=== PATIENT | male | born 1950 | race Caucasian/White ===

== ENCOUNTER 2017-05-01 06:27 | Inpatient (IN) | payer OTHER ==
[~2017-05-01] VITALS: Ht 180.3 cm; Wt 87.5 kg
[~2017-05-01 06:27] MED LIST: ACETAZOLAMIDE250 M1 PO; ALBUTEROL2.5 MG/3 M INH/SOL; ASPIRIN81 M4 PO; AZITHROMYCIN250 MG PO; CARDIZEM CD240 M1 PO; CARDIZEM CD360 MG PO; DELTASONE20 MG PO; DIAMOX SEQUELS500 MG PO; DIGITEK250 MCG PO; DIGOXIN0.25 MG PO; DOK100 MG PO; FERROUS SULFAT325 M1 PO; FERROUS SULFAT325 M2 PO; FLUTICASONE PRO16 GM NAS; FUROSEMIDE20 MG PO; FUROSEMIDE40 M1 PO; GLIMEPIRIDE2 MG PO; GLUCOPHAGE1000 M1 PO; LANOXIN-DIGO0.125 MG PO; LASIX20 M1 PO; LASIX40 M1 PO; LEVEMIR100 U/ML SC; LIPITOR10 M1 PO; LISINOPRIL10 MG PO; METFORMIN HCL1000 M1 PO; METFORMIN HCL500 MG PO; MOXIFLOXACIN H400 M2 PO; NOVOLOG FL100 UNIT/1 SC; NOVOLOG100 U/ML SC; NOVOLOG100 UNIT/2 SC; POTASSIUM CHLO20 ME2 PO; PREDNISONE1 MG; PREDNISONE1 MG PO; PREDNISONE10 M2 PO; PREDNISONE10 MG PO; PREDNISONE20 M1 PO; PREDNISONE5 M1 PO; PROAIR HFA8.5 GM INH; PROTONIX40 M3 PO; SENNA PLUS 50 M1 TAB PO; SPIRIVA18 MCG INH; SYMBICORT 16010.2 GM INH; XARELTO20 M2 PO; ZITHROMAX250 M2 PO
--- NOTE | 2017-05-01 06:32 | NUR ---
PT'S SP02 AT [facility] WAS 82%
--- NOTE | 2017-05-01 06:52 | NUR ---
EKG DONE IN [place] AND SHOWN TO DR. JOSHI, PT TO ERm#11 VIA STRETCHER.
--- NOTE | 2017-05-01 06:55 | NUR ---
SOB SINCE MONDAY WORSE OVER WEEKEND WITH LETHARGY OVER PAST 24 TO 36 HOURS CHEST PAIN WITH NON PRODUCTIVE COUGH, NON RADIATIONAL
--- NOTE | 2017-05-01 07:01 | ED DYSPNEA/ASTHMA COMPLAINT ---
History of Present Illness General Chief Complaint: Dyspnea (COPD, CHF, Other) Stated Complaint: "PER PT SOB, CP" Source: patient, family Exam Limitations: no limitations Vital Signs & Intake/Output Vital Signs & Intake/Output Vital Signs Date Time Temp Pulse Resp B/P B/P Pulse O2 O2 Flow FiO2 Mean Ox Delivery Rate 05/01 1930 80 92 05/01 1830 BIPAP 35% 05/01 1830 86 92/58 05/01 1715 Nasal 3.5L Cannula 05/01 1604 94 BIPAP 35% 05/01 1600 92 BIPAP 35% 05/01 1600 92 BIPAP 35% 05/01 1600 67 92 05/01 1440 99 96 05/01 1430 BIPAP 40% 05/01 1254 112 92 05/01 1252 97.9 107 23 126/75 90 BIPAP 40% 05/01 1233 96.7 104 18 136/84 93 Nasal 5.0L Cannula 05/01 1126 104 18 129/73 92 Nasal 5.0L Cannula 05/01 0930 123 24 155/71 91 Nasal 5.0L Cannula 05/01 0927 90 Nasal 4.0L Cannula 05/01 0731 97.8 123 20 134/75 97 Room Air 05/01 0653 98.7 123 26 139/84 82 Nasal 4.0L Cannula Allergies Coded Allergies: NO KNOWN ALLERGIES (02/05/16) Triage Note: SOB SINCE MONDAY WORSE OVER WEEKEND WITH LETHARGY OVER PAST 24 TO 36 HOURS CHEST PAIN WITH NON PRODUCTIVE COUGH, NON RADIATIONAL Triage Nurses Notes Reviewed? yes Onset: Gradual Duration: day(s):, getting worse, waxing and waning Timing: recent history Severity: moderate Activities at Onset: none Prior Episodes/Possible Cause: occasional episodes Modifying Factors: Improves With: rest. Associated Symptoms: cough HPI: 66 yo gentleman h/o afib, presents with cough, shortness of breath x 4 days, getting worse this morning. He notes chest pain with coughing. He has no syncopal symptoms. His chest pain does not radiate. He is otherwise well. (ADI CR,JOHNNY Lunsford) Reconcile Medications Albuterol Sulfate (Proair Hfa) 90 MCG HFA.AER.AD 2 PUF INH Q4-6 PRN PRN SHORTNESS OF BREATH (Reported) Albuterol Sulfate 2.5 MG/3 ML (0.083 %) VIAL.NEB 1 Vial INH/ABILIO Q4P PRN SHORTNESS OF BREATH (Reported) Aspirin (Aspirin*) 81 MG TAB.CHEW 1 TAB PO DAILY HEART HEALTH (Reported) Atorvastatin Calcium (Lipitor) 10 MG TABLET 1 TAB PO DAILY CHOLESTEROL ( Reported) Budesonide/Formoterol Fumarate (Symbicort 160-4.5 Mcg Inhaler) 160 MCG-4.5 MCG/ ACTUATION HFA.AER.AD 2 PUF INH BID SHORTNESS OF BREATH (Reported) Diltiazem HCl (Cardizem Cd) 240 MG CAP.ER.24H 480 MG PO DAILY Atrial fibrillation Ferrous Sulfate 325 MG TABLET.DR 325 MG PO BID Iron supplement Furosemide (Lasix) 40 MG TABLET 1 TAB PO BID Water pill Insulin Aspart (Novolog) 100 UNIT/1 ML VIAL 0 UNITS SC TIDAC blood sugars <200mg/dl - no insulin 201-250mg/dl - 2units 251-300mg/dl - 4units 301-350mg/dl- 6units 351-400mg/dl - 8units >400mg/dl - 10units Mealtime scale Metformin HCl (Glucophage) 1,000 MG TABLET 1 TAB PO BID DIABETES (Reported) Pantoprazole Sodium (Protonix) 40 MG TABLET.DR 1 TAB PO DAILY ACID REFLUX ( Reported) Rivaroxaban (Xarelto) 20 MG TABLET 1 TAB PO DAILY BLOOD THINNER (Reported) with food Tiotropium [place] (Spiriva) 18 MCG CAP.W.DEV 1 CAP INH DAILY SHORTNESS OF BREATH (Reported) (MICHELLE CR,HUMBERTO) Past History Travel History Traveled to [place] past 21 day No Medical History Any Pertinent Medical History? 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 FATHER, ; Cause: Myocardial infarct. SISTER, ; Cause: Myocardial infarct. Hx Contributory? No (ADI CR,JOHNNY Lunsford) Review of Systems Review of Systems Constitutional: Reports: no symptoms. EENTM: Reports: no symptoms. Respiratory: Reports: no symptoms. Cardiovascular: Reports: no symptoms. GI: Reports: no symptoms. Genitourinary: Reports: no symptoms. Musculoskeletal: Reports: no symptoms. Skin: Reports: no symptoms. Neurological/Psychological: Reports: no symptoms. Hematologic/Endocrine: Reports: no symptoms. Immunologic/Allergic: Reports: no symptoms. All Other Systems: Reviewed and Negative (JOHNNY JOSHI MD) Physical Exam Physical Exam General Appearance: well developed/nourished, mild distress Head: atraumatic, normal appearance Eyes: Bilateral: normal appearance. Ears, Nose, Throat: normal pharynx, normal ENT inspection Neck: normal inspection, supple, full range of motion Respiratory: normal breath sounds, rhonchi Cardiovascular: irregularly irregular, tachycardic Gastrointestinal: normal bowel sounds, soft, non-tender, no organomegaly Extremities: normal inspection Neurologic/Psych: no motor/sensory deficits, awake, alert, oriented x 3 Skin: intact, normal color, warm/dry Core Measures ACS in differential dx? No Severe Sepsis Present: No Septic Shock Present: No (ADI CR,JOHNNY Lunsford) Progress Differential Diagnosis: asthma, AMI, costochondritis, CHF, COPD, pulmonary embolism Plan of Care: Orders Procedure Date/time Status CBC WITHOUT DIFFERENTIAL 05/02 0600 Active BASIC ELECTROLYTES PLUS BUN&CR 05/02 0600 Active Heart Healthy Diet 05/01 L Complete Consistent Carbohydrate 3 05/01 D Active TROPONIN LEVEL 05/01 1800 Active EKG 05/01 1800 Active BIPAP 05/01 1600 Complete Teach/Educate 05/01 1559 Active Pain Treatment and Response 05/01 1559 Active Nutritional Intake, Monitor 05/01 1559 Active Isolation 05/01 1559 Active Patient Care Conference 05/01 1559 Active Activity/Ambulation 05/01 1559 Active CULTURE,URINE 05/01 1503 Active TROPONIN LEVEL 05/01 1300 Complete EKG 05/01 1300 Active RT: Reevaluation 05/01 1254 Active RT: Evaluation 05/01 1254 Active CULTURE,URINE 05/01 1236 Active Add-on Test (ER Only) 05/01 1153 Active Weight 05/01 1110 Active Intake & Output 05/01 1110 Complete FingerStick- Glucose 05/01 1107 Active ECHOCARDIOGRAM 05/01 1107 Active TRC EVALUATION (GEN) 05/01 1104 Complete LEGIONELLA URINARY ANTIGEN 05/01 1104 Complete LOWER RESPIRATORY CULTURE 05/01 1104 Active BLOOD CULTURE 05/01 1104 Active Add-on Test (ER Only) 05/01 1054 Active Pathway - chart 05/01 0952 Active House Staff 05/01 0952 Active Patient Data 05/01 0952 Active Code Status 05/01 0952 Active Patient Data 05/01 0944 Active ED Holding Orders 05/01 0942 Active Admit to inpatient 05/01 0942 Active Vital Signs 05/01 0942 Active Code Status 05/01 0942 Complete Intake & Output 05/01 0930 Active LEGIONELLA URINARY ANTIGEN 05/01 0930 Complete RT ED ORDERS 05/01 0926 Active URINALYSIS 05/01 0838 Complete BLOOD CULTURE 05/01 0703 Active B-TYPE NATRIURETIC PEP (BNP) 05/01 0700 Complete TROPONIN LEVEL 05/01 0648 Complete PARTIAL THROMBOPLASTIN TIME 05/01 0648 Complete PROTHROMBIN TIME 05/01 0648 Complete LIPASE 05/01 0648 Complete HEPATIC FUNCTION PANEL 05/01 0648 Complete CBC WITHOUT DIFFERENTIAL 05/01 0648 Complete BASIC METABOLIC PANEL 05/01 0648 Complete AMYLASE 05/01 0648 Complete EKG 05/01 0631 Active THERAPIST ORDERS 05/01 UNK Complete OXYGEN SETUP (GEN) 05/01 UNK Complete BIPAP 05/01 UNK Complete ARTERIAL BLOOD GAS (GEN) 05/01 UNK Complete ARTERIAL BLOOD GAS (GEN) 05/01 UNK Active VTE Mechanical Prophylaxis 05/01 UNK Active Telemetry/Dispensary Clerk 05/01 UNK Active Nursing Misc 05/01 UNK Active Streeter, Insertion/Removal/Asses 05/01 UNK Active Current Medications Sig/Eve Start time Last Medication Dose Stop Time Status Admin Atorvastatin Calcium 10 MG 1700 05/02 1700 AC (Lipitor) Aspirin 81 MG DAILY 05/02 1000 AC (Aspirin) Diltiazem HCl 480 MG DAILY 05/02 1000 AC (Cardizem CD) Rivaroxaban 20 MG DAILY 05/02 1000 AC (Xarelto) Tiotropium [place] 1 PUF DAILY 05/02 1000 AC (Spiriva) Furosemide 40 MG 7:30 AM, & 4:30 PM 05/02 0730 AC (Lasix) Omeprazole 40 MG DAILY AC 05/02 0700 AC (Prilosec) Budesonide/ 2 PUF BID 05/01 2200 AC Formoterol Fumarate (Symbicort) Ferrous Sulfate 325 MG BID 05/01 2200 AC (Feosol) Furosemide 40 MG BID 05/01 2200 CAN (Lasix) Furosemide 40 MG 7:30 AM, & 4:30 PM 05/01 1630 AC 05/01 (Lasix) 05/01 2300 1740 Albuterol Sulfate 3 ML EVERY 4 HRS/AWAKE 05/01 1600 AC 05/01 (Proventil) 2010 Methylprednisolone 40 MG Q8 05/01 1400 AC 05/01 (Solumedrol) 1433 Insulin Aspart 0 TIDAC 05/01 1200 AC 05/01 (NovoLOG) 1739 Diltiazem HCl 125 MG Q24H 05/01 1145 AC 05/01 (Cardizem DRIP) 1150 Sodium Chloride 100 ML (Normal Saline 0.9%) Albuterol Sulfate 2 PUF Q4-6 PRN PRN 05/01 1115 AC (Ventolin) Albuterol Sulfate 3 ML Q4P PRN 05/01 1115 AC (Proventil) Azithromycin 500 MG DAILY 05/01 1105 AC 05/01 (Zithromax) 1216 Sodium Chloride 250 ML (Normal Saline 0.9%) Ceftriaxone Sodium 1,000 MG DAILY 05/01 1105 AC 05/01 (Rocephin) 1149 Acetaminophen 325 MG Q6 PRN 05/01 1000 AC (Tylenol) Morphine Sulfate 1 MG Q4 PRN 05/01 1000 AC (Morphine) Oxycodone HCl 5 MG Q6 PRN 05/01 1000 AC (Roxicodone) Laboratory Tests 05/01/177: Troponin I Pending 05/01/17 1710: pH 7.34 L, pCO2 54 H, pO2 70 L, HCO3 28, ABG O2 Sat (Measured) 93.0 L, P-50 (Temp Corrected) N, Carboxyhemoglobin 0.3 L, O2 Concentration % 35%, Temperature 97.9, Respiration Rate 22, O2 Delivery Method BIPAP, Vent Mode ST, Expiratory Pressure 6, Inspiratory Pressure 18, Phlebotomy Draw Site LEFT BRACHIAL 05/01/17 1435: Troponin I 0.03 05/01/17 1200: pH 7.28 *L, pCO2 65 *H, pO2 78 L, HCO3 30 H, ABG O2 Sat (Measured) 95.0 L, Carboxyhemoglobin 1.4 L, O2 Concentration % 5L, O2 Delivery Method NC, Phlebotomy Draw Site LEFT RADIAL 05/01/17 1046: Non-O-Fuxynimulvj Pept Cancelled 05/01/17 0930: Urine Color YEL, Urine Clarity CLEAR, Urine pH 6.0, Ur Specific [place] 1.015, Urine Protein NEG, Urine Ketones NEG, Urine Nitrite NEG, Urine Bilirubin NEG, Urine Urobilinogen 0.2, Ur Leukocyte Esterase NEG, Ur Microscopic EXAM NOT REQUIRED, Urine Hemoglobin NEG, Urine Glucose NEG 05/01/17 0700: Anion Gap 11, Estimated GFR 55 L, BUN/Creatinine Ratio 17.7, Glucose 131 H, Calcium 9.0, Total Bilirubin 0.5, Direct Bilirubin 0.3, AST 12 L, ALT 38, Alkaline Phosphatase 89, Troponin I 0.03, Bwk-O-Tcmooyfzthr Pept 90398 H, Total Protein 6.0 L, Albumin 3.5, Amylase < 30 L, Lipase 12 L, PT 24.1 H, INR 2.31 H, APTT 39 H, CBC w Diff MAN DIFF ORDERED, RBC 3.38 L, MCV 84.4, MCH 27.0, RDW 16.2 H, MPV 8.5, Gran % 85.7 H, Lymphocytes % 6.2 L, Monocytes % 7.8, Eosinophils % 0.1, Basophils % 0.2, Absolute Granulocytes 12.1 H, Absolute Lymphocytes 0.9 L, Absolute Monocytes 1.1 H, Absolute Eosinophils 0, Absolute Basophils 0, Platelet Estimate ADEQUATE, Hypochromic-Microcytic 1+, Poikilocytosis 1+, Anisocytosis 1+, PUBS MCHC 32.0 L Microbiology 05/01 1503 URINE ROUT: Urine Culture - COLB 05/01 1500 URINE ROUT: Urine Culture - RECD 05/01 1500 URINE ROUT: Legionella Antigen - COMP 05/01 1125 BLOOD: Blood Culture - RECD 05/01 1118 BLOOD: Blood Culture - RECD 05/01 1104 LOWER RESP: Respiratory Culture - COLB 05/01 1104 LOWER RESP: Gram Stain - COLB 06/12 0930 URINE ROUT: Legionella Antigen - COMP 05/01 703 BLOOD: Blood Culture - ORD 05/01 700 BLOOD: Blood Culture - CAN Cancelled: Quantity not sufficient for both blood culture bottles. 8:[address] ZUNIGA PAGEStevie FOR ADMISSION. 9:30 AM D/W DR NEWBERRY. HOSPITALIST PAGED. (MICHELLE CR,HUMBERTO) Diagnostic Imaging: Viewed by Me: Radiology Read. Discussed w/RAD: Radiology Read. Initial ED EKG: afib, rapid ventricular response Hand-Off Endorsed To: HUMBERTO MARTINEZ MD Endorsed Time: 07 Pending: labs, Xray (ADI CR,JOHNNY Lunsford) Diagnostic Imaging: Viewed by Me: CT Scan. Discussed w/RAD: CT Scan. Radiology Impression: CT CHEST - LEFT SIDED PNEUMONIA, INCREASED LEFT PLEURAL EFFUSION, STABLE LYMPHADENOPATHY CXR Impression: PATIENT: COURTNEY MURCIA PRESENT AGE: 66 PATIENT ACCOUNT NO: [id number] : 49 LOCATION: [facility] ORDERING PHYSICIAN: JOHNNY JOSHI MD SERVICE DATE: 05/01/17 EXAM TYPE: RAD - XRY- PORTABLE CHEST XRAY EXAMINATION: XR PORTABLE CHEST CLINICAL INFORMATION: Dyspnea COMPARISON: Chest radiograph 08/09/[address] thorax 2015. TECHNIQUE: Portable AP upright view of the chest was obtained. FINDINGS: The cardiac silhouette is enlarged without change from prior. Dense retrocardiac opacification is unchanged in comparison to prior as are the chronic interstitial markings bilaterally and emphysematous change in the right lung. Chronic blunting of the costophrenic angles is more notable on the right side. No obvious superimposed process. IMPRESSION: Extensive underlying chronic changes limits evaluation. There remains dense retrocardiac opacification and extensive interstitial changes throughout the bilateral lungs. If there is a high index of clinical concern, follow-up CT of the thorax could be obtained. DICTATED BY: KAYLA CABRERA MD DATE/TIME DICTATED:05/01/17739 NETWORK PROJECT MANAGER:LINDY DATE/TIME TRANSCRIBED:05/01/17739 CONFIDENTIAL, DO NOT COPY WITHOUT APPROPRIATE AUTHORIZATION. <Electronically signed in Other Vendor System> SIGNED BY: KAYLA CABRERA MD 05/01/1747 (HUMBERTO MARTINEZ MD) Departure Departure Disposition: STILL A PATIENT Condition: Stable Referrals: IRMA LANZA (PCP/Family) Departure Forms: Customer Survey General Discharge Information (ADI CR,JOHNNY Lunsford) Departure Time of Disposition: 939 Clinical Impression Primary Impression: Atrial fibrillation with rapid ventricular response Secondary Impressions: COPD exacerbation, Pneumonia Admission Note Spoke With: DEEPIKA CR,HOMERO Schuster Documentation of Exam: Documentation of any treatments & extenuating circumstances including Concerns Regarding Discharge (functional status, medication knowledge or non-compliance, living conditions, etc.) that warrant an admission rather than observation: [ TELE MONITOR, SERIAL EKG/TROPONIN, F/U CT CHEST RESULTS, CARDIOLOGY CONSULTATION , PULMONARY CONSULTATION, CONSIDER ECHOCARDIOGRAM] (HUMBERTO MARTINEZ MD) Critical Care Note Critical Care Note Critical Care Time: non-applicable (ADI CR,JOHNNY Lunsford) Critical Care Note Critical Care Time: 30-74 min (HUMBERTO MARTINEZ MD)
--- NOTE | 2017-05-01 07:05 | NUR ---
SOB AT REST, PLACED ON 5 LITERS NC ON WALL PT TANK IS LOW. GIVEN BACK HER TUBING
[2017-05-01 07:22] LABS: ABSOLUTE BASOPHIL COUNT 0 /CUMM (0.0-0.2); ABSOLUTE EOSINOPHIL COUNT 0 /CUMM (0.0-0.7); ABSOLUTE GRANULOCYTE CT 12.1 /CUMM (1.4-6.5); ABSOLUTE LYMPH COUNT 0.9 /CUMM (1.2-3.4); ABSOLUTE MONOCYTE COUNT 1.1 /CUMM (0.10-0.60); BASOPHIL % 0.2 % (0.0-2.0); EOSINOPHIL % 0.1 % (0-5); GRANULOCYTE % 85.7 % (42.2-75.2); HEMATOCRIT 28.5 % (42-52); MEAN CORPUSCULAR VOLUME 84.4 FL (80.0-94.0); MEAN PLATELET VOLUME 8.5 FL (7.4-10.4); PLATELET COUNT 242 /CUMM (130-400); RBC DISTRIBUTION WIDTH 16.2 % (11.5-14.5); RED BLOOD CELL CT 3.38 /CUMM (4.70-6.10); WHITE BLOOD CELL COUNT 14.1 /CUMM (4.8-10.8)
--- NOTE | 2017-05-01 07:24 | NUR ---
PER LAB POOR FILL ON 1ST SET BLOOD CULTURES. GOLDEN HUDSON RN AWARE.
--- NOTE | 2017-05-01 07:47 | RADIOLOGY REPORT ---
EXAMINATION: XR PORTABLE CHEST CLINICAL INFORMATION: Dyspnea COMPARISON: Chest radiograph 08/09/[address] thorax 08/09/2016. TECHNIQUE: Portable AP upright view of the chest was obtained. FINDINGS: The cardiac silhouette is enlarged without change from prior. Dense retrocardiac opacification is unchanged in comparison to prior as are the chronic interstitial markings bilaterally and emphysematous change in the right lung. Chronic blunting of the costophrenic angles is more notable on the right side. No obvious superimposed process. IMPRESSION: Extensive underlying chronic changes limits evaluation. There remains dense retrocardiac opacification and extensive interstitial changes throughout the bilateral lungs. If there is a high index of clinical concern, follow-up CT of the thorax could be obtained.
--- NOTE | 2017-05-01 07:52 | NUR ---
ASSUMED CARE OF PT WHO IS SLEEPING AT THIS TIME WITH REGULAR RESPIRATIONS AND EQUAL CHEST RISE AND FALL NOTED. SAT 94-96% ON 5L. DENIES PAIN. REMAINS AFIB ON MONITOR, RATE 120'S PER MD MICHELLE, NO NEED TO DRAW BC AT THIS TIME AWAITING RAIN ORTIZ FROM PHARMACY AT THIS TIME.
--- NOTE | 2017-05-01 08:08 | NUR ---
MED WITH ASA, LASIX AND SOLU MEDROL PER JAN. PT STATES "I FEEL GOOD, BETTER". SAT 95% ON 5L (BASELINE 4L AT HOME PER PT) URINAL AT BEDSIDE AWARE AWAITING CT SCAN THIS MORNING
--- NOTE | 2017-05-01 08:30 | NUR ---
CONTINUE TO AWAIT CARDIRUDDYM DRIP PER PHARMACY, ELECTRONICS SPECIALIST PICKING UP AT THIS TIME
[2017-05-01 08:38] LABS: PT 24.1 SEC (9.4-12.5); PTT 39 SEC (25-37)
--- NOTE | 2017-05-01 08:41 | NUR ---
CARDIZEM DRIP INITIATED AT THIS TIME, 10MG/HR - 10 ML/HR PER MD MARTINEZ. MED AND DOSE VERIFIED WITH RN DEA Jain/Freddie PRIOR 138/73. HR 108-122 PT REQUESTING AND GIVEN CUP OF WATER - OK WITH . AWAITING CT SCAN.
--- NOTE | 2017-05-01 09:29 | NUR ---
TAKEN TO CT SCAN. HR PRIOR LOW 100'S. DURING CT SCAN, WITH PT LAYING FLAT, PT BECAME VERY SOB WITH INCREASED WORK OF BREATHING AND ABDOMINAL RETRACTIONS NOTED. REQUESTING MORE 02. BROUGHT BACK TO ROOM 11 AND MET IN ROOM BY RT Alfa ARAGON IN PROGRESS PER MD MICHELLE. HR UP TO 120'S-130'S CARDIZEM DRIP CONTINUES AT 10MG/HR AT THIS TIME PER MD.
--- NOTE | 2017-05-01 09:48 | NUR ---
PT REPORTS IMPROVEMENT IN BREATHING S/P [place] MED WITH PO CARDIZEM AND PO XARELTO PER JAN. PT AND BOTH CONFIRM DOSES OF MEDICATIONS AND STATE PT HAS NOT TAKEN TODAY. SOUP ORDERED PER REQUEST, OK WITH HR NOW 100-120.
--- NOTE | 2017-05-01 10:55 | NUR ---
HR NOW LOW 100'S. DRIP MAINTAINED AT 10 MG/HR.
--- NOTE | 2017-05-01 10:59 | History & Physical ---
MCKAYLAYADIRANICOLE 05/01/17 1035: General Information and HPI MD Statement: I have seen and personally examined COURTNEY VIEIRA and documented this H&P. The patient is a 66 year old M who presented with a patient stated chief complaint of [shortness of breath]. Source of Information: patient, family, old records Exam Limitations: no limitations History of Present Illness: Mr. 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 Patient reports that he had a blood draw on (04/27/17) and since that day started having dry cough and shortness of breath. His dyspnea worsened over the day and called his reading efficiency course director Dr. Banks's office regarding the same. He took prednisone as per his reading efficiency course director recommendation for 3 days, 40mg(Mon), 40mg (Mon)and 30mg(Mon) with no improvement in his respiratory status. He denied any fever, chills, productive cough, nausea, vomiting, headache, urinary or bowel symptoms. He does endorse atypical chest discomfort, which started yesterday in the center of this chest, and lasted for about 1 hour. There was no radiation, and no associated diaphoresis. He feels it's more likely secondary to intense coughing which has been going on. Denies any recent sick contacts, recent travel, and noncompliance to medications. In the ED vitals at presentation showed a temperature of 98.7, pulse 123, respiration 26, blood pressure 139/84, saturating 82% on 4 L nasal cannula. Labs showed a white count of 14.4 with no bands, H&H 9.1/28.5(chronic), sodium 143, potassium 3.7, BUN 23, creatinine 1.3 (baseline 0.7), troponin 0.03, proBNP pending, INR 2.31, UA benign. EKG showed: A. fib with a rate of 148, nonsignificant ST changes, QTC 515 Chest x-ray showed dense retrocardiac opacification and extensive interstitial changes throughout bilateral lungs which are all chronic. Patient received 40 IV Lasix, 125 Solu-Medrol, aspirin, nebulizer treatment in the ED and was started on a Cardizem drip. Allergies/Medications Allergies: Coded Allergies: NO KNOWN ALLERGIES (02/05/16) Home Med list Albuterol Sulfate (Proair Hfa) 90 MCG HFA.AER.AD 2 PUF INH Q4-6 PRN PRN SHORTNESS OF BREATH (Reported) Albuterol Sulfate 2.5 MG/3 ML (0.083 %) VIAL.NEB 1 Vial INH/ABILIO Q4P PRN SHORTNESS OF BREATH (Reported) Aspirin (Aspirin*) 81 MG TAB.CHEW 1 TAB PO DAILY HEART HEALTH (Reported) Atorvastatin Calcium (Lipitor) 10 MG TABLET 1 TAB PO DAILY CHOLESTEROL ( Reported) Budesonide/Formoterol Fumarate (Symbicort 160-4.5 Mcg Inhaler) 160 MCG-4.5 MCG/ ACTUATION HFA.AER.AD 2 PUF INH BID SHORTNESS OF BREATH (Reported) Diltiazem HCl (Cardizem Cd) 240 MG CAP.ER.24H 480 MG PO DAILY Atrial fibrillation Ferrous Sulfate 325 MG TABLET.DR 325 MG PO BID Iron supplement Furosemide (Lasix) 40 MG TABLET 1 TAB PO BID Water pill Insulin Aspart (Novolog) 100 UNIT/1 ML VIAL 0 UNITS SC TIDAC blood sugars <200mg/dl - no insulin 201-250mg/dl - 2units 251-300mg/dl - 4units 301-350mg/dl- 6units 351-400mg/dl - 8units >400mg/dl - 10units Mealtime scale Metformin HCl (Glucophage) 1,000 MG TABLET 1 TAB PO BID DIABETES (Reported) Pantoprazole Sodium (Protonix) 40 MG TABLET.DR 1 TAB PO DAILY ACID REFLUX ( Reported) Rivaroxaban (Xarelto) 20 MG TABLET 1 TAB PO DAILY BLOOD THINNER (Reported) with food Tiotropium [place] (Spiriva) 18 MCG CAP.W.DEV 1 CAP INH DAILY SHORTNESS OF BREATH (Reported) Past History Travel History Traveled to [place] past 21 day No Medical History Neurological: NONE EENT: NONE Cardiovascular: AFIB, CHF, hypertension, hyperlipidemia Respiratory: COPD, 3-3.5L O2 DEPENDENT BIPAP AT NIGHT Gastrointestinal: GERD, ABD ANEURYSM Hepatic: NONE Renal: NONE Musculoskeletal: NONE Psychiatric: NONE Endocrine: diabetes Blood Disorders: NONE Cancer(s): NONE SUPERVISOR FILM PROCESSING/Reproductive: NONE History of MRSA: No History of VRE: No History of CDIFF: No Pneumonia Vaccine: 04/22/16 Surgical History Surgical History: cataract removal, PROSTATE SURGERY AAA TONSILLECTOMY Past Family/Social History Family History Relations & Conditions if any MOTHER, ; Cause: COPD (chronic obstructive pulmonary disease). FATHER, ; Cause: Myocardial infarct. SISTER, ; Cause: Myocardial infarct. Psychosocial History Who Do You Live With? self Services at Home: None Primary Language: Chinese Functional Ability ADLs Independent: dressing, eating, toileting, bathing. Ambulation: independent IADLs Independent: shopping, housework, finances, food prep, telephone, transportation , medication admin. Review of Systems Review of Systems Constitutional: Reports: malaise, weakness. EENTM: Reports: no symptoms. Cardiovascular: Reports: no symptoms. Respiratory: Reports: short of breath, wheezing. GI: Reports: no symptoms. Genitourinary: Reports: no symptoms. Musculoskeletal: Reports: no symptoms. Skin: Reports: no symptoms. Neurological/Psychological: Reports: no symptoms. Exam & Diagnostic Data Last 24 Hrs of Vital Signs/I&O Vital Signs Date Time Temp Pulse Resp B/P B/P Pulse O2 O2 Flow FiO2 Mean Ox Delivery Rate 05/01 0930 123 24 155/71 91 Nasal 5.0L Cannula 05/01 0927 90 Nasal 4.0L Cannula 05/01 0731 97.8 123 20 134/75 97 Room Air 05/01 0653 98.7 123 26 139/84 82 Nasal 4.0L Cannula Intake & Output 05/01 1600 05/01 0800 05/01 0000 Intake Total Output Total 200 Balance -200 Output, Urine 200 Patient 83.915 kg Weight Weight Reported by Patient Measurement Method Physical Exam General Appearance Alert, Oriented X3, Cooperative, Moderate Distress Skin No Rashes, No Breakdown, No Significant Lesion Skin Temp/Moisture Exam: Warm/Dry Sepsis Skin Exam (color): Normal for Ethnicity HEENT Atraumatic, PERRLA, nasal cannula Neck Supple, No JVD Lymphatic Cervical nl Cardiovascular Normal S1, Normal S2, irregularly irregular HR Lungs DECREASED AIR ENTRY BILATERALLY, OCCASIONAL WHEEZING Abdomen Normal Bowel Sounds, Soft Neurological Strength at 5/5 X4 Ext, Normal Tone Extremities No Clubbing, No Cyanosis, No Edema Last 24 Hrs of Labs/Sridhar: Laboratory Tests 05/01/17 0930: Urine Color YEL, Urine Clarity CLEAR, Urine pH 6.0, Ur Specific Axis 1.015, Urine Protein NEG, Urine Ketones NEG, Urine Nitrite NEG, Urine Bilirubin NEG, Urine Urobilinogen 0.2, Ur Leukocyte Esterase NEG, Ur Microscopic EXAM NOT REQUIRED, Urine Hemoglobin NEG, Urine Glucose NEG 05/01/17 0700: Anion Gap 11, Estimated GFR 55 L, BUN/Creatinine Ratio 17.7, Glucose 131 H, Calcium 9.0, Total Bilirubin 0.5, Direct Bilirubin 0.3, AST 12 L, ALT 38, Alkaline Phosphatase 89, Troponin I 0.03, Total Protein 6.0 L, Albumin 3.5, Amylase < 30 L, Lipase 12 L, PT 24.1 H, INR 2.31 H, APTT 39 H, CBC w Diff MAN DIFF ORDERED, RBC 3.38 L, MCV 84.4, MCH 27.0, RDW 16.2 H, MPV 8.5, Gran % 85.7 H, Lymphocytes % 6.2 L, Monocytes % 7.8, Eosinophils % 0.1, Basophils % 0.2, Absolute Granulocytes 12.1 H, Absolute Lymphocytes 0.9 L, Absolute Monocytes 1.1 H, Absolute Eosinophils 0, Absolute Basophils 0, Platelet Estimate ADEQUATE, Hypochromic-Microcytic 1+, Poikilocytosis 1+, Anisocytosis 1+ , PUBS MCHC 32.0 L Microbiology 05/01 703 BLOOD: Blood Culture - ORD 05/01 07 BLOOD: Blood Culture - CAN Cancelled: Quantity not sufficient for both blood culture bottles. Assessment/Plan Assessment: Mr. 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 In the ED vitals at presentation showed a temperature of 98.7, pulse 123, respiration 26, blood pressure 139/84, saturating 82% on 4 L nasal cannula. Labs showed a white count of 14.4 with no bands, H&H 9.1/28.5(chronic), sodium 143, potassium 3.7, BUN 23, creatinine 1.3 (baseline 0.7), troponin 0.03, ProBNP level 38760, INR 2.31, UA benign. AB. EKG showed: A. fib with a rate of 148, nonsignificant ST changes, QTC 515 Chest x-ray showed dense retrocardiac opacification and extensive interstitial changes throughout bilateral lungs which are all chronic. Patient received 40 IV Lasix, 125 Solu-Medrol, aspirin, nebulizer treatment in the ED and was started on a Cardizem drip. Plan #1 Acute hypoxic hypercarbic respiratory failure likely secondary to COPD exacerbation vs PNA Vs CHF -Admit patient to telemetry for close monitoring -Vitals per protocol -AB start BIPAP( patient uses nocturnal bipap) -Maintain saturations above 92% -Received 125 SoluMedrol in the ED. Continue 40 every 8 hours for now. -Continue nocturnal BiPAP -TRC nebs [id number] -Continue home medications Symbicort and Spiriva -At this time there appears to be no infectious process, however will give patient 1 dose of ceftriaxone and azithromycin given questionable retrocardiac opacity on chest x-ray -Obtain blood cultures, sputum cultures -Urine for strep and legionella -Pulmonology consult with Dr. Banks #2 Atrial fibrillation with rapid RVR: Likely secondary to worsening dyspnea. Patient does not appear to be in florid heart failure at this point given euvolemic exam. -Patient started on a Cardizem drip in the ED. Continue to home medication Cardizem 480 daily along with the drip so that it can be titrated off. Pt got 480 mg in ED. -Continue Xarelto for anticoagulation.Got today's dose. -3 sets of troponin and EKG to rule out ACS -Cardiology consult with Dr. Walton has been placed #3 History of heart failure with reduced ejection fraction patient appears euvolemic and exam at this point.No pulmonary edema on chest x-ray -Last echo 2015 showed EF 45%, decreased global function, RV pressure 45 mm -ProBNP level 17160 -Pt got IV 40 mg in the ED, continue 40 MG iv today and PO from tomorrow. Closely monitor renal function. -Strict I's and O's , weight checks -3 sets of troponin and EKG to rule out ACS -Repeat echocardiogram -Cardiology is consult with Dr. Walton #4 Diabetes mellitus -3 times a day Accu-Cheks -Hold metformin -NovoLog sliding scale #5 Acute kidney injury: Creatinine 1.3 at presentation. Baseline 0.7 -Closely monitor the BeP. We'll hold off on any fluids at this time. -Avoid nephrotoxins #6 Microcytic anemia -Chronic -Continue iron tablets #7 Hyperlipidemia -Continue home medications DVT prophylaxis Xarelto Full code Diabetic diet As Ranked By This Provider Problem List: 1. COPD exacerbation 2. Atrial fibrillation with rapid ventricular response 3. CHF (congestive heart failure) 4. HTN (hypertension) 5. Hyperlipidemia Core Measures/Miscellaneous Acute Coronary Syndrome ACS Diagnosis: No Cerebrovascular Accident CVA/TIA Diagnosis: No Congestive Heart Failure CHF Diagnosis: No VTE (View Protocol) VTE Risk Factors: Age > 40 No [facility] VTE prophylaxis d/t: No contraindications No VTE Pharm Prophylaxis d/t: VTE low risk (on xarelto), No contraindications VTE Diagnosis: No VTE Type: NONE VTE Confirmed by (Test): NONE Sepsis (View Protocol) Severe Sepsis Present: No Septic Shock Septic Shock Present: No Miscellaneous Documentation Attending Case Discussed With: AMALIA KRAMER M.D Primary Care Physician: IRMA LANZA Patient sees these Specialists dr banks Level of Patient Care: Telemetry AMALIA KRAMER MD 05/01/17 1704: Attending Review Statement Attending Statement Attending MD Statement: examined this patient, discuss w/resident/PA/INFANT NANNY, agreed w/resident/PA/INFANT NANNY, reviewed EMR data (avail), discussed with nursing, discussed with case mgmt, amended to note Attending Assessment/Plan: 66-year-old male with history of oxygen dependent advanced COPD on BiPAP therapy at bedtime only, atrial fibrillation on anticoagulation. according to the patient's he has been having progressive lethargy for the past 3-4 days. He has also been getting progressively more short of breath. Over the weekend his reading efficiency course director called in a prescription of prednisone however he did not get better His condition worsened and was brought to the emergency room for evaluation. In the emergency room was found to be in acute hypoxic respiratory failure and atrial fibrillation with rapid ventricular rate. He was started on BiPAP therapy and referred to the inpatient medical service for further management. On examination patient is lethargic but oriented 3. He did not appear to be in respiratory distress. BiPAP therapy was in place. Lungs were clear to auscultation. Heart sounds were irregular. Abdomen soft and nontender. He has trace pedal edema. He had mild ecchymotic areas on his upper extremities. Problems: 1. Acute hypercapnic respiratory failure 2. COPD exacerbation 3. Atrophic relation rapid ventricular rate 4. Diabetes mellitus 5. Hypertension 6. Acute kidney injury 7. Chronic systolic dysfunction. Plan: -Admit to the inpatient general medical service. -Continue telemetry monitoring. -Continue BiPAP therapy as directed by the pulmonology service. Bronchodilator therapy every 4 hours and as needed. IV steroids with Solu-Medrol 40 mg every 8 hours. -Chest CT shows worsening left-sided pneumonia, small left pleural effusion and stable diffuse mediastinal lymphadenopathy. Fortunately patient is afebrile. He does have leukocytosis as well. Continue antibiotic therapy with ceftriaxone /azithromycin. -Rate has improved with IV Cardizem. Continue infusion. Continue anticoagulation with Xarelto. Follow-up recommendations of the cardiology service. - admits that oral intake has been poor. This is likely the cause of his acute kidney injury. We'll avoid IV hydration in view of his chronic systolic dysfunction. Monitor renal function closely.
--- NOTE | 2017-05-01 11:23 | NUR ---
BOTH SETS OF BC DRAWN AND SENT
--- NOTE | 2017-05-01 11:27 | NUR ---
FINGERSTICK 277 - PT STATES HIS SUGARS ALWAYS GO UP WITH STEROIDS. STATES HE TAKES METFORMIN AT HOME. OFFERS NO COMPLAINTS AND STATES HIS BREATHING IS BETTER SAT 92% ON 5L. HR MAINTAINS AT LOW 100'S (100-120). PER MD MARTINEZ, LEAVE DRIP AT 10MG/HR AT THIS TIME
--- NOTE | 2017-05-01 11:47 | CT SCAN REPORT ---
EXAMINATION: CT CHEST WITHOUT CONTRAST CLINICAL INFORMATION: Dyspnea and hypoxia. Evaluate for pneumonia. COMPARISON: Previous chest CT scans, most recent 08/09/2016 and chest CTA January 2016. TECHNIQUE: Multidetector volumetric CT imaging of the chest was done. Axial MIP volume rendering provided. Sagittal and coronal reformatted images were obtained. DLP: 308 mGy-cm FINDINGS: MITIGATION SUPERVISOR: Worsening left-sided airspace disease, greatest in the left lower lobe. Emphysema with a large bulla at the right lung base. LUNGS: There are numerous new patchy round areas of airspace disease seen in the left upper lobe compared to the most recent exam of July 2016. Largest areas measure approximately 1.5 x 2 cm. There are increasing coalescent parenchymal opacities, some peribronchial in distribution, and bronchial wall thickening in the left lower lobe, probably representing bronchopneumonia. There are new patchy ground-glass opacities seen in the right upper lobe. There is increasing atelectasis/consolidation and cystic change, possibly representing cicatrization bronchiectasis, in the lateral segment of the right middle lobe (axial image 46, series 3). There is a stable peripheral parenchymal opacity in the lateral right lower lobe (axial image 47 and 48, series 3). Previously identified patchy areas of airspace disease in the posterior basal segment of the right lower lobe appear improved compared to the July 2016 exam. There is emphysematous change with a large cyst or a bulla at the right lung base measuring 6.6 x 10.8 cm. MEDIASTINUM: The thyroid gland is enlarged and extends substernally into the chest. There is diffuse mediastinal lymphadenopathy. This does not appear appreciably changed from previous exams. Largest lymph node is an AP window lymph node measuring 9 x 22 mm (axial image 22, series 2). The pulmonary derek appear prominent, however, on review of the CTA of January 2016 this probably represents enlarged pulmonary arteries. The heart is enlarged. There is no pericardial effusion. There is coronary artery calcification. PLEURA: There is a small left pleural effusion. This has slightly increased in size compared to previous exams. AXILLAE: There are shotty bilateral axillary lymph nodes. No enlarged axillary lymph nodes are seen. There is bilateral gynecomastia. UPPER ABDOMEN: An aortic stent graft is partially visualized. Images through the upper abdomen are otherwise unremarkable. OSSEOUS STRUCTURES: There are degenerative changes of the spine. IMPRESSION: Worsening left-sided pneumonia. Small left pleural effusion slightly increased in size from previous exam. Stable diffuse mediastinal lymphadenopathy. Enlarged heart and coronary artery calcification.
--- NOTE | 2017-05-01 11:48 | NUR ---
HR HAS REMAINED 90'S TO LOW 100'S PER MD MARTINEZ, CARDIZEM DRIP LOWERED TO 5 MG/HR. MED/DOSE/PUMP VERIFIED WITH CARLY MALIN. SECONDARY IV ESTABLISHED. MED WITH [facility] PER JAN.
--- NOTE | 2017-05-01 11:55 | NUR ---
RT PAGED FOR ORDERED ABG
--- NOTE | 2017-05-01 12:06 | NUR ---
REPORT GIVEN TO TELE NURSE AWAITING RT FOR ABG AND THEN TRANSPORT TO FLOOR.
--- NOTE | 2017-05-01 12:16 | NUR ---
ABG COMPLETED. ZITHROMAX INFUSING PER MAR. HR REMAINS 90'S TO LOW 100'S - CARDIZIEM KEPT AT 5MG/HR. AWAITING TRANSPORT.
--- NOTE | 2017-05-01 12:34 | NUR ---
PT TRANSPORTED TO [facility] WITH CARLY LOVE, ON MONITOR RATE 90'S-100'S (108 AT TIME OF DEPARTURE). ZITHROMAX INFUSING IN LW IV @ 250ML/HR CARDIZIEM INFUSING IN RW IV @ 5ML/HR. PT ALERT, CONVERSANT AND WITHOUT COMPLAINTS. SAT 93% ON 5L.
[2017-05-01 12:52] VITALS: BP 126/75
--- NOTE | 2017-05-01 15:37 | Cons- Cardiology ---
General Information and HPI Consulting Request Date of Consult: 05/01/17 Requested By: AMALIA KRAMER M.D Reason for Consult: Rapid atrial fibrillation in the setting of pneumonia on top of severe end-stage COPD. Source of Information: patient, old records Exam Limitations: no limitations History of Present Illness: Courtney Vieira is a 66-year-old male with severe end stage COPD and chronic atrial fibrillation for several ears. I have seen him a couple of times in the hospital, most recently 08/09/2016. I also saw him about 6 months prior when he presented with atrial fibrillation with bradycardia and elevated digoxin level, and we eventually just took him off digoxin. He has mostly been hospitalized for exacerbation of COPD. In July 2016 he presented with exacerbation of COPD, hypercapnic respiratory failure, and anasarca. He was diuresed with Lasix intravenously twice a day and sent home on 40 mg b.i.d. orally. He has been on Xarelto for some time for atrial fibrillation. He is also on chronic oxygen at 4 liters, aspirin, Lipitor, and diltiazem now 480 mg daily for rate control. He has been following up in the COPD/CHF clinic but no longer needs IV lasix there. He is pretty limited in terms of his activity because of the COPD. His last echocardiogram in the hospital showed mild left ventricular dilatation with LVH and an ejection fraction of 45%. He also had right ventricle and right atrial dilatation, and left atrial dilatation. He had mild to moderate mitral regurgitation and a pulmonary artery pressure of about 45 mmHg. I last saw him in the office in February 2017 at which time he was doing pretty well. He had no cardiac complaints and his heart rate was acceptable. He was doing well until a few days ago when he began getting more short of breath which became worse today and he came to the emergency room. Evaluation showed him to be in rapid atrial fibrillation although he states he has been taking his medications regularly. He was also in moderate hypercapneic respiratory failure. Subsequently his heart rate has come down with treatment and also IV Cardizem drip. His x-ray and CT scan of the chest are difficult to read in terms of congestive heart failure but his BNP was significantly elevated at 12,800. He was given some Lasix in the emergency department. He is not describing any chest pain, palpitations, dizziness, edema. Allergies/Medications Allergies: Coded Allergies: NO KNOWN ALLERGIES (02/05/16) Home Med List: Albuterol Sulfate (Proair Hfa) 90 MCG HFA.AER.AD 2 PUF INH Q4-6 PRN PRN SHORTNESS OF BREATH (Reported) Albuterol Sulfate 2.5 MG/3 ML (0.083 %) VIAL.NEB 1 Vial INH/ABILIO Q4P PRN SHORTNESS OF BREATH (Reported) Aspirin (Aspirin*) 81 MG TAB.CHEW 1 TAB PO DAILY HEART HEALTH (Reported) Atorvastatin Calcium (Lipitor) 10 MG TABLET 1 TAB PO DAILY CHOLESTEROL ( Reported) Budesonide/Formoterol Fumarate (Symbicort 160-4.5 Mcg Inhaler) 160 MCG-4.5 MCG/ ACTUATION HFA.AER.AD 2 PUF INH BID SHORTNESS OF BREATH (Reported) Diltiazem HCl (Cardizem Cd) 240 MG CAP.ER.24H 480 MG PO DAILY Atrial fibrillation Ferrous Sulfate 325 MG TABLET. 325 MG PO BID Iron supplement Furosemide (Lasix) 40 MG TABLET 1 TAB PO BID Water pill Insulin Aspart (Novolog) 100 UNIT/1 ML VIAL 0 UNITS SC TIDAC blood sugars <200mg/dl - no insulin 201-250mg/dl - 2units 251-300mg/dl - 4units 301-350mg/dl- 6units 351-400mg/dl - 8units >400mg/dl - 10units Mealtime scale Metformin HCl (Glucophage) 1,000 MG TABLET 1 TAB PO BID DIABETES (Reported) Pantoprazole Sodium (Protonix) 40 MG TABLET. 1 TAB PO DAILY ACID REFLUX ( Reported) Rivaroxaban (Xarelto) 20 MG TABLET 1 TAB PO DAILY BLOOD THINNER (Reported) with food Tiotropium [place] (Spiriva) 18 MCG CAP.W.DEV 1 CAP INH DAILY SHORTNESS OF BREATH (Reported) Current Medications: Current Medications Sig/Eve Start time Last Medication Dose Route Stop Time Status Admin Acetaminophen 325 MG Q6 PRN 05/01 1000 AC PO Albuterol Sulfate 3 ML EVERY 4 HRS/AWAKE 05/01 1600 AC INH Albuterol Sulfate 2 PUF Q4-6 PRN PRN 05/01 1115 AC INH Albuterol Sulfate 3 ML Q4P PRN 05/01 1115 AC INH Aspirin 81 MG DAILY 05/02 1000 AC PO Aspirin 0 .STK-MED ONE 05/01 0804 DC PO Aspirin 325 MG ONCE ONE 05/01 0800 DC 05/01 PO 05/01 0801 0807 Atorvastatin Calcium 10 MG 1700 05/02 1700 AC PO Azithromycin 500 MG DAILY 05/01 1105 AC 05/01 Sodium Chloride 250 ML IV 1216 Budesonide/ 2 PUF BID 05/01 2200 AC Formoterol Fumarate INH Ceftriaxone Sodium 0 .STK-MED ONE 05/01 1137 DC .ROUTE Ceftriaxone Sodium 1,000 MG DAILY 05/01 1105 AC 05/01 IV 1149 Diltiazem HCl 480 MG DAILY 05/02 1000 AC PO Diltiazem HCl 125 MG Q24H 05/01 1145 AC 05/01 Sodium Chloride 100 ML IV 1150 Diltiazem HCl 480 MG DAILY 05/01 1000 DC 05/01 PO 0948 Diltiazem HCl 125 MG Q12H 05/01 0715 DC 05/01 Sodium Chloride 100 ML IV 05/02 0714 0844 Ferrous Sulfate 325 MG BID 05/01 2200 AC PO Furosemide 40 MG 7:30 AM, & 4:30 PM 05/02 0730 AC PO Furosemide 40 MG BID 05/01 2200 CAN PO Furosemide 40 MG 7:30 AM, & 4:30 PM 05/01 1630 AC IV PUSH 05/01 2300 Furosemide 0 .STK-MED ONE 05/01 0804 DC IV Furosemide 40 MG ONCE ONE 05/01 0800 DC 05/01 IV 05/01 0801 0807 Insulin Aspart 0 TIDAC 05/01 1200 AC 05/01 SC 1139 Ipratropium [place] 2.5 ML ONCE ONE 05/01 0930 DC 05/01 INH 05/01 0931 0929 Methylprednisolone 40 MG Q8 05/01 1400 AC 05/01 IV 1433 Methylprednisolone 0 .STK-MED ONE 05/01 0804 DC .ROUTE Methylprednisolone 125 MG ONCE ONE 05/01 0800 DC 05/01 IV 05/01 0801 0807 Morphine Sulfate 1 MG Q4 PRN 05/01 1000 AC IV Omeprazole 40 MG DAILY AC 05/02 0700 AC PO Oxycodone HCl 5 MG Q6 PRN 05/01 1000 AC PO Rivaroxaban 20 MG DAILY 05/02 1000 AC PO Rivaroxaban 20 MG DAILY 05/01 1000 DC 05/01 PO 0948 Tiotropium [place] 1 PUF DAILY 05/02 1000 AC INH Review of Systems Review of Systems: His only complaint is shortness of breath and cough Past History Travel History Traveled to [place] past 21 day No Medical History Neurological: NONE EENT: NONE Cardiovascular: AFIB, CHF, hypertension, hyperlipidemia Respiratory: COPD, 3-3.5L O2 DEPENDENT BIPAP AT NIGHT Gastrointestinal: GERD, ABD ANEURYSM Hepatic: NONE Renal: NONE Musculoskeletal: NONE Psychiatric: NONE Endocrine: diabetes Blood Disorders: NONE Cancer(s): NONE 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 FATHER, ; Cause: Myocardial infarct. SISTER, ; Cause: Myocardial infarct. Psychosocial History Who Do You Live With? self Services at Home: None Primary Language: [place] Smoking Status: Former Smoker Functional Ability ADLs Independent: dressing, eating, toileting, bathing. Ambulation: independent IADLs Independent: shopping, housework, finances, food prep, telephone, transportation , medication admin. Exam & Diagnostic Data Vital Signs and I&O Vital Signs Date Time Temp Pulse Resp B/P B/P Pulse O2 O2 Flow FiO2 Mean Ox Delivery Rate 05/01 1440 99 96 05/01 1430 BIPAP 40% 05/01 1254 112 92 05/01 1252 97.9 107 23 126/75 90 BIPAP 40% 05/01 1233 96.7 104 18 136/84 93 Nasal 5.0L Cannula 05/01 1126 104 18 129/73 92 Nasal 5.0L Cannula 05/01 0930 123 24 155/71 91 Nasal 5.0L Cannula 05/01 0927 90 Nasal 4.0L Cannula 05/01 0731 97.8 123 20 134/75 97 Room Air 05/01 0653 98.7 123 26 139/84 82 Nasal 4.0L Cannula Intake & Output 05/01 1600 05/01 0800 05/01 0000 04/30 1600 04/30 0800 04/30 0000 Intake Total Output Total 600 Balance -600 Output, Urine 600 Patient 185 lb Weight Weight Reported by Patient Measurement Method Physical Exam: On exam he is elderly-appearing chronically ill appearing man on BiPAP in mild respiratory distress HEENT exam is normal to limited exam because of the BiPAP Neck veins are not distended Chest reveals markedly decreased breath sounds and some rhonchi Heart reveals irregularly irregular rhythm at a normal rate with no murmurs Abdomen is benign Extremities reveal trace to 1+ edema of the lower extremities Labs/Sridhar Results: Laboratory Tests 05/01 05/01 05/01 1435 1200 1046 Blood Gas pH (7.35 - 7.45 PH) 7.28 *L pCO2 (35 - 45 TORR) 65 *H pO2 (80 - 100 TORR) 78 L HCO3 (21 - 28 MEQ/L) 30 H ABG O2 Sat (Measured) (>96.0 %) 95.0 L Carboxyhemoglobin (1.5 - 5.0 %) 1.4 L O2 Concentration % 5L O2 Delivery Method NC Chemistry Troponin I Pending Sqy-F-Xjafgsobsev Pept Cancelled Miscellaneous Phlebotomy Draw Site LEFT RADIAL 05/01 05/01 0930 0700 Chemistry Sodium (137 - 145 mmol/L) 143 Potassium (3.5 - 5.1 mmol/L) 3.7 Chloride (98 - 107 mmol/L) 101 Carbon Dioxide (22 - 30 mmol/L) 31 H Anion Gap (5 - 16) 11 BUN (9 - 20 mg/dL) 23 H Creatinine (0.7 - 1.2 mg/dL) 1.3 H Estimated GFR (>60 ml/min) 55 L BUN/Creatinine Ratio (7 - 25 %) 17.7 Glucose (65 - 99 mg/dL) 131 H Calcium (8.4 - 10.2 mg/dL) 9.0 Total Bilirubin (0.2 - 1.3 mg/dL) 0.5 Direct Bilirubin (< 0.4 mg/dL) 0.3 AST (17 - 59 U/L) 12 L ALT (21 - 72 U/L) 38 Alkaline Phosphatase (< 127 U/L) 89 Troponin I (<0.11 ng/ml) 0.03 Oqc-G-[id number] Pept (<125 pg/mL) 02750 H Total Protein (6.3 - 8.2 g/dL) 6.0 L Albumin (3.5 - 5.0 g/dL) 3.5 Amylase (30 - 110 U/L) < 30 L Lipase (23 - 300 U/L) 12 L Coagulation PT (9.4 - 12.5 SEC) 24.1 H INR (0.90 - 1.17) 2.31 H APTT (25 - 37 SEC) 39 H Hematology CBC w Diff MAN DIFF ORDERED WBC (4.8 - 10.8 /CUMM) 14.1 H RBC (4.70 - 6.10 /CUMM) 3.38 L Hgb (14.0 - 18.0 G/DL) 9.1 L Hct (42 - 52 %) 28.5 L MCV (80.0 - 94.0 FL) 84.4 MCH (27.0 - 31.0 PG) 27.0 RDW (11.5 - 14.5 %) 16.2 H Plt Count (130 - 400 /CUMM) 242 MPV (7.4 - 10.4 FL) 8.5 Gran % (42.2 - 75.2 %) 85.7 H Lymphocytes % (20.5 - 51.1 %) 6.2 L Monocytes % (1.7 - 9.3 %) 7.8 Eosinophils % (0 - 5 %) 0.1 Basophils % (0.0 - 2.0 %) 0.2 Absolute Granulocytes (1.4 - 6.5 /CUMM) 12.1 H Absolute Lymphocytes (1.2 - 3.4 /CUMM) 0.9 L Absolute Monocytes (0.10 - 0.60 /CUMM) 1.1 H Absolute Eosinophils (0.0 - 0.7 /CUMM) 0 Absolute Basophils (0.0 - 0.2 /CUMM) 0 Platelet Estimate (ADEQUATE) ADEQUATE Hypochromic-Microcytic 1+ Poikilocytosis 1+ Anisocytosis 1+ PUBS MCHC (33.0 - 37.0 G/DL) 32.0 L Urines Urine Color (YEL,AMB,STR) YEL Urine Clarity (CLEAR) CLEAR Urine pH (5.0 - 8.0) 6.0 Ur Specific Murphy (1.001 - 1.035) 1.015 Urine Protein (NEG,<30 MG/DL) NEG Urine Ketones (NEG) NEG Urine Nitrite (NEG) NEG Urine Bilirubin (NEG) NEG Urine Urobilinogen (0.1 - 1.0 EU/dl) 0.2 Ur Leukocyte Esterase (NEG) NEG Ur Microscopic EXAM NOT REQUIRED Urine Hemoglobin (NEG) NEG Urine Glucose (N MG/DL) NEG Diagnostic Data CXR Results PATIENT: COURTNEY VIIERA PRESENT AGE: 66 PATIENT ACCOUNT NO: [id number] : 49 LOCATION: [facility] ORDERING PHYSICIAN: JOHNNY JOSHI MD SERVICE DATE: 05/01/17 EXAM TYPE: RAD - XRY-PORTABLE CHEST XRAY EXAMINATION: XR PORTABLE CHEST CLINICAL INFORMATION: Dyspnea COMPARISON: Chest radiograph 08/09/[address] thorax 08/09/2016. TECHNIQUE: Portable AP upright view of the chest was obtained. FINDINGS: The cardiac silhouette is enlarged without change from prior. Dense retrocardiac opacification is unchanged in comparison to prior as are the chronic interstitial markings bilaterally and emphysematous change in the right lung. Chronic blunting of the costophrenic angles is more notable on the right side. No obvious superimposed process. IMPRESSION: Extensive underlying chronic changes limits evaluation. There remains dense retrocardiac opacification and extensive interstitial changes throughout the bilateral lungs. If there is a high index of clinical concern, follow-up CT of the thorax could be obtained. DICTATED BY: KAYLA CABRERA MD DATE/TIME DICTATED:05/01/17739 BILLET EXAMINER:HENDERSON DATE/TIME TRANSCRIBED:05/01/17739 CONFIDENTIAL, DO NOT COPY WITHOUT APPROPRIATE AUTHORIZATION. <Electronically signed in Other Vendor System> SIGNED BY: KAYLA CABRERA MD 05/01/17 0747 Other Results MPRESSION: Worsening left-sided pneumonia. Small left pleural effusion slightly increased in size from previous exam. Stable diffuse mediastinal lymphadenopathy. Enlarged heart and coronary artery calcification. DICTATED BY: DANICA BAKER MD DATE/TIME DICTATED:05/01/17948 BILLET EXAMINER:HENDERSON DATE/TIME TRANSCRIBED:05/01/17948 CONFIDENTIAL, DO NOT COPY WITHOUT APPROPRIATE AUTHORIZATION. <Electronically signed in Other Vendor System> SIGNED BY: DANICA BAKER MD. 1147 Assessment/Plan Assessment/Plan Courtney presents with respiratory failure and worsening pneumonia per his CAT scan, he also has small pleural effusion. On presentation he was in rapid atrial fibrillation but this has improved on IV Cardizem. Most likely his increased heart rate was due to the respiratory failure and hopefully this will improve once once this improves and we can put him back on his usual dose of Cardizem and taper him off of IV Cardizem. I would continue him on Eliquis which he tolerates well. I would recommend a follow-up echocardiogram to compare particularly pulmonary artery pressure. Copies To: ROBERTO CARLOS CR,EDWIN; VICENTE CR,KELSIE Consult Acknowledgment - Thank you for your consult request.
--- NOTE | 2017-05-01 16:00 | NUR ---
PT ADMITTTED TO TELEMETRY, AWAKE BUT TIRED, GENERALIZED WEAKNESS. MOVES ALL EXTREMETIES EQUALLY WITH GOOD STRENGTH AND PULSES X 4. PT AFIB ON THE MONITOR 90'S ON CARDIZEM GTT AT 5 MG, FURTHER TITRATED TO 2.5MG PER DR MACARIO HERNANDEZ, WHEN NOTIFIED PT HR DECREASED TO 60'S. PT RECIEVED ON 5LNC, HAD INCREASED LABORED BREATHING AND RR 30-40'S. RT PLACED ON BIPAP 40%, RR 18 18/6, FURTHER TITRATED DOWN TO 35% 18/6 RR 22. LUNGS DIMINISHED, WHEEZING NOTED. JAIMES PLACED, 350 ML OF CLEAR YELLOW URINE OUT AND UC SENT. PT STARTED ON SOLUMEDROL IV, ZITHROMAX FINISHED INFUSING AND REPEAT TROPONIN AND EKGS OBTAINED.
--- NOTE | 2017-05-01 17:04 | Admission Certification ---
Admission Certification Certification Statement - As attending physician, I certify that at the time of - admission, based on clinical presentation, severity of - symptoms, need for further diagnostic testing and - therapeutic interventions, and risk of adverse outcomes - without in-hospital treatment, in my clinical assessment, - this patient requires an acute hospital stay for a minimum - of two nights or longer. I have also considered psychsocial - factors such as support system, advanced age, financial - issues, cognitive issues, and failed out-patient treatments, - past re-admission history, safety of patient, and lack of - compliance as applicable. Specific rationale supporting this admission is: Admit to the inpatient medical service for management of his acute hypoxic/ hypercapnic respiratory failure
[2017-05-01 18:30] VITALS: BP 92/58
[2017-05-02 00:20] VITALS: BP 94/60
--- NOTE | 2017-05-02 07:24 | PN- Housestaff ---
See Addendum Subjective Follow-up For: - Acute hypoxic hypercarbic respiratory failure 2/2 COPD exacerbation vs CAP PNA vs CHF - Afib with RVR ON Xarelto - [place] - DM Complaints: no complaints Tele-Events Since Last Visit: Afib 80-94bpm. Subjective: Patient seen and examined at bedside. He is on BiPAP. Eager to eat and so requesting to be off of it. Denies nay chest pain, palpitations, nausea, vomiting. Repeat ABG done yesterday showed improvement. Review of Systems Constitutional: Denies: chills, fever. EENTM: Denies: visual changes. Cardiovascular: Denies: chest pain, palpitations, peripheral edema. Respiratory: Denies: cough, short of breath, wheezing. Gastrointestinal: Denies: abdominal pain, constipation, diarrhea, nausea, vomiting. Genitourinary: Reports: no symptoms. Musculoskeletal: Reports: no symptoms. Neurological/Psychological: Denies: headache, numbness, tingling, tremors. Objective Last 24 Hrs of Vital Signs/I&O Vital Signs Date Time Temp Pulse Resp B/P B/P Pulse O2 O2 Flow FiO2 Mean Ox Delivery Rate 05/02 0042 88 98 05/02 0020 98.6 93 24 94/60 94 BIPAP 35% 05/02 0000 92 BIPAP 35% 05/01 2255 90 91 05/01 1930 80 92 05/01 1830 BIPAP 35% 05/01 1830 86 92/58 05/01 1715 Nasal 3.5L Cannula 05/01 1604 94 BIPAP 35% 05/01 1600 92 BIPAP 35% 05/01 1600 92 BIPAP 35% 05/01 1600 67 92 05/01 1440 99 96 05/01 1430 BIPAP 40% 05/01 1254 112 92 05/01 1252 97.9 107 23 126/75 90 BIPAP 40% 05/01 1233 96.7 104 18 136/84 93 Nasal 5.0L Cannula 05/01 1126 104 18 129/73 92 Nasal 5.0L Cannula 05/01 0930 123 24 155/71 91 Nasal 5.0L Cannula 05/01 0927 90 Nasal 4.0L Cannula 05/01 0731 97.8 123 20 134/75 97 Room Air Intake & Output 05/02 0800 06/13 0000 05/01 1600 Intake Total 120 400 540 Output Total 720 722 6650 Balance -280 -150 -1110 Intake, IV 50 300 Intake, Oral 120 350 240 Number 0 0 Bowel Movements Output, Urine 130 128 6175 Patient 183 lb Weight Weight Reported by Patient Measurement Method Physical Exam General Appearance: Alert, Oriented X3, Cooperative, No Acute Distress, on bipap HEENT: Atraumatic, PERRLA, EOMI, Mucous Membr. moist/pink Neck: Supple, No JVD, No thryomegaly, +2 Carotid Pulse wo Bruit, No LAD Cardiovascular: Regular Rate, Normal S1, Normal S2, No Murmurs Lungs: mild wheezes bilaterally Abdomen: Normal Bowel Sounds, Soft, No Tenderness Neurological: no gross neuro deficits Extremities: No Clubbing, No Cyanosis, Normal Pulses, No Tenderness/Swelling, b/ l chronic venous stasis changes, 1+ edema Current Medications: Current Medications Sig/Eve Start time Last Medication Dose Route Stop Time Status Admin Acetaminophen 325 MG Q6 PRN 05/01 1000 AC PO Albuterol Sulfate 3 ML EVERY 4 HRS/AWAKE 05/01 1600 AC 05/01 INH 2010 Albuterol Sulfate 2 PUF Q4-6 PRN PRN 05/01 1115 AC INH Albuterol Sulfate 3 ML Q4P PRN 05/01 1115 AC INH Aspirin 81 MG DAILY 05/02 1000 AC PO Aspirin 0 .STK-MED ONE 05/01 0804 DC PO Aspirin 325 MG ONCE ONE 05/01 0800 DC 05/01 PO 05/01 0801 0807 Atorvastatin Calcium 10 MG 1700 05/02 1700 AC PO Azithromycin 500 MG DAILY 05/01 1105 AC 05/01 Sodium Chloride 250 ML IV 1216 Budesonide/ 2 PUF BID 05/01 2200 AC 05/01 Formoterol Fumarate INH 2154 Ceftriaxone Sodium 0 .STK-MED ONE 05/01 1137 DC .ROUTE Ceftriaxone Sodium 1,000 MG DAILY 05/01 1105 AC 05/01 IV 1149 Diltiazem HCl 480 MG DAILY 05/02 1000 AC PO Diltiazem HCl 125 MG Q24H 05/01 1145 AC 05/01 Sodium Chloride 100 ML IV 1150 Diltiazem HCl 480 MG DAILY 05/01 1000 DC 05/01 PO 0948 Diltiazem HCl 125 MG Q12H 05/01 0715 DC 05/01 Sodium Chloride 100 ML IV 05/02 0714 0844 Ferrous Sulfate 325 MG BID 05/01 2200 AC 05/01 PO 2154 Furosemide 40 MG 7:30 AM, & 4:30 PM 05/02 0730 AC PO Furosemide 40 MG BID 05/01 2200 CAN PO Furosemide 40 MG 7:30 AM, & 4:30 PM 05/01 1630 DC 05/01 IV PUSH 05/01 2300 1740 Furosemide 0 .STK-MED ONE 05/01 0804 DC IV Furosemide 40 MG ONCE ONE 05/01 0800 DC 05/01 IV 05/01 0801 0807 Insulin Aspart 0 TIDAC 05/01 1200 AC 05/01 SC 1739 Ipratropium [place] 2.5 ML ONCE ONE 05/01 0930 DC 05/01 INH 05/01 0931 0929 Methylprednisolone 40 MG Q8 05/01 1400 AC 05/02 IV 0557 Methylprednisolone 0 .STK-MED ONE 05/01 0804 DC .ROUTE Methylprednisolone 125 MG ONCE ONE 05/01 0800 DC 05/01 IV 05/01 0801 0807 Morphine Sulfate 1 MG Q4 PRN 05/01 1000 AC IV Omeprazole 40 MG DAILY AC 05/02 0700 AC PO Oxycodone HCl 5 MG Q6 PRN 05/01 1000 AC PO Rivaroxaban 20 MG DAILY 05/02 1000 AC PO Rivaroxaban 20 MG DAILY 05/01 1000 DC 05/01 PO 0948 Tiotropium [place] 1 PUF DAILY 05/02 1000 AC INH Last 24 Hrs of Lab/Sridhar Results Last 24 Hrs of Labs/Mics: Laboratory Tests 05/01/177: Troponin I 0.03 05/01/17 1710: pH 7.34 L, pCO2 54 H, pO2 70 L, HCO3 28, ABG O2 Sat (Measured) 93.0 L, P-50 (Temp Corrected) N, Carboxyhemoglobin 0.3 L, O2 Concentration % 35%, Temperature 97.9, Respiration Rate 22, O2 Delivery Method BIPAP, Vent Mode ST, Expiratory Pressure 6, Inspiratory Pressure 18, Phlebotomy Draw Site LEFT BRACHIAL 05/01/17 1435: Troponin I 0.03 05/01/17 1200: pH 7.28 *L, pCO2 65 *H, pO2 78 L, HCO3 30 H, ABG O2 Sat (Measured) 95.0 L, Carboxyhemoglobin 1.4 L, O2 Concentration % 5L, O2 Delivery Method NC, Phlebotomy Draw Site LEFT RADIAL 05/01/17 1046: Aob-V-Yxkoslwwmgi Pept Cancelled 05/01/17 0930: Urine Color YEL, Urine Clarity CLEAR, Urine pH 6.0, Ur Specific [place] 1.015, Urine Protein NEG, Urine Ketones NEG, Urine Nitrite NEG, Urine Bilirubin NEG, Urine Urobilinogen 0.2, Ur Leukocyte Esterase NEG, Ur Microscopic EXAM NOT REQUIRED, Urine Hemoglobin NEG, Urine Glucose NEG Microbiology 05/01 1503 URINE ROUT: Urine Culture - CAN Cancelled: DUP.ORDER 05/01 1500 URINE ROUT: Urine Culture - RECD 05/01 1500 URINE ROUT: Legionella Antigen - COMP 05/01 1125 BLOOD: Blood Culture - RECD 05/01 1118 BLOOD: Blood Culture - RECD 05/01 1104 LOWER RESP: Respiratory Culture - COLB 05/01 1104 LOWER RESP: Gram Stain - COLB 05/01 0930 URINE ROUT: Legionella Antigen - COMP Orders Fingersticks (last 24 hrs): 277, 197, 279 ECHO Findings: Pending Radiology Findings: SERVICE DATE: 05/01/17 EXAM TYPE: RAD - XRY-PORTABLE CHEST XRAY FINDINGS: The cardiac silhouette is enlarged without change from prior. Dense retrocardiac opacification is unchanged in comparison to prior as are the chronic interstitial markings bilaterally and emphysematous change in the right lung. Chronic blunting of the costophrenic angles is more notable on the right side. No obvious superimposed process. IMPRESSION: Extensive underlying chronic changes limits evaluation. There remains dense retrocardiac opacification and extensive interstitial changes throughout the bilateral lungs. If there is a high index of clinical concern, follow-up CT of the thorax could be obtained. SERVICE DATE: 05/01/17 EXAM TYPE: CAT - CT CHEST WO IV CONTRAST FINDINGS: CUSTOMER RELATIONS ADVISOR: Worsening left-sided airspace disease, greatest in the left lower lobe. Emphysema with a large bulla at the right lung base. LUNGS: There are numerous new patchy round areas of airspace disease seen in the left upper lobe compared to the most recent exam of July 2016. Largest areas measure approximately 1.5 x 2 cm. There are increasing coalescent parenchymal opacities, some peribronchial in distribution, and bronchial wall thickening in the left lower lobe, probably representing bronchopneumonia. There are new patchy ground-glass opacities seen in the right upper lobe. There is increasing atelectasis/consolidation and cystic change, possibly representing cicatrization bronchiectasis, in the lateral segment of the right middle lobe (axial image 46, series 3). There is a stable peripheral parenchymal opacity in the lateral right lower lobe (axial image 47 and 48, series 3). Previously identified patchy areas of airspace disease in the posterior basal segment of the right lower lobe appear improved compared to the July 2016 exam. There is emphysematous change with a large cyst or a bulla at the right lung base measuring 6.6 x 10.8 cm. MEDIASTINUM: The thyroid gland is enlarged and extends substernally into the chest. There is diffuse mediastinal lymphadenopathy. This does not appear appreciably changed from previous exams. Largest lymph node is an AP window lymph node measuring 9 x 22 mm (axial image 22, series 2). The pulmonary derek appear prominent, however, on review of the CTA of January 2016 this probably represents enlarged pulmonary arteries. The heart is enlarged. There is no pericardial effusion. There is coronary artery calcification. PLEURA: There is a small left pleural effusion. This has slightly increased in size compared to previous exams. AXILLAE: There are shotty bilateral axillary lymph nodes. No enlarged axillary lymph nodes are seen. There is bilateral gynecomastia. UPPER ABDOMEN: An aortic stent graft is partially visualized. Images through the upper abdomen are otherwise unremarkable. OSSEOUS STRUCTURES: There are degenerative changes of the spine. IMPRESSION: Worsening left-sided pneumonia. Small left pleural effusion slightly increased in size from previous exam. Stable diffuse mediastinal lymphadenopathy. Enlarged heart and coronary artery calcification. Assessment/Plan Assessment: In summary this is a 66-year-old gentleman with PMH significant for COPD(on 4L of O2 at baseline with nightime BiPAP - very compliant), DM, HTN, TIA, atrial fibrillation (on diltiazem and xarelto), HFrEF(EF 45%, decreased global function , RV pressure 45 mm) presented to on 05/01/17 for progressively worsening shortness of breath. Vitals on admission, afebrile, pulse 123, respiration 26, blood pressure 139/84, saturating 82% on 4 L nasal cannula. Labs showed a white count of 14.4 with no bands, H&H 9.1/28.5(chronic), sodium 143, potassium 3.7, BUN 23, creatinine 1.3 (baseline 0.7), troponin 0.03, proBNP 75961, INR 2.31, UA benign. EKG showed: A. fib with a rate of 148, nonsignificant ST changes, QTC 515 Chest x-ray showed dense retrocardiac opacification and extensive interstitial changes throughout bilateral lungs which are all chronic. Patient received 40 IV Lasix, 125 Solu-Medrol, ASA, nebulizer treatment in the ED and was started on a Cardizem drip and admitted to Telemetry for further management for his RVR and placed on NIV for hypoxic, hypercarbic respiratory failure. Assessment and Plan #Acute on chronic hypoxic and hypercarbic respiratory failure. Most likely 2/2 PNA (CT revealed radiological signs concerning for PNA) vs COPD exacerbation versus CHF (pt was euvolemic on exam) Will continue Ceftriaxone and Azithromycin for now. Try to give trial off BiPAP ,and place on high flow or nasal cannula to maintain sats > 88% F/U LRC of any Would taper Solumedrol to 40mg BID IV F/U pulm consult with Dr. So. ACS was ruled out with troponins and EKG negative for any acute changes. TRC/ Nebs # Atrial Fibrillation with rapid RVR - Most likely 2/2 PNA - Was on Cardizem drip, HR much better controlled now, will D/C Cardizem drip. - Continue Cardizem 480mg daily. - F/U Echo to r/o RWMA, and F/U cardio recs #[place] Most likely pre-renal since patient was diuresed with IV Laisx 40mg BID yesterday and is in almost 1300mls net negative fluid balance. he already received 40mg of Lasix this am. Will hold the evening dose and check BEP in AM #4 Diabetes mellitus -3 times a day Accu-Cheks -Hold metformin - Continue NovoLog sliding scale #6 Microcytic anemia -Chronic (most likely 2/2 -Continue iron tablets #7 Hyperlipidemia -Continue home medications DVT prophylaxis Xarelto Full code Diabetic diet Problem List: 1. Atrial fibrillation with rapid ventricular response 2. Pneumonia Pain Ratin Pain Location: NA Pain Goal: Remain pain free Pain Plan: TYLENOL, ROXICODONE, MORPHINE Tomorrow's Labs & Rationales: BEP - serum creatinine DVT/Prophylaxis: mechanical, pharmacological
[2017-05-02 08:26] VITALS: BP 118/70
[2017-05-02 08:39] LABS: ABSOLUTE BASOPHIL COUNT 0 /CUMM (0.0-0.2); ABSOLUTE EOSINOPHIL COUNT 0 /CUMM (0.0-0.7); ABSOLUTE LYMPH COUNT 0.4 /CUMM (1.2-3.4); ABSOLUTE MONOCYTE COUNT 0.3 /CUMM (0.10-0.60); BASOPHIL % 0.1 % (0.0-2.0); EOSINOPHIL % 0 % (0-5); HEMATOCRIT 26.2 % (42-52); MEAN CORPUSCULAR HGB 26.8 PG (27.0-31.0); MEAN CORPUSCULAR HGB CONC 31.7 G/DL (33.0-37.0); MEAN CORPUSCULAR VOLUME 84.4 FL (80.0-94.0); MEAN PLATELET VOLUME 8.9 FL (7.4-10.4); PLATELET COUNT 220 /CUMM (130-400); RBC DISTRIBUTION WIDTH 16.1 % (11.5-14.5); WHITE BLOOD CELL COUNT 8.7 /CUMM (4.8-10.8)
[2017-05-02 09:46] LABS: GRANULOCYTE % 92.2 % (42.2-75.2)
--- NOTE | 2017-05-02 11:15 | Cons- Pulmonary ---
BECKA CR,PATRICIA 05/02/17 1041: General Information and HPI Consulting Request Date of Consult: 05/02/17 Requested By: Dr. Garcia Reason for Consult: COPD exacerbation Source of Information: patient, old records History of Present Illness: 66-year-old man with acute on chronic hypercarbic respiratory failure, end-stage COPD on 4 L of oxygen at baseline at home, with BiPAP at night, atrial fibrillation on Xarelto, diabetes, hypertension presented from home complaining of dry cough with shortness of breath. He tried prednisone taper over the weekend with no improvement in symptoms and worsening shortness of breath. During admission he was found to be in rapid atrial fibrillation, was placed on Cardizem drip, with his rate now controlled. He has been aggressively diuresed and reports feeling better this morning. He is now at his baseline oxygen requirements. Allergies/Medications Allergies: Coded Allergies: NO KNOWN ALLERGIES (02/05/16) Home Med List: Albuterol Sulfate (Proair Hfa) 90 MCG HFA.AER.AD 2 PUF INH Q4-6 PRN PRN SHORTNESS OF BREATH (Reported) Albuterol Sulfate 2.5 MG/3 ML (0.083 %) VIAL.NEB 1 Vial INH/ABILIO Q4P PRN SHORTNESS OF BREATH (Reported) Aspirin (Aspirin*) 81 MG TAB.CHEW 1 TAB PO DAILY HEART HEALTH (Reported) Atorvastatin Calcium (Lipitor) 10 MG TABLET 1 TAB PO DAILY CHOLESTEROL ( Reported) Budesonide/Formoterol Fumarate (Symbicort 160-4.5 Mcg Inhaler) 160 MCG-4.5 MCG/ ACTUATION HFA.AER.AD 2 PUF INH BID SHORTNESS OF BREATH (Reported) Diltiazem HCl (Cardizem Cd) 240 MG CAP.ER.24H 480 MG PO DAILY Atrial fibrillation Ferrous Sulfate 325 MG TABLET. 325 MG PO BID Iron supplement Furosemide (Lasix) 40 MG TABLET 1 TAB PO BID Water pill Insulin Aspart (Novolog) 100 UNIT/1 ML VIAL 0 UNITS SC TIDAC blood sugars <200mg/dl - no insulin 201-250mg/dl - 2units 251-300mg/dl - 4units 301-350mg/dl- 6units 351-400mg/dl - 8units >400mg/dl - 10units Mealtime scale Metformin HCl (Glucophage) 1,000 MG TABLET 1 TAB PO BID DIABETES (Reported) Pantoprazole Sodium (Protonix) 40 MG TABLET.DR 1 TAB PO DAILY ACID REFLUX ( Reported) Rivaroxaban (Xarelto) 20 MG TABLET 1 TAB PO DAILY BLOOD THINNER (Reported) with food Tiotropium [place] (Spiriva) 18 MCG CAP.W.DEV 1 CAP INH DAILY SHORTNESS OF BREATH (Reported) Current Medications: Current Medications Sig/Eve Start time Last Medication Dose Route Stop Time Status Admin Acetaminophen 325 MG Q6 PRN 05/01 1000 AC PO Albuterol Sulfate 3 ML EVERY 4 HRS/AWAKE 05/01 1600 AC 05/02 INH 0757 Albuterol Sulfate 2 PUF Q4-6 PRN PRN 05/01 1115 AC INH Albuterol Sulfate 3 ML Q4P PRN 05/01 1115 AC INH Aspirin 81 MG DAILY 05/02 1000 AC 05/02 PO 0937 Atorvastatin Calcium 10 MG 1700 05/02 1700 AC PO Azithromycin 500 MG DAILY 05/01 1105 AC 05/02 Sodium Chloride 250 ML IV 0940 Budesonide/ 2 PUF BID 05/01 2200 AC 05/02 Formoterol Fumarate INH 0940 Ceftriaxone Sodium 0 .STK-MED ONE 05/01 1137 DC .ROUTE Ceftriaxone Sodium 1,000 MG DAILY 05/01 1105 AC 05/02 IV 0938 Diltiazem HCl 480 MG DAILY 05/02 1000 AC 05/02 PO 0936 Diltiazem HCl 125 MG Q24H 05/01 1145 DC 05/01 Sodium Chloride 100 ML IV 1150 Diltiazem HCl 480 MG DAILY 05/01 1000 DC 05/01 PO 0948 Diltiazem HCl 125 MG Q12H 05/01 0715 DC 05/01 Sodium Chloride 100 ML IV 05/02 0714 0844 Ferrous Sulfate 325 MG BID 05/01 2200 AC 05/02 PO 0937 Furosemide 40 MG DAILY 05/02 1000 CAN PO Furosemide 40 MG 7:30 AM, & 4:30 PM 05/02 0730 DC 05/02 PO 0828 Furosemide 40 MG BID 05/01 2200 CAN PO Furosemide 40 MG 7:30 AM, & 4:30 PM 05/01 1630 DC 05/01 IV PUSH 05/01 2300 1740 Insulin Aspart 0 TIDAC 05/01 1200 AC 05/02 SC 0827 Methylprednisolone 40 MG Q12 05/02 1800 AC IV Methylprednisolone 40 MG Q8 05/01 1400 DC 05/02 IV 0557 Morphine Sulfate 1 MG Q4 PRN 05/01 1000 AC IV Omeprazole 40 MG DAILY AC 05/02 0700 AC 05/02 PO 0828 Oxycodone HCl 5 MG Q6 PRN 05/01 1000 AC PO Rivaroxaban 20 MG DAILY 05/02 1000 AC 05/02 PO 0937 Rivaroxaban 20 MG DAILY 05/01 1000 DC 05/01 PO 0948 Tiotropium [place] 1 PUF DAILY 05/02 1000 AC 05/02 INH 0940 Review of Systems Review of Systems Constitutional: Denies: chills, fever, malaise, weakness. EENTM: Reports: no symptoms. Cardiovascular: Denies: chest pain, orthopena, palpitations, peripheral edema. Respiratory: Reports: cough, short of breath. Denies: sputum production, wheezing. GI: Reports: no symptoms. Genitourinary: Reports: no symptoms. Musculoskeletal: Reports: no symptoms. Skin: Reports: no symptoms. Neurological/Psychological: Reports: no symptoms. Hematologic/Endocrine: Reports: no symptoms. Immunologic/Allergic: Reports: no symptoms. 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 FATHER, ; Cause: Myocardial infarct. SISTER, ; Cause: Myocardial infarct. Psychosocial History Where Do You Live? Home Who Do You Live With? self Services at Home: None Primary Language: Bel[place]an Smoking Status: Former Smoker Functional Ability ADLs Independent: dressing, eating, toileting, bathing. Ambulation: independent IADLs Independent: shopping, housework, finances, food prep, telephone, transportation , medication admin. Exam & Diagnostic Data Last 24 Hrs of Vital Signs/I&O Vital Signs Date Time Temp Pulse Resp B/P B/P Pulse O2 O2 Flow FiO2 Mean Ox Delivery Rate 05/02 0921 BIPAP 05/02 0826 97.9 84 18 118/70 94 05/02 0815 91 Nasal 4.0L Cannula 05/02 0758 75 97 05/02 0042 88 98 05/02 0020 98.6 93 24 94/60 94 BIPAP 35% 05/02 0000 92 BIPAP 35% 05/01 2255 90 91 05/01 1930 80 92 05/01 1830 BIPAP 35% 05/01 1830 86 92/58 05/01 1715 Nasal 3.5L Cannula 05/01 1604 94 BIPAP 35% 05/01 1600 92 BIPAP 35% 05/01 1600 92 BIPAP 35% 05/01 1600 67 92 05/01 1440 99 96 05/01 1430 BIPAP 40% 05/01 1254 112 92 05/01 1252 97.9 107 23 126/75 90 BIPAP 40% 05/01 1233 96.7 104 18 136/84 93 Nasal 5.0L Cannula 05/01 1126 104 18 129/73 92 Nasal 5.0L Cannula Intake & Output 05/02 1600 05/02 0800 05/02 0000 Intake Total 120 400 Output Total 400 550 Balance -280 -150 Intake, IV 50 Intake, Oral 120 350 Number 0 Bowel Movements Output, Urine 400 550 Patient 183 lb Weight Weight Reported by Patient Measurement Method Physical Exam General Appearance: well developed/nourished, alert, awake, comfortable Head: atraumatic, normal appearance Eyes: Bilateral: normal appearance, PERRL, EOMI. Ears, Nose, Throat: dentures in place Neck: normal inspection, supple Respiratory: crackles, rhonchi Cardiovascular: irregularly irregular Peripheral Pulses: 2+ radial (R), 2+ radial (L) Gastrointestinal: normal bowel sounds, soft, non-tender Extremities: no edema Neurologic/Psych: awake, alert, oriented x 3 Last 48 Hrs of Labs/Sridhar: Laboratory Tests 05/02/17 0802: Anion Gap 10, Estimated GFR 51 L, BUN/Creatinine Ratio 25.0, CBC w Diff NO MAN DIFF REQ, RBC 3.10 L, MCV 84.4, MCH 26.8 L, RDW 16.1 H, MPV 8.9, Gran % 92.2 H, Lymphocytes % 4.4 L, Monocytes % 3.3, Eosinophils % 0, Basophils % 0.1, Absolute Granulocytes 8.0 H, Absolute Lymphocytes 0.4 L, Absolute Monocytes 0.3, Absolute Eosinophils 0, Absolute Basophils 0, PUBS MCHC 31.7 L 05/01/177: Troponin I 0.03 05/01/17 1710: pH 7.34 L, pCO2 54 H, pO2 70 L, HCO3 28, ABG O2 Sat (Measured) 93.0 L, P-50 (Temp Corrected) N, Carboxyhemoglobin 0.3 L, O2 Concentration % 35%, Temperature 97.9, Respiration Rate 22, O2 Delivery Method BIPAP, Vent Mode ST, Expiratory Pressure 6, Inspiratory Pressure 18, Phlebotomy Draw Site LEFT BRACHIAL 05/01/17 1435: Troponin I 0.03 05/01/17 1200: pH 7.28 *L, pCO2 65 *H, pO2 78 L, HCO3 30 H, ABG O2 Sat (Measured) 95.0 L, Carboxyhemoglobin 1.4 L, O2 Concentration % 5L, O2 Delivery Method NC, Phlebotomy Draw Site LEFT RADIAL 05/01/17 1046: Njs-L-Olzpfhohrit Pept Cancelled 05/01/17 0930: Urine Color YEL, Urine Clarity CLEAR, Urine pH 6.0, Ur Specific [place] 1.015, Urine Protein NEG, Urine Ketones NEG, Urine Nitrite NEG, Urine Bilirubin NEG, Urine Urobilinogen 0.2, Ur Leukocyte Esterase NEG, Ur Microscopic EXAM NOT REQUIRED, Urine Hemoglobin NEG, Urine Glucose NEG 05/01/17 0700: Anion Gap 11, Estimated GFR 55 L, BUN/Creatinine Ratio 17.7, Glucose 131 H, Calcium 9.0, Total Bilirubin 0.5, Direct Bilirubin 0.3, AST 12 L, ALT 38, Alkaline Phosphatase 89, Troponin I 0.03, Paa-A-Edlsjqvrllu Pept 48751 H, Total Protein 6.0 L, Albumin 3.5, Amylase < 30 L, Lipase 12 L, PT 24.1 H, INR 2.31 H, APTT 39 H, CBC w Diff MAN DIFF ORDERED, RBC 3.38 L, MCV 84.4, MCH 27.0, RDW 16.2 H, MPV 8.5, Gran % 85.7 H, Lymphocytes % 6.2 L, Monocytes % 7.8, Eosinophils % 0.1, Basophils % 0.2, Absolute Granulocytes 12.1 H, Absolute Lymphocytes 0.9 L, Absolute Monocytes 1.1 H, Absolute Eosinophils 0, Absolute Basophils 0, Platelet Estimate ADEQUATE, Hypochromic-Microcytic 1+, Poikilocytosis 1+, Anisocytosis 1+, PUBS MCHC 32.0 L Microbiology 05/01 1500 URINE ROUT: Legionella Antigen - COMP 05/01 0930 URINE ROUT: Legionella Antigen - COMP Diagnostic Data CXR Results Extensive underlying chronic changes limits evaluation. There remains dense retrocardiac opacification and extensive interstitial changes throughout the bilateral lungs. Other Results Worsening left-sided pneumonia. Small left pleural effusion slightly increased in size from previous exam. Stable diffuse mediastinal lymphadenopathy. Enlarged heart and coronary artery calcification. Assessment/Plan Impression/Plan: 66-year-old man with acute on chronic hypercarbic respiratory failure, 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 Presented from home with shortness of breath inspite of prednisone taper. He has been started on IV steroids and aggressively diuresed. Back to baseline O2 requirements. Imaging demonstrating new infiltrate. Recommendations: Continue IV antibiotics today. Change IV solumedrol to Q12. Continue Spiriva once daily and Symbicort 2 puffs BID with oral rinsing. Proair PRN. Use BiPAP nocturnally. TRC/nebulizers. Continue to diurese per cardiology recommendations. Problem List: 1. COPD exacerbation 2. Atrial fibrillation 3. COPD (chronic obstructive pulmonary disease) Consult Acknowledgment - Thank you for your consult request. MARK ZHANG MD 05/02/17 1224: Assessment/Plan Other Findings/Comments: Mark Mckenna M.D. have examined this patient, reviewed available EMR data, personally reviewed images, discussed with resident/PA/ASSEMBLY LEADER, discussed management plan with housestaff and nursing staff, discussed managment plan all of healthcare providers, discussed management plan with patient and/or family, agreed with resident/PA/ASSEMBLY LEADER. The past history and parts of the chart have been autopopulated. cont nocturnal pap tx cont diuresis, abx, steroid taper dvt prophylaxis at all times will follow with you Consult Acknowledgment - Thank you for your consult request.
--- NOTE | 2017-05-02 11:56 | PN- Cardiology ---
Subjective Subjective: The patient is feeling better. He is off IV Cardizem. His heart rate is good in the 80s to 90s. His breathing is more comfortable. He is on nasal oxygen. Enzymes are negative 3. Objective Vital Signs and I&Os Vital Signs Date Time Temp Pulse Resp B/P B/P Pulse O2 O2 Flow FiO2 Mean Ox Delivery Rate 05/02 0921 BIPAP 05/02 0826 97.9 84 18 118/70 94 05/02 0815 91 Nasal 4.0L Cannula 05/02 0758 75 97 05/02 0042 88 98 05/02 0020 98.6 93 24 94/60 94 BIPAP 35% 05/02 0000 92 BIPAP 35% 05/01 2255 90 91 05/01 1930 80 92 05/01 1830 BIPAP 35% 05/01 1830 86 92/58 05/01 1715 Nasal 3.5L Cannula 05/01 1604 94 BIPAP 35% 05/01 1600 92 BIPAP 35% 05/01 1600 92 BIPAP 35% 05/01 1600 67 92 05/01 1440 99 96 05/01 1430 BIPAP 40% 05/01 1254 112 92 05/01 1252 97.9 107 23 126/75 90 BIPAP 40% 05/01 1233 96.7 104 18 136/84 93 Nasal 5.0L Cannula Intake & Output 05/02 1600 05/02 0800 05/02 0000 05/01 1600 05/01 0800 05/01 0000 Intake Total 120 400 540 Output Total 540 302 5746 Balance -280 -150 -1110 Intake, IV 50 300 Intake, Oral 120 350 240 Number 0 0 Bowel Movements Output, Urine 029 774 2001 Patient 183 lb 185 lb Weight Weight Reported by Patient Reported by Patient Measurement Method Physical Exam: He is in no distress HEENT exam is normal Chest reveals markedly decreased breath sounds and a few scattered rhonchi, no wheezing Heart reveals irregular rhythm and soft systolic murmur at the base Extremities no edema, good pulses Current Medications: Current Medications Sig/Eve Start time Last Medication Dose Route Stop Time Status Admin Acetaminophen 325 MG Q6 PRN 05/01 1000 AC PO Albuterol Sulfate 3 ML EVERY 4 HRS/AWAKE 05/01 1600 AC 05/02 INH 0757 Albuterol Sulfate 2 PUF Q4-6 PRN PRN 05/01 1115 AC INH Albuterol Sulfate 3 ML Q4P PRN 05/01 1115 AC INH Aspirin 81 MG DAILY 05/02 1000 AC 05/02 PO 0937 Atorvastatin Calcium 10 MG 1700 05/02 1700 AC PO Azithromycin 500 MG DAILY 05/01 1105 AC 05/02 Sodium Chloride 250 ML IV 0940 Budesonide/ 2 PUF BID 05/01 2200 AC 05/02 Formoterol Fumarate INH 0940 Ceftriaxone Sodium 1,000 MG DAILY 05/01 1105 AC 05/02 IV 0938 Diltiazem HCl 480 MG DAILY 05/02 1000 AC 05/02 PO 0936 Diltiazem HCl 125 MG Q24H 05/01 1145 DC 05/01 Sodium Chloride 100 [place] IV 1150 Ferrous Sulfate 325 MG BID 05/01 2200 AC 05/02 PO 0937 Furosemide 40 MG DAILY 05/02 1000 CAN PO Furosemide 40 MG 7:30 AM, & 4:30 PM 05/02 0730 DC 05/02 PO 0828 Furosemide 40 MG BID 05/01 2200 CAN PO Furosemide 40 MG 7:30 AM, & 4:30 PM 05/01 1630 DC 05/01 IV PUSH 05/01 2300 1740 Insulin Aspart 0 TIDAC 05/01 1200 AC 05/02 SC 0827 Methylprednisolone 40 MG Q12 05/02 1800 AC IV Methylprednisolone 40 MG Q8 05/01 1400 DC 05/02 IV 0557 Morphine Sulfate 1 MG Q4 PRN 05/01 1000 AC IV Omeprazole 40 MG DAILY AC 05/02 0700 AC 05/02 PO 0828 Oxycodone HCl 5 MG Q6 PRN 05/01 1000 AC PO Rivaroxaban 20 MG DAILY 05/02 1000 AC 05/02 PO 0937 Tiotropium [place] 1 PUF DAILY 05/02 1000 AC 05/02 INH 0940 Results Last 48 Hrs of Labs/Mics: Laboratory Tests 05/02/17 0802: Anion Gap 10, Estimated GFR 51 L, BUN/Creatinine Ratio 25.0, CBC w Diff NO MAN DIFF REQ, RBC 3.10 L, MCV 84.4, MCH 26.8 L, RDW 16.1 H, MPV 8.9, Gran % 92.2 H, Lymphocytes % 4.4 L, Monocytes % 3.3, Eosinophils % 0, Basophils % 0.1, Absolute Granulocytes 8.0 H, Absolute Lymphocytes 0.4 L, Absolute Monocytes 0.3, Absolute Eosinophils 0, Absolute Basophils 0, PUBS MCHC 31.7 L 05/01/177: Troponin I 0.03 05/01/17 1710: pH 7.34 L, pCO2 54 H, pO2 70 L, HCO3 28, ABG O2 Sat (Measured) 93.0 L, P-50 (Temp Corrected) N, Carboxyhemoglobin 0.3 L, O2 Concentration % 35%, Temperature 97.9, Respiration Rate 22, O2 Delivery Method BIPAP, Vent Mode ST, Expiratory Pressure 6, Inspiratory Pressure 18, Phlebotomy Draw Site LEFT BRACHIAL 05/01/17 1435: Troponin I 0.03 05/01/17 1200: pH 7.28 *L, pCO2 65 *H, pO2 78 L, HCO3 30 H, ABG O2 Sat (Measured) 95.0 L, Carboxyhemoglobin 1.4 L, O2 Concentration % 5L, O2 Delivery Method NC, Phlebotomy Draw Site LEFT RADIAL 05/01/17 1046: [id number] Pept Cancelled 05/01/17 0930: Urine Color YEL, Urine Clarity CLEAR, Urine pH 6.0, Ur Specific [place] 1.015, Urine Protein NEG, Urine Ketones NEG, Urine Nitrite NEG, Urine Bilirubin NEG, Urine Urobilinogen 0.2, Ur Leukocyte Esterase NEG, Ur Microscopic EXAM NOT REQUIRED, Urine Hemoglobin NEG, Urine Glucose NEG 05/01/17 0700: Anion Gap 11, Estimated GFR 55 L, BUN/Creatinine Ratio 17.7, Glucose 131 H, Calcium 9.0, Total Bilirubin 0.5, Direct Bilirubin 0.3, AST 12 L, ALT 38, Alkaline Phosphatase 89, Troponin I 0.03, [id number] Pept 27105 H, Total Protein 6.0 L, Albumin 3.5, Amylase < 30 L, Lipase 12 L, PT 24.1 H, INR 2.31 H, APTT 39 H, CBC w Diff MAN DIFF ORDERED, RBC 3.38 L, MCV 84.4, MCH 27.0, RDW 16.2 H, MPV 8.5, Gran % 85.7 H, Lymphocytes % 6.2 L, Monocytes % 7.8, Eosinophils % 0.1, Basophils % 0.2, Absolute Granulocytes 12.1 H, Absolute Lymphocytes 0.9 L, Absolute Monocytes 1.1 H, Absolute Eosinophils 0, Absolute Basophils 0, Platelet Estimate ADEQUATE, Hypochromic-Microcytic 1+, Poikilocytosis 1+, Anisocytosis 1+, PUBS MCHC 32.0 L Microbiology 05/01 1500 URINE ROUT: Legionella Antigen - COMP 05/01 0930 URINE ROUT: Legionella Antigen - COMP Assessment/Plan Assessment/Plan Aiden is improved. His breathing is much easier. His heart rate is in the normal range just on his oral medications. His enzymes were negative. His echo is pending. I recommend keeping him on telemetry 24 hours more. If His heart rate stays normal it can then be discontinued. Continue telemetry? Yes
[2017-05-02 16:29] VITALS: BP 100/60
[2017-05-02 22:00] VITALS: BP 128/78
[2017-05-03 07:00] VITALS: BP 130/70
--- NOTE | 2017-05-03 07:34 | PN- Housestaff ---
See Addendum Subjective Follow-up For: - Acute on chronic hypoxic hypercarbic respiratory failure 2/2 COPD exacerbation vs CAP PNA vs CHF - Afib with RVR ON Xarelto - [place] - DM Complaints: no complaints Tele-Events Since Last Visit: Afib HR: 80-87 Subjective: Patient seen and examiend at bedside. He has no complaints, is down to NC 4.0 liters. Review of Systems Constitutional: Denies: chills, fever, weakness. EENTM: Denies: visual changes. Cardiovascular: Denies: chest pain, palpitations, peripheral edema. Respiratory: Denies: cough, short of breath, sputum production. Gastrointestinal: Denies: abdominal pain, diarrhea, nausea, vomiting. Genitourinary: Reports: no symptoms. Musculoskeletal: Reports: no symptoms. Neurological/Psychological: Denies: headache, numbness, tingling, tremors. Objective Last 24 Hrs of Vital Signs/I&O Vital Signs Date Time Temp Pulse Resp B/P B/P Pulse O2 O2 Flow FiO2 Mean Ox Delivery Rate 05/03 0047 87 97 05/03 0000 BIPAP 35% 05/02 2309 96 93 05/02 2200 99.2 103 25 128/78 92 Nasal 4.0L Cannula 05/02 1737 95 Nasal 4.0L Cannula 05/02 1629 97.7 78 20 100/60 93 Room Air 05/02 1605 93 Nasal 4.0L Cannula 05/02 0921 BIPAP 05/02 0826 97.9 84 18 118/70 94 05/02 0815 91 Nasal 4.0L Cannula 05/02 0758 75 97 Intake & Output 05/03 0800 05/03 0000 05/02 1600 Intake Total 400 400 Output Total 200 250 550 Balance 200 -250 -150 Intake, Oral 400 400 Output, Urine 200 250 550 Physical Exam General Appearance: Alert, Oriented X3, Cooperative, No Acute Distress HEENT: Atraumatic, PERRLA, EOMI, Mucous Membr. moist/pink Neck: Supple, No JVD, No thryomegaly, +2 Carotid Pulse wo Bruit, No LAD Cardiovascular: Normal S1, Normal S2, No Murmurs, irregularly irregular rate Lungs: Clear to Auscultation, decreased air entry Abdomen: Normal Bowel Sounds, Soft, No Tenderness, No Hepatospenomegaly, No Masses Neurological: Normal Speech, Strength at 5/5 X4 Ext, Normal Tone, Sensation Intact, Cranial Nerves 3-12 NL, Reflexes 2+ Extremities: No Clubbing, No Cyanosis, No Edema, Normal Pulses, No Tenderness/ Swelling Current Medications: Current Medications Sig/Eve Start time Last Medication Dose Route Stop Time Status Admin Acetaminophen 325 MG Q6 PRN 05/01 1000 AC PO Albuterol Sulfate 3 ML EVERY 4 HRS/AWAKE 05/01 1600 AC 05/02 INH 2000 Albuterol Sulfate 2 PUF Q4-6 PRN PRN 05/01 1115 AC INH Albuterol Sulfate 3 ML Q4P PRN 05/01 1115 AC INH Aspirin 81 MG DAILY 05/02 1000 AC 05/02 PO 0937 Atorvastatin Calcium 10 MG 1700 05/02 1700 AC 05/02 PO 1743 Azithromycin 500 MG DAILY 05/01 1105 AC 05/02 Sodium Chloride 250 ML IV 0940 Budesonide/ 2 PUF BID 05/01 2200 AC 05/02 Formoterol Fumarate INH 2129 Ceftriaxone Sodium 1,000 MG DAILY 05/01 1105 AC 05/02 IV 0938 Diltiazem HCl 480 MG DAILY 05/02 1000 AC 05/02 PO 0936 Diltiazem HCl 125 MG Q24H 05/01 1145 DC 05/01 Sodium Chloride 100 [place] 1150 Ferrous Sulfate 325 MG BID 05/01 2200 AC 05/02 PO 2129 Furosemide 40 MG DAILY 05/02 1000 CAN PO Furosemide 40 MG 7:30 AM, & 4:30 PM 05/02 0730 DC 05/02 PO 0828 Guaifenesin 600 MG Q12 05/02 2200 AC 05/02 PO 2129 Insulin Aspart 0 TIDAC 05/01 1200 AC 05/02 SC 1743 Methylprednisolone 40 MG Q12 05/02 1800 AC 05/02 IV 1743 Methylprednisolone 40 MG Q8 05/01 1400 DC 05/02 IV 0557 Morphine Sulfate 1 MG Q4 PRN 05/01 1000 AC IV Omeprazole 40 MG DAILY AC 05/02 0700 AC 05/03 PO 0624 Oxycodone HCl 5 MG Q6 PRN 05/01 1000 AC PO Patient Medication 1 ED .STK-MED ONE 05/02 1406 DC Teaching ED 05/02 1407 Rivaroxaban 20 MG DAILY 05/02 1000 AC 05/02 PO 0937 Tiotropium [place] 1 PUF DAILY 05/02 1000 AC 05/02 INH 0940 Last 24 Hrs of Lab/Sridhar Results Last 24 Hrs of Labs/Mics: Laboratory Tests 05/02/17 0802: Anion Gap 10, Estimated GFR 51 L, BUN/Creatinine Ratio 25.0, CBC w Diff NO MAN DIFF REQ, RBC 3.10 L, MCV 84.4, MCH 26.8 L, RDW 16.1 H, MPV 8.9, Gran % 92.2 H, Lymphocytes % 4.4 L, Monocytes % 3.3, Eosinophils % 0, Basophils % 0.1, Absolute Granulocytes 8.0 H, Absolute Lymphocytes 0.4 L, Absolute Monocytes 0.3, Absolute Eosinophils 0, Absolute Basophils 0, PUBS MCHC 31.7 L Orders Fingersticks (last 24 hrs): 178, 320, 366, 245, 300 Assessment/Plan Assessment: In summary this is a 66-year-old gentleman with PMH significant for COPD(on 4L of O2 at baseline with nightime BiPAP - very compliant), DM, HTN, TIA, atrial fibrillation (on diltiazem and xarelto), HFrEF(EF 45%, decreased global function , RV pressure 45 mm) presented to on 05/01/17 for progressively worsening shortness of breath. Vitals on admission, afebrile, pulse 123, respiration 26, blood pressure 139/84, saturating 82% on 4 L nasal cannula. Labs showed a white count of 14.4 with no bands, H&H 9.1/28.5(chronic), sodium 143, potassium 3.7, BUN 23, creatinine 1.3 (baseline 0.7), troponin 0.03, proBNP 90986, INR 2.31, UA benign. EKG showed: A. fib with a rate of 148, nonsignificant ST changes, QTC 515 Chest x-ray showed dense retrocardiac opacification and extensive interstitial changes throughout bilateral lungs which are all chronic. Patient received 40 IV Lasix, 125 Solu-Medrol, ASA, nebulizer treatment in the ED and was started on a Cardizem drip and admitted to Telemetry for further management for his RVR and placed on NIV for hypoxic, hypercarbic respiratory failure. Assessment and Plan #Acute on chronic hypoxic and hypercarbic respiratory failure. Most likely 2/2 PNA (CT revealed radiological signs concerning for PNA) vs COPD exacerbation versus CHF (pt was euvolemic on exam) Will continue Ceftriaxone and Azithromycin for now. Contineu nocturnal BiPAP ,and 4.0liters of O2 via nasal cannula to maintain sats > 88% F/U LRC of any Would switch to Prednisone 40mg daily ACS was ruled out with troponins and EKG negative for any acute changes. TRC/ Nebs Will ambulate him and get pulse o2 F/U R CXR today to F/U on PNA F/U pulm consult with Dr. So. # Atrial Fibrillation with rapid RVR - Most likely 2/2 PNA - Was on Cardizem drip, HR much better controlled now, will D/C Cardizem drip. - Continue Cardizem 480mg daily. - F/U Echo to r/o RWMA, and F/U cardio recs - Will D/C tele and trasnfer to [facility] Most likely pre-renal since patient was diuresed with IV Laisx 40mg BID yesterday and is in almost 1300mls net negative fluid balance. Continue to hold Lasix F/U BEP in AM #4 Diabetes mellitus -3 times a day Accu-Cheks - Eleavted FSG's - 2/2 steroids. - Hold metformin - Continue NovoLog sliding scale #6 Microcytic anemia -Chronic (most likely 2/2 nutritional) -Continue iron tablets #7 Hyperlipidemia -Continue home medications DVT prophylaxis Xarelto Full code Diabetic diet Problem List: 1. Atrial fibrillation with rapid ventricular response 2. Pneumonia Pain Ratin Pain Location: n/a Pain Goal: Remain pain free Pain Plan: cristopher Tomorrow's Labs & Rationales: bep - check serum Cr
--- NOTE | 2017-05-03 11:24 | PN- Cardiology ---
Subjective Subjective: The patient is feeling better. He is breathing much easier. He is off telemetry as his heart rate was controlled. He is still awaiting his echocardiogram. Objective Vital Signs and I&Os Vital Signs Date Time Temp Pulse Resp B/P B/P Pulse O2 O2 Flow FiO2 Mean Ox Delivery Rate 05/03 0805 96 Nasal 4.0L Cannula 05/03 0800 Nasal 4.0L Cannula 05/03 0700 97.6 80 20 130/70 96 Room Air 05/03 0047 87 97 05/03 0000 BIPAP 35% 05/02 2309 96 93 05/02 2200 99.2 103 25 128/78 92 Nasal 4.0L Cannula 05/02 1737 95 Nasal 4.0L Cannula 05/02 1629 97.7 78 20 100/60 93 Room Air 05/02 1605 93 Nasal 4.0L Cannula Intake & Output 05/03 1600 05/03 0800 05/03 0000 05/02 1600 05/02 0800 05/02 0000 Intake Total 400 400 120 400 Output Total 200 250 550 400 550 Balance 200 -250 -150 -280 -150 Intake, IV 50 Intake, Oral 400 400 120 350 Number 0 Bowel Movements Output, Urine 200 250 550 400 550 Patient 183 lb Weight Weight Reported by Patient Measurement Method Physical Exam: He is in no distress HEENT exam is normal Chest reveals decreased breath sounds, mild wheezing and scattered rhonchi Heart reveals irregular rhythm at a normal rate and no murmurs Extremities no edema Current Medications: Current Medications Sig/Eve Start time Last Medication Dose Route Stop Time Status Admin Acetaminophen 325 MG Q6 PRN 05/01 1000 AC PO Albuterol Sulfate 3 ML EVERY 4 HRS/AWAKE 05/01 1600 AC 05/03 INH 0740 Albuterol Sulfate 2 PUF Q4-6 PRN PRN 05/01 1115 AC INH Albuterol Sulfate 3 ML Q4P PRN 05/01 1115 AC INH Aspirin 81 MG DAILY 05/02 1000 AC 05/03 PO 0957 Atorvastatin Calcium 10 MG 1700 05/02 1700 AC 05/02 PO 1743 Azithromycin 500 MG DAILY 05/01 1105 AC 05/03 Sodium Chloride 250 ML IV 0958 Budesonide/ 2 PUF BID 05/01 2200 AC 05/03 Formoterol Fumarate INH 0958 Ceftriaxone Sodium 1,000 MG DAILY 05/01 1105 AC 05/03 IV 0958 Diltiazem HCl 480 MG DAILY 05/02 1000 AC 05/03 PO 0957 Ferrous Sulfate 325 MG BID 05/01 2200 AC 05/03 PO 0957 Guaifenesin 600 MG Q12 05/02 2200 AC 05/03 PO 0957 Insulin Aspart 0 TIDAC 05/01 1200 AC 05/03 SC 0830 Methylprednisolone 40 MG Q12 05/02 1800 DC 05/02 IV 1743 Morphine Sulfate 1 MG Q4 PRN 05/01 1000 AC IV Omeprazole 40 MG DAILY AC 05/02 0700 AC 05/03 PO 0624 Oxycodone HCl 5 MG Q6 PRN 05/01 1000 AC PO Patient Medication 1 ED .STK-MED ONE 05/02 1406 DC Teaching ED 05/02 1407 Prednisone 40 MG DAILY 05/03 1000 AC 05/03 PO 1037 Rivaroxaban 20 MG DAILY 05/02 1000 AC 05/03 PO 0957 Tiotropium [place] 1 PUF DAILY 05/02 1000 AC 05/03 INH 0958 Results Last 48 Hrs of Labs/Mics: Laboratory Tests 05/03/17 0728: Anion Gap 11, Estimated GFR 47 L, BUN/Creatinine Ratio 24.7 05/02/17 0802: Anion Gap 10, Estimated GFR 51 L, BUN/Creatinine Ratio 25.0, CBC w Diff NO MAN DIFF REQ, RBC 3.10 L, MCV 84.4, MCH 26.8 L, RDW 16.1 H, MPV 8.9, Gran % 92.2 H, Lymphocytes % 4.4 L, Monocytes % 3.3, Eosinophils % 0, Basophils % 0.1, Absolute Granulocytes 8.0 H, Absolute Lymphocytes 0.4 L, Absolute Monocytes 0.3, Absolute Eosinophils 0, Absolute Basophils 0, PUBS MCHC 31.7 L 05/01/17 2057: Troponin I 0.03 05/01/17 1710: pH 7.34 L, pCO2 54 H, pO2 70 L, HCO3 28, ABG O2 Sat (Measured) 93.0 L, P-50 (Temp Corrected) N, Carboxyhemoglobin 0.3 L, O2 Concentration % 35%, Temperature 97.9, Respiration Rate 22, O2 Delivery Method BIPAP, Vent Mode ST, Expiratory Pressure 6, Inspiratory Pressure 18, Phlebotomy Draw Site LEFT BRACHIAL 05/01/17 1435: Troponin I 0.03 05/01/17 1200: pH 7.28 *L, pCO2 65 *H, pO2 78 L, HCO3 30 H, ABG O2 Sat (Measured) 95.0 L, Carboxyhemoglobin 1.4 L, O2 Concentration % 5L, O2 Delivery Method NC, Phlebotomy Draw Site LEFT RADIAL Microbiology 05/01 1500 URINE ROUT: Urine Culture - COMP 05/01 1500 URINE ROUT: Legionella Antigen - COMP Recent Imaging Studies: CONCLUSIONS Moderate concentric left ventricular hypertrophy. Moderately reduced global left ventricular systolic function. Left ventricular ejection fraction is estimated at 35-40 %. Mild right ventricular dilatation. Mild to moderate right atrial dilatation. Moderate left atrial dilatation. Mild thickening/calcification of the mitral valve leaflets. Moderate mitral regurgitation. Focal thickening of the aortic valve cusps. No aortic stenosis. Right ventricular systolic pressure estimated to be elevated at 60- 65 mmHg. Moderate to severe pulmonary hypertension. Dilated IVC. Landry Walton M.D. (Electronically Signed) Final Date: 04 May 2017 09:17 Assessment/Plan Assessment/Plan Aiden is improved. His breathing is much easier. His heart rate is in the normal range just on his oral medications. His enzymes were negative. His echo is pending. The patient is okay for discharge from a cardiac standpoint. I will review his echocardiogram which hopefully will be done soon. Addendum: The echo shows reduced LV function and pulmonary hypertension. He will need to be on a chronic diuretic. Continue telemetry? Not applicable
--- NOTE | 2017-05-03 11:44 | PN- Pulmonary ---
See Addendum Subjective HPI/Critical Care Issues: 66-year-old man with acute on chronic hypercarbic respiratory failure, end-stage COPD on 4 L of oxygen at baseline at home, with BiPAP at night, atrial fibrillation on Xarelto, diabetes, hypertension presented from home complaining of dry cough with shortness of breath. He has been treated for penumonia with improvement of his symptoms. No complaints overnights, feels well. Objective Current Medications: Current Medications Sig/Eve Start time Last Medication Dose Route Stop Time Status Admin Acetaminophen 325 MG Q6 PRN 05/01 1000 AC PO Albuterol Sulfate 3 ML EVERY 4 HRS/AWAKE 05/01 1600 AC 05/03 INH 0740 Albuterol Sulfate 2 PUF Q4-6 PRN PRN 05/01 1115 AC INH Albuterol Sulfate 3 ML Q4P PRN 05/01 1115 AC INH Aspirin 81 MG DAILY 05/02 1000 AC 05/03 PO 0957 Atorvastatin Calcium 10 MG 1700 05/02 1700 AC 05/02 PO 1743 Azithromycin 500 MG DAILY 05/01 1105 AC 05/03 Sodium Chloride 250 ML IV 0958 Budesonide/ 2 PUF BID 05/01 2200 AC 05/03 Formoterol Fumarate INH 0958 Ceftriaxone Sodium 1,000 MG DAILY 05/01 1105 AC 05/03 IV 0958 Diltiazem HCl 480 MG DAILY 05/02 1000 AC 05/03 PO 0957 Ferrous Sulfate 325 MG BID 05/01 2200 AC 05/03 PO 0957 Guaifenesin 600 MG Q12 05/02 2200 AC 05/03 PO 0957 Insulin Aspart 0 TIDAC 05/01 1200 AC 05/03 SC 0830 Methylprednisolone 40 MG Q12 05/02 1800 DC 05/02 IV 1743 Morphine Sulfate 1 MG Q4 PRN 05/01 1000 AC IV Omeprazole 40 MG DAILY AC 05/02 0700 AC 05/03 PO 0624 Oxycodone HCl 5 MG Q6 PRN 05/01 1000 AC PO Patient Medication 1 ED .STK-MED ONE 05/02 1406 DC Teaching ED 05/02 1407 Prednisone 40 MG DAILY 05/03 1000 AC 05/03 PO 1037 Rivaroxaban 20 MG DAILY 05/02 1000 AC 05/03 PO 0957 Tiotropium [place] 1 PUF DAILY 05/02 1000 AC 05/03 INH 0958 Vital Signs & I&O Last 24 Hrs of Vitals and I&O: Vital Signs Date Time Temp Pulse Resp B/P B/P Pulse O2 O2 Flow FiO2 Mean Ox Delivery Rate 05/03 0805 96 Nasal 4.0L Cannula 05/03 0800 Nasal 4.0L Cannula 05/03 0700 97.6 80 20 130/70 96 Room Air 05/03 0047 87 97 05/03 0000 BIPAP 35% 05/02 2309 96 93 05/02 2200 99.2 103 25 128/78 92 Nasal 4.0L Cannula 05/02 1737 95 Nasal 4.0L Cannula 05/02 1629 97.7 78 20 100/60 93 Room Air 05/02 1605 93 Nasal 4.0L Cannula Intake & Output 05/03 1600 05/03 0800 05/03 0000 Intake Total 400 Output Total 200 250 Balance 200 -250 Intake, Oral 400 Output, Urine 200 250 Exam General Appearance: alert, awake, comfortable Head: atraumatic Neck: normal inspection, supple Respiratory: minimal wheeze Cardiovascular: irregularly irregular Abdomen: normal bowel sounds, soft, non-tender Extremities: no edema Neurologic/Psychiatric: awake, alert, oriented x 3 Results Last 24 Hrs of Lab Results: Laboratory Tests 05/03/17 0728: Anion Gap 11, Estimated GFR 47 L, BUN/Creatinine Ratio 24.7 Impression/Plan Impression/Plan Impression/Plan: 66-year-old man with acute on chronic hypercarbic respiratory failure, 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 Presented from home with shortness of breath inspite of prednisone taper. He has been started on IV steroids and has been aggressively diuresed. Back to baseline O2 requirements. Imaging demonstrating new infiltrate. Recommendations: Continue IV antibiotics today. Change IV solumedrol once daily dosing. Aleksley shruthiarge in am. Continue Spiriva once daily and Symbicort 2 puffs BID with oral rinsing. Proair PRN. Use BiPAP nocturnally. TRC/nebulizers. Problem List: 1. COPD exacerbation 2. Atrial fibrillation 3. Pneumonia
--- NOTE | 2017-05-03 11:46 | RADIOLOGY REPORT ---
EXAMINATION: XR PORTABLE CHEST CLINICAL INFORMATION: Hypoxemia. Follow-up pneumonia. COMPARISON: CT scan of the chest and portable chest x-ray, 05/01/2017. TECHNIQUE: Portable AP 75 degree semierect view of the chest was obtained. FINDINGS: There is asymmetric expansion of the lungs, with smaller volume on the left. The cardiac silhouette is prominent but stable. The dens opacification in the retrocardiac region is unchanged. There are chronic interstitial markings at the bases, which appear slightly decreased on the right compared to the prior study. Emphysematous change in the right lung appears stable. There may be a small left pleural effusion. There are no acute osseous findings. IMPRESSION: 1. There has been slight interval decrease in the interstitial opacification in the right lower lobe. There are relatively stable changes on the left. 2. There is a small left pleural effusion. There is stable mild cardiomegaly.
--- NOTE | 2017-05-03 13:50 | ULTRASOUND REPORT ---
EXAMINATION: US RETROPERITONEAL COMPLETE (RENAL) CLINICAL INFORMATION: Acute kidney insufficiency. Evaluate for obstructive uropathy. COMPARISON: None TECHNIQUE: Real-time imaging of the kidneys and bladder. FINDINGS: RIGHT KIDNEY: 12.1 x 5.7 x 6 cm (SAG x AP x TRV). The kidney has normal cortical thickness and echotexture. No evidence of focal parenchymal lesion, hydronephrosis or nephrolithiasis. LEFT KIDNEY: 10.2 x 5.9 x 5.1 cm (SAG x AP x TRV). The kidney has normal cortical thickness and cortical echotexture, although there is a 0.5 cm echogenic area of fat or calcification within cortex of the interpolar region. In this same area, there appears to be a 1 x 0.4 cm calculus. No hydronephrosis. BLADDER: Urinary bladder is distended to an estimated volume of 350 mL and the bladder wall thickness is normal. No bladder debris or calculi. Ureteral jets were not identified during the time of imaging. IMPRESSION: 1. No evidence of urinary tract obstruction. 2. There appears to be a 0.4 x 1 cm calculus in the interpolar region of the left kidney. 3. Urinary bladder is unremarkable.
--- NOTE | 2017-05-03 14:14 | Discharge Summary ---
Visit Information Visit Dates Admission Date: 05/01/17 Discharge Date: 05/05/17 Hospital Course Course Attending Physician: AMALIA KRAMER M.D Primary Care Physician: IRMA LANZA Consulting Request: 1 Consulting Specialty: Cardiology Consulting Request: 2 Consulting Specialty: Pulmonary Disease Hospital Course: In summary this is a 66-year-old gentleman with PMH significant for COPD(on 4L of O2 at baseline with nightime BiPAP - very compliant), DM, HTN, TIA, atrial fibrillation (on diltiazem and xarelto), HFrEF(EF 45%, decreased global function , RV pressure 45 mm) presented to on 05/01/17 for progressively worsening shortness of breath. Vitals on admission, afebrile, pulse 123, respiration 26, blood pressure 139/84, saturating 82% on 4 L nasal cannula. Labs showed a white count of 14.4 with no bands, H&H 9.1/28.5(chronic), sodium 143, potassium 3.7, BUN 23, creatinine 1.3 (baseline 0.7), troponin 0.03, proBNP 43390, INR 2.31, UA benign. EKG showed: A. fib with a rate of 148, nonsignificant ST changes, QTC 515 Chest x-ray showed dense retrocardiac opacification and extensive interstitial changes throughout bilateral lungs which are all chronic. Patient received 40 IV Lasix, 125 Solu-Medrol, ASA, nebulizer treatment in the ED and was started on a Cardizem drip and admitted to Telemetry for further management for his RVR and placed on NIV for hypoxic, hypercarbic respiratory failure. He was admitted to Telemetry given Afib with RVR. The following problems were addressed: #Acute on chronic hypoxic and hypercarbic respiratory failure. Most likely 2/2 PNA (CT revealed radiological signs concerning for PNA) vs COPD exacerbation. He was started on Ceftriaxone and Azithromycin on 05/01/17 and subsequently transitioned to Augmentin 875mg BID PO to complete a total of 7 days. He was placed on NIV, which showed improvement in the ABG's which initially was c/w respiratory acidosis. He was continued on nocturnal BiPAP,a nd subsequently downtitrated to 4.0liters of O2 via nasal cannula to maintain sats > 88%. He was also started on IV steroids for COPD exacerbation, which was switched to Prednisone with a taper. ACS was ruled out with troponins and EKG negative for any acute changes. # Atrial Fibrillation with rapid RVR - Most likely 2/2 PNA. He was started on Cardizem drip whcih was discontinued after his HR was much better controlled. He was continued on Cardizem 480mg daily. Echo was done to r/o RWMA. #MADISON - Most likely pre-renal since patient was diuresed with IV Laisx 40mg BID. Lasix was held. Renal US done as his Cr did not improve which showed no evidence of urinary tract obstruction. There appears to be a 0.4 x 1 cm calculus in the interpolar region of the left kidney. Resume Lasix on discharge pending results of his BEP. #4 Diabetes mellitus -We held Metformin. He was continued on NovoLog sliding scale. His FSG were in 200's because for being on steroids. Resume home medications on discharge. #6 Microcytic anemia - This was chronic (most likely 2/2 nutritional). He was continued on iron tablets #7 Hyperlipidemia He was continued on his home medications. Complications: None Allergies: Coded Allergies: NO KNOWN ALLERGIES (02/05/16) Significant Procedures: SERVICE DATE: 05/01/17 EXAM TYPE: RAD - XRY-PORTABLE CHEST XRAY FINDINGS: The cardiac silhouette is enlarged without change from prior. Dense retrocardiac opacification is unchanged in comparison to prior as are the chronic interstitial markings bilaterally and emphysematous change in the right lung. Chronic blunting of the costophrenic angles is more notable on the right side. No obvious superimposed process. IMPRESSION: Extensive underlying chronic changes limits evaluation. There remains dense retrocardiac opacification and extensive interstitial changes throughout the bilateral lungs. If there is a high index of clinical concern, follow-up CT of the thorax could be obtained. SERVICE DATE: 05/01/17 EXAM TYPE: CAT - CT CHEST WO IV CONTRAST FINDINGS: [employer]: Worsening left-sided airspace disease, greatest in the left lower lobe. Emphysema with a large bulla at the right lung base. LUNGS: There are numerous new patchy round areas of airspace disease seen in the left upper lobe compared to the most recent exam of July 2016. Largest areas measure approximately 1.5 x 2 cm. There are increasing coalescent parenchymal opacities, some peribronchial in distribution, and bronchial wall thickening in the left lower lobe, probably representing bronchopneumonia. There are new patchy ground-glass opacities seen in the right upper lobe. There is increasing atelectasis/consolidation and cystic change, possibly representing cicatrization bronchiectasis, in the lateral segment of the right middle lobe (axial image 46, series 3). There is a stable peripheral parenchymal opacity in the lateral right lower lobe (axial image 47 and 48, series 3). Previously identified patchy areas of airspace disease in the posterior basal segment of the right lower lobe appear improved compared to the July 2016 exam. There is emphysematous change with a large cyst or a bulla at the right lung base measuring 6.6 x 10.8 cm. MEDIASTINUM: The thyroid gland is enlarged and extends substernally into the chest. There is diffuse mediastinal lymphadenopathy. This does not appear appreciably changed from previous exams. Largest lymph node is an AP window lymph node measuring 9 x 22 mm (axial image 22, series 2). The pulmonary derek appear prominent, however, on review of the CTA of January 2016 this probably represents enlarged pulmonary arteries. The heart is enlarged. There is no pericardial effusion. There is coronary artery calcification. PLEURA: There is a small left pleural effusion. This has slightly increased in size compared to previous exams. AXILLAE: There are shotty bilateral axillary lymph nodes. No enlarged axillary lymph nodes are seen. There is bilateral gynecomastia. UPPER ABDOMEN: An aortic stent graft is partially visualized. Images through the upper abdomen are otherwise unremarkable. OSSEOUS STRUCTURES: There are degenerative changes of the spine. IMPRESSION: Worsening left-sided pneumonia. Small left pleural effusion slightly increased in size from previous exam. Stable diffuse mediastinal lymphadenopathy. Enlarged heart and coronary artery calcification. SERVICE DATE: 05/03/17- EXAM TYPE: RAD - XRY-PORTABLE CHEST XRAY FINDINGS: There is asymmetric expansion of the lungs, with smaller volume on the left. The cardiac silhouette is prominent but stable. The dens opacification in the retrocardiac region is unchanged. There are chronic interstitial markings at the bases, which appear slightly decreased on the right compared to the prior study. Emphysematous change in the right lung appears stable. There may be a small left pleural effusion. There are no acute osseous findings. IMPRESSION: 1. There has been slight interval decrease in the interstitial opacification in the right lower lobe. There are relatively stable changes on the left. 2. There is a small left pleural effusion. There is stable mild cardiomegaly. SERVICE DATE: 05/03/17 EXAM TYPE: US - US-RENAL/KIDNEY FINDINGS: RIGHT KIDNEY: 12.1 x 5.7 x 6 cm (SAG x AP x TRV). The kidney has normal cortical thickness and echotexture. No evidence of focal parenchymal lesion, hydronephrosis or nephrolithiasis. LEFT KIDNEY: 10.2 x 5.9 x 5.1 cm (SAG x AP x TRV). The kidney has normal cortical thickness and cortical echotexture, although there is a 0.5 cm echogenic area of fat or calcification within cortex of the interpolar region. In this same area, there appears to be a 1 x 0.4 cm calculus. No hydronephrosis. BLADDER: Urinary bladder is distended to an estimated volume of 350 mL and the bladder wall thickness is normal. No bladder debris or calculi. Ureteral jets were not identified during the time of imaging. IMPRESSION: 1. No evidence of urinary tract obstruction. 2. There appears to be a 0.4 x 1 cm calculus in the interpolar region of the left kidney. 3. Urinary bladder is unremarkable. SERVICE DATE: 05/03/17 EXAM TYPE: CARD - ECHOCARDIOGRAM FINDINGS Left Ventricle Mild left ventricular dilatation. Moderate concentric left ventricular hypertrophy. Moderately reduced global left ventricular systolic function. No obvious regional wall motion abnormalities. Left ventricular ejection fraction is estimated at 35-40 %. Right Ventricle Mild right ventricular dilatation. Right Atrium Mild to moderate right atrial dilatation. Left Atrium Moderate left atrial dilatation. Mitral Valve Mild thickening/calcification of the mitral valve leaflets. Moderate mitral regurgitation. Aortic Valve Focal thickening of the aortic valve cusps. No aortic stenosis. No aortic regurgitation. Tricuspid Valve Tricuspid valve is normal in structure and function. Mild tricuspid regurgitation. Right ventricular systolic pressure estimated to be elevated at 60-65 mmHg. Moderate to severe pulmonary hypertension. Pulmonic Valve Pulmonic valve not well visualized, grossly normal. Trace pulmonic regurgitation. Pericardium No pericardial or pleural effusion. Great Vessels Normal size aortic root. Dilated IVC CONCLUSIONS Moderate concentric left ventricular hypertrophy. Moderately reduced global left ventricular systolic function. Left ventricular ejection fraction is estimated at 35-40 %. Mild right ventricular dilatation. Mild to moderate right atrial dilatation. Moderate left atrial dilatation. Mild thickening/calcification of the mitral valve leaflets. Moderate mitral regurgitation. Focal thickening of the aortic valve cusps. No aortic stenosis. Right ventricular systolic pressure estimated to be elevated at 60- 65 mmHg. Moderate to severe pulmonary hypertension. Dilated IVC. Landry Walton M.D. (Electronically Signed) Final Date: 04 May 2017 09:17 MEASUREMENTS (Male / Female) Normal Values 2D ECHO LV Diastolic Diameter PLAX 6.2 cm 4.2 - 5.9 / 3.9 - 5.3 cm LV Systolic Diameter PLAX 4.9 cm 2.1 - 4.0 cm LV Fractional Shortening PLAX 21.0 % 25 - 46 % LV Ejection Fraction 2D Teich 41.8 % IVS Diastolic Thickness 1.4 cm LVPW Diastolic Thickness 1.4 cm LV Relative Wall Thickness 0.5 RV Internal Dim ED PLAX 3.8 cm 1.9 - 3.8 cm LVOT Diameter 1.9 cm Aortic Root Diameter 3.3 cm LA Systolic Diameter LX 5.2 cm 3.0 - 4.0 / 2.7 - 3.8 cm LV Ejection Fraction MOD BP 39.4 % >= 55 % LV Diastolic Length 4C 8.0 cm 6.9 - 10.3 cm LV Diastolic Area 4C 43.0 cm LV Diastolic Volume MOD 4C 192.0 cm LV Ejection Fraction MOD 4C 39.1 % LV Stroke Volume MOD 4C 75.0 cm LV Systolic Length 4C 7.7 cm LV Systolic Area 4C 32.5 cm LV Systolic Volume MOD 4C 117.0 cm LV Ejection Fraction MOD 2C 43.3 % LV Diastolic Volume 4C AL 195.7 cm 85 - 139 / 69 - 109 cm LV Systolic Volume 4C AL 117.1 cm LV Ejection Fraction 4C AL 40.2 % LV Stroke Volume 4C AL 78.7 cm LV Ejection Fraction 2C AL 44.4 % LA Volume 96.0 cm 18 - 58 / 22 - 52 cm Ascending Aorta Diameter 3.3 cm DOPPLER AV Peak Velocity 163.0 cm/s AV Peak Gradient 10.6 mmHg AV Mean Velocity 108.0 cm/s AV Mean Gradient 6.0 mmHg AV Velocity Time Integral 28.9 cm LVOT Peak Velocity 139.0 cm/s LVOT Peak Gradient 7.7 mmHg LVOT Mean Velocity 84.7 cm/s LVOT Mean Gradient 3.0 mmHg LVOT Velocity Time Integral 23.5 cm LVOT Stroke Volume 66.6 cm AV Area Cont Eq vti 2.3 cm AV Area Cont Eq pk 2.4 cm MV Peak Velocity 176.0 cm/s MV Peak Gradient 12.4 mmHg MV Mean Velocity 69.9 cm/s MV Mean Gradient 3.0 mmHg Mitral E Point Velocity 103.0 cm/s MV PHT Velocity 182.0 cm/s MV Deceleration [place] 1388.0 cm/s MV Pressure Half Time 39.3 ms MV Area PHT 5.6 cm MV Deceleration Time 141.0 ms TR Peak Velocity 354.0 cm/s TR Peak Gradient 50.1 mmHg Right Atrial Pressure 10.0 mmHg Pulmonary Artery Systolic Pressu 60.1 mmHg Right Ventricular Systolic Press 60.1 mmHg PV Peak Velocity 130.0 cm/s PV Peak Gradient 6.8 mmHg PV Mean Velocity 84.0 cm/s PV Mean Gradient 3.0 mmHg PV Velocity Time Integral 21.9 cm LV E' Lateral Velocity 13.4 cm/s Mitral E to LV E' Lateral Ratio 7.7 LV E' Septal Velocity 4.8 cm/s Mitral E to LV E' Septal Ratio 21.5 Disposition Summary Disposition Principal Diagnosis: - Acute on chronic hypoxic hypercarbic respiratory failure 2/2 COPD exacerbation vs CAP PNA vs CHF - Afib with RVR ON Xarelto - MADISON Additional Diagnosis: T2DM HTN HFwrEF(EF 45%, decreased global function, RV pressure 45 mm) Discharge Disposition: home or self care Discharge Instructions General Discharge Information Code Status: Full Code Patient's Diet: Diabetic Patient's Activity: As tolerated Follow-Up Instructions/Appts: Please follow up with your primary care physician in one week. Please follow up with your laboratory worker in one week. Please follow up with your filtrose crusher in one week. Medications at Discharge Discharge Medications: Stop taking the following medications: Insulin Aspart (Novolog) 100 UNIT/1 ML VIAL Inject into fatty tissue 3 TIMES DAILY BEFORE MEALS Days = 30 Continue taking these medications: Rivaroxaban (Xarelto) 20 MG TABLET 1 Tablet ORAL DAILY Instructions: with food Comments: Last Taken:05/05/17 Time:9AM Aspirin (Aspirin*) 81 MG TAB.CHEW 1 Tablet ORAL DAILY Comments: Last Taken:05/05/17 Time:9AM Tiotropium [place] (Spiriva) 18 MCG CAP.W.DEV 1 Capsule Inhale through mouth DAILY Comments: Last Taken:05/05/17 Time:9AM Budesonide/Formoterol Fumarate (Symbicort 160-4.5 Mcg Inhaler) 160 MCG-4.5 MCG/ ACTUATION HFA.AER.AD 2 Puff Inhale through mouth TWICE DAILY Comments: Last Taken:05/05/17 Time:9AM Albuterol Sulfate (Proair Hfa) 90 MCG HFA.AER.AD 2 Puff Inhale through mouth EVERY 4-6 HOURS NEEDED as needed for SHORTNESS OF BREATH Comments: Last Taken:05/05/17 Time:9AM Albuterol Sulfate (Albuterol Sulfate) 2.5 MG/3 ML (0.083 %) VIAL.NEB 1 Vial Inhale Solution EVERY 4 HOURS NEEDED as needed for SHORTNESS OF BREATH Comments: Last Taken:05/05/17 Time:12PM Pantoprazole Sodium (Protonix) 40 MG TABLET.DR 1 Tablet ORAL DAILY Comments: Last Taken: Time:NOT GIVEN IN THE HOSPITAL Atorvastatin Calcium (Lipitor) 10 MG TABLET 1 Tablet ORAL DAILY Comments: Last Taken:05/05/17 Time:9AM Metformin HCl (Glucophage) 1,000 MG TABLET 1 Tablet ORAL TWICE DAILY Comments: NOT GIVEN IN HOSPITAL Diltiazem HCl (Cardizem Cd) 240 MG CAP.ER.24H 480 Milligram ORAL DAILY Days = 30 Comments: Last Taken: Time:05/05/17 Time:9:41 AM Ferrous Sulfate (Ferrous Sulfate) 325 MG TABLET.DR 325 Milligram ORAL TWICE DAILY Days = 30 Comments: Last Taken:05/05/17 Time:9:41 AM Furosemide (Lasix) 40 MG TABLET 1 Tablet ORAL TWICE DAILY Days = 30 Comments: Last Taken:05/05/17 Time:9AM Start taking the following new medications: Amoxicillin/Potassium Clav (Augmentin 875-125 Tablet) 875 MG-125 MG TABLET 1 Tablet ORAL TWICE DAILY Qty = 4 No Refills Instructions: . Comments: Last Taken: Time:NOT GIVEN IN THE HOSPITAL. WILL START AT HOME Prednisone (Prednisone) 10 MG TABLET 1 Tablet ORAL DAILY Qty = 12 No Refills Instructions: . Comments: Last Taken: LAST GIVEN 05/05/17 AT 9AM Time:Take 3 tablets daily for 2 days Take 2 tablets daily for 2 days Take 1 tablet daily for 2 days., Copies To: IRMA LANZA; CONI CR,LANDRY Ford; VICENTE CR,KELSIE Attending MD Review Statement Documenting Attending: AMALIA KRAMER M.D Other Findings: I have reviewed the discharge summaary.
[2017-05-03] MEDS ORDERED: AUGMENTIN 875-1 EACH PO (14:20)
[2017-05-03] MEDS ORDERED: PREDNISONE10 M2 PO (14:20)
--- NOTE | 2017-05-03 14:27 | Patient Discharge Instructions ---
Discharge Instructions General Discharge Information You were seen/treated for: - Acute on chronic hypoxic and hypercarbic respiratory failure - Atrial fibrillation with RVR Special Instructions: 1. Please F/U with your Art Supervisor in one week. 2. Please follow up with your cardiologsit in one week. 3. Please follow up with your primary care physcian in one week. Diet Recommended Diet: Diabetic Activity Activity Self Limited: Yes Acute Coronary Syndrome Inclusion Criteria At DC or during hospital stay patient has or had the following: ACS DIAGNOSIS No Discharge Core Measures Meds if any: Prescribed or Continued at Discharge Meds if any: NOT Prescribed or Continued at Discharge Congestive Heart Failure Inclusion Criteria At DC or during hospital stay patient has or had the following: CHF DIAGNOSIS No Discharge Core Measures Meds if any: Prescribed or Continued at Discharge Meds if any: NOT Prescribed or Continued at Discharge Cerebrovascular accident Inclusion Criteria At DC or during hospital stay patient has or had the following: CVA/TIA Diagnosis No Discharge Core Measures Meds if any: Prescribed or Continued at Discharge Meds if any: NOT Prescribed or Continued at Discharge Venous thromboembolism Inclusion Criteria VTE Diagnosis No VTE Type NONE VTE Confirmed by (Test) NONE Discharge Core Measures - Per Current guidelines, there needs to be overlap - treatment for the first 5 days of Warfarin therapy. - If discharged on Warfarin prior to 5 days of - overlap therapy, the patient will need to be - assessed for post discharge needs including - *Post discharge parental anticoagulation - *Warfarin and/or parental anticoagulation education - *Follow up date to check INR post discharge At least 5 days overlap therapy as Inpatient No Meds if any: Prescribed or Continued at Discharge Note: Overlap Therapy is Warfarin and Anticoagulant Meds if any: NOT Prescribed or Continued at Discharge
[2017-05-03 15:33] VITALS: BP 142/80
--- NOTE | 2017-05-03 15:35 | NUR ---
PT ARRIVED TO FLOOR AT THIS TIME FROM 1 NORTH, ALERT ORIENTED X 3 ON 4L NC LUNGS CLEAR, STATES SOB AT TIMES, TRANSFERRED FROM TO BED, SOME EX SOB AFTER, 93% ON 4L. SKIN INTACT. NO EDEMA. ORIENTED TO ROOM AND USE OF CALL OWEN WILL MONITOR.
[2017-05-03 22:57] VITALS: BP 130/74
--- NOTE | 2017-05-04 07:32 | PN- Housestaff ---
SHON CR,[facility] 05/04/17 0732: Subjective Follow-up For: - Acute on chronic hypoxic hypercarbic respiratory failure 2/2 COPD exacerbation vs CAP PNA vs CHF - Afib with RVR ON Xarelto - MADISON - DM Subjective: Patient was seated examined this morning, offered no complaints. Patient desat on ambulation to 80% while on 4 L oxygen. Had PT evaluation today with suggestion for home/self-care. Patient doesn't discharge today. Review of Systems Constitutional: Reports: see HPI. Objective Last 24 Hrs of Vital Signs/I&O Vital Signs Date Time Temp Pulse Resp B/P B/P Pulse O2 O2 Flow FiO2 Mean Ox Delivery Rate 05/04 1358 98.8 63 20 116/74 94 Nasal 5.0L Cannula 05/04 1349 92 Nasal 5.0L Cannula 05/04 0845 98 Nasal 4.0L Cannula 05/04 0843 93 05/04 0800 94 Nasal 4.0L Cannula 05/04 0745 97.8 87 20 92/62 96 BIPAP 05/04 0524 84 98 05/04 0123 80 96 05/04 0000 96 BIPAP 35% 05/03 2257 98.1 97 20 130/74 96 Room Air 05/03 2250 75 96 05/03 1627 94 Nasal 4.0L Cannula 05/03 1600 Nasal 4.0L Cannula 05/03 1533 97.6 86 24 142/80 91 Nasal 4.0L Cannula Intake & Output 05/04 1600 05/04 0800 05/04 0000 Intake Total 150 Output Total 200 500 Balance -200 -350 Intake, Oral 150 Output, Urine 200 500 Physical Exam General Appearance: Alert, Oriented X3, Cooperative, No Acute Distress Skin: No Rashes, No Breakdown, No Significant Lesion HEENT: Atraumatic, PERRLA, EOMI, Mucous Membr. moist/pink Neck: Supple, No JVD Cardiovascular: Regular Rate, Normal S1, Normal S2, No Murmurs Lungs: bilateral decreased air entry Abdomen: Normal Bowel Sounds, Soft, No Tenderness, No Hepatospenomegaly, No Masses Neurological: Normal Gait, Normal Speech, Strength at 5/5 X4 Ext, Normal Tone, Sensation Intact, Cranial Nerves 3-12 NL, Reflexes 2+ Extremities: No Clubbing, No Cyanosis, No Edema, Normal Pulses, No Tenderness/ Swelling Assessment/Plan Assessment: Mr. Vieira is 66-year-old gentleman with PMH significant for COPD (on 4L of O2 at baseline with nightime BiPAP - very compliant), DM, HTN, TIA, atrial fibrillation (on diltiazem and xarelto), HFrEF(EF 45%, decreased global function , RV pressure 45 mm) presented to on 05/01/17 for progressively worsening shortness of breath. Assessment and Plan #Acute on chronic hypoxic and hypercarbic respiratory failure. -Most likely 2/2 PNA (CT revealed radiological signs concerning for PNA) vs COPD exacerbation versus CHF (pt was euvolemic on exam) -ContinueCeftriaxone and Azithromycin for now. -Contineu nocturnal BiPAP ,and 4.0liters of O2 via nasal cannula to maintain sats > 88% F/U LRC of any -Continue Prednisone 40 2, 302, 202, 102 and then stop -ACS was ruled out with troponins and EKG negative for any acute changes. -TRC/ Nebs -Will ambulate him and get pulse o2 -F/U R CXR today to F/U on PNA -F/U pulm consult with Dr. So. # Atrial Fibrillation with rapid RVR - Most likely 2/2 PNA - Was on Cardizem drip, HR much better controlled now, will D/C Cardizem drip. - Continue Cardizem 480mg daily. - F/U Echo to r/o RWMA, and F/U cardio recs #M[place]ISON -Most likely pre-renal since patient was diuresed with IV Laisx 40mg BID and is in almost 1300mls net negative fluid balance. -Continue to hold Lasix, cr is stable -F/U BEP in AM #4 Diabetes mellitus -3 times a day Accu-Cheks - Eleavted FSG's - 2/2 steroids. - Hold metformin - Continue NovoLog sliding scale #6 Microcytic anemia -Chronic (most likely 2/2 nutritional) -Continue iron tablets #7 Hyperlipidemia -Continue home medications DVT prophylaxis -Xarelto Full code -Diabetic diet Problem List: 1. COPD (chronic obstructive pulmonary disease) 2. Atrial fibrillation with rapid ventricular response Pain Ratin Pain Location: NONE Pain Goal: Pain 4 or less Pain Plan: Mild pain pathway Tomorrow's Labs & Rationales: BMP Consulting Request: Consulting Specialty: Pulmonary Disease WILLIAMS CR,AMALIA 05/04/17 0757: Attending MD Review Statement Attending Statement Attending MD Statement: examined this patient, discuss w/resident/PA/FELT CHECKER, agreed w/resident/PA/FELT CHECKER, reviewed EMR data (avail), discussed with nursing, discussed with case mgmt, amended to note Attending Assessment/Plan: Patient seen and examined. Resting comfortably and not in any acute distress. Tolerated BiPAP therapy overnight. No new complaints this morning. Denies chest pain. Denies shortness of breath at rest. On examination he has good entry bilaterally and lungs are clear to auscultation. Abdomen is soft and nontender. After evaluated patient this morning he ambulated with the nursing staff was reported to desaturated to 80% on oxygen supplementation. He however improved with rest. He reports that he walks about that same distance at home. While sitting in bed resting he reports becoming agitated and checked his pulse ox. He was found to saturating 80% at that time. Nurses staff reports that he was very agitated. He was prescribed a dose of Xanax and improved. Did reevaluate him in the afternoon and found him looking cheerfully and not in any distress. His lungs are clear to auscultation bilaterally. He is very anxious about being discharged home today and does not feel that his optimal for discharge yet. Case discussed with pulmonary service, recommendations are to continue IV antibiotics. Recommendations: -Continue IV Rocephin/instrument seen as recommended by the pulmonology service. -Continue prednisone. We'll taper down upon discharge. -I agree with low dose anxiolytic therapy for now. -His blood glucose levels are in the 300s. I did scholarship counselor him about dietary indiscretion. He had a bottle of Coca[employer] in front of him. He is adamant on eating and drinking whatever he wants. He is currently being covered with sliding scale coverage.
[2017-05-04 07:45] VITALS: BP 92/62
--- NOTE | 2017-05-04 09:18 | ECHOCARDIOGRAM REPORT ---
COURTNEY MURCIA Age: 66 : 1950 Gender: M Exam Date: 05/03/2017 16:25 Exam Location: [address] [place] [address] A Ht (in): 71 Wt (lb): 182 BSA: 2.04 BP: 118 / 70 Ordering Physician: THALIA BLOCK, Referring Physician: Landry Walton MD Chief, SoC Technologist: Soni Schwartz [facility] Room Number: 224-02 Indications: HEART FAILURE Rhythm: Atrial fibrillation Technical Quality: Good tomorrow with the MRI in the office the morning FINDINGS Left Ventricle Mild left ventricular dilatation. Moderate concentric left ventricular hypertrophy. Moderately reduced global left ventricular systolic function. No obvious regional wall motion abnormalities. Left ventricular ejection fraction is estimated at 35-40 %. Right Ventricle Mild right ventricular dilatation. Right Atrium Mild to moderate right atrial dilatation. Left Atrium Moderate left atrial dilatation. Mitral Valve Mild thickening/calcification of the mitral valve leaflets. Moderate mitral regurgitation. Aortic Valve Focal thickening of the aortic valve cusps. No aortic stenosis. No aortic regurgitation. Tricuspid Valve Tricuspid valve is normal in structure and function. Mild tricuspid regurgitation. Right ventricular systolic pressure estimated to be elevated at 60-65 mmHg. Moderate to severe pulmonary hypertension. Pulmonic Valve Pulmonic valve not well visualized, grossly normal. Trace pulmonic regurgitation. Pericardium No pericardial or pleural effusion. Great Vessels Normal size aortic root. Dilated IVC CONCLUSIONS Moderate concentric left ventricular hypertrophy. Moderately reduced global left ventricular systolic function. Left ventricular ejection fraction is estimated at 35-40 %. Mild right ventricular dilatation. Mild to moderate right atrial dilatation. Moderate left atrial dilatation. Mild thickening/calcification of the mitral valve leaflets. Moderate mitral regurgitation. Focal thickening of the aortic valve cusps. No aortic stenosis. Right ventricular systolic pressure estimated to be elevated at 60- 65 mmHg. Moderate to severe pulmonary hypertension. Dilated IVC. Landry Walton M.D. (Electronically Signed) Final Date: 04 May 2017 09:17 MEASUREMENTS (Male / Female) Normal Values 2D ECHO LV Diastolic Diameter PLAX 6.2 cm 4.2 - 5.9 / 3.9 - 5.3 cm LV Systolic Diameter PLAX 4.9 cm 2.1 - 4.0 cm LV Fractional Shortening PLAX 21.0 % 25 - 46 % LV Ejection Fraction 2D Teich 41.8 % IVS Diastolic Thickness 1.4 cm LVPW Diastolic Thickness 1.4 cm LV Relative Wall Thickness 0.5 RV Internal Dim ED PLAX 3.8 cm 1.9 - 3.8 cm LVOT Diameter 1.9 cm Aortic Root Diameter 3.3 cm LA Systolic Diameter LX 5.2 cm 3.0 - 4.0 / 2.7 - 3.8 cm LV Ejection Fraction MOD BP 39.4 % >= 55 % LV Diastolic Length 4C 8.0 cm 6.9 - 10.3 cm LV Diastolic Area 4C 43.0 cm LV Diastolic Volume MOD 4C 192.0 cm LV Ejection Fraction MOD 4C 39.1 % LV Stroke Volume MOD 4C 75.0 cm LV Systolic Length 4C 7.7 cm LV Systolic Area 4C 32.5 cm LV Systolic Volume MOD 4C 117.0 cm LV Ejection Fraction MOD 2C 43.3 % LV Diastolic Volume 4C AL 195.7 cm 85 - 139 / 69 - 109 cm LV Systolic Volume 4C AL 117.1 cm LV Ejection Fraction 4C AL 40.2 % LV Stroke Volume 4C AL 78.7 cm LV Ejection Fraction 2C AL 44.4 % LA Volume 96.0 cm 18 - 58 / 22 - 52 cm Ascending Aorta Diameter 3.3 cm DOPPLER AV Peak Velocity 163.0 cm/s AV Peak Gradient 10.6 mmHg AV Mean Velocity 108.0 cm/s AV Mean Gradient 6.0 mmHg AV Velocity Time Integral 28.9 cm LVOT Peak Velocity 139.0 cm/s LVOT Peak Gradient 7.7 mmHg LVOT Mean Velocity 84.7 cm/s LVOT Mean Gradient 3.0 mmHg LVOT Velocity Time Integral 23.5 cm LVOT Stroke Volume 66.6 cm AV Area Cont Eq vti 2.3 cm AV Area Cont Eq pk 2.4 cm MV Peak Velocity 176.0 cm/s MV Peak Gradient 12.4 mmHg MV Mean Velocity 69.9 cm/s MV Mean Gradient 3.0 mmHg Mitral E Point Velocity 103.0 cm/s MV PHT Velocity 182.0 cm/s MV Deceleration [place] 1388.0 cm/s MV Pressure Half Time 39.3 ms MV Area PHT 5.6 cm MV Deceleration Time 141.0 ms TR Peak Velocity 354.0 cm/s TR Peak Gradient 50.1 mmHg Right Atrial Pressure 10.0 mmHg Pulmonary Artery Systolic Pressu 60.1 mmHg Right Ventricular Systolic Press 60.1 mmHg PV Peak Velocity 130.0 cm/s PV Peak Gradient 6.8 mmHg PV Mean Velocity 84.0 cm/s PV Mean Gradient 3.0 mmHg PV Velocity Time Integral 21.9 cm LV E' Lateral Velocity 13.4 cm/s Mitral E to LV E' Lateral Ratio 7.7 LV E' Septal Velocity 4.8 cm/s Mitral E to LV E' Septal Ratio 21.5
--- NOTE | 2017-05-04 10:20 | PN- Pulmonary ---
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 He is being treated for pnuemonia. This morning while walking he desturated, still dyspneic this am. Objective Current Medications: Current Medications Sig/Eve Start time Last Medication Dose Route Stop Time Status Admin Acetaminophen 325 MG Q6 PRN 05/01 1000 AC PO Albuterol Sulfate 3 ML EVERY 4 HRS/AWAKE 05/01 1600 AC 05/04 INH 0843 Albuterol Sulfate 2 PUF Q4-6 PRN PRN 05/01 1115 AC INH Albuterol Sulfate 3 ML Q4P PRN 05/01 1115 AC INH Aspirin 81 MG DAILY 05/02 1000 AC 05/04 PO 0832 Atorvastatin Calcium 10 MG 1700 05/02 1700 AC 05/03 PO 2055 Azithromycin 500 MG DAILY 05/01 1105 AC 05/04 Sodium Chloride 250 ML IV 0953 Budesonide/ 2 PUF BID 05/01 2200 AC 05/04 Formoterol Fumarate INH 0827 Ceftriaxone Sodium 1,000 MG DAILY 05/01 1105 AC 05/04 IV 0832 Diltiazem HCl 480 MG DAILY 05/02 1000 AC 05/04 PO 0828 Ferrous Sulfate 325 MG BID 05/01 2200 AC 05/04 PO 0828 Guaifenesin 600 MG Q12 05/02 2200 AC 05/04 PO 0828 Insulin Aspart 0 TIDAC 05/01 1200 AC 05/04 SC 0830 Morphine Sulfate 1 MG Q4 PRN 05/01 1000 AC IV Omeprazole 40 MG DAILY AC 05/02 0700 AC 05/04 PO 0630 Oxycodone HCl 5 MG Q6 PRN 05/01 1000 AC PO Prednisone 40 MG DAILY 05/03 1000 AC 05/04 PO 0829 Rivaroxaban 20 MG DAILY 05/02 1000 AC 05/04 PO 0829 Tiotropium [place] 1 PUF DAILY 05/02 1000 AC 05/04 INH 0830 Vital Signs & I&O Last 24 Hrs of Vitals and I&O: Vital Signs Date Time Temp Pulse Resp B/P B/P Pulse O2 O2 Flow FiO2 Mean Ox Delivery Rate 05/04 0843 93 05/04 0745 97.8 87 20 92/62 96 BIPAP 05/04 0524 84 98 05/04 0123 80 96 05/04 0000 96 BIPAP 35% 05/03 2257 98.1 97 20 130/74 96 Room Air 05/03 2250 75 96 05/03 1627 94 Nasal 4.0L Cannula 05/03 1600 Nasal 4.0L Cannula 05/03 1533 97.6 86 24 142/80 91 Nasal 4.0L Cannula Intake & Output 05/04 1600 05/04 0800 05/04 0000 Intake Total 150 Output Total 500 Balance -350 Intake, Oral 150 Output, Urine 500 Exam General Appearance: alert, awake, comfortable Head: atraumatic, normal appearance Neck: normal inspection Respiratory: minimal wheeze Cardiovascular: irregularly irregular Abdomen: normal bowel sounds, soft, non-tender Extremities: no edema Neurologic/Psychiatric: awake, alert, oriented x 3 Results Last 24 Hrs of Lab Results: Laboratory Tests 05/04/17 0650: Anion Gap 7, Estimated GFR 51 L, BUN/Creatinine Ratio 24.3 Impression/Plan Impression/Plan Impression/Plan: 66-year-old man with acute on chronic hypercarbic respiratory failure, 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 Today is day 4 of abx for treatment of community aquired pneumonia. Dyspneic this am and desaturated this morning while ambulating. Recommendations: Continue IV abx today, will lower dose of prednisone today. Continue Spiriva once daily and Symbicort 2 puffs BID with oral rinsing. Proair PRN. Use BiPAP nocturnally. TRC/nebulizers. MARK ZHANG MD 05/04/17 1200: Impression/Plan Impression/Plan Impression/Plan: Mark Mckenna M.D. have examined this patient, reviewed available EMR data, personally reviewed images, discussed with resident/PA/FOOD SERVICES MANAGER, discussed management plan with housestaff and nursing staff, discussed managment plan all of healthcare providers, discussed management plan with patient and/or family, agreed with resident/PA/FOOD SERVICES MANAGER. The past history and parts of the chart have been autopopulated.
[2017-05-04 13:58] VITALS: BP 116/74
--- NOTE | 2017-05-04 15:34 | NUR ---
SHIFT NOTE: PATIENT AMBULATED WITH PT THIS AM. DESATURATED TO LOW 80'S ON 4LO2. O2 INCREASED TO 5LO2 PER RESPIRATORY THERPAIST. PATIENT REMAINS SOB AT REST. DISCUSSED THE POSSIBILITY OF ANXIETY INDUCED SOB WITH DR. KRAMER. PATIENT IN AGREEMENT THAT HE IS ANXIOUS WHEN HE GETS SOB AT REST. XANAX PRN ORDERED FOR THE PATIENT. OTHERWISE, OFFERS NO COMPLAINTS. REPORT GIVEN TO DONALD RN, MARIA
[2017-05-04 22:06] VITALS: BP 130/66
[2017-05-05 06:29] VITALS: BP 120/60
--- NOTE | 2017-05-05 07:36 | PN- Housestaff ---
HAYDEE RANGEL 05/05/17 0735: Subjective Follow-up For: Hypercarbic and hypoxic respiratory failure Complaints: no complaints Subjective: Pt comfortable. No complaints. He was concerned about the diet. No shortness of breath, chest pain, no tachycardia. Remained afebrile overngiht. Vitals stable. Currently oxygen sat- 98% 4L (baseline home oxygen ). Review of Systems Constitutional: Reports: see HPI. Objective Last 24 Hrs of Vital Signs/I&O Vital Signs Date Time Temp Pulse Resp B/P B/P Pulse O2 O2 Flow FiO2 Mean Ox Delivery Rate 05/05 0629 98.7 96 20 120/60 98 Nasal 4.5L Cannula 05/05 0056 85 93 05/05 0000 Nasal 4.5L Cannula 05/04 2252 87 96 05/04 2206 99.1 93 20 130/66 100 Nasal 4.5L Cannula 05/04 1625 94 Nasal 5.0L Cannula 05/04 1600 Nasal 4.5L Cannula 05/04 1358 98.8 63 20 116/74 94 Nasal 5.0L Cannula 05/04 1349 92 Nasal 5.0L Cannula 05/04 0845 98 Nasal 4.0L Cannula 05/04 0843 93 05/04 0800 94 Nasal 4.0L Cannula 05/04 0745 97.8 87 20 92/62 96 BIPAP Intake & Output 05/05 0800 05/05 0000 05/04 1600 Intake Total 240 1400 Output Total 200 800 Balance 40 600 Intake, Oral 240 1400 Number 1 Bowel Movements Output, Urine 200 800 Patient 193 lb Weight Weight Standing Scale Measurement Method Physical Exam General Appearance: No Acute Distress Other Physical Findings: General Exam: AAOx3, No acute distress, Skin: No rashes, no breakdown HEENT: PERRLA, EOMI Neck: Supple, No JVD No cervical lymphadenopathy CVS: Reg Rate, Normal S1,S2, No MGR Resp: Decreased air entry, no ronchi/rales Abdomen: Soft, No tenderness, Normal Bowel Sounds Neuro: Normal Speech, Strength 5/5 b/l x 4 extremities, Sensation intact, CN III -XII NL, Reflexes 2+ Extremities: No cyanosis, pedal edema Current Medications: Current Medications Sig/Eve Start time Last Medication Dose Route Stop Time Status Admin Acetaminophen 325 MG Q6 PRN 05/01 1000 AC PO Albuterol Sulfate 3 ML EVERY 4 HRS/AWAKE 05/01 1600 AC 05/04 INH 2040 Albuterol Sulfate 2 PUF Q4-6 PRN PRN 05/01 1115 AC 05/04 INH 1328 Albuterol Sulfate 3 ML Q4P PRN 05/01 1115 AC INH Alprazolam 0.25 MG DAILY PRN 05/04 1400 AC PO 05/11 1359 Aspirin 81 MG DAILY 05/02 1000 AC 05/04 PO 0832 Atorvastatin Calcium 10 MG 1700 05/02 1700 AC 05/04 PO 1651 Azithromycin 500 MG DAILY 05/01 1105 AC 05/04 Sodium Chloride 250 ML IV 0953 Budesonide/ 2 PUF BID 05/01 2200 AC 05/04 Formoterol Fumarate INH 2200 Ceftriaxone Sodium 1,000 MG DAILY 05/01 1105 AC 05/04 IV 0832 Diltiazem HCl 480 MG DAILY 05/02 1000 AC 05/04 PO 0828 Ferrous Sulfate 325 MG BID 05/01 2200 AC 05/04 PO 2200 Guaifenesin 600 MG Q12 05/02 2200 AC 05/04 PO 2200 Insulin Aspart 0 TIDAC 05/01 1200 AC 05/04 SC 1651 Morphine Sulfate 1 MG Q4 PRN 05/01 1000 DC IV Omeprazole 40 MG DAILY AC 05/02 0700 AC 05/05 PO 0519 Oxycodone HCl 5 MG Q6 PRN 05/01 1000 AC PO Patient Medication 1 ED .STK-MED ONE 05/04 1406 TN Teaching ED 05/04 1407 Prednisone 40 MG DAILY 05/03 1000 AC 05/04 PO 0829 Rivaroxaban 20 MG DAILY 05/02 1000 AC 05/04 PO 0829 Tiotropium [place] 1 PUF DAILY 05/02 1000 AC 05/04 INH 0830 Last 24 Hrs of Lab/Sridhar Results Last 24 Hrs of Labs/Mics: Laboratory Tests 05/05/17 0623: Sodium Pending, Potassium Pending, Chloride Pending, Carbon Dioxide Pending, Anion Gap Pending, BUN Pending, Creatinine Pending, BUN/Creatinine Ratio Pending Assessment/Plan Assessment: Mr. Vieira is 66-year-old gentleman with PMH significant for COPD (on 4L of O2 at baseline with nightime BiPAP - very compliant), DM, HTN, TIA, atrial fibrillation (on diltiazem and xarelto), HFrEF(EF 45%, decreased global function , RV pressure 45 mm) presented to on 05/01/17 for progressively worsening shortness of breath. Assessment and Plan #Acute on chronic hypoxic and hypercarbic respiratory failure. -Most likely 2/2 PNA (CT revealed radiological signs concerning for PNA) vs COPD exacerbation versus CHF (pt was euvolemic on exam) -Discontinued Ceftriaxone and Azithromycin for now. Augmentin for a total of 7 days of antibiotics. -Contineu nocturnal BiPAP ,and 4.0liters of O2 via nasal cannula to maintain sats > 88% F/U LRC of any -Continue Prednisone 302, 202, 102 and then stop -ACS was ruled out with troponins and EKG negative for any acute changes. -TRC/ Nebs -Will ambulate him and get pulse o2 -F/U R CXR today to F/U on PNA -F/U pulm consult with Dr. So. # Atrial Fibrillation with rapid RVR - Most likely 2/2 PNA - Continue Cardizem 480mg daily. - F/U Echo to r/o RWMA, and F/U cardio recs #[place] -Most likely pre-renal since patient was diuresed with IV Laisx 40mg BID and is in almost 1300mls net negative fluid balance. -Continue to hold Lasix, cr is stable -F/U BEP in AM #4 Diabetes mellitus -3 times a day Accu-Cheks - Eleavted FSG's - 2/2 steroids. - Hold metformin - Continue NovoLog sliding scale #6 Microcytic anemia -Chronic (most likely 2/2 nutritional) -Continue iron tablets #7 Hyperlipidemia -Continue home medications DVT prophylaxis -Xarelto Full code -Diabetic diet Problem List: 1. Atrial fibrillation with rapid ventricular response 2. Pneumonia 3. Lower extremity edema 4. Diabetes mellitus 5. GERD (gastroesophageal reflux disease) Pain Ratin Pain Location: None Pain Goal: Pain 4 or less Pain Plan: Tylenol Tomorrow's Labs & Rationales: no labs necessary. pt to be discharged. Consulting Request: Consulting Specialty: Pulmonary Disease AMALIA KRAMER MD 05/05/17 1148: Attending Review Statement Attending Statement Attending Statement: examined this patient, discuss w/resident/PA/HEAD PIECE ASSEMBLER, agreed w/resident/PA/HEAD PIECE ASSEMBLER, reviewed EMR data (avail), discussed with nursing, discussed with case mgmt, amended to note Attending Assessment/Plan: Patient seen and examined. Resting comfortably and not in any acute distress. No issues overnight. No events on telemetry patient seen and examined. Resting comfortably and not in acute distress. He has maintained his saturation on oxygen supplementation. Denies shortness of breath or cough at rest. Continues to complain of dyspnea with exertion however these patients baseline for his advanced COPD. His blood glucose levels have been on the high side. Patient however is frustrated that he is being placed on a carbohydrate controlled diet. His sister and eating whatever he wants. He reports that he has the same bottle of Coca-[employer]a on his table he had yesterday. On examination lungs are clear to auscultation bilaterally he has good air entry. He remains medically stable to be discharged. He feels more comfortable with being discharged today. He'll be discharged into the company of his later on this afternoon. He'll be discharged on a prednisone taper and antibiotic regimen to complete 7 days of treatment.
--- NOTE | 2017-05-05 10:20 | PN- Pulmonary ---
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 Feels better this morning, oxygen saturations have been >92%. Objective Current Medications: Current Medications Sig/Eve Start time Last Medication Dose Route Stop Time Status Admin Acetaminophen 325 MG Q6 PRN 05/01 1000 AC PO Albuterol Sulfate 3 ML EVERY 4 HRS/AWAKE 05/01 1600 AC 05/05 INH 0758 Albuterol Sulfate 2 PUF Q4-6 PRN PRN 05/01 1115 AC 05/04 INH 1328 Albuterol Sulfate 3 ML Q4P PRN 05/01 1115 AC INH Alprazolam 0.25 MG DAILY PRN 05/04 1400 AC PO 05/11 1359 Aspirin 81 MG DAILY 05/02 1000 AC 05/05 PO 0848 Atorvastatin Calcium 10 MG 1700 05/02 1700 AC 05/04 PO 1651 Azithromycin 500 MG DAILY 05/01 1105 AC 05/05 Sodium Chloride 250 ML IV 0847 Budesonide/ 2 PUF BID 05/01 2200 AC 05/05 Formoterol Fumarate INH 0849 Ceftriaxone Sodium 1,000 MG DAILY 05/01 1105 AC 05/05 IV 0846 Diltiazem HCl 480 MG DAILY 05/02 1000 AC 05/05 PO 0847 Ferrous Sulfate 325 MG BID 05/01 2200 AC 05/05 PO 0848 Guaifenesin 600 MG Q12 05/02 2200 AC 05/05 PO 0846 Insulin Aspart 0 TIDAC 05/01 1200 AC 05/05 SC 0848 Morphine Sulfate 1 MG Q4 PRN 05/01 1000 DC IV Omeprazole 40 MG DAILY AC 05/02 0700 AC 05/05 PO 0519 Oxycodone HCl 5 MG Q6 PRN 05/01 1000 AC PO Patient Medication 1 ED .STK-MED ONE 05/04 1406 DC Teaching ED 05/04 1407 Prednisone 40 MG DAILY 05/03 1000 AC 05/05 PO 0846 Rivaroxaban 20 MG DAILY 05/02 1000 AC 05/05 PO 0846 Tiotropium [place] 1 PUF DAILY 05/02 1000 AC 05/05 INH 0848 Vital Signs & I&O Last 24 Hrs of Vitals and I&O: Vital Signs Date Time Temp Pulse Resp B/P B/P Pulse O2 O2 Flow FiO2 Mean Ox Delivery Rate 05/05 0819 96 Nasal 4.5L Cannula 05/05 0754 85 98 05/05 0629 98.7 96 20 120/60 98 Nasal 4.5L Cannula 05/05 0056 85 93 05/05 0000 Nasal 4.5L Cannula 05/04 2252 87 96 05/04 2206 99.1 93 20 130/66 100 Nasal 4.5L Cannula 05/04 1625 94 Nasal 5.0L Cannula 05/04 1600 Nasal 4.5L Cannula 05/04 1358 98.8 63 20 116/74 94 Nasal 5.0L Cannula 05/04 1349 92 Nasal 5.0L Cannula Intake & Output 05/05 1600 05/05 0800 05/05 0000 Intake Total 240 Output Total 425 200 Balance -425 40 Intake, Oral 240 Number 1 Bowel Movements Output, Urine 425 200 Patient 193 lb Weight Weight Standing Scale Measurement Method Exam General Appearance: alert, awake, comfortable Head: atraumatic, normal appearance Neck: normal inspection Respiratory: normal breath sounds, quiet respiration Cardiovascular: regular rate/rhythm Abdomen: normal bowel sounds, soft, non-tender Extremities: no edema Neurologic/Psychiatric: awake, alert, oriented x 3 Results Last 24 Hrs of Lab Results: Laboratory Tests 05/05/17 0623: Anion Gap 5, Estimated GFR 55 L, BUN/Creatinine Ratio 21.5 Diagnostic Data US Findings: 1. No evidence of urinary tract obstruction. 2. There appears to be a 0.4 x 1 cm calculus in the interpolar region of the left kidney. 3. Urinary bladder is unremarkable. 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 Recommendations: Stop abx today, Change to prednisone 30mg with 2 day taper. Ok to discharge home today from pulmonology standpoint. Continue outpatient inhalers. MARK ZHANG MD 05/05/17 1312: Impression/Plan Impression/Plan Recommendations: I, Mark Saray, M.D. have examined this patient, reviewed available EMR data, personally reviewed images, discussed with resident/PA/TOP TILE DECORATOR, discussed management plan with housestaff and nursing staff, discussed managment plan all of healthcare providers, discussed management plan with patient and/or family, agreed with resident/PA/TOP TILE DECORATOR. The past history and parts of the chart have been autopopulated. dc planning watch off abx taper steroids f/u in office
[2017-05-05] MEDS ORDERED: AUGMENTIN 875-1 EACH PO ×2 (10:49→11:02)
[2017-05-05] MEDS ORDERED: PREDNISONE10 M2 PO (11:03)
[2017-05-05 14:30] VITALS: BP 130/70
== END 2017-05-05 17:18 | disposition home health service (06) | DRG 189 ==
LOC: ERH 06:27 → 1NO 09:42 → ERHI 09:42 → ENRESERV 10:30 → ENTRNSPT 12:19 → EDTRNSPTTYP 12:25 → EDTRNSPTSTS 12:25 → 1NO 12:40 → CMPTRNSPT 12:42 → 2NA 05-03 15:32 → ENPENDDIS 05-05 11:28 → 2NA 05-05 17:18
PROVIDERS: Pediatrics; Student in an Organized Health Care Education/Training Program; ADMIT Internal Medicine
PROC: 5A09457 Assistance with Respiratory Ventilation, 24-96 Consecutive Hours, Continuous Positive Airway Pressure (ICD-10-PCS; principal; 2017-05-01)
DX: J96.21 Acute and chronic respiratory failure with hypoxia (principal); J18.9 Pneumonia, unspecified organism; N17.9 Acute kidney failure, unspecified; I11.0 Hypertensive heart disease with heart failure; I27.2 Other secondary pulmonary hypertension; I50.22 Chronic systolic (congestive) heart failure; J44.1 Chronic obstructive pulmonary disease with (acute) exacerbation; J44.0 Chronic obstructive pulmonary disease with (acute) lower respiratory infection; J96.22 Acute and chronic respiratory failure with hypercapnia; E11.9 Type 2 diabetes mellitus without complications; Z86.73 Personal history of transient ischemic attack (TIA), and cerebral infarction without residual deficits; Z79.01 Long term (current) use of anticoagulants; E78.5 Hyperlipidemia, unspecified; K21.9 Gastro-esophageal reflux disease without esophagitis; Z87.891 Personal history of nicotine dependence
CPT/HCPCS: 1NSP; 2NASP; 36415; 76775; 81003; 82436; 87040; 87070; 87086; 87449; 93005; 93010; 93306; 96365; 96366; 96374; 96375; 97161-GP; 99291; J0456; J0696; J1815; J1940; J2920; J2930; J3490; J7040

== ENCOUNTER 2017-12-25 18:21 | Inpatient (IN) | payer OTHER ==
[~2017-12-25] VITALS: Ht 180.3 cm; Wt 83.5 kg
[~2017-12-25 18:21] MED LIST changes: +AUGMENTIN 875-1 EACH PO
--- NOTE | 2017-12-25 18:50 | ED CARDIAC/CP/PALPITATIONS ---
History of Present Illness General Chief Complaint: Dyspnea (COPD, CHF, Other) Stated Complaint: "CANT BREATH" Source: patient Exam Limitations: no limitations Vital Signs & Intake/Output Vital Signs & Intake/Output Vital Signs Date Time Temp Pulse Resp B/P B/P Pulse O2 O2 Flow FiO2 Mean Ox Delivery Rate 12/26 0040 98.2 106 20 109/82 97 Venti Mask 5.0L 12/25 2157 99.4 93 20 118/58 94 Venti Mask 5.0L 12/25 1930 99.2 105 20 115/55 94 Venti Mask 5.0L 12/25 191 94 Venti Mask 35% 12/25 1905 Venti Mask 12/25 183 98.5 78 30 124/63 81 Nasal 4.0L Cannula ED Intake and Output 12/26 0000 12/25 1200 Intake Total Output Total Balance Patient 175 lb Weight Weight Reported by Patient Measurement Method Allergies Coded Allergies: NO KNOWN ALLERGIES (02/05/16) Reconcile Medications Albuterol Sulfate (Proair Hfa) 90 MCG HFA.AER.AD 2 PUF INH Q4-6 PRN PRN SHORTNESS OF BREATH (Reported) Albuterol Sulfate 2.5 MG/3 ML (0.083 %) VIAL.NEB 1 Vial INH/ABILIO Q4P PRN SHORTNESS OF BREATH (Reported) Aspirin (Aspirin*) 81 MG TAB.CHEW 1 TAB PO DAILY HEART HEALTH (Reported) Atorvastatin Calcium (Lipitor) 10 MG TABLET 1 TAB PO DAILY CHOLESTEROL ( Reported) Budesonide/Formoterol Fumarate (Symbicort 160-4.5 Mcg Inhaler) 160 MCG-4.5 MCG/ ACTUATION HFA.AER.AD 2 PUF INH BID SHORTNESS OF BREATH (Reported) Diltiazem HCl (Cardizem Cd) 240 MG CAP.ER.24H 480 MG PO DAILY Atrial fibrillation Ferrous Sulfate 325 MG TABLET.DR 325 MG PO BID Iron supplement Furosemide (Lasix) 40 MG TABLET 1 TAB PO BID Water pill Metformin HCl (Glucophage) 1,000 MG TABLET 1 TAB PO BID DIABETES (Reported) Pantoprazole Sodium (Protonix) 40 MG TABLET.DR 1 TAB PO DAILY ACID REFLUX ( Reported) Prednisone 20 MG TABLET 10 MG PO DAILY COPD please take 4 tab(40 mg) on 08/11/17 please take 3 tab(30 mg) on the 08/11-08/14 please take 2 tab(20 mg) on 08/15-08/17 please take 1 tab (10 mg) on 08-18-08/20 Rivaroxaban (Xarelto) 20 MG TABLET 1 TAB PO DAILY BLOOD THINNER (Reported) with food Tiotropium [place] (Spiriva) 18 MCG CAP.W.DEV 1 CAP INH DAILY SHORTNESS OF BREATH (Reported) Triage Note: PT FROM HOME C/O DYSNPEA ON 4LNC BASELINE SAT 02 81%. THIS RN MOVED PT IMMEDIATELY TO [place] [facility] PT ON 6L NC, MANAGER UNIX INFORMED. PTS STATES THAT PT DEVELOPED A COUGH YESTERDAY WITH YELLOW/GREEN SPUTUM. PTS STATES THIS MORNING PT WAS LETHARGIC AND "OUT OF IT" PT HAS HX OF COPD. PT PALE IN TRIAGE AND BELLY BREATHING. PTS BP STABLE, AFEBRILE. Triage Nurses Notes Reviewed? yes Onset: Gradual Duration: getting worse Timing: recent history HPI: Patient is a 67-year-old with a past medical history of COPD currently on 4 L of oxygen at all times, BiPAP compliant, all Dr. So, diabetes, hypertension, TIA, atrial fibrillation currently on Xarelto that the , ejection fracture last noted July 2017 30-35%, moderate to severe pulmonary hypertension who presents to emergency room with a 5 day history of dry persistent cough were symptoms of cough shortness of breath leg swelling has significantly worsened unresolved with breathing treatments at home steroid maintenance at home and diuretics at home, patient denies any chest pain arm pain jaw pain noted to have tactile fevers no sick contacts at home (Massimo ALARCON,Greg) Past History Travel History Traveled to [place] past 21 day No Medical History Any Pertinent Medical History? see below for history Neurological: TIA EENT: cataracts Cardiovascular: AFIB, CHF, hypertension, hyperlipidemia Respiratory: COPD, 4L O2 DEPENDENT BIPAP AT NIGHT Gastrointestinal: GERD, ABD ANEURYSM Hepatic: NONE Renal: NONE Musculoskeletal: NONE Psychiatric: NONE Endocrine: DIABETE Blood Disorders: NONE Cancer(s): prostate cancer RESIDENT CARE SPEC/Reproductive: NONE History of MRSA: No History of VRE: No History of CDIFF: No Surgical History Surgical History: cataract removal, PROSTATE SURGERY AAA REPAIR TONSILLECTOMY Psychosocial History Who do you live with Spouse Services at Home None What is your primary language [place] Tobacco Use: Quit >30 days ago Family History Family History, If Any: MOTHER, ; Cause: COPD (chronic obstructive pulmonary disease). FATHER, ; Cause: Myocardial infarct. SISTER, ; Cause: Myocardial infarct. Hx Contributory? No (Greg Braga) Review of Systems Review of Systems Constitutional: Reports: see HPI. EENTM: Reports: no symptoms. Respiratory: Reports: see HPI, cough, short of breath. Cardiovascular: Reports: no symptoms. GI: Reports: no symptoms. Genitourinary: Reports: no symptoms. Musculoskeletal: Reports: no symptoms. Skin: Reports: no symptoms. Neurological/Psychological: Reports: no symptoms. Hematologic/Endocrine: Reports: no symptoms. Immunologic/Allergic: Reports: no symptoms. All Other Systems: Reviewed and Negative (Greg Braga) Physical Exam Physical Exam General Appearance: mild distress Head: atraumatic Eyes: Bilateral: normal appearance, PERRL. Ears, Nose, Throat: normal pharynx, normal ENT inspection Neck: normal inspection Respiratory: quiet respiration, decreased breath sounds, respiratory distress Cardiovascular: tachycardia, irregularly irregular Peripheral Pulses: 2+ radial (R) Gastrointestinal: tenderness Extremities: pedal edema Neurologic/Psych: no motor/sensory deficits Skin: intact Core Measures ACS in differential dx? Yes CVA/TIA Diagnosis No Sepsis Present: No Sepsis Focused Exam Completed? No (Greg Braga) Progress Differential Diagnosis: AMI, aortic dissection, atrial fibrillation, cholecystitis, CHF/pulm edema, costochondritis, hyperkalemia, hypovolemia, hyperthyroid, hyperventilation, intracranial hemorrhage, musculoskeletal pain, myocarditis, pancreatitis, pericarditis, pneumonia, pneumothorax, PSVT, pulmonary embolism, PUD/GERD, PVCs/PACs, respiratory failure, rib fracture, sepsis, unstable angina, V-fib/V-Tach, WPW syndrome Diagnostic Imaging: Viewed by Me: CT Scan. Discussed w/RAD: CT Scan. Radiology Impression: SEE COMMENTS Initial ED EKG: AFIB (94 BPM) Prior EKG: unchanged Comments: PATIENT: CUORTNEY MURCIA PRESENT AGE: 67 PATIENT ACCOUNT NO: [id number] : 49 LOCATION: [facility] ORDERING PHYSICIAN: Greg ALARCON SERVICE DATE: 12/25/17 EXAM TYPE: CAT - CT ABD & PELVIS W IV CONTRAST; CTA CHEST-PULMONARY EMBOLISM EXAMINATION: CHEST CTA PULMONARY EMBOLISM CT ABDOMEN AND PELVIS WITH CONTRAST CLINICAL INFORMATION: COPD. Shortness of breath. Abdominal pain. COMPARISON: Chest x-ray of 12/25/2017, 08/09/2017. Chest CT of 05/01/2017 and 02/06/2016. TECHNIQUE: A few noncontrast axial images through the chest were obtained for contrast localization purpose. Following intravenous administration of 95 mL of Optiray 350, multidetector volumetric CT imaging through the chest was obtained as per CT pulmonary angiography protocol. Postprocessing is performed at a dedicated workstation. Multiplanar reformatted and MIPS images are submitted. Following acquisition of chest CTA, multidetector volumetric CT imaging of the abdomen and pelvis was acquired. Postprocessing was performed at a dedicated workstation. Sagittal and coronal reformatted images were submitted. DLP: 824.76 mGy-cm FINDINGS: CHEST: There is satisfactory enhancement of the pulmonary arterial tree. There is no evidence of filling defect in the pulmonary arterial tree to suggest pulmonary embolism. The ascending aorta measures 3.5 cm in AP dimension and the descending thoracic aorta measures 3.2 cm in maximum AP dimension. No evidence of thoracic aortic aneurysm or dissection. Moderate coronary calcifications are noted. There is generalized snig-ek-ewenxqej cardiomegaly. No pericardial or pleural effusions. There is no evidence of axillary, mediastinal or hilar adenopathy. Bilateral symmetrical klzc-uo-crtqkfqm gynecomastia is noted. There is mild diffuse enlargement of the right thyroid lobe and isthmus. No discrete nodule is noted in the visualized thyroid. Evaluation of the lung parenchyma is somewhat limited by multiple respiratory motion artifacts. Moderate centrilobular changes of emphysema are noted in the upper lobes. There are more severe emphysematous changes noted in the right lower lobe with large bullous changes. The patchy airspace opacities noted on the CT scan of 05/01/2017 have resolved however, there are new small patchy airspace opacities in the left upper lobe. More consolidative gctcydhb-lt-pppfl amount of air space disease is noted in the left lower lobe at the lung base. The finding represents recurrent disease here as the chest x-ray of 08/09/2017 demonstrated interval resolution of left lung airspace disease seen on the CT scan of 05/01/2017. The right lung is otherwise relatively clear. A 3 mm pleural-based triangular density in the right upper lobe anterolaterally (series 3 image 19) is a stable finding. Trachea and central bronchi are well patent. No pneumothorax. ABDOMEN AND PELVIS: The liver is normal in size, shape and attenuation. No focal liver lesion or biliary ductal dilatation. Small hypodensity in the liver adjacent to the falciform ligament (series 5 image 21) likely represents focal fatty infiltration or perfusion abnormality. The gallbladder is mildly distended. Several small faceted calcified gallstones are noted. Wall of the gallbladder is not thickened. No obvious pericholecystic inflammatory changes. The spleen and adrenal glands are unremarkable. There is moderate atrophy of the pancreas. The kidneys are normal in size, shape and attenuation. No hydroureteronephrosis or significant perinephric stranding. A 0.5 cm nonobstructing calculus in the left kidney is noted (series 5 image 33). The stomach is decompressed and therefore, not well evaluated however, grossly appears unremarkable. Small bowel is not dilated. The colon is normal in caliber. There is no evidence of colonic wall thickening or pericholecystic fat stranding. Extensive diverticulosis of the sigmoid colon is noted. There is cbcmemip-fz-jnnvd volume stool in the colon. An appendix is normal. Sacralization is noted in the distal ileal loops which may suggest slow transit of the intestinal contents versus bacterial overgrowth. There is no evidence of free intraperitoneal air or fluid. No pathologically enlarged lymph nodes are noted. Postsurgical changes of the abdominal aortic aneurysm repair with aortic bicommon iliac stent graft are noted. The aneurysmal dilatation of the distal infrarenal abdominal aorta measures 6.4 x 6.7 cm in AP and transverse dimensions. At the inferior aspect of the aneurysmal lumen adjacent to the stent graft, a focus of hyperdensity is noted within the aneurysm measuring 2.4 cm in diameter (series 5 image 46, series 602 image 51, series 601 image 65). No precontrast images through the abdomen were obtained. The differential possibility may include hyperdense thrombus versus endoleak. There is no evidence of periaortic fat stranding or fluid collection/hematoma. The urinary bladder is underdistended however, unremarkable. Prostate and seminal vesicles are not seen, correlate with surgical history. There is a left inguinal hernia containing fat measuring 5.4 cm in maximum dimension. Surgical clips are noted in the left inguinal region. There are surgical clips in the right inguinal region as well adjacent to the vasculature. OSSEOUS STRUCTURES: No acute or suspicious osseous abnormality is noted in the chest, abdomen and pelvis. Degenerative disc disease is present from L3 to S1 with narrowing of the disc spaces and vacuum disc phenomenon. Facet arthropathy is noted in the lower lumbar spine. IMPRESSION: 1. No evidence of pulmonary embolism. 2. New patchy airspace opacities in the left lung, most significant in the left lower lobe at the lung base are concerning for infectious versus inflammatory infiltrates. Changes of emphysema. 3. Postsurgical changes of aortic aneurysmal repair with aortic bicommon iliac stent grafts in place. A hyperdense focus within the distal abdominal aortic aneurysm lumen at the inferior aspect of the aneurysm adjacent to the stent graft may represent an stent endoleak or hyperdense thrombus. Further evaluation with dedicated abdominal CTA for evaluation of endoleak may be considered. No evidence of abdominal aortic aneurysm rupture. No evidence of vero-aneurysmal fat stranding, contrast extravasation or hematoma. 4. Colonic diverticulosis without acute diverticulitis. Emyl[place]t-mp-lewql volume stool in the colon. 5. Left renal nonobstructing calculus. 6. Cholelithiasis without acute cholecystitis. 7. Left inguinal hernia containing fat. VTE: Negative This critical result was discussed with AGNES Aranda at 9:56 PM on 12/25/2017 and it was ascertained that the content and urgency of the report was understood at the time of direct communication. DICTATED BY: Anoop CR,Nael DATE/TIME DICTATED:12/25/172105 IT INVESTMENT/PORTFOLIO MANAGER:LINDY DATE/TIME TRANSCRIBED:12/25/172105 CONFIDENTIAL, DO NOT COPY WITHOUT APPROPRIATE AUTHORIZATION. (Massimo ALARCON,Greg) Plan of Care: Orders Procedure Date/time Status Heart Healthy Diet 12/26 B Active ED Holding Orders 12/25 2324 Active Admit to inpatient 12/25 2324 Active Vital Signs 12/25 2324 Active Code Status 12/25 2324 Active LACTIC ACID 12/25 214 Complete RAPID VIRAL INFLUENZA A 12/25 194 Complete EKG 12/25 1846 Active ARTERIAL BLOOD GAS (GEN) 12/25 1844 Complete Telemetry/Negative Restorer 12/25 1844 Active LOWER RESPIRATORY CULTURE 12/25 1844 Active BLOOD CULTURE 12/25 1844 Active TROPONIN LEVEL 12/25 1844 Complete MAGNESIUM 12/25 1844 Complete LACTIC ACID 12/25 1844 Complete D-DIMER 12/25 1844 Complete COMPREHENSIVE METABOLIC PANEL 12/25 1844 Complete CBC WITHOUT DIFFERENTIAL 02/05 1845 Complete B-TYPE NATRIURETIC PEP (BNP) 12/25 1844 Complete Laboratory Tests 12/25/172154: Lactic Acid 1.1 12/25/171909: pH 7.31 L, pCO2 52 H, pO2 72 L, HCO3 26, ABG O2 Sat (Measured) 92.0 L, P-50 (Temp Corrected) N, Carboxyhemoglobin 0.5 L, O2 Concentration % 40%, Temperature 98.5, O2 Delivery Method V/M, Phlebotomy Draw Site RIGHT RADIAL 12/25/171851: Anion Gap 16, Estimated GFR 47 L, BUN/Creatinine Ratio 15.3, Glucose 142 H, Lactic Acid 1.5, Calcium 9.0, Magnesium 1.7, Total Bilirubin 0.6, AST 14 L, ALT 25, Alkaline Phosphatase 83, Troponin I 0.04, Nnn-Q-Qcnfhssmnix Pept 7220 H, Total Protein 6.5, Albumin 4.2, Globulin 2.3, Albumin/Globulin Ratio 1.8, D- Dimer High Sensitivty 269 H, CBC w Diff MAN DIFF ORDERED, RBC 4.22 L, MCV 87.1 , MCH 28.0, MCHC 32.2 L, RDW 16.9 H, MPV 9.2, Gran % 90.1 H, Lymphocytes % 6.1 L, Monocytes % 3.5, Eosinophils % 0.2, Basophils % 0.1, Absolute Granulocytes 16.9 H, Segmented Neutrophils 81 H, Band Neutrophils 3, Absolute Lymphocytes 1.1 L, Lymphocytes 10 L, Monocytes 5, Absolute Monocytes 0.7 H, Eosinophils 1, Absolute Eosinophils 0, Absolute Basophils 0, Platelet Estimate VERIFIED BY SMEAR, Normocytic RBCs VERIFIED, Normochromic RBCs VERIFIED, Fld Total RBCs Counted 100 Microbiology 12/25 2229 NASOPHARYN: Influenza Virus A & B Rapid Smear - COMP 12/25 1929 BLOOD: Blood Culture - RECD 12/25 1851 BLOOD: Blood Culture - RECD 12/25 1844 LOWER RESP: Respiratory Culture - ORD 12/25 1844 LOWER RESP: Gram Stain - ORD Patient initially was noted to be in respiratory distress nursing staff gave patient 6 L of nasal cannula however patient was switched to nonrebreather patient was administered a nebulizer treatment and currently has improvement of respiratory distress and tachypnea Imaging does show concerns of pneumonia she was given IV antibiotics CT was resulted showing concerns of a hyperdense abnormality near patient's aortic stent for concerns of endoleak versus thrombus 2229 Vascular surgery was paged Discussed patient with vascular surgery for concerns of CT scan finding of endoleak versus thrombus which they are aware and advised nothing to be administered or treated for the patient currently in the emergency room and will consult if needed, discussed admission with (Greg Braga) (Alma Delia CR,Doni Hall) Departure Departure Disposition: STILL A PATIENT Condition: Stable Clinical Impression Primary Impression: Respiratory failure Secondary Impressions: COPD exacerbation, Pneumonia Referrals: Prabhakar Aburto DO (PCP/Family) Departure Forms: Customer Survey General Discharge Information Admission Note Spoke With: Marlene Cruz MD Documentation of Exam: Documentation of any treatments & extenuating circumstances including Concerns Regarding Discharge (functional status, medication knowledge or non-compliance, living conditions, etc.) that warrant an admission rather than observation: [ Patient requires IV antibiotics, repeat labs IV fluids blood culture currently pending sputum culture pending IV steroids and nebulizer treatments] (Greg Braga) PA/OFFICE CLERK Co-Sign Statement Statement: ED Attending supervision documentation- [X] I saw and evaluated the patient. I have also reviewed all the pertinent lab results and diagnostic results. I agree with the findings and the plan of care as documented in the PA's/OFFICE CLERK's documentation. [X [] Additions or exceptions (if any) to the PAs/OFFICE CLERK's note and plan are summarized below: [Patient to be admitted for hypoxic respiratory failure in the setting of COPD exacerbation and pneumonia. Patient will require IV antibiotics. Vascular consultation, pulmonary consultation.] (Alma Delia CR,Doni Hall) Critical Care Note Critical Care Note Critical Care Time: 30-74 min (Greg Braga)
[2017-12-25 19:06] LABS: ABSOLUTE BASOPHIL COUNT 0 /CUMM (0.0-0.2); ABSOLUTE EOSINOPHIL COUNT 0 /CUMM (0.0-0.7); ABSOLUTE GRANULOCYTE CT 16.9 /CUMM (1.4-6.5); ABSOLUTE LYMPH COUNT 1.1 /CUMM (1.2-3.4); ABSOLUTE MONOCYTE COUNT 0.7 /CUMM (0.10-0.60); BASOPHIL % 0.1 % (0.0-2.0); EOSINOPHIL % 0.2 % (0-5); HEMATOCRIT 36.8 % (42-52); MEAN CORPUSCULAR HGB CONC 32.2 G/DL (33.0-37.0); MEAN CORPUSCULAR VOLUME 87.1 FL (80.0-94.0); MEAN PLATELET VOLUME 9.2 FL (7.4-10.4); PLATELET COUNT 210 /CUMM (130-400); RBC DISTRIBUTION WIDTH 16.9 % (11.5-14.5); RED BLOOD CELL CT 4.22 /CUMM (4.70-6.10); WHITE BLOOD CELL COUNT 18.8 /CUMM (4.8-10.8)
[2017-12-25 19:21] LABS: GRANULOCYTE % 90.1 % (42.2-75.2)
--- NOTE | 2017-12-25 20:14 | RADIOLOGY REPORT ---
EXAMINATION: XR PORTABLE CHEST CLINICAL INFORMATION: Cough COMPARISON: Multiple previous chest x-rays with the most recent chest x-ray dated 08/09/2017. CT chest of 05/01/2017. TECHNIQUE: Portable frontal view of the chest was obtained. FINDINGS: The cardiomediastinal silhouette is stable with cardiomegaly. Patchy airspace opacities are noted in the left mid lung laterally, which are new compared to previous chest x-ray of 08/09/2017 and are concerning for infectious infiltrates. Hyperlucency in the right lower lung field is again noted consistent with emphysematous and bullous changes seen on the chest CT. Stable blunting of the right lateral costophrenic sulcus representing pleural thickening/pleural fat. No evidence of significant pleural effusions, pulmonary edema or pneumothorax. No acute osseous abnormality. IMPRESSION: New airspace opacities in the left mid lung are concerning for infectious/inflammatory infiltrates.
--- NOTE | 2017-12-25 22:28 | CT SCAN REPORT ---
EXAMINATION: CHEST CTA PULMONARY EMBOLISM CT ABDOMEN AND PELVIS WITH CONTRAST CLINICAL INFORMATION: COPD. Shortness of breath. Abdominal pain. COMPARISON: Chest x-ray of 12/25/2017, 08/09/2017. Chest CT of 05/01/2017 and 02/06/2016. TECHNIQUE: A few noncontrast axial images through the chest were obtained for contrast localization purpose. Following intravenous administration of 95 mL of Optiray 350, multidetector volumetric CT imaging through the chest was obtained as per CT pulmonary angiography protocol. Postprocessing is performed at a dedicated workstation. Multiplanar reformatted and MIPS images are submitted. Following acquisition of chest CTA, multidetector volumetric CT imaging of the abdomen and pelvis was acquired. Postprocessing was performed at a dedicated workstation. Sagittal and coronal reformatted images were submitted. DLP: 824.76 mGy-cm FINDINGS: CHEST: There is satisfactory enhancement of the pulmonary arterial tree. There is no evidence of filling defect in the pulmonary arterial tree to suggest pulmonary embolism. The ascending aorta measures 3.5 cm in AP dimension and the descending thoracic aorta measures 3.2 cm in maximum AP dimension. No evidence of thoracic aortic aneurysm or dissection. Moderate coronary calcifications are noted. There is generalized crvq-ij-kfemksnd cardiomegaly. No pericardial or pleural effusions. There is no evidence of axillary, mediastinal or hilar adenopathy. Bilateral symmetrical ktbn-ae-xnsmwmef gynecomastia is noted. There is mild diffuse enlargement of the right thyroid lobe and isthmus. No discrete nodule is noted in the visualized thyroid. Evaluation of the lung parenchyma is somewhat limited by multiple respiratory motion artifacts. Moderate centrilobular changes of emphysema are noted in the upper lobes. There are more severe emphysematous changes noted in the right lower lobe with large bullous changes. The patchy airspace opacities noted on the CT scan of 05/01/2017 have resolved however, there are new small patchy airspace opacities in the left upper lobe. More consolidative ysdkzvtt-ww-sbgto amount of air space disease is noted in the left lower lobe at the lung base. The finding represents recurrent disease here as the chest x-ray of 08/09/2017 demonstrated interval resolution of left lung airspace disease seen on the CT scan of 05/01/2017. The right lung is otherwise relatively clear. A 3 mm pleural-based triangular density in the right upper lobe anterolaterally (series 3 image 19) is a stable finding. Trachea and central bronchi are well patent. No pneumothorax. ABDOMEN AND PELVIS: The liver is normal in size, shape and attenuation. No focal liver lesion or biliary ductal dilatation. Small hypodensity in the liver adjacent to the falciform ligament (series 5 image 21) likely represents focal fatty infiltration or perfusion abnormality. The gallbladder is mildly distended. Several small faceted calcified gallstones are noted. Wall of the gallbladder is not thickened. No obvious pericholecystic inflammatory changes. The spleen and adrenal glands are unremarkable. There is moderate atrophy of the pancreas. The kidneys are normal in size, shape and attenuation. No hydroureteronephrosis or significant perinephric stranding. A 0.5 cm nonobstructing calculus in the left kidney is noted (series 5 image 33). The stomach is decompressed and therefore, not well evaluated however, grossly appears unremarkable. Small bowel is not dilated. The colon is normal in caliber. There is no evidence of colonic wall thickening or pericholecystic fat stranding. Extensive diverticulosis of the sigmoid colon is noted. There is niahsulj-cj-eaouh volume stool in the colon. An appendix is normal. Sacralization is noted in the distal ileal loops which may suggest slow transit of the intestinal contents versus bacterial overgrowth. There is no evidence of free intraperitoneal air or fluid. No pathologically enlarged lymph nodes are noted. Postsurgical changes of the abdominal aortic aneurysm repair with aortic bicommon iliac stent graft are noted. The aneurysmal dilatation of the distal infrarenal abdominal aorta measures 6.4 x 6.7 cm in AP and transverse dimensions. At the inferior aspect of the aneurysmal lumen adjacent to the stent graft, a focus of hyperdensity is noted within the aneurysm measuring 2.4 cm in diameter (series 5 image 46, series 602 image 51, series 601 image 65). No precontrast images through the abdomen were obtained. The differential possibility may include hyperdense thrombus versus endoleak. There is no evidence of periaortic fat stranding or fluid collection/hematoma. The urinary bladder is underdistended however, unremarkable. Prostate and seminal vesicles are not seen, correlate with surgical history. There is a left inguinal hernia containing fat measuring 5.4 cm in maximum dimension. Surgical clips are noted in the left inguinal region. There are surgical clips in the right inguinal region as well adjacent to the vasculature. OSSEOUS STRUCTURES: No acute or suspicious osseous abnormality is noted in the chest, abdomen and pelvis. Degenerative disc disease is present from L3 to S1 with narrowing of the disc spaces and vacuum disc phenomenon. Facet arthropathy is noted in the lower lumbar spine. IMPRESSION: 1. No evidence of pulmonary embolism. 2. New patchy airspace opacities in the left lung, most significant in the left lower lobe at the lung base are concerning for infectious versus inflammatory infiltrates. Changes of emphysema. 3. Postsurgical changes of aortic aneurysmal repair with aortic bicommon iliac stent grafts in place. A hyperdense focus within the distal abdominal aortic aneurysm lumen at the inferior aspect of the aneurysm adjacent to the stent graft may represent an stent endoleak or hyperdense thrombus. Further evaluation with dedicated abdominal CTA for evaluation of endoleak may be considered. No evidence of abdominal aortic aneurysm rupture. No evidence of vero-aneurysmal fat stranding, contrast extravasation or hematoma. 4. Colonic diverticulosis without acute diverticulitis. Gvnwktyy-uu-sbfdb volume stool in the colon. 5. Left renal nonobstructing calculus. 6. Cholelithiasis without acute cholecystitis. 7. Left inguinal hernia containing fat. VTE: Negative This critical result was discussed with AGNES Aranda at 9:56 PM on 12/25/2017 and it was ascertained that the content and urgency of the report was understood at the time of direct communication.
[2017-12-26] MEDS ORDERED: ACETAZOLAMIDE PO (03:05)
[2017-12-26] MEDS ORDERED: B-121000 MC3 PO (03:06)
[2017-12-26] MEDS ORDERED: [UNRECOGNIZED DRUG - OTHER] PO (03:07)
[2017-12-26] MEDS ORDERED: NATURE MADE IRON PO (03:09)
--- NOTE | 2017-12-26 04:15 | History & Physical ---
Nils CR,[facility] 12/26/17 0414: General Information and HPI MD Statement: I have seen and personally examined COURTNEY VIEIRA and documented this H&P. The patient is a 67 year old M who presented with a patient stated chief complaint of SOB. 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 The patient was in his normal state of health until the dietary director of 2017. For 48 hours prior to admission, the patient developed a mild cough. Cough was described as mildly productive. Sputum was clear. This mild cough continued to bother the patient, unitl he subsequently developed labored breathing and requested his to bring him into the ED. Prior to being brought into the ED he had minimal relief from outpatient nebulizer treatments. The patient has not been exposed to any sick contacts. He reports good medication compliance. Allergies/Medications Allergies: Coded Allergies: NO KNOWN ALLERGIES (02/05/16) Home Med list [ACETAZOLAMIDE ER] 500 MG 1 PO DAILY DIRECTED (Reported) Albuterol Sulfate (Proair Hfa) 90 MCG HFA.AER.AD 2 PUF INH Q4-6 PRN PRN SHORTNESS OF BREATH (Reported) Albuterol Sulfate 2.5 MG/3 ML (0.083 %) VIAL.NEB 1 Vial INH/ABILIO Q4P PRN SHORTNESS OF BREATH (Reported) Aspirin (Aspirin*) 81 MG TAB.CHEW 1 TAB PO DAILY HEART HEALTH (Reported) Atorvastatin Calcium (Lipitor) 10 MG TABLET 1 TAB PO DAILY CHOLESTEROL ( Reported) Budesonide/Formoterol Fumarate (Symbicort 160-4.5 Mcg Inhaler) 160 MCG-4.5 MCG/ ACTUATION HFA.AER.AD 2 PUF INH BID SHORTNESS OF BREATH (Reported) Cyanocobalamin (Vitamin B-12) (B-12) 1,000 MCG TABLET 1 TAB PO DAILY VITAMIN SUPPORT (Reported) Diltiazem HCl (Cardizem Cd) 240 MG CAP.ER.24H 480 MG PO DAILY Atrial fibrillation [EQUATE ANTI DIARHEAL] 2 MG 2 PO QHS DIARRHEA (Reported) Ferrous Sulfate 325 MG TABLET. 325 MG PO BID Iron supplement Furosemide (Lasix) 40 MG TABLET 1 TAB PO BID Water pill Metformin HCl (Glucophage) 1,000 MG TABLET 1 TAB PO BID DIABETES (Reported) [NATURE MADE IRON] 65 MG TAB 4 TAB PO QHS BLOOD HEALTH (Reported) Pantoprazole Sodium (Protonix) 40 MG TABLET. 1 TAB PO DAILY ACID REFLUX ( Reported) Prednisone 20 MG TABLET 10 MG PO DAILY COPD please take 4 tab(40 mg) on 08/11/17 please take 3 tab(30 mg) on the 08/11-08/14 please take 2 tab(20 mg) on 08/15-08/17 please take 1 tab (10 mg) on 08-18-08/20 Rivaroxaban (Xarelto) 20 MG TABLET 1 TAB PO DAILY BLOOD THINNER (Reported) with food Tiotropium [place] (Spiriva) 18 MCG CAP.W.DEV 1 CAP INH DAILY SHORTNESS OF BREATH (Reported) Compliance With Home Meds: GOOD Past History Travel History Traveled to [place] past 21 day No Medical History Neurological: TIA EENT: cataracts Cardiovascular: AFIB, CHF, hypertension, hyperlipidemia Respiratory: COPD, 4L O2 DEPENDENT BIPAP AT NIGHT Gastrointestinal: GERD, ABD ANEURYSM Hepatic: NONE Renal: NONE Musculoskeletal: NONE Psychiatric: NONE Endocrine: DIABETE Blood Disorders: NONE Cancer(s): prostate cancer WOUND TREATMENT RN/Reproductive: NONE History of MRSA: No History of VRE: No History of CDIFF: No Surgical History Surgical History: cataract removal, PROSTATE SURGERY AAA REPAIR TONSILLECTOMY Past Family/Social History Family History Relations & Conditions if any MOTHER, ; Cause: COPD (chronic obstructive pulmonary disease). FATHER, ; Cause: Myocardial infarct. SISTER, ; Cause: Myocardial infarct. Psychosocial History Where do you live? Home Who Do You Live With? self Services at Home: None Primary Language: German Smoking Status: Former Smoker (Quit 40 years ago) ETOH Use: denies use Illicit Drug Use: denies illicit drug use Functional Ability ADLs Independent: dressing, eating, toileting, bathing. Ambulation: independent IADLs Independent: shopping, housework, finances, food prep, telephone, transportation , medication admin. Review of Systems Review of Systems Constitutional: Denies: see HPI, chills, diaphoresis, fever, malaise, weakness. EENTM: Denies: blurred vision, double vision, visual changes, eye pain, eye drainage. Cardiovascular: Denies: see HPI, chest pain, edema, orthopena. Respiratory: Reports: cough, short of breath. GI: Denies: abdominal pain, bloating, constipation, diarrhea. Genitourinary: Denies: discharge, dysuria, frequency, hematuria, hesitation. Musculoskeletal: Denies: back pain, gout. Skin: Denies: cysts, change in skin color, change in hair/nails, dryness. Neurological/Psychological: Denies: anxiety, ataxia, cognitive dysfunction, confusion, depressed. Exam & Diagnostic Data Last 24 Hrs of Vital Signs/I&O Vital Signs Date Time Temp Pulse Resp B/P B/P Pulse O2 O2 Flow FiO2 Mean Ox Delivery Rate 12/26 0328 98 99 12/26 0322 96 Venti Mask 35% 12/26 0231 98.6 16 20 105/69 96 Venti Mask 50% 12/26 0040 98.2 106 20 109/82 97 Venti Mask 5.0L 12/25 2158 99.4 93 20 118/58 94 Venti Mask 5.0L 12/25 1930 99.2 105 20 115/55 94 Venti Mask 5.0L 12/25 1915 94 Venti Mask 35% 12/25 1906 Venti Mask 12/25 1836 98.5 78 30 124/63 81 Nasal 4.0L Cannula Intake & Output 12/26 0800 02/ 0000 02/05 1600 Intake Total Output Total Balance Patient 79.379 kg Weight Weight Reported by Patient Measurement Method Physical Exam General Appearance Alert, Oriented X3, Cooperative, No Acute Distress Skin Petechie Noted Bilaterally Skin Temp/Moisture Exam: Warm/Dry Sepsis Skin Exam (color): Normal for Ethnicity HEENT PERRLA, Mucous Membr. moist/pink, No JVD Neck Supple, No JVD Lymphatic Axillary nl Cardiovascular Normal S1, Normal S2, Irregular Rate and Rhythm Lungs Rhonchi Noted Left lower lung base, Diminished air entry on right lung Abdomen Normal Bowel Sounds, Soft, No Tenderness Neurological Normal Speech, Strength at 5/5 X4 Ext, Normal Tone, Cranial Nerves 3-12 NL Extremities No Clubbing, Edema L> R 2+ Vascular Normal Pulses Last 24 Hrs of Labs/Sridhar: Laboratory Tests 12/25/172154: Lactic Acid 1.1 12/25/171909: pH 7.31 L, pCO2 52 H, pO2 72 L, HCO3 26, ABG O2 Sat (Measured) 92.0 L, P-50 (Temp Corrected) N, Carboxyhemoglobin 0.5 L, O2 Concentration % 40%, Temperature 98.5, O2 Delivery Method V/M, Phlebotomy Draw Site RIGHT RADIAL 12/25/171851: Anion Gap 16, Estimated GFR 47 L, BUN/Creatinine Ratio 15.3, Glucose 142 H, Lactic Acid 1.5, Calcium 9.0, Magnesium 1.7, Total Bilirubin 0.6, AST 14 L, ALT 25, Alkaline Phosphatase 83, Troponin I 0.04, Aev-K-Aitjfupjppv Pept 7220 H, Total Protein 6.5, Albumin 4.2, Globulin 2.3, Albumin/Globulin Ratio 1.8, D- Dimer High Sensitivty 269 H, CBC w Diff MAN DIFF ORDERED, RBC 4.22 L, MCV 87.1 , MCH 28.0, MCHC 32.2 L, RDW 16.9 H, MPV 9.2, Gran % 90.1 H, Lymphocytes % 6.1 L, Monocytes % 3.5, Eosinophils % 0.2, Basophils % 0.1, Absolute Granulocytes 16.9 H, Segmented Neutrophils 81 H, Band Neutrophils 3, Absolute Lymphocytes 1.1 L, Lymphocytes 10 L, Monocytes 5, Absolute Monocytes 0.7 H, Eosinophils 1, Absolute Eosinophils 0, Absolute Basophils 0, Platelet Estimate VERIFIED BY SMEAR, Normocytic RBCs VERIFIED, Normochromic RBCs VERIFIED, Fld Total RBCs Counted 100 Microbiology 12/25 2229 NASOPHARYN: Influenza Virus A & B Rapid Smear - COMP 12/25 1929 BLOOD: Blood Culture - RECD 12/25 1851 BLOOD: Blood Culture - RECD 12/25 1844 LOWER RESP: Respiratory Culture - ORD 12/25 1844 LOWER RESP: Gram Stain - ORD Diagnostic Data EKG Results Atrial Fibrrillation Rate 94 QTC 380 CXR Results SERVICE DATE: 12/25/17-1844 EXAM TYPE: RAD - XRY-PORTABLE CHEST XRAY EXAMINATION: XR PORTABLE CHEST CLINICAL INFORMATION: Cough COMPARISON: Multiple previous chest x-rays with the most recent chest x-ray dated 08/09/2017. CT chest of 05/01/2017. TECHNIQUE: Portable frontal view of the chest was obtained. FINDINGS: The cardiomediastinal silhouette is stable with cardiomegaly. Patchy airspace opacities are noted in the left mid lung laterally, which are new compared to previous chest x-ray of 08/09/2017 and are concerning for infectious infiltrates. Hyperlucency in the right lower lung field is again noted consistent with emphysematous and bullous changes seen on the chest CT. Stable blunting of the right lateral costophrenic sulcus representing pleural thickening/pleural fat. No evidence of significant pleural effusions, pulmonary edema or pneumothorax. No acute osseous abnormality. IMPRESSION: New airspace opacities in the left mid lung are concerning for infectious/inflammatory infiltrates. Other Results SERVICE DATE: 12/25/17 EXAM TYPE: CAT - CT ABD & PELVIS W IV CONTRAST; CTA CHEST-PULMONARY EMBOLISM EXAMINATION: CHEST CTA PULMONARY EMBOLISM CT ABDOMEN AND PELVIS WITH CONTRAST CLINICAL INFORMATION: COPD. Shortness of breath. Abdominal pain. COMPARISON: Chest x-ray of 12/25/2017, 08/09/2017. Chest CT of 05/01/2017 and 02/06/2016. TECHNIQUE: A few noncontrast axial images through the chest were obtained for contrast localization purpose. Following intravenous administration of 95 mL of Optiray 350, multidetector volumetric CT imaging through the chest was obtained as per CT pulmonary angiography protocol. Postprocessing is performed at a dedicated workstation. Multiplanar reformatted and MIPS images are submitted. Following acquisition of chest CTA, multidetector volumetric CT imaging of the abdomen and pelvis was acquired. Postprocessing was performed at a dedicated workstation. Sagittal and coronal reformatted images were submitted. DLP: 824.76 mGy-cm FINDINGS: CHEST: There is satisfactory enhancement of the pulmonary arterial tree. There is no evidence of filling defect in the pulmonary arterial tree to suggest pulmonary embolism. The ascending aorta measures 3.5 cm in AP dimension and the descending thoracic aorta measures 3.2 cm in maximum AP dimension. No evidence of thoracic aortic aneurysm or dissection. Moderate coronary calcifications are noted. There is generalized hhao-yy-hicqoeic cardiomegaly. No pericardial or pleural effusions. There is no evidence of axillary, mediastinal or hilar adenopathy. Bilateral symmetrical skbg-xe-tajgjxpe gynecomastia is noted. There is mild diffuse enlargement of the right thyroid lobe and isthmus. No discrete nodule is noted in the visualized thyroid. Evaluation of the lung parenchyma is somewhat limited by multiple respiratory motion artifacts. Moderate centrilobular changes of emphysema are noted in the upper lobes. There are more severe emphysematous changes noted in the right lower lobe with large bullous changes. The patchy airspace opacities noted on the CT scan of 05/01/2017 have resolved however, there are new small patchy airspace opacities in the left upper lobe. More consolidative ghiwlyuq-ot-yimri amount of air space disease is noted in the left lower lobe at the lung base. The finding represents recurrent disease here as the chest x-ray of 08/09/2017 demonstrated interval resolution of left lung airspace disease seen on the CT scan of 05/01/2017. The right lung is otherwise relatively clear. A 3 mm pleural-based triangular density in the right upper lobe anterolaterally (series 3 image 19) is a stable finding. Trachea and central bronchi are well patent. No pneumothorax. ABDOMEN AND PELVIS: The liver is normal in size, shape and attenuation. No focal liver lesion or biliary ductal dilatation. Small hypodensity in the liver adjacent to the falciform ligament (series 5 image 21) likely represents focal fatty infiltration or perfusion abnormality. The gallbladder is mildly distended. Several small faceted calcified gallstones are noted. Wall of the gallbladder is not thickened. No obvious pericholecystic inflammatory changes. The spleen and adrenal glands are unremarkable. There is moderate atrophy of the pancreas. The kidneys are normal in size, shape and attenuation. No hydroureteronephrosis or significant perinephric stranding. A 0.5 cm nonobstructing calculus in the left kidney is noted (series 5 image 33). The stomach is decompressed and therefore, not well evaluated however, grossly appears unremarkable. Small bowel is not dilated. The colon is normal in caliber. There is no evidence of colonic wall thickening or pericholecystic fat stranding. Extensive diverticulosis of the sigmoid colon is noted. There is rluxfrvj-xn-nhxqz volume stool in the colon. An appendix is normal. Sacralization is noted in the distal ileal loops which may suggest slow transit of the intestinal contents versus bacterial overgrowth. There is no evidence of free intraperitoneal air or fluid. No pathologically enlarged lymph nodes are noted. Postsurgical changes of the abdominal aortic aneurysm repair with aortic bicommon iliac stent graft are noted. The aneurysmal dilatation of the distal infrarenal abdominal aorta measures 6.4 x 6.7 cm in AP and transverse dimensions. At the inferior aspect of the aneurysmal lumen adjacent to the stent graft, a focus of hyperdensity is noted within the aneurysm measuring 2.4 cm in diameter (series 5 image 46, series 602 image 51, series 601 image 65). No precontrast images through the abdomen were obtained. The differential possibility may include hyperdense thrombus versus endoleak. There is no evidence of periaortic fat stranding or fluid collection/hematoma. The urinary bladder is underdistended however, unremarkable. Prostate and seminal vesicles are not seen, correlate with surgical history. There is a left inguinal hernia containing fat measuring 5.4 cm in maximum dimension. Surgical clips are noted in the left inguinal region. There are surgical clips in the right inguinal region as well adjacent to the vasculature. OSSEOUS STRUCTURES: No acute or suspicious osseous abnormality is noted in the chest, abdomen and pelvis. Degenerative disc disease is present from L3 to S1 with narrowing of the disc spaces and vacuum disc phenomenon. Facet arthropathy is noted in the lower lumbar spine. IMPRESSION: 1. No evidence of pulmonary embolism. 2. New patchy airspace opacities in the left lung, most significant in the left lower lobe at the lung base are concerning for infectious versus inflammatory infiltrates. Changes of emphysema. 3. Postsurgical changes of aortic aneurysmal repair with aortic bicommon iliac stent grafts in place. A hyperdense focus within the distal abdominal aortic aneurysm lumen at the inferior aspect of the aneurysm adjacent to the stent graft may represent an stent endoleak or hyperdense thrombus. Further evaluation with dedicated abdominal CTA for evaluation of endoleak may be considered. No evidence of abdominal aortic aneurysm rupture. No evidence of vero-aneurysmal fat stranding, contrast extravasation or hematoma. 4. Colonic diverticulosis without acute diverticulitis. Tosnvuxz-hd-usivq volume stool in the colon. 5. Left renal nonobstructing calculus. 6. Cholelithiasis without acute cholecystitis. 7. Left inguinal hernia containing fat. VTE: Negative This critical result was discussed with AGNES Aranda at 9:56 PM on 12/25/2017 and it was ascertained that the content and urgency of the report was understood at the time of direct communication. 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 #Acute on chronic respiratory failure. CAP with superimposed COPD Exacerbation. #History of abdominal aortic aneurysm repair(Chest CT finding of stent endoleak) #History of Heart failure with reduced EF #A. FIb #DM Continue ceftriaxone and azithromycin. Sputum culture. Monitor CBC in a.m. Please inform Dr. So of admission to telemetry service. Imaging studies showed endoleak, will obtain a vascular consultation, to rule out acute intervention. Continue the patient on Xarelto for atrial fibrillation. Please inform librarian specialist Dr. Walton of admission. Methylprednisolone 40 mg BID Hold home Lasix for now (patient was hypotensive in the ED). Gentle hydration. Accu-Cheks. NovoLog sliding scale. DVT PPX; Xarelto Patient is a full code. As Ranked By This Provider Problem List: 1. COPD exacerbation 2. Full code status 3. HTN (hypertension) 4. Pneumonia Core Measures/Misc (08/06) Acute Coronary Syndrome ACS Diagnosis: No Congestive Heart Failure Congestive Heart Failure Diagnosis Yes Cerebrovascular Accident CVA/TIA Diagnosis: No VTE (View Protocol) VTE Risk Factors Acute Medical Illness No Mechanical VTE Prophylaxis d/t N/A MechProphylax Ordered No VTE Pharm Prophylaxis d/t NA PharmProphylax ordered Sepsis (View protocol) Sepsis Present: No Marlene Cruz 12/26/17 0848: Attending MD Review Statement Attending Statement Attending MD Statement: examined this patient, discuss w/resident/PA/CREDIT OPERATIONS SPECIALIST, agreed w/resident/PA/CREDIT OPERATIONS SPECIALIST, reviewed EMR data (avail), reviewed images, amended to note Attending Assessment/Plan: CC: Worsening of shortness of breath, cough with expectoration PMH: COPD on 4 L nasal cannula, on nighttime BiPAP, DM, HTN, TIA, A. fib, HFrEF with 30% ejection fraction, abdominal aortic aneurysm repair Patient came to ER for increased shortness of breath. Patient states that he developed cough 2 days back, associated with clear sputum initially which changed to green colored sputum eventually. He was very lethargic and weak. He denies any fever, chills, chest pain, jaw pain, presyncope, LOC, abdominal pain, UTI symptoms, no sick contacts. Patient had mild URI symptoms to begin with 5 days back, which eventually did to cough and shortness of breath. Vitals: BP max 99.4, pulse 105, RR 30 on arrival improved to 20, blood pressure 124/63 on arrival stabilized around 109/82, saturating 81% on 4 L, started on Ventimask 35% On exam: A O 3, cooperative, mild respiratory distress, neck supple, JVD not elevated, no lymphadenopathy, mucosa dry, no focal neurological deficit, trace leg edema, no obvious skin rashes or inflammation CVS: S1-S2, RRR. RS: Decreased air entry left mid and lower zones, extensive wheezing and right. Abdomen: Soft, NT, ND, bowel sounds present, no CVA tenderness. Labs: WBC 18.8, hemoglobin 11.8, hematocrit 36.8, platelet 210, neutrophils 90%, band 3, sodium 147, potassium 3.5, chloride 99, bicarbonate 32, BUN 23, creatinine 1.5, glucose 142, calcium 9.0, lactate 1.5, LFT unremarkable, proBNP 7220, d-dimer 269 AB.31/52/72/26 on 40% Ventimask CTA chest CT abdomen and pelvis with IV contrast 1. No evidence of pulmonary embolism. 2. New patchy airspace opacities in the left lung, most significant in the left lower lobe at the lung base are concerning for infectious versus inflammatory infiltrates. Changes of emphysema. 3. Postsurgical changes of aortic aneurysmal repair with aortic bicommon iliac stent grafts in place. A hyperdense focus within the distal abdominal aortic aneurysm lumen at the inferior aspect of the aneurysm adjacent to the stent graft may represent an stent endoleak or hyperdense thrombus. Further evaluation with dedicated abdominal CTA for evaluation of endoleak may be considered. No evidence of abdominal aortic aneurysm rupture. No evidence of vero-aneurysmal fat stranding, contrast extravasation or hematoma. 4. Colonic diverticulosis without acute diverticulitis. Nallogsa-yv-zefoi volume stool in the colon. 5. Left renal nonobstructing calculus. 6. Cholelithiasis without acute cholecystitis. 7. Left inguinal hernia containing fat. Assessment and plan 67-year-old male with multiple comorbidities presented in ER for worsening shortness of breath, productive cough. His found to have low-grade fevers with significant leukocytosis with left shift, mild respiratory alkalosis, decreased air entry any wheezing on auscultation as mentioned above. CT findings suggestive of pneumonia. Given his extensive cardiac history and decreased ejection fraction we will admit to telemetry as patient needs IV fluids and we are holding his diuretics. Patient appears dehydrated, not in acute congestive failure, no JVD or crackles. Appears to have community-acquired pneumonia. At the same time there are some chronic changes in abdominal CT scan suggestive of endoleak or hyperdense thrombus at his previous aneurysmal repair site. Vascular surgery was consulted who suggested conservative management. + Community-acquired pneumonia + COPD exacerbation + Acute on chronic respiratory failure + History of DM, HTN, TIA, A. fib, HFrEF with 30% ejection fraction, abdominal aortic aneurysm repair - Admit to telemetry - Continue gentle hydration normal saline 75 mL per hour, watch for volume status, titrate up if persistently hypotensive - Strict I's and O's - Hold diuretics - Continue nighttime BiPAP - Continue IV ceftriaxone and azithromycin - Continue IV methylprednisolone 40 mg twice a day - Continue sliding scale insulin - Inform cardiology of patient being in hospital - Consulted vascular surgeon for endoleak versus thrombus at aortic aneurysm repair site - Continue TRC nebs - Titrate down oxygen during daytime to 4 L to his baseline - Inform patient's 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
[2017-12-26 07:30] LABS: ABSOLUTE BASOPHIL COUNT 0 /CUMM (0.0-0.2); ABSOLUTE EOSINOPHIL COUNT 0 /CUMM (0.0-0.7); ABSOLUTE GRANULOCYTE CT 17.8 /CUMM (1.4-6.5); ABSOLUTE LYMPH COUNT 0.4 /CUMM (1.2-3.4); ABSOLUTE MONOCYTE COUNT 0.2 /CUMM (0.10-0.60); BASOPHIL % 0 % (0.0-2.0); EOSINOPHIL % 0 % (0-5); HEMATOCRIT 32.2 % (42-52); MEAN CORPUSCULAR HGB 28.3 PG (27.0-31.0); MEAN CORPUSCULAR HGB CONC 32.2 G/DL (33.0-37.0); MEAN PLATELET VOLUME 9.3 FL (7.4-10.4); PLATELET COUNT 171 /CUMM (130-400); RBC DISTRIBUTION WIDTH 16.9 % (11.5-14.5); RED BLOOD CELL CT 3.66 /CUMM (4.70-6.10); WHITE BLOOD CELL COUNT 18.4 /CUMM (4.8-10.8)
--- NOTE | 2017-12-26 08:05 | Event Note ---
Event Note Event Note: Subjective: Patient is seen and examined this morning seems better than yesterday, currently off BiPAP on 4 L of oxygen. Denies any shortness of breath chest discomfort but still reports productive cough. Blood pressure currently borderline, although vitals are stable. Problem list: Acute on chronic respiratory failure due to COPD exacerbation and community- acquired pneumonia. History of diabetes mellitus History of heart failure with reduced ejection fraction to 30% History of TIA History of abdominal aortic aneurysm status post repair(with a chest CT finding of stent endoleak or hyperdense thrombus) Plan Acute on chronic respiratory failure due to COPD exacerbation and community- acquired pneumonia. * Continue to monitor patient on telemetry floor * Continue with IV Solu-Medrol 40 g twice a day for now * Continue IV cefazolin and azithromycin * Continue TRC nebs * Continue to follow up with Dr. So recommendations * Nocturnal BiPAP as needed. History of abdominal aortic aneurysm status post repair(with a chest CT finding of stent endoleak or hyperdense thrombus) * Vascular surgery has been involved will follow the recommendations * Closely monitor the blood pressure currently borderline. History of heart failure with reduced ejection fraction to 30% * Blood pressure currently borderline * Careful with the fluids. * if blood pressure continues to drop consider central line and transferring the patient to ICU. History of diabetes mellitus * NovoLog sliding scale with Accu-Cheks History of TIA * Continue current medications. DVT prophylaxis with xeralto Patient is full code
--- NOTE | 2017-12-26 08:49 | Admission Certification ---
Admission Certification Certification Statement - As attending physician, I certify that at the time of - admission, based on clinical presentation, severity of - symptoms, need for further diagnostic testing and - therapeutic interventions, and risk of adverse outcomes - without in-hospital treatment, in my clinical assessment, - this patient requires an acute hospital stay for a minimum - of two nights or longer. I have also considered psychsocial - factors such as support system, advanced age, financial - issues, cognitive issues, and failed out-patient treatments, - past re-admission history, safety of patient, and lack of - compliance as applicable. Specific rationale supporting this admission is: Pneumonia
[2017-12-26 08:56] LABS: GRANULOCYTE % 96.8 % (42.2-75.2)
--- NOTE | 2017-12-26 11:51 | Cons- Vascular Surgery ---
See Addendum General Information and HPI Consulting Request Date of Consult: 12/26/17 Requested By: Kirill CR,Carmen Reason for Consult: CT scan findings Source of Information: patient, old records Exam Limitations: no limitations History of Present Illness: Mr. Vieira is a 67-year-old male with past medical history of A. fib, hypertension, COPD, presented to the emergency room yesterday with shortness of breath and lethargy. Subsequent imaging upon arrival demonstrate lung disease consistent with pneumonia, however also a finding on abdominal studies ordered a slightly larger several renal abdominal aortic aneurysm with opacity consistent with endo-repair leak. However he states that he has never had abdominal pain and denies lower extremity weakness or coldness. Since his repair by Dr. Osborne he has been asymptomatic regarding this surgical repair. Allergies/Medications Allergies: Coded Allergies: NO KNOWN ALLERGIES (02/05/16) Home Med List: [ACETAZOLAMIDE ER] 500 MG 1 PO DAILY DIRECTED (Reported) Albuterol Sulfate (Proair Hfa) 90 MCG HFA.AER.AD 2 PUF INH Q4-6 PRN PRN SHORTNESS OF BREATH (Reported) Albuterol Sulfate 2.5 MG/3 ML (0.083 %) VIAL.NEB 1 Vial INH/ABILIO Q4P PRN SHORTNESS OF BREATH (Reported) Aspirin (Aspirin*) 81 MG TAB.CHEW 1 TAB PO DAILY HEART HEALTH (Reported) Atorvastatin Calcium (Lipitor) 10 MG TABLET 1 TAB PO DAILY CHOLESTEROL ( Reported) Budesonide/Formoterol Fumarate (Symbicort 160-4.5 Mcg Inhaler) 160 MCG-4.5 MCG/ ACTUATION HFA.AER.AD 2 PUF INH BID SHORTNESS OF BREATH (Reported) Cyanocobalamin (Vitamin B-12) (B-12) 1,000 MCG TABLET 1 TAB PO DAILY VITAMIN SUPPORT (Reported) Diltiazem HCl (Cardizem Cd) 240 MG CAP.ER.24H 480 MG PO DAILY Atrial fibrillation [EQUATE ANTI DIARHEAL] 2 MG 2 PO QHS DIARRHEA (Reported) Ferrous Sulfate 325 MG TABLET.DR 325 MG PO BID Iron supplement Furosemide (Lasix) 40 MG TABLET 1 TAB PO BID Water pill Metformin HCl (Glucophage) 1,000 MG TABLET 1 TAB PO BID DIABETES (Reported) [NATURE MADE IRON] 65 MG TAB 4 TAB PO QHS BLOOD HEALTH (Reported) Pantoprazole Sodium (Protonix) 40 MG TABLET. 1 TAB PO DAILY ACID REFLUX ( Reported) Prednisone 20 MG TABLET 10 MG PO DAILY COPD please take 4 tab(40 mg) on 08/11/17 please take 3 tab(30 mg) on the 08/11-08/14 please take 2 tab(20 mg) on 08/15-08/17 please take 1 tab (10 mg) on 08-18-08/20 Rivaroxaban (Xarelto) 20 MG TABLET 1 TAB PO DAILY BLOOD THINNER (Reported) with food Tiotropium [place] (Spiriva) 18 MCG CAP.W.DEV 1 CAP INH DAILY SHORTNESS OF BREATH (Reported) Past History Medical History Neurological: TIA EENT: cataracts Cardiovascular: AFIB, CHF, hypertension, hyperlipidemia Respiratory: COPD, 4L O2 DEPENDENT BIPAP AT NIGHT Gastrointestinal: GERD, ABD ANEURYSM Hepatic: NONE Renal: NONE Musculoskeletal: NONE Psychiatric: NONE Endocrine: DIABETE Blood Disorders: NONE Cancer(s): prostate cancer ASSOCIATE PATHOLOGIST/Reproductive: NONE Surgical History Pertinent Surgical History: cataract removal, PROSTATE SURGERY AAA REPAIR TONSILLECTOMY Family History Relations & Conditions If Any: MOTHER, ; Cause: COPD (chronic obstructive pulmonary disease). FATHER, ; Cause: Myocardial infarct. SISTER, ; Cause: Myocardial infarct. Psychosocial History Where Do You Live? Home Who Do You Live With? self Services at Home: None Primary Language: Chinese Smoking Status: Former Smoker (Quit 40 years ago) ETOH Use: denies use Illicit Drug Use: denies illicit drug use Functional Ability ADLs Independent: dressing, eating, toileting, bathing. Ambulation: independent IADLs Independent: shopping, housework, finances, food prep, telephone, transportation , medication admin. Exam & Diagnostic Data Vital Signs and I&O Vital Signs Date Time Temp Pulse Resp B/P B/P Pulse O2 O2 Flow FiO2 Mean Ox Delivery Rate 12/26 1309 97.4 83 16 105/59 95 Room Air 12/26 1116 Nasal 4.0L Cannula 12/26 1115 96 Nasal 4.0L Cannula 12/26 1020 97.1 76 24 142/76 96 Nasal 4.0L Cannula 12/26 0820 98.9 95 18 88/51 98 BIPAP 30% 12/26 0614 96.5 82 20 95/69 98 Venti Mask 50% 12/26 0611 93 97 12/26 0328 98 99 12/26 0322 96 Venti Mask 35% 12/26 0231 98.6 106 20 105/69 96 Venti Mask 50% 12/26 0040 98.2 106 20 109/82 97 Venti Mask 5.0L 12/258 99.4 93 20 118/58 94 Venti Mask 5.0L 12/25 1930 99.2 105 20 115/55 94 Venti Mask 5.0L 12/25 191 94 Venti Mask 35% 12/25 190 Venti Mask 12/25 1836 98.5 78 30 124/63 81 Nasal 4.0L Cannula Intake & Output 12/26 1600 12/26 0812/26 0000 12/25 0812/25 0000 Intake Total Output Total Balance Patient 175 lb Weight Weight Reported by Patient Measurement Method Physical Exam General Appearance: lethargic, mild distress Head: atraumatic, normal appearance Eyes: Bilateral: PERRL. Respiratory: wheezing Cardiovascular: irregularly irregular Gastrointestinal: normal bowel sounds, soft, non-tender Extremities: left le 2+ pitting edema, distal cms intact bilat, no calf tenderness noted Last 24 Hours of Labs: Laboratory Tests 12/26 Blood Gas pH (7.35 - 7.45 PH) 7.31 L pCO2 (35 - 45 TORR) 52 H pO2 (80 - 100 TORR) 72 L HCO3 (21 - 28 MEQ/L) 26 ABG O2 Sat (Measured) (>96.0 %) 92.0 L P-50 (Temp Corrected) N Carboxyhemoglobin (1.5 - 5.0 %) 0.5 L O2 Concentration % 40% Temperature (97.0 - 100.0 FARH) 98.5 O2 Delivery Method V/M Chemistry Sodium (137 - 145 mmol/L) 147 H Potassium (3.5 - 5.1 mmol/L) 4.0 Chloride (98 - 107 mmol/L) 99 Carbon Dioxide (22 - 30 mmol/L) 30 Anion Gap (5 - 16) 18 H BUN (9 - 20 mg/dL) 27 H Creatinine (0.7 - 1.2 mg/dL) 1.5 H Estimated GFR (>60 ml/min) 47 L BUN/Creatinine Ratio (7 - 25 %) 18.0 Lactic Acid (0.7 - 2.1 mmol/L) 1.1 Hematology CBC w Diff NO MAN DIFF REQ WBC (4.8 - 10.8 /CUMM) 18.4 H RBC (4.70 - 6.10 /CUMM) 3.66 L Hgb (14.0 - 18.0 G/DL) 10.4 L Hct (42 - 52 %) 32.2 L MCV (80.0 - 94.0 FL) 88.0 MCH (27.0 - 31.0 PG) 28.3 MCHC (33.0 - 37.0 G/DL) 32.2 L RDW (11.5 - 14.5 %) 16.9 H Plt Count (130 - 400 /CUMM) 171 MPV (7.4 - 10.4 FL) 9.3 Gran % (42.2 - 75.2 %) 96.8 H Lymphocytes % (20.5 - 51.1 %) 2.0 L Monocytes % (1.7 - 9.3 %) 1.2 L Eosinophils % (0 - 5 %) 0 Basophils % (0.0 - 2.0 %) 0 Absolute Granulocytes (1.4 - 6.5 /CUMM) 17.8 H Absolute Lymphocytes (1.2 - 3.4 /CUMM) 0.4 L Absolute Monocytes (0.10 - 0.60 /CUMM) 0.2 Absolute Eosinophils (0.0 - 0.7 /CUMM) 0 Absolute Basophils (0.0 - 0.2 /CUMM) 0 Miscellaneous Phlebotomy Draw Site RIGHT RADIAL 12/25 1852 Chemistry Sodium (137 - 145 mmol/L) 147 H Potassium (3.5 - 5.1 mmol/L) 3.5 Chloride (98 - 107 mmol/L) 99 Carbon Dioxide (22 - 30 mmol/L) 32 H Anion Gap (5 - 16) 16 BUN (9 - 20 mg/dL) 23 H Creatinine (0.7 - 1.2 mg/dL) 1.5 H Estimated GFR (>60 ml/min) 47 L BUN/Creatinine Ratio (7 - 25 %) 15.3 Glucose (65 - 99 mg/dL) 142 H Lactic Acid (0.7 - 2.1 mmol/L) 1.5 Calcium (8.4 - 10.2 mg/dL) 9.0 Magnesium (1.6 - 2.3 mg/dL) 1.7 Total Bilirubin (0.2 - 1.3 mg/dL) 0.6 AST (17 - 59 U/L) 14 L ALT (21 - 72 U/L) 25 Alkaline Phosphatase (< 127 U/L) 83 Troponin I (<0.11 ng/ml) 0.04 Jhq-T-Vfxewzvoabv Pept (<125 pg/mL) 7220 H Total Protein (6.3 - 8.2 g/dL) 6.5 Albumin (3.5 - 5.0 g/dL) 4.2 Globulin (1.9 - 4.2 gm/dL) 2.3 Albumin/Globulin Ratio (1.1 - 2.2 %) 1.8 Coagulation D-Dimer High Sensitivty (0 - 243 ng/ml) 269 H Hematology CBC w Diff MAN DIFF ORDERED WBC (4.8 - 10.8 /CUMM) 18.8 H RBC (4.70 - 6.10 /CUMM) 4.22 L Hgb (14.0 - 18.0 G/DL) 11.8 L Hct (42 - 52 %) 36.8 L MCV (80.0 - 94.0 FL) 87.1 MCH (27.0 - 31.0 PG) 28.0 MCHC (33.0 - 37.0 G/DL) 32.2 L RDW (11.5 - 14.5 %) 16.9 H Plt Count (130 - 400 /CUMM) 210 MPV (7.4 - 10.4 FL) 9.2 Gran % (42.2 - 75.2 %) 90.1 H Lymphocytes % (20.5 - 51.1 %) 6.1 L Monocytes % (1.7 - 9.3 %) 3.5 Eosinophils % (0 - 5 %) 0.2 Basophils % (0.0 - 2.0 %) 0.1 Absolute Granulocytes (1.4 - 6.5 /CUMM) 16.9 H Segmented Neutrophils (42.2 - 75.2 %) 81 H Band Neutrophils (0.0 - 5.0 %) 3 Absolute Lymphocytes (1.2 - 3.4 /CUMM) 1.1 L Lymphocytes (20.5 - 51.1 %) 10 L Monocytes (1.7 - 9.3 %) 5 Absolute Monocytes (0.10 - 0.60 /CUMM) 0.7 H Eosinophils (0 - 5.0 %) 1 Absolute Eosinophils (0.0 - 0.7 /CUMM) 0 Absolute Basophils (0.0 - 0.2 /CUMM) 0 Platelet Estimate (ADEQUATE) VERIFIED BY SMEAR Normocytic RBCs VERIFIED Normochromic RBCs VERIFIED Other Body Source Fld Total RBCs Counted (%) 100 Imaging Results: SERVICE DATE: 12/25/17 EXAM TYPE: CAT - CT ABD & PELVIS W IV CONTRAST; CTA CHEST-PULMONARY EMBOLISM EXAMINATION: CHEST CTA PULMONARY EMBOLISM CT ABDOMEN AND PELVIS WITH CONTRAST CLINICAL INFORMATION: COPD. Shortness of breath. Abdominal pain. COMPARISON: Chest x-ray of 12/25/2017, 08/09/2017. Chest CT of 05/01/2017 and 02/06/2016. TECHNIQUE: A few noncontrast axial images through the chest were obtained for contrast localization purpose. Following intravenous administration of 95 mL of Optiray 350, multidetector volumetric CT imaging through the chest was obtained as per CT pulmonary angiography protocol. Postprocessing is performed at a dedicated workstation. Multiplanar reformatted and MIPS images are submitted. Following acquisition of chest CTA, multidetector volumetric CT imaging of the abdomen and pelvis was acquired. Postprocessing was performed at a dedicated workstation. Sagittal and coronal reformatted images were submitted. DLP: 824.76 mGy-cm FINDINGS: CHEST: There is satisfactory enhancement of the pulmonary arterial tree. There is no evidence of filling defect in the pulmonary arterial tree to suggest pulmonary embolism. The ascending aorta measures 3.5 cm in AP dimension and the descending thoracic aorta measures 3.2 cm in maximum AP dimension. No evidence of thoracic aortic aneurysm or dissection. Moderate coronary calcifications are noted. There is generalized mxge-xk-wpzszsqk cardiomegaly. No pericardial or pleural effusions. There is no evidence of axillary, mediastinal or hilar adenopathy. Bilateral symmetrical xkxk-ao-wjlxejfa gynecomastia is noted. There is mild diffuse enlargement of the right thyroid lobe and isthmus. No discrete nodule is noted in the visualized thyroid. Evaluation of the lung parenchyma is somewhat limited by multiple respiratory motion artifacts. Moderate centrilobular changes of emphysema are noted in the upper lobes. There are more severe emphysematous changes noted in the right lower lobe with large bullous changes. The patchy airspace opacities noted on the CT scan of 05/01/2017 have resolved however, there are new small patchy airspace opacities in the left upper lobe. More consolidative mjiwgaei-wm-yxifx amount of air space disease is noted in the left lower lobe at the lung base. The finding represents recurrent disease here as the chest x-ray of 08/09/2017 demonstrated interval resolution of left lung airspace disease seen on the CT scan of 05/01/2017. The right lung is otherwise relatively clear. A 3 mm pleural-based triangular density in the right upper lobe anterolaterally (series 3 image 19) is a stable finding. Trachea and central bronchi are well patent. No pneumothorax. ABDOMEN AND PELVIS: The liver is normal in size, shape and attenuation. No focal liver lesion or biliary ductal dilatation. Small hypodensity in the liver adjacent to the falciform ligament (series 5 image 21) likely represents focal fatty infiltration or perfusion abnormality. The gallbladder is mildly distended. Several small faceted calcified gallstones are noted. Wall of the gallbladder is not thickened. No obvious pericholecystic inflammatory changes. The spleen and adrenal glands are unremarkable. There is moderate atrophy of the pancreas. The kidneys are normal in size, shape and attenuation. No hydroureteronephrosis or significant perinephric stranding. A 0.5 cm nonobstructing calculus in the left kidney is noted (series 5 image 33). The stomach is decompressed and therefore, not well evaluated however, grossly appears unremarkable. Small bowel is not dilated. The colon is normal in caliber. There is no evidence of colonic wall thickening or pericholecystic fat stranding. Extensive diverticulosis of the sigmoid colon is noted. There is bstvtyno-qg-kjxrw volume stool in the colon. An appendix is normal. Sacralization is noted in the distal ileal loops which may suggest slow transit of the intestinal contents versus bacterial overgrowth. There is no evidence of free intraperitoneal air or fluid. No pathologically enlarged lymph nodes are noted. Postsurgical changes of the abdominal aortic aneurysm repair with aortic bicommon iliac stent graft are noted. The aneurysmal dilatation of the distal infrarenal abdominal aorta measures 6.4 x 6.7 cm in AP and transverse dimensions. At the inferior aspect of the aneurysmal lumen adjacent to the stent graft, a focus of hyperdensity is noted within the aneurysm measuring 2.4 cm in diameter (series 5 image 46, series 602 image 51, series 601 image 65). No precontrast images through the abdomen were obtained. The differential possibility may include hyperdense thrombus versus endoleak. There is no evidence of periaortic fat stranding or fluid collection/hematoma. The urinary bladder is underdistended however, unremarkable. Prostate and seminal vesicles are not seen, correlate with surgical history. There is a left inguinal hernia containing fat measuring 5.4 cm in maximum dimension. Surgical clips are noted in the left inguinal region. There are surgical clips in the right inguinal region as well adjacent to the vasculature. OSSEOUS STRUCTURES: No acute or suspicious osseous abnormality is noted in the chest, abdomen and pelvis. Degenerative disc disease is present from L3 to S1 with narrowing of the disc spaces and vacuum disc phenomenon. Facet arthropathy is noted in the lower lumbar spine. IMPRESSION: 1. No evidence of pulmonary embolism. 2. New patchy airspace opacities in the left lung, most significant in the left lower lobe at the lung base are concerning for infectious versus inflammatory infiltrates. Changes of emphysema. 3. Postsurgical changes of aortic aneurysmal repair with aortic bicommon iliac stent grafts in place. A hyperdense focus within the distal abdominal aortic aneurysm lumen at the inferior aspect of the aneurysm adjacent to the stent graft may represent an stent endoleak or hyperdense thrombus. Further evaluation with dedicated abdominal CTA for evaluation of endoleak may be considered. No evidence of abdominal aortic aneurysm rupture. No evidence of vero-aneurysmal fat stranding, contrast extravasation or hematoma. 4. Colonic diverticulosis without acute diverticulitis. Dkitrdqd-zb-rwuyw volume stool in the colon. 5. Left renal nonobstructing calculus. 6. Cholelithiasis without acute cholecystitis. 7. Left inguinal hernia containing fat. VTE: Negative This critical result was discussed with AGNES Aranda at 9:56 PM on 12/25/2017 and it was ascertained that the content and urgency of the report was understood at the time of direct communication. DICTATED BY: Anoop CR,Anal DATE/TIME DICTATED:12/25/172105 REAL ESTATE JOB TITLES:LINDY DATE/TIME TRANSCRIBED:12/25/172105 Assessment/Plan Assessment/Plan Mr. Vieira is a 67-year-old male being admitted for pneumonia, and multiple other comorbid medical conditions was found to have on abdominal CAT scan Endo repair of sub-renal AAA with questionable endoleak at repair site. This case was discussed with Dr. Conrad who feels based on physical exam and radiographic findings that there is no acute need for vascular intervention at this time. However the patient should follow-up with Dr. Osborne upon discharge. Plan May resume all home meds and anticoagulation Any changes in lower extremity circulation, increased abdominal pain, please feel free to contact vascular surgery for reconsult. Consult Acknowledgment - Thank you for your consult request.
--- NOTE | 2017-12-26 12:12 | Cons- Pulmonary ---
General Information and HPI Consulting Request Date of Consult: 12/26/17 Requested By: Dr. Roy Reason for Consult: dyspnea Source of Information: patient Exam Limitations: no limitations History of Present Illness: 67 year old man. 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 Presents with leg edema and dyspnea. Few days worsening dyspnea and cough (non productive). ROS is negative for fever /chills,recent URI, sick contacts or travel. CTA - new patchy aispace disease left lung, LLL most prominent, emphysema. Postsurgical aortic aneurysmal repair, ?endoleak/thrombus. WBC 18.4. Allergies/Medications Allergies: Coded Allergies: NO KNOWN ALLERGIES (02/05/16) Home Med List: [ACETAZOLAMIDE ER] 500 MG 1 PO DAILY DIRECTED (Reported) Albuterol Sulfate (Proair Hfa) 90 MCG HFA.AER.AD 2 PUF INH Q4-6 PRN PRN SHORTNESS OF BREATH (Reported) Albuterol Sulfate 2.5 MG/3 ML (0.083 %) VIAL.NEB 1 Vial INH/ABILIO Q4P PRN SHORTNESS OF BREATH (Reported) Aspirin (Aspirin*) 81 MG TAB.CHEW 1 TAB PO DAILY HEART HEALTH (Reported) Atorvastatin Calcium (Lipitor) 10 MG TABLET 1 TAB PO DAILY CHOLESTEROL ( Reported) Budesonide/Formoterol Fumarate (Symbicort 160-4.5 Mcg Inhaler) 160 MCG-4.5 MCG/ ACTUATION HFA.AER.AD 2 PUF INH BID SHORTNESS OF BREATH (Reported) Cyanocobalamin (Vitamin B-12) (B-12) 1,000 MCG TABLET 1 TAB PO DAILY VITAMIN SUPPORT (Reported) Diltiazem HCl (Cardizem Cd) 240 MG CAP.ER.24H 480 MG PO DAILY Atrial fibrillation [EQUATE ANTI DIARHEAL] 2 MG 2 PO QHS DIARRHEA (Reported) Ferrous Sulfate 325 MG TABLET.DR 325 MG PO BID Iron supplement Furosemide (Lasix) 40 MG TABLET 1 TAB PO BID Water pill Metformin HCl (Glucophage) 1,000 MG TABLET 1 TAB PO BID DIABETES (Reported) [NATURE MADE IRON] 65 MG TAB 4 TAB PO QHS BLOOD HEALTH (Reported) Pantoprazole Sodium (Protonix) 40 MG TABLET. 1 TAB PO DAILY ACID REFLUX ( Reported) Prednisone 20 MG TABLET 10 MG PO DAILY COPD please take 4 tab(40 mg) on 08/11/17 please take 3 tab(30 mg) on the 08/11-08/14 please take 2 tab(20 mg) on 08/15-08/17 please take 1 tab (10 mg) on 08-18-08/20 Rivaroxaban (Xarelto) 20 MG TABLET 1 TAB PO DAILY BLOOD THINNER (Reported) with food Tiotropium [place] (Spiriva) 18 MCG CAP.W.DEV 1 CAP INH DAILY SHORTNESS OF BREATH (Reported) Current Medications: Current Medications Sig/Eve Start time Last Medication Dose Route Stop Time Status Admin Albuterol Sulfate 3 ML EVERY 4 HRS/AWAKE 12/26 1600 AC INH Albuterol Sulfate 3 ML Q4P PRN 12/26 0315 AC INH Albuterol Sulfate 3 ML ONCE ONE 12/26 0300 DC 12/26 INH 12/26 0301 0256 Albuterol Sulfate 3 ML ONCE ONE 12/25 1900 DC 12/25 INH 12/25 1901 1915 Aspirin 81 MG DAILY 12/26 1000 AC 12/26 PO 0931 Atorvastatin Calcium 10 MG 1700 12/26 1700 AC PO Azithromycin 500 MG DAILY 12/26 1000 AC 12/26 Dextrose/Water 250 ML IV 0931 Azithromycin 500 MG ONCE ONE 12/25 2014 DC 12/25 Dextrose/Water 250 ML IV 12/25 2113 2112 Budesonide/ 2 PUF BID 12/26 1000 AC 12/26 Formoterol Fumarate INH 1025 Ceftriaxone Sodium 1,000 MG DAILY 12/26 1000 AC 12/26 IV 0931 Ceftriaxone Sodium 0 .STK-MED ONE 12/25 2034 DC .ROUTE Ceftriaxone Sodium 1,000 MG ONCE ONE 12/25 2014 DC 0205 IV 12/25 Cyanocobalamin 1,000 MCG DAILY 12/26 1000 AC 12/26 PO 0931 Diltiazem HCl 480 MG DAILY 12/26 1000 AC 12/26 PO 0931 Ferrous Sulfate 325 MG BID 12/26 1000 AC 12/26 PO 0931 Furosemide 40 MG BID 12/26 315 DC PO Insulin Aspart 0 AT BEDTIME 12/26 2200 AC SC Insulin Aspart 0 TIDAC 12/26 0800 AC 12/26 SC 1151 Metformin HCl 1,000 MG BID 12/26 0316 DC PO Methylprednisolone 40 MG Q12 12/26 1000 AC 12/26 IV 0931 Methylprednisolone 0 .STK-MED ONE 12/25 1905 DC .ROUTE Methylprednisolone 125 MG ONCE ONE 12/250 DC 12/25 IV 12/25 1901 1905 Rivaroxaban 20 MG DAILY 12/26 1000 AC 12/26 PO 0931 Sodium Chloride 1,000 ML Q10H 12/26 0530 CAN IV Sodium Chloride 1,000 ML Q13H 12/26 0530 AC 12/26 IV 12/26 1829 0545 Tiotropium [place] 1 PUF DAILY 12/26 1000 AC 12/26 INH 0931 Review of Systems Comments 18 point review of systems was performed and reviewed. Please see pertinent positives and pertinent negatives in the HPI. Otherwise ROS is negative. 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 FATHER, ; Cause: Myocardial infarct. SISTER, ; Cause: Myocardial infarct. Psychosocial History Where Do You Live? Home Who Do You Live With? self Services at Home: None Primary Language: Divehi Smoking Status: Former Smoker (Quit 40 years ago) ETOH Use: denies use Illicit Drug Use: denies illicit drug use Functional Ability ADLs Independent: dressing, eating, toileting, bathing. Ambulation: independent IADLs Independent: shopping, housework, finances, food prep, telephone, transportation , medication admin. Exam & Diagnostic Data Last 24 Hrs of Vital Signs/I&O Vital Signs Date Time Temp Pulse Resp B/P B/P Pulse O2 O2 Flow FiO2 Mean Ox Delivery Rate 12/26 1116 Nasal 4.0L Cannula 12/26 1115 96 Nasal 4.0L Cannula 12/26 0820 98.9 95 18 88/51 98 BIPAP 30% 12/26 613 96.5 82 20 95/69 98 Venti Mask 50% 12/26 0611 93 97 12/26 0328 98 99 12/26 0322 96 Venti Mask 35% 12/26 0231 98.6 106 20 105/69 96 Venti Mask 50% 12/26 0040 98.2 106 20 109/82 97 Venti Mask 5.0L 12/25 2157 99.4 93 20 118/58 94 Venti Mask 5.0L 12/25 1930 99.2 105 20 115/55 94 Venti Mask 5.0L 12/25 1914 94 Venti Mask 35% 12/25 190 Venti Mask 12/25 1836 98.5 78 30 124/63 81 Nasal 4.0L Cannula Intake & Output 12/26 1600 12/26 0800 12/26 0000 Intake Total Output Total Balance Patient 175 lb Weight Weight Reported by Patient Measurement Method Physical Exam Other Physical Findings: Generally - Awake, alert Head and neck - normocephalic, atraumatic, EOMI grossly intact Cardiovascular - S1, S2 Lungs - bilateral rhonchi, diminished bs Abdomen - Bowel sounds positive, soft, non-tender Extremities - leg edmea L>R 2+ Last 48 Hrs of Labs/Sridhar: Laboratory Tests 12/26/17619: Anion Gap 18 H, Estimated GFR 47 L, BUN/Creatinine Ratio 18.0, CBC w Diff NO MAN DIFF REQ, RBC 3.66 L, MCV 88.0, MCH 28.3, MCHC 32.2 L, RDW 16.9 H, MPV 9.3, Gran % 96.8 H, Lymphocytes % 2.0 L, Monocytes % 1.2 L, Eosinophils % 0, Basophils % 0, Absolute Granulocytes 17.8 H, Absolute Lymphocytes 0.4 L, Absolute Monocytes 0.2, Absolute Eosinophils 0, Absolute Basophils 0 12/25/172154: Lactic Acid 1.1 12/25/171909: pH 7.31 L, pCO2 52 H, pO2 72 L, HCO3 26, ABG O2 Sat (Measured) 92.0 L, P-50 (Temp Corrected) N, Carboxyhemoglobin 0.5 L, O2 Concentration % 40%, Temperature 98.5, O2 Delivery Method V/M, Phlebotomy Draw Site RIGHT RADIAL 12/25/171851: Anion Gap 16, Estimated GFR 47 L, BUN/Creatinine Ratio 15.3, Glucose 142 H, Lactic Acid 1.5, Calcium 9.0, Magnesium 1.7, Total Bilirubin 0.6, AST 14 L, ALT 25, Alkaline Phosphatase 83, Troponin I 0.04, Tsb-H-Olrifrppkay Pept 7220 H, Total Protein 6.5, Albumin 4.2, Globulin 2.3, Albumin/Globulin Ratio 1.8, D- Dimer High Sensitivty 269 H, CBC w Diff MAN DIFF ORDERED, RBC 4.22 L, MCV 87.1 , MCH 28.0, MCHC 32.2 L, RDW 16.9 H, MPV 9.2, Gran % 90.1 H, Lymphocytes % 6.1 L, Monocytes % 3.5, Eosinophils % 0.2, Basophils % 0.1, Absolute Granulocytes 16.9 H, Segmented Neutrophils 81 H, Band Neutrophils 3, Absolute Lymphocytes 1.1 L, Lymphocytes 10 L, Monocytes 5, Absolute Monocytes 0.7 H, Eosinophils 1, Absolute Eosinophils 0, Absolute Basophils 0, Platelet Estimate VERIFIED BY SMEAR, Normocytic RBCs VERIFIED, Normochromic RBCs VERIFIED, Fld Total RBCs Counted 100 Microbiology 12/250 NASOPHARYN: Influenza Virus A & B Rapid Smear - COMP Assessment/Plan Impression/Plan: Impression 67 year old man. 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 Presents with leg edema and dyspnea. Few days worsening dyspnea and cough (non productive). ROS is negative for fever /chills,recent URI, sick contacts or travel. CTA - new patchy aispace disease left lung, LLL most prominent, emphysema. Postsurgical aortic aneurysmal repair, ?endoleak/thrombus. WBC 18.4. Plan -CAP, primarily LLL -COPD with exacerbation -acute on chronic hypercarbic respiratory failure -?endoleak/thrombus postsurgical aortic aneurysm Plan -ceftriaxone, zithromax -legionella, strep ag -sputum cx -vascular surgery input on CT findings -solumedrol 40mg iv q12h -monitor finger sticks -TRC/Nebs -bipap as needed and nocturnal DVT prophylaxis at all times Consult Acknowledgment - Thank you for your consult request.
[2017-12-26 17:03] VITALS: BP 110/84
--- NOTE | 2017-12-26 17:46 | PN- Att Addend ---
Attending Addendum Attending Brief Note Patient seen and examined. Resting comfortably not in acute distress. Reports feeling better compared to presentation. Currently afebrile hemodynamically stable. Blood pressure was low earlier on today but has improved. He denies nausea vomiting. Denies abdominal pain. He is maintaining saturation on 4 L of oxygen. Vital Signs Date Time Temp Pulse Resp B/P B/P Pulse O2 O2 Flow FiO2 Mean Ox Delivery Rate 12/26 1710 94 Nasal 4.0L Cannula 12/26 1703 97.7 88 20 110/84 96 4.0L 12/26 1636 Nasal 4.0L Cannula 12/26 1559 98.2 79 22 104/72 94 Nasal 4.0L Cannula 12/26 1309 97.4 83 16 105/59 95 Room Air 12/26 1116 Nasal 4.0L Cannula 12/26 1115 96 Nasal 4.0L Cannula 12/26 1020 97.1 76 24 142/76 96 Nasal 4.0L Cannula 12/26 0820 98.9 95 18 88/51 98 BIPAP 30% 12/26 0614 96.5 82 20 95/69 98 Venti Mask 50% 06 0611 93 97 / 0328 98 99 02/06 0322 96 Venti Mask 35% 12/26 0231 98.6 106 20 105/69 96 Venti Mask 50% 12/26 0040 98.2 106 20 109/82 97 Venti Mask 5.0L / 2158 99.4 93 20 118/58 94 Venti Mask 5.0L /05 1930 99.2 105 20 115/55 94 Venti Mask 5.0L 12/25 1915 94 Venti Mask 35% 12/25 1906 Venti Mask / 1836 98.5 78 30 124/63 81 Nasal 4.0L Cannula Gen. appearance: Not in acute distress Heart: S1-S2 irregular Lungs: Good entry bilaterally with no added sounds. Abdomen: Soft, nontender with normal bowel sounds Extremities: 1+ bilateral pitting edema Skin: Intact Laboratory Tests 12/26/17 0620: Anion Gap 18 H, Estimated GFR 47 L, BUN/Creatinine Ratio 18.0, CBC w Diff NO MAN DIFF REQ, RBC 3.66 L, MCV 88.0, MCH 28.3, MCHC 32.2 L, RDW 16.9 H, MPV 9.3, Gran % 96.8 H, Lymphocytes % 2.0 L, Monocytes % 1.2 L, Eosinophils % 0, Basophils % 0, Absolute Granulocytes 17.8 H, Absolute Lymphocytes 0.4 L, Absolute Monocytes 0.2, Absolute Eosinophils 0, Absolute Basophils 0 12/25/172154: Lactic Acid 1.1 12/25/171909: pH 7.31 L, pCO2 52 H, pO2 72 L, HCO3 26, ABG O2 Sat (Measured) 92.0 L, P-50 (Temp Corrected) N, Carboxyhemoglobin 0.5 L, O2 Concentration % 40%, Temperature 98.5, O2 Delivery Method V/M, Phlebotomy Draw Site RIGHT RADIAL 12/25/171851: Anion Gap 16, Estimated GFR 47 L, BUN/Creatinine Ratio 15.3, Glucose 142 H, Lactic Acid 1.5, Calcium 9.0, Magnesium 1.7, Total Bilirubin 0.6, AST 14 L, ALT 25, Alkaline Phosphatase 83, Troponin I 0.04, Vuy-K-Xcsypcgefvg Pept 7220 H, Total Protein 6.5, Albumin 4.2, Globulin 2.3, Albumin/Globulin Ratio 1.8, D- Dimer High Sensitivty 269 H, CBC w Diff MAN DIFF ORDERED, RBC 4.22 L, MCV 87.1 , MCH 28.0, MCHC 32.2 L, RDW 16.9 H, MPV 9.2, Gran % 90.1 H, Lymphocytes % 6.1 L, Monocytes % 3.5, Eosinophils % 0.2, Basophils % 0.1, Absolute Granulocytes 16.9 H, Segmented Neutrophils 81 H, Band Neutrophils 3, Absolute Lymphocytes 1.1 L, Lymphocytes 10 L, Monocytes 5, Absolute Monocytes 0.7 H, Eosinophils 1, Absolute Eosinophils 0, Absolute Basophils 0, Platelet Estimate VERIFIED BY SMEAR, Normocytic RBCs VERIFIED, Normochromic RBCs VERIFIED, Fld Total RBCs Counted 100 Microbiology 12/25 2229 NASOPHARYN: Influenza Virus A & B Rapid Smear - COMP 12/25 1929 BLOOD: Blood Culture - RES 12/25 1851 BLOOD: Blood Culture - RES 12/25 1844 LOWER RESP: Respiratory Culture - CAN Cancelled: SPECIMEN NOT RECEIVED IN LABORATORY 12/25 1844 LOWER RESP: Gram Stain - CAN Cancelled: SPECIMEN NOT RECEIVED IN LABORATORY Problems: 1. Community-acquired pneumonia 2. Abdominal aortic aneurysm; leaking 3. Oxygen dependent COPD Plan: -Continue current antibiotic therapy. -Continue bronchodilator therapy. If patient remains without evidence of bronchospasm in the morning his intravenous steroids can be tapered off. -Vascular surgery consultation appreciated. Plans are for elective repair.
[2017-12-26 21:34] VITALS: BP 116/58
[2017-12-27 06:39] VITALS: BP 110/58
--- NOTE | 2017-12-27 08:04 | PN- Housestaff ---
Magali Byers 12/27/17 0803: Subjective Follow-up For: Acute on chronic respiratory failure due to COPD exacerbation and community- acquired pneumonia. Tele-Events Since Last Visit: Atrial fibrillation, on the heart monitor heart rate between 67 to 11/20/2009 Subjective: Patient is seen and examined this morning, didn't sleep well, still reports shortness of breath with productive cough, otherwise remains afebrile overnight. Other vitals are stable. Denies any nausea vomiting abdominal discomfort. Tolerating diet well Review of Systems Constitutional: Denies: chills, diaphoresis, fever. EENTM: Denies: blurred vision, double vision. Cardiovascular: Denies: chest pain, edema, orthopena. Respiratory: Reports: cough, short of breath, sputum production. Gastrointestinal: Denies: abdominal pain, constipation, diarrhea, distention. Genitourinary: Denies: frequency, hematuria, hesitation. Musculoskeletal: Denies: gout, joint pain, joint swelling. Objective Last 24 Hrs of Vital Signs/I&O Vital Signs Date Time Temp Pulse Resp B/P B/P Pulse O2 O2 Flow FiO2 Mean Ox Delivery Rate 12/27 0800 95 Nasal 4.0L Cannula 12/27 0742 98 Nasal 4.0L Cannula 12/27 0639 97.9 77 20 110/58 94 Nasal Cannula 12/26 2240 85 96 12/26 2134 Nasal 4.0L Cannula 12/26 2134 98.6 91 22 116/58 98 Nasal 4.0L Cannula 12/26 1710 94 Nasal 4.0L Cannula 12/26 1703 97.7 88 20 110/84 96 4.0L 12/26 1636 Nasal 4.0L Cannula 12/26 1559 98.2 79 22 104/72 94 Nasal 4.0L Cannula Intake & Output 12/27 1600 12/27 0800 02 0000 Intake Total 370 Output Total 350 Balance -350 370 Intake, IV 10 Intake, Oral 360 Output, Urine 350 Patient 181 lb 184 lb Weight Weight Bed scale Bed scale Measurement Method Physical Exam General Appearance: Alert, Oriented X3, Cooperative Skin: No Rashes, No Breakdown HEENT: Atraumatic, PERRLA, EOMI Lungs: Clear to Auscultation Abdomen: Normal Bowel Sounds, Soft, No Tenderness Neurological: Normal Gait, Normal Speech Extremities: No Clubbing, No Cyanosis Assessment/Plan Assessment: Patient is a 67-year-old gentleman with a past medical history significant for chronic respiratory failure due to COPD on 4 L of oxygen at baseline with nocturnal BiPAP, history of type 2 diabetes mellitus, history of hypertension and hyperlipidemia, history of abdominal aortic aneurysm repair, history of A. fib, HFrEF with 30% ejection presented to the ED for the evaluation of worsening shortness of breath with productive cough. Vitals on admission MAXIMUM TEMPERATURE 98.5, with pulse 105, respiratory rate 30,, blood pressure 124/63 on arrival that dropped to 109/82, saturating 81% on 4 L, started on Ventimask 35% Pertinent labs on admission leukocytosis: 18.8 with 90% neutrophil count and bandemia 3,, H&H 11.8/ 36.8, platelet 210, normal LFTs, proBNP 7220, d-dimer 269 AB.31/52/72/26 on 40% Ventimask CTA chest and CT abdomen and pelvis with IV contrast " Showed no evidence of upper airway embolism however showed new patchy airspace opacities in the left lung, most significant in the left lower lobe at the lung base are concerning for infectious versus inflammatory infiltrates. CT was also evident for Postsurgical changes of aortic aneurysmal repair with aortic bicommon iliac stent grafts in place. A hyperdense focus within the distal abdominal aortic aneurysm lumen at the inferior aspect of the aneurysm adjacent to the stent graft may represent an stent endoleak or hyperdense thrombus.. Acute on chronic respiratory failure due to COPD exacerbation and community- acquired pneumonia. History of diabetes mellitus History of heart failure with reduced ejection fraction to 30% History of TIA History of abdominal aortic aneurysm status post repair(with a chest CT finding of stent endoleak or hyperdense thrombus) Plan Acute on chronic respiratory failure due to COPD exacerbation and community- acquired pneumonia. * Continue to monitor patient on telemetry floor * Continue with IV Solu-Medrol 40 g daily for now * Continue IV cefazolin and azithromycin * Continue TRC nebs * Continue to follow up with Dr. So recommendations * Nocturnal BiPAP as needed. History of abdominal aortic aneurysm status post repair(with a chest CT finding of stent endoleak or hyperdense thrombus) * Vascular surgery has been involved will follow the recommendations * Closely monitor the blood pressure currently borderline. History of heart failure with reduced ejection fraction to 30% * Blood pressure currently borderline * Careful with the fluids. * if blood pressure continues to drop consider central line and transferring the patient to ICU. History of diabetes mellitus * NovoLog sliding scale with Accu-Cheks History of TIA * Continue current medications. DVT prophylaxis with xeralto Patient is full code Problem List: 1. Respiratory failure Pain Ratin Pain Location: no pain Pain Goal: Remain pain free Pain Plan: prn tylenol Tomorrow's Labs & Rationales: cbc and bep Matt Garcia MD 12/27/17 1510: Attending MD Review Statement Attending Statement Attending MD Statement: examined this patient, discuss w/resident/PA/[employer]CHO[employer] REPAIR TEACHER, agreed w/resident/PA/H[employer] SCHO[employer]O REPAIR TEACHER, reviewed EMR data (avail), discussed with nursing, discussed with case mgmt, amended to note Attending Assessment/Plan: Patient seen and examined resting comfortably and not in acute distress. No issues overnight. No new complaints this morning. He reports feeling better. On examination he has adequate entry bilaterally with no expiratory rhonchi. He has bilateral lower extremity edema which appeared to be improving today compared to yesterday. Patient shows no evidence of bronchospasm at present, decrease his Solu-Medrol to 40 mg daily today. Continue diuresis with Lasix 40 mg orally twice daily. Continue antibiotic therapy for his pneumonia. Wean the oxygen supplementation. Anticipate discharge in next 24-48 hours. Patient will follow up with the vascular surgery service as an outpatient. Discontinue telemetry monitoring.
[2017-12-27 08:13] LABS: ABSOLUTE BASOPHIL COUNT 0 /CUMM (0.0-0.2); ABSOLUTE EOSINOPHIL COUNT 0 /CUMM (0.0-0.7); ABSOLUTE GRANULOCYTE CT 10.3 /CUMM (1.4-6.5); ABSOLUTE LYMPH COUNT 0.4 /CUMM (1.2-3.4); ABSOLUTE MONOCYTE COUNT 0.3 /CUMM (0.10-0.60); BASOPHIL % 0 % (0.0-2.0); EOSINOPHIL % 0 % (0-5); MEAN CORPUSCULAR HGB 27.9 PG (27.0-31.0); MEAN CORPUSCULAR HGB CONC 32.1 G/DL (33.0-37.0); MEAN CORPUSCULAR VOLUME 86.7 FL (80.0-94.0); MEAN PLATELET VOLUME 9.7 FL (7.4-10.4); PLATELET COUNT 158 /CUMM (130-400); RBC DISTRIBUTION WIDTH 16.5 % (11.5-14.5); RED BLOOD CELL CT 3.09 /CUMM (4.70-6.10); WHITE BLOOD CELL COUNT 10.9 /CUMM (4.8-10.8)
[2017-12-27 08:41] LABS: HEMATOCRIT 26.8 % (42-52)
[2017-12-27 09:21] LABS: GRANULOCYTE % 94.2 % (42.2-75.2)
--- NOTE | 2017-12-27 11:00 | PN- Pulmonary ---
Subjective HPI/Critical Care Issues: pt seen and examined doing well feels better Objective Current Medications: Current Medications Sig/Eve Start time Last Medication Dose Route Stop Time Status Admin Albuterol Sulfate 3 ML EVERY 4 HRS/AWAKE 12/26 1600 AC 12/27 INH 0741 Albuterol Sulfate 3 ML Q4P PRN 12/26 0315 AC INH Aspirin 81 MG DAILY 12/26 1000 AC 12/27 PO 0823 Atorvastatin Calcium 10 MG 1700 12/26 1700 AC 12/26 PO 1734 Azithromycin 500 MG DAILY 12/26 1000 AC 12/27 Dextrose/Water 250 ML IV 0823 Budesonide/ 2 PUF BID 12/26 1000 AC 12/27 Formoterol Fumarate INH 0824 Ceftriaxone Sodium 1,000 MG DAILY 12/26 1000 AC 12/27 IV 0823 Cyanocobalamin 1,000 MCG DAILY 12/26 1000 AC 12/27 PO 0824 Diltiazem HCl 480 MG DAILY 12/26 1000 AC 12/27 PO 0822 Ferrous Sulfate 325 MG BID 12/26 1000 AC 12/27 PO 0822 Insulin Aspart 0 AT BEDTIME 12/26 2200 AC SC Insulin Aspart 0 TIDAC 12/26 0800 AC 12/27 SC 0824 Methylprednisolone 40 MG Q12 12/26 1000 AC 12/27 IV 0823 Rivaroxaban 20 MG DAILY 12/26 1000 AC 12/27 PO 0822 Sodium Chloride 1,000 ML Q13H 12/26 0530 DC / IV 12/26 1829 0545 Tiotropium [place] 1 PUF DAILY 12/26 1000 AC 12/27 INH 0824 Vital Signs & I&O Last 24 Hrs of Vitals and I&O: Vital Signs Date Time Temp Pulse Resp B/P B/P Pulse O2 O2 Flow FiO2 Mean Ox Delivery Rate 12/27 0742 98 Nasal 4.0L Cannula 12/27 0639 97.9 77 20 110/58 94 Nasal Cannula 12/26 2240 85 96 12/26 2133 Nasal 4.0L Cannula 12/26 213 98.6 91 22 116/58 98 Nasal 4.0L Cannula 12/26 1710 94 Nasal 4.0L Cannula 12/26 1703 97.7 88 20 110/84 96 4.0L 12/26 1636 Nasal 4.0L Cannula 12/26 1559 98.2 79 22 104/72 94 Nasal 4.0L Cannula 12/26 1309 97.4 83 16 105/59 95 Room Air 12/26 1116 Nasal 4.0L Cannula 12/26 1115 96 Nasal 4.0L Cannula Intake & Output 12/27 1600 12/27 0800 12/27 0000 Intake Total 370 Output Total 350 Balance -350 370 Intake, IV 10 Intake, Oral 360 Output, Urine 350 Patient 181 lb 184 lb Weight Weight Bed scale Bed scale Measurement Method Exam Other Physical Findings: Generally - Awake, alert Head and neck - normocephalic, atraumatic, EOMI grossly intact Cardiovascular - S1, S2 Lungs - bilateral rhonchi, diminished bs Abdomen - Bowel sounds positive, soft, non-tender Extremities - leg edmea L>R 2+ - chronically Results Last 24 Hrs of Lab Results: Laboratory Tests 12/27/17 0630: Anion Gap 12, Estimated GFR 43 L, BUN/Creatinine Ratio 25.0, CBC w Diff NO MAN DIFF REQ, RBC 3.09 L, MCV 86.7, MCH 27.9, MCHC 32.1 L, RDW 16.5 H, MPV 9.7, Gran % 94.2 H, Lymphocytes % 3.4 L, Monocytes % 2.4, Eosinophils % 0, Basophils % 0, Absolute Granulocytes 10.3 H, Absolute Lymphocytes 0.4 L, Absolute Monocytes 0.3, Absolute Eosinophils 0, Absolute Basophils 0 Impression/Plan Impression/Plan Impression/Plan: Impression 67 year old man -CAP, primarily LLL -COPD with exacerbation -acute on chronic hypercarbic respiratory failure -?endoleak/thrombus postsurgical aortic aneurysm Plan -ceftriaxone, zithromax -legionella, strep ag -sputum cx -vascular surgery input noted regarding CT findings -keep solumedrol 40mg iv q12h - taper tomorrow if does well to 40mg prednisone -monitor finger sticks -TRC/Nebs -bipap as needed and nocturnal DVT prophylaxis at all times
[2017-12-27 14:26] VITALS: BP 112/60
--- NOTE | 2017-12-27 18:02 | Discharge Summary ---
Visit Information Visit Dates Admission Date: 12/25/17 Discharge Date: 12/29/17 Hospital Course Course Attending Physician: Matt Garcia MD Primary Care Physician: Prabhakar Aburto DO Hospital Course: Patient is a 67-year-old gentleman with a past medical history significant for chronic respiratory failure due to COPD on 4 L of oxygen at baseline with nocturnal BiPAP, history of type 2 diabetes mellitus, history of hypertension and hyperlipidemia, history of abdominal aortic aneurysm repair, history of A. fib, HFrEF with 30% ejection presented to the ED for the evaluation of worsening shortness of breath with productive cough. Vitals on admission MAXIMUM TEMPERATURE 98.5, with pulse 105, respiratory rate 30,, blood pressure 124/63 on arrival that dropped to 109/82, saturating 81% on 4 L, started on Ventimask 35% Pertinent labs on admission leukocytosis: 18.8 with 90% neutrophil count and bandemia 3,, H&H 11.8/ 36.8, platelet 210, normal LFTs, proBNP 7220, d-dimer 269 AB.31/52/72/26 on 40% Ventimask CTA chest and CT abdomen and pelvis with IV contrast " Showed no evidence of upper airway embolism however showed new patchy airspace opacities in the left lung, most significant in the left lower lobe at the lung base are concerning for infectious versus inflammatory infiltrates. CT was also evident for Postsurgical changes of aortic aneurysmal repair with aortic bicommon iliac stent grafts in place. A hyperdense focus within the distal abdominal aortic aneurysm lumen at the inferior aspect of the aneurysm adjacent to the stent graft may represent an stent endoleak or hyperdense thrombus. Following problems were addressed while patient was on telemetry floor: 1.Acute on chronic respiratory failure due to COPD exacerbation and community- acquired pneumonia: Patient was kept on telemetry floor, received IV Solu-Medrol initially that was transitioned to taper prednisone afterwards. Received IV antibiotics( ceftriaxone and azithromycin for community acquired pneumonia). Patient remained afebrile during the admission,white cell count trended down, blood and sputum cultures remain negative. Nocturnal BiPAP was continued patient was also evaluated by Dr. So during the admission, he was discharged home on taper prednisone and Augmentin. 2.History of abdominal aortic aneurysm status post repair(with a chest CT finding of stent endoleak or hyperdense thrombus): Vessel surgery consult was obtained due to above CT scan findings, as per recommendations patient was monitored closely. Patient remained asymptomatic during the admission, he was discharged home with a follow-up with vascular surgery as an outpatient. 3.History of heart failure with reduced ejection fraction to 30% Patient's blood pressure was initially borderline, however improved. Home medications include Lasix was resumed, Patient was discharged on the same dose of Lasix and advised to follow-up with cardiology as an outpatient. 4. Acute kidney injury : Kidney functions got worse after receiving Lasix, however patient was continued on same dose of Lasix as per cardiology, however creatinine got worse after resuming home dose of Lasix. Patient was evaluated by cardiology, recommended to continue with same dose of Lasix 40 mg twice a day as in the past patient had a history of worsening lower extremity edema on decreasing the dose of Lasix. Patient was advised to follow-up BEP as an outpatient. 5. History of diabetes mellitus Blood sugar levels were controlled NovoLog sliding scale with Accu-Cheks 6.History of TIA Home medications were continued. DVT prophylaxis with xeralto Patient is full code Allergies: Coded Allergies: NO KNOWN ALLERGIES (02/05/16) Disposition Summary Disposition Principal Diagnosis: .Acute on chronic respiratory failure due to COPD exacerbation and community- acquired pneumonia Additional Diagnosis: History of abdominal aortic aneurysm status post repair(with a chest CT finding of stent endoleak or hyperdense thrombus) Discharge Disposition: home or self care Discharge Instructions General Discharge Information Code Status: Full Code Patient's Diet: Heart healthy diet Patient's Activity: As tolerated Follow-Up Instructions/Appts: 1.Please follow-up with a primary care physician within 1 week after discharge 2. please follow-up with your lace finisher within 1-2 as of discharge . 3. please follow-up with vascular surgery as an outpatient Medications at Discharge Discharge Medications: Stop taking the following medications: Prednisone (Prednisone) 20 MG TABLET ORAL DAILY Qty = 21 Continue taking these medications: Rivaroxaban (Xarelto) 20 MG TABLET 1 Tablet ORAL DAILY Instructions: with food Comments: Last Taken: 12/31/16 Time: 8:00 AM Aspirin (Aspirin*) 81 MG TAB.CHEW 1 Tablet ORAL DAILY Comments: Last Taken: 12/31/16 Time: 8:00 am Tiotropium [place] (Spiriva) 18 MCG CAP.W.DEV 1 Capsule Inhale through mouth DAILY Comments: Last Taken: 12/31/17 Time: 0800 Budesonide/Formoterol Fumarate (Symbicort 160-4.5 Mcg Inhaler) 160 MCG-4.5 MCG/ ACTUATION HFA.AER.AD 2 Puff Inhale through mouth TWICE DAILY Comments: Last Taken: 12/31/17 Time: 8:00 am Albuterol Sulfate (Proair Hfa) 90 MCG HFA.AER.AD 2 Puff Inhale through mouth EVERY 4-6 HOURS NEEDED as needed for SHORTNESS OF BREATH Comments: Last Taken: 08/10/17 Time: 12:00 Albuterol Sulfate (Albuterol Sulfate) 2.5 MG/3 ML (0.083 %) VIAL.NEB 1 Vial Inhale Solution EVERY 4 HOURS NEEDED as needed for SHORTNESS OF BREATH Comments: Pantoprazole Sodium (Protonix) 40 MG TABLET.DR 1 Tablet ORAL DAILY Comments: Last Taken: Time:NOT GIVEN IN THE HOSPITAL Atorvastatin Calcium (Lipitor) 10 MG TABLET 1 Tablet ORAL DAILY Comments: Last Taken: 12/30/17 Time: 5:00 pm Metformin HCl (Glucophage) 1,000 MG TABLET 1 Tablet ORAL TWICE DAILY Comments: NOT GIVEN IN HOSPITAL Diltiazem HCl (Cardizem Cd) 240 MG CAP.ER.24H 480 Milligram ORAL DAILY Days = 30 Comments: Last Taken: 12/31/17 Time: 8:00 am Ferrous Sulfate (Ferrous Sulfate) 325 MG TABLET.DR 325 Milligram ORAL TWICE DAILY Days = 30 Comments: Last Taken: 12/31/16 Time: 8:00 AM Furosemide (Lasix) 40 MG TABLET 1 Tablet ORAL TWICE DAILY Days = 30 Comments: Last Taken: 12/31/17 Time: 7:00 AM [ACETAZOLAMIDE ER] 500 MG 1 ORAL DAILY Cyanocobalamin (Vitamin B-12) (B-12) 1,000 MCG TABLET 1 Tablet ORAL DAILY [EQUATE ANTI DIARHEAL] 2 MG 2 ORAL TAKE AT BEDTIME [NATURE MADE IRON] 65 MG TAB 4 Tablet ORAL TAKE AT BEDTIME Start taking the following new medications: Amoxicillin/Potassium Clav (Augmentin 875-125 Tablet) 875 MG-125 MG TABLET 1 Tablet ORAL TWICE DAILY Qty = 4 No Refills Instructions: . Comments: Last Taken: 12/31 Time: 0800 Prednisone (Prednisone) 10 MG TABLET 1 Tablet ORAL SEE INSTRUCTIONS Qty = 18 No Refills Instructions: TAKE 3 TABS X 3 DAYS 2 TABS X 3 DAYS 1 TAB X 3 DAYS THEN STOP.... Comments: TAKE 3 TABS X 3 DAYS 2 TABS X 3 DAYS 1 TAB X 3 DAYS THEN STOP.... Copies To: Prabhakar Aburto DO Attending Review Statement Documenting Attending: Matt Garcia MD Other Findings: Discharged in stable condition
[2017-12-27 22:06] VITALS: BP 116/78
[2017-12-28 06:06] VITALS: BP 118/62
[2017-12-28 08:06] LABS: ABSOLUTE BASOPHIL COUNT 0 /CUMM (0.0-0.2); ABSOLUTE EOSINOPHIL COUNT 0 /CUMM (0.0-0.7); ABSOLUTE GRANULOCYTE CT 11.4 /CUMM (1.4-6.5); ABSOLUTE LYMPH COUNT 0.3 /CUMM (1.2-3.4); ABSOLUTE MONOCYTE COUNT 0.6 /CUMM (0.10-0.60); BASOPHIL % 0 % (0.0-2.0); EOSINOPHIL % 0 % (0-5); GRANULOCYTE % 92.3 % (42.2-75.2); HEMATOCRIT 27.8 % (42-52); MEAN CORPUSCULAR HGB 28.5 PG (27.0-31.0); MEAN CORPUSCULAR VOLUME 86.5 FL (80.0-94.0); MEAN PLATELET VOLUME 9.4 FL (7.4-10.4); PLATELET COUNT 180 /CUMM (130-400); RBC DISTRIBUTION WIDTH 16.6 % (11.5-14.5); RED BLOOD CELL CT 3.21 /CUMM (4.70-6.10); WHITE BLOOD CELL COUNT 12.3 /CUMM (4.8-10.8)
--- NOTE | 2017-12-28 08:40 | PN- Housestaff ---
Magali Byers 12/28/17 0840: Subjective Follow-up For: Acute on chronic respiratory failure due to COPD exacerbation and community- acquired pneumonia. Tele-Events Since Last Visit: gen med Subjective: Patient is seen and examined this morning didn't sleep well overnight due to productive cough, otherwise breathing is better than yesterday. Denies any chest discomfort or palpitations. No nausea or abdominal discomfort. Vitals are stable Review of Systems Constitutional: Denies: chills, diaphoresis, fever, malaise. EENTM: Denies: blurred vision, double vision, visual changes. Cardiovascular: Denies: chest pain, edema, orthopena. Respiratory: Denies: cough, hemoptysis, orthopnea. Gastrointestinal: Denies: abdominal pain, bloating. Genitourinary: Denies: discharge. Objective Last 24 Hrs of Vital Signs/I&O Vital Signs Date Time Temp Pulse Resp B/P B/P Pulse O2 O2 Flow FiO2 Mean Ox Delivery Rate 12/28 0827 97 Nasal 4.0L Cannula 12/28 0606 97.8 82 20 118/62 98 12/27 2206 97.3 78 20 116/78 100 12/27 2138 Nasal 4.0L Cannula 12/27 1558 96 Nasal 4.0L Cannula 12/27 1426 98.3 85 20 112/60 96 Nasal 4.0L Cannula Intake & Output 12/28 1600 12/28 0800 12/28 0000 Intake Total 240 200 Output Total 450 Balance -210 200 Intake, Oral 240 200 Number 1 Bowel Movements Output, Urine 450 Patient 185 lb Weight Weight Bed scale Measurement Method Physical Exam General Appearance: Alert, Oriented X3 Skin: No Rashes HEENT: Atraumatic, PERRLA, EOMI Neck: Supple, No JVD, No thryomegaly Cardiovascular: Regular Rate, Normal S1, Normal S2 Lungs: Clear to Auscultation Abdomen: Normal Bowel Sounds, Soft, No Tenderness Neurological: Normal Gait, Normal Speech, Strength at 5/5 X4 Ext Current Medications: Current Medications Sig/Eve Start time Last Medication Dose Route Stop Time Status Admin Albuterol Sulfate 3 ML EVERY 4 HRS/AWAKE 12/26 1600 AC 12/28 INH 0825 Albuterol Sulfate 3 ML Q4P PRN 12/26 0315 AC INH Amoxicillin/ 875 MG Q12 12/28 1000 AC 12/28 Clavulanate Potassium PO 0942 Aspirin 81 MG DAILY 12/26 1000 AC 12/28 PO 0941 Atorvastatin Calcium 10 MG 1700 12/26 1700 AC 12/27 PO 1718 Azithromycin 250 MG DAILY 12/28 1000 CAN PO Azithromycin 500 MG DAILY 12/26 1000 DC 12/27 Dextrose/Water 250 ML IV 0823 Benzonatate 100 MG TID 12/27 2200 AC 12/28 PO 0941 Budesonide/ 2 PUF BID 12/26 1000 AC 12/28 Formoterol Fumarate INH 0942 Ceftriaxone Sodium 1,000 MG DAILY 12/26 1000 DC 12/27 IV 0823 Cyanocobalamin 1,000 MCG DAILY 12/26 1000 AC 12/28 PO 0941 Diltiazem HCl 480 MG DAILY 12/26 1000 AC 12/28 PO 0941 Ferrous Sulfate 325 MG BID 12/26 1000 AC 12/28 PO 0941 Furosemide 40 MG BID 12/27 2200 AC 12/28 PO 0941 Guaifenesin 10 ML Q4P PRN 12/28 0800 AC 12/28 PO 0801 Insulin Aspart 0 TIDAC 12/28 0800 AC 12/28 SC 0802 Insulin Aspart 0 AT BEDTIME 12/26 2200 AC 12/27 SC 2113 Insulin Aspart 0 TIDAC 12/26 0800 DC 12/27 SC 1718 Methylprednisolone 40 MG DAILY 12/28 1000 CAN IV Methylprednisolone 40 MG Q12 12/26 1000 DC 12/27 IV 0823 Potassium Chloride 40 MEQ ONCE ONE 12/27 1400 DC 12/27 PO 12/27 1401 1718 Prednisone 40 MG DAILY 12/28 1000 AC 12/28 PO 12/30 2300 0942 Rivaroxaban 20 MG DAILY 12/26 1000 AC 12/28 PO 0941 Tiotropium [place] 1 PUF DAILY 12/26 1000 AC 12/28 INH 0942 Last 24 Hrs of Lab/Sridhar Results Last 24 Hrs of Labs/Mics: Laboratory Tests 12/28/17 0633: Anion Gap 12, Estimated GFR 32 L, BUN/Creatinine Ratio 25.7 H, CBC w Diff Pending, WBC Pending, RBC Pending, Hgb Pending, Hct Pending, MCV Pending, MCH Pending, MCHC Pending, RDW Pending, Plt Count Pending, MPV Pending Microbiology 12/28 329 LOWER RESP: Respiratory Culture - RES 12/28 329 LOWER RESP: Gram Stain - RES Assessment/Plan Assessment: Patient is a 67-year-old gentleman with a past medical history significant for chronic respiratory failure due to COPD on 4 L of oxygen at baseline with nocturnal BiPAP, history of type 2 diabetes mellitus, history of hypertension and hyperlipidemia, history of abdominal aortic aneurysm repair, history of A. fib, HFrEF with 30% ejection presented to the ED for the evaluation of worsening shortness of breath with productive cough. Vitals on admission MAXIMUM TEMPERATURE 98.5, with pulse 105, respiratory rate 30,, blood pressure 124/63 on arrival that dropped to 109/82, saturating 81% on 4 L, started on Ventimask 35% Pertinent labs on admission leukocytosis: 18.8 with 90% neutrophil count and bandemia 3,, H&H 11.8/ 36.8, platelet 210, normal LFTs, proBNP 7220, d-dimer 269 AB.31/52/72/26 on 40% Ventimask CTA chest and CT abdomen and pelvis with IV contrast " Showed no evidence of upper airway embolism however showed new patchy airspace opacities in the left lung, most significant in the left lower lobe at the lung base are concerning for infectious versus inflammatory infiltrates. CT was also evident for Postsurgical changes of aortic aneurysmal repair with aortic bicommon iliac stent grafts in place. A hyperdense focus within the distal abdominal aortic aneurysm lumen at the inferior aspect of the aneurysm adjacent to the stent graft may represent an stent endoleak or hyperdense thrombus.. Acute on chronic respiratory failure due to COPD exacerbation and community- acquired pneumonia. History of diabetes mellitus History of heart failure with reduced ejection fraction to 30% History of TIA History of abdominal aortic aneurysm status post repair(with a chest CT finding of stent endoleak or hyperdense thrombus) Plan Acute on chronic respiratory failure due to COPD exacerbation and community- acquired pneumonia. * Continue to monitor patient on telemetry floor * Will DC IV Solu-Medrol and start the patient on taper prednisone. * Discontinue IV antibiotics and start the patient on Augmentin. * Robitussin with codeine as needed for cough * Continue TRC nebs * Continue to follow up with Dr. So recommendations * Nocturnal BiPAP as needed. Acute on chronic blood loss anemia * Monitor H&H and check stool guaiac * Repeat CBCs tomorrow. Acute kidney injury * Creatinine increased from 1.6-2.1 today. * Will hold p.m. dose of Lasix recheck BP tomorrow History of abdominal aortic aneurysm status post repair(with a chest CT finding of stent endoleak or hyperdense thrombus) * Vascular surgery has been involved will follow the recommendations * Closely monitor the blood pressure currently borderline. History of heart failure with reduced ejection fraction to 30% * Continue home medications , blood pressure is stable History of diabetes mellitus * NovoLog sliding scale with Accu-Cheks History of TIA * Continue current medications. DVT prophylaxis with xeralto Patient is full code Problem List: 1. Pneumonia 2. Respiratory failure Pain Ratin Pain Location: No pain at this time Pain Goal: Remain pain free Pain Plan: When necessary Tylenol Tomorrow's Labs & Rationales: Acute blood loss anemia BICYCLE RACER tomorrow Elevated creatinine and repeat BEP tomorrow Matt Garcia MD 12/28/17 0959: Attending MD Review Statement Attending Statement Attending MD Statement: examined this patient, discuss w/resident/PA/SURGERY SPECIALIST, agreed w/resident/PA/SURGERY SPECIALIST, reviewed EMR data (avail), discussed with nursing, discussed with case mgmt, amended to note Attending Assessment/Plan: Patient seen and examined. Reports feeling well this morning. Reports mild productive cough. Oxygen requirement is unchanged. On examination he has good entry bilaterally, lungs are clear to auscultation. His lower extremity edema is unchanged. Blood glucose levels were in the 300s last night. Recommendations: -Patient has been transitioned to oral prednisone and oral antibiotic therapy. Continues complain of productive cough. Continue the Robitussin and Tessalon caps. Mobilize patient today. -Monitor glucose levels with prednisone taper. If glucose levels continue to improve today he may be discharged home tomorrow. -Patient had a drop of his hemoglobin level from 11.8 on December 25 to 8.6 yesterday. Check stool guaiac. Follow-up hemoglobin levels today. Will ensure that hemoglobin level is stable prior to discharge this patient is on anticoagulation therapy. -Creatinine has increased from 1.6-2.1 today. Recommend holding the p.m. dose of Lasix today and repeat his serum chemistry tomorrow.
--- NOTE | 2017-12-28 12:01 | PN- Pulmonary ---
Subjective HPI/Critical Care Issues: Patient seen and examined this morning. Feeling better overall his leg edema has slightly subsided. Objective Current Medications: Current Medications Sig/Eve Start time Last Medication Dose Route Stop Time Status Admin Albuterol Sulfate 3 ML EVERY 4 HRS/AWAKE 12/26 1600 AC 12/28 INH 0825 Albuterol Sulfate 3 ML Q4P PRN 12/26 0315 AC INH Amoxicillin/ 875 MG Q12 12/28 1000 AC 12/28 Clavulanate Potassium PO 0942 Aspirin 81 MG DAILY 12/26 1000 AC 12/28 PO 0941 Atorvastatin Calcium 10 MG 1700 12/26 1700 AC 12/27 PO 1718 Azithromycin 250 MG DAILY 12/28 1000 CAN PO Azithromycin 500 MG DAILY 12/26 1000 DC 12/27 Dextrose/Water 250 ML IV 0823 Benzonatate 100 MG TID 12/27 2200 AC 12/28 PO 0941 Budesonide/ 2 PUF BID 12/26 1000 AC 12/28 Formoterol Fumarate INH 0942 Ceftriaxone Sodium 1,000 MG DAILY 12/26 1000 DC 12/27 IV 0823 Cyanocobalamin 1,000 MCG DAILY 12/26 1000 AC 12/28 PO 0941 Diltiazem HCl 480 MG DAILY 12/26 1000 AC 12/28 PO 0941 Ferrous Sulfate 325 MG BID 12/26 1000 AC 12/28 PO 0941 Furosemide 40 MG BID 12/29 1000 UNVr PO Furosemide 40 MG BID 12/27 2200 DC 12/28 PO 0941 Guaifenesin 10 ML Q4P PRN 12/28 0800 DC 12/28 PO 0801 Guaifenesin/Codeine 10 ML Q6P PRN 12/28 1200 UNVr Phosphate PO Insulin Aspart 0 TIDAC 12/28 0800 AC 12/28 SC 0802 Insulin Aspart 0 AT BEDTIME 12/26 2200 AC 12/27 SC 2113 Insulin Aspart 0 TIDAC 12/26 0800 DC 12/27 SC 1718 Methylprednisolone 40 MG DAILY 12/28 1000 CAN IV Methylprednisolone 40 MG Q12 12/26 1000 DC 12/27 IV 0823 Potassium Chloride 40 MEQ ONCE ONE 12/27 1400 DC 12/27 PO 12/27 1401 1718 Prednisone 40 MG DAILY 12/28 1000 AC 12/28 PO 12/30 2300 0942 Rivaroxaban 20 MG DAILY 12/26 1000 AC 12/28 PO 0941 Tiotropium [place] 1 PUF DAILY 12/26 1000 AC 12/28 INH 0942 Vital Signs & I&O Last 24 Hrs of Vitals and I&O: Vital Signs Date Time Temp Pulse Resp B/P B/P Pulse O2 O2 Flow FiO2 Mean Ox Delivery Rate 12/28 826 97 Nasal 4.0L Cannula 12/28 06 97.8 82 20 118/62 98 12/27 2206 97.3 78 20 116/78 100 12/27 2138 Nasal 4.0L Cannula 12/27 1558 96 Nasal 4.0L Cannula 12/27 1426 98.3 85 20 112/60 96 Nasal 4.0L Cannula Intake & Output 12/28 1600 12/28 0800 12/28 0000 Intake Total 240 200 Output Total 450 Balance -210 200 Intake, Oral 240 200 Number 1 Bowel Movements Output, Urine 450 Patient 185 lb Weight Weight Bed scale Measurement Method Exam Other Physical Findings: Generally - Awake, alert Head and neck - normocephalic, atraumatic, EOMI grossly intact Cardiovascular - S1, S2 Lungs - bilateral rhonchi, diminished bs Abdomen - Bowel sounds positive, soft, non-tender Extremities - leg edmea L>R - chronically Results Last 24 Hrs of Lab Results: Laboratory Tests 12/28/17 0633: Anion Gap 12, Estimated GFR 32 L, BUN/Creatinine Ratio 25.7 H, CBC w Diff NO MAN DIFF REQ, RBC 3.21 L, MCV 86.5, MCH 28.5, MCHC 33.0, RDW 16.6 H, MPV 9.4, Gran % 92.3 H, Lymphocytes % 2.7 L, Monocytes % 5.0, Eosinophils % 0, Basophils % 0, Absolute Granulocytes 11.4 H, Absolute Lymphocytes 0.3 L, Absolute Monocytes 0.6, Absolute Eosinophils 0, Absolute Basophils 0 Impression/Plan Impression/Plan Impression/Plan: Impression 67 year old man -CAP, primarily LLL -COPD with exacerbation -acute on chronic hypercarbic respiratory failure -?endoleak/thrombus postsurgical aortic aneurysm Plan -ceftriaxone, zithromax -legionella, strep ag -sputum cx -vascular surgery input noted regarding CT findings -dc solumedrol, begin prednisone 40mg -monitor finger sticks -TRC/Nebs -bipap as needed and nocturnal DVT prophylaxis at all times
--- NOTE | 2017-12-28 14:32 | Patient Discharge Instructions ---
Discharge Instructions General Discharge Information You were seen/treated for: Acute on chronic respiratory failure due to COPD exacerbation and community- acquired pneumoniA. History of abdominal aortic aneurysm status post repair(with a chest CT finding of stent endoleak or hyperdense thrombus) Special Instructions: 1.Please follow-up with a primary care physician within 1 week after discharge 2. please follow-up with your senior shipping clerk within 1-2 as of discharge . 3. please follow-up with vascular surgery as an outpatient Diet Recommended Diet: Heart Healthy Activity Activity Self Limited: Yes Acute Coronary Syndrome Inclusion Criteria At DC or during hospital stay patient has or had the following: ACS DIAGNOSIS No Discharge Core Measures Meds if any: Prescribed or Continued at Discharge Meds if any: NOT Prescribed or Continued at Discharge Congestive Heart Failure Inclusion Criteria At DC or during hospital stay patient has or had the following: CHF DIAGNOSIS No Discharge Core Measures Meds if any: Prescribed or Continued at Discharge Meds if any: NOT Prescribed or Continued at Discharge Cerebrovascular accident Inclusion Criteria At DC or during hospital stay patient has or had the following: CVA/TIA Diagnosis No Discharge Core Measures Meds if any: Prescribed or Continued at Discharge Meds if any: NOT Prescribed or Continued at Discharge Venous thromboembolism Inclusion Criteria VTE Diagnosis No VTE Type NONE VTE Confirmed by (Test) NONE Discharge Core Measures - Per Current guidelines, there needs to be overlap - treatment for the first 5 days of Warfarin therapy. - If discharged on Warfarin prior to 5 days of - overlap therapy, the patient will need to be - assessed for post discharge needs including - *Post discharge parental anticoagulation - *Warfarin and/or parental anticoagulation education - *Follow up date to check INR post discharge At least 5 days overlap therapy as Inpatient No Meds if any: Prescribed or Continued at Discharge Note: Overlap Therapy is Warfarin and Anticoagulant Meds if any: NOT Prescribed or Continued at Discharge
[2017-12-28] MEDS ORDERED: AUGMENTIN 875-1 EACH PO (14:35)
[2017-12-28] MEDS ORDERED: PREDNISONE10 M2 PO (14:35)
[2017-12-28 14:39] VITALS: BP 112/64
[2017-12-28 22:13] VITALS: BP 120/62
--- NOTE | 2017-12-29 07:31 | PN- Housestaff ---
Maglai Byers 12/29/17 0731: Subjective Follow-up For: Acute on chronic respiratory failure due to COPD exacerbation and community- acquired pneumonia. Tele-Events Since Last Visit: Emely Subjective: Patient is seen and examined this morning, seems much better than yesterday productive cough improved after getting mucinex with codeine. He denies any shortness of breath at his baseline oxygen(4 L). Denies any nausea vomiting abdominal discomfort.Bilateral leg swelling slightly worse than yesterday, creatinine continues to remain elevated(2.1) Review of Systems Constitutional: Denies: chills, diaphoresis, fever. EENTM: Denies: blurred vision, double vision, visual changes. Cardiovascular: Denies: chest pain, edema, orthopena. Respiratory: Denies: cough, orthopnea, short of breath. Objective Last 24 Hrs of Vital Signs/I&O Vital Signs Date Time Temp Pulse Resp B/P B/P Pulse O2 O2 Flow FiO2 Mean Ox Delivery Rate 12/29 1435 99.1 75 20 120/72 92 Nasal 4.0L Cannula 12/29 0829 97 Nasal 4.0L Cannula 12/29 0000 Nasal 4.0L Cannula 12/28 2213 98.3 88 18 120/62 94 12/28 1819 94 Nasal 4.0L Cannula 12/28 1600 98 Nasal 4.0L Cannula 12/28 1439 98.1 81 20 112/64 96 Nasal 4.0L Cannula Intake & Output 12/29 1600 12/29 0800 12/29 0000 Intake Total 100 120 Output Total 300 Balance -200 120 Intake, Oral 100 120 Output, Urine 300 Patient 187 lb Weight Weight Bed scale Measurement Method Physical Exam General Appearance: Alert, Oriented X3 Skin: No Rashes HEENT: Atraumatic, PERRLA, EOMI Neck: Supple, No JVD Cardiovascular: Regular Rate, Normal S1, Normal S2 Lungs: Clear to Auscultation, Normal Air Movement Abdomen: Normal Bowel Sounds, Soft, No Tenderness Neurological: Normal Gait, Normal Speech Assessment/Plan Assessment: Patient is a 67-year-old gentleman with a past medical history significant for chronic respiratory failure due to COPD on 4 L of oxygen at baseline with nocturnal BiPAP, history of type 2 diabetes mellitus, history of hypertension and hyperlipidemia, history of abdominal aortic aneurysm repair, history of A. fib, HFrEF with 30% ejection presented to the ED for the evaluation of worsening shortness of breath with productive cough. Vitals on admission MAXIMUM TEMPERATURE 98.5, with pulse 105, respiratory rate 30,, blood pressure 124/63 on arrival that dropped to 109/82, saturating 81% on 4 L, started on Ventimask 35% Pertinent labs on admission leukocytosis: 18.8 with 90% neutrophil count and bandemia 3,, H&H 11.8/ 36.8, platelet 210, normal LFTs, proBNP 7220, d-dimer 269 AB.31/52/72/26 on 40% Ventimask CTA chest and CT abdomen and pelvis with IV contrast " Showed no evidence of upper airway embolism however showed new patchy airspace opacities in the left lung, most significant in the left lower lobe at the lung base are concerning for infectious versus inflammatory infiltrates. CT was also evident for Postsurgical changes of aortic aneurysmal repair with aortic bicommon iliac stent grafts in place. A hyperdense focus within the distal abdominal aortic aneurysm lumen at the inferior aspect of the aneurysm adjacent to the stent graft may represent an stent endoleak or hyperdense thrombus.. Acute on chronic respiratory failure due to COPD exacerbation and community- acquired pneumonia. History of diabetes mellitus History of heart failure with reduced ejection fraction to 30% History of TIA History of abdominal aortic aneurysm status post repair(with a chest CT finding of stent endoleak or hyperdense thrombus) Plan Acute on chronic respiratory failure due to COPD exacerbation and community- acquired pneumonia. * Continue to monitor patient on telemetry floor. * Breathing is much better patient is at his baseline oxygen 4 L. * Continue with tapered steroid with by mouth antibiotics * Robitussin with codeine as needed for cough * Continue TRC nebs * Continue to follow up with Dr. So recommendations * Nocturnal BiPAP as needed. Acute on chronic blood loss anemia * Monitor H&H and check stool guaiac * Repeat CBCs tomorrow. Acute kidney injury * creatinine continues to remain elevated today 2.1 today. * Patient was assessed by cardiology today and recommended to continue with the same dose of Lasix 40 mg twice a day, and continue to monitor his creatinine. History of abdominal aortic aneurysm status post repair(with a chest CT finding of stent endoleak or hyperdense thrombus) * Vascular surgery has been involved will follow the recommendations * Closely monitor the blood pressure currently borderline. History of heart failure with reduced ejection fraction to 30% * Continue home medications , blood pressure is stable. * Bilateral lower extremities swelling worse today, Patient was assessed by cardiology today and recommended to continue with the same dose of Lasix 40 mg twice a day(as he has a history if he gets low-dose of Lasix his edema gets worse) History of diabetes mellitus * NovoLog sliding scale with Accu-Cheks History of TIA * Continue current medications. DVT prophylaxis with xeralto Patient is full code Problem List: 1. Pneumonia 2. Respiratory failure 3. Atrial fibrillation with rapid ventricular response 4. Lower extremity edema 5. 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 Resting comfortably not in any acute distress. No issues overnight. Reports feeling better this morning. Reports sleeping well through the night. Denies chest pain or shortness of breath. Reports cough present yesterday has improved. On examination he has good entry bilaterally with No added sounds. He has bilateral lower extremity pedal edema 1+. Patient is of the impression that his lower extremity edema has improved. He is also the impression that it improves when his legs and now and he does not want to wear compression stockings. From a respiratory standpoint we are transitioning him to oral steroids and antibiotic therapy to complete the course for committee acquired pneumonia. His creatinine was elevated to 2.1 yesterday from a baseline of 1.6. He is on Lasix 40 twice daily at home yesterday we gave him only 1 dose and his creatinine remains elevated at 2.1 today. We will continue him on Lasix 40 mg once a day today and reevaluate his creatinine tomorrow. At the time of discharge if creatinine is still above baseline it may be prudent to discharge patient home on just once a day dose of Lasix. Patient however is concerned that his leg swelling may worsen. He does have a history of chronic systolic dysfunction. Recommend consultation with his netezza developer service.
[2017-12-29 08:09] LABS: ABSOLUTE BASOPHIL COUNT 0 /CUMM (0.0-0.2); ABSOLUTE EOSINOPHIL COUNT 0 /CUMM (0.0-0.7); ABSOLUTE LYMPH COUNT 0.4 /CUMM (1.2-3.4); ABSOLUTE MONOCYTE COUNT 0.7 /CUMM (0.10-0.60); BASOPHIL % 0 % (0.0-2.0); EOSINOPHIL % 0 % (0-5); GRANULOCYTE % 90.8 % (42.2-75.2); HEMATOCRIT 28.7 % (42-52); MEAN CORPUSCULAR HGB 27.9 PG (27.0-31.0); MEAN CORPUSCULAR HGB CONC 31.9 G/DL (33.0-37.0); MEAN CORPUSCULAR VOLUME 87.6 FL (80.0-94.0); MEAN PLATELET VOLUME 8.8 FL (7.4-10.4); PLATELET COUNT 198 /CUMM (130-400); RBC DISTRIBUTION WIDTH 16.4 % (11.5-14.5); RED BLOOD CELL CT 3.28 /CUMM (4.70-6.10); WHITE BLOOD CELL COUNT 12.1 /CUMM (4.8-10.8)
[2017-12-29] MEDS ORDERED: AUGMENTIN 875-1 EACH PO (09:42)
[2017-12-29] MEDS ORDERED: PREDNISONE10 M2 PO (09:42)
--- NOTE | 2017-12-29 12:29 | PN- Pulmonary ---
Subjective HPI/Critical Care Issues: Patient seen and examined. He appears to be doing much better today. Objective Current Medications: Current Medications Sig/Eve Start time Last Medication Dose Route Stop Time Status Admin Albuterol Sulfate 3 ML EVERY 4 HRS/AWAKE 12/26 1600 AC 12/29 INH 1137 Albuterol Sulfate 3 ML Q4P PRN 12/26 0315 AC INH Amoxicillin/ 875 MG Q12 12/28 1000 AC 12/29 Clavulanate Potassium PO 1113 Aspirin 81 MG DAILY 12/26 1000 AC 12/29 PO 1113 Atorvastatin Calcium 10 MG 1700 12/26 1700 AC 12/28 PO 1746 Benzonatate 100 MG TID 12/27 2200 AC 12/29 PO 1113 Budesonide/ 2 PUF BID 12/26 1000 AC 12/29 Formoterol Fumarate INH 1113 Cyanocobalamin 1,000 MCG DAILY 12/26 1000 AC 12/29 PO 1112 Diltiazem HCl 480 MG DAILY 12/26 1000 AC 12/29 PO 1112 Ferrous Sulfate 325 MG BID 12/26 1000 AC 12/29 PO 1113 Furosemide 40 MG BID 12/29 1000 AC 12/29 PO 1113 Guaifenesin/Codeine 10 ML Q6P PRN 12/28 1200 AC 12/28 Phosphate PO 1251 Insulin Aspart 0 TIDAC 12/28 08 AC 12/29 SC 0839 Insulin Aspart 0 AT BEDTIME 12/26 2200 AC 12/28 SC 2106 Prednisone 40 MG DAILY 12/28 1000 AC 12/29 PO 12/30 2300 1113 Rivaroxaban 20 MG DAILY 12/26 1000 AC 12/29 PO 1112 Tiotropium [place] 1 PUF DAILY 12/26 1000 AC 12/29 INH 1113 Vital Signs & I&O Last 24 Hrs of Vitals and I&O: Vital Signs Date Time Temp Pulse Resp B/P B/P Pulse O2 O2 Flow FiO2 Mean Ox Delivery Rate 12/29 828 97 Nasal 4.0L Cannula 12/29 0000 Nasal 4.0L Cannula 12/28 2212 98.3 88 18 120/62 94 12/28 1819 94 Nasal 4.0L Cannula 12/28 1600 98 Nasal 4.0L Cannula 12/28 1439 98.1 81 20 112/64 96 Nasal 4.0L Cannula Intake & Output 12/29 1600 12/29 0800 12/29 0000 Intake Total 100 120 Output Total 300 Balance -200 120 Intake, Oral 100 120 Output, Urine 300 Patient 187 lb Weight Weight Bed scale Measurement Method Exam Other Physical Findings: Generally - Awake, alert Head and neck - normocephalic, atraumatic, EOMI grossly intact Cardiovascular - S1, S2 Lungs - bilateral rhonchi, diminished bs Abdomen - Bowel sounds positive, soft, non-tender Extremities - leg edema Results Last 24 Hrs of Lab Results: Laboratory Tests 12/29/17 0728: Anion Gap 11, Estimated GFR 32 L, BUN/Creatinine Ratio 26.2 H, CBC w Diff NO MAN DIFF REQ, RBC 3.28 L, MCV 87.6, MCH 27.9, MCHC 31.9 L, RDW 16.4 H, MPV 8.8, Gran % 90.8 H, Lymphocytes % 3.4 L, Monocytes % 5.8, Eosinophils % 0, Basophils % 0, Absolute Granulocytes 11.0 H, Absolute Lymphocytes 0.4 L, Absolute Monocytes 0.7 H, Absolute Eosinophils 0, Absolute Basophils 0 Impression/Plan Impression/Plan Impression/Plan: Impression 67 year old man -CAP, primarily LLL -COPD with exacerbation -acute on chronic hypercarbic respiratory failure -?endoleak/thrombus postsurgical aortic aneurysm Plan -ceftriaxone, zithromax -legionella, strep ag -sputum cx -vascular surgery input noted regarding CT findings -perednisone taper every 2 days -monitor finger sticks -TRC/Nebs -bipap as needed and nocturnal DVT prophylaxis at all times
--- NOTE | 2017-12-29 14:23 | Cons- Cardiology ---
General Information and HPI Consulting Request Date of Consult: 12/29/17 Requested By: Jose CR,Matt Reason for Consult: Increasing edema in a patient with end-stage COPD and reduced ejection fraction. Source of Information: patient, old records Exam Limitations: no limitations History of Present Illness: Mr. Courtney Vieira is a 67-year-old man with end-stage COPD and pulmonary hypertension and chronic atrial fibrillation. He is oxygen dependent at home on high level oxygen. He has been hospitalized several times for exacerbation of COPD. He came in on December 25 complaining of shortness of breath and coughing and was found to have exacerbation of COPD and probable left-sided pneumonia. His BUN was 23 and creatinine 1.5 on admission and now his BUN is 55 and creatinine 2.1. He has been continued on his home dose of Lasix, which is 40 mg twice daily. On his last admission his echocardiogram showed reduced LV systolic function with ejection fraction in the 35% range. This was lower than his previous ejection fractions. On his current admission his BNP was 7220. In July on his admission where he had some degree of CHF his BNP was over 10, 000. His Lasix was apparently held for a day because of the rising BUN and creatinine but he has developed increasing edema. He states is breathing is coming back to normal for him. Allergies/Medications Allergies: Coded Allergies: NO KNOWN ALLERGIES (02/05/16) Home Med List: [ACETAZOLAMIDE ER] 500 MG 1 PO DAILY DIRECTED (Reported) Albuterol Sulfate (Proair Hfa) 90 MCG HFA.AER.AD 2 PUF INH Q4-6 PRN PRN SHORTNESS OF BREATH (Reported) Albuterol Sulfate 2.5 MG/3 ML (0.083 %) VIAL.NEB 1 Vial INH/ABILIO Q4P PRN SHORTNESS OF BREATH (Reported) Amoxicillin/Potassium Clav (Augmentin 875-125 Tablet) 875 MG-125 MG TABLET 1 TAB PO BID PNEUNMONIA Aspirin (Aspirin*) 81 MG TAB.CHEW 1 TAB PO DAILY HEART HEALTH (Reported) Atorvastatin Calcium (Lipitor) 10 MG TABLET 1 TAB PO DAILY CHOLESTEROL ( Reported) Budesonide/Formoterol Fumarate (Symbicort 160-4.5 Mcg Inhaler) 160 MCG-4.5 MCG/ ACTUATION HFA.AER.AD 2 PUF INH BID SHORTNESS OF BREATH (Reported) Cyanocobalamin (Vitamin B-12) (B-12) 1,000 MCG TABLET 1 TAB PO DAILY VITAMIN SUPPORT (Reported) Diltiazem HCl (Cardizem Cd) 240 MG CAP.ER.24H 480 MG PO DAILY Atrial fibrillation [EQUATE ANTI DIARHEAL] 2 MG 2 PO QHS DIARRHEA (Reported) Ferrous Sulfate 325 MG TABLET. 325 MG PO BID Iron supplement Furosemide (Lasix) 40 MG TABLET 1 TAB PO BID Water pill Metformin HCl (Glucophage) 1,000 MG TABLET 1 TAB PO BID DIABETES (Reported) [NATURE MADE IRON] 65 MG TAB 4 TAB PO QHS BLOOD HEALTH (Reported) Pantoprazole Sodium (Protonix) 40 MG TABLET. 1 TAB PO DAILY ACID REFLUX ( Reported) Prednisone 20 MG TABLET 10 MG PO DAILY COPD please take 4 tab(40 mg) on 08/11/17 please take 3 tab(30 mg) on the 08/11-08/14 please take 2 tab(20 mg) on 08/15-08/17 please take 1 tab (10 mg) on 08-18-08/20 Prednisone 10 MG TABLET 1 TAB PO SEE ADMIN CRITERIA COPD TAKE 3 TABS X 3 DAYS 2 TABS X 3 DAYS 1 TAB X 3 DAYS THEN STOP..... Rivaroxaban (Xarelto) 20 MG TABLET 1 TAB PO DAILY BLOOD THINNER (Reported) with food Tiotropium [place] (Spiriva) 18 MCG CAP.W.DEV 1 CAP INH DAILY SHORTNESS OF BREATH (Reported) Current Medications: Current Medications Sig/Eve Start time Last Medication Dose Route Stop Time Status Admin Albuterol Sulfate 3 ML EVERY 4 HRS/AWAKE 12/26 1600 AC 12/29 INH 1137 Albuterol Sulfate 3 ML Q4P PRN 12/26 0315 AC INH Amoxicillin/ 875 MG Q12 12/28 1000 AC 12/29 Clavulanate Potassium PO 1113 Aspirin 81 MG DAILY 12/26 1000 AC 12/29 PO 1113 Atorvastatin Calcium 10 MG 1700 12/26 1700 AC 12/28 PO 1746 Benzonatate 100 MG TID 12/27 2200 AC 12/29 PO 1113 Budesonide/ 2 PUF BID 12/26 1000 AC 12/29 Formoterol Fumarate INH 1113 Cyanocobalamin 1,000 MCG DAILY 12/26 1000 AC 12/29 PO 1112 Diltiazem HCl 480 MG DAILY 12/26 1000 AC 12/29 PO 1112 Ferrous Sulfate 325 MG BID 12/26 1000 AC 12/29 PO 1113 Furosemide 40 MG BID 12/29 1000 AC 12/29 PO 1113 Guaifenesin/Codeine 10 ML Q6P PRN 12/28 1200 AC 12/28 Phosphate PO 1251 Insulin Aspart 0 TIDAC 12/28 0800 AC 12/29 SC 1229 Insulin Aspart 0 AT BEDTIME 12/26 2200 AC 12/28 SC 2106 Prednisone 40 MG DAILY 12/28 1000 AC 12/29 PO 12/30 2300 1113 Rivaroxaban 20 MG DAILY 12/26 1000 AC 12/29 PO 1112 Tiotropium [place] 1 PUF DAILY 12/26 1000 AC 12/29 INH 1113 Review of Systems Review of Systems: He is complaining of dry eyes and blurriness of his vision. Past History Travel History Traveled to [place] past 21 day No Medical History Blood Transfusion Hx: Yes Neurological: TIA EENT: cataracts Cardiovascular: AFIB, CHF, hypertension, hyperlipidemia Respiratory: COPD, 4L O2 DEPENDENT BIPAP AT NIGHT Gastrointestinal: GERD, ABD ANEURYSM Hepatic: NONE Renal: NONE Musculoskeletal: NONE Psychiatric: NONE Endocrine: DIABETE Blood Disorders: NONE Cancer(s): prostate cancer ANTHROPOLOGICAL LINGUIST/Reproductive: NONE Surgical History Surgical History: cataract removal, PROSTATE SURGERY AAA REPAIR TONSILLECTOMY Family History Relations & Conditions If Any: MOTHER, ; Cause: COPD (chronic obstructive pulmonary disease). FATHER, ; Cause: Myocardial infarct. SISTER, ; Cause: Myocardial infarct. Psychosocial History Where Do You Live? Home Who Do You Live With? self Services at Home: None Primary Language: Croatian Smoking Status: Former Smoker (Quit 40 years ago) ETOH Use: denies use Illicit Drug Use: denies illicit drug use Functional Ability ADLs Independent: dressing, eating, toileting, bathing. Ambulation: independent IADLs Independent: shopping, housework, finances, food prep, telephone, transportation , medication admin. Exam & Diagnostic Data Vital Signs and I&O Vital Signs Date Time Temp Pulse Resp B/P B/P Pulse O2 O2 Flow FiO2 Mean Ox Delivery Rate 12/29 828 97 Nasal 4.0L Cannula 12/29 0000 Nasal 4.0L Cannula 12/28 2212 98.3 88 18 120/62 94 12/28 1819 94 Nasal 4.0L Cannula 12/28 1600 98 Nasal 4.0L Cannula 12/28 1439 98.1 81 20 112/64 96 Nasal 4.0L Cannula Intake & Output 12/29 0000 12/28 0000 Intake Total 100 120 500 240 200 Output Total 300 850 450 Balance -200 120 -350 -210 200 Intake, Oral 100 120 500 240 200 Number 1 1 Bowel Movements Output, Urine 300 850 450 Patient 187 lb 185 lb Weight Weight Bed scale Bed scale Measurement Method Physical Exam: Chronically ill-appearing middle-aged man mildly short of breath but basically at his baseline HEENT exam normal Chest markedly decreased breath sounds and a few scattered rhonchi Heart irregular rhythm, normal rate, no murmurs Abdomen benign Extremities 2-3+ edema of the lower legs and feet Labs/Sridhar Results: Laboratory Tests 12/29 12/28 0728 0633 Chemistry Sodium (137 - 145 mmol/L) 142 138 Potassium (3.5 - 5.1 mmol/L) 5.0 4.3 Chloride (98 - 107 mmol/L) 100 98 Carbon Dioxide (22 - 30 mmol/L) 31 H 28 Anion Gap (5 - 16) 11 12 BUN (9 - 20 mg/dL) 55 H 54 H Creatinine (0.7 - 1.2 mg/dL) 2.1 H 2.1 H Estimated GFR (>60 ml/min) 32 L 32 L BUN/Creatinine Ratio (7 - 25 %) 26.2 H 25.7 H Hematology CBC w Diff NO MAN DIFF REQ NO MAN DIFF REQ WBC (4.8 - 10.8 /CUMM) 12.1 H 12.3 H RBC (4.70 - 6.10 /CUMM) 3.28 L 3.21 L Hgb (14.0 - 18.0 G/DL) 9.1 L 9.2 L Hct (42 - 52 %) 28.7 L 27.8 L MCV (80.0 - 94.0 FL) 87.6 86.5 MCH (27.0 - 31.0 PG) 27.9 28.5 MCHC (33.0 - 37.0 G/DL) 31.9 L 33.0 RDW (11.5 - 14.5 %) 16.4 H 16.6 H Plt Count (130 - 400 /CUMM) 198 180 MPV (7.4 - 10.4 FL) 8.8 9.4 Gran % (42.2 - 75.2 %) 90.8 H 92.3 H Lymphocytes % (20.5 - 51.1 %) 3.4 L 2.7 L Monocytes % (1.7 - 9.3 %) 5.8 5.0 Eosinophils % (0 - 5 %) 0 0 Basophils % (0.0 - 2.0 %) 0 0 Absolute Granulocytes (1.4 - 6.5 /CUMM) 11.0 H 11.4 H Absolute Lymphocytes (1.2 - 3.4 /CUMM) 0.4 L 0.3 L Absolute Monocytes (0.10 - 0.60 /CUMM) 0.7 H 0.6 Absolute Eosinophils (0.0 - 0.7 /CUMM) 0 0 Absolute Basophils (0.0 - 0.2 /CUMM) 0 0 Diagnostic Data EKG Results EKG on admission showed atrial fibrillation rate 94 left axis deviation, left bundle branch block pattern and occasional PVC versus aberrantly conducted beat. CXR Results PATIENT: COURTNEY VIEIRA PRESENT AGE: 67 PATIENT ACCOUNT NO: [id number] : 49 LOCATION: [facility] ORDERING PHYSICIAN: Greg ALARCON SERVICE DATE: 12/25/17 EXAM TYPE: RAD - XRY-PORTABLE CHEST XRAY EXAMINATION: XR PORTABLE CHEST CLINICAL INFORMATION: Cough COMPARISON: Multiple previous chest x-rays with the most recent chest x-ray dated 08/09/2017. CT chest of 05/01/2017. TECHNIQUE: Portable frontal view of the chest was obtained. FINDINGS: The cardiomediastinal silhouette is stable with cardiomegaly. Patchy airspace opacities are noted in the left mid lung laterally, which are new compared to previous chest x-ray of 08/09/2017 and are concerning for infectious infiltrates. Hyperlucency in the right lower lung field is again noted consistent with emphysematous and bullous changes seen on the chest CT. Stable blunting of the right lateral costophrenic sulcus representing pleural thickening/pleural fat. No evidence of significant pleural effusions, pulmonary edema or pneumothorax. No acute osseous abnormality. IMPRESSION: New airspace opacities in the left mid lung are concerning for infectious/inflammatory infiltrates. DICTATED BY: Nael Davalos MD DATE/TIME DICTATED:12/25/172006 EVENT MARKETING REPRESENTATIVE:LINDY DATE/TIME TRANSCRIBED:12/25/172006 CONFIDENTIAL, DO NOT COPY WITHOUT APPROPRIATE AUTHORIZATION. <Electronically signed in Other Vendor System> SIGNED BY: Nael Davalos MD 12/25/172013 Assessment/Plan Assessment/Plan Mr. Vieira is a 67-year-old man with end-stage COPD. He presented with pneumonia. He is improving from this. His BUN and creatinine have risen since he has been in the hospital although he has been maintained on his same outpatient dose of Lasix. He still has edema. Actually the amount of edema he has at the current time is about the same as he usually has in the office. He is refusing to wear compressive stockings at home because they cause numbness and tingling of his feet. I would recommend keeping him on the same dose of Lasix. If he takes less he develops much worse edema. His BUN and creatinine are similar to yesterday and hopefully they will not rise any further. I think it is safe to discharge him at this level and we can we can monitor this as an outpatient. Some of his renal deterioration may be due to steroids which are being tapered. Copies To: Prabhakar Aburto DO Consult Acknowledgment - Thank you for your consult request.
[2017-12-29 14:35] VITALS: BP 120/72
[2017-12-29 22:30] VITALS: BP 120/70
[2017-12-30 06:35] VITALS: BP 98/62
[2017-12-30 08:25] LABS: ABSOLUTE BASOPHIL COUNT 0 /CUMM (0.0-0.2); ABSOLUTE EOSINOPHIL COUNT 0 /CUMM (0.0-0.7); ABSOLUTE GRANULOCYTE CT 8.9 /CUMM (1.4-6.5); ABSOLUTE LYMPH COUNT 0.7 /CUMM (1.2-3.4); ABSOLUTE MONOCYTE COUNT 0.7 /CUMM (0.10-0.60); BASOPHIL % 0 % (0.0-2.0); EOSINOPHIL % 0.1 % (0-5); HEMATOCRIT 28.3 % (42-52); MEAN CORPUSCULAR HGB CONC 31.9 G/DL (33.0-37.0); MEAN CORPUSCULAR VOLUME 87.7 FL (80.0-94.0); MEAN PLATELET VOLUME 8.5 FL (7.4-10.4); PLATELET COUNT 205 /CUMM (130-400); RBC DISTRIBUTION WIDTH 16.5 % (11.5-14.5); RED BLOOD CELL CT 3.23 /CUMM (4.70-6.10); WHITE BLOOD CELL COUNT 10.3 /CUMM (4.8-10.8)
--- NOTE | 2017-12-30 09:09 | PN- Housestaff ---
See Addendum Subjective Follow-up For: COPD exacerbation, pneumonia Lower extremity edema Subjective: Patient was seen and examined today. Patient states that this morning he had accidentally removed his oxygen and started feeling short of breath and dizzy. Patient notes that this afternoon he feels much better. Patient states his lower extremity swelling has improved from the previous day. Patient has been coughing up some blood-tinged sputum however patient has been drinking Coca-Cola and believes it may be from that. Patient denies any fever, chills, nausea/ vomiting, diarrhea/constipation. Review of Systems Constitutional: Reports: no symptoms. Cardiovascular: Reports: peripheral edema. Respiratory: Reports: cough, hemoptysis, short of breath. Gastrointestinal: Reports: no symptoms. Genitourinary: Reports: no symptoms. Musculoskeletal: Reports: no symptoms. Objective Last 24 Hrs of Vital Signs/I&O Vital Signs Date Time Temp Pulse Resp B/P B/P Pulse O2 O2 Flow FiO2 Mean Ox Delivery Rate 12/30 1530 Nasal 4.0L Cannula 12/30 1442 98.1 75 20 100/70 95 12/30 0841 94 Nasal 4.0L Cannula 12/30 0800 96 Nasal 4.0L Cannula 12/30 0635 97.8 77 18 98/62 97 Nasal Cannula 12/30 0000 Nasal 4.0L Cannula 12/29 2230 98.4 78 20 120/70 96 Nasal 3.0L Cannula Intake & Output 12/30 1600 12/30 0800 12/30 0000 Intake Total 1520 120 120 Output Total 500 800 Balance 1520 -380 -680 Intake, IV 20 Intake, Oral 1500 120 120 Output, Urine 500 800 Patient 182 lb Weight Physical Exam General Appearance: Alert, Oriented X3, Cooperative Skin Temp/Moisture Exam: Warm/Dry HEENT: Atraumatic, PERRLA, EOMI, Mucous Membr. moist/pink Cardiovascular: Normal S1, Normal S2 Lungs: Clear to Auscultation, Normal Air Movement Abdomen: Normal Bowel Sounds, Soft, No Tenderness Extremities: 1-2+ lower extremity edema bilaterally Current Medications: Current Medications Sig/Eve Start time Last Medication Dose Route Stop Time Status Admin Albuterol Sulfate 3 ML EVERY 4 HRS/AWAKE 12/26 1600 AC 12/30 INH 1140 Albuterol Sulfate 3 ML Q4P PRN 12/26 0315 AC INH Amoxicillin/ 875 MG Q12 12/28 1000 AC 12/30 Clavulanate Potassium PO 0830 Artificial Tears 2 GTT 4 TIMES/DAY 12/30 1800 AC OPH Aspirin 81 MG DAILY 12/26 1000 AC 12/30 PO 0830 Atorvastatin Calcium 10 MG 1700 12/26 1700 AC 12/29 PO 1738 Benzonatate 100 MG TID 12/27 2200 AC 12/30 PO 0830 Budesonide/ 2 PUF BID 12/26 1000 AC 12/30 Formoterol Fumarate INH 0828 Cyanocobalamin 1,000 MCG DAILY 12/26 1000 AC 12/30 PO 0830 Diltiazem HCl 480 MG DAILY 12/26 1000 AC 12/30 PO 0830 Ferrous Sulfate 325 MG BID 12/26 1000 AC 12/30 PO 0830 Furosemide 40 MG 0730,1630 12/29 1630 AC 12/30 IV 0831 Glycerin 2 SPRAY Q2P PRN 12/30 1630 AC PO Guaifenesin/Codeine 10 ML Q6P PRN 12/28 1200 AC 12/29 Phosphate PO 2132 Insulin Aspart 0 TIDAC 12/28 0800 AC 12/30 SC 1144 Insulin Aspart 0 AT BEDTIME 12/26 2200 AC 12/29 SC 2129 Prednisone 40 MG DAILY 12/28 1000 AC 12/30 PO 12/30 2300 0830 Rivaroxaban 20 MG DAILY 12/26 1000 AC 12/30 PO 0829 Tiotropium [place] 1 PUF DAILY 12/26 1000 AC 12/30 INH 0829 Last 24 Hrs of Lab/Sridhar Results Last 24 Hrs of Labs/Mics: Laboratory Tests 12/30/17 0725: Anion Gap 10, Estimated GFR 43 L, BUN/Creatinine Ratio 28.1 H, CBC w Diff NO MAN DIFF REQ, RBC 3.23 L, MCV 87.7, MCH 28.0, MCHC 31.9 L, RDW 16.5 H, MPV 8.5, Gran % 86.2 H, Lymphocytes % 6.6 L, Monocytes % 7.1, Eosinophils % 0.1, Basophils % 0, Absolute Granulocytes 8.9 H, Absolute Lymphocytes 0.7 L, Absolute Monocytes 0.7 H, Absolute Eosinophils 0, Absolute Basophils 0 Assessment/Plan Assessment: Patient is a 67-year-old gentleman with a past medical history significant for chronic respiratory failure due to COPD on 4 L of oxygen at baseline with nocturnal BiPAP, history of type 2 diabetes mellitus, history of hypertension and hyperlipidemia, history of abdominal aortic aneurysm repair, history of A. fib, HFrEF with 30% ejection presented to the ED for the evaluation of worsening shortness of breath with productive cough. Vitals on admission MAXIMUM TEMPERATURE 98.5, with pulse 105, respiratory rate 30,, blood pressure 124/63 on arrival that dropped to 109/82, saturating 81% on 4 L, started on Ventimask 35% Pertinent labs on admission leukocytosis: 18.8 with 90% neutrophil count and bandemia 3,, H&H 11.8/ 36.8, platelet 210, normal LFTs, proBNP 7220, d-dimer 269 AB.31/52/72/26 on 40% Ventimask CTA chest and CT abdomen and pelvis with IV contrast " Showed no evidence of upper airway embolism however showed new patchy airspace opacities in the left lung, most significant in the left lower lobe at the lung base are concerning for infectious versus inflammatory infiltrates. CT was also evident for Postsurgical changes of aortic aneurysmal repair with aortic bicommon iliac stent grafts in place. A hyperdense focus within the distal abdominal aortic aneurysm lumen at the inferior aspect of the aneurysm adjacent to the stent graft may represent an stent endoleak or hyperdense thrombus.. Acute on chronic respiratory failure due to COPD exacerbation and community- acquired pneumonia. History of diabetes mellitus History of heart failure with reduced ejection fraction to 30% History of TIA History of abdominal aortic aneurysm status post repair(with a chest CT finding of stent endoleak or hyperdense thrombus) Plan Acute on chronic respiratory failure due to COPD exacerbation and community- acquired pneumonia. * Continue to monitor patient on telemetry floor. * Breathing is much better patient is at his baseline oxygen 4 L. * Continue with tapered steroid with by mouth antibiotics * Robitussin with codeine as needed for cough * Continue TRC nebs * Continue to follow up with Dr. So recommendations * Nocturnal BiPAP as needed. Acute on chronic blood loss anemia * Monitor H&H and check stool guaiac * Repeat CBCs tomorrow. Acute kidney injury * creatinine continues to remain elevated today 2.1 today. * Patient was assessed by cardiology today and recommended to continue with the same dose of Lasix 40 mg twice a day, and continue to monitor his creatinine. History of abdominal aortic aneurysm status post repair(with a chest CT finding of stent endoleak or hyperdense thrombus) * Vascular surgery has been involved will follow the recommendations * Closely monitor the blood pressure currently borderline. History of heart failure with reduced ejection fraction to 30% * Continue home medications , blood pressure is stable. * Bilateral lower extremity swelling has improved today. However patient continues to require IV Lasix. Patient's creatinine has come down to baseline. Patient will receive IV Lasix today and will be transitioned and discharged on p.o. Lasix. History of diabetes mellitus * NovoLog sliding scale with Accu-Cheks History of TIA * Continue current medications. DVT prophylaxis with xeralto Patient is full code Problem List: 1. Respiratory failure 2. Pneumonia 3. Lower extremity edema Pain Ratin Pain Location: None Pain Goal: Remain pain free Pain Plan: Tylenol as needed Tomorrow's Labs & Rationales: BEP on Lasix
[2017-12-30 10:02] LABS: GRANULOCYTE % 86.2 % (42.2-75.2)
--- NOTE | 2017-12-30 10:31 | PN- Pulmonary ---
Subjective HPI/Critical Care Issues: Patient feels less short of breath. He had an episode of coughing up what appears to be old blood. Reports having had epistaxis in the recent past and remains anticoagulated. Objective Current Medications: Current Medications Sig/Eve Start time Last Medication Dose Route Stop Time Status Admin Albuterol Sulfate 3 ML EVERY 4 HRS/AWAKE / 1600 AC 12/30 INH 0839 Albuterol Sulfate 3 ML Q4P PRN 12/26 0315 AC INH Amoxicillin/ 875 MG Q12 12/28 1000 AC 12/30 Clavulanate Potassium PO 0830 Aspirin 81 MG DAILY 12/26 1000 AC 12/30 PO 0830 Atorvastatin Calcium 10 MG 1700 12/26 1700 AC 12/29 PO 1738 Benzonatate 100 MG TID 12/27 2200 AC 12/30 PO 0830 Budesonide/ 2 PUF BID 12/26 1000 AC 12/30 Formoterol Fumarate INH 0828 Cyanocobalamin 1,000 MCG DAILY 12/26 1000 AC 12/30 PO 0830 Diltiazem HCl 480 MG DAILY 12/26 1000 AC 12/30 PO 0830 Ferrous Sulfate 325 MG BID 12/26 1000 AC 12/30 PO 0830 Furosemide 40 MG DAILY 12/30 1000 CAN PO Furosemide 40 MG 0730,1630 12/29 1630 AC 12/30 IV 0831 Furosemide 40 MG BID 12/29 1000 DC 12/29 PO 1113 Guaifenesin/Codeine 10 ML Q6P PRN 12/28 1200 AC 12/29 Phosphate PO 2132 Insulin Aspart 0 TIDAC 12/28 0800 AC 12/30 SC 0831 Insulin Aspart 0 AT BEDTIME 12/26 2200 AC 12/29 SC 2129 Prednisone 40 MG DAILY 12/28 1000 AC 12/30 PO 12/30 2300 0830 Rivaroxaban 20 MG DAILY 12/26 1000 AC 12/30 PO 0829 Tiotropium [place] 1 PUF DAILY 12/26 1000 AC 12/30 INH 0829 Vital Signs & I&O Last 24 Hrs of Vitals and I&O: Vital Signs Date Time Temp Pulse Resp B/P B/P Pulse O2 O2 Flow FiO2 Mean Ox Delivery Rate 12/30 0841 94 Nasal 4.0L Cannula 12/30 0800 96 Nasal 4.0L Cannula 12/30 0635 97.8 77 18 98/62 97 Nasal Cannula 12/30 0000 Nasal 4.0L Cannula 12/29 2230 98.4 78 20 120/70 96 Nasal 3.0L Cannula 12/29 1600 Nasal 4.0L Cannula 12/29 1600 96 Nasal 4.0L Cannula 12/29 1435 99.1 75 20 120/72 92 Nasal 4.0L Cannula Intake & Output 12/30 1600 12/30 0800 12/30 0000 Intake Total 120 120 Output Total 500 800 Balance -380 -680 Intake, Oral 120 120 Output, Urine 500 800 Patient 182 lb Weight Oxygen saturation 4 L 94% exam of his chest shows decreased breath sounds cardiac exam shows regular S1 and S2 extremities continue to show symmetrical edema Impression/Plan Impression/Plan Impression/Plan: 67-year-old gentleman admitted with exacerbation of COPD chronic hypercapnic respiratory failure and pneumonia was clinically improved. Recommendations: Complete course of antibiotics. Vascular evaluation for abdominal aortic aneurysm findings. Follow-up cardiology recommendation. Taper FiO2 his saturations allow
[2017-12-30 14:42] VITALS: BP 100/70
--- NOTE | 2017-12-30 20:51 | PN- Cardiology ---
Subjective Subjective: Breathing improved, less cough, but increased lower extremity edema secondary to not receiving full diuretic dosage due to borderline blood pressure. Objective Vital Signs and I&Os Vital Signs Date Time Temp Pulse Resp B/P B/P Pulse O2 O2 Flow FiO2 Mean Ox Delivery Rate 12/30 1650 94 Nasal 4.0L Cannula 12/30 1530 Nasal 4.0L Cannula 12/30 1442 98.1 75 20 100/70 95 12/30 0841 94 Nasal 4.0L Cannula 12/30 0800 96 Nasal 4.0L Cannula 12/30 0635 97.8 77 18 98/62 97 Nasal Cannula 12/30 0000 Nasal 4.0L Cannula 12/29 2230 98.4 78 20 120/70 96 Nasal 3.0L Cannula Intake & Output 12/30 1600 12/30 0800 12/30 0000 12/29 1600 12/29 0800 12/29 0000 Intake Total 1520 120 120 100 120 Output Total 500 800 600 300 Balance 1520 -380 -680 -600 -200 120 Intake, IV 20 Intake, Oral 1500 120 120 100 120 Output, Urine 500 800 600 300 Patient 182 lb 187 lb Weight Weight Bed scale Measurement Method Physical Exam: Chronically ill-appearing male in no acute distress with nasal oxygen in place. Excellent Vital signs: See above. Neck: No JVD, no bruits. Lungs: decreased breath sounds and a few scattered rhonchi Heart: S1, S2 (irregular, irregular). Abdomen: Soft, nontender, positive bowel sounds. Extremities: 2+ bilateral lower extremity edema. Current Medications: Current Medications Sig/Eve Start time Last Medication Dose Route Stop Time Status Admin Albuterol Sulfate 3 ML EVERY 4 HRS/AWAKE 12/26 1600 AC 12/30 INH 1650 Albuterol Sulfate 3 ML Q4P PRN 12/26 0315 AC INH Amoxicillin/ 875 MG Q12 12/28 1000 AC 12/30 Clavulanate Potassium PO 0830 Artificial Tears 2 GTT 4 TIMES/DAY 12/30 1800 AC 12/30 OPH 1717 Aspirin 81 MG DAILY 12/26 1000 AC 12/30 PO 0830 Atorvastatin Calcium 10 MG 1700 12/26 1700 AC 12/30 PO 1717 Benzonatate 100 MG TID 12/27 2200 AC 12/30 PO 1718 Budesonide/ 2 PUF BID 12/26 1000 AC 12/30 Formoterol Fumarate INH 0828 Cyanocobalamin 1,000 MCG DAILY 12/26 1000 AC 12/30 PO 0830 Diltiazem HCl 480 MG DAILY 12/26 1000 AC 12/30 PO 0830 Ferrous Sulfate 325 MG BID 12/26 1000 AC 12/30 PO 0830 Furosemide 40 MG 0730,1630 12/29 1630 AC 12/30 IV 1717 Glycerin 2 SPRAY Q2P PRN 12/30 1830 CAN PO Glycerin 2 SPRAY Q2P PRN 12/30 1630 AC 12/30 PO 1718 Guaifenesin/Codeine 10 ML Q6P PRN 12/28 1200 AC 12/29 Phosphate PO 2132 Insulin Aspart 0 TIDAC 12/28 0800 AC 12/30 SC 171 Insulin Aspart 0 AT BEDTIME 12/26 2200 AC 12/29 SC 2129 Prednisone 40 MG DAILY 12/28 1000 AC 12/30 PO 12/30 2300 0830 Rivaroxaban 20 MG DAILY 12/26 1000 AC 12/30 PO 0829 Tiotropium [place] 1 PUF DAILY 12/26 1000 AC 12/30 INH 0829 Results Last 48 Hrs of Labs/Mics: Laboratory Tests 12/30/17 0725: Anion Gap 10, Estimated GFR 43 L, BUN/Creatinine Ratio 28.1 H, CBC w Diff NO MAN DIFF REQ, RBC 3.23 L, MCV 87.7, MCH 28.0, MCHC 31.9 L, RDW 16.5 H, MPV 8.5, Gran % 86.2 H, Lymphocytes % 6.6 L, Monocytes % 7.1, Eosinophils % 0.1, Basophils % 0, Absolute Granulocytes 8.9 H, Absolute Lymphocytes 0.7 L, Absolute Monocytes 0.7 H, Absolute Eosinophils 0, Absolute Basophils 0 12/29/17 0728: Anion Gap 11, Estimated GFR 32 L, BUN/Creatinine Ratio 26.2 H, CBC w Diff NO MAN DIFF REQ, RBC 3.28 L, MCV 87.6, MCH 27.9, MCHC 31.9 L, RDW 16.4 H, MPV 8.8, Gran % 90.8 H, Lymphocytes % 3.4 L, Monocytes % 5.8, Eosinophils % 0, Basophils % 0, Absolute Granulocytes 11.0 H, Absolute Lymphocytes 0.4 L, Absolute Monocytes 0.7 H, Absolute Eosinophils 0, Absolute Basophils 0 Assessment/Plan Assessment/Plan [id number] w/ hx end-stage COPD (oxygen dependent) with previous exacerbations, chronic hypercapnic respiratory failure pulmonary hypertension, hypertension, dyslipidemia, diabetes mellitus, cardiomyopathy, (EF ~35%) and chronic atrial fibrillation who presented 12/25/2017 with shortness of breath, cough, etc. 2/2 AECOPD, chronic hypercapnic respiratory failure, & L PNA. Continues to clinically improve. Continue antimicrobial therapy as per pulmonary medicine. Vascular evaluation pending for AAA. Continue telemetry? Yes
[2017-12-30 21:34] VITALS: BP 118/78
[2017-12-31 06:27] VITALS: BP 92/58
[2017-12-31 08:00] VITALS: BP 118/72
--- NOTE | 2017-12-31 10:02 | PN- Pulmonary ---
Subjective HPI/Critical Care Issues: Patient feels well without shortness of breath he said no further hemoptysis Objective Current Medications: Current Medications Sig/Eve Start time Last Medication Dose Route Stop Time Status Admin Albuterol Sulfate 3 ML EVERY 4 HRS/AWAKE 12/26 1600 AC 12/31 INH 0854 Albuterol Sulfate 3 ML Q4P PRN 12/26 0315 AC INH Amoxicillin/ 875 MG Q12 12/28 1000 AC 12/31 Clavulanate [place] PO 0807 Artificial Tears 2 GTT 4 TIMES/DAY 12/30 1800 AC 12/31 OPH 0808 Aspirin 81 MG DAILY 12/26 1000 AC 12/31 PO 0808 Atorvastatin Calcium 10 MG 1700 12/26 1700 AC 12/30 PO 1717 Benzonatate 100 MG TID 12/27 2200 AC 12/31 PO 0808 Budesonide/ 2 PUF BID 12/26 1000 AC 12/31 Formoterol Fumarate INH 0811 Cyanocobalamin 1,000 MCG DAILY 12/26 1000 AC 12/31 PO 0808 Diltiazem HCl 480 MG DAILY 12/26 1000 AC 12/31 PO 0808 Ferrous Sulfate 325 MG BID 12/26 1000 AC 12/31 PO 0808 Furosemide 40 MG 0730,1630 12/29 1630 AC 12/31 IV 0659 Glycerin 2 SPRAY Q2P PRN 12/30 1830 CAN PO Glycerin 2 SPRAY Q2P PRN 12/30 1630 AC 12/30 PO 1718 Guaifenesin/Codeine 10 ML Q6P PRN 12/28 1200 AC 12/29 Phosphate PO 2132 Insulin Aspart 0 TIDAC 12/28 0800 AC 12/31 SC 0807 Insulin Aspart 0 AT BEDTIME 12/26 2200 AC 12/30 SC 2104 Prednisone 40 MG DAILY 12/28 1000 DC 12/30 PO 12/30 2300 0830 Rivaroxaban 20 MG DAILY 12/26 1000 AC 12/31 PO 0808 Tiotropium [place] 1 PUF DAILY 12/26 1000 AC 12/30 INH 0829 Vital Signs & I&O Last 24 Hrs of Vitals and I&O: Vital Signs Date Time Temp Pulse Resp B/P B/P Pulse O2 O2 Flow FiO2 Mean Ox Delivery Rate 12/31 0857 97 Nasal 4.0L Cannula 12/31 08 118/72 12/31 626 97.2 70 18 92/58 98 CPAP 12/30 2133 98.0 87 16 118/78 97 12/30 2128 Nasal 4.0L Cannula 12/30 1650 94 Nasal 4.0L Cannula 12/30 1530 Nasal 4.0L Cannula 12/30 1442 98.1 75 20 100/70 95 Intake & Output 12/31 1600 12/31 0800 12/31 0000 Intake Total 50 240 Output Total 350 2165 Balance -300 -1925 Intake, Oral 50 240 Number 0 Bowel Movements Output, Urine 350 2165 Patient 184 lb Weight Oxygen saturation 4 L 97% exam of his chest shows somewhat diminished breath sounds no wheezes or crackles cardiac exam shows regular S1 and S2 without murmurs Impression/Plan Impression/Plan Impression/Plan: 67-year-old gentleman admitted with exacerbation of COPD chronic hypercapnic respiratory failure and pneumonia was clinically improved. Oxygen saturation is improved and FiO2 can be tapered Recommendations: Complete course of antibiotics. Vascular evaluation for abdominal aortic aneurysm findings. Follow-up cardiology recommendation. Taper FiO2 his saturations allow no further pulmonary evaluation or recommendations
[2017-12-31 14:05] VITALS: BP 106/60
[2017-12-31] MEDS ORDERED: PREDNISONE10 M2 PO (15:16)
[2017-12-31] MEDS ORDERED: AUGMENTIN 875-1 EACH PO (15:16)
--- NOTE | 2017-12-31 20:40 | PN- Att Addend ---
Attending Addendum Attending Brief Note S: The patient was seen and discussed with house staff. Significant improvement in edema with IV Lasix (he had missed dose yesterday). Creat back to baseline. Patient wishes discharge home today. O: VS: Vital Signs Date Time Temp Pulse Resp B/P B/P Pulse O2 O2 Flow FiO2 Mean Ox Delivery Rate 12/31 1405 98.3 122 20 106/60 94 Nasal 4.0L Cannula 12/31 856 97 Nasal 4.0L Cannula 12/31 08 118/72 12/31 08 99 Nasal 4.0L Cannula 12/31 06 97.2 70 18 92/58 98 CPAP Intake & Output 12/31 1600 12/31 0800 12/31 0000 Intake Total 50 240 Output Total 139 976 9444 Balance -400 -600 -1925 Intake, Oral 50 240 Number 0 Bowel Movements Output, Urine 932 908 3013 Patient 184 lb Weight Current Medications Sig/Eve Start time Last Medication Dose Route Stop Time Status Admin Albuterol Sulfate 3 ML EVERY 4 HRS/AWAKE 12/26 1600 DCD 12/31 INH 0854 Albuterol Sulfate 3 ML Q4P PRN 12/26 0315 DCD INH Amoxicillin/ 875 MG Q12 12/28 1000 DCD 02 Clavulanate Pot[place] PO 0807 Artificial Tears 2 GTT 4 TIMES/DAY 12/30 1800 DCD 12/31 OPH 0808 Aspirin 81 MG DAILY 12/26 1000 DCD 12/31 PO 0808 Atorvastatin Calcium 10 MG 1700 02/ 1700 DCD 02 PO 1717 Benzonatate 100 MG TID 12/27 2200 DCD 12/31 PO 0808 Budesonide/ 2 PUF BID 12/26 1000 DCD 12/31 Formoterol Fumarate INH 0811 Cyanocobalamin 1,000 MCG DAILY 12/26 1000 DCD 12/31 PO 0808 Diltiazem HCl 480 MG DAILY 12/26 1000 DCD 12/31 PO 0808 Ferrous Sulfate 325 MG BID 12/26 1000 DCD 12/31 PO 0808 Furosemide 40 MG 0730,1630 02 1630 DCD 12/31 IV 0659 Glycerin 2 SPRAY Q2P PRN 12/30 1630 DCD 12/30 PO 1718 Guaifenesin/Codeine 10 ML Q6P PRN 12/28 1200 DCD 12/29 Phosphate PO 2132 Insulin Aspart 0 TIDAC 12/28 0800 DCD 12/31 SC 1209 Insulin Aspart 0 AT BEDTIME 12/26 2200 DCD 12/30 SC 2104 Prednisone 40 MG DAILY 12/28 1000 DC 12/30 PO 12/30 2300 0830 Rivaroxaban 20 MG DAILY 12/26 1000 DCD 12/31 PO 0808 Tiotropium [place] 1 PUF DAILY 12/26 1000 DCD 12/31 INH 1029 Physical Exam: Chest: diminished BS at bases Cor: RRR nl S1, S2 Abd: BS+, soft, NT Ext: 1-2+ edema (less than yesterday) Labs/Tests: Laboratory Tests 12/31/17 0616: Anion Gap 9, Estimated GFR 43 L, BUN/Creatinine Ratio 28.1 H Impression/Plan: #COPD Exacerbation- doing better. Plan: OK to discharge today with Prednisone taper as planned. #CAP- afebrile. Plan: Complete course of Augmentin as planned. #DM2- sugars stable. Plan: Continue usual diabetes regimen. #Acute on Chronic Hypoxic Respiratory Failure- back to baseline. Plan: Continue oxygen.
== END 2017-12-31 15:30 | DRG 193 ==
LOC: ERH 18:21 → ERHI 23:25 → ENRESERV 12-26 13:16 → ENTRNSPT 12-26 16:17 → 1NO 12-26 16:23 → EDTRNSPTSTS 12-26 16:42 → EDTRNSPT 12-26 16:42 → CMPTRNSPT 12-26 17:05 → 1NO 12-28 08:52 → ENPENDDIS 12-31 15:12 → 1NO 12-31 15:30
PROVIDERS: Physician Assistant; Student in an Organized Health Care Education/Training Program
PROC: 5A09357 Assistance with Respiratory Ventilation, Less than 24 Consecutive Hours, Continuous Positive Airway Pressure (ICD-10-PCS; principal; 2017-12-26)
DX: J18.9 Pneumonia, unspecified organism (principal); J96.22 Acute and chronic respiratory failure with hypercapnia; N17.9 Acute kidney failure, unspecified; I11.0 Hypertensive heart disease with heart failure; I50.22 Chronic systolic (congestive) heart failure; D62 Acute posthemorrhagic anemia; I42.9 Cardiomyopathy, unspecified; J44.0 Chronic obstructive pulmonary disease with (acute) lower respiratory infection; J44.1 Chronic obstructive pulmonary disease with (acute) exacerbation; Z99.81 Dependence on supplemental oxygen; I48.91 Unspecified atrial fibrillation; E11.9 Type 2 diabetes mellitus without complications; D50.0 Iron deficiency anemia secondary to blood loss (chronic); Z79.01 Long term (current) use of anticoagulants; Z79.84 Long term (current) use of oral hypoglycemic drugs; K21.9 Gastro-esophageal reflux disease without esophagitis; E78.5 Hyperlipidemia, unspecified; Z85.46 Personal history of malignant neoplasm of prostate; Z86.73 Personal history of transient ischemic attack (TIA), and cerebral infarction without residual deficits; Z98.890 Other specified postprocedural states; Z87.891 Personal history of nicotine dependence
CPT/HCPCS: 1NSP; ERO; 36415; 71045; 74177; 82436; 87040; 87070; 87071; 87449; 87450; 87804; 87804-59; 93005; 93010; 96374; 96375; 99291; J0456; J0696; J1940; J2920; J2930; J3490; J7060

== ENCOUNTER 2018-01-21 17:53 | Emergency (ER) | payer OTHER ==
[~2018-01-21] VITALS: Ht 180.3 cm; Wt 82.6 kg
[~2018-01-21 17:53] MED LIST changes: +ACETAZOLAMIDE PO; +B-121000 MC3 PO; +NATURE MADE IRON PO; +[UNRECOGNIZED DRUG - OTHER] PO
[2018-01-21 17:54] VITALS: BP 146/68
--- NOTE | 2018-01-21 18:17 | ED UPPER/LOWER EXTREMITY COMPL ---
History of Present Illness General Chief Complaint: Laceration Procedure Stated Complaint: ARM LAC Source: patient Exam Limitations: no limitations Vital Signs & Intake/Output Vital Signs & Intake/Output Vital Signs Date Time Temp Pulse Resp B/P B/P Pulse O2 O2 Flow FiO2 Mean Ox Delivery Rate 01/21 1754 98.1 98 20 146/68 91 Nasal 3.0L Cannula Allergies Coded Allergies: NO KNOWN ALLERGIES (02/05/16) Reconcile Medications [ACETAZOLAMIDE ER] 500 MG 1 PO DAILY DIRECTED (Reported) Albuterol Sulfate 2.5 MG/3 ML (0.083 %) VIAL.NEB 1 Vial INH/ABILIO Q4P PRN SHORTNESS OF BREATH (Reported) Albuterol Sulfate (Proair Hfa) 90 MCG HFA.AER.AD 2 PUF INH Q4-6 PRN PRN SHORTNESS OF BREATH (Reported) Amoxicillin/Potassium Clav (Augmentin 875-125 Tablet) 875 MG-125 MG TABLET 1 TAB PO BID PNEUNMONIA . Aspirin (Aspirin*) 81 MG TAB.CHEW 1 TAB PO DAILY HEART HEALTH (Reported) Atorvastatin Calcium (Lipitor) 10 MG TABLET 1 TAB PO DAILY CHOLESTEROL ( Reported) Budesonide/Formoterol Fumarate (Symbicort 160-4.5 Mcg Inhaler) 160 MCG-4.5 MCG/ ACTUATION HFA.AER.AD 2 PUF INH BID SHORTNESS OF BREATH (Reported) Cyanocobalamin (Vitamin B-12) (B-12) 1,000 MCG TABLET 1 TAB PO DAILY VITAMIN SUPPORT (Reported) Diltiazem HCl (Cardizem Cd) 240 MG CAP.ER.24H 480 MG PO DAILY Atrial fibrillation [EQUATE ANTI DIARHEAL] 2 MG 2 PO QHS DIARRHEA (Reported) Ferrous Sulfate 325 MG TABLET.DR 325 MG PO BID Iron supplement Furosemide (Lasix) 40 MG TABLET 1 TAB PO BID Water pill Metformin HCl (Glucophage) 1,000 MG TABLET 1 TAB PO BID DIABETES (Reported) [NATURE MADE IRON] 65 MG TAB 4 TAB PO QHS BLOOD HEALTH (Reported) Pantoprazole Sodium (Protonix) 40 MG TABLET.DR 1 TAB PO DAILY ACID REFLUX ( Reported) Prednisone 10 MG TABLET 1 TAB PO SEE ADMIN CRITERIA COPD TAKE 3 TABS X 3 DAYS 2 TABS X 3 DAYS 1 TAB X 3 DAYS THEN STOP.... Rivaroxaban (Xarelto) 20 MG TABLET 1 TAB PO DAILY BLOOD THINNER (Reported) with food Tiotropium [place] (Spiriva) 18 MCG CAP.W.DEV 1 CAP INH DAILY SHORTNESS OF BREATH (Reported) Triage Note: 67 YEAR OLD MALE REPORTS HE BUMPED RIGHT ELBOW INTO DOOR JAM. PT HAS WOUND COVERED WITH BANDAIDS THAT IS OOZING A SMALL AMOUNT OF BLOOD. PT STATES HE IS ON XARELTO FOR AFIB AND PREDNISONE. 02 DEPENDENT AT 4L VIA NC FOR HX OF COPD. Triage Nurses Notes Reviewed? yes Onset: Abrupt Duration: day(s): (LAST NIGHT) Timing: recent history Pain/Injury Location: Right: Elbow. No Modifying Factors: none HPI: 59-year-old male comes into the emergency room with a skin abrasion to right elbow. Patient caught it last night on door jam. He is on ELIQUIS. He says some associated bruising and bleeding from the site. He reports that he feels like he cannot get the bleeding under control. He comes in for further evaluation. Last tetanus shot unsure of. Denies any other associated symptoms. Past History Travel History Traveled to [place] past 21 day No Medical History Any Pertinent Medical History? see below for history Neurological: TIA EENT: cataracts Cardiovascular: AFIB, CHF, hypertension, hyperlipidemia Respiratory: COPD, 4L O2 DEPENDENT BIPAP AT NIGHT Gastrointestinal: GERD, ABD ANEURYSM Hepatic: NONE Renal: NONE Musculoskeletal: NONE Psychiatric: NONE Endocrine: diabetes Blood Disorders: NONE Cancer(s): prostate cancer QUALITY ASSURANCE ASSISTANT/Reproductive: NONE History of MRSA: No History of VRE: No History of CDIFF: No Surgical History Surgical History: cataract removal, PROSTATE SURGERY AAA REPAIR TONSILLECTOMY Psychosocial History Who do you live with Spouse Services at Home None What is your primary language Malay Tobacco Use: Quit >30 days ago Family History Family History, If Any: MOTHER, ; Cause: COPD (chronic obstructive pulmonary disease). FATHER, ; Cause: Myocardial infarct. SISTER, ; Cause: Myocardial infarct. Hx Contributory? No Review of Systems Review of Systems Constitutional: Reports: no symptoms. EENTM: Reports: no symptoms. Respiratory: Reports: no symptoms. Cardiovascular: Reports: no symptoms. Gastrointestinal/Abdominal: Reports: no symptoms. Genitourinary: Reports: no symptoms. Musculoskeletal: Reports: no symptoms. Skin: Reports: see HPI. Neurological/Psychological: Reports: no symptoms. Hematologic/Endocrine: Reports: no symptoms. Immunological: Reports: no symptoms. All Other Systems: Reviewed and Negative Physical Exam Physical Exam General Appearance: well developed/nourished, mild distress Head: atraumatic Eyes: Bilateral: normal appearance. Ears, Nose, Throat: normal ENT inspection, hearing grossly normal Neck: normal inspection Cardiovascular/Respiratory: no respiratory distress Back: normal inspection Elbow Right: skin abrasion right arm, associated bleeding and oozing, Neurologic/Tendon: normal sensation, normal motor functions, normal tendon functions, responds to pain, no evidence tendon injury, no pulse deficit Skin: intact, normal color, warm/dry Progress Differential Diagnosis: fracture, sprain, tendon injury Plan of Care: Current Medications Sig/Eve Start time Last Medication Dose Stop Time Status Admin Tetanus/Diphtheria 0.5 ML ONCE ONE 01/21 1830 UNVr 01/21 Toxoids Adsorbed 01/21 ([facility]) Comments: 01/21/2018 6:41:40 PM Patient clinically looks well. In no apparent distress. Irrigated with peroxide and saline. Kaltostat dressings placed with sterile dressing and Coban. No recurrent bleeding. Leave dressing on place for 3 days. Follow-up with PCP for recheck. Return if any other concerns worsening symptoms. Occurred almost 24 hours ago. Not suturable. Wouldn't be suturable evening patient came in last night. It is a very superficial skin tear. Departure Departure Disposition: HOME OR SELF CARE Condition: Stable Clinical Impression Primary Impression: Skin tear of elbow without complication Referrals: Ramses CR,Prabhakar Cherry (PCP/Family) Additional Instructions: Leave dressing in place for 3 days. Return if any other concerns worsening symptoms. Please go over all results of today's visit with your primary care doctor. Contact your primary care doctor to let them know you were here in the emergency room. There may be nonspecific findings which may not be related to your visit today here in the emergency room but may require further evaluation and chronic monitoring by your primary care doctor. If you had a laceration today the chance of foreign body always remains. You should follow-up with your primary care doctor for recheck in 3-5 days for a wound check. If you had an x-ray done there is a chance that a fracture could have been missed on initial read and you should follow-up with your primary care doctor for repeat x-rays if symptoms persist. If your blood pressure was elevated here in the emergency room please have rechecked by [facility] primary care doctor within the next 48. If you were prescribed a narcotic here in the emergency room or any type of controlled substances you're not allowed to drive while taking this medication or operate any type of heavy machinery. Narcotics can make you feel lightheaded dizziness nausea and can cause constipation. You may need to picker/puller a stool softener. Thank you for choosing [facility] emergency room. Please return to the emergency room immediately if you have any other concerns worsening of symptoms. Departure Forms: Customer Survey General Discharge Information
== END 2018-01-21 18:30 ==
LOC: ERH 17:53
DX: S51.011A Laceration without foreign body of right elbow, initial encounter (principal); W45.8XXA Other foreign body or object entering through skin, initial encounter; Y93.9 Activity, unspecified; Y92.9 Unspecified place or not applicable
CPT/HCPCS: 90471

== ENCOUNTER 2018-02-01 03:29 | Inpatient (IN) | payer OTHER ==
[~2018-02-01] VITALS: Ht 180.3 cm; Wt 80.7 kg
[2018-02-01] MEDS ORDERED: LOPERAMIDE2 M2 PO (07:13)
--- NOTE | 2018-02-01 09:23 | Operative Report ---
Operative/Inv Procedure Report Surgery Date: 02/01/18 Name of Procedure: 1. Ultrasound guided puncture of left common femoral artery. 2. Introduction of catheter into aorta 3. Aortogram 4. Placement of distal extension prosthesis for repair of abdominal aortic aneurysm. 5. Perclose closure of left femoral arteriotomy. Pre-Operative Diagnosis: Abdominal aortic aneurysm without rupture Post-Operative Diagnosis: Abdominal aortic aneurysm without rupture Estimated Blood Loss: scant Surgeon/Geophysical E Logger: Aiden Mancuso MD Anesthesia: local monitored anesthesi IV Fluids: 400ml Implants: Cook 18/55 left iliac limb Urine Output: N/M Drains: None Specimens: None Microbiology: None Complications: None Condition: Stable Operative Indication: 67y/o man who had undergone endovascular repair of aortic aneurysm years ago. He underwent workup for abdominal pain, and incidental finding of enlarging aortic aneurysm with endoleak was noted. I reviewed the films, and felt that this was a type IB endoleak from the left iliac limb. Therefore, patient was consented for placement of distal extension prosthesis to adequately seal the aneurysm. Operative/Procedure Note Note: After informed consent was obtained, patient was brought to the operating room and placed supine on the operating table. Conscious sedation was initiated. Both groins were shaved, prepped, and draped in the usual sterile fashion. 2g cefazolin was given intravenously prior to skin incision. Using the ultrasound, the left femoral artery was identified. It was patent. Real-time visualization of needle puncture into the left femoral artery was achieved with the ultrasound. Digital copies of the images were stored in the patient's chart for documentation purposes. Microsheath was used to access the left femoral artery in a retrograde fashion. This was followed by a glide wire in the abdominal aorta, a 7-Kenyan dilator in the left femoral arteriotomy, and 2 Perclose devices were deployed in a preclose fashion with the sutures clamped but not tied down, followed by a 7-Kenyan sheath in the left femoral arteriotomy. Flush catheter was placed in the suprarenal aorta. Abdominal aortogram was performed. Based on the diagnostic findings, the decision was made to proceed with intervention. Patient was fully anticoagulated with 8000 units of heparin. Amplatz wire was placed into the thoracic aorta. Cook 18/55 iliac limb was placed through the left femoral arteriotomy and deployed with 1.5 stent overlap to the previous left iliac limb. Post deployment angioplasty with a Coda balloon was performed. Completion arteriogram showed no evidence of endoleak. Sheath was removed, and left femoral arteriotomy was closed by pulling up on the previously placed Perclose sutures. Hemostasis was additionally assured via direct compression for 5 minutes. Heparin was partially reversed with 20mg protamine at the end of the case. Skin glue was applied. Patient was then awakened from anesthesia and brought to the recovery room in stable condition. Due to the lack of qualified resident assistance and the complexity of the case, surgical PA was required to assist with operation. Findings: 1. At the beginning of the case, there was an implanted bifurcated stent graft device in the abdominal aorta extending into the common iliac arteries bilaterally. There was not much purchase into the left common iliac artery by the left iliac limb. Aortogram showed patent flow through the stent graft with a type IB endoleak from the left iliac fixation site. The proximal neck was ectatic, but there was no evidence of type IA endoleak. Bilateral renal arteries were patent. 2. After placement of left iliac distal extension prosthesis, there was no evidence of endoleak into the aortic aneurysm. The left hypogastric artery was patent at the end of the case. Discharge Disposition: Same Day Admissions
--- NOTE | 2018-02-01 09:52 | Admission Core Measures ---
Acute Coronary Syndrome (CM) ACS Core Measures Acute Coronary Syndrome Diagnosis No Congestive Heart Failure (NEW) CHF Core Measures Congestive Heart Failure Diagnosis No Cerebrovascular Accident (NEW) CVA Core Measures CVA/TIA Diagnosis No Venous Thromboembolism VTE Core Jose (View Protocol) VTE Risk Factors Surgery No Mechanical VTE Prophylaxis d/t N/A MechProphylax Ordered No VTE Pharm Prophylaxis d/t NA PharmProphylax ordered Problem List As ranked by this Provider includes Assessment & Plan 1. History of AAA (abdominal aortic aneurysm) repair HOME MEDS Home Med List [ACETAZOLAMIDE ER] 500 MG 1 PO DAILY DIRECTED (Reported) Albuterol Sulfate 2.5 MG/3 ML (0.083 %) VIAL.NEB 1 Vial INH/ABILIO Q4P PRN SHORTNESS OF BREATH (Reported) Albuterol Sulfate (Proair Hfa) 90 MCG HFA.AER.AD 2 PUF INH Q4-6 PRN PRN SHORTNESS OF BREATH (Reported) Aspirin (Aspirin*) 81 MG TAB.CHEW 1 TAB PO DAILY HEART HEALTH (Reported) Atorvastatin Calcium (Lipitor) 10 MG TABLET 1 TAB PO DAILY CHOLESTEROL ( Reported) Budesonide/Formoterol Fumarate (Symbicort 160-4.5 Mcg Inhaler) 160 MCG-4.5 MCG/ ACTUATION HFA.AER.AD 2 PUF INH BID SHORTNESS OF BREATH (Reported) Cyanocobalamin (Vitamin B-12) (B-12) 1,000 MCG TABLET 1 TAB PO DAILY VITAMIN SUPPORT (Reported) Diltiazem HCl (Cardizem Cd) 240 MG CAP.ER.24H 480 MG PO DAILY Atrial fibrillation Ferrous Sulfate 325 MG TABLET.DR 325 MG PO BID Iron supplement Furosemide (Lasix) 40 MG TABLET 1 TAB PO BID Water pill Loperamide HCl (Loperamide) 2 MG CAPSULE 2 CAP PO BID PRN ANTI-DIARRHEAL ( Reported) Metformin HCl (Glucophage) 1,000 MG TABLET 1 TAB PO BID DIABETES (Reported) [NATURE MADE IRON] 65 MG TAB 4 TAB PO QHS BLOOD HEALTH (Reported) Pantoprazole Sodium (Protonix) 40 MG TABLET.DR 1 TAB PO DAILY ACID REFLUX ( Reported) Prednisone 10 MG TABLET 1 TAB PO SEE ADMIN CRITERIA COPD Rivaroxaban (Xarelto) 20 MG TABLET 1 TAB PO DAILY BLOOD THINNER (Reported) Tiotropium [place] (Spiriva) 18 MCG CAP.W.DEV 1 CAP INH DAILY SHORTNESS OF BREATH (Reported)
[2018-02-01 11:00] VITALS: BP 110/60
[2018-02-01 14:00] VITALS: BP 94/66
--- NOTE | 2018-02-01 14:04 | RADIOLOGY REPORT ---
EXAMINATION: CR ABDOMEN/INTRAOPERATIVE FLUOROSCOPY CLINICAL INDICATION: Endovascular AAA revision. COMPARISON: None TECHNIQUE/FINDINGS: Fluoroscopic equipment was dedicated to the operating room for the performance of an intraoperative procedure. 5 cine fluoroscopy runs were acquired and are archived in PACS. Please refer to operative notes for procedural detail. FLUOROSCOPY TIME: 4 minutes 50 seconds. IMPRESSION: Administrative dictation for intraoperative fluoroscopy and image archiving in PACS. Please refer to operative notes for details.
--- NOTE | 2018-02-01 14:24 | PN- Vascular Surgery ---
Subjective Subjective: POC No events noted in PACU. Patient currently without any complaints. Denies any abdominal pain, groin pain, chest pain, or SOB. Tolerating his diet without nausea or emesis. Voiding freely. Objective Vital Signs and I&Os Vital Signs Date Time Temp Pulse Resp B/P B/P Pulse O2 O2 Flow FiO2 Mean Ox Delivery Rate 02/01 1400 80 18 94/66 100 Nasal 4.0L Cannula 02/01 1105 96 Nasal 4.0L Cannula 02/01 1100 Nasal 4.0L Cannula 02/01 1100 99 Nasal 4.0L Cannula 02/01 1100 98.2 89 20 110/60 99 Nasal 4.0L Cannula Intake & Output 02/01 1600 02/01 0800 02/01 0000 01/31 1600 01/31 0800 01/31 0000 Intake Total 1987 Output Total 325 Balance 1662 Intake, IV 1207 Intake, Oral 780 Output, Urine 325 Patient 179 lb Weight Weight Bed scale Measurement Method Physical Exam: Afebrile, VSS. Cardiac: RRR Pulmonary: CTAB Abdominal: + BS, softly distended (per patient unchanged from usual body habitus ), non tender to palpation. No rebound or guarding. LLE: L groin site c/d/i, skin glue in place. No erythema, edema, or evidence of hematoma. No drainage. Able to wiggle toes. Motor and sensation grossly intact. Palpable DP/PT pulse. Assessment/Plan Assessment/Plan 67 y/o male POD # 0 s/p endovascular revision of AAA repair, stable post operatively. - Continue diet as tolerated - Supplemental IVF - Pain control and antiemetics prn - May be OOB - Encourage IS - COPD - pt usually on 4 L O2 at home which he is currently on - Home medications restarted including Xarelto and ASA 81mg - Follow up labs tomorrow am Core Measures Venous Thromboembolism VTE Risk Factors Surgery No Mechanical VTE Prophylaxis d/t N/A MechProphylax Ordered No VTE Pharm Prophylaxis d/t NA PharmProphylax ordered
--- NOTE | 2018-02-01 15:59 | Cons- CRCU ---
Wilian Galvez MD 02/01/18 1559: General Information and HPI Consulting Request Date of Consult: 02/01/18 Requested By: Surgical Team History of Present Illness: 67 year old man with past medical history of COPD on 4.0L oxygen on chronic prednisone, atrial fibrillation on Xarelto, TIA, congestive heart failure, AAA, [id number] diabetes mellitus, GERD, hypertension, and hyperlipidemia admitted endovascular repair of AAA. Patient was recently admitted to [facility] from 12/26/17 - 12/31/17 for evaluation of shortness of breath and cough found to have community acquired pneumonia with a acute COPD exacerbation for which he was placed on the telemetry floor and successfully treated with antibiotics and steroids. The endovascular leak was identified on imaging during the stay, however urgent intervention was not required. Patient was was discharged to home with oral antibiotics and a steroid taper. Patient was taken to the OR and tolerated the procedure well. Post operatively patient was transferred to the ICU under the surgical survery for post-op monitoring. Critical Care consult placed for management of patients medical issues. Presently patient feels well and has no complaints. He otherwise denies any headache, fever, chills, palpitations, chest pain, cough, shortness of breath, nausea, vomiting, diarrhea. Allergies/Medications Allergies: Coded Allergies: NO KNOWN ALLERGIES (02/05/16) Home Med List: [ACETAZOLAMIDE ER] 500 MG 1 PO DAILY DIRECTED (Reported) Albuterol Sulfate 2.5 MG/3 ML (0.083 %) VIAL.NEB 1 Vial INH/ABILIO Q4P PRN SHORTNESS OF BREATH (Reported) Albuterol Sulfate (Proair Hfa) 90 MCG HFA.AER.AD 2 PUF INH Q4-6 PRN PRN SHORTNESS OF BREATH (Reported) Aspirin (Aspirin*) 81 MG TAB.CHEW 1 TAB PO DAILY HEART HEALTH (Reported) Atorvastatin Calcium (Lipitor) 10 MG TABLET 1 TAB PO DAILY CHOLESTEROL ( Reported) Budesonide/Formoterol Fumarate (Symbicort 160-4.5 Mcg Inhaler) 160 MCG-4.5 MCG/ ACTUATION HFA.AER.AD 2 PUF INH BID SHORTNESS OF BREATH (Reported) Cyanocobalamin (Vitamin B-12) (B-12) 1,000 MCG TABLET 1 TAB PO DAILY VITAMIN SUPPORT (Reported) Diltiazem HCl (Cardizem Cd) 240 MG CAP.ER.24H 480 MG PO DAILY Atrial fibrillation Ferrous Sulfate 325 MG TABLET.DR 325 MG PO BID Iron supplement Furosemide (Lasix) 40 MG TABLET 1 TAB PO BID Water pill Loperamide HCl (Loperamide) 2 MG CAPSULE 2 CAP PO BID PRN ANTI-DIARRHEAL ( Reported) Metformin HCl (Glucophage) 1,000 MG TABLET 1 TAB PO BID DIABETES (Reported) [NATURE MADE IRON] 65 MG TAB 4 TAB PO QHS BLOOD HEALTH (Reported) Oxycodone HCl/Acetaminophen (Percocet 5-325 MG Tablet) 5 MG-325 MG TABLET 1-2 TAB PO Q4-6 PRN PAIN Pantoprazole Sodium (Protonix) 40 MG TABLET.DR 1 TAB PO DAILY ACID REFLUX ( Reported) Prednisone 10 MG TABLET 1 TAB PO SEE ADMIN CRITERIA COPD TAKE 3 TABS X 3 DAYS 2 TABS X 3 DAYS 1 TAB X 3 DAYS THEN STOP.... Rivaroxaban (Xarelto) 20 MG TABLET 1 TAB PO DAILY BLOOD THINNER (Reported) with food Tiotropium [place] (Spiriva) 18 MCG CAP.W.DEV 1 CAP INH DAILY SHORTNESS OF BREATH (Reported) Review of Systems Review of Systems Constitutional: Reports: see HPI. 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 FATHER, ; Cause: Myocardial infarct. SISTER, ; Cause: Myocardial infarct. Psychosocial History Where Do You Live? Home Who Do You Live With? self Services at Home: None Primary Language: Sami Smoking Status: Former Smoker Functional Ability ADLs Independent: dressing, eating, toileting, bathing. Ambulation: independent IADLs Independent: shopping, housework, finances, food prep, telephone, transportation , medication admin. Exam & Diagnostic Data Last 24 Hrs of Vital Signs/I&O Vital Signs Date Time Temp Pulse Resp B/P B/P Pulse O2 O2 Flow FiO2 Mean Ox Delivery Rate 02/01 1400 80 18 94/66 100 Nasal 4.0L Cannula 02/01 1105 96 Nasal 4.0L Cannula 02/01 1100 Nasal 4.0L Cannula 02/01 1100 99 Nasal 4.0L Cannula 02/01 1100 98.2 89 20 110/60 99 Nasal 4.0L Cannula Intake & Output 02/01 1600 02/01 0800 02/01 0000 Intake Total 1987 Output Total 325 Balance 1662 Intake, IV 1207 Intake, Oral 780 Output, Urine 325 Patient 81.3 kg Weight Weight Bed scale Measurement Method Physical Exam Other Physical Findings: GEN: well developed, well nourished elderly man in no acute distress HEENT: NCAT, PERRL, EOMI, anicteric sclerea, MMM, nasal cannula NECK: Supple, no JVD, trachea midline CARD: normal s1/s2 w/o m/g/r; irregularly irregykar PULM: Bibasilar wheezing ABD: Soft, NT, ND, BS+ NEURO: Awake and alert, CN II-XII grossly intact EXT: normal pulses, 2+ RLE pitting edema Last 48 Hrs of Labs/Sridhar: None Assessment/Plan CRCU Impression/Plan: 67 year old man with multiple medical problems s/p endovascular repair admitted to the ICU post operatively for monitoring. Problem List -AAA leak s/p endovascular repair -COPD on 4.0L oxygen on chronic prednisone -Atrial fibrillation on Xarelto -History of TIA -History of congestive heart failure -Sju-bcmxwvd-lwnmpcpon diabetes mellitus -GERD -Hypertension -Hyperlipidemia Recommendations: -ICU admission -Post-operative management per surgery -Monitor vitals -Accuchecks -TRC with Nebs PRN -Supplemental oxygen, baseline 4.0L -Nocturnal BiPAP -Continue home prednisone 10 mg Daily -Continue home meds as ordered -Monitor CBC and Renal function -Type & cross, transfuse PRBC PRN to keep hgb > 8 -Heart Healthy diet -DVT PPx with Xarelto -FULL CODE Consult Acknowledgment - Thank you for your consult request. Saray CR,Mark 02/01/18 1606: Assessment/Plan CRCU Other Findings/Comments: Impression 67 year old man -COPD - severe o2 and prednisone dependent -chronic hypoxemic and hypercarbic respiratory failure -repair of endoleak Plan -s/p endovascular leak repair -perednisone 10mg at baseline - continue for now -monitor finger sticks -TRC/Nebs -bipap home settings - nocturnla DVT prophylaxis at all times TTS 35 min Consult Acknowledgment - Thank you for your consult request.
[2018-02-01 16:00] VITALS: BP 101/71; BP 94/64
[2018-02-01] MEDS ORDERED: PERCOCET 5-3251 EACH PO (16:46)
--- NOTE | 2018-02-01 16:51 | Patient Discharge Instructions ---
Discharge Instructions General Discharge Information You were seen/treated for: Endovascular AAA repair leak You had these procedures: Revision Endovascular AAA repair Watch for these problems: Increasing abdominal pain/bloating Increasing back pain Worsening swelling to bilateral arms and legs Discoloration to bilateral legs Chest pain, shortness of breath, difficulty breathing Inability to urinate/move bowels Fever >100.5 Do not soak the wound: Yes No bath, but you may shower: Yes Other wound care: Groin, keep clean and dry Diet Continue normal diet: Yes Recommended Diet: Heart Healthy Activity Full Activity/No Limits: No Activity Self Limited: Yes Pounds, do NOT lift more than: 10 Acute Coronary Syndrome Inclusion Criteria At DC or during hospital stay patient has or had the following: ACS DIAGNOSIS No Discharge Core Measures Meds if any: Prescribed or Continued at Discharge Meds if any: NOT Prescribed or Continued at Discharge Congestive Heart Failure Inclusion Criteria At DC or during hospital stay patient has or had the following: CHF DIAGNOSIS No Discharge Core Measures Meds if any: Prescribed or Continued at Discharge Meds if any: NOT Prescribed or Continued at Discharge Cerebrovascular accident Inclusion Criteria At DC or during hospital stay patient has or had the following: CVA/TIA Diagnosis No Discharge Core Measures Meds if any: Prescribed or Continued at Discharge Meds if any: NOT Prescribed or Continued at Discharge Venous thromboembolism Inclusion Criteria VTE Diagnosis No VTE Type NONE VTE Confirmed by (Test) NONE Discharge Core Measures - Per Current guidelines, there needs to be overlap - treatment for the first 5 days of Warfarin therapy. - If discharged on Warfarin prior to 5 days of - overlap therapy, the patient will need to be - assessed for post discharge needs including - *Post discharge parental anticoagulation - *Warfarin and/or parental anticoagulation education - *Follow up date to check INR post discharge At least 5 days overlap therapy as Inpatient No Meds if any: Prescribed or Continued at Discharge Note: Overlap Therapy is Warfarin and Anticoagulant Meds if any: NOT Prescribed or Continued at Discharge
--- NOTE | 2018-02-01 16:55 | Surgical Discharge Summary ---
Visit Information Visit Dates Admission Date: 02/01/18 Discharge Date: 02/02/18 History of Present Illness Chief Complaint: Leaking left iliac limb of previous endovascular aaa repair Medical History Blood Transfusion Hx: Yes Neurological: TIA 2010 EENT: cataracts Cardiovascular: AFIB, CHF, hypertension, hyperlipidemia Respiratory: COPD, 4L O2 DEPENDENT BIPAP AT NIGHT Gastrointestinal: GERD, ABD ANEURYSM Hepatic: NONE Renal: NONE Musculoskeletal: NONE Psychiatric: NONE Endocrine: diabetes Blood Disorders: NONE Cancer(s): prostate cancer PRODUCE BUYER/Reproductive: NONE History of MRSA: No History of VRE: No History of CDIFF: No Isolation History: Standard Influenza Vaccine: 08/20/17 Tetanus Vaccine: 01/21/18 Surgical History Pertinent Surgical History: cataract removal, PROSTATE SURGERY AAA REPAIR TONSILLECTOMY, Endovascular AAA repair Family History Relations & Conditions If Any: MOTHER, ; Cause: COPD (chronic obstructive pulmonary disease). FATHER, ; Cause: Myocardial infarct. SISTER, ; Cause: Myocardial infarct. Psychosocial History Where Do You Live? Home Who Do You Live With? Spouse Services at Home: None What is Your Primary Language? Kyrgyz Review of Systems: See H&P Hospital Course Course Attending Physician: Aiden Mancuso MD Primary Care Physician: Prabhakar Pearce MD Hospital Course: 02/01 presented to OR for revision Endovascular AAA repair for left iliac limb leak requiring the placement of a small extension stent in the left limb. He tolerated the procedure well. He remained supine for the initial 4 hours post op, tolerated repositioning well after. Diet was advanced and tolerated. Void was spontaneous. He was ambulatory. At the time of hospital discharged, pain was controlled with po pain medication, neurovascular status was intact. Complications: None Allergies: Coded Allergies: NO KNOWN ALLERGIES (02/05/16) Disposition Summary Disposition Principal Diagnosis: Leak left liliac limb s/p prior repair endovascular aaa Additional Diagnosis: None Discharge Disposition: home health services Discharge Instructions General Discharge Information Code Status: Full Code Patient's Diet: Heart healthy, advance as tolerated Patient's Activity: As tolerated Follow-Up Instructions/Appts: Follow up with Dr. Mancuso in one week from date of surgery Medications at Discharge Discharge Medications: Continue taking these medications: Rivaroxaban (Xarelto) 20 MG TABLET 1 Tablet ORAL DAILY Instructions: with food Comments: Last Taken: 12/31/16 Time: 8:00 AM Aspirin (Aspirin*) 81 MG TAB.CHEW 1 Tablet ORAL DAILY Comments: Last Taken: 12/31/16 Time: 8:00 am Tiotropium [place] (Spiriva) 18 MCG CAP.W.DEV 1 Capsule Inhale through mouth DAILY Comments: Last Taken: 12/31/17 Time: 0800 Budesonide/Formoterol Fumarate (Symbicort 160-4.5 Mcg Inhaler) 160 MCG-4.5 MCG/ ACTUATION HFA.AER.AD 2 Puff Inhale through mouth TWICE DAILY Comments: Last Taken: 12/31/17 Time: 8:00 am Albuterol Sulfate (Proair Hfa) 90 MCG HFA.AER.AD 2 Puff Inhale through mouth EVERY 4-6 HOURS NEEDED as needed for SHORTNESS OF BREATH Comments: Last Taken: 08/10/17 Time: 12:00 Albuterol Sulfate (Albuterol Sulfate) 2.5 MG/3 ML (0.083 %) VIAL.NEB 1 Vial Inhale Solution EVERY 4 HOURS NEEDED as needed for SHORTNESS OF BREATH Comments: Pantoprazole Sodium (Protonix) 40 MG TABLET. 1 Tablet ORAL DAILY Comments: Last Taken: Time:NOT GIVEN IN THE HOSPITAL Atorvastatin Calcium (Lipitor) 10 MG TABLET 1 Tablet ORAL DAILY Comments: Last Taken: 12/30/17 Time: 5:00 pm Metformin HCl (Glucophage) 1,000 MG TABLET 1 Tablet ORAL TWICE DAILY Comments: NOT GIVEN IN HOSPITAL Diltiazem HCl (Cardizem Cd) 240 MG CAP.ER.24H 480 Milligram ORAL DAILY Days = 30 Comments: Last Taken: 12/31/17 Time: 8:00 am Ferrous Sulfate (Ferrous Sulfate) 325 MG TABLET. 325 Milligram ORAL TWICE DAILY Days = 30 Comments: Last Taken: 12/31/16 Time: 8:00 AM Furosemide (Lasix) 40 MG TABLET 1 Tablet ORAL TWICE DAILY Days = 30 Comments: Last Taken: 12/31/17 Time: 7:00 AM [ACETAZOLAMIDE ER] 500 MG 1 ORAL DAILY Cyanocobalamin (Vitamin B-12) (B-12) 1,000 MCG TABLET 1 Tablet ORAL DAILY [NATURE MADE IRON] 65 MG TAB 4 Tablet ORAL TAKE AT BEDTIME Prednisone (Prednisone) 10 MG TABLET 1 Tablet ORAL SEE INSTRUCTIONS Qty = 18 Instructions: TAKE 3 TABS X 3 DAYS 2 TABS X 3 DAYS 1 TAB X 3 DAYS THEN STOP.... Comments: TAKE 3 TABS X 3 DAYS 2 TABS X 3 DAYS 1 TAB X 3 DAYS THEN STOP.... Loperamide HCl (Loperamide) 2 MG CAPSULE 2 Capsule ORAL TWICE DAILY as needed for ANTI-DIARRHEAL Start taking the following new medications: Oxycodone HCl/Acetaminophen (Percocet 5-325 MG Tablet) 5 MG-325 MG TABLET 1-2 Tablet ORAL EVERY 4-6 HOURS as needed for PAIN Qty = 36 No Refills Copies To: [facility]es [facility],Prabhakar Cherry
[2018-02-01 20:00] VITALS: BP 98/52
[2018-02-02] VITALS: BP 110/60
[2018-02-02 05:42] LABS: ABSOLUTE BASOPHIL COUNT 0 /CUMM (0.0-0.2); ABSOLUTE EOSINOPHIL COUNT 0 /CUMM (0.0-0.7); ABSOLUTE GRANULOCYTE CT 5.3 /CUMM (1.4-6.5); ABSOLUTE MONOCYTE COUNT 0.4 /CUMM (0.10-0.60); BASOPHIL % 0.3 % (0.0-2.0); EOSINOPHIL % 0.2 % (0-5); GRANULOCYTE % 78.2 % (42.2-75.2); HEMATOCRIT 26.8 % (42-52); MEAN CORPUSCULAR HGB 28.2 PG (27.0-31.0); MEAN CORPUSCULAR HGB CONC 31.9 G/DL (33.0-37.0); MEAN CORPUSCULAR VOLUME 88.4 FL (80.0-94.0); PLATELET COUNT 145 /CUMM (130-400); RBC DISTRIBUTION WIDTH 17.2 % (11.5-14.5); RED BLOOD CELL CT 3.04 /CUMM (4.70-6.10); WHITE BLOOD CELL COUNT 6.8 /CUMM (4.8-10.8)
--- NOTE | 2018-02-02 05:52 | PN- Vascular Surgery ---
Subjective Subjective: Pt in bed, having difficulty sleeping and wants to go home. Only pain is art line in left wrist. Ambulating. Voiding. No N/V. No BOOTH, CP/SOB Objective Vital Signs and I&Os Vital Signs Date Time Temp Pulse Resp B/P B/P Pulse O2 O2 Flow FiO2 Mean Ox Delivery Rate 02/02 0400 98 Nasal 2.0L Cannula 02/02 0318 97 BIPAP 4.0L 02/02 0000 97 CPAP 02/02 0000 96.8 88 28 110/60 97 CPAP 02/02 2000 98 Nasal 4.0L Cannula 02/02 2000 98.5 88 24 98/52 98 Nasal 4.0L Cannula 02/01 1630 98 Nasal 4.0L Cannula 02/01 1600 100 Nasal 4.0L Cannula 02/01 1600 93 30 101/71 98 Nasal 4.0L Cannula 02/01 1600 98.5 80 24 94/64 99 Nasal 4.0L Cannula 02/01 1400 80 18 94/66 100 Nasal 4.0L Cannula 02/01 1105 96 Nasal 4.0L Cannula 02/01 1100 Nasal 4.0L Cannula 02/01 1100 99 Nasal 4.0L Cannula 02/01 1100 98.2 89 20 110/60 99 Nasal 4.0L Cannula Intake & Output 02/02 0800 02/02 0000 02/01 1600 02/01 0800 02/01 0000 01/31 1600 Intake Total 1577 1987 Output Total 325 325 Balance 1252 1662 Intake, IV 617 1207 Intake, Oral 960 780 Number 0 Bowel Movements Output, Urine 325 325 Patient 179 lb Weight Weight Bed scale Measurement Method Physical Exam: gen- NAD resp-clear cardio-RRR abd-ND, soft, NT groin- left groin wound is soft, no ecchymosis, covered with glue, no signs if infection ext- 2+ pitting edema bilaterally. 2+ DP pulse bilaterally. distal sensory and motor function intact Assessment/Plan Assessment/Plan 67 y/o male POD # 1 s/p endovascular revision of AAA repair, stable. - Continue diet as tolerated - Supplemental IVF - Pain control and antiemetics prn - May be OOB - Encourage IS - COPD, APPRECIATE PULP INPUT, on prednisone at home, got stress dose yesterday - pt usually on 4 L O2 at home which he is currently on -Home bipap- regular setting - Home medications restarted including Xarelto and ASA 81mg -Likely will go home this afternoon Core Measures Venous Thromboembolism VTE Risk Factors Surgery No Mechanical VTE Prophylaxis d/t N/A MechProphylax Ordered No VTE Pharm Prophylaxis d/t NA PharmProphylax ordered
--- NOTE | 2018-02-02 07:25 | PN- Resident CRCU ---
Wilian Galvez MD 02/02/18 0724: Subjective HPI/CRCU Issues: Patient seen and examined. He is seen sitting upright in bed enjoying his breakfast at bedside. He appears to be in no acute distress. He reports feeling well and has no new complaints. Objective Vital Signs & I&O Last 8 Hrs of Vitals and I&O: TMAX 98.5 SBP 90s-110s Tele Afib HR 80s-100s Exam General Appearance: well developed/nourished, no apparent distress, alert, awake , comfortable Other Physical Findings: GEN: well developed, well nourished elderly man in no acute distress HEENT: NCAT, PERRL, EOMI, anicteric sclerea, MMM, nasal cannula NECK: Supple, no JVD, trachea midline CARD: normal s1/s2 w/o m/g/r; irregularly irregular PULM: Bibasilar wheezing ABD: Soft, NT, ND, BS+ NEURO: Awake and alert, CN II-XII grossly intact EXT: normal pulses, trace pedal edema Current Medications: Current Medications Sig/Eve Start time Last Medication Dose Route Stop Time Status Admin Acetaminophen 650 MG Q6P PRN 02/01 1030 AC PO Albuterol Sulfate 3 ML EVERY 4 HRS/AWAKE 02/01 1200 AC 02/02 INH 1221 Albuterol Sulfate 2 PUF Q4-6 PRN PRN 02/01 1030 AC INH Albuterol Sulfate 3 ML Q4P PRN 02/01 1030 AC INH Aspirin 81 MG DAILY 02/02 1000 DC PO Aspirin 81 MG DAILY 02/02 1000 AC 02/02 PO 0840 Atorvastatin Calcium 10 MG 1700 02/01 1700 DC PO Atorvastatin Calcium 10 MG 1700 02/01 1700 AC 02/01 PO 1805 Budesonide/ 2 PUF BID 02/01 2200 AC 02/02 Formoterol Fumarate INH 0841 Diltiazem HCl 480 MG DAILY 02/02 1000 DC PO Diltiazem HCl 480 MG DAILY 02/02 1000 AC 02/02 PO 0840 Ferrous Sulfate 325 MG BID 02/01 2200 DC PO Ferrous Sulfate 325 MG BID 02/01 2200 AC 02/02 PO 0840 Furosemide 40 MG 7:30 AM, & 4:30 PM 02/01 1630 DC PO Furosemide 40 MG 7:30 AM, & 4:30 PM 02/01 1630 AC 02/02 PO 0839 Insulin Human Regular 0 TIDAC/HS 02/01 1200 AC 02/02 SC 1141 Loperamide HCl 4 MG BID PRN 02/01 1030 AC PO Morphine Sulfate 2 MG Q2P PRN 02/01 1030 AC IV Omeprazole 40 MG DAILY AC 02/02 0700 DC PO Omeprazole 40 MG DAILY AC 02/02 0700 AC 02/02 PO 0638 Ondansetron HCl 4 MG Q6P PRN 02/01 1030 AC IV Oxycodone/ 1 TAB Q4P PRN 02/01 1030 AC Acetaminophen PO Oxycodone/ 2 TAB Q4P PRN 02/01 1030 AC Acetaminophen PO Prednisone 10 MG DAILY 02/02 1000 AC 02/02 PO 0840 Promethazine HCl 12.5 MG Q6P PRN 02/01 1030 AC IV 02/08 0944 Rivaroxaban 20 MG 1700 02/01 1700 DC PO Rivaroxaban 20 MG 1700 02/01 1700 AC 02/01 PO 1805 Senna 374 MG AT BEDTIME NEED.. 02/01 1030 AC PO Sodium Chloride 1,000 ML Q13H 02/01 1030 AC 02/01 IV 2125 Tiotropium [place] 1 PUF DAILY 02/02 1000 DC INH Tiotropium [place] 1 PUF DAILY 02/02 1000 AC 02/02 INH 0842 Impression/Plan Impression/Problem List Impression: 67 year old man with multiple medical problems s/p endovascular repair admitted to the ICU post operatively for monitoring. Patient remains stable post operatively without complaints. He has no active pulmonary issues and can safety be discharged to home with outpatient follow up on her previous medication regimen including prednisone. Problem List -AAA leak s/p endovascular repair -COPD on 4.0L oxygen on chronic prednisone -Atrial fibrillation on Xarelto -History of TIA -History of congestive heart failure -Nou-[id number] diabetes mellitus -GERD -Hypertension -Hyperlipidemia Recommendations: -Discharge to home -Post-operative management per surgery -Monitor vitals -Accuchecks -TRC with Nebs PRN -Supplemental oxygen, baseline 4.0L -Nocturnal BiPAP -Continue home prednisone 10 mg Daily -Continue home meds as ordered -Monitor CBC and Renal function -Type & cross, transfuse PRBC PRN to keep hgb > 8 -Heart Healthy diet -DVT PPx with Xarelto -FULL CODE Problem List: 1. History of AAA (abdominal aortic aneurysm) repair Pain Ratin Tomorrow's Labs & Rationales: See assessment Plan DVT/Prophylaxis: mechanical, pharmacological Code Status: Full Code Mark So MD 02/02/18 1416: Attending MD Review Statement Attending Sign Off Attending Cosign Statement: I have: examined this patient, reviewed [employer] EMR data, personally reviewd images, discussd w/resident/PA/[employer], discussed mgmt plan w/fredi, discussed mgmt plan w/CM, discussed mgmt plan w/pt, agreed w/resident/PA/[employer], amended to note. Other Findings: Impression 67 year old man -COPD - severe o2 and prednisone dependent -chronic hypoxemic and hypercarbic respiratory failure -repair of endoleak Plan -s/p endovascular leak repair -perednisone 10mg at baseline - continue for now -monitor finger sticks -TRC/Nebs -bipap home settings - nocturnla DVT prophylaxis at all times TTS 35 min will see in office after discharge - 2-4 weeks
[2018-02-02 08:00] VITALS: BP 110/74
[2018-02-02] MEDS ORDERED: PERCOCET 5-3251 EACH PO (10:01)
[2018-02-02 16:00] VITALS: BP 100/70
== END 2018-02-02 18:41 | DRG 269 ==
LOC: SDA 03:29 → ENTRNSPT 10:17 → EDTRNSPTSTS 10:36 → CMPTRNSPT 10:54 → CRI 11:03 → ENTRNSPT 02-02 18:05 → EDTRNSPT 02-02 18:28 → EDTRNSPTSTS 02-02 18:28 → CRI 02-02 18:41 → CMPTRNSPT 02-02 18:49
PROVIDERS: Nurse Practitioner
PROC: B41D1ZZ Fluoroscopy of Aorta and Bilateral Lower Extremity Arteries using Low Osmolar Contrast (ICD-10-PCS; principal; 2018-02-01)
PROC: 04V03DZ Restriction of Abdominal Aorta with Intraluminal Device, Percutaneous Approach (ICD-10-PCS; principal; 2018-02-01)
PROC: B44LZZ3 Ultrasonography of Femoral Artery, Intravascular (ICD-10-PCS; 2018-02-01)
DX: I71.4 Abdominal aortic aneurysm, without rupture (principal); J96.11 Chronic respiratory failure with hypoxia; E11.42 Type 2 diabetes mellitus with diabetic polyneuropathy; I50.9 Heart failure, unspecified; J96.12 Chronic respiratory failure with hypercapnia; I48.91 Unspecified atrial fibrillation; Z99.81 Dependence on supplemental oxygen; J44.9 Chronic obstructive pulmonary disease, unspecified; K21.9 Gastro-esophageal reflux disease without esophagitis; Z86.73 Personal history of transient ischemic attack (TIA), and cerebral infarction without residual deficits; M47.9 Spondylosis, unspecified; D64.9 Anemia, unspecified; E78.5 Hyperlipidemia, unspecified; Z79.01 Long term (current) use of anticoagulants; Z79.84 Long term (current) use of oral hypoglycemic drugs; Z79.82 Long term (current) use of aspirin; Z79.51 Long term (current) use of inhaled steroids; Z79.52 Long term (current) use of systemic steroids; I11.9 Hypertensive heart disease without heart failure; Z87.891 Personal history of nicotine dependence; Z85.46 Personal history of malignant neoplasm of prostate; H26.9 Unspecified cataract; Z82.49 Family history of ischemic heart disease and other diseases of the circulatory system
CPT/HCPCS: CCU; 36415; 74018; 82436; 86902; 86920; 86922; C1760; C9399; J0131; J1644; J1815; J2405; J2550; J2720; J3490; J7512; Q9967

== ENCOUNTER 2018-02-27 17:24 | Inpatient (IN) | payer OTHER ==
[~2018-02-27] VITALS: Ht 180.3 cm; Wt 80.1 kg
[~2018-02-27 17:24] MED LIST changes: +LOPERAMIDE2 M2 PO; +PERCOCET 5-3251 EACH PO
--- NOTE | 2018-02-27 17:56 | ED CARDIAC/CP/PALPITATIONS ---
History of Present Illness General Chief Complaint: Dyspnea (COPD, CHF, Other) Stated Complaint: COPD, SOB Source: patient Exam Limitations: no limitations Vital Signs & Intake/Output Vital Signs & Intake/Output Vital Signs Date Time Temp Pulse Resp B/P B/P Pulse O2 O2 Flow FiO2 Mean Ox Delivery Rate 02/279 78 95 02/274 97.8 100 24 106/58 99 BIPAP 30% 02/27 1908 87 26 105/66 96 BIPAP 30% 02/27 1820 83 96 02/27 1803 97 Nasal 4.0L Cannula 02/27 1730 98.2 115 22 104/67 100 Room Air ED Intake and Output 02/28 0000 02/27 1200 Intake Total Output Total Balance Patient 180 lb Weight Allergies Coded Allergies: NO KNOWN ALLERGIES (02/05/16) Reconcile Medications [ACETAZOLAMIDE ER] 500 MG 1 PO DAILY DIRECTED (Reported) Albuterol Sulfate (Proair Hfa) 90 MCG HFA.AER.AD 2 PUF INH Q4-6 PRN PRN SHORTNESS OF BREATH (Reported) Albuterol Sulfate 2.5 MG/3 ML (0.083 %) VIAL.NEB 1 Vial INH/ABILIO Q4P PRN SHORTNESS OF BREATH (Reported) Aspirin (Aspirin*) 81 MG TAB.CHEW 1 TAB PO DAILY HEART HEALTH (Reported) Atorvastatin Calcium (Lipitor) 10 MG TABLET 1 TAB PO DAILY CHOLESTEROL ( Reported) Budesonide/Formoterol Fumarate (Symbicort 160-4.5 Mcg Inhaler) 160 MCG-4.5 MCG/ ACTUATION HFA.AER.AD 2 PUF INH BID SHORTNESS OF BREATH (Reported) Cyanocobalamin (Vitamin B-12) (B-12) 1,000 MCG TABLET 1 TAB PO DAILY VITAMIN SUPPORT (Reported) Diltiazem HCl (Cardizem Cd) 240 MG CAP.ER.24H 480 MG PO DAILY Atrial fibrillation Ferrous Sulfate 325 MG TABLET.DR 325 MG PO BID Iron supplement Furosemide (Lasix) 40 MG TABLET 1 TAB PO BID Water pill Loperamide HCl (Loperamide) 2 MG CAPSULE 2 CAP PO BID PRN ANTI-DIARRHEAL ( Reported) Metformin HCl (Glucophage) 1,000 MG TABLET 1 TAB PO BID DIABETES (Reported) [NATURE MADE IRON] 65 MG TAB 4 TAB PO QHS BLOOD HEALTH (Reported) Oxycodone HCl/Acetaminophen (Percocet 5-325 MG Tablet) 5 MG-325 MG TABLET 1-2 TAB PO Q4-6 PRN PAIN tylenol alternatively. do not combine. Pantoprazole Sodium (Protonix) 40 MG TABLET.DR 1 TAB PO DAILY ACID REFLUX ( Reported) Prednisone 10 MG TABLET 1 TAB PO SEE ADMIN CRITERIA COPD TAKE 3 TABS X 3 DAYS 2 TABS X 3 DAYS 1 TAB X 3 DAYS THEN STOP.... Rivaroxaban (Xarelto) 20 MG TABLET 1 TAB PO DAILY BLOOD THINNER (Reported) with food Tiotropium [place] (Spiriva) 18 MCG CAP.W.DEV 1 CAP INH DAILY SHORTNESS OF BREATH (Reported) Triage Note: SOB INCREASINGLY WORSE SINCE THIS AM. ALSO LEFT SIDED CP SINCE THIS AM Triage Nurses Notes Reviewed? yes Onset: Gradual Duration: getting worse Timing: recent history Quality/Severity: moderate Radiation: no radiation HPI: Patient is a 67-year-old male with a past medical history significant for chronic respiratory failure and COPD currently on 4 L of oxygen at all times at baseline, patient uses nocturnal BiPAP, type 2 diabetes, hypertension, hyperlipidemia, atrial fibrillation ON XARELTO, CHF, last echo cardiogram noted to be 30% EF, and a recent procedure of abdominal aortic aneurysm performed on 02/01/[address] Courtney YI where patient presents emergency room with concerns of a 3 to four-day history of shortness of breath and chest pain to left side of his anterior chest wall for the past 12 hours. Patient complains of chronic leg swelling with no new changes, denies any fevers abdominal pain nausea vomiting arm pain jaw pain hemoptysis cough Patient is on chronic steroids (Massimo ALARCON,Greg) Past History Travel History Traveled to [place] past 21 day No Medical History Any Pertinent Medical History? see below for history Neurological: TIA 2010 EENT: cataracts Cardiovascular: AFIB, CHF, hypertension, hyperlipidemia Respiratory: COPD, 4L O2 DEPENDENT BIPAP AT NIGHT Gastrointestinal: GERD, ABD ANEURYSM Hepatic: NONE Renal: NONE Musculoskeletal: NONE Psychiatric: NONE Endocrine: diabetes Blood Disorders: NONE Cancer(s): prostate cancer TELLER/Reproductive: NONE History of MRSA: Yes History of VRE: No History of CDIFF: No Influenza Vaccine: 08/20/17 Tetanus Vaccine: 01/21/18 Surgical History Surgical History: cataract removal, PROSTATE SURGERY AAA REPAIR TONSILLECTOMY Endovascular AAA repair Psychosocial History Who do you live with Spouse Services at Home None What is your primary language Samoan Tobacco Use: Quit <30 days ago Family History Family History, If Any: MOTHER, ; Cause: COPD (chronic obstructive pulmonary disease). FATHER, ; Cause: Myocardial infarct. SISTER, ; Cause: Myocardial infarct. Hx Contributory? No (Greg Braga) Review of Systems Review of Systems Constitutional: Reports: see HPI. Denies: fever. EENTM: Reports: see HPI. Respiratory: Reports: see HPI, short of breath. Cardiovascular: Reports: see HPI, chest pain. GI: Reports: no symptoms. Genitourinary: Reports: no symptoms. Musculoskeletal: Reports: no symptoms. Skin: Reports: no symptoms. Neurological/Psychological: Reports: no symptoms. Hematologic/Endocrine: Reports: no symptoms. Immunologic/Allergic: Reports: no symptoms. All Other Systems: Reviewed and Negative (Greg Braga) Physical Exam Physical Exam General Appearance: mild distress Head: atraumatic Eyes: Bilateral: normal appearance, PERRL, EOMI. Ears, Nose, Throat: normal pharynx, normal ENT inspection Neck: normal inspection, full range of motion Respiratory: decreased breath sounds, wheezing, respiratory distress Cardiovascular: tachycardia, irregularly irregular Peripheral Pulses: 2+ radial (R) Gastrointestinal: normal bowel sounds, soft, non-tender Extremities: pedal edema Neurologic/Psych: no motor/sensory deficits, awake Skin: intact, normal color Core Measures ACS in differential dx? Yes CVA/TIA Diagnosis No Sepsis Present: No Sepsis Focused Exam Completed? No (Greg Braga) Progress Differential Diagnosis: AMI, aortic dissection, atrial fibrillation, cholecystitis, CHF/pulm edema, costochondritis, hyperkalemia, hypovolemia, hyperthyroid, hyperventilation, intracranial hemorrhage, musculoskeletal pain, myocarditis, pancreatitis, pericarditis, pneumonia, pneumothorax, PSVT, pulmonary embolism, PUD/GERD, PVCs/PACs, respiratory failure, sepsis, unstable angina, V-fib/V-Tach, WPW syndrome Plan of Care: Orders Procedure Date/time Status Heart Healthy Diet 02/28 B Active Patient Data 02/28 0001 Active Admit to inpatient 02/27 2147 Active Vital Signs 02/27 2147 Active Code Status 02/27 2147 Active ARTERIAL BLOOD GAS (GEN) 02/27 2130 Complete LACTIC ACID 02/27 2037 Complete BIPAP 02/27 1830 Complete Telemetry/Meat Manager 02/27 173 Active RAPID VIRAL INFLUENZA A 02/27 173 Complete TROPONIN LEVEL 02/27 173 Complete MAGNESIUM 02/27 1737 Complete LACTIC ACID 02/27 1737 Complete D-DIMER 02/27 1737 Complete COMPREHENSIVE METABOLIC PANEL 02/27 1737 Complete CBC WITHOUT DIFFERENTIAL 02/27 173 Complete B-TYPE NATRIURETIC PEP (BNP) 02/27 1737 Complete EKG 02/27 1737 Active ARTERIAL BLOOD GAS (GEN) 02/27 1729 Complete BIPAP 02/27 UNK Complete Laboratory Tests 02/27/18 2200: pH 7.30 *L, pCO2 59 H, pO2 73 L, HCO3 29 H, ABG O2 Sat (Measured) 94.0 L, Carboxyhemoglobin 1.0 L, O2 Concentration % 30%, Respiration Rate 24, O2 Delivery Method BIPAP, Vent Mode S/T, Expiratory Pressure 4, Inspiratory Pressure 14, Phlebotomy Draw Site LEFT RADIAL 02/27/18 2110: Lactic Acid 0.6 L 02/27/18 1750: pH 7.27 *L, pCO2 62 *H, pO2 95, HCO3 28, ABG O2 Sat (Measured) 96.0, Carboxyhemoglobin 0.3 L, O2 Concentration % 4L, O2 Delivery Method NC, Phlebotomy Draw Site LEFT RADIAL 02/27/18 1745: Anion Gap 13, Estimated GFR 55 L, BUN/Creatinine Ratio 17.7, Glucose 213 H, Lactic Acid 1.2, Calcium 8.9, Magnesium 2.1, Total Bilirubin 0.6, AST 9 L, ALT 26, Alkaline Phosphatase 78, Troponin I 0.04, Lcx-W-Szyjaqccbjg Pept 41071 H, Total Protein 5.9 L, Albumin 3.3 L, Globulin 2.6, Albumin/Globulin Ratio 1.3, D-Dimer High Sensitivty 448 H, CBC w Diff NO MAN DIFF REQ, RBC 3.32 L, MCV 86.1, MCH 26.7 L, MCHC 31.0 L, RDW 17.5 H, MPV 8.7, Gran % 89.3 H, Lymphocytes % 4.6 L, Monocytes % 5.8, Eosinophils % 0.3, Basophils % 0, Absolute Granulocytes 10.0 H, Absolute Lymphocytes 0.5 L, Absolute Monocytes 0.7 H, Absolute Eosinophils 0, Absolute Basophils 0 Microbiology 02/27 1750 NASOPHARYN: Influenza Virus A & B Rapid Smear - COMP Patient on initial examination was noted to be in mild respiratory distress ABG indicates respiratory failure BiPAP was placed BiPAP was administered patient had improvement of his respiratory distress, patient currently is on 4 L of nasal cannula oxygen saturation stable Patient will be admitted for concerns of COPD and CHF however at this time CT scan imaging is pending discussed hand off with dr louis CT scan currently is pending Diagnostic Imaging: Viewed by Me: Radiology Read. Initial ED EKG: AFIB 119 BPM, X 1 PVC Hand-Off Endorsed To: [place] DO Comments: PATIENT: COURTNEY MURCIA PRESENT AGE: 67 PATIENT ACCOUNT NO: [id number] : 49 LOCATION: ER ORDERING PHYSICIAN: Greg ALARCON SERVICE DATE: 02/27/18 EXAM TYPE: RAD - XRY-PORTABLE CHEST XRAY EXAMINATION: XR PORTABLE CHEST CLINICAL INFORMATION: Shortness of breath. COMPARISON: Chest x-ray 12/25/2017 CTA of chest 12/25/2017. TECHNIQUE: Portable frontal view of the chest was obtained. 6:59 PM FINDINGS: There is emphysematous hyperinflation of lungs. The heart size is enlarged. There are calcification of the aortic arch. There is diffuse increased interstitial lung markings which are more pronounced than the prior chest x-ray 12/25/2017 with mild central hilar vascular prominence. These are findings of interstitial edema and mild pulmonary vascular congestion. There is blunting of the right costophrenic angle similar to prior chest x-ray. There is no pneumothorax. IMPRESSION: Increased pulmonary vascularity of mild congestive heart failure, interstitial edema. Chronic blunting of the right costophrenic angle of pleural effusion and/or pleural thickening. DICTATED BY: Kamlesh Madrigal MD DATE/TIME DICTATED:02/27/181953 INDUCTION HEATING EQUIPMENT SETTER:LINDY PATIENT: COURTNEY MURCIA PRESENT AGE: 67 PATIENT ACCOUNT NO: [id number] : 49 LOCATION: ER ORDERING PHYSICIAN: Greg ALARCON SERVICE DATE: 02/27/18 EXAM TYPE: US - US-EXT BILAT VENOUS DOPPLER EXAMINATION: US TRIPLEX OF LOWER EXTREMITIES, BILATERAL CLINICAL INFORMATION: Bilateral leg swelling. COMPARISON: None TECHNIQUE: Color-flow triplex imaging with spectral analysis and compression Doppler were performed on the lower extremities. FINDINGS: Respiratory variation, normal compression and augmented flow are noted throughout the lower extremities. The visualized common femoral vein, superficial femoral vein, profunda femoral vein, popliteal vein and midcalf peroneal and posterior tibial venous segments show no evidence of deep venous thrombosis. There is a 4.7 x 1.4 x 2.6 cm homogeneous cyst in the right popliteal fossa. The left popliteal fossa is normal in appearance. IMPRESSION: Normal triplex scan without evidence of deep venous thrombosis involving the lower extremities. Right popliteal fossa 4.7 x 1.4 x 2.6 cm Fields's cyst. DICTATED BY: Doni Bai MD DATE/TIME DICTATED:02/27/181928 INDUCTION HEATING EQUIPMENT SETTER:LINDY DATE/TIME TRANSCRIBED:02/27/18 (Greg Braga) Departure Departure Disposition: STILL A PATIENT Condition: Stable Clinical Impression Primary Impression: Respiratory failure Secondary Impressions: CHF (congestive heart failure), COPD (chronic obstructive pulmonary disease) Referrals: Prabhakar Pearce MD (PCP/Family) Departure Forms: Customer Survey General Discharge Information (Greg Braga) Admission Note Spoke With: Marlene Cruz MD Documentation of Exam: Documentation of any treatments & extenuating circumstances including Concerns Regarding Discharge (functional status, medication knowledge or non-compliance, living conditions, etc.) that warrant an admission rather than observation: [The patient needs admission for IV antibiotics, IV diuresis, consider pulmonary consultation, BiPAP] On my examination the patient was comfortable on BiPAP. He is being admitted to telemetry. IMPRESSION: 1. No evidence of pulmonary embolism. 2. Marked emphysematous changes of the lung. 3. There has been interval improvement of the left lower lobe infiltrate since prior CT of chest of 12/25/2017. 4. New focal consolidation at the anterior right lower lobe. 5. Increased interstitial and alveolar opacities primarily of the upper lobes suggesting cardiogenic etiology, mild congestive changes. 6. Abdominal aortic aneurysm status post stenting without aneurysmal leak. No retroperitoneal hematoma. 7. Diverticulosis of colon without acute change of bowel. There is a left inguinal hernia which has a knuckle of the sigmoid colon just entering the hernia but this does not obstruct the colon. 8. Cholelithiasis. No acute change of the gallbladder. DICTATED BY: Kamlesh Madrigal MD DATE/TIME DICTATED:02/27/182037 INDUCTION HEATING EQUIPMENT SETTER:LINDY DATE/TIME TRANSCRIBED:02/27/182037 CONFIDENTIAL, DO NOT COPY WITHOUT APPROPRIATE AUTHORIZATION. <Electronically signed in Other Vendor System> SIGNED BY: Kamlesh Madrigal MD 02/27/182113 ([place] DO) Critical Care Note Critical Care Note Critical Care Time: 75-104 min (Greg Braga)
[2018-02-27 18:20] LABS: ABSOLUTE BASOPHIL COUNT 0 /CUMM (0.0-0.2); ABSOLUTE EOSINOPHIL COUNT 0 /CUMM (0.0-0.7); ABSOLUTE LYMPH COUNT 0.5 /CUMM (1.2-3.4); ABSOLUTE MONOCYTE COUNT 0.7 /CUMM (0.10-0.60); BASOPHIL % 0 % (0.0-2.0); EOSINOPHIL % 0.3 % (0-5); GRANULOCYTE % 89.3 % (42.2-75.2); HEMATOCRIT 28.6 % (42-52); MEAN CORPUSCULAR HGB 26.7 PG (27.0-31.0); MEAN CORPUSCULAR VOLUME 86.1 FL (80.0-94.0); MEAN PLATELET VOLUME 8.7 FL (7.4-10.4); PLATELET COUNT 278 /CUMM (130-400); RBC DISTRIBUTION WIDTH 17.5 % (11.5-14.5); RED BLOOD CELL CT 3.32 /CUMM (4.70-6.10); WHITE BLOOD CELL COUNT 11.2 /CUMM (4.8-10.8)
--- NOTE | 2018-02-27 19:34 | ULTRASOUND REPORT ---
EXAMINATION: US TRIPLEX OF LOWER EXTREMITIES, BILATERAL CLINICAL INFORMATION: Bilateral leg swelling. COMPARISON: None TECHNIQUE: Color-flow triplex imaging with spectral analysis and compression Doppler were performed on the lower extremities. FINDINGS: Respiratory variation, normal compression and augmented flow are noted throughout the lower extremities. The visualized common femoral vein, superficial femoral vein, profunda femoral vein, popliteal vein and midcalf peroneal and posterior tibial venous segments show no evidence of deep venous thrombosis. There is a 4.7 x 1.4 x 2.6 cm homogeneous cyst in the right popliteal fossa. The left popliteal fossa is normal in appearance. IMPRESSION: Normal triplex scan without evidence of deep venous thrombosis involving the lower extremities. Right popliteal fossa 4.7 x 1.4 x 2.6 cm Fields's cyst.
--- NOTE | 2018-02-27 20:00 | RADIOLOGY REPORT ---
EXAMINATION: XR PORTABLE CHEST CLINICAL INFORMATION: Shortness of breath. COMPARISON: Chest x-ray 12/25/2017 CTA of chest 12/25/2017. TECHNIQUE: Portable frontal view of the chest was obtained. 6:59 PM FINDINGS: There is emphysematous hyperinflation of lungs. The heart size is enlarged. There are calcification of the aortic arch. There is diffuse increased interstitial lung markings which are more pronounced than the prior chest x-ray 12/25/2017 with mild central hilar vascular prominence. These are findings of interstitial edema and mild pulmonary vascular congestion. There is blunting of the right costophrenic angle similar to prior chest x-ray. There is no pneumothorax. IMPRESSION: Increased pulmonary vascularity of mild congestive heart failure, interstitial edema. Chronic blunting of the right costophrenic angle of pleural effusion and/or pleural thickening.
--- NOTE | 2018-02-27 21:14 | CT SCAN REPORT ---
EXAMINATION: CT ANGIOGRAM CHEST CT ABDOMEN AND PELVIS WITH CONTRAST CLINICAL INFORMATION: Shortness of breath. Recent surgery. Abdominal aortic aneurysm repair. COMPARISON: Chest x-ray 02/27/2018. CT of chest 12/25/2017. TECHNIQUE: A noncontrast localizer was performed, followed by the administration of 95 mL Optiray [address] of the chest was then performed. Coronal and sagittal reformatted and 3-D technique MIP images of the chest were completed at the CT scanner and reviewed on the PACS workstation. No adverse effects were reported. Images were then performed through the abdomen and pelvis. Coronal and sagittal reformatted images performed at CT scanner by technologist. DLP: 875.36 mGy-cm FINDINGS: CTA CHEST: VASCULAR: The main pulmonary artery, secondary and tertiary branches of the pulmonary artery are normally opacified with no evidence of pulmonary embolism. There are scattered vascular wall calcifications of the aorta but no aneurysm or dissection of the thoracic aorta. The heart size is enlarged. MEDIASTINUM: No mediastinal mass. No significant lymphadenopathy. There is no pericardial effusion. LUNGS: There is emphysematous changes of the lung. On the CT of chest of 12/25/2017, there is a dense and patchy airspace consolidation at the left lung base. This has mostly resolved with only small airspace opacities remaining. There is now a focus of consolidation at the right lung base at the anterior right lower lobe that is new since prior CAT scan. There is patchy ground-glass opacities and interstitial thickening in the perihilar lung suggesting a cardiac etiology, interstitial edema with mild central vascular prominence. FLUID: There is no pericardial effusion. There is no pleural effusion. AXILLA: No significant lymphadenopathy. CT SCAN ABDOMEN PELVIS: LIVER, GALLBLADDER, AND BILIARY TREE: The liver is normal in size, shape, and attenuation. No focal hepatic lesion or biliary ductal dilatation is present. There are multiple small calcified gallstones in the neck of the gallbladder. No edema around the gallbladder. No bile duct dilatation. PANCREAS: The pancreas is atrophic. SPLEEN: Unremarkable. ADRENAL GLANDS: Unremarkable. KIDNEYS AND URETERS: There is a 4 mm nonobstructive stone in the midpole of the left kidney. There is no hydronephrosis. There is no ureteral calculi. BLADDER: Unremarkable. GASTROINTESTINAL TRACT: There is marked diverticulosis of left colon and sigmoid with a few diverticula of the right colon. There is no acute change of the bowel. There is no bowel obstruction. There is no bowel wall thickening or edema. The appendix is not seen. There is no inflammation of the mesentery. The small bowel loops are unremarkable. ABDOMINAL WALL: There is a fat-containing left inguinal hernia. A knuckle of the sigmoid colon enters the origin of the hernia but is not entrapped and is not obstructed. LYMPH NODES: Normal. VASCULAR: There is an aneurysm of the aorta which has been stented. The aneurysm measures 6.2 x 7.1 cm. The vascular stent extends through the aneurysm into the iliac arteries. There is no aneurysmal leak evident. No retroperitoneal hematoma. PELVIC VISCERA: Unremarkable. OSSEOUS STRUCTURES: Multilevel degenerative spondylosis of the dorsal spine. IMPRESSION: 1. No evidence of pulmonary embolism. 2. Marked emphysematous changes of the lung. 3. There has been interval improvement of the left lower lobe infiltrate since prior CT of chest of 12/25/2017. 4. New focal consolidation at the anterior right lower lobe. 5. Increased interstitial and alveolar opacities primarily of the upper lobes suggesting cardiogenic etiology, mild congestive changes. 6. Abdominal aortic aneurysm status post stenting without aneurysmal leak. No retroperitoneal hematoma. 7. Diverticulosis of colon without acute change of bowel. There is a left inguinal hernia which has a knuckle of the sigmoid colon just entering the hernia but this does not obstruct the colon. 8. Cholelithiasis. No acute change of the gallbladder.
--- NOTE | 2018-02-27 23:31 | History & Physical ---
[place] CR,[facility] 02/27/18 0171: General Information and HPI MD Statement: I have seen and personally examined COURTNEY MURCIA and documented this H&P. The patient is a 67 year old M who presented with a patient stated chief complaint of [difficulty breathing and weakness]. Source of Information: patient Exam Limitations: no limitations History of Present Illness: 67-year-old gentleman with a past medical history of chronic respiratory failure due to COPD on 4 L of oxygen at baseline with nocturnal BiPAP, A.fib on Xarelto, diabetes mellitus, hypertension, hyperlipidemia, history of abdominal aortic aneurysm repair, HFrEF with 30% ejection, presented to the ED for evaluation of worsening shortness of breath. According to the patient for the past week, he has been experiencing increasing fatigue and shortness of breath with walking. He has been unable to walk more than 6 steps as he gets short of breath. He feels alright while he is sitting and resting. Previously he was able to walk 40 steps, three times a day which is his baseline. He denies any cough, chest pain or sputum production. He also states having intermittent abdominal pain in his LLQ. He does not have constipation but experiences diarrhea if he does not take his antidiarrheal medication. Allergies/Medications Allergies: Coded Allergies: NO KNOWN ALLERGIES (02/05/16) Home Med list [ACETAZOLAMIDE ER] 500 MG 1 PO DAILY DIRECTED (Reported) Albuterol Sulfate (Proair Hfa) 90 MCG HFA.AER.AD 2 PUF INH Q4-6 PRN PRN SHORTNESS OF BREATH (Reported) Albuterol Sulfate 2.5 MG/3 ML (0.083 %) VIAL.NEB 1 Vial INH/ABILIO Q4P PRN SHORTNESS OF BREATH (Reported) Aspirin (Aspirin*) 81 MG TAB.CHEW 1 TAB PO DAILY HEART HEALTH (Reported) Atorvastatin Calcium (Lipitor) 10 MG TABLET 1 TAB PO DAILY CHOLESTEROL ( Reported) Budesonide/Formoterol Fumarate (Symbicort 160-4.5 Mcg Inhaler) 160 MCG-4.5 MCG/ ACTUATION HFA.AER.AD 2 PUF INH BID SHORTNESS OF BREATH (Reported) Cyanocobalamin (Vitamin B-12) (B-12) 1,000 MCG TABLET 1 TAB PO DAILY VITAMIN SUPPORT (Reported) Diltiazem HCl (Cardizem Cd) 240 MG CAP.ER.24H 480 MG PO DAILY Atrial fibrillation Ferrous Sulfate 325 MG TABLET. 325 MG PO BID Iron supplement Furosemide (Lasix) 40 MG TABLET 1 TAB PO BID Water pill Loperamide HCl (Loperamide) 2 MG CAPSULE 2 CAP PO BID PRN ANTI-DIARRHEAL ( Reported) Metformin HCl (Glucophage) 1,000 MG TABLET 1 TAB PO BID DIABETES (Reported) [NATURE MADE IRON] 65 MG TAB 4 TAB PO QHS BLOOD HEALTH (Reported) Oxycodone HCl/Acetaminophen (Percocet 5-325 MG Tablet) 5 MG-325 MG TABLET 1-2 TAB PO Q4-6 PRN PAIN tylenol alternatively. do not combine. Pantoprazole Sodium (Protonix) 40 MG TABLET.DR 1 TAB PO DAILY ACID REFLUX ( Reported) Prednisone 10 MG TABLET 1 TAB PO SEE ADMIN CRITERIA COPD TAKE 3 TABS X 3 DAYS 2 TABS X 3 DAYS 1 TAB X 3 DAYS THEN STOP.... Rivaroxaban (Xarelto) 20 MG TABLET 1 TAB PO DAILY BLOOD THINNER (Reported) with food Tiotropium [place] (Spiriva) 18 MCG CAP.W.DEV 1 CAP INH DAILY SHORTNESS OF BREATH (Reported) Past History Travel History Traveled to [place] past 21 day No Medical History Neurological: TIA 2010 EENT: cataracts Cardiovascular: AFIB, CHF, hypertension, hyperlipidemia Respiratory: COPD, 4L O2 DEPENDENT BIPAP AT NIGHT Gastrointestinal: GERD, ABD ANEURYSM Hepatic: NONE Renal: NONE Musculoskeletal: NONE Psychiatric: NONE Endocrine: diabetes Blood Disorders: NONE Cancer(s): prostate cancer EYE CARE PROFESSIONAL/Reproductive: NONE History of MRSA: Yes History of VRE: No History of CDIFF: No Influenza Vaccine: 08/20/17 Tetanus Vaccine: 01/21/18 Surgical History Surgical History: cataract removal, PROSTATE SURGERY AAA REPAIR TONSILLECTOMY Endovascular AAA repair Past Family/Social History Family History Relations & Conditions if any MOTHER, ; Cause: COPD (chronic obstructive pulmonary disease). FATHER, ; Cause: Myocardial infarct. SISTER, ; Cause: Myocardial infarct. Psychosocial History Who Do You Live With? self Services at Home: None Primary Language: Bengali Functional Ability ADLs Independent: dressing, eating, toileting, bathing. Ambulation: independent IADLs Independent: shopping, housework, finances, food prep, telephone, transportation , medication admin. Review of Systems Review of Systems Constitutional: Reports: weakness. Denies: chills, fever. EENTM: Reports: no symptoms. Cardiovascular: Reports: peripheral edema. Denies: chest pain, palpitations. Respiratory: Reports: short of breath. Denies: cough. GI: Reports: abdominal pain. Genitourinary: Reports: no symptoms. Musculoskeletal: Denies: back pain, joint pain. Skin: Reports: no symptoms. Neurological/Psychological: Reports: weakness. Hematologic/Endocrine: Reports: no symptoms. Exam & Diagnostic Data Last 24 Hrs of Vital Signs/I&O Vital Signs Date Time Temp Pulse Resp B/P B/P Pulse O2 O2 Flow FiO2 Mean Ox Delivery Rate 02/28 0310 91 97 02/28 0307 90 99 02/28 0023 103 97 02/28 0020 96 100 02/27 2229 78 95 02/27 2114 97.8 100 24 106/58 99 BIPAP 30% 02/27 1908 87 26 105/66 96 BIPAP 30% 02/27 1820 83 96 02/27 1803 97 Nasal 4.0L Cannula 02/27 1730 98.2 115 22 104/67 100 Room Air Intake & Output 02/28 0800 02/28 0000 02/27 1600 Intake Total Output Total Balance Patient 180 lb Weight Physical Exam General Appearance Alert, Oriented X3, Cooperative, Mild Distress Skin No Rashes, No Breakdown Skin Temp/Moisture Exam: Warm/Dry Sepsis Skin Exam (color): Normal for Ethnicity HEENT Atraumatic Cardiovascular Normal S1, Normal S2, No Murmurs Lungs diminished air entry at bases, mild crackles Abdomen Soft, No Tenderness Neurological Normal Speech Extremities b/l lower extremity edema up to knees Assessment/Plan Assessment: 67-year-old gentleman with a past medical history of chronic respiratory failure due to COPD on 4 L of oxygen at baseline with nocturnal BiPAP, A.fib on Xarelto, diabetes mellitus, hypertension, hyperlipidemia, history of abdominal aortic aneurysm repair, HFrEF with 30% ejection, presented to the ED for evaluation of worsening shortness of breath. Assessment: 1. Acute on Chronic Respiratory Failure 2. Possible pneumonia - new RLL infiltrate on imaging. 3. COPD Exacerbation 4. Acute on Chronic heart failure 5. History of A.fib on Xarelto. 6. History of AAA s/p endovascular repair Plan: * Admit patient to telemetry floor. * His proBNP is significantly elevated. Start Lasix IV 40mg BID. He received 60mg in the ED. * Cardiology consult with Dr Walton in am * Continue Xarelto and Diltizem for A.fib * His respiratory failure is likely exacerbated in the setting of pneumonia which is likely health care associated. He was recently discharged from [facility] two months ago. It is likely the pneumonia has exacerbated his COPD. * Continue nocturnal BiPAP and NC O2 in am if tolerated. * Start Vancomycin and Ceftazidime for possible HCAP * Obtain sputum culture * TRC/nebs as needed. * IV SoluMedrol 40mg q8. * Repeat ABG at 6am * Pulm consult with Dr So * Hold Spiriva and oral hypoglycemics * Insulin SS with Accucheks. * Continue other home meds. * DVT Prophylaxis: ALPS and Xarelto * Diet: Diabetic * Code: Full Code As Ranked By This Provider Problem List: 1. COPD (chronic obstructive pulmonary disease) Core Measures/Misc (08/06) Acute Coronary Syndrome ACS Diagnosis: No Congestive Heart Failure Congestive Heart Failure Diagnosis No Cerebrovascular Accident CVA/TIA Diagnosis: No VTE (View Protocol) VTE Risk Factors Age>40 No Mechanical VTE Prophylaxis d/t N/A MechProphylax Ordered No VTE Pharm Prophylaxis d/t NA PharmProphylax ordered Sepsis (View protocol) Sepsis Present: No Y[place] CR,[facility] 02/28/18 0100: Resident Review Statement Resident Statement: examined this patient, discussed with agriculture intern, agreed with agriculture intern Other Findings: 67-year-old male with a PMHx of chronic hypercarbic respiratory failure, COPD on 4 L of oxygen at baseline at home, with BiPAP at night, HFrEF 30%, A. fib on Xarelto, GERD, TIA, NIDDM, HTN, HLD, AAA s/p endovascular repair last month, who presented with a chief complaint of shortness breath and generalize weakness. Since last discharge patient was feeling good until 7 days ago when he started to feel short of breath, his symptom progressed and became associated with generalize weakness. At baseline he walks more than 40 steps before he feels short of breath however today he was only able to walk 6 steps. He reported feeling tired to the point that he was about to fall. He denies chest pain, cough, fever, chills, palpitation. He denies recent travel or sick contact. He denies fall. He was trying to self medicate with nebulizer but his symptoms did not improve. The patient reported intermittent left lower quadrant pain through the last week. He has chronic diarrhea, but he denies currently active diarrhea as long as he is taken antidiarrheal medication. Vitals and physical examination admission: Temp 98.2, HR 115, BP 104/67, ox 100 on 4 L. HEENT was WNL, CVS Nl s1/s2 with 2/6 systolic murmur without gallops or rubs. Resp decreased air entry over lung bilaterally with significant decreased air entry over the right lung base, crackles at lung base bilaterally with right being more than left, mild wheezing. Abd soft, NT/ND. LE +2 bilateral lower extremity edema up to the knees. Labs and imaging on admission: Leukocytosis up to 11.2, H&H 8.9 & 28.6, plt 278, normal sodium and potassium. Creatinine 1.3(at baseline). BNP 78827. Initial ABG 7.27/62/95/28 improved with BiPAP to 7.30/59/73/29. Venous Doppler was negative for DVT. CXR showed increased pulmonary vascularity and interstitial edema. CTA revealed no PE, emphysematous changes and New focal consolidation at the anterior right lower lobe. Assessment Patient acute on chronic hypercarbic respiratory failure most likely multifactorial secondary to CHF exacerbation and COPD exacerbation. CT is suggestive of pneumonia which can be considerable associated pneumonia given that he was admitted last month for AAA repair. The patient be treated with IV Lasix, IV steroid, nebulizer and IV antibiotic. He will need cardiology and pulmonology consult in the morning. For now we will continue BiPAP and repeat ABG if his symptom got worse. Problem list #Acute on chronic hypercarbic respiratory failure most likely secondary to * CHF exacerbation * COPD exacerbation * Healthcare associated pneumonia #A. fib on Xarelto #GERD, TIA, NIDDM, HTN, HLD #AAA s/p endovascular repair Plan For CHF exacerbation * Admit to telemetry floor * Received IV Lasix 60 mg in ED, repeat IV 40 mg in the morning * Strict Is/Os and daily weights * Cardiology consult For COPD exacerbation and quesionable healthcare associated pneumonia * Continue night times BiPAP * Repeat ABG only if symptom got worse * IV Solu-Medrol 40 mg every 8 * TRC/nebulizers * Sputum culture * 1 dose of vancomycin and cefazolin, dose antibiotic as per CKD if decided to continue * Pulmonology consult in am For A.fib * Continue Xarelto * Continue home dose of Cardizem For GERD, TIA, NIDDM, HTN, HLD * Continue PPI * Hold oral antihyperglycemic and start insulin SS * Continue home dose of antihypertensive * Continue statin -Heart healthy diet starting the morning(currently on BiPAP) -DVT Ppx with ALPS and Xarelto -FC Marlene Cruz 02/28/18 0647: Attending MD Review Statement Attending Statement Attending MD Statement: examined this patient, discuss w/resident/PA/TOMATO PASTE MAKER, agreed w/resident/PA/TOMATO PASTE MAKER, reviewed EMR data (avail), reviewed images, amended to note Attending Assessment/Plan: CC: Shortness of breath PMH: COPD on 4 L nasal cannula, nighttime BiPAP, DM, HTN, TIA, A. fib, HFrEF (EF 30%), abdominal aortic aneurysm S/P repair and recent extension of aortic prosthesis on February 01 Patient came to ER for worsening shortness of breath. He states that earlier he could walk 40-50 steps 3 times a day but now he could not even walk a few steps without getting short of breath, more so in last 1 week has mild left lower quadrant abdominal pain but denies any cough, expectoration, fever or chills. He endorses increased leg swelling bilateral lower extremity, more than usual. Other than the shortness of breath and leg swelling complete ROS unremarkable. Vitals: Afebrile, pulse 115, RR 22, blood pressure 104/67, saturating 100% on BiPAP On exam: A O 3, cooperative, in moderate respiratory distress, neck elevated, JVD normal, no lymphadenopathy, no focal neurological deficit, +3 pedal edema, no obvious skin rashes or inflammation CVS: S1-S2, irregular. RS: Bilateral crackles diffusely. Abdomen: Soft, NT, ND, bowel sounds present. Bilateral lower extremity venous Doppler: Normal triplex scan without evidence of deep venous thrombosis involving the lower extremities. Right popliteal fossa 4.7 x 1.4 x 2.6 cm Fields's cyst. CTA chest, CTA abdomen and pelvis: 1. No evidence of pulmonary embolism. 2. Marked emphysematous changes of the lung. 3. There has been interval improvement of the left lower lobe infiltrate since prior CT of chest of 12/25/2017. 4. New focal consolidation at the anterior right lower lobe. 5. Increased interstitial and alveolar opacities primarily of the upper lobes suggesting cardiogenic etiology, mild congestive changes. 6. Abdominal aortic aneurysm status post stenting without aneurysmal leak. No retroperitoneal hematoma. 7. Diverticulosis of colon without acute change of bowel. There is a left inguinal hernia which has a knuckle of the sigmoid colon just entering the hernia but this does not obstruct the colon. 8. Cholelithiasis. No acute change of the gallbladder Assessment and plan 67-year-old male with multiple comorbidities as mentioned above with the recent surgery for extension of aortic prosthesis for AAA endoleak on February 01 presented in ER for worsening of breathing, dyspnea on exertion, leg swelling over last 1 week. Patient was significantly hypoxic and in respiratory distress on arrival in ER, was started on BiPAP. ABG showed respiratory acidosis, improving gradually on BiPAP. On auscultation he has coarse crackles throughout, mildly elevated JVD, significant leg edema. Even though WBC was not significantly elevated, he has left shift. Creatinine 1.3, comparable to his previous. No significant lactic acidosis but his proBNP is elevated to 16,700 as compared to past and elevated d-dimer. CTA chest was obtained in ER which is negative for pulmonary embolism but shows focal consolidation and right lower lobe. He has improving consolidations from the past, patient was admitted for pneumonia from December 26 to December 31. Given his recent hospitalization we will cover him for healthcare associated pneumonia. Additionally he appears to have acute on chronic heart failure and COPD exacerbation, probably precipitated by pneumonia. Patient received IV Lasix in the ER with improvement + Suspected right lower lobe pneumonia + Acute on chronic heart failure with reduced ejection fraction + COPD exacerbation + Acute on chronic respiratory failure with hypercapnia and respiratory acidosis + History of DM, HTN, TIA, A. fib, abdominal aortic aneurysm S/P repair - Admit to telemetry - Continuous telemetry monitoring - Continue BiPAP - Repeat ABG in a.m. - IV Lasix 40 mg twice a day - Strict I's and O's - Daily weights - Serial troponin and EKGs - 2-D echo in a.m. - Cardiology consult in a.m. - DVT prophylaxis - Continue IV vancomycin and ceftazidime, renal adjusted - IV methylprednisolone 40 mg every 8 hours - Pulmonology consult - Continue rest of his home medications except Spiriva, change metformin to sliding scale insulin - DVT prophylaxis - Continue IV vancomycin and ceftazidime, renal adjusted - IV methylprednisolone 40 mg every 8 hours - Pulmonology consult - Continue rest of his home medications except Spiriva, change metformin to sliding scale insulin
[2018-02-28 05:47] LABS: ABSOLUTE BASOPHIL COUNT 0 /CUMM (0.0-0.2); ABSOLUTE EOSINOPHIL COUNT 0 /CUMM (0.0-0.7); ABSOLUTE GRANULOCYTE CT 4.7 /CUMM (1.4-6.5); ABSOLUTE LYMPH COUNT 0.3 /CUMM (1.2-3.4); ABSOLUTE MONOCYTE COUNT 0 /CUMM (0.10-0.60); BASOPHIL % 0 % (0.0-2.0); EOSINOPHIL % 0 % (0-5); GRANULOCYTE % 93.6 % (42.2-75.2); HEMATOCRIT 25.8 % (42-52); MEAN CORPUSCULAR HGB 27.4 PG (27.0-31.0); MEAN CORPUSCULAR HGB CONC 31.8 G/DL (33.0-37.0); MEAN CORPUSCULAR VOLUME 86.2 FL (80.0-94.0); MEAN PLATELET VOLUME 8.6 FL (7.4-10.4); PLATELET COUNT 241 /CUMM (130-400); RBC DISTRIBUTION WIDTH 17.1 % (11.5-14.5); RED BLOOD CELL CT 2.99 /CUMM (4.70-6.10)
[2018-02-28 06:06] VITALS: BP 102/60
--- NOTE | 2018-02-28 06:49 | Admission Certification ---
Admission Certification Certification Statement - As attending physician, I certify that at the time of - admission, based on clinical presentation, severity of - symptoms, need for further diagnostic testing and - therapeutic interventions, and risk of adverse outcomes - without in-hospital treatment, in my clinical assessment, - this patient requires an acute hospital stay for a minimum - of two nights or longer. I have also considered psychsocial - factors such as support system, advanced age, financial - issues, cognitive issues, and failed out-patient treatments, - past re-admission history, safety of patient, and lack of - compliance as applicable. Specific rationale supporting this admission is: Suspected right lower lobe pneumonia Acute on chronic heart failure with reduced ejection fraction COPD exacerbation
[2018-02-28 08:28] VITALS: BP 126/73
--- NOTE | 2018-02-28 10:07 | Cons- Cardiology ---
General Information and HPI Consulting Request Date of Consult: 02/28/18 Requested By: Marlene Cruz MD Reason for Consult: Recurrent CHF Source of Information: patient, old records Exam Limitations: no limitations History of Present Illness: Courtney Vieira is a 67-year-old male with severe end stage COPD, chronic atrial fibrillation and recurrent HFrEF for several years. I originally saw him when he presented with atrial fibrillation with bradycardia and elevated digoxin level, and we eventually just took him off digoxin. In July 2016 he presented with exacerbation of COPD, hypercapnic respiratory failure, and anasarca. He was diuresed with Lasix intravenously twice a day and sent home on 40 mg b.i.d. orally. He has been on Xarelto for some time for atrial fibrillation. He is also on chronic oxygen at 4 liters, aspirin, Lipitor, and diltiazem for rate control. He is pretty limited in terms of his activity because of the COPD. His echocardiogram in the hospital showed mild left ventricular dilatation with LVH and an ejection fraction of 45%. He also had right ventricle and right atrial dilatation, and left atrial dilatation. He had mild to moderate mitral regurgitation and a pulmonary artery pressure of about 45 mmHg. Courtney presented to the hospital again with pneumonia, exacerbation of COPD, and some mild CHF on 05/01/2017. He was treated with the usual measures including some IV Lasix. He had an echocardiogram which showed an ejection fraction of 35% to 40% with global moderate left ventricular dysfunction. He was discharged on 05/05. When he first presented he was in hypercarbic respiratory failure and had a high heart rate with atrial fibrillation and was transiently placed on Cardizem drip, which was eventually discontinued and his heart rate normalized and stayed normal for the rest of the hospitalization. He was readmitted to the hospital on 08/07/17 again with increasing shortness of breath. This time he appeared to be in more CHF than COPD exacerbation. We repeated his echo and his ejection fraction was now 30% to 35%. His pulmonary artery pressure was elevated to about 60 mmHg. He responded to diuretics and steroids, and other usual respiratory treatments. Courtney was once again admitted to [facility] on 12/25/2017. This time he had left lower lobe pneumonia. He also had some degree of worsening renal insufficiency. I was asked to see him a couple of days after his admission because of increasing edema. I recommended just keeping him on his usual dose of Lasix. He did not have abnormal cardiac enzymes at that time, and we did not repeat his echo. At his last office visit, which was just about one month ago, he was relatively stable. Subsequently he underwent endovascular repair of abdominal aortic aneurysm on 02/04/2018. This was uncomplicated and went home the next day. Subsequently he has continued to go to the CHF clinic and has been getting intermittent doses of intravenous Lasix there. His last visit to the clinic was just 2 days ago and he did get a dose of IV Lasix at that time. However Courtney continues to be short of breath and to have peripheral edema. He states he got worse over the past 2 days and finally came to the emergency department. He's had some atypical chest pain as well. He was found to be in worsening congestive heart failure and also some exacerbation of COPD. He has been started on IV Lasix. Enzymes are initially negative. Allergies/Medications Allergies: Coded Allergies: NO KNOWN ALLERGIES (NONE 03/02/18) Home Med List: [ACETAZOLAMIDE ER] 500 MG 1 PO DAILY DIRECTED (Reported) Albuterol Sulfate (Proair Hfa) 90 MCG HFA.AER.AD 2 PUF INH Q4-6 PRN PRN SHORTNESS OF BREATH (Reported) Albuterol Sulfate 2.5 MG/3 ML (0.083 %) VIAL.NEB 1 Vial INH/ABILIO Q4P PRN SHORTNESS OF BREATH (Reported) Aspirin (Aspirin*) 81 MG TAB.CHEW 1 TAB PO DAILY HEART HEALTH (Reported) Atorvastatin Calcium (Lipitor) 10 MG TABLET 1 TAB PO DAILY CHOLESTEROL ( Reported) Budesonide/Formoterol Fumarate (Symbicort 160-4.5 Mcg Inhaler) 160 MCG-4.5 MCG/ ACTUATION HFA.AER.AD 2 PUF INH BID SHORTNESS OF BREATH (Reported) Cyanocobalamin (Vitamin B-12) (B-12) 1,000 MCG TABLET 1 TAB PO DAILY VITAMIN SUPPORT (Reported) Diltiazem HCl (Cardizem Cd) 240 MG CAP.ER.24H 480 MG PO DAILY Atrial fibrillation Ferrous Sulfate 325 MG TABLET.DR 325 MG PO BID Iron supplement Furosemide (Lasix) 40 MG TABLET 1 TAB PO BID Water pill Loperamide HCl (Loperamide) 2 MG CAPSULE 2 CAP PO BID PRN ANTI-DIARRHEAL ( Reported) Metformin HCl (Glucophage) 1,000 MG TABLET 1 TAB PO BID DIABETES (Reported) [NATURE MADE IRON] 65 MG TAB 4 TAB PO QHS BLOOD HEALTH (Reported) Oxycodone HCl/Acetaminophen (Percocet 5-325 MG Tablet) 5 MG-325 MG TABLET 1-2 TAB PO Q4-6 PRN PAIN tylenol alternatively. do not combine. Pantoprazole Sodium (Protonix) 40 MG TABLET.DR 1 TAB PO DAILY ACID REFLUX ( Reported) Prednisone 10 MG TABLET 1 TAB PO SEE ADMIN CRITERIA COPD TAKE 3 TABS X 3 DAYS 2 TABS X 3 DAYS 1 TAB X 3 DAYS THEN STOP.... Rivaroxaban (Xarelto) 20 MG TABLET 1 TAB PO DAILY BLOOD THINNER (Reported) with food Tiotropium [place] (Spiriva) 18 MCG CAP.W.DEV 1 CAP INH DAILY SHORTNESS OF BREATH (Reported) Current Medications: Current Medications Sig/Eve Start time Last Medication Dose Route Stop Time Status Admin Albuterol Sulfate 3 ML EVERY 4 HRS/AWAKE 02/28 1200 AC 02/28 INH 0810 Albuterol Sulfate 3 ML ONCE ONE 02/27 1745 DC 02/27 INH 02/27 1746 182 Aspirin 81 MG DAILY 02/28 1000 AC 02/28 PO 0956 Atorvastatin Calcium 10 MG DAILY 02/28 1000 AC 02/28 PO 0956 Azithromycin 500 MG ONCE ONE 02/27 2015 DC 02/27 Dextrose/Water 250 ML IV 02/27 Ceftazidime 0 .STK-MED ONE 02/28 0542 DC .ROUTE Ceftazidime 1,000 MG ONCE ONE 02/285 DC 02/28 IV 02/28 0416 0544 Diltiazem HCl 480 MG DAILY 02/28 1000 AC 02/28 PO 0956 Ferrous Sulfate 325 MG BID 02/28 1000 AC 02/28 PO 0956 Furosemide 0 .STK-MED ONE 02/28 1920 DC IV Furosemide 0 .STK-MED ONE 02/27 1919 DC IV Furosemide 60 MG ONCE ONE 02/27 1915 DC 02/27 IV PUSH 02/27 Insulin Aspart 0 TIDAC 02/28 0800 AC 02/28 SC 0723 Ipratropium [place] 2.5 ML ONCE ONE 02/27 1745 DC 02/27 INH 02/27 1746 1828 Loperamide HCl 4 MG BID PRN 04/11 0415 AC PO Methylprednisolone 40 MG Q8 02/28 0600 AC 02/28 IV 0555 Methylprednisolone 0 .STK-MED ONE 02/27 1814 DC .ROUTE Methylprednisolone 125 MG ONCE ONE 02/27 1745 DC 02/27 IV 02/27 1746 1810 Omeprazole 20 MG DAILY AC 02/28 0700 AC 02/28 PO 0544 Omeprazole 0 .STK-MED ONE 02/28 0542 DC PO Rivaroxaban 20 MG DAILY 02/28 1000 AC 02/28 PO 0956 Vancomycin HCl 1,000 MG ONCE ONE 02/28 0415 DC 02/28 Dextrose/Water 250 ML IV 02/28 0514 0544 Review of Systems Review of Systems: He has no other complaints in the review of systems Past History Travel History Traveled to [place] past 21 day No Medical History Blood Transfusion Hx: No Neurological: TIA 2010 EENT: cataracts Cardiovascular: AFIB, CHF, hypertension, hyperlipidemia Respiratory: COPD, 4L O2 DEPENDENT BIPAP AT NIGHT Gastrointestinal: GERD, ABD ANEURYSM Hepatic: NONE Renal: NONE Musculoskeletal: NONE Psychiatric: NONE Endocrine: diabetes Blood Disorders: NONE Cancer(s): prostate cancer WIRE TAPER/Reproductive: NONE Surgical History Surgical History: cataract removal, PROSTATE SURGERY AAA REPAIR TONSILLECTOMY Endovascular AAA repair, endovascular abdominal aortic aneurysm repair Family History Relations & Conditions If Any: MOTHER, ; Cause: COPD (chronic obstructive pulmonary disease). FATHER, ; Cause: Myocardial infarct. SISTER, ; Cause: Myocardial infarct. Psychosocial History Where Do You Live? Home Who Do You Live With? self Services at Home: None Primary Language: Spanish Smoking Status: Former Smoker Functional Ability ADLs Independent: dressing, eating, toileting, bathing. Ambulation: independent IADLs Independent: shopping, housework, finances, food prep, telephone, transportation , medication admin. Exam & Diagnostic Data Vital Signs and I&O Vital Signs Date Time Temp Pulse Resp B/P B/P Pulse O2 O2 Flow FiO2 Mean Ox Delivery Rate 02/29 828 96.9 94 20 126/73 96 Nasal 4.0L Cannula 02/28 819 96 Nasal 4.0L Cannula 02/28 813 95 Nasal 4.0L Cannula 02/28 08 Nasal 4.0L Cannula 02/28 075 96.9 94 20 126/73 96 Nasal 4.0L Cannula 02/28 0631 97 BIPAP 35% 04/11 0606 97.3 95 24 102/60 97 BIPAP 35% 02/28 0551 103 95 02/28 0527 97.3 95 24 102/60 97 BIPAP 35% 02/28 0310 91 97 02/28 0307 90 99 02/28 0023 103 97 02/28 0020 96 100 02/27 2229 78 95 02/27 2114 97.8 100 24 106/58 99 BIPAP 30% 02/27 1908 87 26 105/66 96 BIPAP 30% 02/27 1820 83 96 02/27 1803 97 Nasal 4.0L Cannula 02/27 1730 98.2 115 22 104/67 100 Room Air Intake & Output 02/28 1600 02/28 0802/28 0000 02/27 1600 02/27 0000 Intake Total Output Total Balance Patient 180 lb 180 lb Weight Weight Reported by Patient Measurement Method Physical Exam: This is a middle-aged chronically ill appearing man mildly dyspneic. HEENT exam grossly normal Chest markedly decreased breath sounds, a few coarse rales in the bases Heart irregular, moderate rate, no murmurs Abdomen benign Extremities 1-2+ edema, decreased pulses Labs/Sridhar Results: Laboratory Tests 02/28 02/27 02/27 0523 2200 2110 Blood Gas pH (7.35 - 7.45 PH) 7.30 *L pCO2 (35 - 45 TORR) 59 H pO2 (80 - 100 TORR) 73 L HCO3 (21 - 28 MEQ/L) 29 H ABG O2 Sat (Measured) (>96.0 %) 94.0 L Carboxyhemoglobin (1.5 - 5.0 %) 1.0 L O2 Concentration % 30% Respiration Rate (BPM) 24 O2 Delivery Method BIPAP Vent Mode S/T Expiratory Pressure (CM H2O P) 4 Inspiratory Pressure (CM H2O P) 14 Chemistry Sodium (137 - 145 mmol/L) 143 Potassium (3.5 - 5.1 mmol/L) 4.5 Chloride (98 - 107 mmol/L) 103 Carbon Dioxide (22 - 30 mmol/L) 28 Anion Gap (5 - 16) 12 BUN (9 - 20 mg/dL) 25 H Creatinine (0.7 - 1.2 mg/dL) 1.3 H Estimated GFR (>60 ml/min) 55 L BUN/Creatinine Ratio (7 - 25 %) 19.2 Lactic Acid (0.7 - 2.1 mmol/L) 0.6 L Hematology CBC w Diff MAN DIFF ORDERED WBC (4.8 - 10.8 /CUMM) 5.0 RBC (4.70 - 6.10 /CUMM) 2.99 L Hgb (14.0 - 18.0 G/DL) 8.2 L Hct (42 - 52 %) 25.8 L MCV (80.0 - 94.0 FL) 86.2 MCH (27.0 - 31.0 PG) 27.4 MCHC (33.0 - 37.0 G/DL) 31.8 L RDW (11.5 - 14.5 %) 17.1 H Plt Count (130 - 400 /CUMM) 241 MPV (7.4 - 10.4 FL) 8.6 Gran % (42.2 - 75.2 %) 93.6 H Lymphocytes % (20.5 - 51.1 %) 5.7 L Monocytes % (1.7 - 9.3 %) 0.7 L Eosinophils % (0 - 5 %) 0 Basophils % (0.0 - 2.0 %) 0 Absolute Granulocytes (1.4 - 6.5 /CUMM) 4.7 Segmented Neutrophils (42.2 - 75.2 %) 91 H Absolute Lymphocytes (1.2 - 3.4 /CUMM) 0.3 L Lymphocytes (20.5 - 51.1 %) 8 L Monocytes (1.7 - 9.3 %) 1 L Absolute Monocytes (0.10 - 0.60 /CUMM) 0 L Absolute Eosinophils (0.0 - 0.7 /CUMM) 0 Absolute Basophils (0.0 - 0.2 /CUMM) 0 Platelet Estimate (ADEQUATE) ADEQUATE Polychromasia 1+ Hypochromic-Microcytic 1+ Poikilocytosis 1+ Basophilic Stippling 1+ Ovalocytes 1+ Miscellaneous Phlebotomy Draw Site LEFT RADIAL Other Body Source Fld Total RBCs Counted (%) 100 02/27 02/27 1750 1745 Blood Gas pH (7.35 - 7.45 PH) 7.27 *L pCO2 (35 - 45 TORR) 62 *H pO2 (80 - 100 TORR) 95 HCO3 (21 - 28 MEQ/L) 28 ABG O2 Sat (Measured) (>96.0 %) 96.0 Carboxyhemoglobin (1.5 - 5.0 %) 0.3 L O2 Concentration % 4L O2 Delivery Method NC Chemistry Sodium (137 - 145 mmol/L) 143 Potassium (3.5 - 5.1 mmol/L) 4.3 Chloride (98 - 107 mmol/L) 101 Carbon Dioxide (22 - 30 mmol/L) 29 Anion Gap (5 - 16) 13 BUN (9 - 20 mg/dL) 23 H Creatinine (0.7 - 1.2 mg/dL) 1.3 H Estimated GFR (>60 ml/min) 55 L BUN/Creatinine Ratio (7 - 25 %) 17.7 Glucose (65 - 99 mg/dL) 213 H Lactic Acid (0.7 - 2.1 mmol/L) 1.2 Calcium (8.4 - 10.2 mg/dL) 8.9 Magnesium (1.6 - 2.3 mg/dL) 2.1 Total Bilirubin (0.2 - 1.3 mg/dL) 0.6 AST (17 - 59 U/L) 9 L ALT (21 - 72 U/L) 26 Alkaline Phosphatase (< 127 U/L) 78 Troponin I (<0.11 ng/ml) 0.04 Xwc-W-Frqxtpdqocl Pept (<125 pg/mL) 05603 H Total Protein (6.3 - 8.2 g/dL) 5.9 L Albumin (3.5 - 5.0 g/dL) 3.3 L Globulin (1.9 - 4.2 gm/dL) 2.6 Albumin/Globulin Ratio (1.1 - 2.2 %) 1.3 Coagulation D-Dimer High Sensitivty (0 - 243 ng/ml) 448 H Hematology CBC w Diff NO MAN DIFF REQ WBC (4.8 - 10.8 /CUMM) 11.2 H RBC (4.70 - 6.10 /CUMM) 3.32 L Hgb (14.0 - 18.0 G/DL) 8.9 L Hct (42 - 52 %) 28.6 L MCV (80.0 - 94.0 FL) 86.1 MCH (27.0 - 31.0 PG) 26.7 L MCHC (33.0 - 37.0 G/DL) 31.0 L RDW (11.5 - 14.5 %) 17.5 H Plt Count (130 - 400 /CUMM) 278 MPV (7.4 - 10.4 FL) 8.7 Gran % (42.2 - 75.2 %) 89.3 H Lymphocytes % (20.5 - 51.1 %) 4.6 L Monocytes % (1.7 - 9.3 %) 5.8 Eosinophils % (0 - 5 %) 0.3 Basophils % (0.0 - 2.0 %) 0 Absolute Granulocytes (1.4 - 6.5 /CUMM) 10.0 H Absolute Lymphocytes (1.2 - 3.4 /CUMM) 0.5 L Absolute Monocytes (0.10 - 0.60 /CUMM) 0.7 H Absolute Eosinophils (0.0 - 0.7 /CUMM) 0 Absolute Basophils (0.0 - 0.2 /CUMM) 0 Miscellaneous Phlebotomy Draw Site LEFT RADIAL Diagnostic Data EKG Results Afib 119, Diffuse IVCD, PVC CXR Results PATIENT: COURTNEY VIEIRA PRESENT AGE: 67 PATIENT ACCOUNT NO: [id number] : 49 LOCATION: [facility] ORDERING PHYSICIAN: Greg ALARCON SERVICE DATE: 02/27/18 EXAM TYPE: RAD - XRY-PORTABLE CHEST XRAY EXAMINATION: XR PORTABLE CHEST CLINICAL INFORMATION: Shortness of breath. COMPARISON: Chest x-ray 12/25/2017 CTA of chest 12/25/2017. TECHNIQUE: Portable frontal view of the chest was obtained. 6:59 PM FINDINGS: There is emphysematous hyperinflation of lungs. The heart size is enlarged. There are calcification of the aortic arch. There is diffuse increased interstitial lung markings which are more pronounced than the prior chest x-ray 12/25/2017 with mild central hilar vascular prominence. These are findings of interstitial edema and mild pulmonary vascular congestion. There is blunting of the right costophrenic angle similar to prior chest x-ray. There is no pneumothorax. IMPRESSION: Increased pulmonary vascularity of mild congestive heart failure, interstitial edema. Chronic blunting of the right costophrenic angle of pleural effusion and/or pleural thickening. DICTATED BY: Kamlesh Madrigal MD DATE/TIME DICTATED:02/27/181953 [employer] INSPECTOR:LINDY DATE/TIME TRANSCRIBED:02/27/181953 CONFIDENTIAL, DO NOT COPY WITHOUT APPROPRIATE AUTHORIZATION. <Electronically signed in Other Vendor System> SIGNED BY: Kamlesh Madrigal MD 02/27/181999 Assessment/Plan Assessment/Plan Mr. Vieira presents with recurrent congestive heart failure. He is also a little tachycardic. His Lasix dose at home is 40 mg 3 times a day, which is probably not an ideal dose. He is only on diltiazem for rate control. I recommend Lasix 60 mg IV twice daily for now. I recommend continuing on his diltiazem but adding low dose of Lopressor for better rate control. I think he can tolerate this from a pulmonary standpoint. I would start with 25 mg twice daily. He needs another echocardiogram as his last one was over 6 months ago, and he has shown decreasing left ventricular systolic function. We might consider additional medication for CHF control such as Entresto, depending on the results of the echocardiogram. A pulmonary consultation might be useful. He is well known to Dr. So. Consult Acknowledgment - Thank you for your consult request.
[2018-02-28 10:08] VITALS: BP 114/59
--- NOTE | 2018-02-28 10:27 | PN- Housestaff ---
Chuck CR,[place] 02/28/18 1027: Subjective Follow-up For: 1. Acute on Chronic Respiratory Failure 2. HCAP - new RLL infiltrate on imaging. 3. COPD Exacerbation 4. CHF Exacerbation 5. History of A.fib on Xarelto. 6. History of AAA s/p endovascular repair Complaints: no complaints Tele-Events Since Last Visit: afib no events Subjective: patient states he feels fine as long as he does not exert himself. no other complaints save for lower extremity edema. Review of Systems Constitutional: Reports: no symptoms. EENTM: Reports: no symptoms. Cardiovascular: Reports: no symptoms. Respiratory: Reports: short of breath. Gastrointestinal: Reports: no symptoms. Genitourinary: Reports: no symptoms. Musculoskeletal: Reports: no symptoms. Skin: Reports: no symptoms. Objective Last 24 Hrs of Vital Signs/I&O Vital Signs Date Time Temp Pulse Resp B/P B/P Pulse O2 O2 Flow FiO2 Mean Ox Delivery Rate 02/28 1640 98 Nasal 4.0L Cannula 02/28 1600 94 Nasal 4.0L Cannula 02/28 1505 97.6 84 22 120/78 93 Nasal 4.0L Cannula 02/28 1422 92 20 92/63 99 Nasal 4.0L Cannula 02/28 1346 97.7 84 20 98/62 98 Nasal 4.0L Cannula 02/28 1344 97.7 92 20 98/62 02/28 1008 97.1 100 22 114/59 96 Nasal 4.0L Cannula 02/28 1001 97.1 100 22 114/59 96 Nasal 2.0L Cannula 02/28 0828 96.9 94 20 126/73 96 Nasal 4.0L Cannula 02/28 0819 96 Nasal 4.0L Cannula 02/28 0813 95 Nasal 4.0L Cannula 02/28 0800 Nasal 4.0L Cannula 02/28 0757 96.9 94 20 126/73 96 Nasal 4.0L Cannula 02/28 0631 97 BIPAP 35% 02/28 0606 97.3 95 24 102/60 97 BIPAP 35% 02/28 0551 103 95 02/28 0527 97.3 95 24 102/60 97 BIPAP 35% 02/28 0310 91 97 02/28 0307 90 99 02/28 0023 103 97 02/28 0020 96 100 02/27 2229 78 95 02/27 2114 97.8 100 24 106/58 99 BIPAP 30% 02/27 1908 87 26 105/66 96 BIPAP 30% Intake & Output 02/28 1600 02/28 0800 02/28 0000 Intake Total Output Total 100 Balance -100 Output, Urine 100 Patient 184 lb 180 lb 180 lb Weight Weight Reported by Patient Measurement Method Physical Exam General Appearance: Alert, Oriented X3, Cooperative, No Acute Distress Skin: No Rashes, No Breakdown, No Significant Lesion Skin Temp/Moisture Exam: Warm/Dry Sepsis Skin Exam (color): Normal for Ethnicity HEENT: Atraumatic, PERRLA, EOMI, Mucous Membr. moist/pink Cardiovascular: Normal S1, Normal S2, No Murmurs Lungs: wheezing and distant air sounds. Abdomen: Normal Bowel Sounds, Soft, No Tenderness, No Hepatospenomegaly, No Masses Neurological: Normal Speech Extremities: No Clubbing, No Cyanosis, Normal Pulses, No Tenderness/Swelling, lower ext edema to mid calf Vascular: Normal Pulses, Pulses Symmetrical Current Medications: Current Medications Sig/Eve Start time Last Medication Dose Route Stop Time Status Admin Albuterol Sulfate 3 ML EVERY 4 HRS/AWAKE 02/28 1200 AC 02/28 INH 1640 Aspirin 81 MG DAILY 02/28 1000 AC 02/28 PO 0956 Atorvastatin Calcium 10 MG DAILY 02/28 1000 AC 02/28 PO 0956 Azithromycin 500 MG ONCE ONE 02/27 2015 DC 02/27 Dextrose/Water 250 ML IV 02/27 Ceftazidime 0 .STK-MED ONE 02/28 0542 DC .ROUTE Ceftazidime 1,000 MG ONCE ONE 02/28 0415 DC 02/28 IV 02/28 0416 0544 Diltiazem HCl 480 MG DAILY 02/28 1000 AC 02/28 PO 0956 Ferrous Sulfate 325 MG BID 02/28 1000 AC 02/28 PO 0956 Furosemide 60 MG 7:30 AM, & 4:30 PM 02/28 1630 AC 02/28 IV 1710 Furosemide 0 .STK-MED ONE 02/28 1920 DC IV Furosemide 0 .STK-MED ONE 02/27 1919 DC IV Furosemide 60 MG ONCE ONE 02/27 1915 DC 02/27 IV PUSH 02/27 Insulin Aspart 0 TIDAC 02/28 0800 AC 02/28 SC 1710 Loperamide HCl 4 MG BID PRN 02/28 0415 AC PO Methylprednisolone 40 MG Q8 02/28 0600 AC 02/28 IV 1343 Metoprolol Tartrate 0 .STK-MED ONE 02/28 1340 DC PO Metoprolol Tartrate 25 MG BID 02/28 1324 AC 02/28 PO 1344 Omeprazole 20 MG DAILY AC 02/28 0700 AC 02/28 PO 0544 Omeprazole 0 .STK-MED ONE 02/28 0542 DC PO Rivaroxaban 20 MG DAILY 02/28 1000 AC 02/28 PO 0956 Vancomycin HCl 1,000 MG ONCE ONE 02/28 0415 DC 02/28 Dextrose/Water 250 ML IV 02/28 514 0544 Last 24 Hrs of Lab/Sridhar Results Last 24 Hrs of Labs/Mics: Laboratory Tests 02/28/18 1114: Troponin I 0.03 02/28/18 0523: Anion Gap 12, Estimated GFR 55 L, BUN/Creatinine Ratio 19.2, CBC w Diff MAN DIFF ORDERED, RBC 2.99 L, MCV 86.2, MCH 27.4, MCHC 31.8 L, RDW 17.1 H, MPV 8.6, Gran % 93.6 H, Lymphocytes % 5.7 L, Monocytes % 0.7 L, Eosinophils % 0, Basophils % 0, Absolute Granulocytes 4.7, Segmented Neutrophils 91 H, Absolute Lymphocytes 0.3 L, Lymphocytes 8 L, Monocytes 1 L, Absolute Monocytes 0 L, Absolute Eosinophils 0, Absolute Basophils 0, Platelet Estimate ADEQUATE, Polychromasia 1+, Hypochromic-Microcytic 1+, Poikilocytosis 1+, Basophilic Stippling 1+, Ovalocytes 1+, Fld Total RBCs Counted 100 02/27/180: pH 7.30 *L, pCO2 59 H, pO2 73 L, HCO3 29 H, ABG O2 Sat (Measured) 94.0 L, Carboxyhemoglobin 1.0 L, O2 Concentration % 30%, Respiration Rate 24, O2 Delivery Method BIPAP, Vent Mode S/T, Expiratory Pressure 4, Inspiratory Pressure 14, Phlebotomy Draw Site LEFT RADIAL 02/27/180: Lactic Acid 0.6 L Microbiology 02/28 527 BLOOD: Blood Culture - RECD 02/29 524 BLOOD: Blood Culture - RECD 02/28 407 LOWER RESP: Respiratory Culture - COLB 02/28 407 LOWER RESP: Gram Stain - COLB Assessment/Plan Assessment: 67-year-old male with a PMHx of chronic hypercarbic respiratory failure, COPD on 4 L of oxygen at baseline at home, with BiPAP at night, HFrEF 30%, A. fib on Xarelto, GERD, TIA, NIDDM, HTN, HLD, AAA s/p endovascular repair last month, who presented with a chief complaint of shortness breath and generalize weakness. Since last discharge patient was feeling good until 7 days ago when he started to feel short of breath, his symptom progressed and became associated with generalize weakness. At baseline he walks more than 40 steps before he feels short of breath however today he was only able to walk 6 steps. He reported feeling tired to the point that he was about to fall. He denies chest pain, cough, fever, chills, palpitation. He denies recent travel or sick contact. He denies fall. He was trying to self medicate with nebulizer but his symptoms did not improve. The patient reported intermittent left lower quadrant pain through the last week. He has chronic diarrhea, but he denies currently active diarrhea as long as he is taken antidiarrheal medication. Vitals and physical examination admission: Temp 98.2, HR 115, BP 104/67, ox 100 on 4 L. HEENT was WNL, CVS Nl s1/s2 with 2/6 systolic murmur without gallops or rubs. Resp decreased air entry over lung bilaterally with significant decreased air entry over the right lung base, crackles at lung base bilaterally with right being more than left, mild wheezing. Abd soft, NT/ND. LE +2 bilateral lower extremity edema up to the knees. Labs and imaging on admission: Leukocytosis up to 11.2, H&H 8.9 & 28.6, plt 278, normal sodium and potassium. Creatinine 1.3(at baseline). BNP 17785. Initial ABG 7.27/62/95/28 improved with BiPAP to 7.30/59/73/29. Venous Doppler was negative for DVT. CXR showed increased pulmonary vascularity and interstitial edema. CTA revealed no PE, emphysematous changes and New focal consolidation at the anterior right lower lobe. Assessment Patient acute on chronic hypercarbic respiratory failure most likely multifactorial secondary to CHF exacerbation and COPD exacerbation. CT is suggestive of pneumonia which is suggested to be healthcare associated pneumonia given that he was admitted last month for AAA repair. The patient be treated with IV Lasix, IV steroid, nebulizer and IV antibiotic. continue his night bipap. Problem list #Acute on chronic hypercarbic respiratory failure most likely secondary to * CHF exacerbation * COPD exacerbation * Healthcare associated pneumonia?? #A. fib on Xarelto #GERD, TIA, NIDDM, HTN, HLD #AAA s/p endovascular repair Plan For CHF exacerbation * follow on tele floor, trops negative. ekg shows afib with rvr, extended qtc with resolution on repeat ekg. * Received IV Lasix 60 mg in ED, continue 60mg iv bid which will help with his breathing and edema as per dr. huynh * Strict Is/Os and daily weights * last echo was 2 months ago and poor study, will repeat For COPD exacerbation and quesionable healthcare associated pneumonia cta chest showed emphysematous changes of lung and interval improvement of left lower lobe infiltrate and new focal consolidation at anterior right lower lobe. * Continue night times BiPAPnad 4L oxygen * Repeat ABG only if symptom got worse * IV Solu-Medrol 40 mg every 8 * TRC/nebulizers * Sputum culture * 1 dose of vancomycin and cefazolin, stop antibiotics as pulmonary does not think this is pneumonia, white count this morning has decreased to normal and patient is afebrile. For A.fib * Continue Xarelto * Continue home dose of Cardizem For GERD, TIA, NIDDM, HTN, HLD * Continue PPI * Hold oral antihyperglycemic and start insulin SS, watch glucose levels, around 200. * Continue home dose of antihypertensive * Continue statin -Heart healthy diet starting the morning(currently on BiPAP) -DVT Ppx with ALPS and Xarelto -FC Problem List: 1. History of AAA (abdominal aortic aneurysm) repair 2. Respiratory failure 3. Atrial fibrillation with rapid ventricular response 4. Lower extremity edema 5. COPD (chronic obstructive pulmonary disease) 6. CHF (congestive heart failure) 7. HTN (hypertension) 8. Hyperlipidemia Pain Ratin Pain Location: na Pain Goal: Remain pain free Pain Plan: na Tomorrow's Labs & Rationales: cbc bep RadhaSangeeta 02/28/18 1409: Attending MD Review Statement Attending Statement Attending MD Statement: examined this patient, discuss w/resident/PA/FRONT OFFICE ASSOCIATE, agreed w/resident/PA/FRONT OFFICE ASSOCIATE, discussed with family, reviewed EMR data (avail), discussed with nursing, discussed with case mgmt, reviewed images, amended to note Attending Assessment/Plan: Patient seen/examned bedside. Patient with pmh of chf and copd comes with worsening shortness of breath multifactorial origin with possible CHF acute on chronic exacerbation and COPD exacerbation with requirement of bipap on admission. Patient admit to telemetry monitoring. Serial cardiac enzymes negative for IN. Cardiology and pulmonary consulted. Patient on iv lasix 60 mg bid, iv steroids, oxygen supplementation, NIPPV at night, bronchodilators, Azithromycin. Follow up cultures sent on admisison, ECHO f/u. Follow cardiology/ pulmonary recs. Cont current care..
--- NOTE | 2018-02-28 11:34 | Cons- Pulmonary ---
General Information and HPI Consulting Request Date of Consult: 02/28/18 Requested By: Dr. Cruz Reason for Consult: dyspnea Source of Information: patient Exam Limitations: no limitations History of Present Illness: 67 year old man. Known to me from . 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 Recent endoleak repair. Presents with leg edema and dyspnea. Few days worsening dyspnea and cough (non productive). ROS is negative for fever /chills,recent URI, sick contacts or travel. wbc 11.2, now 5, no fevers. CTA with interval improvement of LLL, ?infiltrate RLL - can represent fluid/ atelectasis, increased interstitial opacities. Overall feeling better. Allergies/Medications Allergies: Coded Allergies: NO KNOWN ALLERGIES (02/05/16) Home Med List: [ACETAZOLAMIDE ER] 500 MG 1 PO DAILY DIRECTED (Reported) Albuterol Sulfate (Proair Hfa) 90 MCG HFA.AER.AD 2 PUF INH Q4-6 PRN PRN SHORTNESS OF BREATH (Reported) Albuterol Sulfate 2.5 MG/3 ML (0.083 %) VIAL.NEB 1 Vial INH/ABILIO Q4P PRN SHORTNESS OF BREATH (Reported) Aspirin (Aspirin*) 81 MG TAB.CHEW 1 TAB PO DAILY HEART HEALTH (Reported) Atorvastatin Calcium (Lipitor) 10 MG TABLET 1 TAB PO DAILY CHOLESTEROL ( Reported) Budesonide/Formoterol Fumarate (Symbicort 160-4.5 Mcg Inhaler) 160 MCG-4.5 MCG/ ACTUATION HFA.AER.AD 2 PUF INH BID SHORTNESS OF BREATH (Reported) Cyanocobalamin (Vitamin B-12) (B-12) 1,000 MCG TABLET 1 TAB PO DAILY VITAMIN SUPPORT (Reported) Diltiazem HCl (Cardizem Cd) 240 MG CAP.ER.24H 480 MG PO DAILY Atrial fibrillation Ferrous Sulfate 325 MG TABLET.DR 325 MG PO BID Iron supplement Furosemide (Lasix) 40 MG TABLET 1 TAB PO BID Water pill Loperamide HCl (Loperamide) 2 MG CAPSULE 2 CAP PO BID PRN ANTI-DIARRHEAL ( Reported) Metformin HCl (Glucophage) 1,000 MG TABLET 1 TAB PO BID DIABETES (Reported) [NATURE MADE IRON] 65 MG TAB 4 TAB PO QHS BLOOD HEALTH (Reported) Oxycodone HCl/Acetaminophen (Percocet 5-325 MG Tablet) 5 MG-325 MG TABLET 1-2 TAB PO Q4-6 PRN PAIN tylenol alternatively. do not combine. Pantoprazole Sodium (Protonix) 40 MG TABLET.DR 1 TAB PO DAILY ACID REFLUX ( Reported) Prednisone 10 MG TABLET 1 TAB PO SEE ADMIN CRITERIA COPD TAKE 3 TABS X 3 DAYS 2 TABS X 3 DAYS 1 TAB X 3 DAYS THEN STOP.... Rivaroxaban (Xarelto) 20 MG TABLET 1 TAB PO DAILY BLOOD THINNER (Reported) with food Tiotropium Chester (Spiriva) 18 MCG CAP.W.DEV 1 CAP INH DAILY SHORTNESS OF BREATH (Reported) Current Medications: Current Medications Sig/Eve Start time Last Medication Dose Route Stop Time Status Admin Albuterol Sulfate 3 ML EVERY 4 HRS/AWAKE 02/28 1200 AC 02/28 INH 0810 Albuterol Sulfate 3 ML ONCE ONE 02/27 1745 DC 02/27 INH 02/27 1746 182 Aspirin 81 MG DAILY 02/28 1000 AC 02/28 PO 0956 Atorvastatin Calcium 10 MG DAILY 02/28 1000 AC 02/28 PO 0956 Azithromycin 500 MG ONCE ONE 02/27 2015 DC 02/27 Dextrose/Water 250 ML IV 02/27 Ceftazidime 0 .STK-MED ONE 02/28 0542 DC .ROUTE Ceftazidime 1,000 MG ONCE ONE 02/28 0415 DC 02/28 IV 02/28 0416 0544 Diltiazem HCl 480 MG DAILY 02/28 1000 AC 02/28 PO 0956 Ferrous Sulfate 325 MG BID 02/28 1000 AC 02/28 PO 0956 Furosemide 60 MG 7:30 AM, & 4:30 PM 02/28 1630 AC IV Furosemide 0 .STK-MED ONE 02/28 1920 DC IV Furosemide 0 .STK-MED ONE 02/27 1919 DC IV Furosemide 60 MG ONCE ONE 02/27 1915 DC 02/27 IV PUSH 02/27 Insulin Aspart 0 TIDAC 02/28 0800 AC 02/28 SC 0723 Ipratropium [place] 2.5 ML ONCE ONE 02/27 174 DC 02/27 INH 02/27 1746 182 Loperamide HCl 4 MG BID PRN 02/28 415 AC PO Methylprednisolone 40 MG Q8 02/28 0600 AC 02/28 IV 0555 Methylprednisolone 0 .STK-MED ONE 02/27 1814 DC .ROUTE Methylprednisolone 125 MG ONCE ONE 02/27 1745 DC 02/27 IV 02/27 1746 1810 Omeprazole 20 MG DAILY AC 02/28 0700 AC 02/28 PO 0544 Omeprazole 0 .STK-MED ONE 02/28 0542 DC PO Rivaroxaban 20 MG DAILY 02/28 1000 AC 02/28 PO 0956 Vancomycin HCl 1,000 MG ONCE ONE 02/285 DC 02/28 Dextrose/Water 250 ML IV 02/28 0514 0544 Review of Systems Comments 18 point review of systems was performed and reviewed. Please see pertinent positives and pertinent negatives in the HPI. Otherwise ROS is negative. 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 FATHER, ; Cause: Myocardial infarct. SISTER, ; Cause: Myocardial infarct. Psychosocial History Where Do You Live? Home Who Do You Live With? self Services at Home: None Primary Language: Indonesian Smoking Status: Former Smoker Functional Ability ADLs Independent: dressing, eating, toileting, bathing. Ambulation: independent IADLs Independent: shopping, housework, finances, food prep, telephone, transportation , medication admin. Exam & Diagnostic Data Last 24 Hrs of Vital Signs/I&O Vital Signs Date Time Temp Pulse Resp B/P B/P Pulse O2 O2 Flow FiO2 Mean Ox Delivery Rate 02/28 1008 97.1 100 22 114/59 96 Nasal 4.0L Cannula 02/28 1001 97.1 100 22 114/59 96 Nasal 2.0L Cannula 02/28 0828 96.9 94 20 126/73 96 Nasal 4.0L Cannula 02/28 0819 96 Nasal 4.0L Cannula 02/28 0813 95 Nasal 4.0L Cannula 02/28 0800 Nasal 4.0L Cannula 02/28 0757 96.9 94 20 126/73 96 Nasal 4.0L Cannula 02/28 0631 97 BIPAP 35% 02/28 0606 97.3 95 24 102/60 97 BIPAP 35% 02/28 0551 103 95 02/28 0527 97.3 95 24 102/60 97 BIPAP 35% 02/28 0310 91 97 02/28 0307 90 99 02/28 0023 103 97 02/28 0020 96 100 02/27 2229 78 95 02/27 2114 97.8 100 24 106/58 99 BIPAP 30% 02/27 1908 87 26 105/66 96 BIPAP 30% 02/27 1820 83 96 02/27 1803 97 Nasal 4.0L Cannula 02/27 1730 98.2 115 22 104/67 100 Room Air Intake & Output 02/28 1600 02/28 0800 02/28 0000 Intake Total Output Total Balance Patient 184 lb 180 lb 180 lb Weight Weight Reported by Patient Measurement Method Physical Exam Other Physical Findings: awake and alert no distress bilateral rhonchi leg edema 2+ normal bs Last 48 Hrs of Labs/Sridhar: Laboratory Tests 02/28/18 1114: Troponin I Pending 02/28/18 0523: Anion Gap 12, Estimated GFR 55 L, BUN/Creatinine Ratio 19.2, CBC w Diff MAN DIFF ORDERED, RBC 2.99 L, MCV 86.2, MCH 27.4, MCHC 31.8 L, RDW 17.1 H, MPV 8.6, Gran % 93.6 H, Lymphocytes % 5.7 L, Monocytes % 0.7 L, Eosinophils % 0, Basophils % 0, Absolute Granulocytes 4.7, Segmented Neutrophils 91 H, Absolute Lymphocytes 0.3 L, Lymphocytes 8 L, Monocytes 1 L, Absolute Monocytes 0 L, Absolute Eosinophils 0, Absolute Basophils 0, Platelet Estimate ADEQUATE, Polychromasia 1+, Hypochromic-Microcytic 1+, Poikilocytosis 1+, Basophilic Stippling 1+, Ovalocytes 1+, Fld Total RBCs Counted 100 02/27/18 2200: pH 7.30 *L, pCO2 59 H, pO2 73 L, HCO3 29 H, ABG O2 Sat (Measured) 94.0 L, Carboxyhemoglobin 1.0 L, O2 Concentration % 30%, Respiration Rate 24, O2 Delivery Method BIPAP, Vent Mode S/T, Expiratory Pressure 4, Inspiratory Pressure 14, Phlebotomy Draw Site LEFT RADIAL 02/27/182109: Lactic Acid 0.6 L 02/27/18 1750: pH 7.27 *L, pCO2 62 *H, pO2 95, HCO3 28, ABG O2 Sat (Measured) 96.0, Carboxyhemoglobin 0.3 L, O2 Concentration % 4L, O2 Delivery Method NC, Phlebotomy Draw Site LEFT RADIAL 02/27/18 1745: Anion Gap 13, Estimated GFR 55 L, BUN/Creatinine Ratio 17.7, Glucose 213 H, Lactic Acid 1.2, Calcium 8.9, Magnesium 2.1, Total Bilirubin 0.6, AST 9 L, ALT 26, Alkaline Phosphatase 78, Troponin I 0.04, Pnp-C-Swritrgdjnu Pept 94316 H, Total Protein 5.9 L, Albumin 3.3 L, Globulin 2.6, Albumin/Globulin Ratio 1.3, D-Dimer High Sensitivty 448 H, CBC w Diff NO MAN DIFF REQ, RBC 3.32 L, MCV 86.1, MCH 26.7 L, MCHC 31.0 L, RDW 17.5 H, MPV 8.7, Gran % 89.3 H, Lymphocytes % 4.6 L, Monocytes % 5.8, Eosinophils % 0.3, Basophils % 0, Absolute Granulocytes 10.0 H, Absolute Lymphocytes 0.5 L, Absolute Monocytes 0.7 H, Absolute Eosinophils 0, Absolute Basophils 0 Microbiology 02/27 1750 NASOPHARYN: Influenza Virus A & B Rapid Smear - COMP Assessment/Plan Impression/Plan: Impression 67 year old man CHF exacerbation along with acute COPD exacerbation no obvious evidence of pneumonia Plan -stop abx -observe -monitor wbc, fevers, can check sputum cx -solumedrol 40mg iv q8h -diuresis -ins/outs -daily weights -cardiology input -nocturnal bipap DVT prophylaxis at all times Consult Acknowledgment - Thank you for your consult request.
[2018-02-28 15:05] VITALS: BP 120/78
[2018-02-28 22:34] VITALS: BP 120/60
[2018-03-01 06:38] VITALS: BP 100/70
[2018-03-01 07:50] LABS: ABSOLUTE BASOPHIL COUNT 0 /CUMM (0.0-0.2); ABSOLUTE EOSINOPHIL COUNT 0 /CUMM (0.0-0.7); ABSOLUTE LYMPH COUNT 0.4 /CUMM (1.2-3.4); BASOPHIL % 0 % (0.0-2.0); EOSINOPHIL % 0.1 % (0-5)
[2018-03-01 07:59] LABS: ABSOLUTE GRANULOCYTE CT 7.9 /CUMM (1.4-6.5); ABSOLUTE MONOCYTE COUNT 0.2 /CUMM (0.10-0.60); HEMATOCRIT 25.3 % (42-52); MEAN CORPUSCULAR HGB 28.1 PG (27.0-31.0); MEAN CORPUSCULAR HGB CONC 32.1 G/DL (33.0-37.0); MEAN CORPUSCULAR VOLUME 87.4 FL (80.0-94.0); MEAN PLATELET VOLUME 9.1 FL (7.4-10.4); PLATELET COUNT 300 /CUMM (130-400); RBC DISTRIBUTION WIDTH 17.2 % (11.5-14.5)
[2018-03-01 08:07] LABS: WHITE BLOOD CELL COUNT 8.5 /CUMM (4.8-10.8)
--- NOTE | 2018-03-01 08:14 | PN- Housestaff ---
Chuck CR,Adelaide 03/01/18 0814: Subjective Follow-up For: 1. Acute on Chronic Respiratory Failure 2/2 3. COPD Exacerbation 4. CHF Exacerbation 5. History of A.fib on Xarelto. 6. History of AAA s/p endovascular repair Complaints: no complaints Tele-Events Since Last Visit: PA inhibitor rate of 78-95 with triplets and PVCs on off throughout the night. Subjective: Patient states that he woke up at 4 AM breath. He states that his Symbicort and Kariva have not been ordered and that he usually takes them every day. Review of Systems Constitutional: Reports: no symptoms. Cardiovascular: Reports: no symptoms. Respiratory: Reports: short of breath, wheezing. Gastrointestinal: Reports: no symptoms. Genitourinary: Reports: no symptoms. Musculoskeletal: Reports: no symptoms. Skin: Reports: no symptoms. Objective Last 24 Hrs of Vital Signs/I&O Vital Signs Date Time Temp Pulse Resp B/P B/P Pulse O2 O2 Flow FiO2 Mean Ox Delivery Rate 03/01 1408 97.8 74 20 126/70 96 Nasal 3.5L Cannula 03/01 0914 96 Nasal 3.5L Cannula 03/01 0830 94 Nasal 3.5L Cannula 03/01 0822 80 24 122/76 03/01 0638 97.2 89 22 100/70 97 Nasal Cannula 03/01 0000 CPAP 02/28 2241 103 108/70 02/28 2234 97.6 105 20 120/60 96 Nasal 3.5L Cannula 02/28 1640 98 Nasal 4.0L Cannula 02/28 1600 94 Nasal 4.0L Cannula Intake & Output 03/01 1600 03/01 0800 03/01 0000 Intake Total 400 120 395 Output Total 700 400 350 Balance -300 -280 45 Intake, IV 20 Intake, Oral 400 120 375 Number 1 Bowel Movements Output, Urine 700 400 350 Patient 188 lb Weight Weight Bed scale Measurement Method Physical Exam General Appearance: Alert, Oriented X3, Cooperative, No Acute Distress Skin: No Rashes, No Breakdown, No Significant Lesion Skin Temp/Moisture Exam: Warm/Dry Sepsis Skin Exam (color): Normal for Ethnicity HEENT: Atraumatic, PERRLA, EOMI, Mucous Membr. moist/pink Cardiovascular: Normal S1, Normal S2 Lungs: mild wheezing throughout and distant breath sounds in right lower lobe Abdomen: Normal Bowel Sounds, Soft, No Tenderness, No Hepatospenomegaly, No Masses Neurological: Normal Speech Current Medications: Current Medications Sig/Eve Start time Last Medication Dose Route Stop Time Status Admin Albuterol Sulfate 3 ML EVERY 4 HRS/AWAKE 02/28 1200 AC 03/01 INH 1204 Aspirin 81 MG DAILY 02/28 1000 AC 03/01 PO 0824 Atorvastatin Calcium 10 MG DAILY 02/28 1000 AC 03/01 PO 0824 Budesonide/ 2 PUF BID 03/01 0900 AC 03/01 Formoterol Fumarate INH 1044 Diltiazem HCl 480 MG DAILY 02/28 1000 AC 03/01 PO 0823 Ferrous Sulfate 325 MG BID 02/28 1000 AC 03/01 PO 0817 Furosemide 60 MG 7:30 AM, & 4:30 PM 02/28 1630 DC 03/01 IV 03/01 1000 0759 Insulin Aspart 0 TIDAC 02/28 0800 AC 03/01 SC 1146 Loperamide HCl 4 MG BID PRN 02/28 0415 AC PO Methylprednisolone 40 MG Q12 03/01 1000 AC IV Methylprednisolone 40 MG Q8 02/28 0600 DC 03/01 IV 0612 Metoprolol Tartrate 25 MG BID 02/28 1324 AC 03/01 PO 0822 Omeprazole 20 MG DAILY AC 02/28 0700 AC 03/01 PO 0612 Rivaroxaban 20 MG DAILY 02/28 1000 AC 03/01 PO 0824 Tiotropium [place] 1 PUF DAILY 03/01 0900 AC 03/01 INH 0945 Last 24 Hrs of Lab/Sridhar Results Last 24 Hrs of Labs/Mics: Laboratory Tests 03/01/18 0658: Anion Gap 13, Estimated GFR 40 L, BUN/Creatinine Ratio 25.3 H, CBC w Diff NO MAN DIFF REQ, RBC 2.90 L, MCV 87.4, MCH 28.1, MCHC 32.1 L, RDW 17.2 H, MPV 9.1, Gran % 92.6 H, Lymphocytes % 4.5 L, Monocytes % 2.8, Eosinophils % 0.1, Basophils % 0, Absolute Granulocytes 7.9 H, Absolute Lymphocytes 0.4 L, Absolute Monocytes 0.2, Absolute Eosinophils 0, Absolute Basophils 0 Assessment/Plan Assessment: 67-year-old male with a PMHx of chronic hypercarbic respiratory failure, COPD on 4 L of oxygen at baseline at home, with BiPAP at night, HFrEF 30%, A. fib on Xarelto, GERD, TIA, NIDDM, HTN, HLD, AAA s/p endovascular repair last month, who presented with a chief complaint of shortness breath and generalize weakness. Since last discharge patient was feeling good until 7 days ago when he started to feel short of breath, his symptom progressed and became associated with generalize weakness. At baseline he walks more than 40 steps before he feels short of breath however today he was only able to walk 6 steps. He reported feeling tired to the point that he was about to fall. He denies chest pain, cough, fever, chills, palpitation. He denies recent travel or sick contact. He denies fall. He was trying to self medicate with nebulizer but his symptoms did not improve. The patient reported intermittent left lower quadrant pain through the last week. He has chronic diarrhea, but he denies currently active diarrhea as long as he is taken antidiarrheal medication. Problem list #Acute on chronic hypercarbic respiratory failure most likely secondary to * CHF exacerbation * COPD exacerbation #A. fib on Xarelto #GERD, TIA, NIDDM, HTN, HLD #AAA s/p endovascular repair Plan For CHF exacerbation: Patient's lower extremity edema is resolving and he is requiring less oxygen. * follow on tele floor, trops negative. ekg shows afib with rvr, extended qtc with resolution on repeat ekg. * 60mg iv bid which will help with his breathing and edema as per dr. huynh. As patient has worsening renal function we will stop Lasix for today. * Strict Is/Os and daily weights * Patient's echocardiogram shows an EF of 30-35%. Additionally he has moderate mitral regurgitation and moderate tricuspid regurgitation. Patient will need better control of his congestive heart failure with either entresto, spironolactone, PA inhibitor, AICD. We will defer to cardiology for selection but of note patient's blood pressure may not tolerate antihypertensives as it is 100/70. Another option is Corlanor. Another option is sodium-glucose transporter-2 (SGLT-2) inhibitors in this patient who also has diabetes. * Follow up with repeat BEP this evening for worsening renal function. For COPD exacerbation * Continue night time bipap and 3.5 L to 4L oxygen * Repeat ABG only if symptoms worsen * IV Solu-Medrol 40 mg every 8 now reduced to every 12 hours. * TRC/nebulizers and Symbicort and Spiriva * Sputum culture * 1 dose of vancomycin and cefazolin, stopped antibiotics as pulmonary does not think this is pneumonia, white count is normal, afebrile For A.fib * Continue Xarelto * Continue home dose of Cardizem For GERD, TIA, NIDDM, HTN, HLD * Continue PPI * Hold oral antihyperglycemic and start insulin SS, watch glucose levels * Continue Lopressor 25 mg twice a day * Continue statin -Heart healthy diet -DVT Ppx with ALPS and Xarelto -FC Problem List: 1. Respiratory failure 2. Atrial fibrillation with rapid ventricular response 3. HTN (hypertension) 4. CHF (congestive heart failure) 5. Hyperlipidemia 6. COPD (chronic obstructive pulmonary disease) Pain Ratin Pain Location: NA Pain Goal: Remain pain free Pain Plan: na Tomorrow's Labs & Rationales: CBC, BEP Sangeeta Garcia 03/01/18 1152: Attending MD Review Statement Attending Statement Attending MD Statement: examined this patient, discuss w/resident/PA/INSURANCE PROFESSIONAL, agreed w/resident/PA/INSURANCE PROFESSIONAL, discussed with family, reviewed EMR data (avail), discussed with nursing, discussed with case mgmt, reviewed images, amended to note Attending Assessment/Plan: Patient with pmh of chf and copd comes with worsening shortness of breath multifactorial origin with possible CHF acute on chronic exacerbation and COPD exacerbation with requirement of bipap on admission. Conitnue telemetry monitoring. Serial cardiac enzymes negative for NM. Cardiology and pulmonary consulted. Patient feeling better. His Cr is 1.3>>1.7 Patient on iv lasix, Taper iv steroids, oxygen supplementation, NIPPV at night, bronchodilators, Azithromycin. Follow up cultures sent on admisison remain negative so far, ECHO f/u. Follow cardiology/pulmonary recs. Decrease lasix in view of his creatinine elevation. Monitor creatinine. Cont current care.. Cont current care..
[2018-03-01 08:39] LABS: GRANULOCYTE % 92.6 % (42.2-75.2)
--- NOTE | 2018-03-01 10:10 | ECHOCARDIOGRAM REPORT ---
COURTNEY MURCIA Age: 67 : 1950 Gender: M Exam Date: 02/28/2018 18:51 Exam Location: [address] Ht (in): 71 Wt (lb): 184 BSA: 2.05 BP: 92 / 63 Ordering Physician: Adelaide Woods MD Referring Physician: Landry Walton MD Chief, SoC Technologist: Soni Schwartz [facility] Room Number: 178 Indications: HEART FAILURE Rhythm: Atrial fibrillation Technical Quality: Good FINDINGS Left Ventricle Mild left ventricular dilatation. Moderate concentric left ventricular hypertrophy. Moderate to markedly reduced global left ventricular systolic function. Left ventricular ejection fraction is estimated at 30-35 %. Right Ventricle Mild right ventricular dilatation. Right Atrium Mild to moderate right atrial dilatation. Left Atrium Moderate left atrial dilatation. Mitral Valve Mild thickening/calcification of the mitral valve leaflets. Moderate mitral regurgitation. Aortic Valve Focal thickening of the aortic valve cusps. No aortic stenosis. No aortic regurgitation. Tricuspid Valve Tricuspid valve is normal in structure and function. Moderate tricuspid regurgitation. Right ventricular systolic pressure estimated to be elevated at 50-55 mmHg. Pulmonic Valve Pulmonic valve not well visualized, grossly normal. Trace pulmonic regurgitation. Pericardium No pericardial or pleural effusion. Great Vessels Normal size aortic root. Dilated IVC. Suprasternal notch view not available, aortic arch and great vessels not seen. CONCLUSIONS Mild left ventricular dilatation. Moderate concentric left ventricular hypertrophy. Moderate to markedly reduced global left ventricular systolic function. Left ventricular ejection fraction is estimated at 30-35 %. Mild right ventricular dilatation. Mild to moderate right atrial dilatation. Moderate left atrial dilatation. Mild thickening/calcification of the mitral valve leaflets. Moderate mitral regurgitation. Focal thickening of the aortic valve cusps. No aortic stenosis. Moderate tricuspid regurgitation. Right ventricular systolic pressure estimated to be elevated at 50- 55 mmHg. Dilated IVC. Suprasternal notch view not available, aortic arch and great vessels not seen. Compared to study of 08/08/2017 results are similar. Landry Walton M.D. (Electronically Signed) Final Date: 01 March 2018 10:10 MEASUREMENTS (Male / Female) Normal Values 2D ECHO LV Diastolic Diameter PLAX 6.0 cm 4.2 - 5.9 / 3.9 - 5.3 cm LV Systolic Diameter PLAX 5.1 cm 2.1 - 4.0 cm LV Fractional Shortening PLAX 15.0 % 25 - 46 % LV Ejection Fraction 2D Teich 31.2 % IVS Diastolic Thickness 1.4 cm LVPW Diastolic Thickness 1.4 cm LV Relative Wall Thickness 0.5 RV Internal Dim ED PLAX 3.8 cm 1.9 - 3.8 cm LVOT Diameter 2.0 cm Aortic Root Diameter 3.3 cm LA Systolic Diameter LX 5.7 cm 3.0 - 4.0 / 2.7 - 3.8 cm LA Volume 99.0 cm 18 - 58 / 22 - 52 cm Ascending Aorta Diameter 3.2 cm DOPPLER AV Peak Velocity 133.0 cm/s AV Peak Gradient 7.1 mmHg AV Mean Velocity 92.8 cm/s AV Mean Gradient 4.0 mmHg AV Velocity Time Integral 23.3 cm LVOT Peak Velocity 118.0 cm/s LVOT Peak Gradient 5.6 mmHg LVOT Mean Velocity 70.4 cm/s LVOT Mean Gradient 2.0 mmHg LVOT Velocity Time Integral 19.1 cm LVOT Stroke Volume 60.0 cm AV Area Cont Eq vti 2.6 cm AV Area Cont Eq pk 2.8 cm MV Peak Velocity 124.0 cm/s MV Peak Gradient 6.2 mmHg MV Mean Velocity 65.6 cm/s MV Mean Gradient 2.0 mmHg Mitral E Point Velocity 95.8 cm/s MV PHT Velocity 129.0 cm/s MV Deceleration Villalba 795.0 cm/s MV Pressure Half Time 48.7 ms MV Area PHT 4.5 cm MV Deceleration Time 132.0 ms TR Peak Velocity 328.0 cm/s TR Peak Gradient 43.0 mmHg Right Atrial Pressure 10.0 mmHg Pulmonary Artery Systolic Pressu 53.0 mmHg Right Ventricular Systolic Press 53.0 mmHg PV Peak Velocity 119.0 cm/s PV Peak Gradient 5.7 mmHg PV Mean Velocity 83.4 cm/s PV Mean Gradient 3.0 mmHg PV Velocity Time Integral 20.8 cm LV E' Lateral Velocity 13.9 cm/s Mitral E to LV E' Lateral Ratio 6.9 LV E' Septal Velocity 4.3 cm/s Mitral E to LV E' Septal Ratio 22.3
--- NOTE | 2018-03-01 11:57 | PN- Pulmonary ---
Subjective HPI/Critical Care Issues: pt seen and examined feels better Objective Current Medications: Current Medications Sig/Eve Start time Last Medication Dose Route Stop Time Status Admin Albuterol Sulfate 3 ML EVERY 4 HRS/AWAKE 02/28 1200 AC 03/01 INH 0827 Aspirin 81 MG DAILY 02/28 1000 AC 03/01 PO 0824 Atorvastatin Calcium 10 MG DAILY 02/28 1000 AC 03/01 PO 0824 Budesonide/ 2 PUF BID 03/01 0900 AC 03/01 Formoterol Fumarate INH 1044 Diltiazem HCl 480 MG DAILY 02/28 1000 AC 03/01 PO 0823 Ferrous Sulfate 325 MG BID 02/28 1000 AC 03/01 PO 0817 Furosemide 60 MG 7:30 AM, & 4:30 PM 02/28 1630 DC 03/01 IV 03/01 1000 0759 Insulin Aspart 0 TIDAC 02/28 0800 AC 03/01 SC 1146 Loperamide HCl 4 MG BID PRN 02/28 0415 AC PO Methylprednisolone 40 MG Q12 03/01 1000 AC IV Methylprednisolone 40 MG Q8 02/28 0600 DC 03/01 IV 0612 Metoprolol Tartrate 0 .STK-MED ONE 02/28 1340 DC PO Metoprolol Tartrate 25 MG BID 02/28 1324 AC 03/01 PO 0822 Omeprazole 20 MG DAILY AC 02/28 0700 AC 03/01 PO 0612 Rivaroxaban 20 MG DAILY 02/28 1000 AC 03/01 PO 0824 Tiotropium [place] 1 PUF DAILY 03/01 0900 AC 03/01 INH 0945 Vital Signs & I&O Last 24 Hrs of Vitals and I&O: Vital Signs Date Time Temp Pulse Resp B/P B/P Pulse O2 O2 Flow FiO2 Mean Ox Delivery Rate 03/01 0914 96 Nasal 3.5L Cannula 03/01 0830 94 Nasal 3.5L Cannula 03/01 0822 80 24 122/76 03/01 0638 97.2 89 22 100/70 97 Nasal Cannula 03/01 0000 CPAP 02/28 2241 103 108/70 02/28 2234 97.6 105 20 120/60 96 Nasal 3.5L Cannula 02/28 1640 98 Nasal 4.0L Cannula 02/28 1600 94 Nasal 4.0L Cannula 02/28 1505 97.6 84 22 120/78 93 Nasal 4.0L Cannula 02/28 1422 92 20 92/63 99 Nasal 4.0L Cannula 02/28 1346 97.7 84 20 /62 98 Nasal 4.0L Cannula 02/28 1344 97.7 92 20 98/62 Intake & Output 03/01 1600 03/01 0800 03/01 0000 Intake Total 120 395 Output Total 400 350 Balance -280 45 Intake, IV 20 Intake, Oral 120 375 Number 1 Bowel Movements Output, Urine 400 350 Patient 188 lb Weight Weight Bed scale Measurement Method Exam Other Physical Findings: awake and alert no distress bilateral rhonchi leg edema 2+ normal bs Results Last 24 Hrs of Lab Results: Laboratory Tests 03/01/18 0658: Anion Gap 13, Estimated GFR 40 L, BUN/Creatinine Ratio 25.3 H, CBC w Diff NO MAN DIFF REQ, RBC 2.90 L, MCV 87.4, MCH 28.1, MCHC 32.1 L, RDW 17.2 H, MPV 9.1, Gran % 92.6 H, Lymphocytes % 4.5 L, Monocytes % 2.8, Eosinophils % 0.1, Basophils % 0, Absolute Granulocytes 7.9 H, Absolute Lymphocytes 0.4 L, Absolute Monocytes 0.2, Absolute Eosinophils 0, Absolute Basophils 0 Impression/Plan Impression/Plan Impression/Plan: Impression 67 year old man CHF exacerbation along with acute COPD exacerbation no obvious evidence of pneumonia Plan -REDUCE solumedrol 40mg iv q12h -diuresis -ins/outs -daily weights -cardiology input -nocturnal bipap DVT prophylaxis at all times
[2018-03-01 14:08] VITALS: BP 126/70
--- NOTE | 2018-03-01 14:56 | PN- Cardiology ---
Subjective Subjective: The patient is still somewhat short of breath but feeling better. He notes his edema has improved. I's and O's are probably inaccurate. Labs show moderate anemia and BUN and creatinine are slightly higher. Troponins are negative 2. Echocardiogram shows reduced LV function and moderate pulmonary hypertension. His rate seems better controlled with the addition of metoprolol. Objective Vital Signs and I&Os Vital Signs Date Time Temp Pulse Resp B/P B/P Pulse O2 O2 Flow FiO2 Mean Ox Delivery Rate 03/01 1408 97.8 74 20 126/70 96 Nasal 3.5L Cannula 03/01 0914 96 Nasal 3.5L Cannula 03/01 0830 94 Nasal 3.5L Cannula 03/01 0822 80 24 122/76 03/01 0638 97.2 89 22 100/70 97 Nasal Cannula 03/01 0000 CPAP 02/28 2241 103 108/70 02/28 2234 97.6 105 20 120/60 96 Nasal 3.5L Cannula 02/28 1640 98 Nasal 4.0L Cannula 02/28 1600 94 Nasal 4.0L Cannula 02/28 1505 97.6 84 22 120/78 93 Nasal 4.0L Cannula Intake & Output 03/01 1600 03/01 0800 03/01 0000 02/28 1600 02/28 0800 02/28 0000 Intake Total 400 120 395 Output Total 700 400 350 100 Balance -300 -280 45 -100 Intake, IV 20 Intake, Oral 400 120 375 Number 1 Bowel Movements Output, Urine 700 400 350 100 Patient 188 lb 184 lb 180 lb 180 lb Weight Weight Bed scale Reported by Patient Measurement Method Physical Exam: Chronically ill appearing man in no acute distress HEENT exam normal Chest clear with reduced breath sounds Heart irregular rhythm, normal rate, no murmurs Extremities 1+ edema Current Medications: Current Medications Sig/Eve Start time Last Medication Dose Route Stop Time Status Admin Albuterol Sulfate 3 ML EVERY 4 HRS/AWAKE 02/28 1200 AC 03/01 INH 1204 Aspirin 81 MG DAILY 02/28 1000 AC 03/01 PO 0824 Atorvastatin Calcium 10 MG DAILY 02/28 1000 AC 03/01 PO 0824 Budesonide/ 2 PUF BID 03/01 0900 AC 03/01 Formoterol Fumarate INH 1044 Diltiazem HCl 480 MG DAILY 02/28 1000 AC 03/01 PO 0823 Ferrous Sulfate 325 MG BID 02/28 1000 AC 03/01 PO 0817 Furosemide 60 MG 7:30 AM, & 4:30 PM 02/28 1630 DC 03/01 IV 03/01 1000 0759 Insulin Aspart 0 TIDAC 02/28 0800 AC 03/01 SC 1146 Loperamide HCl 4 MG BID PRN 02/28 0415 AC PO Methylprednisolone 40 MG Q12 03/01 1000 AC IV Methylprednisolone 40 MG Q8 02/28 0600 DC 03/01 IV 0612 Metoprolol Tartrate 25 MG BID 02/28 1324 AC 03/01 PO 0822 Omeprazole 20 MG DAILY AC 02/28 0700 AC 03/01 PO 0612 Rivaroxaban 20 MG DAILY 02/28 1000 AC 03/01 PO 0824 Tiotropium [place] 1 PUF DAILY 03/01 0900 AC 03/01 INH 0945 Results Last 48 Hrs of Labs/Mics: Laboratory Tests 03/01/18 0658: Anion Gap 13, Estimated GFR 40 L, BUN/Creatinine Ratio 25.3 H, CBC w Diff NO MAN DIFF REQ, RBC 2.90 L, MCV 87.4, MCH 28.1, MCHC 32.1 L, RDW 17.2 H, MPV 9.1, Gran % 92.6 H, Lymphocytes % 4.5 L, Monocytes % 2.8, Eosinophils % 0.1, Basophils % 0, Absolute Granulocytes 7.9 H, Absolute Lymphocytes 0.4 L, Absolute Monocytes 0.2, Absolute Eosinophils 0, Absolute Basophils 0 02/28/18 1114: Troponin I 0.03 02/28/18 0523: Anion Gap 12, Estimated GFR 55 L, BUN/Creatinine Ratio 19.2, CBC w Diff MAN DIFF ORDERED, RBC 2.99 L, MCV 86.2, MCH 27.4, MCHC 31.8 L, RDW 17.1 H, MPV 8.6, Gran % 93.6 H, Lymphocytes % 5.7 L, Monocytes % 0.7 L, Eosinophils % 0, Basophils % 0, Absolute Granulocytes 4.7, Segmented Neutrophils 91 H, Absolute Lymphocytes 0.3 L, Lymphocytes 8 L, Monocytes 1 L, Absolute Monocytes 0 L, Absolute Eosinophils 0, Absolute Basophils 0, Platelet Estimate ADEQUATE, Polychromasia 1+, Hypochromic-Microcytic 1+, Poikilocytosis 1+, Basophilic Stippling 1+, Ovalocytes 1+, Fld Total RBCs Counted 100 02/27/18 2200: pH 7.30 *L, pCO2 59 H, pO2 73 L, HCO3 29 H, ABG O2 Sat (Measured) 94.0 L, Carboxyhemoglobin 1.0 L, O2 Concentration % 30%, Respiration Rate 24, O2 Delivery Method BIPAP, Vent Mode S/T, Expiratory Pressure 4, Inspiratory Pressure 14, Phlebotomy Draw Site LEFT RADIAL 02/27/18 2110: Lactic Acid 0.6 L 02/27/18 1750: pH 7.27 *L, pCO2 62 *H, pO2 95, HCO3 28, ABG O2 Sat (Measured) 96.0, Carboxyhemoglobin 0.3 L, O2 Concentration % 4L, O2 Delivery Method NC, Phlebotomy Draw Site LEFT RADIAL 02/27/18 1745: Anion Gap 13, Estimated GFR 55 L, BUN/Creatinine Ratio 17.7, Glucose 213 H, Lactic Acid 1.2, Calcium 8.9, Magnesium 2.1, Total Bilirubin 0.6, AST 9 L, ALT 26, Alkaline Phosphatase 78, Troponin I 0.04, [id number] Pept 33241 H, Total Protein 5.9 L, Albumin 3.3 L, Globulin 2.6, Albumin/Globulin Ratio 1.3, D-Dimer High Sensitivty 448 H, CBC w Diff NO MAN DIFF REQ, RBC 3.32 L, MCV 86.1, MCH 26.7 L, MCHC 31.0 L, RDW 17.5 H, MPV 8.7, Gran % 89.3 H, Lymphocytes % 4.6 L, Monocytes % 5.8, Eosinophils % 0.3, Basophils % 0, Absolute Granulocytes 10.0 H, Absolute Lymphocytes 0.5 L, Absolute Monocytes 0.7 H, Absolute Eosinophils 0, Absolute Basophils 0 Microbiology 02/27 1750 NASOPHARYN: Influenza Virus A & B Rapid Smear - COMP Recent Imaging Studies: CONCLUSIONS Mild left ventricular dilatation. Moderate concentric left ventricular hypertrophy. Moderate to markedly reduced global left ventricular systolic function. Left ventricular ejection fraction is estimated at 30-35 %. Mild right ventricular dilatation. Mild to moderate right atrial dilatation. Moderate left atrial dilatation. Mild thickening/calcification of the mitral valve leaflets. Moderate mitral regurgitation. Focal thickening of the aortic valve cusps. No aortic stenosis. Moderate tricuspid regurgitation. Right ventricular systolic pressure estimated to be elevated at 50- 55 mmHg. Dilated IVC. Suprasternal notch view not available, aortic arch and great vessels not seen. Compared to study of 08/08/2017 results are similar. Landry Walton M.D. (Electronically Signed) Final Date: 01 March 2018 10:10 Assessment/Plan Assessment/Plan Aiden seems slightly better. He appears to be diuresing. His edema is less. His BUN and creatinine have risen slightly. I recommend continuing him on Lasix but we can probably switch to oral Lasix. I would suggest 60 mg by mouth twice a day. Once his renal function stabilizes I would like to try and start him on Entresto. His overall prognosis remains quite poor with his severe lung and heart disease. Continue telemetry? Yes
[2018-03-01 22:52] VITALS: BP 102/60
[2018-03-02 06:02] VITALS: BP 110/64
--- NOTE | 2018-03-02 07:43 | PN- Housestaff ---
Chuck CR,[place] 03/02/18 0743: Subjective Follow-up For: 1. Acute on Chronic Respiratory Failure 2/2 COPD Exacerbation/CHF Exacerbation 2. History of A.fib on Xarelto and cardizem 3. History of AAA s/p recent endovascular repair 4. Anemia 5. MADISON Complaints: no complaints Tele-Events Since Last Visit: afib, normal rates, no events overnight Subjective: patient states that he continues to be short of breath. overnight he was on 3L but as he was SOB, it was increased back to his outpatient oxygen level of 4L. Review of Systems Constitutional: Reports: no symptoms. EENTM: Reports: no symptoms. Cardiovascular: Reports: edema. Respiratory: Reports: short of breath. Gastrointestinal: Reports: no symptoms. Genitourinary: Reports: no symptoms. Musculoskeletal: Reports: no symptoms. Skin: Reports: no symptoms. Objective Last 24 Hrs of Vital Signs/I&O Vital Signs Date Time Temp Pulse Resp B/P B/P Pulse O2 O2 Flow FiO2 Mean Ox Delivery Rate 03/02 0920 97 Nasal 4.0L Cannula 03/02 0806 112/64 03/02 0800 94 Nasal 4.0L Cannula 03/02 0602 97.9 87 20 110/64 99 Nasal Cannula 03/02 0000 CPAP 03/01 2252 97.8 78 20 102/60 97 Nasal 3.0L Cannula 03/01 2103 74 96/60 03/01 1630 96 Nasal 3.5L Cannula 03/01 1600 Nasal 3.5L Cannula 03/01 1408 97.8 74 20 126/70 96 Nasal 3.5L Cannula Intake & Output 03/02 1600 03/02 0800 03/02 0000 Intake Total 110 750 Output Total 250 Balance 110 500 Intake, IV 10 Intake, Oral 100 750 Number 0 Bowel Movements Output, Urine 250 Patient 185 lb Weight Weight Bed scale Measurement Method Physical Exam General Appearance: Alert, Oriented X3, Cooperative, No Acute Distress Skin: No Rashes, No Breakdown, No Significant Lesion Sepsis Skin Exam (color): Normal for Ethnicity HEENT: Atraumatic, EOMI, Mucous Membr. moist/pink Neck: Supple, No JVD Cardiovascular: Normal S1, Normal S2, No Murmurs Lungs: Clear to Auscultation, Normal Air Movement Abdomen: Normal Bowel Sounds, Soft, No Tenderness, No Hepatospenomegaly, No Masses Neurological: Normal Speech Extremities: No Clubbing, No Cyanosis, Normal Pulses, No Tenderness/Swelling, 2+ pitting edema that has decreased bilaterally since admission Vascular: Normal Pulses, Pulses Symmetrical Current Medications: Current Medications Sig/Eve Start time Last Medication Dose Route Stop Time Status Admin Acetaminophen 500 MG ONCE ONE 03/01 2030 DC 03/01 PO 03/01 2031 2100 Albuterol Sulfate 3 ML EVERY 4 HRS/AWAKE 02/28 1200 AC 03/02 INH 0748 Aspirin 81 MG DAILY 02/28 1000 AC 03/02 PO 0803 Atorvastatin Calcium 10 MG DAILY 02/28 1000 AC 03/02 PO 0808 Budesonide/ 2 PUF BID 03/01 0900 AC 03/02 Formoterol Fumarate INH 0809 Diltiazem HCl 480 MG DAILY 02/28 1000 AC 03/02 PO 0803 Ferrous Sulfate 325 MG BID 02/28 1000 AC 03/02 PO 0807 Furosemide 60 MG 7:30 AM, & 4:30 PM 03/02 0730 DC PO Insulin Aspart 0 TIDAC 02/28 0800 AC 03/02 SC 0803 Loperamide HCl 4 MG BID PRN 02/28 0415 AC PO Methylprednisolone 40 MG Q12 03/01 1000 DC 03/02 IV 0803 Metoprolol Tartrate 25 MG BID 02/28 1324 AC 03/02 PO 0806 Omeprazole 20 MG DAILY AC 02/28 0700 AC 03/02 PO 0540 Prednisone 10 MG DAILY 03/09 0900 AC PO Prednisone 20 MG DAILY 03/07 0900 AC PO 03/08 0901 Prednisone 30 MG DAILY 03/05 0900 AC PO 03/06 0901 Prednisone 40 MG 1000 03/04 1000 AC PO 03/04 1001 Prednisone 40 MG 1000 03/03 1000 AC PO 03/03 1001 Prednisone 40 MG BID 03/02 0954 AC PO 03/02 2101 Rivaroxaban 20 MG DAILY 02/28 1000 AC 03/02 PO 0807 Sodium Chloride 2 SPRAY Q4P PRN 03/01 2100 AC CESAR Tiotropium [place] 1 PUF DAILY 03/01 0900 AC 03/02 INH 0807 Last 24 Hrs of Lab/Sridhar Results Last 24 Hrs of Labs/Mics: Laboratory Tests 03/02/18 0642: Anion Gap 16, Estimated GFR 27 L, BUN/Creatinine Ratio 25.0, CBC w Diff MAN DIFF ORDERED, RBC 3.00 L, MCV 86.9, MCH 27.6, MCHC 31.7 L, RDW 17.4 H, MPV 8.9, Gran % 94.1 H, Lymphocytes % 3.4 L, Monocytes % 2.3, Eosinophils % 0, Basophils % 0.2, Absolute Granulocytes 10.2 H, Absolute Lymphocytes 0.4 L, Absolute Monocytes 0.3, Absolute Eosinophils 0, Absolute Basophils 0, Platelet Estimate VERIFIED BY SMEAR, Polychromasia 1+, Poikilocytosis 1+, Basophilic Stippling 1+, Anisocytosis 1+, Ovalocytes 1+ 03/01/182044: Anion Gap 12, Estimated GFR 32 L, BUN/Creatinine Ratio 25.7 H Assessment/Plan Assessment: 67-year-old male with a PMHx of chronic hypercarbic respiratory failure, COPD on 4 L of oxygen at baseline at home, with BiPAP at night, HFrEF 30%, A. fib on Xarelto, GERD, TIA, NIDDM, HTN, HLD, AAA s/p endovascular repair last month, who presented with a chief complaint of shortness breath and generalize weakness. Patient was admitted for increasing shortness of breath on exertion for one week before admission. He reported feeling tired to the point that he was about to fall. He denies chest pain, cough, fever, chills, palpitation. He denies recent travel or sick contact. He denies fall. He was trying to self medicate with nebulizer but his symptoms did not improve. Problem list #Acute on chronic hypercarbic respiratory failure most likely secondary to * CHF exacerbation * COPD exacerbation #A. fib on Xarelto and cardizem 240mg daily #GERD, TIA, NIDDM, HTN, HLD, Anemia #AAA s/p endovascular repair recently Plan For CHF exacerbation: Patient's lower extremity edema is resolving. His I/O show that he is mild net negative however as he has been clearly diuresed more with resolving edema, these values may not be valid. He is continuing on same oxygen requirement as home and notes that when the level is dropped to 3L, he experiences shortness of breath * Lasix 60mg iv bid which will help with his breathing and edema as per dr. huynh. HOWEVER due to increasing MADISON, now creatinine 2.4, we will give him 60mg PO bid. WE WILL MONITOR KIDNEY FUNCTION WITH REPEAT BEP 6PM. * Strict Is/Os and daily weights * Patient's echocardiogram shows an EF of 30-35% fairly unchanged rom last echo in july 2017. Additionally he has moderate mitral regurgitation and moderate tricuspid regurgitation. Patient will need better control of his congestive heart failure with either entresto, spironolactone, PA inhibitor, AICD. We will defer to cardiology for selection but of note patient's blood pressure may not tolerate antihypertensives as it is lower side of normal 110/64 this morning. Another option is Corlanor. Another option is sodium-glucose transporter-2 (SGLT-2) inhibitors in patients who have diabetes. For now we will wait for renal function to resolve before starting entresto. * Follow up chest xray today For COPD exacerbation * Continue night time bipap and 3.5 L to 4L oxygen * Repeat ABG only if symptoms worsen * IV Solu-Medrol 40 mg every 8 now reduced to every 12 hours can be transitioned to 40mg po bid today and then 40mg for 2 days, 30mg for 2, 20mg for 2, 10mgs then indefinitely but we will defer to Dr. So spine surgeon to confirm continuation of 10mgs outpatient. * TRC/nebulizers and Symbicort and Spiriva * Sputum culture so far negative. * 1 dose of vancomycin and cefazolin, stopped antibiotics as pulmonary does not think this is pneumonia, white count is normal, afebrile For A.fib * Follow on tele floor, trops negative. ekg on admission showed afib with rvr, extended qtc with resolution on repeat ekg and now normal heart rates on tele. 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 For GERD, TIA, NIDDM, HTN, HLD * Continue PPI * Hold oral antihyperglycemic and continue low dose ss coverage. patient is on steroids and has blood sugars around 300. we are decreasing steroids and will continue to monitor. patient was on cc3 diet but complained about it so we will try him on heart healthy diet and continue to monitor sugars. * Continue Lopressor 25 mg twice a day * Continue statin Anemia * Persitently low Hb, in 2016 iron studies show iron deficiency anemia so we will start him on iron and also guaic stools to determine cause for his anemia. Disposition * physical therapy today for discharge planning, he may require rehab as his functioning is below his baseline -Heart healthy diet -DVT Ppx with ALPS and Xarelto -FC Problem List: 1. Atrial fibrillation with rapid ventricular response 2. Respiratory failure 3. COPD (chronic obstructive pulmonary disease) 4. CHF (congestive heart failure) 5. HTN (hypertension) 6. Hyperlipidemia 7. MADISON (acute kidney injury) 8. History of AAA (abdominal aortic aneurysm) repair 9. Anemia Pain Ratin Pain Location: na Pain Goal: Remain pain free Pain Plan: na Tomorrow's Labs & Rationales: cbc bep Sangeeta Garcia 03/02/18 1059: Attending MD Review Statement Attending Statement Attending MD Statement: examined this patient, discuss w/resident/PA/CERTIFIED [employer] W[employer] FACILITY OPERATOR, agreed w/resident/PA/CERTIFIED [employer] W[employer] FACILITY OPERATOR, discussed with family, reviewed EMR data (avail), discussed with nursing, discussed with case mgmt, reviewed images, amended to note Attending Assessment/Plan: Patient with pmh of chf and copd comes with worsening shortness of breath multifactorial origin with systolic CHF acute on chronic exacerbation and COPD exacerbation with requirement of bipap on admission. Conitnue telemetry monitoring. Serial cardiac enzymes negative for [place]. Cardiology and pulmonary consulted. Patient denies any new complaints. His Cr is 1.3>>1.7>>>2.1>>2.4. Mild use of accessory muscles. Patient changed to PO lasix, Taper PO steroids, oxygen supplementation, NIPPV at night, bronchodilators, Azithromycin. ECHO EF 30-35%. afib xarelto, Cardizem 240 daily, lopressor (decreased from 480, non compliant, was taking 240 only). MADISON with elevation of creatinnie. Follow cardiology/pulmonary recs. Monitor creatinine. Entresto addition as per cardiology recs. (held 12/22 MADISON) Cont current care..
[2018-03-02 07:57] LABS: ABSOLUTE BASOPHIL COUNT 0 /CUMM (0.0-0.2); ABSOLUTE EOSINOPHIL COUNT 0 /CUMM (0.0-0.7); ABSOLUTE GRANULOCYTE CT 10.2 /CUMM (1.4-6.5); ABSOLUTE LYMPH COUNT 0.4 /CUMM (1.2-3.4); ABSOLUTE MONOCYTE COUNT 0.3 /CUMM (0.10-0.60); BASOPHIL % 0.2 % (0.0-2.0); EOSINOPHIL % 0 % (0-5); GRANULOCYTE % 94.1 % (42.2-75.2); MEAN CORPUSCULAR HGB 27.6 PG (27.0-31.0); MEAN CORPUSCULAR HGB CONC 31.7 G/DL (33.0-37.0); MEAN CORPUSCULAR VOLUME 86.9 FL (80.0-94.0); MEAN PLATELET VOLUME 8.9 FL (7.4-10.4); PLATELET COUNT 280 /CUMM (130-400); RBC DISTRIBUTION WIDTH 17.4 % (11.5-14.5); WHITE BLOOD CELL COUNT 10.9 /CUMM (4.8-10.8)
--- NOTE | 2018-03-02 10:13 | PN- Cardiology ---
Subjective Subjective: The patient is feeling a little bit better. He's had no chest pain. His breathing is acceptable still on 4 L of oxygen. His BUN and creatinine have risen a little bit. His heart rate is in the 60s. The patient tells me he is only taking Cardizem 240 mg once daily at home although his med list has 240 twice a day. He did get 480 mg on February 28 and March 01 and 240 mg today. Objective Vital Signs and I&Os Vital Signs Date Time Temp Pulse Resp B/P B/P Pulse O2 O2 Flow FiO2 Mean Ox Delivery Rate 03/02 0920 97 Nasal 4.0L Cannula 03/02 0806 112/64 03/02 0800 94 Nasal 4.0L Cannula 03/02 0602 97.9 87 20 110/64 99 Nasal Cannula 03/02 0000 CPAP 03/01 2252 97.8 78 20 102/60 97 Nasal 3.0L Cannula 03/01 2103 74 96/60 03/01 1630 96 Nasal 3.5L Cannula 03/01 1600 Nasal 3.5L Cannula 03/01 1408 97.8 74 20 126/70 96 Nasal 3.5L Cannula Intake & Output 03/02 1600 03/02 0800 03/02 0000 03/01 1600 03/01 0800 03/01 0000 Intake Total 110 750 400 120 395 Output Total 250 700 400 350 Balance 110 500 -300 -280 45 Intake, IV 10 20 Intake, Oral 100 750 400 120 375 Number 0 1 Bowel Movements Output, Urine 250 700 400 350 Patient 185 lb 188 lb Weight Weight Bed scale Bed scale Measurement Method Physical Exam: Chronically ill male in no distress HEENT exam normal Chest decreased breath sounds, no rales Heart soft heart sounds, irregular, rate in the 50s and 60s Abdomen benign Extremities 1+ edema Current Medications: Current Medications Sig/Eve Start time Last Medication Dose Route Stop Time Status Admin Acetaminophen 500 MG ONCE ONE 03/01 2030 DC 03/01 PO 03/01 2031 2100 Albuterol Sulfate 3 ML EVERY 4 HRS/AWAKE 02/28 1200 AC 03/02 INH 0748 Aspirin 81 MG DAILY 02/28 1000 AC 03/02 PO 0803 Atorvastatin Calcium 10 MG DAILY 02/28 1000 AC 03/02 PO 0808 Budesonide/ 2 PUF BID 03/01 0900 AC 03/02 Formoterol Fumarate INH 0809 Diltiazem HCl 240 MG DAILY 03/03 0900 AC PO Diltiazem HCl 480 MG DAILY 02/28 1000 DC 03/02 PO 0803 Ferrous Sulfate 325 MG BID 02/28 1000 AC 03/02 PO 0807 Furosemide 60 MG 7:30 AM, & 4:30 PM 03/02 0730 DC PO Insulin Aspart 0 TIDAC 02/28 0800 AC 03/02 SC 0803 Loperamide HCl 4 MG BID PRN 02/28 0415 AC PO Methylprednisolone 40 MG Q12 03/01 1000 DC 03/02 IV 0803 Metoprolol Tartrate 25 MG BID 02/28 1324 AC 03/02 PO 0806 Omeprazole 20 MG DAILY AC 02/28 0700 AC 03/02 PO 0540 Prednisone 10 MG DAILY 03/09 0900 AC PO Prednisone 20 MG DAILY 03/07 0900 AC PO 03/08 09 Prednisone 30 MG DAILY 03/05 0900 AC PO 03/06 0901 Prednisone 40 MG 1000 03/04 1000 AC PO 03/04 1001 Prednisone 40 MG 1000 03/03 1000 AC PO 03/03 1001 Prednisone 40 MG BID 03/02 0954 AC PO 03/02 2101 Rivaroxaban 20 MG DAILY 02/28 1000 AC 03/02 PO 0807 Sodium Chloride 2 SPRAY Q4P PRN 03/01 2100 AC CESAR Tiotropium [place] 1 PUF DAILY 03/01 0900 AC 03/02 INH 0807 Results Last 48 Hrs of Labs/Mics: Laboratory Tests 03/02/18 0642: Anion Gap 16, Estimated GFR 27 L, BUN/Creatinine Ratio 25.0, CBC w Diff MAN DIFF ORDERED, RBC 3.00 L, MCV 86.9, MCH 27.6, MCHC 31.7 L, RDW 17.4 H, MPV 8.9, Gran % 94.1 H, Lymphocytes % 3.4 L, Monocytes % 2.3, Eosinophils % 0, Basophils % 0.2, Absolute Granulocytes 10.2 H, Absolute Lymphocytes 0.4 L, Absolute Monocytes 0.3, Absolute Eosinophils 0, Absolute Basophils 0, Platelet Estimate VERIFIED BY SMEAR, Polychromasia 1+, Poikilocytosis 1+, Basophilic Stippling 1+, Anisocytosis 1+, Ovalocytes 1+ 03/01/182044: Anion Gap 12, Estimated GFR 32 L, BUN/Creatinine Ratio 25.7 H 03/01/18 0658: Anion Gap 13, Estimated GFR 40 L, BUN/Creatinine Ratio 25.3 H, CBC w Diff NO MAN DIFF REQ, RBC 2.90 L, MCV 87.4, MCH 28.1, MCHC 32.1 L, RDW 17.2 H, MPV 9.1, Gran % 92.6 H, Lymphocytes % 4.5 L, Monocytes % 2.8, Eosinophils % 0.1, Basophils % 0, Absolute Granulocytes 7.9 H, Absolute Lymphocytes 0.4 L, Absolute Monocytes 0.2, Absolute Eosinophils 0, Absolute Basophils 0 02/28/18 1114: Troponin I 0.03 Assessment/Plan Assessment/Plan The patient is a little bit better symptomatically. His BUN and creatinine have risen. His heart rate is a little on the slow side probably because he was given a higher dose of Cardizem then he is actually taking at home. This has been corrected. I recommend starting him on oral Lasix 60 mg twice a day. We will have to watch his BUN and creatinine closely but I don't think he will get over diuresed on this dose. Some of the renal function abnormalities may be due to steroids. I would hold off on starting him on Entresto for now until his renal function stabilizes. We may have to wait for outpatient to do this. I recommend a follow-up chest x-ray and starting to ambulate him with physical therapy. He may need to go to rehabilitation prior to discharge home. Continue telemetry? Yes
--- NOTE | 2018-03-02 12:11 | PN- Pulmonary ---
Subjective HPI/Critical Care Issues: pt seen and examined feeling better overall Objective Current Medications: Current Medications Sig/Eve Start time Last Medication Dose Route Stop Time Status Admin Acetaminophen 500 MG ONCE ONE 03/01 2030 DC 03/01 PO 03/01 2031 2100 Albuterol Sulfate 3 ML EVERY 4 HRS/AWAKE 02/28 1200 AC 03/02 INH 1143 Aspirin 81 MG DAILY 02/28 1000 AC 03/02 PO 0803 Atorvastatin Calcium 10 MG DAILY 02/28 1000 AC 03/02 PO 0808 Budesonide/ 2 PUF BID 03/01 0900 AC 03/02 Formoterol Fumarate INH 0809 Diltiazem HCl 240 MG DAILY 03/03 0900 AC PO Diltiazem HCl 480 MG DAILY 02/28 1000 DC 03/02 PO 0803 Ferrous Sulfate 325 MG BID 02/28 1000 AC 03/02 PO 0807 Furosemide 60 MG 7:30 AM, & 4:30 PM 03/02 1630 DC PO Furosemide 60 MG 7:30 AM, & 4:30 PM 03/02 1100 AC 03/02 PO 1115 Furosemide 60 MG 7:30 AM, & 4:30 PM 03/02 0730 DC PO Insulin Aspart 0 TIDAC 02/28 0800 AC 03/02 SC 0803 Loperamide HCl 4 MG BID PRN 02/28 0415 AC PO Methylprednisolone 40 MG Q12 03/01 1000 DC 03/02 IV 0803 Metoprolol Tartrate 25 MG BID 02/28 1324 AC 03/02 PO 0806 Omeprazole 20 MG DAILY AC 02/28 0700 AC 03/02 PO 0540 Prednisone 10 MG DAILY 03/09 0900 AC PO Prednisone 20 MG DAILY 03/07 0900 AC PO 03/08 0901 Prednisone 30 MG DAILY 03/05 0900 AC PO 03/06 0901 Prednisone 40 MG 1000 03/04 1000 AC PO 03/04 1001 Prednisone 40 MG 1000 03/03 1000 AC PO 03/03 1001 Prednisone 40 MG BID 03/02 0954 AC PO 03/02 2101 Rivaroxaban 20 MG DAILY 02/28 1000 AC 03/02 PO 0807 Sodium Chloride 2 SPRAY Q4P PRN 03/01 2100 AC CESAR Tiotropium [place] 1 PUF DAILY 03/01 0900 AC 03/02 INH 0807 Vital Signs & I&O Last 24 Hrs of Vitals and I&O: Vital Signs Date Time Temp Pulse Resp B/P B/P Pulse O2 O2 Flow FiO2 Mean Ox Delivery Rate 03/02 0920 97 Nasal 4.0L Cannula 03/02 0806 112/64 03/02 0800 94 Nasal 4.0L Cannula 03/02 0602 97.9 87 20 110/64 99 Nasal Cannula 03/02 0000 CPAP 03/01 2252 97.8 78 20 102/60 97 Nasal 3.0L Cannula 03/01 2103 74 96/60 03/01 1630 96 Nasal 3.5L Cannula 03/01 1600 Nasal 3.5L Cannula 03/01 1408 97.8 74 20 126/70 96 Nasal 3.5L Cannula Intake & Output 03/02 1600 03/02 0800 03/02 0000 Intake Total 110 750 Output Total 250 Balance 110 500 Intake, IV 10 Intake, Oral 100 750 Number 0 Bowel Movements Output, Urine 250 Patient 185 lb Weight Weight Bed scale Measurement Method Exam Other Physical Findings: awake and alert no distress bilateral rhonchi leg edema improved Results Last 24 Hrs of Lab Results: Laboratory Tests 03/02/18 0642: Anion Gap 16, Estimated GFR 27 L, BUN/Creatinine Ratio 25.0, CBC w Diff MAN DIFF ORDERED, RBC 3.00 L, MCV 86.9, MCH 27.6, MCHC 31.7 L, RDW 17.4 H, MPV 8.9, Gran % 94.1 H, Lymphocytes % 3.4 L, Monocytes % 2.3, Eosinophils % 0, Basophils % 0.2, Absolute Granulocytes 10.2 H, Absolute Lymphocytes 0.4 L, Absolute Monocytes 0.3, Absolute Eosinophils 0, Absolute Basophils 0, Platelet Estimate VERIFIED BY SMEAR, Polychromasia 1+, Poikilocytosis 1+, Basophilic Stippling 1+, Anisocytosis 1+, Ovalocytes 1+ 03/01/182044: Anion Gap 12, Estimated GFR 32 L, BUN/Creatinine Ratio 25.7 H Impression/Plan Impression/Plan Impression/Plan: Impression 67 year old man CHF exacerbation along with acute COPD exacerbation no obvious evidence of pneumonia Plan -transition to po prednisone with a taper -diuresis -ins/outs -daily weights -cardiology input -nocturnal bipap DVT prophylaxis at all times
--- NOTE | 2018-03-02 13:03 | RADIOLOGY REPORT ---
EXAMINATION: XR PORTABLE CHEST CLINICAL INFORMATION: Shortness of breath. COMPARISON: Chest done on 02/27/2018. TECHNIQUE: Portable frontal view of the chest was obtained. FINDINGS: The pulmonary venous congestion seen on the prior study appears minimally improved. The cardiomediastinal silhouette is mildly enlarged, unchanged. Linear pleural parenchymal opacities noted at right lung base, unchanged. Persistent stable blunting of the right lateral CP angle is noted, unchanged. No new abnormalities. IMPRESSION: Mild improvement of pulmonary venous congestion since prior study dated 02/27/2018. No other significant change and no new abnormalities.
[2018-03-02 14:55] VITALS: BP 104/58
[2018-03-02 22:59] VITALS: BP 102/60
[2018-03-03 07:24] VITALS: BP 100/67
[2018-03-03 07:58] LABS: ABSOLUTE BASOPHIL COUNT 0 /CUMM (0.0-0.2); ABSOLUTE EOSINOPHIL COUNT 0 /CUMM (0.0-0.7); BASOPHIL % 0 % (0.0-2.0); EOSINOPHIL % 0 % (0-5)
[2018-03-03 08:21] LABS: ABSOLUTE LYMPH COUNT 0.3 /CUMM (1.2-3.4); ABSOLUTE MONOCYTE COUNT 0.8 /CUMM (0.10-0.60); GRANULOCYTE % 93.9 % (42.2-75.2); HEMATOCRIT 24.6 % (42-52); MEAN CORPUSCULAR HGB 28.1 PG (27.0-31.0); MEAN CORPUSCULAR HGB CONC 32.8 G/DL (33.0-37.0); MEAN CORPUSCULAR VOLUME 85.7 FL (80.0-94.0); MEAN PLATELET VOLUME 8.9 FL (7.4-10.4); PLATELET COUNT 268 /CUMM (130-400); RBC DISTRIBUTION WIDTH 17.4 % (11.5-14.5); RED BLOOD CELL CT 2.88 /CUMM (4.70-6.10)
[2018-03-03 08:30] LABS: WHITE BLOOD CELL COUNT 17.1 /CUMM (4.8-10.8)
--- NOTE | 2018-03-03 09:01 | PN- Housestaff ---
Andrew CR,Quinn 03/03/18 0901: Subjective Follow-up For: SOB CHF COPD Subjective: Overnight pt stated he felt more short of breath. He did not have to increase o2 requiremetn but expressed subjective shortness of breath. He also had one episdoe of coughing of about 1 tsp of blood this AM. His lasix was held as well since his renal function seemed to worsen. Review of Systems Constitutional: Denies: malaise. EENTM: Reports: no symptoms. Cardiovascular: Reports: peripheral edema. Denies: chest pain, palpitations. Respiratory: Reports: cough, orthopnea, short of breath, sputum production. Gastrointestinal: Reports: no symptoms. Genitourinary: Reports: no symptoms. Musculoskeletal: Reports: no symptoms. Objective Last 24 Hrs of Vital Signs/I&O Vital Signs Date Time Temp Pulse Resp B/P B/P Pulse O2 O2 Flow FiO2 Mean Ox Delivery Rate 03/03 0959 94 Nasal 4.0L Cannula 03/03 0858 77 106/70 03/03 0833 94 Nasal 4.0L Cannula 03/03 0724 98.2 75 20 100/67 90 03/03 0000 Nasal 4.0L Cannula 03/02 2259 97.8 84 18 102/60 93 Nasal 4.0L Cannula 03/02 2147 76 102/60 03/02 1719 95 Nasal 4.0L Cannula 03/02 1628 95 Nasal 4.0L Cannula 03/02 1455 98.1 81 18 104/58 95 Intake & Output 03/03 1600 03/03 0800 03/03 0000 Intake Total Output Total 200 200 Balance -200 -200 Number 1 1 Bowel Movements Output, Urine 200 200 Patient 88.195 kg Weight Physical Exam General Appearance: Alert, Oriented X3, Cooperative, No Acute Distress Skin: No Significant Lesion HEENT: Atraumatic, PERRLA, EOMI, Mucous Membr. moist/pink Neck: Supple, No JVD Cardiovascular: Regular Rate, Normal S1, Normal S2, No Murmurs Lungs: crackles throughout. slight wheeze present on l. side. Abdomen: Soft, No Tenderness Extremities: 3+ edema bilat le Current Medications: Current Medications Sig/Eve Start time Last Medication Dose Route Stop Time Status Admin Albuterol Sulfate 3 ML EVERY 4 HRS/AWAKE 02/28 1200 AC 03/03 INH 1151 Aspirin 81 MG DAILY 02/28 1000 AC 03/03 PO 0857 Atorvastatin Calcium 10 MG DAILY 02/28 1000 AC 03/03 PO 0859 Budesonide/ 2 PUF BID 03/01 0900 AC 03/03 Formoterol Fumarate INH 0901 Diltiazem HCl 240 MG DAILY 03/03 0900 AC 03/03 PO 0900 Ferrous Sulfate 325 MG BID 02/28 1000 AC 03/03 PO 0858 Furosemide 60 MG BID 03/02 2100 CAN PO 03/02 2300 Furosemide 60 MG 7:30 AM, & 4:30 PM 03/02 1100 DC 03/02 PO 1115 Guaifenesin/ 10 ML ONCE ONE 03/03 0930 DC Dextromethorphan PO 03/03 0931 Insulin Aspart 0 TIDAC 02/28 0800 AC 03/03 SC 0901 Loperamide HCl 4 MG BID PRN 02/28 0415 AC PO Metoprolol Tartrate 25 MG BID 02/28 1324 AC 03/03 PO 0858 Omeprazole 20 MG DAILY AC 02/28 0700 AC 03/03 PO 0628 Prednisone 10 MG DAILY 03/09 0900 AC PO Prednisone 20 MG DAILY 03/07 0900 AC PO 03/08 0901 Prednisone 30 MG DAILY 03/05 0900 AC PO 03/06 0901 Prednisone 40 MG 1000 03/04 1000 AC PO 03/04 1001 Prednisone 40 MG 1000 03/03 1000 DC 03/03 PO 03/03 1001 0857 Prednisone 40 MG BID 03/02 0954 DC 03/02 PO 03/02 2101 2143 Rivaroxaban 20 MG DAILY 02/28 1000 AC 03/03 PO 0857 Sodium Chloride 2 SPRAY Q4P PRN 03/01 2100 AC CESAR Tiotropium [place] 1 PUF DAILY 03/01 0900 AC 03/03 INH 0906 Last 24 Hrs of Lab/Sridhar Results Last 24 Hrs of Labs/Mics: Laboratory Tests 03/03/18 0655: Anion Gap 14, Estimated GFR 21 L, BUN/Creatinine Ratio 25.3 H, CBC w Diff MAN DIFF ORDERED, RBC 2.88 L, MCV 85.7, MCH 28.1, MCHC 32.8 L, RDW 17.4 H, MPV 8.9, Gran % 93.9 H, Lymphocytes % 1.6 L, Monocytes % 4.5, Eosinophils % 0, Basophils % 0, Absolute Granulocytes 16.0 H, Segmented Neutrophils 96 H, Absolute Lymphocytes 0.3 L, Lymphocytes 3 L, Monocytes 1 L, Absolute Monocytes 0.8 H, Absolute Eosinophils 0, Absolute Basophils 0, Nucleated RBCs 2 H, Platelet Estimate ADEQUATE, Hypochromic-Microcytic 2+, Poikilocytosis 2+, Anisocytosis 1+, Ovalocytes 1+ 03/02/181804: Anion Gap 13, Estimated GFR 22 L, BUN/Creatinine Ratio 23.8 Assessment/Plan Assessment: 67-year-old male with a PMHx of chronic hypercarbic respiratory failure, COPD on 4 L of oxygen at baseline at home, with BiPAP at night, HFrEF 30%, A. fib on Xarelto, GERD, TIA, NIDDM, HTN, HLD, AAA s/p endovascular repair last month, who presented with a chief complaint of shortness breath and generalized weakness. Patient was admitted for increasing shortness of breath on exertion for one week before admission. He reported feeling tired to the point that he was about to fall. He denies chest pain, cough, fever, chills, palpitation. He denies recent travel or sick contact. He denies fall. He was trying to self medicate with nebulizer but his symptoms did not improve. Plan Contrast induced nephropathy: Pt recieved dye for CTA on first day of admission. His Cr has been rising since, now up to 2.9. * Con't Lasix between 80-100 IV BID * Appreciate nephro recs * Will plan for 24hr urine protein creatinine ratio * Switched to renal dialysis diet to keep Potassium low SOB: Likely a mix of CHF/ COPD exacerbation. Pt has terminal COPD and he has systolic heart failure with EF 30-35. His respiratory status is still tenuous and he is not making much urine despite generous amount of Lasix. * Continue night time bipap and 3.5 L to 4L oxygen * Repeat ABG * IV Solu-Medrol 40 mg every 8 now reduced to every 12 hours can be transitioned to 40mg po bid today and then 40mg for 2 days, 30mg for 2, 20mg for 2, 10mgs then indefinitely but we will defer to Dr. So manager surgical to confirm continuation of 10mgs outpatient. * TRC/nebulizers and Symbicort and Spiriva * Sputum culture so far negative. A.fib: Follow on tele floor, trops negative. ekg on admission showed afib with rvr, extended qtc with resolution on repeat ekg and now normal heart rates on tele. * Continue Xarelto * patient is to be taking 480mg cardizem as per his tow operator but as he has only been taking 240mg daily and has good heart rates we will try him on 240mg and increase if needed. * Continue Lopressor 25 mg twice a day For GERD, TIA, NIDDM, HTN, HLD * Continue PPI * Hold oral antihyperglycemic and continue low dose ss coverage. patient is on steroids and has blood sugars around 300. * heart healthy diet and continue to monitor sugars. * Continue statin Anemia * Persitently low Hb, in 2016 iron studies show iron deficiency anemia so we will start him on iron and also guaic stools to determine cause for his anemia. -Heart healthy diet -DVT Ppx with ALPS and Xarelto -FC Problem List: 1. COPD (chronic obstructive pulmonary disease) 2. Hypercapnic respiratory failure Pain Ratin Pain Location: none Pain Goal: Remain pain free Pain Plan: none Tomorrow's Labs & Rationales: cbc bep Yamila CR,Amir 03/03/18 1032: Attending MD Review Statement Attending Statement Attending MD Statement: examined this patient, discuss w/resident/PA/SACK SEWER, agreed w/resident/PA/SACK SEWER, reviewed EMR data (avail), discussed with nursing Attending Assessment/Plan: Mr. Vieira was seen and evaluated. Reports doing sl better this am. Lungs c/w b/l crackles A/P: --check CXR --will likely need IV Lasix --need Renal consult for worsening renal function --rest of the plan as per resident's note Attending Statement Attending MD Statement: examined this patient, discuss w/resident/PA/SACK SEWER, agreed w/resident/PA/SACK SEWER, reviewed EMR data (avail), discussed with nursing Attending Assessment/Plan: Mr. Vieira was seen and evaluated. Reports doing sl better this am. Lungs c/w b/l crackles A/P: --check CXR --will likely need IV Lasix --need Renal consult for worsening renal function --rest of the plan as per resident's note
--- NOTE | 2018-03-03 11:55 | RADIOLOGY REPORT ---
EXAMINATION: XR PORTABLE CHEST CLINICAL INFORMATION: Pleural effusion. Pulmonary edema, pneumonia. COMPARISON: Chest done on 03/02/2018. TECHNIQUE: Portable frontal view of the chest was obtained. FINDINGS: Evaluation is slightly technically limited due to patient's suboptimal positioning. The cardiomediastinal silhouette remains enlarged. Persistent nonspecific opacities noted at right lung base with evidence of persistent blunting of the right lateral CP angle indicative of either effusion, thickening or combination thereof. There is suggestion of mild pulmonary venous congestion present, new since prior study. Visualized upper abdomen is unremarkable. IMPRESSION: 1. Persistent nonspecific airspace opacity at right lung base with features suggestive of small right-sided effusion, thickening or combination thereof. 2. Persistent enlargement of the cardiomediastinal silhouette. 3. Features suggestive of mild pulmonary venous congestion, appear new since prior study dated 03/02/2018.
--- NOTE | 2018-03-03 12:04 | Cons- Nephrology ---
General Information and HPI Consulting Request Date of Consult: 03/03/18 Requested By: Radha CR,Sangeeta History of Present Illness: Mr. Vieira is a 67 yo gentleman with history of HTN, DM (He denies DM history and says it only presents with steroids -- he had been seen by Dr. Lauren in 2014 at [facility] and in Dr. Christianson note he had a 3-4 yr history of DM at that time and was on metformin). He had a creatinine in the low to mid 1's in 2014 and was admitted to this hospital late on February 27 with SOB and clinical CHF. CXR on admission showed increased vascular markings and prior ECHO shows EF 35 % with high RV pressures and pulm HTN. Cr was 1.3 on admission and he underwent CTA with 320 cc of IV contrast which showed emphysemotous changes in the lung without PE (he had a prior CTA in December which also showed no PE). He was admitted and placed on IV lasix and IV antibiotics. Cr frances to 1.7 on 03/01, 2.4 yesterday and 3.0 today. He has had low U.O. despite IV lasix (1/2 liter yesterday) and tells me he hasn't voided (he has but not much). Bed weights suggest a weight gain of 7 kg over the past 4 days with a rollercoster change of 4 kg gain then loss then gain again, Allergies/Medications Allergies: Coded Allergies: NO KNOWN ALLERGIES (NONE 03/02/18) Home Med List: [ACETAZOLAMIDE ER] 500 MG 1 PO DAILY DIRECTED (Reported) Albuterol Sulfate (Proair Hfa) 90 MCG HFA.AER.AD 2 PUF INH Q4-6 PRN PRN SHORTNESS OF BREATH (Reported) Albuterol Sulfate 2.5 MG/3 ML (0.083 %) VIAL.NEB 1 Vial INH/ABILIO Q4P PRN SHORTNESS OF BREATH (Reported) Aspirin (Aspirin*) 81 MG TAB.CHEW 1 TAB PO DAILY HEART HEALTH (Reported) Atorvastatin Calcium (Lipitor) 10 MG TABLET 1 TAB PO DAILY CHOLESTEROL ( Reported) Budesonide/Formoterol Fumarate (Symbicort 160-4.5 Mcg Inhaler) 160 MCG-4.5 MCG/ ACTUATION HFA.AER.AD 2 PUF INH BID SHORTNESS OF BREATH (Reported) Cyanocobalamin (Vitamin B-12) (B-12) 1,000 MCG TABLET 1 TAB PO DAILY VITAMIN SUPPORT (Reported) Diltiazem HCl (Cardizem Cd) 240 MG CAP.ER.24H 480 MG PO DAILY Atrial fibrillation Ferrous Sulfate 325 MG TABLET.DR 325 MG PO BID Iron supplement Furosemide (Lasix) 40 MG TABLET 1 TAB PO BID Water pill Loperamide HCl (Loperamide) 2 MG CAPSULE 2 CAP PO BID PRN ANTI-DIARRHEAL ( Reported) Metformin HCl (Glucophage) 1,000 MG TABLET 1 TAB PO BID DIABETES (Reported) [NATURE MADE IRON] 65 MG TAB 4 TAB PO QHS BLOOD HEALTH (Reported) Oxycodone HCl/Acetaminophen (Percocet 5-325 MG Tablet) 5 MG-325 MG TABLET 1-2 TAB PO Q4-6 PRN PAIN tylenol alternatively. do not combine. Pantoprazole Sodium (Protonix) 40 MG TABLET.DR 1 TAB PO DAILY ACID REFLUX ( Reported) Prednisone 10 MG TABLET 1 TAB PO SEE ADMIN CRITERIA COPD TAKE 3 TABS X 3 DAYS 2 TABS X 3 DAYS 1 TAB X 3 DAYS THEN STOP.... Rivaroxaban (Xarelto) 20 MG TABLET 1 TAB PO DAILY BLOOD THINNER (Reported) with food Tiotropium [place] (Spiriva) 18 MCG CAP.W.DEV 1 CAP INH DAILY SHORTNESS OF BREATH (Reported) Review of Systems Review of Systems: As in HPI SOB better now with O2 chronic LE edema DENNISON fatigue other systems negative. Past History Travel History Traveled to [place] past 21 day No Medical History Blood Transfusion Hx: No Neurological: TIA 2010 EENT: cataracts Cardiovascular: AFIB, CHF, hypertension, hyperlipidemia Respiratory: COPD, 4L O2 DEPENDENT BIPAP AT NIGHT Gastrointestinal: GERD, ABD ANEURYSM Hepatic: NONE Renal: NONE Musculoskeletal: NONE Psychiatric: NONE Endocrine: diabetes Blood Disorders: NONE Cancer(s): prostate cancer GROUP INSURANCE SPECIALIST/Reproductive: NONE Surgical History Surgical History: cataract removal, PROSTATE SURGERY AAA REPAIR TONSILLECTOMY Endovascular AAA repair endovascular abdominal aortic aneurysm repair Family History Relations & Conditions If Any: MOTHER, ; Cause: COPD (chronic obstructive pulmonary disease). FATHER, ; Cause: Myocardial infarct. SISTER, ; Cause: Myocardial infarct. Psychosocial History Where Do You Live? Home Who Do You Live With? self Services at Home: None Primary Language: Slovenian Smoking Status: Former Smoker Functional Ability ADLs Independent: dressing, eating, toileting, bathing. Ambulation: independent IADLs Independent: shopping, housework, finances, food prep, telephone, transportation , medication admin. Exam & Diagnostic Data Vital Signs and I&O M NAD Skin neg rash Eyes anicteric ENT moist Lung baslar rales Cor RRR Abd obese soft N/T Ext 3+edema Results Pertinent Lab Results: Laboratory Tests 03/03 03/02 0655 1805 Chemistry Sodium (137 - 145 mmol/L) 133 L 134 L Potassium (3.5 - 5.1 mmol/L) 5.3 H 5.3 H Chloride (98 - 107 mmol/L) 91 L 93 L Carbon Dioxide (22 - 30 mmol/L) 27 28 Anion Gap (5 - 16) 14 13 BUN (9 - 20 mg/dL) 76 H 69 H Creatinine (0.7 - 1.2 mg/dL) 3.0 H 2.9 H Estimated GFR (>60 ml/min) 21 L 22 L BUN/Creatinine Ratio (7 - 25 %) 25.3 H 23.8 Hematology CBC w Diff MAN DIFF ORDERED WBC (4.8 - 10.8 /CUMM) 17.1 H RBC (4.70 - 6.10 /CUMM) 2.88 L Hgb (14.0 - 18.0 G/DL) 8.1 L Hct (42 - 52 %) 24.6 L MCV (80.0 - 94.0 FL) 85.7 MCH (27.0 - 31.0 PG) 28.1 MCHC (33.0 - 37.0 G/DL) 32.8 L RDW (11.5 - 14.5 %) 17.4 H Plt Count (130 - 400 /CUMM) 268 MPV (7.4 - 10.4 FL) 8.9 Gran % (42.2 - 75.2 %) 93.9 H Lymphocytes % (20.5 - 51.1 %) 1.6 L Monocytes % (1.7 - 9.3 %) 4.5 Eosinophils % (0 - 5 %) 0 Basophils % (0.0 - 2.0 %) 0 Absolute Granulocytes (1.4 - 6.5 /CUMM) 16.0 H Segmented Neutrophils (42.2 - 75.2 %) 96 H Absolute Lymphocytes (1.2 - 3.4 /CUMM) 0.3 L Lymphocytes (20.5 - 51.1 %) 3 L Monocytes (1.7 - 9.3 %) 1 L Absolute Monocytes (0.10 - 0.60 /CUMM) 0.8 H Absolute Eosinophils (0.0 - 0.7 /CUMM) 0 Absolute Basophils (0.0 - 0.2 /CUMM) 0 Nucleated RBCs (0.0 - 0.0 /100WBC) 2 H Platelet Estimate (ADEQUATE) ADEQUATE Hypochromic-Microcytic 2+ Poikilocytosis 2+ Anisocytosis 1+ Ovalocytes 1+ 03/02 03/01 0642 2045 Chemistry Sodium (137 - 145 mmol/L) 135 L 132 L Potassium (3.5 - 5.1 mmol/L) 5.5 H 4.8 Chloride (98 - 107 mmol/L) 93 L 93 L Carbon Dioxide (22 - 30 mmol/L) 27 28 Anion Gap (5 - 16) 16 12 BUN (9 - 20 mg/dL) 60 H 54 H Creatinine (0.7 - 1.2 mg/dL) 2.4 H 2.1 H Estimated GFR (>60 ml/min) 27 L 32 L BUN/Creatinine Ratio (7 - 25 %) 25.0 25.7 H Hematology CBC w Diff MAN DIFF ORDERED WBC (4.8 - 10.8 /CUMM) 10.9 H RBC (4.70 - 6.10 /CUMM) 3.00 L Hgb (14.0 - 18.0 G/DL) 8.3 L Hct (42 - 52 %) 26.0 L MCV (80.0 - 94.0 FL) 86.9 MCH (27.0 - 31.0 PG) 27.6 MCHC (33.0 - 37.0 G/DL) 31.7 L RDW (11.5 - 14.5 %) 17.4 H Plt Count (130 - 400 /CUMM) 280 MPV (7.4 - 10.4 FL) 8.9 Gran % (42.2 - 75.2 %) 94.1 H Lymphocytes % (20.5 - 51.1 %) 3.4 L Monocytes % (1.7 - 9.3 %) 2.3 Eosinophils % (0 - 5 %) 0 Basophils % (0.0 - 2.0 %) 0.2 Absolute Granulocytes (1.4 - 6.5 /CUMM) 10.2 H Absolute Lymphocytes (1.2 - 3.4 /CUMM) 0.4 L Absolute Monocytes (0.10 - 0.60 /CUMM) 0.3 Absolute Eosinophils (0.0 - 0.7 /CUMM) 0 Absolute Basophils (0.0 - 0.2 /CUMM) 0 Platelet Estimate (ADEQUATE) VERIFIED BY SMEAR Polychromasia 1+ Poikilocytosis 1+ Basophilic Stippling 1+ Anisocytosis 1+ Ovalocytes 1+ 03/01 0658 Chemistry Sodium (137 - 145 mmol/L) 138 Potassium (3.5 - 5.1 mmol/L) 4.6 Chloride (98 - 107 mmol/L) 96 L Carbon Dioxide (22 - 30 mmol/L) 29 Anion Gap (5 - 16) 13 BUN (9 - 20 mg/dL) 43 H Creatinine (0.7 - 1.2 mg/dL) 1.7 H Estimated GFR (>60 ml/min) 40 L BUN/Creatinine Ratio (7 - 25 %) 25.3 H Hematology CBC w Diff NO MAN DIFF REQ WBC (4.8 - 10.8 /CUMM) 8.5 RBC (4.70 - 6.10 /CUMM) 2.90 L Hgb (14.0 - 18.0 G/DL) 8.1 L Hct (42 - 52 %) 25.3 L MCV (80.0 - 94.0 FL) 87.4 MCH (27.0 - 31.0 PG) 28.1 MCHC (33.0 - 37.0 G/DL) 32.1 L RDW (11.5 - 14.5 %) 17.2 H Plt Count (130 - 400 /CUMM) 300 MPV (7.4 - 10.4 FL) 9.1 Gran % (42.2 - 75.2 %) 92.6 H Lymphocytes % (20.5 - 51.1 %) 4.5 L Monocytes % (1.7 - 9.3 %) 2.8 Eosinophils % (0 - 5 %) 0.1 Basophils % (0.0 - 2.0 %) 0 Absolute Granulocytes (1.4 - 6.5 /CUMM) 7.9 H Absolute Lymphocytes (1.2 - 3.4 /CUMM) 0.4 L Absolute Monocytes (0.10 - 0.60 /CUMM) 0.2 Absolute Eosinophils (0.0 - 0.7 /CUMM) 0 Absolute Basophils (0.0 - 0.2 /CUMM) 0 Assessment/Plan Assessment/Recommendations Assessment: MADISON due to IV contrast. Of note he did also have MADISON after his IV contrast in December (Cr 1.5->2.1 in 3 days) which I assume is likely related to IV contrast (we were not consulted that admission so I don't have details but the time course is consistent with contrast nephropathy). The typical course of contrast nephropathy is a peak of creatinine around 3-7 days after the contrast and recovery 5-10 days after contrast. He will need to remain in the hospital until renal function recovers to normal (expect that to be end of the week or so ). Mounting data suggests that repeated episodes of MADISON are a major risk factor for CKD and that each episode of MADISON does not completely recover even if creatinine comes back to prior baseline. Treatment is entirely supportive and attempts to minimize requirement for dialytic intervention. To this end 1) K restriction = he should be on a 2g K 2g Na 1000 cc fluid restricted diet 2) NO role for IVF will not help after the fact and is only useful if volume depleted - he is not 3) Diuresis with IV lasix - he will require doses of 80 to 100 mg IV bid He denies DM but has a history of the same and admission glucose is 213 and all glucose here are high. He should have glucose checked with daily labs (oleg since admission) and should have Hg A1C checked DM treated if high (I suspect it will be). To this end please check a 24 hr urine for protein/creatinine once renal function returns close to normal (should be done prior to discharge). Thanks Rigo Herrera MD. Recommendations: .
--- NOTE | 2018-03-03 14:30 | PN- Pulmonary ---
Subjective HPI/Critical Care Issues: Overnight pt stated he felt more short of breath. He did not have to increase o2 requiremetn but expressed subjective shortness of breath. He also had one episdoe of coughing of about 1 tsp of blood this AM. His lasix was held as well since his renal function seemed to worsen. Review of Systems Constitutional: Denies: malaise. EENTM: Reports: no symptoms. Cardiovascular: Reports: peripheral edema. Denies: chest pain, palpitations. Respiratory: Reports: cough, orthopnea, short of breath, sputum production. Gastrointestinal: Reports: no symptoms. Genitourinary: Reports: no symptoms. Musculoskeletal: Reports: no symptoms. Objective Current Medications: Current Medications Sig/Eve Start time Last Medication Dose Route Stop Time Status Admin Albuterol Sulfate 3 ML EVERY 4 HRS/AWAKE 02/28 1200 AC 03/03 INH 1151 Aspirin 81 MG DAILY 02/28 1000 AC 03/03 PO 0857 Atorvastatin Calcium 10 MG DAILY 02/28 1000 AC 03/03 PO 0859 Budesonide/ 2 PUF BID 03/01 0900 AC 03/03 Formoterol Fumarate INH 0901 Diltiazem HCl 240 MG DAILY 03/03 0900 AC 03/03 PO 0900 Ferrous Sulfate 325 MG BID 02/28 1000 AC 03/03 PO 0858 Furosemide 60 MG BID 03/02 2100 CAN PO 03/02 2300 Furosemide 60 MG 7:30 AM, & 4:30 PM 03/02 1100 DC 03/02 PO 1115 Guaifenesin/ 10 ML ONCE ONE 03/03 0930 DC Dextromethorphan PO 03/03 0931 Insulin Aspart 0 TIDAC 02/28 0800 AC 03/03 SC 1420 Loperamide HCl 4 MG BID PRN 02/28 0415 AC PO Metoprolol Tartrate 25 MG BID 02/28 1324 AC 03/03 PO 0858 Omeprazole 20 MG DAILY AC 02/28 0700 AC 03/03 PO 0628 Prednisone 10 MG DAILY 03/09 0900 AC PO Prednisone 20 MG DAILY 03/07 0900 AC PO 03/08 0901 Prednisone 30 MG DAILY 03/05 0900 AC PO 03/06 0901 Prednisone 40 MG 1000 03/04 1000 AC PO 03/04 1001 Prednisone 40 MG 1000 03/03 1000 DC 03/03 PO 03/03 1001 0857 Prednisone 40 MG BID 03/02 0954 DC 03/02 PO 03/02 2101 2143 Rivaroxaban 20 MG DAILY 02/28 1000 AC 03/03 PO 0857 Sodium Chloride 2 SPRAY Q4P PRN 03/01 2100 AC CESAR Tiotropium [place] 1 PUF DAILY 03/01 0900 AC 03/03 INH 0906 Vital Signs & I&O Last 24 Hrs of Vitals and I&O: Vital Signs Date Time Temp Pulse Resp B/P B/P Pulse O2 O2 Flow FiO2 Mean Ox Delivery Rate 03/03 0959 94 Nasal 4.0L Cannula 03/03 0858 77 106/70 03/03 0833 94 Nasal 4.0L Cannula 03/03 0724 98.2 75 20 100/67 90 03/03 0000 Nasal 4.0L Cannula 03/02 2259 97.8 84 18 102/60 93 Nasal 4.0L Cannula 03/02 2147 76 102/60 03/02 1719 95 Nasal 4.0L Cannula 03/02 1628 95 Nasal 4.0L Cannula 03/02 1455 98.1 81 18 104/58 95 Intake & Output 03/03 1600 03/03 0800 03/03 0000 Intake Total Output Total 200 200 Balance -200 -200 Number 1 1 Bowel Movements Output, Urine 200 200 Patient 194 lb 194 lb Weight Impression/Plan Impression/Plan Impression/Plan: This is a gentleman with COPD, bedtime BiPAP, now has significant CHF exacerbation. No severe COPD exacerbation noted this time. Ongoing diuresis. Issues * Acute on chronic hypercarbic and hypoxemic respiratory failure related to severe cardiomyopathy, congestive heart failure with very severe emphysema * Acute systolic heart failure * Renal failure with chronic kidney disease * Hemoptysis- He did have mild hemoptysis, recent CT did not reveal any malignancy probably related to his bronchitis. Note that patient is on full dose Xeralto, this should be adjusted to renal large should be switched to warfarin. If he has further hemoptysis this needs to be stopped temporarily RECOMMENDATION continue diuresis as noted by renal Continue BiPAP at bedtime As cardiology about the appropriate anticoagulation Monitor renal function Continue nebulizers Continue current dose steroids Follow hemoglobin Check chest x-ray if his hemoptysis gets worse
[2018-03-03 16:12] VITALS: BP 146/70
--- NOTE | 2018-03-03 20:50 | PN- Cardiology ---
Subjective Subjective: Feeling poorly today with worsening shortness of breath. Objective Vital Signs and I&Os Vital Signs Date Time Temp Pulse Resp B/P B/P Pulse O2 O2 Flow FiO2 Mean Ox Delivery Rate 03/03 1750 94 Nasal 4.0L Cannula 03/03 1638 94 Nasal 4.0L Cannula 03/03 1612 97.5 73 18 146/70 93 03/03 0959 94 Nasal 4.0L Cannula 03/03 0858 77 106/70 03/03 0833 94 Nasal 4.0L Cannula 03/03 0724 98.2 75 20 100/67 90 03/03 0000 Nasal 4.0L Cannula 03/02 2259 97.8 84 18 102/60 93 Nasal 4.0L Cannula 03/02 2147 76 102/60 Intake & Output 03/03 1600 03/03 0800 03/03 0000 03/02 1600 03/02 0800 03/02 0000 Intake Total 400 400 110 750 Output Total 300 200 200 750 250 Balance 100 -200 -200 -350 110 500 Intake, IV 10 Intake, Oral 400 400 100 750 Number 1 1 1 0 Bowel Movements Output, Urine 300 200 200 750 250 Patient 194 lb 194 lb 185 lb Weight Weight Bed scale Measurement Method Physical Exam: Well-developed, overweight male in mild respiratory distress with oxygen in place. Vital signs: See above. Neck: No JVD, no bruits. Lungs: Decreased breath sounds bilaterally. Heart: S1, S2. Extremities: 2-3+ bilateral lower extremity edema. Current Medications: Current Medications Sig/Eve Start time Last Medication Dose Route Stop Time Status Admin Albuterol Sulfate 3 ML EVERY 4 HRS/AWAKE 02/28 1200 AC 03/03 INH 2002 Aspirin 81 MG DAILY 02/28 1000 AC 03/03 PO 0857 Atorvastatin Calcium 10 MG DAILY 02/28 1000 AC 03/03 PO 0859 Budesonide/ 2 PUF BID 03/01 0900 AC 03/03 Formoterol Fumarate INH 09 Diltiazem HCl 240 MG DAILY 03/03 0900 AC 03/03 PO 0900 Ferrous Sulfate 325 MG BID 02/28 1000 AC 03/03 PO 0858 Furosemide 80 MG 7:30 AM, & 4:30 PM 03/03 1630 AC 03/03 IV 1553 Guaifenesin/ 10 ML ONCE ONE 03/03 0930 DC Dextromethorphan PO 03/03 09 Insulin Aspart 0 TIDAC 02/28 0800 AC 03/03 SC 1420 Loperamide HCl 4 MG BID PRN 02/28 0415 AC PO Metoprolol Tartrate 25 MG BID 02/28 1324 AC 03/03 PO 0858 Omeprazole 20 MG DAILY AC 02/28 0700 AC 03/03 PO 0628 Prednisone 10 MG DAILY 03/09 0900 AC PO Prednisone 20 MG DAILY 03/07 0900 AC PO 03/08 0901 Prednisone 30 MG DAILY 03/05 0900 AC PO 03/06 0901 Prednisone 40 MG 1000 03/04 1000 AC PO 03/04 1001 Prednisone 40 MG 1000 03/03 1000 DC 03/03 PO 03/03 1001 0857 Prednisone 40 MG BID 03/02 0954 DC 03/02 PO 03/02 2101 2143 Rivaroxaban 20 MG DAILY 02/28 1000 AC 03/03 PO 0857 Sodium Chloride 2 SPRAY Q4P PRN 03/01 2100 AC CESAR Tiotropium [place] 1 PUF DAILY 03/01 0900 AC 03/03 INH 0906 Results Last 48 Hrs of Labs/Mics: Laboratory Tests 03/03/18 0655: Anion Gap 14, Estimated GFR 21 L, BUN/Creatinine Ratio 25.3 H, CBC w Diff MAN DIFF ORDERED, RBC 2.88 L, MCV 85.7, MCH 28.1, MCHC 32.8 L, RDW 17.4 H, MPV 8.9, Gran % 93.9 H, Lymphocytes % 1.6 L, Monocytes % 4.5, Eosinophils % 0, Basophils % 0, Absolute Granulocytes 16.0 H, Segmented Neutrophils 96 H, Absolute Lymphocytes 0.3 L, Lymphocytes 3 L, Monocytes 1 L, Absolute Monocytes 0.8 H, Absolute Eosinophils 0, Absolute Basophils 0, Nucleated RBCs 2 H, Platelet Estimate ADEQUATE, Hypochromic-Microcytic 2+, Poikilocytosis 2+, Anisocytosis 1+, Ovalocytes 1+ 03/02/18 1805: Anion Gap 13, Estimated GFR 22 L, BUN/Creatinine Ratio 23.8 03/02/18 0642: Anion Gap 16, Estimated GFR 27 L, BUN/Creatinine Ratio 25.0, CBC w Diff MAN DIFF ORDERED, RBC 3.00 L, MCV 86.9, MCH 27.6, MCHC 31.7 L, RDW 17.4 H, MPV 8.9, Gran % 94.1 H, Lymphocytes % 3.4 L, Monocytes % 2.3, Eosinophils % 0, Basophils % 0.2, Absolute Granulocytes 10.2 H, Absolute Lymphocytes 0.4 L, Absolute Monocytes 0.3, Absolute Eosinophils 0, Absolute Basophils 0, Platelet Estimate VERIFIED BY SMEAR, Polychromasia 1+, Poikilocytosis 1+, Basophilic Stippling 1+, Anisocytosis 1+, Ovalocytes 1+ 03/01/182044: Anion Gap 12, Estimated GFR 32 L, BUN/Creatinine Ratio 25.7 H Recent Imaging Studies: CXR 03/03/2018: 1. Persistent nonspecific airspace opacity at right lung base with features suggestive of small right-sided effusion, thickening or combination thereof. 2. Persistent enlargement of the cardiomediastinal silhouette. 3. Features suggestive of mild pulmonary venous congestion, appear new since prior study dated 03/02/2018. Assessment/Plan Assessment/Plan 67-year-old male with a history of end-stage oxygen-dependent COPD w/ chronic hypercapnic respiratory failure, HTN, HLD, AAA s/p endovascular stent, chronic AF on AC, and LV dysfunction (EF 30-35%) with recurrent HFrEF. AKA secondary to IV contrast. Recommendations: * Continue IV diuresis given evidence of persistent volume overload. * Follow-up with nephrology recommendations. * DVT prophylaxis. Continue telemetry? Yes
[2018-03-03 23:00] VITALS: BP 102/62
--- NOTE | 2018-03-04 07:44 | Event Note ---
Event Note Event Note: Situation: Nurses asked patient to be evaluated for increased lethargy and 'not his usual himself' Brief: 67-year-old gentleman with a past medical history of chronic respiratory failure due to COPD on 4 L of oxygen at baseline with nocturnal BiPAP was admitted for evaluation of worsening shortness of breath. On today's exam he was found to be increasingly lethargic with poor mentation even with deep sternal rub. The nurse informed that the patient's oxygen requirement increased from 4.0 to 6.0 L. ABG was done which showed 7.21/66/59/26. Patient was started on BiPAP for improvement. A/R: * Repeat ABG in an hour * Monitor for improvement. * Patient signed out to morning team.
[2018-03-04 08:15] LABS: ABSOLUTE BASOPHIL COUNT 0 /CUMM (0.0-0.2); ABSOLUTE EOSINOPHIL COUNT 0 /CUMM (0.0-0.7); ABSOLUTE LYMPH COUNT 0.2 /CUMM (1.2-3.4); ABSOLUTE MONOCYTE COUNT 0.5 /CUMM (0.10-0.60); BASOPHIL % 0 % (0.0-2.0); EOSINOPHIL % 0 % (0-5); HEMATOCRIT 25.2 % (42-52); MEAN CORPUSCULAR HGB 28.2 PG (27.0-31.0); MEAN CORPUSCULAR HGB CONC 32.2 G/DL (33.0-37.0); MEAN CORPUSCULAR VOLUME 87.4 FL (80.0-94.0); MEAN PLATELET VOLUME 8.8 FL (7.4-10.4); PLATELET COUNT 270 /CUMM (130-400); RBC DISTRIBUTION WIDTH 17.2 % (11.5-14.5); RED BLOOD CELL CT 2.89 /CUMM (4.70-6.10); WHITE BLOOD CELL COUNT 15.7 /CUMM (4.8-10.8)
[2018-03-04 08:39] LABS: GRANULOCYTE % 95.4 % (42.2-75.2)
--- NOTE | 2018-03-04 09:15 | PN- Housestaff ---
Subjective Follow-up For: respiratory failrue Subjective: Overnight pt seemed to be more somnolent and ABG showed pH 7.2 wtih significatn retention. He was placed on nocturnal bipap. He is quite somnolent adn barely rousable to sternal rub this am. He was on bipap. Family meeting was held and decision was for pt to become DNR/DNI. Pt will not go to unit if he deteriorates. Review of Systems Constitutional: Reports: no symptoms. Objective Last 24 Hrs of Vital Signs/I&O Vital Signs Date Time Temp Pulse Resp B/P B/P Pulse O2 O2 Flow FiO2 Mean Ox Delivery Rate 03/04 0926 BIPAP 03/04 0913 92 03/04 0824 92 BIPAP 50% 03/04 0655 101 93 03/04 0627 Nasal 5.0L Cannula 03/04 0000 92 Nasal 6.0L Cannula 03/03 2300 98.0 108 22 102/62 90 03/03 2206 95 102/62 03/03 1750 94 Nasal 4.0L Cannula 03/03 1638 94 Nasal 4.0L Cannula 03/03 1612 97.5 73 18 146/70 93 03/03 0959 94 Nasal 4.0L Cannula Intake & Output 03/04 1600 03/04 0800 03/04 0000 Intake Total Output Total 100 Balance -100 Number 2 2 Bowel Movements Output, Urine 100 Patient 85.474 kg Weight Weight Bed scale Measurement Method Physical Exam General Appearance: Moderate Distress Skin: No Significant Lesion HEENT: Atraumatic, Mucous Membr. moist/pink Neck: Supple Cardiovascular: tachcardic Lungs: little air movement. Crackles and rhonchi throughout. Abdomen: Soft, No Tenderness Extremities: 3+ edema Current Medications: Current Medications Sig/Eve Start time Last Medication Dose Route Stop Time Status Admin Albuterol Sulfate 3 ML EVERY 4 HRS/AWAKE 02/28 1200 AC 03/04 INH 0810 Aspirin 81 MG DAILY 02/28 1000 AC 03/03 PO 0857 Atorvastatin Calcium 10 MG DAILY 02/28 1000 AC 03/03 PO 0859 Budesonide/ 2 PUF BID 03/01 0900 AC 03/03 Formoterol Fumarate INH 2223 Diltiazem HCl 240 MG DAILY 03/03 0900 AC 03/03 PO 0900 Ferrous Sulfate 325 MG BID 02/28 1000 AC 03/03 PO 215 Furosemide 80 MG 7:30 AM, & 4:30 PM 03/03 1630 AC 03/04 IV 0842 Insulin Aspart 0 TIDAC 02/28 0800 AC 03/03 SC 1810 Loperamide HCl 4 MG BID PRN 02/28 0415 AC PO Metoprolol Tartrate 25 MG BID 02/28 1324 AC 03/03 PO 2206 Omeprazole 20 MG DAILY AC 02/28 0700 AC 03/04 PO 0546 Prednisone 10 MG DAILY 03/09 09 AC PO Prednisone 20 MG DAILY 03/07 0900 AC PO 03/08 0901 Prednisone 30 MG DAILY 03/05 0900 AC PO 03/06 0901 Prednisone 40 MG 1000 03/04 1000 DC PO 03/04 1001 Rivaroxaban 20 MG DAILY 02/28 1000 AC 03/03 PO 0857 Sodium Chloride 2 SPRAY Q4P PRN 03/01 2100 AC CESAR Tiotropium [place] 1 PUF DAILY 03/01 0900 AC 03/03 INH 0906 Last 24 Hrs of Lab/Sridhar Results Last 24 Hrs of Labs/Mics: Laboratory Tests 03/04/18 0857: pH 7.25 *L, pCO2 66 *H, pO2 77 L, HCO3 28, ABG O2 Sat (Measured) 92.0 L, P-50 (Temp Corrected) N, Carboxyhemoglobin 1.2 L, O2 Concentration % 50%, Temperature 98.0, Respiration Rate 24, O2 Delivery Method BIPAP, Vent Mode ST, Expiratory Pressure 4, Inspiratory Pressure 14, Phlebotomy Draw Site RIGHT RADIAL 03/04/18 0650: Anion Gap 17 H, Estimated GFR 18 L, BUN/Creatinine Ratio 24.7, Hemoglobin A1c Pending, CBC w Diff NO MAN DIFF REQ, RBC 2.89 L, MCV 87.4, MCH 28.2, MCHC 32.2 L, RDW 17.2 H, MPV 8.8, Gran % 95.4 H, Lymphocytes % 1.5 L, Monocytes % 3.1, Eosinophils % 0, Basophils % 0, Absolute Granulocytes 15.0 H, Absolute Lymphocytes 0.2 L, Absolute Monocytes 0.5, Absolute Eosinophils 0, Absolute Basophils 0, Ur Random Creatinine Cancelled, U Random Total Protein Cancelled 03/04/18 0620: pH 7.21 *L, pCO2 66 *H, pO2 59 L, HCO3 26, ABG O2 Sat (Measured) 85.0 L, P-50 (Temp Corrected) Y, Carboxyhemoglobin 0 L, O2 Concentration % 5 LPM, Temperature 97.5, O2 Delivery Method N/C, Phlebotomy Draw Site RIGHT RADIAL Assessment/Plan Assessment: 67-year-old male with a PMHx of end stage COPD on 4 L of oxygen at baseline at home, with BiPAP at night, HFrEF 30%, A. fib on Xarelto, GERD, TIA, NIDDM, HTN, HLD, AAA s/p endovascular repair now here for hypoxic and hypercarbic respiratory failure likely secondary to his COPD and systolic heart failure which has now recently been complicated by acute kidney injury. Plan Contrast induced nephropathy: Pt recieved dye for CTA on first day of admission. His Cr has been rising since, now up to 3.4. * Con't Lasix between 80-100 IV BID * Appreciate nephro recs * Will plan for 24hr urine protein creatinine ratio when Cr normalizes * Switched to renal dialysis diet to keep Potassium low * Con't volume restriction Hyperkalemia: Likely 2/2 to his renal failure. * Con't k restricted diet * Repeat BEP at 6pm today * Con't Lasix SOB: Likely a mix of CHF/ COPD exacerbation. Pt has terminal COPD and he has systolic heart failure with EF 30-35. His respiratory status is still tenuous and he is not making much urine despite generous amount of Lasix. * Continue night time bipap and 3.5 L to 4L oxygen * Repeat ABG . * TRC/nebulizers and Symbicort and Spiriva * Sputum culture so far negative. * Steroid taper * XRY STAT * Appreciate pulm recs A.fib: Follow on tele floor, trops negative. ekg on admission showed afib with rvr, extended qtc with resolution on repeat ekg and now normal heart rates on tele. 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 * Continue Lopressor 25 mg twice a day For GERD, TIA, NIDDM, HTN, HLD * Continue PPI * Hold oral antihyperglycemic and continue low dose ss coverage. patient is on steroids and has blood sugars around 300. * heart healthy diet and continue to monitor sugars. * Continue statin Anemia * Persitently low Hb, in 2016 iron studies show iron deficiency anemia so we will start him on iron and also guaic stools to determine cause for his anemia. -Heart healthy diet -DVT Ppx with ALPS and Xarelto -FC Problem List: 1. COPD exacerbation Pain Ratin Pain Location: none Pain Goal: Remain pain free Pain Plan: none Tomorrow's Labs & Rationales: cbc bep
--- NOTE | 2018-03-04 10:00 | Event Note ---
Event Note Event Note: Discussed patient with Dr. Beatris Staley who had a goals of care discussion with patient's . It was decided at that time to make patient DNR/DNI and his requested to be informed of any further changes of his condition at which time she will consider further changes in CODE STATUS is appropriate.
--- NOTE | 2018-03-04 10:56 | RADIOLOGY REPORT ---
EXAMINATION: XR PORTABLE CHEST CLINICAL INFORMATION: Worsening respiratory status. Increasing hypoxia. COMPARISON: Chest done on 03/03/2018. TECHNIQUE: Portable frontal view of the chest was obtained. FINDINGS: Previously documented airspace opacity at right lung base shows interval progression. There is evolving area of bilateral upper lobar airspace disease. Mild pulmonary venous congestion appears stable. The cardiomediastinal silhouette is moderately enlarged. There is stable likely small right-sided pleural effusion. IMPRESSION: 1. Evolving areas of airspace opacities at both upper lobes (right greater than left). 2. Increasing airspace disease at right lung base. 3. Stable moderate enlargement of the cardiomediastinal silhouette and small likely right-sided pleural effusion.
--- NOTE | 2018-03-04 12:03 | PN- Pulmonary ---
Subjective HPI/Critical Care Issues: Events and data reviewed Patient has had a significant deterioration This morning he was found to be in worsening respiratory insufficiency and significant hypercarbia. When I saw him he was awake only on significant verbal commands and painful commands and was responding at times. He was moving his right side more than the left side. Continues to be in progressive renal failure Progressing slowly in to ongoing respiratory failure Continues to be on BiPAP Objective Current Medications: Current Medications Sig/Eve Start time Last Medication Dose Route Stop Time Status Admin Albuterol Sulfate 3 ML EVERY 4 HRS/AWAKE 02/28 1200 AC 03/04 INH 0810 Aspirin 81 MG DAILY 02/28 1000 AC 03/03 PO 0857 Atorvastatin Calcium 10 MG DAILY 02/28 1000 AC 03/03 PO 0859 Budesonide/ 2 PUF BID 03/01 0900 AC 03/03 Formoterol Fumarate INH 2223 Diltiazem HCl 240 MG DAILY 03/03 0900 AC 03/03 PO 0900 Ferrous Sulfate 325 MG BID 02/28 1000 AC 03/03 PO 2159 Furosemide 80 MG 7:30 AM, & 4:30 PM 03/03 1630 AC 03/04 IV 0842 Insulin Aspart 0 TIDAC 02/28 0800 AC 03/03 SC 1810 Loperamide HCl 4 MG BID PRN 02/28 0415 AC PO Metoprolol Tartrate 25 MG BID 02/28 1324 AC 03/03 PO 2206 Omeprazole 20 MG DAILY AC 02/28 0700 AC 03/04 PO 0546 Prednisone 10 MG DAILY 03/09 0900 AC PO Prednisone 20 MG DAILY 03/07 0900 AC PO 03/08 0901 Prednisone 30 MG DAILY 03/05 0900 AC PO 03/06 0901 Prednisone 40 MG 1000 03/04 1000 DC PO 03/04 1001 Rivaroxaban 20 MG DAILY 02/28 1000 DC 03/03 PO 0857 Sodium Chloride 2 SPRAY Q4P PRN 03/01 2100 AC CESAR Tiotropium [place] 1 PUF DAILY 03/01 0900 AC 03/03 INH 0906 Vital Signs & I&O Last 24 Hrs of Vitals and I&O: Vital Signs Date Time Temp Pulse Resp B/P B/P Pulse O2 O2 Flow FiO2 Mean Ox Delivery Rate 03/04 1149 94 03/04 0926 BIPAP 03/04 0913 92 03/04 0824 92 BIPAP 50% 03/04 0655 101 93 03/04 0627 Nasal 5.0L Cannula 03/04 0000 92 Nasal 6.0L Cannula 03/03 2300 98.0 108 22 102/62 90 03/03 2206 95 102/62 03/03 1750 94 Nasal 4.0L Cannula 03/03 1638 94 Nasal 4.0L Cannula 03/03 1612 97.5 73 18 146/70 93 Intake & Output 03/04 1600 03/04 0800 03/04 0000 Intake Total Output Total 100 Balance -100 Number 2 2 Bowel Movements Output, Urine 100 Patient 188 lb Weight Weight Bed scale Measurement Method Laboratory Tests 03/04 03/04 0857 0650 Blood Gas pH (7.35 - 7.45 PH) 7.25 *L pCO2 (35 - 45 TORR) 66 *H pO2 (80 - 100 TORR) 77 L HCO3 (21 - 28 MEQ/L) 28 ABG O2 Sat (Measured) (>96.0 %) 92.0 L P-50 (Temp Corrected) N Carboxyhemoglobin (1.5 - 5.0 %) 1.2 L O2 Concentration % 50% Temperature (97.0 - 100.0 FARH) 98.0 Respiration Rate (BPM) 24 O2 Delivery Method BIPAP Vent Mode ST Expiratory Pressure (CM H2O P) 4 Inspiratory Pressure (CM H2O P) 14 Chemistry Sodium (137 - 145 mmol/L) 136 L Potassium (3.5 - 5.1 mmol/L) 5.5 H Chloride (98 - 107 mmol/L) 92 L Carbon Dioxide (22 - 30 mmol/L) 26 Anion Gap (5 - 16) 17 H BUN (9 - 20 mg/dL) 84 H Creatinine (0.7 - 1.2 mg/dL) 3.4 H Estimated GFR (>60 ml/min) 18 L BUN/Creatinine Ratio (7 - 25 %) 24.7 Hemoglobin A1c (4.2 - 5.8 %) Pending Hematology CBC w Diff NO MAN DIFF REQ WBC (4.8 - 10.8 /CUMM) 15.7 H RBC (4.70 - 6.10 /CUMM) 2.89 L Hgb (14.0 - 18.0 G/DL) 8.1 L Hct (42 - 52 %) 25.2 L MCV (80.0 - 94.0 FL) 87.4 MCH (27.0 - 31.0 PG) 28.2 MCHC (33.0 - 37.0 G/DL) 32.2 L RDW (11.5 - 14.5 %) 17.2 H Plt Count (130 - 400 /CUMM) 270 MPV (7.4 - 10.4 FL) 8.8 Gran % (42.2 - 75.2 %) 95.4 H Lymphocytes % (20.5 - 51.1 %) 1.5 L Monocytes % (1.7 - 9.3 %) 3.1 Eosinophils % (0 - 5 %) 0 Basophils % (0.0 - 2.0 %) 0 Absolute Granulocytes (1.4 - 6.5 /CUMM) 15.0 H Absolute Lymphocytes (1.2 - 3.4 /CUMM) 0.2 L Absolute Monocytes (0.10 - 0.60 /CUMM) 0.5 Absolute Eosinophils (0.0 - 0.7 /CUMM) 0 Absolute Basophils (0.0 - 0.2 /CUMM) 0 Miscellaneous Phlebotomy Draw Site RIGHT RADIAL Urines Ur Random Creatinine Cancelled U Random Total Protein Cancelled 03/04 03/03 0620 0655 Blood Gas pH (7.35 - 7.45 PH) 7.21 *L pCO2 (35 - 45 TORR) 66 *H pO2 (80 - 100 TORR) 59 L HCO3 (21 - 28 MEQ/L) 26 ABG O2 Sat (Measured) (>96.0 %) 85.0 L P-50 (Temp Corrected) Y Carboxyhemoglobin (1.5 - 5.0 %) 0 L O2 Concentration % 5 LPM Temperature (97.0 - 100.0 FARH) 97.5 O2 Delivery Method N/C Chemistry Sodium (137 - 145 mmol/L) 133 L Potassium (3.5 - 5.1 mmol/L) 5.3 H Chloride (98 - 107 mmol/L) 91 L Carbon Dioxide (22 - 30 mmol/L) 27 Anion Gap (5 - 16) 14 BUN (9 - 20 mg/dL) 76 H Creatinine (0.7 - 1.2 mg/dL) 3.0 H Estimated GFR (>60 ml/min) 21 L BUN/Creatinine Ratio (7 - 25 %) 25.3 H Hematology CBC w Diff MAN DIFF ORDERED WBC (4.8 - 10.8 /CUMM) 17.1 H RBC (4.70 - 6.10 /CUMM) 2.88 L Hgb (14.0 - 18.0 G/DL) 8.1 L Hct (42 - 52 %) 24.6 L MCV (80.0 - 94.0 FL) 85.7 MCH (27.0 - 31.0 PG) 28.1 MCHC (33.0 - 37.0 G/DL) 32.8 L RDW (11.5 - 14.5 %) 17.4 H Plt Count (130 - 400 /CUMM) 268 MPV (7.4 - 10.4 FL) 8.9 Gran % (42.2 - 75.2 %) 93.9 H Lymphocytes % (20.5 - 51.1 %) 1.6 L Monocytes % (1.7 - 9.3 %) 4.5 Eosinophils % (0 - 5 %) 0 Basophils % (0.0 - 2.0 %) 0 Absolute Granulocytes (1.4 - 6.5 /CUMM) 16.0 H Segmented Neutrophils (42.2 - 75.2 %) 96 H Absolute Lymphocytes (1.2 - 3.4 /CUMM) 0.3 L Lymphocytes (20.5 - 51.1 %) 3 L Monocytes (1.7 - 9.3 %) 1 L Absolute Monocytes (0.10 - 0.60 /CUMM) 0.8 H Absolute Eosinophils (0.0 - 0.7 /CUMM) 0 Absolute Basophils (0.0 - 0.2 /CUMM) 0 Nucleated RBCs (0.0 - 0.0 /100WBC) 2 H Platelet Estimate (ADEQUATE) ADEQUATE Hypochromic-Microcytic 2+ Poikilocytosis 2+ Anisocytosis 1+ Ovalocytes 1+ Miscellaneous Phlebotomy Draw Site RIGHT RADIAL 03/02 1805 Chemistry Sodium (137 - 145 mmol/L) 134 L Potassium (3.5 - 5.1 mmol/L) 5.3 H Chloride (98 - 107 mmol/L) 93 L Carbon Dioxide (22 - 30 mmol/L) 28 Anion Gap (5 - 16) 13 BUN (9 - 20 mg/dL) 69 H Creatinine (0.7 - 1.2 mg/dL) 2.9 H Estimated GFR (>60 ml/min) 22 L BUN/Creatinine Ratio (7 - 25 %) 23.8 Microbiology Date/Time Procedure - Status Source Growth 03/04 1123 Urine Culture - ORD URINE ROUT Impression/Plan Impression/Plan Impression/Plan: General Appearance: Obtunded in acute respiratory distress on BiPAP at times opens his eyes does follow commands more movement on the right than the left Skin: No Significant Lesion HEENT: Atraumatic, PERRLA, EOMI, Mucous Membr. moist/pink Neck: Supple, No JVD Cardiovascular: Regular Rate, Normal S1, Normal S2, No Murmurs Lungs: crackles throughout. slight wheeze present on l. side. 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 There is obvious significant deterioration. Patient seems to be not responding to noninvasive ventilation and is now on high-dose Lasix. He continues to have acute systolic heart failure as well. Prior hemoptysis noted which seems to be better. * Significant weakness in the left side not sure if he did have a stroke Family meeting held at that time. As patient is critically ill. Patient's prior wishes were not to be intubated and apparently has been progressively weak in the recent past. Patient's was now the surrogate decision maker wished the patient to continue maximum conservative therapy on a regular medical floor with noninvasive ventilation. She wished him to be made comfort if he gets worse. If not Current therapy which would include BiPAP, diuresis and other management as we are doing right now. Patient will be DNR/DNI and no ICU transfer no pressors no triple-lumen RECOMMENDATION Continue noninvasive ventilation ABG only if he is improving to see if he can come off BiPAP Keep his head of bed elevated Continue diuresis if his blood pressure tolerates Continue other medications only the can take by mouth if not nothing by mouth Hold Xeralto as his renal function is worsening If he significantly improved she would need to have a CT of the head Obviously if he improves Xeralto dose needs to be adjusted for his renal functio Continue nebulizers Start IV Solu-Medrol 60 daily Patient is DNR/DNI, no ICU transfer, no triple-lumen, no vasopressors. If he does get worse we will comfort him if not continue maximum aggressive therapy Discuss with the team and attending of record Patient is critically ill total time spent 45 minutes
[2018-03-04 14:58] VITALS: BP 130/64
--- NOTE | 2018-03-04 17:40 | PN- Nephrology ---
Assessment/Plan Nephrology Assessment: MADISON likely related to contrast nephropathy from CTA February 27. He is responding to lasix but is still volume overloaded. I spoke to the patient and his about his kidney disease. They would want dialysis of it were temporary. I suspect we will be able to manage him without dialysis as long as he continues to respond to lasix. Rec: increase lasix to 80 IV tid additional doses okay as needed. Rigo Herrera MD. Suggestion: . Subjective Subjective: Events noted. Mr. Vieira is on BIPAP now. His is with him. He feels better. U.O. was 750 cc with 2 doses of lasix yesterday and he voided 500 cc with this mornings dose. I discussed with the patient and his about the acute nature of his MADISON and the expectation that it would recover later this week (90%). Objective Vital Signs and I&Os Pleasant M on BIPAP 130/64 96.3 98 Lungs basilar crackes Cor RRR Abd soft Ext 1+edema Results Pertinent Lab Results: Laboratory Tests 03/04 03/04 0857 0650 Blood Gas pH (7.35 - 7.45 PH) 7.25 *L pCO2 (35 - 45 TORR) 66 *H pO2 (80 - 100 TORR) 77 L HCO3 (21 - 28 MEQ/L) 28 ABG O2 Sat (Measured) (>96.0 %) 92.0 L P-50 (Temp Corrected) N Carboxyhemoglobin (1.5 - 5.0 %) 1.2 L O2 Concentration % 50% Temperature (97.0 - 100.0 FARH) 98.0 Respiration Rate (BPM) 24 O2 Delivery Method BIPAP Vent Mode ST Expiratory Pressure (CM H2O P) 4 Inspiratory Pressure (CM H2O P) 14 Chemistry Sodium (137 - 145 mmol/L) 136 L Potassium (3.5 - 5.1 mmol/L) 5.5 H Chloride (98 - 107 mmol/L) 92 L Carbon Dioxide (22 - 30 mmol/L) 26 Anion Gap (5 - 16) 17 H BUN (9 - 20 mg/dL) 84 H Creatinine (0.7 - 1.2 mg/dL) 3.4 H Estimated GFR (>60 ml/min) 18 L BUN/Creatinine Ratio (7 - 25 %) 24.7 Glucose (65 - 99 mg/dL) 250 H Hemoglobin A1c (4.2 - 5.8 %) Pending Hematology CBC w Diff NO MAN DIFF REQ WBC (4.8 - 10.8 /CUMM) 15.7 H RBC (4.70 - 6.10 /CUMM) 2.89 L Hgb (14.0 - 18.0 G/DL) 8.1 L Hct (42 - 52 %) 25.2 L MCV (80.0 - 94.0 FL) 87.4 MCH (27.0 - 31.0 PG) 28.2 MCHC (33.0 - 37.0 G/DL) 32.2 L RDW (11.5 - 14.5 %) 17.2 H Plt Count (130 - 400 /CUMM) 270 MPV (7.4 - 10.4 FL) 8.8 Gran % (42.2 - 75.2 %) 95.4 H Lymphocytes % (20.5 - 51.1 %) 1.5 L Monocytes % (1.7 - 9.3 %) 3.1 Eosinophils % (0 - 5 %) 0 Basophils % (0.0 - 2.0 %) 0 Absolute Granulocytes (1.4 - 6.5 /CUMM) 15.0 H Absolute Lymphocytes (1.2 - 3.4 /CUMM) 0.2 L Absolute Monocytes (0.10 - 0.60 /CUMM) 0.5 Absolute Eosinophils (0.0 - 0.7 /CUMM) 0 Absolute Basophils (0.0 - 0.2 /CUMM) 0 Miscellaneous Phlebotomy Draw Site RIGHT RADIAL Urines Ur Random Creatinine Cancelled U Random Total Protein Cancelled 03/04 03/03 0620 0655 Blood Gas pH (7.35 - 7.45 PH) 7.21 *L pCO2 (35 - 45 TORR) 66 *H pO2 (80 - 100 TORR) 59 L HCO3 (21 - 28 MEQ/L) 26 ABG O2 Sat (Measured) (>96.0 %) 85.0 L P-50 (Temp Corrected) Y Carboxyhemoglobin (1.5 - 5.0 %) 0 L O2 Concentration % 5 LPM Temperature (97.0 - 100.0 FARH) 97.5 O2 Delivery Method N/C Chemistry Sodium (137 - 145 mmol/L) 133 L Potassium (3.5 - 5.1 mmol/L) 5.3 H Chloride (98 - 107 mmol/L) 91 L Carbon Dioxide (22 - 30 mmol/L) 27 Anion Gap (5 - 16) 14 BUN (9 - 20 mg/dL) 76 H Creatinine (0.7 - 1.2 mg/dL) 3.0 H Estimated GFR (>60 ml/min) 21 L BUN/Creatinine Ratio (7 - 25 %) 25.3 H Hematology CBC w Diff MAN DIFF ORDERED WBC (4.8 - 10.8 /CUMM) 17.1 H RBC (4.70 - 6.10 /CUMM) 2.88 L Hgb (14.0 - 18.0 G/DL) 8.1 L Hct (42 - 52 %) 24.6 L MCV (80.0 - 94.0 FL) 85.7 MCH (27.0 - 31.0 PG) 28.1 MCHC (33.0 - 37.0 G/DL) 32.8 L RDW (11.5 - 14.5 %) 17.4 H Plt Count (130 - 400 /CUMM) 268 MPV (7.4 - 10.4 FL) 8.9 Gran % (42.2 - 75.2 %) 93.9 H Lymphocytes % (20.5 - 51.1 %) 1.6 L Monocytes % (1.7 - 9.3 %) 4.5 Eosinophils % (0 - 5 %) 0 Basophils % (0.0 - 2.0 %) 0 Absolute Granulocytes (1.4 - 6.5 /CUMM) 16.0 H Segmented Neutrophils (42.2 - 75.2 %) 96 H Absolute Lymphocytes (1.2 - 3.4 /CUMM) 0.3 L Lymphocytes (20.5 - 51.1 %) 3 L Monocytes (1.7 - 9.3 %) 1 L Absolute Monocytes (0.10 - 0.60 /CUMM) 0.8 H Absolute Eosinophils (0.0 - 0.7 /CUMM) 0 Absolute Basophils (0.0 - 0.2 /CUMM) 0 Nucleated RBCs (0.0 - 0.0 /100WBC) 2 H Platelet Estimate (ADEQUATE) ADEQUATE Hypochromic-Microcytic 2+ Poikilocytosis 2+ Anisocytosis 1+ Ovalocytes 1+ Miscellaneous Phlebotomy Draw Site RIGHT RADIAL 03/02 03/02 03/01 6905 0642 2044 Chemistry Sodium (137 - 145 mmol/L) 134 L 135 L 132 L Potassium (3.5 - 5.1 mmol/L) 5.3 H 5.5 H 4.8 Chloride (98 - 107 mmol/L) 93 L 93 L 93 L Carbon Dioxide (22 - 30 mmol/L) 28 27 28 Anion Gap (5 - 16) 13 16 12 BUN (9 - 20 mg/dL) 69 H 60 H 54 H Creatinine (0.7 - 1.2 mg/dL) 2.9 H 2.4 H 2.1 H Estimated GFR (>60 ml/min) 22 L 27 L 32 L BUN/Creatinine Ratio (7 - 25 %) 23.8 25.0 25.7 H Hematology CBC w Diff MAN DIFF ORDERED WBC (4.8 - 10.8 /CUMM) 10.9 H RBC (4.70 - 6.10 /CUMM) 3.00 L Hgb (14.0 - 18.0 G/DL) 8.3 L Hct (42 - 52 %) 26.0 L MCV (80.0 - 94.0 FL) 86.9 MCH (27.0 - 31.0 PG) 27.6 MCHC (33.0 - 37.0 G/DL) 31.7 L RDW (11.5 - 14.5 %) 17.4 H Plt Count (130 - 400 /CUMM) 280 MPV (7.4 - 10.4 FL) 8.9 Gran % (42.2 - 75.2 %) 94.1 H Lymphocytes % (20.5 - 51.1 %) 3.4 L Monocytes % (1.7 - 9.3 %) 2.3 Eosinophils % (0 - 5 %) 0 Basophils % (0.0 - 2.0 %) 0.2 Absolute Granulocytes (1.4 - 6.5 /CUMM) 10.2 H Absolute Lymphocytes (1.2 - 3.4 /CUMM) 0.4 L Absolute Monocytes (0.10 - 0.60 /CUMM) 0.3 Absolute Eosinophils (0.0 - 0.7 /CUMM) 0 Absolute Basophils (0.0 - 0.2 /CUMM) 0 Platelet Estimate (ADEQUATE) VERIFIED BY SMEAR Polychromasia 1+ Poikilocytosis 1+ Basophilic Stippling 1+ Anisocytosis 1+ Ovalocytes 1+
--- NOTE | 2018-03-04 20:25 | PN- Cardiology ---
Subjective Subjective: On BiPAP, but feels improved when compared to yesterday. Objective Vital Signs and I&Os Vital Signs Date Time Temp Pulse Resp B/P B/P Pulse O2 O2 Flow FiO2 Mean Ox Delivery Rate 03/04 2013 94 BIPAP 50% 03/04 2012 96 94 03/04 1733 91 BIPAP 50% 03/04 1654 98 94 03/04 1458 130/64 03/04 1423 96.3 80 25 97 BIPAP 50% 03/04 1410 94 03/04 1149 94 03/04 0926 BIPAP 03/04 0913 92 03/04 0824 92 BIPAP 50% 03/04 0655 101 93 03/04 0627 Nasal 5.0L Cannula 03/04 0000 92 Nasal 6.0L Cannula 03/03 2300 98.0 108 22 102/62 90 03/03 2206 95 102/62 Intake & Output 03/04 1600 03/04 0800 03/04 0000 03/03 1600 03/03 0800 03/03 0000 Intake Total 40 400 Output Total 550 100 300 200 200 Balance -510 -100 100 -200 -200 Intake, IV 20 Intake, Oral 20 400 Number 1 2 2 1 1 1 Bowel Movements Output, Urine 550 100 300 200 200 Patient 188 lb 194 lb 194 lb Weight Weight Bed scale Measurement Method Physical Exam: Well-developed, overweight male in mild respiratory distress with oxygen in place. Vital signs: See above. Neck: No JVD, no bruits. Lungs: Decreased breath sounds bilaterally. Heart: S1, S2. Extremities: 2-3+ bilateral lower extremity edema. Current Medications: Current Medications Sig/Eve Start time Last Medication Dose Route Stop Time Status Admin Albuterol Sulfate 3 ML EVERY 4 HRS/AWAKE 02/28 1200 AC 03/04 INH 2010 Aspirin 81 MG DAILY 02/28 1000 AC 03/03 PO 0857 Atorvastatin Calcium 10 MG DAILY 02/28 1000 AC 03/03 PO 0859 Budesonide/ 2 PUF BID 03/01 0900 AC 03/03 Formoterol Fumarate INH 2222 Diltiazem HCl 240 MG DAILY 03/03 0900 AC 03/03 PO 0900 Ferrous Sulfate 325 MG BID 02/28 1000 AC 03/03 PO 2159 Furosemide 80 MG TID 03/04 2100 AC IV Furosemide 80 MG 7:30 AM, & 4:30 PM 03/03 1630 DC 04/15 IV 03/04 1630 1611 Insulin Aspart 0 TIDAC 02/28 0800 DC 03/03 SC 1810 Insulin Human Regular 0 Q6 03/04 1800 AC 03/04 SC 1903 Loperamide HCl 4 MG BID PRN 02/28 0415 AC PO Methylprednisolone 60 MG DAILY 03/04 1845 AC IV Metoprolol Tartrate 25 MG BID 02/28 1324 AC 03/03 PO 2206 Omeprazole 20 MG DAILY AC 02/28 0700 AC 03/04 PO 0546 Prednisone 10 MG DAILY 03/09 0900 CAN PO Prednisone 20 MG DAILY 03/07 0900 CAN PO 03/08 0901 Prednisone 30 MG DAILY 03/05 0900 CAN PO 03/06 0901 Prednisone 40 MG 1000 03/04 1000 DC PO 03/04 1001 Rivaroxaban 20 MG DAILY 02/28 1000 DC 03/03 PO 0857 Sodium Chloride 2 SPRAY Q4P PRN 03/01 2100 AC CESAR Tiotropium [place] 1 PUF DAILY 03/01 0900 AC 03/03 INH 0906 Results Last 48 Hrs of Labs/Mics: Laboratory Tests 03/04/18 1831: Anion Gap 10, Estimated GFR 19 L, BUN/Creatinine Ratio 25.9 H 03/04/18 0857: pH 7.25 *L, pCO2 66 *H, pO2 77 L, HCO3 28, ABG O2 Sat (Measured) 92.0 L, P-50 (Temp Corrected) N, Carboxyhemoglobin 1.2 L, O2 Concentration % 50%, Temperature 98.0, Respiration Rate 24, O2 Delivery Method BIPAP, Vent Mode ST, Expiratory Pressure 4, Inspiratory Pressure 14, Phlebotomy Draw Site RIGHT RADIAL 03/04/18 0650: Anion Gap 17 H, Estimated GFR 18 L, BUN/Creatinine Ratio 24.7, Glucose 250 H, Hemoglobin A1c Pending, CBC w Diff NO MAN DIFF REQ, RBC 2.89 L, MCV 87.4, MCH 28.2, MCHC 32.2 L, RDW 17.2 H, MPV 8.8, Gran % 95.4 H, Lymphocytes % 1.5 L, Monocytes % 3.1, Eosinophils % 0, Basophils % 0, Absolute Granulocytes 15.0 H, Absolute Lymphocytes 0.2 L, Absolute Monocytes 0.5, Absolute Eosinophils 0, Absolute Basophils 0, Ur Random Creatinine Cancelled, U Random Total Protein Cancelled 03/04/18 0620: pH 7.21 *L, pCO2 66 *H, pO2 59 L, HCO3 26, ABG O2 Sat (Measured) 85.0 L, P-50 (Temp Corrected) Y, Carboxyhemoglobin 0 L, O2 Concentration % 5 LPM, Temperature 97.5, O2 Delivery Method N/C, Phlebotomy Draw Site RIGHT RADIAL 03/03/18 0655: Anion Gap 14, Estimated GFR 21 L, BUN/Creatinine Ratio 25.3 H, CBC w Diff MAN DIFF ORDERED, RBC 2.88 L, MCV 85.7, MCH 28.1, MCHC 32.8 L, RDW 17.4 H, MPV 8.9, Gran % 93.9 H, Lymphocytes % 1.6 L, Monocytes % 4.5, Eosinophils % 0, Basophils % 0, Absolute Granulocytes 16.0 H, Segmented Neutrophils 96 H, Absolute Lymphocytes 0.3 L, Lymphocytes 3 L, Monocytes 1 L, Absolute Monocytes 0.8 H, Absolute Eosinophils 0, Absolute Basophils 0, Nucleated RBCs 2 H, Platelet Estimate ADEQUATE, Hypochromic-Microcytic 2+, Poikilocytosis 2+, Anisocytosis 1+, Ovalocytes 1+ Recent Imaging Studies: CXR 03/04/2018: 1. Evolving areas of airspace opacities at both upper lobes (right greater than left). 2. Increasing airspace disease at right lung base. 3. Stable moderate enlargement of the cardiomediastinal silhouette and small likely right-sided pleural effusion. Assessment/Plan Assessment/Plan 67-year-old male with a history of end-stage oxygen-dependent COPD w/ chronic hypercapnic respiratory failure, HTN, HLD, AAA s/p endovascular stent, chronic AF on AC, and LV dysfunction (EF 30-35%) with recurrent HFrEF. AKA secondary to IV contrast that is starting to improve with better urinary output and a very modest decrease in his BUN/creatinine. Recommendations: * Continue IV diuresis given evidence of persistent volume overload, per nephrology guidelines. * Continue BiPAP for the short-term. * DVT prophylaxis. Continue telemetry? Yes
[2018-03-04 23:21] VITALS: BP 138/60
[2018-03-05 06:00] VITALS: BP 104/60
[2018-03-05 07:58] LABS: ABSOLUTE BASOPHIL COUNT 0 /CUMM (0.0-0.2); ABSOLUTE EOSINOPHIL COUNT 0 /CUMM (0.0-0.7); ABSOLUTE GRANULOCYTE CT 13.7 /CUMM (1.4-6.5); ABSOLUTE LYMPH COUNT 0.2 /CUMM (1.2-3.4); ABSOLUTE MONOCYTE COUNT 0.1 /CUMM (0.10-0.60); BASOPHIL % 0 % (0.0-2.0); EOSINOPHIL % 0.1 % (0-5); MEAN CORPUSCULAR HGB 27.9 PG (27.0-31.0); MEAN CORPUSCULAR HGB CONC 32.3 G/DL (33.0-37.0); MEAN CORPUSCULAR VOLUME 86.3 FL (80.0-94.0); MEAN PLATELET VOLUME 9.1 FL (7.4-10.4); RBC DISTRIBUTION WIDTH 17.6 % (11.5-14.5)
[2018-03-05 08:30] LABS: GRANULOCYTE % 97.4 % (42.2-75.2); PLATELET COUNT 246 /CUMM (130-400)
--- NOTE | 2018-03-05 10:31 | PN- Housestaff ---
Adelaide Woods MD 03/05/18 1031: Subjective Follow-up For: 1. Acute on Chronic Respiratory Failure 2/2 COPD Exacerbation/CHF Exacerbation 2. History of A.fib on Xarelto and cardizem 3. History of AAA s/p recent endovascular repair 4. Anemia 5. contrast induced nephropathy Complaints: no complaints Tele-Events Since Last Visit: A. fib/A flutter rate 92-118 Subjective: Patient states that he was very uncomfortable last night secondary to the BiPAP mask. Otherwise he notes that he feels better Review of Systems Constitutional: Reports: weakness. EENTM: Reports: no symptoms. Cardiovascular: Reports: edema. Respiratory: Reports: cough, short of breath. Gastrointestinal: Reports: no symptoms. Genitourinary: Reports: no symptoms. Musculoskeletal: Reports: no symptoms. Skin: Reports: no symptoms. Neurological/Psychological: Reports: no symptoms. Hematologic/Endocrine: Reports: bruising. Objective Last 24 Hrs of Vital Signs/I&O Vital Signs Date Time Temp Pulse Resp B/P B/P Pulse O2 O2 Flow FiO2 Mean Ox Delivery Rate 03/06 0000 BIPAP 03/05 2236 98 95 03/05 2144 98.5 103 22 130/58 96 Room Air 03/05 2139 108 130/60 03/05 1908 93 Nasal 50% Cannula 03/05 1715 91 Nasal 50% Cannula 03/05 1620 92 Nasal 50% Cannula 03/05 1401 99.2 106 22 110/50 92 Nasal Cannula 03/05 0920 92 Nasal 5.5L Cannula 03/05 0831 116 110/66 03/05 0825 93 Nasal 4.5L Cannula 03/05 0600 98.0 95 22 104/60 96 03/05 0200 90 BIPAP 10L Intake & Output 03/06 0800 03/06 0000 03/05 1600 Intake Total 120 400 Output Total 450 1300 Balance -330 -900 Intake, Oral 120 400 Output, Urine 450 1300 Patient 183 lb Weight Physical Exam General Appearance: Alert, Oriented X3, Cooperative, No Acute Distress Skin: No Rashes, No Breakdown, No Significant Lesion Skin Temp/Moisture Exam: Warm/Dry Sepsis Skin Exam (color): Normal for Ethnicity HEENT: Atraumatic, PERRLA, EOMI, Mucous Membr. moist/pink Neck: Supple, No JVD Cardiovascular: Regular Rate, Normal S1, Normal S2 Lungs: Clear to Auscultation, Normal Air Movement Abdomen: Normal Bowel Sounds, Soft, No Tenderness, No Hepatospenomegaly, No Masses Neurological: Normal Speech Extremities: No Clubbing, No Cyanosis, Normal Pulses, No Tenderness/Swelling Vascular: Normal Pulses, Pulses Symmetrical Current Medications: Current Medications Sig/Eve Start time Last Medication Dose Route Stop Time Status Admin Albuterol Sulfate 3 ML EVERY 4 HRS/AWAKE 02/28 1200 AC 03/05 INH 2015 Aspirin 81 MG DAILY 02/28 1000 AC 03/03 PO 0857 Atorvastatin Calcium 10 MG DAILY 02/28 1000 AC 03/05 PO 0830 Budesonide/ 2 PUF BID 03/01 0900 AC 03/05 Formoterol Fumarate INH 214 Diltiazem HCl 240 MG DAILY 03/03 0900 AC 03/05 PO 0831 Ferrous Sulfate 325 MG BID 02/28 1000 AC 03/05 PO 2139 Furosemide 80 MG DAILY 03/06 0900 AC IV Furosemide 80 MG TID 03/04 2100 DC 03/05 IV 1239 Insulin Aspart 0 TIDAC/HS 03/05 2100 AC SC Insulin Aspart 4 UNITS ONCE ONE 03/05 2045 DC 03/05 SC 03/05 2046 2139 Insulin Aspart 4 UNITS ONCE ONE 03/05 1715 DC 03/05 SC 03/05 1716 1735 Insulin Aspart 0 TIDAC 03/05 1230 DC 03/05 SC 1655 Insulin Human Regular 0 Q6 03/04 1800 DC 03/05 SC 0027 Loperamide HCl 4 MG BID PRN 02/28 0415 AC PO Methylprednisolone 60 MG DAILY 03/04 1845 AC 03/05 IV 03/06 0600 0832 Metoprolol Tartrate 25 MG BID 02/28 1324 AC 03/05 PO 2139 Omeprazole 20 MG DAILY AC 02/28 0700 AC 03/05 PO 0628 Prednisone 60 MG ONCE ONE 03/06 0900 AC PO 03/06 0901 Sodium Chloride 2 SPRAY Q4P PRN 03/01 2100 AC CESAR Tiotropium [place] 1 PUF DAILY 03/01 0900 AC 03/05 INH 0832 Last 24 Hrs of Lab/Sridhar Results Last 24 Hrs of Labs/Mics: Laboratory Tests 03/05/18 1841: Anion Gap 14, Estimated GFR 18 L, BUN/Creatinine Ratio 28.9 H 03/05/18 0635: Anion Gap 14, Estimated GFR 17 L, BUN/Creatinine Ratio 25.6 H, CBC w Diff NO MAN DIFF REQ, RBC 2.90 L, MCV 86.3, MCH 27.9, MCHC 32.3 L, RDW 17.6 H, MPV 9.1, Gran % 97.4 H, Lymphocytes % 1.7 L, Monocytes % 0.8 L, Eosinophils % 0.1 , Basophils % 0, Absolute Granulocytes 13.7 H, Absolute Lymphocytes 0.2 L, Absolute Monocytes 0.1, Absolute Eosinophils 0, Absolute Basophils 0 Assessment/Plan Assessment: 67-year-old male with a PMHx of end stage COPD on 4 L of oxygen at baseline at home, with BiPAP at night, HFrEF 30%, A. fib on Xarelto, GERD, TIA, NIDDM, HTN, HLD, AAA s/p endovascular repair now here for hypoxic and hypercarbic respiratory failure likely secondary to his COPD and systolic heart failure which has now recently been complicated by acute kidney injury. Plan Contrast induced nephropathy: Pt recieved dye for CTA on first day of admission. His Cr has been rising since, now up to 3.6. * Decrease Lasix 80 IV 3 times a day to daily * Appreciate nephro recs * Will plan for 24hr urine protein creatinine ratio when Cr normalizes * Switched to renal dialysis diet to keep Potassium low at 1000 mL fluid restriction Hyperkalemia: Likely 2/2 to his renal failure. * Con't k restricted diet * Repeat BEP at 6pm today * Con't Lasix SOB: Likely a mix of CHF/ COPD exacerbation. Pt has terminal COPD and he has systolic heart failure with EF 30-35. His respiratory status is still tenuous and he is not making much urine despite generous amount of Lasix. * Continue night time bipap and 3.5 L to 4L oxygen. Of note patient required BiPAP all day yesterday and is currently nothing by mouth as he is continuously needed facemask. We will attempt to take patient off BiPAP today and resume oral medications. * TRC/nebulizers and Symbicort and Spiriva * Sputum culture so far negative. * Appreciate pulm recs area we will begin prednisone 60 mg by mouth tomorrow, continue with IV steroids today * Defer to cardiology for addition of Entresto when renal function resolves. A.fib: Follow on tele floor, trops negative. ekg on admission showed afib with rvr, extended qtc with resolution on repeat ekg and now normal heart rates on tele. 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 However now, patient has higher heart rates from 92-118 we will defer to cardiology for resumption of 480 mg daily. * Continue Lopressor 25 mg twice a day For GERD, TIA, NIDDM, HTN, HLD * Continue PPI * Hold oral antihyperglycemic and increased low-dose sliding scale coverage to intermediate dose as patient is not adequately covered. patient is on steroids and has blood sugars around 300. * heart healthy diet and continue to monitor sugars. * Continue statin Anemia * Persitently low Hb, in 2016 iron studies show iron deficiency anemia so we will continue him on iron and also guaic stools to determine cause for his anemia. -Heart healthy diet -DVT Ppx with ALPS and Xarelto -FC Problem List: 1. MADISON (acute kidney injury) 2. History of AAA (abdominal aortic aneurysm) repair 3. Atrial fibrillation with rapid ventricular response 4. HTN (hypertension) 5. COPD (chronic obstructive pulmonary disease) 6. CHF (congestive heart failure) 7. Anemia 8. Atrial fibrillation Pain Ratin Pain Location: na Pain Goal: Remain pain free Pain Plan: na Tomorrow's Labs & Rationales: cbc bep RadhaSangeeta villafana 03/05/18 1146: Attending MD Review Statement Attending Statement Attending MD Statement: examined this patient, discuss w/resident/PA/MEETING COORDINATOR, agreed w/resident/PA/MEETING COORDINATOR, discussed with family, reviewed EMR data (avail), discussed with nursing, discussed with case mgmt, reviewed images, amended to note Attending Assessment/Plan: Patient with pmh of chf and copd comes with worsening shortness of breath multifactorial origin with systolic CHF acute on chronic exacerbation and COPD exacerbation with requirement of bipap on admission now developed MADISON likely contrast induced nephropathy. Nephrology, Cardiology and pulmonary on board. Weekend events noted. Nephrology called. Patient denies any new complaints. His Cr is 1.3>>2.4>>3.6. Patient again switched to iv lasix, PO steroids, oxygen supplementation, NIPPV at night, bronchodilators, ECHO EF 30-35%. afib Held xarelto, Cardizem 240 daily, lopressor (decreased from 480, non compliant, was taking 240 only). f/u cardiology. Ask cardiology about anticoagulation. MADISON with elevation of creatinnie. Nephrology appreciated, Use of lasix as per nephrology. Follow cardiology/pulmonary/nephrology recs. Monitor creatinine. Entresto addition as per cardiology recs. (held 2/ MADISON) Cont current care..
--- NOTE | 2018-03-05 11:20 | PN- Nephrology ---
Assessment/Plan Nephrology Assessment: UO of 3 liters yesterday, creatinine still climbing. No symptoms from moderate volume overload. Suggestion: Would decrease Lasix to 80 daily as don't wish to volume deplete at this time. Continue to follow labs daily. Subjective Subjective: Patient feeling well, denies SOB. Objective Vital Signs and I&Os Vital Signs Date Time Temp Pulse Resp B/P B/P Pulse O2 O2 Flow FiO2 Mean Ox Delivery Rate 03/05 920 92 Nasal 5.5L Cannula 03/05 0831 116 110/66 03/05 0825 93 Nasal 4.5L Cannula 03/05 06 98.0 95 22 104/60 96 03/05 0200 90 BIPAP 10L 03/05 0000 BIPAP 03/05 0000 119 76 03/04 2321 98.2 61 26 138/60 96 BIPAP 03/04 2233 106 96 03/04 2139 104 130/64 03/04 2013 94 BIPAP 50% 03/04 2012 96 94 03/04 1733 91 BIPAP 50% 03/04 1654 98 94 03/04 1458 130/64 03/04 1423 96.3 80 25 97 BIPAP 50% 03/04 1410 94 03/04 1149 94 Intake & Output 03/05 1600 03/05 0400 03/04 1600 03/04 0400 03/03 1600 03/03 0400 Intake Total 40 400 Output Total 950 1950 550 100 500 200 Balance -950 -1950 -510 -100 -100 -200 Intake, IV 20 Intake, Oral 20 400 Number 3 2 2 1 Bowel Movements Output, Urine 950 1950 550 100 500 200 Patient 186 lb 188 lb 194 lb 194 lb Weight Weight Bed scale Measurement Method Physical Exam: NAD VS as above Lungs: decreased breath sounds at bases CV: no rub Abd: nontneder Ext: 2+ pretibial edema Neuro: A&O, no asterixis. Current Medications: Current Medications Sig/Eve Start time Last Medication Dose Route Stop Time Status Admin Albuterol Sulfate 3 ML EVERY 4 HRS/AWAKE 02/28 1200 AC 03/05 INH 0826 Aspirin 81 MG DAILY 02/28 1000 AC 03/03 PO 0857 Atorvastatin Calcium 10 MG DAILY 02/28 1000 AC 03/05 PO 0830 Budesonide/ 2 PUF BID 03/01 09 AC 03/05 Formoterol Fumarate INH 0834 Diltiazem HCl 240 MG DAILY 03/03 0900 AC 03/05 PO 0831 Ferrous Sulfate 325 MG BID 02/28 1000 AC 03/05 PO 0830 Furosemide 80 MG TID 03/04 2100 AC 03/05 IV 0831 Furosemide 80 MG 7:30 AM, & 4:30 PM 03/03 1630 DC 03/04 IV 03/04 1630 1611 Insulin Aspart 0 TIDAC 02/28 0800 DC 03/03 SC 1810 Insulin Human Regular 6 UNITS .STK-MED ONE 03/05 0031 DC IV 03/05 0032 Insulin Human Regular 0 Q6 03/04 1800 AC 03/05 SC 0027 Loperamide HCl 4 MG BID PRN 02/28 0415 AC PO Methylprednisolone 60 MG DAILY 03/04 1845 AC 03/05 IV 0832 Metoprolol Tartrate 25 MG BID 02/28 1324 AC 03/05 PO 0831 Omeprazole 20 MG DAILY AC 02/28 0700 AC 03/05 PO 0628 Prednisone 10 MG DAILY 03/09 0900 CAN PO Prednisone 20 MG DAILY 03/07 0900 CAN PO 03/08 0901 Prednisone 30 MG DAILY 03/05 0900 CAN PO 03/06 0901 Rivaroxaban 20 MG DAILY 02/28 1000 DC 03/03 PO 0857 Sodium Chloride 2 SPRAY Q4P PRN 03/01 2100 AC CESAR Tiotropium [place] 1 PUF DAILY 03/01 0900 AC 03/05 INH 0832 Results Pertinent Lab Results: Laboratory Tests 03/05 03/04 0635 1831 Chemistry Sodium (137 - 145 mmol/L) 142 136 L Potassium (3.5 - 5.1 mmol/L) 5.6 H 5.0 Chloride (98 - 107 mmol/L) 96 L 95 L Carbon Dioxide (22 - 30 mmol/L) 32 H 32 H Anion Gap (5 - 16) 14 10 BUN (9 - 20 mg/dL) 92 H 83 H Creatinine (0.7 - 1.2 mg/dL) 3.6 H 3.2 H Estimated GFR (>60 ml/min) 17 L 19 L BUN/Creatinine Ratio (7 - 25 %) 25.6 H 25.9 H Hematology CBC w Diff NO MAN DIFF REQ WBC (4.8 - 10.8 /CUMM) 14.0 H RBC (4.70 - 6.10 /CUMM) 2.90 L Hgb (14.0 - 18.0 G/DL) 8.1 L Hct (42 - 52 %) 25.0 L MCV (80.0 - 94.0 FL) 86.3 MCH (27.0 - 31.0 PG) 27.9 MCHC (33.0 - 37.0 G/DL) 32.3 L RDW (11.5 - 14.5 %) 17.6 H Plt Count (130 - 400 /CUMM) 246 MPV (7.4 - 10.4 FL) 9.1 Gran % (42.2 - 75.2 %) 97.4 H Lymphocytes % (20.5 - 51.1 %) 1.7 L Monocytes % (1.7 - 9.3 %) 0.8 L Eosinophils % (0 - 5 %) 0.1 Basophils % (0.0 - 2.0 %) 0 Absolute Granulocytes (1.4 - 6.5 /CUMM) 13.7 H Absolute Lymphocytes (1.2 - 3.4 /CUMM) 0.2 L Absolute Monocytes (0.10 - 0.60 /CUMM) 0.1 Absolute Eosinophils (0.0 - 0.7 /CUMM) 0 Absolute Basophils (0.0 - 0.2 /CUMM) 0 03/04 03/04 0857 0650 Blood Gas pH (7.35 - 7.45 PH) 7.25 *L pCO2 (35 - 45 TORR) 66 *H pO2 (80 - 100 TORR) 77 L HCO3 (21 - 28 MEQ/L) 28 ABG O2 Sat (Measured) (>96.0 %) 92.0 L P-50 (Temp Corrected) N Carboxyhemoglobin (1.5 - 5.0 %) 1.2 L O2 Concentration % 50% Temperature (97.0 - 100.0 FARH) 98.0 Respiration Rate (BPM) 24 O2 Delivery Method BIPAP Vent Mode ST Expiratory Pressure (CM H2O P) 4 Inspiratory Pressure (CM H2O P) 14 Chemistry Sodium (137 - 145 mmol/L) 136 L Potassium (3.5 - 5.1 mmol/L) 5.5 H Chloride (98 - 107 mmol/L) 92 L Carbon Dioxide (22 - 30 mmol/L) 26 Anion Gap (5 - 16) 17 H BUN (9 - 20 mg/dL) 84 H Creatinine (0.7 - 1.2 mg/dL) 3.4 H Estimated GFR (>60 ml/min) 18 L BUN/Creatinine Ratio (7 - 25 %) 24.7 Glucose (65 - 99 mg/dL) 250 H Hemoglobin A1c (4.2 - 5.8 %) 6.6 H Hematology CBC w Diff NO MAN DIFF REQ WBC (4.8 - 10.8 /CUMM) 15.7 H RBC (4.70 - 6.10 /CUMM) 2.89 L Hgb (14.0 - 18.0 G/DL) 8.1 L Hct (42 - 52 %) 25.2 L MCV (80.0 - 94.0 FL) 87.4 MCH (27.0 - 31.0 PG) 28.2 MCHC (33.0 - 37.0 G/DL) 32.2 L RDW (11.5 - 14.5 %) 17.2 H Plt Count (130 - 400 /CUMM) 270 MPV (7.4 - 10.4 FL) 8.8 Gran % (42.2 - 75.2 %) 95.4 H Lymphocytes % (20.5 - 51.1 %) 1.5 L Monocytes % (1.7 - 9.3 %) 3.1 Eosinophils % (0 - 5 %) 0 Basophils % (0.0 - 2.0 %) 0 Absolute Granulocytes (1.4 - 6.5 /CUMM) 15.0 H Absolute Lymphocytes (1.2 - 3.4 /CUMM) 0.2 L Absolute Monocytes (0.10 - 0.60 /CUMM) 0.5 Absolute Eosinophils (0.0 - 0.7 /CUMM) 0 Absolute Basophils (0.0 - 0.2 /CUMM) 0 Miscellaneous Phlebotomy Draw Site RIGHT RADIAL Urines Ur Random Creatinine Cancelled U Random Total Protein Cancelled 03/04 03/03 0620 0655 Blood Gas pH (7.35 - 7.45 PH) 7.21 *L pCO2 (35 - 45 TORR) 66 *H pO2 (80 - 100 TORR) 59 L HCO3 (21 - 28 MEQ/L) 26 ABG O2 Sat (Measured) (>96.0 %) 85.0 L P-50 (Temp Corrected) Y Carboxyhemoglobin (1.5 - 5.0 %) 0 L O2 Concentration % 5 LPM Temperature (97.0 - 100.0 FARH) 97.5 O2 Delivery Method N/C Chemistry Sodium (137 - 145 mmol/L) 133 L Potassium (3.5 - 5.1 mmol/L) 5.3 H Chloride (98 - 107 mmol/L) 91 L Carbon Dioxide (22 - 30 mmol/L) 27 Anion Gap (5 - 16) 14 BUN (9 - 20 mg/dL) 76 H Creatinine (0.7 - 1.2 mg/dL) 3.0 H Estimated GFR (>60 ml/min) 21 L BUN/Creatinine Ratio (7 - 25 %) 25.3 H Hematology CBC w Diff MAN DIFF ORDERED WBC (4.8 - 10.8 /CUMM) 17.1 H RBC (4.70 - 6.10 /CUMM) 2.88 L Hgb (14.0 - 18.0 G/DL) 8.1 L Hct (42 - 52 %) 24.6 L MCV (80.0 - 94.0 FL) 85.7 MCH (27.0 - 31.0 PG) 28.1 MCHC (33.0 - 37.0 G/DL) 32.8 L RDW (11.5 - 14.5 %) 17.4 H Plt Count (130 - 400 /CUMM) 268 MPV (7.4 - 10.4 FL) 8.9 Gran % (42.2 - 75.2 %) 93.9 H Lymphocytes % (20.5 - 51.1 %) 1.6 L Monocytes % (1.7 - 9.3 %) 4.5 Eosinophils % (0 - 5 %) 0 Basophils % (0.0 - 2.0 %) 0 Absolute Granulocytes (1.4 - 6.5 /CUMM) 16.0 H Segmented Neutrophils (42.2 - 75.2 %) 96 H Absolute Lymphocytes (1.2 - 3.4 /CUMM) 0.3 L Lymphocytes (20.5 - 51.1 %) 3 L Monocytes (1.7 - 9.3 %) 1 L Absolute Monocytes (0.10 - 0.60 /CUMM) 0.8 H Absolute Eosinophils (0.0 - 0.7 /CUMM) 0 Absolute Basophils (0.0 - 0.2 /CUMM) 0 Nucleated RBCs (0.0 - 0.0 /100WBC) 2 H Platelet Estimate (ADEQUATE) ADEQUATE Hypochromic-Microcytic 2+ Poikilocytosis 2+ Anisocytosis 1+ Ovalocytes 1+ Miscellaneous Phlebotomy Draw Site RIGHT RADIAL 03/02 1805 Chemistry Sodium (137 - 145 mmol/L) 134 L Potassium (3.5 - 5.1 mmol/L) 5.3 H Chloride (98 - 107 mmol/L) 93 L Carbon Dioxide (22 - 30 mmol/L) 28 Anion Gap (5 - 16) 13 BUN (9 - 20 mg/dL) 69 H Creatinine (0.7 - 1.2 mg/dL) 2.9 H Estimated GFR (>60 ml/min) 22 L BUN/Creatinine Ratio (7 - 25 %) 23.8
--- NOTE | 2018-03-05 13:14 | PN- Pulmonary ---
Subjective HPI/Critical Care Issues: pt seen and examined feeling somewhat better leg edema persists Objective Current Medications: Current Medications Sig/Eve Start time Last Medication Dose Route Stop Time Status Admin Albuterol Sulfate 3 ML EVERY 4 HRS/AWAKE 02/28 1200 AC 03/05 INH 1200 Aspirin 81 MG DAILY 02/28 1000 AC 03/03 PO 0857 Atorvastatin Calcium 10 MG DAILY 02/28 1000 AC 03/05 PO 0830 Budesonide/ 2 PUF BID 03/01 0900 AC 03/05 Formoterol Fumarate INH 0834 Diltiazem HCl 240 MG DAILY 03/03 0900 AC 03/05 PO 0831 Ferrous Sulfate 325 MG BID 02/28 1000 AC 03/05 PO 0830 Furosemide 80 MG TID 03/04 2100 AC 03/05 IV 1239 Furosemide 80 MG 7:30 AM, & 4:30 PM 03/03 1630 DC 03/04 IV 03/04 1630 1611 Insulin Aspart 0 TIDAC 03/05 1230 AC 03/05 SC 1229 Insulin Aspart 0 TIDAC 02/28 0800 DC 03/03 SC 1810 Insulin Human Regular 6 UNITS .ST-MED ONE 03/05 0031 DC IV 03/05 0032 Insulin Human Regular 0 Q6 03/04 1800 DC 03/05 SC 0027 Loperamide HCl 4 MG BID PRN 02/28 0415 AC PO Methylprednisolone 60 MG DAILY 03/04 1845 AC 03/05 IV 0832 Metoprolol Tartrate 25 MG BID 02/28 1324 AC 03/05 PO 0831 Omeprazole 20 MG DAILY AC 02/28 0700 AC 03/05 PO 0628 Prednisone 10 MG DAILY 03/09 0900 CAN PO Prednisone 20 MG DAILY 03/07 0900 CAN PO 03/08 0901 Prednisone 30 MG DAILY 03/05 0900 CAN PO 03/06 0901 Sodium Chloride 2 SPRAY Q4P PRN 03/01 2100 AC CESAR Tiotropium [place] [address] 1 PUF DAILY 03/01 0900 AC 03/05 INH 0832 Vital Signs & I&O Last 24 Hrs of Vitals and I&O: Vital Signs Date Time Temp Pulse Resp B/P B/P Pulse O2 O2 Flow FiO2 Mean Ox Delivery Rate 03/05 0920 92 Nasal 5.5L Cannula 03/05 0831 116 110/66 03/05 0825 93 Nasal 4.5L Cannula 03/05 06 98.0 95 22 104/60 96 03/05 0200 90 BIPAP 10L 03/05 0000 BIPAP 03/05 0000 119 76 03/04 2321 98.2 61 26 138/60 96 BIPAP 03/04 2233 106 96 03/04 2139 104 130/64 03/04 2013 94 BIPAP 50% 03/04 2012 96 94 03/04 1733 91 BIPAP 50% 03/04 1654 98 94 03/04 1458 130/64 03/04 1423 96.3 80 25 97 BIPAP 50% 03/04 1410 94 Intake & Output 03/05 1600 03/05 0800 03/05 0000 Intake Total Output Total 950 1950 Balance -950 -1950 Output, Urine 950 1950 Patient 186 lb Weight Exam Other Physical Findings: gen awake and alert heent nc cvs s1, s2 lung diminished at bases abd soft bs+ ext 2+ edema Results Last 24 Hrs of Lab Results: Laboratory Tests 03/05/18 0635: Anion Gap 14, Estimated GFR 17 L, BUN/Creatinine Ratio 25.6 H, CBC w Diff NO MAN DIFF REQ, RBC 2.90 L, MCV 86.3, MCH 27.9, MCHC 32.3 L, RDW 17.6 H, MPV 9.1, Gran % 97.4 H, Lymphocytes % 1.7 L, Monocytes % 0.8 L, Eosinophils % 0.1 , Basophils % 0, Absolute Granulocytes 13.7 H, Absolute Lymphocytes 0.2 L, Absolute Monocytes 0.1, Absolute Eosinophils 0, Absolute Basophils 0 03/04/18 1831: Anion Gap 10, Estimated GFR 19 L, BUN/Creatinine Ratio 25.9 H Impression/Plan Impression/Plan Impression/Plan: Impression 67 year old man CHF exacerbation along with acute COPD exacerbation no obvious evidence of pneumonia Plan -steroid taper -diuresis -ins/outs -daily weights -cardiology input -nocturnal bipap DVT prophylaxis at all times
[2018-03-05 14:01] VITALS: BP 110/50
--- NOTE | 2018-03-05 14:16 | PN- Cardiology ---
Subjective Subjective: Feeling better, less dyspnea. lower extremity edema unchanged. Creatinine increased from 3.2 to 3.6. Objective Vital Signs and I&Os Vital Signs Date Time Temp Pulse Resp B/P B/P Pulse O2 O2 Flow FiO2 Mean Ox Delivery Rate 03/05 1401 99.2 106 22 110/50 92 Nasal Cannula 03/05 0920 92 Nasal 5.5L Cannula 03/05 0831 116 110/66 03/05 0825 93 Nasal 4.5L Cannula 03/05 0600 98.0 95 22 104/60 96 03/05 0200 90 BIPAP 10L 03/05 0000 BIPAP 03/05 0000 119 76 03/04 2321 98.2 61 26 138/60 96 BIPAP 03/04 2233 106 96 03/04 2139 104 130/64 03/04 2013 94 BIPAP 50% 03/04 2012 96 94 03/04 1733 91 BIPAP 50% 03/04 1654 98 94 03/04 1458 130/64 03/04 1423 96.3 80 25 97 BIPAP 50% Intake & Output 03/05 1600 03/05 0800 03/05 0000 03/04 1600 03/04 0800 03/04 0000 Intake Total 40 Output Total 950 1950 550 100 Balance -950 -1950 -510 -100 Intake, IV 20 Intake, Oral 20 Number 1 2 2 Bowel Movements Output, Urine 950 1950 550 100 Patient 186 lb 188 lb Weight Weight Bed scale Measurement Method Physical Exam General Appearance: no apparent distress, alert Neck: supple, JVD, trachea mid line Respiratory: decreased breath sounds, rhonchi (at bases) Cardiovascular: tachycardia, systolic murmur, irregularly irregular Abdomen: normal bowel sounds, soft, non-tender Extremities: normal capillary refill, straight leg raised Current Medications: Current Medications Sig/Eve Start time Last Medication Dose Route Stop Time Status Admin Albuterol Sulfate 3 ML EVERY 4 HRS/AWAKE 02/28 1200 AC 03/05 INH 1200 Aspirin 81 MG DAILY 02/28 1000 AC 03/03 PO 0857 Atorvastatin Calcium 10 MG DAILY 02/28 1000 AC 03/05 PO 0830 Budesonide/ 2 PUF BID 03/01 0900 AC 03/05 Formoterol Fumarate INH 0834 Diltiazem HCl 240 MG DAILY 03/03 0900 AC 03/05 PO 0831 Ferrous Sulfate 325 MG BID 02/28 1000 AC 03/05 PO 0830 Furosemide 80 MG DAILY 03/06 0900 UNVr IV Furosemide 80 MG TID 03/04 2100 DC 03/05 IV 1239 Furosemide 80 MG 7:30 AM, & 4:30 PM 03/03 1630 DC 03/04 IV 03/04 1630 1611 Insulin Aspart 0 TIDAC 03/05 1230 AC 03/05 SC 1229 Insulin Aspart 0 TIDAC 02/28 0800 DC 03/03 SC 1810 Insulin Human Regular 6 UNITS .STK-MED ONE 03/05 0031 DC IV 03/05 0032 Insulin Human Regular 0 Q6 03/04 1800 DC 03/05 SC 0027 Loperamide HCl 4 MG BID PRN 02/28 0415 AC PO Methylprednisolone 60 MG DAILY 03/04 1845 AC 03/05 IV 0832 Metoprolol Tartrate 25 MG BID 02/28 1324 AC 03/05 PO 0831 Omeprazole 20 MG DAILY AC 02/28 0700 AC 03/05 PO 0628 Prednisone 10 MG DAILY 03/09 0900 CAN PO Prednisone 20 MG DAILY 03/07 0900 CAN PO 03/08 0901 Prednisone 30 MG DAILY 03/05 0900 CAN PO 03/06 0901 Sodium Chloride 2 SPRAY Q4P PRN 03/01 2100 AC CESAR Tiotropium [place] 1 PUF DAILY 03/01 0900 AC 03/05 INH 0832 Assessment/Plan Assessment/Plan Global Improvement. Volume overload still significant. Creatinine increased to 3.6 with K+ 5.6, likely ATN, reduce lasix since. Continue telemetry? Yes
--- NOTE | 2018-03-05 21:26 | RADIOLOGY REPORT ---
EXAMINATION: XR PORTABLE CHEST CLINICAL INFORMATION: Shortness of breath. COMPARISON: Chest x-ray 03/04/2018 , 10:21 AM TECHNIQUE: Portable frontal view of the chest was obtained. 8:53 PM FINDINGS: There is diffuse increased interstitial lung markings. This is consistent with pulmonary venous congestion. There is stable confluence of the opacities at the right lung base. These changes are stable prior chest x-ray 03/04/2018. Heart size is enlarged. No large pleural effusion. IMPRESSION: Persistent pulmonary venous congestion. No significant change since 03/04/2018.
[2018-03-05 21:44] VITALS: BP 130/58
[2018-03-06 06:59] VITALS: BP 120/62
[2018-03-06 08:06] LABS: ABSOLUTE BASOPHIL COUNT 0 /CUMM (0.0-0.2); ABSOLUTE EOSINOPHIL COUNT 0 /CUMM (0.0-0.7); BASOPHIL % 0 % (0.0-2.0); EOSINOPHIL % 0 % (0-5)
[2018-03-06 08:25] LABS: ABSOLUTE LYMPH COUNT 0.4 /CUMM (1.2-3.4); ABSOLUTE MONOCYTE COUNT 0.5 /CUMM (0.10-0.60); MEAN PLATELET VOLUME 9.1 FL (7.4-10.4)
[2018-03-06 08:30] LABS: ABSOLUTE GRANULOCYTE CT 10.8 /CUMM (1.4-6.5); MEAN CORPUSCULAR HGB 27.1 PG (27.0-31.0); MEAN CORPUSCULAR VOLUME 84.8 FL (80.0-94.0); PLATELET COUNT 184 /CUMM (130-400); RBC DISTRIBUTION WIDTH 17.5 % (11.5-14.5); WHITE BLOOD CELL COUNT 11.7 /CUMM (4.8-10.8)
[2018-03-06 09:01] LABS: GRANULOCYTE % 92.6 % (42.2-75.2)
--- NOTE | 2018-03-06 09:27 | PN- Nephrology ---
Assessment/Plan Nephrology Assessment: BUN/Cr stable, hopefully will see some improvement soon as recovers from dye induced [place]. Still quite volume overloaded. Suggestion: Continue current treatment. Subjective Subjective: Patient on high flow but looks comfortable at present although states he did not sleep well. UO 525 cc yesterday. Objective Vital Signs and I&Os Vital Signs Date Time Temp Pulse Resp B/P B/P Pulse O2 O2 Flow FiO2 Mean Ox Delivery Rate 03/06 0838 120/62 03/06 0755 Nasal 45% Cannula 03/06 0659 97.6 83 20 120/62 98 Room Air 03/06 0609 95 Nasal 45% Cannula 03/06 0607 88 96 03/06 0000 BIPAP 03/05 2236 98 95 03/05 2144 98.5 103 22 130/58 96 Room Air 03/05 2139 108 130/60 03/05 1908 93 Nasal 50% Cannula 03/05 1715 91 Nasal 50% Cannula 03/05 1620 92 Nasal 50% Cannula 03/05 1401 99.2 106 22 110/50 92 Nasal Cannula Intake & Output 03/06 1600 03/06 0400 03/05 1600 03/05 0400 03/04 1600 03/04 0400 Intake Total 120 120 400 40 Output Total 167 311 0125 1950 550 100 Balance -405 -330 -1850 -1950 -510 -100 Intake, IV 20 Intake, Oral 120 120 400 20 Number 3 2 Bowel Movements Output, Urine 244 475 0998 1950 550 100 Patient 183 lb 186 lb 188 lb Weight Weight Bed scale Measurement Method Physical Exam: NAD VS as above Lungs: decreased breath sounds at bases CV: no rub Abd: nontneder Ext: 2+ pretibial edema Neuro: A&O, no asterixis. Current Medications: Current Medications Sig/Eve Start time Last Medication Dose Route Stop Time Status Admin Albuterol Sulfate 3 ML EVERY 4 HRS/AWAKE 02/28 1200 AC 03/06 INH 0754 Aspirin 81 MG DAILY 02/28 1000 AC 03/06 PO 0838 Atorvastatin Calcium 10 MG DAILY 02/28 1000 AC 03/06 PO 0838 Budesonide/ 2 PUF BID 03/01 0900 AC 03/06 Formoterol Fumarate INH 0843 Diltiazem HCl 240 MG DAILY 03/03 0900 AC 03/06 PO 0838 Ferrous Sulfate 325 MG BID 02/28 1000 AC 03/06 PO 0839 Furosemide 80 MG DAILY 03/06 0900 AC 03/06 IV 0842 Furosemide 80 MG TID 03/04 2100 DC 03/05 IV 1239 Guaifenesin 10 ML Q4P PRN 03/06 0630 AC 03/06 PO 0638 Insulin Aspart 0 TIDAC/HS 03/05 2100 AC 03/06 SC 0841 Insulin Aspart 4 UNITS ONCE ONE 03/05 2045 DC 03/05 SC 03/05 204 2139 Insulin Aspart 4 UNITS ONCE ONE 03/05 1715 DC 03/05 SC 03/05 1716 1735 Insulin Aspart 0 TIDAC 03/05 1230 DC 03/05 SC 1655 Insulin Human Regular 0 Q6 03/04 1800 DC 03/05 SC 0027 Loperamide HCl 4 MG BID PRN 02/28 0415 AC PO Methylprednisolone 60 MG DAILY 03/04 1845 DC 03/05 IV 03/06 0600 0832 Metoprolol Tartrate 25 MG BID 02/28 1324 AC 03/06 PO 0838 Omeprazole 20 MG DAILY AC 02/28 0700 AC 03/06 PO 0546 Prednisone 60 MG ONCE ONE 03/06 0900 DC 03/06 PO 03/06 0901 0837 Sodium Chloride 2 SPRAY Q4P PRN 03/01 2100 AC CESAR Tiotropium [place] 1 PUF DAILY 03/01 0900 AC 03/06 INH 0839 Results Pertinent Lab Results: Laboratory Tests 03/06 03/05 0712 1841 Chemistry Sodium (137 - 145 mmol/L) 139 136 L Potassium (3.5 - 5.1 mmol/L) 4.6 4.5 Chloride (98 - 107 mmol/L) 93 L 90 L Carbon Dioxide (22 - 30 mmol/L) 33 H 32 H Anion Gap (5 - 16) 13 14 BUN (9 - 20 mg/dL) 101 *H 101 *H Creatinine (0.7 - 1.2 mg/dL) 3.3 H 3.5 H Estimated GFR (>60 ml/min) 19 L 18 L BUN/Creatinine Ratio (7 - 25 %) 30.6 H 28.9 H [id number] Pept (<125 pg/mL) 45794 H Hematology CBC w Diff NO MAN DIFF REQ WBC (4.8 - 10.8 /CUMM) 11.7 H RBC (4.70 - 6.10 /CUMM) 2.60 L Hgb (14.0 - 18.0 G/DL) 7.0 *L Hct (42 - 52 %) 22.0 L MCV (80.0 - 94.0 FL) 84.8 MCH (27.0 - 31.0 PG) 27.1 MCHC (33.0 - 37.0 G/DL) 32.0 L RDW (11.5 - 14.5 %) 17.5 H Plt Count (130 - 400 /CUMM) 184 MPV (7.4 - 10.4 FL) 9.1 Gran % (42.2 - 75.2 %) 92.6 H Lymphocytes % (20.5 - 51.1 %) 3.1 L Monocytes % (1.7 - 9.3 %) 4.3 Eosinophils % (0 - 5 %) 0 Basophils % (0.0 - 2.0 %) 0 Absolute Granulocytes (1.4 - 6.5 /CUMM) 10.8 H Absolute Lymphocytes (1.2 - 3.4 /CUMM) 0.4 L Absolute Monocytes (0.10 - 0.60 /CUMM) 0.5 Absolute Eosinophils (0.0 - 0.7 /CUMM) 0 Absolute Basophils (0.0 - 0.2 /CUMM) 0 03/05 03/04 0635 1831 Chemistry Sodium (137 - 145 mmol/L) 142 136 L Potassium (3.5 - 5.1 mmol/L) 5.6 H 5.0 Chloride (98 - 107 mmol/L) 96 L 95 L Carbon Dioxide (22 - 30 mmol/L) 32 H 32 H Anion Gap (5 - 16) 14 10 BUN (9 - 20 mg/dL) 92 H 83 H Creatinine (0.7 - 1.2 mg/dL) 3.6 H 3.2 H Estimated GFR (>60 ml/min) 17 L 19 L BUN/Creatinine Ratio (7 - 25 %) 25.6 H 25.9 H Hematology CBC w Diff NO MAN DIFF REQ WBC (4.8 - 10.8 /CUMM) 14.0 H RBC (4.70 - 6.10 /CUMM) 2.90 L Hgb (14.0 - 18.0 G/DL) 8.1 L Hct (42 - 52 %) 25.0 L MCV (80.0 - 94.0 FL) 86.3 MCH (27.0 - 31.0 PG) 27.9 MCHC (33.0 - 37.0 G/DL) 32.3 L RDW (11.5 - 14.5 %) 17.6 H Plt Count (130 - 400 /CUMM) 246 MPV (7.4 - 10.4 FL) 9.1 Gran % (42.2 - 75.2 %) 97.4 H Lymphocytes % (20.5 - 51.1 %) 1.7 L Monocytes % (1.7 - 9.3 %) 0.8 L Eosinophils % (0 - 5 %) 0.1 Basophils % (0.0 - 2.0 %) 0 Absolute Granulocytes (1.4 - 6.5 /CUMM) 13.7 H Absolute Lymphocytes (1.2 - 3.4 /CUMM) 0.2 L Absolute Monocytes (0.10 - 0.60 /CUMM) 0.1 Absolute Eosinophils (0.0 - 0.7 /CUMM) 0 Absolute Basophils (0.0 - 0.2 /CUMM) 0 03/04 03/04 0857 0650 Blood Gas pH (7.35 - 7.45 PH) 7.25 *L pCO2 (35 - 45 TORR) 66 *H pO2 (80 - 100 TORR) 77 L HCO3 (21 - 28 MEQ/L) 28 ABG O2 Sat (Measured) (>96.0 %) 92.0 L P-50 (Temp Corrected) N Carboxyhemoglobin (1.5 - 5.0 %) 1.2 L O2 Concentration % 50% Temperature (97.0 - 100.0 FARH) 98.0 Respiration Rate (BPM) 24 O2 Delivery Method BIPAP Vent Mode ST Expiratory Pressure (CM H2O P) 4 Inspiratory Pressure (CM H2O P) 14 Chemistry Sodium (137 - 145 mmol/L) 136 L Potassium (3.5 - 5.1 mmol/L) 5.5 H Chloride (98 - 107 mmol/L) 92 L Carbon Dioxide (22 - 30 mmol/L) 26 Anion Gap (5 - 16) 17 H BUN (9 - 20 mg/dL) 84 H Creatinine (0.7 - 1.2 mg/dL) 3.4 H Estimated GFR (>60 ml/min) 18 L BUN/Creatinine Ratio (7 - 25 %) 24.7 Glucose (65 - 99 mg/dL) 250 H Hemoglobin A1c (4.2 - 5.8 %) 6.6 H Hematology CBC w Diff NO MAN DIFF REQ WBC (4.8 - 10.8 /CUMM) 15.7 H RBC (4.70 - 6.10 /CUMM) 2.89 L Hgb (14.0 - 18.0 G/DL) 8.1 L Hct (42 - 52 %) 25.2 L MCV (80.0 - 94.0 FL) 87.4 MCH (27.0 - 31.0 PG) 28.2 MCHC (33.0 - 37.0 G/DL) 32.2 L RDW (11.5 - 14.5 %) 17.2 H Plt Count (130 - 400 /CUMM) 270 MPV (7.4 - 10.4 FL) 8.8 Gran % (42.2 - 75.2 %) 95.4 H Lymphocytes % (20.5 - 51.1 %) 1.5 L Monocytes % (1.7 - 9.3 %) 3.1 Eosinophils % (0 - 5 %) 0 Basophils % (0.0 - 2.0 %) 0 Absolute Granulocytes (1.4 - 6.5 /CUMM) 15.0 H Absolute Lymphocytes (1.2 - 3.4 /CUMM) 0.2 L Absolute Monocytes (0.10 - 0.60 /CUMM) 0.5 Absolute Eosinophils (0.0 - 0.7 /CUMM) 0 Absolute Basophils (0.0 - 0.2 /CUMM) 0 Miscellaneous Phlebotomy Draw Site RIGHT RADIAL Urines Ur Random Creatinine Cancelled U Random Total Protein Cancelled 03/04 0620 Blood Gas pH (7.35 - 7.45 PH) 7.21 *L pCO2 (35 - 45 TORR) 66 *H pO2 (80 - 100 TORR) 59 L HCO3 (21 - 28 MEQ/L) 26 ABG O2 Sat (Measured) (>96.0 %) 85.0 L P-50 (Temp Corrected) Y Carboxyhemoglobin (1.5 - 5.0 %) 0 L O2 Concentration % 5 LPM Temperature (97.0 - 100.0 FARH) 97.5 O2 Delivery Method N/C Miscellaneous Phlebotomy Draw Site RIGHT RADIAL
--- NOTE | 2018-03-06 11:30 | PN- Housestaff ---
Chuck CR,Adelaide 03/06/18 1130: Subjective Follow-up For: 1. Acute on Chronic Respiratory Failure 2/2 COPD Exacerbation/CHF Exacerbation 2. History of A.fib on Xarelto and cardizem 3. History of AAA s/p recent endovascular repair 4. Anemia 5. contrast induced nephropathy Complaints: no complaints Tele-Events Since Last Visit: A flutter at a rate of 84-110, PVCs Subjective: Patient states that he is feeling okay this morning. Upon first interview he is more alert than before. However when the team attempted to question him he was quite somnolent. Review of Systems Constitutional: Reports: weakness. EENTM: Reports: no symptoms. Cardiovascular: Reports: edema. Respiratory: Reports: cough, short of breath. Gastrointestinal: Reports: no symptoms. Musculoskeletal: Reports: no symptoms. Skin: Reports: no symptoms. Neurological/Psychological: Reports: no symptoms. Hematologic/Endocrine: Reports: bruising. Objective Last 24 Hrs of Vital Signs/I&O Vital Signs Date Time Temp Pulse Resp B/P B/P Pulse O2 O2 Flow FiO2 Mean Ox Delivery Rate 03/06 1426 97.3 76 20 120/50 96 Nasal Cannula 03/06 0928 91 Nasal 40% Cannula 03/06 0838 120/62 03/06 0755 Nasal 45% Cannula 03/06 0659 97.6 83 20 120/62 98 Room Air 03/06 0609 95 Nasal 45% Cannula 03/06 0607 88 96 03/06 0000 BIPAP 03/05 2236 98 95 03/05 2144 98.5 103 22 130/58 96 Room Air 03/05 2139 108 130/60 03/05 1908 93 Nasal 50% Cannula 03/05 1715 91 Nasal 50% Cannula 03/05 1620 92 Nasal 50% Cannula Intake & Output 03/06 1600 03/06 0800 03/06 0000 Intake Total 420 120 120 Output Total 800 525 450 Balance -380 -405 -330 Intake, IV 20 Intake, Oral 400 120 120 Output, Urine 800 525 450 Patient 183 lb Weight Physical Exam General Appearance: Alert, Oriented X3, Cooperative, No Acute Distress Skin: No Rashes, No Breakdown, No Significant Lesion Skin Temp/Moisture Exam: Warm/Dry Sepsis Skin Exam (color): Normal for Ethnicity HEENT: Atraumatic, EOMI, Mucous Membr. moist/pink Cardiovascular: Regular Rate, Normal S1, Normal S2 Lungs: Clear to Auscultation, Normal Air Movement Abdomen: Normal Bowel Sounds, Soft, No Tenderness Neurological: Normal Speech Extremities: No Clubbing, No Cyanosis, Normal Pulses Vascular: Normal Pulses Sepsis Peripheral Pulse Location: Radial Sepsis Peripheral Pulse Exam: Normal Current Medications: Current Medications Sig/Eve Start time Last Medication Dose Route Stop Time Status Admin Albuterol Sulfate 3 ML EVERY 4 HRS/AWAKE 02/28 1200 AC 03/06 INH 1128 Aspirin 81 MG DAILY 02/28 1000 AC 03/06 PO 0838 Atorvastatin Calcium 10 MG DAILY 02/28 1000 AC 03/06 PO 0838 Budesonide/ 2 PUF BID 03/01 0900 AC 03/06 Formoterol Fumarate INH 0843 Diltiazem HCl 240 MG DAILY 03/03 0900 AC 03/06 PO 0838 Ferrous Sulfate 325 MG BID 02/28 1000 AC 03/06 PO 0839 Furosemide 80 MG DAILY 03/06 0900 AC 03/06 IV 0842 Guaifenesin 10 ML Q4P PRN 03/06 0630 AC 03/06 PO 0638 Insulin Aspart 0 TIDAC/HS 03/05 2100 AC 03/06 SC 1206 Insulin Aspart 4 UNITS ONCE ONE 03/05 2045 DC 03/05 SC 03/05 2046 2139 Insulin Aspart 4 UNITS ONCE ONE 03/05 1715 DC 03/05 SC 03/05 1716 1735 Insulin Aspart 0 TIDAC 03/05 1230 DC 03/05 SC 1655 Loperamide HCl 4 MG BID PRN 02/28 0415 AC PO Methylprednisolone 60 MG DAILY 03/04 1845 DC 03/05 IV 03/06 0600 0832 Metoprolol Tartrate 25 MG BID 02/28 1324 AC 03/06 PO 0838 Omeprazole 20 MG DAILY AC 02/28 0700 AC 03/06 PO 0546 Prednisone 40 MG ONCE ONE 03/07 0900 AC PO 03/07 0901 Prednisone 60 MG ONCE ONE 03/06 0900 DC 03/06 PO 03/06 0901 0837 Sodium Chloride 2 SPRAY Q4P PRN 03/01 2100 AC CESAR Tiotropium [place] 1 PUF DAILY 03/01 0900 AC 03/06 INH 0839 Last 24 Hrs of Lab/Sridhar Results Last 24 Hrs of Labs/Mics: Laboratory Tests 03/06/18 0712: Anion Gap 13, Estimated GFR 19 L, BUN/Creatinine Ratio 30.6 H, Pro-B- Natriuretic Pept 45880 H, CBC w Diff NO MAN DIFF REQ, RBC 2.60 L, MCV 84.8, MCH 27.1, MCHC 32.0 L, RDW 17.5 H, MPV 9.1, Gran % 92.6 H, Lymphocytes % 3.1 L, Monocytes % 4.3, Eosinophils % 0, Basophils % 0, Absolute Granulocytes 10.8 H, Absolute Lymphocytes 0.4 L, Absolute Monocytes 0.5, Absolute Eosinophils 0, Absolute Basophils 0 03/05/181840: Anion Gap 14, Estimated GFR 18 L, BUN/Creatinine Ratio 28.9 H Assessment/Plan Assessment: 67-year-old male with a PMHx of end stage COPD on 4 L of oxygen at baseline at home, with BiPAP at night, HFrEF 30%, A. fib on Xarelto, GERD, TIA, NIDDM, HTN, HLD, AAA s/p endovascular repair now here for hypoxic and hypercarbic respiratory failure likely secondary to his COPD and systolic heart failure which has now recently been complicated by acute kidney injury secondary to contrast-induced nephropathy and anemia with hemoglobin 7.0. Today patient was on room air overnight with 98% saturation but this morning was put on 45% oxygen for some shortness of breath. He was on BiPAP overnight. Ins and outs showed net -2180 last night. Plan Contrast induced nephropathy: Pt recieved dye for CTA on first day of admission. His Cr has been rising since, decreased from 3.6-3.3. * Continue Lasix 80 mg IV daily as patient continues to be volume overloaded * Appreciate nephro recs * Will plan for 24hr urine protein creatinine ratio when Cr normalizes * And 10 units renal dialysis diet to keep Potassium low at 1000 mL fluid restriction Hyperkalemia: Likely 2/2 to his renal failure. * Con't k restricted diet * Potassium last night was 4.5. * Con't Lasix SOB: Likely a mix of CHF/ COPD exacerbation. Pt has terminal COPD and he has systolic heart failure with EF 30-35. His respiratory status is still tenuous and he is not making much urine despite generous amount of Lasix. * Continue night time bipap and 3.5 L to 4L oxygen. * TRC/nebulizers and Symbicort and Spiriva * Sputum culture so far negative. * Appreciate pulm recs area we will begin prednisone 60 mg by mouth tomorrow, continue with IV steroids today and decrease to prednisone 40 mg by mouth tomorrow. * Defer to cardiology for addition of Entresto/AICD when renal function resolves. A.fib: Follow on tele floor, trops negative. ekg on admission showed afib with rvr, extended qtc with resolution on repeat ekg and now normal heart rates on tele. * We have discontinued Xarelto secondary to kidney function and will not give Eliquis as no studies have been done to show that is safer kidneys with creatinine over 3. In any case we'll hold anticoagulation as the patient's hemoglobin count has dropped to 7.0 today. * Patient was to be taking 480mg cardizem as per his continuity clerk but as he has only been taking 240mg daily and had good heart rates we continued him on 240 mg daily. Patient currently has heart rates between 84 and 110 A flutter. We will continue to monitor him on telemetry. * Continue Lopressor 25 mg twice a day For GERD, TIA, NIDDM, HTN, HLD * Continue PPI * Hold oral antihyperglycemic and increased low-dose sliding scale coverage to intermediate dose as patient is not adequately covered. Patient is on steroids and has blood sugars around 300. * Heart healthy diet and continue to monitor sugars. * Continue statin Anemia * Persitently low Hb, in 2016 iron studies show iron deficiency anemia so we will continue him on iron and also guaic stools to determine cause for his anemia. * Patient found to have hemoglobin of 7.0 today down from 8.1 yesterday. We will type and cross him and repeat CBC at 6 PM. If below 7.0 we will transfuse and follow with Lasix for patient's poor ejection fraction. * Guaiac all stools. -Heart healthy diet -DVT Ppx with ALPS -FC Problem List: 1. COPD (chronic obstructive pulmonary disease) 2. CHF (congestive heart failure) 3. HTN (hypertension) 4. Hyperlipidemia 5. Lower extremity edema 6. Atrial fibrillation with rapid ventricular response 7. Contrast dye induced nephropathy 8. MADISON (acute kidney injury) Pain Ratin Pain Location: na Pain Goal: Remain pain free Pain Plan: na Tomorrow's Labs & Rationales: cbc bep Sangeeta Garcia 03/06/18 1307: Attending MD Review Statement Attending Statement Attending MD Statement: examined this patient, discuss w/resident/PA/TAKER OFF DRYING KILN, agreed w/resident/PA/TAKER OFF DRYING KILN, discussed with family, reviewed EMR data (avail), discussed with nursing, discussed with case mgmt, reviewed images, amended to note Attending Assessment/Plan: Patient with pmh of chf and copd comes with worsening shortness of breath multifactorial origin with systolic CHF acute on chronic exacerbation and COPD exacerbation with requirement of bipap on admission now developed MADISON likely contrast induced nephropathy and acute on chronic anemia. Nephrology, Cardiology and pulmonary on board. Patient awake, alert, conversant. His Cr is 1.3>>2.4>>3.6>>3.3. H/h drifting down. Patient continue iv lasix, PO steroids, oxygen supplementation, NIPPV at night, bronchodilators, ECHO EF 30-35%. afib controlled, Held xarelto, Cardizem 240 daily, lopressor (decreased from 480 , non compliant, was taking 240 only). f/u cardiology. f/u cardiology about anticoagulation. MADISON with elevation of creatinnie with some improvement. Use of lasix as per nephrology. Anemia multifactorial r/o acute blood loss, recheck hb in evening. Transfuse slowly if needed. Follow cardiology/pulmonary/nephrology recs. Monitor creatinine. Entresto addition as per cardiology recs. (held 2/2 MADISON) Telemetry continue and see if ok with cardiology to discontinue.
[2018-03-06 14:26] VITALS: BP 120/50
--- NOTE | 2018-03-06 14:36 | PN- Pulmonary ---
Subjective HPI/Critical Care Issues: pt seen and examined doing better on high flow 45% Objective Current Medications: Current Medications Sig/Eve Start time Last Medication Dose Route Stop Time Status Admin Albuterol Sulfate 3 ML EVERY 4 HRS/AWAKE 02/28 1200 AC 03/06 INH 1128 Aspirin 81 MG DAILY 02/28 1000 AC 03/06 PO 0838 Atorvastatin Calcium 10 MG DAILY 02/28 1000 AC 03/06 PO 0838 Budesonide/ 2 PUF BID 03/01 0900 AC 03/06 Formoterol Fumarate INH 0843 Diltiazem HCl 240 MG DAILY 03/03 0900 AC 03/06 PO 0838 Ferrous Sulfate 325 MG BID 02/28 1000 AC 03/06 PO 0839 Furosemide 80 MG DAILY 03/06 0900 AC 03/06 IV 0842 Guaifenesin 10 ML Q4P PRN 03/06 0630 AC 03/06 PO 0638 Insulin Aspart 0 TIDAC/HS 03/05 2100 AC 03/06 SC 1206 Insulin Aspart 4 UNITS ONCE ONE 03/05 2045 DC 03/05 SC 03/05 2046 2139 Insulin Aspart 4 UNITS ONCE ONE 03/05 1715 DC 03/05 SC 03/05 1716 1735 Insulin Aspart 0 TIDAC 03/05 1230 DC 03/05 SC 1655 Loperamide HCl 4 MG BID PRN 02/28 0415 AC PO Methylprednisolone 60 MG DAILY 03/04 1845 DC 03/05 IV 03/06 0600 0832 Metoprolol Tartrate 25 MG BID 02/28 1324 AC 03/06 PO 0838 Omeprazole 20 MG DAILY AC 02/28 0700 AC 03/06 PO 0546 Prednisone 60 MG ONCE ONE 03/06 0900 DC 03/06 PO 03/06 0901 0837 Sodium Chloride 2 SPRAY Q4P PRN 03/01 2100 AC CESAR Tiotropium [place] 1 PUF DAILY 03/01 0900 AC 03/06 INH 0839 Vital Signs & I&O Last 24 Hrs of Vitals and I&O: Vital Signs Date Time Temp Pulse Resp B/P B/P Pulse O2 O2 Flow FiO2 Mean Ox Delivery Rate 03/06 1426 97.3 76 20 120/50 96 Nasal Cannula 03/06 0928 91 Nasal 40% Cannula 03/06 0838 120/62 03/06 0755 Nasal 45% Cannula 03/06 0659 97.6 83 20 120/62 98 Room Air 03/06 0609 95 Nasal 45% Cannula 03/06 0607 88 96 03/06 0000 BIPAP 03/05 2236 98 95 03/05 2144 98.5 103 22 130/58 96 Room Air 03/05 2139 108 130/60 03/05 1908 93 Nasal 50% Cannula 03/05 1715 91 Nasal 50% Cannula 03/05 1620 92 Nasal 50% Cannula Intake & Output 03/06 1600 03/06 0800 03/06 0000 Intake Total 420 120 120 Output Total 800 525 450 Balance -380 -405 -330 Intake, IV 20 Intake, Oral 400 120 120 Output, Urine 800 525 450 Patient 183 lb Weight Exam Other Physical Findings: gen awake and alert heent nc cvs s1, s2 lung diminished at bases abd soft bs+ ext 2+ edema Results Last 24 Hrs of Lab Results: Laboratory Tests 03/06/18 0712: Anion Gap 13, Estimated GFR 19 L, BUN/Creatinine Ratio 30.6 H, Pro-B- Natriuretic Pept 44345 H, CBC w Diff NO MAN DIFF REQ, RBC 2.60 L, MCV 84.8, MCH 27.1, MCHC 32.0 L, RDW 17.5 H, MPV 9.1, Gran % 92.6 H, Lymphocytes % 3.1 L, Monocytes % 4.3, Eosinophils % 0, Basophils % 0, Absolute Granulocytes 10.8 H, Absolute Lymphocytes 0.4 L, Absolute Monocytes 0.5, Absolute Eosinophils 0, Absolute Basophils 0 03/05/18 1841: Anion Gap 14, Estimated GFR 18 L, BUN/Creatinine Ratio 28.9 H Impression/Plan Impression/Plan Impression/Plan: Impression 67 year old man CHF exacerbation along with acute COPD exacerbation no obvious evidence of pneumonia Plan -s/p steroid taper -diuresis -ins/outs -daily weights -cardiology input -nocturnal bipap -monitor hemoglobin - per primary team DVT prophylaxis at all times
[2018-03-06 18:45] LABS: ABSOLUTE BASOPHIL COUNT 0 /CUMM (0.0-0.2); ABSOLUTE EOSINOPHIL COUNT 0 /CUMM (0.0-0.7); BASOPHIL % 0 % (0.0-2.0); EOSINOPHIL % 0 % (0-5); WHITE BLOOD CELL COUNT 14.1 /CUMM (4.8-10.8)
[2018-03-06 18:48] LABS: ABSOLUTE GRANULOCYTE CT 13.7 /CUMM (1.4-6.5); ABSOLUTE LYMPH COUNT 0.3 /CUMM (1.2-3.4); ABSOLUTE MONOCYTE COUNT 0.1 /CUMM (0.10-0.60); MEAN CORPUSCULAR HGB 27.3 PG (27.0-31.0); MEAN CORPUSCULAR VOLUME 85.3 FL (80.0-94.0); MEAN PLATELET VOLUME 9.1 FL (7.4-10.4); PLATELET COUNT 196 /CUMM (130-400); RBC DISTRIBUTION WIDTH 17.8 % (11.5-14.5); RED BLOOD CELL CT 2.63 /CUMM (4.70-6.10)
[2018-03-06 18:50] LABS: HEMATOCRIT 22.4 % (42-52)
[2018-03-06 21:09] VITALS: BP 106/62
[2018-03-07 05:59] VITALS: BP 118/60
[2018-03-07 08:20] LABS: ABSOLUTE BASOPHIL COUNT 0 /CUMM (0.0-0.2); ABSOLUTE EOSINOPHIL COUNT 0 /CUMM (0.0-0.7); ABSOLUTE LYMPH COUNT 0.4 /CUMM (1.2-3.4); ABSOLUTE MONOCYTE COUNT 0.5 /CUMM (0.10-0.60); BASOPHIL % 0 % (0.0-2.0)
[2018-03-07 08:32] LABS: ABSOLUTE GRANULOCYTE CT 13.4 /CUMM (1.4-6.5); EOSINOPHIL % 0 % (0-5); HEMATOCRIT 23.8 % (42-52); MEAN CORPUSCULAR HGB 27.3 PG (27.0-31.0); MEAN CORPUSCULAR HGB CONC 31.5 G/DL (33.0-37.0); MEAN CORPUSCULAR VOLUME 86.8 FL (80.0-94.0); MEAN PLATELET VOLUME 9.2 FL (7.4-10.4); PLATELET COUNT 195 /CUMM (130-400); RBC DISTRIBUTION WIDTH 17.3 % (11.5-14.5); RED BLOOD CELL CT 2.74 /CUMM (4.70-6.10); WHITE BLOOD CELL COUNT 14.4 /CUMM (4.8-10.8)
[2018-03-07 08:48] LABS: GRANULOCYTE % 93.1 % (42.2-75.2)
--- NOTE | 2018-03-07 10:00 | PN- Housestaff ---
Chuck CR,[place] 03/07/18 1000: Subjective Follow-up For: 1. Acute on Chronic Respiratory Failure 2/2 COPD Exacerbation/CHF Exacerbation 2. History of A.fib on Xarelto and cardizem 3. History of AAA s/p recent endovascular repair 4. Anemia 5. contrast induced nephropathy Complaints: no complaints Tele-Events Since Last Visit: A. fib/A flutter 85-106 Subjective: Patient has an having continued breathing issues today. This morning patient was having shortness of breath and was placed on high flow oxygen but was only saturating 46%. He was given a breathing treatment and put back on BiPAP and resulting oxygen saturation was above 90%. We also gave the patient 40 IV of Solu-Medrol and a 40 mg Lasix IV dose. Review of Systems Constitutional: Reports: no symptoms. Cardiovascular: Reports: edema. Respiratory: Reports: cough, short of breath. Gastrointestinal: Reports: no symptoms. Genitourinary: Reports: no symptoms. Musculoskeletal: Reports: no symptoms. Skin: Reports: no symptoms. Neurological/Psychological: Reports: no symptoms. Hematologic/Endocrine: Reports: bruising. Immunologic/Allergic: Reports: no symptoms. Objective Last 24 Hrs of Vital Signs/I&O Vital Signs Date Time Temp Pulse Resp B/P B/P Pulse O2 O2 Flow FiO2 Mean Ox Delivery Rate 03/07 1603 90 BIPAP 65% 03/07 1602 80 90 03/07 1530 96.8 92 24 110/62 92 Nasal Cannula 03/07 1425 80 98 03/07 1115 100 98 03/07 1020 96 Nasal 50% Cannula 03/07 1020 80 93 03/07 1009 118/60 03/07 0801 94 Nasal 55% Cannula 03/07 0755 98 BIPAP 40% 03/07 0752 86 98 03/07 0559 98.8 98 20 118/60 96 Nasal Cannula 03/06 2249 101 95 03/06 2248 95 BIPAP 5.0L 03/065 93 Nasal 40% Cannula 03/06 2128 102 112/62 03/069 99.1 98 20 106/62 90 03/06 1922 93 Nasal 40% Cannula Intake & Output 03/07 1600 03/07 0800 03/07 0000 Intake Total 430 120 Output Total 980 1150 Balance -550 -1150 120 Intake, IV 30 Intake, Oral 400 120 Output, Urine 980 1150 Physical Exam General Appearance: Alert, Oriented X3, Cooperative, Mild Distress Skin: No Rashes, No Breakdown, No Significant Lesion Sepsis Skin Exam (color): Normal for Ethnicity HEENT: Atraumatic, EOMI, Mucous Membr. moist/pink Neck: Supple, No JVD Cardiovascular: Normal S1, Normal S2 Lungs: Clear to Auscultation, Normal Air Movement Abdomen: Normal Bowel Sounds, Soft, No Tenderness Neurological: Normal Speech Extremities: No Clubbing, No Cyanosis, Normal Pulses Current Medications: Current Medications Sig/Eve Start time Last Medication Dose Route Stop Time Status Admin Albuterol Sulfate 3 ML EVERY 4 HRS/AWAKE 02/28 1200 AC 03/07 INH 1111 Aspirin 81 MG DAILY 02/28 1000 AC 03/07 PO 1008 Atorvastatin Calcium 10 MG DAILY 02/28 1000 AC 03/07 PO 1008 Azithromycin 500 MG Q24H 03/07 1455 DC Dextrose/Water 250 ML IV Azithromycin 500 MG Q24H 03/07 1455 DC Sodium Chloride 250 ML IV Budesonide/ 2 PUF BID 03/01 0900 AC 03/07 Formoterol Fumarate INH 1013 Ceftriaxone Sodium 1,000 MG Q24H 03/07 1455 DC IV Diltiazem HCl 240 MG DAILY 03/03 0900 AC 03/07 PO 1008 Ferrous Sulfate 325 MG BID 02/28 1000 AC 03/07 PO 1009 Furosemide 80 MG BID 03/08 0900 AC IV Furosemide 40 MG ONCE ONE 03/07 2100 DC IV 03/07 2101 Furosemide 40 MG 1600 03/07 1600 DC 03/07 IV 03/07 1601 1605 Furosemide 40 MG ONCE ONE 03/07 1400 CAN IV 03/07 1401 Furosemide 40 MG ONCE ONE 03/07 1315 DC 03/07 IV 03/07 1316 1324 Furosemide 80 MG DAILY 03/06 0900 DC 03/07 IV 0754 Guaifenesin 10 ML Q4P PRN 03/06 0630 AC 03/06 PO 1739 Insulin Aspart 0 TIDAC/HS 03/05 2100 AC 03/07 SC 1011 Loperamide HCl 4 MG BID PRN 02/28 0415 AC PO Methylprednisolone 40 MG ONCE ONE 03/07 1315 DC 03/07 IV 03/07 1316 1324 Metoprolol Tartrate 25 MG BID 02/28 1324 AC 03/07 PO 1009 Omeprazole 20 MG DAILY AC 02/28 0700 AC 03/07 PO 0549 Prednisone 60 MG DAILY 03/08 0900 AC PO Prednisone 40 MG ONCE ONE 03/07 0900 DC 03/07 PO 03/07 0901 1009 Sodium Chloride 2 SPRAY Q4P PRN 03/01 2100 AC CESAR Tiotropium [place] 1 PUF DAILY 03/01 0900 AC 03/07 INH 1012 Last 24 Hrs of Lab/Sridhar Results Last 24 Hrs of Labs/Mics: Laboratory Tests 03/07/18 0655: Anion Gap 11, Estimated GFR 26 L, BUN/Creatinine Ratio 37.6 H, CBC w Diff NO MAN DIFF REQ, RBC 2.74 L, MCV 86.8, MCH 27.3, MCHC 31.5 L, RDW 17.3 H, MPV 9.2, Gran % 93.1 H, Lymphocytes % 3.1 L, Monocytes % 3.8, Eosinophils % 0, Basophils % 0, Absolute Granulocytes 13.4 H, Absolute Lymphocytes 0.4 L, Absolute Monocytes 0.5, Absolute Eosinophils 0, Absolute Basophils 0 03/06/18 1805: CBC w Diff NO MAN DIFF REQ, RBC 2.63 L, MCV 85.3, MCH 27.3, MCHC 32.0 L, RDW 17.8 H, MPV 9.1, Gran % 97.0 H, Lymphocytes % 2.0 L, Monocytes % 1.0 L, Eosinophils % 0, Basophils % 0, Absolute Granulocytes 13.7 H, Absolute Lymphocytes 0.3 L, Absolute Monocytes 0.1, Absolute Eosinophils 0, Absolute Basophils 0 Assessment/Plan Assessment: 67-year-old male with a PMHx of end stage COPD on 4 L of oxygen at baseline at home, with BiPAP at night, HFrEF 30%, A. fib on Xarelto, GERD, TIA, NIDDM, HTN, HLD, AAA s/p endovascular repair now here for hypoxic and hypercarbic respiratory failure likely secondary to his COPD and systolic heart failure which has now recently been complicated by acute kidney injury secondary to contrast-induced nephropathy and anemia with hemoglobin 7.0. Today patient was on room air overnight with 98% saturation but this morning was put on 45% oxygen for some shortness of breath. He was on BiPAP overnight. Ins and outs showed net -2180 on 03/05 and -665 on 03/06 status post decreasing his Lasix dose. Last night blood sugars were 300. Plan SOB: Likely a mix of acute on chronic systolic CHF/ COPD exacerbation. Pt has terminal COPD and he has systolic heart failure with EF 30-35. His respiratory status is still tenuous and he has increasing oxygen requirement today and has persistently required BIPAP. We have done a CXR today which showed some developing pneumonitis. * CT chest and depending on findings, administer one dose of moxifloxacin. * Continue night time bipap and 3.5 L to 4L oxygen. * TRC/nebulizers and Symbicort and Spiriva * Sputum culture so far negative. * Appreciate pulm recs, we taper steroid today to 40mg po prednisone but will increase back to 60mg po for tomorrow. As patient was having increased shortness of breath today we gave him IV 40 solumedrol. He is on 80mg IV lasix daily but as per renal we will increase this to bid. * Defer to cardiology for addition of Entresto/AICD when renal function resolves. Contrast induced nephropathy: Pt recieved dye for CTA on first day of admission. His Cr has been rising since, and is now in decline. * Increased lasix to 80mg bid iv for volume overload. As per renal, the benefit outweighs the risk to the kidneys as patient is experiencing dyspnea. * Appreciate nephro recs * Will plan for 24hr urine protein creatinine ratio when Cr normalizes * Continue renal dialysis diet to keep Potassium low at 1000 mL fluid restriction Hyperkalemia: Likely 2/2 to his renal failure. * Con't k restricted diet * Potassium today is 4.0. * Con't Lasix A.fib: Follow on tele floor, trops negative. ekg on admission showed afib with rvr, extended qtc with resolution on repeat ekg and now normal heart rates on tele. * We have discontinued Xarelto secondary to kidney function and will not give Eliquis as no studies have been done to show that is safer kidneys with creatinine over 3. In any case we'll hold anticoagulation as the patient's hemoglobin count has dropped to 7.0 today. 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 Patient currently has heart rates between 84 and 110 A flutter. We will continue to monitor him on telemetry. * Continue Lopressor 25 mg twice a day For GERD, TIA, NIDDM, HTN, HLD * Continue PPI * Hold oral antihyperglycemic and increased low-dose sliding scale coverage to intermediate dose as patient is not adequately covered. Patient is on steroids and has blood sugars around 300. * Heart healthy diet and continue to monitor sugars. * Continue statin Anemia * Persitently low Hb, in 2016 iron studies show iron deficiency anemia so we will continue him on iron and also guaic stools to determine cause for his anemia. * Patient found to have hemoglobin of 7.2 last night and 7.5 this morning. If below 7.0 we will transfuse and follow with Lasix for patient's poor ejection fraction. * Guaiac all stools, last stool sample was 2 days ago and was negative. -Heart healthy diet -DVT Ppx with ALPS -FC Problem List: 1. COPD (chronic obstructive pulmonary disease) 2. CHF (congestive heart failure) 3. HTN (hypertension) 4. Hyperlipidemia 5. MADISON (acute kidney injury) 6. Contrast dye induced nephropathy 7. Respiratory failure 8. Atrial fibrillation with rapid ventricular response 9. Lower extremity edema 10. Diabetes mellitus Pain Ratin Pain Location: na Pain Goal: Remain pain free Pain Plan: na Tomorrow's Labs & Rationales: cbc bep RadhaBrianevy 03/07/18 1344: Attending MD Review Statement Attending Statement Attending MD Statement: examined this patient, discuss w/resident/PA/GLASS ETCHER HELPER, agreed w/resident/PA/GLASS ETCHER HELPER, discussed with family, reviewed EMR data (avail), discussed with nursing, discussed with case mgmt, reviewed images, amended to note Attending Assessment/Plan: Patient with pmh of chf and copd comes with worsening shortness of breath multifactorial origin with systolic CHF acute on chronic exacerbation and COPD exacerbation with requirement of bipap on admission now developed MADISON likely contrast induced nephropathy and acute on chronic anemia with fluid overload requiring NIPPV support this am. Nephrology, Cardiology and pulmonary on board. Patient awake, alert, conversant. required bipap this am, Cr 3.3>>>2.5, H/h stable in past 24 hrs. No evidence of bleeding reported. Vitals stable. Patient increase iv lasix bid, PO steroids, oxygen supplementation, NIPPV hs, bronchodilators, ECHO EF 30-35%. afib controlled, Held xarelto, Cardizem 240 daily, lopressor (decreased from 480 , non compliant, was taking 240 only). f/u cardiology. MADISON with elevation of creatinnie with improvement. Use of lasix as per nephrology. Anemia multifactorial AOCD, h/h stable. Hb goal 7-8, would avoid fluid overload. Follow cardiology/pulmonary/nephrology recs. Monitor creatinine. Entresto addition as per cardiology recs. (held 2/2 MADISON) Telemetry continue and see if ok with cardiology to discontinue.
--- NOTE | 2018-03-07 10:30 | PN- Nephrology ---
Assessment/Plan Nephrology Assessment: Renal function improving, probably resolution of dye [place]. Suggestion: With volume overload and still significant symptoms, improving creatinine, would move Lasix back to bid as less concerned about intravascular volume depletion at this point. Subjective Subjective: Patient apparently desaturated early in AM but better now. UO down to a little over a liter from 4 liters with decrease in lasix. Objective Vital Signs and I&Os Vital Signs Date Time Temp Pulse Resp B/P B/P Pulse O2 O2 Flow FiO2 Mean Ox Delivery Rate 03/07 1009 118/60 03/07 0755 98 BIPAP 40% 03/07 0752 86 98 03/07 0559 98.8 98 20 118/60 96 Nasal Cannula 03/06 2249 101 95 03/06 2248 95 BIPAP 5.0L 03/065 93 Nasal 40% Cannula 03/068 102 112/62 03/06 2109 99.1 98 20 106/62 90 03/06 1922 93 Nasal 40% Cannula 03/06 1600 Nasal 40% Cannula 03/06 1600 96 Nasal 45% Cannula 03/06 1426 97.3 76 20 120/50 96 Nasal Cannula Intake & Output 03/07 1600 03/07 0400 03/06 1600 03/06 0400 03/05 1600 03/05 0400 Intake Total 120 540 120 400 Output Total 1150 9073 645 2804 1950 Balance -1150 120 -785 -330 -1850 -1950 Intake, IV 20 Intake, Oral 120 520 120 400 Output, Urine 1150 1382 283 2416 1950 Patient 183 lb 186 lb Weight Physical Exam: NAD VS as above Lungs: decreased breath sounds at bases CV: no rub Abd: nontneder Ext: 2+ pretibial edema Neuro: A&O, no asterixis. Current Medications: Current Medications Sig/Eve Start time Last Medication Dose Route Stop Time Status Admin Albuterol Sulfate 3 ML EVERY 4 HRS/AWAKE 02/28 1200 AC 03/07 INH 0758 Aspirin 81 MG DAILY 02/28 1000 AC 03/07 PO 1008 Atorvastatin Calcium 10 MG DAILY 02/28 1000 AC 03/07 PO 1008 Budesonide/ 2 PUF BID 03/01 0900 AC 03/07 Formoterol Fumarate INH 1013 Diltiazem HCl 240 MG DAILY 03/03 0900 AC 03/07 PO 1008 Ferrous Sulfate 325 MG BID 04/11 1000 AC 03/07 PO 1009 Furosemide 80 MG DAILY 03/06 0900 AC 03/07 IV 0754 Guaifenesin 10 ML Q4P PRN 03/06 0630 AC 03/06 PO 1739 Insulin Aspart 0 TIDAC/HS 03/05 2100 AC 03/07 SC 1011 Loperamide HCl 4 MG BID PRN 02/28 0415 AC PO Metoprolol Tartrate 25 MG BID 02/28 1324 AC 03/07 PO 1009 Omeprazole 20 MG DAILY AC 02/28 0700 AC 03/07 PO 0549 Prednisone 40 MG ONCE ONE 03/07 09 DC 03/07 PO 03/07 0901 1009 Sodium Chloride 2 SPRAY Q4P PRN 03/01 2100 AC CESAR Tiotropium [place] 1 PUF DAILY 03/01 09 AC 03/07 INH 1012 Results Pertinent Lab Results: Laboratory Tests 03/07 03/06 0655 1805 Chemistry Sodium (137 - 145 mmol/L) 141 Potassium (3.5 - 5.1 mmol/L) 4.0 Chloride (98 - 107 mmol/L) 101 Carbon Dioxide (22 - 30 mmol/L) 29 Anion Gap (5 - 16) 11 BUN (9 - 20 mg/dL) 94 H Creatinine (0.7 - 1.2 mg/dL) 2.5 H Estimated GFR (>60 ml/min) 26 L BUN/Creatinine Ratio (7 - 25 %) 37.6 H Hematology CBC w Diff NO MAN DIFF REQ NO MAN DIFF REQ WBC (4.8 - 10.8 /CUMM) 14.4 H 14.1 H RBC (4.70 - 6.10 /CUMM) 2.74 L 2.63 L Hgb (14.0 - 18.0 G/DL) 7.5 L 7.2 *L Hct (42 - 52 %) 23.8 L 22.4 L MCV (80.0 - 94.0 FL) 86.8 85.3 MCH (27.0 - 31.0 PG) 27.3 27.3 MCHC (33.0 - 37.0 G/DL) 31.5 L 32.0 L RDW (11.5 - 14.5 %) 17.3 H 17.8 H Plt Count (130 - 400 /CUMM) 195 196 MPV (7.4 - 10.4 FL) 9.2 9.1 Gran % (42.2 - 75.2 %) 93.1 H 97.0 H Lymphocytes % (20.5 - 51.1 %) 3.1 L 2.0 L Monocytes % (1.7 - 9.3 %) 3.8 1.0 L Eosinophils % (0 - 5 %) 0 0 Basophils % (0.0 - 2.0 %) 0 0 Absolute Granulocytes (1.4 - 6.5 /CUMM) 13.4 H 13.7 H Absolute Lymphocytes (1.2 - 3.4 /CUMM) 0.4 L 0.3 L Absolute Monocytes (0.10 - 0.60 /CUMM) 0.5 0.1 Absolute Eosinophils (0.0 - 0.7 /CUMM) 0 0 Absolute Basophils (0.0 - 0.2 /CUMM) 0 0 03/06 03/05 0712 1841 Chemistry Sodium (137 - 145 mmol/L) 139 136 L Potassium (3.5 - 5.1 mmol/L) 4.6 4.5 Chloride (98 - 107 mmol/L) 93 L 90 L Carbon Dioxide (22 - 30 mmol/L) 33 H 32 H Anion Gap (5 - 16) 13 14 BUN (9 - 20 mg/dL) 101 *H 101 *H Creatinine (0.7 - 1.2 mg/dL) 3.3 H 3.5 H Estimated GFR (>60 ml/min) 19 L 18 L BUN/Creatinine Ratio (7 - 25 %) 30.6 H 28.9 H [id number] Pept (<125 pg/mL) 40158 H Hematology CBC w Diff NO MAN DIFF REQ WBC (4.8 - 10.8 /CUMM) 11.7 H RBC (4.70 - 6.10 /CUMM) 2.60 L Hgb (14.0 - 18.0 G/DL) 7.0 *L Hct (42 - 52 %) 22.0 L MCV (80.0 - 94.0 FL) 84.8 MCH (27.0 - 31.0 PG) 27.1 MCHC (33.0 - 37.0 G/DL) 32.0 L RDW (11.5 - 14.5 %) 17.5 H Plt Count (130 - 400 /CUMM) 184 MPV (7.4 - 10.4 FL) 9.1 Gran % (42.2 - 75.2 %) 92.6 H Lymphocytes % (20.5 - 51.1 %) 3.1 L Monocytes % (1.7 - 9.3 %) 4.3 Eosinophils % (0 - 5 %) 0 Basophils % (0.0 - 2.0 %) 0 Absolute Granulocytes (1.4 - 6.5 /CUMM) 10.8 H Absolute Lymphocytes (1.2 - 3.4 /CUMM) 0.4 L Absolute Monocytes (0.10 - 0.60 /CUMM) 0.5 Absolute Eosinophils (0.0 - 0.7 /CUMM) 0 Absolute Basophils (0.0 - 0.2 /CUMM) 0 03/05 03/04 0635 1831 Chemistry Sodium (137 - 145 mmol/L) 142 136 L Potassium (3.5 - 5.1 mmol/L) 5.6 H 5.0 Chloride (98 - 107 mmol/L) 96 L 95 L Carbon Dioxide (22 - 30 mmol/L) 32 H 32 H Anion Gap (5 - 16) 14 10 BUN (9 - 20 mg/dL) 92 H 83 H Creatinine (0.7 - 1.2 mg/dL) 3.6 H 3.2 H Estimated GFR (>60 ml/min) 17 L 19 L BUN/Creatinine Ratio (7 - 25 %) 25.6 H 25.9 H Hematology CBC w Diff NO MAN DIFF REQ WBC (4.8 - 10.8 /CUMM) 14.0 H RBC (4.70 - 6.10 /CUMM) 2.90 L Hgb (14.0 - 18.0 G/DL) 8.1 L Hct (42 - 52 %) 25.0 L MCV (80.0 - 94.0 FL) 86.3 MCH (27.0 - 31.0 PG) 27.9 MCHC (33.0 - 37.0 G/DL) 32.3 L RDW (11.5 - 14.5 %) 17.6 H Plt Count (130 - 400 /CUMM) 246 MPV (7.4 - 10.4 FL) 9.1 Gran % (42.2 - 75.2 %) 97.4 H Lymphocytes % (20.5 - 51.1 %) 1.7 L Monocytes % (1.7 - 9.3 %) 0.8 L Eosinophils % (0 - 5 %) 0.1 Basophils % (0.0 - 2.0 %) 0 Absolute Granulocytes (1.4 - 6.5 /CUMM) 13.7 H Absolute Lymphocytes (1.2 - 3.4 /CUMM) 0.2 L Absolute Monocytes (0.10 - 0.60 /CUMM) 0.1 Absolute Eosinophils (0.0 - 0.7 /CUMM) 0 Absolute Basophils (0.0 - 0.2 /CUMM) 0
--- NOTE | 2018-03-07 10:51 | RADIOLOGY REPORT ---
EXAMINATION: XR PORTABLE CHEST CLINICAL INFORMATION: Shortness of breath. Having high FiO2 requirements. Rule out pneumonia versus volume overload as patient is now more short of breath. COMPARISON: Multiple prior chest x-rays, most recent of which is dated 03/05/2018. CT scan of the chest dated 02/27/2018. TECHNIQUE: Portable AP semierect view of the chest was obtained. FINDINGS: EKG leads overlie the chest and some tubing is noted overlying the right side of the chest. The cardiomediastinal silhouette is borderline enlarged. Diffusely increased reticular opacities in the lungs are again seen, asymmetrically more prominent in the right lung compared to the left side. Prominent bullous change in the right lung base is also seen. Compared to the prior exam, the findings are very similar and may be reflective of diffuse viral or atypical pneumonitis with superimposed denser consolidation in the right lower lobe. Trace right-sided pleural effusion is also seen. Mild left basilar subsegmental atelectasis is noted. Mild central vascular congestion is seen without overt pulmonary edema. Bony structures are grossly unremarkable. IMPRESSION: No significant change in the diffuse reticular opacities in the lungs, most prominent in the right lung. Findings are likely related to viral or atypical pneumonitis. Superimposed denser consolidation or atelectasis in the right lung base is also seen with trace associated right pleural effusion. Mild left basilar subsegmental atelectasis.
--- NOTE | 2018-03-07 11:09 | PN- Pulmonary ---
Subjective HPI/Critical Care Issues: pt seen and examined Objective Current Medications: Current Medications Sig/Eve Start time Last Medication Dose Route Stop Time Status Admin Albuterol Sulfate 3 ML EVERY 4 HRS/AWAKE 02/28 1200 AC 03/07 INH 0758 Aspirin 81 MG DAILY 02/28 1000 AC 03/07 PO 1008 Atorvastatin Calcium 10 MG DAILY 02/28 1000 AC 03/07 PO 1008 Budesonide/ 2 PUF BID 03/01 0900 AC 03/07 Formoterol Fumarate INH 1013 Diltiazem HCl 240 MG DAILY 03/03 0900 AC 03/07 PO 1008 Ferrous Sulfate 325 MG BID 02/28 1000 AC 03/07 PO 1009 Furosemide 80 MG DAILY 03/06 0900 AC 03/07 IV 0754 Guaifenesin 10 ML Q4P PRN 03/06 0630 AC 03/06 PO 1739 Insulin Aspart 0 TIDAC/HS 03/05 2100 AC 03/07 SC 1011 Loperamide HCl 4 MG BID PRN 02/28 0415 AC PO Metoprolol Tartrate 25 MG BID 02/28 1324 AC 03/07 PO 1009 Omeprazole 20 MG DAILY AC 02/28 0700 AC 03/07 PO 0549 Prednisone 40 MG ONCE ONE 03/07 0900 DC 03/07 PO 03/07 0901 1009 Sodium Chloride 2 SPRAY Q4P PRN 03/01 2100 AC CESAR Tiotropium [place] 1 PUF DAILY 03/01 0900 AC 03/07 INH 1012 Vital Signs & I&O Last 24 Hrs of Vitals and I&O: Vital Signs Date Time Temp Pulse Resp B/P B/P Pulse O2 O2 Flow FiO2 Mean Ox Delivery Rate 03/07 1020 96 Nasal 50% Cannula 03/07 1020 80 93 03/07 1009 118/60 03/07 0801 94 Nasal 55% Cannula 03/07 0755 98 BIPAP 40% 03/07 0752 86 98 03/07 0559 98.8 98 20 118/60 96 Nasal Cannula 03/06 2249 101 95 03/068 95 BIPAP 5.0L 03/065 93 Nasal 40% Cannula 03/06 2128 102 112/62 03/06 2109 99.1 98 20 106/62 90 03/06 1922 93 Nasal 40% Cannula 03/06 1600 Nasal 40% Cannula 03/06 1600 96 Nasal 45% Cannula 03/06 1426 97.3 76 20 120/50 96 Nasal Cannula Intake & Output 03/07 1600 03/07 0800 03/07 0000 Intake Total 120 Output Total 1150 Balance -1150 120 Intake, Oral 120 Output, Urine 1150 Exam Other Physical Findings: gen awake and alert heent nc cvs s1, s2 lung diminished at bases abd soft bs+ ext 2+ edema Results Last 24 Hrs of Lab Results: Laboratory Tests 03/07/18 0655: Anion Gap 11, Estimated GFR 26 L, BUN/Creatinine Ratio 37.6 H, CBC w Diff NO MAN DIFF REQ, RBC 2.74 L, MCV 86.8, MCH 27.3, MCHC 31.5 L, RDW 17.3 H, MPV 9.2, Gran % 93.1 H, Lymphocytes % 3.1 L, Monocytes % 3.8, Eosinophils % 0, Basophils % 0, Absolute Granulocytes 13.4 H, Absolute Lymphocytes 0.4 L, Absolute Monocytes 0.5, Absolute Eosinophils 0, Absolute Basophils 0 03/06/18 1805: CBC w Diff NO MAN DIFF REQ, RBC 2.63 L, MCV 85.3, MCH 27.3, MCHC 32.0 L, RDW 17.8 H, MPV 9.1, Gran % 97.0 H, Lymphocytes % 2.0 L, Monocytes % 1.0 L, Eosinophils % 0, Basophils % 0, Absolute Granulocytes 13.7 H, Absolute Lymphocytes 0.3 L, Absolute Monocytes 0.1, Absolute Eosinophils 0, Absolute Basophils 0 Impression/Plan Impression/Plan Impression/Plan: Impression 67 year old man CHF exacerbation along with acute COPD exacerbation no obvious evidence of pneumonia Plan -would go back to prednisone 60mg po for now, will taper with you -diuresis -ins/outs -daily weights -cardiology input -nocturnal bipap -monitor hemoglobin - per primary team DVT prophylaxis at all times
[2018-03-07 15:30] VITALS: BP 110/62
--- NOTE | 2018-03-07 17:15 | CT SCAN REPORT ---
EXAMINATION: CT CHEST WITHOUT CONTRAST CLINICAL INFORMATION: Worsening shortness of breath. COMPARISON: Multiple prior studies. The most recent exam is a Chest x-ray 03/07/2018 TECHNIQUE: Multidetector volumetric CT imaging of the chest was done. Axial MIP volume rendering provided. Sagittal and coronal reformatted images were obtained. DLP: 301.3 mGy-cm FINDINGS: LUNGS: There is marked emphysematous changes of lung. Throughout the lungs there is diffuse hazy groundglass opacities and interstitial thickening. All lobes are involved but the groundglass and interstitial opacities most significant at the upper lobes and dependent lower lobes. These are more pronounced than the CAT scan of 02/27/2018. Would therefore favor an acute process such as congestive heart failure with interstitial edema though inflammatory or infectious etiology is not excluded. MEDIASTINUM: Heart size is enlarged. There is vascular calcification of aorta and the coronary arteries. There are shotty subcentimeter lymph nodes but no bulky lymphadenopathy. Right left lobes of the thyroid are prominent. PLEURA: There is no pleural effusion. No pleural mass or thickening. AXILLA: No lymphadenopathy. UPPER ABDOMEN: Multiple calcified gallstones within the gallbladder. The gallbladder is contracted. At the lowest slice images there is partial visualization of an abdominal aortic vascular stent. OSSEOUS STRUCTURES: Degenerative spondylosis spine with multilevel endplate spurs of vertebrae. IMPRESSION: 1. Diffuse groundglass and interstitial thickening which has worsened since the exam of 02/27/2018. Would favor a cardiogenic etiology though infectious or inflammatory etiologies are not excluded. 2. Emphysematous changes of lungs.
[2018-03-07 22:47] VITALS: BP 82/66
--- NOTE | 2018-03-07 23:26 | PN- Cardiology ---
Subjective Subjective: Respiratory status improved, although patient had an episode of desaturation early this morning. Creatinine is now trending down. Objective Vital Signs and I&Os Vital Signs Date Time Temp Pulse Resp B/P B/P Pulse O2 O2 Flow FiO2 Mean Ox Delivery Rate 03/07 2303 94 Nasal 45% Cannula 03/07 2247 98.5 66 18 82/66 93 Nasal Cannula 03/07 2017 94 03/07 2016 93 Nasal 40% Cannula 03/07 1707 98 Nasal 35% Cannula 03/07 1603 90 BIPAP 65% 03/07 1602 80 90 03/07 1530 96.8 92 24 110/62 92 Nasal Cannula 03/07 1425 80 98 03/07 1115 100 98 03/07 1020 96 Nasal 50% Cannula 03/07 1020 80 93 03/07 1009 118/60 03/07 0801 94 Nasal 55% Cannula 03/07 0755 98 BIPAP 40% 03/07 0752 86 98 03/07 0559 98.8 98 20 118/60 96 Nasal Cannula Intake & Output 03/07 1600 03/07 0800 03/07 0000 03/06 1600 03/06 0800 03/06 0000 Intake Total 430 120 420 120 120 Output Total 980 1150 800 525 450 Balance -550 -1150 120 -380 -405 -330 Intake, IV 30 20 Intake, Oral 400 120 400 120 120 Output, Urine 980 1150 800 525 450 Patient 183 lb Weight Physical Exam: General Appearance: Alert, Oriented X3, Cooperative, Mild Distress HEENT: EOMI, Mucous Membr. moist/pink Neck: Supple, No JVD, trachea midline Cardiovascular: irregular, systolic ejection murmur 2/6 LLSB Lungs: Clear to Auscultation, Normal Air Movement, no wheezing Abdomen: Normal Bowel Sounds, Soft, No Tenderness Extremities: 3+ edema bilaterally ad knees. No Clubbing, No Cyanosis, Normal Pulses Current Medications: Current Medications Sig/Eve Start time Last Medication Dose Route Stop Time Status Admin Albuterol Sulfate 3 ML EVERY 4 HRS/AWAKE 02/28 1200 AC 03/07 INH 2016 Aspirin 81 MG DAILY 02/28 1000 AC 03/07 PO 1008 Atorvastatin Calcium 10 MG DAILY 02/28 1000 AC 03/07 PO 1008 Azithromycin 500 MG Q24H 03/07 1455 DC Dextrose/Water 250 ML IV Azithromycin 500 MG Q24H 03/07 1455 DC Sodium Chloride 250 ML IV Budesonide/ 2 PUF BID 03/01 0900 AC 03/07 Formoterol Fumarate INH 2018 Ceftriaxone Sodium 1,000 MG Q24H 03/07 1455 DC IV Diltiazem HCl 240 MG DAILY 03/03 0900 AC 03/07 PO 1008 Ferrous Sulfate 325 MG BID 02/28 1000 AC 03/07 PO 2017 Furosemide 80 MG BID 03/08 09 AC IV Furosemide 40 MG ONCE ONE 03/07 2100 DC IV 03/07 2101 Furosemide 40 MG 1600 03/07 1600 DC 03/07 IV 03/07 1601 1605 Furosemide 40 MG ONCE ONE 03/07 1400 CAN IV 03/07 1401 Furosemide 40 MG ONCE ONE 03/07 1315 DC 03/07 IV 03/07 1316 1324 Furosemide 80 MG DAILY 03/06 09 DC 03/07 IV 0754 Guaifenesin 10 ML Q4P PRN 03/06 0630 AC 03/06 PO 1739 Insulin Aspart 0 TIDAC/HS 03/05 2100 AC 03/07 SC 2305 Loperamide HCl 4 MG BID PRN 02/28 0415 AC PO Methylprednisolone 40 MG ONCE ONE 03/07 1315 DC 03/07 IV 03/07 1316 1324 Metoprolol Tartrate 25 MG BID 02/28 1324 AC 03/07 PO 2017 Omeprazole 20 MG DAILY AC 02/28 0700 AC 03/07 PO 0549 Prednisone 60 MG DAILY 03/08 09 AC PO Prednisone 40 MG ONCE ONE 03/07 0900 DC 03/07 PO 03/07 0901 1009 Sodium Chloride 2 SPRAY Q4P PRN 03/01 2100 AC CESAR Tiotropium [place] 1 PUF DAILY 03/01 0900 AC 03/07 INH 1012 Results Last 48 Hrs of Labs/Mics: Laboratory Tests 03/07/18 0655: Anion Gap 11, Estimated GFR 26 L, BUN/Creatinine Ratio 37.6 H, CBC w Diff NO MAN DIFF REQ, RBC 2.74 L, MCV 86.8, MCH 27.3, MCHC 31.5 L, RDW 17.3 H, MPV 9.2, Gran % 93.1 H, Lymphocytes % 3.1 L, Monocytes % 3.8, Eosinophils % 0, Basophils % 0, Absolute Granulocytes 13.4 H, Absolute Lymphocytes 0.4 L, Absolute Monocytes 0.5, Absolute Eosinophils 0, Absolute Basophils 0 03/06/18 1805: CBC w Diff NO MAN DIFF REQ, RBC 2.63 L, MCV 85.3, MCH 27.3, MCHC 32.0 L, RDW 17.8 H, MPV 9.1, Gran % 97.0 H, Lymphocytes % 2.0 L, Monocytes % 1.0 L, Eosinophils % 0, Basophils % 0, Absolute Granulocytes 13.7 H, Absolute Lymphocytes 0.3 L, Absolute Monocytes 0.1, Absolute Eosinophils 0, Absolute Basophils 0 03/06/18 07: Anion Gap 13, Estimated GFR 19 L, BUN/Creatinine Ratio 30.6 H, Pro-B- Natriuretic Pept 58540 H, CBC w Diff NO MAN DIFF REQ, RBC 2.60 L, MCV 84.8, MCH 27.1, MCHC 32.0 L, RDW 17.5 H, MPV 9.1, Gran % 92.6 H, Lymphocytes % 3.1 L, Monocytes % 4.3, Eosinophils % 0, Basophils % 0, Absolute Granulocytes 10.8 H, Absolute Lymphocytes 0.4 L, Absolute Monocytes 0.5, Absolute Eosinophils 0, Absolute Basophils 0 Assessment/Plan Assessment/Plan Global heart failure , right>left. COPD exacerbation. acute kidney injury due to contrast agent, now improving. Afib anticoagulated with xarelto. In light of the decrease in creatinine, and persistant fluid overload, i would increase lasix to 80 mg IV bid. Continue telemetry? No
[2018-03-08 00:04] VITALS: BP 120/66
[2018-03-08 06:52] VITALS: BP 120/56
--- NOTE | 2018-03-08 08:07 | PN- Housestaff ---
Chuck CR,[place] 03/08/18 0807: Subjective Follow-up For: 1. Acute on Chronic Respiratory Failure 2/2 COPD Exacerbation/CHF Exacerbation 2. History of A.fib on Xarelto and cardizem 3. History of AAA s/p recent endovascular repair 4. Anemia 5. contrast induced nephropathy Complaints: no complaints Tele-Events Since Last Visit: Patient is off telemetry and is a [facility] hold. Subjective: Overnight patient had systolic blood pressure dipped to the 80s. He was taken off the BiPAP at that point and given juice. His blood pressure subsequently resolved but his sugars were high at 487, 466, 452. This morning his blood sugar is in the low 200s. Blood pressure is 120/56. The patient continues to have shortness of breath and requires BiPAP during night and mostly during the day as well he continues to have fluid overload clinically and on imaging. Review of Systems Constitutional: Reports: weakness. EENTM: Reports: no symptoms. Cardiovascular: Reports: no symptoms. Respiratory: Reports: cough, short of breath. Gastrointestinal: Reports: bloating. Genitourinary: Reports: no symptoms. Musculoskeletal: Reports: no symptoms. Objective Last 24 Hrs of Vital Signs/I&O Vital Signs Date Time Temp Pulse Resp B/P B/P Pulse O2 O2 Flow FiO2 Mean Ox Delivery Rate 03/08 0904 80 22 112/78 03/08 0844 92 Nasal 45% Cannula 03/08 0843 95 Nasal 50% Cannula 03/08 0652 98.9 85 18 120/56 94 03/08 0532 82 92 03/08 0301 97 94 03/08 0058 83 97 03/08 0009 97 Nasal 45% Cannula 03/08 0004 120/66 03/08 0000 BIPAP 03/07 2303 94 Nasal 45% Cannula 03/07 2247 98.5 66 18 82/66 93 Nasal Cannula 03/07 2017 94 03/07 2016 93 Nasal 40% Cannula 03/07 1707 98 Nasal 35% Cannula 03/07 1603 90 BIPAP 65% 03/07 1602 80 90 03/07 1530 96.8 92 24 110/62 92 Nasal Cannula 03/07 1425 80 98 Intake & Output 03/08 1600 03/08 0800 03/08 0000 Intake Total 120 180 Output Total 900 1000 Balance -780 -820 Intake, Oral 120 180 Output, Urine 900 1000 Patient 174 lb 176 lb Weight Physical Exam General Appearance: Alert, Oriented X3, Cooperative, No Acute Distress Skin: No Rashes Skin Temp/Moisture Exam: Warm/Dry HEENT: Atraumatic, EOMI, Mucous Membr. moist/pink Cardiovascular: Regular Rate, Normal S1, Normal S2 Lungs: Clear to Auscultation, Normal Air Movement Abdomen: Normal Bowel Sounds, Soft, No Tenderness, No Hepatospenomegaly, distended Neurological: Normal Speech Extremities: No Clubbing, No Cyanosis, 3+ pitting edema bilaterally Vascular: Normal Pulses, Pulses Symmetrical Current Medications: Current Medications Sig/Eve Start time Last Medication Dose Route Stop Time Status Admin Albuterol Sulfate 3 ML EVERY 4 HRS/AWAKE 02/28 1200 AC 03/08 INH 0838 Aspirin 81 MG DAILY 02/28 1000 AC 03/08 PO 0858 Atorvastatin Calcium 10 MG DAILY 02/28 1000 AC 03/08 PO 0859 Azithromycin 500 MG Q24H 03/07 1455 DC Dextrose/Water 250 ML IV Azithromycin 500 MG Q24H 03/07 1455 DC Sodium Chloride 250 ML IV Budesonide/ 2 PUF BID 03/01 0900 AC 03/08 Formoterol Fumarate INH 0905 Ceftriaxone Sodium 1,000 MG Q24H 03/07 1455 DC IV Diltiazem HCl 240 MG DAILY 03/03 0900 AC 03/08 PO 0903 Ferrous Sulfate 325 MG BID 02/28 1000 AC 03/08 PO 0858 Furosemide 80 MG BID 03/08 0900 AC 03/08 IV 0851 Furosemide 40 MG ONCE ONE 03/07 2100 DC IV 03/07 2101 Furosemide 40 MG 1600 03/07 1600 DC 03/07 IV 03/07 1601 1605 Furosemide 40 MG ONCE ONE 03/07 1400 CAN IV 03/07 1401 Furosemide 40 MG ONCE ONE 03/07 1315 DC 03/07 IV 03/07 1316 1324 Furosemide 80 MG DAILY 03/06 0900 DC 03/07 IV 0754 Guaifenesin 10 ML Q4P PRN 03/06 0630 AC 03/06 PO 1739 Insulin Aspart 0 AT BEDTIME 03/08 2100 AC SC Insulin Aspart 0 TIDAC 03/08 0800 AC 03/08 SC 1139 Insulin Aspart 6 UNITS ONCE ONE 03/08 0115 DC 03/08 SC 03/08 0116 0117 Insulin Aspart 0 TIDAC/HS 03/05 2100 DC 03/07 SC 2305 Loperamide HCl 4 MG BID PRN 02/28 0415 AC PO Methylprednisolone 40 MG ONCE ONE 03/07 1315 DC 03/07 IV 03/07 1316 1324 Metoprolol Tartrate 25 MG BID 02/28 1324 AC 03/08 PO 0904 Omeprazole 20 MG DAILY AC 02/28 0700 AC 03/08 PO 0614 Prednisone 60 MG DAILY 03/08 0900 AC 03/08 PO 0858 Sodium Chloride 2 SPRAY Q4P PRN 03/01 2100 AC CESAR Tiotropium [place] 1 PUF DAILY 03/01 0900 AC 03/08 INH 0905 Last 24 Hrs of Lab/Sridhar Results Last 24 Hrs of Labs/Mics: Laboratory Tests 03/08/18 1100: CBC w Diff MAN DIFF ORDERED, RBC 2.81 L, MCV 84.1, MCH 26.6 L, MCHC 31.7 L, RDW 17.3 H, MPV 8.9, Gran % 94.8 H, Lymphocytes % 2.4 L, Monocytes % 2.8, Eosinophils % 0, Basophils % 0, Absolute Granulocytes 12.7 H, Segmented Neutrophils Pending, Absolute Lymphocytes 0.3 L, Absolute Monocytes 0.4, Absolute Eosinophils 0, Absolute Basophils 0 03/08/18 0715: Anion Gap 12, Estimated GFR 24 L, BUN/Creatinine Ratio 39.3 H Lines/Diet/Fluids Streeter Still Needed? Yes Assessment/Plan Assessment: 67-year-old male with a PMHx of end stage COPD on 4 L of oxygen at baseline at home, with BiPAP at night, HFrEF 30%, A. fib on Xarelto, GERD, TIA, NIDDM, HTN, HLD, AAA s/p endovascular repair now here for hypoxic and hypercarbic respiratory failure likely secondary to his COPD and systolic heart failure which has now recently been complicated by acute kidney injury secondary to contrast-induced nephropathy and anemia with hemoglobin 7.0. Today patient was on room air overnight with 98% saturation but this morning was put on 45% oxygen for some shortness of breath. He was on BiPAP overnight. Ins and outs showed net -2180 on 03/05 and -665 on 03/06 status post decreasing his Lasix dose. Yesterday Lasix was increased to 80 mg twice a day IV and his output was -2520. Sugars have been elevated last night in the 400s. Patient has also had a bout of hypotension overnight which resolved. Plan SOB: Likely a mix of acute on chronic systolic CHF/ COPD exacerbation. Pt has terminal COPD and he has systolic heart failure with EF 30-35. His respiratory status is still tenuous and he has increasing oxygen requirement today and has persistently required BIPAP. We have done a CXR today which showed some developing pneumonitis. * CT chest and last night showed no evidence of pneumonia but worsening pulmonary edema. * Continue night time bipap and 3.5 L to 4L oxygen. * TRC/nebulizers and Symbicort and Spiriva * Sputum culture so far negative. * Appreciate pulm recs, we will increase steroid from 60 mg by mouth to 40 mg IV twice a day * Defer to cardiology for addition of Entresto/AICD when renal function resolves. Contrast induced nephropathy: Pt recieved dye for CTA on first day of admission. His Cr has been rising since, and is now in decline. * Increased lasix to 80mg bid iv for volume overload. As per renal, the benefit outweighs the risk to the kidneys as patient is experiencing dyspnea. * Appreciate nephro recs * Will plan for 24hr urine protein creatinine ratio when Cr normalizes * Continue renal dialysis diet to keep Potassium low at 1000 mL fluid restriction Hyperkalemia: Likely 2/2 to his renal failure. * Con't k restricted diet * Potassium today is 4.7. * Con't Lasix A.fib: Follow on tele floor, trops negative. ekg on admission showed afib with rvr, extended qtc with resolution on repeat ekg and now normal heart rates on tele. * We have discontinued Xarelto secondary to kidney function and will not give Eliquis as no studies have been done to show that is safer kidneys with creatinine over 3. Anticoagulation has been held secondary to low hemoglobin. Today we will per cardio recommendations regarding restarting his Xarelto. * Patient was to be taking 480mg cardizem as per his body former but as he has only been taking 240mg daily and had good heart rates we continued him on 240 mg daily. Patient currently has heart rates between 84 and 110 A flutter. We will continue to monitor him on telemetry. * Continue Lopressor 25 mg twice a day For GERD, TIA, NIDDM, HTN, HLD * Continue PPI 40 iv daily patient is receiving high-dose steroids * Hold oral antihyperglycemic and increased low-dose sliding scale coverage to intermediate dose as patient is not adequately covered. Patient is on steroids and has blood sugars in the 400s so we will add a nighttime insulin scale as these blood sugars are found overnight. * Heart healthy diet and continue to monitor sugars. * Continue statin Anemia * Persitently low Hb, in 2016 iron studies show iron deficiency anemia so we will continue him on iron and also guaic stools to determine cause for his anemia. * Morning's hemoglobin is 7.5. If below 7.0 we will transfuse and follow with Lasix for patient's poor ejection fraction. * Guaiac all stools, last stool sample was 2 days ago and was negative. -Heart healthy diet -DVT Ppx with ALPS -FC Problem List: 1. HTN (hypertension) 2. CHF (congestive heart failure) 3. Hyperlipidemia 4. Contrast dye induced nephropathy 5. History of AAA (abdominal aortic aneurysm) repair 6. MADISON (acute kidney injury) 7. Respiratory failure 8. Atrial fibrillation with rapid ventricular response Pain Ratin Pain Location: na Pain Goal: Remain pain free Pain Plan: na Tomorrow's Labs & Rationales: cbc bep Sangeeta Garcia 03/08/18 1124: Attending MD Review Statement Attending Statement Attending MD Statement: examined this patient, discuss w/resident/PA/MEDICAL CENTER MANAGER, agreed w/resident/PA/MEDICAL CENTER MANAGER, discussed with family, reviewed EMR data (avail), discussed with nursing, discussed with case mgmt, reviewed images, amended to note Attending Assessment/Plan: Patient with pmh of chf and copd comes with worsening shortness of breath multifactorial origin with systolic CHF acute on chronic exacerbation and COPD exacerbation with requirement of bipap on admission now developed MADISON likely contrast induced nephropathy and acute on chronic anemia with fluid overload requiring NIPPV support intermittently. Nephrology, Cardiology and pulmonary on board. Patient awake, alert, conversant, Cr 3.3>>>2.5>>2.7, H/h stable in past 24 hrs. No evidence of bleeding reported. Vitals stable. Patient Continue iv lasix bid, PO steroids, oxygen supplementation, NIPPV hs, bronchodilators, ECHO EF 30-35%. afib controlled, resume low dose xarelto, Cardizem 240 daily, lopressor ( decreased from 480, non compliant, was taking 240 only). f/u cardiology. MADISON with elevation of creatinnie with stabilsation. Use of lasix as per nephrology. Anemia multifactorial AOCD, h/h stable. Hb goal 7-8, would avoid fluid overload. Follow cardiology/pulmonary/nephrology recs. Monitor creatinine. Entresto addition as per cardiology recs. (held 12/22 MADISON). bedside. Dwed plan of care.
--- NOTE | 2018-03-08 10:10 | PN- Nephrology ---
Assessment/Plan Nephrology Assessment: Still volume overloaded. MADISON from contrast on top of CKD. Suggestion: Continue BID Lasix despite slight bump in creatinine as still in symptomatic CHF. Subjective Subjective: Still on high flow O2, some signficant SOB this AM. Objective Vital Signs and I&Os Vital Signs Date Time Temp Pulse Resp B/P B/P Pulse O2 O2 Flow FiO2 Mean Ox Delivery Rate 03/08 0904 80 22 112/78 03/08 0844 92 Nasal 45% Cannula 03/08 0843 95 Nasal 50% Cannula 03/08 0652 98.9 85 18 120/56 94 03/08 0532 82 92 03/08 0301 97 94 03/08 0058 83 97 03/08 0009 97 Nasal 45% Cannula 03/08 0004 120/66 03/08 0000 BIPAP 03/07 2303 94 Nasal 45% Cannula 03/07 2247 98.5 66 18 82/66 93 Nasal Cannula 03/07 2017 94 03/07 2016 93 Nasal 40% Cannula 03/07 1707 98 Nasal 35% Cannula 03/07 1603 90 BIPAP 65% 03/07 1602 80 90 03/07 1530 96.8 92 24 110/62 92 Nasal Cannula 03/07 1425 80 98 03/07 1115 100 98 03/07 1020 96 Nasal 50% Cannula 03/07 1020 80 93 Intake & Output 03/08 1600 03/08 0400 03/07 1600 03/07 0400 03/06 1600 03/06 0400 Intake Total 120 180 430 120 540 120 Output Total 900 1000 2130 1325 450 Balance -780 -820 -1700 120 -785 -330 Intake, IV 30 20 Intake, Oral 120 180 400 120 520 120 Output, Urine 900 1000 2130 1325 450 Patient 174 lb 176 lb 183 lb Weight Physical Exam: NAD VS as above Lungs: decreased breath sounds at bases CV: no rub Abd: nontneder Ext: 2+ pretibial edema Neuro: A&O, no asterixis. Current Medications: Current Medications Sig/Eve Start time Last Medication Dose Route Stop Time Status Admin Albuterol Sulfate 3 ML EVERY 4 HRS/AWAKE 02/28 1200 AC 03/08 INH 0838 Aspirin 81 MG DAILY 02/28 1000 AC 03/08 PO 0858 Atorvastatin Calcium 10 MG DAILY 02/28 1000 AC 03/08 PO 0859 Azithromycin 500 MG Q24H 03/07 1455 DC Dextrose/Water 250 ML IV Azithromycin 500 MG Q24H 03/07 1455 DC Sodium Chloride 250 ML IV Budesonide/ 2 PUF BID 03/01 09 AC 03/08 Formoterol Fumarate INH 0905 Ceftriaxone Sodium 1,000 MG Q24H 03/07 1455 DC IV Diltiazem HCl 240 MG DAILY 03/03 0900 AC 03/08 PO 0903 Ferrous Sulfate 325 MG BID 02/28 1000 AC 03/08 PO 0858 Furosemide 80 MG BID 03/08 0900 AC 03/08 IV 0851 Furosemide 40 MG ONCE ONE 03/07 2100 DC IV 03/07 2101 Furosemide 40 MG 1600 03/07 1600 DC 03/07 IV 03/07 1601 1605 Furosemide 40 MG ONCE ONE 03/07 1400 CAN IV 03/07 1401 Furosemide 40 MG ONCE ONE 03/07 1315 DC 03/07 IV 03/07 1316 1324 Furosemide 80 MG DAILY 03/06 0900 DC 03/07 IV 0754 Guaifenesin 10 ML Q4P PRN 03/06 0630 AC 03/06 PO 1739 Insulin Aspart 0 AT BEDTIME 03/08 2100 AC SC Insulin Aspart 0 TIDAC 03/08 0800 AC 03/08 SC 0849 Insulin Aspart 6 UNITS ONCE ONE 03/08 0115 DC 03/08 SC 03/08 0116 0117 Insulin Aspart 0 TIDAC/HS 03/05 2100 DC 03/07 SC 2305 Loperamide HCl 4 MG BID PRN 02/28 0415 AC PO Methylprednisolone 40 MG ONCE ONE 03/07 1315 DC 03/07 IV 03/07 1316 1324 Metoprolol Tartrate 25 MG BID 02/28 1324 AC 03/08 PO 0904 Omeprazole 20 MG DAILY AC 02/28 0700 AC 03/08 PO 0614 Prednisone 60 MG DAILY 03/08 0900 AC 03/08 PO 0858 Sodium Chloride 2 SPRAY Q4P PRN 03/01 2100 AC CESAR Tiotropium [place] 1 PUF DAILY 03/01 09 AC 03/08 INH 0905 Results Pertinent Lab Results: Laboratory Tests 03/08 03/07 0715 0655 Chemistry Sodium (137 - 145 mmol/L) 140 141 Potassium (3.5 - 5.1 mmol/L) 4.7 4.0 Chloride (98 - 107 mmol/L) 92 L 101 Carbon Dioxide (22 - 30 mmol/L) 36 H 29 Anion Gap (5 - 16) 12 11 BUN (9 - 20 mg/dL) 106 *H 94 H Creatinine (0.7 - 1.2 mg/dL) 2.7 H 2.5 H Estimated GFR (>60 ml/min) 24 L 26 L BUN/Creatinine Ratio (7 - 25 %) 39.3 H 37.6 H Hematology CBC w Diff Pending NO MAN DIFF REQ WBC (4.8 - 10.8 /CUMM) Pending 14.4 H RBC (4.70 - 6.10 /CUMM) Pending 2.74 L Hgb (14.0 - 18.0 G/DL) Pending 7.5 L Hct (42 - 52 %) Pending 23.8 L MCV (80.0 - 94.0 FL) Pending 86.8 MCH (27.0 - 31.0 PG) Pending 27.3 MCHC (33.0 - 37.0 G/DL) Pending 31.5 L RDW (11.5 - 14.5 %) Pending 17.3 H Plt Count (130 - 400 /CUMM) Pending 195 MPV (7.4 - 10.4 FL) Pending 9.2 Gran % (42.2 - 75.2 %) 93.1 H Lymphocytes % (20.5 - 51.1 %) 3.1 L Monocytes % (1.7 - 9.3 %) 3.8 Eosinophils % (0 - 5 %) 0 Basophils % (0.0 - 2.0 %) 0 Absolute Granulocytes (1.4 - 6.5 /CUMM) 13.4 H Absolute Lymphocytes (1.2 - 3.4 /CUMM) 0.4 L Absolute Monocytes (0.10 - 0.60 /CUMM) 0.5 Absolute Eosinophils (0.0 - 0.7 /CUMM) 0 Absolute Basophils (0.0 - 0.2 /CUMM) 0 03/06 03/06 1805 0712 Chemistry Sodium (137 - 145 mmol/L) 139 Potassium (3.5 - 5.1 mmol/L) 4.6 Chloride (98 - 107 mmol/L) 93 L Carbon Dioxide (22 - 30 mmol/L) 33 H Anion Gap (5 - 16) 13 BUN (9 - 20 mg/dL) 101 *H Creatinine (0.7 - 1.2 mg/dL) 3.3 H Estimated GFR (>60 ml/min) 19 L BUN/Creatinine Ratio (7 - 25 %) 30.6 H [id number]-[id number] Pept (<125 pg/mL) 83372 H Hematology CBC w Diff NO MAN DIFF REQ NO MAN DIFF REQ WBC (4.8 - 10.8 /CUMM) 14.1 H 11.7 H RBC (4.70 - 6.10 /CUMM) 2.63 L 2.60 L Hgb (14.0 - 18.0 G/DL) 7.2 *L 7.0 *L Hct (42 - 52 %) 22.4 L 22.0 L MCV (80.0 - 94.0 FL) 85.3 84.8 MCH (27.0 - 31.0 PG) 27.3 27.1 MCHC (33.0 - 37.0 G/DL) 32.0 L 32.0 L RDW (11.5 - 14.5 %) 17.8 H 17.5 H Plt Count (130 - 400 /CUMM) 196 184 MPV (7.4 - 10.4 FL) 9.1 9.1 Gran % (42.2 - 75.2 %) 97.0 H 92.6 H Lymphocytes % (20.5 - 51.1 %) 2.0 L 3.1 L Monocytes % (1.7 - 9.3 %) 1.0 L 4.3 Eosinophils % (0 - 5 %) 0 0 Basophils % (0.0 - 2.0 %) 0 0 Absolute Granulocytes (1.4 - 6.5 /CUMM) 13.7 H 10.8 H Absolute Lymphocytes (1.2 - 3.4 /CUMM) 0.3 L 0.4 L Absolute Monocytes (0.10 - 0.60 /CUMM) 0.1 0.5 Absolute Eosinophils (0.0 - 0.7 /CUMM) 0 0 Absolute Basophils (0.0 - 0.2 /CUMM) 0 0 04/16 1841 Chemistry Sodium (137 - 145 mmol/L) 136 L Potassium (3.5 - 5.1 mmol/L) 4.5 Chloride (98 - 107 mmol/L) 90 L Carbon Dioxide (22 - 30 mmol/L) 32 H Anion Gap (5 - 16) 14 BUN (9 - 20 mg/dL) 101 *H Creatinine (0.7 - 1.2 mg/dL) 3.5 H Estimated GFR (>60 ml/min) 18 L BUN/Creatinine Ratio (7 - 25 %) 28.9 H
[2018-03-08 11:10] LABS: ABSOLUTE BASOPHIL COUNT 0 /CUMM (0.0-0.2); ABSOLUTE EOSINOPHIL COUNT 0 /CUMM (0.0-0.7); ABSOLUTE LYMPH COUNT 0.3 /CUMM (1.2-3.4); EOSINOPHIL % 0 % (0-5); MEAN CORPUSCULAR HGB CONC 31.7 G/DL (33.0-37.0)
[2018-03-08 11:17] LABS: ABSOLUTE GRANULOCYTE CT 12.7 /CUMM (1.4-6.5); ABSOLUTE MONOCYTE COUNT 0.4 /CUMM (0.10-0.60); BASOPHIL % 0 % (0.0-2.0); GRANULOCYTE % 94.8 % (42.2-75.2); HEMATOCRIT 23.6 % (42-52); MEAN CORPUSCULAR HGB 26.6 PG (27.0-31.0); MEAN CORPUSCULAR VOLUME 84.1 FL (80.0-94.0); MEAN PLATELET VOLUME 8.9 FL (7.4-10.4); PLATELET COUNT 181 /CUMM (130-400); RBC DISTRIBUTION WIDTH 17.3 % (11.5-14.5); RED BLOOD CELL CT 2.81 /CUMM (4.70-6.10); WHITE BLOOD CELL COUNT 13.4 /CUMM (4.8-10.8)
--- NOTE | 2018-03-08 11:36 | PN- Pulmonary ---
Subjective HPI/Critical Care Issues: pt seen and examined feeling somewhat better on high flow o2 ct consistent with cardiac congestion Objective Current Medications: Current Medications Sig/Eve Start time Last Medication Dose Route Stop Time Status Admin Albuterol Sulfate 3 ML EVERY 4 HRS/AWAKE 02/28 1200 AC 03/08 INH 0838 Aspirin 81 MG DAILY 02/28 1000 AC 03/08 PO 0858 Atorvastatin Calcium 10 MG DAILY 02/28 1000 AC 03/08 PO 0859 Azithromycin 500 MG Q24H 03/07 1455 DC Dextrose/Water 250 ML IV Azithromycin 500 MG Q24H 03/07 1455 DC Sodium Chloride 250 ML IV Budesonide/ 2 PUF BID 03/01 0900 AC 03/08 Formoterol Fumarate INH 0905 Ceftriaxone Sodium 1,000 MG Q24H 03/07 1455 DC IV Diltiazem HCl 240 MG DAILY 03/03 0900 AC 03/08 PO 0903 Ferrous Sulfate 325 MG BID 02/28 1000 AC 03/08 PO 0858 Furosemide 80 MG BID 03/08 0900 AC 03/08 IV 0851 Furosemide 40 MG ONCE ONE 03/07 2100 DC IV 03/07 2101 Furosemide 40 MG 1600 03/07 1600 DC 03/07 IV 03/07 1601 1605 Furosemide 40 MG ONCE ONE 03/07 1400 CAN IV 03/07 1401 Furosemide 40 MG ONCE ONE 03/07 1315 DC 03/07 IV 03/07 1316 1324 Furosemide 80 MG DAILY 03/06 0900 DC 03/07 IV 0754 Guaifenesin 10 ML Q4P PRN 03/06 0630 AC 03/06 PO 1739 Insulin Aspart 0 AT BEDTIME 03/08 2100 AC SC Insulin Aspart 0 TIDAC 03/08 0800 AC 03/08 SC 0849 Insulin Aspart 6 UNITS ONCE ONE 03/08 0115 DC 03/08 SC 03/08 0116 0117 Insulin Aspart 0 TIDAC/HS 03/05 2100 DC 03/07 SC 2305 Loperamide HCl 4 MG BID PRN 02/28 0415 AC PO Methylprednisolone 40 MG ONCE ONE 03/07 1315 DC 03/07 IV 03/07 1316 1324 Metoprolol Tartrate 25 MG BID 02/28 1324 AC 03/08 PO 0904 Omeprazole 20 MG DAILY AC 02/28 0700 AC 03/08 PO 0614 Prednisone 60 MG DAILY 03/08 0900 AC 03/08 PO 0858 Sodium Chloride 2 SPRAY Q4P PRN 03/01 2100 AC CESAR Tiotropium [place] 1 PUF DAILY 03/01 0900 AC 03/08 INH 0905 Vital Signs & I&O Last 24 Hrs of Vitals and I&O: Vital Signs Date Time Temp Pulse Resp B/P B/P Pulse O2 O2 Flow FiO2 Mean Ox Delivery Rate 03/08 0904 80 22 112/78 03/08 0844 92 Nasal 45% Cannula 03/08 0843 95 Nasal 50% Cannula 03/08 0652 98.9 85 18 120/56 94 03/08 0532 82 92 03/08 0301 97 94 03/08 0058 83 97 03/08 0009 97 Nasal 45% Cannula 03/08 0004 120/66 03/08 0000 BIPAP 03/07 2303 94 Nasal 45% Cannula 03/07 2247 98.5 66 18 82/66 93 Nasal Cannula 03/07 2017 94 03/07 2016 93 Nasal 40% Cannula 03/07 1707 98 Nasal 35% Cannula 03/07 1603 90 BIPAP 65% 03/07 1602 80 90 03/07 1530 96.8 92 24 110/62 92 Nasal Cannula 03/07 1425 80 98 Intake & Output 03/08 1600 03/08 0800 03/08 0000 Intake Total 120 180 Output Total 900 1000 Balance -780 -820 Intake, Oral 120 180 Output, Urine 900 1000 Patient 174 lb 176 lb Weight Exam Other Physical Findings: gen awake and alert heent nc cvs s1, s2 lung diminished at bases abd soft bs+ ext 2+ edema Results Last 24 Hrs of Lab Results: Laboratory Tests 03/08/18 1100: CBC w Diff MAN DIFF ORDERED, RBC 2.81 L, MCV 84.1, MCH 26.6 L, MCHC 31.7 L, RDW 17.3 H, MPV 8.9, Gran % 94.8 H, Lymphocytes % 2.4 L, Monocytes % 2.8, Eosinophils % 0, Basophils % 0, Absolute Granulocytes 12.7 H, Segmented Neutrophils Pending, Absolute Lymphocytes 0.3 L, Absolute Monocytes 0.4, Absolute Eosinophils 0, Absolute Basophils 0 03/08/18 0715: Anion Gap 12, Estimated GFR 24 L, BUN/Creatinine Ratio 39.3 H Impression/Plan Impression/Plan Impression/Plan: Impression 67 year old man CHF exacerbation along with acute COPD exacerbation no obvious evidence of pneumonia Plan -dc prednisone - begin solumedrol 40mg iv 12h -diuresis -ins/outs -daily weights -cardiology input -nocturnal bipap -monitor hemoglobin - per primary team DVT prophylaxis at all times
[2018-03-08 15:35] VITALS: BP 110/68
[2018-03-08 22:00] VITALS: BP 118/78
[2018-03-08 23:11] VITALS: BP 140/70
[2018-03-08 23:15] VITALS: BP 106/60
[2018-03-09 06:53] VITALS: BP 98/78
[2018-03-09 08:23] LABS: ABSOLUTE BASOPHIL COUNT 0 /CUMM (0.0-0.2); ABSOLUTE EOSINOPHIL COUNT 0 /CUMM (0.0-0.7); ABSOLUTE LYMPH COUNT 0.2 /CUMM (1.2-3.4); ABSOLUTE MONOCYTE COUNT 0.3 /CUMM (0.10-0.60); BASOPHIL % 0 % (0.0-2.0); EOSINOPHIL % 0 % (0-5); HEMATOCRIT 23.5 % (42-52); MEAN CORPUSCULAR HGB 27.7 PG (27.0-31.0); MEAN CORPUSCULAR HGB CONC 32.1 G/DL (33.0-37.0); MEAN CORPUSCULAR VOLUME 86.3 FL (80.0-94.0); MEAN PLATELET VOLUME 9.5 FL (7.4-10.4); PLATELET COUNT 177 /CUMM (130-400); RBC DISTRIBUTION WIDTH 17.7 % (11.5-14.5); RED BLOOD CELL CT 2.72 /CUMM (4.70-6.10); WHITE BLOOD CELL COUNT 11.5 /CUMM (4.8-10.8)
[2018-03-09 09:11] LABS: GRANULOCYTE % 95.7 % (42.2-75.2)
--- NOTE | 2018-03-09 10:45 | PN- Nephrology ---
Assessment/Plan Nephrology Assessment: Still volume overloaded, very slow improvement in GFR. Suggestion: Continue current meds. Subjective Subjective: Patietn c/o cough, some sore throat. Appears to be diuresing Objective Vital Signs and I&Os Vital Signs Date Time Temp Pulse Resp B/P B/P Pulse O2 O2 Flow FiO2 Mean Ox Delivery Rate 03/09 0837 94 Nasal 40% Cannula 03/09 0653 97.8 88 20 98/78 91 Nasal 5.0L Cannula 03/09 0540 95 Nasal 40% Cannula 03/09 0000 98 BIPAP 5.0L 03/08 2315 106/60 03/08 2312 88 97 03/08 2311 99.0 52 20 140/70 91 Nasal 5.0L Cannula 03/08 2200 98.1 90 20 118/78 96 Nasal 40% Cannula 03/08 2049 90 118/70 03/08 1950 92 Nasal 40% Cannula 03/08 1617 96 Nasal 45% Cannula 03/08 1600 96 Nasal 50% Cannula 03/08 1535 98.6 78 22 110/68 94 Nasal Cannula Intake & Output 03/09 1600 03/09 0400 03/08 1600 03/08 0400 03/07 1600 03/07 0400 Intake Total 180 60 520 180 430 120 Output Total 9466 913 3106 1000 2130 Balance -820 -740 -1130 -820 -1700 120 Intake, IV 30 Intake, Oral 180 60 520 180 400 120 Number 1 Bowel Movements Output, Urine 1803 662 8785 1000 2130 Patient 178 lb 174 lb 176 lb Weight Weight Bed scale Measurement Method Physical Exam: NAD VS as above Lungs: decreased breath sounds at bases CV: no rub Abd: nontneder Ext: 2+ pretibial edema Neuro: A&O, no asterixis. Current Medications: Current Medications Sig/Eve Start time Last Medication Dose Route Stop Time Status Admin Albuterol Sulfate 3 ML EVERY 4 HRS/AWAKE 02/28 1200 AC 03/09 INH 0836 Aspirin 81 MG DAILY 02/28 1000 AC 03/08 PO 0858 Atorvastatin Calcium 10 MG DAILY 02/28 1000 AC 03/08 PO 0859 Budesonide/ 2 PUF BID 03/01 0900 AC 03/08 Formoterol Fumarate INH 2044 Diltiazem HCl 240 MG DAILY 03/03 0900 AC 03/08 PO 09 Ferrous Sulfate 325 MG BID 02/28 1000 AC 03/08 PO 204 Furosemide 80 MG BID 03/08 0900 AC 03/08 IV 204 Guaifenesin 10 ML .STK-MED ONE 03/08 2059 DC PO 03/08 2100 Guaifenesin 10 ML Q4P PRN 03/06 0630 AC 03/08 PO 2101 Insulin Aspart 10 UNITS ONCE ONE 03/08 2230 DC 03/08 SC 03/08 2231 2306 Insulin Aspart 0 AT BEDTIME 03/08 2100 AC 03/08 SC 2044 Insulin Aspart 0 TIDAC 03/08 0800 AC 03/09 SC 0908 Insulin Detemir 8 UNITS BID 03/09 0900 AC 03/09 SC 0933 Loperamide HCl 4 MG BID PRN 02/28 0415 AC PO Methylprednisolone 40 MG Q12 03/08 2100 AC 03/08 IV 204 Metoprolol Tartrate 25 MG BID 02/28 1324 AC 03/08 PO 204 Omeprazole 20 MG DAILY AC 02/28 0700 DC 03/08 PO 0614 Pantoprazole Sodium 40 MG DAILY 03/08 1800 AC 03/08 IV 1840 Prednisone 60 MG DAILY 03/08 0900 DC 03/08 PO 0858 Sodium Chloride 2 SPRAY Q4P PRN 03/01 2100 AC CESAR Tiotropium [place] 1 PUF DAILY 03/01 0900 AC 03/08 INH 0905 Results Pertinent Lab Results: Laboratory Tests 03/09 03/08 0739 1015 Chemistry Sodium (137 - 145 mmol/L) 136 L Potassium (3.5 - 5.1 mmol/L) 4.7 Chloride (98 - 107 mmol/L) 88 L Carbon Dioxide (22 - 30 mmol/L) 38 H Anion Gap (5 - 16) 11 BUN (9 - 20 mg/dL) 113 *H Creatinine (0.7 - 1.2 mg/dL) 2.6 H Estimated GFR (>60 ml/min) 25 L BUN/Creatinine Ratio (7 - 25 %) 43.5 H Hematology CBC w Diff NO MAN DIFF REQ MAN DIFF ORDERED WBC (4.8 - 10.8 /CUMM) 11.5 H 13.4 H RBC (4.70 - 6.10 /CUMM) 2.72 L 2.81 L Hgb (14.0 - 18.0 G/DL) 7.5 L 7.5 L Hct (42 - 52 %) 23.5 L 23.6 L MCV (80.0 - 94.0 FL) 86.3 84.1 MCH (27.0 - 31.0 PG) 27.7 26.6 L MCHC (33.0 - 37.0 G/DL) 32.1 L 31.7 L RDW (11.5 - 14.5 %) 17.7 H 17.3 H Plt Count (130 - 400 /CUMM) 177 181 MPV (7.4 - 10.4 FL) 9.5 8.9 Gran % (42.2 - 75.2 %) 95.7 H 94.8 H Lymphocytes % (20.5 - 51.1 %) 1.9 L 2.4 L Monocytes % (1.7 - 9.3 %) 2.4 2.8 Eosinophils % (0 - 5 %) 0 0 Basophils % (0.0 - 2.0 %) 0 0 Absolute Granulocytes (1.4 - 6.5 /CUMM) 11.0 H 12.7 H Absolute Lymphocytes (1.2 - 3.4 /CUMM) 0.2 L 0.3 L Absolute Monocytes (0.10 - 0.60 /CUMM) 0.3 0.4 Absolute Eosinophils (0.0 - 0.7 /CUMM) 0 0 Absolute Basophils (0.0 - 0.2 /CUMM) 0 0 Platelet Estimate (ADEQUATE) ADEQUATE Hypochromic-Microcytic 2+ Poikilocytosis 1+ Anisocytosis 1+ 03/08 03/07 0715 0655 Chemistry Sodium (137 - 145 mmol/L) 140 141 Potassium (3.5 - 5.1 mmol/L) 4.7 4.0 Chloride (98 - 107 mmol/L) 92 L 101 Carbon Dioxide (22 - 30 mmol/L) 36 H 29 Anion Gap (5 - 16) 12 11 BUN (9 - 20 mg/dL) 106 *H 94 H Creatinine (0.7 - 1.2 mg/dL) 2.7 H 2.5 H Estimated GFR (>60 ml/min) 24 L 26 L BUN/Creatinine Ratio (7 - 25 %) 39.3 H 37.6 H Hematology CBC w Diff NO MAN DIFF REQ WBC (4.8 - 10.8 /CUMM) 14.4 H RBC (4.70 - 6.10 /CUMM) 2.74 L Hgb (14.0 - 18.0 G/DL) 7.5 L Hct (42 - 52 %) 23.8 L MCV (80.0 - 94.0 FL) 86.8 MCH (27.0 - 31.0 PG) 27.3 MCHC (33.0 - 37.0 G/DL) 31.5 L RDW (11.5 - 14.5 %) 17.3 H Plt Count (130 - 400 /CUMM) 195 MPV (7.4 - 10.4 FL) 9.2 Gran % (42.2 - 75.2 %) 93.1 H Lymphocytes % (20.5 - 51.1 %) 3.1 L Monocytes % (1.7 - 9.3 %) 3.8 Eosinophils % (0 - 5 %) 0 Basophils % (0.0 - 2.0 %) 0 Absolute Granulocytes (1.4 - 6.5 /CUMM) 13.4 H Absolute Lymphocytes (1.2 - 3.4 /CUMM) 0.4 L Absolute Monocytes (0.10 - 0.60 /CUMM) 0.5 Absolute Eosinophils (0.0 - 0.7 /CUMM) 0 Absolute Basophils (0.0 - 0.2 /CUMM) 0 03/06 1805 Hematology CBC w Diff NO MAN DIFF REQ WBC (4.8 - 10.8 /CUMM) 14.1 H RBC (4.70 - 6.10 /CUMM) 2.63 L Hgb (14.0 - 18.0 G/DL) 7.2 *L Hct (42 - 52 %) 22.4 L MCV (80.0 - 94.0 FL) 85.3 MCH (27.0 - 31.0 PG) 27.3 MCHC (33.0 - 37.0 G/DL) 32.0 L RDW (11.5 - 14.5 %) 17.8 H Plt Count (130 - 400 /CUMM) 196 MPV (7.4 - 10.4 FL) 9.1 Gran % (42.2 - 75.2 %) 97.0 H Lymphocytes % (20.5 - 51.1 %) 2.0 L Monocytes % (1.7 - 9.3 %) 1.0 L Eosinophils % (0 - 5 %) 0 Basophils % (0.0 - 2.0 %) 0 Absolute Granulocytes (1.4 - 6.5 /CUMM) 13.7 H Absolute Lymphocytes (1.2 - 3.4 /CUMM) 0.3 L Absolute Monocytes (0.10 - 0.60 /CUMM) 0.1 Absolute Eosinophils (0.0 - 0.7 /CUMM) 0 Absolute Basophils (0.0 - 0.2 /CUMM) 0
--- NOTE | 2018-03-09 11:54 | PN- Pulmonary ---
Subjective HPI/Critical Care Issues: pt seen and examined moved to [facility] Objective Current Medications: Current Medications Sig/Eve Start time Last Medication Dose Route Stop Time Status Admin Albuterol Sulfate 3 ML EVERY 4 HRS/AWAKE 02/28 1200 AC 03/09 INH 1145 Aspirin 81 MG DAILY 02/28 1000 AC 03/08 PO 0858 Atorvastatin Calcium 10 MG DAILY 02/28 1000 AC 03/08 PO 0859 Budesonide/ 2 PUF BID 03/01 0900 AC 03/08 Formoterol Fumarate INH 2045 Diltiazem HCl 240 MG DAILY 03/03 0900 AC 03/08 PO 0903 Ferrous Sulfate 325 MG BID 02/28 1000 AC 03/08 PO 2045 Furosemide 80 MG BID 03/08 0900 AC 03/08 IV 2045 Guaifenesin 10 ML .STK-MED ONE 03/08 205 DC PO 03/08 2100 Guaifenesin 10 ML Q4P PRN 03/06 0630 AC 03/08 PO 2102 Insulin Aspart 10 UNITS ONCE ONE 03/08 2230 DC 03/08 SC 03/08 2231 2306 Insulin Aspart 0 AT BEDTIME 03/08 2100 AC 03/08 SC 2045 Insulin Aspart 0 TIDAC 03/08 0800 AC 03/09 SC 0908 Insulin Detemir 8 UNITS BID 03/09 0900 AC 03/09 SC 0933 Loperamide HCl 4 MG BID PRN 02/28 0415 AC PO Methylprednisolone 40 MG Q12 03/08 2100 AC 03/08 IV 2045 Metoprolol Tartrate 25 MG BID 02/28 1324 AC 03/08 PO 2049 Pantoprazole Sodium 40 MG DAILY 03/08 1800 AC 03/08 IV 1840 Prednisone 60 MG DAILY 03/08 0900 DC 03/08 PO 0858 Sodium Chloride 2 SPRAY Q4P PRN 03/01 2100 AC CESAR Tiotropium [place] 1 PUF DAILY 03/01 0900 AC 03/08 INH 0905 Vital Signs & I&O Last 24 Hrs of Vitals and I&O: Vital Signs Date Time Temp Pulse Resp B/P B/P Pulse O2 O2 Flow FiO2 Mean Ox Delivery Rate 03/09 1146 68 99 03/09 0837 94 Nasal 40% Cannula 03/09 0653 97.8 88 20 98/78 91 Nasal 5.0L Cannula 03/09 0540 95 Nasal 40% Cannula 03/09 0000 98 BIPAP 5.0L 04/19 2315 106/60 03/08 2312 88 97 03/08 2311 99.0 52 20 140/70 91 Nasal 5.0L Cannula 03/08 2200 98.1 90 20 118/78 96 Nasal 40% Cannula 03/08 2049 90 118/70 03/08 1950 92 Nasal 40% Cannula 03/08 1617 96 Nasal 45% Cannula 03/08 1600 96 Nasal 50% Cannula 03/08 1535 98.6 78 22 110/68 94 Nasal Cannula Intake & Output 03/09 1600 03/09 0800 03/09 0000 Intake Total 620 180 60 Output Total 1000 800 Balance 620 -820 -740 Intake, Oral 620 180 60 Output, Urine 1000 800 Patient 178 lb Weight Weight Bed scale Measurement Method Exam Other Physical Findings: gen awake and alert heent nc cvs s1, s2 lung diminished at bases abd soft bs+ ext 2+ edema Results Last 24 Hrs of Lab Results: Laboratory Tests 03/09/18 0739: Anion Gap 11, Estimated GFR 25 L, BUN/Creatinine Ratio 43.5 H, CBC w Diff NO MAN DIFF REQ, RBC 2.72 L, MCV 86.3, MCH 27.7, MCHC 32.1 L, RDW 17.7 H, MPV 9.5, Gran % 95.7 H, Lymphocytes % 1.9 L, Monocytes % 2.4, Eosinophils % 0, Basophils % 0, Absolute Granulocytes 11.0 H, Absolute Lymphocytes 0.2 L, Absolute Monocytes 0.3, Absolute Eosinophils 0, Absolute Basophils 0 Impression/Plan Impression/Plan Impression/Plan: Impression 67 year old man CHF exacerbation along with acute COPD exacerbation no obvious evidence of pneumonia Plan -solumedrol 40mg iv 12h -not clear necessity, however given lack of significant improvement would give 7 days of Augmentin to patient per his request and reasonable with recent ct findings -diuresis -ins/outs -daily weights -cardiology input -nocturnal bipap -monitor hemoglobin - per primary team DVT prophylaxis at all times
--- NOTE | 2018-03-09 11:57 | PN- Housestaff ---
Paul Rapp MD,Ami 03/09/18 1156: Subjective Follow-up For: 1. Acute on Chronic Respiratory Failure 2/2 COPD Exacerbation/CHF Exacerbation 2. History of A.fib on Xarelto and cardizem 3. History of AAA s/p recent endovascular repair 4. Anemia 5. contrast induced nephropathy Subjective: Patient visited today, ill looking gentleman, lying in bed in mild distress. Reported no change in breathing, noted to have cough and still reported SOB Appetite good. No chest pain. at 1:20 repid response was called, patient had low saturations on BiPAP was placed. This stat CXR did not reveal any pathology. Cardiology service called and asked for anticoagulation. Informed we can continue lower dose of 15 Xeralto, considering enough diuresis, we continue with Lasix only holding metolazone and acetalozamide. Called , informed about patients condition, Dr Lam present, reviewed the code status, said patient preferred to have intubation, but not for long terms, code status changed to DNR. Review of Systems Constitutional: Reports: see HPI. Objective Last 24 Hrs of Vital Signs/I&O Vital Signs Date Time Temp Pulse Resp B/P B/P Pulse O2 O2 Flow FiO2 Mean Ox Delivery Rate 03/09 1340 99 82 03/09 1224 70 120/70 03/09 1146 68 99 03/09 0837 94 Nasal 40% Cannula 03/09 0653 97.8 88 20 98/78 91 Nasal 5.0L Cannula 03/09 0540 95 Nasal 40% Cannula 03/09 0000 98 BIPAP 5.0L 03/08 2315 106/60 03/08 2312 88 97 03/08 2311 99.0 52 20 140/70 91 Nasal 5.0L Cannula 03/08 2200 98.1 90 20 118/78 96 Nasal 40% Cannula 03/08 2049 90 118/70 03/08 1950 92 Nasal 40% Cannula 03/08 1617 96 Nasal 45% Cannula 03/08 1600 96 Nasal 50% Cannula 03/08 1535 98.6 78 22 110/68 94 Nasal Cannula Intake & Output 03/09 1600 03/09 0800 03/09 0000 Intake Total 620 180 60 Output Total 1000 800 Balance 620 -820 -740 Intake, Oral 620 180 60 Output, Urine 1000 800 Patient 178 lb Weight Weight Bed scale Measurement Method Physical Exam General Appearance: Alert, Oriented X3, Cooperative, Mild Distress Skin Temp/Moisture Exam: Warm/Dry HEENT: Atraumatic Cardiovascular: Normal S1, Normal S2 Lungs: decreased breathing sounds Abdomen: Soft, No Tenderness Extremities: No Edema Current Medications: Current Medications Sig/Eve Start time Last Medication Dose Route Stop Time Status Admin Acetazolamide 250 MG BID 03/09 2100 CAN PO 03/10 2101 Albuterol Sulfate 3 ML EVERY 4 HRS/AWAKE 02/28 1200 AC 03/09 INH 1145 Aspirin 81 MG DAILY 02/28 1000 AC 03/09 PO 1221 Atorvastatin Calcium 10 MG DAILY 02/28 1000 AC 03/09 PO 1223 Budesonide/ 2 PUF BID 03/01 0900 AC 03/09 Formoterol Fumarate INH 1228 Diltiazem HCl 240 MG DAILY 03/03 0900 AC 03/09 PO 1231 Ferrous Sulfate 325 MG BID 02/28 1000 AC 03/09 PO 1222 Furosemide 80 MG BID 03/08 0900 AC 03/09 IV 1222 Guaifenesin 10 ML .STK-MED ONE 03/08 205 DC PO 03/08 2100 Guaifenesin 10 ML Q4P PRN 03/06 0630 AC 03/08 PO 2102 Insulin Aspart 10 UNITS ONCE ONE 03/08 2230 DC 03/08 MA 03/08 2231 2306 Insulin Aspart 0 AT BEDTIME 03/08 2100 AC 03/08 SC 2045 Insulin Aspart 0 TIDAC 03/08 0800 AC 03/09 SC 1338 Insulin Detemir 8 UNITS BID 03/09 0900 AC 03/09 SC 0933 Lactobacillus 1 CAP DAILY 03/09 1515 UNVr Acidophilus PO Loperamide HCl 4 MG BID PRN 02/28 0415 AC PO Methylprednisolone 40 MG Q12 03/08 2100 AC 03/09 IV 1226 Metolazone 2.5 MG DAILY 03/09 1332 DC PO Metoprolol Tartrate 25 MG BID 02/28 1324 AC 03/09 PO 1224 Omeprazole 20 MG DAILY AC 03/10 0700 AC PO Pantoprazole Sodium 40 MG DAILY 03/08 1800 DC 03/09 IV 1225 Sodium Chloride 2 SPRAY Q4P PRN 03/01 2100 AC CESAR Tiotropium [place] 1 PUF DAILY 03/01 0900 AC 03/09 INH 1227 Last 24 Hrs of Lab/Sridhar Results Last 24 Hrs of Labs/Mics: Laboratory Tests 03/09/18 0739: Anion Gap 11, Estimated GFR 25 L, BUN/Creatinine Ratio 43.5 H, Pro-B- Natriuretic Pept 31331 H, CBC w Diff NO MAN DIFF REQ, RBC 2.72 L, MCV 86.3, MCH 27.7, MCHC 32.1 L, RDW 17.7 H, MPV 9.5, Gran % 95.7 H, Lymphocytes % 1.9 L, Monocytes % 2.4, Eosinophils % 0, Basophils % 0, Absolute Granulocytes 11.0 H, Absolute Lymphocytes 0.2 L, Absolute Monocytes 0.3, Absolute Eosinophils 0, Absolute Basophils 0 Microbiology 03/09 1514 URINE ROUT: Urine Culture - COLB Assessment/Plan Assessment: 67-year-old male with a PMHx of end stage COPD on 4 L of oxygen at baseline at home, with BiPAP at night, HFrEF 30%, A. fib on Xarelto, GERD, TIA, NIDDM, HTN, HLD, AAA s/p endovascular repair now here for hypoxic and hypercarbic respiratory failure likely secondary to his COPD and systolic heart failure which has now recently been complicated by acute kidney injury secondary to contrast-induced nephropathy and anemia with hemoglobin 7.0. Today patient was on room air overnight with 98% saturation but this morning was put on 45% oxygen for some shortness of breath. He was on BiPAP overnight. Ins and outs showed net -2180 on 03/05 and -665 on 03/06 status post decreasing his Lasix dose. Yesterday Lasix was increased to 80 mg twice a day IV and his output was -2520. Sugars have been elevated last night in the 400s. Patient has also had a bout of hypotension overnight which resolved. Plan SOB: Likely a mix of acute on chronic systolic CHF/ COPD exacerbation. Pt has terminal COPD and he has systolic heart failure with EF 30-35. His respiratory status is still tenuous and he has increasing oxygen requirement today and has persistently required BIPAP. We have done a CXR today which showed some developing pneumonitis. * CT chest and last night showed no evidence of pneumonia but worsening pulmonary edema. * Continue night time bipap and 3.5 L to 4L oxygen. * TRC/nebulizers and Symbicort and Spiriva * Sputum culture so far negative. * Appreciate pulm recs, we will increase steroid from 60 mg by mouth to 40 mg IV twice a day * Defer to cardiology for addition of Entresto/AICD when renal function resolves. * no need to further diuresis considering enough diuresis and risk of hypotansion * BIPAP started Contrast induced nephropathy: Pt recieved dye for CTA on first day of admission. His Cr has been rising since, and is now in decline. * Increased lasix to 80mg bid iv for volume overload. As per renal, the benefit outweighs the risk to the kidneys as patient is experiencing dyspnea. * Appreciate nephro recs * Will plan for 24hr urine protein creatinine ratio when Cr normalizes * Continue renal dialysis diet to keep Potassium low at 1000 mL fluid restriction * Cr today 2.6 Hyperkalemia: Likely 2/2 to his renal failure. * Con't k restricted diet * Potassium today is 4.7. * Con't Lasix in 80 BID A.fib: Follow on tele floor, trops negative. ekg on admission showed afib with rvr, extended qtc with resolution on repeat ekg and now normal heart rates on tele. * We have discontinued Xarelto secondary to kidney function and will not give Eliquis as no studies have been done to show that is safer kidneys with creatinine over 3. Anticoagulation has been held secondary to low hemoglobin. Today we will per cardio recommendations regarding restarting his Xarelto. * Patient was to be taking 480mg cardizem as per his goodwill representative but as he has only been taking 240mg daily and had good heart rates we continued him on 240 mg daily. Patient currently has heart rates between 84 and 110 A flutter. We will continue to monitor him on telemetry. * Continue Lopressor 25 mg twice a day * Started Xeralto in dose of 15mg For GERD, TIA, NIDDM, HTN, HLD * Continue PPI 40 iv daily patient is receiving high-dose steroids * Hold oral antihyperglycemic and increased low-dose sliding scale coverage to intermediate dose as patient is not adequately covered. Patient is on steroids and has blood sugars in the 400s so we will add a nighttime insulin scale as these blood sugars are found overnight. * Heart healthy diet and continue to monitor sugars. * Continue statin Anemia * Persitently low Hb, in 2016 iron studies show iron deficiency anemia so we will continue him on iron and also guaic stools to determine cause for his anemia. * Morning's hemoglobin is 7.5. If below 7.0 we will transfuse and follow with Lasix for patient's poor ejection fraction. * Guaiac all stools, last stool sample was 2 days ago and was negative. -Heart healthy diet -DVT Ppx with ALPS -FC Problem List: 1. Contrast dye induced nephropathy 2. MADISON (acute kidney injury) 3. History of AAA (abdominal aortic aneurysm) repair 4. Acute respiratory failure with hypoxia Pain Ratin Pain Location: None Pain Goal: Pain 4 or less Pain Plan: Continue currnet plan Tomorrow's Labs & Rationales: CBC BEP Ramon CR,Noah 03/09/18 1156: Attending MD Review Statement Attending Statement Attending MD Statement: examined this patient, discuss w/resident/PA/[employer]EL TRUCK [employer]IVER, agreed w/resident/PA/[employer]EVEL TRUCK DRIVER, reviewed EMR data (avail), discussed with nursing, discussed with case mgmt Attending Assessment/Plan: Patient with pmh of chf and copd came in with worsening shortness of breath multifactorial origin with systolic CHF, acute on chronic exacerbation and COPD exacerbation with requirement of bipap on admission now developed MADISON likely contrast induced nephropathy and acute on chronic anemia with fluid overload requiring NIPPV support intermittently. Patient transferred to [facility] from Telemetry yesterday. Nephrology, Cardiology and pulmonary on board. Patient awake, alert, conversant, Cr 3.3>>>2.5>>2.7>>2.6, hb/hct stable in past 24 hrs. No evidence of bleeding reported. Vitals stable. Patient Continue IV Lasix bid, PO steroids, oxygen supplementation, NIPPV hs, bronchodilators, ECHO EF 30-35%. Atrial fibrillation controlled, xarelto has been on hold since patient has low Hb, extensive bruising Cardizem 240 daily, lopressor 25 BID. f/u cardiology recommendations. Discontinue aspirin. MADISON with elevation of creatinnie with stabilzation. Use of lasix as per nephrology. Anemia multifactorial ACD, h/h stable. Hb goal 7-8, would avoid fluid overload. Follow cardiology/pulmonary/nephrology recs. Monitor creatinine. Entresto addition as per cardiology recs. (held 2/ MADISON).
--- NOTE | 2018-03-09 14:24 | RADIOLOGY REPORT ---
EXAMINATION: CHEST 1 VIEW CLINICAL INFORMATION: Acute respiratory failure. COMPARISON: 03/07/2018. TECHNIQUE: An AP view of the chest is provided. FINDINGS: The cardiac silhouette is enlarged, though stable. There has been slight interval improvement in the appearance of vascular congestion since the prior exam. There is a small right pleural effusion. There is retrocardiac opacification, slightly more prominent than on the prior exam. The osseous structures are stable. IMPRESSION: Stable cardiomegaly with slight interval decrease in degree of vascular congestion. Small right pleural effusion and small nonspecific retrocardiac opacity.
--- NOTE | 2018-03-09 15:38 | PN- Cardiology ---
Subjective Subjective: patient had an episode of desaturation around midday, with O2 sat 80% and was put back on BiPAP. CXR shows slight improvement of vascular congestion but a more prominent retrocardiac opacity. No fever or increased sputum production however. He is urinating very well with lasix 80IV bid, with a net fluid loss 1-2 L/24h. Creatinine has been stagnant around 2.5 for 2 days now. Objective Vital Signs and I&Os Vital Signs Date Time Temp Pulse Resp B/P B/P Pulse O2 O2 Flow FiO2 Mean Ox Delivery Rate 03/09 1340 99 82 03/09 1224 70 120/70 03/09 1146 68 99 03/09 0837 94 Nasal 40% Cannula 03/09 0653 97.8 88 20 98/78 91 Nasal 5.0L Cannula 03/09 0540 95 Nasal 40% Cannula 03/09 0000 98 BIPAP 5.0L 03/08 2315 106/60 03/08 2312 88 97 03/08 2311 99.0 52 20 140/70 91 Nasal 5.0L Cannula 03/08 2200 98.1 90 20 118/78 96 Nasal 40% Cannula 03/08 2049 90 118/70 03/08 1950 92 Nasal 40% Cannula 03/08 1617 96 Nasal 45% Cannula 03/08 1600 96 Nasal 50% Cannula 03/08 1535 98.6 78 22 110/68 94 Nasal Cannula Intake & Output 03/09 1600 03/09 0800 03/09 0000 03/08 1600 03/08 0800 03/08 0000 Intake Total 620 180 60 400 120 180 Output Total 1000 800 633 701 5127 Balance 620 -820 -740 -350 -780 -820 Intake, Oral 620 180 60 400 120 180 Number 1 Bowel Movements Output, Urine 1000 800 213 267 1480 Patient 178 lb 174 lb 176 lb Weight Weight Bed scale Measurement Method Physical Exam: Physical Exam: General Appearance: Alert, Oriented X3, Cooperative, Mild Distress HEENT: EOMI, Mucous Membr. moist/pink Neck: Supple, JVD appears normal, trachea midline. Cardiovascular: irregular, systolic ejection murmur 2/6 LLSB Lungs: Clear to Auscultation, Normal Air Movement, no wheezing Abdomen: Normal Bowel Sounds, Soft, No Tenderness Extremities: 3+ edema bilaterally ad knees. No Clubbing, No Cyanosis, Normal Pulses Current Medications: Current Medications Sig/Eve Start time Last Medication Dose Route Stop Time Status Admin Acetazolamide 250 MG BID 03/09 2100 CAN PO 03/10 2101 Albuterol Sulfate 3 ML EVERY 4 HRS/AWAKE 02/28 1200 AC 03/09 INH 1145 Aspirin 81 MG DAILY 02/28 1000 AC 03/09 PO 1221 Atorvastatin Calcium 10 MG DAILY 02/28 1000 AC 03/09 PO 1223 Budesonide/ 2 PUF BID 03/01 0900 AC 03/09 Formoterol Fumarate INH 1228 Diltiazem HCl 240 MG DAILY 03/03 0900 AC 03/09 PO 1231 Ferrous Sulfate 325 MG BID 02/28 1000 AC 03/09 PO 1222 Furosemide 80 MG BID 03/08 0900 AC 03/09 IV 1222 Guaifenesin 10 ML .STK-MED ONE 03/08 205 DC PO 03/08 2100 Guaifenesin 10 ML Q4P PRN 03/06 0630 AC 03/08 PO 2102 Insulin Aspart 10 UNITS ONCE ONE 03/08 2230 DC 03/08 SC 03/08 2231 2306 Insulin Aspart 0 AT BEDTIME 03/08 2100 AC 03/08 SC 2045 Insulin Aspart 0 TIDAC 03/08 0800 AC 03/09 SC 1338 Insulin Detemir 8 UNITS BID 03/09 0900 AC 03/09 SC 0933 Lactobacillus 1 CAP DAILY 03/09 1515 UNVr Acidophilus PO Loperamide HCl 4 MG BID PRN 02/28 0415 AC PO Methylprednisolone 40 MG Q12 03/08 2100 AC 03/09 IV 1226 Metolazone 2.5 MG DAILY 03/09 1332 DC PO Metoprolol Tartrate 25 MG BID 02/28 1324 AC 03/09 PO 1224 Omeprazole 20 MG DAILY AC 03/10 0700 AC PO Pantoprazole Sodium 40 MG DAILY 03/08 1800 DC 03/09 IV 1225 Sodium Chloride 2 SPRAY Q4P PRN 03/01 2100 AC CESAR Tiotropium [place] 1 PUF DAILY 03/01 0900 AC 03/09 INH 1227 Results Last 48 Hrs of Labs/Mics: Laboratory Tests 03/09/18 0739: Anion Gap 11, Estimated GFR 25 L, BUN/Creatinine Ratio 43.5 H, Pro-B- Natriuretic Pept 00464 H, CBC w Diff NO MAN DIFF REQ, RBC 2.72 L, MCV 86.3, MCH 27.7, MCHC 32.1 L, RDW 17.7 H, MPV 9.5, Gran % 95.7 H, Lymphocytes % 1.9 L, Monocytes % 2.4, Eosinophils % 0, Basophils % 0, Absolute Granulocytes 11.0 H, Absolute Lymphocytes 0.2 L, Absolute Monocytes 0.3, Absolute Eosinophils 0, Absolute Basophils 0 03/08/18 1015: CBC w Diff MAN DIFF ORDERED, RBC 2.81 L, MCV 84.1, MCH 26.6 L, MCHC 31.7 L, RDW 17.3 H, MPV 8.9, Gran % 94.8 H, Lymphocytes % 2.4 L, Monocytes % 2.8, Eosinophils % 0, Basophils % 0, Absolute Granulocytes 12.7 H, Absolute Lymphocytes 0.3 L, Absolute Monocytes 0.4, Absolute Eosinophils 0, Absolute Basophils 0, Platelet Estimate ADEQUATE, Hypochromic-Microcytic 2+, Poikilocytosis 1+, Anisocytosis 1+ 03/08/18 0715: Anion Gap 12, Estimated GFR 24 L, BUN/Creatinine Ratio 39.3 H Assessment/Plan Assessment/Plan global heart failure with hypoxemic respiratory failure in the context of pulmonary congestion, =/- COPD exacerbation. contrast induced [place]. Afib with good rate control. I would continue lasix 80 mg IV BID for the moment as the patient has a satisfactory net fluid loss > 1.5L daily with this dose. I would not add distal tubule agents just as metolazone or HCTZ. Consider decreasing/ceasing solumedrol, as patient does not appear bronchospastic and steroids can exacerbate fluid retention. Anticoagulation with xarelto 15 mg instead of 20 given creatinine clearance <30 and >20, if Hb stable. Once creatinine clearance >35, i would increase xarelto to 20 mg daily. Continue telemetry? Yes
[2018-03-09 20:48] VITALS: BP 102/70
[2018-03-10 06:38] VITALS: BP 116/80
[2018-03-10 08:24] LABS: ABSOLUTE BASOPHIL COUNT 0 /CUMM (0.0-0.2); ABSOLUTE EOSINOPHIL COUNT 0 /CUMM (0.0-0.7); ABSOLUTE GRANULOCYTE CT 18.2 /CUMM (1.4-6.5); ABSOLUTE LYMPH COUNT 0.2 /CUMM (1.2-3.4); ABSOLUTE MONOCYTE COUNT 0.5 /CUMM (0.10-0.60); BASOPHIL % 0 % (0.0-2.0); EOSINOPHIL % 0 % (0-5); GRANULOCYTE % 96.6 % (42.2-75.2); HEMATOCRIT 24.5 % (42-52); MEAN CORPUSCULAR HGB 28.3 PG (27.0-31.0); MEAN CORPUSCULAR HGB CONC 32.3 G/DL (33.0-37.0); MEAN CORPUSCULAR VOLUME 87.6 FL (80.0-94.0); MEAN PLATELET VOLUME 9.8 FL (7.4-10.4); PLATELET COUNT 187 /CUMM (130-400); RBC DISTRIBUTION WIDTH 17.5 % (11.5-14.5)
--- NOTE | 2018-03-10 08:43 | PN- Housestaff ---
Dia CR,Doni 03/10/18 0843: Subjective Follow-up For: 1. Acute on Chronic Respiratory Failure 2/2 COPD Exacerbation/CHF Exacerbation 2. History of A.fib on Xarelto and cardizem 3. History of AAA s/p recent endovascular repair 4. Anemia 5. contrast induced nephropathy Tele-Events Since Last Visit: A. fib with HR 100s-120s Subjective: Patient was seen and examined at bedside. Yesterday while in general medicine floor the patient desaturated on a rapid response was called. He was put on BiPAP and saturations significantly improved he is now on high flow nasal cannula O2. Currently has no complaints, bleeding scalp is improving, denies any shortness of breath, palpitations, chest pain. Review of Systems Constitutional: Denies: chills, malaise. EENTM: Reports: no symptoms. Cardiovascular: Reports: no symptoms. Respiratory: Reports: cough. Gastrointestinal: Reports: no symptoms. Genitourinary: Reports: no symptoms. Musculoskeletal: Reports: no symptoms. Objective Last 24 Hrs of Vital Signs/I&O Vital Signs Date Time Temp Pulse Resp B/P B/P Pulse O2 O2 Flow FiO2 Mean Ox Delivery Rate 03/10 0638 97.9 89 20 116/80 96 BIPAP 03/10 0548 103 96 03/10 0411 96 BIPAP 50% 03/10 0233 108 96 03/10 0023 94 99 03/10 0000 BIPAP 70% 03/09 2252 92 94 03/09 2200 95 BIPAP 80% 03/09 2148 101 102/70 03/09 2048 98.0 110 24 102/70 95 BIPAP 80% 03/09 2031 78 91 03/09 1900 91 Nasal 55% Cannula 03/09 1638 68 100 03/09 1600 BIPAP 80% 03/09 1340 99 82 03/09 1224 70 120/70 03/09 1146 68 99 Intake & Output 03/10 1600 03/10 0800 03/10 0000 Intake Total 210 150 Output Total 625 650 Balance -415 -500 Intake, IV 10 30 Intake, Oral 200 120 Number 0 Bowel Movements Output, Urine 625 650 Patient 175 lb Weight Weight Bed scale Measurement Method Physical Exam General Appearance: Alert, Oriented X3, Cooperative, No Acute Distress Cardiovascular: Normal S1, Normal S2, irregularly irregular rhythm, tachycardia with HR in 100s Lungs: diminished breath sounds, scant rhonchi Abdomen: Normal Bowel Sounds, Soft, No Tenderness Current Medications: Current Medications Sig/Eve Start time Last Medication Dose Route Stop Time Status Admin Acetazolamide 250 MG BID 03/09 2100 CAN PO 03/10 210 Albuterol Sulfate 3 ML EVERY 4 HRS/AWAKE 02/28 1200 AC 03/09 INH 1958 Aspirin 81 MG DAILY 02/28 1000 DC 03/09 PO 1221 Atorvastatin Calcium 10 MG DAILY 02/28 1000 AC 03/09 PO 1223 Budesonide/ 2 PUF BID 03/01 0900 AC 03/09 Formoterol Fumarate INH 1228 Diltiazem HCl 240 MG DAILY 03/03 0900 AC 03/09 PO 1231 Ferrous Sulfate 325 MG BID 02/28 1000 AC 03/09 PO 1222 Furosemide 80 MG BID 03/08 0900 AC 03/09 IV 2041 Guaifenesin 10 ML Q4P PRN 03/06 0630 AC 03/08 PO 210 Insulin Aspart 0 AT BEDTIME 03/08 2100 AC 03/09 SC 205 Insulin Aspart 0 TIDAC 03/08 0800 AC 03/10 SC 0818 Insulin Detemir 8 UNITS BID 03/09 0900 AC 03/09 SC 205 Lactobacillus 1 CAP DAILY 03/09 1515 DC Acidophilus PO Loperamide HCl 4 MG BID PRN 02/28 0415 AC PO Methylprednisolone 40 MG Q12 03/08 2100 AC 03/09 IV 2041 Metolazone 2.5 MG DAILY 03/09 1332 DC PO Metoprolol Tartrate 25 MG BID 02/28 1324 AC 03/09 PO 1224 Omeprazole 20 MG DAILY AC 03/10 0700 AC 03/10 PO 0542 Pantoprazole Sodium 40 MG DAILY 03/08 1800 DC 03/09 IV 1225 Rivaroxaban 15 MG 1900 03/10 1900 AC PO Rivaroxaban 15 MG DAILY 03/09 1536 DC 03/09 PO 1921 Sodium Chloride 2 SPRAY Q4P PRN 03/01 2100 AC CESAR Tiotropium [place] 1 PUF DAILY 03/01 0900 AC 03/09 INH 1227 Last 24 Hrs of Lab/Sridhar Results Last 24 Hrs of Labs/Mics: Laboratory Tests 03/10/18 0640: Anion Gap 9, Estimated GFR 25 L, BUN/Creatinine Ratio 43.8 H, CBC w Diff MAN DIFF ORDERED, RBC 2.80 L, MCV 87.6, MCH 28.3, MCHC 32.3 L, RDW 17.5 H, MPV 9.8, Gran % 96.6 H, Lymphocytes % 1.0 L, Monocytes % 2.4, Eosinophils % 0, Basophils % 0, Absolute Granulocytes 18.2 H, Absolute Lymphocytes 0.2 L, Absolute Monocytes 0.5, Absolute Eosinophils 0, Absolute Basophils 0, Platelet Estimate VERIFIED BY SMEAR, Poikilocytosis 1+, Basophilic Stippling 1+, Anisocytosis 1+, Ovalocytes 1+ 03/09/18 1622: Troponin I 0.08 Microbiology 03/09 1520 URINE ROUT: Urine Culture - RES Assessment/Plan Assessment: 67-year-old male with a PMHx of end stage COPD on 4 L of oxygen at baseline at home, with BiPAP at night, HFrEF 30%, A. fib on Xarelto, GERD, TIA, NIDDM, HTN, HLD, AAA s/p endovascular repair now here for hypoxic and hypercarbic respiratory failure likely secondary to his COPD and systolic heart failure which has now recently been complicated by acute kidney injury secondary to contrast-induced nephropathy and anemia with hemoglobin 7.0. Today patient was on room air overnight with 98% saturation but this morning was put on 45% oxygen for some shortness of breath. He was on BiPAP overnight. Ins and outs showed net -2180 on 03/05 and -665 on 03/06 status post decreasing his Lasix dose. Yesterday Lasix was increased to 80 mg twice a day IV and his output was -2520. Sugars have been elevated last night in the 400s. Patient has also had a bout of hypotension overnight which resolved. Plan SOB: Likely a mix of acute on chronic systolic CHF/ COPD exacerbation. Pt has terminal COPD and he has systolic heart failure with EF 30-35. His respiratory status is still tenuous and he has increasing oxygen requirement today and has persistently required BIPAP. We have done a CXR today which showed some developing pneumonitis. * CT chest 03/07/18 showed no evidence of pneumonia but worsening pulmonary edema. * Patient currently on high flow O2 nasal cannula, taper as tolerated * TRC/nebulizers and Symbicort and Spiriva * Follow up sputum culture * Appreciate pulm recs * Decreased IV Solu-Medrol from 40 mg twice a day, to 40 mg daily * Defer to cardiology for addition of Entresto/AICD when renal function resolves. * Started on hydralazine 20 mg twice a day to reduce afterload * Patient has leukocytosis today WBC 18.8, CXR yesterday showed no acute pathology, follow up sputum culture. Contrast induced nephropathy: Pt recieved dye for CTA on first day of admission. His Cr has been rising since, and is now in decline. * Increased lasix to 80mg bid iv for volume overload. As per renal, the benefit outweighs the risk to the kidneys as patient is experiencing dyspnea. * Appreciate nephro recs * Will plan for 24hr urine protein creatinine ratio when Cr normalizes * Continue renal dialysis diet to keep Potassium low at 1000 mL fluid restriction * Cr today 2.6 Hyperkalemia: Likely 2/2 to his renal failure. * Con't k restricted diet * Potassium today is 4.7. * Con't Lasix in 80 BID A.fib: Follow on tele floor, trops negative. ekg on admission showed afib with rvr, extended qtc with resolution on repeat ekg and now normal heart rates on tele. * We have discontinued Xarelto secondary to kidney function and will not give Eliquis as no studies have been done to show that is safer kidneys with creatinine over 3. Anticoagulation has been held secondary to low hemoglobin. Today we will per cardio recommendations regarding restarting his Xarelto. 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 Patient currently has heart rates between 84 and 110 A flutter. We will continue to monitor him on telemetry. * Continue Lopressor 25 mg twice a day * Continue Xeralto in dose of 15mg * Started digoxin 0.125 mg every other day per cardiology, if patient does not show improvement consider adding dobutamine drip 5 mcg/kg/manny For GERD, TIA, NIDDM, HTN, HLD * Continue PPI 40 iv daily patient is receiving high-dose steroids * Hold oral antihyperglycemic and increased low-dose sliding scale coverage to intermediate dose as patient is not adequately covered. Patient is on steroids and has blood sugars in the 400s so we will add a nighttime insulin scale as these blood sugars are found overnight. * Heart healthy diet and continue to monitor sugars. * Continue statin Anemia * Persitently low Hb, in 2016 iron studies show iron deficiency anemia so we will continue him on iron and also guaic stools to determine cause for his anemia. * Morning's hemoglobin is 7.5. If below 7.0 we will transfuse and follow with Lasix for patient's poor ejection fraction. * Guaiac all stools, last stool sample was 2 days ago and was negative. -Renal dialysis diet -DVT Ppx with ALPS -DNR Problem List: 1. Acute respiratory failure with hypoxia 2. Contrast dye induced nephropathy Pain Ratin Pain Location: none Pain Goal: Remain pain free Pain Plan: pain pathway Tomorrow's Labs & Rationales: cbc, bep RadhaBrianevy 03/10/18 1246: Attending MD Review Statement Attending Statement Attending MD Statement: examined this patient, discuss w/resident/PA/DEICER FINISHER, agreed w/resident/PA/DEICER FINISHER, discussed with family, reviewed EMR data (avail), discussed with nursing, discussed with case mgmt, reviewed images, amended to note Attending Assessment/Plan: 67 o/m with acute on chronic respiratroy failure multifactorial in nature and [place] 2/2 contrast induced nephropathy is on iv lasix and iv steroids. Patient required NIPPV intermittently for respiratroy support. Presently he is on 5l of oxygen with severe underlying COPD/CHF. Patient wants intubation in case his clinical condition worsens. Cont xarelto/statin, PPI, Insulin, dilatizem/ metoprolol, TRCs, Spiriva/symbicort. Patient if no improvement, would consider palliative consult. Will have to discuss with .
[2018-03-10 09:34] LABS: WHITE BLOOD CELL COUNT 18.8 /CUMM (4.8-10.8)
--- NOTE | 2018-03-10 09:35 | PN- Pulmonary ---
Subjective HPI/Critical Care Issues: Patient feels her shortness of breath is somewhat improved. He remains on high flow oxygen and BiPAP Objective Current Medications: Current Medications Sig/Eve Start time Last Medication Dose Route Stop Time Status Admin Acetazolamide 250 MG BID 03/09 2100 CAN PO 03/10 210 Albuterol Sulfate 3 ML EVERY 4 HRS/AWAKE 02/28 1200 AC 03/10 INH 0843 Aspirin 81 MG DAILY 02/28 1000 DC 03/09 PO 1221 Atorvastatin Calcium 10 MG DAILY 02/28 1000 AC 03/10 PO 0930 Budesonide/ 2 PUF BID 03/01 0900 AC 03/10 Formoterol Fumarate INH 0930 Diltiazem HCl 240 MG DAILY 03/03 0900 AC 03/10 PO 0930 Ferrous Sulfate 325 MG BID 02/28 1000 AC 03/10 PO 0930 Furosemide 80 MG BID 03/08 0900 AC 03/10 IV 0930 Guaifenesin 10 ML Q4P PRN 03/06 0630 AC 03/08 PO 2102 Insulin Aspart 0 AT BEDTIME 03/08 2100 AC 03/09 SC 205 Insulin Aspart 0 TIDAC 03/08 0800 AC 03/10 SC 0818 Insulin Detemir 8 UNITS BID 03/09 0900 AC 03/10 SC 0929 Lactobacillus 1 CAP DAILY 03/09 1515 DC Acidophilus PO Loperamide HCl 4 MG BID PRN 02/28 0415 AC PO Methylprednisolone 40 MG DAILY 03/11 0900 AC IV Methylprednisolone 40 MG Q12 03/08 2100 DC 03/10 IV 0929 Metolazone 2.5 MG DAILY 03/09 1332 DC PO Metoprolol Tartrate 25 MG BID 02/28 1324 AC 03/10 PO 0930 Omeprazole 20 MG DAILY AC 03/10 0700 AC 03/10 PO 0542 Pantoprazole Sodium 40 MG DAILY 03/08 1800 DC 03/09 IV 1225 Rivaroxaban 15 MG 1900 03/10 1900 AC PO Rivaroxaban 15 MG DAILY 03/09 1536 DC 03/09 PO 1921 Sodium Chloride 2 SPRAY Q4P PRN 03/01 2100 AC CESAR Tiotropium [place] 1 PUF DAILY 03/01 0900 AC 03/10 INH 0931 Vital Signs & I&O Last 24 Hrs of Vitals and I&O: Vital Signs Date Time Temp Pulse Resp B/P B/P Pulse O2 O2 Flow FiO2 Mean Ox Delivery Rate 03/10 0930 89 116/80 03/10 0638 97.9 89 20 116/80 96 BIPAP 03/10 0548 103 96 03/10 0411 96 BIPAP 50% 03/10 0233 108 96 03/10 0023 94 99 03/10 0000 BIPAP 70% 03/09 2252 92 94 03/09 2200 95 BIPAP 80% 03/09 2148 101 102/70 03/09 2048 98.0 110 24 102/70 95 BIPAP 80% 03/09 2031 78 91 03/09 1900 91 Nasal 55% Cannula 03/09 1638 68 100 03/09 1600 BIPAP 80% 03/09 1340 99 82 03/09 1224 70 120/70 03/09 1146 68 99 Intake & Output 03/10 1600 03/10 0800 03/10 0000 Intake Total 210 150 Output Total 625 650 Balance -415 -500 Intake, IV 10 30 Intake, Oral 200 120 Number 0 Bowel Movements Output, Urine 625 650 Patient 175 lb Weight Weight Bed scale Measurement Method FiO2 0.596% saturation exam of his chest shows diminished breath sounds and occasional crackles there are no wheezes cardiac exam shows regular S1 and S2 there is persistent lower extremity edema Impression/Plan Impression/Plan Impression/Plan: CC 7-year-old gentleman with COPD CHF and acute on chronic hypercapnic respiratory failure complicated by renal failure Recommendations: Taper FiO2 his saturations allow continue negative fluid balance follow up on sputum cultures
--- NOTE | 2018-03-10 13:53 | PN- Cardiology ---
Subjective Subjective: * No shortness of breath on high flow oxygen. * atrial fibrillation * creatinine is 2.6 * severe anemia noted Objective Vital Signs and I&Os Vital Signs Date Time Temp Pulse Resp B/P B/P Pulse O2 O2 Flow FiO2 Mean Ox Delivery Rate 03/10 1217 94 Nasal 60% Cannula 03/10 0930 89 116/80 03/10 0840 93 Nasal 50% Cannula 03/10 0800 96 BIPAP 50% 03/10 0800 93 03/10 0638 97.9 89 20 116/80 96 BIPAP 03/10 0548 103 96 03/10 0411 96 BIPAP 50% 03/10 0233 108 96 03/10 0023 94 99 03/10 0000 BIPAP 70% 03/09 2252 92 94 03/09 2200 95 BIPAP 80% 03/09 2148 101 102/70 03/09 2048 98.0 110 24 10270 95 BIPAP 80% 03/09 2031 78 91 03/09 1900 91 Nasal 55% Cannula 03/09 1638 68 100 03/09 1600 BIPAP 80% Intake & Output 03/10 1600 03/10 0800 03/10 0000 03/09 1600 03/09 0800 03/09 0000 Intake Total 120 210 150 860 180 60 Output Total 625 075 114 2916 800 Balance 120 -415 -500 460 -820 -740 Intake, IV 10 30 Intake, Oral 120 200 120 860 180 60 Number 0 Bowel Movements Output, Urine 625 687 550 2160 800 Patient 175 lb 178 lb Weight Weight Bed scale Bed scale Measurement Method Physical Exam: General: WD/WN male in NAD; alert and oriented x 3 Neck: no JVD Heart: irregularly irregular with 2/6 systolic murmur Lungs: decreased air movement bilaterally Extremities: 3+ bilateral leg edema Assessment/Plan Assessment/Plan * Patient remains fluid overloaded. I suspect his anemia is related to his kidney disfunction. If this is the case consider adding Epogen. An increase in HCT will likely help keep fluid intravascular. * This patient has MR. Begin hydralazine at 20mb BID to provide some afterload reduction. * Continue Lasix at 80mg IV BID with monitoring of his BUN, creatinine and potassium. * In consideration of his enlarged RV and decreased EF I would begin renal dose digoxin at 0.125mg every other day. If the above measures are not effective then we will consider adding a dobutamine drip at 5mcg/kg/min to improved EF and allow diuresis without worsening his renal function. Continue telemetry? Yes
[2018-03-10 14:41] VITALS: BP 110/56
[2018-03-10 22:00] VITALS: BP 98/60
[2018-03-10 22:32] VITALS: BP 94/60
[2018-03-11 06:50] VITALS: BP 114/80
[2018-03-11 08:18] LABS: ABSOLUTE BASOPHIL COUNT 0 /CUMM (0.0-0.2); ABSOLUTE EOSINOPHIL COUNT 0 /CUMM (0.0-0.7); ABSOLUTE LYMPH COUNT 0.2 /CUMM (1.2-3.4); BASOPHIL % 0 % (0.0-2.0)
--- NOTE | 2018-03-11 09:46 | PN- Pulmonary ---
Subjective HPI/Critical Care Issues: Patient feels somewhat improved but remains on high flow oxygen Objective Current Medications: Current Medications Sig/Eve Start time Last Medication Dose Route Stop Time Status Admin Albuterol Sulfate 3 ML EVERY 4 HRS/AWAKE 02/28 1200 AC 03/11 INH 0820 Atorvastatin Calcium 10 MG DAILY 02/28 1000 AC 03/11 PO 0925 Budesonide/ 2 PUF BID 03/01 0900 AC 03/11 Formoterol Fumarate INH 0929 Digoxin 0.125 MG Q48@1700 03/10 1700 AC 03/10 PO 1721 Diltiazem HCl 240 MG DAILY 03/03 0900 AC 03/11 PO 0925 Ferrous Sulfate 325 MG BID 02/28 1000 AC 03/11 PO 0925 Furosemide 80 MG BID 03/08 0900 AC 03/11 IV 0816 Guaifenesin 10 ML Q4P PRN 03/06 0630 AC 03/11 PO 0629 Hydralazine HCl 20 MG BID 03/10 2100 AC 03/11 PO 0925 Insulin Aspart 0 AT BEDTIME 03/08 2100 AC 03/10 SC 2048 Insulin Aspart 0 TIDAC 03/08 0800 AC 03/10 SC 1721 Insulin Detemir 8 UNITS BID 03/09 0900 AC 03/11 SC 0928 Loperamide HCl 4 MG BID PRN 02/28 0415 AC PO Methylprednisolone 40 MG DAILY 03/11 0900 AC 03/11 IV 0816 Metoprolol Tartrate 25 MG BID 02/28 1324 AC 03/11 PO 0925 Omeprazole 20 MG DAILY AC 03/10 0700 AC 03/11 PO 0501 Rivaroxaban 15 MG 1900 03/10 1900 AC 03/10 PO 2030 Sodium Chloride 2 SPRAY Q4P PRN 03/01 2100 AC CESAR Tiotropium [place] 1 PUF DAILY 03/01 0900 AC 03/11 INH 0926 Vital Signs & I&O Last 24 Hrs of Vitals and I&O: Vital Signs Date Time Temp Pulse Resp B/P B/P Pulse O2 O2 Flow FiO2 Mean Ox Delivery Rate 03/11 925 117 114/80 03/11 925 117 114/80 03/11 0820 91 Nasal 60% Cannula 03/11 08 92 Nasal 55% Cannula 03/11 08 92 Nasal 55% Cannula 03/11 0650 97.8 85 20 114/80 93 BIPAP 03/11 0528 98 93 03/11 0423 91 BIPAP 03/11 0237 96 92 03/11 0008 94 92 03/11 0000 BIPAP 03/10 2237 90 94 03/10 2234 90 94/60 03/10 2232 94/60 03/10 2200 97.8 91 22 98/60 94 55% 03/10 2200 94 Nasal 55% Cannula 03/10 2036 101 98/60 03/10 1905 97 Nasal 60% Cannula 03/10 1721 88 104/68 03/10 1600 94 Nasal 60% Cannula 03/10 1600 97 Nasal 60% Cannula 03/10 1535 92 Nasal 60% Cannula 03/10 1441 98.9 84 20 110/56 95 03/10 1400 97 60% 03/10 1217 94 Nasal 60% Cannula Intake & Output 03/11 1600 03/11 0800 03/11 0000 Intake Total 110 720 Output Total 500 375 Balance -390 345 Intake, IV 10 20 Intake, Oral 100 700 Number 1 Bowel Movements Output, Urine 500 375 Patient 173 lb Weight Weight Bed scale Measurement Method FiO2 0.691-92% exam of his chest shows diminished breath sounds occasional crackles there are no wheezes cardiac exam shows a irregular S1 and S2 without murmurs Impression/Plan Impression/Plan Impression/Plan: 67-year-old gentleman with COPD CHF and acute hypoxic respiratory failure in the setting of worsening renal function. Increased white count of concern with sputum showing gram-negative rods Recommendations: Taper FiO2 his saturations allow continue negative fluid balance repeat chest x- ray in view of leukocytosis that there is evidence of infiltrate suspicious for pneumonia would consider covering gram-negative rods pending identification
[2018-03-11 10:37] LABS: ABSOLUTE MONOCYTE COUNT 0.4 /CUMM (0.10-0.60); EOSINOPHIL % 0 % (0-5); GRANULOCYTE % 96.5 % (42.2-75.2); HEMATOCRIT 24.8 % (42-52); MEAN CORPUSCULAR HGB 29.2 PG (27.0-31.0); MEAN CORPUSCULAR HGB CONC 32.9 G/DL (33.0-37.0); MEAN CORPUSCULAR VOLUME 88.8 FL (80.0-94.0); PLATELET COUNT 162 /CUMM (130-400); RBC DISTRIBUTION WIDTH 17.6 % (11.5-14.5); RED BLOOD CELL CT 2.79 /CUMM (4.70-6.10); WHITE BLOOD CELL COUNT 17.6 /CUMM (4.8-10.8)
[2018-03-11 15:01] VITALS: BP 100/58
--- NOTE | 2018-03-11 15:33 | PN- Housestaff ---
Chuck CR,[place] 03/11/18 1533: Subjective Follow-up For: 1. Acute on Chronic Respiratory Failure 2/2 COPD Exacerbation/CHF Exacerbation 2. History of A.fib on Xarelto and cardizem 3. History of AAA s/p recent endovascular repair 4. Anemia 5. contrast induced nephropathy Complaints: no complaints Tele-Events Since Last Visit: afib 98-117 Subjective: patient continues to be short of breath and require bipap or high flow o2. he continues to have significant pedal edema. Review of Systems Constitutional: Reports: no symptoms. Cardiovascular: Reports: peripheral edema. Respiratory: Reports: cough, short of breath. Gastrointestinal: Reports: no symptoms. Objective Last 24 Hrs of Vital Signs/I&O Vital Signs Date Time Temp Pulse Resp B/P B/P Pulse O2 O2 Flow FiO2 Mean Ox Delivery Rate 03/11 1905 93 Nasal 55% Cannula 03/11 1600 92 Nasal 55% Cannula 03/11 1600 92 Nasal 55% Cannula 03/11 1600 92 Nasal 60% Cannula 03/11 1501 98.0 73 16 100/58 94 BIPAP 03/11 1250 95 Nasal 60% Cannula 03/11 0925 117 114/80 03/11 0925 117 114/80 03/11 0820 91 Nasal 60% Cannula 03/11 0800 92 Nasal 55% Cannula 03/11 0800 92 Nasal 55% Cannula 03/11 0650 97.8 85 20 114/80 93 BIPAP 03/11 0528 98 93 03/11 0423 91 BIPAP 03/11 0237 96 92 03/11 0008 94 92 03/11 0000 BIPAP 03/10 2237 90 94 03/10 2234 90 94/60 03/10 2232 94/60 03/10 2200 97.8 91 22 98/60 94 55% 03/10 2200 94 Nasal 55% Cannula Intake & Output 03/11 1600 03/11 0800 03/11 0000 Intake Total 450 110 720 Output Total 700 500 375 Balance -250 -390 345 Intake, IV 10 20 Intake, Oral 450 100 700 Number 1 Bowel Movements Output, Urine 700 500 375 Patient 173 lb Weight Weight Bed scale Measurement Method Physical Exam General Appearance: Alert, Oriented X3, Cooperative, No Acute Distress Skin: No Rashes, No Breakdown, No Significant Lesion Skin Temp/Moisture Exam: Warm/Dry Sepsis Skin Exam (color): Normal for Ethnicity HEENT: Atraumatic, PERRLA, EOMI, Mucous Membr. moist/pink Neck: Supple Cardiovascular: Normal S1, Normal S2 Lungs: Clear to Auscultation Abdomen: Normal Bowel Sounds, Soft, No Tenderness Neurological: Normal Speech Extremities: No Clubbing, No Cyanosis, No Edema, Normal Pulses Vascular: Normal Pulses, Pulses Symmetrical Current Medications: Current Medications Sig/Eve Start time Last Medication Dose Route Stop Time Status Admin Albuterol Sulfate 3 ML EVERY 4 HRS/AWAKE 02/28 1200 AC 03/11 INH 2009 Atorvastatin Calcium 10 MG DAILY 02/28 1000 AC 03/11 PO 0925 Budesonide/ 2 PUF BID 03/01 0900 AC 03/11 Formoterol Fumarate INH 0929 Ceftazidime 2,000 MG Q12 03/11 2100 AC IV 03/12 0901 Ceftazidime 2,000 MG IQ8 03/11 1600 DC IV Ceftriaxone Sodium 1,000 MG DAILY@1300 03/11 1300 DC 03/11 IV 1327 Digoxin 0.125 MG Q48@1700 03/10 1700 AC 03/10 PO 1721 Diltiazem HCl 240 MG DAILY 03/03 0900 AC 03/11 PO 0925 Ferrous Sulfate 325 MG BID 02/28 1000 AC 03/11 PO 0925 Furosemide 80 MG BID 03/08 0900 AC 03/11 IV 0816 Guaifenesin 600 MG Q12 03/11 2100 AC PO Guaifenesin 10 ML .STK-MED ONE 03/11 0629 DC PO 03/11 0630 Guaifenesin 10 ML Q4P PRN 03/06 0630 AC 03/11 PO 0629 Hydralazine HCl 20 MG BID 03/10 2100 AC 03/11 PO 0925 Insulin Aspart 0 AT BEDTIME 03/08 2100 AC 03/10 SC 2048 Insulin Aspart 0 TIDAC 03/08 0800 AC 03/11 SC 1707 Insulin Detemir 8 UNITS BID 03/09 0900 AC 03/11 SC 0928 Loperamide HCl 4 MG BID PRN 02/28 0415 AC PO Methylprednisolone 40 MG DAILY 03/11 0900 AC 03/11 IV 0816 Metoprolol Tartrate 25 MG BID 02/28 1324 AC 03/11 PO 0925 Omeprazole 20 MG DAILY AC 03/10 0700 AC 03/11 PO 0501 Rivaroxaban 15 MG 1900 04/21 1900 AC 03/11 PO 1829 Sodium Chloride 2 SPRAY Q4P PRN 03/01 2100 AC CESAR Tiotropium [place] 1 PUF DAILY 03/01 0900 AC 03/11 INH 0926 Last 24 Hrs of Lab/Sridhar Results Last 24 Hrs of Labs/Mics: Laboratory Tests 03/11/18 0652: Anion Gap 10, Estimated GFR 24 L, BUN/Creatinine Ratio 43.3 H, Magnesium 2.4 H, CBC w Diff MAN DIFF ORDERED, RBC 2.79 L, MCV 88.8, MCH 29.2, MCHC 32.9 L, RDW 17.6 H, MPV 10.0, Gran % 96.5 H, Lymphocytes % 1.4 L, Monocytes % 2.1, Eosinophils % 0, Basophils % 0, Absolute Granulocytes 17.0 H, Absolute Lymphocytes 0.2 L, Absolute Monocytes 0.4, Absolute Eosinophils 0, Absolute Basophils 0, Platelet Estimate VERIFIED BY SMEAR, Poikilocytosis 1+, Basophilic Stippling 1+, Anisocytosis 1+, Ovalocytes 1+ Microbiology 03/11 0503 LOWER RESP: Respiratory Culture - RES 03/11 0503 LOWER RESP: Gram Stain - RES Assessment/Plan Assessment: 67-year-old male with a PMHx of end stage COPD on 4 L of oxygen at baseline at home, with BiPAP at night, HFrEF 30%, A. fib on Xarelto, GERD, TIA, NIDDM, HTN, HLD, AAA s/p endovascular repair now here for hypoxic and hypercarbic respiratory failure likely secondary to his COPD and systolic heart failure which has been complicated by acute kidney injury secondary to contrast-induced nephropathy and anemia with hemoglobin 7.0. Patient was moved to [facility] as his afib rates were controlled but then was moved back to [facility] for continuous pulse ox. Today, the patient continues to be short of breath. His Cr continues to be around 2.7. Bun increase to 117. WBC decrease from 18.8 to 17.6. Patient has been diuresing less. Plan SOB: Likely a mix of acute on chronic systolic CHF/ COPD exacerbation. Pt has terminal COPD and he has systolic heart failure with EF 30-35. His respiratory status is still tenuous and he has increasing oxygen requirement today and has persistently required BIPAP. We have done a CXR today which showed some developing pneumonitis. CT chest 03/07/18 showed no evidence of pneumonia but worsening pulmonary edema. * Patient currently on high flow O2 nasal cannula, taper as tolerated * TRC/nebulizers and Symbicort and Spiriva * Follow up sputum culture * Appreciate pulm recs * Continue IV Solu-Medrol 40 mg daily * Defer to cardiology for addition of Entresto/AICD when renal function resolves. * Hydralazine 20 mg twice a day to reduce afterload-patient has MR. * WBC count has decreased slightly but remains elevated - do repeat cxr and cover for GNRs pending identification with matt schuster after taking respiratory culture. Contrast induced nephropathy: Pt recieved dye for CTA on first day of admission. His Cr has been rising since, and is now in decline. * Increased lasix to 80mg bid iv for volume overload. As per renal, the benefit outweighs the risk to the kidneys as patient is experiencing dyspnea. * Appreciate nephro recs * Will plan for 24hr urine protein creatinine ratio when Cr normalizes * Continue renal dialysis diet to keep Potassium low at 1000 mL fluid restriction * Cr today 2.6 Hyperkalemia: Likely 2/2 to his renal failure. * Con't k restricted diet * Potassium today is 4.7. * Con't Lasix in 80 BID A.fib: Follow on tele floor, trops negative. ekg on admission showed afib with rvr, extended qtc with resolution on repeat ekg and now normal heart rates on tele. * We have discontinued Xarelto secondary to kidney function and will not give Eliquis as no studies have been done to show that is safer kidneys with creatinine over 3. Anticoagulation has been held secondary to low hemoglobin. Today we will per cardio recommendations regarding restarting his Xarelto. * Patient was to be taking 480mg cardizem as per his mud [place] tender but as he has only been taking 240mg daily and had good heart rates we continued him on 240 mg daily. Patient currently has heart rates between 84 and 110 A flutter. We will continue to monitor him on telemetry. * Continue Lopressor 25 mg twice a day * Continue Xeralto in dose of 15mg * Continue digoxin 0.125 mg every other day per cardiology, if patient does not show improvement consider adding dobutamine drip 5 mcg/kg/manny For GERD, TIA, NIDDM, HTN, HLD * Continue PPI 40 iv daily patient is receiving high-dose steroids * Hold oral antihyperglycemic and increased low-dose sliding scale coverage to intermediate dose as patient is not adequately covered. Patient is on steroids and has blood sugars in the 400s so we will add a nighttime insulin scale as these blood sugars are found overnight. * Heart healthy diet and continue to monitor sugars. * Continue statin Anemia * Persitently low Hb, in 2016 iron studies show iron deficiency anemia so we will continue him on iron and also guaic stools to determine cause for his anemia. consider epogen as cause may be renal in nature. * Guaiac all stools, last stool sample was 2 days ago and was negative. -Renal dialysis diet -DVT Ppx with ALPS -DNR Problem List: 1. Acute respiratory failure with hypoxia 2. Contrast dye induced nephropathy 3. MADISON (acute kidney injury) 4. Atrial fibrillation with rapid ventricular response 5. HTN (hypertension) 6. COPD (chronic obstructive pulmonary disease) 7. CHF (congestive heart failure) Pain Ratin Pain Location: na Pain Goal: Remain pain free Pain Plan: na Tomorrow's Labs & Rationales: [email or web address] Sangeeta Garcia 03/11/18 1537: Attending MD Review Statement Attending Statement Attending MD Statement: examined this patient, discuss w/resident/PA/[employer], agreed w/resident/PA/[employer], discussed with family, reviewed EMR data (avail), discussed with nursing, discussed with case mgmt, reviewed images, amended to note Attending Assessment/Plan: 67 o/m with acute on chronic respiratroy failure multifactorial in nature and MADISON 2/2 contrast induced nephropathy is on iv lasix and iv steroids. Patient required NIPPV intermittently for respiratroy support. Presently he is on high flow oxygen with severe underlying COPD/CHF. Patient growing gram negative rods in sputum. He is afebrile, leukocytosis+. Patient empiric start on iv antibtoics cover pseudomonasm, obtain chest xray. f/ u pulmonary. Cont xarelto/statin, PPI, Insulin, dilatizem/metoprolol, TRCs, Spiriva/ symbicort. Patient if no improvement, would consider palliative consult. Will have to discuss with . Patient wants intubation in case his clinical condition worsens.
--- NOTE | 2018-03-11 15:48 | PN- Cardiology ---
Subjective Subjective: * Breathing is still not back to baseline. * atrial fibrillation with good rate control * creatinine 2.7 * persistent severe anemia Objective Vital Signs and I&Os Vital Signs Date Time Temp Pulse Resp B/P B/P Pulse O2 O2 Flow FiO2 Mean Ox Delivery Rate 03/11 1501 98.0 73 16 100/58 94 BIPAP 03/11 1250 95 Nasal 60% Cannula 03/11 0925 117 114/80 03/11 0925 117 114/80 03/11 0820 91 Nasal 60% Cannula 03/11 0800 92 Nasal 55% Cannula 03/11 0800 92 Nasal 55% Cannula 03/11 0650 97.8 85 20 114/80 93 BIPAP 03/11 0528 98 93 03/11 0423 91 BIPAP 03/11 0237 96 92 03/11 0008 94 92 03/11 0000 BIPAP 03/10 2237 90 94 03/10 2234 90 94/60 03/10 2232 94/60 03/10 2200 97.8 91 22 98/60 94 55% 03/10 2200 94 Nasal 55% Cannula 03/10 2036 101 98/60 03/10 1905 97 Nasal 60% Cannula 03/10 1721 88 104/68 03/10 1600 94 Nasal 60% Cannula 03/10 1600 97 Nasal 60% Cannula Intake & Output 03/11 1600 03/11 0800 03/11 0000 03/10 1600 03/10 0800 03/10 0000 Intake Total 450 110 720 200 210 150 Output Total 700 500 375 450 625 650 Balance -250 -390 345 -250 -415 -500 Intake, IV 10 20 10 30 Intake, Oral 450 100 700 200 200 120 Number 1 1 0 Bowel Movements Output, Urine 700 500 375 450 625 650 Patient 173 lb 175 lb Weight Weight Bed scale Bed scale Measurement Method Physical Exam: General: WD/WN male in NAD; alert and oriented x 3 Neck: no JVD Heart: irregularly irregular with 2/6 systolic murmur Lungs: decreased air movement bilaterally Extremities: 1+ bilateral leg edema Assessment/Plan Assessment/Plan * Patient remains fluid overloaded. I suspect his anemia is related to his kidney disfunction. If this is the case, consider adding Epogen. An increase in HCT will likely help keep fluid intravascular. * This patient has MR. Continue hydralazine at 20mg BID to provide some afterload reduction. * Continue Lasix at 80mg IV BID with monitoring of his BUN, creatinine and potassium. * In consideration of his enlarged RV and decreased EF continue renal dose digoxin at 0.125mg every other day. If the above measures are not effective then we will consider adding a dobutamine drip at 5mcg/kg/min to improved EF and allow diuresis without worsening his renal function. Continue telemetry? Yes
--- NOTE | 2018-03-11 18:35 | RADIOLOGY REPORT ---
EXAMINATION: XR PORTABLE CHEST CLINICAL INFORMATION: Pneumonia. Respiratory failure. COMPARISON: Chest radiograph 03/09/2018. TECHNIQUE: Portable frontal view of the chest was obtained. FINDINGS: There are ill-defined bilateral opacities with a lower lobe predominant distribution that appear to have slightly progressed when compared to the chest radiograph from 03/09/2018. Possible trace effusions. No pneumothorax. The cardiac silhouette is enlarged and upper mediastinal contours are stable. No acute osseous finding. IMPRESSION: Bilateral opacities with a lower lobe predominant distribution have slightly progressed when compared to the recent chest radiograph from 03/09/2018.
[2018-03-11 23:20] VITALS: BP 100/60
[2018-03-12 07:00] VITALS: BP 106/64
[2018-03-12 08:07] LABS: ABSOLUTE BASOPHIL COUNT 0 /CUMM (0.0-0.2); ABSOLUTE EOSINOPHIL COUNT 0 /CUMM (0.0-0.7); ABSOLUTE GRANULOCYTE CT 13.7 /CUMM (1.4-6.5); ABSOLUTE LYMPH COUNT 0.4 /CUMM (1.2-3.4); ABSOLUTE MONOCYTE COUNT 0.3 /CUMM (0.10-0.60); BASOPHIL % 0 % (0.0-2.0); EOSINOPHIL % 0.1 % (0-5); GRANULOCYTE % 95.3 % (42.2-75.2); HEMATOCRIT 23.5 % (42-52); MEAN CORPUSCULAR HGB 28.4 PG (27.0-31.0); MEAN CORPUSCULAR HGB CONC 32.1 G/DL (33.0-37.0); MEAN CORPUSCULAR VOLUME 88.3 FL (80.0-94.0); MEAN PLATELET VOLUME 10.2 FL (7.4-10.4); PLATELET COUNT 155 /CUMM (130-400); RBC DISTRIBUTION WIDTH 17.5 % (11.5-14.5); RED BLOOD CELL CT 2.66 /CUMM (4.70-6.10); WHITE BLOOD CELL COUNT 14.4 /CUMM (4.8-10.8)
--- NOTE | 2018-03-12 10:02 | PN- Cardiology ---
Subjective Subjective: The patient is uncomfortable at this time. He is receiving high flow oxygen of 55% and satting around 94%. He feels this is too low for him. He remains in atrial fibrillation. His rate is in the 90s. He is on digoxin and Cardizem. He remains on IV steroids and IV Lasix. Objective Vital Signs and I&Os Vital Signs Date Time Temp Pulse Resp B/P B/P Pulse O2 O2 Flow FiO2 Mean Ox Delivery Rate 03/12 0837 104 110/60 03/12 0837 118 110/60 03/12 0810 89 Nasal 60% Cannula 03/12 0700 97.4 110 20 106/64 95 BIPAP 03/12 0600 95 BIPAP 50% 03/12 0528 96 93 03/12 0248 88 95 03/12 0025 94 95 03/12 0000 95 BIPAP 03/11 2320 97.4 91 18 100/60 94 Nasal Cannula 03/11 2215 80 93 03/11 2200 93 Nasal 55% Cannula 03/11 2147 103 110/60 03/11 2147 104 110/60 03/11 1905 93 Nasal 55% Cannula 03/11 1600 92 Nasal 55% Cannula 03/11 1600 92 Nasal 55% Cannula 03/11 1600 92 Nasal 60% Cannula 03/11 1501 98.0 73 16 100/58 94 BIPAP 03/11 1250 95 Nasal 60% Cannula Intake & Output 03/12 1600 03/12 0800 03/12 0000 03/11 1600 03/11 0800 03/11 0000 Intake Total 50 214 450 110 720 Output Total 850 400 700 500 375 Balance -800 -186 -250 -390 345 Intake, IV 44 10 20 Intake, Oral 50 170 450 100 700 Number 1 Bowel Movements Output, Urine 850 400 700 500 375 Patient 172 lb 173 lb Weight Weight Bed scale Bed scale Measurement Method Physical Exam: Acute and chronically ill late middle-aged man HEENT exam normal Neck veins not distended Chest diffuse rhonchi Heart irregular rhythm, soft heart sounds, no murmurs Extremities 1-2+ edema Current Medications: Current Medications Sig/Eve Start time Last Medication Dose Route Stop Time Status Admin Albuterol Sulfate 3 ML EVERY 4 HRS/AWAKE 02/28 1200 AC 03/12 INH 0812 Atorvastatin Calcium 10 MG DAILY 02/28 1000 AC 03/12 PO 0838 Budesonide/ 2 PUF BID 04/12 0900 AC 03/12 Formoterol Fumarate INH 0838 Ceftazidime 2,000 MG Q12 03/11 2100 DC 03/12 IV 03/12 0901 0836 Ceftazidime 2,000 MG IQ8 03/11 1600 DC IV Ceftriaxone Sodium 1,000 MG DAILY@1300 03/11 1300 DC 03/11 IV 1327 Digoxin 0.125 MG Q48@1700 03/10 1700 AC 03/10 PO 1721 Diltiazem HCl 240 MG DAILY 03/03 0900 AC 03/12 PO 0837 Ferrous Sulfate 325 MG BID 02/28 1000 AC 03/12 PO 0837 Furosemide 80 MG BID 03/08 0900 AC 03/12 IV 0836 Guaifenesin 600 MG Q12 03/11 2100 AC 03/12 PO 0837 Guaifenesin 10 ML Q4P PRN 03/06 0630 AC 03/11 PO 0629 Hydralazine HCl 20 MG BID 03/10 2100 AC 03/12 PO 0837 Insulin Aspart 0 AT BEDTIME 03/08 2100 AC 03/10 SC 2048 Insulin Aspart 0 TIDAC 03/08 0800 AC 03/12 SC 0807 Insulin Detemir 8 UNITS BID 03/09 0900 AC 03/12 SC 0807 Loperamide HCl 4 MG BID PRN 02/28 0415 AC PO Methylprednisolone 40 MG DAILY 03/11 0900 AC 03/12 IV 0836 Metoprolol Tartrate 25 MG BID 02/28 1324 AC 03/12 PO 0837 Omeprazole 20 MG DAILY AC 03/10 0700 AC 03/12 PO 0622 Rivaroxaban 15 MG 1900 03/10 1900 AC 03/11 PO 1829 Sodium Chloride 2 SPRAY Q4P PRN 03/01 2100 AC CESAR Tiotropium [place] 1 PUF DAILY 03/01 0900 AC 03/12 INH 0838 Results Last 48 Hrs of Labs/Mics: Laboratory Tests 03/12/18 0656: Anion Gap 15, Estimated GFR 26 L, BUN/Creatinine Ratio 45.2 H, CBC w Diff MAN DIFF ORDERED, RBC 2.66 L, MCV 88.3, MCH 28.4, MCHC 32.1 L, RDW 17.5 H, MPV 10.2, Gran % 95.3 H, Lymphocytes % 2.5 L, Monocytes % 2.1, Eosinophils % 0.1, Basophils % 0, Absolute Granulocytes 13.7 H, Absolute Lymphocytes 0.4 L, Absolute Monocytes 0.3, Absolute Eosinophils 0, Absolute Basophils 0, Platelet Estimate VERIFIED BY SMEAR, Poikilocytosis 1+, Basophilic Stippling 1+, Anisocytosis 1+, Ovalocytes 1+ 03/11/18 0652: Anion Gap 10, Estimated GFR 24 L, BUN/Creatinine Ratio 43.3 H, Magnesium 2.4 H, CBC w Diff MAN DIFF ORDERED, RBC 2.79 L, MCV 88.8, MCH 29.2, MCHC 32.9 L, RDW 17.6 H, MPV 10.0, Gran % 96.5 H, Lymphocytes % 1.4 L, Monocytes % 2.1, Eosinophils % 0, Basophils % 0, Absolute Granulocytes 17.0 H, Absolute Lymphocytes 0.2 L, Absolute Monocytes 0.4, Absolute Eosinophils 0, Absolute Basophils 0, Platelet Estimate VERIFIED BY SMEAR, Poikilocytosis 1+, Basophilic Stippling 1+, Anisocytosis 1+, Ovalocytes 1+ Recent Imaging Studies: PATIENT: COURTNEY MURCIA PRESENT AGE: 67 PATIENT ACCOUNT NO: [id number] : 49 LOCATION: [facility] ORDERING PHYSICIAN: Adelaide Woods MD SERVICE DATE: 03/11/18- EXAM TYPE: RAD - XRY-PORTABLE CHEST XRAY EXAMINATION: XR PORTABLE CHEST CLINICAL INFORMATION: Pneumonia. Respiratory failure. COMPARISON: Chest radiograph 03/09/2018. TECHNIQUE: Portable frontal view of the chest was obtained. FINDINGS: There are ill-defined bilateral opacities with a lower lobe predominant distribution that appear to have slightly progressed when compared to the chest radiograph from 03/09/2018. Possible trace effusions. No pneumothorax. The cardiac silhouette is enlarged and upper mediastinal contours are stable. No acute osseous finding. IMPRESSION: Bilateral opacities with a lower lobe predominant distribution have slightly progressed when compared to the recent chest radiograph from 03/09/2018. DICTATED BY: Rigo Ace MD DATE/TIME DICTATED:03/11/181828 [employer] MECH[employer]IC APPRENTICE:LINDY DATE/TIME TRANSCRIBED:03/11/181828 CONFIDENTIAL, DO NOT COPY WITHOUT APPROPRIATE AUTHORIZATION. <Electronically signed in Other Vendor System> SIGNED BY: Rigo Ace MD 03/11 2877 Assessment/Plan Assessment/Plan The patient appears not to be improving. He still has very high oxygen requirements. His BUN and creatinine are slightly improved but still quite abnormal. His heart rate is controlled. I recommend continuing him on IV diuretics. I would discuss with pulmonary cutting back on his steroids. The patient is not improving. I think a palliative care consultation with an eye toward goals of care discussion would be appropriate at this time. Continue telemetry? No
--- NOTE | 2018-03-12 11:40 | Cons- Palliative Care ---
General Information and HPI Consulting Request Date of Consult: 03/12/18 Requested By: Sangeeta Garcia MD Reason for Consult: pain management, non-pain symptom mgmt, care/transition planning Source patient, housestaff Associated Symptoms: pain, dyspnea, anorexia, tiredness/fatigue/drowsy, anxiety, depression History of Present Illness: 67 year old male with end-stage COPD, CHF. Patient's condition has deteriorated to the point where he is requiring high- flow O2, NIPPV. He is also experiencing CHF with reduced EF. Other problems at this time include contrast induced nephropathy, and now pneumonia. Mr. Vieira shares that he is experiencing moderate to severe distress related to dyspnea, overall physical discomfort. He finds that he is more comfortable sitting up, but does not wish to remain in chair as he then requires assistance of 2 or more individuals to get back into bed. It is this level of disability that is now evoking sadness and frustration. He shares that he feels guilty that his has to see him in such discomfort and in need of such care. Other problems include dysasthetic pain in his toes. We began a goals of care discussion today starting with focusing on symptom managment and to next explore alternatives to his current hospitalization. To that end I have suggested that we have a formal meeting on Monday to explore care options. Allergies/Medications Allergies: Coded Allergies: NO KNOWN ALLERGIES (NONE 03/02/18) Home Med List: [ACETAZOLAMIDE ER] 500 MG 1 PO DAILY DIRECTED (Reported) Albuterol Sulfate (Proair Hfa) 90 MCG HFA.AER.AD 2 PUF INH Q4-6 PRN PRN SHORTNESS OF BREATH (Reported) Albuterol Sulfate 2.5 MG/3 ML (0.083 %) VIAL.NEB 1 Vial INH/ABILIO Q4P PRN SHORTNESS OF BREATH (Reported) Aspirin (Aspirin*) 81 MG TAB.CHEW 1 TAB PO DAILY HEART HEALTH (Reported) Atorvastatin Calcium (Lipitor) 10 MG TABLET 1 TAB PO DAILY CHOLESTEROL ( Reported) Budesonide/Formoterol Fumarate (Symbicort 160-4.5 Mcg Inhaler) 160 MCG-4.5 MCG/ ACTUATION HFA.AER.AD 2 PUF INH BID SHORTNESS OF BREATH (Reported) Cyanocobalamin (Vitamin B-12) (B-12) 1,000 MCG TABLET 1 TAB PO DAILY VITAMIN SUPPORT (Reported) Diltiazem HCl (Cardizem Cd) 240 MG CAP.ER.24H 480 MG PO DAILY Atrial fibrillation Ferrous Sulfate 325 MG TABLET.DR 325 MG PO BID Iron supplement Furosemide (Lasix) 40 MG TABLET 1 TAB PO BID Water pill Loperamide HCl (Loperamide) 2 MG CAPSULE 2 CAP PO BID PRN ANTI-DIARRHEAL ( Reported) Metformin HCl (Glucophage) 1,000 MG TABLET 1 TAB PO BID DIABETES (Reported) [NATURE MADE IRON] 65 MG TAB 4 TAB PO QHS BLOOD HEALTH (Reported) Oxycodone HCl/Acetaminophen (Percocet 5-325 MG Tablet) 5 MG-325 MG TABLET 1-2 TAB PO Q4-6 PRN PAIN tylenol alternatively. do not combine. Pantoprazole Sodium (Protonix) 40 MG TABLET. 1 TAB PO DAILY ACID REFLUX ( Reported) Prednisone 10 MG TABLET 1 TAB PO SEE ADMIN CRITERIA COPD TAKE 3 TABS X 3 DAYS 2 TABS X 3 DAYS 1 TAB X 3 DAYS THEN STOP.... Rivaroxaban (Xarelto) 20 MG TABLET 1 TAB PO DAILY BLOOD THINNER (Reported) with food Tiotropium [place] (Spiriva) 18 MCG CAP.W.DEV 1 CAP INH DAILY SHORTNESS OF BREATH (Reported) Current Medications: Current Medications Sig/Eve Start time Last Medication Dose Route Stop Time Status Admin Albuterol Sulfate 3 ML EVERY 4 HRS/AWAKE 02/28 1200 AC 03/12 INH 2029 Atorvastatin Calcium 10 MG DAILY 02/28 1000 AC 03/12 PO 0838 Budesonide/ 2 PUF BID 03/01 0900 AC 03/12 Formoterol Fumarate INH 2008 Ceftazidime 2,000 MG Q12 03/11 2100 DC 03/12 IV 03/12 0901 0836 Digoxin 0.125 MG Q48@1700 03/10 1700 AC 03/12 PO 1730 Diltiazem HCl 240 MG DAILY 03/03 0900 AC 03/12 PO 0837 Ferrous Sulfate 325 MG BID 02/28 1000 AC 03/12 PO 2005 Furosemide 80 MG BID 03/08 0900 AC 03/12 IV 2004 Guaifenesin 600 MG Q12 03/11 2100 AC 03/12 PO 2006 Guaifenesin 10 ML Q4P PRN 03/06 0630 AC 03/11 PO 0629 Hydralazine HCl 20 MG BID 03/10 2100 AC 03/12 PO 2006 Insulin Aspart 0 AT BEDTIME 03/08 2100 AC 03/10 SC 2048 Insulin Aspart 0 TIDAC 03/08 0800 AC 03/12 SC 1304 Insulin Detemir 8 UNITS BID 03/09 0900 AC 03/12 SC 2000 Loperamide HCl 4 MG BID PRN 02/28 0415 AC PO Methylprednisolone 30 MG DAILY 03/13 0900 AC IV Methylprednisolone 40 MG DAILY 03/11 0900 DC 03/12 IV 0836 Metoprolol Tartrate 25 MG BID 02/28 1324 AC 03/12 PO 2007 Morphine Sulfate 2 MG ONCE ONE 03/12 1700 CAN IV 03/12 1701 Morphine Sulfate 2.5 MG Q2P PRN 03/12 1600 AC PO Morphine Sulfate 2.5 MG Q2 PRN 03/12 1130 DC 03/12 PO 03/12 1135 1126 Omeprazole 20 MG DAILY AC 03/10 0700 AC 03/12 PO 0622 Rivaroxaban 15 MG 1900 03/10 1900 AC 03/12 PO 2007 Sodium Chloride 2 SPRAY Q4P PRN 03/01 2100 AC CESAR Tiotropium [place] 1 PUF DAILY 03/01 0900 AC 03/12 INH 0838 Review of Systems Review of Systems: shortness of breath, dysasthetic pain, overall debility. 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 FATHER, ; Cause: Myocardial infarct. SISTER, ; Cause: Myocardial infarct. Psychosocial History Where Do You Live? Home Who Do You Live With? self Services at Home: None Primary Language: Cypriot Smoking Status: Former Smoker Karnofsky Performance Scale: 20 Living Will? unknown Power of Food Science Professor/HCP? unknown Functional Ability ADLs Independent: dressing, eating, toileting, bathing. Ambulation: independent IADLs Independent: shopping, housework, finances, food prep, telephone, transportation , medication admin. Employment History Employment: Retired Exam & Diagnostic Data Last 24 Hrs of Vitals/I&Os: Vital Signs Date Time Temp Pulse Resp B/P B/P Pulse O2 O2 Flow FiO2 Mean Ox Delivery Rate 03/12 2007 96 102/62 03/12 2006 96 102/62 03/12 1907 92 Nasal 55% Cannula 03/12 1730 72 98/58 03/12 1617 96 Nasal 60% Cannula 03/12 1600 Nasal 55% Cannula 03/12 1416 98.2 86 22 96/ 93 Part ReBreather 03/12 1400 92 Nasal 60% Cannula 03/12 1354 94 Nasal 55% Cannula 03/12 0837 104 110/60 03/12 0837 118 110/60 03/12 0810 89 Nasal 60% Cannula 03/12 0800 92 Nasal 55% Cannula 03/12 0800 92 Nasal 55% Cannula 03/12 0700 97.4 110 20 106/64 95 BIPAP 03/12 0600 95 BIPAP 50% 03/12 0528 96 93 03/12 0248 88 95 03/12 0025 94 95 03/12 0000 95 BIPAP 03/11 2320 97.4 91 18 100/60 94 Nasal Cannula 03/11 2215 80 93 03/11 2200 93 Nasal 55% Cannula 03/11 2147 103 110/60 03/11 2147 104 110/60 Intake & Output 03/12 1600 03/12 0800 03/12 0000 Intake Total 385 50 214 Output Total 700 850 400 Balance -315 -800 -186 Intake, IV 35 44 Intake, Oral 350 50 170 Output, Urine 700 850 400 Patient 172 lb Weight Weight Bed scale Measurement Method Physical Exam General Appearance: anxious, moderate distress Head: atraumatic Eyes: Bilateral: normal appearance. Ears, Nose, Throat: hearing grossly normal Neck: normal inspection Respiratory: decreased breath sounds Cardiovascular: edema Gastrointestinal: normal bowel sounds Neurologic/Psych: depressed affect Skin: intact Diagnostic Data Lab/Micro/Pathology Results: Laboratory Tests 03/12/185: CBC w Diff NO MAN DIFF REQ, RBC 2.61 L, MCV 85.8, MCH 27.8, MCHC 32.4 L, RDW 17.5 H, MPV 10.1, Gran % 98.4 H, Lymphocytes % 1.1 L, Monocytes % 0.5 L, Eosinophils % 0, Basophils % 0, Absolute Granulocytes 12.4 H, Absolute Lymphocytes 0.1 L, Absolute Monocytes 0.1, Absolute Eosinophils 0, Absolute Basophils 0 03/12/18 1600: Sodium Cancelled, Potassium Cancelled, Chloride Cancelled, Carbon Dioxide Cancelled, Anion Gap Cancelled, BUN Cancelled, Creatinine Cancelled, BUN/ Creatinine Ratio Cancelled 03/12/18 0656: Anion Gap 15, Estimated GFR 26 L, BUN/Creatinine Ratio 45.2 H, CBC w Diff MAN DIFF ORDERED, RBC 2.66 L, MCV 88.3, MCH 28.4, MCHC 32.1 L, RDW 17.5 H, MPV 10.2, Gran % 95.3 H, Lymphocytes % 2.5 L, Monocytes % 2.1, Eosinophils % 0.1, Basophils % 0, Absolute Granulocytes 13.7 H, Absolute Lymphocytes 0.4 L, Absolute Monocytes 0.3, Absolute Eosinophils 0, Absolute Basophils 0, Platelet Estimate VERIFIED BY SMEAR, Poikilocytosis 1+, Basophilic Stippling 1+, Anisocytosis 1+, Ovalocytes 1+ Assessment/Plan Assessment End Stage COPD, CHF Patient's Condition: serious Prognosis: poor Is Patient Decisional? yes Case Discussed With: patient, house staff, attending, specialist(s), nurse(s), case management Treatment Preferences: 1. Start oral morphine solution 2.5mg SL 2h PRN dyspnea. Titate dose/frequency as needed 2. Family meeting to clarify goals of care (will try to see Tues PM) 3. Optimize cardiac function to the best extent possible - but avoid interventions of high complexity, low yield 4. Pastoral care: support to patient, spouse 5. Case management: to explore options Consult Acknowledgment - Thank you for your consult request.
--- NOTE | 2018-03-12 11:45 | PN- Pulmonary ---
Subjective HPI/Critical Care Issues: pt seen and examined 55% fio2 high flow no significant improvement palliative care conslutation was obtained Objective Current Medications: Current Medications Sig/Eve Start time Last Medication Dose Route Stop Time Status Admin Albuterol Sulfate 3 ML EVERY 4 HRS/AWAKE 02/28 1200 AC 03/12 INH 0812 Atorvastatin Calcium 10 MG DAILY 02/28 1000 AC 03/12 PO 0838 Budesonide/ 2 PUF BID 03/01 0900 AC 03/12 Formoterol Fumarate INH 0838 Ceftazidime 2,000 MG Q12 03/11 2100 DC 03/12 IV 03/12 0901 0836 Ceftazidime 2,000 MG IQ8 03/11 1600 DC IV Ceftriaxone Sodium 1,000 MG DAILY@1300 03/11 1300 DC 03/11 IV 1327 Digoxin 0.125 MG Q48@1700 03/10 1700 AC 03/10 PO 1721 Diltiazem HCl 240 MG DAILY 03/03 0900 AC 03/12 PO 0837 Ferrous Sulfate 325 MG BID 02/28 1000 AC 03/12 PO 0837 Furosemide 80 MG BID 03/08 0900 AC 03/12 IV 0836 Guaifenesin 600 MG Q12 03/11 2100 AC 03/12 PO 0837 Guaifenesin 10 ML Q4P PRN 03/06 0630 AC 03/11 PO 0629 Hydralazine HCl 20 MG BID 03/10 2100 AC 03/12 PO 0837 Insulin Aspart 0 AT BEDTIME 03/08 2100 AC 03/10 SC 2048 Insulin Aspart 0 TIDAC 03/08 0800 AC 03/12 SC 0807 Insulin Detemir 8 UNITS BID 03/09 0900 AC 03/12 SC 0807 Loperamide HCl 4 MG BID PRN 02/28 0415 AC PO Methylprednisolone 40 MG DAILY 03/11 0900 AC 03/12 IV 0836 Metoprolol Tartrate 25 MG BID 02/28 1324 AC 03/12 PO 0837 Morphine Sulfate 2.5 MG Q2 PRN 03/12 1130 UNVr 03/12 PO 03/12 1135 1126 Omeprazole 20 MG DAILY AC 03/10 0700 AC 03/12 PO 0622 Rivaroxaban 15 MG 1900 03/10 1900 AC 03/11 PO 1829 Sodium Chloride 2 SPRAY Q4P PRN 03/01 2100 AC CESAR Tiotropium [place] 1 PUF DAILY 03/01 0900 AC 03/12 INH 0838 Vital Signs & I&O Last 24 Hrs of Vitals and I&O: Vital Signs Date Time Temp Pulse Resp B/P B/P Pulse O2 O2 Flow FiO2 Mean Ox Delivery Rate 03/12 0837 104 110/60 03/12 0837 118 110/60 03/12 0810 89 Nasal 60% Cannula 03/12 0700 97.4 110 20 106/64 95 BIPAP 03/12 0600 95 BIPAP 50% 03/12 0528 96 93 03/12 0248 88 95 03/12 0025 94 95 03/12 0000 95 BIPAP 03/11 2320 97.4 91 18 100/60 94 Nasal Cannula 03/11 2215 80 93 03/11 2200 93 Nasal 55% Cannula 03/11 2147 103 110/60 03/11 2147 104 110/60 03/11 1905 93 Nasal 55% Cannula 03/11 1600 92 Nasal 55% Cannula 03/11 1600 92 Nasal 55% Cannula 03/11 1600 92 Nasal 60% Cannula 03/11 1501 98.0 73 16 100/58 94 BIPAP 03/11 1250 95 Nasal 60% Cannula Intake & Output 03/12 1600 03/12 0800 03/12 0000 Intake Total 50 214 Output Total 850 400 Balance -800 -186 Intake, IV 44 Intake, Oral 50 170 Output, Urine 850 400 Patient 172 lb Weight Weight Bed scale Measurement Method Exam Other Physical Findings: awake alert high flow nasal cannula bilateral crackles bilateral edema Results Last 24 Hrs of Lab Results: Laboratory Tests 03/12/18 0656: Anion Gap 15, Estimated GFR 26 L, BUN/Creatinine Ratio 45.2 H, CBC w Diff MAN DIFF ORDERED, RBC 2.66 L, MCV 88.3, MCH 28.4, MCHC 32.1 L, RDW 17.5 H, MPV 10.2, Gran % 95.3 H, Lymphocytes % 2.5 L, Monocytes % 2.1, Eosinophils % 0.1, Basophils % 0, Absolute Granulocytes 13.7 H, Absolute Lymphocytes 0.4 L, Absolute Monocytes 0.3, Absolute Eosinophils 0, Absolute Basophils 0, Platelet Estimate VERIFIED BY SMEAR, Poikilocytosis 1+, Basophilic Stippling 1+, Anisocytosis 1+, Ovalocytes 1+ Impression/Plan Impression/Plan Impression/Plan: Impression 67 year old man CHF exacerbation along with acute COPD exacerbation no obvious evidence of pneumonia Plan -change solumedrol to 30mg iv daily -palliative care consultation is noted and appreciated -diuresis -ins/outs -daily weights -cardiology input -nocturnal bipap DVT prophylaxis at all times
--- NOTE | 2018-03-12 12:02 | PN- Housestaff ---
Chuck CR,[place] 03/12/18 1201: Subjective Follow-up For: 1. Acute on Chronic Respiratory Failure 2/2 COPD Exacerbation/CHF Exacerbation 2. History of A.fib on Xarelto and cardizem 3. History of AAA s/p recent endovascular repair 4. Anemia 5. contrast induced nephropathy Tele-Events Since Last Visit: afib 92-110, avg 95% pulse ox overnight Subjective: patient continues to have difficulty breathing. He is either on high flow oxygen or bipap. He has bilateral opacities with a lower lobe predominate. Review of Systems Constitutional: Reports: weakness. Cardiovascular: Reports: edema, peripheral edema. Respiratory: Reports: cough, short of breath. Gastrointestinal: Reports: no symptoms. Genitourinary: Reports: no symptoms. Musculoskeletal: Reports: no symptoms. Objective Last 24 Hrs of Vital Signs/I&O Vital Signs Date Time Temp Pulse Resp B/P B/P Pulse O2 O2 Flow FiO2 Mean Ox Delivery Rate 03/12 2007 96 102/62 03/12 2006 96 102/62 03/12 1907 92 Nasal 55% Cannula 03/12 1730 72 98/58 03/12 1617 96 Nasal 60% Cannula 03/12 1600 Nasal 55% Cannula 03/12 1416 98.2 86 22 / 93 Part ReBreather 03/12 1400 92 Nasal 60% Cannula 03/12 1354 94 Nasal 55% Cannula 03/12 0837 104 110/60 03/12 0837 118 110/60 03/12 0810 89 Nasal 60% Cannula 03/12 0800 92 Nasal 55% Cannula 03/12 0800 92 Nasal 55% Cannula 03/12 0700 97.4 110 20 106/64 95 BIPAP 03/12 0600 95 BIPAP 50% 03/12 0528 96 93 03/12 0248 88 95 03/12 0025 94 95 03/12 0000 95 BIPAP 03/11 2320 97.4 91 18 100/60 94 Nasal Cannula 03/11 2215 80 93 03/11 2200 93 Nasal 55% Cannula 03/11 2147 103 110/60 03/11 2147 104 110/60 Intake & Output 03/12 1600 03/12 0800 03/12 0000 Intake Total 385 50 214 Output Total 700 850 400 Balance -315 -800 -186 Intake, IV 35 44 Intake, Oral 350 50 170 Output, Urine 700 850 400 Patient 172 lb Weight Weight Bed scale Measurement Method Physical Exam General Appearance: Alert, Oriented X3, Cooperative, Mild Distress Skin: No Rashes, No Breakdown, No Significant Lesion Skin Temp/Moisture Exam: Warm/Dry HEENT: Atraumatic, PERRLA, EOMI, Mucous Membr. moist/pink Cardiovascular: Normal S1, Normal S2, No Murmurs Lungs: Clear to Auscultation, Normal Air Movement Abdomen: Normal Bowel Sounds, Soft, No Tenderness Neurological: Normal Speech Extremities: No Cyanosis, Normal Pulses, No Tenderness/Swelling Vascular: Normal Pulses, Pulses Symmetrical Current Medications: Current Medications Sig/Eve Start time Last Medication Dose Route Stop Time Status Admin Albuterol Sulfate 3 ML EVERY 4 HRS/AWAKE 02/28 1200 AC 03/12 INH 2029 Atorvastatin Calcium 10 MG DAILY 02/28 1000 AC 03/12 PO 0838 Budesonide/ 2 PUF BID 03/01 0900 AC 03/12 Formoterol Fumarate INH 2008 Ceftazidime 2,000 MG Q12 03/11 2100 DC 03/12 IV 03/12 0901 0836 Digoxin 0.125 MG Q48@1700 03/10 1700 AC 03/12 PO 1730 Diltiazem HCl 240 MG DAILY 03/03 0900 AC 03/12 PO 0837 Ferrous Sulfate 325 MG BID 02/28 1000 AC 03/12 PO 2006 Furosemide 80 MG BID 03/08 0900 AC 03/12 IV 2004 Guaifenesin 600 MG Q12 03/11 2100 AC 03/12 PO 2006 Guaifenesin 10 ML Q4P PRN 03/06 0630 AC 03/11 PO 0629 Hydralazine HCl 20 MG BID 03/10 2100 AC 03/12 PO 2006 Insulin Aspart 0 AT BEDTIME 03/08 2100 AC 03/10 SC 2048 Insulin Aspart 0 TIDAC 03/08 0800 AC 03/12 SC 1304 Insulin Detemir 8 UNITS BID 03/09 0900 AC 03/12 SC 2000 Loperamide HCl 4 MG BID PRN 02/28 0415 AC PO Methylprednisolone 30 MG DAILY 03/13 0900 AC IV Methylprednisolone 40 MG DAILY 03/11 0900 DC 03/12 IV 0836 Metoprolol Tartrate 25 MG BID 02/28 1324 AC 03/12 PO 2007 Morphine Sulfate 2 MG ONCE ONE 03/12 1700 CAN IV 03/12 1701 Morphine Sulfate 2.5 MG Q2P PRN 03/12 1600 AC PO Morphine Sulfate 2.5 MG Q2 PRN 03/12 1130 DC 03/12 PO 03/12 1135 1126 Omeprazole 20 MG DAILY AC 03/10 0700 AC 03/12 PO 0622 Rivaroxaban 15 MG 1900 03/10 1900 AC 03/12 PO 2006 Sodium Chloride 2 SPRAY Q4P PRN 03/01 2100 AC CESAR Tiotropium [place] 1 PUF DAILY 03/01 0900 AC 03/12 INH 0838 Last 24 Hrs of Lab/Sridhar Results Last 24 Hrs of Labs/Mics: Laboratory Tests 03/12/18 1615: CBC w Diff NO MAN DIFF REQ, RBC 2.61 L, MCV 85.8, MCH 27.8, MCHC 32.4 L, RDW 17.5 H, MPV 10.1, Gran % 98.4 H, Lymphocytes % 1.1 L, Monocytes % 0.5 L, Eosinophils % 0, Basophils % 0, Absolute Granulocytes 12.4 H, Absolute Lymphocytes 0.1 L, Absolute Monocytes 0.1, Absolute Eosinophils 0, Absolute Basophils 0 03/12/18 1600: Sodium Cancelled, Potassium Cancelled, Chloride Cancelled, Carbon Dioxide Cancelled, Anion Gap Cancelled, BUN Cancelled, Creatinine Cancelled, BUN/ Creatinine Ratio Cancelled 03/12/18 0656: Anion Gap 15, Estimated GFR 26 L, BUN/Creatinine Ratio 45.2 H, CBC w Diff MAN DIFF ORDERED, RBC 2.66 L, MCV 88.3, MCH 28.4, MCHC 32.1 L, RDW 17.5 H, MPV 10.2, Gran % 95.3 H, Lymphocytes % 2.5 L, Monocytes % 2.1, Eosinophils % 0.1, Basophils % 0, Absolute Granulocytes 13.7 H, Absolute Lymphocytes 0.4 L, Absolute Monocytes 0.3, Absolute Eosinophils 0, Absolute Basophils 0, Platelet Estimate VERIFIED BY SMEAR, Poikilocytosis 1+, Basophilic Stippling 1+, Anisocytosis 1+, Ovalocytes 1+ Assessment/Plan Assessment: 67-year-old male with a PMHx of end stage COPD on 4 L of oxygen at baseline at home, with BiPAP at night, HFrEF 30%, A. fib on Xarelto, GERD, TIA, NIDDM, HTN, HLD, AAA s/p endovascular repair now here for hypoxic and hypercarbic respiratory failure likely secondary to his COPD and systolic heart failure which has been complicated by acute kidney injury secondary to contrast-induced nephropathy and anemia with hemoglobin 7.0. Patient was moved to [facility] as his afib rates were controlled but then was moved back to [facility] for continuous pulse ox. Today, the patient continues to be short of breath. His Cr is 2.5 BUN still elevated. WBC decrease from 14.4 to 12.6. Patient has been diuresing about 800cc. His Hb is 7.5. He was on BIPAP overnight and now high flow O2 60% . Respiratory culture is growing GNRs. Plan SOB: Likely a mix of acute on chronic systolic CHF/ COPD exacerbation with new pneumonia. Pt has terminal COPD and he has systolic heart failure with EF 30-35. His respiratory status is still tenuous and he has increasing oxygen requirement today and has persistently required BIPAP. We have done a CXR yesterday which showed bilateral opacities with a lower lobe predominant disbributation that have slightly progressed when compared to 03/[address] chest 03/07/18 showed no evidence of pneumonia but worsening pulmonary edema. * Patient currently on high flow O2 nasal cannula and BIPAP, taper as tolerated * TRC/nebulizers and Symbicort and Spiriva * Follow up sputum culture for bug ID * Appreciate pulm recs * Continue IV Solu-Medrol 30 mg daily * Defer to cardiology for addition of Entresto/AICD when/if renal function resolves. * Hydralazine 20 mg twice a day to reduce afterload-patient has MR. * WBC count has decreased slightly but remains elevated - continue ceftaz * Repeat CXR today Contrast induced nephropathy: Pt recieved dye for CTA on first day of admission. His Cr has been rising since, and is now in decline. * Increased lasix to 80mg bid iv for volume overload. As per renal, the benefit outweighs the risk to the kidneys as patient is experiencing dyspnea. * Appreciate nephro recs * Will plan for 24hr urine protein creatinine ratio when Cr normalizes * Continue renal dialysis diet to keep Potassium low at 1000 mL fluid restriction * Cr today 2.5 Hyperkalemia: Likely 2/2 to his renal failure. * Con't k restricted diet * Potassium today is 4.7. * Con't Lasix in 80 BID A.fib: Follow on tele floor, trops negative. ekg on admission showed afib with rvr, extended qtc with resolution on repeat ekg and now normal heart rates on tele. * We have discontinued Xarelto secondary to kidney function and will not give Eliquis as no studies have been done to show that is safer kidneys with creatinine over 3. Anticoagulation has been held secondary to low hemoglobin. Today we will per cardio recommendations regarding restarting his Xarelto. 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 Patient currently has heart rates between 90 and 110 in afib We will continue to monitor him on telemetry. * Continue Lopressor 25 mg twice a day * Continue Xeralto in dose of 15mg * Continue digoxin 0.125 mg every other day per cardiology, if patient does not show improvement consider adding dobutamine drip 5 mcg/kg/manny For GERD, TIA, NIDDM, HTN, HLD * Continue PPI 40 iv daily patient is receiving high-dose steroids * Hold oral antihyperglycemic and increased low-dose sliding scale coverage to intermediate dose as patient is not adequately covered. Patient is on steroids and has blood sugars in the 400s so we will add a nighttime insulin scale as these blood sugars are found overnight. * Heart healthy diet and continue to monitor sugars. * Continue statin Anemia * Guaic was negative a few days back * Hb 8.1 yesterday and 7.8 this morning. Repeat CBC for transfusion at 4pm. * Persitently low Hb, in 2016 iron studies show iron deficiency anemia so we will continue him on iron and also guaic stools to determine cause for his anemia. consider epogen as cause may be renal in nature. * Guaiac all stools, last stool sample was 2 days ago and was negative. Disposition * We will need to discuss goals of care with the family as patient is not getting better * We have placed palliative consult with Dr. Paez * For now give 2.5mg mrophine SL q2h for breathing -Renal dialysis diet -DVT Ppx with ALPS -DNR Problem List: 1. COPD (chronic obstructive pulmonary disease) 2. CHF (congestive heart failure) 3. HTN (hypertension) 4. Acute respiratory failure with hypoxia 5. Contrast dye induced nephropathy 6. MADISON (acute kidney injury) 7. Atrial fibrillation with rapid ventricular response Pain Ratin Pain Location: na Pain Goal: Remain pain free Pain Plan: na Tomorrow's Labs & Rationales: cbc bep Sangeeta Garcia 03/12/18 1414: Attending MD Review Statement Attending Statement Attending MD Statement: examined this patient, discuss w/resident/PA/DITCH DIGGER, agreed w/resident/PA/DITCH DIGGER, discussed with family, reviewed EMR data (avail), discussed with nursing, discussed with case mgmt, reviewed images, amended to note Attending Assessment/Plan: 67 o/m with acute on chronic respiratroy failure multifactorial in nature and MADISON 2/2 contrast induced nephropathy is on iv lasix and iv steroids. Patient required NIPPV intermittently for respiratroy support. Patient appears anxious today. Tachypnea+, Spo2 92 on 55% oxygen. Presently he is on high flow oxygen with severe underlying COPD/CHF. Patient growing gram negative rods in sputum. He is afebrile, leukocytosis+. Empiric ceftazidime has been started D2. f/u cultures. Cont xarelto/statin, PPI, Insulin, dilatizem/metoprolol, TRCs, Spiriva/ symbicort. Add low dose morphine for symptoms management. Patient with negligible improvement, palliative appreciated. Arrange family meeting. DNR. Cardiology and pulmonary appreciated palliative input.
[2018-03-12 14:16] VITALS: BP 96/62
--- NOTE | 2018-03-12 16:01 | RADIOLOGY REPORT ---
EXAMINATION: XR PORTABLE CHEST CLINICAL INFORMATION: Increasing shortness of breath. Worsening opacity. Pneumonia versus CHF. COMPARISON: Multiple prior chest x-rays, most recent of which is dated 03/11/2018. TECHNIQUE: Portable AP semierect view of the chest was obtained. FINDINGS: EKG leads overlie the chest. The cardiomediastinal silhouette is enlarged. There are persistent bilateral diffusely increased reticular opacities seen with particular prominence in both lower lobes, unchanged compared to the prior exam. No pneumothorax is seen. Bony structures are unremarkable. IMPRESSION: No significant change in the multifocal bilateral airspace opacities is seen.
[2018-03-12 17:09] LABS: ABSOLUTE BASOPHIL COUNT 0 /CUMM (0.0-0.2); ABSOLUTE EOSINOPHIL COUNT 0 /CUMM (0.0-0.7); ABSOLUTE GRANULOCYTE CT 12.4 /CUMM (1.4-6.5); ABSOLUTE LYMPH COUNT 0.1 /CUMM (1.2-3.4); ABSOLUTE MONOCYTE COUNT 0.1 /CUMM (0.10-0.60); BASOPHIL % 0 % (0.0-2.0); EOSINOPHIL % 0 % (0-5); HEMATOCRIT 22.4 % (42-52); MEAN CORPUSCULAR HGB 27.8 PG (27.0-31.0); MEAN CORPUSCULAR HGB CONC 32.4 G/DL (33.0-37.0); MEAN CORPUSCULAR VOLUME 85.8 FL (80.0-94.0); MEAN PLATELET VOLUME 10.1 FL (7.4-10.4); PLATELET COUNT 157 /CUMM (130-400); RBC DISTRIBUTION WIDTH 17.5 % (11.5-14.5); RED BLOOD CELL CT 2.61 /CUMM (4.70-6.10); WHITE BLOOD CELL COUNT 12.6 /CUMM (4.8-10.8)
[2018-03-12 17:19] LABS: GRANULOCYTE % 98.4 % (42.2-75.2)
[2018-03-13 07:23] VITALS: BP 150/112
[2018-03-13 08:11] LABS: ABSOLUTE BASOPHIL COUNT 0 /CUMM (0.0-0.2); ABSOLUTE EOSINOPHIL COUNT 0 /CUMM (0.0-0.7); ABSOLUTE GRANULOCYTE CT 11.4 /CUMM (1.4-6.5); ABSOLUTE LYMPH COUNT 0.2 /CUMM (1.2-3.4); ABSOLUTE MONOCYTE COUNT 0.3 /CUMM (0.10-0.60); BASOPHIL % 0 % (0.0-2.0); EOSINOPHIL % 0 % (0-5); HEMATOCRIT 24.3 % (42-52); MEAN CORPUSCULAR HGB 28.3 PG (27.0-31.0); MEAN CORPUSCULAR HGB CONC 32.8 G/DL (33.0-37.0); MEAN CORPUSCULAR VOLUME 86.3 FL (80.0-94.0); MEAN PLATELET VOLUME 10.3 FL (7.4-10.4); PLATELET COUNT 154 /CUMM (130-400); RBC DISTRIBUTION WIDTH 17.1 % (11.5-14.5); RED BLOOD CELL CT 2.82 /CUMM (4.70-6.10); WHITE BLOOD CELL COUNT 11.9 /CUMM (4.8-10.8)
--- NOTE | 2018-03-13 08:36 | PN- Housestaff ---
Chuck CR,[place] 03/13/18 0836: Subjective Follow-up For: 1. Acute on Chronic Respiratory Failure 2/2 COPD Exacerbation/CHF Exacerbation 2. History of A.fib on Xarelto and cardizem 3. History of AAA s/p recent endovascular repair 4. Anemia 5. contrast induced nephropathy Tele-Events Since Last Visit: afib 93-106 pulse ox overnight 94% on bipap Subjective: patient continues to have difficulty breathing. He continues to be either on high flow oxygen or bipap. he finds the hospital's bipap machine to be too restrictive and uncomfortable and has been using his own brought to him by his . Review of Systems Constitutional: Reports: weakness. EENTM: Reports: no symptoms. Cardiovascular: Reports: edema, orthopena, peripheral edema. Respiratory: Reports: cough, orthopnea, short of breath. Gastrointestinal: Reports: no symptoms. Genitourinary: Reports: no symptoms. Musculoskeletal: Reports: no symptoms. Objective Last 24 Hrs of Vital Signs/I&O wnl Physical Exam General Appearance: Alert, Oriented X3, Cooperative, No Acute Distress Skin: No Rashes, No Breakdown, No Significant Lesion Skin Temp/Moisture Exam: Warm/Dry HEENT: Atraumatic, PERRLA, EOMI, Mucous Membr. moist/pink Cardiovascular: Regular Rate, Normal S1, Normal S2 Lungs: Clear to Auscultation Abdomen: Normal Bowel Sounds, Soft Neurological: Normal Speech Extremities: No Clubbing, No Cyanosis Assessment/Plan Assessment: 67-year-old male with a PMHx of end stage COPD on 4 L of oxygen at baseline at home, with BiPAP at night, HFrEF 30%, A. fib on Xarelto, GERD, TIA, NIDDM, HTN, HLD, AAA s/p endovascular repair now here for hypoxic and hypercarbic respiratory failure likely secondary to his COPD and systolic heart failure which has been complicated by acute kidney injury secondary to contrast-induced nephropathy and anemia with hemoglobin 7.0. Patient was moved to gen med as his afib rates were controlled but then was moved back to tele for continuous pulse ox. Today, the patient continues to be short of breath. His Cr is 2.5 BUN still elevated. WBC decrease from 14.4 to 12.6. Patient has been diuresing about 800cc. His Hb is 7.5. He was on BIPAP overnight and now high flow O2 60% . Respiratory culture is growing GNRs. Plan SOB: Likely a mix of acute on chronic systolic CHF/ COPD exacerbation with new pneumonia. Pt has terminal COPD and he has systolic heart failure with EF 30-35. His respiratory status is still tenuous and he has increasing oxygen requirement today and has persistently required BIPAP. We have done a CXR yesterday which showed bilateral opacities with a lower lobe predominant disbributation that have slightly progressed when compared to 03/[address] chest 03/07/18 showed no evidence of pneumonia but worsening pulmonary edema. * Patient currently on high flow O2 nasal cannula and BIPAP, taper as tolerated * TRC/nebulizers and Symbicort and Spiriva * Follow up sputum culture for bug ID * Appreciate pulm recs * Continue IV Solu-Medrol 30 mg daily * Defer to cardiology for addition of Entresto/AICD when/if renal function resolves. * Hydralazine 20 mg twice a day to reduce afterload-patient has MR. * WBC count has decreased slightly but remains elevated - continuing ceftaz Contrast induced nephropathy: Pt recieved dye for CTA on first day of admission. His Cr has been rising since, and is now in decline. * Increased lasix to 80mg bid iv for volume overload. As per renal, the benefit outweighs the risk to the kidneys as patient is experiencing dyspnea. * Appreciate nephro recs * Will plan for 24hr urine protein creatinine ratio when Cr normalizes * Continue renal dialysis diet to keep Potassium low at 1000 mL fluid restriction * Cr today 2.5 Hyperkalemia: Likely 2/2 to his renal failure. * Con't k restricted diet * Potassium today is 4.7. * Con't Lasix in 80 BID A.fib: Follow on tele floor, trops negative. ekg on admission showed afib with rvr, extended qtc with resolution on repeat ekg and now normal heart rates on tele. * We have discontinued Xarelto secondary to kidney function and will not give Eliquis as no studies have been done to show that is safer kidneys with creatinine over 3. Anticoagulation has been held secondary to low hemoglobin. Today we will per cardio recommendations regarding restarting his Xarelto. 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 Patient currently has heart rates between 90 and 110 in afib We will continue to monitor him on telemetry. * Continue Lopressor 25 mg twice a day * Continue Xeralto in dose of 15mg * Continue digoxin 0.125 mg every other day per cardiology, if patient does not show improvement consider adding dobutamine drip 5 mcg/kg/manny For GERD, TIA, NIDDM, HTN, HLD * Continue PPI 40 iv daily patient is receiving high-dose steroids * Hold oral antihyperglycemic and increased low-dose sliding scale coverage to intermediate dose as patient is not adequately covered. Patient is on steroids and has blood sugars in the 400s so we will add a nighttime insulin scale as these blood sugars are found overnight. * Heart healthy diet and continue to monitor sugars. * Continue statin Anemia * Guaic was negative a few days back * Hb 8.1 yesterday and 7.8 this morning. Repeat CBC for transfusion at 4pm. * Persitently low Hb, in 2016 iron studies show iron deficiency anemia so we will continue him on iron and also guaic stools to determine cause for his anemia. consider epogen as cause may be renal in nature. * Guaiac all stools, last stool sample was 2 days ago and was negative. Disposition * We will need to discuss goals of care with the family as patient is not getting better * We have placed palliative consult with Dr. Paez * For now give 2.5mg mrophine SL q2h for breathing -Renal dialysis diet -DVT Ppx with ALPS -DNR Problem List: 1. COPD (chronic obstructive pulmonary disease) 2. CHF (congestive heart failure) 3. HTN (hypertension) 4. Acute respiratory failure with hypoxia 5. Contrast dye induced nephropathy 6. MADISON (acute kidney injury) 7. Chronic anemia Pain Ratin Pain Location: na Pain Goal: Remain pain free Pain Plan: na Tomorrow's Labs & Rationales: cbc tonyp RadhaSangeeta 03/13/18 1137: Attending MD Review Statement Attending Statement Attending MD Statement: examined this patient, discuss w/resident/PA/MAINTAINER OPERATOR, agreed w/resident/PA/MAINTAINER OPERATOR, discussed with family, reviewed EMR data (avail), discussed with nursing, discussed with case mgmt, reviewed images, amended to note Attending Assessment/Plan: Patient appears anxious. Patient felt comfortable with dose of morphine yesterday. Patient is receving iv lasix, iv cefatzidime, iv steroids for his acute on chronic respiratroy failure complicated with COPD exacerbation and possible gram negative pneumonia with contrast induced nephropathy with new baseline kidney function with afib on xarelto and anemia from his kidney injury. Patient received 1 unit of PRBC yesterday. Can give epogen today. Pallaitive is consulted and anticipate family meeting for further goals of care. Cardiology and Pulmonary on board and appreicate palliative input considering overall medical illness.
[2018-03-13 08:46] LABS: GRANULOCYTE % 95.2 % (42.2-75.2)
[2018-03-13 09:13] VITALS: BP 108/62
--- NOTE | 2018-03-13 11:32 | PN- Cardiology ---
Subjective Subjective: The patient states he is feeling better today. He is coughing less. He states the morphine has been helping. He is on nasal oxygen at this time with saturations in the high 80s and low 90s. He had palliative care consultation yesterday which is being followed up with a family meeting today. Objective Vital Signs and I&Os Vital Signs Date Time Temp Pulse Resp B/P B/P Pulse O2 O2 Flow FiO2 Mean Ox Delivery Rate 03/13 913 97.4 98 28 108/62 89 Nasal 45% Cannula 03/13 0817 100 08/62 03/13 0816 100 108/60 03/13 0812 92 Nasal 50% Cannula 03/13 0800 93 Nasal 45% Cannula 03/13 0723 98.1 86 20 150/112 97 Room Air 03/13 0607 78 96 03/13 0600 95 BIPAP 50% 03/13 0254 89 94 03/13 0015 80 95 03/13 0000 BIPAP 50% 03/12 2248 90 98 03/12 2200 BIPAP 03/12 2150 96 Nasal 50% Cannula 03/12 2007 96 102/62 03/12 2006 96 102/62 03/12 1907 92 Nasal 55% Cannula 03/12 1730 72 98/58 03/12 1617 96 Nasal 60% Cannula 03/12 1600 Nasal 55% Cannula 03/12 1416 98.2 86 22 96/62 93 Part ReBreather 03/12 1400 92 Nasal 60% Cannula 03/12 1354 94 Nasal 55% Cannula Intake & Output 03/13 1600 03/13 0800 03/13 0000 03/12 1600 03/12 0800 03/12 0000 Intake Total 350 600 385 50 214 Output Total 750 750 700 850 400 Balance -400 -150 -315 -800 -186 Intake, Blood 350 100 Product Intake, IV 35 44 Intake, Oral 500 350 50 170 Number 0 Bowel Movements Output, Urine 750 750 700 850 400 Patient 173 lb 172 lb Weight Weight Bed scale Measurement Method Physical Exam: Chronically ill-appearing male currently in no significant distress Chest: diffuse rhonchi and some inspiratory and expiratory wheezing Heart irregular rhythm, soft heart sounds, no murmurs Extremities 2+ edema persists Current Medications: Current Medications Sig/Eve Start time Last Medication Dose Route Stop Time Status Admin Albuterol Sulfate 3 ML EVERY 4 HRS/AWAKE 02/28 1200 AC 03/13 INH 0757 Atorvastatin Calcium 10 MG DAILY 02/28 1000 AC 03/13 PO 0817 Budesonide/ 2 PUF BID 03/01 0900 AC 03/13 Formoterol Fumarate INH 0818 Digoxin 0.125 MG Q48@1700 03/10 1700 AC 03/12 PO 1730 Diltiazem HCl 240 MG DAILY 03/03 0900 AC 03/13 PO 0816 Ferrous Sulfate 325 MG BID 02/28 1000 AC 03/13 PO 0817 Furosemide 80 MG BID 03/08 09 AC 03/13 IV 0815 Guaifenesin 600 MG Q12 03/11 2100 AC 03/13 PO 0817 Guaifenesin 10 ML Q4P PRN 03/06 0630 AC 03/11 PO 0629 Hydralazine HCl 20 MG BID 03/10 2100 AC 03/13 PO 0816 Insulin Aspart 0 AT BEDTIME 03/08 2100 AC 03/12 SC 2208 Insulin Aspart 0 TIDAC 03/08 0800 AC 03/13 SC 0808 Insulin Detemir 8 UNITS BID 03/09 0900 AC 03/13 SC 0808 Loperamide HCl 4 MG BID PRN 02/28 0415 AC PO Methylprednisolone 30 MG DAILY 03/13 0900 AC 03/13 IV 0816 Methylprednisolone 40 MG DAILY 03/11 0900 DC 03/12 IV 0836 Metoprolol Tartrate 25 MG BID 02/28 1324 AC 03/13 PO 0817 Morphine Sulfate 2 MG ONCE ONE 03/12 1700 CAN IV 03/12 1701 Morphine Sulfate 2.5 MG Q2P PRN 03/12 1600 AC 03/13 PO 0750 Morphine Sulfate 2.5 MG Q2 PRN 03/12 1130 DC 03/12 PO 03/12 1135 1126 Omeprazole 20 MG DAILY AC 03/10 0700 AC 03/13 PO 0629 Rivaroxaban 15 MG 1900 03/10 1900 AC 03/12 PO 2007 Sodium Chloride 2 SPRAY Q4P PRN 03/01 2100 AC CESAR Tiotropium [place] 1 PUF DAILY 03/01 0900 AC 03/13 INH 0817 Results Last 48 Hrs of Labs/Mics: Laboratory Tests 03/13/18 0705: Anion Gap 13, Estimated GFR 26 L, BUN/Creatinine Ratio 41.2 H, CBC w Diff NO MAN DIFF REQ, RBC 2.82 L, MCV 86.3, MCH 28.3, MCHC 32.8 L, RDW 17.1 H, MPV 10.3, Gran % 95.2 H, Lymphocytes % 1.9 L, Monocytes % 2.9, Eosinophils % 0, Basophils % 0, Absolute Granulocytes 11.4 H, Absolute Lymphocytes 0.2 L, Absolute Monocytes 0.3, Absolute Eosinophils 0, Absolute Basophils 0 03/12/18 1615: CBC w Diff NO MAN DIFF REQ, RBC 2.61 L, MCV 85.8, MCH 27.8, MCHC 32.4 L, RDW 17.5 H, MPV 10.1, Gran % 98.4 H, Lymphocytes % 1.1 L, Monocytes % 0.5 L, Eosinophils % 0, Basophils % 0, Absolute Granulocytes 12.4 H, Absolute Lymphocytes 0.1 L, Absolute Monocytes 0.1, Absolute Eosinophils 0, Absolute Basophils 0 03/12/18 1600: Sodium Cancelled, Potassium Cancelled, Chloride Cancelled, Carbon Dioxide Cancelled, Anion Gap Cancelled, BUN Cancelled, Creatinine Cancelled, BUN/ Creatinine Ratio Cancelled 03/12/18 0656: Anion Gap 15, Estimated GFR 26 L, BUN/Creatinine Ratio 45.2 H, CBC w Diff MAN DIFF ORDERED, RBC 2.66 L, MCV 88.3, MCH 28.4, MCHC 32.1 L, RDW 17.5 H, MPV 10.2, Gran % 95.3 H, Lymphocytes % 2.5 L, Monocytes % 2.1, Eosinophils % 0.1, Basophils % 0, Absolute Granulocytes 13.7 H, Absolute Lymphocytes 0.4 L, Absolute Monocytes 0.3, Absolute Eosinophils 0, Absolute Basophils 0, Platelet Estimate VERIFIED BY SMEAR, Poikilocytosis 1+, Basophilic Stippling 1+, Anisocytosis 1+, Ovalocytes 1+ Recent Imaging Studies: PATIENT: COURTNEY MURCIA PRESENT AGE: 67 PATIENT ACCOUNT NO: [id number] : 49 LOCATION: 1NO ORDERING PHYSICIAN: Emily Morales MD SERVICE DATE: 03/12/18- EXAM TYPE: RAD - XRY-PORTABLE CHEST XRAY EXAMINATION: XR PORTABLE CHEST CLINICAL INFORMATION: Increasing shortness of breath. Worsening opacity. Pneumonia versus CHF. COMPARISON: Multiple prior chest x-rays, most recent of which is dated 03/11/2018. TECHNIQUE: Portable AP semierect view of the chest was obtained. FINDINGS: EKG leads overlie the chest. The cardiomediastinal silhouette is enlarged. There are persistent bilateral diffusely increased reticular opacities seen with particular prominence in both lower lobes, unchanged compared to the prior exam. No pneumothorax is seen. Bony structures are unremarkable. IMPRESSION: No significant change in the multifocal bilateral airspace opacities is seen. DICTATED BY: Consuelo Sena MD DATE/TIME DICTATED:03/12/181554 AUTO ELECTRICIAN:LINDY DATE/TIME TRANSCRIBED:03/12/181554 CONFIDENTIAL, DO NOT COPY WITHOUT APPROPRIATE AUTHORIZATION. <Electronically signed in Other Vendor System> SIGNED BY: Consuelo Sena MD. 1601 Assessment/Plan Assessment/Plan The patient feels a little bit better. However he is not making significant progress. His BUN and creatinine remain elevated. His oxygen requirements are still pretty high. His chest x-ray did not show any improvement. An appropriate palliative care consultation has taken place and a family meeting is pending. From a cardiac standpoint I would not change his regimen. He can be discontinued from telemetry monitoring at this time. Continue telemetry? No
--- NOTE | 2018-03-13 13:40 | PN- Pulmonary ---
Subjective HPI/Critical Care Issues: pt seen and examined down to 5L nc feeling better overall Objective Current Medications: Current Medications Sig/Eve Start time Last Medication Dose Route Stop Time Status Admin Albuterol Sulfate 3 ML EVERY 4 HRS/AWAKE 02/28 1200 AC 03/13 INH 1143 Atorvastatin Calcium 10 MG DAILY 02/28 1000 AC 03/13 PO 0817 Budesonide/ 2 PUF BID 03/01 09 AC 03/13 Formoterol Fumarate INH 0818 Ceftazidime 1,000 MG Q12H 03/13 1200 AC 03/13 IV 1316 Digoxin 0.125 MG Q48@1700 03/10 1700 AC 03/12 PO 1730 Diltiazem HCl 240 MG DAILY 03/03 0900 AC 03/13 PO 0816 Epoetin Jules 4,000 UNIT ONCE ONE 03/13 1215 DC 03/13 SC 03/13 1216 1316 Ferrous Sulfate 325 MG BID 02/28 1000 AC 03/13 PO 0817 Furosemide 80 MG BID 03/08 0900 AC 03/13 IV 0815 Guaifenesin 600 MG Q12 03/11 2100 AC 03/13 PO 0817 Guaifenesin 10 ML Q4P PRN 03/06 0630 AC 03/13 PO 1330 Hydralazine HCl 20 MG BID 03/10 2100 AC 03/13 PO 0816 Insulin Aspart 0 AT BEDTIME 03/08 2100 AC 03/12 SC 2208 Insulin Aspart 0 TIDAC 03/08 0800 AC 03/13 SC 1229 Insulin Detemir 8 UNITS BID 03/09 0900 AC 03/13 SC 0808 Loperamide HCl 4 MG BID PRN 02/28 0415 AC PO Methylprednisolone 30 MG DAILY 03/13 0900 AC 03/13 IV 0816 Metoprolol Tartrate 25 MG BID 02/28 1324 AC 03/13 PO 0817 Morphine Sulfate 2 MG ONCE ONE 03/12 1700 CAN IV 03/12 1701 Morphine Sulfate 2.5 MG Q2P PRN 03/12 1600 AC 03/13 PO 1329 Omeprazole 20 MG DAILY AC 03/10 0700 AC 03/13 PO 0629 Rivaroxaban 15 MG 1900 03/10 1900 AC 03/12 PO 2007 Sodium Chloride 2 SPRAY Q4P PRN 03/01 2100 AC CESAR Tiotropium [place] 1 PUF DAILY 03/01 0900 AC 03/13 INH 0817 Vital Signs & I&O Last 24 Hrs of Vitals and I&O: Vital Signs Date Time Temp Pulse Resp B/P B/P Pulse O2 O2 Flow FiO2 Mean Ox Delivery Rate 03/13 0913 97.4 98 28 108/62 89 Nasal 45% Cannula 03/13 0817 100 08/62 03/13 0816 100 108/60 03/13 0812 92 Nasal 50% Cannula 03/13 0800 93 Nasal 45% Cannula 03/13 0723 98.1 86 20 150/112 97 Room Air 03/13 0607 78 96 03/13 0600 95 BIPAP 50% 03/13 0254 89 94 03/13 0015 80 95 03/13 0000 BIPAP 50% 03/12 2248 90 98 03/12 2200 BIPAP 03/12 2150 96 Nasal 50% Cannula 03/12 2007 96 102/62 03/12 2006 96 102/62 03/12 1907 92 Nasal 55% Cannula 03/12 1730 72 98/58 03/12 1617 96 Nasal 60% Cannula 03/12 1600 Nasal 55% Cannula 03/12 1416 98.2 86 22 96/62 93 Part ReBreather 03/12 1400 92 Nasal 60% Cannula 03/12 1354 94 Nasal 55% Cannula Intake & Output 03/13 1600 03/13 0800 03/13 0000 Intake Total 350 600 Output Total 750 750 Balance -400 -150 Intake, Blood 350 100 Product Intake, Oral 500 Number 0 Bowel Movements Output, Urine 750 750 Patient 173 lb Weight Exam Other Physical Findings: gen awake and alert heent nasal cannula cvs s1, s2 lungs rare rhonchi improved abd soft ext 2-3+ edema Results Last 24 Hrs of Lab Results: Laboratory Tests 03/13/18 0705: Anion Gap 13, Estimated GFR 26 L, BUN/Creatinine Ratio 41.2 H, CBC w Diff NO MAN DIFF REQ, RBC 2.82 L, MCV 86.3, MCH 28.3, MCHC 32.8 L, RDW 17.1 H, MPV 10.3, Gran % 95.2 H, Lymphocytes % 1.9 L, Monocytes % 2.9, Eosinophils % 0, Basophils % 0, Absolute Granulocytes 11.4 H, Absolute Lymphocytes 0.2 L, Absolute Monocytes 0.3, Absolute Eosinophils 0, Absolute Basophils 0 03/12/18 1615: CBC w Diff NO MAN DIFF REQ, RBC 2.61 L, MCV 85.8, MCH 27.8, MCHC 32.4 L, RDW 17.5 H, MPV 10.1, Gran % 98.4 H, Lymphocytes % 1.1 L, Monocytes % 0.5 L, Eosinophils % 0, Basophils % 0, Absolute Granulocytes 12.4 H, Absolute Lymphocytes 0.1 L, Absolute Monocytes 0.1, Absolute Eosinophils 0, Absolute Basophils 0 03/12/18 1600: Sodium Cancelled, Potassium Cancelled, Chloride Cancelled, Carbon Dioxide Cancelled, Anion Gap Cancelled, BUN Cancelled, Creatinine Cancelled, BUN/ Creatinine Ratio Cancelled Impression/Plan Impression/Plan Impression/Plan: Impression 67 year old man * CHF exacerbation * COPD exacerbation * acute on chronic hypoxemic respiratory failure Plan -palliative meeting today -continue solumedrol at 30mg iv daily today and change to 40mg po in am prednisone -diuresis/ins/outs/cardilogy f/u -nocturnal bipap DVT prophylaxis at all times
[2018-03-13 14:12] VITALS: BP 104/60
[2018-03-13 20:49] LABS: ABSOLUTE BASOPHIL COUNT 0 /CUMM (0.0-0.2); ABSOLUTE EOSINOPHIL COUNT 0 /CUMM (0.0-0.7); ABSOLUTE GRANULOCYTE CT 11.9 /CUMM (1.4-6.5); ABSOLUTE LYMPH COUNT 0.1 /CUMM (1.2-3.4); ABSOLUTE MONOCYTE COUNT 0.1 /CUMM (0.10-0.60); BASOPHIL % 0 % (0.0-2.0); EOSINOPHIL % 0 % (0-5); HEMATOCRIT 24.9 % (42-52); MEAN CORPUSCULAR HGB 27.9 PG (27.0-31.0); MEAN CORPUSCULAR HGB CONC 32.2 G/DL (33.0-37.0); MEAN CORPUSCULAR VOLUME 86.9 FL (80.0-94.0); MEAN PLATELET VOLUME 10.2 FL (7.4-10.4); PLATELET COUNT 181 /CUMM (130-400); RED BLOOD CELL CT 2.87 /CUMM (4.70-6.10); WHITE BLOOD CELL COUNT 12.1 /CUMM (4.8-10.8)
[2018-03-13 20:51] LABS: GRANULOCYTE % 98.6 % (42.2-75.2)
--- NOTE | 2018-03-13 22:00 | PN- Palliative Care ---
Subjective Subjective: feels much improved since yesterday. Less dyspnea, anxiety. Now able to rest in bed. He is pleased with progress over the past 24h. A meeting was held with the patient and his today. We discussed goals which include to return home and to pursue home based rehabilitation. He does not wish to pursue SNF level rehabilitation. We also addressed his current advance directives which indicate no cardiac resuscitation, but that he at this time remains ambivalent about intubation should his pulmonary function deteriorate. He is going to reconsider this decision and we will address this ongoing. Regarding a plan to return home, he expresses understanding that further optimization in both his pulmonary and cardiac function is necessary. I have suggested this to be the focus of his care, along with attention to his overall symptoms. In particular, liberalization of his diet is desired and may have the positive result of better nutritional intake. If he is able to return home, I have suggested that he retain the services of a visiting nurse program which also specializes in palliative and hospice care so that should it be appropriate and desired to transition to comfort care, this could be accomplished in a seamless manner. Review of Systems: improved dyspnea. improved appetite Objective Last 24 Hrs of Vital Signs/I&O Vital Signs Date Time Temp Pulse Resp B/P B/P Pulse O2 O2 Flow FiO2 Mean Ox Delivery Rate 03/13 2042 99 118/72 03/13 2041 109 118/72 03/13 1600 89 Nasal 5.0L Cannula 03/13 1600 87 Nasal 5.0L Cannula 03/13 1412 98.5 83 20 104/60 Nasal Cannula 03/13 1400 88 Nasal 5.0L Cannula 03/13 0913 97.4 98 28 108/62 89 Nasal 45% Cannula 03/13 0817 100 08/62 03/13 0816 100 108/60 03/13 0812 92 Nasal 50% Cannula 03/13 0800 93 Nasal 45% Cannula 03/13 0723 98.1 86 20 150/112 97 Room Air 03/13 0607 78 96 03/13 0600 95 BIPAP 50% 03/13 0254 89 94 03/13 0015 80 95 03/13 0000 BIPAP 50% 03/12 2248 90 98 03/12 2200 BIPAP Intake & Output 03/13 1600 03/13 0800 03/13 0000 Intake Total 535 350 600 Output Total 650 750 750 Balance -115 -400 -150 Intake, Blood 350 100 Product Intake, IV 35 Intake, Oral 500 500 Number 0 Bowel Movements Output, Urine 650 750 750 Patient 173 lb Weight Physical Exam: elderly male, in bed, NAD awake, alert moves all 4. Current Medications Current Medications: Current Medications Sig/Eve Start time Last Medication Dose Route Stop Time Status Admin Albuterol Sulfate 3 ML EVERY 4 HRS/AWAKE 02/28 1200 AC 03/13 INH 2000 Atorvastatin Calcium 10 MG DAILY 02/28 1000 DC 03/13 PO 0817 Budesonide/ 2 PUF BID 03/01 09 AC 03/13 Formoterol Fumarate INH 204 Ceftazidime 1,000 MG Q12H 03/13 1200 AC 03/13 IV 1316 Digoxin 0.125 MG Q48@1700 03/10 1700 AC 03/12 PO 1730 Diltiazem HCl 240 MG DAILY 03/03 09 AC 03/13 PO 0816 Epoetin Jules 4,000 UNIT ONCE ONE 03/13 1215 DC 03/13 SC 03/13 1216 1316 Ferrous Sulfate 325 MG BID 02/28 1000 AC 03/13 PO 2033 Furosemide 80 MG BID 03/08 09 AC 03/13 IV 203 Guaifenesin 10 ML .STK-MED ONE 03/13 1328 DC PO 03/13 1329 Guaifenesin 10 ML .STK-MED ONE 03/13 0749 DC PO 03/13 0750 Guaifenesin 600 MG Q12 03/11 2100 AC 03/13 PO 203 Guaifenesin 10 ML Q4P PRN 03/06 0630 AC 03/13 PO 211 Hydralazine HCl 20 MG BID 03/10 2100 AC 03/13 PO 204 Insulin Aspart 0 AT BEDTIME 03/08 2100 AC 03/13 SC 210 Insulin Aspart 0 TIDAC 03/08 08 AC 03/13 SC 1648 Insulin Detemir 8 UNITS BID 03/09 09 AC 03/13 SC 210 Loperamide HCl 4 MG BID PRN 02/28 0415 AC PO Methylprednisolone 30 MG DAILY 03/13 0900 AC 03/13 IV 03/14 0600 0816 Metoprolol Tartrate 25 MG BID 02/28 1324 AC 03/13 PO 204 Morphine Sulfate 2.5 MG Q2P PRN 03/12 1600 AC 03/13 PO 1329 Omeprazole 20 MG DAILY AC 03/10 0700 AC 03/13 PO 0629 Rivaroxaban 15 MG 1900 03/10 1900 AC 03/13 PO 2033 Sodium Chloride 2 SPRAY Q4P PRN 03/01 2100 AC CESAR Tiotropium [place] 1 PUF DAILY 03/01 0900 AC 03/13 INH 0817 Diagnostic Data Lab/Micro/Pathology Results: Laboratory Tests 03/13/181922: CBC w Diff NO MAN DIFF REQ, RBC 2.87 L, MCV 86.9, MCH 27.9, MCHC 32.2 L, RDW 18.0 H, MPV 10.2, Gran % 98.6 H, Lymphocytes % 0.6 L, Monocytes % 0.8 L, Eosinophils % 0, Basophils % 0, Absolute Granulocytes 11.9 H, Absolute Lymphocytes 0.1 L, Absolute Monocytes 0.1, Absolute Eosinophils 0, Absolute Basophils 0 03/13/18704: Anion Gap 13, Estimated GFR 26 L, BUN/Creatinine Ratio 41.2 H, CBC w Diff NO MAN DIFF REQ, RBC 2.82 L, MCV 86.3, MCH 28.3, MCHC 32.8 L, RDW 17.1 H, MPV 10.3, Gran % 95.2 H, Lymphocytes % 1.9 L, Monocytes % 2.9, Eosinophils % 0, Basophils % 0, Absolute Granulocytes 11.4 H, Absolute Lymphocytes 0.2 L, Absolute Monocytes 0.3, Absolute Eosinophils 0, Absolute Basophils 0 Assessment/Plan Assessment end stage COPD, CHF - improved symptom control now w/ use of low dose morphine Patient's Condition: serious Prognosis: poor Is Patient Decisional? yes Case Discussed With: patient, family, house staff Goals of Care: rehabilitative, limited medical treatment Treatment Preferences: 1. Cont oral morphine solution 2.5mg SL 2h PRN dyspnea. Titate dose/frequency as needed 2. Optimize cardiac function to the best extent possible - but avoid interventions of high complexity, low yield 4. Pastoral care: support to patient, spouse 5. Case management: to explore options 6. Liberalize diet 7. D/C long-term prevention medications (atorvastatin, vitamins, et al.)
[2018-03-13 22:06] VITALS: BP 118/70
[2018-03-14 06:38] VITALS: BP 122/68
--- NOTE | 2018-03-14 07:37 | PN- Housestaff ---
Chuck CR,[place] 03/14/18 0737: Subjective Follow-up For: 1. Acute on Chronic Respiratory Failure 2/2 COPD Exacerbation/CHF Exacerbation 2. History of A.fib on Xarelto and cardizem 3. History of AAA s/p recent endovascular repair 4. Anemia 5. contrast induced nephropathy Tele-Events Since Last Visit: afib 82-103 Subjective: Patient feeling "great" today. His O2 sat continues to be reliant on either BIPAP or high flow oxygen, on 50% high flow this morning and used bipap all night. Yesterday LRC was positive for pseudomonas. Hb this morning found to be 7.2 down from 8 last night sp one unit. Review of Systems Constitutional: Reports: no symptoms. EENTM: Reports: no symptoms. Cardiovascular: Reports: no symptoms. Respiratory: Reports: short of breath. Gastrointestinal: Reports: no symptoms. Genitourinary: Reports: no symptoms. Musculoskeletal: Reports: no symptoms. Skin: Reports: no symptoms. Objective Last 24 Hrs of Vital Signs/I&O Vital Signs Date Time Temp Pulse Resp B/P B/P Pulse O2 O2 Flow FiO2 Mean Ox Delivery Rate 03/14 0830 112 122/68 03/14 0830 112 122/68 03/14 0820 93 Nasal 5.0L Cannula 03/14 0800 90 Nasal 5.0L Cannula 03/14 0638 97.7 101 22 122/68 97 Nasal Cannula 03/14 0616 79 99 03/14 0600 96 Nasal 50% Cannula 03/14 0308 88 97 03/14 0033 79 98 03/14 0000 96 BIPAP 50% 03/13 2251 67 95 03/13 2206 98.3 107 18 118/70 91 03/13 2200 94 Nasal 50% Cannula 03/13 2042 99 118/72 03/13 2041 109 118/72 03/13 1600 89 Nasal 5.0L Cannula 03/13 1600 87 Nasal 5.0L Cannula 03/13 1412 98.5 83 20 104/60 Nasal Cannula 03/13 1400 88 Nasal 5.0L Cannula Intake & Output 03/14 1600 03/14 0800 03/14 0000 Intake Total 240 450 Output Total 1050 1000 Balance -810 -550 Intake, Oral 240 450 Number 0 0 Bowel Movements Output, Urine 1050 1000 Patient 176 lb Weight Weight Bed scale Measurement Method Physical Exam General Appearance: Alert, Oriented X3, Cooperative, No Acute Distress Skin: No Rashes, No Breakdown, No Significant Lesion Skin Temp/Moisture Exam: Warm/Dry Sepsis Skin Exam (color): Normal for Ethnicity HEENT: Atraumatic, EOMI, Mucous Membr. moist/pink Cardiovascular: Normal S1, Normal S2, No Murmurs Lungs: Clear to Auscultation, Normal Air Movement Abdomen: Normal Bowel Sounds, Soft, No Tenderness Neurological: Normal Speech Extremities: No Clubbing, No Cyanosis, Normal Pulses, 3+ pitting edema bilaterally Vascular: Normal Pulses, Pulses Symmetrical Current Medications: Current Medications Sig/Eve Start time Last Medication Dose Route Stop Time Status Admin Albuterol Sulfate 3 ML EVERY 4 HRS/AWAKE 02/28 1200 AC 03/14 INH 0820 Atorvastatin Calcium 10 MG DAILY 02/28 1000 DC 03/13 PO 0817 Budesonide/ 2 PUF BID 03/01 09 DC 03/14 Formoterol Fumarate INH 0841 Ceftazidime 1,000 MG Q12H 03/13 1200 DC 03/14 IV 0016 Ciprofloxacin 500 MG BID 03/14 0900 AC 03/14 PO 03/18 0859 1106 Digoxin 0.125 MG Q48@1700 03/10 1700 AC 03/12 PO 1730 Diltiazem HCl 240 MG DAILY 03/03 09 AC 03/14 PO 0830 Epoetin Jules 4,000 UNIT ONCE ONE 03/13 1215 DC 03/13 SC 03/13 1216 1316 Ferrous Sulfate 325 MG BID 02/28 1000 AC 03/14 PO 0830 Furosemide 80 MG 7:30 AM, & 4:30 PM 03/14 1630 PO Furosemide 80 MG BID 03/08 09 DC 03/14 IV 0829 Guaifenesin 10 ML .STK-MED ONE 03/13 2114 DC PO 03/13 2115 Guaifenesin 10 ML .STK-MED ONE 03/13 1328 DC PO 03/13 1329 Guaifenesin 600 MG Q12 03/11 2100 AC 03/14 PO 0830 Guaifenesin 10 ML Q4P PRN 03/06 0630 AC 03/14 PO 0608 Hydralazine HCl 20 MG BID 03/10 2100 AC 03/14 PO 0830 Insulin Aspart 0 AT BEDTIME 03/08 2100 AC 03/13 SC 210 Insulin Aspart 0 TIDAC 03/08 0800 AC 03/14 SC 0805 Insulin Detemir 8 UNITS BID 03/09 0900 AC 03/14 SC 0805 Loperamide HCl 4 MG BID PRN 02/28 0415 AC PO Methylprednisolone 30 MG DAILY 03/13 0900 DC 03/13 IV 03/14 0600 0816 Metoprolol Tartrate 25 MG BID 02/28 1324 AC 03/14 PO 0830 Morphine Sulfate 2.5 MG Q2P PRN 03/12 1600 AC 03/14 PO 0608 Omeprazole 20 MG DAILY AC 03/10 0700 AC 03/14 PO 0607 Prednisone 40 MG DAILY 03/14 0900 AC 03/14 PO 03/15 0901 1106 Rivaroxaban 15 MG 1900 03/10 1900 AC 03/13 PO 2033 Sodium Chloride 2 SPRAY Q4P PRN 03/01 2100 AC CESAR Tiotropium [place] 1 PUF DAILY 03/01 09 AC 03/14 INH 0841 Last 24 Hrs of Lab/Sridhar Results Last 24 Hrs of Labs/Mics: Laboratory Tests 03/14/18 0655: Anion Gap 10, Estimated GFR 27 L, BUN/Creatinine Ratio 42.1 H, CBC w Diff NO MAN DIFF REQ, RBC 2.44 L, MCV 89.3, MCH 29.5, MCHC 33.1, RDW 17.2 H, MPV 9.3, Gran % 95.2 H, Lymphocytes % 1.7 L, Monocytes % 3.1, Eosinophils % 0, Basophils % 0, Absolute Granulocytes 11.1 H, Absolute Lymphocytes 0.2 L, Absolute Monocytes 0.4, Absolute Eosinophils 0, Absolute Basophils 0 03/13/181922: CBC w Diff NO MAN DIFF REQ, RBC 2.87 L, MCV 86.9, MCH 27.9, MCHC 32.2 L, RDW 18.0 H, MPV 10.2, Gran % 98.6 H, Lymphocytes % 0.6 L, Monocytes % 0.8 L, Eosinophils % 0, Basophils % 0, Absolute Granulocytes 11.9 H, Absolute Lymphocytes 0.1 L, Absolute Monocytes 0.1, Absolute Eosinophils 0, Absolute Basophils 0 Assessment/Plan Assessment: 67-year-old male with a PMHx of end stage COPD on 4 L of oxygen at baseline at home, with BiPAP at night, HFrEF 30%, A. fib on Xarelto, GERD, TIA, NIDDM, HTN, HLD, AAA s/p endovascular repair now here for hypoxic and hypercarbic respiratory failure likely secondary to his COPD and systolic heart failure which has been complicated by acute kidney injury secondary to contrast-induced nephropathy and anemia with hemoglobin 7.0. Patient was moved to [facility] as his afib rates were controlled but then was moved back to [facility] for continuous pulse ox. Today, the patient continues to be short of breath. His Cr is 2.5 BUN still elevated. WBC decrease from 14.4 to 12.6. Patient has been diuresing about 800cc. His Hb is 7.5. He was on BIPAP overnight and now high flow O2 60% . Respiratory culture is growing GNRs idenitified as PSEUDOMONAS. Ceftaz started last night. Plan SOB: Likely a mix of acute on chronic systolic CHF/ COPD exacerbation with new pneumonia. Pt has terminal COPD and he has systolic heart failure with EF 30-35. His respiratory status is still tenuous and he has increasing oxygen requirement today and has persistently required BIPAP. We have done a CXR yesterday which showed bilateral opacities with a lower lobe predominant disbributation that have slightly progressed when compared to 03/[address] chest 03/07/18 showed no evidence of pneumonia but worsening pulmonary edema. * Patient currently on high flow O2 nasal cannula and BIPAP, taper as tolerated * TRC/nebulizers and Symbicort and Spiriva * Follow up sputum culture for bug ID * Appreciate pulm recs * Continue IV Solu-Medrol 30 mg daily * Defer to cardiology for addition of Entresto/AICD when/if renal function resolves. * Hydralazine 20 mg twice a day to reduce afterload-patient has MR. * WBC count has decreased slightly but remains elevated - continue ceftaz * Repeat CXR today Contrast induced nephropathy: Pt recieved dye for CTA on first day of admission. His Cr has been rising since, and is now in decline. * Increased lasix to 80mg bid iv for volume overload. As per renal, the benefit outweighs the risk to the kidneys as patient is experiencing dyspnea. * Appreciate nephro recs * Will plan for 24hr urine protein creatinine ratio when Cr normalizes * Continue renal dialysis diet to keep Potassium low at 1000 mL fluid restriction * Cr today 2.5 Hyperkalemia: Likely 2/2 to his renal failure. * Con't k restricted diet * Potassium today is 4.7. * Con't Lasix in 80 BID A.fib: Follow on tele floor, trops negative. ekg on admission showed afib with rvr, extended qtc with resolution on repeat ekg and now normal heart rates on tele. * We have discontinued Xarelto secondary to kidney function and will not give Eliquis as no studies have been done to show that is safer kidneys with creatinine over 3. Anticoagulation has been held secondary to low hemoglobin. Today we will per cardio recommendations regarding restarting his Xarelto. * Patient was to be taking 480mg cardizem as per his health type technician but as he has only been taking 240mg daily and had good heart rates we continued him on 240 mg daily. Patient currently has heart rates between 90 and 110 in afib We will continue to monitor him on telemetry. * Continue Lopressor 25 mg twice a day * Continue Xeralto in dose of 15mg * Continue digoxin 0.125 mg every other day per cardiology, if patient does not show improvement consider adding dobutamine drip 5 mcg/kg/manny For GERD, TIA, NIDDM, HTN, HLD * Continue PPI 40 iv daily patient is receiving high-dose steroids * Hold oral antihyperglycemic and increased low-dose sliding scale coverage to intermediate dose as patient is not adequately covered. Patient is on steroids and has blood sugars in the 400s so we will add a nighttime insulin scale as these blood sugars are found overnight. * Heart healthy diet and continue to monitor sugars. * Continue statin Anemia * Guaic was negative a few days back * Hb 8.1 yesterday and 7.8 this morning. Repeat CBC for transfusion at 4pm. * Persitently low Hb, in 2016 iron studies show iron deficiency anemia so we will continue him on iron and also guaic stools to determine cause for his anemia. consider epogen as cause may be renal in nature. * Guaiac all stools, last stool sample was 2 days ago and was negative. Disposition * We will need to discuss goals of care with the family as patient is not getting better * We have placed palliative consult with Dr. Paez * For now give 2.5mg mrophine SL q2h for breathing -Renal dialysis diet -DVT Ppx with ALPS -DNR Problem List: 1. CHF (congestive heart failure) 2. COPD (chronic obstructive pulmonary disease) 3. HTN (hypertension) 4. Hyperlipidemia 5. Diabetes mellitus 6. Acute respiratory failure with hypoxia 7. MADISON (acute kidney injury) 8. Contrast dye induced nephropathy Pain Ratin Pain Location: na Pain Goal: Remain pain free Pain Plan: na Tomorrow's Labs & Rationales: cbc bep Sangeeta Garcia 03/14/18 1112: Attending MD Review Statement Attending Statement Attending MD Statement: examined this patient, discuss w/resident/PA/BEAUTY SALES ADVISOR, agreed w/resident/PA/BEAUTY SALES ADVISOR, discussed with family, reviewed EMR data (avail), discussed with nursing, discussed with case mgmt, reviewed images, amended to note Attending Assessment/Plan: Patient appears more calm and in high spirits. Patient is on oxygen supplementation 5l nc with spo2 89. Mild use of accessory muscles. Patient is receving iv lasix, iv cefatzidime, iv steroids for his acute on chronic respiratroy failure complicated with COPD exacerbation and possible gram negative pneumonia with contrast induced nephropathy with new baseline kidney function with afib on xarelto and anemia from his kidney injury. Patient received blood transfusion and epogen. Plan is to change to PO lasix and PO abx for pseudomonas in sputum. Pallaitive consulted and held family meeting with his . Family wants DNR but intubation. Cardiology and Pulmonary f/u, pallaitive appreciated and f/u. Overall prognosis poor.
[2018-03-14 08:49] LABS: ABSOLUTE BASOPHIL COUNT 0 /CUMM (0.0-0.2); ABSOLUTE EOSINOPHIL COUNT 0 /CUMM (0.0-0.7); ABSOLUTE GRANULOCYTE CT 11.1 /CUMM (1.4-6.5); ABSOLUTE LYMPH COUNT 0.2 /CUMM (1.2-3.4); ABSOLUTE MONOCYTE COUNT 0.4 /CUMM (0.10-0.60); BASOPHIL % 0 % (0.0-2.0); EOSINOPHIL % 0 % (0-5); MEAN CORPUSCULAR HGB 29.5 PG (27.0-31.0); MEAN CORPUSCULAR HGB CONC 33.1 G/DL (33.0-37.0); MEAN CORPUSCULAR VOLUME 89.3 FL (80.0-94.0); MEAN PLATELET VOLUME 9.3 FL (7.4-10.4); RBC DISTRIBUTION WIDTH 17.2 % (11.5-14.5); RED BLOOD CELL CT 2.44 /CUMM (4.70-6.10); WHITE BLOOD CELL COUNT 11.6 /CUMM (4.8-10.8)
[2018-03-14 09:30] LABS: HEMATOCRIT 21.8 % (42-52)
[2018-03-14 10:35] LABS: PLATELET COUNT 154 /CUMM (130-400)
[2018-03-14 10:36] LABS: GRANULOCYTE % 95.2 % (42.2-75.2)
--- NOTE | 2018-03-14 11:19 | PN- Cardiology ---
Subjective Subjective: The patient is feeling better. He seems more comfortable. He states he is breathing easier. Plans are being made for rehabilitation which the patient now seems to accept. He is now on oral steroids. His BUN and creatinine are very slowly improving. His I&O are negative. Objective Vital Signs and I&Os Vital Signs Date Time Temp Pulse Resp B/P B/P Pulse O2 O2 Flow FiO2 Mean Ox Delivery Rate 03/14 0830 112 122/68 03/14 0830 112 122/68 03/14 0820 93 Nasal 5.0L Cannula 03/14 08 90 Nasal 5.0L Cannula 03/14 0638 97.7 101 22 122/68 97 Nasal Cannula 03/14 0616 79 99 03/14 06 96 Nasal 50% Cannula 03/14 0308 88 97 03/14 0033 79 98 03/14 0000 96 BIPAP 50% 03/13 2251 67 95 03/13 2206 98.3 107 18 118/70 91 03/13 2200 94 Nasal 50% Cannula 03/13 204 99 118/72 03/13 204 109 118/72 03/13 1600 89 Nasal 5.0L Cannula 03/13 1600 87 Nasal 5.0L Cannula 03/13 1412 98.5 83 20 104/60 Nasal Cannula 03/13 1400 88 Nasal 5.0L Cannula Intake & Output 03/14 1600 03/14 0800 03/14 0000 03/13 1600 03/13 0800 03/13 0000 Intake Total 240 450 535 350 600 Output Total 1050 1000 650 750 750 Balance -810 -550 -115 -400 -150 Intake, Blood 350 100 Product Intake, IV 35 Intake, Oral 240 450 500 500 Number 0 0 0 Bowel Movements Output, Urine 1050 1000 650 750 750 Patient 176 lb 173 lb Weight Weight Bed scale Measurement Method Physical Exam: Chest reveals decreased breath sounds but less rhonchi and no wheezing today Heart irregular rhythm, soft heart sounds, no murmurs Extremities 1-2+ edema, a little less than previous Current Medications: Current Medications Sig/Eve Start time Last Medication Dose Route Stop Time Status Admin Albuterol Sulfate 3 ML EVERY 4 HRS/AWAKE 02/28 1200 AC 03/14 INH 0820 Atorvastatin Calcium 10 MG DAILY 02/28 1000 DC 03/13 PO 0817 Budesonide/ 2 PUF BID 03/01 0900 DC 03/14 Formoterol Fumarate INH 0841 Ceftazidime 1,000 MG Q12H 03/13 1200 DC 03/14 IV 0016 Ciprofloxacin 500 MG BID 03/14 0900 AC 03/14 PO 03/18 0859 1106 Digoxin 0.125 MG Q48@1700 03/10 1700 AC 03/12 PO 1730 Diltiazem HCl 240 MG DAILY 03/03 0900 AC 03/14 PO 0830 Epoetin Jules 4,000 UNIT ONCE ONE 03/13 1215 DC 03/13 SC 03/13 1216 1316 Ferrous Sulfate 325 MG BID 02/28 1000 AC 03/14 PO 0830 Furosemide 80 MG 7:30 AM, & 4:30 PM 03/14 1630 AC PO Furosemide 80 MG BID 03/08 0900 DC 03/14 IV 0829 Guaifenesin 10 ML .STK-MED ONE 03/13 211 DC PO 03/13 2115 Guaifenesin 10 ML .STK-MED ONE 03/13 1328 DC PO 03/13 1329 Guaifenesin 600 MG Q12 03/11 2100 AC 03/14 PO 0830 Guaifenesin 10 ML Q4P PRN 03/06 0630 AC 03/14 PO 0608 Hydralazine HCl 20 MG BID 03/10 2100 AC 03/14 PO 0830 Insulin Aspart 0 AT BEDTIME 03/08 2100 AC 03/13 NE 210 Insulin Aspart 0 TIDAC 03/08 0800 AC 03/14 SC 0805 Insulin Detemir 8 UNITS BID 03/09 0900 AC 03/14 SC 0805 Loperamide HCl 4 MG BID PRN 02/28 0415 AC PO Methylprednisolone 30 MG DAILY 03/13 0900 DC 03/13 IV 03/14 0600 0816 Metoprolol Tartrate 25 MG BID 02/28 1324 AC 03/14 PO 0830 Morphine Sulfate 2.5 MG Q2P PRN 03/12 1600 AC 03/14 PO 0608 Omeprazole 20 MG DAILY AC 03/10 0700 AC 03/14 PO 0607 Prednisone 40 MG DAILY 03/14 0900 AC 03/14 PO 03/15 0901 1106 Rivaroxaban 15 MG 1900 03/10 1900 AC 03/13 PO 2033 Sodium Chloride 2 SPRAY Q4P PRN 03/01 2100 AC CESAR Tiotropium [place] 1 PUF DAILY 03/01 0900 AC 03/14 INH 0841 Results Last 48 Hrs of Labs/Mics: Laboratory Tests 03/14/18 0655: Anion Gap 10, Estimated GFR 27 L, BUN/Creatinine Ratio 42.1 H, CBC w Diff NO MAN DIFF REQ, RBC 2.44 L, MCV 89.3, MCH 29.5, MCHC 33.1, RDW 17.2 H, MPV 9.3, Gran % 95.2 H, Lymphocytes % 1.7 L, Monocytes % 3.1, Eosinophils % 0, Basophils % 0, Absolute Granulocytes 11.1 H, Absolute Lymphocytes 0.2 L, Absolute Monocytes 0.4, Absolute Eosinophils 0, Absolute Basophils 0 03/13/18 1923: CBC w Diff NO MAN DIFF REQ, RBC 2.87 L, MCV 86.9, MCH 27.9, MCHC 32.2 L, RDW 18.0 H, MPV 10.2, Gran % 98.6 H, Lymphocytes % 0.6 L, Monocytes % 0.8 L, Eosinophils % 0, Basophils % 0, Absolute Granulocytes 11.9 H, Absolute Lymphocytes 0.1 L, Absolute Monocytes 0.1, Absolute Eosinophils 0, Absolute Basophils 0 03/13/18 0705: Anion Gap 13, Estimated GFR 26 L, BUN/Creatinine Ratio 41.2 H, CBC w Diff NO MAN DIFF REQ, RBC 2.82 L, MCV 86.3, MCH 28.3, MCHC 32.8 L, RDW 17.1 H, MPV 10.3, Gran % 95.2 H, Lymphocytes % 1.9 L, Monocytes % 2.9, Eosinophils % 0, Basophils % 0, Absolute Granulocytes 11.4 H, Absolute Lymphocytes 0.2 L, Absolute Monocytes 0.3, Absolute Eosinophils 0, Absolute Basophils 0 03/12/18 1615: CBC w Diff NO MAN DIFF REQ, RBC 2.61 L, MCV 85.8, MCH 27.8, MCHC 32.4 L, RDW 17.5 H, MPV 10.1, Gran % 98.4 H, Lymphocytes % 1.1 L, Monocytes % 0.5 L, Eosinophils % 0, Basophils % 0, Absolute Granulocytes 12.4 H, Absolute Lymphocytes 0.1 L, Absolute Monocytes 0.1, Absolute Eosinophils 0, Absolute Basophils 0 03/12/18 1600: Sodium Cancelled, Potassium Cancelled, Chloride Cancelled, Carbon Dioxide Cancelled, Anion Gap Cancelled, BUN Cancelled, Creatinine Cancelled, BUN/ Creatinine Ratio Cancelled Assessment/Plan Assessment/Plan The patient seems improved symptomatically. He is seeming to accept the need for rehabilitation at this time. He apparently is not accepting comfort measures or hospice just yet. I recommend changing his Lasix to oral in anticipation of being able to discharge him soon. I would continue the other medications the same. Of note is that his EKG did not show any significant changes, specifically QT interval was not prolonged. Continue telemetry? No
[2018-03-14 14:00] VITALS: BP 118/54
--- NOTE | 2018-03-14 14:20 | PN- Pulmonary ---
Subjective HPI/Critical Care Issues: Patient seen and examined this morning. He appears to be more comfortable he remains on 5 L nasal cannula and BiPAP overnight. Objective Current Medications: Current Medications Sig/Eve Start time Last Medication Dose Route Stop Time Status Admin Albuterol Sulfate 3 ML EVERY 4 HRS/AWAKE 02/28 1200 AC 03/14 INH 1130 Atorvastatin Calcium 10 MG DAILY 02/28 1000 DC 03/13 PO 0817 Budesonide/ 2 PUF BID 03/01 09 DC 03/14 Formoterol Fumarate INH 0841 Ceftazidime 1,000 MG Q12H 03/13 1200 DC 03/14 IV 0016 Ciprofloxacin 500 MG BID 03/14 0900 AC 03/14 PO 03/18 0859 1106 Digoxin 0.125 MG Q48@1700 03/10 1700 AC 03/12 PO 1730 Diltiazem HCl 240 MG DAILY 03/03 0900 AC 03/14 PO 0830 Ferrous Sulfate 325 MG BID 02/28 1000 AC 03/14 PO 0830 Furosemide 80 MG 7:30 AM, & 4:30 PM 03/14 1630 AC PO Furosemide 80 MG BID 03/08 0900 DC 03/14 IV 0829 Guaifenesin 10 ML .STK-MED ONE 03/14 0605 DC PO 03/14 0606 Guaifenesin 10 ML .STK-MED ONE 03/13 2114 DC PO 03/13 211 Guaifenesin 600 MG Q12 03/11 2100 AC 03/14 PO 0830 Guaifenesin 10 ML Q4P PRN 03/06 0630 AC 03/14 PO 0608 Hydralazine HCl 20 MG BID 03/10 2100 AC 03/14 PO 0830 Insulin Aspart 0 AT BEDTIME 03/08 2100 AC 03/13 SC 2102 Insulin Aspart 0 TIDAC 03/08 0800 AC 03/14 SC 1224 Insulin Detemir 8 UNITS BID 03/09 0900 AC 03/14 SC 0805 Loperamide HCl 4 MG BID PRN 02/28 0415 AC PO Methylprednisolone 30 MG DAILY 03/13 0900 DC 03/13 IV 03/14 0600 0816 Metoprolol Tartrate 25 MG BID 02/28 1324 AC 03/14 PO 0830 Morphine Sulfate 2.5 MG Q2P PRN 03/12 1600 AC 03/14 PO 0608 Omeprazole 20 MG DAILY AC 03/10 0700 AC 03/14 PO 0607 Prednisone 40 MG DAILY 03/14 09 AC 03/14 PO 03/15 0901 1106 Rivaroxaban 15 MG 1900 03/10 190 AC 03/13 PO 2033 Sodium Chloride 2 SPRAY Q4P PRN 03/01 2100 AC CESAR Tiotropium [place] 1 PUF DAILY 03/01 900 AC 03/14 INH 0841 Vital Signs & I&O Last 24 Hrs of Vitals and I&O: Vital Signs Date Time Temp Pulse Resp B/P B/P Pulse O2 O2 Flow FiO2 Mean Ox Delivery Rate 03/14 1234 Nasal 5.0L Cannula 03/14 1223 Nasal 5.0L Cannula 03/14 0830 112 122/68 03/14 0830 112 122/68 03/14 0820 93 Nasal 5.0L Cannula 03/14 08 90 Nasal 5.0L Cannula 03/14 0638 97.7 101 22 122/68 97 Nasal Cannula 03/14 0616 79 99 03/14 0600 96 Nasal 50% Cannula 03/14 0308 88 97 03/14 0033 79 98 03/14 0000 96 BIPAP 50% 03/13 2251 67 95 03/13 2206 98.3 107 18 118/70 91 03/13 2200 94 Nasal 50% Cannula 03/13 2042 99 118/72 03/13 204 109 118/72 03/13 1600 89 Nasal 5.0L Cannula 03/13 1600 87 Nasal 5.0L Cannula Intake & Output 03/14 1600 03/14 0800 03/14 0000 Intake Total 240 450 Output Total 1050 1000 Balance -810 -550 Intake, Oral 240 450 Number 0 0 Bowel Movements Output, Urine 1050 1000 Patient 176 lb Weight Weight Bed scale Measurement Method Exam Other Physical Findings: gen awake and alert heent nasal cannula cvs s1, s2 lungs rare rhonchi improved abd soft ext 2-3+ edema Results Last 24 Hrs of Lab Results: Laboratory Tests 03/14/18 0655: Anion Gap 10, Estimated GFR 27 L, BUN/Creatinine Ratio 42.1 H, CBC w Diff NO MAN DIFF REQ, RBC 2.44 L, MCV 89.3, MCH 29.5, MCHC 33.1, RDW 17.2 H, MPV 9.3, Gran % 95.2 H, Lymphocytes % 1.7 L, Monocytes % 3.1, Eosinophils % 0, Basophils % 0, Absolute Granulocytes 11.1 H, Absolute Lymphocytes 0.2 L, Absolute Monocytes 0.4, Absolute Eosinophils 0, Absolute Basophils 0 03/13/181922: CBC w Diff NO MAN DIFF REQ, RBC 2.87 L, MCV 86.9, MCH 27.9, MCHC 32.2 L, RDW 18.0 H, MPV 10.2, Gran % 98.6 H, Lymphocytes % 0.6 L, Monocytes % 0.8 L, Eosinophils % 0, Basophils % 0, Absolute Granulocytes 11.9 H, Absolute Lymphocytes 0.1 L, Absolute Monocytes 0.1, Absolute Eosinophils 0, Absolute Basophils 0 Impression/Plan Impression/Plan Impression/Plan: Impression 67 year old man * CHF exacerbation * COPD exacerbation * acute on chronic hypoxemic respiratory failure * anemia Plan -prednisone 40mg x 2, 30x2, 20x2, then 10mg without a taper -wishes to be DNR, however accepting intubation at this point -diuresis/ins/outs/cardilogy f/u -nocturnal bipap -monitor hemoglobin DVT prophylaxis at all times
[2018-03-14 17:30] LABS: ABSOLUTE BASOPHIL COUNT 0 /CUMM (0.0-0.2); ABSOLUTE EOSINOPHIL COUNT 0 /CUMM (0.0-0.7); ABSOLUTE GRANULOCYTE CT 14.8 /CUMM (1.4-6.5); ABSOLUTE LYMPH COUNT 0.1 /CUMM (1.2-3.4); ABSOLUTE MONOCYTE COUNT 0.2 /CUMM (0.10-0.60); BASOPHIL % 0 % (0.0-2.0); EOSINOPHIL % 0 % (0-5); HEMATOCRIT 24.7 % (42-52); MEAN CORPUSCULAR HGB 27.9 PG (27.0-31.0); MEAN CORPUSCULAR HGB CONC 32.2 G/DL (33.0-37.0); MEAN CORPUSCULAR VOLUME 86.7 FL (80.0-94.0); MEAN PLATELET VOLUME 9.5 FL (7.4-10.4); PLATELET COUNT 172 /CUMM (130-400); RBC DISTRIBUTION WIDTH 17.8 % (11.5-14.5); RED BLOOD CELL CT 2.85 /CUMM (4.70-6.10); WHITE BLOOD CELL COUNT 15.2 /CUMM (4.8-10.8)
[2018-03-14 18:04] LABS: GRANULOCYTE % 98.3 % (42.2-75.2)
[2018-03-14 22:32] VITALS: BP 142/70
[2018-03-15 06:49] VITALS: BP 108/80
[2018-03-15 08:09] LABS: ABSOLUTE BASOPHIL COUNT 0 /CUMM (0.0-0.2); ABSOLUTE EOSINOPHIL COUNT 0 /CUMM (0.0-0.7); ABSOLUTE GRANULOCYTE CT 8.3 /CUMM (1.4-6.5); ABSOLUTE LYMPH COUNT 0.3 /CUMM (1.2-3.4); ABSOLUTE MONOCYTE COUNT 0.3 /CUMM (0.10-0.60); BASOPHIL % 0.1 % (0.0-2.0); EOSINOPHIL % 0.1 % (0-5); MEAN CORPUSCULAR HGB 28.5 PG (27.0-31.0); MEAN CORPUSCULAR HGB CONC 32.2 G/DL (33.0-37.0); MEAN CORPUSCULAR VOLUME 88.6 FL (80.0-94.0); MEAN PLATELET VOLUME 9.6 FL (7.4-10.4); PLATELET COUNT 164 /CUMM (130-400); RBC DISTRIBUTION WIDTH 17.8 % (11.5-14.5); RED BLOOD CELL CT 2.58 /CUMM (4.70-6.10); WHITE BLOOD CELL COUNT 8.9 /CUMM (4.8-10.8)
--- NOTE | 2018-03-15 08:53 | PN- Housestaff ---
Chuck CR,[place] 03/15/18 0853: Subjective Follow-up For: 1. Acute on Chronic Respiratory Failure 2/2 COPD Exacerbation/CHF Exacerbation 2. History of A.fib on Xarelto and cardizem 3. History of AAA s/p recent endovascular repair 4. Anemia 5. contrast induced nephropathy Complaints: no complaints Tele-Events Since Last Visit: afib 83-107 Subjective: Patient seen and examined. He states that he is feeling good today. He does not note any change since yesterday. Overnight no events. The patient was on BiPAP overnight and was transitioned to 5 L nasal cannula was saturating 90% at the time of interview. Overnight the patient's WBC count increased from 11.6- 15.2, of note patient is on long-term steroids since his admission here over 2 weeks ago. Review of Systems Constitutional: Reports: no symptoms. Cardiovascular: Reports: edema. Respiratory: Reports: short of breath. Musculoskeletal: Reports: no symptoms. Skin: Reports: no symptoms. Objective Last 24 Hrs of Vital Signs/I&O Vital Signs Date Time Temp Pulse Resp B/P B/P Pulse O2 O2 Flow FiO2 Mean Ox Delivery Rate 03/15 1316 92 Nasal 5.0L Cannula 03/15 0849 80 20 100/60 03/15 0846 80 20 100/60 03/15 0649 97.6 86 26 108/80 96 BIPAP 50% 03/15 0608 87 97 03/15 0600 93 BIPAP 50% 03/15 0255 91 95 03/15 0010 89 98 03/14 2235 100 95 03/14 2232 98.3 107 18 142/70 94 Room Air 03/14 2200 94 Nasal 5.0L Cannula 03/14 2200 94 Nasal 5.0L Cannula 03/14 2158 114 142/70 03/14 2157 114 142/70 03/14 1715 96 118/54 03/14 1620 92 Nasal 5.0L Cannula 03/14 1600 93 Nasal 5.0L Cannula 03/14 1600 93 Nasal 5.0L Cannula 03/14 1400 97.6 78 20 118/54 95 Nasal 5.0L Cannula Intake & Output 03/15 1600 03/15 0800 03/15 0000 Intake Total 0 1200 Output Total 1000 700 Balance -1000 500 Intake, Oral 0 1200 Number 0 0 Bowel Movements Output, Urine 1000 700 Patient 166 lb Weight Physical Exam General Appearance: Alert, Oriented X3, Cooperative, No Acute Distress Skin: No Rashes, No Breakdown, No Significant Lesion Skin Temp/Moisture Exam: Warm/Dry Sepsis Skin Exam (color): Normal for Ethnicity Cardiovascular: Regular Rate, Normal S1, Normal S2, No Murmurs Lungs: Clear to Auscultation, Normal Air Movement Abdomen: Normal Bowel Sounds, Soft, No Tenderness Neurological: Normal Speech Extremities: No Clubbing, No Cyanosis Vascular: Normal Pulses, Pulses Symmetrical Sepsis Peripheral Pulse Location: Radial Sepsis Peripheral Pulse Exam: Normal Current Medications: Current Medications Sig/Eve Start time Last Medication Dose Route Stop Time Status Admin Albuterol Sulfate 3 ML EVERY 4 HRS/AWAKE 02/28 1200 AC 03/15 INH 1313 Ciprofloxacin 500 MG BID 03/14 09 AC 03/15 PO 03/18 0859 0849 Digoxin 0.125 MG Q48@1700 03/10 1700 AC 03/14 PO 1715 Diltiazem HCl 240 MG DAILY 03/03 09 AC 03/15 PO 0847 Ferrous Sulfate 325 MG BID 02/28 1000 AC 03/15 PO 0849 Furosemide 80 MG 7:30 AM, & 4:30 PM 03/14 1630 AC 03/15 PO 0842 Guaifenesin 10 ML .STK-MED ONE 03/14 2153 DC PO 03/14 2154 Guaifenesin 10 ML .STK-MED ONE 03/14 1727 DC PO 03/14 1728 Guaifenesin 600 MG Q12 03/11 2100 AC 03/15 PO 0848 Guaifenesin 10 ML Q4P PRN 03/06 0630 AC 03/15 PO 0843 Hydralazine HCl 20 MG BID 03/10 2100 AC 03/15 PO 0846 Insulin Aspart 0 AT BEDTIME 03/08 2100 AC 03/14 SC 2200 Insulin Aspart 0 TIDAC 03/08 0800 AC 03/15 SC 1133 Insulin Detemir 8 UNITS BID 03/09 0900 AC 03/15 SC 0837 Lactobacillus 1 CAP DAILY 03/15 09 AC 03/15 Acidophilus PO 1133 Loperamide HCl 4 MG BID PRN 02/28 0415 AC PO Metoprolol Tartrate 25 MG BID 02/28 1324 AC 03/15 PO 0849 Morphine Sulfate 2.5 MG Q2P PRN 03/12 1600 AC 03/15 PO 0844 Omeprazole 20 MG DAILY AC 03/10 0700 AC 03/15 PO 0731 Prednisone 40 MG DAILY 03/14 0900 DC 03/15 PO 03/15 0901 0845 Rivaroxaban 15 MG 1900 03/10 1900 AC 03/14 PO 1840 Sodium Chloride 2 SPRAY Q4P PRN 03/01 2100 AC CESAR Tiotropium [place] 1 PUF DAILY 03/01 0900 AC 03/15 INH 0835 Last 24 Hrs of Lab/Sridhar Results Last 24 Hrs of Labs/Mics: Laboratory Tests 03/15/18 0625: Anion Gap 11, Estimated GFR 28 L, BUN/Creatinine Ratio 40.4 H, CBC w Diff NO MAN DIFF REQ, RBC 2.58 L, MCV 88.6, MCH 28.5, MCHC 32.2 L, RDW 17.8 H, MPV 9.6, Gran % 92.5 H, Lymphocytes % 3.6 L, Monocytes % 3.7, Eosinophils % 0.1, Basophils % 0.1, Absolute Granulocytes 8.3 H, Absolute Lymphocytes 0.3 L, Absolute Monocytes 0.3, Absolute Eosinophils 0, Absolute Basophils 0 03/14/18 1633: CBC w Diff NO MAN DIFF REQ, RBC 2.85 L, MCV 86.7, MCH 27.9, MCHC 32.2 L, RDW 17.8 H, MPV 9.5, Gran % 98.3 H, Lymphocytes % 0.6 L, Monocytes % 1.1 L, Eosinophils % 0, Basophils % 0, Absolute Granulocytes 14.8 H, Absolute Lymphocytes 0.1 L, Absolute Monocytes 0.2, Absolute Eosinophils 0, Absolute Basophils 0 Assessment/Plan Assessment: 67-year-old male with a PMHx of end stage COPD on 4 L of oxygen at baseline at home, with BiPAP at night, HFrEF 30%, A. fib on Xarelto, GERD, TIA, NIDDM, HTN, HLD, AAA s/p endovascular repair now here for hypoxic and hypercarbic respiratory failure likely secondary to his COPD and systolic heart failure which has been complicated by acute kidney injury secondary to contrast-induced nephropathy and anemia with hemoglobin 7.0. Patient was moved to [facility] as his afib rates were controlled but then was moved back to [facility] for continuous pulse ox. The patient's respiratory status is at baseline it seems with his requirement overnight for BiPAP and for high flow oxygen during the day. His creatinine has improved to 2.3. He continues to be diuresed with 80 mg IV Lasix daily. His hemoglobin has been chronically low, guaiac positive in the past. Today 7.3 hemoglobin down from 7.9 last night. His WBC has increased from 11.6- 15.2. Respiratory culture is growing GNRs idenitified as PSEUDOMONAS. Ceftaz was ultimately switched to ciprofloxacin 500 mg twice a day by mouth. Plan SOB: Likely a mix of acute on chronic systolic CHF/ COPD exacerbation with new pneumonia. Pt has terminal COPD and he has systolic heart failure with EF 30-35. His respiratory status is still tenuous and he has increasing oxygen requirement today and has persistently required BIPAP. * Patient currently on high flow O2 nasal cannula and BIPAP, taper as tolerated * TRC/nebulizers and Symbicort and Spiriva * Appreciate pulm recs * Patient was switched from IV steroids to 40 by mouth prednisone. * Defer to cardiology for addition of Entresto/AICD when/if renal function resolves. * Hydralazine 20 mg twice a day to reduce afterload-patient has MR. Contrast induced nephropathy: Pt recieved dye for CTA on first day of admission. His Cr has been rising since, and is now in decline, today at 2.3. * For now continue Lasix PO to 80mg bid iv for volume overload. As per renal, the benefit outweighs the risk to the kidneys as patient is experiencing dyspnea already on BiPAP and high flow. * Appreciate nephro recs * We have taken patient off renal dialysis diet as a suggestion from palliative care to liberalize his diet as patient has end-stage lung disease and should be made more comfortable. We are continuing him on low-salt diet though for symptomatic relief of his pulmonary edema. Of note the patient continues to be DNR status. Hyperkalemia: Likely 2/2 to his renal failure. * Resolved * Con't Lasix in 80 BID A.fib: Follow on tele floor, trops negative. EKG on admission showed afib with rvr, extended qtc with resolution on repeat ekg and now normal heart rates on tele. * Continue patient on the Xarelto 15 mg * Patient was to be taking 480mg cardizem as per his balloon tester but as he has only been taking 240mg daily and had good heart rates we continued him on 240 mg daily. Patient currently has heart rates between 80 and 110 in afib We will continue to monitor him on telemetry. * Continue Lopressor 25 mg twice a day * Continue digoxin 0.125 mg every other day. For GERD, TIA, NIDDM, HTN, HLD * Continue PPI 40 iv daily patient is receiving high-dose steroids * Hold oral antihyperglycemic and increased low-dose sliding scale coverage to intermediate dose as patient is not adequately covered. Patient is on steroids and has blood sugars in the 400s so we will add a nighttime insulin scale as these blood sugars are found overnight. * Heart healthy diet and continue to monitor sugars. Anemia * Guaiac has been positive, current hemoglobin is 7.3, he has been transfused a total of 1 unit * Persitently low Hb, in 2016 iron studies show iron deficiency anemia so we will continue him on iron and also guaic stools to determine cause for his anemia. * We have given 1 dose of epogen. Will receive 3 doses per week. Disposition * Patient will be discharged likely to rehabilitation that can handle his oxygen requirement. Patient will later discuss with his family hospice. * For now give 2.5mg mrophine SL q2h for breathing -Renal dialysis diet -DVT Ppx with ALPS -DNR Problem List: 1. CHF (congestive heart failure) 2. HTN (hypertension) 3. COPD (chronic obstructive pulmonary disease) 4. Hyperlipidemia 5. Atrial fibrillation with rapid ventricular response 6. Contrast dye induced nephropathy 7. Acute respiratory failure with hypoxia Pain Ratin Pain Location: na Pain Goal: Remain pain free Pain Plan: prn Tomorrow's Labs & Rationales: bep cbc Sangeeta Garcia 03/15/18 1422: Attending MD Review Statement Attending Statement Attending MD Statement: examined this patient, discuss w/resident/PA/TANK WASHER, agreed w/resident/PA/TANK WASHER, discussed with family, reviewed EMR data (avail), discussed with nursing, discussed with case mgmt, reviewed images, amended to note Attending Assessment/Plan: Patient appears more calm and in high spirits. Patient is on oxygen supplementation 5l nc with spo2 92. Patient is receiving PO lasix, PO Cipro, PO steroids for his acute on chronic respiratroy failure complicated with COPD exacerbation and possible gram negative pneumonia with contrast induced nephropathy with new baseline kidney function with afib on xarelto and anemia from his kidney injury. Patient received blood transfusion and epogen. Pallaitive consulted and held family meeting with his . Family wants DNR but intubation. Declined hospice. Cardiology and Pulmonary f/u, pallaitive appreciated and f/u. Overall prognosis poor. He remians high risk of readmision. Patient wants to discharge to rehab facility. Await bed availability.
[2018-03-15 08:54] LABS: HEMATOCRIT 22.8 % (42-52)
[2018-03-15 08:57] LABS: GRANULOCYTE % 92.5 % (42.2-75.2)
--- NOTE | 2018-03-15 10:09 | PN- Pulmonary ---
Subjective HPI/Critical Care Issues: pt seen and examined pseudomonas in sputum - now on ciprofloxacin nocturnal bipap use Objective Current Medications: Current Medications Sig/Eve Start time Last Medication Dose Route Stop Time Status Admin Albuterol Sulfate 3 ML EVERY 4 HRS/AWAKE 02/28 1200 AC 03/14 INH 2000 Ciprofloxacin 500 MG BID 03/14 0900 AC 03/15 PO 03/18 0859 0849 Digoxin 0.125 MG Q48@1700 03/10 1700 AC 03/14 PO 1715 Diltiazem HCl 240 MG DAILY 03/03 09 AC 03/15 PO 0847 Ferrous Sulfate 325 MG BID 02/28 1000 AC 03/15 PO 0849 Furosemide 80 MG 7:30 AM, & 4:30 PM 03/14 1630 AC 03/15 PO 0842 Guaifenesin 10 ML .STK-MED ONE 03/14 2153 DC PO 03/14 215 Guaifenesin 10 ML .STK-MED ONE 03/14 1727 DC PO 03/14 1728 Guaifenesin 600 MG Q12 03/11 2100 AC 03/15 PO 0848 Guaifenesin 10 ML Q4P PRN 03/06 0630 AC 03/15 PO 0843 Hydralazine HCl 20 MG BID 03/10 2100 AC 03/15 PO 0846 Insulin Aspart 0 AT BEDTIME 03/08 2100 AC 03/14 SC 2200 Insulin Aspart 0 TIDAC 03/08 08 AC 03/15 SC 0836 Insulin Detemir 8 UNITS BID 03/09 09 AC 03/15 SC 0837 Lactobacillus 1 CAP DAILY 03/15 0900 AC Acidophilus PO Loperamide HCl 4 MG BID PRN 02/28 0415 PO Metoprolol Tartrate 25 MG BID 02/28 1324 AC 03/15 PO 0849 Morphine Sulfate 2.5 MG Q2P PRN 03/12 1600 AC 03/15 PO 0844 Omeprazole 20 MG DAILY AC 03/10 0700 AC 03/15 PO 0731 Prednisone 40 MG DAILY 03/14 0900 DC 03/15 PO 03/15 0901 0845 Rivaroxaban 15 MG 1900 03/10 1900 AC 03/14 PO 1840 Sodium Chloride 2 SPRAY Q4P PRN 03/01 2100 AC CESAR Tiotropium [place] 1 PUF DAILY 03/01 0900 AC 03/15 INH 0835 Vital Signs & I&O Last 24 Hrs of Vitals and I&O: Vital Signs Date Time Temp Pulse Resp B/P B/P Pulse O2 O2 Flow FiO2 Mean Ox Delivery Rate 03/15 0849 80 20 100/60 03/15 0846 80 20 100/60 03/15 0649 97.6 86 26 108/80 96 BIPAP 50% 03/15 0608 87 97 03/15 0600 93 BIPAP 50% 03/15 0255 91 95 03/15 0010 89 98 03/14 2235 100 95 03/14 2232 98.3 107 18 142/70 94 Room Air 03/14 2200 94 Nasal 5.0L Cannula 03/14 2200 94 Nasal 5.0L Cannula 03/14 2158 114 142/70 03/14 2157 114 142/70 03/14 1715 96 118/54 03/14 1620 92 Nasal 5.0L Cannula 03/14 1600 93 Nasal 5.0L Cannula 03/14 1600 93 Nasal 5.0L Cannula 03/14 1400 97.6 78 20 118/54 95 Nasal 5.0L Cannula 03/14 1234 Nasal 5.0L Cannula 03/14 1223 Nasal 5.0L Cannula Intake & Output 03/15 1600 03/15 0800 03/15 0000 Intake Total 0 1200 Output Total 1000 700 Balance -1000 500 Intake, Oral 0 1200 Number 0 0 Bowel Movements Output, Urine 1000 700 Patient 166 lb Weight Exam Other Physical Findings: gen awake and alert heent nasal cannula cvs s1, s2 lungs rare rhonchi, diminished bs at bases abd soft ext 2-3+ edema Results Last 24 Hrs of Lab Results: Laboratory Tests 03/15/18 0625: Anion Gap 11, Estimated GFR 28 L, BUN/Creatinine Ratio 40.4 H, CBC w Diff NO MAN DIFF REQ, RBC 2.58 L, MCV 88.6, MCH 28.5, MCHC 32.2 L, RDW 17.8 H, MPV 9.6, Gran % 92.5 H, Lymphocytes % 3.6 L, Monocytes % 3.7, Eosinophils % 0.1, Basophils % 0.1, Absolute Granulocytes 8.3 H, Absolute Lymphocytes 0.3 L, Absolute Monocytes 0.3, Absolute Eosinophils 0, Absolute Basophils 0 03/14/18 1633: CBC w Diff NO MAN DIFF REQ, RBC 2.85 L, MCV 86.7, MCH 27.9, MCHC 32.2 L, RDW 17.8 H, MPV 9.5, Gran % 98.3 H, Lymphocytes % 0.6 L, Monocytes % 1.1 L, Eosinophils % 0, Basophils % 0, Absolute Granulocytes 14.8 H, Absolute Lymphocytes 0.1 L, Absolute Monocytes 0.2, Absolute Eosinophils 0, Absolute Basophils 0 Impression/Plan Impression/Plan Impression/Plan: Impression 67 year old man * CHF exacerbation * COPD exacerbation * acute on chronic hypoxemic respiratory failure * anemia * heavy growth of pseudomonas in sputum Plan -prednisone taper as ordered -continue course of ciprofloxacin for pseudomonas - in the future he may remain colonized -wishes to be DNR, however accepting intubation at this point -diuresis/ins/outs/cardilogy f/u -nocturnal bipap -monitor hemoglobin DVT prophylaxis at all times
[2018-03-15 14:11] VITALS: BP 104/66
--- NOTE | 2018-03-15 14:37 | PN- Palliative Care Social Wrk ---
Social Work Assessment/Plan Social Work Assessment/Plan: Social Work Consult received via Palliative Care Team. This patient is a 67 year old man, admitted to the hospital on 02/27/18 with Congestive Heart Failure. EHR reviewed; case discussed with complex case manager. Patient seen by Dr. Paez of Palliative Care Team earlier this week. Aiden is not yet ready to stop aggressive treatment. I met with Aiden this afternoon. He was awake and alert; jovial and receptive to interview. Aiden was able to articulate to me that he has been able to consider information provided to him and is now, reluctantly in agreement with STR. He is concerned about location of facilty, as works in [place], and he is concerned about the toll travelling wit take on her. While I did not specifiacally query him about his diease prognosis, etc. He speaks of wishing to return home, and getting back to taking care of things around the house. Unclear if this is a realistic expectation or hope for patient, who was only in agreement with changing code status to DNR. Will be available to provide support to patient and family.
[2018-03-15 20:03] VITALS: BP 108/54
[2018-03-16 06:36] VITALS: BP 120/60
--- NOTE | 2018-03-16 07:36 | PN- Housestaff ---
Subjective Follow-up For: 1. Acute on Chronic Respiratory Failure 2/2 COPD Exacerbation/CHF Exacerbation 2. History of A.fib on Xarelto and cardizem 3. History of AAA s/p recent endovascular repair 4. Anemia 5. contrast induced nephropathy Complaints: no complaints Subjective: Patient seen and examined at bedside. He is on 5 L high flow oxygen. He denies shortness of breath, chest pain. Review of Systems Constitutional: Reports: no symptoms, see HPI. Objective Last 24 Hrs of Vital Signs/I&O Vital Signs Date Time Temp Pulse Resp B/P B/P Pulse O2 O2 Flow FiO2 Mean Ox Delivery Rate 03/16 1145 97.6 94 20 108/58 03/16 0847 94 108/58 03/16 0800 94 Nasal 4.0L Cannula 03/16 0800 94 Nasal 4.0L Cannula 03/16 0740 95 Nasal 5.0L Cannula 03/16 0636 97.6 86 20 120/60 92 Nasal 5.0L Cannula 03/16 0600 93 Nasal 5.0L Cannula 03/16 0348 67 92 03/16 0035 93 96 03/16 0000 BIPAP 03/15 2237 88 98 03/15 2200 95 Nasal 5.0L Cannula 03/15 2117 93 122/62 03/15 2003 97.8 83 19 108/54 96 Nasal 5.0L Cannula 03/15 2000 Nasal 5.0L Cannula 03/15 1625 93 Nasal 5.0L Cannula Intake & Output 03/16 1600 03/16 0800 03/16 0000 Intake Total 240 600 Output Total 800 425 Balance -560 175 Intake, Oral 240 600 Output, Urine 800 425 Patient 177 lb Weight Weight Bed scale Measurement Method Physical Exam General Appearance: Alert, Oriented X3, Cooperative, No Acute Distress Cardiovascular: Regular Rate, Normal S1, Normal S2, No Murmurs Lungs: Clear to Auscultation Abdomen: Soft, No Tenderness, No Hepatospenomegaly Neurological: Normal Speech, Strength at 5/5 X4 Ext, Normal Tone, Sensation Intact, Cranial Nerves 3-12 NL Extremities: No Edema Current Medications: Current Medications Sig/Eve Start time Last Medication Dose Route Stop Time Status Admin Albuterol Sulfate 3 ML EVERY 4 HRS/AWAKE 02/28 1200 DCD 03/16 INH 1152 Ciprofloxacin 500 MG BID 03/14 0900 DCD 03/16 PO 03/18 0859 0847 Digoxin 0.125 MG Q48@1700 03/10 1700 DCD 03/14 PO 1715 Diltiazem HCl 240 MG DAILY 03/03 0900 DCD 03/16 PO 0846 Ferrous Sulfate 325 MG BID 02/28 1000 DCD 03/16 PO 0847 Furosemide 80 MG 7:30 AM, & 4:30 PM 03/14 1630 DCD 03/16 PO 0846 Guaifenesin 10 ML .STK-MED ONE 03/15 1948 VT PO 03/15 194 Guaifenesin 600 MG Q12 03/11 2100 VTD 03/16 PO 0847 Guaifenesin 10 ML Q4P PRN 03/06 0630 DCD 03/16 PO 0947 Hydralazine HCl 20 MG BID 03/10 2100 VTD 03/16 PO 0846 Insulin Aspart 8 UNITS ONCE ONE 03/15 2345 VT 03/16 VT 03/15 2346 0006 Insulin Aspart 8 UNITS ONCE ONE 03/15 2245 VT 03/15 VT 03/15 2246 2254 Insulin Aspart 0 AT BEDTIME 03/08 2100 [facility] 03/15 [place] 2116 Insulin Aspart 0 TIDAC 03/08 08 [facility] 03/16 VT 1229 Insulin Detemir 8 UNITS AT BEDTIME 03/16 2100 [facility] Insulin Detemir 10 UNITS 0900 03/16 0900 [facility] 03/16 [place] 0953 Insulin Detemir 8 UNITS BID 03/09 0900 VT 03/15 VT 2116 Lactobacillus 1 CAP DAILY 03/15 0900 DCD 03/16 Acidophilus PO 0847 Loperamide HCl 4 MG BID PRN 02/28 0415 DCD PO Metoprolol Tartrate 25 MG BID 02/28 1324 DCD 03/16 PO 0847 Morphine Sulfate 2.5 MG Q2P PRN 03/12 1600 DCD 03/16 PO 0947 Omeprazole 20 MG DAILY AC 03/10 0700 DCD 03/16 PO 0530 Rivaroxaban 15 MG 1900 03/10 1900 DCD 03/15 PO 1958 Sodium Chloride 2 SPRAY Q4P PRN 03/01 2100 DCD CESAR Tiotropium [place] 1 PUF DAILY 03/01 0900 DCD 03/16 INH 0846 Last 24 Hrs of Lab/Sridhar Results Last 24 Hrs of Labs/Mics: Laboratory Tests 03/16/18 0730: Anion Gap 9, Estimated GFR 28 L, BUN/Creatinine Ratio 40.0 H, CBC w Diff NO MAN DIFF REQ, RBC 2.67 L, MCV 88.7, MCH 28.7, MCHC 32.4 L, RDW 17.3 H, MPV 9.1, Gran % 94.6 H, Lymphocytes % 2.5 L, Monocytes % 2.9, Eosinophils % 0, Basophils % 0, Absolute Granulocytes 8.9 H, Absolute Lymphocytes 0.2 L, Absolute Monocytes 0.3, Absolute Eosinophils 0, Absolute Basophils 0 Assessment/Plan Assessment: 67-year-old male with a PMHx of end stage COPD on 4 L of oxygen at baseline at home, with BiPAP at night, HFrEF 30%, A. fib on Xarelto, GERD, TIA, NIDDM, HTN, HLD, AAA s/p endovascular repair now here for hypoxic and hypercarbic respiratory failure likely secondary to his COPD and systolic heart failure which has been complicated by acute kidney injury secondary to contrast-induced nephropathy and anemia with hemoglobin 7.0. Patient was moved to [facility] as his afib rates were controlled but then was moved back to [facility] for continuous pulse ox. The patient's respiratory status is at baseline it seems with his requirement overnight for BiPAP and for high flow oxygen during the day. His creatinine has improved to 2.3. He continues to be diuresed with 80 mg IV Lasix daily. His hemoglobin has been chronically low, guaiac positive in the past. Today 7.3 hemoglobin down from 7.9 last night. His WBC has increased from 11.6- 15.2. Respiratory culture is growing GNRs idenitified as PSEUDOMONAS. Ceftaz was ultimately switched to ciprofloxacin 500 mg twice a day by mouth. Plan SOB: Secondary due to CHF/COPD. Patient is on high flow oxygen and nocturnal BiPAP. * TRC/nebulizers and Symbicort and Spiriva * Appreciate pulm recs * Patient was switched from IV steroids to 40 by mouth prednisone. * Defer to cardiology for addition of Entresto/AICD when/if renal function resolves. * Hydralazine 20 mg twice a day to reduce afterload-patient has MR. Contrast induced nephropathy: Pt recieved dye for CTA on first day of admission. His Cr has been rising since, and is now in decline, today at 2.3. * For now continue Lasix PO to 80mg bid iv for volume overload. As per renal, the benefit outweighs the risk to the kidneys as patient is experiencing dyspnea already on BiPAP and high flow. * Appreciate nephro recs * We have taken patient off renal dialysis diet as a suggestion from palliative care to liberalize his diet as patient has end-stage lung disease and should be made more comfortable. We are continuing him on low-salt diet though for symptomatic relief of his pulmonary edema. Of note the patient continues to be DNR status. Hyperkalemia: Likely 2/2 to his renal failure. * Resolved * Con't Lasix in 80 BID A.fib: Follow on tele floor, trops negative. EKG on admission showed afib with rvr, extended qtc with resolution on repeat ekg and now normal heart rates on tele. * Continue patient on the Xarelto 15 mg * Patient was to be taking 480mg cardizem as per his preboarder but as he has only been taking 240mg daily and had good heart rates we continued him on 240 mg daily. Patient currently has heart rates between 80 and 110 in afib We will continue to monitor him on telemetry. * Continue Lopressor 25 mg twice a day * Continue digoxin 0.125 mg every other day. For GERD, TIA, NIDDM, HTN, HLD * Continue PPI 40 iv daily patient is receiving high-dose steroids * Hold oral antihyperglycemic and increased low-dose sliding scale coverage to intermediate dose as patient is not adequately covered. Patient is on steroids and has blood sugars in the 400s so we will add a nighttime insulin scale as these blood sugars are found overnight. * Heart healthy diet and continue to monitor sugars. Anemia * Guaiac has been positive, current hemoglobin is 7.3, he has been transfused a total of 1 unit * Persitently low Hb, in 2016 iron studies show iron deficiency anemia so we will continue him on iron and also guaic stools to determine cause for his anemia. * We have given 1 dose of epogen. Will receive 3 doses per week. Disposition * Patient will be discharged likely to rehabilitation that can handle his oxygen requirement. Patient will later discuss with his family hospice. * For now give 2.5mg mrophine SL q2h for breathing -Renal dialysis diet Problem List: 1. COPD (chronic obstructive pulmonary disease) 2. Acute hypercapnic respiratory failure 3. CHF (congestive heart failure) Pain Ratin Pain Location: none Pain Goal: Remain pain free Pain Plan: tylenol Tomorrow's Labs & Rationales: none
--- NOTE | 2018-03-16 08:15 | Patient Discharge Instructions ---
Discharge Instructions General Discharge Information You were seen/treated for: CHF You had these procedures: DIURESIS NIPPV Watch for these problems: 1. FEVER 2. SHORTNESS OF BREATH 3. NAUSEA/VOMITING Special Instructions: 1. Please follow up with your pcp in one week 2. please follow up with your hog room supervisor in one week 3. please follow up with your crate builder in one week 4. Continue your medication regimen as prescribed 5. If you feel profoundly short of breath or otherwise unwell then return to ED immediately Diet Continue normal diet: No Recommended Diet: regular diet with salt restriction Activity Full Activity/No Limits: No Activity Self Limited: Yes Acute Coronary Syndrome Inclusion Criteria At DC or during hospital stay patient has or had the following: ACS DIAGNOSIS No Discharge Core Measures Meds if any: Prescribed or Continued at Discharge Meds if any: NOT Prescribed or Continued at Discharge Congestive Heart Failure Inclusion Criteria At DC or during hospital stay patient has or had the following: CHF DIAGNOSIS Yes Discharge Core Measures Meds if any: Prescribed or Continued at Discharge Meds if any: NOT Prescribed or Continued at Discharge Cerebrovascular accident Inclusion Criteria At DC or during hospital stay patient has or had the following: CVA/TIA Diagnosis No Discharge Core Measures Meds if any: Prescribed or Continued at Discharge Meds if any: NOT Prescribed or Continued at Discharge Venous thromboembolism Inclusion Criteria VTE Diagnosis No VTE Type NONE VTE Confirmed by (Test) NONE Discharge Core Measures - Per Current guidelines, there needs to be overlap - treatment for the first 5 days of Warfarin therapy. - If discharged on Warfarin prior to 5 days of - overlap therapy, the patient will need to be - assessed for post discharge needs including - *Post discharge parental anticoagulation - *Warfarin and/or parental anticoagulation education - *Follow up date to check INR post discharge At least 5 days overlap therapy as Inpatient No Meds if any: Prescribed or Continued at Discharge Note: Overlap Therapy is Warfarin and Anticoagulant Meds if any: NOT Prescribed or Continued at Discharge
[2018-03-16 08:18] LABS: ABSOLUTE BASOPHIL COUNT 0 /CUMM (0.0-0.2); ABSOLUTE EOSINOPHIL COUNT 0 /CUMM (0.0-0.7); ABSOLUTE GRANULOCYTE CT 8.9 /CUMM (1.4-6.5); ABSOLUTE LYMPH COUNT 0.2 /CUMM (1.2-3.4); ABSOLUTE MONOCYTE COUNT 0.3 /CUMM (0.10-0.60); BASOPHIL % 0 % (0.0-2.0); EOSINOPHIL % 0 % (0-5); GRANULOCYTE % 94.6 % (42.2-75.2); HEMATOCRIT 23.7 % (42-52); MEAN CORPUSCULAR HGB 28.7 PG (27.0-31.0); MEAN CORPUSCULAR HGB CONC 32.4 G/DL (33.0-37.0); MEAN CORPUSCULAR VOLUME 88.7 FL (80.0-94.0); MEAN PLATELET VOLUME 9.1 FL (7.4-10.4); PLATELET COUNT 178 /CUMM (130-400); RBC DISTRIBUTION WIDTH 17.3 % (11.5-14.5); RED BLOOD CELL CT 2.67 /CUMM (4.70-6.10); WHITE BLOOD CELL COUNT 9.4 /CUMM (4.8-10.8)
--- NOTE | 2018-03-16 09:28 | PN- Cardiology ---
Subjective Subjective: Delayed note for visit on 03/15. No overnight events. Patient is significantly better than at the beginning of the week. Has continued having negative fluid balance daily ~1L, while maintaining creatinine around 2.3. No particular complaints. Expresses breathing more comfortably. Objective Vital Signs and I&Os Vital Signs Date Time Temp Pulse Resp B/P B/P Pulse O2 O2 Flow FiO2 Mean Ox Delivery Rate 03/16 0847 94 108/58 03/16 0740 95 Nasal 5.0L Cannula 03/16 0636 97.6 86 20 120/60 92 Nasal 5.0L Cannula 03/16 0600 93 Nasal 5.0L Cannula 03/16 0348 67 92 03/16 0035 93 96 03/16 0000 BIPAP 03/15 2237 88 98 03/15 2200 95 Nasal 5.0L Cannula 03/15 2117 93 122/62 03/15 2003 97.8 83 19 108/54 96 Nasal 5.0L Cannula 03/15 2000 Nasal 5.0L Cannula 03/15 1625 93 Nasal 5.0L Cannula 03/15 1411 97.6 88 20 104/66 91 Nasal 5.0L Cannula 03/15 1400 92 Nasal 5.0L Cannula 03/15 1316 92 Nasal 5.0L Cannula Intake & Output 03/16 1600 03/16 0800 03/16 0000 03/15 1600 03/15 0800 03/15 0000 Intake Total 240 600 0 1200 Output Total 800 972 654 3915 700 Balance -560 175 -550 -1000 500 Intake, Oral 240 600 0 1200 Number 0 0 Bowel Movements Output, Urine 800 079 754 8547 700 Patient 177 lb 166 lb Weight Weight Bed scale Measurement Method Physical Exam: General Appearance: Alert, Oriented X3, Cooperative, No Acute Distress Skin Temp/Moisture Exam: Warm/Dry Cardiovascular: irregular rate, No Murmurs audible Lungs: Clear to Auscultation, Normal Air Movement Abdomen: Normal Bowel Sounds, Soft, No Tenderness Extremities: Edema ad mid tibia bilaterally. Current Medications: Current Medications Sig/Eve Start time Last Medication Dose Route Stop Time Status Admin Albuterol Sulfate 3 ML EVERY 4 HRS/AWAKE 02/28 1200 AC 03/16 INH 0741 Ciprofloxacin 500 MG BID 03/14 0900 AC 03/16 PO 03/18 0859 0847 Digoxin 0.125 MG Q48@1700 03/10 1700 AC 03/14 PO 1715 Diltiazem HCl 240 MG DAILY 03/03 0900 AC 03/16 PO 0846 Ferrous Sulfate 325 MG BID 02/28 1000 AC 03/16 PO 0847 Furosemide 80 MG 7:30 AM, & 4:30 PM 03/14 1630 AC 03/16 PO 0846 Guaifenesin 10 ML .STK-MED ONE 03/15 194 DC PO 03/15 1949 Guaifenesin 600 MG Q12 03/11 2100 AC 03/16 PO 0847 Guaifenesin 10 ML Q4P PRN 03/06 0630 AC 03/15 PO 1953 Hydralazine HCl 20 MG BID 03/10 2100 AC 03/16 PO 0846 Insulin Aspart 8 UNITS ONCE ONE 03/15 2345 DC 03/16 MA 03/15 2346 0006 Insulin Aspart 8 UNITS ONCE ONE 03/15 2245 DC 03/15 MA 03/15 224 2254 Insulin Aspart 0 AT BEDTIME 03/08 2100 AC 03/15 MA 211 Insulin Aspart 0 TIDAC 03/08 0800 AC 03/15 MA 1716 Insulin Detemir 8 UNITS AT BEDTIME 03/16 2100 AC SC Insulin Detemir 10 UNITS 0900 03/16 0900 AC SC Insulin Detemir 8 UNITS BID 03/09 0900 DC 03/15 MA 2116 Lactobacillus 1 CAP DAILY 03/15 0900 AC 03/16 Acidophilus PO 0847 Loperamide HCl 4 MG BID PRN 02/28 0415 AC PO Metoprolol Tartrate 25 MG BID 02/28 1324 AC 03/16 PO 0847 Morphine Sulfate 2.5 MG Q2P PRN 03/12 1600 AC 03/15 PO 1953 Omeprazole 20 MG DAILY AC 03/10 0700 AC 03/16 PO 0530 Rivaroxaban 15 MG 1900 03/10 1900 AC 03/15 PO 1958 Sodium Chloride 2 SPRAY Q4P PRN 03/01 2100 AC CESAR Tiotropium [place] 1 PUF DAILY 03/01 0900 AC 03/16 INH 0846 Results Last 48 Hrs of Labs/Mics: Laboratory Tests 03/16/18 0730: Anion Gap 9, Estimated GFR 28 L, BUN/Creatinine Ratio 40.0 H, CBC w Diff Pending, WBC Pending, RBC Pending, Hgb Pending, Hct Pending, MCV Pending, MCH Pending, MCHC Pending, RDW Pending, Plt Count Pending, MPV Pending 03/15/18 0625: Anion Gap 11, Estimated GFR 28 L, BUN/Creatinine Ratio 40.4 H, CBC w Diff NO MAN DIFF REQ, RBC 2.58 L, MCV 88.6, MCH 28.5, MCHC 32.2 L, RDW 17.8 H, MPV 9.6, Gran % 92.5 H, Lymphocytes % 3.6 L, Monocytes % 3.7, Eosinophils % 0.1, Basophils % 0.1, Absolute Granulocytes 8.3 H, Absolute Lymphocytes 0.3 L, Absolute Monocytes 0.3, Absolute Eosinophils 0, Absolute Basophils 0 03/14/18 1633: CBC w Diff NO MAN DIFF REQ, RBC 2.85 L, MCV 86.7, MCH 27.9, MCHC 32.2 L, RDW 17.8 H, MPV 9.5, Gran % 98.3 H, Lymphocytes % 0.6 L, Monocytes % 1.1 L, Eosinophils % 0, Basophils % 0, Absolute Granulocytes 14.8 H, Absolute Lymphocytes 0.1 L, Absolute Monocytes 0.2, Absolute Eosinophils 0, Absolute Basophils 0 Assessment/Plan Assessment/Plan Global heart failure with important fluid overload now much improved. Acute on chronic kidney failure secondary to IV contrast, improved. Afib on xarelto reduced dose due to creatinine clearance. I would continue lasix 80 mg PO daily, as patient is maintaining negative fluid balance. He should be seen at the heart failure clinic next week. Continue telemetry? Not applicable
--- NOTE | 2018-03-16 10:12 | Discharge Summary ---
Visit Information Visit Dates Admission Date: 02/27/18 Discharge Date: 03/16/2018 Hospital Course Course Attending Physician: Carmen Roy MD Primary Care Physician: Prabhakar Pearce MD Consulting Request: Consulting Specialty: Pulmonary Disease Hospital Course: This is a 67-year-old gentleman with past medical history of chronic respiratory failure due to COPD on 4 L O2 at baseline, on nocturnal BiPAP, A. fib on Xarelto , diabetes mellitus, hypertension, hyperlipidemia, AAA repair, heart failure with reduced ejection fraction (T percent) who came in for chief complaint of worsening shortness of breath. She has had a prolonged hospital stay of 17 days. During this time he is being treated for acute hypoxic respiratory failure secondary to COPD and CHF. His hospital stay was complicated by contrast induced nephropathy and acute kidney injury on CK D, anemia, atrial fibrillation with rapid ventricular rate. He was initially a full code when he came in. But as his health continued to deteriorate the palliative care team was consulted and after much discussion, patient has decided to be a DNR only. This means he is willing to be intubated. Patient's is very involved in his care and the patient tends to defer to her for significant changes in medical care. Pt was assessed for the following issues while in hospital: Acute hypoxic respiratory failure secondary to COPD, CHF and treated for age. Contrast-induced nephropathy secondary to diaphragmatic CTA. Atrial fibrillation Diabetes Hypertension Hyperlipidemia Anemia Hypokalemia secondary to acute renal failure PLAN: Upon discharge patient will need to continue meds as below steroid taper for his chronic respiratory failure with superimposed COPD exacerbation, continue on Xarelto for his atrial fibrillation. Additionally, is going to need his CBC and BMP monitored on a regular basis. He has had significant decline in renal function and has been anemic requiring transfusion in hospital. Etiology of anemia likely secondary to CK D and iron deficiency. He is also on Xarelto at a lower dose. He has received 1 unit PRBC transfusion. Goal hemoglobin in this gentleman is 7 and 21. Titrate O2 Saturation to 88% or above. Per palliative care recommendation medications for the sole purpose of improving long-term mortality have been discontinued such as statin. Pt has agreed to think about palliative care and hospice options once discharged. Diabetes: * Continue Levemir 8 units at bedtime * Continue Levemir 10 units in a.m. * Continue NovoLog sliding scale * Stop metformin given worsening renal function * Liberate diet CHF: * Continue Lasix 80 mg by mouth twice a day * Continue digoxin 0.125 mg every other day HCAP: * Continue ciprofloxacin by mouth 500 mg twice a day COPD: * Continue steroid taper * Continue morphine elixir 2.5 mg by mouth every 2 when necessary shortness of breath * Continue NEBS including spiriva and albuterol * Hypertension: * Continue hydralazine 20 mg by mouth twice a day Atrial fibrillation: * Continue Xarelto 50 mg by mouth daily * Continue Cardizem CD yesterday by mouth 1240 mg daily Allergies: Coded Allergies: No Known Allergies (03/22/18) Pertinent Lab Results: Intake & Output 03/16 1600 03/16 0800 03/16 0000 03/15 1600 03/15 0800 03/15 0000 Intake Total 240 600 0 1200 Output Total 800 878 944 2543 700 Balance -560 175 -550 -1000 500 Intake, Oral 240 600 0 1200 Number 0 0 Bowel Movements Output, Urine 800 732 873 4867 700 Patient 80.059 kg 75.466 kg Weight Weight Bed scale Measurement Method Laboratory Tests 03/16/18 0730: Anion Gap 9, Estimated GFR 28 L, BUN/Creatinine Ratio 40.0 H, CBC w Diff NO MAN DIFF REQ, RBC 2.67 L, MCV 88.7, MCH 28.7, MCHC 32.4 L, RDW 17.3 H, MPV 9.1, Gran % 94.6 H, Lymphocytes % 2.5 L, Monocytes % 2.9, Eosinophils % 0, Basophils % 0, Absolute Granulocytes 8.9 H, Absolute Lymphocytes 0.2 L, Absolute Monocytes 0.3, Absolute Eosinophils 0, Absolute Basophils 0 Laboratory Tests 03/16 03/15 0730 0625 Chemistry Sodium (137 - 145 mmol/L) 141 141 Potassium (3.5 - 5.1 mmol/L) 4.3 4.1 Chloride (98 - 107 mmol/L) 90 L 90 L Carbon Dioxide (22 - 30 mmol/L) 42 H 40 H Anion Gap (5 - 16) 9 11 BUN (9 - 20 mg/dL) 92 H 93 H Creatinine (0.7 - 1.2 mg/dL) 2.3 H 2.3 H Estimated GFR (>60 ml/min) 28 L 28 L BUN/Creatinine Ratio (7 - 25 %) 40.0 H 40.4 H Hematology CBC w Diff NO MAN DIFF REQ NO MAN DIFF REQ WBC (4.8 - 10.8 /CUMM) 9.4 8.9 RBC (4.70 - 6.10 /CUMM) 2.67 L 2.58 L Hgb (14.0 - 18.0 G/DL) 7.7 L 7.3 *L Hct (42 - 52 %) 23.7 L 22.8 L MCV (80.0 - 94.0 FL) 88.7 88.6 MCH (27.0 - 31.0 PG) 28.7 28.5 MCHC (33.0 - 37.0 G/DL) 32.4 L 32.2 L RDW (11.5 - 14.5 %) 17.3 H 17.8 H Plt Count (130 - 400 /CUMM) 178 164 MPV (7.4 - 10.4 FL) 9.1 9.6 Gran % (42.2 - 75.2 %) 94.6 H 92.5 H Lymphocytes % (20.5 - 51.1 %) 2.5 L 3.6 L Monocytes % (1.7 - 9.3 %) 2.9 3.7 Eosinophils % (0 - 5 %) 0 0.1 Basophils % (0.0 - 2.0 %) 0 0.1 Absolute Granulocytes (1.4 - 6.5 /CUMM) 8.9 H 8.3 H Absolute Lymphocytes (1.2 - 3.4 /CUMM) 0.2 L 0.3 L Absolute Monocytes (0.10 - 0.60 /CUMM) 0.3 0.3 Absolute Eosinophils (0.0 - 0.7 /CUMM) 0 0 Absolute Basophils (0.0 - 0.2 /CUMM) 0 0 03/14 1633 Hematology CBC w Diff NO MAN DIFF REQ WBC (4.8 - 10.8 /CUMM) 15.2 H RBC (4.70 - 6.10 /CUMM) 2.85 L Hgb (14.0 - 18.0 G/DL) 7.9 L Hct (42 - 52 %) 24.7 L MCV (80.0 - 94.0 FL) 86.7 MCH (27.0 - 31.0 PG) 27.9 MCHC (33.0 - 37.0 G/DL) 32.2 L RDW (11.5 - 14.5 %) 17.8 H Plt Count (130 - 400 /CUMM) 172 MPV (7.4 - 10.4 FL) 9.5 Gran % (42.2 - 75.2 %) 98.3 H Lymphocytes % (20.5 - 51.1 %) 0.6 L Monocytes % (1.7 - 9.3 %) 1.1 L Eosinophils % (0 - 5 %) 0 Basophils % (0.0 - 2.0 %) 0 Absolute Granulocytes (1.4 - 6.5 /CUMM) 14.8 H Absolute Lymphocytes (1.2 - 3.4 /CUMM) 0.1 L Absolute Monocytes (0.10 - 0.60 /CUMM) 0.2 Absolute Eosinophils (0.0 - 0.7 /CUMM) 0 Absolute Basophils (0.0 - 0.2 /CUMM) 0 Disposition Summary Disposition Principal Diagnosis: acute hypoxic respiratory failure Additional Diagnosis: HCAP Discharge Disposition: SNF Discharge Instructions General Discharge Information Code Status: Do Not Resucitate Patient's Diet: LOW SALT DIET Patient's Activity: TOLERATED Follow-Up Instructions/Appts: SEE ABOVE Medications at Discharge Discharge Medications: Stop taking the following medications: Rivaroxaban (Xarelto) 20 MG TABLET ORAL DAILY Aspirin (Aspirin*) 81 MG TAB.CHEW ORAL DAILY Atorvastatin Calcium (Lipitor) 10 MG TABLET ORAL DAILY Metformin HCl (Glucophage) 1,000 MG TABLET ORAL TWICE DAILY Diltiazem HCl (Cardizem Cd) 240 MG CAP.ER.24H ORAL DAILY Days = 30 Furosemide (Lasix) 40 MG TABLET ORAL TWICE DAILY Days = 30 [ACETAZOLAMIDE ER] 500 MG ORAL DAILY [NATURE MADE IRON] 65 MG TAB ORAL TAKE AT BEDTIME Prednisone (Prednisone) 10 MG TABLET ORAL SEE INSTRUCTIONS Qty = 18 Continue taking these medications: Tiotropium [place] (Spiriva) 18 MCG CAP.W.DEV 1 Capsule Inhale through mouth DAILY Comments: 03/16/18 @ 03/16/18 @0846 Budesonide/Formoterol Fumarate (Symbicort 160-4.5 Mcg Inhaler) 160 MCG-4.5 MCG/ ACTUATION HFA.AER.AD 2 Puff Inhale through mouth TWICE DAILY Comments: Last Taken: 02/02/18 Time: 9am Albuterol Sulfate (Proair Hfa) 90 MCG HFA.AER.AD 2 Puff Inhale through mouth EVERY 4-6 HOURS NEEDED as needed for SHORTNESS OF BREATH Comments: NOT GIVEN IN HOSPITAL Albuterol Sulfate (Albuterol Sulfate) 2.5 MG/3 ML (0.083 %) VIAL.NEB 1 Vial Inhale Solution EVERY 4 HOURS NEEDED as needed for SHORTNESS OF BREATH Comments: LAST GIVEN 03/16/18 @ 0741 Pantoprazole Sodium (Protonix) 40 MG TABLET. 1 Tablet ORAL DAILY Comments: Last Taken: 02/02/18 Time: 6AM PRILOSEC GIVEN SUBSTITUTION Ferrous Sulfate (Ferrous Sulfate) 325 MG TABLET. 325 Milligram ORAL TWICE DAILY Days = 30 Comments: Last Taken: 02/02/18 Time: 9AM Cyanocobalamin (Vitamin B-12) (B-12) 1,000 MCG TABLET 1 Tablet ORAL DAILY Comments: NOT GIVEN WHILE IN HOSPITAL Loperamide HCl (Loperamide) 2 MG CAPSULE 2 Capsule ORAL TWICE DAILY as needed for ANTI-DIARRHEAL Comments: NOT GIVEN WHILE IN HOSPITAL Oxycodone HCl/Acetaminophen (Percocet 5-325 MG Tablet) 5 MG-325 MG TABLET 1-2 Tablet ORAL EVERY 4-6 HOURS as needed for PAIN Qty = 30 Instructions: tylenol alternatively. do not combine. Start taking the following new medications: Rivaroxaban (Xarelto) 15 MG TABLET 1 Tablet ORAL 1900 Qty = 30 No Refills Comments: LAST GIVEN 03/15/18 @ 1958 Digoxin (Lanoxin) 125 MCG TABLET 1 Tablet ORAL EVERY 48 HOURS (Every 2 days) Qty = 30 No Refills Comments: LAST GIVEN 03/14/17 @ 1715 Hydralazine HCl (Hydralazine HCl) 10 MG TABLET 1 Tablet ORAL TWICE DAILY Qty = 30 No Refills Comments: LAST GIVEN 03/16/18 @ 0846 Metoprolol Tartrate (Metoprolol Tartrate) 25 MG TABLET 1 Tablet ORAL TWICE DAILY Qty = 30 No Refills Comments: LAST GIVEN 03/16/18 @ 0846 Morphine Sulfate (Morphine Sulfate Elixir 10mg/5ml) 10 MG/5 ML SOLUTION 2.5 Milligram ORAL EVERY 2 HOURS NEEDED as needed for SHORTNESS OF BREATH Qty = 1 No Refills Comments: LAST GIVEN 4/27/18 @ 0947 Furosemide (Lasix) 80 MG TABLET 1 Tablet ORAL TWICE DAILY Qty = 30 No Refills Comments: LAST GIVEN 03/16/18 @0846 Insulin Detemir (Levemir) 100 UNIT/ML VIAL 10 Units Inject into fatty tissue 0900 Qty = 1 No Refills Comments: LAST GIVEN 03/16/18 @ 0955 Insulin Detemir (Levemir) 100 UNIT/ML VIAL 8 Units Inject into fatty tissue AT BEDTIME Qty = 1 No Refills Diltiazem HCl (Cardizem Cd) 240 MG CAP.ER.24H 240 Milligram ORAL DAILY Qty = 30 No Refills Comments: LAST GIVEN 03/16/18 @ 0846 Copies To: Prabhakar Pearce MD, MD Review Statement Documenting Attending: Sangeeta Garcia MD Other Findings: This patient was cared by Dr. Garcia and team for the most of his hospital course. He was transferred to medicine floor to our service on the day of his discharge. Pt medically stable for discharge to rehab. Discharging physician Dr Carmen Naik MD. ON 03/19 TAKE 1.5 TAB PO FOR 30 MG TOTAL ON 03/20 TAKE 1.5 TAB PO FOR 30 MG TOTAL ON 03/21 TAKE 1.5 TAB PO FOR 30 MG TOTAL ON 03/22 TAKE 1 TAB PO FOR 20 MG TOTAL ON 03/23 TAKE 1 TAB PO FOR 20 MG TOTAL ON 03/24 TAKE 1 TAB PO FOR 20 MG TOTAL ON 03/25 TAKE .5 TAB PO FOR 10 MG TOTAL ON 03/26 TAKE .5 TAB PO FOR 10 MG TOTAL ON 03/27 TAKE .5 TAB PO FOR 10 MG TOTAL THEN STOP Copies To: Prabhakar Pearce MD, MD Review Statement Other Findings: This patient was cared by Dr. Garcia and team for the most of his hospital course. He was transferred to medicine floor to our service on the day of his discharge. Pt medically stable for discharge to rehab.
[2018-03-16] MEDS ORDERED: METOPROLOL TART25 M1 PO (10:19)
[2018-03-16] MEDS ORDERED: XARELTO15 M1 PO (10:19)
[2018-03-16] MEDS ORDERED: MORPHINE S10 MG/5 M2 PO (10:19)
[2018-03-16] MEDS ORDERED: CIPRO500 M1 PO (10:19)
[2018-03-16] MEDS ORDERED: HYDRALAZINE HCL10 M1 PO (10:19)
[2018-03-16] MEDS ORDERED: LANOXIN125 MCG PO (10:19)
[2018-03-16] MEDS ORDERED: PREDNISONE20 M1 PO (10:26)
[2018-03-16] MEDS ORDERED: LASIX80 M1 PO (10:26)
[2018-03-16] MEDS ORDERED: LEVEMIR100 UNIT/1 SC ×2 (10:28)
[2018-03-16] MEDS ORDERED: CARDIZEM CD240 M1 PO (10:41)
--- NOTE | 2018-03-16 11:06 | PN- Att Addend ---
Attending Addendum Attending Brief Note Patient seen and examined, overall doing much better. Patient on 5 L of oxygen saturating in high 90s before we try to taper. Patient currently denies any shortness of breath. He was a transfer from telemetry. Patient is admitted with following issues. Acute hypoxic respiratory failure secondary to COPD, CHF and treated for age. Contrast-induced nephropathy secondary to diaphragmatic CTA. Atrial fibrillation Diabetes Hypertension Hyperlipidemia Anemia Hypokalemia secondary to acute renal failure. Patient currently has been switched to oral steroids, oral Lasix. He has a bed available at short-term rehabilitation and he is medically stable for discharge. His creatinine is platued in 2s. His O2 sats are at his baseline. He will be discharged on oral prednisone taper. Off note his cardizem dose has been decreased as well as his hydralazine. Will be discharged to [facility] today.
[2018-03-16 11:45] VITALS: BP 108/58
--- NOTE | 2018-03-16 13:30 | PN- Pulmonary ---
Subjective HPI/Critical Care Issues: pt seen and examined awaiting dc feeling much better Objective Current Medications: Current Medications Sig/Eve Start time Last Medication Dose Route Stop Time Status Admin Albuterol Sulfate 3 ML EVERY 4 HRS/AWAKE 02/28 1200 DCD 03/16 INH 1152 Ciprofloxacin 500 MG BID 03/14 0900 DCD 03/16 PO 03/18 0859 0847 Digoxin 0.125 MG Q48@1700 03/10 1700 DCD 03/14 PO 1715 Diltiazem HCl 240 MG DAILY 03/03 09 DCD 03/16 PO 0846 Ferrous Sulfate 325 MG BID 02/28 1000 DCD 03/16 PO 0847 Furosemide 80 MG 7:30 AM, & 4:30 PM 03/14 1630 MAD 03/16 PO 0846 Guaifenesin 10 ML .STK-MED ONE 03/15 1948 [facility] 03/15 194 Guaifenesin 600 MG Q12 03/11 2100 [facility] 03/16 PO 0847 Guaifenesin 10 ML Q4P PRN 03/06 0630 [facility] 03/16 PO 0947 Hydralazine HCl 20 MG BID 03/10 2100 [facility] 03/16 PO 0846 Insulin Aspart 8 UNITS ONCE ONE 03/15 2345 MA 03/16 SD 03/15 2346 0006 Insulin Aspart 8 UNITS ONCE ONE 03/15 2245 MA 03/15 SD 03/15 2246 2254 Insulin Aspart 0 AT BEDTIME 03/08 2100 [facility] 03/15 SD 2116 Insulin Aspart 0 TIDAC 03/08 0800 [facility] 03/16 SD 1229 Insulin Detemir 8 UNITS AT BEDTIME 03/16 2100 [facility] Insulin Detemir 10 UNITS 0900 03/16 0900 [facility] 03/16 SD 0953 Insulin Detemir 8 UNITS BID 03/09 0900 MA 03/15 SD 2116 Lactobacillus 1 CAP DAILY 03/15 09 [facility] 03/16 Acidophilus PO 0847 Loperamide HCl 4 MG BID PRN 02/28 0415 DCD PO Metoprolol Tartrate 25 MG BID 02/28 1324 [facility] 03/16 PO 0847 Morphine Sulfate 2.5 MG Q2P PRN 03/12 1600 [facility] 03/16 PO 0947 Omeprazole 20 MG DAILY AC 03/10 0700 DCD 03/16 PO 0530 Rivaroxaban 15 MG 1900 03/10 1900 DCD 03/15 PO 1958 Sodium Chloride 2 SPRAY Q4P PRN 03/01 2100 DCD CESAR Tiotropium [place] 1 PUF DAILY 03/01 0900 DCD 03/16 INH 0846 Vital Signs & I&O Last 24 Hrs of Vitals and I&O: Vital Signs Date Time Temp Pulse Resp B/P B/P Pulse O2 O2 Flow FiO2 Mean Ox Delivery Rate 03/16 1145 97.6 94 20 108/58 03/16 0847 94 108/58 03/16 0800 94 Nasal 4.0L Cannula 03/16 0800 94 Nasal 4.0L Cannula 03/16 0740 95 Nasal 5.0L Cannula 03/16 0636 97.6 86 20 120/60 92 Nasal 5.0L Cannula 03/16 0600 93 Nasal 5.0L Cannula 03/16 0348 67 92 03/16 0035 93 96 03/16 0000 BIPAP 03/15 2237 88 98 03/15 2200 95 Nasal 5.0L Cannula 03/15 2117 93 122/62 03/15 2003 97.8 83 19 108/54 96 Nasal 5.0L Cannula 03/15 2000 Nasal 5.0L Cannula 03/15 1625 93 Nasal 5.0L Cannula 03/15 1411 97.6 88 20 104/66 91 Nasal 5.0L Cannula 03/15 1400 92 Nasal 5.0L Cannula Intake & Output 03/16 1600 03/16 0800 03/16 0000 Intake Total 240 600 Output Total 800 425 Balance -560 175 Intake, Oral 240 600 Output, Urine 800 425 Patient 177 lb Weight Weight Bed scale Measurement Method Exam Other Physical Findings: gen awake and alert heent nasal cannula cvs s1, s2 lungs rare rhonchi, diminished bs at bases abd soft ext 2-3+ edema Results Last 24 Hrs of Lab Results: Laboratory Tests 03/16/18 0730: Anion Gap 9, Estimated GFR 28 L, BUN/Creatinine Ratio 40.0 H, CBC w Diff NO MAN DIFF REQ, RBC 2.67 L, MCV 88.7, MCH 28.7, MCHC 32.4 L, RDW 17.3 H, MPV 9.1, Gran % 94.6 H, Lymphocytes % 2.5 L, Monocytes % 2.9, Eosinophils % 0, Basophils % 0, Absolute Granulocytes 8.9 H, Absolute Lymphocytes 0.2 L, Absolute Monocytes 0.3, Absolute Eosinophils 0, Absolute Basophils 0 Impression/Plan Impression/Plan Impression/Plan: Impression 67 year old man CHF exacerbation COPD exacerbation acute on chronic hypoxemic respiratory failure anemia heavy growth of pseudomonas in sputum Plan -prednisone taper as ordered -continue course of ciprofloxacin for pseudomonas - in the future he may remain colonized -wishes to be DNR, however accepting intubation at this point -diuresis/ins/outs/cardilogy f/u -nocturnal bipap -monitor hemoglobin DVT prophylaxis at all times
--- NOTE | 2018-03-19 10:27 | PN- Cardiology ---
Subjective Subjective: Pseudomonas growth in sputum culture, Ceftaz started last evening. No complaints. Expresses feeling better and lower extremity swelling having improved. Continues using nightly BiPAP, and high flow O2 around 50%. Objective Vital Signs and I&Os Objective Last 24 Hrs of Vital Signs/I&O Vital Signs Date Time Temp Pulse Resp B/P B/P Pulse O2 O2 Flow FiO2 Mean Ox Delivery Rate 03/14 0830 112 122/68 03/14 0830 112 122/68 03/14 0820 93 Nasal 5.0L Cannula 03/14 08 90 Nasal 5.0L Cannula 03/14 0638 97.7 101 22 122/68 97 Nasal Cannula 03/14 0616 79 99 03/14 0600 96 Nasal 50% Cannula 03/14 0308 88 97 03/14 0033 79 98 03/14 0000 96 BIPAP 50% 03/13 2251 67 95 03/13 2206 98.3 107 18 118/70 91 03/13 2200 94 Nasal 50% Cannula 03/13 204 99 118/72 03/13 204 109 118/72 03/13 1600 89 Nasal 5.0L Cannula 03/13 1600 87 Nasal 5.0L Cannula 03/13 1412 98.5 83 20 104/60 Nasal Cannula 03/13 1400 88 Nasal 5.0L Cannula Intake & Output 03/14 1600 03/14 0800 03/14 0000 Intake Total 240 450 Output Total 1050 1000 Balance -810 -550 Intake, Oral 240 450 Number 0 0 Bowel Movements Output, Urine 1050 1000 Patient 176 lb Weight Weight Bed scale Measurement Method Physical Exam: General Appearance: Alert, Oriented X3, Cooperative, No Acute Distres Skin Temp/Moisture Exam: Warm/Dry HEENT: Atraumatic, EOMI, Mucous Membr. moist/pink Cardiovascular: irregular rhythm No Murmurs Lungs: Clear to Auscultation, Normal Air Movement Abdomen: Normal Bowel Sounds, Soft, No Tenderness Neurological: Normal Speech Extremities: No Clubbing, No Cyanosis, Normal Pulses, 3+ pitting edema bilaterally Current Medications: Current Medications Sig/Eve Start time Last Medication Dose Route Stop Time Status Admin Albuterol Sulfate 3 ML EVERY 4 HRS/AWAKE 02/28 1200 AC 03/14 INH 0820 Atorvastatin Calcium 10 MG DAILY 02/28 1000 DC 03/13 PO 0817 Budesonide/ 2 PUF BID 03/01 0900 DC 03/14 Formoterol Fumarate INH 0841 Ceftazidime 1,000 MG Q12H 03/13 1200 DC 03/14 IV 0016 Ciprofloxacin 500 MG BID 03/14 0900 AC 03/14 PO 03/18 0859 1106 Digoxin 0.125 MG Q48@1700 03/10 1700 AC 03/12 PO 1730 Diltiazem HCl 240 MG DAILY 03/03 09 AC 03/14 PO 0830 Epoetin Jules 4,000 UNIT ONCE ONE 03/13 1215 DC 03/13 SC 03/13 1216 1316 Ferrous Sulfate 325 MG BID 02/28 1000 AC 03/14 PO 0830 Furosemide 80 MG 7:30 AM, & 4:30 PM 03/14 1630 AC PO Furosemide 80 MG BID 03/08 09 DC 03/14 IV 0829 Guaifenesin 10 ML .STK-MED ONE 03/13 2114 DC PO 03/13 211 Guaifenesin 10 ML .STK-MED ONE 03/13 1328 DC PO 03/13 1329 Guaifenesin 600 MG Q12 03/11 2100 AC 03/14 PO 0830 Guaifenesin 10 ML Q4P PRN 03/06 0630 AC 03/14 PO 0608 Hydralazine HCl 20 MG BID 03/10 2100 AC 03/14 PO 0830 Insulin Aspart 0 AT BEDTIME 03/08 2100 AC 03/13 SC 210 Insulin Aspart 0 TIDAC 03/08 0800 AC 03/14 SC 0805 Insulin Detemir 8 UNITS BID 03/09 09 AC 03/14 SC 0805 Loperamide HCl 4 MG BID PRN 02/28 0415 PO Methylprednisolone 30 MG DAILY 03/13 09 DC 03/13 IV 03/14 0600 0816 Metoprolol Tartrate 25 MG BID 02/28 1324 AC 03/14 PO 0830 Morphine Sulfate 2.5 MG Q2P PRN 03/12 1600 AC 03/14 PO 0608 Omeprazole 20 MG DAILY AC 03/10 0700 AC 03/14 PO 0607 Prednisone 40 MG DAILY 03/14 0900 AC 03/14 PO 03/15 0901 1106 Rivaroxaban 15 MG 1900 03/10 1900 AC 03/13 PO 2033 Sodium Chloride 2 SPRAY Q4P PRN 03/01 2100 AC CESAR Tiotropium Zimmerman 1 PUF DAILY 03/01 0900 AC 03/14 INH 0841 Results Last 48 Hrs of Labs/Mics: Last 24 Hrs of Labs/Mics: Laboratory Tests 03/14/18 0655: Anion Gap 10, Estimated GFR 27 L, BUN/Creatinine Ratio 42.1 H, CBC w Diff NO MAN DIFF REQ, RBC 2.44 L, MCV 89.3, MCH 29.5, MCHC 33.1, RDW 17.2 H, MPV 9.3, Gran % 95.2 H, Lymphocytes % 1.7 L, Monocytes % 3.1, Eosinophils % 0, Basophils % 0, Absolute Granulocytes 11.1 H, Absolute Lymphocytes 0.2 L, Absolute Monocytes 0.4, Absolute Eosinophils 0, Absolute Basophils 0 03/13/183: CBC w Diff NO MAN DIFF REQ, RBC 2.87 L, MCV 86.9, MCH 27.9, MCHC 32.2 L, RDW 18.0 H, MPV 10.2, Gran % 98.6 H, Lymphocytes % 0.6 L, Monocytes % 0.8 L, Eosinophils % 0, Basophils % 0, Absolute Granulocytes 11.9 H, Absolute Lymphocytes 0.1 L, Absolute Monocytes 0.1, Absolute Eosinophils 0, Absolute Basophils 0 Assessment/Plan Assessment/Plan Hypoxemic respiratory failure in context of decompensated systolic heart failure and COPD exacerbation. Afib with good ventricular rate control. Anemia s/p PRBC transfusion. MADISON secondary to IV contrast. Creatinine stable and negative fluid balance with furosemide PO which i would maintain at the same dose for the moment. Wait until kidney function stabilized before adding ACEI/ARB. Respiratory culture is growing GNRs idenitified as PSEUDOMONAS. Ceftaz started last night. Hb >75-80 ideally. Continue telemetry? Not applicable
[2018-03-22] MEDS ORDERED: PREDNISONE10 M2 PO (12:07)
[2018-03-22] MEDS ORDERED: NASONEX17 GM NASB (12:08)
[2018-03-22] MEDS ORDERED: NOVOLOG100 UNIT/2 SC (12:08)
[2018-03-22] MEDS ORDERED: MORPHINE S10 MG/5 M2 PO (12:22)
== END 2018-03-16 12:55 | DRG 189 ==
LOC: ERH 17:24 → ERHI 21:47 → ENRESERV 02-28 10:15 → ENTRNSPT 02-28 14:18 → EDTRNSPTSTS 02-28 14:26 → EDTRNSPT 02-28 14:26 → CMPTRNSPT 02-28 14:55 → 1NO 02-28 15:03 → 2NA 03-08 22:17 → 1NO 03-09 16:24 → ENTRNSPT 03-15 19:14 → EDTRNSPT 03-15 19:23 → EDTRNSPTSTS 03-15 19:23 → 2NB 03-15 19:42 → CMPTRNSPT 03-15 19:45 → 2NB 03-16 07:57 → ENPENDDIS 03-16 10:49 → 2NB 03-16 12:55
PROVIDERS: Dermatology; Physician Assistant; Radiology Vascular & Interventional Radiology; Student in an Organized Health Care Education/Training Program
DX: J96.20 Acute and chronic respiratory failure, unspecified whether with hypoxia or hypercapnia (principal); N17.9 Acute kidney failure, unspecified; I50.33 Acute on chronic diastolic (congestive) heart failure; J44.1 Chronic obstructive pulmonary disease with (acute) exacerbation; I13.0 Hypertensive heart and chronic kidney disease with heart failure and stage 1 through stage 4 chronic kidney disease, or unspecified chronic kidney disease; E11.8 Type 2 diabetes mellitus with unspecified complications; I48.91 Unspecified atrial fibrillation; Z99.81 Dependence on supplemental oxygen; Z79.01 Long term (current) use of anticoagulants; E78.5 Hyperlipidemia, unspecified; K21.9 Gastro-esophageal reflux disease without esophagitis; Z85.46 Personal history of malignant neoplasm of prostate; Z86.73 Personal history of transient ischemic attack (TIA), and cerebral infarction without residual deficits; Z51.5 Encounter for palliative care; Z66 Do not resuscitate; T50.8X5A Adverse effect of diagnostic agents, initial encounter; Y92.239 Unspecified place in hospital as the place of occurrence of the external cause; D64.9 Anemia, unspecified; E87.6 Hypokalemia; I50.9 Heart failure, unspecified; N18.9 Chronic kidney disease, unspecified
CPT/HCPCS: 1NP; 2NAP; 2NBP; ERO; 36415; 36592; 71045; 74174; 82436; 82570; 86902; 86920; 86922; 87040; 87070; 87086; 87804; 87804-59; 93005; 93010; 93306; 93970; 96374; 96375; 99291; J0456; J0696; J0713; J0885-EC; J1815; J1940; J2920; J2930; J3370; J3490; J7040; J7060; J7512; P9016

== ENCOUNTER 2018-04-10 15:47 | Inpatient (IN) | payer OTHER ==
[~2018-04-10] VITALS: Ht 180.3 cm; Wt 79.5 kg
[~2018-04-10 15:47] MED LIST changes: +CIPRO500 M1 PO; +HYDRALAZINE HCL10 M1 PO; +LANOXIN125 MCG PO; +LASIX80 M1 PO; +LEVEMIR100 UNIT/1 SC; +METOPROLOL TART25 M1 PO; +MORPHINE S10 MG/5 M2 PO; +NASONEX17 GM NASB; +XARELTO15 M1 PO
--- NOTE | 2018-04-10 15:57 | ED CARDIAC/CP/PALPITATIONS ---
History of Present Illness General Chief Complaint: General Adult Stated Complaint: BIBA LOW H&H Source: patient Exam Limitations: no limitations Vital Signs & Intake/Output Vital Signs & Intake/Output Vital Signs Date Time Temp Pulse Resp B/P B/P Pulse O2 O2 Flow FiO2 Mean Ox Delivery Rate 04/10 2206 Nasal 5.0L Cannula 04/10 2130 98.8 80 18 124/62 98 Nasal 5.0L Cannula 04/10 2107 Nasal 5.0L Cannula 04/10 192 98.4 83 20 125/61 94 Nasal 5.0L Cannula 04/10 1817 89 Nasal 5.0L Cannula 04/10 1559 98.2 80 20 134/70 91 Nasal 4.0L Cannula Allergies Coded Allergies: No Known Allergies (04/10/18) Reconcile Medications Albuterol Sulfate (Proair Hfa) 90 MCG HFA.AER.AD 2 PUF INH Q4-6 PRN PRN SHORTNESS OF BREATH (Reported) Albuterol Sulfate 2.5 MG/3 ML (0.083 %) VIAL.NEB 1 Vial INH/ABILIO Q4P PRN SHORTNESS OF BREATH (Reported) Budesonide/Formoterol Fumarate (Symbicort 160-4.5 Mcg Inhaler) 160 MCG-4.5 MCG/ ACTUATION HFA.AER.AD 2 PUF INH BID SHORTNESS OF BREATH (Reported) Cyanocobalamin (Vitamin B-12) (B-12) 1,000 MCG TABLET 1 TAB PO DAILY VITAMIN SUPPORT (Reported) Digoxin (Lanoxin) 125 MCG TABLET 1 TAB PO Q48@1700 AFIB Diltiazem HCl (Cardizem Cd) 240 MG CAP.ER.24H 240 MG PO DAILY ATRIAL FIB Ferrous Sulfate 325 MG TABLET.DR 325 MG PO BID Iron supplement Furosemide (Lasix) 80 MG TABLET 1 TAB PO BID CHF Hydralazine HCl 10 MG TABLET 1 TAB PO BID HTN Insulin Aspart (Novolog) (Unknown Strength) VIAL (Unknown Dose) SC SEE SLIDING SCALE DIABETES (Reported) Insulin Detemir (Levemir) 100 UNIT/ML VIAL 10 UNITS SC 0900 DM Insulin Detemir (Levemir) 100 UNIT/ML VIAL 8 UNITS SC AT BEDTIME DM Loperamide HCl (Loperamide) 2 MG CAPSULE 2 CAP PO BID PRN ANTI-DIARRHEAL ( Reported) Metoprolol Tartrate 25 MG TABLET 1 TAB PO BID AFIB Mometasone Furoate (Nasonex) 50 MCG SPRAY.PUMP 1 SPRAY NASB DAILY ALLERGIES ( Reported) Morphine Sulfate (Morphine Sulfate Elixir 10mg/5ml) 10 MG/5 ML SOLUTION 2.5 MG PO Q2P PRN UNKNOWN (Reported) Morphine Sulfate (Morphine Sulfate Elixir 10mg/5ml) 10 MG/5 ML SOLUTION 2.5 MG PO Q2P PRN SHORTNESS OF BREATH Oxycodone HCl/Acetaminophen (Percocet 5-325 MG Tablet) 5 MG-325 MG TABLET 1-2 TAB PO Q4-6 PRN PAIN tylenol alternatively. do not combine. Pantoprazole Sodium (Protonix) 40 MG TABLET.DR 1 TAB PO DAILY ACID REFLUX ( Reported) Prednisone 10 MG TABLET 1 TAB PO DAILY COPD (Reported) Rivaroxaban (Xarelto) 15 MG TABLET 1 TAB PO 1900 AFIB Tiotropium Otto (Spiriva) 18 MCG CAP.W.DEV 1 CAP INH DAILY SHORTNESS OF BREATH (Reported) Triage Nurses Notes Reviewed? yes Onset: Gradual Duration: constant Timing: recent history Radiation: no radiation HPI: PT IS A 67-year-old gentleman with past medical history of chronic respiratory failure due to COPD on 4 L O2 at baseline, on nocturnal BiPAP, A. fib on Xarelto , diabetes mellitus, hypertension, hyperlipidemia, AAA repair, heart failure with reduced ejection fraction who presents emergency room but in by a months from [facility] for concerns of anemia old records indicate that patient's hemoglobin earlier today was 6.7. Last bowel movement noted by patient today no blood no melena. Patient is complaining of a one-week history of cough and nasal congestion and chronic shortness of breath and mild generalized weakness. Denies any chest pain arm pain jaw pain nausea vomiting leg swelling or source of anemia or bleeding (Greg Braga) Past History Travel History Traveled to [place] past 21 day No Medical History Any Pertinent Medical History? see below for history Neurological: TIA 2010 EENT: cataracts Cardiovascular: AFIB, CHF, hypertension, hyperlipidemia Respiratory: COPD, 4L O2 DEPENDENT BIPAP AT NIGHT Gastrointestinal: GERD, ABD ANEURYSM Hepatic: NONE Renal: NONE Musculoskeletal: NONE Psychiatric: NONE Blood Disorders: NONE Cancer(s): prostate cancer [employer]OR/Reproductive: NONE History of MRSA: Yes History of VRE: No History of CDIFF: No Pneumonia Vaccine: 09/20/16 Influenza Vaccine: 08/20/17 Tetanus Vaccine: 01/21/18 Surgical History Surgical History: cataract removal, PROSTATE SURGERY AAA REPAIR TONSILLECTOMY Endovascular AAA repair endovascular abdominal aortic aneurysm repair Psychosocial History Who do you live with Spouse Services at Home None What is your primary language Turkish Family History Family History, If Any: MOTHER, ; Cause: COPD (chronic obstructive pulmonary disease). FATHER, ; Cause: Myocardial infarct. SISTER, ; Cause: Myocardial infarct. Hx Contributory? No (Greg Braga) Review of Systems Review of Systems Constitutional: Reports: see HPI, weakness. EENTM: Reports: no symptoms. Respiratory: Reports: see HPI, cough. Cardiovascular: Reports: see HPI. GI: Reports: see HPI. Genitourinary: Reports: no symptoms. Musculoskeletal: Reports: no symptoms. Skin: Reports: no symptoms. Neurological/Psychological: Reports: no symptoms. Hematologic/Endocrine: Reports: no symptoms. Immunologic/Allergic: Reports: no symptoms. All Other Systems: Reviewed and Negative (Greg Braga) Physical Exam Physical Exam General Appearance: no apparent distress, alert Head: normal appearance Eyes: Bilateral: normal appearance, PERRL. Ears, Nose, Throat: normal pharynx, normal ENT inspection Neck: normal inspection Respiratory: no respiratory distress, crackles, wheezing Cardiovascular: irregularly irregular Gastrointestinal: normal bowel sounds, soft, non-tender Rectal: normal exam, normal rectal tone, heme positive stool, BROWN STOOL Extremities: pedal edema Neurologic/Psych: no motor/sensory deficits Skin: intact, normal color Core Measures ACS in differential dx? Yes CVA/TIA Diagnosis No Sepsis Present: No Sepsis Focused Exam Completed? No (Greg Braga) Progress Differential Diagnosis: AMI, aortic dissection, atrial fibrillation, cholecystitis, CHF/pulm edema, costochondritis, hyperkalemia, hypovolemia, hyperthyroid, hyperventilation, intracranial hemorrhage, musculoskeletal pain, myocarditis, pancreatitis, pericarditis, pneumonia, pneumothorax, PSVT, pulmonary embolism, PUD/GERD, PVCs/PACs, respiratory failure, rib fracture, sepsis, unstable angina, V-fib/V-Tach, WPW syndrome Plan of Care: Orders Procedure Date/time Status Heart Healthy Diet 04/11 B Active CBC WITHOUT DIFFERENTIAL 04/11 600 Active BASIC ELECTROLYTES PLUS BUN&CR 04/11 600 Active RT: Evaluation 04/10 2206 Active Weight 04/10 2106 Active Vital Signs 04/10 2106 Active Teach/Educate 04/10 2106 Active Pain Treatment and Response 04/10 2106 Active Nutritional Intake, Monitor 04/10 2106 Active Isolation 04/10 2106 Active Intake & Output 04/10 2106 Active Patient Care Conference 04/10 2106 Active Activity/Ambulation 04/10 2106 Active TRC EVALUATION (GEN) 04/10 2039 Active OXYGEN SETUP (GEN) 04/10 2039 Active PT Evaluate & Treat 04/10 2039 Active Pathway - chart 04/10 2039 Active House Staff 04/10 2039 Active FingerStick- Glucose 04/10 2012 Active Patient Data 04/10 184 Active ED Holding Orders 04/10 184 Active Admit to inpatient 04/10 184 Active Vital Signs 04/10 184 Active Code Status 04/10 184 Active LEUKOCYTE POOR (PACKED CELLS) 04/10 1728 Active TOTAL IRON BINDING CAPACITY 04/10 1634 Complete RETICULOCYTE COUNT 04/10 1634 Complete LDH (LACT ACID DEHYDROGENASE) 04/10 1634 Complete HAPTOGLOBIN 04/10 1634 Active FERRITIN 04/10 1634 Complete SERUM IRON 04/10 1634 Complete B-TYPE NATRIURETIC PEP (BNP) 04/10 1634 Complete TROPONIN LEVEL 04/10 1623 Complete PARTIAL THROMBOPLASTIN TIME 04/10 1623 Complete PROTHROMBIN TIME 04/10 1623 Complete COMPREHENSIVE METABOLIC PANEL 04/10 1623 Complete CBC WITHOUT DIFFERENTIAL 04/10 1623 Complete EKG 04/10 1623 Active TYPE & SCREEN (NOT X-MATCH) 04/10 1623 Active Intake & Output 04/10 1557 Complete BIPAP 04/10 UNK Complete Lab Add-on Test 04/10 UNK Active VTE Mechanical Prophylaxis 04/10 UNK Active Intake & Output 04/10 UNK Active Hemoccult 04/10 UNK Active Current Medications Sig/Eve Start time Last Medication Dose Stop Time Status Admin Digoxin 0.125 MG Q48@1700 04/12 1700 AC (Lanoxin) Insulin Aspart 0 AT BEDTIME 04/11 2100 AC (NovoLOG) Insulin Detemir 8 UNITS AT BEDTIME 04/11 2100 AC (Levemir) Rivaroxaban 15 MG 1900 04/11 1900 CAN (Xarelto) Cyanocobalamin 1,000 MCG DAILY 04/11 0900 AC (Vitamin B12) Diltiazem HCl 240 MG DAILY 04/11 900 AC (Cardizem CD) Insulin Detemir 10 UNITS 0900 04/11 09 AC (Levemir) Prednisone 10 MG DAILY 04/11 900 AC Tiotropium Otto 1 PUF DAILY 04/11 900 AC (Spiriva) Albuterol Sulfate 3 ML EVERY 4 HRS/AWAKE 04/11 08 AC (Proventil) Insulin Aspart 0 TIDAC 04/11 08 AC (NovoLOG) Furosemide 80 MG 7:30 AM, & 4:30 PM 04/11 07 AC (Lasix) Omeprazole 40 MG DAILY AC 04/11 700 AC (Prilosec) Oxycodone/ 2 TAB Q4-6 PRN 04/10 2245 AC Acetaminophen (Percocet) Morphine Sulfate 2.5 MG Q2P PRN 04/10 2215 AC Oxycodone/ 1 TAB Q4-6 PRN 04/10 2215 AC Acetaminophen (Percocet) Sodium Chloride 2 SPRAY Q4P PRN 04/10 2215 AC (Nasal) Metoprolol Tartrate 25 MG BID 04/10 2212 AC (Lopressor) Ferrous Sulfate 325 MG BID 04/10 2211 AC (Feosol) Hydralazine HCl 10 MG BID 04/10 2211 AC (Apresoline) Budesonide/ 2 PUF BID 04/10 2210 AC Formoterol Fumarate (Symbicort) Laboratory Tests 04/10/18 1634: Haptoglobin Pending 04/10/18 1634: Anion Gap 11, Estimated GFR 33 L, BUN/Creatinine Ratio 31.5 H, Glucose 54 L, Calcium 8.3 L, Iron 44 L, TIBC 212 L, Ferritin 362.0, Total Bilirubin 0.5, AST 14 L, ALT 22, Alkaline Phosphatase 84, Lactate Dehydrogenase 611, Troponin I 0.03, Yzl-E-Vwmuggjmzhi Pept 67244 H, Total Protein 5.3 L, Albumin 2.8 L, Globulin 2.5, Albumin/Globulin Ratio 1.1, PT 16.7 H, INR 1.53 H, APTT 38 H, CBC w Diff MAN DIFF ORDERED, RBC 2.61 L, MCV 83.4, MCH 27.0, MCHC 32.4 L, RDW 18.5 H, MPV 7.8, Gran % 82.5 H, Lymphocytes % 11.2 L, Monocytes % 5.8, Eosinophils % 0.2, Basophils % 0.3, Absolute Granulocytes 6.6 H, Segmented Neutrophils 82 H, Band Neutrophils 1, Absolute Lymphocytes 0.9 L, Lymphocytes 12 L, Monocytes 3, Absolute Monocytes 0.5, Absolute Eosinophils 0, Basophils 1, Absolute Basophils 0, Metamyelocytes 1, Platelet Estimate ADEQUATE, Polychromasia 1+, Hypochromic-Microcytic 2+, Basophilic Stippling RARE, Anisocytosis 2+, Retic Count 2.64 H 04/10/18 1624: Syl-Y-Ftquiaxrllt Pept Cancelled Differential diagnoses include GI bleed anemia Patient upon initial presentation resting comfortably at bedside no respiratory distress however noted wheezing and crackles on exam patient had fecal occult positive brown stool, no signs of significant active bleeding blood pressure was normotensive. Due to history of present illness and exam findings patient is symptomatically anemic and has concerns of CHF of pleural effusion after chest x-ray was resulted and symptoms of shortness of breath. Discussed admission with case management discussed admission with patient who agrees Diagnostic Imaging: Viewed by Me: Radiology Read. 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 Anemia. COMPARISON: Chest radiograph 03/12/2018. TECHNIQUE: 2 views of the chest were obtained. FINDINGS: There is a small right pleural effusion. Coarse linear markings are visualized within the right lung base that may represent a manifestation of subsegmental atelectasis or scar. The cardiac silhouette is enlarged and there is hilar vascular engorgement. Mild prominent center of the interstitial markings without evidence of overt consolidation. No acute osseous finding. IMPRESSION: Cardiomegaly and mild interstitial pulmonary edema. No overt consolidative disease. There is a small right pleural effusion and subsegmental atelectasis or scar within the right lower hemithorax. DICTATED BY: Db CR,Rigo Gabriel DATE/TIME DICTATED:04/10/181735 FIRE PROTECTION SPECIALIST:LINDY (Greg Braga) Departure Departure Disposition: STILL A PATIENT Condition: Guarded Clinical Impression Primary Impression: Anemia Secondary Impressions: CHF (congestive heart failure), Chronic renal failure, COPD (chronic obstructive pulmonary disease), Fecal occult blood test positive Referrals: Ramses CR,Prabhakar Cherry (PCP/Family) Departure Forms: Customer Survey General Discharge Information Admission Note Spoke With: Marlene Cruz MD Documentation of Exam: Documentation of any treatments & extenuating circumstances including Concerns Regarding Discharge (functional status, medication knowledge or non-compliance, living conditions, etc.) that warrant an admission rather than observation: [ Patient requires IV blood transfusion, cardiology consultation and pulmonary consultation nebulizers Lasix possible echocardiogram repeat blood work GI consultation] (Greg Braga) PA/CLAIMS COLLECTOR Co-Sign Statement Statement: ED Attending supervision documentation- [X] I saw and evaluated the patient. I have also reviewed all the pertinent lab results and diagnostic results. I agree with the findings and the plan of care as documented in the PA's/CLAIMS COLLECTOR's documentation. [] I have reviewed the ED Record and agree with the PA's/CLAIMS COLLECTOR's documentation. [] Additions or exceptions (if any) to the PAs/CLAIMS COLLECTOR's note and plan are summarized below: [ Bilateral wheezing on my exam] ([place] DO) Critical Care Note Critical Care Note Critical Care Time: 30-74 min (Greg Braga)
[2018-04-10 16:43] LABS: ABSOLUTE BASOPHIL COUNT 0 /CUMM (0.0-0.2); ABSOLUTE EOSINOPHIL COUNT 0 /CUMM (0.0-0.7); ABSOLUTE GRANULOCYTE CT 6.6 /CUMM (1.4-6.5); ABSOLUTE MONOCYTE COUNT 0.5 /CUMM (0.10-0.60); BASOPHIL % 0.3 % (0.0-2.0); EOSINOPHIL % 0.2 % (0-5); GRANULOCYTE % 82.5 % (42.2-75.2); HEMATOCRIT 21.8 % (42-52)
[2018-04-10 16:47] LABS: ABSOLUTE LYMPH COUNT 0.9 /CUMM (1.2-3.4); MEAN CORPUSCULAR HGB CONC 32.4 G/DL (33.0-37.0); MEAN CORPUSCULAR VOLUME 83.4 FL (80.0-94.0); MEAN PLATELET VOLUME 7.8 FL (7.4-10.4); PLATELET COUNT 273 /CUMM (130-400); RBC DISTRIBUTION WIDTH 18.5 % (11.5-14.5); RED BLOOD CELL CT 2.61 /CUMM (4.70-6.10)
[2018-04-10 16:51] LABS: PT 16.7 SEC (9.4-12.5); PTT 38 SEC (25-37)
--- NOTE | 2018-04-10 17:47 | RADIOLOGY REPORT ---
EXAMINATION: XR CHEST CLINICAL INFORMATION: CHF. Anemia. COMPARISON: Chest radiograph 03/12/2018. TECHNIQUE: 2 views of the chest were obtained. FINDINGS: There is a small right pleural effusion. Coarse linear markings are visualized within the right lung base that may represent a manifestation of subsegmental atelectasis or scar. The cardiac silhouette is enlarged and there is hilar vascular engorgement. Mild prominent center of the interstitial markings without evidence of overt consolidation. No acute osseous finding. IMPRESSION: Cardiomegaly and mild interstitial pulmonary edema. No overt consolidative disease. There is a small right pleural effusion and subsegmental atelectasis or scar within the right lower hemithorax.
--- NOTE | 2018-04-10 20:28 | History & Physical ---
Tejal CR,Saul 04/10/182027: General Information and HPI History of Present Illness: Mr. Vieira is a 67-year-old male with past medical history of COPD on 4 L oxygen and nocturnal BiPAP followed by Dr. So, atrial fibrillation and rivaroxaban followed by Dr. Walton, diabetes mellitus, hypertension, hyperlipidemia, AAA status post repair, HFrEF (EF 30-35%), GERD, prostate cancer, and chronic kidney disease who presents from [facility] after blood work showing anemia. Of note, patient is a poor historian. He says that he has been having nasal congestion and epistaxis on and off for the past 2 weeks[address] He then saw Dr. Lord Weems and had blood work that showed he was anemia and was sent in for further evaluation. He further complains of cough, fatigue, shortness of breath all the time, and nonbloody diarrhea. He denies chest pain, nausea, vomiting, or dysuria. He is a former smoker denies alcohol or recreational drug use. Allergies/Medications Allergies: Coded Allergies: No Known Allergies (04/10/18) Home Med list Albuterol Sulfate (Proair Hfa) 90 MCG HFA.AER.AD 2 PUF INH Q4-6 PRN PRN SHORTNESS OF BREATH (Reported) Albuterol Sulfate 2.5 MG/3 ML (0.083 %) VIAL.NEB 1 Vial INH/ABILIO Q4P PRN SHORTNESS OF BREATH (Reported) Budesonide/Formoterol Fumarate (Symbicort 160-4.5 Mcg Inhaler) 160 MCG-4.5 MCG/ ACTUATION HFA.AER.AD 2 PUF INH BID SHORTNESS OF BREATH (Reported) Cyanocobalamin (Vitamin B-12) (B-12) 1,000 MCG TABLET 1 TAB PO DAILY VITAMIN SUPPORT (Reported) Digoxin (Lanoxin) 125 MCG TABLET 1 TAB PO Q48@1700 AFIB Diltiazem HCl (Cardizem Cd) 240 MG CAP.ER.24H 240 MG PO DAILY ATRIAL FIB Ferrous Sulfate 325 MG TABLET.DR 325 MG PO BID Iron supplement Furosemide (Lasix) 80 MG TABLET 1 TAB PO BID CHF Hydralazine HCl 10 MG TABLET 1 TAB PO BID HTN Insulin Aspart (Novolog) (Unknown Strength) VIAL (Unknown Dose) SC SEE SLIDING SCALE DIABETES (Reported) Insulin Detemir (Levemir) 100 UNIT/ML VIAL 10 UNITS SC 0900 DM Insulin Detemir (Levemir) 100 UNIT/ML VIAL 8 UNITS SC AT BEDTIME DM Loperamide HCl (Loperamide) 2 MG CAPSULE 2 CAP PO BID PRN ANTI-DIARRHEAL ( Reported) Metoprolol Tartrate 25 MG TABLET 1 TAB PO BID AFIB Mometasone Furoate (Nasonex) 50 MCG SPRAY.PUMP 1 SPRAY [place]B DAILY ALLERGIES ( Reported) Morphine Sulfate (Morphine Sulfate Elixir 10mg/5ml) 10 MG/5 ML SOLUTION 2.5 MG PO Q2P PRN UNKNOWN (Reported) Morphine Sulfate (Morphine Sulfate Elixir 10mg/5ml) 10 MG/5 ML SOLUTION 2.5 MG PO Q2P PRN SHORTNESS OF BREATH Oxycodone HCl/Acetaminophen (Percocet 5-325 MG Tablet) 5 MG-325 MG TABLET 1-2 TAB PO Q4-6 PRN PAIN tylenol alternatively. do not combine. Pantoprazole Sodium (Protonix) 40 MG TABLET.DR 1 TAB PO DAILY ACID REFLUX ( Reported) Prednisone 10 MG TABLET 1 TAB PO DAILY COPD (Reported) Rivaroxaban (Xarelto) 15 MG TABLET 1 TAB PO 1900 AFIB Tiotropium Inez (Spiriva) 18 MCG CAP.W.DEV 1 CAP INH DAILY SHORTNESS OF BREATH (Reported) Past History Travel History Traveled to [place] past 21 day No Medical History Neurological: TIA 2010 EENT: cataracts Cardiovascular: AFIB, CHF, hypertension, hyperlipidemia Respiratory: COPD, 4L O2 DEPENDENT BIPAP AT NIGHT Gastrointestinal: GERD, ABD ANEURYSM Hepatic: NONE Renal: NONE Musculoskeletal: NONE Psychiatric: NONE Blood Disorders: NONE Cancer(s): prostate cancer MUSIC INTERNSHIP/Reproductive: NONE History of MRSA: Yes History of VRE: No History of CDIFF: No Tetanus Vaccine: 01/21/18 Surgical History Surgical History: cataract removal, PROSTATE SURGERY AAA REPAIR TONSILLECTOMY Endovascular AAA repair endovascular abdominal aortic aneurysm repair Past Family/Social History Family History Relations & Conditions if any MOTHER, ; Cause: COPD (chronic obstructive pulmonary disease). FATHER, ; Cause: Myocardial infarct. SISTER, ; Cause: Myocardial infarct. Psychosocial History Who Do You Live With? self Services at Home: None Primary Language: Icelandic Living Will? unknown Power of Top Icer/HCP? unknown Functional Ability ADLs Independent: dressing, eating, toileting, bathing. Ambulation: independent IADLs Independent: shopping, housework, finances, food prep, telephone, transportation , medication admin. Review of Systems Review of Systems Constitutional: Reports: no symptoms. EENTM: Reports: see HPI. Cardiovascular: Reports: no symptoms. Respiratory: Reports: see HPI. GI: Reports: no symptoms. Genitourinary: Reports: no symptoms. Musculoskeletal: Reports: no symptoms. Skin: Reports: no symptoms. Neurological/Psychological: Reports: no symptoms. Hematologic/Endocrine: Reports: no symptoms. Immunologic/Allergic: Reports: no symptoms. All Other Systems: Reviewed and Negative Exam & Diagnostic Data Last 24 Hrs of Vital Signs/I&O Vital Signs Date Time Temp Pulse Resp B/P B/P Pulse O2 O2 Flow FiO2 Mean Ox Delivery Rate 04/107 Nasal 5.0L Cannula 04/10 1922 98.4 83 20 125/61 94 Nasal 5.0L Cannula 04/10 1817 89 Nasal 5.0L Cannula 04/10 1559 98.2 80 20 134/70 91 Nasal 4.0L Cannula Intake & Output 04/10 1600 04/10 0800 04/10 0000 Intake Total 0 Output Total Balance 0 Intake, Oral 0 Patient 79.832 kg Weight Physical Exam General Appearance Alert, Oriented X3, Cooperative, No Acute Distress Skin No Rashes HEENT Atraumatic, PERRLA, EOMI Cardiovascular irregular Lungs mild wheezing Abdomen Normal Bowel Sounds, Soft, No Tenderness Neurological Normal Speech Extremities 3+ pitting edema bilaterally Last 24 Hrs of Labs/Sridhar: Laboratory Tests 04/10/18 1634: Anion Gap 11, Estimated GFR 33 L, BUN/Creatinine Ratio 31.5 H, Glucose 54 L, Calcium 8.3 L, Total Bilirubin 0.5, AST 14 L, ALT 22, Alkaline Phosphatase 84, Troponin I 0.03, Flf-Y-Vgrhtqcivwb Pept 17076 H, Total Protein 5.3 L, Albumin 2.8 L, Globulin 2.5, Albumin/Globulin Ratio 1.1, PT 16.7 H, INR 1.53 H, APTT 38 H, CBC w Diff NO MAN DIFF REQ, RBC 2.61 L, MCV 83.4, MCH 27.0, MCHC 32.4 L , RDW 18.5 H, MPV 7.8, Gran % 82.5 H, Lymphocytes % 11.2 L, Monocytes % 5.8, Eosinophils % 0.2, Basophils % 0.3, Absolute Granulocytes 6.6 H, Absolute Lymphocytes 0.9 L, Absolute Monocytes 0.5, Absolute Eosinophils 0, Absolute Basophils 0 04/10/18 1624: Adh-Y-Lwdjlxrnvcl Pept Cancelled Assessment/Plan Assessment: Mr. Vieira is a 67-year-old male with past medical history of COPD on 4 L oxygen and nocturnal BiPAP followed by Dr. So, atrial fibrillation and rivaroxaban followed by Dr. Walton, diabetes mellitus, hypertension, hyperlipidemia, AAA status post repair, HFrEF (EF 30-35%), GERD, prostate cancer, and chronic kidney disease who presents from [facility] after blood work showing anemia. On presentation, vital signs were T 98.2, HR 80, RR 20, BP 134/70, saturating 91 % on 4 L oxygen. Laboratories were significant for hemoglobin 7.0, MCV 83.4, chloride 86, carbon dioxide 41, BUN 63, creatinine 2.0 (baseline 2.0), calcium 8.3, albumin 2.8, LFTs negative, troponin 0 0.03, BNP 14,000, INR 1.53. Chest x -ray showed pulmonary edema and right-sided effusion. He will be admitted to telemetry and treated for the following problems: 1. Symptomatic anemia 2. Chronic respiratory failure 3. Small right-sided pleural effusion #Symptomatic anemia: Patient has been having epistaxis recently, unclear if this is the etiology of his anemia. He is also on anticoagulation. -Transfuse 1 unit packed red blood cell -Continue home furosemide -Guaiac all stools -Reticulocyte count, LDH, haptoglobin, iron studies, peripheral smear, B12, folate -Consider GI consult #Small right-sided pleural effusion: Unlikely to be able to tap this. -Continue to monitor #Chronic medical problems: -Continue other home medications DVT prophylaxis with heparin Heart healthy consistent carbohydrate diet DNR/okay to intubate As Ranked By This Provider Problem List: 1. Symptomatic anemia Core Measures/Misc (08/06) Acute Coronary Syndrome ACS Diagnosis: No Congestive Heart Failure Congestive Heart Failure Diagnosis No Cerebrovascular Accident CVA/TIA Diagnosis: No VTE (View Protocol) VTE Risk Factors Age>40 No Mechanical VTE Prophylaxis d/t N/A MechProphylax Ordered No VTE Pharm Prophylaxis d/t NA PharmProphylax ordered Sepsis (View protocol) Sepsis Present: No If YES complete Sepsis Event Note If YES complete Sepsis Event Note Link Villegas MD 04/10/182028: Core Measures/Misc (08/06) Sepsis (View protocol) If YES complete Sepsis Event Note If YES complete Sepsis Event Note Resident Review Statement Resident Statement: examined this patient, discussed with hospital intern, agreed with hospital intern, discussed with family, reviewed EMR data (avail), discussed with nursing , reviewed images, amended to note Other Findings: 67 yo M with pmh of COPD on 4 L home oxygen, nocturnal BiPAP, A. fib on Xarelto, diabetes mellitus, hypertension, hyperlipidemia, AAA repair, CHF with reduced ejection fraction (30-35% on 03/07), and had a recent admission from 02/27/2018 to 03/16/2018 here, for acute hypoxic respiratory failure secondary to COPD and CHF exacerbation, discharged to [facility] for rehabilitation who sent the patient for a low H&H in the routine blood work. The patient denies any bright red blood per rectum, black stool, bleeding for anywhere else in the body, increased number of bruises, jaundice, fever, chills, worsening shortness of breath, chest pain, abdominal pain, nausea, vomiting. Of note, he gives history of frequent nasal congestion and bleeding as well, but not severe and always self-limiting. VSS, on NC, no acute bleeding, received 60 mg of IV Lasix in the ED as he takes 80 mg of Lasix daily at home. He does not have any signs of CHF exacerbation, or bleeding. He had bilateral wheezing over chest. Rest of the exam as noted above. Imaging as noted above. He is being monitored and the telemetry floor for the management of following issues: #Acute on chronic blood loss anemia, requiring blood transfusion Patient presented with H&H of 06/09 today, while about 3 weeks ago his last H&H was 7.3/22.6. He is on oral iron therapy, and apparently has been eating and drinking well recently. He does not have any stigmata of bleeding currently, and labworks for anemia workup is pending. If his Fe studies show Fe deficinecy, oral Fe therapy might be the cause of anemia given his low normal MCV. * Given his extensive cardiac history, will admit the patient in telemetry * HOLD Eliquis * Blood transfusion ordered by the emergency department, since the patient has been reported to have antibodies, thus blood transfusion will take a while for processing * Patient is Lasix dependent, thus might require IV Lasix after transfusion, will reassess * Follow-up labs: Iron studies, LFT, LDH, reticulocyte count, peripheral smear, haptoglobin. * Further imaging has not been noted today. Will reassess according to the above mentioned labworks. * Will hold off on calling heme consult, pending further results/progress #Will continue rest of his meds. #Housekeeping: Diet: CC1 DVT ppx: ALPS only for now, ?bleeding Code status: DNR but OK with intubation (spoke to his [place] with permission, as patient mentioned that decision will be per [place], also noted he was DNR in his last admission) NancyDebomelanie 04/11/18 0345: Core Measures/Misc (08/06) Sepsis (View protocol) If YES complete Sepsis Event Note If YES complete Sepsis Event Note Attending MD Review Statement Attending Statement Attending MD Statement: examined this patient, discuss w/resident/PA/ELECTRIC MOTORMAN, agreed w/resident/PA/ELECTRIC MOTORMAN, reviewed EMR data (avail), reviewed images, amended to note Attending Assessment/Plan: CC: Low Blood counts PMH: COPD on 4 L nasal cannula, nighttime BiPAP, DM, HTN, TIA, A. fib, HFrEF (EF 30%), abdominal aortic aneurysm S/P repair and recent extension of aortic prosthesis on February 01 Patient was discharged to [facility] from hospital on March 16 after prolonged hospitalization for heart failure, COPD exacerbation, pneumonia. Patient is recovering slowly at [facility] but still feels short of breath., His functionality has not been improved much, feels chronically nasal congestion, intermittent epistaxis, chronic fatigue. His cough and shortness of breath has not improved much. But denies any chest pain, nausea, vomiting, dysuria. Patient was seen in ER on March 22 for anemia, patient received 2 unit PRBC. Today patient again underwent routine labs when his blood count was found low again and he was sent to ER. Patient has chronic anemia and takes iron supplementation at home. He denies any bloody stool or black colored stool, vomiting blurred, hematuria. No other blood loss sources other than epistaxis. He does not recall when was his colonoscopy. Vitals: Temperature 98.2, pulse 80, RR 20, blood pressure 134/70, saturating 91% on 5 L nasal cannula On exam: A O 3, cooperative, no acute distress, neck supple, JVD normal, no lymphadenopathy, mucosa moist, no focal neurological deficit, +3 leg edema, small bruises and superficial skin breakdowns on extremities CVS: S1-S2, is regular. RS: Markedly diminished air entry with wheezing. Abdomen: Soft, NT, ND, bowel sounds present. Rectal examination done by ER provider: Occult blood positive but no renny blood. CXR: Cardiomegaly and mild interstitial pulmonary edema. No overt consolidative disease. There is a small right pleural effusion and subsegmental atelectasis or scar within the right lower hemithorax. Assessment and plan 67-year-old male with extensive medical problems as mentioned above presented in ER after routine blood work which showed low H&H. Patient appears to have acute on chronic anemia exact source of bleeding is unclear. We'll transfuse 1 unit PRBC. He received 2 unit PRBC on March 22. Patient has chronic symptoms of shortness of breath, dyspnea on exertion, chronic cough which is unchanged from baseline. No chest pain or dizziness. His anemia needs further evaluation to rule out iron deficiency versus anemia of chronic disease versus anemia secondary to CKD. He is currently on iron supplementation. Given his history and heart failure, requiring blood transfusion, we will monitor him on telemetry floor for any arrhythmias or volume overload. Patient received 60 mg IV Lasix in ER. We'll resume his by mouth Lasix from a.m. + Acute on chronic anemia + History of COPD on 4 L nasal cannula, nighttime BiPAP, DM, HTN, TIA, A. fib, HFrEF (EF 30%), abdominal aortic aneurysm S/P repair and recent extension of aortic prosthesis on February 01 - Admit to telemetry - Transfuse 1 unit PRBC - Repeat labs in a.m. - Add reticulocyte count, iron, TIBC, ferritin, called panel, haptoglobin, peripheral smear, B12, folic acid to the sample and lab - Continue all his home medications : Continue Eliquis and aspirin
[2018-04-10 21:30] VITALS: BP 124/62
--- NOTE | 2018-04-11 03:46 | Admission Certification ---
Admission Certification Certification Statement - As attending physician, I certify that at the time of - admission, based on clinical presentation, severity of - symptoms, need for further diagnostic testing and - therapeutic interventions, and risk of adverse outcomes - without in-hospital treatment, in my clinical assessment, - this patient requires an acute hospital stay for a minimum - of two nights or longer. I have also considered psychsocial - factors such as support system, advanced age, financial - issues, cognitive issues, and failed out-patient treatments, - past re-admission history, safety of patient, and lack of - compliance as applicable. Specific rationale supporting this admission is: Anemia
[2018-04-11 07:05] VITALS: BP 118/60
--- NOTE | 2018-04-11 07:45 | PN- Housestaff ---
Patsy Leonard 04/11/18 0745: Subjective Follow-up For: acute on chronic blood loss anemia bronchitis Complaints: c/s continuous scough Subjective: I have seen and examiend the patient today pepito. We addressed all his questions in detail He requested for cough syrup with codeien as that helps him. Review of Systems Constitutional: Reports: see HPI. Objective Last 24 Hrs of Vital Signs/I&O Vital Signs Date Time Temp Pulse Resp B/P B/P Pulse O2 O2 Flow FiO2 Mean Ox Delivery Rate 04/11 1643 85 Nasal 4.0L Cannula 04/11 1600 62 108/70 04/11 1600 90 Nasal 4.5L Cannula 04/11 1433 98.3 77 18 122/60 93 Nasal Cannula 04/11 0912 94 04/11 0912 94 Nasal 4.0L Cannula 04/11 0800 Nasal 5.0L Cannula 04/11 0747 64 118/60 04/11 0747 64 118/60 04/11 0705 97.8 64 18 118/60 93 Nasal 5.0L Cannula 04/11 0530 69 92 04/11 0337 68 97 04/11 0126 77 94 04/11 0058 76 124/62 04/11 0058 76 124/62 04/11 0043 77 92 04/10 2206 Nasal 5.0L Cannula 04/10 2130 98.8 80 18 124/62 98 Nasal 5.0L Cannula 04/10 2107 Nasal 5.0L Cannula 04/10 1922 98.4 83 20 125/61 94 Nasal 5.0L Cannula 04/10 1817 89 Nasal 5.0L Cannula Intake & Output 04/11 1600 04/11 0800 04/11 0000 Intake Total 550 Output Total 325 200 600 Balance 225 -200 -600 Intake, Oral 550 Number 3 Bowel Movements Output, Urine 325 200 600 Patient 81.221 kg Weight Weight Bed scale Measurement Method Physical Exam General Appearance: Alert, Oriented X3, Mild Distress Skin: No Rashes, No Breakdown Cardiovascular: Normal S1, Normal S2, No Murmurs Lungs: b/l basal crackles, congested chest Abdomen: Normal Bowel Sounds, Soft, No Tenderness Extremities: No Clubbing, No Cyanosis, No Edema, Normal Pulses Vascular: Normal Pulses Current Medications: Current Medications Sig/Eve Start time Last Medication Dose Route Stop Time Status Admin Albuterol Sulfate 3 ML EVERY 4 HRS/AWAKE 04/11 0800 AC 04/11 INH 1639 Albuterol Sulfate 3 ML ONCE ONE 04/10 1800 DC 04/10 INH 04/10 1801 1817 Budesonide/ 2 PUF BID 04/10 2210 AC 04/11 Formoterol Fumarate INH 0751 Cyanocobalamin 1,000 MCG DAILY 04/11 0900 AC 04/11 PO 0747 Digoxin 0.125 MG Q48@1700 04/12 1700 AC PO Diltiazem HCl 240 MG DAILY 04/11 0900 AC 04/11 PO 0747 Ferrous Sulfate 325 MG TID 04/11 0900 AC 04/11 PO 1420 Ferrous Sulfate 325 MG BID 04/10 221 DC 04/11 PO 0058 Furosemide 80 MG 7:30 AM, & 4:30 PM 04/11 07 AC 04/11 PO 1548 Furosemide 0 .STK-MED ONE 04/10 1805 DC IV Furosemide 60 MG ONCE ONE 04/10 1800 DC 04/10 IV 04/10 1801 1801 Guaifenesin/ 10 ML Q6P PRN 04/11 1415 AC 04/11 Dextromethorphan PO 1421 Hydralazine HCl 10 MG BID 04/10 221 AC 04/11 PO 0747 Insulin Aspart 0 AT BEDTIME 04/11 2100 AC SC Insulin Aspart 0 TIDAC 04/11 0800 AC 04/11 SC 1655 Insulin Detemir 8 UNITS AT BEDTIME 04/11 2100 AC SC Insulin Detemir 10 UNITS 0900 04/11 0900 AC 04/11 SC 0746 Ipratropium [place] 2.5 ML ONCE ONE 04/10 1800 DC 04/10 INH 04/10 1801 1816 Metoprolol Tartrate 25 MG BID 04/10 221 AC 04/11 PO 0747 Morphine Sulfate 2.5 MG Q2P PRN 04/10 221 AC PO Omeprazole 40 MG DAILY AC 04/11 0700 AC 04/11 PO 0747 Oxycodone/ 2 TAB Q4-6 PRN 04/10 2245 AC Acetaminophen PO Oxycodone/ 1 TAB Q4-6 PRN 04/10 2215 AC Acetaminophen PO Prednisone 10 MG DAILY 04/11 0900 AC 04/11 PO 0747 Rivaroxaban 15 MG AT BEDTIME 04/11 2100 AC PO Rivaroxaban 15 MG 1900 04/11 1900 CAN PO Sodium Chloride 2 SPRAY Q4P PRN 04/10 2215 AC 04/11 CESAR 0059 Tiotropium [place] 1 PUF DAILY 04/11 0900 AC 04/11 INH 0752 Last 24 Hrs of Lab/Sridhar Results Last 24 Hrs of Labs/Mics: Laboratory Tests 04/11/18 0625: Anion Gap 9, Estimated GFR 33 L, BUN/Creatinine Ratio 25.0, CBC w Diff NO MAN DIFF REQ, RBC 2.76 L, MCV 86.4, MCH 27.7, MCHC 32.1 L, RDW 17.7 H, MPV 8.2, Gran % 80.4 H, Lymphocytes % 13.2 L, Monocytes % 6.0, Eosinophils % 0.1, Basophils % 0.3, Absolute Granulocytes 5.8, Absolute Lymphocytes 1.0 L, Absolute Monocytes 0.4, Absolute Eosinophils 0, Absolute Basophils 0 Lines/Diet/Fluids Restraints: none Assessment/Plan Assessment: This is 67 yo M with pmh of COPD on 4 L home oxygen, nocturnal BiPAP, A. fib on Xarelto, diabetes mellitus, hypertension, hyperlipidemia, AAA repair, CHF with reduced ejection fraction (30-35% on 03/07), and had a recent admission from 02/27 to 03/16/2018 here, for acute hypoxic respiratory failure secondary to COPD and CHF exacerbation, discharged to [facility] for rehabilitation who sent the patient for a low H&H in the routine blood work. VSAnnalisa, on NC, no acute bleeding, received 60 mg of IV Lasix in the ED as he takes 80 mg of Lasix daily at home. He does not have any signs of CHF exacerbation, or bleeding. He had bilateral wheezing over chest. Rest of the exam as noted above. Imaging as noted above. He is being monitored and the telemetry floor for the management of following issues: #Acute on chronic blood loss anemia, requiring blood transfusion * Patient presented with H&H of 06/09 today, while about 3 weeks ago his last H&H was 7.3/22.6, today morning noted to be 7.7/23.9 s/p 1 BT * ct oral iron therapy * He does not have any stigmata of bleeding currently,however he is guaiac positive. * Ct to HOLD Eliquis * s/p 1 BT * Patient is Lasix dependent, thus might require IV Lasix after transfusion, will reassess * ct to follow - Iron studies, LFT, LDH, reticulocyte count, peripheral smear, haptoglobin. #Small right-sided pleural effusion: Unlikely to be able to tap this. * Continue to monitor # COPD on 4 Liters nasal cannula. * ct o2 to maintain o2 sats > 92% all the time. ####Continue other home medications DVT prophylaxis with heparin Heart healthy consistent carbohydrate diet DNR/okay to intubate Problem List: 1. COPD (chronic obstructive pulmonary disease) 2. Symptomatic anemia 3. Chronic renal failure 4. Fecal occult blood test positive 5. Chronic anemia 6. Acute respiratory failure with hypoxia 7. [place] (acute kidney injury) Pain Ratin Pain Location: none Pain Goal: Remain pain free Pain Plan: current plan Tomorrow's Labs & Rationales: cbc RadhaSangeeta 04/11/18 1303: Attending MD Review Statement Attending Statement Attending MD Statement: examined this patient, discuss w/resident/PA/EXECUTIVE DIRECTOR, agreed w/resident/PA/EXECUTIVE DIRECTOR, discussed with family, reviewed EMR data (avail), discussed with nursing, discussed with case mgmt, reviewed images, amended to note Attending Assessment/Plan: Patient with pmh of chronic respiratroy failure complicated with COPD exacerbation and possible gram negative pneumonia with contrast induced nephropathy with new baseline kidney function with afib on xarelto and anemia from his kidney disease. Patient brought to ER for low h/h. Patient on iron pills at STR. Guaic positive but on iron pills. Patient admitted here with anemia likely from chronic kidney disease. Hemodynacmially stable. He received blood transfusion on presentation. Serial monitoring of cbc. transfuse as needed. Overall prognosis remains guarded. He remians high risk of readmision. Obtain PT consult and possible STR discharge. gi/dvt prophylaxis, DNR but intubation as per family wishes in past.
[2018-04-11 08:51] LABS: ABSOLUTE BASOPHIL COUNT 0 /CUMM (0.0-0.2); ABSOLUTE EOSINOPHIL COUNT 0 /CUMM (0.0-0.7); ABSOLUTE GRANULOCYTE CT 5.8 /CUMM (1.4-6.5); ABSOLUTE MONOCYTE COUNT 0.4 /CUMM (0.10-0.60); BASOPHIL % 0.3 % (0.0-2.0); EOSINOPHIL % 0.1 % (0-5); GRANULOCYTE % 80.4 % (42.2-75.2); HEMATOCRIT 23.9 % (42-52); MEAN CORPUSCULAR HGB 27.7 PG (27.0-31.0); MEAN CORPUSCULAR HGB CONC 32.1 G/DL (33.0-37.0); MEAN CORPUSCULAR VOLUME 86.4 FL (80.0-94.0); MEAN PLATELET VOLUME 8.2 FL (7.4-10.4); PLATELET COUNT 261 /CUMM (130-400); RBC DISTRIBUTION WIDTH 17.7 % (11.5-14.5); RED BLOOD CELL CT 2.76 /CUMM (4.70-6.10); WHITE BLOOD CELL COUNT 7.3 /CUMM (4.8-10.8)
[2018-04-11 14:33] VITALS: BP 122/60
[2018-04-11 16:00] VITALS: BP 108/70
[2018-04-11 22:41] VITALS: BP 118/64
--- NOTE | 2018-04-12 06:28 | PN- Housestaff ---
Patsy Leonard 04/12/18 0628: Subjective Follow-up For: -Acute on chronic blood loss anemia -Bronchitis -b/l plueral effusion -COPD Complaints: no complaints Tele-Events Since Last Visit: a fib 67 to 82, BBB Subjective: I have seen and examined the patient today morning. He seemed to be in mild distress, continues to be irritated due to his coughing, his oxygen was changed to humidified oxygen however he continues to have epistaxis, a couple of times when he blows his nose there was mild to moderate amount of blood along with sputum production. He also was found to have guaiac- positive stool and a drop in hemoglobin to 6.7 today morning, we will consult GI to look for any occult blood loss especially from the GI origin. We will transfuse him to maintain the hemoglobin about 8. Review of Systems Constitutional: Reports: see HPI. Objective Last 24 Hrs of Vital Signs/I&O Vital Signs Date Time Temp Pulse Resp B/P B/P Pulse O2 O2 Flow FiO2 Mean Ox Delivery Rate 04/12 1434 98.2 60 20 112/78 89 Nasal Cannula 04/12 1148 95 Nasal 4.0L Cannula 04/12 0920 124/68 04/12 0920 124/68 04/12 0800 94 Nasal 5.0L Cannula 04/12 0715 66 94 04/12 0647 97.9 64 22 12468 97 Nasal 4.0L Cannula 04/12 0539 52 98 04/12 0303 67 97 04/12 0006 71 96 04/11 2259 95 Nasal 5.0L Cannula 04/11 2241 98.0 76 22 118/64 95 Nasal 4.0L Cannula 04/11 2133 70 95 04/11 2040 76 118/64 04/11 2039 76 118/64 04/11 1643 85 Nasal 4.0L Cannula 04/11 1600 62 108/70 04/11 1600 90 Nasal 4.5L Cannula Intake & Output 04/12 1600 04/12 0800 04/12 0000 Intake Total 500 220 220 Output Total 600 150 Balance -100 220 70 Intake, IV 500 Intake, Oral 220 220 Number 1 1 Bowel Movements Output, Urine 600 150 Patient 83.149 kg Weight Weight Bed scale Measurement Method Physical Exam General Appearance: Alert, Oriented X3, Mild Distress, irritable Skin: pallor Skin Temp/Moisture Exam: Warm/Dry HEENT: Atraumatic, PERRLA, EOMI Cardiovascular: Normal S1, Normal S2, No Murmurs Lungs: Normal Air Movement Abdomen: Normal Bowel Sounds, Soft, No Tenderness Neurological: Strength at 5/5 X4 Ext, Normal Tone, Sensation Intact, Cranial Nerves 3-12 NL Extremities: No Clubbing, No Cyanosis, No Edema, Normal Pulses Current Medications: Current Medications Sig/Eve Start time Last Medication Dose Route Stop Time Status Admin Albuterol Sulfate 3 ML EVERY 4 HRS/AWAKE 04/11 08 AC 04/12 INH 1151 Budesonide/ 2 PUF BID 04/10 2210 04/12 Formoterol Fumarate INH 0920 Cyanocobalamin 1,000 MCG DAILY 04/11 09 04/12 PO 0920 Digoxin 0.125 MG Q48@1700 04/12 1700 AC PO Diltiazem HCl 240 MG DAILY 04/11 09 04/12 PO 0920 Ferrous Sulfate 325 MG TID 04/11 09 04/12 PO 1306 Fluticasone 2 SPRAY DAILY 04/12 1437 AC Propionate CESAR Furosemide 40 MG ONCE ONE 04/12 1245 DC 04/12 IV 04/12 1246 1306 Furosemide 80 MG 7:30 AM, & 4:30 PM 04/11 0730 04/12 PO 0719 Guaifenesin/ 10 ML Q6P PRN 04/11 1415 04/12 Dextromethorphan PO 1043 Hydralazine HCl 10 MG BID 04/10 2211 04/12 PO 0920 Insulin Aspart 0 AT BEDTIME 04/11 2100 SC Insulin Aspart 0 TIDAC 04/11 08 04/12 KS 1213 Insulin Detemir 8 UNITS AT BEDTIME 04/11 2100 04/11 KS 2041 Insulin Detemir 10 UNITS 0904/11 0900 04/12 SC 0931 Metoprolol Tartrate 25 MG BID 04/10 2212 04/12 PO 0920 Morphine Sulfate 2.5 MG Q2P PRN 04/10 2215 PO Omeprazole 40 MG DAILY AC 04/11 07 04/12 PO 0717 Oxycodone/ 2 TAB Q4-6 PRN 04/10 2245 AC Acetaminophen PO Oxycodone/ 1 TAB Q4-6 PRN 05/22 2215 AC Acetaminophen PO Prednisone 10 MG DAILY 04/11 0900 AC 04/12 PO 0920 Rivaroxaban 15 MG AT BEDTIME 04/11 2100 DC 04/11 PO 2038 Sodium Chloride 2 SPRAY Q4P PRN 04/10 2215 AC 04/11 CESAR 0059 Tiotropium [place] 1 PUF DAILY 04/11 0900 AC 04/12 INH 0920 Last 24 Hrs of Lab/Sridhar Results Last 24 Hrs of Labs/Mics: Laboratory Tests 04/12/18 0651: Anion Gap 8, Estimated GFR 28 L, BUN/Creatinine Ratio 21.7, CBC w Diff NO MAN DIFF REQ, RBC 2.35 L, MCV 85.3, MCH 28.4, MCHC 33.3, RDW 17.5 H, MPV 7.8, Gran % 79.1 H, Lymphocytes % 13.4 L, Monocytes % 7.1, Eosinophils % 0.1, Basophils % 0.3, Absolute Granulocytes 4.9, Absolute Lymphocytes 0.8 L, Absolute Monocytes 0.4, Absolute Eosinophils 0, Absolute Basophils 0 Microbiology 04/12 1454 LOWER RESP: Respiratory Culture - RECD 04/12 145 LOWER RESP: Gram Stain - RECD Lines/Diet/Fluids Restraints: none Assessment/Plan Assessment: Mr. Vieira is a 67-year-old male with past medical history of COPD on 4 L of home oxygen, nocturnal BiPAP, atrial fibrillation on Xarelto, diabetes mellitus, hypertension, hyperlipidemia, abdominal aortic aneurysm repair, CHF with reduced EF 30-35% on 418 with a recent admission from 02/27/2018 to 03/16/2018 for acute hypoxic respiratory failure secondary to COPD and CHF exacerbation and discharged to [facility], brought him back again due to low H&H during routine lab work. Problem list along segment and plan. Problem #1 acute on chronic blood loss anemia requiring blood transfusion. * His baseline hemoglobin was found to be 8.0, however when he came in his hemoglobin was found to be 7.0, he was transfused 1 unit of packed red cell however today morning his hemoglobin again dropped to 6.7, he was found to be guaiac positive, GI was consulted. * GI consult appreciated. * Recommendation to optimize transfused to maintain hemoglobin above 8. * Eventual plan for outpatient EGD/colonoscopy. * No active source of bleeding found. * Will repeat CBC after 2 units of blood transfusion today. * As the patient is very susceptible to fluid overload, 40 mg of IV Lasix was given after first transfusion and needs to be given after second transfusion as well to prevent fluid overload. * Continue PPI * Continue to monitor for any blood loss closely. * Continue to monitor her vitals. * Notified GI for major acute blood loss. * ct ferrous sulfate for iron deficiency. * please hold xarelto * touch based with cardiology Dr. Walton about stopping Xarelto, as the patient is actively bleeding for now we will hold Xarelto and reevaluate on daily basis. * DVT px with ALPS #2 Small right-sided pleural effusion. * Continue to monitor respiratory status, if symptoms worsen repeat chest x-ray to see if the pleural effusion is tappable at this point no plan for tapping. #3 COPD on 4 L of nasal cannula. * Continue home medications of [facility] nebs. * Continue to supplement oxygen to maintain saturations above 92% * flonase started. #4 Diabetes Mellitus. * Continue 8 units of Levemir at bedtime. * Continue to monitor fingerstick. * Continue NovoLog sliding scale. * Consistent carbohydrate diet. #5 HTN * Continue hydralazine 10 mg twice a day. * Continue Lopressor 25 mg twice a day. * Continue Cardizem 240 mg daily. #6 Epistaxis * Patient continues to have intermittent epistaxis, mild to moderate blood loss on and off. * Continue to use oxygen in humidified form. * Continue to use nasal saline. * Continue Flonase. * Continue to monitor H&H. * We will try obtain xray sinus to rule out traumatic injury FC DVT prophylaxis with ALPs, hole xorelto Heart healthy consistent carbohydrate diet DNR/okay to intubate Problem List: 1. Symptomatic anemia 2. Chronic renal failure 3. Fecal occult blood test positive 4. Chronic anemia 5. Diabetes mellitus Pain Ratin Pain Location: none Pain Goal: Remain pain free Pain Plan: .. Tomorrow's Labs & Rationales: Sangeeta Aguiar 04/12/18 1335: Attending MD Review Statement Attending Statement Attending MD Statement: examined this patient, discuss w/resident/PA/PEDIGREE RESEARCHER, agreed w/resident/PA/PEDIGREE RESEARCHER, discussed with family, reviewed EMR data (avail), discussed with nursing, discussed with case mgmt, reviewed images, amended to note Attending Assessment/Plan: Patient with pmh of CHF systolic heart failure EF 35%, chronic respiratroy failure complicated with COPD exacerbation and possible gram negative pneumonia with contrast induced nephropathy with new baseline kidney function with afib on xarelto and chronic anemia from his kidney disease. Patient brought to ER for low h/h. Patient on iron pills at STR. Guaic positive but on iron pills. Patient admitted here with anemia likely from chronic kidney disease possible acute blood loss from epistaxis rule out GI bleed. He received blood transfusion on presentation with drop in hematocrit this morning. Hemodynamically stable. Patient c/o epistaxis on and off, now on humidifier, baseline O2 4l supplementation. c/o sinus issues. Obtain xray sinus. Patient is being given 2nd unit of PRBC today, recheck hb later, also give iv lasix alongwith transfusion. Give slow transfusion to avoid fluid overload. Transfuse as needed keep hb 7-8. Obtain cardiology and GI consult. HOLD XARELTO for now. Also send sputum sample. Overall prognosis remains guarded. He remains high risk of readmision. PT consult and possible STR discharge. gi/dvt prophylaxis, DNR but intubation as per family wishes in past.
[2018-04-12 06:47] VITALS: BP 124/68
[2018-04-12 07:51] LABS: ABSOLUTE BASOPHIL COUNT 0 /CUMM (0.0-0.2); ABSOLUTE EOSINOPHIL COUNT 0 /CUMM (0.0-0.7); ABSOLUTE GRANULOCYTE CT 4.9 /CUMM (1.4-6.5); ABSOLUTE LYMPH COUNT 0.8 /CUMM (1.2-3.4); ABSOLUTE MONOCYTE COUNT 0.4 /CUMM (0.10-0.60); BASOPHIL % 0.3 % (0.0-2.0); EOSINOPHIL % 0.1 % (0-5); GRANULOCYTE % 79.1 % (42.2-75.2); MEAN CORPUSCULAR HGB 28.4 PG (27.0-31.0); MEAN CORPUSCULAR HGB CONC 33.3 G/DL (33.0-37.0); MEAN CORPUSCULAR VOLUME 85.3 FL (80.0-94.0); MEAN PLATELET VOLUME 7.8 FL (7.4-10.4); PLATELET COUNT 217 /CUMM (130-400); RBC DISTRIBUTION WIDTH 17.5 % (11.5-14.5); RED BLOOD CELL CT 2.35 /CUMM (4.70-6.10); WHITE BLOOD CELL COUNT 6.1 /CUMM (4.8-10.8)
--- NOTE | 2018-04-12 13:28 | Cons- Gastroenterology ---
General Information and HPI Consulting Request Date of Consult: 04/12/18 Requested By: Sangeeta Garcia MD Reason for Consult: Anemia, guaiac postive stool Source of Information: patient, old records Exam Limitations: poor historian History of Present Illness: Mr. Vieira is a 67 year old male with multiple medical problems including COPD on 4 L oxygen and nocturnal BiPAP, atrial fibrillation and rivaroxaban, diabetes mellitus, hypertension, hyperlipidemia, AAA status post repair, CHF (EF 30-35%), GERD, prostate cancer, and chronic kidney disease who was sent in from [facility] after being found to be anemic. He notes some nasal congestion and also reports nose bleeds over the previous few weeks. He complains of some loose stool which is not new for him. He has been noted to have guaiac positive stool on admission, but he has been without any brbpr or melena. His main concern today is that of discomfort in his sinuses. Since admission he has been hemodynamically stable and afebrile. He has been transfused with one unit of PRBCs without incident. Allergies/Medications Allergies: Coded Allergies: No Known Allergies (04/10/18) Home Med List: Albuterol Sulfate (Proair Hfa) 90 MCG HFA.AER.AD 2 PUF INH Q4-6 PRN PRN SHORTNESS OF BREATH (Reported) Albuterol Sulfate 2.5 MG/3 ML (0.083 %) VIAL.NEB 1 Vial INH/ABILIO Q4P PRN SHORTNESS OF BREATH (Reported) Budesonide/Formoterol Fumarate (Symbicort 160-4.5 Mcg Inhaler) 160 MCG-4.5 MCG/ ACTUATION HFA.AER.AD 2 PUF INH BID SHORTNESS OF BREATH (Reported) Cyanocobalamin (Vitamin B-12) (B-12) 1,000 MCG TABLET 1 TAB PO DAILY VITAMIN SUPPORT (Reported) Digoxin (Lanoxin) 125 MCG TABLET 1 TAB PO Q48@1700 AFIB Diltiazem HCl (Cardizem Cd) 240 MG CAP.ER.24H 240 MG PO DAILY ATRIAL FIB Ferrous Sulfate 325 MG TABLET.DR 325 MG PO BID Iron supplement Furosemide (Lasix) 80 MG TABLET 1 TAB PO BID CHF Hydralazine HCl 10 MG TABLET 1 TAB PO BID HTN Insulin Aspart (Novolog) (Unknown Strength) VIAL (Unknown Dose) SC SEE SLIDING SCALE DIABETES (Reported) Insulin Detemir (Levemir) 100 UNIT/ML VIAL 10 UNITS SC 0900 DM Insulin Detemir (Levemir) 100 UNIT/ML VIAL 8 UNITS SC AT BEDTIME DM Loperamide HCl (Loperamide) 2 MG CAPSULE 2 CAP PO BID PRN ANTI-DIARRHEAL ( Reported) Metoprolol Tartrate 25 MG TABLET 1 TAB PO BID AFIB Mometasone Furoate (Nasonex) 50 MCG SPRAY.PUMP 1 SPRAY NASB DAILY ALLERGIES ( Reported) Morphine Sulfate (Morphine Sulfate Elixir 10mg/5ml) 10 MG/5 ML SOLUTION 2.5 MG PO Q2P PRN UNKNOWN (Reported) Morphine Sulfate (Morphine Sulfate Elixir 10mg/5ml) 10 MG/5 ML SOLUTION 2.5 MG PO Q2P PRN SHORTNESS OF BREATH Oxycodone HCl/Acetaminophen (Percocet 5-325 MG Tablet) 5 MG-325 MG TABLET 1-2 TAB PO Q4-6 PRN PAIN tylenol alternatively. do not combine. Pantoprazole Sodium (Protonix) 40 MG TABLET.DR 1 TAB PO DAILY ACID REFLUX ( Reported) Prednisone 10 MG TABLET 1 TAB PO DAILY COPD (Reported) Rivaroxaban (Xarelto) 15 MG TABLET 1 TAB PO 1900 AFIB Tiotropium [place] (Spiriva) 18 MCG CAP.W.DEV 1 CAP INH DAILY SHORTNESS OF BREATH (Reported) Current Medications: Current Medications Sig/Eve Start time Last Medication Dose Route Stop Time Status Admin Albuterol Sulfate 3 ML EVERY 4 HRS/AWAKE 04/11 08 AC 04/12 INH 1151 Budesonide/ 2 PUF BID 04/10 2210 AC 04/12 Formoterol Fumarate INH 0920 Cyanocobalamin 1,000 MCG DAILY 04/11 09 AC 04/12 PO 0920 Digoxin 0.125 MG Q48@1700 04/12 1700 AC PO Diltiazem HCl 240 MG DAILY 04/11 09 AC 04/12 PO 0920 Ferrous Sulfate 325 MG TID 04/11 900 AC 04/12 PO 1306 Furosemide 40 MG ONCE ONE 04/12 1245 DC 04/12 IV 04/12 1246 1306 Furosemide 80 MG 7:30 AM, & 4:30 PM 04/11 0730 AC 04/12 PO 0719 Guaifenesin/ 10 ML Q6P PRN 04/11 1415 AC 04/12 Dextromethorphan PO 1043 Hydralazine HCl 10 MG BID 04/10 221 AC 04/12 PO 0920 Insulin Aspart 0 AT BEDTIME 04/11 2100 AC SC Insulin Aspart 0 TIDAC 04/11 0800 AC 04/12 SC 1213 Insulin Detemir 8 UNITS AT BEDTIME 04/11 2100 AC 04/11 SC 2041 Insulin Detemir 10 UNITS 0900 04/11 0900 AC 04/12 SC 0931 Metoprolol Tartrate 25 MG BID 04/10 2212 AC 04/12 PO 0920 Morphine Sulfate 2.5 MG Q2P PRN 04/10 2215 AC PO Omeprazole 40 MG DAILY AC 04/11 0700 AC 04/12 PO 0717 Oxycodone/ 2 TAB Q4-6 PRN 04/10 2245 AC Acetaminophen PO Oxycodone/ 1 TAB Q4-6 PRN 04/10 2215 AC Acetaminophen PO Prednisone 10 MG DAILY 04/11 0900 AC 04/12 PO 0920 Rivaroxaban 15 MG AT BEDTIME 04/11 2100 AC 04/11 PO 2038 Sodium Chloride 2 SPRAY Q4P PRN 04/10 2215 AC 04/11 CESAR 0059 Tiotropium [place] 1 PUF DAILY 04/11 09 AC 04/12 INH 0920 Past History Travel History Traveled to [place] past 21 day No Medical History Blood Transfusion Hx: Yes Neurological: TIA 2010 EENT: cataracts Cardiovascular: AFIB, CHF, hypertension, hyperlipidemia Respiratory: COPD, 4L O2 DEPENDENT BIPAP AT NIGHT Gastrointestinal: GERD, ABD ANEURYSM Hepatic: NONE Renal: NONE Musculoskeletal: NONE Psychiatric: NONE Endocrine: NONE Blood Disorders: NONE Cancer(s): prostate cancer COMMERCIAL SUBCONTRACTOR/Reproductive: NONE Surgical History Surgical History: cataract removal, PROSTATE SURGERY AAA REPAIR TONSILLECTOMY Endovascular AAA repair endovascular abdominal aortic aneurysm repair Family History Relations & Conditions If Any: MOTHER, ; Cause: COPD (chronic obstructive pulmonary disease). FATHER, ; Cause: Myocardial infarct. SISTER, ; Cause: Myocardial infarct. Psychosocial History Where Do You Live? Acute Rehab Who Do You Live With? self Services at Home: None Primary Language: Polish Smoking Status: Former Smoker Living Will? unknown Power of Environmental Compliance Officer/HCP? unknown Functional Ability ADLs Independent: dressing, eating, toileting, bathing. Ambulation: independent IADLs Independent: shopping, housework, finances, food prep, telephone, transportation , medication admin. Review of Systems Review of Systems Constitutional: Reports: malaise, weakness. Denies: chills, diaphoresis, fever. EENTM: Reports: epistaxis, nasal pain. Cardiovascular: Denies: no symptoms. Respiratory: Reports: cough, short of breath. Denies: hemoptysis. GI: Denies: see HPI. Genitourinary: Denies: no symptoms. Musculoskeletal: Reports: joint pain, muscle pain. Denies: joint swelling, muscle stiffness. Skin: Denies: no symptoms. Neurological/Psychological: Reports: headache. Hematologic/Endocrine: Reports: bruising, bleeding. Immunologic/Allergic: Denies: no symptoms. All Other Systems: Reviewed and Negative Exam & Diagnostic Data Vital Signs and I&O Vital Signs Date Time Temp Pulse Resp B/P B/P Pulse O2 O2 Flow FiO2 Mean Ox Delivery Rate 04/12 1148 95 Nasal 4.0L Cannula 04/12 0920 124/04/12 0920 12404/12 0800 94 Nasal 5.0L Cannula 04/12 0715 66 94 04/12 0647 97.9 64 22 12468 97 Nasal 4.0L Cannula 04/12 0539 52 98 04/12 0303 67 97 04/12 0006 71 96 04/11 2259 95 Nasal 5.0L Cannula 04/11 2241 98.0 76 22 118/64 95 Nasal 4.0L Cannula 04/11 2133 70 95 04/11 2040 76 118/64 04/11 2039 76 118/64 04/11 1643 85 Nasal 4.0L Cannula 04/11 1600 62 108/70 04/11 1600 90 Nasal 4.5L Cannula 04/11 1433 98.3 77 18 122/60 93 Nasal Cannula Intake & Output 04/12 1600 04/12 0400 04/11 1600 04/11 0400 04/10 1600 04/10 0400 Intake Total 220 220 550 0 Output Total 150 525 600 Balance 220 70 25 -600 0 Intake, Oral 220 220 550 0 Number 1 3 Bowel Movements Output, Urine 150 525 600 Patient 183 lb 179 lb 176 lb Weight Weight Bed scale Bed scale Measurement Method Physical Exam General Appearance: well developed/nourished, no apparent distress Head: ecchymosis, dry blood around nares Eyes: Bilateral: normal appearance. Ears, Nose, Throat: normal pharynx, normal ENT inspection Neck: normal inspection, supple Respiratory: normal breath sounds, chest non-tender, no respiratory distress Cardiovascular: regular rate/rhythm Gastrointestinal: normal bowel sounds, soft, non-tender, no organomegaly Rectal: deferred Back: normal inspection Extremities: normal inspection, no edema Skin: ecchymosis Results Pertinent Lab Results: Laboratory Tests 04/12 04/11 0651 0625 Chemistry Sodium (137 - 145 mmol/L) 141 139 Potassium (3.5 - 5.1 mmol/L) 4.1 4.2 Chloride (98 - 107 mmol/L) 89 L 88 L Carbon Dioxide (22 - 30 mmol/L) 44 H 42 H Anion Gap (5 - 16) 8 9 BUN (9 - 20 mg/dL) 50 H 50 H Creatinine (0.7 - 1.2 mg/dL) 2.3 H 2.0 H Estimated GFR (>60 ml/min) 28 L 33 L BUN/Creatinine Ratio (7 - 25 %) 21.7 25.0 Hematology CBC w Diff NO MAN DIFF REQ NO MAN DIFF REQ WBC (4.8 - 10.8 /CUMM) 6.1 7.3 RBC (4.70 - 6.10 /CUMM) 2.35 L 2.76 L Hgb (14.0 - 18.0 G/DL) 6.7 *L 7.7 L Hct (42 - 52 %) 20.0 L 23.9 L MCV (80.0 - 94.0 FL) 85.3 86.4 MCH (27.0 - 31.0 PG) 28.4 27.7 MCHC (33.0 - 37.0 G/DL) 33.3 32.1 L RDW (11.5 - 14.5 %) 17.5 H 17.7 H Plt Count (130 - 400 /CUMM) 217 261 MPV (7.4 - 10.4 FL) 7.8 8.2 Gran % (42.2 - 75.2 %) 79.1 H 80.4 H Lymphocytes % (20.5 - 51.1 %) 13.4 L 13.2 L Monocytes % (1.7 - 9.3 %) 7.1 6.0 Eosinophils % (0 - 5 %) 0.1 0.1 Basophils % (0.0 - 2.0 %) 0.3 0.3 Absolute Granulocytes (1.4 - 6.5 /CUMM) 4.9 5.8 Absolute Lymphocytes (1.2 - 3.4 /CUMM) 0.8 L 1.0 L Absolute Monocytes (0.10 - 0.60 /CUMM) 0.4 0.4 Absolute Eosinophils (0.0 - 0.7 /CUMM) 0 0 Absolute Basophils (0.0 - 0.2 /CUMM) 0 0 04/10 04/10 04/10 1634 1634 1624 Chemistry Sodium (137 - 145 mmol/L) 138 Potassium (3.5 - 5.1 mmol/L) 4.6 Chloride (98 - 107 mmol/L) 86 L Carbon Dioxide (22 - 30 mmol/L) 41 H Anion Gap (5 - 16) 11 BUN (9 - 20 mg/dL) 63 H Creatinine (0.7 - 1.2 mg/dL) 2.0 H Estimated GFR (>60 ml/min) 33 L BUN/Creatinine Ratio (7 - 25 %) 31.5 H Glucose (65 - 99 mg/dL) 54 L Calcium (8.4 - 10.2 mg/dL) 8.3 L Iron (49 - 181 ug/dL) 44 L TIBC (261 - 462 ug/dL) 212 L Ferritin (17.9 - 464 ng/mL) 362.0 Total Bilirubin (0.2 - 1.3 mg/dL) 0.5 AST (17 - 59 U/L) 14 L ALT (21 - 72 U/L) 22 Alkaline Phosphatase (< 127 U/L) 84 Lactate Dehydrogenase (313 - 618 U/L) 611 Troponin I (<0.11 ng/ml) 0.03 [id number] Pept (<125 pg/mL) 53605 H Cancelled Total Protein (6.3 - 8.2 g/dL) 5.3 L Albumin (3.5 - 5.0 g/dL) 2.8 L Globulin (1.9 - 4.2 gm/dL) 2.5 Albumin/Globulin Ratio (1.1 - 2.2 %) 1.1 Vitamin B12 (239 - 931 pg/mL) > 1000 H Folate (2.76 - 20.0 ng/mL) > 20.0 H Coagulation PT (9.4 - 12.5 SEC) 16.7 H INR (0.90 - 1.17) 1.53 H APTT (25 - 37 SEC) 38 H Hematology CBC w Diff MAN DIFF ORDERED WBC (4.8 - 10.8 /CUMM) 8.0 RBC (4.70 - 6.10 /CUMM) 2.61 L Hgb (14.0 - 18.0 G/DL) 7.0 *L Hct (42 - 52 %) 21.8 L MCV (80.0 - 94.0 FL) 83.4 MCH (27.0 - 31.0 PG) 27.0 MCHC (33.0 - 37.0 G/DL) 32.4 L RDW (11.5 - 14.5 %) 18.5 H Plt Count (130 - 400 /CUMM) 273 MPV (7.4 - 10.4 FL) 7.8 Gran % (42.2 - 75.2 %) 82.5 H Lymphocytes % (20.5 - 51.1 %) 11.2 L Monocytes % (1.7 - 9.3 %) 5.8 Eosinophils % (0 - 5 %) 0.2 Basophils % (0.0 - 2.0 %) 0.3 Absolute Granulocytes (1.4 - 6.5 /CUMM) 6.6 H Segmented Neutrophils (42.2 - 75.2 %) 82 H Band Neutrophils (0.0 - 5.0 %) 1 Absolute Lymphocytes (1.2 - 3.4 /CUMM) 0.9 L Lymphocytes (20.5 - 51.1 %) 12 L Monocytes (1.7 - 9.3 %) 3 Absolute Monocytes (0.10 - 0.60 /CUMM) 0.5 Absolute Eosinophils (0.0 - 0.7 /CUMM) 0 Basophils (0.0 - 2.0 %) 1 Absolute Basophils (0.0 - 0.2 /CUMM) 0 Metamyelocytes (0.0 - 1.0 %) 1 Platelet Estimate (ADEQUATE) ADEQUATE Polychromasia 1+ Hypochromic-Microcytic 2+ Basophilic Stippling RARE Anisocytosis 2+ Retic Count (0.5 - 2.0 %) 2.64 H Haptoglobin Pending Assessment/Plan Assessment/Recommendations: Assessment: Mr. Vieira is a 67 year old male with multiple medical problems admitted for anemia of uncertain etiology, but I suspect it is multifactorial in etiology and related to anemia of chronic diease, anemia of renal insufficiency, blood loss from epistaxis and it is also possible he may have GI blood loss as well considering the guaiac postive stool, but this could also just be from swalloweed blood from his epistaxis. He does have some diarrhea, but this is not new for him and I doubt he has IBD. He notes that he had a colonoscopy about 4-5 years ago that he wasn't certain of the results and while it may be reasonable to ultimatley repeat this to rule out an occult malignancy or any other potential source of his anemia I don't feel it is necessary to be done as an inpatient considering he is without overt GI bleeding. Furthermore, would recommend holding his anticoagulation for at least 72 hours before any invasive procedures considering his renal insufficiency and his anticoagulation has not been held. Recommendations: 1. Follow hgb and tranfuse as needed 2. Diet as tolerated 3. Notify GI for signs of over gi bleeding 4. Continue oral ppi for gi prophylaxis 5. He should follow up as an outpatient for an endoscopic work up 6. Continue oral iron supplementation Please re-contact GI for any new/acute Gi issues which may arise on this hospitalization. Problem List: 1. Symptomatic anemia 2. Chronic renal failure 3. Fecal occult blood test positive Copies To: Ramses CR,Prabhakar Frazier. Consult Acknowledgment - Thank you for your consult request.
[2018-04-12 14:34] VITALS: BP 112/78
--- NOTE | 2018-04-12 17:24 | RADIOLOGY REPORT ---
EXAMINATION: XR SINUSES CLINICAL INFORMATION: Epistaxes. Nasal blockage. Evaluate for traumatic injury. COMPARISON: None TECHNIQUE: Paranasal sinuses, 3 views FINDINGS: Nasal bones are intact and the nasal septum is midline in position. Paranasal sinuses are well-developed and well aerated; no air-fluid levels. The orbital rims are intact. The patient is edentulous. The mastoid air cells are clear. IMPRESSION: 1. No evidence of paranasal sinus disease. 2. Nasal bones are intact; no acute fracture.
[2018-04-12 23:23] VITALS: BP 114/70
[2018-04-13 01:41] LABS: ABSOLUTE BASOPHIL COUNT 0 /CUMM (0.0-0.2); ABSOLUTE EOSINOPHIL COUNT 0 /CUMM (0.0-0.7); ABSOLUTE GRANULOCYTE CT 8.1 /CUMM (1.4-6.5); ABSOLUTE LYMPH COUNT 0.9 /CUMM (1.2-3.4); ABSOLUTE MONOCYTE COUNT 0.6 /CUMM (0.10-0.60); BASOPHIL % 0.3 % (0.0-2.0); EOSINOPHIL % 0 % (0-5); GRANULOCYTE % 84.4 % (42.2-75.2); MEAN CORPUSCULAR HGB 27.8 PG (27.0-31.0); MEAN CORPUSCULAR HGB CONC 32.8 G/DL (33.0-37.0); MEAN CORPUSCULAR VOLUME 84.9 FL (80.0-94.0); MEAN PLATELET VOLUME 7.9 FL (7.4-10.4); PLATELET COUNT 222 /CUMM (130-400); RBC DISTRIBUTION WIDTH 17.3 % (11.5-14.5)
[2018-04-13 01:45] LABS: RED BLOOD CELL CT 3.06 /CUMM (4.70-6.10); WHITE BLOOD CELL COUNT 9.6 /CUMM (4.8-10.8)
[2018-04-13 06:42] VITALS: BP 122/66
--- NOTE | 2018-04-13 07:21 | PN- Housestaff ---
Patsy Leonard 04/13/18 0720: Subjective Follow-up For: -acute on chronic blood loss anemia -Bronchitis,staph aureus on sputum culture - colonisationversus ? consolidation, no signs of infection. -b/l plueral effusion -copd on 4 litres (chronic respiratory failure) -Sever chest congestion Complaints: no complaints Tele-Events Since Last Visit: a fib with rate of 67 to 83 Review of Systems Constitutional: Reports: see HPI. Objective Last 24 Hrs of Vital Signs/I&O Vital Signs Date Time Temp Pulse Resp B/P B/P Pulse O2 O2 Flow FiO2 Mean Ox Delivery Rate 04/13 0642 97.9 74 20 122/66 95 Nasal 5.0L Cannula 04/13 0549 72 94 04/13 0313 62 94 04/13 0016 66 94 04/13 0000 94 BIPAP 4.0L 04/12 2347 75 95 04/12 2323 98.1 82 20 114/70 93 Nasal 5.0L Cannula 04/12 2135 60 112/78 04/12 2135 98.2 60 112/78 04/12 1736 60 112/78 04/12 1622 97 Nasal 4.0L Cannula 04/12 1600 Nasal 4.0L Cannula 04/12 1434 98.2 60 20 112/78 89 Nasal Cannula 04/12 1148 95 Nasal 4.0L Cannula 04/12 0920 124/68 04/12 0920 124/68 04/12 0800 94 Nasal 5.0L Cannula Intake & Output 04/13 0800 04/13 0000 04/12 1600 Intake Total 400 500 Output Total 450 1550 600 Balance -450 -1150 -100 Intake, IV 500 Intake, Oral 400 Number 1 Bowel Movements Output, Urine 450 1550 600 Patient 80.881 kg Weight Weight Bed scale Measurement Method Physical Exam General Appearance: Alert, Oriented X3, Mild Distress Skin: dry sking and dry blood on nose HEENT: Atraumatic, PERRLA, EOMI Neck: Supple, No JVD Cardiovascular: Normal S1, Normal S2, No Murmurs Lungs: decreaed breath sounds,wheezing, +, congested Abdomen: Normal Bowel Sounds, Soft, No Tenderness Neurological: Strength at 5/5 X4 Ext, Normal Tone, Sensation Intact, Cranial Nerves 3-12 NL Extremities: edema + Vascular: Normal Pulses Current Medications: Current Medications Sig/Eve Start time Last Medication Dose Route Stop Time Status Admin Albuterol Sulfate 3 ML EVERY 4 HRS/AWAKE 04/11 08 AC 04/12 INH 2009 Budesonide/ 2 PUF BID 04/10 2210 04/12 Formoterol Fumarate INH 2147 Cyanocobalamin 1,000 MCG DAILY 04/11 09 04/12 PO 0920 Digoxin 0.125 MG Q48@1700 04/12 1700 AC 04/12 PO 1736 Diltiazem HCl 240 MG DAILY 04/11 09 04/12 PO 0920 Ferrous Sulfate 325 MG TID 04/11 09 04/12 PO 2135 Fluticasone 2 SPRAY DAILY 04/12 1437 AC 04/13 Propionate CESAR 0632 Furosemide 40 MG ONCE ONE 04/12 1245 DC 04/12 IV 04/12 1246 1306 Furosemide 80 MG 7:30 AM, & 4:30 PM 04/11 0730 04/12 PO 1736 Guaifenesin 10 ML .STK-MED ONE 04/12 2126 DC PO 04/12 212 Guaifenesin/ 10 ML Q6P PRN 04/11 1415 AC 04/12 Dextromethorphan PO 1043 Hydralazine HCl 10 MG BID 04/10 221 AC 04/12 PO 2135 Insulin Aspart 0 AT BEDTIME 04/11 2100 SC Insulin Aspart 0 TIDAC 04/11 08 04/12 SC 1748 Insulin Detemir 8 UNITS AT BEDTIME 04/11 2100 04/12 SC 2141 Insulin Detemir 10 UNITS 0900 04/11 0900 04/12 SC 0931 Metoprolol Tartrate 25 MG BID 04/10 2212 04/12 PO 2135 Morphine Sulfate 2.5 MG Q2P PRN 04/10 221 AC 04/13 PO 0713 Omeprazole 40 MG DAILY AC 04/11 0700 04/13 PO 0632 Oxycodone/ 2 TAB Q4-6 PRN 04/10 224 AC Acetaminophen PO Oxycodone/ 1 TAB Q4-6 PRN 04/10 221 AC Acetaminophen PO Patient Medication 1 ED ONE ONE 04/12 1545 DC Teaching ED 04/12 1546 Prednisone 10 MG DAILY 04/11 09 04/12 PO 0920 Rivaroxaban 15 MG AT BEDTIME 04/11 2100 DC 04/11 PO 2038 Sodium Chloride 2 SPRAY Q4P PRN 04/10 2215 AC 04/13 CESAR 0718 Tiotropium [place] 1 PUF DAILY 04/11 0900 AC 04/12 INH 0920 Last 24 Hrs of Lab/Sridhar Results Last 24 Hrs of Labs/Mics: Laboratory Tests 04/13/18 0702: Sodium Pending, Potassium Pending, Chloride Pending, Carbon Dioxide Pending, Anion Gap Pending, BUN Pending, Creatinine Pending, BUN/Creatinine Ratio Pending , CBC w Diff Pending, WBC Pending, RBC Pending, Hgb Pending, Hct Pending, MCV Pending, MCH Pending, MCHC Pending, RDW Pending, Plt Count Pending, MPV Pending 04/13/18 0045: CBC w Diff MAN DIFF ORDERED, RBC 3.06 L, MCV 84.9, MCH 27.8, MCHC 32.8 L, RDW 17.3 H, MPV 7.9, Gran % 84.4 H, Lymphocytes % 9.5 L, Monocytes % 5.8, Eosinophils % 0, Basophils % 0.3, Absolute Granulocytes 8.1 H, Segmented Neutrophils 82 H, Absolute Lymphocytes 0.9 L, Lymphocytes 9 L, Monocytes 7, Absolute Monocytes 0.6, Absolute Eosinophils 0, Basophils 2, Absolute Basophils 0, Platelet Estimate ADEQUATE, Polychromasia 1+, Hypochromic-Microcytic 1+, Poikilocytosis 1+, Basophilic Stippling 1+, Ovalocytes 1+, Stomatocytes FEW, Fld Total RBCs Counted 100 04/12/181999: CBC w Diff Cancelled, WBC Cancelled, RBC Cancelled, Hgb Cancelled, Hct Cancelled , MCV Cancelled, MCH Cancelled, MCHC Cancelled, RDW Cancelled, Plt Count Cancelled, MPV Cancelled Microbiology 04/12 145 LOWER RESP: Respiratory Culture - RES 04/12 145 LOWER RESP: Gram Stain - RES Lines/Diet/Fluids Restraints: none Assessment/Plan Assessment: Mr garcia a 67-year-old male with past medical history of COPD on 4 L of home oxygen, nocturnal BiPAP, atrial fibrillation on Xarelto, diabetes mellitus, hypertension, hyperlipidemia, abdominal aortic aneurysm repair, CHF with reduced EF of 30-35% on echo done in February 2018 came in with chief complain off her low H&H that was found on routine blood work at the nursing facility. Problem list along with assessment and plan #1 acute on chronic blood loss anemia requiring blood transfusion, suspected GI in origin versus epistaxis. 's baseline hemoglobin is 8.0, had dropped by 1 point ot 7.0 on presentation, he was transfused 1 unit of packed red cells on day one of admission, however on day 2 his hemoglobin again dropped to 6.7, after which he was transfused 2 units of packed red cells. He was also given additional doses of IV Lasix to make sure the blood transfusion does not cause fluid overload. GI was consulted as he was guaiac positive, however he being on Xarelto, the plan for EGD/colonoscopy was to get it done as outpatient. * Today is day 2 discontinuation of Xarelto. * We also touched base with cardiology as he has history of atrial fibrillation about discontinuation of Xarelto, however the benefit of discontinuing Xarelto and evaluating the blood loss anemia weights otu the risk. * Continue to hold Xarelto. * Continue to monitor CBC, target hemoglobin about 8. * Continue PPI * eventual planned for outpatient EGD/colonoscopy * continue to monitor for any active GI bleed * If severe bleeding noticed contact GI stat * DVT prophylaxis with Alps. #3 chronic respiratory failure- severe congestion with shortness of breath * Continue TRC nebulizations. * Pulmonology was consulted, consult appreciated. * Patient was started on Solu-Medrol 40 mg IV every 12. * We will continue the steroid taper over the weekend to help him with this COPD exacerbation. * He also has very severe clogged mucus, therefore needs aggressive chest therapy with Acapela - along with Mucomyst during nebulization. Discussed with the respiratory therapist. * Continue to supplement oxygen to maintain saturations above 92% #4 sputum cultures grew staph aureus. * Off note patient did grew MRSA in the past, * Current sputum cultures are positve for staph aureus - could be simply colonization of MRSA as he does not have a fever or white count or any signs of infection, we will continue to watch him off antibiotics for now and follow the cultures. * If any signs of infection develop or suspicio consider starting antibiotics. #5 Small right-sided pleural effusion. * Continue to monitor respiratory status, if symptoms worsen repeat chest x-ray to see if the pleural effusion is tappable at this point no plan for tapping. #6 Diabetes Mellitus. * Continue 8 units of Levemir at bedtime. * Continue to monitor fingerstick. * Continue NovoLog sliding scale. * Consistent carbohydrate diet. * He has been started on IV Solu-Medrol, he has a tendency for very high sugars while being on steroid therefore over the weekend please adjust the insulin as required for maintaining fingersticks #7 HTN * Continue hydralazine 10 mg twice a day. * Continue Lopressor 25 mg twice a day. * Continue Cardizem 240 mg daily. #8 Epistaxis * much better today. * Continue to use oxygen in humidified form. * Continue to use nasal saline. * Continue Flonase. * Continue to monitor H&H. * Xray sinus didnot show nay aucte findings. FC ( confirmed with patient again today and he wants to do everything untill he is in vegetative state than the can decide) DVT prophylaxis with ALPs, hold xorelto Heart healthy consistent carbohydrate diet Problem List: 1. Symptomatic anemia 2. Chronic renal failure 3. Fecal occult blood test positive 4. Chronic anemia 5. Acute respiratory failure with hypoxia Pain Ratin Pain Location: .. Pain Goal: Remain pain free Pain Plan: tylenol Tomorrow's Labs & Rationales: .. Discharge Plan Discharge Disposition: STR/NH Stable for Discharge? No Anticipated Discharge (Day): three days Anushka Bustos MD 04/13/18 1041: Attending MD Review Statement Attending Statement Attending MD Statement: examined this patient, discuss w/resident/PA/[facility], agreed w/resident/PA/[facility], reviewed EMR data (avail), discussed with nursing, discussed with case mgmt, reviewed images Attending Assessment/Plan: Pt doesn't feel good at all today. He keeps complaining that he has a sinus associated infection and he feels like all the mucus is in his throat and it's very thick and he cannot get it out. He says he also cannot breathe well as a result of this. He is a 67-year-old with multiple medical problems including diabetes, chronic systolic heart failure, chronic respiratory failure with COPD on home oxygen, A. fib on Xarelto and CKD. He was admitted with acute on chronic anemia this time presumed blood loss from epistaxis with baseline multifactorial chronic anemia and he was transfused a total of 3 units since admission. They've been diuresing him with IV Lasix in between the units and today he is back on his 80 by mouth twice a day which is his usual outpatient dose. Given the respiratory distress we've called an official pulmonary consult and I repeating the chest x-ray. His sputum culture is growing staph aureus although I'm not convinced this is a MRSA pneumonia and he has grown MRSA in his sputum before. Will follow-up on the chest x-ray. He recently finished a prednisone taper and is now on 10 mg a day which will continue. I've called Dr. So to see him really to assess the need for BiPAP and anything we can do to loosen the mucus. I also called Dr. Avila Navarrete to see him officially for 2 reasons one is whether he needs any further IV diureses and two is to assess the fact that we are holding the anticoagulation given the anemia and the need for an outpatient GI workup for this.
[2018-04-13 08:10] LABS: ABSOLUTE BASOPHIL COUNT 0 /CUMM (0.0-0.2); ABSOLUTE EOSINOPHIL COUNT 0 /CUMM (0.0-0.7); ABSOLUTE GRANULOCYTE CT 7.6 /CUMM (1.4-6.5); ABSOLUTE MONOCYTE COUNT 0.7 /CUMM (0.10-0.60); BASOPHIL % 0.3 % (0.0-2.0); EOSINOPHIL % 0.3 % (0-5); GRANULOCYTE % 81.4 % (42.2-75.2); HEMATOCRIT 27.1 % (42-52); MEAN CORPUSCULAR HGB 29.4 PG (27.0-31.0); MEAN CORPUSCULAR HGB CONC 33.6 G/DL (33.0-37.0); MEAN CORPUSCULAR VOLUME 87.3 FL (80.0-94.0); MEAN PLATELET VOLUME 8.1 FL (7.4-10.4); PLATELET COUNT 227 /CUMM (130-400); RBC DISTRIBUTION WIDTH 17.8 % (11.5-14.5); WHITE BLOOD CELL COUNT 9.4 /CUMM (4.8-10.8)
--- NOTE | 2018-04-13 11:21 | Cons- Cardiology ---
General Information and HPI Consulting Request Date of Consult: 04/13/18 Requested By: Radha CR,Sangeeta Reason for Consult: Question of anticoagulation in a patient with presumed GI blood loss and atrial fibrillation. Source of Information: patient, old records Exam Limitations: no limitations History of Present Illness: Courtney Vieira is a 67-year-old male with severe end stage COPD, chronic atrial fibrillation and recurrent HFrEF for several years. I originally saw him when he presented with atrial fibrillation with bradycardia and elevated digoxin level, and we eventually just took him off digoxin. In July 2016 he presented with exacerbation of COPD, hypercapnic respiratory failure, and anasarca. He was diuresed with Lasix intravenously twice a day and sent home on 40 mg b.i.d. orally. He has been on Xarelto for some time for atrial fibrillation. He is also on chronic oxygen at 4 liters, aspirin, Lipitor, and diltiazem for rate control. He is pretty limited in terms of his activity because of the COPD. His echocardiogram in the hospital showed mild left ventricular dilatation with LVH and an ejection fraction of 45%. He also had right ventricle and right atrial dilatation, and left atrial dilatation. He had mild to moderate mitral regurgitation and a pulmonary artery pressure of about 45 mmHg. Courtney presented to the hospital again with pneumonia, exacerbation of COPD, and some mild CHF on 05/01/2017. He was treated with the usual measures including some IV Lasix. He had an echocardiogram which showed an ejection fraction of 35% to 40% with global moderate left ventricular dysfunction. He was discharged on 05/05. When he first presented he was in hypercarbic respiratory failure and had a high heart rate with atrial fibrillation and was transiently placed on Cardizem drip, which was eventually discontinued and his heart rate normalized and stayed normal for the rest of the hospitalization. He was readmitted to the hospital on 08/07/17 again with increasing shortness of breath. This time he appeared to be in more CHF than COPD exacerbation. We repeated his echo and his ejection fraction was now 30% to 35%. His pulmonary artery pressure was elevated to about 60 mmHg. He responded to diuretics and steroids, and other usual respiratory treatments. Courtney was once again admitted to [facility] on 12/25/2017. This time he had left lower lobe pneumonia. He also had some degree of worsening renal insufficiency. I was asked to see him a couple of days after his admission because of increasing edema. I recommended just keeping him on his usual dose of Lasix. He did not have abnormal cardiac enzymes at that time, and we did not repeat his echo. At his last office visit, which was just about one month ago, he was relatively stable. Subsequently he underwent endovascular repair of abdominal aortic aneurysm on 02/04/2018. This was uncomplicated and went home the next day. Subsequently he has continued to go to the CHF clinic and has been getting intermittent doses of intravenous Lasix there. Courtney was last admitted to the hospital about 6 weeks ago with exacerbation of COPD and CHF. He did poorly initially and at one point was going to be made comfort measures, but he did rally and was able to be weaned off high flow oxygen and eventually sent to [facility]. Subsequently he has developed a couple of episodes of severe anemia, one requiring an ER visit and on the second episode he was actually admitted here 3 days ago. He has required transfusion with intermittent IV Lasix. His chest x-ray documented some interstitial fluid and right pleural effusion. He has now been complaining of some epistaxis and question GI bleeding. He is on lower dose Xarelto because of his chronic renal insufficiency. The Xarelto is now on hold. The indication for this medication is chronic atrial fibrillation. His underlying disease is nonischemic cardiomyopathy. He is on appropriate medications for rate control and this has not a been an issue on this admission. He has one negative troponin on this admission. He is still on telemetry. Allergies/Medications Allergies: Coded Allergies: No Known Allergies (04/10/18) Home Med List: Albuterol Sulfate (Proair Hfa) 90 MCG HFA.AER.AD 2 PUF INH Q4-6 PRN PRN SHORTNESS OF BREATH (Reported) Albuterol Sulfate 2.5 MG/3 ML (0.083 %) VIAL.NEB 1 Vial INH/ABILIO Q4P PRN SHORTNESS OF BREATH (Reported) Budesonide/Formoterol Fumarate (Symbicort 160-4.5 Mcg Inhaler) 160 MCG-4.5 MCG/ ACTUATION HFA.AER.AD 2 PUF INH BID SHORTNESS OF BREATH (Reported) Cyanocobalamin (Vitamin B-12) (B-12) 1,000 MCG TABLET 1 TAB PO DAILY VITAMIN SUPPORT (Reported) Digoxin (Lanoxin) 125 MCG TABLET 1 TAB PO Q48@1700 AFIB Diltiazem HCl (Cardizem Cd) 240 MG CAP.ER.24H 240 MG PO DAILY ATRIAL FIB Ferrous Sulfate 325 MG TABLET.DR 325 MG PO BID Iron supplement Furosemide (Lasix) 80 MG TABLET 1 TAB PO BID CHF Hydralazine HCl 10 MG TABLET 1 TAB PO BID HTN Insulin Aspart (Novolog) (Unknown Strength) VIAL (Unknown Dose) SC SEE SLIDING SCALE DIABETES (Reported) Insulin Detemir (Levemir) 100 UNIT/ML VIAL 10 UNITS SC 0900 DM Insulin Detemir (Levemir) 100 UNIT/ML VIAL 8 UNITS SC AT BEDTIME DM Loperamide HCl (Loperamide) 2 MG CAPSULE 2 CAP PO BID PRN ANTI-DIARRHEAL ( Reported) Metoprolol Tartrate 25 MG TABLET 1 TAB PO BID AFIB Mometasone Furoate (Nasonex) 50 MCG SPRAY.PUMP 1 SPRAY NASB DAILY ALLERGIES ( Reported) Morphine Sulfate (Morphine Sulfate Elixir 10mg/5ml) 10 MG/5 ML SOLUTION 2.5 MG PO Q2P PRN UNKNOWN (Reported) Morphine Sulfate (Morphine Sulfate Elixir 10mg/5ml) 10 MG/5 ML SOLUTION 2.5 MG PO Q2P PRN SHORTNESS OF BREATH Oxycodone HCl/Acetaminophen (Percocet 5-325 MG Tablet) 5 MG-325 MG TABLET 1-2 TAB PO Q4-6 PRN PAIN tylenol alternatively. do not combine. Pantoprazole Sodium (Protonix) 40 MG TABLET.DR 1 TAB PO DAILY ACID REFLUX ( Reported) Prednisone 10 MG TABLET 1 TAB PO DAILY COPD (Reported) Rivaroxaban (Xarelto) 15 MG TABLET 1 TAB PO 1900 AFIB Tiotropium [place] (Spiriva) 18 MCG CAP.W.DEV 1 CAP INH DAILY SHORTNESS OF BREATH (Reported) Current Medications: Current Medications Sig/Eve Start time Last Medication Dose Route Stop Time Status Admin Albuterol Sulfate 3 ML EVERY 4 HRS/AWAKE 04/11 08 AC 04/13 INH 0725 Budesonide/ 2 PUF BID 04/10 2210 AC 04/13 Formoterol Fumarate INH 0850 Cyanocobalamin 1,000 MCG DAILY 04/11 09 AC 04/13 PO 0849 Digoxin 0.125 MG Q48@1700 04/12 1700 AC 04/12 PO 1736 Diltiazem HCl 240 MG DAILY 04/11 09 AC 04/13 PO 0849 Ferrous Sulfate 325 MG TID 04/11 09 04/13 PO 0848 Fluticasone 2 SPRAY DAILY 04/12 1437 AC 04/13 Propionate CESAR 0632 Furosemide 40 MG ONCE ONE 04/12 1245 DC 04/12 IV 04/12 1246 1306 Furosemide 80 MG 7:30 AM, & 4:30 PM 04/11 0730 04/13 PO 0848 Guaifenesin 600 MG Q12 04/13 1036 AC PO Guaifenesin 10 ML .STK-MED ONE 04/12 2126 DC PO 04/12 2127 Guaifenesin/ 10 ML Q6P PRN 04/11 1415 04/12 Dextromethorphan PO 1043 Hydralazine HCl 10 MG BID 04/10 2211 04/13 PO 0849 Insulin Aspart 0 AT BEDTIME 04/11 2100 SC Insulin Aspart 0 TIDAC 04/11 08 04/12 SC 1748 Insulin Detemir 8 UNITS AT BEDTIME 04/11 2100 04/12 SC 2141 Insulin Detemir 10 UNITS 0900 04/11 09 04/13 SC 0850 Metoprolol Tartrate 25 MG BID 04/10 2212 04/13 PO 0849 Morphine Sulfate 2.5 MG Q2P PRN 04/10 221 04/13 PO 0713 Omeprazole 40 MG DAILY AC 04/11 07 04/13 PO 0632 Oxycodone/ 2 TAB Q4-6 PRN 04/10 2245 AC Acetaminophen PO Oxycodone/ 1 TAB Q4-6 PRN 04/10 221 AC Acetaminophen PO Patient Medication 1 ED ONE ONE 04/12 1545 DC Teaching ED 04/12 1546 Prednisone 10 MG DAILY 04/11 09 04/13 PO 0849 Rivaroxaban 15 MG AT BEDTIME 04/11 2100 MA 04/11 PO 2038 Sodium Chloride 2 SPRAY Q4P PRN 04/10 2215 04/13 CESAR 0718 Tiotropium [place] 1 PUF DAILY 04/11 09 04/13 INH 0849 Review of Systems Review of Systems: No other complaints Past History Travel History Traveled to [place] past 21 day No Medical History Blood Transfusion Hx: Yes Neurological: TIA 2010 EENT: cataracts Cardiovascular: AFIB, CHF, hypertension, hyperlipidemia Respiratory: COPD, 4L O2 DEPENDENT BIPAP AT NIGHT Gastrointestinal: GERD, ABD ANEURYSM Hepatic: NONE Renal: NONE Musculoskeletal: NONE Psychiatric: NONE Endocrine: NONE Blood Disorders: NONE Cancer(s): prostate cancer BAIL BOND AGENT/Reproductive: NONE Surgical History Surgical History: cataract removal, PROSTATE SURGERY AAA REPAIR TONSILLECTOMY Endovascular AAA repair endovascular abdominal aortic aneurysm repair Family History Relations & Conditions If Any: MOTHER, ; Cause: COPD (chronic obstructive pulmonary disease). FATHER, ; Cause: Myocardial infarct. SISTER, ; Cause: Myocardial infarct. Psychosocial History Where Do You Live? Acute [facility]hab Who Do You Live With? self Services at Home: None Primary Language: Jordanian Smoking Status: Former Smoker Living Will? unknown Power of Manager Of Warehouse/HCP? unknown Functional Ability ADLs Independent: dressing, eating, toileting, bathing. Ambulation: independent IADLs Independent: shopping, housework, finances, food prep, telephone, transportation , medication admin. Exam & Diagnostic Data Vital Signs and I&O Vital Signs Date Time Temp Pulse Resp B/P B/P Pulse O2 O2 Flow FiO2 Mean Ox Delivery Rate 04/13 1038 Nasal 5.0L Cannula 04/13 1031 Nasal 5.0L Cannula 04/13 0938 91 Nasal 5.0L Cannula 04/13 0849 124/74 04/13 0849 124/74 04/13 0726 91 Nasal 5.0L Cannula 04/13 0642 97.9 74 20 122/66 95 Nasal 5.0L Cannula 04/13 0549 72 94 04/13 0313 62 94 04/13 0016 66 94 04/13 0000 94 BIPAP 4.0L 04/12 2347 75 95 04/12 2323 98.1 82 20 114/70 93 Nasal 5.0L Cannula 04/12 2135 60 112/78 04/12 2135 98.2 60 112/78 04/12 1736 60 112/78 04/12 1622 97 Nasal 4.0L Cannula 04/12 1600 Nasal 4.0L Cannula 04/12 1434 98.2 60 20 112/78 89 Nasal Cannula 04/12 1148 95 Nasal 4.0L Cannula Intake & Output 04/13 1600 04/13 0800 04/13 0000 04/12 1600 04/12 0800 04/12 0000 Intake Total 400 500 220 220 Output Total 450 1550 600 150 Balance -450 -1150 -100 220 70 Intake, IV 500 Intake, Oral 400 220 220 Number 1 1 Bowel Movements Output, Urine 450 1550 600 150 Patient 178 lb 183 lb Weight Weight Bed scale Bed scale Measurement Method Physical Exam: He is in no distress. He is on high flow oxygen. HEENT exam unremarkable Neck veins not distended Carotids normal Chest decreased breath sounds and a few scattered rhonchi and coarse rales Heart irregular rhythm, normal rate, no murmurs Extremities 1+ edema Labs/Sridhar Results: Laboratory Tests 04/13 04/13 0702 0045 Chemistry Sodium (137 - 145 mmol/L) 141 Potassium (3.5 - 5.1 mmol/L) 4.3 Chloride (98 - 107 mmol/L) 90 L Carbon Dioxide (22 - 30 mmol/L) 43 H Anion Gap (5 - 16) 8 BUN (9 - 20 mg/dL) 48 H Creatinine (0.7 - 1.2 mg/dL) 2.2 H Estimated GFR (>60 ml/min) 30 L BUN/Creatinine Ratio (7 - 25 %) 21.8 Hematology CBC w Diff NO MAN DIFF REQ MAN DIFF ORDERED WBC (4.8 - 10.8 /CUMM) 9.4 9.6 RBC (4.70 - 6.10 /CUMM) 3.10 L 3.06 L Hgb (14.0 - 18.0 G/DL) 9.1 L 8.5 L Hct (42 - 52 %) 27.1 L 26.0 L MCV (80.0 - 94.0 FL) 87.3 84.9 MCH (27.0 - 31.0 PG) 29.4 27.8 MCHC (33.0 - 37.0 G/DL) 33.6 32.8 L RDW (11.5 - 14.5 %) 17.8 H 17.3 H Plt Count (130 - 400 /CUMM) 227 222 MPV (7.4 - 10.4 FL) 8.1 7.9 Gran % (42.2 - 75.2 %) 81.4 H 84.4 H Lymphocytes % (20.5 - 51.1 %) 10.9 L 9.5 L Monocytes % (1.7 - 9.3 %) 7.1 5.8 Eosinophils % (0 - 5 %) 0.3 0 Basophils % (0.0 - 2.0 %) 0.3 0.3 Absolute Granulocytes (1.4 - 6.5 /CUMM) 7.6 H 8.1 H Segmented Neutrophils (42.2 - 75.2 %) 82 H Absolute Lymphocytes (1.2 - 3.4 /CUMM) 1.0 L 0.9 L Lymphocytes (20.5 - 51.1 %) 9 L Monocytes (1.7 - 9.3 %) 7 Absolute Monocytes (0.10 - 0.60 /CUMM) 0.7 H 0.6 Absolute Eosinophils (0.0 - 0.7 /CUMM) 0 0 Basophils (0.0 - 2.0 %) 2 Absolute Basophils (0.0 - 0.2 /CUMM) 0 0 Platelet Estimate (ADEQUATE) ADEQUATE Polychromasia 1+ Hypochromic-Microcytic 1+ Poikilocytosis 1+ Basophilic Stippling 1+ Ovalocytes 1+ Stomatocytes FEW Other Body Source Fld Total RBCs Counted (%) 100 04/12 0651 Chemistry Sodium (137 - 145 mmol/L) 141 Potassium (3.5 - 5.1 mmol/L) 4.1 Chloride (98 - 107 mmol/L) 89 L Carbon Dioxide (22 - 30 mmol/L) 44 H Anion Gap (5 - 16) 8 BUN (9 - 20 mg/dL) 50 H Creatinine (0.7 - 1.2 mg/dL) 2.3 H Estimated GFR (>60 ml/min) 28 L BUN/Creatinine Ratio (7 - 25 %) 21.7 Vitamin B12 (239 - 931 pg/mL) > 1000 H Hematology CBC w Diff Cancelled NO MAN DIFF REQ WBC (4.8 - 10.8 /CUMM) Cancelled 6.1 RBC (4.70 - 6.10 /CUMM) Cancelled 2.35 L Hgb (14.0 - 18.0 G/DL) Cancelled 6.7 *L Hct (42 - 52 %) Cancelled 20.0 L MCV (80.0 - 94.0 FL) Cancelled 85.3 MCH (27.0 - 31.0 PG) Cancelled 28.4 MCHC (33.0 - 37.0 G/DL) Cancelled 33.3 RDW (11.5 - 14.5 %) Cancelled 17.5 H Plt Count (130 - 400 /CUMM) Cancelled 217 MPV (7.4 - 10.4 FL) Cancelled 7.8 Gran % (42.2 - 75.2 %) 79.1 H Lymphocytes % (20.5 - 51.1 %) 13.4 L Monocytes % (1.7 - 9.3 %) 7.1 Eosinophils % (0 - 5 %) 0.1 Basophils % (0.0 - 2.0 %) 0.3 Absolute Granulocytes (1.4 - 6.5 /CUMM) 4.9 Absolute Lymphocytes (1.2 - 3.4 /CUMM) 0.8 L Absolute Monocytes (0.10 - 0.60 /CUMM) 0.4 Absolute Eosinophils (0.0 - 0.7 /CUMM) 0 Absolute Basophils (0.0 - 0.2 /CUMM) 0 Diagnostic Data EKG Results EKG on admission shows atrial fibrillation rate 61, left axis deviation, nonspecific interventricular conduction delay with diffuse ST-T wave abnormalities. No significant change from baseline. CXR Results PATIENT: COURTNEY VIEIRA PRESENT AGE: 67 PATIENT ACCOUNT NO: [id number] : 49 LOCATION: [facility] ORDERING PHYSICIAN: Greg ALARCON SERVICE DATE: 04/10/18 EXAM TYPE: RAD - XRY-CHEST XRAY, TWO VIEWS EXAMINATION: XR CHEST CLINICAL INFORMATION: CHF. Anemia. COMPARISON: Chest radiograph 03/12/2018. TECHNIQUE: 2 views of the chest were obtained. FINDINGS: There is a small right pleural effusion. Coarse linear markings are visualized within the right lung base that may represent a manifestation of subsegmental atelectasis or scar. The cardiac silhouette is enlarged and there is hilar vascular engorgement. Mild prominent center of the interstitial markings without evidence of overt consolidation. No acute osseous finding. IMPRESSION: Cardiomegaly and mild interstitial pulmonary edema. No overt consolidative disease. There is a small right pleural effusion and subsegmental atelectasis or scar within the right lower hemithorax. DICTATED BY: Rigo Ace MD DATE/TIME DICTATED:04/10/181735 AREA OPERATIONS DIRECTOR:LINDY DATE/TIME TRANSCRIBED:04/10/181735 CONFIDENTIAL, DO NOT COPY WITHOUT APPROPRIATE AUTHORIZATION. <Electronically signed in Other Vendor System> SIGNED BY: Rigo Ace MD. 04/10 5292 Assessment/Plan Assessment/Plan Courtney is an unfortunate 67-year-old male with end-stage COPD, CHF with systolic dysfunction and cardiomyopathy and chronic atrial fibrillation. He is now dealing with recurrent anemia and question of GI bleeding versus chronic epistaxis. He has been chronically on Xarelto for anticoagulation for atrial fibrillation. This is currently on hold because of the dropping H&H. Courtney seems fairly stable from a cardiac standpoint at this time. I would continue to hold the Xarelto until there is a source of bleeding that can be addressed. His risk of problems with anemia and GI bleeding is higher than stroke in the short-term. We can restart him on anticoagulants if and when he is no longer bleeding and has been cleared by GI. This may be as an outpatient. I think it is acceptable to continue him on 80 mg twice daily of oral Lasix at this time, unless he needs another transfusion, in which case another dose of IV Lasix would be appropriate. The patient can be removed from telemetry as there is no current indication for it. Consult Acknowledgment - Thank you for your consult request.
--- NOTE | 2018-04-13 11:24 | RADIOLOGY REPORT ---
EXAMINATION: XR PORTABLE CHEST CLINICAL INFORMATION: Shortness of breath with cough and congestion. COMPARISON: 04/10/2018 TECHNIQUE: Portable frontal view of the chest was obtained. The lung bases are not included on this study. FINDINGS: At the time of the previous study, there was felt to be vascular engorgement and increased interstitial markings consistent with CHF and mild interstitial edema. On today's exam, the heart remains enlarged but there may be some mild improvement in the interstitial edema. The lung bases are not included on this study and there may be increased retrocardiac density suggesting atelectasis/collapse/consolidation. Significant atelectasis is present at the right lung base. A small right pleural effusion is probably unchanged. IMPRESSION: Some possible improvement in CHF. Question of new retrocardiac density but imaging is suboptimal as described above.
--- NOTE | 2018-04-13 13:06 | Cons- Pulmonary ---
General Information and HPI Consulting Request Date of Consult: 04/13/18 Requested By: Dr. Bustos Reason for Consult: dyspnea Source of Information: patient History of Present Illness: 67 year old man. Known to me from the office. Admitted for anemia. 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 Recent endoleak repair. Presents for anemia and need for blood transufion. Diuresis is ongoing. CXR with ?retrocardiac density. Copious phlegm, per patient feels that it is coming from sinuses. At respiratory baseline with respect to wheezing and cough, however he is now on high flow oxygen. There is concern for mucus plugging given tenacoius thick garcia sputum. Persistent leg edema but better. No n/v/d/c. No cp, no segura. Allergies/Medications Allergies: Coded Allergies: No Known Allergies (04/10/18) Home Med List: Albuterol Sulfate (Proair Hfa) 90 MCG HFA.AER.AD 2 PUF INH Q4-6 PRN PRN SHORTNESS OF BREATH (Reported) Albuterol Sulfate 2.5 MG/3 ML (0.083 %) VIAL.NEB 1 Vial INH/ABILIO Q4P PRN SHORTNESS OF BREATH (Reported) Budesonide/Formoterol Fumarate (Symbicort 160-4.5 Mcg Inhaler) 160 MCG-4.5 MCG/ ACTUATION HFA.AER.AD 2 PUF INH BID SHORTNESS OF BREATH (Reported) Cyanocobalamin (Vitamin B-12) (B-12) 1,000 MCG TABLET 1 TAB PO DAILY VITAMIN SUPPORT (Reported) Digoxin (Lanoxin) 125 MCG TABLET 1 TAB PO Q48@1700 AFIB Diltiazem HCl (Cardizem Cd) 240 MG CAP.ER.24H 240 MG PO DAILY ATRIAL FIB Ferrous Sulfate 325 MG TABLET.DR 325 MG PO BID Iron supplement Furosemide (Lasix) 80 MG TABLET 1 TAB PO BID CHF Hydralazine HCl 10 MG TABLET 1 TAB PO BID HTN Insulin Aspart (Novolog) (Unknown Strength) VIAL (Unknown Dose) SC SEE SLIDING SCALE DIABETES (Reported) Insulin Detemir (Levemir) 100 UNIT/ML VIAL 10 UNITS SC 0900 DM Insulin Detemir (Levemir) 100 UNIT/ML VIAL 8 UNITS SC AT BEDTIME DM Loperamide HCl (Loperamide) 2 MG CAPSULE 2 CAP PO BID PRN ANTI-DIARRHEAL ( Reported) Metoprolol Tartrate 25 MG TABLET 1 TAB PO BID AFIB Mometasone Furoate (Nasonex) 50 MCG SPRAY.PUMP 1 SPRAY [place] DAILY ALLERGIES ( Reported) Morphine Sulfate (Morphine Sulfate Elixir 10mg/5ml) 10 MG/5 ML SOLUTION 2.5 MG PO Q2P PRN UNKNOWN (Reported) Morphine Sulfate (Morphine Sulfate Elixir 10mg/5ml) 10 MG/5 ML SOLUTION 2.5 MG PO Q2P PRN SHORTNESS OF BREATH Oxycodone HCl/Acetaminophen (Percocet 5-325 MG Tablet) 5 MG-325 MG TABLET 1-2 TAB PO Q4-6 PRN PAIN tylenol alternatively. do not combine. Pantoprazole Sodium (Protonix) 40 MG TABLET.DR 1 TAB PO DAILY ACID REFLUX ( Reported) Prednisone 10 MG TABLET 1 TAB PO DAILY COPD (Reported) Rivaroxaban (Xarelto) 15 MG TABLET 1 TAB PO 1900 AFIB Tiotropium [place] (Spiriva) 18 MCG CAP.W.DEV 1 CAP INH DAILY SHORTNESS OF BREATH (Reported) Current Medications: Current Medications Sig/Eve Start time Last Medication Dose Route Stop Time Status Admin Albuterol Sulfate 3 ML EVERY 4 HRS/AWAKE 04/11 08 AC 04/13 INH 1135 Budesonide/ 2 PUF BID 04/10 2210 AC 04/13 Formoterol Fumarate INH 0850 Cyanocobalamin 1,000 MCG DAILY 04/11 09 AC 04/13 PO 0849 Digoxin 0.125 MG Q48@1700 04/12 1700 AC 04/12 PO 1736 Diltiazem HCl 240 MG DAILY 04/11 09 AC 04/13 PO 0849 Ferrous Sulfate 325 MG TID 04/11 09 AC 04/13 PO 1230 Fluticasone 2 SPRAY DAILY 04/12 1437 AC 04/13 Propionate CESAR 0632 Furosemide 80 MG 7:30 AM, & 4:30 PM 04/11 0730 AC 04/13 PO 0848 Guaifenesin 600 MG Q12 04/13 1036 AC 04/13 PO 1228 Guaifenesin 10 ML .STK-MED ONE 04/12 2126 DC PO 05/24 2127 Guaifenesin/ 10 ML Q6P PRN 04/11 1415 AC 04/12 Dextromethorphan PO 1043 Hydralazine HCl 10 MG BID 04/10 2211 AC 04/13 PO 0849 Insulin Aspart 0 AT BEDTIME 04/11 2100 AC SC Insulin Aspart 0 TIDAC 04/11 0800 AC 04/13 SC 1229 Insulin Detemir 8 UNITS AT BEDTIME 04/11 2100 AC 04/12 SC 2141 Insulin Detemir 10 UNITS 0900 04/11 0900 AC 04/13 SC 0850 Metoprolol Tartrate 25 MG BID 04/10 2212 AC 04/13 PO 0849 Morphine Sulfate 2.5 MG Q2P PRN 04/10 221 AC 04/13 PO 0713 Omeprazole 40 MG DAILY AC 04/11 0700 AC 04/13 PO 0632 Oxycodone/ 2 TAB Q4-6 PRN 04/10 224 AC Acetaminophen PO Oxycodone/ 1 TAB Q4-6 PRN 04/10 221 AC Acetaminophen PO Patient Medication 1 ED ONE ONE 04/12 1545 DC Teaching ED 04/12 1546 Prednisone 10 MG DAILY 04/11 09 AC 04/13 PO 0849 Rivaroxaban 15 MG AT BEDTIME 04/11 2100 DC 04/11 PO 2038 Sodium Chloride 2 SPRAY Q4P PRN 04/10 2215 AC 04/13 CESAR 0718 Tiotropium [place] 1 PUF DAILY 04/11 09 AC 04/13 INH 0849 Review of Systems Comments 18 point review of systems was performed and reviewed. Please see pertinent positives and pertinent negatives in the HPI. Otherwise ROS is negative. 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 FATHER, ; Cause: Myocardial infarct. SISTER, ; Cause: Myocardial infarct. Psychosocial History Where Do You Live? Acute Rehab Who Do You Live With? self Services at Home: None Primary Language: Colombian Smoking Status: Former Smoker Living Will? unknown Power of Forest [employer] Teacher/HCP? unknown Functional Ability ADLs Independent: dressing, eating, toileting, bathing. Ambulation: independent IADLs Independent: shopping, housework, finances, food prep, telephone, transportation , medication admin. Exam & Diagnostic Data Last 24 Hrs of Vital Signs/I&O Vital Signs Date Time Temp Pulse Resp B/P B/P Pulse O2 O2 Flow FiO2 Mean Ox Delivery Rate 04/13 1038 Nasal 5.0L Cannula 04/13 1031 Nasal 5.0L Cannula 04/13 0938 91 Nasal 5.0L Cannula 04/13 0849 124/74 04/13 0849 124/74 04/13 0726 91 Nasal 5.0L Cannula 04/13 0642 97.9 74 20 122/66 95 Nasal 5.0L Cannula 04/13 0549 72 94 04/13 0313 62 94 04/13 0016 66 94 04/13 0000 94 BIPAP 4.0L 04/12 2347 75 95 04/12 2323 98.1 82 20 114/70 93 Nasal 5.0L Cannula 04/12 2135 60 112/78 04/12 2135 98.2 60 112/78 04/12 1736 60 112/78 04/12 1622 97 Nasal 4.0L Cannula 04/12 1600 Nasal 4.0L Cannula 04/12 1434 98.2 60 20 112/78 89 Nasal Cannula Intake & Output 04/13 1600 04/13 0800 04/13 0000 Intake Total 400 Output Total 531 480 4309 Balance -625 -450 -1150 Intake, Oral 400 Output, Urine 503 505 7369 Patient 178 lb Weight Weight Bed scale Measurement Method Physical Exam Other Physical Findings: gen - awake and alert head/neck - high flow nasal cannul cvs -s1, s2 lungs - b/l rare rhonchi abd - soft, bs+ ext 1-2+ edema Last 48 Hrs of Labs/Sridhar: Laboratory Tests 04/13/18 0702: Anion Gap 8, Estimated GFR 30 L, BUN/Creatinine Ratio 21.8, CBC w Diff NO MAN DIFF REQ, RBC 3.10 L, MCV 87.3, MCH 29.4, MCHC 33.6, RDW 17.8 H, MPV 8.1, Gran % 81.4 H, Lymphocytes % 10.9 L, Monocytes % 7.1, Eosinophils % 0.3, Basophils % 0.3, Absolute Granulocytes 7.6 H, Absolute Lymphocytes 1.0 L, Absolute Monocytes 0.7 H, Absolute Eosinophils 0, Absolute Basophils 0 04/13/18 0045: CBC w Diff MAN DIFF ORDERED, RBC 3.06 L, MCV 84.9, MCH 27.8, MCHC 32.8 L, RDW 17.3 H, MPV 7.9, Gran % 84.4 H, Lymphocytes % 9.5 L, Monocytes % 5.8, Eosinophils % 0, Basophils % 0.3, Absolute Granulocytes 8.1 H, Segmented Neutrophils 82 H, Absolute Lymphocytes 0.9 L, Lymphocytes 9 L, Monocytes 7, Absolute Monocytes 0.6, Absolute Eosinophils 0, Basophils 2, Absolute Basophils 0, Platelet Estimate ADEQUATE, Polychromasia 1+, Hypochromic-Microcytic 1+, Poikilocytosis 1+, Basophilic Stippling 1+, Ovalocytes 1+, Stomatocytes FEW, Fld Total RBCs Counted 100 04/12/181999: CBC w Diff Cancelled, WBC Cancelled, RBC Cancelled, Hgb Cancelled, Hct Cancelled , MCV Cancelled, MCH Cancelled, MCHC Cancelled, RDW Cancelled, Plt Count Cancelled, MPV Cancelled 04/12/18 0651: Anion Gap 8, Estimated GFR 28 L, BUN/Creatinine Ratio 21.7, Vitamin B12 > 1000 H, CBC w Diff NO MAN DIFF REQ, RBC 2.35 L, MCV 85.3, MCH 28.4, MCHC 33.3, RDW 17.5 H, MPV 7.8, Gran % 79.1 H, Lymphocytes % 13.4 L, Monocytes % 7.1, Eosinophils % 0.1, Basophils % 0.3, Absolute Granulocytes 4.9, Absolute Lymphocytes 0.8 L, Absolute Monocytes 0.4, Absolute Eosinophils 0, Absolute Basophils 0 Assessment/Plan Impression/Plan: Impression 67 year old man * sinusitis vs traceobronchitis * desaturation maybe secondary to anemia and perhaps mucus plugging Plan -begin solumedrol 40mg iv q12h for congestion/phlegm -send sputum for culture -copious sputum needs to be addressed with MUCOMYST nebulized BID for 72 hrs max , please alert respiratory therapy regarding this as it is nebulized -chest PT, flutter device and incentive spirometry aggressively -cardiology evaluation -repeat CXR 04/14 given ?retrocardiac density -diuresis -TRC/Nebs DVT prophylaxis at all times Consult Acknowledgment - Thank you for your consult request.
--- NOTE | 2018-04-13 13:48 | Discharge Summary ---
Visit Information Visit Dates Admission Date: 04/10/18 Discharge Date: 04/24/2018 Hospital Course Course Attending Physician: Sangeeta Garcia MD Primary Care Physician: Prabhakar Pearce MD Hospital Course: This is 67 year old male with past medical history of COPD on 4 L of home oxygen and nocturnal BiPAP followed by Dr. So, atrial fibrillation on [place] etc. been followed by Dr. Walton, diabetes mellitus, hypertension, hyperlipidemia, abdominal aortic aneurysm status post repair, heart failure with reduced ejection fraction EF of 30-35%, GERD, prostate cancer, chronic kidney disease was brought in from [facility] after his blood work showed acute anemia. On presentation he was afebrile, his heart rate was around 80s, respiratory rate of 20, blood pressure was 134/70, he was saturating 91% on 4 L. His laboratory was significant for an hemoglobin of 7.0 (baseline 8.0), MCV of 83.4, BUN/ creatinine of 63/2.0 (baseline creatinine 2.0) calcium of 8.8, albumin of 2.8, LFTs negative, BNP 14,000. Chest x-ray showed many edema and right-sided effusion. He was admitted to the telemetry floor for treatment of symptomatic anemia along with respiratory failure and small right-sided pleural effusion. Problem #1 Acute on chronic blood loss anemia. Patient was found to have iron deficiency anemia previously and was already being treated with ferrous sulfate as outpatient however the sudden drop was of concern. He did initially have epistaxis upon presentation however the epistaxis was not significant to explain the degree of anemia. His stools were guaiaced and found to be positive. GI was consulted, however as he was on blood thinner, this had to be discontinued prior to any sort of EGD/colonoscopy. The blood thinner was discontinued on 04/12/2018 with the plan to do outpatient EGD/ colonoscopy for further evaluation of the acute on chronic blood loss anemia. His epistaxis continued to improve and bleeding was minimall on day 3 of admission. He was transfused total of 3 units of packed red cells, with final hemoglobin and stable at 9.1. Ferrous sulfate was continued as inpatient. The plan towards Xarelto was evaluated with cardiology Dr. Walton and it was deemed that benefits outweighed risk therefore Xarelto was put on hold even though he does have a history of atrial fibrillation with high chads score until the colonoscopy/EGD was performed to find a source of bleeding. #2 Acute on Chronic respiratory failure 2/2 to copd exacerbation Mr. Vieira was severely congested with serious mucus plugging and productive cough. Initially this was thought to be secondary to fluid overload, however due to presence of wheezing along with increased oxygen requirement, allergy was consulted, aggressive chest physical therapy along with Mucomyst and Jess[place] Therapy was started. He was started on IV Solu-Medrol 40 every 12 with plan for taper. #3 CHF exacerbation with right-sided pleural effusion. * As with diuresis, he was continued on his home dosage of 80 mg by mouth 3 times a day of Lasix along with monitoring of electrolytes and kidney function. * He was given additional one time doses of IV Lasix 40 mg every time he received a transfusion to prevent fluid overload as from past history, he can easily be overloaded with fluid after transfusion. #4 epistaxis. * This seemed to be due to extremely dry nose and sinus infection while being on Xarelto he continued to have minor bleeding from the nose with dried blood and recurrent feeding every time he would remove the scab. Humidified oxygen was used, Xarelto was discontinued for plan of a GI procedure, both this along with breaking up of mucus help with epistaxis and it gradually continued to reduce during the hospital course. #5 diabetes mellitus * He was continued on 8 units of Levemir at bedtime along with NovoLog sliding scale with tight at at bedtime fingerstick monitoring. Insulin was readjusted while he was on steroids to control sugar optimally. * ct to monitor fingersticks. When the previous admission patient was a DNR, at this admission his CODE STATUS was full code and this was confirmed with the patient. Initially the DVT prophylaxis was maintained with Xarelto however upon discontinuation were continued. Allergies: Coded Allergies: No Known Allergies (04/10/18) Significant Procedures: SERVICE DATE: 04/10/18 EXAM TYPE: RAD - XRY-CHEST XRAY, TWO VIEWS EXAMINATION: XR CHEST CLINICAL INFORMATION: CHF. Anemia. COMPARISON: Chest radiograph 03/12/2018. TECHNIQUE: 2 views of the chest were obtained. FINDINGS: There is a small right pleural effusion. Coarse linear markings are visualized within the right lung base that may represent a manifestation of subsegmental atelectasis or scar. The cardiac silhouette is enlarged and there is hilar vascular engorgement. Mild prominent center of the interstitial markings without evidence of overt consolidation. No acute osseous finding. IMPRESSION: Cardiomegaly and mild interstitial pulmonary edema. No overt consolidative disease. There is a small right pleural effusion and subsegmental atelectasis or scar within the right lower hemithorax. SERVICE DATE: 04/12/181556 EXAM TYPE: RAD - XRY-SINUSES, COMPLETE EXAMINATION: XR SINUSES CLINICAL INFORMATION: Epistaxes. Nasal blockage. Evaluate for traumatic injury. COMPARISON: None TECHNIQUE: Paranasal sinuses, 3 views FINDINGS: Nasal bones are intact and the nasal septum is midline in position. Paranasal sinuses are well-developed and well aerated; no air-fluid levels. The orbital rims are intact. The patient is edentulous. The mastoid air cells are clear. IMPRESSION: 1. No evidence of paranasal sinus disease. 2. Nasal bones are intact; no acute fracture. SERVICE DATE: 04/13/18102 EXAM TYPE: RAD - XRY-PORTABLE CHEST XRAY EXAMINATION: XR PORTABLE CHEST CLINICAL INFORMATION: Shortness of breath with cough and congestion. COMPARISON: 04/10/2018 TECHNIQUE: Portable frontal view of the chest was obtained. The lung bases are not included on this study. FINDINGS: At the time of the previous study, there was felt to be vascular engorgement and increased interstitial markings consistent with CHF and mild interstitial edema. On today's exam, the heart remains enlarged but there may be some mild improvement in the interstitial edema. The lung bases are not included on this study and there may be increased retrocardiac density suggesting atelectasis/collapse/consolidation. Significant atelectasis is present at the right lung base. A small right pleural effusion is probably unchanged. IMPRESSION: Some possible improvement in CHF. Question of new retrocardiac density but imaging is suboptimal as described above. Disposition Summary Disposition Principal Diagnosis: #1 Acute on Chronic Blood loss anemia Additional Diagnosis: #2 Acute on chrnoic respiratory failure 2/2 to copd exacerbation #3 CHF exacerbation with right-sided plueral effusion #4 Epistaxis #5 Diabetes Mellitus Discharge Disposition: home or self care Discharge Instructions General Discharge Information Code Status: Full Code Patient's Diet: heat healthy diet Patient's Activity: as tolerated Follow-Up Instructions/Appts: Please follow-up with your PCP and tubing tester within 1 week of discharge. Please follow up with your curer acid drum within one week of discharge Medications at Discharge Discharge Medications: Stop taking the following medications: Hydralazine HCl (Hydralazine HCl) 10 MG TABLET ORAL TWICE DAILY Qty = 30 Continue taking these medications: Tiotropium [place] (Spiriva) 18 MCG CAP.W.DEV 1 Capsule Inhale through mouth DAILY Comments: NOT GIVEN IN HOSPITAL Budesonide/Formoterol Fumarate (Symbicort 160-4.5 Mcg Inhaler) 160 MCG-4.5 MCG/ ACTUATION HFA.AER.AD 2 Puff Inhale through mouth TWICE DAILY Comments: Last Taken: 04/24/18 Time: 08:05 AM Albuterol Sulfate (Proair Hfa) 90 MCG HFA.AER.AD 2 Puff Inhale through mouth EVERY 4-6 HOURS NEEDED as needed for SHORTNESS OF BREATH Comments: NOT GIVEN IN HOSPITAL Albuterol Sulfate (Albuterol Sulfate) 2.5 MG/3 ML (0.083 %) VIAL.NEB 1 Vial Inhale Solution EVERY 4 HOURS NEEDED as needed for SHORTNESS OF BREATH Comments: Last Taken: 04/24/18 Time: 11:27 AM Pantoprazole Sodium (Protonix) 40 MG TABLET. 1 Tablet ORAL DAILY Comments: Last Taken: 04/24/18 Time: 05:54 AM OMEPRAZOLE GIVEN IN HOSPITAL Ferrous Sulfate (Ferrous Sulfate) 325 MG TABLET. 325 Milligram ORAL TWICE DAILY Days = 30 Comments: Last Taken: 04/24/18 Time: 14:30 PM Cyanocobalamin (Vitamin B-12) (B-12) 1,000 MCG TABLET 1 Tablet ORAL DAILY Comments: Last Taken: 04/24/18 Time: 08:04 AM Loperamide HCl (Loperamide) 2 MG CAPSULE 2 Capsule ORAL TWICE DAILY as needed for ANTI-DIARRHEAL Comments: NOT GIVEN WHILE IN HOSPITAL Oxycodone HCl/Acetaminophen (Percocet 5-325 MG Tablet) 5 MG-325 MG TABLET 1-2 Tablet ORAL EVERY 4-6 HOURS as needed for PAIN Qty = 30 Instructions: tylenol alternatively. do not combine. Comments: NOT GIVEN IN HOSPITAL Rivaroxaban (Xarelto) 15 MG TABLET 1 Tablet ORAL 1900 Qty = 30 Comments: NOT GIVEN IN HOSPITAL Digoxin (Lanoxin) 125 MCG TABLET 1 Tablet ORAL EVERY 48 HOURS (Every 2 days) Qty = 30 Comments: Last Taken: 04/22/18 Time: 16:14 PM Metoprolol Tartrate (Metoprolol Tartrate) 25 MG TABLET 1 Tablet ORAL TWICE DAILY Qty = 30 Comments: LAST GIVEN 03/16/18 @ 0846 Morphine Sulfate (Morphine Sulfate Elixir 10mg/5ml) 10 MG/5 ML SOLUTION 2.5 Milligram ORAL EVERY 2 HOURS NEEDED as needed for SHORTNESS OF BREATH Qty = 1 Comments: NOT GIVEN IN HOSPITAL Furosemide (Lasix) 80 MG TABLET 1 Tablet ORAL TWICE DAILY Qty = 30 Comments: Last Taken: 04/24/18 Time: 08:05 AM Insulin Detemir (Levemir) 100 UNIT/ML VIAL 10 Units Inject into fatty tissue 0900 Qty = 1 Comments: Last Taken: 04/24/18 Time: 08:05 AM Insulin Detemir (Levemir) 100 UNIT/ML VIAL 8 Units Inject into fatty tissue AT BEDTIME Qty = 1 Comments: Last Taken: 04/23/18 Time: 21:33 PM Diltiazem HCl (Cardizem Cd) 240 MG CAP.ER.24H 240 Milligram ORAL DAILY Qty = 30 Comments: Last Taken: 04/24/18 Time: 08:05 AM Prednisone (Prednisone) 10 MG TABLET 1 Tablet ORAL DAILY Comments: Last Taken: 04/24/18 Time: 08:04 AM Mometasone Furoate (Nasonex) 50 MCG SPRAY.PUMP 1 [place] Both sides of nose DAILY Comments: NOT GIVEN IN HOSPITAL Insulin Aspart (Novolog) (Unknown Strength) VIAL Unknown Dose Inject into fatty tissue SEE SLIDING SCALE Comments: Last Taken: 04/23/18 Time: 17:02 PM Morphine Sulfate (Morphine Sulfate Elixir 10mg/5ml) 10 MG/5 ML SOLUTION 2.5 Milligram ORAL EVERY 2 HOURS NEEDED as needed for UNKNOWN Comments: NOT GIVEN IN HOSPITAL Start taking the following new medications: Prednisone (Prednisone) 10 MG TABLET 1 Tablet ORAL TWICE DAILY Qty = 30 No Refills Instructions: As below Take 04/24-04/25 20 MG 04/26 onwards 10 MG daily. Copies To: Ramses CR,Prabhakar Cherry; Anton CR,Landry Tejada MD,Leonidas Whaley MD Review Statement Documenting Attending: Sangeeta Garcia MD Other Findings: Patient had EGD and colonsocpy suggestive of multiple polyps that were resected. Resume anticoagulation. No active bleeding reported. Continue with prednisone taper as per pulmonary. Plan is to discharge home with PT. SARTHAK Cardiology Gastroenterology Pulmoanry FOLLOW UP Pulmonary in 2 weeks of discharge Gastroenterology Dr Walton in 2 weeks for pathology Cardiology in 3-4 weeks.
[2018-04-13 14:40] VITALS: BP 120/78
--- NOTE | 2018-04-13 17:18 | PN- Gastroenterology ---
Assessment/Plan GI Assessment/Recommendations: ASSESSMENT: 1. Sinusitis 2. Tracheobronchitis 3. Anemia with hemoccult Positive Stools RECOMMENDATIONS: 1. GI will evaluate patient again on Monday. 2. If patient appears that he is stable to undergo prep on Monday will do EGD/ Colon prior to discharge on Monday. Patient will need both cardiology and pulmonary clearance prior to bprocedures given overall poor cardiopulmonary clinical condition at this time. Subjective Subjective: Patient has had no further epistaxis. He has received transfusion of PRBC and his H/H is stable. Patient is undergoing treatment for tracheal bronchitis/ sinusitis. He has having copious sputum/phlegm and undergoing chest PT. Further he is undergoing evaluation for a retrocardiac density seen on chest x- ray. Objective Vital Signs and I&Os Vital Signs Date Time Temp Pulse Resp B/P B/P Pulse O2 O2 Flow FiO2 Mean Ox Delivery Rate 04/13 1605 94 Nasal 45% Cannula 04/13 1440 97.1 60 20 120/78 97 Nasal Cannula 04/13 1038 Nasal 5.0L Cannula 04/13 1031 Nasal 5.0L Cannula 04/13 0938 91 Nasal 5.0L Cannula 04/13 0849 124/74 04/13 0849 124/74 04/13 0726 91 Nasal 5.0L Cannula 04/13 0642 97.9 74 20 122/66 95 Nasal 5.0L Cannula 04/13 0549 72 94 04/13 0313 62 94 04/13 0016 66 94 04/13 0000 94 BIPAP 4.0L 04/12 2347 75 95 04/12 2323 98.1 82 20 114/70 93 Nasal 5.0L Cannula 04/12 2135 60 112/78 04/12 2135 98.2 60 112/78 04/12 1736 60 112/78 Intake & Output 04/13 1600 04/13 0400 04/12 1600 04/12 0400 04/11 1600 04/11 0400 Intake Total 420 400 720 220 550 Output Total 1725 1550 600 150 525 600 Balance -1305 -1150 120 70 25 -600 Intake, IV 20 500 Intake, Oral 400 400 220 220 550 Number 2 3 Bowel Movements Output, Urine 1725 1550 600 150 525 600 Patient 178 lb 183 lb 179 lb Weight Weight Bed scale Bed scale Bed scale Measurement Method Physical Exam General Appearance: moderate distress Head: atraumatic Abdomen: soft, non-tender Neurologic/Psychiatric: awake, alert, oriented x 3 Skin: intact, warm/dry, pallor Current Medications: Current Medications Sig/Eve Start time Last Medication Dose Route Stop Time Status Admin Acetylcysteine 2 ML BID 04/13 2100 AC INH Albuterol Sulfate 3 ML EVERY 4 HRS/AWAKE 04/11 08 04/13 INH 1605 Budesonide/ 2 PUF BID 04/10 2210 04/13 Formoterol Fumarate INH 0850 Cyanocobalamin 1,000 MCG DAILY 04/11 09 04/13 PO 0849 Digoxin 0.125 MG Q48@1700 04/12 1700 AC 04/12 PO 1736 Diltiazem HCl 240 MG DAILY 04/11 09 04/13 PO 0849 Ferrous Sulfate 325 MG TID 04/11 09 04/13 PO 1230 Fluticasone 2 SPRAY DAILY 04/12 1437 04/13 Propionate CESAR 0632 Furosemide 80 MG 7:30 AM, & 4:30 PM 04/11 07 04/13 PO 1655 Guaifenesin 600 MG Q12 04/13 1036 04/13 PO 1228 Guaifenesin 10 ML .STK-MED ONE 04/12 2126 DC PO 04/12 2127 Guaifenesin/ 10 ML Q6P PRN 04/11 141 04/12 Dextromethorphan PO 1043 Hydralazine HCl 10 MG BID 04/10 2211 AC 04/13 PO 0849 Insulin Aspart 0 AT BEDTIME 04/11 2100 SC Insulin Aspart 0 TIDAC 04/11 08 04/13 SC 1229 Insulin Detemir 8 UNITS AT BEDTIME 04/11 2100 AC 04/12 SC 2141 Insulin Detemir 10 UNITS 0904/11 09 04/13 SC 0850 Methylprednisolone 40 MG Q12 04/13 1317 04/13 IV 1422 Metoprolol Tartrate 25 MG BID 04/10 2212 04/13 PO 0849 Morphine Sulfate 2.5 MG Q2P PRN 04/10 2215 04/13 PO 0713 Omeprazole 40 MG DAILY AC 04/11 0700 04/13 PO 0632 Oxycodone/ 2 TAB Q4-6 PRN 04/10 224 AC Acetaminophen PO Oxycodone/ 1 TAB Q4-6 PRN 04/10 2215 AC Acetaminophen PO Prednisone 40 MG DAILY 04/13 1302 DC PO Prednisone 10 MG DAILY 04/11 0900 DC 04/13 PO 0849 Sodium Chloride 2 SPRAY Q4P PRN 04/10 2215 AC 04/13 CESAR 0718 Tiotropium [place] 1 PUF DAILY 04/11 09 AC 04/13 INH 0849 Results Pertinent Lab Results: Laboratory Tests 04/13 04/13 0702 0045 Chemistry Sodium (137 - 145 mmol/L) 141 Potassium (3.5 - 5.1 mmol/L) 4.3 Chloride (98 - 107 mmol/L) 90 L Carbon Dioxide (22 - 30 mmol/L) 43 H Anion Gap (5 - 16) 8 BUN (9 - 20 mg/dL) 48 H Creatinine (0.7 - 1.2 mg/dL) 2.2 H Estimated GFR (>60 ml/min) 30 L BUN/Creatinine Ratio (7 - 25 %) 21.8 Hematology CBC w Diff NO MAN DIFF REQ MAN DIFF ORDERED WBC (4.8 - 10.8 /CUMM) 9.4 9.6 RBC (4.70 - 6.10 /CUMM) 3.10 L 3.06 L Hgb (14.0 - 18.0 G/DL) 9.1 L 8.5 L Hct (42 - 52 %) 27.1 L 26.0 L MCV (80.0 - 94.0 FL) 87.3 84.9 MCH (27.0 - 31.0 PG) 29.4 27.8 MCHC (33.0 - 37.0 G/DL) 33.6 32.8 L RDW (11.5 - 14.5 %) 17.8 H 17.3 H Plt Count (130 - 400 /CUMM) 227 222 MPV (7.4 - 10.4 FL) 8.1 7.9 Gran % (42.2 - 75.2 %) 81.4 H 84.4 H Lymphocytes % (20.5 - 51.1 %) 10.9 L 9.5 L Monocytes % (1.7 - 9.3 %) 7.1 5.8 Eosinophils % (0 - 5 %) 0.3 0 Basophils % (0.0 - 2.0 %) 0.3 0.3 Absolute Granulocytes (1.4 - 6.5 /CUMM) 7.6 H 8.1 H Segmented Neutrophils (42.2 - 75.2 %) 82 H Absolute Lymphocytes (1.2 - 3.4 /CUMM) 1.0 L 0.9 L Lymphocytes (20.5 - 51.1 %) 9 L Monocytes (1.7 - 9.3 %) 7 Absolute Monocytes (0.10 - 0.60 /CUMM) 0.7 H 0.6 Absolute Eosinophils (0.0 - 0.7 /CUMM) 0 0 Basophils (0.0 - 2.0 %) 2 Absolute Basophils (0.0 - 0.2 /CUMM) 0 0 Platelet Estimate (ADEQUATE) ADEQUATE Polychromasia 1+ Hypochromic-Microcytic 1+ Poikilocytosis 1+ Basophilic Stippling 1+ Ovalocytes 1+ Stomatocytes FEW Other Body Source Fld Total RBCs Counted (%) 100 04/12 0651 Chemistry Sodium (137 - 145 mmol/L) 141 Potassium (3.5 - 5.1 mmol/L) 4.1 Chloride (98 - 107 mmol/L) 89 L Carbon Dioxide (22 - 30 mmol/L) 44 H Anion Gap (5 - 16) 8 BUN (9 - 20 mg/dL) 50 H Creatinine (0.7 - 1.2 mg/dL) 2.3 H Estimated GFR (>60 ml/min) 28 L BUN/Creatinine Ratio (7 - 25 %) 21.7 Vitamin B12 (239 - 931 pg/mL) > 1000 H Hematology CBC w Diff Cancelled NO MAN DIFF REQ WBC (4.8 - 10.8 /CUMM) Cancelled 6.1 RBC (4.70 - 6.10 /CUMM) Cancelled 2.35 L Hgb (14.0 - 18.0 G/DL) Cancelled 6.7 *L Hct (42 - 52 %) Cancelled 20.0 L MCV (80.0 - 94.0 FL) Cancelled 85.3 MCH (27.0 - 31.0 PG) Cancelled 28.4 MCHC (33.0 - 37.0 G/DL) Cancelled 33.3 RDW (11.5 - 14.5 %) Cancelled 17.5 H Plt Count (130 - 400 /CUMM) Cancelled 217 MPV (7.4 - 10.4 FL) Cancelled 7.8 Gran % (42.2 - 75.2 %) 79.1 H Lymphocytes % (20.5 - 51.1 %) 13.4 L Monocytes % (1.7 - 9.3 %) 7.1 Eosinophils % (0 - 5 %) 0.1 Basophils % (0.0 - 2.0 %) 0.3 Absolute Granulocytes (1.4 - 6.5 /CUMM) 4.9 Absolute Lymphocytes (1.2 - 3.4 /CUMM) 0.8 L Absolute Monocytes (0.10 - 0.60 /CUMM) 0.4 Absolute Eosinophils (0.0 - 0.7 /CUMM) 0 Absolute Basophils (0.0 - 0.2 /CUMM) 0 04/11 0625 Chemistry Sodium (137 - 145 mmol/L) 139 Potassium (3.5 - 5.1 mmol/L) 4.2 Chloride (98 - 107 mmol/L) 88 L Carbon Dioxide (22 - 30 mmol/L) 42 H Anion Gap (5 - 16) 9 BUN (9 - 20 mg/dL) 50 H Creatinine (0.7 - 1.2 mg/dL) 2.0 H Estimated GFR (>60 ml/min) 33 L BUN/Creatinine Ratio (7 - 25 %) 25.0 Hematology CBC w Diff NO MAN DIFF REQ WBC (4.8 - 10.8 /CUMM) 7.3 RBC (4.70 - 6.10 /CUMM) 2.76 L Hgb (14.0 - 18.0 G/DL) 7.7 L Hct (42 - 52 %) 23.9 L MCV (80.0 - 94.0 FL) 86.4 MCH (27.0 - 31.0 PG) 27.7 MCHC (33.0 - 37.0 G/DL) 32.1 L RDW (11.5 - 14.5 %) 17.7 H Plt Count (130 - 400 /CUMM) 261 MPV (7.4 - 10.4 FL) 8.2 Gran % (42.2 - 75.2 %) 80.4 H Lymphocytes % (20.5 - 51.1 %) 13.2 L Monocytes % (1.7 - 9.3 %) 6.0 Eosinophils % (0 - 5 %) 0.1 Basophils % (0.0 - 2.0 %) 0.3 Absolute Granulocytes (1.4 - 6.5 /CUMM) 5.8 Absolute Lymphocytes (1.2 - 3.4 /CUMM) 1.0 L Absolute Monocytes (0.10 - 0.60 /CUMM) 0.4 Absolute Eosinophils (0.0 - 0.7 /CUMM) 0 Absolute Basophils (0.0 - 0.2 /CUMM) 0
[2018-04-13 22:01] VITALS: BP 116/78
[2018-04-14 06:54] VITALS: BP 112/72
[2018-04-14 08:25] LABS: ABSOLUTE BASOPHIL COUNT 0 /CUMM (0.0-0.2); ABSOLUTE EOSINOPHIL COUNT 0 /CUMM (0.0-0.7); ABSOLUTE GRANULOCYTE CT 7.1 /CUMM (1.4-6.5); ABSOLUTE LYMPH COUNT 0.6 /CUMM (1.2-3.4); ABSOLUTE MONOCYTE COUNT 0.1 /CUMM (0.10-0.60); BASOPHIL % 0 % (0.0-2.0); EOSINOPHIL % 0 % (0-5); HEMATOCRIT 27.1 % (42-52); MEAN CORPUSCULAR HGB CONC 32.8 G/DL (33.0-37.0); MEAN CORPUSCULAR VOLUME 85.5 FL (80.0-94.0); MEAN PLATELET VOLUME 8.5 FL (7.4-10.4); RBC DISTRIBUTION WIDTH 17.9 % (11.5-14.5); RED BLOOD CELL CT 3.17 /CUMM (4.70-6.10); WHITE BLOOD CELL COUNT 7.8 /CUMM (4.8-10.8)
--- NOTE | 2018-04-14 09:25 | RADIOLOGY REPORT ---
EXAMINATION: XR PORTABLE CHEST CLINICAL INFORMATION: Cough, congestion. COMPARISON: April 13, 2018 and studies dating back to February 06, 2016 TECHNIQUE: Portable frontal view of the chest was obtained. FINDINGS: There is a similar appearance to prior days study other than for some mild improvement of right base disease. Retrocardiac density noted consistent with atelectasis or pneumonitis. There remains some chronic interstitial lung disease at the lung bases. No pneumothorax. There appears be a small right pleural effusion with some residual right base atelectasis. IMPRESSION: Chronic interstitial lung disease with superimposed airspace disease similar to previous day's study.
[2018-04-14 10:17] LABS: PLATELET COUNT 224 /CUMM (130-400)
--- NOTE | 2018-04-14 11:50 | PN- Pulmonary ---
Subjective HPI/Critical Care Issues: Appears much improved IN good sprits DOing well Anemia work up ongoing REcent epistaxis now better s/p transfusion ONgoing sputum production Objective Current Medications: Current Medications Sig/Eve Start time Last Medication Dose Route Stop Time Status Admin Acetylcysteine 2 ML BID 04/13 2100 AC 04/14 INH 0850 Albuterol Sulfate 3 ML EVERY 4 HRS/AWAKE 04/11 08 AC 04/14 INH 0849 Budesonide/ 2 PUF BID 04/10 221 04/14 Formoterol Fumarate INH 0804 Cyanocobalamin 1,000 MCG DAILY 04/11 09 AC 04/14 PO 0802 Digoxin 0.125 MG Q48@1700 04/12 1700 AC 04/12 PO 1736 Diltiazem HCl 240 MG DAILY 04/11 09 AC 04/14 PO 0802 Ferrous Sulfate 325 MG TID 04/11 09 AC 04/14 PO 0802 Fluticasone 2 SPRAY DAILY 04/12 1437 AC 04/14 Propionate CESAR 0805 Furosemide 80 MG 7:30 AM, & 4:30 PM 04/11 0730 04/14 PO 0802 Guaifenesin 600 MG Q12 04/13 1036 04/14 PO 0802 Guaifenesin/ 10 ML Q6P PRN 04/11 1415 AC 04/14 Dextromethorphan PO 0916 Hydralazine HCl 10 MG BID 04/10 221 AC 04/14 PO 0802 Insulin Aspart 0 AT BEDTIME 04/11 2100 SC Insulin Aspart 0 TIDAC 04/11 08 04/14 SC 0805 Insulin Detemir 8 UNITS AT BEDTIME 04/11 2100 AC 04/12 SC 2141 Insulin Detemir 10 UNITS 04/11 0900 04/14 SC 0805 Methylprednisolone 40 MG Q12 04/13 1317 04/14 IV 0900 Metoprolol Tartrate 25 MG BID 04/10 221 04/14 PO 0802 Morphine Sulfate 2.5 MG Q2P PRN 04/10 2215 04/14 PO 0916 Omeprazole 40 MG DAILY AC 04/11 07 AC 04/14 PO 0635 Oxycodone/ 2 TAB Q4-6 PRN 04/10 224 AC Acetaminophen PO Oxycodone/ 1 TAB Q4-6 PRN 04/10 2215 AC Acetaminophen PO Potassium Chloride 40 MEQ .STK-MED ONE 04/13 1616 DC PO 04/13 1617 Prednisone 40 MG DAILY 04/13 1302 DC PO Prednisone 10 MG DAILY 04/11 0900 DC 04/13 PO 0849 Sodium Chloride 2 SPRAY Q4P PRN 04/10 2215 AC 04/13 CESAR 0718 Tiotropium [place] 1 PUF DAILY 04/11 0900 AC 04/14 INH 0804 Trimethoprim/ 1 TAB BID 04/14 1145 UNVr Sulfamethoxazole PO Warfarin Sodium 5 MG .STK-MED ONE 04/13 1617 DC PO 04/13 1618 Vital Signs & I&O Last 24 Hrs of Vitals and I&O: Vital Signs Date Time Temp Pulse Resp B/P B/P Pulse O2 O2 Flow FiO2 Mean Ox Delivery Rate 04/14 0856 92 Nasal 5.0L Cannula 04/14 0802 88 114/70 04/14 0802 88 114/70 04/14 0800 91 Nasal 5.0L Cannula 04/14 0654 98.3 87 20 112/72 90 Nasal Cannula 04/14 0556 90 95 04/14 0245 71 93 04/14 0007 72 92 04/14 0000 94 Nasal 45% Cannula 04/13 2250 77 91 04/13 2201 99.5 78 20 116/78 87 04/13 2110 88 Nasal 40% Cannula 04/13 2036 89 142/68 04/13 2031 89.0 04/13 1915 94 Nasal 45% Cannula 04/13 1743 91 Nasal 45% Cannula 04/13 1605 94 Nasal 45% Cannula 04/13 1440 97.1 60 20 120/78 97 Nasal Cannula Intake & Output 04/14 1600 04/14 0800 04/14 0000 Intake Total 60 200 Output Total 300 700 Balance -240 -500 Intake, Oral 60 200 Output, Urine 300 700 Patient 182 lb Weight Laboratory Tests 04/14 04/13 0625 0702 Chemistry Sodium (137 - 145 mmol/L) 144 141 Potassium (3.5 - 5.1 mmol/L) 4.8 4.3 Chloride (98 - 107 mmol/L) 92 L 90 L Carbon Dioxide (22 - 30 mmol/L) 40 H 43 H Anion Gap (5 - 16) 12 8 BUN (9 - 20 mg/dL) 52 H 48 H Creatinine (0.7 - 1.2 mg/dL) 1.9 H 2.2 H Estimated GFR (>60 ml/min) 35 L 30 L BUN/Creatinine Ratio (7 - 25 %) 27.4 H 21.8 Hematology CBC w Diff NO MAN DIFF REQ NO MAN DIFF REQ WBC (4.8 - 10.8 /CUMM) 7.8 9.4 RBC (4.70 - 6.10 /CUMM) 3.17 L 3.10 L Hgb (14.0 - 18.0 G/DL) 8.9 L 9.1 L Hct (42 - 52 %) 27.1 L 27.1 L MCV (80.0 - 94.0 FL) 85.5 87.3 MCH (27.0 - 31.0 PG) 28.0 29.4 MCHC (33.0 - 37.0 G/DL) 32.8 L 33.6 RDW (11.5 - 14.5 %) 17.9 H 17.8 H Plt Count (130 - 400 /CUMM) 224 227 MPV (7.4 - 10.4 FL) 8.5 8.1 Gran % (42.2 - 75.2 %) 91.0 H 81.4 H Lymphocytes % (20.5 - 51.1 %) 7.4 L 10.9 L Monocytes % (1.7 - 9.3 %) 1.6 L 7.1 Eosinophils % (0 - 5 %) 0 0.3 Basophils % (0.0 - 2.0 %) 0 0.3 Absolute Granulocytes (1.4 - 6.5 /CUMM) 7.1 H 7.6 H Absolute Lymphocytes (1.2 - 3.4 /CUMM) 0.6 L 1.0 L Absolute Monocytes (0.10 - 0.60 /CUMM) 0.1 0.7 H Absolute Eosinophils (0.0 - 0.7 /CUMM) 0 0 Absolute Basophils (0.0 - 0.2 /CUMM) 0 0 04/13 Hematology CBC w Diff MAN DIFF ORDERED Cancelled WBC (4.8 - 10.8 /CUMM) 9.6 Cancelled RBC (4.70 - 6.10 /CUMM) 3.06 L Cancelled Hgb (14.0 - 18.0 G/DL) 8.5 L Cancelled Hct (42 - 52 %) 26.0 L Cancelled MCV (80.0 - 94.0 FL) 84.9 Cancelled MCH (27.0 - 31.0 PG) 27.8 Cancelled MCHC (33.0 - 37.0 G/DL) 32.8 L Cancelled RDW (11.5 - 14.5 %) 17.3 H Cancelled Plt Count (130 - 400 /CUMM) 222 Cancelled MPV (7.4 - 10.4 FL) 7.9 Cancelled Gran % (42.2 - 75.2 %) 84.4 H Lymphocytes % (20.5 - 51.1 %) 9.5 L Monocytes % (1.7 - 9.3 %) 5.8 Eosinophils % (0 - 5 %) 0 Basophils % (0.0 - 2.0 %) 0.3 Absolute Granulocytes (1.4 - 6.5 /CUMM) 8.1 H Segmented Neutrophils (42.2 - 75.2 %) 82 H Absolute Lymphocytes (1.2 - 3.4 /CUMM) 0.9 L Lymphocytes (20.5 - 51.1 %) 9 L Monocytes (1.7 - 9.3 %) 7 Absolute Monocytes (0.10 - 0.60 /CUMM) 0.6 Absolute Eosinophils (0.0 - 0.7 /CUMM) 0 Basophils (0.0 - 2.0 %) 2 Absolute Basophils (0.0 - 0.2 /CUMM) 0 Platelet Estimate (ADEQUATE) ADEQUATE Polychromasia 1+ Hypochromic-Microcytic 1+ Poikilocytosis 1+ Basophilic Stippling 1+ Ovalocytes 1+ Stomatocytes FEW Other Body Source Fld Total RBCs Counted (%) 100 Microbiology Date/Time Procedure - Status Source Growth 04/12 1454 Respiratory Culture - COMP LOWER RESP METH RESIST STAPH AUREUS 04/12 1454 Gram Stain - COMP LOWER RESP Impression/Plan Impression/Plan Impression/Plan: gen - awake and alert head/neck - nasal cannul cvs -s1, s2 lungs - b/l rare rhonchi abd - soft, bs+ ext 1-2+ edema IMPRESSION This is a gentleman with COPD, bedtime BiPAP, previous chf, severe emphysema, significant cardiomyopathy, chronic kidney disease, pafib Has SIg tracheobronchitis with MRSA colonization vs infection with previous pseudomonas infection Severe copd with sig secretions SIg chronic anemia with epistaxis before aswell GI eval ongoing PT was on anticoag now held CHronic resp failure LOw ef with chronic systolic chf on lasix DM, htn and other med issues REC Cont agg pulm toilet REduce steroids to 40 qd IF any signs of sepsis start IV vanco COnt diuresis COnt bp meds KEep hgb more than 8 grams Rpt cxr Will follow
[2018-04-14 15:08] VITALS: BP 120/60
--- NOTE | 2018-04-14 22:28 | Event Note ---
Event Note Event Note: Patient followed up by medical team today. He seems to be doing better, with aggressive pulmonary toileting, steroids reduced poor pulmonary consultation, diuresis continued, Bactrim started for MRSA pneumonia even though patient does not have leukocytosis or fever he is having cough with productive sputum and the respiratory culture has grown positive for MRSA. Since Bactrim can alternate the concentration of digoxin, we will repeat digoxin level tomorrow after a couple of doses of Bactrim.
[2018-04-14 22:35] VITALS: BP 118/78
[2018-04-15 07:25] VITALS: BP 128/64
[2018-04-15 07:45] VITALS: BP 132/70
--- NOTE | 2018-04-15 08:19 | PN- Housestaff ---
See Addendum Subjective Follow-up For: -acute on chronic blood loss anemia -Bronchitis,staph aureus on sputum culture - colonisationversus ? consolidation, no signs of infection. -b/l plueral effusion -copd on 4 litres (chronic respiratory failure) -Sever chest congestion Tele-Events Since Last Visit: Beto with HR 60-72. No overnight events. Subjective: Patient was seen and examined at bedside. He reports doing well. He slept comfortably last night with no difficulty in his breathing. Does not offer any complaints. Review of Systems Constitutional: Reports: no symptoms. Objective Last 24 Hrs of Vital Signs/I&O Vital Signs Date Time Temp Pulse Resp B/P B/P Pulse O2 O2 Flow FiO2 Mean Ox Delivery Rate 04/15 0849 97 Nasal 5.0L Cannula 04/15 0849 98 97 04/15 0745 86 132/70 04/15 0725 98.5 72 22 128/64 97 Nasal Cannula 04/15 0533 75 93 04/15 0311 56 84 04/15 0034 57 92 04/15 0000 BIPAP 04/14 2235 97.7 67 22 118/78 94 04/14 2124 76 118/78 04/14 2123 78 118/78 04/14 1625 94 Nasal 5.0L Cannula 04/14 1508 98.1 72 20 120/60 96 Intake & Output 04/15 1600 04/15 0800 04/15 0000 Intake Total 120 120 Output Total 700 450 Balance -580 -330 Intake, Oral 120 120 Number 1 Bowel Movements Output, Urine 700 450 Patient 183 lb Weight Physical Exam General Appearance: Alert, Oriented X3, Cooperative, Mild Distress Skin: No Rashes, No Breakdown Skin Temp/Moisture Exam: Warm/Dry Sepsis Skin Exam (color): Normal for Ethnicity HEENT: Atraumatic Cardiovascular: Normal S1, Normal S2, irregular Lungs: decreased breath sounds Abdomen: Soft, No Tenderness Neurological: Normal Speech Extremities: No Edema Assessment/Plan Assessment: Mr Vieira a 67-year-old male with past medical history of COPD on 4 L of home oxygen, nocturnal BiPAP, atrial fibrillation on Xarelto, diabetes mellitus, hypertension, hyperlipidemia, abdominal aortic aneurysm repair, CHF with reduced EF of 30-35% on echo done in February 2018 who came in with chief complain of low H &H that was found on routine blood work at the nursing facility. Assessment and Plan: #1 acute on chronic blood loss anemia requiring blood transfusion, suspected GI in origin versus epistaxis. 's baseline hemoglobin is 8.0, had dropped by 1 point ot 7.0 on presentation, he was transfused 1 unit of packed red cells on day one of admission, however on day 2 his hemoglobin again dropped to 6.7, after which he was transfused 2 units of packed red cells. He was also given additional doses of IV Lasix to make sure the blood transfusion does not cause fluid overload. GI was consulted as he was guaiac positive, however he being on Xarelto, the plan for EGD/colonoscopy was to get it done as outpatient. * Today is day 3 discontinuation of Xarelto. * Monitor CBC, target hemoglobin > 8. * Continue PPI * Planned for outpatient EGD/colonoscopy * If severe bleeding noticed will need to notify GI stat #2 chronic respiratory failure- severe congestion with shortness of breath * Continue TRC nebulizations as needed. * Pulmonology was consulted, consult appreciated. * Decrease Solu-Medrol 40 mg IV daily. * We will continue the steroid taper over the weekend to help him with this COPD exacerbation. * He also has very severe clogged mucus, therefore needs aggressive chest therapy with Acapela - along with Mucomyst during nebulization. Discussed with the respiratory therapist. * Continue to supplement oxygen to maintain saturations above 92%. Currently on 5L #3 sputum cultures grew staph aureus. * Off note patient did grew MRSA in the past, * Current sputum cultures are positve for staph aureus - could be simply colonization of MRSA as he does not have a fever or white count or any signs of infection, we will continue to watch him off antibiotics for now and follow the cultures. * If any signs of infection develop or suspicion consider starting antibiotics. #4 Small right-sided pleural effusion. * Continue to monitor respiratory status, if symptoms worsen repeat chest x-ray to see if the pleural effusion is tappable at this point no plan for tapping. #5 Diabetes Mellitus. * Continue 8 units of Levemir at bedtime. * Monitor fingerstick. * NovoLog sliding scale. * Consistent carbohydrate diet. * He has been started on IV Solu-Medrol, he has a tendency for very high sugars while being on steroid therefore will need to adjust the insulin as required for maintaining fingersticks #6 history of HTN * Continue hydralazine 10 mg twice a day. * Continue Lopressor 25 mg twice a day. * Continue Cardizem 240 mg daily. #8 Epistaxis * stable. No further bleeding episodes reported. FC DVT prophylaxis with ALPs, hold xorelto Heart healthy, consistent carbohydrate diet Problem List: 1. Acute respiratory failure with hypoxia Pain Ratin Pain Location: none Pain Goal: Remain pain free Pain Plan: none Tomorrow's Labs & Rationales: CBC, BEP
[2018-04-15 15:04] VITALS: BP 102/60
--- NOTE | 2018-04-15 16:08 | PN- Pulmonary ---
Subjective HPI/Critical Care Issues: Sleeping and now on abx Copious secretions improving Objective Current Medications: Current Medications Sig/Eve Start time Last Medication Dose Route Stop Time Status Admin Acetylcysteine 2 ML BID 04/13 2100 AC 04/15 INH 0758 Albuterol Sulfate 3 ML EVERY 4 HRS/AWAKE 04/11 08 AC 04/15 INH 1152 Budesonide/ 2 PUF BID 04/10 221 AC 04/15 Formoterol Fumarate INH 0936 Cyanocobalamin 1,000 MCG DAILY 04/11 09 AC 04/15 PO 0933 Digoxin 0.125 MG Q48@1700 04/12 1700 AC 04/14 PO 1700 Diltiazem HCl 240 MG DAILY 04/11 09 AC 04/15 PO 0933 Ferrous Sulfate 325 MG TID 04/11 09 AC 04/15 PO 1412 Fluticasone 2 SPRAY DAILY 04/12 1437 AC 04/15 Propionate CESAR 0934 Furosemide 80 MG 7:30 AM, & 4:30 PM 04/11 07 AC 04/15 PO 1543 Guaifenesin 600 MG Q12 04/13 1036 AC 04/15 PO 0933 Guaifenesin/ 10 ML Q6P PRN 04/11 1415 AC 04/15 Dextromethorphan PO 0757 Hydralazine HCl 10 MG BID 04/10 221 AC 04/15 PO 0933 Insulin Aspart 0 AT BEDTIME 04/11 2100 SC Insulin Aspart 0 TIDAC 04/11 08 AC 04/15 SC 1226 Insulin Detemir 8 UNITS AT BEDTIME 04/11 2100 AC 04/14 SC 2125 Insulin Detemir 10 UNITS 04/11 09 AC 04/15 SC 0933 Methylprednisolone 40 MG DAILY 04/15 0900 AC 04/15 IV 0934 Methylprednisolone 40 MG Q12 04/13 1317 DC 04/14 IV 2123 Metoprolol Tartrate 25 MG BID 04/10 221 AC 04/15 PO 0933 Morphine Sulfate 2.5 MG Q2P PRN 04/10 2215 AC 04/15 PO 0755 Omeprazole 40 MG DAILY AC 04/11 07 AC 04/15 PO 0607 Oxycodone/ 2 TAB Q4-6 PRN 04/10 224 AC Acetaminophen PO Oxycodone/ 1 TAB Q4-6 PRN 04/10 2215 AC Acetaminophen PO Sodium Chloride 2 SPRAY Q4P PRN 04/10 2215 AC 04/13 CESAR 0718 Tiotropium [place] 1 PUF DAILY 04/11 0900 AC 04/15 INH 0933 Trimethoprim/ 1 TAB BID 04/14 1145 AC 04/15 Sulfamethoxazole PO 0933 Vital Signs & I&O Last 24 Hrs of Vitals and I&O: Vital Signs Date Time Temp Pulse Resp B/P B/P Pulse O2 O2 Flow FiO2 Mean Ox Delivery Rate 04/15 1504 98.1 67 22 102/60 97 Nasal 5.0L Cannula 04/15 0849 97 Nasal 5.0L Cannula 04/15 0849 98 97 04/15 0745 86 132/70 04/15 0725 98.5 72 22 128/64 97 Nasal Cannula 04/15 0533 75 93 04/15 0311 56 84 04/15 0034 57 92 04/15 0000 BIPAP 04/14 2235 97.7 67 22 118/78 94 04/14 2124 76 118/78 04/14 2123 78 118/78 04/14 1625 94 Nasal 5.0L Cannula Intake & Output 04/15 1600 04/15 0800 04/15 0000 Intake Total 520 120 120 Output Total 300 700 450 Balance 220 -580 -330 Intake, IV 40 Intake, Oral 480 120 120 Number 1 Bowel Movements Output, Urine 300 700 450 Patient 183 lb Weight Laboratory Tests 04/15 04/14 1545 0625 Chemistry Sodium (137 - 145 mmol/L) 144 Potassium (3.5 - 5.1 mmol/L) 4.8 Chloride (98 - 107 mmol/L) 92 L Carbon Dioxide (22 - 30 mmol/L) 40 H Anion Gap (5 - 16) 12 BUN (9 - 20 mg/dL) 52 H Creatinine (0.7 - 1.2 mg/dL) 1.9 H Estimated GFR (>60 ml/min) 35 L BUN/Creatinine Ratio (7 - 25 %) 27.4 H Hematology CBC w Diff NO MAN DIFF REQ WBC (4.8 - 10.8 /CUMM) 7.8 RBC (4.70 - 6.10 /CUMM) 3.17 L Hgb (14.0 - 18.0 G/DL) 8.9 L Hct (42 - 52 %) 27.1 L MCV (80.0 - 94.0 FL) 85.5 MCH (27.0 - 31.0 PG) 28.0 MCHC (33.0 - 37.0 G/DL) 32.8 L RDW (11.5 - 14.5 %) 17.9 H Plt Count (130 - 400 /CUMM) 224 MPV (7.4 - 10.4 FL) 8.5 Gran % (42.2 - 75.2 %) 91.0 H Lymphocytes % (20.5 - 51.1 %) 7.4 L Monocytes % (1.7 - 9.3 %) 1.6 L Eosinophils % (0 - 5 %) 0 Basophils % (0.0 - 2.0 %) 0 Absolute Granulocytes (1.4 - 6.5 /CUMM) 7.1 H Absolute Lymphocytes (1.2 - 3.4 /CUMM) 0.6 L Absolute Monocytes (0.10 - 0.60 /CUMM) 0.1 Absolute Eosinophils (0.0 - 0.7 /CUMM) 0 Absolute Basophils (0.0 - 0.2 /CUMM) 0 Toxicology Digoxin Pending Impression/Plan Impression/Plan Impression/Plan: gen - awake and alert head/neck - nasal cannul cvs -s1, s2 lungs - b/l rare rhonchi abd - soft, bs+ ext 1-2+ edema IMPRESSION This is a gentleman with COPD, bedtime BiPAP, previous chf, severe emphysema, significant cardiomyopathy, chronic kidney disease, pafib Has SIg tracheobronchitis with MRSA colonization vs infection with previous pseudomonas infection Severe copd with sig secretions SIg chronic anemia with epistaxis before aswell GI eval ongoing PT was on anticoag now held CHronic resp failure LOw ef with chronic systolic chf on lasix DM, htn and other med issues REC Cont agg pulm toilet REduce steroids to 40 qd IF any signs of sepsis start IV vanco Dc bactrim and watch off abx and if worse would need vanco Follow wbc COnt diuresis COnt bp meds KEep hgb more than 8 grams Will follow
--- NOTE | 2018-04-15 17:13 | PN- Gastroenterology ---
Assessment/Plan GI Assessment/Recommendations: ASSESSMENT: 1. Tracheobronchitis 2. Severe COPD with Copious Secretions, on 4 liters 3. Chronic Anemia 4. Cardiomyopathy 5. Atrial Fibrillation, anticoagulation, held RECOMMENDATIONS: Per Dr. Ferrer to. Patient is not stable for EGD colonoscopy from respiratory point of view. We will reassess on a day by day basis. Patient is eager to have both EGD and colonoscopy done prior to discharge. I discussed risks and benefits of procedure with patient he is had an opportunity ask questions and have them answered. I've explained to him that having procedure done will depend on being clear for procedure by Juancarlos Echavarria MD. Subjective Subjective: Is much less short of breath. Is feeling much better. He is tolerating diet. Has had no melena nor bright red blood per rectum. Denies nausea vomiting abdominal pain. Objective Vital Signs and I&Os Vital Signs Date Time Temp Pulse Resp B/P B/P Pulse O2 O2 Flow FiO2 Mean Ox Delivery Rate 04/15 1600 94 Nasal 5.0L Cannula 04/15 1504 98.1 67 22 102/60 97 Nasal 5.0L Cannula 04/15 0849 97 Nasal 5.0L Cannula 04/15 0849 98 97 04/15 0745 86 132/70 04/15 0725 98.5 72 22 128/64 97 Nasal Cannula 04/15 0533 75 93 04/15 0311 56 84 04/15 0034 57 92 04/15 0000 BIPAP 04/14 2235 97.7 67 22 118/78 94 04/14 2124 76 118/78 04/143 78 118/78 Intake & Output 04/15 1600 04/15 0400 04/14 1600 04/14 0400 04/13 1600 04/13 0400 Intake Total 640 120 830 200 420 400 Output Total 1000 450 740 677 6578 1550 Balance -360 -330 -70 -500 -1305 -1150 Intake, IV 40 20 20 Intake, Oral 600 120 810 200 400 400 Number 1 Bowel Movements Output, Urine 1000 450 062 624 2820 1550 Patient 183 lb 182 lb 182 lb 178 lb Weight Weight Bed scale Measurement Method Physical Exam General Appearance: no apparent distress, alert, awake Respiratory: decreased breath sounds Cardiovascular: irregularly irregular, Normal S1 and S2 Abdomen: normal bowel sounds, soft, non-tender, no organomegaly Extremities: no edema Neurologic/Psychiatric: awake, alert, oriented x 3 Skin: intact, normal color, warm/dry Current Medications: Current Medications Sig/Eve Start time Last Medication Dose Route Stop Time Status Admin Acetylcysteine 2 ML BID 04/13 2100 AC 04/15 INH 0758 Albuterol Sulfate 3 ML EVERY 4 HRS/AWAKE 04/11 0800 AC 04/15 INH 1659 Budesonide/ 2 PUF BID 04/10 2210 AC 04/15 Formoterol Fumarate INH 0936 Cyanocobalamin 1,000 MCG DAILY 04/11 09 AC 04/15 PO 0933 Digoxin 0.125 MG Q48@1700 04/12 1700 AC 04/14 PO 1700 Diltiazem HCl 240 MG DAILY 04/11 09 AC 04/15 PO 0933 Ferrous Sulfate 325 MG TID 04/11 09 AC 04/15 PO 1412 Fluticasone 2 SPRAY DAILY 04/12 1437 04/15 Propionate CESAR 0934 Furosemide 80 MG 7:30 AM, & 4:30 PM 04/11 0730 04/15 PO 1543 Guaifenesin 600 MG Q12 04/13 1036 AC 04/15 PO 0933 Guaifenesin/ 10 ML Q6P PRN 04/11 1415 AC 04/15 Dextromethorphan PO 0757 Hydralazine HCl 10 MG BID 04/10 221 AC 04/15 PO 0933 Insulin Aspart 0 AT BEDTIME 04/11 2100 SC Insulin Aspart 0 TIDAC 04/11 08 04/15 SC 1226 Insulin Detemir 8 UNITS AT BEDTIME 04/11 2100 04/14 SC 2125 Insulin Detemir 10 UNITS 04/11 0900 04/15 SC 0933 Methylprednisolone 40 MG DAILY 04/15 0900 DC 04/15 IV 0934 Methylprednisolone 40 MG Q12 04/13 1317 DC 04/14 IV 2123 Metoprolol Tartrate 25 MG BID 04/10 2212 04/15 PO 0933 Morphine Sulfate 2.5 MG Q2P PRN 04/10 2215 AC 04/15 PO 0755 Omeprazole 40 MG DAILY AC 04/11 0700 AC 04/15 PO 0607 Oxycodone/ 2 TAB Q4-6 PRN 04/10 2245 AC Acetaminophen PO Oxycodone/ 1 TAB Q4-6 PRN 05/22 2215 AC Acetaminophen PO Prednisone 40 MG DAILY 04/16 900 AC PO Sodium Chloride 2 SPRAY Q4P PRN 04/10 2215 AC 04/13 CESAR 0718 Tiotropium [place] 1 PUF DAILY 04/11 09 AC 04/15 INH 0933 Trimethoprim/ 1 TAB BID 04/14 1145 DC 04/15 Sulfamethoxazole PO 932 Results Pertinent Lab Results: Laboratory Tests 04/15 04/14 1545 0625 Chemistry Sodium (137 - 145 mmol/L) 144 Potassium (3.5 - 5.1 mmol/L) 4.8 Chloride (98 - 107 mmol/L) 92 L Carbon Dioxide (22 - 30 mmol/L) 40 H Anion Gap (5 - 16) 12 BUN (9 - 20 mg/dL) 52 H Creatinine (0.7 - 1.2 mg/dL) 1.9 H Estimated GFR (>60 ml/min) 35 L BUN/Creatinine Ratio (7 - 25 %) 27.4 H Hematology CBC w Diff NO MAN DIFF REQ WBC (4.8 - 10.8 /CUMM) 7.8 RBC (4.70 - 6.10 /CUMM) 3.17 L Hgb (14.0 - 18.0 G/DL) 8.9 L Hct (42 - 52 %) 27.1 L MCV (80.0 - 94.0 FL) 85.5 MCH (27.0 - 31.0 PG) 28.0 MCHC (33.0 - 37.0 G/DL) 32.8 L RDW (11.5 - 14.5 %) 17.9 H Plt Count (130 - 400 /CUMM) 224 MPV (7.4 - 10.4 FL) 8.5 Gran % (42.2 - 75.2 %) 91.0 H Lymphocytes % (20.5 - 51.1 %) 7.4 L Monocytes % (1.7 - 9.3 %) 1.6 L Eosinophils % (0 - 5 %) 0 Basophils % (0.0 - 2.0 %) 0 Absolute Granulocytes (1.4 - 6.5 /CUMM) 7.1 H Absolute Lymphocytes (1.2 - 3.4 /CUMM) 0.6 L Absolute Monocytes (0.10 - 0.60 /CUMM) 0.1 Absolute Eosinophils (0.0 - 0.7 /CUMM) 0 Absolute Basophils (0.0 - 0.2 /CUMM) 0 Toxicology Digoxin Pending 04/13 04/13 0702 0045 Chemistry Sodium (137 - 145 mmol/L) 141 Potassium (3.5 - 5.1 mmol/L) 4.3 Chloride (98 - 107 mmol/L) 90 L Carbon Dioxide (22 - 30 mmol/L) 43 H Anion Gap (5 - 16) 8 BUN (9 - 20 mg/dL) 48 H Creatinine (0.7 - 1.2 mg/dL) 2.2 H Estimated GFR (>60 ml/min) 30 L BUN/Creatinine Ratio (7 - 25 %) 21.8 Hematology CBC w Diff NO MAN DIFF REQ MAN DIFF ORDERED WBC (4.8 - 10.8 /CUMM) 9.4 9.6 RBC (4.70 - 6.10 /CUMM) 3.10 L 3.06 L Hgb (14.0 - 18.0 G/DL) 9.1 L 8.5 L Hct (42 - 52 %) 27.1 L 26.0 L MCV (80.0 - 94.0 FL) 87.3 84.9 MCH (27.0 - 31.0 PG) 29.4 27.8 MCHC (33.0 - 37.0 G/DL) 33.6 32.8 L RDW (11.5 - 14.5 %) 17.8 H 17.3 H Plt Count (130 - 400 /CUMM) 227 222 MPV (7.4 - 10.4 FL) 8.1 7.9 Gran % (42.2 - 75.2 %) 81.4 H 84.4 H Lymphocytes % (20.5 - 51.1 %) 10.9 L 9.5 L Monocytes % (1.7 - 9.3 %) 7.1 5.8 Eosinophils % (0 - 5 %) 0.3 0 Basophils % (0.0 - 2.0 %) 0.3 0.3 Absolute Granulocytes (1.4 - 6.5 /CUMM) 7.6 H 8.1 H Segmented Neutrophils (42.2 - 75.2 %) 82 H Absolute Lymphocytes (1.2 - 3.4 /CUMM) 1.0 L 0.9 L Lymphocytes (20.5 - 51.1 %) 9 L Monocytes (1.7 - 9.3 %) 7 Absolute Monocytes (0.10 - 0.60 /CUMM) 0.7 H 0.6 Absolute Eosinophils (0.0 - 0.7 /CUMM) 0 0 Basophils (0.0 - 2.0 %) 2 Absolute Basophils (0.0 - 0.2 /CUMM) 0 0 Platelet Estimate (ADEQUATE) ADEQUATE Polychromasia 1+ Hypochromic-Microcytic 1+ Poikilocytosis 1+ Basophilic Stippling 1+ Ovalocytes 1+ Stomatocytes FEW Other Body Source Fld Total RBCs Counted (%) 100 04/12 2000 Hematology CBC w Diff Cancelled WBC Cancelled RBC Cancelled Hgb Cancelled Hct Cancelled MCV Cancelled MCH Cancelled MCHC Cancelled RDW Cancelled Plt Count Cancelled MPV Cancelled
[2018-04-15 22:05] VITALS: BP 112/72
[2018-04-16 06:41] VITALS: BP 126/70
--- NOTE | 2018-04-16 08:17 | PN- Housestaff ---
Bay CR,[facility] 04/16/18 0817: Subjective Follow-up For: Symptomatic Anemia Tele-Events Since Last Visit: Misbah with HR 71-86 Subjective: Patient seen and examined. He is upset that every day around 3.30am he wakes up short of breath and feels there is something wrong with the oxygen flow supply in the room. States he desaturated earlier when he got out of bed to urinate. Review of Systems Constitutional: Reports: no symptoms. Objective Last 24 Hrs of Vital Signs/I&O Vital Signs Date Time Temp Pulse Resp B/P B/P Pulse O2 O2 Flow FiO2 Mean Ox Delivery Rate 04/16 0800 91 Nasal 5.0L Cannula 04/16 0641 97.8 130 20 126/70 94 Nasal 5.0L Cannula 04/16 0556 104 90 04/16 0411 84 95 04/16 0312 75 92 04/16 0051 80 95 04/16 0000 92 BIPAP 04/15 2309 88 98 04/15 2205 98.4 85 22 112/72 98 Nasal Cannula 04/15 2056 85 112/72 04/15 2056 85 112/72 04/15 1600 94 Nasal 5.0L Cannula 04/15 1504 98.1 67 22 102/60 97 Nasal 5.0L Cannula Intake & Output 04/16 1600 04/16 0800 04/16 0000 Intake Total 50 200 Output Total 900 550 Balance -850 -350 Intake, Oral 50 200 Output, Urine 900 550 Patient 195 lb Weight Weight Bed scale Measurement Method Physical Exam General Appearance: Alert, Oriented X3, Cooperative, Mild Distress Skin: No Rashes, No Breakdown Skin Temp/Moisture Exam: Warm/Dry Sepsis Skin Exam (color): Normal for Ethnicity HEENT: Atraumatic Cardiovascular: Normal S1, Normal S2, No Murmurs Lungs: Normal Air Movement, decreased air entry mid-lower lobes with rhonchi Abdomen: Soft, No Tenderness Neurological: Normal Speech Extremities: b/l lower extremity 1+ edema Last 24 Hrs of Lab/Sridhar Results Last 24 Hrs of Labs/Mics: Laboratory Tests 04/16/18 0656: Anion Gap 10, Estimated GFR 28 L, BUN/Creatinine Ratio 27.0 H, CBC w Diff MAN DIFF ORDERED, RBC 3.05 L, MCV 87.5, MCH 28.6, MCHC 32.7 L, RDW 17.8 H, MPV 8.4, Gran % 88.8 H, Lymphocytes % 4.5 L, Monocytes % 6.7, Eosinophils % 0, Basophils % 0, Absolute Granulocytes 11.4 H, Absolute Lymphocytes 0.6 L, Absolute Monocytes 0.9 H, Absolute Eosinophils 0, Absolute Basophils 0, Platelet Estimate ADEQUATE, Hypochromic-Microcytic 2+, Poikilocytosis 2+, Basophilic Stippling 1+, Anisocytosis 2+ 04/15/18 1545: Digoxin 1.0 Assessment/Plan Assessment: Mr Vieira a 67-year-old male with past medical history of COPD on 4 L of home oxygen, nocturnal BiPAP, atrial fibrillation on Xarelto, diabetes mellitus, hypertension, hyperlipidemia, abdominal aortic aneurysm repair, CHF with reduced EF of 30-35% on echo done in February 2018 who came in with chief complain of low H &H that was found on routine blood work at the nursing facility. Assessment and Plan: #1 acute on chronic blood loss anemia requiring blood transfusion, suspected GI in origin versus epistaxis. 's baseline hemoglobin is 8.0, had dropped by 1 point ot 7.0 on presentation, he was transfused 1 unit of packed red cells on day one of admission, however on day 2 his hemoglobin again dropped to 6.7, after which he was transfused 2 units of packed red cells. He was also given additional doses of IV Lasix to make sure the blood transfusion does not cause fluid overload. GI was consulted as he was guaiac positive, however he being on Xarelto, the plan for EGD/colonoscopy was to get it done as outpatient. * Today is day 4 discontinuation of Xarelto. * Monitor CBC, target hemoglobin > 8. * Continue PPI * Planned for eventual EGD/colonoscopy * He was scheduled for the procedures as inpatient but his pulmonary status will not allow him to tolerate general anesthesia. * If severe bleeding noticed will need to notify GI stat #2 chronic respiratory failure- severe congestion with shortness of breath * Continue TRC nebulizations as needed. * Start Prednisone 60mg daily. * Will taper as tolerated. * Continue aggressive chest PT with mucormist. * Supplement oxygen to maintain saturations above 92%. Currently on 5L #3 sputum cultures grew staph aureus. * Off note patient did grew MRSA in the past, * Current sputum cultures are positve for staph aureus * Will start him on IV Vancomycin 1g daily as his condition is worsening. #4 Small right-sided pleural effusion. * Continue to monitor respiratory status, if symptoms worsen will consider repeat chest x-ray. #5 Diabetes Mellitus. * Continue 8 units of Levemir at bedtime. * Monitor fingerstick. * NovoLog sliding scale. * Consistent carbohydrate diet. * He is on Prednisone so his SS may need to be adjusted. #6 history of HTN * Continue hydralazine 10 mg twice a day. * Continue Lopressor 25 mg twice a day. * Continue Cardizem 240 mg daily. #8 Epistaxis * stable. No further bleeding episodes reported. FC DVT prophylaxis with ALPs, hold xorelto Heart healthy, consistent carbohydrate diet Problem List: 1. Symptomatic anemia Pain Ratin Pain Location: none Pain Goal: Remain pain free Pain Plan: none Tomorrow's Labs & Rationales: CBC, BEP Eusebio CR,[facility] 04/16/18 1213: Attending MD Review Statement Attending Statement Attending MD Statement: examined this patient, discuss w/resident/PA/DENTAL SERVICES DIRECTOR, agreed w/resident/PA/DENTAL SERVICES DIRECTOR, reviewed EMR data (avail), discussed with nursing, discussed with case mgmt, reviewed images, amended to note Attending Assessment/Plan: 67-year-old male with PMH significant for COPD on 4 L of home oxygen, nocturnal BiPAP, atrial fibrillation on Xarelto, diabetes mellitus, hypertension, hyperlipidemia, abdominal aortic aneurysm repair, CHF with reduced EF of 30-35% was initially admitted for low H&H from the [place]. during hospital stay he has so far received three units of PRBC, antcoagulants on hold for possible GIB, GI on board and further plan on doing an outpatinet endoscopy after discharge. cont on PPI, keep Hb above > 8. Pt also has baseline CRF for which he is currently on IV steroids, pulmonology on board, chest Pt, TRC nebs, CPAP and cont with supplemental oxygen Pt was seen and examined on the bed side, denies any active issues, feeling better. will cont with his current management, remains stable with steroid taper. GI consult appreciated, recommended both upper and lower endoscopy provided patient is being cleared as per respiratory status point a few. Follow further recommendations from the opto mechanical technician and keep the patient nothing by mouth from midnight if cleared for endoscopy. Pt also has baseline CRF for which he is currently on IV steroids, pulmonology on board, chest Pt, TRC nebs, CPAP and cont with supplemental oxygen Pt was seen and examined on the bed side, denies any active issues, feeling better. will cont with his current management, remains stable with steroid taper. GI consult appreciated, recommended both upper and lower endoscopy provided patient is being cleared as per respiratory status point a few. Follow further recommendations from the opto mechanical technician and keep the patient nothing by mouth from midnight if cleared for endoscopy.
[2018-04-16 08:39] LABS: ABSOLUTE BASOPHIL COUNT 0 /CUMM (0.0-0.2); ABSOLUTE EOSINOPHIL COUNT 0 /CUMM (0.0-0.7); ABSOLUTE LYMPH COUNT 0.6 /CUMM (1.2-3.4); ABSOLUTE MONOCYTE COUNT 0.9 /CUMM (0.10-0.60); BASOPHIL % 0 % (0.0-2.0); MEAN CORPUSCULAR HGB 28.6 PG (27.0-31.0)
[2018-04-16 08:55] LABS: ABSOLUTE GRANULOCYTE CT 11.4 /CUMM (1.4-6.5); EOSINOPHIL % 0 % (0-5); GRANULOCYTE % 88.8 % (42.2-75.2); HEMATOCRIT 26.7 % (42-52); MEAN CORPUSCULAR HGB CONC 32.7 G/DL (33.0-37.0); MEAN CORPUSCULAR VOLUME 87.5 FL (80.0-94.0); MEAN PLATELET VOLUME 8.4 FL (7.4-10.4); PLATELET COUNT 238 /CUMM (130-400); RBC DISTRIBUTION WIDTH 17.8 % (11.5-14.5); RED BLOOD CELL CT 3.05 /CUMM (4.70-6.10)
[2018-04-16 08:57] LABS: WHITE BLOOD CELL COUNT 12.8 /CUMM (4.8-10.8)
--- NOTE | 2018-04-16 12:21 | PN- Pulmonary ---
Subjective HPI/Critical Care Issues: Much more hypoxic with out sig wheezig this am Has signs and symptoms sugg of PND at 3 am two days in a row Objective Current Medications: Current Medications Sig/Eve Start time Last Medication Dose Route Stop Time Status Admin Acetylcysteine 2 ML BID 04/13 2100 AC 04/16 INH 0748 Albuterol Sulfate 3 ML EVERY 4 HRS/AWAKE 04/11 08 AC 04/16 INH 1152 Budesonide/ 2 PUF BID 04/10 221 AC 04/16 Formoterol Fumarate INH 0835 Cyanocobalamin 1,000 MCG DAILY 04/11 09 AC 04/16 PO 0829 Digoxin 0.125 MG Q48@1700 04/12 1700 AC 04/14 PO 1700 Diltiazem HCl 240 MG DAILY 04/11 09 AC 04/16 PO 0829 Ferrous Sulfate 325 MG TID 04/11 09 AC 04/16 PO 0829 Fluticasone 2 SPRAY DAILY 04/12 1437 AC 04/16 Propionate CESAR 0840 Furosemide 80 MG 7:30 AM, & 4:30 PM 04/11 07 04/16 PO 0828 Guaifenesin 600 MG Q12 04/13 1036 AC 04/16 PO 0829 Guaifenesin/ 10 ML Q6P PRN 04/11 1415 AC 04/15 Dextromethorphan PO 205 Hydralazine HCl 10 MG BID 04/10 2211 AC 04/16 PO 0829 Insulin Aspart 0 AT BEDTIME 04/11 2100 SC Insulin Aspart 0 TIDAC 04/11 08 AC 04/16 SC 1157 Insulin Detemir 8 UNITS AT BEDTIME 04/11 2100 AC 04/15 SC 220 Insulin Detemir 10 UNITS 04/11 09 04/16 SC 0828 Methylprednisolone 40 MG DAILY 04/15 0900 DC 04/15 IV 0934 Metoprolol Tartrate 25 MG BID 04/10 2212 AC 04/16 PO 0829 Morphine Sulfate 2.5 MG Q2P PRN 04/10 2215 AC 04/15 PO 0755 Omeprazole 40 MG DAILY AC 04/11 07 AC 04/16 PO 0522 Oxycodone/ 2 TAB Q4-6 PRN 04/10 224 AC Acetaminophen PO Oxycodone/ 1 TAB Q4-6 PRN 04/10 2215 AC Acetaminophen PO Prednisone 40 MG DAILY 04/16 0900 AC 04/16 PO 0829 Sodium Chloride 2 SPRAY Q4P PRN 04/10 2215 AC 04/13 CESAR 0718 Tiotropium [place] 1 PUF DAILY 04/11 0900 AC 04/16 INH 0829 Trimethoprim/ 1 TAB BID 04/14 1145 DC 04/15 Sulfamethoxazole PO 0933 Vancomycin HCl 1,000 MG Q24H 04/16 1300 AC Sodium Chloride 250 ML IV Vital Signs & I&O Last 24 Hrs of Vitals and I&O: Vital Signs Date Time Temp Pulse Resp B/P B/P Pulse O2 O2 Flow FiO2 Mean Ox Delivery Rate 04/16 0800 91 Nasal 5.0L Cannula 04/16 0641 97.8 130 20 126/70 94 Nasal 5.0L Cannula 04/16 0556 104 90 04/16 0411 84 95 04/16 0312 75 92 04/16 0051 80 95 04/16 0000 92 BIPAP 04/15 2309 88 98 04/15 2205 98.4 85 22 112/72 98 Nasal Cannula 04/15 2056 85 112/72 04/15 2056 85 112/72 04/15 1600 94 Nasal 5.0L Cannula 04/15 1504 98.1 67 22 102/60 97 Nasal 5.0L Cannula Intake & Output 04/16 1600 04/16 0800 04/16 0000 Intake Total 50 200 Output Total 900 550 Balance -850 -350 Intake, Oral 50 200 Output, Urine 900 550 Patient 195 lb Weight Weight Bed scale Measurement Method gen - awake and alert head/neck - nasal cannul cvs -s1, s2 lungs - b/l rare rhonchi abd - soft, bs+ ext 1-2+ edema IMPRESSION This is a gentleman with COPD, bedtime BiPAP, previous chf, severe emphysema, significant cardiomyopathy, chronic kidney disease, pafib Has SIg tracheobronchitis with MRSA colonization vs infection with previous pseudomonas infection Severe copd with sig secretions SIg chronic anemia with epistaxis before aswell GI eval ongoing PT was on anticoag now held CHronic resp failure LOw ef with chronic systolic chf on lasix DM, htn and other med issues REC Cont agg pulm toilet REduce steroids to 40 qd IF any signs of sepsis start IV vanco Dc bactrim and watch off abx and if worse would need vanco Follow wbc COnt diuresis COnt bp meds KEep hgb more than 8 grams Will follow Impression/Plan Impression/Plan Impression/Plan: gen - awake and alert head/neck - nasal cannul cvs -s1, s2 lungs - b/l rare rhonchi abd - soft, bs+ ext 1-2+ edema IMPRESSION This is a gentleman with COPD, bedtime BiPAP, previous chf, severe emphysema, significant cardiomyopathy, chronic kidney disease, pafib Has Now hypoxic and hypercarbic resp failure with / SIg tracheobronchitis with MRSA colonization vs infection with previous pseudomonas infection Severe copd with sig secretions, on steroids CKD Systolic heart disease with CHF acute on chronic on lasix SIg chronic anemia with epistaxis before solange GI eval ongoing PT was on anticoag now held CHronic resp failure DM, htn and other med issues REC Cont agg pulm toilet Start iv vanco as he is much worse than yesterday Increase steroids to 6o mg daily Follow wbc COnt diuresis COnt bp meds KEep hgb more than 8 grams Change to high flow for now and use BIPAP at hs Will follow Kathe mas
[2018-04-16 14:35] VITALS: BP 110/62
[2018-04-16 22:08] VITALS: BP 110/78
--- NOTE | 2018-04-16 22:17 | RADIOLOGY REPORT ---
EXAMINATION: XR PORTABLE CHEST CLINICAL INFORMATION: Shortness of breath, hypoxemia COMPARISON: Prior chest x-rays, the most recent on 04/14/2018 TECHNIQUE: Portable AP view of the chest was obtained. FINDINGS: The x-ray is taken with rotation toward the left side. Stable mild enlargement of the cardiac silhouette. Opacity at the right lung base is fairly similar to 04/14/2018 chest x-ray. A small right-sided pleural effusion noted. Retrocardiac opacity again noted, consistent with the left lower lobe atelectasis and/or pneumonia. Increased pulmonary interstitial markings again noted, a chronic finding. No pneumothorax. IMPRESSION: No significant interval change as compared to 04/14/2018 chest x-ray with bilateral lower lobe opacities and right-sided pleural effusion.
--- NOTE | 2018-04-17 07:37 | PN- Housestaff ---
Patsy Leonard 04/17/18 0736: Subjective Follow-up For: -acute on chronic blood loss anemia -Bronchitis,staph aureus on sputum culture - colonisation versus ? consolidation , no signs of infection. -b/l plueral effusion -copd on 4 litres (chronic respiratory failure) -Severe chest congestion Complaints: PATIENT COMPLAINTS OF WORSENING SHORTNESS OF BREATH AND EPISDOES OF GASPING FOR AIR I NTHE MIDDLE OF THE NIGHT Subjective: I have seen and examined the patient today morning. He is sitting on the chair, lying comfortably, still on 6 L of oxygen by nasal cannula. He describes these episodes of shortness of breath and gasping in the middle of the night around 2 AM and 3 amwhich woke him up from sleep, for last 2-3 days. He does feel that his congestion is better, and that he is being able to bring up more sputum than before, however he continues to feel short of breath especially in the middle of the night. He has had his breakfast fine, he continues to be off anticoagulation and continues to be on the steroid taper. Review of Systems Constitutional: Reports: see HPI. Objective Last 24 Hrs of Vital Signs/I&O Vital Signs Date Time Temp Pulse Resp B/P B/P Pulse O2 O2 Flow FiO2 Mean Ox Delivery Rate 04/17 0946 86 11004/17 0946 86 11078 04/17 0821 93 Nasal 6.0L Cannula 04/17 0750 80 97 04/17 0551 63 96 04/17 0253 63 91 04/17 0015 82 96 04/16 2326 99 BIPAP 8L 04/16 2208 98.7 85 18 110/78 90 04/16 2015 94 Nasal 60% Cannula 04/16 1730 76 110/62 04/16 1600 98 Nasal 65% Cannula 04/16 1435 98.3 76 22 110 98 Nasal Cannula Intake & Output 04/17 1600 04/17 0800 04/17 0000 Intake Total 50 64 Output Total 1450 Balance -1400 64 Intake, IV 14 Intake, Oral 50 50 Output, Urine 1450 Patient 86.636 kg Weight Physical Exam General Appearance: Alert, Oriented X3, Cooperative, Mild Distress Skin: No Rashes Skin Temp/Moisture Exam: Warm/Dry HEENT: Atraumatic, PERRLA, EOMI Neck: Supple, No JVD Cardiovascular: Normal S1, Normal S2, irregularly irregular Lungs: Normal Air Movement, decreased air entry Abdomen: Normal Bowel Sounds, Soft, No Tenderness Extremities: No Clubbing, No Cyanosis Vascular: Normal Pulses Current Medications: Current Medications Sig/Eve Start time Last Medication Dose Route Stop Time Status Admin Acetylcysteine 2 ML BID 04/13 2100 AC 04/17 INH 0838 Albuterol Sulfate 3 ML EVERY 4 HRS/AWAKE 04/11 08 04/17 INH 0838 Budesonide/ 2 PUF BID 04/10 2210 04/17 Formoterol Fumarate INH 0947 Cyanocobalamin 1,000 MCG DAILY 04/11 09 04/17 PO 0946 Digoxin 0.125 MG Q48@1700 04/12 1700 04/16 PO 1730 Diltiazem HCl 240 MG DAILY 04/11 09 04/17 PO 0946 Ferrous Sulfate 325 MG TID 04/11 900 04/17 PO 0946 Fluticasone 2 SPRAY DAILY 04/12 1437 04/17 Propionate CESAR 0948 Furosemide 40 MG ONCE ONE 04/16 2015 DC 04/16 IV 04/16 Furosemide 80 MG 7:30 AM, & 4:30 PM 04/11 0730 04/17 PO 0834 Guaifenesin 600 MG Q12 04/13 1036 04/17 PO 0946 Guaifenesin/ 10 ML Q6P PRN 04/11 141 04/15 Dextromethorphan PO 2058 Hydralazine HCl 10 MG BID 04/10 2211 04/17 PO 0946 Insulin Aspart 0 AT BEDTIME 04/11 2100 04/16 PA 2137 Insulin Aspart 0 TIDAC 04/11 08 04/17 PA 0835 Insulin Detemir 8 UNITS AT BEDTIME 04/11 2100 04/16 PA 213 Insulin Detemir 10 UNITS 0900 04/11 09 04/17 PA 0945 Metoprolol Tartrate 25 MG BID 04/10 2212 04/17 PO 0946 Morphine Sulfate 2.5 MG Q2P PRN 04/10 2215 04/15 PO 0755 Omeprazole 40 MG DAILY AC 04/11 07 AC 04/17 PO 0627 Oxycodone/ 2 TAB Q4-6 PRN 04/10 2245 AC Acetaminophen PO Oxycodone/ 1 TAB Q4-6 PRN 04/10 2215 AC Acetaminophen PO Prednisone 40 MG DAILY 04/18 0900 UNVr PO Prednisone 60 MG DAILY 04/17 0900 DC 04/17 PO 0945 Prednisone 20 MG ONCE ONE 04/16 1345 DC 04/16 PO 04/16 1346 1533 Prednisone 40 MG DAILY 04/16 0900 DC 04/16 PO 0829 Sodium Chloride 2 SPRAY Q4P PRN 04/10 2215 AC 04/13 CESAR 0718 Tiotropium [place] 1 PUF DAILY 04/11 0900 AC 04/17 INH 0945 Vancomycin HCl 1,000 MG Q24H 04/16 1300 AC 04/16 Sodium Chloride 250 ML IV 1347 Last 24 Hrs of Lab/Sridhar Results Last 24 Hrs of Labs/Mics: Laboratory Tests 04/17/18 0619: Anion Gap 12, Estimated GFR 28 L, BUN/Creatinine Ratio 32.2 H, CBC w Diff MAN DIFF ORDERED, RBC 3.07 L, MCV 87.3, MCH 28.3, MCHC 32.4 L, RDW 18.6 H, MPV 8.7, Gran % 94.0 H, Lymphocytes % 3.2 L, Monocytes % 2.8, Eosinophils % 0, Basophils % 0, Absolute Granulocytes 14.6 H, Absolute Lymphocytes 0.5 L, Absolute Monocytes 0.4, Absolute Eosinophils 0, Absolute Basophils 0, Platelet Estimate VERIFIED BY SMEAR, Poikilocytosis 1+, Basophilic Stippling 1+, Anisocytosis 1+, Ovalocytes 1+ Microbiology 04/17 533 NASOPHARYN: Influenza Virus A & B Rapid Smear - ORD 04/16 2334 NASOPHARYN: Influenza Virus A & B Rapid Smear - COLB Lines/Diet/Fluids Restraints: none Assessment/Plan Assessment: is a 67-year-old male with past medical history of COPD on 4 L of oxygen and nocturnal BiPAP (followed by Dr. So), atrial fibrillation on the rivoraxaban (followed by Dr. Walton), diabetes mellitus, hypertension, hyperlipidemia, abdominal aortic aneurysm status post repair, heart failure with reduced EF (EF of 30-35%), GERD, prostate cancer and chronic kidney disease was brought in on the 10 april from [facility] after blood work showing anemia. Today is his day 8 of admission. On presentation he was afebrile, vitals were stable and he was saturating 91% on 4 L, labs were significant for H/H of 7/21.8, MCV 83.4. ProBNP 14,000, calcium of 8.3, BUN/creatinine 60 mL/2.0 (baseline creatinine 2.0) Chest x-ray on 10 April showed small right pleural effusion, cardiomegaly and mild interstitial pulmonary edema without any overt consolidation. He was initially admitted to telemetry floor for treatment of symptomatic anemia along with chronic respiratory failure. His stool guaiac were found to be positive, therefore GI was consulted, however as he was on blood thinner which need to be discontinued prior to EGD/colonoscopy, endoscopy/colonoscopy was postponed. His anticoagulation was held on 04/12/2018, today is day 4 of holding the blood thinners. He also continued to have some epistaxis which improved after holding the anticoagulation. Ferrous sulfate was continued. Cardiology was also consulted for holding AC and and it was deemed that as benefit outweighs risks, holding the anticoagulation untill GI procedure was decided.For his HFrEF In he was continued on 80 mg twice a day of oral Lasix which is also his home dose. Pulmonology Dr. So was also consulted as the patient continued to have worsening shortness of breath and severe chest congestion, aggressive chest PT along with mucolytics, starting IV steroids was recommended. Mr garcia and [place] used to be on a steroid taper now transitioned to by mouth. Patient has been having episodes of paroxysmal nocturnal dyspnea in the middle of the night for the last 2-3 days, we will touch base with cardiology again as the symptoms seem to be consistent with heart failure and Mr. Wolfe might need adjustment of his Lasix dosage. Problem list along with assessment and plan #1 acute on chronic blood loss anemia requiring blood transfusion, suspected GI in origin versus epistaxis. 's baseline hemoglobin is 8.0, had dropped by 1 point ot 7.0 on presentation, he was transfused 1 unit of packed red cells on day one of admission, however on day 2 his hemoglobin again dropped to 6.7, after which he was transfused 2 units of packed red cells. He was also given additional doses of IV Lasix to make sure the blood transfusion does not cause fluid overload. GI was consulted as he was guaiac positive, however he being on Xarelto, the plan for EGD/colonoscopy was to get it done as outpatient. * Today is day 4 discontinuation of Xarelto. * Monitor CBC, target hemoglobin > 8. * Continue PPI * Planned for eventual EGD/colonoscopy * He was scheduled for the procedures as inpatient but his pulmonary/cardiac status will not allow him to tolerate general anesthesia, therefore needs to be optimised before doign any procedure. * If severe bleeding noticed please notify GI stat #2 chronic respiratory failure- severe congestion with shortness of breath * Continue TRC nebulizations as needed. * Prednisone has been tapered to 40 mg daily * Continue to taper. * Continue aggressive chest PT with mucormist. * Supplement oxygen to maintain saturations above 92%. Currently on 6L * pulm consult appreciated. #3 MRSA bronchitis with Sputum culture positive for MRSA * Off note patient did grew MRSA in the past, * Current sputum cultures are positve for staph aureus * sputum culture and sensitivities : * 1. METH RESIST STAPH AUREUS RX AB ------ -- CEFAZOLIN R AMOXICILLIN/CLAVULINIC ACID R AMPICILLIN/SULBACTAM R TETRACYCLINE S TRIMETHOPRIM/SULFAMETHOXAZOLE S AZITHROMYCIN R CLINDAMYCIN S ERYTHROMYCIN R OXACILLIN R VANCOMYCIN S * He was started on IV vancomycin as his condition was worsening, today is day 2 of IV vancomycin. #4 Small right-sided pleural effusion, episodes of PND * He has been feeling PND for last 3 days. * In the setting of LVEF of 30 to 35% with reduced global left ventricular systolic function on last echo done on 02/28/2018, this could represent worsening cardiac function ,therefore will touch with cardiology again. * Continue to monitor respiratory status, if symptoms worsen consider repeating chest x-ray. * Ct Digoxin 125mcg BID. #5 Diabetes Mellitus. * Continue 8 units of Levemir at bedtime. * NovoLog sliding scale, last fingersticks have been 323, 168,255, * Mr moulton glucose levels are running high, which could be a side effect of recent steroids, consdier increasing the Novolog sliding scale while on steroids. * Consistent carbohydrate diet. #6 history of HTN * Continue hydralazine 10 mg twice a day. * Continue Lopressor 25 mg twice a day. * Continue Cardizem 240 mg daily. #8 Epistaxis * stable. No further bleeding episodes reported. * Holding AC seems to have helped. #9 Luecocytosis * no other signs of infection/sepsis * possibly 2/2 to steroid administration. * ct to follow. FC DVT prophylaxis with ALPs, hold xorelto regular diet ( per pt request) Problem List: 1. Symptomatic anemia 2. Chronic renal failure 3. Fecal occult blood test positive 4. Chronic anemia Pain Ratin Pain Location: none Pain Goal: Remain pain free Pain Plan: current plan Tomorrow's Labs & Rationales: cbc. bep while on diuretics and ABLA DVT/Prophylaxis: mechanical Discharge Plan Discharge Disposition: home Stable for Discharge? No Anticipated Discharge (Day): tomorrow If Discharged Today/In 24 Hrs: CMR done Anushka Bustos MD 04/17/18 1217: Attending MD Review Statement Attending Statement Attending MD Statement: examined this patient, discuss w/resident/PA/IMMIGRATION SERVICES OFFICER, agreed w/resident/PA/IMMIGRATION SERVICES OFFICER, reviewed EMR data (avail), discussed with nursing, discussed with case mgmt, reviewed images Attending Assessment/Plan: Overall patient feels better today than a few days ago. He continues to be on 6 L of oxygen. He has severe COPD, atrial fibrillation, CKD and chronic systolic heart failure. We are treating him for acute hypoxemic respiratory failure both secondary to COPD and secondary to heart failure. He remains on Lasix 80 by mouth twice a day and on a steroid taper. GI has seen him and when his respiratory status stabilizes then the plan will be an endoscopy and/or colonoscopy given his profound anemia. His anticoagulation remains on hold. Because of the persistent high O2 requirement and copious amounts of secretions with MRSA in the sputum he's being treated with IV Vanco for an MRSA tracheobronchitis.
[2018-04-17 07:45] LABS: ABSOLUTE BASOPHIL COUNT 0 /CUMM (0.0-0.2); ABSOLUTE EOSINOPHIL COUNT 0 /CUMM (0.0-0.7); ABSOLUTE GRANULOCYTE CT 14.6 /CUMM (1.4-6.5); ABSOLUTE LYMPH COUNT 0.5 /CUMM (1.2-3.4); ABSOLUTE MONOCYTE COUNT 0.4 /CUMM (0.10-0.60); BASOPHIL % 0 % (0.0-2.0); EOSINOPHIL % 0 % (0-5); HEMATOCRIT 26.8 % (42-52); MEAN CORPUSCULAR HGB 28.3 PG (27.0-31.0); MEAN CORPUSCULAR HGB CONC 32.4 G/DL (33.0-37.0); MEAN CORPUSCULAR VOLUME 87.3 FL (80.0-94.0); MEAN PLATELET VOLUME 8.7 FL (7.4-10.4); PLATELET COUNT 218 /CUMM (130-400); RBC DISTRIBUTION WIDTH 18.6 % (11.5-14.5); RED BLOOD CELL CT 3.07 /CUMM (4.70-6.10); WHITE BLOOD CELL COUNT 15.5 /CUMM (4.8-10.8)
--- NOTE | 2018-04-17 10:36 | PN- Pulmonary ---
Subjective HPI/Critical Care Issues: Patient feels somewhat improved but still has a productive cough. He continues to require high flow nasal oxygen for acute hypoxic respiratory failure Objective Current Medications: Current Medications Sig/Eve Start time Last Medication Dose Route Stop Time Status Admin Acetylcysteine 2 ML BID 04/13 2100 AC 04/17 INH 0838 Albuterol Sulfate 3 ML EVERY 4 HRS/AWAKE 04/11 08 04/17 INH 0838 Budesonide/ 2 PUF BID 04/10 2210 04/17 Formoterol Fumarate INH 0947 Cyanocobalamin 1,000 MCG DAILY 04/11 09 04/17 PO 0946 Digoxin 0.125 MG Q48@1700 04/12 1700 04/16 PO 1730 Diltiazem HCl 240 MG DAILY 04/11 900 04/17 PO 0946 Ferrous Sulfate 325 MG TID 04/11 900 04/17 PO 0946 Fluticasone 2 SPRAY DAILY 04/12 1437 04/17 Propionate CESAR 0948 Furosemide 40 MG ONCE ONE 04/16 2015 DC 04/16 IV 04/16 Furosemide 80 MG 7:30 AM, & 4:30 PM 04/11 730 04/17 PO 0834 Guaifenesin 600 MG Q12 04/13 1036 04/17 PO 0946 Guaifenesin/ 10 ML Q6P PRN 04/11 141 04/15 Dextromethorphan PO 2058 Hydralazine HCl 10 MG BID 04/10 2211 04/17 PO 0946 Insulin Aspart 0 AT BEDTIME 04/11 2100 04/16 NM 2137 Insulin Aspart 0 TIDAC 04/11 08 04/17 NM 0835 Insulin Detemir 8 UNITS AT BEDTIME 04/11 2100 04/16 NM 213 Insulin Detemir 10 UNITS 0900 04/11 09 04/17 NM 0945 Metoprolol Tartrate 25 MG BID 04/10 2212 04/17 PO 0946 Morphine Sulfate 2.5 MG Q2P PRN 04/10 2215 04/15 PO 0755 Omeprazole 40 MG DAILY AC 04/11 07 04/17 PO 0627 Oxycodone/ 2 TAB Q4-6 PRN 04/10 2245 Acetaminophen PO Oxycodone/ 1 TAB Q4-6 PRN 05/22 2215 AC Acetaminophen PO Prednisone 40 MG DAILY 04/18 09 AC PO Prednisone 60 MG DAILY 04/17 0900 DC 04/17 PO 0945 Prednisone 20 MG ONCE ONE 04/16 1345 DC 04/16 PO 04/16 1346 1533 Prednisone 40 MG DAILY 04/16 0900 DC 04/16 PO 0829 Sodium Chloride 2 SPRAY Q4P PRN 04/10 2215 AC 04/13 CESAR 0718 Tiotropium [place] 1 PUF DAILY 04/11 0900 AC 04/17 INH 0945 Vancomycin HCl 1,000 MG Q24H 04/16 1300 AC 04/16 Sodium Chloride 250 ML IV 1347 Vital Signs & I&O Last 24 Hrs of Vitals and I&O: Vital Signs Date Time Temp Pulse Resp B/P B/P Pulse O2 O2 Flow FiO2 Mean Ox Delivery Rate 04/17 0946 86 110/78 04/17 0946 86 11078 04/17 0821 93 Nasal 6.0L Cannula 04/17 0750 80 97 04/17 0551 63 96 04/17 0253 63 91 04/17 0015 82 96 04/16 2326 99 BIPAP 8L 04/16 2208 98.7 85 18 110/78 90 04/16 2015 94 Nasal 60% Cannula 04/16 1730 76 110/62 04/16 1600 98 Nasal 65% Cannula 04/16 1435 98.3 76 22 110/62 98 Nasal Cannula Intake & Output 04/17 1600 04/17 0800 04/17 0000 Intake Total 50 64 Output Total 1450 Balance -1400 64 Intake, IV 14 Intake, Oral 50 50 Output, Urine 1450 Patient 191 lb Weight Since saturation 6 L 93% exam of his chest shows occasional rhonchi cardiac exam shows regular S1 and S2 without murmurs there is bilateral lower extremity edema Impression/Plan Impression/Plan Impression/Plan: 67-year-old gentleman who appears to have MRSA bronchitis now on vancomycin. This is, complicated by acute hypoxic respiratory failure. Recommendations: Complete course of antibiotics Taper FiO2 his saturations improved continue aggressive pulmonary toilet Mucomyst flutter valve and postural drainage. Continue prednisone
--- NOTE | 2018-04-17 12:28 | PN- Cardiology ---
Subjective Subjective: I was asked reevaluate Mr. Vieira at this time because of shortness of breath which has been recurring at night. Mr. Vieira states he thought it was a problem with the machine delivering oxygen to him. He seems perfectly comfortable at rest on oxygen with O2 saturation in the low to mid 90s. He has no complaints of chest pain. He thinks his edema is stable. He remains in atrial fibrillation with controlled rate. I believe he is still on telemetry just for oxygen saturation monitoring. His chest x-ray yesterday did not show any significant changes. Specifically there was no evidence of increased pulmonary vascular congestion. He has a persistent right pleural effusion. His GI evaluation is on hold pending clearance for the procedures from pulmonary. There is no evidence of further GI bleeding and his hemoglobin and hematocrit have been stable. Objective Vital Signs and I&Os Vital Signs Date Time Temp Pulse Resp B/P B/P Pulse O2 O2 Flow FiO2 Mean Ox Delivery Rate 04/17 0946 86 110/78 04/17 0946 86 110/78 04/17 0821 93 Nasal 6.0L Cannula 04/17 0750 80 97 04/17 0551 63 96 04/17 0253 63 91 04/17 0015 82 96 04/16 2326 99 BIPAP 8L 04/16 2208 98.7 85 18 110/78 90 04/16 2015 94 Nasal 60% Cannula 04/16 1730 76 110/62 04/16 1600 98 Nasal 65% Cannula 04/16 1435 98.3 76 22 110/62 98 Nasal Cannula Intake & Output 04/17 1600 04/17 0800 04/17 0000 04/16 1600 04/16 0800 04/16 0000 Intake Total 50 64 1100 50 200 Output Total 1450 900 900 550 Balance -1400 64 200 -850 -350 Intake, IV 14 250 Intake, Oral 50 50 850 50 200 Number 0 Bowel Movements Output, Urine 1450 900 900 550 Patient 191 lb 195 lb Weight Weight Bed scale Measurement Method Physical Exam: He is in no distress sitting in a chair HEENT exam normal Chest markedly decreased breath sounds with diffuse rhonchi Heart irregular rhythm, no murmurs Extremities 1+ edema of the ankles only Current Medications: Current Medications Sig/Eve Start time Last Medication Dose Route Stop Time Status Admin Acetylcysteine 2 ML BID 04/13 2100 AC 04/17 INH 0838 Albuterol Sulfate 3 ML EVERY 4 HRS/AWAKE 04/11 0800 AC 04/17 INH 0838 Budesonide/ 2 PUF BID 04/10 221 04/17 Formoterol Fumarate INH 0947 Cyanocobalamin 1,000 MCG DAILY 04/11 09 04/17 PO 0946 Digoxin 0.125 MG Q48@1700 04/12 1700 04/16 PO 1730 Diltiazem HCl 240 MG DAILY 04/11 09 04/17 PO 0946 Ferrous Sulfate 325 MG TID 04/11 09 04/17 PO 0946 Fluticasone 2 SPRAY DAILY 04/12 1437 04/17 Propionate CESAR 0948 Furosemide 40 MG ONCE ONE 04/16 2015 DC 04/16 IV 04/16 Furosemide 80 MG 7:30 AM, & 4:30 PM 04/11 07 04/17 PO 0834 Guaifenesin 600 MG Q12 04/13 1036 04/17 PO 0946 Guaifenesin/ 10 ML Q6P PRN 04/11 141 04/15 Dextromethorphan PO 2058 Hydralazine HCl 10 MG BID 04/10 221 04/17 PO 0946 Insulin Aspart 0 AT BEDTIME 04/11 2100 04/16 DE 213 Insulin Aspart 0 TIDAC 04/11 08 04/17 DE 1215 Insulin Detemir 8 UNITS AT BEDTIME 04/11 2100 04/16 DE 213 Insulin Detemir 10 UNITS 0900 04/11 09 04/17 SC 0945 Metoprolol Tartrate 25 MG BID 04/10 2212 04/17 PO 0946 Morphine Sulfate 2.5 MG Q2P PRN 04/10 2215 04/15 PO 0755 Omeprazole 40 MG DAILY AC 04/11 07 04/17 PO 0627 Oxycodone/ 2 TAB Q4-6 PRN 04/10 2245 Acetaminophen PO Oxycodone/ 1 TAB Q4-6 PRN 04/10 2215 Acetaminophen PO Prednisone 40 MG DAILY 04/18 09 PO Prednisone 60 MG DAILY 04/17 09 OH 04/17 PO 0945 Prednisone 20 MG ONCE ONE 04/16 1345 DC 04/16 PO 04/16 1346 1533 Prednisone 40 MG DAILY 04/16 09 OH 04/16 PO 0829 Sodium Chloride 2 SPRAY Q4P PRN 04/10 2215 04/13 CESAR 0718 Tiotropium [place] 1 PUF DAILY 04/11 0900 AC 04/17 INH 0945 Vancomycin HCl 1,000 MG Q24H 04/16 1300 AC 04/16 Sodium Chloride 250 ML IV 1347 Results Last 48 Hrs of Labs/Mics: Laboratory Tests 04/17/18 0619: Anion Gap 12, Estimated GFR 28 L, BUN/Creatinine Ratio 32.2 H, CBC w Diff MAN DIFF ORDERED, RBC 3.07 L, MCV 87.3, MCH 28.3, MCHC 32.4 L, RDW 18.6 H, MPV 8.7, Gran % 94.0 H, Lymphocytes % 3.2 L, Monocytes % 2.8, Eosinophils % 0, Basophils % 0, Absolute Granulocytes 14.6 H, Absolute Lymphocytes 0.5 L, Absolute Monocytes 0.4, Absolute Eosinophils 0, Absolute Basophils 0, Platelet Estimate VERIFIED BY SMEAR, Poikilocytosis 1+, Basophilic Stippling 1+, Anisocytosis 1+, Ovalocytes 1+ 04/16/18 0656: Anion Gap 10, Estimated GFR 28 L, BUN/Creatinine Ratio 27.0 H, CBC w Diff MAN DIFF ORDERED, RBC 3.05 L, MCV 87.5, MCH 28.6, MCHC 32.7 L, RDW 17.8 H, MPV 8.4, Gran % 88.8 H, Lymphocytes % 4.5 L, Monocytes % 6.7, Eosinophils % 0, Basophils % 0, Absolute Granulocytes 11.4 H, Absolute Lymphocytes 0.6 L, Absolute Monocytes 0.9 H, Absolute Eosinophils 0, Absolute Basophils 0, Platelet Estimate ADEQUATE, Hypochromic-Microcytic 2+, Poikilocytosis 2+, Basophilic Stippling 1+, Anisocytosis 2+ 04/15/18 1545: Digoxin 1.0 Recent Imaging Studies: PATIENT: COURTNEY VIEIRA PRESENT AGE: 67 PATIENT ACCOUNT NO: [id number] : 49 LOCATION: 1N ORDERING PHYSICIAN: Saul Toure MD SERVICE DATE: 04/16/18 EXAM TYPE: RAD - XRY-PORTABLE CHEST XRAY EXAMINATION: XR PORTABLE CHEST CLINICAL INFORMATION: Shortness of breath, hypoxemia COMPARISON: Prior chest x-rays, the most recent on 04/14/2018 TECHNIQUE: Portable AP view of the chest was obtained. FINDINGS: The x-ray is taken with rotation toward the left side. Stable mild enlargement of the cardiac silhouette. Opacity at the right lung base is fairly similar to 04/14/2018 chest x-ray. A small right-sided pleural effusion noted. Retrocardiac opacity again noted, consistent with the left lower lobe atelectasis and/or pneumonia. Increased pulmonary interstitial markings again noted, a chronic finding. No pneumothorax. IMPRESSION: No significant interval change as compared to 04/14/2018 chest x-ray with bilateral lower lobe opacities and right-sided pleural effusion. DICTATED BY: River Olvera MD DATE/TIME DICTATED:04/16/182210 SALES ADMINISTRATION SPECIALIST:LINDY DATE/TIME TRANSCRIBED:04/16/182210 CONFIDENTIAL, DO NOT COPY WITHOUT APPROPRIATE AUTHORIZATION. <Electronically signed in Other Vendor System> SIGNED BY: River Olvera MD 04/16/182216 Assessment/Plan Assessment/Plan Mr. Vieira seems stable from a cardiac standpoint. I do not think he is fluid overloaded. He has a little peripheral edema but this is not excessive and is actually improved from his baseline. He has a persistent right pleural effusion. I would ask pulmonary if it is feasible to do a thoracentesis on him or if this is too risky a procedure considering his minimal pulmonary reserve. I note he did receive a little bit extra Lasix. I would watch his BUN and creatinine carefully. We may need to back off Lasix if it continues to deteriorate. I do not think his episodes of shortness of breath at night are cardiac in nature. Continue telemetry? Not applicable (ON tele for O2 sat monitoring)
--- NOTE | 2018-04-17 14:17 | Patient Discharge Instructions ---
Discharge Instructions General Discharge Information You were seen/treated for: Acute blood loss anemia, bronchitis, CHF exacerbation Special Instructions: please follow up with your PCP and program and research coordinator within one week of discharge. please ct to take your medications as prescribed. Please continue to follow up with your GI doctor after discharge. you had endoscopy and colonoscopy and will need to follow up with the histopathological report of biopsies after discharge Diet Continue normal diet: No Recommended Diet: Heart Healthy Acute Coronary Syndrome Inclusion Criteria At DC or during hospital stay patient has or had the following: ACS DIAGNOSIS No Discharge Core Measures Meds if any: Prescribed or Continued at Discharge Meds if any: NOT Prescribed or Continued at Discharge Congestive Heart Failure Inclusion Criteria At DC or during hospital stay patient has or had the following: CHF DIAGNOSIS Yes Discharge Core Measures Meds if any: Prescribed or Continued at Discharge AP/ARB for EF <40% Yes Meds if any: NOT Prescribed or Continued at Discharge Cerebrovascular accident Inclusion Criteria At DC or during hospital stay patient has or had the following: CVA/TIA Diagnosis No Discharge Core Measures Meds if any: Prescribed or Continued at Discharge Meds if any: NOT Prescribed or Continued at Discharge Venous thromboembolism Inclusion Criteria VTE Diagnosis No VTE Type NONE VTE Confirmed by (Test) NONE Discharge Core Measures - Per Current guidelines, there needs to be overlap - treatment for the first 5 days of Warfarin therapy. - If discharged on Warfarin prior to 5 days of - overlap therapy, the patient will need to be - assessed for post discharge needs including - *Post discharge parental anticoagulation - *Warfarin and/or parental anticoagulation education - *Follow up date to check INR post discharge At least 5 days overlap therapy as Inpatient No Meds if any: Prescribed or Continued at Discharge Note: Overlap Therapy is Warfarin and Anticoagulant Meds if any: NOT Prescribed or Continued at Discharge
[2018-04-17 15:05] VITALS: BP 124/50
--- NOTE | 2018-04-18 07:37 | PN- Housestaff ---
Patsy Leonard 04/18/18 0733: Subjective Follow-up For: -acute on chronic blood loss anemia -MRSA bronchitis -b/l plueral effusion -copd on 6 litres (chronic respiratory failure) -Epistaxis -HFrEF Subjective: i have seen the patient today morning. He was on his BIPAP Review of Systems Constitutional: Reports: see HPI. Objective Last 24 Hrs of Vital Signs/I&O Vital Signs Date Time Temp Pulse Resp B/P B/P Pulse O2 O2 Flow FiO2 Mean Ox Delivery Rate 04/18 0723 110 20 92 CPAP 04/18 0554 73 94 04/18 0254 89 91 04/18 0000 94 BIPAP 04/17 2355 75 95 04/17 2228 98.3 85 18 95 Nasal Cannula 04/17 2018 11068 04/17 2018 11068 04/17 1641 95 Nasal 6.0L Cannula 04/17 1600 97 Nasal 6.0L Cannula 04/17 1505 98.0 56 18 124/50 97 Nasal Cannula 04/17 1327 Nasal 5.0L Cannula 04/17 1309 93 Nasal 6.0L Cannula 04/17 0946 86 110/78 04/17 0946 86 110/78 04/17 0821 93 Nasal 6.0L Cannula 04/17 0800 93 BIPAP 8L 04/17 0750 80 97 Intake & Output 04/18 0800 04/18 0000 04/17 1600 Intake Total 50 50 980 Output Total 550 250 800 Balance -500 -200 180 Intake, IV 260 Intake, Oral 50 50 720 Number 1 Bowel Movements Output, Urine 550 250 800 Patient 79.605 kg Weight Weight Bed scale Measurement Method Physical Exam General Appearance: Alert, Oriented X3, Cooperative Current Medications: Current Medications Sig/Eve Start time Last Medication Dose Route Stop Time Status Admin Acetylcysteine 2 ML BID 04/13 2100 DC 04/17 INH 0838 Albuterol Sulfate 3 ML EVERY 4 HRS/AWAKE 04/11 08 AC 04/17 INH 2047 Budesonide/ 2 PUF BID 04/10 2210 AC 04/17 Formoterol Fumarate INH 2016 Cyanocobalamin 1,000 MCG DAILY 04/11 900 AC 04/17 PO 0946 Digoxin 0.125 MG Q48@1700 04/12 1700 AC 04/16 PO 1730 Diltiazem HCl 240 MG DAILY 04/11 0900 AC 04/17 PO 0946 Ferrous Sulfate 325 MG TID 04/11 0900 AC 04/17 PO 2018 Fluticasone 2 SPRAY DAILY 04/12 1437 AC 04/17 Propionate CESAR 0948 Furosemide 80 MG 7:30 AM, & 4:30 PM 04/11 0730 04/17 PO 1653 Guaifenesin 600 MG Q12 04/13 1036 AC 04/17 PO 2018 Guaifenesin/ 10 ML Q6P PRN 04/11 1415 AC 04/17 Dextromethorphan PO 1255 Hydralazine HCl 10 MG BID 04/10 221 AC 04/17 PO 2018 Insulin Aspart 0 TIDAC 04/17 1700 AC 04/17 SC 1653 Insulin Aspart 0 AT BEDTIME 04/11 2100 04/17 SC 214 Insulin Aspart 0 TIDAC 04/11 0800 KS 04/17 SC 1215 Insulin Detemir 8 UNITS AT BEDTIME 04/11 2100 04/17 SC 214 Insulin Detemir 10 UNITS 0900 04/11 0900 04/17 SC 0945 Metoprolol Tartrate 25 MG BID 04/10 221 04/17 PO 2018 Morphine Sulfate 2.5 MG Q2P PRN 04/10 221 AC 04/15 PO 0755 Omeprazole 40 MG DAILY AC 04/11 0700 AC 04/18 PO 0619 Oxycodone/ 2 TAB Q4-6 PRN 04/10 224 AC Acetaminophen PO Oxycodone/ 1 TAB Q4-6 PRN 04/10 2215 AC Acetaminophen PO Prednisone 40 MG DAILY 04/18 09 AC PO Prednisone 60 MG DAILY 04/17 0900 DC 04/17 PO 0945 Sodium Chloride 2 SPRAY Q4P PRN 04/10 221 04/13 CESAR 0718 Tiotropium [place] 1 PUF DAILY 04/11 0900 AC 04/17 INH 0945 Vancomycin HCl 1,000 MG Q24H 04/16 1300 AC 04/17 Sodium Chloride 250 ML IV 1313 Last 24 Hrs of Lab/Sridhar Results Last 24 Hrs of Labs/Mics: Laboratory Tests 04/18/18 0615: Sodium Pending, Potassium Pending, Chloride Pending, Carbon Dioxide Pending, Anion Gap Pending, BUN Pending, Creatinine Pending, BUN/Creatinine Ratio Pending , Magnesium Pending, CBC w Diff Pending, WBC Pending, RBC Pending, Hgb Pending, Hct Pending, MCV Pending, MCH Pending, MCHC Pending, RDW Pending, Plt Count Pending, MPV Pending Microbiology 04/17 1800 NASOPHARYN: Influenza Virus A & B Rapid Smear - COMP Lines/Diet/Fluids Restraints: none Assessment/Plan Assessment: is a 67-year-old male with past medical history of COPD on 4 L of oxygen and nocturnal BiPAP (followed by Dr. So), atrial fibrillation on the rivoraxaban (followed by Dr. Walton), diabetes mellitus, hypertension, hyperlipidemia, abdominal aortic aneurysm status post repair, heart failure with reduced EF (EF of 30-35%), GERD, prostate cancer and chronic kidney disease was brought in on the 10 april from [facility] after blood work showing anemia. Today is his day 9 of admission. Problem list along with assessment and plan #1 acute on chronic blood loss anemia requiring blood transfusion, guaiac positive stools. Mr. Vieira's baseline hemoglobin is 8.0, status post 3 units of packed cell transfusion, H/H stable at 8.4/25.9, low serum iron and with normal ferritin levels but reduced TIBC. Most likely GI source with guaiac-positive stools. Need optimizing patient on respiratory status prior to planning endoscopy/ colonoscopy, as per pulmonology Dr. So, he is close to his baseline respiratory status, currently saturating 92% on 5 L, we will reduce oxygen to 4 L which is also his home oxygen. As per discussion with Dr. Cabrera, GI, if his current status remains, we will plan for endoscopy/colonoscopy on 02/2018. He continues to be off anticoagulation for more than 4 days now we will continue to hold it. Continue to monitor CBC, target hemoglobin about 8, if severe bleeding noticed please notify GI stat. #2 chronic respiratory failure : Continue TRC nebulizations, continue steroid taper, aggressive chest physical therapy with Mucomyst, continue oxygenation to maintain saturations above 92%. #3 MRSA tracheobronchitis: Sensitivity back, continue IV vancomycin, will readjust the vancomycin dosage depending on the random Vanco levels, today is day 3 of antibiotics, will need 2 more days of IV antibiotic. #4 diabetes mellitus :ct 8 units at bedtime, NovoLog sliding scale, consistent carbohydrate diet, last 3 fingersticks noted to be 306, 155, 283, hyperglycemia secondary to steroid intake, consider adjustment of insulin while on steroids. #5 history of hypertension : ct hydralazine 10 mg twice a day, Lopressor 25 mg twice a day, Cardizem 40 mg daily. #6 epistaxis : Resolved, continue to hold anticoagulation, humidify oxygen. #7 leukocytosis : No evidence of infection, secondary to steroid administration, continue to follow. Full code DVT prophylaxis with Alps. Regular diet per patient request. Pain management with Tylenol. Problem List: 1. Symptomatic anemia 2. Chronic renal failure 3. Fecal occult blood test positive 4. Acute respiratory failure with hypoxia 5. MADISON (acute kidney injury) 6. Bronchitis Pain Ratin Pain Location: none Pain Goal: Remain pain free Pain Plan: continue curren plan Tomorrow's Labs & Rationales: CBc. Chavo Bustos MD,Anushka 04/18/18 0956: Attending MD Review Statement Attending Statement Attending MD Statement: examined this patient, discuss w/resident/PA/ONION FARMER, agreed w/resident/PA/ONION FARMER, reviewed EMR data (avail), discussed with nursing, discussed with case mgmt Attending Assessment/Plan: Patient remains on 6 L of O2. Appreciate cardiology and pulmonary evaluations. Dr. Walton strongly feels that this is not CHF and his oxygen requirements and nocturnal shortness of breath has to do with his pulmonary status. He is on vancomycin for copious amounts of secretions with an MRSA tracheobronchitis. He is also on chronic prednisone. Will repeat the chest x-ray in a.m. as per Dr. So. He remains on telemetry for continuous pulse ox monitoring.
--- NOTE | 2018-04-18 07:41 | PN- Pulmonary ---
Subjective HPI/Critical Care Issues: pt seen and examined afebrile Objective Current Medications: Current Medications Sig/Eve Start time Last Medication Dose Route Stop Time Status Admin Acetylcysteine 2 ML BID 04/13 2100 DC 04/17 INH 0838 Albuterol Sulfate 3 ML EVERY 4 HRS/AWAKE 04/11 0800 AC 04/17 INH 2048 Budesonide/ 2 PUF BID 04/10 221 04/17 Formoterol Fumarate INH 2017 Cyanocobalamin 1,000 MCG DAILY 04/11 09 AC 04/17 PO 0946 Digoxin 0.125 MG Q48@1700 04/12 1700 AC 04/16 PO 1730 Diltiazem HCl 240 MG DAILY 04/11 09 AC 04/17 PO 0946 Ferrous Sulfate 325 MG TID 04/11 09 04/17 PO 2018 Fluticasone 2 SPRAY DAILY 04/12 1437 AC 04/17 Propionate CESAR 0948 Furosemide 80 MG 7:30 AM, & 4:30 PM 04/11 07 04/18 PO 0736 Guaifenesin 600 MG Q12 04/13 1036 04/17 PO 2018 Guaifenesin/ 10 ML Q6P PRN 04/11 1415 04/17 Dextromethorphan PO 1255 Hydralazine HCl 10 MG BID 04/10 2211 04/17 PO 2018 Insulin Aspart 0 TIDAC 04/17 1700 04/18 MN 0738 Insulin Aspart 0 AT BEDTIME 04/11 2100 04/17 MN 214 Insulin Aspart 0 TIDAC 04/11 08 OH 04/17 MN 1215 Insulin Detemir 8 UNITS AT BEDTIME 04/11 2100 04/17 MN 214 Insulin Detemir 10 UNITS 0900 04/11 09 04/17 MN 0945 Metoprolol Tartrate 25 MG BID 04/10 221 AC 04/17 PO 2018 Morphine Sulfate 2.5 MG Q2P PRN 04/10 221 AC 04/15 PO 0755 Omeprazole 40 MG DAILY AC 04/11 07 04/18 PO 0619 Oxycodone/ 2 TAB Q4-6 PRN 04/10 224 AC Acetaminophen PO Oxycodone/ 1 TAB Q4-6 PRN 04/10 221 AC Acetaminophen PO Prednisone 40 MG DAILY 04/18 09 AC PO Prednisone 60 MG DAILY 04/17 0900 DC 04/17 PO 0945 Sodium Chloride 2 SPRAY Q4P PRN 04/10 2215 AC 04/13 CESAR 0718 Tiotropium [place] 1 PUF DAILY 04/11 0900 AC 04/17 INH 0945 Vancomycin HCl 1,000 MG Q24H 04/16 1300 AC 04/17 Sodium Chloride 250 ML IV 1313 Vital Signs & I&O Last 24 Hrs of Vitals and I&O: Vital Signs Date Time Temp Pulse Resp B/P B/P Pulse O2 O2 Flow FiO2 Mean Ox Delivery Rate 04/18 0723 110 20 92 CPAP 04/18 0554 73 94 04/18 0254 89 91 04/18 0000 94 BIPAP 04/17 2355 75 95 04/17 2228 98.3 85 18 95 Nasal Cannula 04/17 2018 11068 04/17 2018 11068 04/17 1641 95 Nasal 6.0L Cannula 04/17 1600 97 Nasal 6.0L Cannula 04/17 1505 98.0 56 18 124/50 97 Nasal Cannula 04/17 1327 Nasal 5.0L Cannula 04/17 1309 93 Nasal 6.0L Cannula 04/17 0946 86 110/78 04/17 0946 86 110/78 04/17 0821 93 Nasal 6.0L Cannula 04/17 0800 93 BIPAP 8L 04/17 0750 80 97 Intake & Output 04/18 0800 04/18 0000 04/17 1600 Intake Total 50 50 980 Output Total 550 250 800 Balance -500 -200 180 Intake, IV 260 Intake, Oral 50 50 720 Number 1 Bowel Movements Output, Urine 550 250 800 Patient 176 lb Weight Weight Bed scale Measurement Method Exam Other Physical Findings: gen - awake and alert head/neck - high flow nasal cannul cvs -s1, s2 lungs - b/l rare rhonchi abd - soft, bs+ ext 1-2+ edema Results Last 24 Hrs of Lab Results: Laboratory Tests 04/18/18 0615: Sodium Pending, Potassium Pending, Chloride Pending, Carbon Dioxide Pending, Anion Gap Pending, BUN Pending, Creatinine Pending, BUN/Creatinine Ratio Pending , Magnesium Pending, CBC w Diff Pending, WBC Pending, RBC Pending, Hgb Pending, Hct Pending, MCV Pending, MCH Pending, MCHC Pending, RDW Pending, Plt Count Pending, MPV Pending Impression/Plan Impression/Plan Impression/Plan: Impression 67 year old man * MRSA tracheobronchitis * right blunting of costophrenic angle - minimal pleural effusion vs atelectasis , not present on CT 03/07 * desaturation maybe secondary to anemia and perhaps mucus plugging * Plan -continue steroids with taper -s/p mucomyst -chest PT, flutter device and incentive spirometry aggressively -cardiology evaluation noted -diuresis -TRC/Nebs -right blunting of costophrenic angle - minimal pleural effusion vs atelectasis, not present on CT 03/07, check CXR 04/19 DVT prophylaxis at all times
[2018-04-18 07:53] VITALS: BP 130/70
[2018-04-18 07:56] LABS: ABSOLUTE BASOPHIL COUNT 0 /CUMM (0.0-0.2); ABSOLUTE EOSINOPHIL COUNT 0 /CUMM (0.0-0.7); ABSOLUTE GRANULOCYTE CT 8.9 /CUMM (1.4-6.5); ABSOLUTE LYMPH COUNT 0.6 /CUMM (1.2-3.4); ABSOLUTE MONOCYTE COUNT 0.5 /CUMM (0.10-0.60); BASOPHIL % 0 % (0.0-2.0); EOSINOPHIL % 0 % (0-5); HEMATOCRIT 25.9 % (42-52); MEAN CORPUSCULAR HGB 27.9 PG (27.0-31.0); MEAN CORPUSCULAR HGB CONC 32.3 G/DL (33.0-37.0); MEAN CORPUSCULAR VOLUME 86.6 FL (80.0-94.0); MEAN PLATELET VOLUME 8.9 FL (7.4-10.4); RBC DISTRIBUTION WIDTH 18.4 % (11.5-14.5); RED BLOOD CELL CT 2.99 /CUMM (4.70-6.10)
[2018-04-18 08:45] LABS: PLATELET COUNT 220 /CUMM (130-400)
[2018-04-18 15:15] VITALS: BP 124/70
[2018-04-18 23:21] VITALS: BP 110/62
[2018-04-19 06:24] VITALS: BP 136/80
--- NOTE | 2018-04-19 07:46 | PN- Housestaff ---
Patsy Leonard 04/19/18 0744: Subjective Follow-up For: -acute on chronic blood loss anemia -MRSA bronchitis -b/l plueral effusion -copd on 6 litres (chronic respiratory failure) -Epistaxis -HFrEF Complaints: no complaints Subjective: I have seen and examined the patient today morning, he was sitting comfortably on the chair, he continues to be on 5 L of nasal oxygen, planned for EGD on Monday, we'll touch base with GI to plan the procedure on Monday and prep on Monday, no new complaints. Review of Systems Constitutional: Reports: see HPI. Objective Last 24 Hrs of Vital Signs/I&O Vital Signs Date Time Temp Pulse Resp B/P B/P Pulse O2 O2 Flow FiO2 Mean Ox Delivery Rate 04/19 0624 98.4 85 20 136/80 98 CPAP 04/19 0059 91 Nasal 5.0L Cannula 04/18 2321 97.8 93 16 110/62 94 Room Air 04/18 2206 83 124/70 04/18 2205 83 124/70 04/18 1700 83 124/70 04/18 1625 92 Nasal 4.0L Cannula 04/18 1515 98.9 83 18 124/70 95 04/18 1142 97 Nasal 4.0L Cannula 04/18 0839 95 Nasal 6.0L Cannula 04/18 0753 130/70 Intake & Output 04/19 0800 04/19 0000 04/18 1600 Intake Total 580 Output Total 750 600 680 Balance -750 -600 -100 Intake, IV 20 Intake, Oral 560 Number 2 Bowel Movements Output, Urine 750 600 680 Physical Exam General Appearance: Alert, Oriented X3, Cooperative HEENT: Atraumatic, PERRLA, EOMI Cardiovascular: Normal S1, Normal S2, No Murmurs Lungs: reduced congestion from before, less tight, mild rhonchi present Abdomen: Normal Bowel Sounds, Soft, No Tenderness Neurological: Normal Gait, Normal Speech, Strength at 5/5 X4 Ext, Normal Tone Extremities: No Clubbing, No Cyanosis, edema + Vascular: Normal Pulses Current Medications: Current Medications Sig/Eve Start time Last Medication Dose Route Stop Time Status Admin Albuterol Sulfate 3 ML EVERY 4 HRS/AWAKE 04/11 08 AC 04/18 INH 2019 Budesonide/ 2 PUF BID 04/10 2210 AC 04/18 Formoterol Fumarate INH 2237 Cyanocobalamin 1,000 MCG DAILY 04/11 0900 AC 04/18 PO 0835 Digoxin 0.125 MG Q48@1700 04/12 1700 AC 04/18 PO 1700 Diltiazem HCl 240 MG DAILY 04/11 09 AC 04/18 PO 0835 Ferrous Sulfate 325 MG TID 04/11 09 AC 04/18 PO 2205 Fluticasone 2 SPRAY DAILY 04/12 1437 AC 04/18 Propionate CESAR 0834 Furosemide 80 MG 7:30 AM, & 4:30 PM 04/11 07 AC 04/19 PO 0639 Guaifenesin 600 MG Q12 04/13 1036 AC 04/18 PO 2206 Guaifenesin/ 10 ML Q6P PRN 04/11 1415 AC 04/18 Dextromethorphan PO 0932 Hydralazine HCl 10 MG BID 04/10 221 AC 04/18 PO 2206 Insulin Aspart 0 TIDAC 04/17 1700 AC 04/18 SC 1706 Insulin Aspart 0 AT BEDTIME 04/11 2100 AC 04/18 SC 223 Insulin Detemir 8 UNITS AT BEDTIME 04/11 2100 AC 04/18 SC 223 Insulin Detemir 10 UNITS 0904/11 0900 AC 04/18 SC 0834 Metoprolol Tartrate 25 MG BID 04/10 221 AC 04/18 PO 2205 Morphine Sulfate 2.5 MG Q2P PRN 04/10 221 AC 04/15 PO 0755 Omeprazole 40 MG DAILY AC 04/11 07 AC 04/19 PO 0639 Oxycodone/ 2 TAB Q4-6 PRN 04/10 224 AC Acetaminophen PO Oxycodone/ 1 TAB Q4-6 PRN 04/10 221 AC Acetaminophen PO Prednisone 40 MG DAILY 04/18 09 AC 04/18 PO 0835 Sodium Chloride 2 SPRAY Q4P PRN 04/10 2215 AC 04/13 CESAR 0718 Tiotropium [place] 1 PUF DAILY 04/11 09 AC 04/18 INH 0835 Vancomycin HCl 1,000 MG 1700 04/18 1700 AC 04/18 Sodium Chloride 250 ML IV 2236 Vancomycin HCl 1,000 MG Q24H 04/16 1300 DC 04/17 Sodium Chloride 250 ML IV 1313 Last 24 Hrs of Lab/Sridhar Results Last 24 Hrs of Labs/Mics: Laboratory Tests 04/18/18 1510: Random Vancomycin 11.2 Lines/Diet/Fluids Restraints: none Assessment/Plan Assessment: is a 67-year-old male with past medical history of COPD on 4 L of oxygen and nocturnal BiPAP (followed by Dr. So), atrial fibrillation on the rivoraxaban (followed by Dr. Walton), diabetes mellitus, hypertension, hyperlipidemia, abdominal aortic aneurysm status post repair, heart failure with reduced EF (EF of 30-35%), GERD, prostate cancer and chronic kidney disease was brought in on the 10 april from [facility] after blood work showing anemia. Today is his day 10 of admission. Problem list along with assessment and plan #1 Acute on chronic blood loss anemia requiring blood transfusion, guaiac positive stools. Mr. Vieira's baseline hemoglobin is 8.0, status post 3 units of packed cell transfusion, H/H stable at 8.4/25.9, low serum iron and with normal ferritin levels but reduced TIBC. Most likely GI source with guaiac-positive stools. Need optimizing patient on respiratory status prior to planning endoscopy/ colonoscopy, as per pulmonology Dr. So, he is close to his baseline respiratory status, currently saturating 92% on 5 L, we will reduce oxygen to 4 L which is also his home oxygen. As per discussion with Dr. Cabrera, GI, if his current status remains, we will plan for endoscopy/colonoscopy on 02/2018. He continues to be off anticoagulation for more than 4 days now we will continue to hold it. Continue to monitor CBC, target hemoglobin about 8, if severe bleeding noticed please notify GI stat. #2 chronic respiratory failure : Continue TRC nebulizations, continue steroid taper, aggressive chest physical therapy with Mucomyst, continue oxygenation to maintain saturations above 92%. #3 MRSA tracheobronchitis: Sensitivity back, continue IV vancomycin, today is day 4 of antibiotics, will need 1 more day of IV antibiotic. #4 diabetes mellitus :ct 8 units at bedtime, NovoLog sliding scale, consistent carbohydrate diet, last 3 fingersticks noted to be 136,194,254, hyperglycemia secondary to steroid intake, consider adjustment of insulin while on steroids. #5 history of hypertension : ct hydralazine 10 mg twice a day, Lopressor 25 mg twice a day, Cardizem 40 mg daily. #6 epistaxis : Resolved, continue to hold anticoagulation, humidify oxygen. #7 leukocytosis : No evidence of infection, secondary to steroid administration, continue to follow. Full code DVT prophylaxis with Alps. Regular diet per patient request. Pain management with Tylenol. Problem List: 1. Bronchitis 2. Symptomatic anemia 3. Chronic renal failure 4. Fecal occult blood test positive 5. Chronic anemia 6. Acute respiratory failure with hypoxia Pain Ratin Pain Location: .. Pain Goal: Remain pain free Pain Plan: tylenol Tomorrow's Labs & Rationales: not needed Anushka Bustos MD 04/19/18 1124: Attending MD Review Statement Attending Statement Attending MD Statement: examined this patient, discuss w/resident/PA/PALEOLOGY TEACHER, agreed w/resident/PA/PALEOLOGY TEACHER, reviewed EMR data (avail), discussed with nursing, discussed with case mgmt Attending Assessment/Plan: Patient overall is feeling better. Remains on 5 L of oxygen. Will talk to Dr. So with a prednisone taper. He'll complete his course of vancomycin tomorrow that is a 5 day course for MRSA tracheobronchitis given the severe copious secretions. We have spoken to GI and the plan will be for endoscopy and colonoscopy on Monday. Patient has atrial fibrillation and is anticoagulation remains on hold for very severe anemia. Given his very tenuous respiratory status pulmonary and GI and cardiology feels that he is best off having this procedure done as an inpatient.
--- NOTE | 2018-04-19 09:19 | PN- Pulmonary ---
Subjective HPI/Critical Care Issues: pt seen and examined 95% on 4LNC returning to respiratory baseline still with phlegm/cough but subsiding Objective Current Medications: Current Medications Sig/Eve Start time Last Medication Dose Route Stop Time Status Admin Albuterol Sulfate 3 ML EVERY 4 HRS/AWAKE 04/11 08 AC 04/19 INH 0832 Budesonide/ 2 PUF BID 04/10 2210 AC 04/19 Formoterol Fumarate INH 0849 Cyanocobalamin 1,000 MCG DAILY 04/11 09 AC 04/19 PO 0848 Digoxin 0.125 MG Q48@1700 04/12 1700 AC 04/18 PO 1700 Diltiazem HCl 240 MG DAILY 04/11 09 AC 04/19 PO 0848 Ferrous Sulfate 325 MG TID 04/11 09 AC 04/19 PO 0848 Fluticasone 2 SPRAY DAILY 04/12 1437 AC 04/19 Propionate CESAR 0849 Furosemide 80 MG 7:30 AM, & 4:30 PM 04/11 730 04/19 PO 0639 Guaifenesin 600 MG Q12 04/13 1036 AC 04/19 PO 0848 Guaifenesin/ 10 ML Q6P PRN 04/11 1415 AC 04/18 Dextromethorphan PO 0932 Hydralazine HCl 10 MG BID 04/10 2211 AC 04/19 PO 0848 Insulin Aspart 0 TIDAC 04/17 1700 AC 04/18 NM 1706 Insulin Aspart 0 AT BEDTIME 04/11 2100 AC 04/18 NM 2234 Insulin Detemir 8 UNITS AT BEDTIME 04/11 2100 AC 04/18 NM 223 Insulin Detemir 10 UNITS 04/11 09 AC 04/19 SC 0848 Metoprolol Tartrate 25 MG BID 04/10 221 AC 04/19 PO 0848 Morphine Sulfate 2.5 MG Q2P PRN 04/10 221 AC 04/15 PO 0755 Omeprazole 40 MG DAILY AC 04/11 07 AC 04/19 PO 0639 Oxycodone/ 2 TAB Q4-6 PRN 04/10 2245 AC Acetaminophen PO Oxycodone/ 1 TAB Q4-6 PRN 04/10 2215 AC Acetaminophen PO Prednisone 40 MG DAILY 04/18 09 AC 04/19 PO 0848 Sodium Chloride 2 SPRAY Q4P PRN 04/10 2215 AC 05/25 CESAR 0718 Tiotropium [place] 1 PUF DAILY 04/11 0900 AC 04/19 INH 0857 Vancomycin HCl 1,000 MG 1700 04/18 1700 AC 04/18 Sodium Chloride 250 ML IV 2236 Vancomycin HCl 1,000 MG Q24H 04/16 1300 DC 04/17 Sodium Chloride 250 ML IV 1313 Vital Signs & I&O Last 24 Hrs of Vitals and I&O: Vital Signs Date Time Temp Pulse Resp B/P B/P Pulse O2 O2 Flow FiO2 Mean Ox Delivery Rate 04/19 0848 85 136/80 04/19 0848 85 136/80 04/19 0830 95 Nasal 4.0L Cannula 04/19 0800 Nasal 4.0L Cannula 04/19 0624 98.4 85 20 136/80 98 CPAP 04/19 0059 91 Nasal 5.0L Cannula 04/18 2321 97.8 93 16 110/62 94 Room Air 04/18 2206 83 124/70 04/18 2205 83 124/70 04/18 1700 83 124/70 04/18 1625 92 Nasal 4.0L Cannula 04/18 1515 98.9 83 18 124/70 95 04/18 1142 97 Nasal 4.0L Cannula Intake & Output 04/19 1600 04/19 0800 04/19 0000 Intake Total Output Total 750 600 Balance -750 -600 Number 2 Bowel Movements Output, Urine 750 600 Exam Other Physical Findings: gen - awake and alert head/neck - high flow nasal cannul cvs -s1, s2 lungs - b/l rare rhonchi abd - soft, bs+ ext 2+ edema Results Last 24 Hrs of Lab Results: Laboratory Tests 04/18/18 1510: Random Vancomycin 11.2 Impression/Plan Impression/Plan Impression/Plan: Impression 67 year old man * MRSA tracheobronchitis * right blunting of costophrenic angle - minimal pleural effusion vs atelectasis , not present on CT 03/07 * desaturation maybe secondary to anemia and perhaps mucus plugging Plan -with respect to endoscopy procedure it is best to complete them during hospitalization, pt would hopefully be most optimized by early next week, tentativey Monday would be ideal if no events -continue steroids with taper -s/p mucomyst -chest PT, flutter device and incentive spirometry aggressively -cardiology evaluation noted -diuresis -TRC/Nebs -right blunting of costophrenic angle - minimal pleural effusion vs atelectasis, not present on CT 03/07, check CXR 04/19 - TODAY DVT prophylaxis at all times
--- NOTE | 2018-04-19 09:31 | RADIOLOGY REPORT ---
EXAMINATION: XR PORTABLE CHEST CLINICAL INFORMATION: 67-year-old male patient with COPD. CHF. Follow-up. COMPARISON: CT of the chest on 02/27/2018. Portable chest x-rays since then on March 07, March 09, March 11, April 10, April 13, April 14, and April 16. TECHNIQUE: Portable AP semierect view of the chest was obtained. FINDINGS: Reexamination shows no change in the prominent cardiac silhouette. Diffuse reticular opacities combined with emphysematous changes particularly on the right side are chronic. The pulmonary edema has cleared. The blunting of the right costophrenic angle is chronic. The retrocardiac opacity is also felt to be chronic. For confirmation, a lateral film would be helpful when the patient's clinical condition permits. IMPRESSION: Chronic lung disease with emphysema. No pulmonary edema at this time.
[2018-04-19 14:20] VITALS: BP 114/62
[2018-04-19 22:05] VITALS: BP 126/82
[2018-04-20 06:40] VITALS: BP 116/68
--- NOTE | 2018-04-20 07:21 | PN- Housestaff ---
AdrientomAnujyoel 04/20/18 0720: Subjective Follow-up For: -acute on chronic blood loss anemia -MRSA bronchitis -b/l plueral effusion -copd on 6 litres (chronic respiratory failure) -Epistaxis -HFrEF Complaints: no complaints Subjective: Inhave seen and examined the patient today morning, he was sitting comfortably on the chair,seems to be in good spirit. he continues to be on 4 L of nasal oxygen, planned for EGD on Monday, we'll touch base with GI to plan the procedure on Monday and prep on Monday, no new complaints. Review of Systems Constitutional: Reports: see HPI. Objective Last 24 Hrs of Vital Signs/I&O Vital Signs Date Time Temp Pulse Resp B/P B/P Pulse O2 O2 Flow FiO2 Mean Ox Delivery Rate 04/20 0640 97.8 81 22 116/68 93 Nasal Cannula 04/20 0052 93 BIPAP 5.0L 04/20 0000 90 CPAP 04/19 2229 84 95 04/19 2205 98.2 98 22 126/82 97 04/19 2137 82 126/84 04/19 2136 82 126/82 04/19 1621 97 Nasal 4.0L Cannula 04/19 1420 97.5 75 18 114/62 98 04/19 0848 85 136/80 04/19 0848 85 136/80 04/19 0830 95 Nasal 4.0L Cannula 04/19 0800 Nasal 4.0L Cannula Intake & Output 04/20 0800 04/20 0000 04/19 1600 Intake Total 200 800 Output Total 425 900 Balance -225 -100 Intake, Oral 200 800 Number 1 Bowel Movements Output, Urine 425 900 Patient 80.881 kg Weight Physical Exam General Appearance: Alert, Oriented X3, Cooperative Cardiovascular: Normal S1, Normal S2, No Murmurs Lungs: Normal Air Movement, rhonchi present, basal crackles Abdomen: Normal Bowel Sounds, Soft, No Tenderness Extremities: No Clubbing, No Cyanosis Vascular: Normal Pulses Current Medications: Current Medications Sig/Eve Start time Last Medication Dose Route Stop Time Status Admin Albuterol Sulfate 3 ML EVERY 4 HRS/AWAKE 04/11 08 AC 04/19 INH 2037 Budesonide/ 2 PUF BID 04/10 2210 AC 04/19 Formoterol Fumarate INH 2136 Cyanocobalamin 1,000 MCG DAILY 04/11 0900 AC 04/19 PO 0848 Digoxin 0.125 MG Q48@1700 04/12 1700 AC 04/18 PO 1700 Diltiazem HCl 240 MG DAILY 04/11 09 AC 04/19 PO 0848 Ferrous Sulfate 325 MG TID 04/11 0900 AC 04/19 PO 2136 Fluticasone 2 SPRAY DAILY 04/12 1437 AC 04/19 Propionate CESAR 0849 Furosemide 80 MG 7:30 AM, & 4:30 PM 04/11 0730 AC 04/19 PO 1642 Guaifenesin 600 MG Q12 04/13 1036 AC 04/19 PO 2136 Guaifenesin/ 10 ML .STK-MED ONE 04/19 1147 DC Dextromethorphan PO 04/19 1148 Guaifenesin/ 10 ML Q6P PRN 04/11 1415 AC 04/19 Dextromethorphan PO 1149 Hydralazine HCl 10 MG BID 04/10 221 AC 04/19 PO 2136 Insulin Aspart 0 TIDAC 04/17 1700 AC 04/19 SC 1643 Insulin Aspart 0 AT BEDTIME 04/11 2100 AC 04/19 SC 2135 Insulin Detemir 8 UNITS AT BEDTIME 04/11 2100 AC 04/19 SC 2137 Insulin Detemir 10 UNITS 0904/11 0900 AC 04/19 SC 0848 Metoprolol Tartrate 25 MG BID 04/10 221 AC 04/19 PO 2137 Morphine Sulfate 2.5 MG Q2P PRN 04/10 221 AC 04/15 PO 0755 Omeprazole 40 MG DAILY AC 04/11 07 AC 04/19 PO 0639 Oxycodone/ 2 TAB Q4-6 PRN 04/10 2245 AC Acetaminophen PO Oxycodone/ 1 TAB Q4-6 PRN 04/10 221 AC Acetaminophen PO Prednisone 40 MG DAILY 04/18 09 AC 04/19 PO 0848 Sodium Chloride 2 SPRAY Q4P PRN 04/10 2215 AC 04/13 CESAR 0718 Tiotropium [place] 1 PUF DAILY 04/11 0900 AC 04/19 INH 0857 Vancomycin HCl 1,000 MG 1700 04/18 1700 AC 04/19 Sodium Chloride 250 ML IV 1643 Lines/Diet/Fluids Restraints: none Assessment/Plan Assessment: is a 67-year-old male with past medical history of COPD on 4 L of oxygen and nocturnal BiPAP (followed by Dr. So), atrial fibrillation on the rivaroxaban (followed by Dr. Walton), diabetes mellitus, hypertension, hyperlipidemia, abdominal aortic aneurysm status post repair, heart failure with reduced EF (EF of 30-35%), GERD, prostate cancer and chronic kidney disease was brought in on the 10 april from [facility] after blood work showing anemia. Today is his day 10 of admission. Pproblem list along with assessment and plan #1 Acute on chronic blood loss anemia requiring blood transfusion, guaiac positive stools. Mr. Vieira's baseline hemoglobin is 8.0, status post 3 units of packed cell transfusion, H/H stable at 8.4/25.9, low serum iron and with normal ferritin levels but reduced TIBC. Most likely GI source with guaiac-positive stools. As per discussion with Dr. Cabrera, we will plan for endoscopy/colonoscopy on Monday04/23/2018.We will transfusion him to clear liquid diet on monday and prep him on monday. Please follow up with GI orders to prep on monday.He continues to be off anticoagulation.We will recheck lab tomorrow target hemoglobin about 8, if severe bleeding noticed please notify GI stat. #2 chronic respiratory failure : Continue TRC nebulizations, continue steroid taper, aggressive chest physical therapy with Mucomyst, continue oxygenation to maintain saturations above 92%. #3 MRSA tracheobronchitis: Sensitivity back, continue IV vancomycin, today is last day of antibiotics,will d/c after last dose. #4 diabetes mellitus :ct 8 units at bedtime, NovoLog sliding scale, consistent carbohydrate diet, last 3 fingersticks noted to be [phone], hyperglycemia secondary to steroid intake, consider adjustment of insulin while on steroids. #5 history of hypertension : ct hydralazine 10 mg twice a day, Lopressor 25 mg twice a day, Cardizem 40 mg daily. #6 epistaxis : Resolved, continue to hold anticoagulation, humidify oxygen. #7 leukocytosis : No evidence of infection, secondary to steroid administration, continue to follow. Full code DVT prophylaxis with Alps. Regular diet per patient request. Pain management with Tylenol. Problem List: 1. Acute respiratory failure with hypoxia 2. Chronic anemia 3. Fecal occult blood test positive 4. Chronic renal failure 5. Symptomatic anemia Pain Ratin Pain Location: none Pain Goal: Remain pain free Pain Plan: .. Tomorrow's Labs & Rationales: not needed Akash CRAnushka 04/20/18 1350: Attending MD Review Statement Attending Statement Attending MD Statement: examined this patient, discuss w/resident/PA/TRUCKING CONTRACTOR, agreed w/resident/PA/TRUCKING CONTRACTOR, reviewed EMR data (avail), discussed with nursing, discussed with case mgmt, reviewed images Attending Assessment/Plan: Patient feels well. He still coughing and has sputum but better than before. He finishes his antibiotic course today for an MRSA bronchitis with copious secretions. He will start a clear liquid diet on Monday but the prep on Monday night for an endoscopy and colonoscopy on Monday morning. He had significant anemia requiring blood transfusions and his anticoagulation has been on hold. If his endoscopy and colonoscopy are unrevealing then the plan will be to restart his anticoagulant and likely discharge home. He's been working with physical therapy towards that goal.
--- NOTE | 2018-04-20 13:17 | PN- Pulmonary ---
Subjective HPI/Critical Care Issues: pt seen and examined comfortable to dee gutierrez today Objective Current Medications: Current Medications Sig/Eve Start time Last Medication Dose Route Stop Time Status Admin Albuterol Sulfate 3 ML EVERY 4 HRS/AWAKE 04/11 08 AC 04/20 INH 1210 Budesonide/ 2 PUF BID 04/10 2210 AC 04/20 Formoterol Fumarate INH 0831 Cyanocobalamin 1,000 MCG DAILY 04/11 09 AC 04/20 PO 0833 Digoxin 0.125 MG Q48@1700 04/12 1700 AC 04/18 PO 1700 Diltiazem HCl 240 MG DAILY 04/11 09 AC 04/20 PO 0832 Ferrous Sulfate 325 MG TID 04/11 09 AC 04/20 PO 1301 Fluticasone 2 SPRAY DAILY 04/12 1437 AC 04/20 Propionate CESAR 0831 Furosemide 80 MG 7:30 AM, & 4:30 PM 04/11 07 AC 04/20 PO 0832 Guaifenesin 600 MG Q12 04/13 1036 AC 04/20 PO 0833 Guaifenesin/ 10 ML Q6P PRN 04/11 1415 AC 04/19 Dextromethorphan PO 1149 Hydralazine HCl 10 MG BID 04/10 221 AC 04/20 PO 0832 Insulin Aspart 0 TIDAC 04/17 1700 AC 04/20 RI 1139 Insulin Aspart 0 AT BEDTIME 04/11 2100 AC 04/19 SC 2135 Insulin Detemir 8 UNITS AT BEDTIME 04/11 2100 AC 04/19 RI 2137 Insulin Detemir 10 UNITS 0900 04/11 09 AC 04/20 SC 0831 Metoprolol Tartrate 25 MG BID 04/10 2212 AC 04/20 PO 0833 Morphine Sulfate 2.5 MG Q2P PRN 04/10 221 AC 04/15 PO 0755 Omeprazole 40 MG DAILY AC 04/11 07 AC 04/20 PO 0832 Oxycodone/ 2 TAB Q4-6 PRN 04/10 2245 AC Acetaminophen PO Oxycodone/ 1 TAB Q4-6 PRN 04/10 2215 AC Acetaminophen PO Prednisone 40 MG DAILY 04/18 09 AC 04/20 PO 0833 Sodium Chloride 2 SPRAY Q4P PRN 04/10 2215 AC 04/13 CESAR 0718 Tiotropium [place] 1 PUF DAILY 04/11 0900 AC 04/20 INH 0831 Vancomycin HCl 1,000 MG 1700 04/18 1700 AC 04/19 Sodium Chloride 250 ML IV 04/20 1701 1643 Vital Signs & I&O Last 24 Hrs of Vitals and I&O: Vital Signs Date Time Temp Pulse Resp B/P B/P Pulse O2 O2 Flow FiO2 Mean Ox Delivery Rate 04/20 0852 97 Nasal 4.0L Cannula 04/20 0833 81 116/68 04/20 0832 81 116/68 04/20 0800 Nasal 4.0L Cannula 04/20 0640 97.8 81 22 116/68 93 Nasal Cannula 04/20 0052 93 BIPAP 5.0L 04/20 0000 90 CPAP 04/19 2229 84 95 04/19 2205 98.2 98 22 126/82 97 04/19 2137 82 126/84 04/19 2136 82 126/82 04/19 1621 97 Nasal 4.0L Cannula 04/19 1420 97.5 75 18 114/62 98 Intake & Output 04/20 1600 04/20 0800 04/20 0000 Intake Total 200 Output Total 500 1025 Balance -500 -825 Intake, Oral 200 Output, Urine 500 1025 Patient 178 lb Weight Exam Other Physical Findings: gen - awake and alert head/neck - high flow nasal cannul cvs -s1, s2 lungs - b/l rare rhonchi abd - soft, bs+ ext 2+ edema Impression/Plan Impression/Plan Impression/Plan: Impression 67 year old man * MRSA tracheobronchitis * right blunting of costophrenic angle - minimal pleural effusion vs atelectasis , not present on CT 03/07 * desaturation maybe secondary to anemia and perhaps mucus plugging Plan -with respect to endoscopy procedure it is best to complete them during hospitalization, pt would hopefully be most optimized by early next week, tentativey Monday would be ideal if no events -continue steroids with taper -s/p mucomyst -chest PT, flutter device and incentive spirometry aggressively -cardiology evaluation noted -diuresis -TRC/Nebs DVT prophylaxis at all times
[2018-04-20 22:04] VITALS: BP 134/80
[2018-04-21 07:58] LABS: ABSOLUTE BASOPHIL COUNT 0 /CUMM (0.0-0.2); ABSOLUTE EOSINOPHIL COUNT 0 /CUMM (0.0-0.7); ABSOLUTE GRANULOCYTE CT 10.2 /CUMM (1.4-6.5); ABSOLUTE MONOCYTE COUNT 0.7 /CUMM (0.10-0.60); BASOPHIL % 0.1 % (0.0-2.0); EOSINOPHIL % 0.2 % (0-5); GRANULOCYTE % 85.6 % (42.2-75.2); HEMATOCRIT 26.3 % (42-52); MEAN CORPUSCULAR HGB 29.9 PG (27.0-31.0); MEAN CORPUSCULAR HGB CONC 33.2 G/DL (33.0-37.0); MEAN CORPUSCULAR VOLUME 90.1 FL (80.0-94.0); MEAN PLATELET VOLUME 8.9 FL (7.4-10.4); PLATELET COUNT 189 /CUMM (130-400); RBC DISTRIBUTION WIDTH 18.5 % (11.5-14.5); RED BLOOD CELL CT 2.92 /CUMM (4.70-6.10); WHITE BLOOD CELL COUNT 11.9 /CUMM (4.8-10.8)
[2018-04-21 08:20] VITALS: BP 124/70
--- NOTE | 2018-04-21 09:54 | PN- Housestaff ---
Andrew CR,Quinn 04/21/18 0954: Subjective Follow-up For: -acute on chronic blood loss anemia -MRSA bronchitis -b/l plueral effusion -copd on 6 litres (chronic respiratory failure) -Epistaxis -HFrEF Subjective: Saw pt at bedside this AM. No acute overnight events or complaints. He stated that he was still out of breath when waking short distances but he did complete walking a flight of stairs. He is on 5 L o2, his home requirement is 4L. Review of Systems Constitutional: Reports: weakness. Denies: chills, fever. EENTM: Reports: no symptoms. Cardiovascular: Denies: chest pain, palpitations. Respiratory: Reports: short of breath. Gastrointestinal: Denies: abdominal pain, nausea. Musculoskeletal: Reports: no symptoms. Objective Last 24 Hrs of Vital Signs/I&O Vital Signs Date Time Temp Pulse Resp B/P B/P Pulse O2 O2 Flow FiO2 Mean Ox Delivery Rate 04/21 0938 98 Nasal 4.0L Cannula 04/21 0851 94 Nasal 5.0L Cannula 04/21 0820 83 124/70 04/21 0820 124/70 04/21 0819 83 124/70 04/21 0201 94 BIPAP 5.0L 04/21 0000 88 CPAP 04/20 2304 83 92 04/20 2204 97.3 73 22 134/80 98 04/20 2131 88 134/80 04/20 2131 88 134/80 04/20 1605 96 Nasal 4.0L Cannula 04/20 1600 93 Nasal 4.0L Cannula Intake & Output 04/21 1600 04/21 0800 06 0000 Intake Total 880 800 Output Total 1100 400 Balance -220 400 Intake, IV 250 Intake, Oral 880 550 Number 2 Bowel Movements Output, Urine 1100 400 Patient 81.675 kg Weight Physical Exam General Appearance: Alert, Oriented X3, Cooperative, No Acute Distress HEENT: Atraumatic, PERRLA Neck: Supple Cardiovascular: Regular Rate, Normal S1, Normal S2 Lungs: diminished breath sounds bilat Abdomen: Soft, No Tenderness Extremities: he has edema bilat but more on his RLE, than LLE. Current Medications: Current Medications Sig/Eve Start time Last Medication Dose Route Stop Time Status Admin Albuterol Sulfate 3 ML EVERY 4 HRS/AWAKE 04/11 0800 AC 04/21 INH 0850 Budesonide/ 2 PUF BID 04/10 2210 04/21 Formoterol Fumarate INH 0821 Cyanocobalamin 1,000 MCG DAILY 04/11 09 04/21 PO 0819 Digoxin 0.125 MG Q48@1700 04/12 1700 04/20 PO 1836 Diltiazem HCl 240 MG DAILY 04/11 09 04/21 PO 0818 Ferrous Sulfate 325 MG TID 04/11 09 04/21 PO 0819 Fluticasone 2 SPRAY DAILY 04/12 1437 04/21 Propionate CESAR 0821 Furosemide 80 MG 7:30 AM, & 4:30 PM 04/11 07 04/21 PO 0818 Guaifenesin 600 MG Q12 04/13 1036 04/21 PO 0819 Guaifenesin/ 10 ML Q6P PRN 04/11 1415 04/19 Dextromethorphan PO 1149 Hydralazine HCl 10 MG BID 04/10 221 04/21 PO 0820 Insulin Aspart 0 TIDAC 04/17 1700 04/20 RI 1829 Insulin Aspart 0 AT BEDTIME 04/11 2100 04/20 RI 2126 Insulin Detemir 8 UNITS AT BEDTIME 04/11 2100 04/20 SC 2125 Insulin Detemir 10 UNITS 0904/11 09 04/21 SC 0905 Metoprolol Tartrate 25 MG BID 04/10 2212 04/21 PO 0819 Morphine Sulfate 2.5 MG Q2P PRN 04/10 221 04/15 PO 0755 Omeprazole 40 MG DAILY AC 04/11 07 04/21 PO 0710 Oxycodone/ 2 TAB Q4-6 PRN 04/10 224 Acetaminophen PO Oxycodone/ 1 TAB Q4-6 PRN 04/10 221 Acetaminophen PO Prednisone 10 MG DAILY 04/27 900 AC PO 04/29 901 Prednisone 20 MG DAILY 04/24 900 AC PO 04/26 901 Prednisone 30 MG DAILY 04/21 09 AC 04/21 PO 04/23 0901 0825 Prednisone 40 MG DAILY 04/18 09 DC 04/20 PO 0833 Sodium Chloride 2 SPRAY Q4P PRN 04/10 2215 04/13 CESAR 0718 Tiotropium [place] 1 PUF DAILY 04/11 0900 AC 04/21 INH 0825 Vancomycin HCl 1,000 MG 1700 04/18 1700 DC 04/20 Sodium Chloride 250 ML IV 04/20 1701 1828 Last 24 Hrs of Lab/Sridhar Results Last 24 Hrs of Labs/Mics: Laboratory Tests 04/21/18 0700: Anion Gap 11, Estimated GFR 40 L, BUN/Creatinine Ratio 38.2 H, CBC w Diff MAN DIFF ORDERED, RBC 2.92 L, MCV 90.1, MCH 29.9, MCHC 33.2, RDW 18.5 H, MPV 8.9, Gran % 85.6 H, Lymphocytes % 8.2 L, Monocytes % 5.9, Eosinophils % 0.2, Basophils % 0.1, Absolute Granulocytes 10.2 H, Absolute Lymphocytes 1.0 L, Absolute Monocytes 0.7 H, Absolute Eosinophils 0, Absolute Basophils 0, Platelet Estimate VERIFIED BY SMEAR, Poikilocytosis 1+, Basophilic Stippling 1+, Anisocytosis 1+, Ovalocytes 1+ Assessment/Plan Assessment: Assessment: is a 67-year-old male with past medical history of COPD on 4 L of oxygen and nocturnal BiPAP (followed by Dr. So), atrial fibrillation on the rivaroxaban (followed by Dr. Walton), diabetes mellitus, hypertension, hyperlipidemia, abdominal aortic aneurysm status post repair, heart failure with reduced EF (EF of 30-35%), GERD, prostate cancer and chronic kidney disease was brought in on the 10 april from [facility] after blood work showing anemia. Today is his day 10 of admission. PLAN: #1 Acute on chronic blood loss anemia requiring blood transfusion, guaiac positive stools. Mr. Vieira's baseline hemoglobin is 8.0, status post 3 units of packed cell transfusion. Most likely GI source with guaiac-positive stools. As per discussion with Dr. Cabrera, we will plan for endoscopy/colonoscopy on Monday04/23/2018. * Please follow up with GI orders to prep on monday * He continues to be off anticoagulation. * We will recheck lab tomorrow target hemoglobin about 8, if severe bleeding noticed please notify GI stat. #2 chronic respiratory failure : Continue TRC nebulizations, continue steroid taper, aggressive chest physical therapy with Mucomyst, continue oxygenation to maintain saturations above 92%. #3 MRSA tracheobronchitis: Sensitivity back, Finished course of IV vanco for abx. #4 diabetes mellitus :ct 8 units at bedtime, NovoLog sliding scale, consistent carbohydrate diet, last 3 fingersticks noted to be [phone], hyperglycemia secondary to steroid intake, consider adjustment of insulin while on steroids. #5 history of hypertension : ct hydralazine 10 mg twice a day, Lopressor 25 mg twice a day, Cardizem 40 mg daily. #6 epistaxis : Resolved, continue to hold anticoagulation, humidify oxygen. #7 leukocytosis : No evidence of infection, secondary to steroid administration, continue to follow. Problem List: 1. COPD (chronic obstructive pulmonary disease) 2. Bronchitis Pain Ratin Pain Location: none Pain Goal: Remain pain free Pain Plan: none Tomorrow's Labs & Rationales: cbc manoj Bustos MD,Anushka 04/21/18 1014: Attending MD Review Statement Attending Statement Attending MD Statement: examined this patient, discuss w/resident/PA/LOSS PREVENTION CONSULTANT, agreed w/resident/PA/LOSS PREVENTION CONSULTANT, reviewed EMR data (avail), discussed with nursing, reviewed images Attending Assessment/Plan: Patient was very active yesterday and worked a lot with physical therapy towards his goal of going home after his endoscopy and colonoscopy. He is doing okay in the Vanco has been stopped. He got 5 days for an MRSA tracheobronchitis with copious secretions. He is now on a prednisone taper for acute hypoxemic respiratory failure on chronic respiratory failure. He is also on by mouth Lasix for diuresis. His anticoagulation remains on hold because of the anemia and he'll start a clear liquid diet tomorrow morning with the plan for endoscopy and colonoscopy on Monday. Based on the results will restart his anticoagulation.
--- NOTE | 2018-04-21 11:47 | PN- Pulmonary ---
Subjective HPI/Critical Care Issues: pt seen and examined feeling well overnight accidentaly had o2 tubing disconnected no issues today planning for endoscopy on Monday Objective Current Medications: Current Medications Sig/Eve Start time Last Medication Dose Route Stop Time Status Admin Albuterol Sulfate 3 ML EVERY 4 HRS/AWAKE 04/11 08 04/21 INH 0850 Budesonide/ 2 PUF BID 04/10 2210 04/21 Formoterol Fumarate INH 0821 Cyanocobalamin 1,000 MCG DAILY 04/11 09 04/21 PO 0819 Digoxin 0.125 MG Q48@1700 04/12 1700 04/20 PO 1836 Diltiazem HCl 240 MG DAILY 04/11 09 04/21 PO 0818 Ferrous Sulfate 325 MG TID 04/11 900 04/21 PO 0819 Fluticasone 2 SPRAY DAILY 04/12 1437 04/21 Propionate CESAR 0821 Furosemide 80 MG 7:30 AM, & 4:30 PM 04/11 730 04/21 PO 0818 Guaifenesin 600 MG Q12 04/13 1036 04/21 PO 0819 Guaifenesin/ 10 ML Q6P PRN 04/11 1415 04/19 Dextromethorphan PO 1149 Hydralazine HCl 10 MG BID 04/10 2211 04/21 PO 0820 Insulin Aspart 0 TIDAC 04/17 1700 04/20 RI 1829 Insulin Aspart 0 AT BEDTIME 04/11 2100 04/20 RI 212 Insulin Detemir 8 UNITS AT BEDTIME 04/11 2100 04/20 RI 212 Insulin Detemir 10 UNITS 04/11 09 04/21 RI 0905 Metoprolol Tartrate 25 MG BID 04/10 221 04/21 PO 0819 Morphine Sulfate 2.5 MG Q2P PRN 04/10 221 AC 04/15 PO 0755 Omeprazole 40 MG DAILY AC 04/11 700 04/21 PO 0710 Oxycodone/ 2 TAB Q4-6 PRN 04/10 2245 Acetaminophen PO Oxycodone/ 1 TAB Q4-6 PRN 04/10 2215 Acetaminophen PO Prednisone 10 MG DAILY 04/27 900 PO 04/29 901 Prednisone 20 MG DAILY 04/24 900 PO 04/26 09 Prednisone 30 MG DAILY 04/21 900 AC 04/21 PO 04/23 0901 0825 Prednisone 40 MG DAILY 04/18 09 DC 04/20 PO 0833 Sodium Chloride 2 SPRAY Q4P PRN 04/10 2215 AC 04/13 CESAR 0718 Tiotropium [place] 1 PUF DAILY 04/11 900 AC 04/21 INH 0825 Vancomycin HCl 1,000 MG 1700 04/18 1700 DC 04/20 Sodium Chloride 250 ML IV 04/20 1701 1828 Vital Signs & I&O Last 24 Hrs of Vitals and I&O: Vital Signs Date Time Temp Pulse Resp B/P B/P Pulse O2 O2 Flow FiO2 Mean Ox Delivery Rate 04/21 0938 98 Nasal 4.0L Cannula 04/21 0851 94 Nasal 5.0L Cannula 04/21 0820 83 124/70 04/21 0820 124/70 04/21 0819 83 124/70 04/21 0201 94 BIPAP 5.0L 04/21 0000 88 CPAP 04/20 2304 83 92 04/20 2204 97.3 73 22 134/80 98 04/20 2131 88 134/80 04/20 2131 88 134/80 04/20 1605 96 Nasal 4.0L Cannula 04/20 1600 93 Nasal 4.0L Cannula Intake & Output 04/21 1600 04/21 0800 04/21 0000 Intake Total 880 800 Output Total 1100 400 Balance -220 400 Intake, IV 250 Intake, Oral 880 550 Number 2 Bowel Movements Output, Urine 1100 400 Patient 180 lb Weight Exam Other Physical Findings: gen - awake and alert head/neck - high flow nasal cannul cvs -s1, s2 lungs - b/l rare rhonchi abd - soft, bs+ ext edematous Results Last 24 Hrs of Lab Results: Laboratory Tests 04/21/18 0700: Anion Gap 11, Estimated GFR 40 L, BUN/Creatinine Ratio 38.2 H, CBC w Diff MAN DIFF ORDERED, RBC 2.92 L, MCV 90.1, MCH 29.9, MCHC 33.2, RDW 18.5 H, MPV 8.9, Gran % 85.6 H, Lymphocytes % 8.2 L, Monocytes % 5.9, Eosinophils % 0.2, Basophils % 0.1, Absolute Granulocytes 10.2 H, Absolute Lymphocytes 1.0 L, Absolute Monocytes 0.7 H, Absolute Eosinophils 0, Absolute Basophils 0, Platelet Estimate VERIFIED BY SMEAR, Poikilocytosis 1+, Basophilic Stippling 1+, Anisocytosis 1+, Ovalocytes 1+ Impression/Plan Impression/Plan Impression/Plan: Impression 67 year old man * MRSA tracheobronchitis -completed course of Vancomycin * right blunting of costophrenic angle - minimal pleural effusion vs atelectasis , not present on CT 03/07 -stable cxr * severe COPD, chronic hypoxemic respiratory failure Plan -Endoscopy on Monday -continue steroids with taper -chest PT, flutter device and incentive spirometry aggressively -diuresis -TRC/Nebs DVT prophylaxis at all times
[2018-04-21 14:46] VITALS: BP 124/62
[2018-04-21 22:12] VITALS: BP 128/70
[2018-04-22 06:28] VITALS: BP 120/66
[2018-04-22 07:51] LABS: ABSOLUTE BASOPHIL COUNT 0 /CUMM (0.0-0.2); ABSOLUTE EOSINOPHIL COUNT 0.1 /CUMM (0.0-0.7); ABSOLUTE GRANULOCYTE CT 8.7 /CUMM (1.4-6.5); ABSOLUTE MONOCYTE COUNT 0.7 /CUMM (0.10-0.60); BASOPHIL % 0.2 % (0.0-2.0); EOSINOPHIL % 0.7 % (0-5); GRANULOCYTE % 82.4 % (42.2-75.2); HEMATOCRIT 26.7 % (42-52); MEAN CORPUSCULAR HGB 29.6 PG (27.0-31.0); MEAN CORPUSCULAR HGB CONC 32.9 G/DL (33.0-37.0); PLATELET COUNT 190 /CUMM (130-400); RBC DISTRIBUTION WIDTH 18.7 % (11.5-14.5); RED BLOOD CELL CT 2.97 /CUMM (4.70-6.10); WHITE BLOOD CELL COUNT 10.5 /CUMM (4.8-10.8)
--- NOTE | 2018-04-22 08:27 | PN- Pulmonary ---
Subjective HPI/Critical Care Issues: pt seen and examined afebrile 98.8 hemodynamically stable saturating 95% no events Objective Current Medications: Current Medications Sig/Eve Start time Last Medication Dose Route Stop Time Status Admin Albuterol Sulfate 3 ML EVERY 4 HRS/AWAKE 04/11 08 AC 04/21 INH 2100 Budesonide/ 2 PUF BID 04/10 2210 04/21 Formoterol Fumarate INH 2128 Cyanocobalamin 1,000 MCG DAILY 04/11 09 AC 04/21 PO 0819 Digoxin 0.125 MG Q48@1700 04/12 1700 AC 04/20 PO 1836 Diltiazem HCl 240 MG DAILY 04/11 09 AC 04/21 PO 0818 Ferrous Sulfate 325 MG TID 04/11 09 AC 04/21 PO 212 Fluticasone 2 SPRAY DAILY 04/12 1437 04/21 Propionate CESAR 0821 Furosemide 80 MG 7:30 AM, & 4:30 PM 04/11 730 04/21 PO 1632 Guaifenesin 600 MG Q12 04/13 1036 04/21 PO 2127 Guaifenesin/ 10 ML Q6P PRN 04/11 1415 AC 04/19 Dextromethorphan PO 1149 Hydralazine HCl 10 MG BID 04/10 2211 AC 04/21 PO 212 Insulin Aspart 0 TIDAC 04/17 1700 04/21 MO 1750 Insulin Aspart 0 AT BEDTIME 04/11 2100 AC 04/21 SC 2127 Insulin Detemir 8 UNITS AT BEDTIME 04/11 2100 AC 04/21 MO 212 Insulin Detemir 10 UNITS 0904/11 09 04/21 SC 0905 Metoprolol Tartrate 25 MG BID 04/10 2212 AC 04/21 PO 212 Morphine Sulfate 2.5 MG Q2P PRN 04/10 221 AC 04/15 PO 0755 Omeprazole 40 MG DAILY AC 04/11 07 AC 04/22 PO 06 Oxycodone/ 2 TAB Q4-6 PRN 04/10 2245 AC Acetaminophen PO Oxycodone/ 1 TAB Q4-6 PRN 04/10 2215 AC Acetaminophen PO Prednisone 10 MG DAILY 04/27 900 AC PO 04/29 901 Prednisone 20 MG DAILY 04/24 900 AC PO 04/26 09 Prednisone 30 MG DAILY 04/21 09 AC 04/21 PO 04/23 0901 0825 Sodium Chloride 2 SPRAY Q4P PRN 04/10 2215 AC 04/13 CESAR 0718 Tiotropium [place] 1 PUF DAILY 04/11 09 AC 04/21 INH 0825 Vital Signs & I&O Last 24 Hrs of Vitals and I&O: Vital Signs Date Time Temp Pulse Resp B/P B/P Pulse O2 O2 Flow FiO2 Mean Ox Delivery Rate 04/22 628 98.8 89 18 120/66 95 Nasal Cannula 04/21 2258 96 04/21 2229 94 Nasal 4.0L Cannula 04/21 221 98.9 82 16 128/70 96 Nasal Cannula 04/21 2127 72 128/70 04/21 2127 72 128/70 04/21 1700 97 Nasal 6.0L Cannula 04/21 1446 98.9 79 20 124/62 96 04/21 0938 98 Nasal 4.0L Cannula 04/21 0851 94 Nasal 5.0L Cannula Intake & Output 04/22 1600 04/22 0800 04/22 0000 Intake Total 240 461 Output Total 950 750 Balance -710 -289 Intake, Oral 240 461 Number 1 Bowel Movements Output, Urine 950 750 Patient 181 lb Weight Weight Bed scale Measurement Method Exam Other Physical Findings: gen - awake and alert head/neck - high flow nasal cannul cvs -s1, s2 lungs - b/l rare rhonchi abd - soft, bs+ ext edematous Results Last 24 Hrs of Lab Results: Laboratory Tests 04/22/18 0636: Anion Gap 7, Estimated GFR 43 L, BUN/Creatinine Ratio 40.6 H, CBC w Diff NO MAN DIFF REQ, RBC 2.97 L, MCV 90.0, MCH 29.6, MCHC 32.9 L, RDW 18.7 H, MPV 9.0, Gran % 82.4 H, Lymphocytes % 9.9 L, Monocytes % 6.8, Eosinophils % 0.7, Basophils % 0.2, Absolute Granulocytes 8.7 H, Absolute Lymphocytes 1.0 L, Absolute Monocytes 0.7 H, Absolute Eosinophils 0.1, Absolute Basophils 0 Impression/Plan Impression/Plan Impression/Plan: Impression 67 year old man * MRSA tracheobronchitis -completed course of Vancomycin * right blunting of costophrenic angle - minimal pleural effusion vs atelectasis , not present on CT 03/07 -stable cxr * severe COPD, chronic hypoxemic respiratory failure Plan -Endoscopy on Monday, prep today -continue steroids with taper -chest PT, flutter device and incentive spirometry aggressively -diuresis -TRC/Nebs DVT prophylaxis at all times
--- NOTE | 2018-04-22 08:30 | PN- Housestaff ---
Evan CR,Uzma 04/22/18 0830: Subjective Follow-up For: -acute on chronic blood loss anemia -MRSA bronchitis -b/l plueral effusion -copd on 6 litres (chronic respiratory failure) -Epistaxis -HFrEF Tele-Events Since Last Visit: Beto HR: 60s to 70s Subjective: Patient was seen and examined today. Patient denies any complaints overnight or at time of interview. Patient is aware of bowel prep and colonoscopy/endoscopy tomorrow. No acute events overnight. Review of Systems Constitutional: Reports: see HPI. Objective Last 24 Hrs of Vital Signs/I&O Vital Signs Date Time Temp Pulse Resp B/P B/P Pulse O2 O2 Flow FiO2 Mean Ox Delivery Rate 04/22 1614 85 112/82 04/22 1532 85 112/82 04/22 1443 97.1 87 18 140/60 93 04/22 0904 77 132/76 04/22 0904 77 132/76 04/22 0858 77 132/76 04/22 0858 94 Nasal 4.0L Cannula 04/22 0800 Nasal 4.5L Cannula 04/22 0628 98.8 89 18 120/66 95 Nasal Cannula 04/21 2258 96 04/21 2229 94 Nasal 4.0L Cannula 04/21 2212 98.9 82 16 128/70 96 Nasal Cannula 04/21 2127 72 128/70 04/21 2127 72 128/70 04/21 1700 97 Nasal 6.0L Cannula Intake & Output 04/22 1600 04/22 0800 04/22 0000 Intake Total 1968 240 461 Output Total 1800 950 750 Balance 168 710 -289 Intake, Oral 1968 240 461 Number 1 Bowel Movements Output, Urine 1800 950 750 Patient 181 lb Weight Weight Bed scale Measurement Method Physical Exam General Appearance: Alert, Oriented X3, Cooperative, No Acute Distress Skin Temp/Moisture Exam: Warm/Dry HEENT: Atraumatic, Mucous Membr. moist/pink Cardiovascular: Regular Rate, Normal S1, Normal S2 Lungs: decreased breath sounds bilaterally Abdomen: Normal Bowel Sounds, Soft, No Tenderness Neurological: Normal Speech, Cranial Nerves 3-12 NL Extremities: bilateral lower extremity edema Current Medications: Current Medications Sig/Eve Start time Last Medication Dose Route Stop Time Status Admin Albuterol Sulfate 3 ML EVERY 4 HRS/AWAKE 04/11 0800 AC 04/22 INH 1625 Budesonide/ 2 PUF BID 05/22 221 04/22 Formoterol Fumarate INH 0905 Cyanocobalamin 1,000 MCG DAILY 04/11 09 04/22 PO 0904 Digoxin 0.125 MG Q48@1700 04/12 1700 04/22 PO 1614 Diltiazem HCl 240 MG DAILY 04/11 0900 AC 04/22 PO 0904 Ferrous Sulfate 325 MG TID 04/11 0900 04/22 PO 1310 Fluticasone 2 SPRAY DAILY 04/12 1437 04/22 Propionate CESAR 0905 Furosemide 80 MG 7:30 AM, & 4:30 PM 04/11 0730 04/22 PO 1535 Guaifenesin 600 MG Q12 04/13 1036 04/22 PO 0904 Guaifenesin/ 10 ML Q6P PRN 04/11 141 04/19 Dextromethorphan PO 1149 Hydralazine HCl 10 MG BID 04/10 2211 04/22 PO 0904 Insulin Aspart 0 TIDAC 04/17 1700 04/22 SC 1236 Insulin Aspart 0 AT BEDTIME 04/11 2100 04/21 SC 2128 Insulin Detemir 8 UNITS AT BEDTIME 04/11 2100 04/21 SC 2127 Insulin Detemir 10 UNITS 0900 04/11 09 04/22 SC 0904 Metoprolol Tartrate 25 MG BID 04/10 2212 04/22 PO 0904 Morphine Sulfate 2.5 MG Q2P PRN 04/10 221 04/15 PO 0755 Omeprazole 40 MG DAILY 04/11 07 04/22 PO 0607 Oxycodone/ 2 TAB Q4-6 PRN 04/10 224 Acetaminophen PO Oxycodone/ 1 TAB Q4-6 PRN 04/10 221 Acetaminophen PO Polyethylene Glycol 0.5 GAL ONCE ONE 04/23 07 PO 04/23 07 Polyethylene Glycol 0.5 GAL ONCE ONE 04/22 1700 04/22 PO 04/22 1701 1614 Prednisone 10 MG DAILY 04/27 900 PO 04/29 09 Prednisone 20 MG DAILY 04/24 09 PO 04/26 09 Prednisone 30 MG DAILY 04/21 900 04/22 PO 04/23 09 0904 Sodium Chloride 2 SPRAY Q4P PRN 04/10 2215 AC 04/13 CESAR 0718 Tiotropium [place] 1 PUF DAILY 04/11 0900 AC 04/22 INH 0905 Last 24 Hrs of Lab/Sridhar Results Last 24 Hrs of Labs/Mics: Laboratory Tests 04/22/18 0636: Anion Gap 7, Estimated GFR 43 L, BUN/Creatinine Ratio 40.6 H, CBC w Diff NO MAN DIFF REQ, RBC 2.97 L, MCV 90.0, MCH 29.6, MCHC 32.9 L, RDW 18.7 H, MPV 9.0, Gran % 82.4 H, Lymphocytes % 9.9 L, Monocytes % 6.8, Eosinophils % 0.7, Basophils % 0.2, Absolute Granulocytes 8.7 H, Absolute Lymphocytes 1.0 L, Absolute Monocytes 0.7 H, Absolute Eosinophils 0.1, Absolute Basophils 0 Assessment/Plan Assessment: is a 67-year-old male with past medical history of COPD on 4 L of oxygen and nocturnal BiPAP (followed by Dr. So), atrial fibrillation on the rivaroxaban (followed by Dr. Walton), diabetes mellitus, hypertension, hyperlipidemia, abdominal aortic aneurysm status post repair, heart failure with reduced EF (EF of 30-35%), GERD, prostate cancer and chronic kidney disease was brought in on the 10 april from [facility] after blood work showing anemia. Today is his day 10 of admission. PLAN: #1 Acute on chronic blood loss anemia requiring blood transfusion, guaiac positive stools. Mr. Vieira's baseline hemoglobin is 8.0, status post 3 units of packed cell transfusion. Most likely GI source with guaiac-positive stools. As per discussion with Dr. Cabrera, we will plan for endoscopy/colonoscopy on Monday04/23/2018. * Spoke to Dr. Walton today. Patient will have 1/2 gallon of golytely this evening and 1/2 gallon in the morning at 7AM. Patient is on a clear liquid diet today. Patient will be NPO after second half of prep at approximately 9AM tomorrow. * He continues to be off anticoagulation. * We will recheck lab tomorrow target hemoglobin about 8, if severe bleeding noticed please notify GI stat. #2 chronic respiratory failure : Continue TRC nebulizations, continue steroid taper, aggressive chest physical therapy with Mucomyst, continue oxygenation to maintain saturations above 92%. #3 MRSA tracheobronchitis: Sensitivity back, Finished course of IV vanco for abx. #4 diabetes mellitus :ct 8 units at bedtime, NovoLog sliding scale, consistent carbohydrate diet, last 3 fingersticks noted to be [phone], hyperglycemia secondary to steroid intake, consider adjustment of insulin while on steroids. #5 history of hypertension : ct hydralazine 10 mg twice a day, Lopressor 25 mg twice a day, Cardizem 40 mg daily. #6 epistaxis : Resolved, continue to hold anticoagulation, humidify oxygen. #7 leukocytosis : No evidence of infection, secondary to steroid administration, continue to follow. Problem List: 1. Symptomatic anemia Pain Ratin Pain Location: n/a Pain Goal: Remain pain free Pain Plan: n/a Tomorrow's Labs & Rationales: cbc bep Akash CR,Anushka 04/22/18 0940: Attending MD Review Statement Attending Statement Attending MD Statement: examined this patient, discuss w/resident/PA/HEALTH/SAFETY JOB TITLES, agreed w/resident/PA/HEALTH/SAFETY JOB TITLES, reviewed EMR data (avail), discussed with nursing, discussed with case mgmt, reviewed images Attending Assessment/Plan: Patient seen and examined. He is nervous about the procedure for tomorrow. He is a 67-year-old male with advanced lung disease, ckd, chronic hypoxemic respiratory failure and, A. fib on anticoagulation on hold right now secondary to GI bleed issue. Finished 5 days of antibiotics with IV vancomycin for MRSA tracheobronchitis with copious secretions and is on a prednisone taper per Dr. So now. He is going to have an endoscopy and colonoscopy tomorrow and if that's okay restart anticoagulation. PT has been actively working with him with the goal to get him home after his procedure.
[2018-04-22 08:58] VITALS: BP 132/76
[2018-04-22 14:43] VITALS: BP 140/60
[2018-04-22 15:32] VITALS: BP 112/82
[2018-04-22 22:20] VITALS: BP 116/64
[2018-04-23 06:40] VITALS: BP 110/70
--- NOTE | 2018-04-23 07:32 | PN- Housestaff ---
Anuj Leonardyoel 04/23/18 0731: Subjective Follow-up For: -Acute blood loss anemia Complaints: no complaints Tele-Events Since Last Visit: a flutter 60 to 70 Subjective: seen amd examiend the patient, no acute complaints, will go for endo/colonscopy today Review of Systems Constitutional: Reports: see HPI. Objective Last 24 Hrs of Vital Signs/I&O Vital Signs Date Time Temp Pulse Resp B/P B/P Pulse O2 O2 Flow FiO2 Mean Ox Delivery Rate 04/23 640 98.1 73 20 110/70 92 CPAP 04/22 2259 95 Nasal 4.0L Cannula 04/22 2220 98.2 94 18 116/64 95 Nasal Cannula 04/22 2215 Nasal 4.0L Cannula 04/22 2125 87 116/64 04/22 2125 87 116/64 04/22 1625 97 Nasal 4.0L Cannula 04/22 1614 85 112/82 04/22 1532 85 112/82 04/22 1443 97.1 87 18 140/60 93 04/22 0904 77 132/76 04/22 0904 77 132/76 04/22 0858 77 132/76 04/22 0858 94 Nasal 4.0L Cannula 04/22 0800 Nasal 4.5L Cannula Intake & Output 04/23 0800 /04 0000 04/22 1600 Intake Total 300 2160 1968 Output Total 700 1999 1800 Balance -400 160 168 Intake, Oral 300 2160 1968 Number 2 3 Bowel Movements Output, Urine 700 1999 1800 Patient 80.484 kg Weight Weight Bed scale Measurement Method Physical Exam General Appearance: Alert, Oriented X3, Cooperative, No Acute Distress Cardiovascular: Normal S1, Normal S2, No Murmurs Lungs: Clear to Auscultation, Normal Air Movement Abdomen: Normal Bowel Sounds, Soft, No Tenderness Extremities: No Clubbing, No Cyanosis, No Edema, Normal Pulses Vascular: Normal Pulses Current Medications: Current Medications Sig/Eve Start time Last Medication Dose Route Stop Time Status Admin Albuterol Sulfate 3 ML EVERY 4 HRS/AWAKE 04/11 08 AC 04/22 INH 1999 Budesonide/ 2 PUF BID 04/10 2210 AC 04/22 Formoterol Fumarate INH 2125 Cyanocobalamin 1,000 MCG DAILY 04/11 09 AC 04/22 PO 0904 Digoxin 0.125 MG Q48@1700 04/12 1700 AC 04/22 PO 1614 Diltiazem HCl 240 MG DAILY 04/11 09 04/22 PO 0904 Ferrous Sulfate 325 MG TID 04/11 09 04/22 PO 2125 Fluticasone 2 SPRAY DAILY 04/12 1437 04/22 Propionate CESAR 0905 Furosemide 80 MG 7:30 AM, & 4:30 PM 04/11 0730 04/22 PO 1535 Guaifenesin 600 MG Q12 04/13 1036 04/22 PO 2125 Guaifenesin/ 10 ML Q6P PRN 04/11 1415 04/19 Dextromethorphan PO 1149 Hydralazine HCl 10 MG BID 04/10 2211 04/22 PO 212 Insulin Aspart 0 TIDAC 04/17 1700 04/22 SC 1756 Insulin Aspart 0 AT BEDTIME 04/11 2100 04/21 SC 2128 Insulin Detemir 8 UNITS AT BEDTIME 04/11 2100 04/22 SC 212 Insulin Detemir 10 UNITS 04/11 09 04/22 SC 0904 Metoprolol Tartrate 25 MG BID 04/10 221 04/22 PO 2125 Morphine Sulfate 2.5 MG Q2P PRN 04/10 2215 AC 04/15 PO 0755 Omeprazole 40 MG DAILY AC 04/11 07 AC 04/22 PO 0607 Oxycodone/ 2 TAB Q4-6 PRN 04/10 2245 AC Acetaminophen PO Oxycodone/ 1 TAB Q4-6 PRN 04/10 2215 AC Acetaminophen PO Polyethylene Glycol 0.5 GAL ONCE ONE 04/23 700 DC 04/23 PO 04/23 07 0604 Polyethylene Glycol 0.5 GAL ONCE ONE 04/22 1700 DC 04/22 PO 04/22 1701 1614 Prednisone 10 MG DAILY 04/27 900 PO 04/29 09 Prednisone 20 MG DAILY 04/24 900 AC PO 04/26 09 Prednisone 30 MG DAILY 04/21 900 AC 04/22 PO 04/23 0901 0904 Sodium Chloride 2 SPRAY Q4P PRN 04/10 2215 04/13 CESAR 0718 Tiotropium [place] 1 PUF DAILY 04/11 900 04/22 INH 0905 Last 24 Hrs of Lab/Sridhar Results Last 24 Hrs of Labs/Mics: Laboratory Tests 04/23/18 0627: Sodium Pending, Potassium Pending, Chloride Pending, Carbon Dioxide Pending, Anion Gap Pending, BUN Pending, Creatinine Pending, BUN/Creatinine Ratio Pending , CBC w Diff Pending, WBC Pending, RBC Pending, Hgb Pending, Hct Pending, MCV Pending, MCH Pending, MCHC Pending, RDW Pending, Plt Count Pending, MPV Pending Lines/Diet/Fluids Restraints: none Assessment/Plan Assessment: is a 67-year-old male with past medical history of COPD on 4 L of oxygen and nocturnal BiPAP (followed by Dr. So), atrial fibrillation on the rivaroxaban (followed by Dr. Walton), diabetes mellitus, hypertension, hyperlipidemia, abdominal aortic aneurysm status post repair, heart failure with reduced EF (EF of 30-35%), GERD, prostate cancer and chronic kidney disease was brought in on the 10 april from [facility] after blood work showing anemia. Today is his day 10 of admission. PLAN: #1 Acute on chronic blood loss anemia requiring blood transfusion, guaiac positive stools. Mr. Vieira's baseline hemoglobin is 8.0, status post 3 units of packed cell transfusion. Most likely GI source with guaiac-positive stools. * Plan for nedoscopy/colonoscopt today, await procedure. * He continues to be off anticoagulation. * We will recheck lab tomorrow target hemoglobin about 8, if severe bleeding noticed please notify GI stat. #2 chronic respiratory failure : Continue TRC nebulizations, continue steroid taper, aggressive chest physical therapy with Mucomyst, continue oxygenation to maintain saturations above 92%. #3 MRSA tracheobronchitis: Sensitivity back, Finished course of IV vanco for abx. #4 diabetes mellitus :ct 8 units at bedtime, NovoLog sliding scale, consistent carbohydrate diet, last 3 fingersticks noted to be [phone], hyperglycemia secondary to steroid intake, consider adjustment of insulin while on steroids. #5 history of hypertension : ct hydralazine 10 mg twice a day, Lopressor 25 mg twice a day, Cardizem 40 mg daily. #6 epistaxis : Resolved, continue to hold anticoagulation, humidify oxygen. #7 leukocytosis : No evidence of infection, secondary to steroid administration, continue to follow. Problem List: 1. Symptomatic anemia Pain Ratin Pain Location: n/a Pain Goal: Remain pain free Pain Plan: n/a Tomorrow's Labs & Rationales: cbc bep Problem List: 1. Bronchitis 2. Symptomatic anemia 3. Chronic renal failure 4. Fecal occult blood test positive 5. Chronic anemia 6. Acute respiratory failure with hypoxia 7. [place] (acute kidney injury) Pain Ratin Pain Location: .. Pain Goal: Remain pain free Pain Plan: current Tomorrow's Labs & Rationales: h/h RadhaSangeeta villafana 04/23/18 1230: Attending MD Review Statement Attending Statement Attending MD Statement: examined this patient, discuss w/resident/PA/MAINSPRING STRIP INSPECTOR, agreed w/resident/PA/MAINS[employer]ING STRIP INSPECTOR, discussed with family, reviewed EMR data (avail), discussed with nursing, discussed with case mgmt, reviewed images, amended to note Attending Assessment/Plan: Patient seen and examined. He is a 67-year-old male with advanced lung disease, ckd, chronic hypoxemic respiratory failure and, A. fib on anticoagulation on hold right now secondary to GI bleed issue. Finished 5 days of antibiotics with IV vancomycin for MRSA tracheobronchitis with copious secretions and is on a prednisone taper per Dr. So now. He is on baseline oxygen, drinking golytely. Planned endoscopy and colonoscopy today and if that's okay restart anticoagulation. PT has been actively working with him with the goal to get him home after his procedure. Overall prognosis remains guarded. He remains high risk of readmision. gi/dvt prophylaxis, DNR but intubation as per family wishes in past.
[2018-04-23 08:07] LABS: ABSOLUTE BASOPHIL COUNT 0 /CUMM (0.0-0.2); ABSOLUTE EOSINOPHIL COUNT 0.1 /CUMM (0.0-0.7); ABSOLUTE GRANULOCYTE CT 8.8 /CUMM (1.4-6.5); ABSOLUTE MONOCYTE COUNT 0.7 /CUMM (0.10-0.60); BASOPHIL % 0 % (0.0-2.0); GRANULOCYTE % 82.9 % (42.2-75.2); HEMATOCRIT 28.5 % (42-52); MEAN CORPUSCULAR HGB 29.6 PG (27.0-31.0); MEAN CORPUSCULAR HGB CONC 32.8 G/DL (33.0-37.0); MEAN CORPUSCULAR VOLUME 90.3 FL (80.0-94.0); MEAN PLATELET VOLUME 8.8 FL (7.4-10.4); PLATELET COUNT 202 /CUMM (130-400); RBC DISTRIBUTION WIDTH 18.5 % (11.5-14.5); RED BLOOD CELL CT 3.16 /CUMM (4.70-6.10); WHITE BLOOD CELL COUNT 10.6 /CUMM (4.8-10.8)
--- NOTE | 2018-04-23 10:34 | PN- Pulmonary ---
Subjective HPI/Critical Care Issues: pt seen and examined no overnight events awaiting endoscopy completing bowel prep Review of Systems Review of Systems Constitutional: Denies: chills, fever. Cardiovascular: Reports: edema, peripheral edema. Denies: chest pain. Respiratory: Reports: cough, orthopnea, short of breath, sputum production. Denies: hemoptysis. GI: Denies: abdominal pain, nausea, vomiting. Genitourinary: Denies: dysuria. Objective Current Medications: Current Medications Sig/Eve Start time Last Medication Dose Route Stop Time Status Admin Albuterol Sulfate 3 ML EVERY 4 HRS/AWAKE 04/11 08 AC 04/23 INH 0744 Budesonide/ 2 PUF BID 04/10 2210 AC 04/23 Formoterol Fumarate INH 0823 Cyanocobalamin 1,000 MCG DAILY 04/11 09 AC 04/23 PO 0822 Digoxin 0.125 MG Q48@1700 04/12 1700 AC 04/22 PO 1614 Diltiazem HCl 240 MG DAILY 04/11 09 AC 04/23 PO 0822 Ferrous Sulfate 325 MG TID 04/11 09 04/23 PO 0822 Fluticasone 2 SPRAY DAILY 04/12 1437 AC 04/23 Propionate CESAR 0823 Furosemide 80 MG 7:30 AM, & 4:30 PM 04/11 0730 AC 04/23 PO 0822 Guaifenesin 600 MG Q12 04/13 1036 AC 04/23 PO 0824 Guaifenesin/ 10 ML Q6P PRN 04/11 1415 AC 04/19 Dextromethorphan PO 1149 Hydralazine HCl 10 MG BID 04/10 2211 AC 04/23 PO 0822 Insulin Aspart 0 TIDAC 04/17 1700 DC 04/22 LA 1756 Insulin Aspart 0 AT BEDTIME 04/11 2100 04/21 LA 2128 Insulin Detemir 8 UNITS AT BEDTIME 04/11 2100 04/22 LA 212 Insulin Detemir 10 UNITS 04/11 0900 04/22 LA 0904 Insulin Human Regular 0 Q6 04/23 0734 [facility] Metoprolol Tartrate 25 MG BID 04/10 2212 AC 04/23 PO 0822 Morphine Sulfate 2.5 MG Q2P PRN 04/10 221 AC 04/15 PO 0755 Omeprazole 40 MG DAILY AC 04/11 0700 AC 04/22 PO 0607 Oxycodone/ 2 TAB Q4-6 PRN 04/10 2245 AC Acetaminophen PO Oxycodone/ 1 TAB Q4-6 PRN 04/10 2215 AC Acetaminophen PO Polyethylene Glycol 0.5 GAL ONCE ONE 04/23 0700 DC 04/23 PO 04/23 0701 0604 Polyethylene Glycol 0.5 GAL ONCE ONE 04/22 1700 DC 04/22 PO 04/22 1701 1614 Prednisone 10 MG DAILY 04/27 09 AC PO 04/29 09 Prednisone 20 MG DAILY 04/24 09 AC PO 04/26 09 Prednisone 30 MG DAILY 04/21 09 DC 04/23 PO 04/23 0901 0822 Sodium Chloride 2 SPRAY Q4P PRN 04/10 221 AC 04/13 CESAR 0718 Tiotropium [place] 1 PUF DAILY 04/11 09 AC 04/23 INH 0822 Vital Signs & I&O Last 24 Hrs of Vitals and I&O: Vital Signs Date Time Temp Pulse Resp B/P B/P Pulse O2 O2 Flow FiO2 Mean Ox Delivery Rate 04/23 0822 80 110/70 04/23 0822 80 110/70 04/23 0800 Nasal 4.0L Cannula 04/23 0749 93 Nasal 4.0L Cannula 04/23 0746 80 93 04/23 0640 98.1 73 20 110/70 92 CPAP 04/22 2259 95 Nasal 4.0L Cannula 04/22 2220 98.2 94 18 116/64 95 Nasal Cannula 04/22 2215 Nasal 4.0L Cannula 04/22 2125 87 116/64 04/22 2125 87 116/64 04/22 1625 97 Nasal 4.0L Cannula 04/22 1614 85 112/82 0603 1532 85 112/82 04/22 1443 97.1 87 18 140/60 93 Intake & Output 04/23 1600 06/04 0800 04/23 0000 Intake Total 300 2160 Output Total 700 2000 Balance -400 160 Intake, Oral 300 2160 Number 2 3 Bowel Movements Output, Urine 700 2000 Patient 177 lb Weight Weight Bed scale Measurement Method Exam Respiratory: decreased breath sounds, crackles, rhonchi Cardiovascular: edema Abdomen: normal bowel sounds Neurologic/Psychiatric: awake, alert, oriented x 3, normal mood/affect Skin: intact Results Last 24 Hrs of Lab Results: Laboratory Tests 04/23/18 0627: Anion Gap 6, Estimated GFR 47 L, BUN/Creatinine Ratio 35.3 H, CBC w Diff NO MAN DIFF REQ, RBC 3.16 L, MCV 90.3, MCH 29.6, MCHC 32.8 L, RDW 18.5 H, MPV 8.8, Gran % 82.9 H, Lymphocytes % 9.4 L, Monocytes % 6.7, Eosinophils % 1.0, Basophils % 0, Absolute Granulocytes 8.8 H, Absolute Lymphocytes 1.0 L, Absolute Monocytes 0.7 H, Absolute Eosinophils 0.1, Absolute Basophils 0 Impression/Plan Impression/Plan Impression/Plan: Impression 67 year old man -awaiting endoscopy in a monitored setting -s/p vancomycin for MRSA tracehobronchitis -stable severe COPD/chronic hypoxemic respiratory failure Plan -plan for endoscopy today -continue IST, flutter device -trc/nebs -will need to resume a/c post procedure DVT prophylaxis at all times
[2018-04-23 16:00] VITALS: BP 124/68
--- NOTE | 2018-04-23 17:11 | Proc Note Endoscopy ---
Endoscopy Procedure Procedure Date: 04/23/18 Procedure Type: EGD w/biopsy (preceding colonoscopy) Insurance Sales Specialist: Nigel Walton M.D. ASA Classification: III Indications: Anemia, Hemoccult-positive stool Diarrhea Instrument: diagnostic gastroscope Meds Received: MIKIE Patient's Tolerance: good Complications: none Extent Reached: second part of duodenum Procedure: The patient signed informed consent for EGD and colonoscopy, and was medicated. Lidocaine pharyngeal spray was administered. Pulse oximetry, blood pressure and cardiac monitoring were performed continuously throughout the procedure. The Olympus high-definition gastroscope was inserted into the mouth and advanced to the duodenum. Retroflexion was performed within the stomach to examine the cardia. Careful examination was performed. Findings: The esophagus had normal caliber and contour. The mucosa was normal throughout. There was a distal single prominent bluish vessel which may have been a varix. The GE junction at 42 cm was normal. There was an intermittent small sliding hiatal hernia and GE junction ring. The stomach had normal distention and active peristalsis. The cardia was normal. The mucosa and folds the fundus and body were normal. There were enlarged prepyloric folds, and 2 biopsies were obtained. The pyloric channel was normal. The duodenal bulb was normal. The mucosa and folds of the duodenal sweep were normal, and 4 biopsies were obtained in this region. Impression: * Possible distal esophageal varix * Prepyloric enlarged folds * No gross enteropathy; biopsies obtained Recommendations: * Await pathology * Office follow-up to readdress symptoms * Immediately following this EGD the patient had a colonoscopy; see report CC: Ramses CR,Prabhakar Cherry; Anton CR,Landry Ford; Saray CR,Mark
--- NOTE | 2018-04-23 17:18 | Proc Note Colonoscopy ---
Colonoscopy Procedure Procedure Date: 04/23/18 Procedure Type: colonoscopy polyp/biopsy (following EGD) Warehouser: Nigel Walton M.D. ASA Classification: III Indications: Anemia, Hemoccult-positive stool Diarrhea Instrument (Colonoscope): single channel Meds Received: MAC Patient's Tolerance: good Complications: none Extent Reached: terminal ileum Prep: good Procedure: Following the initial EGD, the patient was placed in the Cole position, and medicated. Examination of the rectum revealed a patulous anal canal, with no appreciable resting tone. There were no lesions. The Olympus high-definition variable stiffness colonoscope was inserted through the anus and advanced to the terminal ileum. Retroflexion was performed in order to examine the ascending colon. Retroflexion was not performed in the rectum. Careful examination was performed. There was adequate withdrawal time. Findings: The rectum was normal. The dentate line was seen. There was diverticulosis of the sigmoid and descending colon. Multiple polyps were identified and resected, as described below. Otherwise, the mucosa, folds and vasculature from sigmoid to cecum were normal without gross colitis. Biopsies were obtained from left colon and right colon. The terminal ileum was normal, and biopsies were obtained here as well. 7 polyps were identified and resected: * 25 cm, subcentimeter pedunculated, electrocautery snare and 25 W coagulation current * 30 cm, subcentimeter pedunculated, electrocautery snare * Transverse colon, subcentimeter pedunculated, electrocautery snare * Hepatic flexure, diminutive, cold biopsy forceps * Hepatic flexure, subcentimeter, cold snare * Transverse colon, subcentimeter, electrocautery snare * Ascending colon, subcentimeter pedunculated, electrocautery snare Impression: * Polyps * Diverticulosis * Gross colitis/ileitis; biopsies obtained Recommendations: * Await pathology * Adequate fiber intake * Regular diet * Resumption of anticoagulation as per admitting team, cardiology * Outpatient visit to readdress symptoms Followup Colonscopy Screen In: pending biopsy result(s) CC: Ramses CR,Prabhakar Cherry; Anton CR,Landry Ford; Saray CR,Mark
[2018-04-23 22:20] VITALS: BP 112/50
[2018-04-24 06:48] VITALS: BP 112/60
--- NOTE | 2018-04-24 07:18 | PN- Housestaff ---
Patsy Leonard 04/24/18 0718: Subjective Follow-up For: Acute on chornic Blood Loss Anemia s/ endoscopy/colonoscopy COPD exacerbation Chronic respiratory Failure on 4 litres of home oxygen MRSA tracheobronchitis Diabetes Mellitus Hypertension Epistaxis Complaints: no complaints Tele-Events Since Last Visit: NELI Subjective: Examind patient at bedside. no new complaints. Stable for d/c today for home with Home PT Review of Systems Constitutional: Reports: see HPI. Objective Last 24 Hrs of Vital Signs/I&O Vital Signs Date Time Temp Pulse Resp B/P B/P Pulse O2 O2 Flow FiO2 Mean Ox Delivery Rate 04/24 0818 95 Nasal 4.0L Cannula / 0805 97.6 83 20 112/60 / 0804 97.6 83 20 112/60 / 0800 93 Nasal 4.0L Cannula / 0648 97.6 83 20 112/60 90 Nasal Cannula 06/04 2236 98 06/04 2223 Nasal 4.0L Cannula /04 2220 98.7 102 22 112/50 92 Nasal 4.0L Cannula /04 2134 82 112/50 06/04 2134 82 112/50 06/04 1615 98 Nasal 6.0L Cannula /04 1600 97.8 84 18 124/68 100 Nasal 6.0L Cannula Intake & Output / 1600 /05 0800 04/24 0000 Intake Total 240 660 Output Total 250 450 Balance -10 210 Intake, Oral 240 660 Number 1 Bowel Movements Output, Urine 250 450 Patient 79.549 kg Weight Weight Bed scale Measurement Method Physical Exam General Appearance: Alert, Oriented X3, Cooperative, No Acute Distress Cardiovascular: Normal S1, Normal S2, No Murmurs Lungs: Clear to Auscultation, Normal Air Movement Abdomen: Normal Bowel Sounds, Soft, No Tenderness Extremities: No Cyanosis, No Edema, Normal Pulses Vascular: Normal Pulses Current Medications: Current Medications Sig/Eve Start time Last Medication Dose Route Stop Time Status Admin Albuterol Sulfate 3 ML EVERY 4 HRS/AWAKE 04/11 0800 AC 04/24 INH 1127 Budesonide/ 2 PUF BID 04/24 2100 AC Formoterol Fumarate INH Budesonide/ 2 PUF BID 04/10 2210 DC 04/24 Formoterol Fumarate INH 0807 Cyanocobalamin 1,000 MCG DAILY 04/11 0900 AC 06/ PO 0804 Digoxin 0.125 MG Q48@1700 04/12 1700 04/22 PO 1614 Diltiazem HCl 240 MG DAILY 04/11 0900 04/24 PO 0805 Ferrous Sulfate 325 MG TID 04/11 0900 04/24 PO 0804 Fluticasone 2 SPRAY DAILY 04/12 1437 04/24 Propionate CESAR 0804 Furosemide 80 MG 7:30 AM, & 4:30 PM 04/11 0730 04/24 PO 0805 Guaifenesin 600 MG Q12 04/13 1036 04/24 PO 0804 Guaifenesin/ 10 ML Q6P PRN 04/11 1415 04/19 Dextromethorphan PO 1149 Hydralazine HCl 10 MG BID 04/10 221 04/24 PO 0805 Insulin Aspart 0 TIDAC 04/23 1700 04/23 MN 1702 Insulin Aspart 0 AT BEDTIME 04/11 2100 04/23 SC 2133 Insulin Detemir 8 UNITS AT BEDTIME 04/11 2100 04/23 SC 2133 Insulin Detemir 10 UNITS 0900 04/11 0900 04/24 SC 0802 Insulin Human Regular 0 Q6 04/23 0734 [place] 04/23 MN 1120 Metoprolol Tartrate 25 MG BID 04/10 2212 04/24 PO 0804 Morphine Sulfate 2.5 MG Q2P PRN 04/10 221 04/15 PO 0755 Omeprazole 40 MG DAILY 04/11 0700 04/24 PO 0554 Oxycodone/ 2 TAB Q4-6 PRN 04/10 224 Acetaminophen PO Oxycodone/ 1 TAB Q4-6 PRN 04/10 221 Acetaminophen PO Potassium Chloride 80 MEQ 11:00 AM 04/24 1100 CAN PO Potassium Chloride 40 MEQ Q1H 04/24 1100 DC PO 04/24 1201 Potassium Chloride 40 MEQ Q1H 04/24 0900 CAN PO 04/24 1101 Potassium Chloride 60 MEQ ONCE ONE 04/24 0845 DC 04/24 PO 04/24 0846 0847 Prednisone 10 MG DAILY 04/27 900 AC PO 04/29 0901 Prednisone 20 MG DAILY 04/24 0900 AC 04/24 PO 04/26 0901 0804 Sodium Chloride 2 SPRAY Q4P PRN 04/10 2215 AC 04/13 CESAR 0718 Tiotropium [place] 1 PUF DAILY 04/11 0900 AC 04/24 INH 0804 Last 24 Hrs of Lab/Sridhar Results Last 24 Hrs of Labs/Mics: Laboratory Tests 04/24/18 1317: Sodium Pending, Potassium Pending, Chloride Pending, Carbon Dioxide Pending, Anion Gap Pending, BUN Pending, Creatinine Pending, BUN/Creatinine Ratio Pending 04/24/18 0610: Anion Gap 11, Estimated GFR 38 L, BUN/Creatinine Ratio 27.2 H, CBC w Diff NO MAN DIFF REQ, RBC 2.79 L, MCV 89.0, MCH 29.6, MCHC 33.3, RDW 19.0 H, MPV 8.8, Gran % 79.9 H, Lymphocytes % 11.1 L, Monocytes % 8.3, Eosinophils % 0.4, Basophils % 0.3, Absolute Granulocytes 7.4 H, Absolute Lymphocytes 1.0 L, Absolute Monocytes 0.8 H, Absolute Eosinophils 0, Absolute Basophils 0 Lines/Diet/Fluids Restraints: none Assessment/Plan Assessment: is a 67-year-old male with past medical history of COPD on 4 L of oxygen and nocturnal BiPAP (followed by Dr. So), atrial fibrillation on the rivaroxaban (followed by Dr. Walton), diabetes mellitus, hypertension, hyperlipidemia, abdominal aortic aneurysm status post repair, heart failure with reduced EF (EF of 30-35%), GERD, prostate cancer and chronic kidney disease was brought in on the 10 april from [facility] after blood work showing anemia. Today is his day 10 of admission. PLAN: #1 Acute on chronic blood loss anemia requiring blood transfusion, guaiac positive stools. Mr. Vieira's baseline hemoglobin is 8.0, status post 3 units of packed cell transfusion. Most likely GI source with guaiac-positive stools. * s/p endoscopy/colonoscopy yday - findings as below * Endoscopy : Possible distal esophageal varix,Prepyloric enlarged folds,No gross enteropathy; biopsies obtained * Colonoscopy :Polyps,Diverticulosis,Gross colitis/ileitis; biopsies obtained * His AC was restarted after the procedure today. #2 Chronic respiratory failure :Stabilized with TRC nebulizations, steroid taper, aggressive chest physical therapy with Mucomyst, continue oxygenation to maintain saturations above 92%. #3 MRSA tracheobronchitis: Resovled and compelted 5 day course of IV vanco for abx. #4 Diabetes mellitus :last 3 FS 93,206,117 ct 8 units at bedtime, NovoLog sliding scale, consistent carbohydrate diet, hyperglycemia secondary to steroid intake,will go home on current regimen. #5 History of hypertension : we will hold HCTZ and will not discharge him on HCTZ, will ct Lopressor 25 mg twice a day, Cardizem 40 mg daily. #6 Epistaxis : Resolved, continue to hold anticoagulation, humidify oxygen. #7 Leukocytosis : No evidence of infection, secondary to steroid administration, continue to follow. #8 Chronic Kidney disease stage 3 stable Problem List: 1. Bronchitis 2. Symptomatic anemia 3. Chronic renal failure Pain Ratin Pain Location: .. Pain Goal: Remain pain free (..) Pain Plan: .. Tomorrow's Labs & Rationales: .. Discharge Plan Discharge Disposition: home Stable for Discharge? Yes Anticipated Discharge (Day): today If Discharged Today/In 24 Hrs: W-10/discharge paper done, CMR done Sangeeta Garcia 04/24/18 1034: Attending MD Review Statement Attending Statement Attending MD Statement: examined this patient, discuss w/resident/PA/PHARMACY COORDINATOR, agreed w/resident/PA/PHARMACY COORDINATOR, discussed with family, reviewed EMR data (avail), discussed with nursing, discussed with case mgmt, reviewed images, amended to note Attending Assessment/Plan: Patient had EGD and colonsocpy suggestive of multiple polyps that were resected. Resume anticoagulation. No active bleeding reported. Continue with prednisone taper as per pulmonary. Plan is to discharge home with PT. SARTHAK Cardiology Gastroenterology Pulmoanry FOLLOW UP Pulmonary in 2 weeks of discharge Gastroenterology Dr Walton in 2 weeks for pathology Cardiology in 3-4 weeks.
[2018-04-24 08:03] LABS: ABSOLUTE BASOPHIL COUNT 0 /CUMM (0.0-0.2); ABSOLUTE EOSINOPHIL COUNT 0 /CUMM (0.0-0.7); ABSOLUTE GRANULOCYTE CT 7.4 /CUMM (1.4-6.5); ABSOLUTE MONOCYTE COUNT 0.8 /CUMM (0.10-0.60); BASOPHIL % 0.3 % (0.0-2.0); EOSINOPHIL % 0.4 % (0-5); GRANULOCYTE % 79.9 % (42.2-75.2); HEMATOCRIT 24.9 % (42-52); MEAN CORPUSCULAR HGB 29.6 PG (27.0-31.0); MEAN CORPUSCULAR HGB CONC 33.3 G/DL (33.0-37.0); MEAN PLATELET VOLUME 8.8 FL (7.4-10.4); PLATELET COUNT 176 /CUMM (130-400); RED BLOOD CELL CT 2.79 /CUMM (4.70-6.10); WHITE BLOOD CELL COUNT 9.2 /CUMM (4.8-10.8)
[2018-04-24] MEDS ORDERED: PREDNISONE10 M2 PO (09:27)
[2018-04-24] MEDS ORDERED: LANOXIN125 MCG PO (09:30)
--- NOTE | 2018-04-24 11:17 | PN- Pulmonary ---
Subjective HPI/Critical Care Issues: pt seen and examined feeling at respiratory baseline s/p egd and colonoscopy Constitutional: Denies: chills, fever. Cardiovascular: Reports: edema, peripheral edema. Denies: chest pain. Respiratory: Reports: cough, orthopnea, short of breath, sputum production. Denies: hemoptysis. GI: Denies: abdominal pain, nausea, vomiting. Genitourinary: Denies: dysuria. Objective Current Medications: Current Medications Sig/Eve Start time Last Medication Dose Route Stop Time Status Admin Albuterol Sulfate 3 ML EVERY 4 HRS/AWAKE 04/11 08 AC 04/24 INH 0817 Budesonide/ 2 PUF BID 04/24 2100 AC Formoterol Fumarate INH Budesonide/ 2 PUF BID 04/10 2210 DC 04/24 Formoterol Fumarate INH 0807 Cyanocobalamin 1,000 MCG DAILY 04/11 0900 04/24 PO 0804 Digoxin 0.125 MG Q48@1700 04/12 1700 04/22 PO 1614 Diltiazem HCl 240 MG DAILY 04/11 09 04/24 PO 0805 Ferrous Sulfate 325 MG TID 04/11 0900 AC 04/24 PO 0804 Fluticasone 2 SPRAY DAILY 04/12 1437 04/24 Propionate CESAR 0804 Furosemide 80 MG 7:30 AM, & 4:30 PM 04/11 0730 04/24 PO 0805 Guaifenesin 600 MG Q12 04/13 1036 04/24 PO 0804 Guaifenesin/ 10 ML Q6P PRN 04/11 1415 AC 04/19 Dextromethorphan PO 1149 Hydralazine HCl 10 MG BID 04/10 221 04/24 PO 0805 Insulin Aspart 0 TIDAC 04/23 1700 AC 04/23 ME 1702 Insulin Aspart 0 AT BEDTIME 04/11 2100 04/23 ME 213 Insulin Detemir 8 UNITS AT BEDTIME 04/11 2100 AC 04/23 ME 213 Insulin Detemir 10 UNITS 0900 04/11 0900 04/24 SC 0802 Insulin Human Regular 0 Q6 04/23 0734 DC 04/23 SC 1120 Metoprolol Tartrate 25 MG BID 04/10 2212 04/24 PO 0804 Morphine Sulfate 2.5 MG Q2P PRN 04/10 221 AC 04/15 PO 0755 Omeprazole 40 MG DAILY AC 04/11 07 AC 04/24 PO 0554 Oxycodone/ 2 TAB Q4-6 PRN 04/10 2245 AC Acetaminophen PO Oxycodone/ 1 TAB Q4-6 PRN 04/10 2215 AC Acetaminophen PO Potassium Chloride 80 MEQ 11:00 AM 04/24 1100 CAN PO Potassium Chloride 40 MEQ Q1H 04/24 1100 AC PO 04/24 1201 Potassium Chloride 40 MEQ Q1H 04/24 0900 CAN PO 04/24 1101 Potassium Chloride 60 MEQ ONCE ONE 04/24 0845 DC 04/24 PO 04/24 0846 0847 Prednisone 10 MG DAILY 04/27 900 AC PO 04/29 09 Prednisone 20 MG DAILY 04/24 09 AC 04/24 PO 04/26 0901 0804 Sodium Chloride 2 SPRAY Q4P PRN 04/10 2215 AC 04/13 CESAR 0718 Tiotropium [place] 1 PUF DAILY 04/11 09 AC 04/24 INH 0804 Vital Signs & I&O Last 24 Hrs of Vitals and I&O: Vital Signs Date Time Temp Pulse Resp B/P B/P Pulse O2 O2 Flow FiO2 Mean Ox Delivery Rate 04/24 0818 95 Nasal 4.0L Cannula 04/24 0805 97.6 83 20 112/60 /05 0804 97.6 83 20 112/60 04/24 0648 97.6 83 20 112/60 90 Nasal Cannula 04/23 2236 98 04/23 2223 Nasal 4.0L Cannula 04/23 2220 98.7 102 22 112/50 92 Nasal 4.0L Cannula 04/23 2134 82 112/50 04/23 2134 82 112/50 04/23 1615 98 Nasal 6.0L Cannula 04/23 1600 97.8 84 18 124/68 100 Nasal 6.0L Cannula Intake & Output 04/24 1600 05 0800 04/24 0000 Intake Total 240 660 Output Total 250 450 Balance -10 210 Intake, Oral 240 660 Number 1 Bowel Movements Output, Urine 250 450 Patient 175 lb Weight Weight Bed scale Measurement Method Exam Other Physical Findings: Respiratory: decreased breath sounds, crackles, rhonchi Cardiovascular: edema Abdomen: normal bowel sounds Neurologic/Psychiatric: awake, alert, oriented x 3, normal mood/affect Skin: intact Results Last 24 Hrs of Lab Results: Laboratory Tests 04/24/18 0610: Anion Gap 11, Estimated GFR 38 L, BUN/Creatinine Ratio 27.2 H, CBC w Diff NO MAN DIFF REQ, RBC 2.79 L, MCV 89.0, MCH 29.6, MCHC 33.3, RDW 19.0 H, MPV 8.8, Gran % 79.9 H, Lymphocytes % 11.1 L, Monocytes % 8.3, Eosinophils % 0.4, Basophils % 0.3, Absolute Granulocytes 7.4 H, Absolute Lymphocytes 1.0 L, Absolute Monocytes 0.8 H, Absolute Eosinophils 0, Absolute Basophils 0 Impression/Plan Impression/Plan Impression/Plan: Impression 67 year old man -s/p vancomycin for MRSA tracehobronchitis -stable severe COPD/chronic hypoxemic respiratory failure Plan -continue IST, flutter device -trc/nebs -discharge planning -call with any questions -office follow up DVT prophylaxis at all times
[2018-04-24 14:04] VITALS: BP 120/62
[2018-04-24 16:19] VITALS: BP 120/62
== END 2018-04-24 17:05 | disposition home health service (06) | DRG 811 ==
LOC: ERH 15:47 → ERHI 18:40 → 1NO 18:40 → ENRESERV 19:15 → ENTRNSPT 20:23 → EDTRNSPTSTS 20:33 → 1NO 20:40 → EDTRNSPT 20:51 → CMPTRNSPT 20:51 → 1NO 04-11 16:40 → ENPENDDIS 04-24 13:08 → ENTRNSPT 04-24 16:52 → EDTRNSPT 04-24 16:58 → EDTRNSPTSTS 04-24 16:58 → 1NO 04-24 17:05 → CMPTRNSPT 04-24 17:13
PROVIDERS: Internal Medicine; Physician Assistant; Student in an Organized Health Care Education/Training Program
PROC: 5A09457 Assistance with Respiratory Ventilation, 24-96 Consecutive Hours, Continuous Positive Airway Pressure (ICD-10-PCS; 2018-04-11)
PROC: 30233N1 Transfusion of Nonautologous Red Blood Cells into Peripheral Vein, Percutaneous Approach (ICD-10-PCS; principal; 2018-04-12)
PROC: 0DBL8ZX Excision of Transverse Colon, Via Natural or Artificial Opening Endoscopic, Diagnostic (ICD-10-PCS; 2018-04-23)
PROC: 0DBB8ZX Excision of Ileum, Via Natural or Artificial Opening Endoscopic, Diagnostic (ICD-10-PCS; 2018-04-23)
PROC: 0DBK8ZX Excision of Ascending Colon, Via Natural or Artificial Opening Endoscopic, Diagnostic (ICD-10-PCS; 2018-04-23)
PROC: 0DB98ZX Excision of Duodenum, Via Natural or Artificial Opening Endoscopic, Diagnostic (ICD-10-PCS; 2018-04-23)
DX: D62 Acute posthemorrhagic anemia (principal); J96.21 Acute and chronic respiratory failure with hypoxia; J44.1 Chronic obstructive pulmonary disease with (acute) exacerbation; I50.22 Chronic systolic (congestive) heart failure; I13.0 Hypertensive heart and chronic kidney disease with heart failure and stage 1 through stage 4 chronic kidney disease, or unspecified chronic kidney disease; N17.9 Acute kidney failure, unspecified; J44.0 Chronic obstructive pulmonary disease with (acute) lower respiratory infection; H26.9 Unspecified cataract; J20.9 Acute bronchitis, unspecified; I48.91 Unspecified atrial fibrillation; J44.9 Chronic obstructive pulmonary disease, unspecified; D64.9 Anemia, unspecified; Z79.01 Long term (current) use of anticoagulants; F17.210 Nicotine dependence, cigarettes, uncomplicated; Z99.81 Dependence on supplemental oxygen; B95.62 Methicillin resistant Staphylococcus aureus infection as the cause of diseases classified elsewhere; K21.9 Gastro-esophageal reflux disease without esophagitis; E78.5 Hyperlipidemia, unspecified; E11.22 Type 2 diabetes mellitus with diabetic chronic kidney disease; N18.9 Chronic kidney disease, unspecified; Z79.4 Long term (current) use of insulin; Z79.51 Long term (current) use of inhaled steroids; Z79.52 Long term (current) use of systemic steroids; I71.4 Abdominal aortic aneurysm, without rupture; Z85.46 Personal history of malignant neoplasm of prostate; Z66 Do not resuscitate; R04.0 Epistaxis
CPT/HCPCS: 1NP; 87184; 36415; 36592; 70220; 71045; 71046; 82436; 83010; 86902; 86920; 86922; 87070; 87147; 87804; 87804-59; 93005; 93010; 96374; 97110-GO; 97116-GO; 97161-GP; 97530-GO; J1815; J1940; J2920; J3370; J3490; J7040; J7512; J7608; P9016

== ENCOUNTER 2018-06-17 10:46 | Inpatient (IN) | payer OTHER ==
[~2018-06-17] VITALS: Ht 180.3 cm; Wt 73.9 kg
--- NOTE | 2018-06-17 11:13 | ED GENERAL ADULT ---
History of Present Illness General Chief Complaint: Dyspnea (COPD, CHF, Other) Stated Complaint: SOB, DIANB IN PROGRESS Source: patient, family Exam Limitations: no limitations Vital Signs & Intake/Output Vital Signs & Intake/Output Vital Signs Date Time Temp Pulse Resp B/P B/P Pulse O2 O2 Flow FiO2 Mean Ox Delivery Rate 06/27 0000 BIPAP 5.0L 06/26 2220 98.7 95 20 106/64 92 BIPAP 06/26 2140 95 106/64 06/26 1712 100 97 06/26 1615 101 95 06/26 1615 95 BIPAP 35% 06/26 1359 98.4 95 20 121/70 98 BIPAP 06/26 0912 90 124/70 06/26 0800 Nasal 4.0L Cannula 06/26 0620 98.4 90 18 124/70 98 BIPAP ED Intake and Output 06/27 0000 06/26 1200 Intake Total 600 120 Output Total 1100 650 Balance -500 -530 Intake, Oral 600 120 Number 0 1 Bowel Movements Output, Urine 1100 650 Patient 165 lb Weight Weight Bed scale Measurement Method Allergies Coded Allergies: No Known Allergies (04/10/18) Reconcile Medications Acetazolamide 500 MG CAPSULE.ER 1 CAP PO BID UNKNOWN (Reported) Albuterol Sulfate (Proair Hfa) 90 MCG HFA.AER.AD 1 PUF INH Q4H PRN SHORTNESS OF BREATH (Reported) Albuterol Sulfate 2.5 MG/3 ML (0.083 %) VIAL.NEB 1 Vial INH/ABILIO Q6H PRN SHORTNESS OF BREATH (Reported) Aspirin (Ecotrin*) 81 MG TABLET. 1 TAB PO DAILY HEART/BLOOD (Reported) Atorvastatin Calcium 10 MG TABLET 1 TAB PO DAILY CHOLESTEROL (Reported) Budesonide/Formoterol Fumarate (Symbicort 160-4.5 Mcg Inhaler) 160 MCG-4.5 MCG/ ACTUATION HFA.AER.AD 2 PUF INH BID SHORTNESS OF BREATH (Reported) Cyanocobalamin (Vitamin B-12) (B-12) 1,000 MCG TABLET 1 TAB PO DAILY VITAMIN SUPPORT (Reported) Digoxin (Lanoxin) 125 MCG TABLET 1 TAB PO Q48@1700 AFIB Diltiazem HCl (Cardizem Cd) 240 MG CAP.ER.24H 240 MG PO DAILY ATRIAL FIB Ferrous Sulfate 325 MG TABLET. 325 MG PO BID Iron supplement Furosemide (Lasix) 40 MG TABLET 1 TAB PO BID DIURETIC (Reported) Insulin Aspart (Novolog) (Unknown Strength) VIAL (Unknown Dose) SC SEE SLIDING SCALE DIABETES (Reported) Insulin Detemir (Levemir) 100 UNIT/ML VIAL 10 UNITS SC 0900 DM Insulin Detemir (Levemir) 100 UNIT/ML VIAL 8 UNITS SC AT BEDTIME DM Loperamide HCl (Loperamide) 2 MG CAPSULE 2 CAP PO BID PRN ANTI-DIARRHEAL ( Reported) Metformin HCl 1,000 MG TABLET 1 TAB PO QAM DM (Reported) Metolazone 2.5 MG TABLET 1 TAB PO TID DIURETIC (Reported) Metoprolol Tartrate 25 MG TABLET 1 TAB PO BID AFIB Mometasone Furoate (Nasonex) 50 MCG SPRAY.PUMP 1 SPRAY NASB DAILY ALLERGIES ( Reported) Pantoprazole Sodium (Protonix) 40 MG TABLET.DR 1 TAB PO DAILY ACID REFLUX ( Reported) Potassium Chloride 20 MEQ TAB.ER.PRT 1 TAB PO DAILY SUPPLEMENT (Reported) Prednisone 10 MG TABLET 1 TAB PO DAILY COPD (Reported) Prednisone 10 MG TABLET 1 TAB PO BID RA As below Take 04/24-04/25 20 MG 04/26 onwards 10 MG daily. Rivaroxaban (Xarelto) 20 MG TABLET 1 TAB PO DAILY BLOOD THINNER (Reported) with food Tiotropium [place] (Spiriva) 18 MCG CAP.W.DEV 1 CAP INH DAILY SHORTNESS OF BREATH (Reported) Triage Note: 68M BIBA FOR SOB/DENNISON X3 DAYS AND WORSENING. O2 SAT 92% ON BASELINE 4L. 98% AFTER DUONEB. + USE OF ACCESSORY MUSCLES WITH NOTABLE WHEEZING AND ADVENTITIOUS SOUNDS TO ALL LOBES. PT W HX COPD. NORMOTENSIVE, BUT ABNORMAL APICAL RHYTHM. DENIES CP/PALPITATIONS Triage Nurses Notes Reviewed? yes HPI: 68-year-old male with a history of chronic lung disease comes in with cough, phlegm and shortness of breath for the past few days. Reports history of pneumonia, thinks he has pneumonia again. Reports chills denies fevers. He denies hemoptysis. Reports some phlegm. Past History Travel History Traveled to [place] past 21 day No Medical History Any Pertinent Medical History? 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 FATHER, ; Cause: Myocardial infarct. SISTER, ; Cause: Myocardial infarct. Hx Contributory? Yes Review of Systems Review of Systems Constitutional: Reports: chills. Denies: diaphoresis, fever. EENTM: Denies: blurred vision, double vision, visual changes, eye pain. Respiratory: Reports: cough, short of breath, sputum production. Denies: hemoptysis, orthopnea, stridor. Cardiovascular: Denies: chest pain, edema, orthopena. GI: Denies: abdominal pain, bloating, constipation. Genitourinary: Denies: discharge. Musculoskeletal: Denies: back pain, gout, joint pain. Skin: Denies: cysts, change in skin color, change in hair/nails. Neurological/Psychological: Denies: anxiety, ataxia, cognitive dysfunction. Physical Exam Physical Exam General Appearance: well developed/nourished, no apparent distress, alert, awake Head: atraumatic, normal appearance Eyes: Bilateral: PERRL, EOMI. Ears, Nose, Throat: normal pharynx, normal ENT inspection Neck: normal inspection, supple Respiratory: see below Cardiovascular: regular rate/rhythm, edema Gastrointestinal: normal bowel sounds, soft, non-tender Rectal: brown stool GUIAC positive Extremities: normal inspection, normal capillary refill, normal range of motion Neurologic/Psych: no motor/sensory deficits, awake, alert, oriented x 3 Skin: intact, normal color Comments: Examination of the chest reveals crackles throughout. No wheezing. No increased work of breathing. Core Measures ACS in differential dx? No CVA/TIA Diagnosis: No Sepsis Present: No Sepsis Focused Exam Completed? No Progress Differential Diagnoses 68-year-old male presents with history of lung disease and pneumonia. Presents with symptoms concerning for pneumonia. No distress. Nontoxic. We will get labs and x-ray for evaluation. Labs show decreasing HB, patient is anticogulated. he is also GUIAC positive. But the vitals are stable so no transfusin at this time and no reversal. Further evaluation and GI evalaution after admission. Plan of Care: Orders Procedure Date/time Status BASIC ELECTROLYTES PLUS BUN&CR 06/27 600 Active Nursing Misc 06/27 0035 Active BIPAP 06/26 1715 Complete Therapeutic Exercise 06/26 UNK Complete Gait Training 06/26 UNK Complete CHEST PHYSICAL THERAPY CHG 06/25 UNK Complete AEROSOL CHG 06/25 UNK Complete OXYGEN 06/25 UNK Complete OXYGEN DAILY CHARGE 06/25 UNK Complete CONTIN. POS. AIRWAY PRESS. CHG 06/25 UNK Complete Current Medications Sig/Eve Start time Last Medication Dose Stop Time Status Admin Polyethylene Glycol 17 GM DAILY 06/26 09 AC 06/26 (Miralax) 1302 Senna/Docusate Sodium 1 TAB BID 06/26 921 AC 06/26 (Senokot S) 2139 Furosemide 40 MG 7:30 AM, & 4:30 PM 06/26 0830 AC 06/26 (Lasix) 1636 Acetaminophen 500 MG Q6P PRN 06/24 1145 AC (Tylenol) Ondansetron HCl 4 MG ONCE PRN 06/22 09 AC (Zofran) Prednisone 10 MG DAILY 06/22 0900 AC 06/26 06/27 0859 0911 Cephalexin 500 MG BID 06/20 2100 AC 06/26 (Keflex 500MG Cap) 2139 Sodium Chloride 2 SPRAY Q4P PRN 06/19 1215 AC 06/19 (Nasal) 1718 Aspirin Buffered 81 MG DAILY 06/18 0900 AC 06/26 (Ecotrin) 0912 Atorvastatin Calcium 10 MG DAILY 06/18 0900 AC 06/26 (Lipitor) 0911 Cyanocobalamin 1,000 MCG DAILY 06/18 0900 AC 06/26 (Vitamin B12) 0911 Diltiazem HCl 240 MG DAILY 06/18 0900 AC 06/26 (Cardizem CD) 0911 Insulin Detemir 10 UNITS 06/18 0900 AC 06/26 (Levemir) 0912 Potassium Chloride 20 MEQ DAILY 06/18 0900 AC 06/26 (K-Dur) 0912 Tiotropium [place] 1 PUF DAILY 06/18 0900 AC 06/26 (Spiriva) 09 Albuterol Sulfate 3 ML EVERY 4 HRS/AWAKE 06/18 08 AC 06/26 (Proventil) 2038 Budesonide/ 2 PUF BID 06/17 2100 AC 06/26 Formoterol Fumarate 2140 (Symbicort) Ferrous Sulfate 325 MG TID 06/17 2100 AC 06/26 (Feosol) 2138 Insulin Detemir 8 UNITS AT BEDTIME 06/17 2100 AC 06/26 (Levemir) 2138 Metoprolol Tartrate 25 MG BID 06/17 2100 AC 06/26 (Lopressor) 2139 Rivaroxaban 15 MG AT BEDTIME 06/17 2100 AC 06/26 (Xarelto) 2138 Insulin Aspart 0 TIDAC 06/17 1700 AC 06/26 (NovoLOG) 1301 Omeprazole 40 MG 1/2H B/BREAKF/DINNER 06/17 1630 AC 06/26 (Prilosec) 1636 Acetaminophen 650 MG Q6-PRN PRN 06/17 1615 AC (Tylenol) Albuterol Sulfate 1 PUF Q4H PRN 06/17 1615 AC (Ventolin) Albuterol Sulfate 3 ML Q6H PRN 06/17 1615 AC 06/22 (Proventil) 0046 Loperamide HCl 4 MG BID PRN 06/17 1615 AC (Imodium) Guaifenesin 10 ML Q4P PRN 06/17 1600 AC 06/23 (Robitussin) 1654 Laboratory Tests 06/26/18 0715: Anion Gap 6, Estimated GFR 40 L, BUN/Creatinine Ratio 33.5 H, CBC w Diff NO MAN DIFF REQ, RBC 2.59 L, MCV 89.6, MCH 29.2, MCHC 32.6 L, RDW 18.1 H, MPV 8.9, Gran % 89.6 H, Lymphocytes % 5.4 L, Monocytes % 4.7, Eosinophils % 0.2, Basophils % 0.1, Absolute Granulocytes 7.9 H, Absolute Lymphocytes 0.5 L, Absolute Monocytes 0.4, Absolute Eosinophils 0, Absolute Basophils 0 Initial ED EKG: see below Comments: EKG atrial fibrillation with a rate of 91. Left axis deviation. No acute ST-T changes. Compared to the EKG from April 10, 2018: No significant change. Departure Departure Time of Disposition: 1309 Disposition: STILL A PATIENT Condition: Stable Clinical Impression Primary Impression: CAP (community acquired pneumonia) due to MRSA (methicillin resistant Staphylococcus aureus) Secondary Impressions: GI bleed Referrals: Ramses CR,Prabhakar Cherry (PCP/Family) Departure Forms: Customer Survey General Discharge Information Critical Care Note Critical Care Note Critical Care Time: 30-74 min
[2018-06-17 11:50] LABS: ABSOLUTE BASOPHIL COUNT 0 /CUMM (0.0-0.2); ABSOLUTE EOSINOPHIL COUNT 0 /CUMM (0.0-0.7); ABSOLUTE LYMPH COUNT 0.3 /CUMM (1.2-3.4); BASOPHIL % 0 % (0.0-2.0)
[2018-06-17 11:57] LABS: ABSOLUTE MONOCYTE COUNT 0.1 /CUMM (0.10-0.60); EOSINOPHIL % 0.1 % (0-5); HEMATOCRIT 23.2 % (42-52); MEAN CORPUSCULAR HGB 28.5 PG (27.0-31.0); MEAN CORPUSCULAR HGB CONC 31.8 G/DL (33.0-37.0); MEAN CORPUSCULAR VOLUME 89.8 FL (80.0-94.0); PLATELET COUNT 170 /CUMM (130-400); RBC DISTRIBUTION WIDTH 18.2 % (11.5-14.5); RED BLOOD CELL CT 2.58 /CUMM (4.70-6.10); WHITE BLOOD CELL COUNT 9.5 /CUMM (4.8-10.8)
--- NOTE | 2018-06-17 12:00 | RADIOLOGY REPORT ---
EXAMINATION:\H\ \N\XR CHEST CLINICAL INFORMATION: Cough. COMPARISON: Chest 04/19/2018 TECHNIQUE: Frontal view of the chest was obtained. FINDINGS: The lungs are well-expanded with prominent interstitial markings in both lung bases slightly greater in the right likely interstitial pneumonitis. It appears slightly worse in 04/19/2018. The upper lungs are relatively clear. The heart size enlarged. Pulmonary vascularity is prominent without congestion. No gross bony abnormality seen. IMPRESSION: Increased interstitial markings in both lung bases slightly greater in the right suspicious for pneumonitis or infiltrate. These findings are slightly progressed are worse since 04/19/2018. Interstitial edema is considered less likely in spite of mild cardiomegaly.
[2018-06-17] MEDS ORDERED: METOLAZONE2.5 M1 PO (13:32)
[2018-06-17] MEDS ORDERED: ASPIRIN EC81 M1 PO (13:33)
[2018-06-17] MEDS ORDERED: ATORVASTATIN CA10 M1 PO (13:39)
[2018-06-17] MEDS ORDERED: POTASSIUM CHLO20 ME2 PO (13:40)
[2018-06-17] MEDS ORDERED: LASIX40 M1 PO (13:40)
[2018-06-17] MEDS ORDERED: METFORMIN HCL1000 M1 PO (13:41)
[2018-06-17] MEDS ORDERED: ACETAZOLAMIDE500 M2 PO (13:41)
[2018-06-17] MEDS ORDERED: XARELTO20 M2 PO (13:41)
[2018-06-17 14:10] LABS: PT 12.6 SEC (9.4-12.5)
--- NOTE | 2018-06-17 14:53 | History & Physical ---
GasperRachel 06/17/18 1452: General Information and HPI MD Statement: I have seen and personally examined COURTNEY VIEIRA and documented this H&P. The patient is a 68 year old M who presented with a patient stated chief complaint of [cough]. Source of Information: patient, family Exam Limitations: no limitations History of Present Illness: 68 year old male with PMH Afib (on Xarelto), CHF, HTN, HLD, COPD on 4.5-5L oxygen at home and BiPAP at night, GERD, abdominal aneurysm, Prostate CA presenting with 2 day history of dry cough, weakness, lightheadedness, and chills. He reports associated SOB that has now increased to occuring at rest. He states he recently had Pneumonia (MRSA positive and was hospitalized in February 2018). He also reports decrease in appetite for about one week. This is confirmed by his whife who is at bedside. He denies fever, n/v/d, chest pain, abdominal pain, bloody stools. Allergies/Medications Allergies: Coded Allergies: No Known Allergies (04/10/18) Home Med list Acetazolamide 500 MG CAPSULE.ER 1 CAP PO BID UNKNOWN (Reported) Albuterol Sulfate (Proair Hfa) 90 MCG HFA.AER.AD 1 PUF INH Q4H PRN SHORTNESS OF BREATH (Reported) Albuterol Sulfate 2.5 MG/3 ML (0.083 %) VIAL.NEB 1 Vial INH/ABILIO Q6H PRN SHORTNESS OF BREATH (Reported) Aspirin (Ecotrin*) 81 MG TABLET.DR 1 TAB PO DAILY HEART/BLOOD (Reported) Atorvastatin Calcium 10 MG TABLET 1 TAB PO DAILY CHOLESTEROL (Reported) Budesonide/Formoterol Fumarate (Symbicort 160-4.5 Mcg Inhaler) 160 MCG-4.5 MCG/ ACTUATION HFA.AER.AD 2 PUF INH BID SHORTNESS OF BREATH (Reported) Cyanocobalamin (Vitamin B-12) (B-12) 1,000 MCG TABLET 1 TAB PO DAILY VITAMIN SUPPORT (Reported) Digoxin (Lanoxin) 125 MCG TABLET 1 TAB PO Q48@1700 AFIB Diltiazem HCl (Cardizem Cd) 240 MG CAP.ER.24H 240 MG PO DAILY ATRIAL FIB Ferrous Sulfate 325 MG TABLET. 325 MG PO BID Iron supplement Furosemide (Lasix) 40 MG TABLET 1 TAB PO BID DIURETIC (Reported) Insulin Aspart (Novolog) (Unknown Strength) VIAL (Unknown Dose) SC SEE SLIDING SCALE DIABETES (Reported) Insulin Detemir (Levemir) 100 UNIT/ML VIAL 10 UNITS SC 0900 DM Insulin Detemir (Levemir) 100 UNIT/ML VIAL 8 UNITS SC AT BEDTIME DM Loperamide HCl (Loperamide) 2 MG CAPSULE 2 CAP PO BID PRN ANTI-DIARRHEAL ( Reported) Metformin HCl 1,000 MG TABLET 1 TAB PO QAM DM (Reported) Metolazone 2.5 MG TABLET 1 TAB PO TID DIURETIC (Reported) Metoprolol Tartrate 25 MG TABLET 1 TAB PO BID AFIB Mometasone Furoate (Nasonex) 50 MCG SPRAY.PUMP 1 SPRAY NASB DAILY ALLERGIES ( Reported) Pantoprazole Sodium (Protonix) 40 MG TABLET.DR 1 TAB PO DAILY ACID REFLUX ( Reported) Potassium Chloride 20 MEQ TAB.ER.PRT 1 TAB PO DAILY SUPPLEMENT (Reported) Prednisone 10 MG TABLET 1 TAB PO DAILY COPD (Reported) Prednisone 10 MG TABLET 1 TAB PO BID RA As below Take 04/24-04/25 20 MG 04/26 onwards 10 MG daily. Rivaroxaban (Xarelto) 20 MG TABLET 1 TAB PO DAILY BLOOD THINNER (Reported) with food Tiotropium [place] (Spiriva) 18 MCG CAP.W.DEV 1 CAP INH DAILY SHORTNESS OF BREATH (Reported) Past History Travel History Traveled to [place] past 21 day No Medical History Neurological: TIA 2010 EENT: cataracts Cardiovascular: AFIB, CHF, hypertension, hyperlipidemia Respiratory: COPD, 4L O2 DEPENDENT BIPAP AT NIGHT Gastrointestinal: GERD, ABD ANEURYSM Hepatic: NONE Renal: NONE Musculoskeletal: NONE Psychiatric: NONE Endocrine: NONE Blood Disorders: NONE Cancer(s): prostate cancer HARDWARE MANAGER/Reproductive: NONE History of MRSA: Yes History of VRE: No History of CDIFF: No Tetanus Vaccine: 01/21/18 Surgical History Surgical History: cataract removal, PROSTATE SURGERY AAA REPAIR TONSILLECTOMY Endovascular AAA repair endovascular abdominal aortic aneurysm repair Past Family/Social History Family History Relations & Conditions if any MOTHER, ; Cause: COPD (chronic obstructive pulmonary disease). FATHER, ; Cause: Myocardial infarct. SISTER, ; Cause: Myocardial infarct. Psychosocial History Where do you live? Home Who Do You Live With? spouse Services at Home: None Primary Language: [place] Smoking Status: Former Smoker (quit 5 years ago) ETOH Use: denies use Illicit Drug Use: denies illicit drug use Living Will? unknown Power of Director [employer]/HCP? unknown Functional Ability ADLs Independent: dressing, eating, toileting, bathing. Ambulation: independent IADLs Independent: shopping, housework, finances, food prep, telephone, transportation , medication admin. Review of Systems Review of Systems Constitutional: Reports: chills, weakness. Denies: fever. EENTM: Reports: no symptoms. Cardiovascular: Reports: no symptoms. Respiratory: Reports: cough, short of breath. Denies: hemoptysis, sputum production, wheezing. GI: Reports: no symptoms. Genitourinary: Reports: no symptoms. Musculoskeletal: Reports: no symptoms. Skin: Reports: no symptoms. Exam & Diagnostic Data Last 24 Hrs of Vital Signs/I&O Vital Signs Date Time Temp Pulse Resp B/P B/P Pulse O2 O2 Flow FiO2 Mean Ox Delivery Rate 06/17 1541 98.7 96 20 117/61 100 Nasal 5.0L Cannula 06/17 1319 98 Room Air 06/17 1222 95 20 102/60 98 Nasal 5.0L Cannula 06/17 1052 97.7 78 30 118/70 98 Aerosol 10L Mask Intake & Output 06/17 1600 06/17 0800 06/17 0000 Intake Total Output Total Balance Patient 171 lb Weight Weight Reported by Patient Measurement Method Physical Exam General Appearance Alert, Oriented X3, Cooperative, No Acute Distress Skin ecchymosis BUE/BLE, pale Skin Temp/Moisture Exam: Warm/Dry HEENT Atraumatic, PERRLA Neck Supple Cardiovascular Regular Rate, Normal S1, Normal S2, No Murmurs Lungs rhonchi to bilateral bases with expiratory wheezes Abdomen Normal Bowel Sounds, Soft, No Tenderness Extremities 1+pitting edema bilateral lower extremities to level of tibial tuberosity Assessment/Plan Assessment: 68 year old male with PMH Afib (on Xarelto), HFrEF, HTN, HLD, COPD on 4.5-5L oxygen at home and BiPAP at night, GERD, abdominal aneurysm, Prostate CA presenting with 2 day history of dry cough, weakness, lightheadedness, and chills. He reports associated SOB that has now increased to occuring at rest. He states he recently had Pneumonia (MRSA positive and was hospitalized in February 2018). He also reports decrease in appetite for about one week. This is confirmed by his whife who is at bedside. He denies fever, n/v/d, chest pain, abdominal pain, bloody stools. ED work up revealed possible pneumonia and guiac positive stool with hemoglobin 7.4. Patient will be admitted to general medicine service for the following: Problem List: 1. Acute COPD exacerbation 2. Pneumonia 3. Anemia 4. GI bleed 5. IDDM 6. H/O Afib on Xarelto 7. Acute on Chronic Renal Failure; CKD stage 4 Admission Data: VS T97.7 P78 RR30 BP118/70 Sat98% (mask) EKG: Afib Significant Labs: WBC 9.5; Hgb 7.4; Cr. 2.5 BUN 94; Glucose 253 Dig level <0.4 Guiac positive stool CXR:Increased interstitial markings in both lung bases slightly greater in the right suspicious for pneumonitis or infiltrate. These findings are slightly progressed are worse since 04/19/2018. Interstitial edema is considered less likely in spite of mild cardiomegaly. #Acute COPD exacerbation-likely 2/2 PNA -Continue home regimen of COPD inhalers -Continue supplemental oxygen and increase as necessary to maintain oxygen >90% but not to exceed 93% -IV SoluMedrol 40mg IV Q8 #Pneumonia-likely CAP vs HAP given frequent hospital admissions. Must consider last admission with MRSA pneumonia in the selection of antibiotics this admission -Vancomycin/Ceftazidime #Anemia-possible 2/2 GI bleed from small bowel vs iron deficiency -Patient had recent EGD and colonoscopy with no signs of bleeding. This does not rule out small bowel bleed. Patient is on xarelto and this could be the cause of his GI bleeding. Patient on Xarelto for Afib and managed by Dr. Sofia whom he last saw on June 07. Will continue on xarelto at this time. -Will obtain iron studies for evaluation of iron def anemia and supplement as appropriate -Consider need for PPI in setting of GI bleed however seems less effective when patient has known EGD showing no ulceration. #IDDM -finger sticks -sliding scale insulin -will hold metformin with elevated creatinine #Acute on chronic renal failure (CKD stage 4) -continue to monitor -IV hydration -avoid renal toxic medications including NSAIDS and metformin DVT prophylaxis: ALPS/ambulation/on xarelto Code: FC As Ranked By This Provider Problem List: 1. COPD exacerbation 2. Hypoxia 3. Atrial fibrillation 4. Diabetes mellitus 5. Pneumonia 6. Anemia Core Measures/Misc (08/06) Acute Coronary Syndrome ACS Diagnosis: No Congestive Heart Failure Congestive Heart Failure Diagnosis No Cerebrovascular Accident CVA/TIA Diagnosis: No VTE (View Protocol) VTE Risk Factors Acute Medical Illness No Mechanical VTE Prophylaxis d/t N/A MechProphylax Ordered No VTE Pharm Prophylaxis d/t NA PharmProphylax ordered Sepsis (View protocol) Sepsis Present: No If YES complete Sepsis Event Note If YES complete Sepsis Event Note Tejal CR,[facility] 06/17/18 1637: Core Measures/Misc (08/06) Sepsis (View protocol) If YES complete Sepsis Event Note If YES complete Sepsis Event Note Resident Review Statement Resident Statement: examined this patient, discussed with director internal communications, agreed with director internal communications, discussed with family, reviewed EMR data (avail), discussed with nursing , discussed with case mgmt, reviewed images, amended to note Other Findings: Mr. Vieira is a 68-year-old male with past medical history of TIA, atrial fibrillation on rivaroxaban followed by Dr. Walton, CHF, hypertension, hyperlipidemia, prostate cancer, COPD on 4-5 L nasal cannula followed by Dr. Echavarria, diabetes mellitus and CKD who presents with a 2 day history of nonproductive cough and shortness of breath. Patient has been feeling increasingly short of breath the past few days with chills, lightheadedness, and nonproductive cough. He denies any blood in his stool but the says that his stools are chronically dark. He denies any fevers, chest pain, abdominal pain, nausea, vomiting, diarrhea, or dysuria. Patient normally ambulates with a walker. On presentation, vital signs were T 97.9, HR 78, RR 30, BP 118/70, saturating 90 % on 10 L Ventimask.. General: Patient appears stated age, alert and orientedx3. HEENT: PERRL. No goiter. No palpable lymph nodes. Cardiovascular: Irregular Lungs: Expiratory wheezing Abdomen: Normal bowel sounds. Nontender to palpation in all four quadrants. Skin: Diffuse ecchymosis on upper extremities Neuro: CN II-XII intact without any focal deficits. Ext: 1+ pitting edema bilaterally. Laboratories were significant for hemoglobin 7.4, MCV 89.8, chloride 96, carbon dioxide 34, BUN 94, creatinine 2.4 (baseline 1.5), glucose 259, troponin 0 0.08, INR 1.15, digoxin less than 0.4. Chest x-ray showed increased interstitial markings concerning for pneumonia. He will be admitted to general medicine and treated for the following problems: 1. Acute COPD exacerbation secondary to pneumonia 2. Acute on chronic anemia 3. Acute on chronic renal failure #Acute COPD exacerbation secondary to pneumonia: Patient presents with shortness of breath and cough with imaging consistent with pneumonia. The patient presents from the community but has significant hospital exposure including frequent rehospitalizations and multiple courses of antibiotics as well as recent sputum cultures growing MRSA. Because of this, he is a high risk for developing pneumonia secondary to multidrug-resistant bacteria and so we will treat with broad-spectrum antibiotics at this time. -Vancomycin and ceftazidine, renally dosed -Pulmonology consult tomorrow -Methylprednisone 40 mg every 8 hours -Sputum culture -Urinary antigens for Streptococcus and Legionella -[facility] nebs #Acute on chronic anemia: Patient has history of chronic anemia with baseline hemoglobin 89. He had recent EGD and colonoscopy with Dr. Walton on 04/23/18 which showed a possible esophageal varix and 7 polyps but no signs of active bleeding. The patient is guaiac positive and on rivaroxaban. It is possible that the patient has small bowel pathology. He may also have developed gastric ulceration recently though this is less likely. At this point, he is hemodynamically stable. -Daily CBC, hemoglobin goal greater than 7 -Type and screen -Guaiac all stools -If large bloody bowel movement or patient becomes hemodynamic unstable, consider transfer to ICU -Omeprazole 40 mg twice daily #Acute on chronic renal failure: Patient has baseline CKD but now presents with elevated creatinine above baseline. He was recently started on metolazone for his lower extremity edema which may explain his elevated creatinine. -Hold metolazone and furosemide -Monitor I's and O's -We will avoid IV fluid hydration at this point given his history of CHF -Consider renal ultrasound if creatinine fails to improve #Chronic medical problems -Continue other home medications DVT prophylaxis with rivaroxaban Consistent carbohydrate two diet Full code
[2018-06-17 16:40] VITALS: BP 115/60
--- NOTE | 2018-06-17 17:03 | Admission Certification ---
Admission Certification Certification Statement - As attending physician, I certify that at the time of - admission, based on clinical presentation, severity of - symptoms, need for further diagnostic testing and - therapeutic interventions, and risk of adverse outcomes - without in-hospital treatment, in my clinical assessment, - this patient requires an acute hospital stay for a minimum - of two nights or longer. I have also considered psychsocial - factors such as support system, advanced age, financial - issues, cognitive issues, and failed out-patient treatments, - past re-admission history, safety of patient, and lack of - compliance as applicable. Specific rationale supporting this admission is: COPD, ? GI bleed
[2018-06-17 23:06] VITALS: BP 140/58
[2018-06-17 23:10] VITALS: BP 126/64
[2018-06-18 06:51] VITALS: BP 118/64
--- NOTE | 2018-06-18 08:09 | PN- Housestaff ---
See Addendum Subjective Follow-up For: pneumonia anemia Complaints: no complaints Subjective: Patien states he feels okay and did well overnight. He does admit to lightheadedness with standing and ambulating to bathroom. Denies SOB while on oxygen and BiPAP at night, chest pain, fever, chills, n/v/d. Review of Systems Constitutional: Reports: see HPI. Objective Last 24 Hrs of Vital Signs/I&O Vital Signs Date Time Temp Pulse Resp B/P B/P Pulse O2 O2 Flow FiO2 Mean Ox Delivery Rate 06/18 0912 87 118/64 06/18 0809 98 Nasal 4.0L Cannula 06/18 0651 98.1 87 20 118/64 93 06/18 0000 BIPAP 5.0L 06/17 2320 68 93 06/17 2310 98.4 90 18 126/64 96 Nasal 5.0L Cannula 06/17 2201 Nasal 5.0L Cannula 06/17 2154 90 126/64 06/17 1640 98.0 98 22 115/60 95 Nasal 5.0L Cannula 06/17 1640 95 Nasal 5.0L Cannula 06/17 1541 98.7 96 20 117/61 100 Nasal 5.0L Cannula 06/17 1319 98 Room Air 06/17 1222 95 20 102/60 98 Nasal 5.0L Cannula 06/17 1052 97.7 78 30 118/70 98 Aerosol 10L Mask Intake & Output 06/18 1600 06/18 0800 06/18 0000 Intake Total 100 1000 Output Total 300 450 Balance -200 550 Intake, IV 750 Intake, Oral 100 250 Output, Urine 300 450 Patient 170 lb 159 lb Weight Weight Bed scale Bed scale Measurement Method Physical Exam General Appearance: Alert, Oriented X3, Cooperative, No Acute Distress Skin: No Rashes Skin Temp/Moisture Exam: Warm/Dry HEENT: Atraumatic, PERRLA Neck: Supple Cardiovascular: Normal S1, Normal S2, irregularly irregular Lungs: scattered rhonchi bilaterally Abdomen: Normal Bowel Sounds, Soft, No Tenderness Extremities: No Edema, Normal Pulses Assessment/Plan Assessment: 68 year old male with PMH Afib (on Xarelto), HFrEF, HTN, HLD, COPD on 4.5-5L oxygen at home and BiPAP at night, GERD, abdominal aneurysm, Prostate CA presenting with 2 day history of dry cough, weakness, lightheadedness, and chills. He reports associated SOB that has now increased to occuring at rest. He states he recently had Pneumonia (MRSA positive and was hospitalized in February 2018). He also reports decrease in appetite for about one week. This is confirmed by his whife who is at bedside. He denies fever, n/v/d, chest pain, abdominal pain, bloody stools. ED work up revealed possible pneumonia and guiac positive stool with hemoglobin 7.4. Patient will be admitted to general medicine service for the following: Problem List: 1. Acute COPD exacerbation 2. Pneumonia 3. Anemia 4. GI bleed 5. IDDM 6. H/O Afib on Xarelto 7. Acute on Chronic Renal Failure; CKD stage 4 #Acute COPD exacerbation-likely 2/2 PNA -Continue home regimen of COPD inhalers -Continue supplemental oxygen and increase as necessary to maintain oxygen >90% but not to exceed 93% -IV SoluMedrol 40mg IV Q12 #Pneumonia-likely CAP vs HAP given frequent hospital admissions. Must consider last admission with MRSA pneumonia in the selection of antibiotics this admission -Vancomycin/Ceftazidime: vanc trough 06/22 @ 13:30 -Pulm Consult: reduce soumedrol to 40mg iv q12h obtain CXR 06/19 AM trc/nebs, continue inhalers sputum cx to tailor course of antibiotics - hx of MRSA anemia per primary team D/C Diamox - it can increase respiratory drive continue NIV BiPAP nocturnally #Anemia-possible 2/2 GI bleed from small bowel vs iron deficiency -Patient had recent EGD and colonoscopy with no signs of bleeding. This does not rule out small bowel bleed. Patient is on xarelto and this could be the cause of his GI bleeding. Patient on Xarelto for Afib and managed by Dr. Sofia whom he last saw on June 07. Will continue on xarelto at this time. -Will obtain iron studies for evaluation of iron def anemia and supplement as appropriate: pending -Consider need for PPI in setting of GI bleed however seems less effective when patient has known EGD showing no ulceration. -Hgb 6.7 today; transfusing 1unit pRBCs; monitor CBC in am #IDDM -finger sticks -sliding scale insulin -will hold metformin with elevated creatinine #Acute on chronic renal failure (CKD stage 4) -continue to monitor: 2.0 today 2.4 on admission -IV hydration -avoid renal toxic medications including NSAIDS and metformin DVT prophylaxis: ALPS/ambulation/on xarelto Code: FC Problem List: 1. COPD exacerbation 2. Anemia 3. Pneumonia Pain Ratin Pain Location: none Pain Goal: Remain pain free Pain Plan: see a/p Tomorrow's Labs & Rationales: cbc
--- NOTE | 2018-06-18 10:11 | Cons- Pulmonary ---
General Information and HPI Consulting Request Date of Consult: 06/18/18 Requested By: Dr. Driscoll Reason for Consult: Dyspnea, COPD Source of Information: patient Exam Limitations: no limitations History of Present Illness: 68 year old man. Known to me from the office. Consultation for shortness of breath. 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 CXR with increased interstitial markings in lung bases R>L, ?infiltrate. Phlegm is persistent, copious, garcia in nature, no fevers, no chills. Leg edema mostly resolved. No n/v/d/c. No cp, no segura. Allergies/Medications Allergies: Coded Allergies: No Known Allergies (04/10/18) Home Med List: Acetazolamide 500 MG CAPSULE.ER 1 CAP PO BID UNKNOWN (Reported) Albuterol Sulfate (Proair Hfa) 90 MCG HFA.AER.AD 1 PUF INH Q4H PRN SHORTNESS OF BREATH (Reported) Albuterol Sulfate 2.5 MG/3 ML (0.083 %) VIAL.NEB 1 Vial INH/ABILIO Q6H PRN SHORTNESS OF BREATH (Reported) Aspirin (Ecotrin*) 81 MG TABLET.DR 1 TAB PO DAILY HEART/BLOOD (Reported) Atorvastatin Calcium 10 MG TABLET 1 TAB PO DAILY CHOLESTEROL (Reported) Budesonide/Formoterol Fumarate (Symbicort 160-4.5 Mcg Inhaler) 160 MCG-4.5 MCG/ ACTUATION HFA.AER.AD 2 PUF INH BID SHORTNESS OF BREATH (Reported) Cyanocobalamin (Vitamin B-12) (B-12) 1,000 MCG TABLET 1 TAB PO DAILY VITAMIN SUPPORT (Reported) Digoxin (Lanoxin) 125 MCG TABLET 1 TAB PO Q48@1700 AFIB Diltiazem HCl (Cardizem Cd) 240 MG CAP.ER.24H 240 MG PO DAILY ATRIAL FIB Ferrous Sulfate 325 MG TABLET.DR 325 MG PO BID Iron supplement Furosemide (Lasix) 40 MG TABLET 1 TAB PO BID DIURETIC (Reported) Insulin Aspart (Novolog) (Unknown Strength) VIAL (Unknown Dose) SC SEE SLIDING SCALE DIABETES (Reported) Insulin Detemir (Levemir) 100 UNIT/ML VIAL 10 UNITS SC 0900 DM Insulin Detemir (Levemir) 100 UNIT/ML VIAL 8 UNITS SC AT BEDTIME DM Loperamide HCl (Loperamide) 2 MG CAPSULE 2 CAP PO BID PRN ANTI-DIARRHEAL ( Reported) Metformin HCl 1,000 MG TABLET 1 TAB PO QAM DM (Reported) Metolazone 2.5 MG TABLET 1 TAB PO TID DIURETIC (Reported) Metoprolol Tartrate 25 MG TABLET 1 TAB PO BID AFIB Mometasone Furoate (Nasonex) 50 MCG SPRAY.PUMP 1 SPRAY NASB DAILY ALLERGIES ( Reported) Pantoprazole Sodium (Protonix) 40 MG TABLET.DR 1 TAB PO DAILY ACID REFLUX ( Reported) Potassium Chloride 20 MEQ TAB.ER.PRT 1 TAB PO DAILY SUPPLEMENT (Reported) Prednisone 10 MG TABLET 1 TAB PO DAILY COPD (Reported) Prednisone 10 MG TABLET 1 TAB PO BID RA As below Take 04/24-04/25 20 MG 04/26 onwards 10 MG daily. Rivaroxaban (Xarelto) 20 MG TABLET 1 TAB PO DAILY BLOOD THINNER (Reported) with food Tiotropium [place] (Spiriva) 18 MCG CAP.W.DEV 1 CAP INH DAILY SHORTNESS OF BREATH (Reported) Current Medications: Current Medications Sig/Eve Start time Last Medication Dose Route Stop Time Status Admin Acetaminophen 650 MG Q6-PRN PRN 06/17 1615 AC PO Acetazolamide 500 MG BID 06/17 2100 AC 06/18 PO 09 Albuterol Sulfate 3 ML EVERY 4 HRS/AWAKE 06/18 0800 AC 06/18 INH 0808 Albuterol Sulfate 1 PUF Q4H PRN 06/17 1615 AC INH Albuterol Sulfate 3 ML Q6H PRN 06/17 1615 AC INH Aspirin Buffered 81 MG DAILY 06/18 0900 AC 06/18 PO 0911 Atorvastatin Calcium 10 MG DAILY 06/18 0900 AC 06/18 PO 0912 Budesonide/ 2 PUF BID 06/17 2100 AC 06/18 Formoterol Fumarate INH 0911 Ceftazidime 1,000 MG DAILY@1330 06/18 1330 AC IV Ceftazidime 0 .STK-MED ONE 06/17 1335 DC .ROUTE Ceftazidime 1,000 MG ONCE ONE 06/17 1230 DC 06/17 IV 06/17 1231 1344 Cyanocobalamin 1,000 MCG DAILY 06/18 0900 AC 06/18 PO 0912 Diltiazem HCl 240 MG DAILY 06/18 0900 AC 06/18 PO 0911 Ferrous Sulfate 325 MG BID 06/17 2100 DC PO Ferrous Sulfate 325 MG TID 06/17 2100 AC 06/18 PO 0912 Furosemide 40 MG BID 06/17 2100 CAN PO Guaifenesin 10 ML Q4P PRN 06/17 1600 AC PO Insulin Aspart 0 TIDAC 06/17 1700 AC 06/18 SC 0748 Insulin Detemir 10 UNITS 0906/18 0900 AC 06/18 SC 0916 Insulin Detemir 8 UNITS AT BEDTIME 06/17 2100 AC 06/17 SC 2153 Loperamide HCl 4 MG BID PRN 06/17 1615 AC PO Methylprednisolone 40 MG Q8 06/18 0600 AC 06/18 IV 0709 Methylprednisolone 0 .STK-MED ONE 06/17 1335 DC .ROUTE Methylprednisolone 125 MG ONCE ONE 06/17 1230 DC 06/17 IV 06/17 1231 1344 Metoprolol Tartrate 25 MG BID 06/17 2100 AC 06/18 PO 0912 Omeprazole 40 MG 1/2H B/BREAKF/DINNER 06/17 1630 AC 06/18 PO 0709 Potassium Chloride 20 MEQ DAILY 06/18 0900 AC 06/18 PO 0912 Rivaroxaban 15 MG AT BEDTIME 06/17 2100 AC 06/17 PO 2153 Sodium Chloride 1,000 ML ONCE ONE 06/17 1430 DC 06/17 IV 06/17 2229 1501 Tiotropium [place] 1 PUF DAILY 06/18 0900 AC 06/18 INH 0911 Vancomycin HCl 1,000 MG DAILY@1400 06/18 1400 AC Sodium Chloride 250 ML IV Vancomycin HCl 0 .STK-MED ONE 06/17 1335 DC .ROUTE Vancomycin HCl 1,000 MG ONCE ONE 06/17 1230 DC 06/17 Sodium Chloride 250 ML IV 06/17 1329 1410 Review of Systems Comments 18 point review of systems was performed and reviewed. Please see pertinent positives and pertinent negatives in the HPI. Otherwise ROS is negative. Past History Travel History Traveled to [place] past 21 day No Medical History Blood Transfusion Hx: Yes Neurological: TIA 2010 EENT: cataracts Cardiovascular: AFIB, CHF, hypertension, hyperlipidemia Respiratory: COPD, 4L O2 DEPENDENT BIPAP AT NIGHT Gastrointestinal: GERD, ABD ANEURYSM Hepatic: NONE Renal: NONE Musculoskeletal: NONE Psychiatric: NONE Endocrine: NONE Blood Disorders: NONE Cancer(s): prostate cancer GENERAL SERVICE OFFICER/Reproductive: NONE Surgical History Surgical History: cataract removal, PROSTATE SURGERY AAA REPAIR TONSILLECTOMY Endovascular AAA repair endovascular abdominal aortic aneurysm repair Family History Relations & Conditions If Any: MOTHER, ; Cause: COPD (chronic obstructive pulmonary disease). FATHER, ; Cause: Myocardial infarct. SISTER, ; Cause: Myocardial infarct. Psychosocial History Where Do You Live? Home Who Do You Live With? spouse Services at Home: None Primary Language: Ukrainian Smoking Status: Former Smoker (quit 5 years ago) ETOH Use: denies use Illicit Drug Use: denies illicit drug use Living Will? unknown Power of Hotbed Operator/HCP? unknown Functional Ability ADLs Independent: dressing, eating, toileting, bathing. Ambulation: independent IADLs Independent: shopping, housework, finances, food prep, telephone, transportation , medication admin. Exam & Diagnostic Data Last 24 Hrs of Vital Signs/I&O Vital Signs Date Time Temp Pulse Resp B/P B/P Pulse O2 O2 Flow FiO2 Mean Ox Delivery Rate 06/18 0912 87 118/64 06/18 0809 98 Nasal 4.0L Cannula 06/18 0651 98.1 87 20 118/64 93 06/18 0000 BIPAP 5.0L 06/17 2320 68 93 06/17 2310 98.4 90 18 126/64 96 Nasal 5.0L Cannula 06/17 2201 Nasal 5.0L Cannula 06/17 2154 90 126/64 06/17 1640 98.0 98 22 115/60 95 Nasal 5.0L Cannula 06/17 1640 95 Nasal 5.0L Cannula 06/17 1541 98.7 96 20 117/61 100 Nasal 5.0L Cannula 06/17 1319 98 Room Air 06/17 1222 95 20 102/60 98 Nasal 5.0L Cannula 06/17 1052 97.7 78 30 118/70 98 Aerosol 10L Mask Intake & Output 06/18 1600 06/18 0800 06/18 0000 Intake Total 100 1000 Output Total 300 450 Balance -200 550 Intake, IV 750 Intake, Oral 100 250 Output, Urine 300 450 Patient 170 lb 159 lb Weight Weight Bed scale Bed scale Measurement Method Physical Exam Other Physical Findings: gen - awake and alert head/neck - high flow nasal cannul cvs -s1, s2 lungs - b/l rare rhonchi abd - soft, bs+ ext 1-2+ edema Last 48 Hrs of Labs/Sridhar: Laboratory Tests 06/18/18 0555: Anion Gap 13, Estimated GFR 33 L, BUN/Creatinine Ratio 43.0 H, CBC w Diff Pending, WBC Pending, RBC Pending, Hgb Pending, Hct Pending, MCV Pending, MCH Pending, MCHC Pending, RDW Pending, Plt Count Pending, MPV Pending, Gran % Pending, Lymphocytes % Pending, Monocytes % Pending, Eosinophils % Pending, Basophils % Pending, Absolute Granulocytes Pending, Absolute Lymphocytes Pending , Absolute Monocytes Pending, Absolute Eosinophils Pending, Absolute Basophils Pending 06/17/18 1310: PT 12.6 H, INR 1.15 06/17/18 1117: Anion Gap 13, Estimated GFR 27 L, BUN/Creatinine Ratio 39.2 H, Glucose 253 H, Calcium 9.0, Phosphorus 4.2, Magnesium 2.2, Total Bilirubin 0.5, Direct Bilirubin 0.4, AST 10 L, ALT 27, Alkaline Phosphatase 78, Troponin I 0.08, Total Protein 5.4 L, Albumin 3.1 L, Digoxin < 0.4 L 06/17/18 1111: CBC w Diff NO MAN DIFF REQ, RBC 2.58 L, MCV 89.8, MCH 28.5, MCHC 31.8 L, RDW 18.2 H, MPV 9.0, Gran % 95.0 H, Lymphocytes % 3.5 L, Monocytes % 1.4 L, Eosinophils % 0.1, Basophils % 0, Absolute Granulocytes 9.0 H, Absolute Lymphocytes 0.3 L, Absolute Monocytes 0.1, Absolute Eosinophils 0, Absolute Basophils 0 Microbiology 06/17 1900 URINE ROUT: Legionella Antigen - COMP 06/17 1900 URINE ROUT: Streptococcus pneumoniae Antigen (M - COMP Assessment/Plan Impression/Plan: Impression 68 year old man * acute exacerbation of COPD - atelectasis vs. pneumonia - hx of MRSA - currently treated for health care associated pathogens * chronic hypoxemic respiratory failure * Hx of BHARATHI * anemia Plan -reduce soumedrol to 40mg iv q12h -obtain CXR 731 AM -trc/nebs, continue inhalers -sputum cx to tailor course of antibiotics - hx of MRSA -anemia per primary team -D/C Diamox - it can increase respiratory drive -continue NIV BiPAP nocturnally DVT prophylaxis at all times Consult Acknowledgment - Thank you for your consult request.
[2018-06-18 10:14] LABS: ABSOLUTE BASOPHIL COUNT 0 /CUMM (0.0-0.2); ABSOLUTE EOSINOPHIL COUNT 0 /CUMM (0.0-0.7); ABSOLUTE GRANULOCYTE CT 6.6 /CUMM (1.4-6.5); ABSOLUTE LYMPH COUNT 0.2 /CUMM (1.2-3.4); ABSOLUTE MONOCYTE COUNT 0.1 /CUMM (0.10-0.60); BASOPHIL % 0 % (0.0-2.0); EOSINOPHIL % 0.1 % (0-5); GRANULOCYTE % 96.2 % (42.2-75.2); MEAN CORPUSCULAR HGB 28.7 PG (27.0-31.0); MEAN CORPUSCULAR HGB CONC 31.9 G/DL (33.0-37.0); MEAN PLATELET VOLUME 10.3 FL (7.4-10.4); PLATELET COUNT 168 /CUMM (130-400); RBC DISTRIBUTION WIDTH 18.3 % (11.5-14.5); RED BLOOD CELL CT 2.34 /CUMM (4.70-6.10); WHITE BLOOD CELL COUNT 6.9 /CUMM (4.8-10.8)
[2018-06-18 12:50] VITALS: BP 120/72
[2018-06-18 13:21] VITALS: BP 118/68
[2018-06-18 22:25] VITALS: BP 130/72
--- NOTE | 2018-06-19 05:32 | PN- Housestaff ---
See Addendum Subjective Follow-up For: Pneumonia Acute COPD exacerbation GI bleeding Anemia Complaints: wanted coke with his meals Subjective: He has states that he feels okay, except for yesterday which was humid and did not help his respiration. Review of Systems Constitutional: Denies: chills, diaphoresis, fever, malaise, weakness. EENTM: Reports: see HPI. Cardiovascular: Reports: see HPI. Respiratory: Reports: see HPI, cough. Gastrointestinal: Reports: no symptoms. Genitourinary: Reports: no symptoms. Musculoskeletal: Reports: no symptoms. Skin: Reports: no symptoms. Neurological/Psychological: Reports: no symptoms. Hematologic/Endocrine: Reports: no symptoms. Immunologic/Allergic: Reports: no symptoms. Objective Last 24 Hrs of Vital Signs/I&O Vital Signs Date Time Temp Pulse Resp B/P B/P Pulse O2 O2 Flow FiO2 Mean Ox Delivery Rate 06/19 0815 80 120/64 06/19 0800 95 Nasal 4.0L Cannula 06/19 0655 97.8 80 20 120/64 95 CPAP 06/19 0051 83 96 06/19 0000 94 Nasal 4.0L Cannula 06/18 2300 85 98 06/18 2225 98.3 76 18 130/72 98 Nasal 4.0L Cannula 06/18 2023 130/70 06/18 1557 Nasal 4.0L Cannula 06/18 1555 97 Nasal 4.0L Cannula 06/18 1321 97.8 98 20 118/68 95 Nasal 4.0L Cannula 06/18 1250 98.0 98 20 120/72 95 Nasal 4.0L Cannula Intake & Output 06/19 1600 06/19 0800 06/19 0000 Intake Total 120 120 Output Total 200 Balance -80 120 Intake, Oral 120 120 Output, Urine 200 Patient 163 lb Weight Weight Bed scale Measurement Method Physical Exam General Appearance: Alert, Oriented X3, Cooperative, No Acute Distress Skin: No Rashes Skin Temp/Moisture Exam: Warm/Dry Sepsis Skin Exam (color): Normal for Ethnicity HEENT: Atraumatic Neck: Supple, No JVD Cardiovascular: Regular Rate, Normal S1, Normal S2 Lungs: bialateral wheeze Abdomen: Soft, No Tenderness Neurological: Normal Speech Extremities: No Cyanosis, Normal Pulses Vascular: Normal Pulses, Pulses Symmetrical Current Medications: Current Medications Sig/Eve Start time Last Medication Dose Route Stop Time Status Admin Acetaminophen 650 MG Q6-PRN PRN 06/17 1615 AC PO Albuterol Sulfate 3 ML EVERY 4 HRS/AWAKE 06/18 0800 AC 06/19 INH 0747 Albuterol Sulfate 1 PUF Q4H PRN 06/17 1615 AC INH Albuterol Sulfate 3 ML Q6H PRN 06/17 1615 AC INH Aspirin Buffered 81 MG DAILY 06/18 09 AC 06/19 PO 0815 Atorvastatin Calcium 10 MG DAILY 06/18 0900 AC 06/19 PO 0815 Budesonide/ 2 PUF BID 06/17 2100 AC 06/19 Formoterol Fumarate INH 0815 Ceftazidime 1,000 MG DAILY@1330 06/18 1330 AC 06/18 IV 1238 Cyanocobalamin 1,000 MCG DAILY 06/18 0900 AC 06/19 PO 0815 Diltiazem HCl 240 MG DAILY 06/18 0900 AC 06/19 PO 0815 Ferrous Sulfate 325 MG TID 06/17 2100 AC 06/19 PO 0815 Guaifenesin 10 ML Q4P PRN 06/17 1600 AC PO Insulin Aspart 0 TIDAC 06/17 1700 AC 06/19 SC 0816 Insulin Detemir 10 UNITS 0900 06/18 0900 AC 06/19 SC 0815 Insulin Detemir 8 UNITS AT BEDTIME 06/17 2100 AC 06/18 SC 202 Loperamide HCl 4 MG BID PRN 06/17 1615 AC PO Methylprednisolone 40 MG Q12 06/18 2100 AC 06/19 IV 0815 Metoprolol Tartrate 25 MG BID 06/17 2100 AC 06/19 PO 0815 Omeprazole 40 MG 1/2H B/BREAKF/DINNER 06/17 1630 AC 06/19 PO 0527 Potassium Chloride 20 MEQ DAILY 06/18 0900 AC 06/19 PO 0815 Rivaroxaban 15 MG AT BEDTIME 06/17 2100 AC 06/18 PO 2022 Tiotropium [place] 1 PUF DAILY 06/18 0900 AC 06/19 INH 0815 Vancomycin HCl 1,000 MG DAILY@1400 06/18 1400 AC 06/18 Sodium Chloride 250 ML IV 1614 Last 24 Hrs of Lab/Sridhar Results Last 24 Hrs of Labs/Mics: Laboratory Tests 06/19/18 0600: Anion Gap 15, Estimated GFR 30 L, BUN/Creatinine Ratio 39.5 H, CBC w Diff Pending, WBC Pending, RBC Pending, Hgb Pending, Hct Pending, MCV Pending, MCH Pending, MCHC Pending, RDW Pending, Plt Count Pending, MPV Pending, Gran % Pending, Lymphocytes % Pending, Monocytes % Pending, Eosinophils % Pending, Basophils % Pending, Absolute Granulocytes Pending, Absolute Lymphocytes Pending , Absolute Monocytes Pending, Absolute Eosinophils Pending, Absolute Basophils Pending Assessment/Plan Assessment: his Cr was increased to 2.2 from 2.0 with a baseline of 1.5 so we will consult with farm assistant for that. Problem List: 1. COPD exacerbation 2. Pneumonia 3. Anemia 4. Diabetes mellitus 5. Atrial fibrillation with rapid ventricular response 6. Pneumonia Pain Ratin Pain Location: no Pain Goal: Remain pain free Pain Plan: see a/p Tomorrow's Labs & Rationales: CBC, BEP, DVT/Prophylaxis: mechanical, pharmacological Consulting Request: Consulting Specialty: Nephrology Consulting Physician: Dr. Hernandez Reason for Consult: Inceased Cr., [place]?
[2018-06-19 06:55] VITALS: BP 120/64
[2018-06-19 08:50] LABS: ABSOLUTE BASOPHIL COUNT 0 /CUMM (0.0-0.2); ABSOLUTE EOSINOPHIL COUNT 0 /CUMM (0.0-0.7); ABSOLUTE LYMPH COUNT 0.3 /CUMM (1.2-3.4); ABSOLUTE MONOCYTE COUNT 0.2 /CUMM (0.10-0.60); BASOPHIL % 0 % (0.0-2.0); EOSINOPHIL % 0 % (0-5); MEAN PLATELET VOLUME 9.1 FL (7.4-10.4)
[2018-06-19 09:35] LABS: ABSOLUTE GRANULOCYTE CT 10.6 /CUMM (1.4-6.5); GRANULOCYTE % 95.7 % (42.2-75.2); HEMATOCRIT 23.5 % (42-52); MEAN CORPUSCULAR HGB 29.4 PG (27.0-31.0); MEAN CORPUSCULAR HGB CONC 32.1 G/DL (33.0-37.0); MEAN CORPUSCULAR VOLUME 91.6 FL (80.0-94.0); PLATELET COUNT 183 /CUMM (130-400); RBC DISTRIBUTION WIDTH 17.8 % (11.5-14.5); RED BLOOD CELL CT 2.56 /CUMM (4.70-6.10)
[2018-06-19 09:47] LABS: WHITE BLOOD CELL COUNT 11.1 /CUMM (4.8-10.8)
--- NOTE | 2018-06-19 11:54 | PN- Pulmonary ---
Subjective HPI/Critical Care Issues: pt seen and examined feels better wants to liberate his diet dyspnea significanlty improved Objective Current Medications: Current Medications Sig/Eve Start time Last Medication Dose Route Stop Time Status Admin Acetaminophen 650 MG Q6-PRN PRN 06/17 1615 AC PO Albuterol Sulfate 3 ML EVERY 4 HRS/AWAKE 06/18 0800 AC 06/19 INH 1124 Albuterol Sulfate 1 PUF Q4H PRN 06/17 1615 AC INH Albuterol Sulfate 3 ML Q6H PRN 06/17 1615 AC INH Aspirin Buffered 81 MG DAILY 06/18 09 AC 06/19 PO 0815 Atorvastatin Calcium 10 MG DAILY 06/18 09 AC 06/19 PO 0815 Budesonide/ 2 PUF BID 06/17 2100 AC 06/19 Formoterol Fumarate INH 0815 Ceftazidime 1,000 MG DAILY@1330 06/18 1330 AC 06/18 IV 1238 Cyanocobalamin 1,000 MCG DAILY 06/18 09 AC 06/19 PO 0815 Diltiazem HCl 240 MG DAILY 06/18 0900 AC 06/19 PO 0815 Ferrous Sulfate 325 MG TID 06/17 2100 AC 06/19 PO 0815 Guaifenesin 10 ML Q4P PRN 06/17 1600 AC PO Insulin Aspart 0 TIDAC 06/17 1700 AC 06/19 SC 0816 Insulin Detemir 10 UNITS 0900 06/18 0900 AC 06/19 SC 0815 Insulin Detemir 8 UNITS AT BEDTIME 06/17 2100 AC 06/18 SC 202 Loperamide HCl 4 MG BID PRN 06/17 1615 AC PO Methylprednisolone 40 MG Q12 06/18 2100 AC 06/19 IV 0815 Metoprolol Tartrate 25 MG BID 06/17 2100 AC 06/19 PO 0815 Omeprazole 40 MG 1/2H B/BREAKF/DINNER 06/17 1630 AC 06/19 PO 0527 Potassium Chloride 20 MEQ DAILY 06/18 0900 AC 06/19 PO 0815 Rivaroxaban 15 MG AT BEDTIME 06/17 2100 AC 06/18 PO 202 Tiotropium [place] 1 PUF DAILY 06/18 0900 AC 06/19 INH 0815 Vancomycin HCl 1,000 MG DAILY@1400 06/18 1400 AC 06/18 Sodium Chloride 250 ML IV 1614 Vital Signs & I&O Last 24 Hrs of Vitals and I&O: Vital Signs Date Time Temp Pulse Resp B/P B/P Pulse O2 O2 Flow FiO2 Mean Ox Delivery Rate 06/19 1123 95 Nasal 4.0L Cannula 06/19 0815 80 120/64 06/19 0800 95 Nasal 4.0L Cannula 06/19 0655 97.8 80 20 120/64 95 CPAP 06/19 0051 83 96 06/19 0000 94 Nasal 4.0L Cannula 06/18 2300 85 98 06/18 2225 98.3 76 18 130/72 98 Nasal 4.0L Cannula 06/18 2023 130/70 06/18 1557 Nasal 4.0L Cannula 06/18 1555 97 Nasal 4.0L Cannula 06/18 1321 97.8 98 20 118/68 95 Nasal 4.0L Cannula 06/18 1250 98.0 98 20 120/72 95 Nasal 4.0L Cannula Intake & Output 06/19 1600 06/19 0800 06/19 0000 Intake Total 120 120 Output Total 200 Balance -80 120 Intake, Oral 120 120 Output, Urine 200 Patient 163 lb Weight Weight Bed scale Measurement Method Exam Other Physical Findings: gen - awake and alert head/neck - high flow nasal cannul cvs -s1, s2 lungs - b/l rare rhonchi abd - soft, bs+ ext trace edema Results Last 24 Hrs of Lab Results: Laboratory Tests 06/19/18 0600: Anion Gap 15, Estimated GFR 30 L, BUN/Creatinine Ratio 39.5 H, CBC w Diff Pending, WBC Pending, RBC Pending, Hgb Pending, Hct Pending, MCV Pending, MCH Pending, MCHC Pending, RDW Pending, Plt Count Pending, MPV Pending, Gran % Pending, Lymphocytes % Pending, Monocytes % Pending, Eosinophils % Pending, Basophils % Pending, Absolute Granulocytes Pending, Absolute Lymphocytes Pending , Absolute Monocytes Pending, Absolute Eosinophils Pending, Absolute Basophils Pending Impression/Plan Impression/Plan Impression/Plan: Impression 68 year old man * acute exacerbation of COPD - atelectasis vs. pneumonia - hx of MRSA - currently treated for health care associated pathogens * chronic hypoxemic respiratory failure * Hx of BHARATHI * anemia Plan -as of 06/20 - begin 40mg prednisone po - with a taper by 10mg every 2 days -Ensure pt has a CXR today 06/19 -trc/nebs, continue inhalers -sputum cx to tailor course of antibiotics - hx of MRSA -anemia per primary team -no Diamox at this time - it can increase respiratory drive -continue NIV BiPAP nocturnally DVT prophylaxis at all times
--- NOTE | 2018-06-19 12:12 | RADIOLOGY REPORT ---
EXAMINATION: XR CHEST CLINICAL INFORMATION: Shortness of breath. COMPARISON: Chest done on 06/17/2018 at 10:55 AM. TECHNIQUE: 2 views , 3 images of the chest were obtained. FINDINGS: Mild hyperinflated lung field is present bilaterally. The cardiomediastinal silhouette is enlarged. Mild pulmonary venous congestion is present. Stable presumed pleural parenchymal scar-related changes are noted at both lung bases (right greater than left). Overall, no significant change. IMPRESSION: No significant change since 06/17/2018.
--- NOTE | 2018-06-19 14:52 | ULTRASOUND REPORT ---
EXAMINATION: US RETROPERITONEAL COMPLETE (RENAL) CLINICAL INFORMATION: Acute renal insufficiency. Evaluate for obstruction. COMPARISON: CT images of abdomen, 12/25/2017. Renal ultrasound from 05/03/2017. TECHNIQUE: Real-time imaging of the kidneys and bladder. FINDINGS: RIGHT KIDNEY: 11.8 x 6.1 x 6 cm (SAG x AP x TRV). The kidney has normal size, cortical thickness and echotexture; the corticomedullary differentiation is maintained. Trace perinephric fluid/edema is noted, similar compared to 12/25/2017. No nephrolithiasis or hydronephrosis. LEFT KIDNEY: 11.1 x 6.5 x 5 cm (SAG x AP x TRV). The kidney has normal cortical thickness and echotexture. The corticomedullary differentiation is maintained. There is a 0.3 x 0.7 cm calyceal stone in the interpolar region. Also, there is a small, 0.8 cm echogenic focus with twinkle artifact in cortex of the interpolar region; this appears to correspond to the location of a small cortical cyst observed on 12/25/2017. No hydronephrosis. BLADDER: The urinary bladder is distended to an estimated volume of 162 mL. No evidence of bladder wall thickening, calculus or diverticulum. IMPRESSION: 1. No evidence of urinary tract obstruction. 2. There is a 0.3 x 0.7 cm calculus of the mid left kidney. 3. There is likely minimal calcification and/or proteinaceous material within a small, 0.8 cm cyst of the interpolar region of the left kidney. 4. Urinary bladder is unremarkable.
[2018-06-19 15:11] VITALS: BP 120/68
[2018-06-19 21:13] VITALS: BP 108/68
[2018-06-20 06:39] VITALS: BP 108/70
--- NOTE | 2018-06-20 06:40 | PN- Housestaff ---
See Addendum Subjective Follow-up For: Acute COPD exacerbation Pneumonia Insulin-dependent diabetes mellitus Acute on chronic renal failure Complaints: poor sleep last night Review of Systems Constitutional: Reports: no symptoms. Objective Last 24 Hrs of Vital Signs/I&O Vital Signs Date Time Temp Pulse Resp B/P B/P Pulse O2 O2 Flow FiO2 Mean Ox Delivery Rate 06/20 0845 80 114/78 06/20 0804 94 Nasal 4.0L Cannula 06/20 0800 100 Nasal 4.0L Cannula 06/20 0639 97.8 100 20 108/70 96 Nasal 4.0L Cannula 06/20 0016 81 97 06/20 0000 BIPAP 06/19 2252 80 94 06/19 2126 97 108/68 06/19 2113 98.6 97 18 96 Nasal 4.0L Cannula 06/19 1633 96 Nasal 4.0L Cannula 06/19 1600 Nasal 4.0L Cannula 06/19 1511 98.2 78 20 120/68 96 Nasal 4.0L Cannula 06/19 1123 95 Nasal 4.0L Cannula Intake & Output 06/20 1600 06/20 0800 06/20 0000 Intake Total 730 Output Total 350 400 Balance -350 330 Intake, IV 250 Intake, Oral 480 Output, Urine 350 400 Patient 168 lb Weight Weight Bed scale Measurement Method Physical Exam General Appearance: Alert, Oriented X3, Cooperative, No Acute Distress Skin: He was admitted with two bedsores on sacral area, stage 2 Lungs: minimal boilateral ronchi Extremities: 1+ pitting edema Assessment/Plan Assessment: 68-year-old male with acute COPD exacerbation, congestive heart failure, and diabetes mellitus. Hb is improved from 6.7 to 7.5 to 7.8 and hematocrit to 24.5. His creatinine has increased from 2.0-2.2-2.5 in 3 days, we asked for a consult with business affairs manager to evaluate acute kidney injury. The patient reports onychomycosis in 2 of his right hand fingernails and most of lower extremity fingernails. This will be managed as an outpatient. Dr. So has visited the patient this morning and has advised to stop steroids and complete the antibiotic course. Problem List: 1. COPD exacerbation 2. CHF (congestive heart failure) 3. Pneumonia 4. M[place]ISON (acute kidney injury) Pain Ratin Pain Location: NA Pain Goal: Remain pain free Pain Plan: NA Tomorrow's Labs & Rationales: UA, Spot urine, CBC, BEP Consulting Request: Consulting Specialty: Nephrology Consulting Physician: Dr. Hernandez Reason for Consult: Inceased Cr., [place]?
[2018-06-20 07:54] LABS: ABSOLUTE BASOPHIL COUNT 0 /CUMM (0.0-0.2); ABSOLUTE EOSINOPHIL COUNT 0 /CUMM (0.0-0.7); ABSOLUTE GRANULOCYTE CT 9.5 /CUMM (1.4-6.5); ABSOLUTE LYMPH COUNT 0.4 /CUMM (1.2-3.4); ABSOLUTE MONOCYTE COUNT 0.5 /CUMM (0.10-0.60); BASOPHIL % 0 % (0.0-2.0); EOSINOPHIL % 0 % (0-5); HEMATOCRIT 24.3 % (42-52); MEAN CORPUSCULAR HGB 29.3 PG (27.0-31.0); MEAN CORPUSCULAR VOLUME 91.5 FL (80.0-94.0); MEAN PLATELET VOLUME 8.8 FL (7.4-10.4); PLATELET COUNT 195 /CUMM (130-400); RBC DISTRIBUTION WIDTH 17.5 % (11.5-14.5); RED BLOOD CELL CT 2.66 /CUMM (4.70-6.10); WHITE BLOOD CELL COUNT 10.4 /CUMM (4.8-10.8)
[2018-06-20 08:44] LABS: GRANULOCYTE % 91.9 % (42.2-75.2)
--- NOTE | 2018-06-20 08:56 | PN- Pulmonary ---
Subjective HPI/Critical Care Issues: pt seen and examined 94% on 4L afebrile hgb improved 7.8 sputum cx GNR, yeast, staph aureus Objective Current Medications: Current Medications Sig/Eve Start time Last Medication Dose Route Stop Time Status Admin Acetaminophen 650 MG Q6-PRN PRN 06/17 1615 AC PO Albuterol Sulfate 3 ML EVERY 4 HRS/AWAKE 06/18 0800 AC 06/20 INH 0801 Albuterol Sulfate 1 PUF Q4H PRN 06/17 1615 AC INH Albuterol Sulfate 3 ML Q6H PRN 06/17 1615 AC INH Aspirin Buffered 81 MG DAILY 06/18 09 AC 06/20 PO 0845 Atorvastatin Calcium 10 MG DAILY 06/18 09 AC 06/20 PO 0845 Budesonide/ 2 PUF BID 06/17 2100 AC 06/20 Formoterol Fumarate INH 0846 Ceftazidime 1,000 MG DAILY@1330 06/18 1330 DC 06/19 IV 1232 Cyanocobalamin 1,000 MCG DAILY 06/18 09 AC 06/20 PO 0845 Diltiazem HCl 240 MG DAILY 06/18 0900 AC 06/20 PO 0845 Ferrous Sulfate 325 MG TID 06/17 2100 AC 06/20 PO 0845 Guaifenesin 10 ML .STK-MED ONE 06/19 2348 DC PO 06/19 2349 Guaifenesin 10 ML Q4P PRN 06/17 1600 AC 06/19 PO 2349 Insulin Aspart 0 TIDAC 06/17 1700 AC 06/20 SC 0846 Insulin Detemir 10 UNITS 0900 06/18 0900 AC 06/20 SC 0846 Insulin Detemir 8 UNITS AT BEDTIME 06/17 2100 06/19 SC 2126 Loperamide HCl 4 MG BID PRN 06/17 1615 AC PO Methylprednisolone 40 MG Q12 06/18 2100 MS 06/19 IV 0815 Metoprolol Tartrate 25 MG BID 06/17 2100 AC 06/20 PO 0845 Omeprazole 40 MG 1/2H B/BREAKF/DINNER 06/17 1630 AC 06/20 PO 0533 Patient Medication 1 ED ONE ONE 06/19 1615 DC 06/19 Teaching ED 06/19 1616 1717 Potassium Chloride 20 MEQ DAILY 06/18 09 AC 06/20 PO 0845 Prednisone 10 MG DAILY 06/26 900 AC PO 08/09 0859 Prednisone 20 MG DAILY 06/24 900 AC PO 06/26 859 Prednisone 30 MG DAILY 06/22 900 AC PO 06/24 859 Prednisone 40 MG DAILY 06/20 900 CAN PO 06/28 859 Prednisone 40 MG DAILY 06/20 900 AC PO 06/22 859 Rivaroxaban 15 MG AT BEDTIME 06/17 2100 AC 06/19 PO 2153 Sodium Chloride 2 SPRAY Q4P PRN 06/19 1215 AC 06/19 CESAR 1718 Tiotropium [place] 1 PUF DAILY 06/18 09 AC 06/20 INH 0846 Vancomycin HCl 1,000 MG 1600 06/19 1600 AC 06/19 Sodium Chloride 250 ML IV 1716 Vancomycin HCl 1,000 MG DAILY@1400 06/18 1400 DC 06/18 Sodium Chloride 250 ML IV 1614 Vital Signs & I&O Last 24 Hrs of Vitals and I&O: Vital Signs Date Time Temp Pulse Resp B/P B/P Pulse O2 O2 Flow FiO2 Mean Ox Delivery Rate 06/20 0845 80 114/78 06/20 0804 94 Nasal 4.0L Cannula 06/20 800 100 Nasal 4.0L Cannula 06/20 0639 97.8 100 20 108/70 96 Nasal 4.0L Cannula 06/20 0016 81 97 06/20 0000 BIPAP 06/19 2252 80 94 06/19 2126 97 108/68 06/19 2113 98.6 97 18 108/68 96 Nasal 4.0L Cannula 06/19 1633 96 Nasal 4.0L Cannula 06/19 1600 Nasal 4.0L Cannula 06/19 1511 98.2 78 20 120/68 96 Nasal 4.0L Cannula 06/19 1123 95 Nasal 4.0L Cannula Intake & Output 06/20 1600 06/20 0800 06/20 0000 Intake Total 730 Output Total 350 400 Balance -350 330 Intake, IV 250 Intake, Oral 480 Output, Urine 350 400 Patient 168 lb Weight Weight Bed scale Measurement Method Exam Other Physical Findings: gen - awake and alert head/neck - high flow nasal cannul cvs -s1, s2 lungs - b/l rare rhonchi abd - soft, bs+ ext trace edema Results Last 24 Hrs of Lab Results: Laboratory Tests 06/20/18 0600: Anion Gap 15, Estimated GFR 26 L, BUN/Creatinine Ratio 36.4 H, CBC w Diff NO MAN DIFF REQ, RBC 2.66 L, MCV 91.5, MCH 29.3, MCHC 32.0 L, RDW 17.5 H, MPV 8.8, Gran % 91.9 H, Lymphocytes % 3.4 L, Monocytes % 4.7, Eosinophils % 0, Basophils % 0, Absolute Granulocytes 9.5 H, Absolute Lymphocytes 0.4 L, Absolute Monocytes 0.5, Absolute Eosinophils 0, Absolute Basophils 0 Impression/Plan Impression/Plan Impression/Plan: Impression 68 year old man * IMPROVING - acute exacerbation of COPD * sputum with GNR, Staph Aureus - atelectasis vs. pneumonia - hx of MRSA - currently treated for health care associated pathogens * chronic hypoxemic respiratory failure * Hx of BHARATHI * stable anemia Plan -STOP steroids for now -trc/nebs, continue inhalers -GNR/staph in sputum - cont abx until cultures return and will tailor -anemia per primary team -no Diamox at this time - it can increase respiratory drive -continue NIV BiPAP nocturnally DVT prophylaxis at all times
--- NOTE | 2018-06-20 13:05 | Cons- Nephrology ---
General Information and HPI Consulting Request Date of Consult: 06/20/18 Requested By: Wayne Hernandez MD Reason for Consult: MADISON Source of Information: patient, old records Exam Limitations: clinical condition, poor historian History of Present Illness: I have been asked to see this 68-year-old man because of a rising serum creatinine. He was admitted on 06/17 with exacerbation of COPD complaining primarily of shortness of breath. Creatinine at time of admission was 2.4, falling to 2.0 before rising again to 2.5 today prompting this consultation request. In reviewing previous data, his creatinine has often been above 2 since February of this year, at times well above 3. The last normal serum creatinine documented was 0.9 in August 2016. He has been seen by our group several times in the past including in 2014 at [facility] and in February of this year here at [facility]. In February, there was a bout of MADISON which was felt to be on the basis of contrast nephropathy with a serum creatinine at that time that peaked at 3.6. At discharge it had gone down to 2.3. Urine analyses have not shown any significant proteinuria in the past. He currently has not been exposed to any parenteral contrast but did receive 2 doses of vancomycin 1000 mg each on 06/18 and 06/19. He was also on diuretics ( acetazolamide, metolazone and furosemide) at time of admission, which were since discontinued, and on a PPI which has been continued. Renal ultrasound showed no evidence of obstruction. Blood and urine cultures have been negative while sputum culture has grown Klebsiella, staph aureus and yeast. He does have a history of COPD and MRSA pneumonia. Past medical history is positive as noted above. In addition there is a history of congestive heart failure with reduced EF, atrial fibrillation on Xarelto, COPD on home O2 and BiPAP at night, BHARATHI, diabetes mellitus, hypertension, hyperlipidemia, GERD, abdominal aneurysm, prostate CA, MADISON secondary to contrast nephropathy and CKD as noted above. Medications: See below Allergies: No known drug allergies Family history: Positive for COPD and heart disease in his parents, negative for kidney disease Social history: Former smoker without history of alcohol or drug abuse. Allergies/Medications Allergies: Coded Allergies: No Known Allergies (04/10/18) Home Med List: Acetazolamide 500 MG CAPSULE.ER 1 CAP PO BID UNKNOWN (Reported) Albuterol Sulfate (Proair Hfa) 90 MCG HFA.AER.AD 1 PUF INH Q4H PRN SHORTNESS OF BREATH (Reported) Albuterol Sulfate 2.5 MG/3 ML (0.083 %) VIAL.NEB 1 Vial INH/ABILIO Q6H PRN SHORTNESS OF BREATH (Reported) Aspirin (Ecotrin*) 81 MG TABLET.DR 1 TAB PO DAILY HEART/BLOOD (Reported) Atorvastatin Calcium 10 MG TABLET 1 TAB PO DAILY CHOLESTEROL (Reported) Budesonide/Formoterol Fumarate (Symbicort 160-4.5 Mcg Inhaler) 160 MCG-4.5 MCG/ ACTUATION HFA.AER.AD 2 PUF INH BID SHORTNESS OF BREATH (Reported) Cyanocobalamin (Vitamin B-12) (B-12) 1,000 MCG TABLET 1 TAB PO DAILY VITAMIN SUPPORT (Reported) Digoxin (Lanoxin) 125 MCG TABLET 1 TAB PO Q48@1700 AFIB Diltiazem HCl (Cardizem Cd) 240 MG CAP.ER.24H 240 MG PO DAILY ATRIAL FIB Ferrous Sulfate 325 MG TABLET. 325 MG PO BID Iron supplement Furosemide (Lasix) 40 MG TABLET 1 TAB PO BID DIURETIC (Reported) Insulin Aspart (Novolog) (Unknown Strength) VIAL (Unknown Dose) SC SEE SLIDING SCALE DIABETES (Reported) Insulin Detemir (Levemir) 100 UNIT/ML VIAL 10 UNITS SC 0900 DM Insulin Detemir (Levemir) 100 UNIT/ML VIAL 8 UNITS SC AT BEDTIME DM Loperamide HCl (Loperamide) 2 MG CAPSULE 2 CAP PO BID PRN ANTI-DIARRHEAL ( Reported) Metformin HCl 1,000 MG TABLET 1 TAB PO QAM DM (Reported) Metolazone 2.5 MG TABLET 1 TAB PO TID DIURETIC (Reported) Metoprolol Tartrate 25 MG TABLET 1 TAB PO BID AFIB Mometasone Furoate (Nasonex) 50 MCG SPRAY.PUMP 1 SPRAY [place]B DAILY ALLERGIES ( Reported) Pantoprazole Sodium (Protonix) 40 MG TABLET.DR 1 TAB PO DAILY ACID REFLUX ( Reported) Potassium Chloride 20 MEQ TAB.ER.PRT 1 TAB PO DAILY SUPPLEMENT (Reported) Prednisone 10 MG TABLET 1 TAB PO DAILY COPD (Reported) Prednisone 10 MG TABLET 1 TAB PO BID RA As below Take 04/24-04/25 20 MG 04/26 onwards 10 MG daily. Rivaroxaban (Xarelto) 20 MG TABLET 1 TAB PO DAILY BLOOD THINNER (Reported) with food Tiotropium [place] (Spiriva) 18 MCG CAP.W.DEV 1 CAP INH DAILY SHORTNESS OF BREATH (Reported) Review of Systems Review of Systems Constitutional: Reports: see HPI, weakness. EENTM: Reports: no symptoms. Cardiovascular: Reports: see HPI. Respiratory: Reports: see HPI, cough, short of breath, sputum production. GI: Reports: no symptoms. Genitourinary: Reports: no symptoms. 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 FATHER, ; Cause: Myocardial infarct. SISTER, ; Cause: Myocardial infarct. Psychosocial History Where Do You Live? Home Who Do You Live With? spouse Services at Home: None Primary Language: Armenian Smoking Status: Former Smoker (quit 5 years ago) ETOH Use: denies use Illicit Drug Use: denies illicit drug use Living Will? unknown Power of Trim Carpenter/HCP? unknown Functional Ability ADLs Independent: dressing, eating, toileting, bathing. Ambulation: independent IADLs Independent: shopping, housework, finances, food prep, telephone, transportation , medication admin. Exam & Diagnostic Data Vital Signs and I&O Vital Signs Date Time Temp Pulse Resp B/P B/P Pulse O2 O2 Flow FiO2 Mean Ox Delivery Rate 06/20 0845 80 114/78 06/20 0804 94 Nasal 4.0L Cannula 06/20 0800 100 Nasal 4.0L Cannula 06/20 0639 97.8 100 20 108/70 96 Nasal 4.0L Cannula 06/20 0016 81 97 06/20 0000 BIPAP 06/19 2252 80 94 06/19 2126 97 108/68 06/193 98.6 97 18 96 Nasal 4.0L Cannula 06/19 1633 96 Nasal 4.0L Cannula 06/19 1600 Nasal 4.0L Cannula 06/19 1511 98.2 78 20 120/68 96 Nasal 4.0L Cannula Intake & Output 06/20 04006/18 040 Intake Total 730 600 380 454 9402 Output Total 350 400 500 500 550 Balance -350 330 100 120 200 450 Intake, IV 250 0 750 Intake, Oral 480 600 120 700 250 Number 0 Bowel Movements Output, Urine 350 400 500 500 550 Patient 168 lb 163 lb 170 lb 159 lb Weight Weight Bed scale Bed scale Bed scale Bed scale Measurement Method Physical Exam: General: Chronically ill-appearing, lethargic white male in NAD Skin: Multiple ecchymoses diffusely without rash or jaundice HEENT: Conjunctivae pale, sclerae anicteric, mucous membranes dry Neck: Without masses or thyromegaly, no supraclavicular or cervical adenopathy Chest: Poor air entry bilaterally with scattered rhonchi Heart: Irregular rhythm without S3 or rub Abdomen: Soft and nontender without palpable masses or organomegaly Extremities: Without cyanosis or edema Neuro: Lethargic with some confusion although able to answer some questions appropriately, no focal findings, +asterixis with some spontaneous myoclonic activity noted Assessment/Plan Assessment/Recommendations Assessment: 68-year-old man with CKD manifested by baseline creatinine in the mid 2's, without proteinuria in the past, in the setting of diabetes mellitus, hypertension, COPD and congestive heart failure on multiple diuretics. He has now developed a rising serum creatinine in the setting of COPD exacerbation and possible pneumonia. My clinical impression at this time is that he is somewhat volume depleted. Fluid balance has been positive since admission but only barely so. Blood pressures have been relatively low considering his history of hypertension. There is been no exposure to contrast and obstruction has essentially been ruled out on imaging study. Diuretics have been held but he is getting vancomycin at this time. Interstitial nephritis secondary to PPI therapy is also possible but unlikely. Recommendations: 1. Please obtain a urinalysis and a spot urine for protein to creatinine ratio as well as to calculate a FENa. 2. If vancomycin to be continued, need to monitor levels daily 3. Suggest careful volume resuscitation using IV normal saline at 100 cc/h 4. Monitor intake and output, chemistries daily Thank you. We will follow along with you.
[2018-06-20 13:47] VITALS: BP 110/62
[2018-06-20 22:15] VITALS: BP 104/66
--- NOTE | 2018-06-21 06:31 | PN- Housestaff ---
See Addendum Subjective Follow-up For: Acute COPD exacerbation Pneumonia IDDM Acute on chronic renal failure Subjective: I visited the patient at 7:15 in the morning, he believes that he needs his steroids back since his breathing is worsened. He also mentioned that he had blood sugar less than 50 at around 4 in the morning. He had tried to call Dr. So this morning to talk to him about his breathing and getting back to steroids. He also mentioned that he feels weak and is not able to get out of bed. Review of Systems Constitutional: Reports: see HPI, weakness. Respiratory: Reports: short of breath. Objective Last 24 Hrs of Vital Signs/I&O Vital Signs Date Time Temp Pulse Resp B/P B/P Pulse O2 O2 Flow FiO2 Mean Ox Delivery Rate 06/21 0701 97.8 82 20 104/60 93 Nasal 4.0L Cannula 06/21 0129 71 95 06/21 0000 BIPAP 06/20 2243 78 92 06/20 2215 98.6 86 18 104/66 99 Nasal 4.0L Cannula 06/20 2133 72 110/64 06/20 1610 95 Nasal 4.0L Cannula 06/20 1600 Nasal 4.0L Cannula 06/20 1347 98.2 98 20 110/62 100 Nasal 4.0L Cannula 06/20 0845 80 114/78 06/20 0804 94 Nasal 4.0L Cannula 06/20 0800 100 Nasal 4.0L Cannula Intake & Output 06/21 0800 06/21 0000 01 1600 Intake Total 840 480 970 Output Total 200 300 425 Balance 640 180 545 Intake, IV 600 10 Intake, Oral 240 480 960 Number 1 Bowel Movements Output, Urine 200 300 425 Patient 168 lb Weight Physical Exam General Appearance: Alert, Oriented X3, Cooperative, No Acute Distress Skin: No Rashes Skin Temp/Moisture Exam: Warm/Dry Sepsis Skin Exam (color): Normal for Ethnicity HEENT: Atraumatic Neck: Supple Cardiovascular: Regular Rate, Normal S1, Normal S2 Lungs: Bilat ronchi, minimal increased respiratory effort comparing to yesterday Abdomen: Normal Bowel Sounds, Soft, No Tenderness Neurological: Normal Speech Extremities: No Clubbing, No Cyanosis Assessment/Plan Assessment: 68-year-old male with acute COPD exacerbation, congestive heart failure, and diabetes mellitus. He believes that since stopping his steroids from yesterday his breathing is worse in, in physical examination increased labor of breathing is seen with O2 saturation of 90-91, and respiratory rate of 24. Acute COPD exacerbation: He complains about shortness of breath through last night, he also had decreased breathing sound. Plan: Prednisolone is restarted per pulmonology consult. Pneumonia: Lower respiratory cultures were positive for Staph. areus (non-MRSA) and Klebsiella pneumonia. Plan: Antibiotic is changed to Cephalexin 500 BID PO. Anemia: Has been transfused before, H&H have stayed stable at 7.8. Plan: We will follow H&H. He can follow as an outpatient later for more evaluation for the source of blood loss. DM on insulin: Early in the morning he had a low blood sugar, which was probably caused by holding the predniosolone, Now that the prednisolone is restarted we will not change the dose of insulin. Plan: We will continue the same dose of insulin and continue the hold of metformin due to decreased renal function. Acute on chronic renal failure (Stage 4): Today creatinine has decreased from 2.5 to 2.3. Plan: We will continue IV normal saline at 75cc/hr and avoid renal toxic medications (NSAIDS and metformin). Albumin was started per nephrology consult. We will recheck BEP tomorrow morning. Problem List: 1. COPD exacerbation 2. Pneumonia 3. Anemia 4. Diabetes mellitus 5. MADISON (acute kidney injury) 6. Chronic renal failure Pain Ratin Pain Location: NA Pain Goal: Remain pain free Pain Plan: NA Tomorrow's Labs & Rationales: BEP to follow renal function Consulting Request: Consulting Specialty: Nephrology Consulting Physician: Dr. Hernandez Reason for Consult: Inceased Cr., MADISON?
[2018-06-21 07:01] VITALS: BP 104/60
[2018-06-21 08:18] LABS: ABSOLUTE BASOPHIL COUNT 0 /CUMM (0.0-0.2); ABSOLUTE EOSINOPHIL COUNT 0 /CUMM (0.0-0.7); ABSOLUTE GRANULOCYTE CT 9.4 /CUMM (1.4-6.5); ABSOLUTE LYMPH COUNT 0.5 /CUMM (1.2-3.4); ABSOLUTE MONOCYTE COUNT 0.5 /CUMM (0.10-0.60); BASOPHIL % 0 % (0.0-2.0); EOSINOPHIL % 0.4 % (0-5); HEMATOCRIT 23.8 % (42-52); MEAN CORPUSCULAR HGB 29.9 PG (27.0-31.0); MEAN CORPUSCULAR HGB CONC 32.8 G/DL (33.0-37.0); MEAN CORPUSCULAR VOLUME 91.1 FL (80.0-94.0); MEAN PLATELET VOLUME 8.6 FL (7.4-10.4); RBC DISTRIBUTION WIDTH 17.5 % (11.5-14.5); RED BLOOD CELL CT 2.61 /CUMM (4.70-6.10); WHITE BLOOD CELL COUNT 10.4 /CUMM (4.8-10.8)
[2018-06-21 09:19] LABS: GRANULOCYTE % 90.3 % (42.2-75.2); PLATELET COUNT 186 /CUMM (130-400)
--- NOTE | 2018-06-21 10:39 | PN- Pulmonary ---
Subjective HPI/Critical Care Issues: pt seen and examined felt worse without steroids wants to resume fatigue + dyspnea with exertion Objective Current Medications: Current Medications Sig/Eve Start time Last Medication Dose Route Stop Time Status Admin Acetaminophen 650 MG Q6-PRN PRN 06/17 1615 AC PO Albuterol Sulfate 3 ML EVERY 4 HRS/AWAKE 06/18 0800 AC 06/21 INH 0750 Albuterol Sulfate 1 PUF Q4H PRN 06/17 1615 AC INH Albuterol Sulfate 3 ML Q6H PRN 06/17 1615 AC INH Aspirin Buffered 81 MG DAILY 06/18 09 AC 06/21 PO 0900 Atorvastatin Calcium 10 MG DAILY 06/18 09 AC 06/21 PO 0900 Budesonide/ 2 PUF BID 06/17 2100 AC 06/21 Formoterol Fumarate INH 0903 Cephalexin 500 MG BID 06/20 2100 AC 06/21 PO 0900 Cyanocobalamin 1,000 MCG DAILY 06/18 0900 AC 06/21 PO 0859 Diltiazem HCl 240 MG DAILY 06/18 09 AC 06/21 PO 0900 Ferrous Sulfate 325 MG TID 06/17 2100 AC 06/21 PO 0900 Guaifenesin 10 ML .STK-MED ONE 06/20 1918 DC PO 06/20 191 Guaifenesin 10 ML Q4P PRN 06/17 1600 AC 06/20 PO 192 Insulin Aspart 0 TIDAC 06/17 1700 AC 06/20 SC 0846 Insulin Detemir 10 UNITS 06/18 0900 AC 06/21 SC 0859 Insulin Detemir 8 UNITS AT BEDTIME 06/17 2100 06/20 SC 2134 Loperamide HCl 4 MG BID PRN 06/17 1615 AC PO Metoprolol Tartrate 25 MG BID 06/17 2100 AC 06/21 PO 0859 Omeprazole 40 MG 1/2H B/BREAKF/DINNER 06/17 1630 AC 06/21 PO 0547 Potassium Chloride 20 MEQ DAILY 06/18 09 AC 06/21 PO 0900 Prednisone 30 MG ONE TIME ONE 06/21 09 DC PO 06/21 0901 Rivaroxaban 15 MG AT BEDTIME 06/17 2100 AC 06/20 PO 2133 Sodium Chloride 1,000 ML Q10H 06/21 0900 AC 06/21 IV 0903 Sodium Chloride 1,000 ML Q10H 06/20 2230 DC 06/20 IV 2300 Sodium Chloride 2 SPRAY Q4P PRN 06/19 1215 AC 06/19 CESAR 1718 Tiotropium [place] 1 PUF DAILY 06/18 0900 AC 06/21 INH 0903 Vancomycin HCl 1,000 MG 1600 06/19 1600 DC 06/19 Sodium Chloride 250 ML IV 1716 Vital Signs & I&O Last 24 Hrs of Vitals and I&O: Vital Signs Date Time Temp Pulse Resp B/P B/P Pulse O2 O2 Flow FiO2 Mean Ox Delivery Rate 06/21 0859 82 104/60 06/21 0752 91 Nasal 5.0L Cannula 06/21 0701 97.8 82 20 104/60 93 Nasal 4.0L Cannula 06/21 0129 71 95 06/21 0000 BIPAP 06/20 2243 78 92 06/20 2215 98.6 86 18 104/66 99 Nasal 4.0L Cannula 06/20 2133 72 110/64 06/20 1610 95 Nasal 4.0L Cannula 06/20 1600 Nasal 4.0L Cannula 06/20 1347 98.2 98 20 110/62 100 Nasal 4.0L Cannula Intake & Output 06/21 1600 06/21 0800 06/21 0000 Intake Total 840 480 Output Total 200 300 Balance 640 180 Intake, IV 600 Intake, Oral 240 480 Output, Urine 200 300 Exam Other Physical Findings: gen - awake and alert head/neck - o2 cvs -s1, s2 lungs - b/l rare rhonchi abd - soft, bs+ ext trace edema Results Last 24 Hrs of Lab Results: Laboratory Tests 06/21/18 0605: Anion Gap 9, Estimated GFR 28 L, BUN/Creatinine Ratio 38.3 H, CBC w Diff NO MAN DIFF REQ, RBC 2.61 L, MCV 91.1, MCH 29.9, MCHC 32.8 L, RDW 17.5 H, MPV 8.6, Gran % 90.3 H, Lymphocytes % 4.9 L, Monocytes % 4.4, Eosinophils % 0.4, Basophils % 0, Absolute Granulocytes 9.4 H, Absolute Lymphocytes 0.5 L, Absolute Monocytes 0.5, Absolute Eosinophils 0, Absolute Basophils 0 06/20/18 1750: Urine Color STRAW, Urine Clarity CLEAR, Urine pH 6.0, Ur Specific [place] 1.015, Urine Protein NEG, Urine Ketones NEG, Urine Nitrite NEG, Urine Bilirubin NEG, Urine Urobilinogen 0.2, Ur Leukocyte Esterase NEG, Ur Microscopic EXAM NOT REQUIRED, Urine Hemoglobin NEG, Urine Glucose NEG 06/20/18 1750: Ur Random Creatinine 49.8, Ur Random Sodium 10 L, Ur Random Potassium 36.7, Fraction Sodium Excret 0.4 Impression/Plan Impression/Plan Impression/Plan: Impression 68 year old man * IMPROVING - acute exacerbation of COPD * sputum with Klebsiella, Staph Aureus - atelectasis vs. pneumonia - * chronic hypoxemic respiratory failure * Hx of BHARATHI * stable anemia Plan -resume steroids - prednisone 30x2, 20x2, 10x2 then stop -trc/nebs, continue inhalers -Klebsiella/staph in sputum - cont abx until cultures return and will tailor -anemia per primary team -no Diamox at this time - it can increase respiratory drive -continue NIV BiPAP nocturnally DVT prophylaxis at all times
[2018-06-21 14:04] VITALS: BP 104/52
--- NOTE | 2018-06-21 15:56 | PN- Nephrology ---
Assessment/Plan Nephrology Assessment: 1. CKD stage III secondary to hypertensive/diabetic nephrosclerosis 2. MADISON secondary to decreased renal perfusion -slightly improved 3. COPD exacerbation with possible pneumonia 4. Hypoalbuminemia with edema Suggestion: 1. Decrease IV rate to 75 cc/h 2. 25% albumin 12.5 g IV every 8 hours 6 doses Subjective Subjective: Much more alert and interactive today. Systolic blood pressures remain relatively low. Intake/Output 1450/1075. Creatinine down slightly to 2.3 ( baseline 1.6-2.0), lytes okay. Hemoglobin stable at 7.8. Last serum albumin 3.1 on 06/17. Urine analysis shows no protein by dipstick. Fractional excretion of sodium 0.4%. Apparently now off vancomycin. Objective Vital Signs and I&Os Vital Signs Date Time Temp Pulse Resp B/P B/P Pulse O2 O2 Flow FiO2 Mean Ox Delivery Rate 06/21 1404 97.3 73 18 104/52 99 Nasal 5.0L Cannula 06/21 0859 82 104/60 06/21 0800 92 Nasal 5.0L Cannula 06/21 0752 91 Nasal 5.0L Cannula 06/21 0701 97.8 82 20 104/60 93 Nasal 4.0L Cannula 06/21 0129 71 95 / 0000 BIPAP 06/20 2243 78 92 06/20 2215 98.6 86 18 104/66 99 Nasal 4.0L Cannula 06/20 2133 72 110/64 06/20 1610 95 Nasal 4.0L Cannula 06/20 1600 Nasal 4.0L Cannula Intake & Output 06/21 1600 06/21 0400 06/20 1600 06/20 04006/19 1600 06/19 0400 Intake Total 1640 480 970 730 600 120 Output Total 900 300 775 400 500 Balance 740 180 195 330 100 120 Intake, IV 600 10 250 0 Intake, Oral 1040 480 960 480 600 120 Number 1 0 Bowel Movements Output, Urine 900 300 775 400 500 Patient 168 lb 163 lb Weight Weight Bed scale Bed scale Measurement Method Physical Exam: General: Chronically ill-appearing, lwhite male in NAD Skin: Multiple ecchymoses diffusely without rash or jaundice HEENT: Conjunctivae pale, sclerae anicteric, mucous membranes dry Neck: Without masses or thyromegaly, no supraclavicular or cervical adenopathy Chest: Poor air entry bilaterally Heart: Irregular rhythm without S3 or rub Abdomen: Soft and nontender without palpable masses or organomegaly Extremities: Without cyanosis; +edema Neuro: Awake and alert without focal findings; no asterixis or myoclonus Results Pertinent Lab Results: Laboratory Tests 06/21 06/20 0605 1750 Chemistry Sodium (137 - 145 mmol/L) 138 Potassium (3.5 - 5.1 mmol/L) 4.3 Chloride (98 - 107 mmol/L) 98 Carbon Dioxide (22 - 30 mmol/L) 30 Anion Gap (5 - 16) 9 BUN (9 - 20 mg/dL) 88 H Creatinine (0.7 - 1.2 mg/dL) 2.3 H Estimated GFR (>60 ml/min) 28 L BUN/Creatinine Ratio (7 - 25 %) 38.3 H Hematology CBC w Diff NO MAN DIFF REQ WBC (4.8 - 10.8 /CUMM) 10.4 RBC (4.70 - 6.10 /CUMM) 2.61 L Hgb (14.0 - 18.0 G/DL) 7.8 L Hct (42 - 52 %) 23.8 L MCV (80.0 - 94.0 FL) 91.1 MCH (27.0 - 31.0 PG) 29.9 MCHC (33.0 - 37.0 G/DL) 32.8 L RDW (11.5 - 14.5 %) 17.5 H Plt Count (130 - 400 /CUMM) 186 MPV (7.4 - 10.4 FL) 8.6 Gran % (42.2 - 75.2 %) 90.3 H Lymphocytes % (20.5 - 51.1 %) 4.9 L Monocytes % (1.7 - 9.3 %) 4.4 Eosinophils % (0 - 5 %) 0.4 Basophils % (0.0 - 2.0 %) 0 Absolute Granulocytes (1.4 - 6.5 /CUMM) 9.4 H Absolute Lymphocytes (1.2 - 3.4 /CUMM) 0.5 L Absolute Monocytes (0.10 - 0.60 /CUMM) 0.5 Absolute Eosinophils (0.0 - 0.7 /CUMM) 0 Absolute Basophils (0.0 - 0.2 /CUMM) 0 Urines Urine Color (YEL,AMB,STR) STRAW Urine Clarity (CLEAR) CLEAR Urine pH (5.0 - 8.0) 6.0 Ur Specific [place] (1.001 - 1.035) 1.015 Urine Protein (NEG,<30 MG/DL) NEG Urine Ketones (NEG) NEG Urine Nitrite (NEG) NEG Urine Bilirubin (NEG) NEG Urine Urobilinogen (0.1 - 1.0 EU/dl) 0.2 Ur Leukocyte Esterase (NEG) NEG Ur Microscopic EXAM NOT REQUIRED Urine Hemoglobin (NEG) NEG Urine Glucose (N MG/DL) NEG 06/20 06/20 1750 0600 Chemistry Sodium (137 - 145 mmol/L) 141 Potassium (3.5 - 5.1 mmol/L) 4.4 Chloride (98 - 107 mmol/L) 97 L Carbon Dioxide (22 - 30 mmol/L) 29 Anion Gap (5 - 16) 15 BUN (9 - 20 mg/dL) 91 H Creatinine (0.7 - 1.2 mg/dL) 2.5 H Estimated GFR (>60 ml/min) 26 L BUN/Creatinine Ratio (7 - 25 %) 36.4 H Hematology CBC w Diff NO MAN DIFF REQ WBC (4.8 - 10.8 /CUMM) 10.4 RBC (4.70 - 6.10 /CUMM) 2.66 L Hgb (14.0 - 18.0 G/DL) 7.8 L Hct (42 - 52 %) 24.3 L MCV (80.0 - 94.0 FL) 91.5 MCH (27.0 - 31.0 PG) 29.3 MCHC (33.0 - 37.0 G/DL) 32.0 L RDW (11.5 - 14.5 %) 17.5 H Plt Count (130 - 400 /CUMM) 195 MPV (7.4 - 10.4 FL) 8.8 Gran % (42.2 - 75.2 %) 91.9 H Lymphocytes % (20.5 - 51.1 %) 3.4 L Monocytes % (1.7 - 9.3 %) 4.7 Eosinophils % (0 - 5 %) 0 Basophils % (0.0 - 2.0 %) 0 Absolute Granulocytes (1.4 - 6.5 /CUMM) 9.5 H Absolute Lymphocytes (1.2 - 3.4 /CUMM) 0.4 L Absolute Monocytes (0.10 - 0.60 /CUMM) 0.5 Absolute Eosinophils (0.0 - 0.7 /CUMM) 0 Absolute Basophils (0.0 - 0.2 /CUMM) 0 Urines Ur Random Creatinine (mg/dL) 49.8 Ur Random Sodium (30 - 90 mmol/L) 10 L Ur Random Potassium (mmol/L) 36.7 Fraction Sodium Excret (<1% %) 0.4 06/19 0600 Chemistry Sodium (137 - 145 mmol/L) 142 Potassium (3.5 - 5.1 mmol/L) 4.2 Chloride (98 - 107 mmol/L) 97 L Carbon Dioxide (22 - 30 mmol/L) 30 Anion Gap (5 - 16) 15 BUN (9 - 20 mg/dL) 87 H Creatinine (0.7 - 1.2 mg/dL) 2.2 H Estimated GFR (>60 ml/min) 30 L BUN/Creatinine Ratio (7 - 25 %) 39.5 H Hematology CBC w Diff MAN DIFF ORDERED WBC (4.8 - 10.8 /CUMM) 11.1 H RBC (4.70 - 6.10 /CUMM) 2.56 L Hgb (14.0 - 18.0 G/DL) 7.5 L Hct (42 - 52 %) 23.5 L MCV (80.0 - 94.0 FL) 91.6 MCH (27.0 - 31.0 PG) 29.4 MCHC (33.0 - 37.0 G/DL) 32.1 L RDW (11.5 - 14.5 %) 17.8 H Plt Count (130 - 400 /CUMM) 183 MPV (7.4 - 10.4 FL) 9.1 Gran % (42.2 - 75.2 %) 95.7 H Lymphocytes % (20.5 - 51.1 %) 2.6 L Monocytes % (1.7 - 9.3 %) 1.7 Eosinophils % (0 - 5 %) 0 Basophils % (0.0 - 2.0 %) 0 Absolute Granulocytes (1.4 - 6.5 /CUMM) 10.6 H Segmented Neutrophils (42.2 - 75.2 %) 95 H Absolute Lymphocytes (1.2 - 3.4 /CUMM) 0.3 L Lymphocytes (20.5 - 51.1 %) 4 L Absolute Monocytes (0.10 - 0.60 /CUMM) 0.2 Absolute Eosinophils (0.0 - 0.7 /CUMM) 0 Absolute Basophils (0.0 - 0.2 /CUMM) 0 Metamyelocytes (0.0 - 1.0 %) 1 Nucleated RBCs (0.0 - 0.0 /100WBC) 1 H Platelet Estimate (ADEQUATE) ADEQUATE Hypochromic-Microcytic 1+ Basophilic Stippling 1+ Anisocytosis 1+
[2018-06-21 21:46] VITALS: BP 110/56
--- NOTE | 2018-06-22 00:46 | Event Note ---
Event Note Event Note: S: Was paged by nursing stating patient feels like he choked on something while on bipap, currently feels it, with sats 86% and HR in low 100s B: Mr Vieiar is being treated for an acute COPD exacerbation and Pneumonia, has a pertinent PMH of COPD on 4.5-5L at home with bipap at night. A: Mr Vieira says that he feels an object superior to sternal notch that is painful, dime sized. No stridor heard on throat exam, faint expiratory wheezes in all lung eckert. No objects noted in the mouth. States that he ate dinner and did not have any recent snacks but feel like the bipap pushed something down. R: Respiratory called, who gave him a neb treatment and suctioning. Sats returned to 90s, pulse in 100s. Stat portable CXR ordered. Pt feels breathing is better post neb treatment, is back on bipap. Tachycardia to 110s-120s post treatment, stat EKG ordered. Sats and heart rate normalized after repositioning of spO2 probe, coaching of breathing. Likely mucus plug. Heraclio Johnson #[id number]
--- NOTE | 2018-06-22 01:01 | RADIOLOGY REPORT ---
EXAMINATION: XR PORTABLE CHEST CLINICAL INFORMATION: 68-year-old male patient with hypoxia. "Feels like foreign body stuck in throat". COMPARISON: CT exams the chest on 05/01/2017, 02/27/2018, and 03/07/2018. Portable chest x-rays from 03/09/2018 through 06/19/2018. TECHNIQUE: Portable AP semierect view of the chest was obtained. FINDINGS: Reexamination shows the heart to remain chronically enlarged. The patient has severe emphysema particularly involving the right lower lobe. In addition, there is underlying interstitial lung disease. However, the exam suggest waxing and waning of superimposed edema in both lungs. Today, there is evidence of mild increased edema in the left upper lobe apical segment. There is chronic pleural thickening on the right. IMPRESSION: Chronic emphysema and interstitial fibrosis with superimposed edema in the left upper lobe. Cardiomegaly.
--- NOTE | 2018-06-22 06:38 | PN- Housestaff ---
See Addendum Subjective Follow-up For: Acute COPD exacerbation Pneumonia IDDM Acute on chronic renal failure Subjective: I visited the patient concerning the morning, he was complaining about last night that he had a feeling like choking-something going down his throat-with his O2 saturation decreased. EKG and chest x-ray was obtained. This morning I was informed by the nurse that the patient had one episode of vomiting while respiratory care team was present in the room, they confirm that the patient has not aspirated, and he is back to baseline condition. Review of Systems Constitutional: Reports: see HPI. Objective Last 24 Hrs of Vital Signs/I&O Vital Signs Date Time Temp Pulse Resp B/P B/P Pulse O2 O2 Flow FiO2 Mean Ox Delivery Rate 06/22 0647 97.0 98 18 142/52 93 08/ 0558 66 96 / 0349 62 94 / 0050 72 98 / 0046 85 Nasal 4.0L Cannula 06/22 0000 BIPAP 5.0L 06/21 2256 93 95 08/ 2209 76 110/56 / 2146 98.0 76 20 110/56 94 Nasal 4.0L Cannula 06/21 1610 96 Nasal 5.0L Cannula 06/21 1600 Nasal 5.0L Cannula 06/21 1404 97.3 73 18 104/52 99 Nasal 5.0L Cannula 06/21 0859 82 104/60 / 0800 92 Nasal 5.0L Cannula 06/21 0752 91 Nasal 5.0L Cannula Intake & Output 06/22 0800 08/03 0000 02 1600 Intake Total 840 800 Output Total 300 600 700 Balance 540 -600 100 Intake, IV 600 Intake, Oral 240 800 Output, Urine 300 600 700 Patient 170 lb Weight Physical Exam General Appearance: Alert, Oriented X3, Cooperative, No Acute Distress Skin: No Rashes Skin Temp/Moisture Exam: Warm/Dry Sepsis Skin Exam (color): Normal for Ethnicity Neck: Supple, No thryomegaly, No LAD Cardiovascular: Regular Rate, Normal S1, Normal S2 Lungs: Minimal Bilat ronchi Abdomen: Normal Bowel Sounds, Soft, No Tenderness Neurological: Normal Speech Extremities: No Cyanosis Assessment/Plan Assessment: Assessment: 68-year-old male with acute COPD exacerbation, congestive heart failure, and diabetes mellitus. He had a drop in O2 saturation to 86% and tachycardia in the low 100s which happened at midnight, EKG and chest x-ray was obtained, reported by radiologist was normal. The EKG did not show any change. Acute COPD exacerbation: His breathing sounds are back to baseline. Plan: Prednisolone is restarted per pulmonology consult. He is receiving acetylcysteine inhalant, RTC, and NIV BiPAP nocturnally as per experimental technician. Pneumonia: Lower respiratory cultures were positive for Staph. areus (non-MRSA) and Klebsiella pneumonia. Plan: He is on Cephalexin 500 BID PO. Anemia: There was drop in hemoglobin level from 7.8 to 7.0 (to 6.9 on recheck). Last guiac was negative. Plan: Transfuse 1 unit of PRBC and recheck after transfusion. DM on insulin: Blood sugar level has been controlled. Plan: We will continue the same dose of insulin and continue the hold of metformin due to decreased renal function. Acute on chronic renal failure (Stage 4): Today creatinine has decreased from 2.5 to 2.3 to 1.9 which is the baseline. Plan: We have stopped IV normal saline and we will avoid renal toxic medications (NSAIDS and metformin). Albumin was started per nephrology consult. We will recheck BEP tomorrow morning. Problem List: 1. COPD exacerbation 2. Pneumonia 3. Diabetes mellitus 4. MADISON (acute kidney injury) 5. Chronic renal failure Pain Ratin Pain Location: NA Pain Goal: Remain pain free Pain Plan: NA Tomorrow's Labs & Rationales: bep, cbc Consulting Request: Consulting Specialty: Nephrology Consulting Physician: Dr. Hernandez Reason for Consult: Inceased Cr., MADISON?
[2018-06-22 06:47] VITALS: BP 142/52
[2018-06-22 07:57] LABS: ABSOLUTE BASOPHIL COUNT 0 /CUMM (0.0-0.2); ABSOLUTE EOSINOPHIL COUNT 0 /CUMM (0.0-0.7); ABSOLUTE LYMPH COUNT 0.3 /CUMM (1.2-3.4); ABSOLUTE MONOCYTE COUNT 0.3 /CUMM (0.10-0.60); BASOPHIL % 0 % (0.0-2.0); EOSINOPHIL % 0.1 % (0-5); PLATELET COUNT 165 /CUMM (130-400)
[2018-06-22 08:35] LABS: ABSOLUTE GRANULOCYTE CT 8.4 /CUMM (1.4-6.5); GRANULOCYTE % 94.1 % (42.2-75.2); HEMATOCRIT 21.2 % (42-52); MEAN CORPUSCULAR HGB 29.7 PG (27.0-31.0); MEAN CORPUSCULAR HGB CONC 32.8 G/DL (33.0-37.0); MEAN CORPUSCULAR VOLUME 90.5 FL (80.0-94.0); MEAN PLATELET VOLUME 9.4 FL (7.4-10.4); RBC DISTRIBUTION WIDTH 17.4 % (11.5-14.5); RED BLOOD CELL CT 2.34 /CUMM (4.70-6.10); WHITE BLOOD CELL COUNT 8.9 /CUMM (4.8-10.8)
--- NOTE | 2018-06-22 12:51 | PN- Pulmonary ---
Subjective HPI/Critical Care Issues: pt seen and examined vomitted this am attributes to probable mucous/secretions Objective Current Medications: Current Medications Sig/Eve Start time Last Medication Dose Route Stop Time Status Admin Acetaminophen 650 MG Q6-PRN PRN 06/17 1615 AC PO Acetylcysteine 2 ML BID 06/22 0900 AC INH Albumin Human 12.5 GM Q8H 06/22 0330 AC 06/22 IV 06/23 1131 1055 Albumin Human 12.5 GM Q8 06/21 1756 DC 06/21 IV 06/23 0601 1936 Albuterol Sulfate 3 ML EVERY 4 HRS/AWAKE 06/18 0800 AC 06/22 INH 1138 Albuterol Sulfate 1 PUF Q4H PRN 06/17 1615 AC INH Albuterol Sulfate 3 ML Q6H PRN 06/17 1615 AC 06/22 INH 0046 Aspirin Buffered 81 MG DAILY 06/18 0900 AC 06/21 PO 0900 Atorvastatin Calcium 10 MG DAILY 06/18 0900 AC 06/21 PO 0900 Budesonide/ 2 PUF BID 06/17 2100 AC 06/22 Formoterol Fumarate INH 0917 Cephalexin 500 MG BID 06/20 2100 AC 06/22 PO 1056 Cyanocobalamin 1,000 MCG DAILY 06/18 0900 AC 06/21 PO 0859 Diltiazem HCl 240 MG DAILY 06/18 0900 AC 06/22 PO 1055 Ferrous Sulfate 325 MG TID 06/17 2100 AC 06/21 PO 2210 Guaifenesin 10 ML Q4P PRN 06/17 1600 AC 06/20 PO 1921 Insulin Aspart 0 TIDAC 06/17 1700 AC 06/21 SC 1816 Insulin Detemir 10 UNITS 0906/18 0900 AC 06/22 SC 1054 Insulin Detemir 8 UNITS AT BEDTIME 06/17 2100 AC 06/21 SC 2210 Loperamide HCl 4 MG BID PRN 06/17 1615 AC PO Metoprolol Tartrate 25 MG BID 06/17 2100 AC 06/22 PO 0913 Omeprazole 40 MG 1/2H B/BREAKF/DINNER 06/17 1630 AC 06/22 PO 0611 Ondansetron HCl 4 MG ONCE PRN 06/22 0900 AC IV Patient Medication 1 ED ONE ONE 06/21 1430 DC 06/21 Teaching ED 06/21 1431 1431 Potassium Chloride 20 MEQ DAILY 06/18 900 AC 06/21 PO 0900 Prednisone 30 MG DAILY 06/22 900 AC 06/22 PO 06/27 0859 0912 Rivaroxaban 15 MG AT BEDTIME 06/17 2100 AC 06/21 PO 2210 Sodium Chloride 1,000 ML Q10H 06/21 09 DC 06/21 IV 2209 Sodium Chloride 2 SPRAY Q4P PRN 06/19 1215 AC 06/19 CESAR 1718 Tiotropium [place] 1 PUF DAILY 06/18 900 AC 06/22 INH 0917 Vital Signs & I&O Last 24 Hrs of Vitals and I&O: Vital Signs Date Time Temp Pulse Resp B/P B/P Pulse O2 O2 Flow FiO2 Mean Ox Delivery Rate 06/22 913 103 118/74 06/22 0831 96 Nasal 4.0L Cannula 06/22 08 92 Nasal 5.0L Cannula 06/22 0647 97.0 98 18 142/52 93 06/22 0558 66 96 06/22 0349 62 94 06/22 0050 72 98 06/22 0046 85 Nasal 4.0L Cannula 06/22 0000 BIPAP 5.0L 06/21 2256 93 95 06/21 2209 76 110/56 06/21 2146 98.0 76 20 110/56 94 Nasal 4.0L Cannula 06/21 1610 96 Nasal 5.0L Cannula 06/21 1600 Nasal 5.0L Cannula 06/21 1404 97.3 73 18 104/52 99 Nasal 5.0L Cannula Intake & Output 06/22 1600 06/22 0800 06/22 0000 Intake Total 840 Output Total 300 600 Balance 540 -600 Intake, IV 600 Intake, Oral 240 Output, Urine 300 600 Patient 170 lb Weight Exam Other Physical Findings: gen - awake and alert head/neck - o2 cvs -s1, s2 lungs - b/l rare rhonchi abd - soft, bs+ ext trace edema Results Last 24 Hrs of Lab Results: Laboratory Tests 06/22/18 06: Anion Gap 9, Estimated GFR 35 L, BUN/Creatinine Ratio 42.6 H, CBC w Diff MAN DIFF ORDERED, RBC 2.34 L, MCV 90.5, MCH 29.7, MCHC 32.8 L, RDW 17.4 H, MPV 9.4, Gran % 94.1 H, Lymphocytes % 2.9 L, Monocytes % 2.9, Eosinophils % 0.1, Basophils % 0, Absolute Granulocytes 8.4 H, Absolute Lymphocytes 0.3 L, Absolute Monocytes 0.3, Absolute Eosinophils 0, Absolute Basophils 0, Platelet Estimate ADEQUATE, Hypochromic-Microcytic 1+, Poikilocytosis 2+, Basophilic Stippling 1+, Anisocytosis 1+ Impression/Plan Impression/Plan Impression/Plan: Impression 68 year old man * IMPROVING - acute exacerbation of COPD * sputum with Klebsiella, Staph Aureus - atelectasis vs. pneumonia - * chronic hypoxemic respiratory failure * Hx of BHARATHI * stable anemia Plan -add mucomyst for thick sputum that he may have choked on -steroid taper as ordered - on po prednisone -trc/nebs, continue inhalers -Klebsiella/staph in sputum - cont abx to cover -anemia per primary team -no Diamox at this time - it can increase respiratory drive -continue NIV BiPAP nocturnally DVT prophylaxis at all times
--- NOTE | 2018-06-22 13:56 | PN- Nephrology ---
Assessment/Plan Nephrology Assessment: 1. CKD stage III secondary to hypertensive/diabetic nephrosclerosis 2. MADISON secondary to decreased renal perfusion -improving 3. COPD exacerbation with possible pneumonia 4. Hypoalbuminemia with edema Suggestion: 1. Continue q. 8 hour 25% albumin for a total of 6 doses 2. Discontinue IV fluids 3. Consider transfuse another unit of packed RBCs 4. Continue to monitor intake and output, labs daily Subjective Subjective: Patient had some shortness of breath last evening which may have been a mucous plug. His symptoms resolved following a respiratory treatment. Renal function continues to improve and is near baseline. Hemoglobin down to 7.0. Objective Vital Signs and I&Os Vital Signs Date Time Temp Pulse Resp B/P B/P Pulse O2 O2 Flow FiO2 Mean Ox Delivery Rate 06/22 0913 103 118/74 06/22 0831 96 Nasal 4.0L Cannula 06/22 0800 92 Nasal 5.0L Cannula 06/22 0647 97.0 98 18 142/52 93 06/22 0558 66 96 06/22 0349 62 94 06/22 0050 72 98 06/22 0046 85 Nasal 4.0L Cannula 06/22 0000 BIPAP 5.0L 06/21 2256 93 95 06/21 2209 76 110/56 06/21 2146 98.0 76 20 110/56 94 Nasal 4.0L Cannula 06/21 1610 96 Nasal 5.0L Cannula 06/21 1600 Nasal 5.0L Cannula 06/21 1404 97.3 73 18 104/52 99 Nasal 5.0L Cannula Intake & Output 06/22 1600 06/22 0400 06/21 1600 06/21 0400 06/20 1600 06/20 0400 Intake Total 840 1640 480 970 730 Output Total 300 600 900 300 775 400 Balance 540 -600 740 180 195 330 Intake, IV 600 600 10 250 Intake, Oral 240 1040 480 960 480 Number 1 Bowel Movements Output, Urine 300 600 900 300 775 400 Patient 170 lb 168 lb Weight Weight Bed scale Measurement Method Physical Exam: General: Chronically ill-appearing, white male in NAD Skin: Multiple ecchymoses diffusely without rash or jaundice HEENT: Conjunctivae pale, sclerae anicteric, mucous membranes dry Neck: Without masses or thyromegaly, no supraclavicular or cervical adenopathy Chest: Poor air entry bilaterally Heart: Irregular rhythm without S3 or rub Abdomen: Soft and nontender without palpable masses or organomegaly Extremities: Without cyanosis; +edema Neuro: Awake and alert without focal findings; no asterixis or myoclonus Results Pertinent Lab Results: Laboratory Tests 06/22 06/22 1340 0605 Chemistry Sodium (137 - 145 mmol/L) 138 Potassium (3.5 - 5.1 mmol/L) 4.2 Chloride (98 - 107 mmol/L) 103 Carbon Dioxide (22 - 30 mmol/L) 26 Anion Gap (5 - 16) 9 BUN (9 - 20 mg/dL) 81 H Creatinine (0.7 - 1.2 mg/dL) 1.9 H Estimated GFR (>60 ml/min) 35 L BUN/Creatinine Ratio (7 - 25 %) 42.6 H Hematology CBC w Diff Pending MAN DIFF ORDERED WBC (4.8 - 10.8 /CUMM) Pending 8.9 RBC (4.70 - 6.10 /CUMM) Pending 2.34 L Hgb (14.0 - 18.0 G/DL) Pending 7.0 *L Hct (42 - 52 %) Pending 21.2 L MCV (80.0 - 94.0 FL) Pending 90.5 MCH (27.0 - 31.0 PG) Pending 29.7 MCHC (33.0 - 37.0 G/DL) Pending 32.8 L RDW (11.5 - 14.5 %) Pending 17.4 H Plt Count (130 - 400 /CUMM) Pending 165 MPV (7.4 - 10.4 FL) Pending 9.4 Gran % (42.2 - 75.2 %) 94.1 H Lymphocytes % (20.5 - 51.1 %) 2.9 L Monocytes % (1.7 - 9.3 %) 2.9 Eosinophils % (0 - 5 %) 0.1 Basophils % (0.0 - 2.0 %) 0 Absolute Granulocytes (1.4 - 6.5 /CUMM) 8.4 H Absolute Lymphocytes (1.2 - 3.4 /CUMM) 0.3 L Absolute Monocytes (0.10 - 0.60 /CUMM) 0.3 Absolute Eosinophils (0.0 - 0.7 /CUMM) 0 Absolute Basophils (0.0 - 0.2 /CUMM) 0 Platelet Estimate (ADEQUATE) ADEQUATE Hypochromic-Microcytic 1+ Poikilocytosis 2+ Basophilic Stippling 1+ Anisocytosis 1+ 06/21 06/20 0605 1750 Chemistry Sodium (137 - 145 mmol/L) 138 Potassium (3.5 - 5.1 mmol/L) 4.3 Chloride (98 - 107 mmol/L) 98 Carbon Dioxide (22 - 30 mmol/L) 30 Anion Gap (5 - 16) 9 BUN (9 - 20 mg/dL) 88 H Creatinine (0.7 - 1.2 mg/dL) 2.3 H Estimated GFR (>60 ml/min) 28 L BUN/Creatinine Ratio (7 - 25 %) 38.3 H Hematology CBC w Diff NO MAN DIFF REQ WBC (4.8 - 10.8 /CUMM) 10.4 RBC (4.70 - 6.10 /CUMM) 2.61 L Hgb (14.0 - 18.0 G/DL) 7.8 L Hct (42 - 52 %) 23.8 L MCV (80.0 - 94.0 FL) 91.1 MCH (27.0 - 31.0 PG) 29.9 MCHC (33.0 - 37.0 G/DL) 32.8 L RDW (11.5 - 14.5 %) 17.5 H Plt Count (130 - 400 /CUMM) 186 MPV (7.4 - 10.4 FL) 8.6 Gran % (42.2 - 75.2 %) 90.3 H Lymphocytes % (20.5 - 51.1 %) 4.9 L Monocytes % (1.7 - 9.3 %) 4.4 Eosinophils % (0 - 5 %) 0.4 Basophils % (0.0 - 2.0 %) 0 Absolute Granulocytes (1.4 - 6.5 /CUMM) 9.4 H Absolute Lymphocytes (1.2 - 3.4 /CUMM) 0.5 L Absolute Monocytes (0.10 - 0.60 /CUMM) 0.5 Absolute Eosinophils (0.0 - 0.7 /CUMM) 0 Absolute Basophils (0.0 - 0.2 /CUMM) 0 Urines Urine Color (YEL,AMB,STR) STRAW Urine Clarity (CLEAR) CLEAR Urine pH (5.0 - 8.0) 6.0 Ur Specific [place] (1.001 - 1.035) 1.015 Urine Protein (NEG,<30 MG/DL) NEG Urine Ketones (NEG) NEG Urine Nitrite (NEG) NEG Urine Bilirubin (NEG) NEG Urine Urobilinogen (0.1 - 1.0 EU/dl) 0.2 Ur Leukocyte Esterase (NEG) NEG Ur Microscopic EXAM NOT REQUIRED Urine Hemoglobin (NEG) NEG Urine Glucose (N MG/DL) NEG 06/20 06/20 1750 0600 Chemistry Sodium (137 - 145 mmol/L) 141 Potassium (3.5 - 5.1 mmol/L) 4.4 Chloride (98 - 107 mmol/L) 97 L Carbon Dioxide (22 - 30 mmol/L) 29 Anion Gap (5 - 16) 15 BUN (9 - 20 mg/dL) 91 H Creatinine (0.7 - 1.2 mg/dL) 2.5 H Estimated GFR (>60 ml/min) 26 L BUN/Creatinine Ratio (7 - 25 %) 36.4 H Hematology CBC w Diff NO MAN DIFF REQ WBC (4.8 - 10.8 /CUMM) 10.4 RBC (4.70 - 6.10 /CUMM) 2.66 L Hgb (14.0 - 18.0 G/DL) 7.8 L Hct (42 - 52 %) 24.3 L MCV (80.0 - 94.0 FL) 91.5 MCH (27.0 - 31.0 PG) 29.3 MCHC (33.0 - 37.0 G/DL) 32.0 L RDW (11.5 - 14.5 %) 17.5 H Plt Count (130 - 400 /CUMM) 195 MPV (7.4 - 10.4 FL) 8.8 Gran % (42.2 - 75.2 %) 91.9 H Lymphocytes % (20.5 - 51.1 %) 3.4 L Monocytes % (1.7 - 9.3 %) 4.7 Eosinophils % (0 - 5 %) 0 Basophils % (0.0 - 2.0 %) 0 Absolute Granulocytes (1.4 - 6.5 /CUMM) 9.5 H Absolute Lymphocytes (1.2 - 3.4 /CUMM) 0.4 L Absolute Monocytes (0.10 - 0.60 /CUMM) 0.5 Absolute Eosinophils (0.0 - 0.7 /CUMM) 0 Absolute Basophils (0.0 - 0.2 /CUMM) 0 Urines Ur Random Creatinine (mg/dL) 49.8 Ur Random Sodium (30 - 90 mmol/L) 10 L Ur Random Potassium (mmol/L) 36.7 Fraction Sodium Excret (<1% %) 0.4
[2018-06-22 14:18] LABS: ABSOLUTE BASOPHIL COUNT 0 /CUMM (0.0-0.2); ABSOLUTE EOSINOPHIL COUNT 0 /CUMM (0.0-0.7); ABSOLUTE LYMPH COUNT 0.2 /CUMM (1.2-3.4); ABSOLUTE MONOCYTE COUNT 0.1 /CUMM (0.10-0.60); BASOPHIL % 0 % (0.0-2.0)
[2018-06-22 14:25] LABS: ABSOLUTE GRANULOCYTE CT 10.2 /CUMM (1.4-6.5); EOSINOPHIL % 0 % (0-5); MEAN CORPUSCULAR HGB 30.6 PG (27.0-31.0); MEAN CORPUSCULAR HGB CONC 33.1 G/DL (33.0-37.0); MEAN CORPUSCULAR VOLUME 92.5 FL (80.0-94.0); PLATELET COUNT 152 /CUMM (130-400); RBC DISTRIBUTION WIDTH 17.7 % (11.5-14.5); RED BLOOD CELL CT 2.26 /CUMM (4.70-6.10); WHITE BLOOD CELL COUNT 10.5 /CUMM (4.8-10.8)
[2018-06-22 14:30] LABS: HEMATOCRIT 20.9 % (42-52)
[2018-06-22 15:27] LABS: GRANULOCYTE % 97.2 % (42.2-75.2)
[2018-06-22 23:00] VITALS: BP 116/60
[2018-06-23 06:46] VITALS: BP 124/60
[2018-06-23 08:03] LABS: ABSOLUTE BASOPHIL COUNT 0 /CUMM (0.0-0.2); ABSOLUTE EOSINOPHIL COUNT 0 /CUMM (0.0-0.7); ABSOLUTE LYMPH COUNT 0.4 /CUMM (1.2-3.4); ABSOLUTE MONOCYTE COUNT 0.3 /CUMM (0.10-0.60); BASOPHIL % 0 % (0.0-2.0); EOSINOPHIL % 0.5 % (0-5); GRANULOCYTE % 89.8 % (42.2-75.2); HEMATOCRIT 22.2 % (42-52); MEAN CORPUSCULAR HGB 30.8 PG (27.0-31.0); MEAN CORPUSCULAR HGB CONC 33.3 G/DL (33.0-37.0); MEAN CORPUSCULAR VOLUME 92.7 FL (80.0-94.0); MEAN PLATELET VOLUME 8.9 FL (7.4-10.4); PLATELET COUNT 160 /CUMM (130-400); WHITE BLOOD CELL COUNT 7.9 /CUMM (4.8-10.8)
--- NOTE | 2018-06-23 09:33 | PN- Housestaff ---
See Addendum Subjective Follow-up For: Acute COPD exacerbation Pneumonia IDDM Acute on chronic renal failure Subjective: Afebrile overnight. Patient mentions he is fatigued and short of breath this morning. Patient notes he slept decently well overnight with the BiPaP, but this morning is having slightly more difficulty breathing. Patient however is trying to work to get better and is currently working with the nurse to get up and sit in the chair for some time this morning. Patient this morning is on 5L NC oxygen with saturation of approx. 94%. Patient denies any episodes of nausea or vomiting overnight. Patient otherwise denies chest pain and abdominal pain. Review of Systems Constitutional: Reports: see HPI. Objective Last 24 Hrs of Vital Signs/I&O Vital Signs Date Time Temp Pulse Resp B/P B/P Pulse O2 O2 Flow FiO2 Mean Ox Delivery Rate 06/23 0839 95 Nasal 4.0L Cannula 06/23 0816 92 124/60 06/23 0800 93 Nasal 4.0L Cannula 06/23 0646 97.8 92 20 124/60 95 BIPAP 5.0L 06/23 0111 86 93 08/ 0000 BIPAP 5.0L 06/22 2300 98.0 97 20 116/60 95 BIPAP 5.0L /03 2255 92 93 08/03 2130 101 102/52 08/03 1605 97 Nasal 5.0L Cannula Intake & Output 06/23 1600 04 0800 08/04 0000 Intake Total 450 540 Output Total 675 200 Balance -225 340 Intake, IV 50 300 Intake, Oral 400 240 Output, Urine 675 200 Patient 168 lb Weight Physical Exam General Appearance: Alert, Oriented X3, Cooperative, Mild Distress Skin: No Rashes, No Breakdown HEENT: Atraumatic Neck: Supple, No JVD Cardiovascular: Normal S1, Normal S2, No Murmurs Lungs: Clear to Auscultation, Decreased breath sounds b/l, 95% O2 saturation Assessment/Plan Assessment: Assessment: Assessment: 68-year-old male with acute COPD exacerbation, congestive heart failure, and diabetes mellitus. He had a drop in O2 saturation to 86% and tachycardia in the low 100s which happened at midnight, EKG and chest x-ray was obtained, reported by radiologist was normal. The EKG did not show any change. Acute COPD exacerbation: His breathing sounds are back to baseline. Plan: Prednisolone is restarted per pulmonology consult. 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 Furosemide 40 mg PO qd started to decrease fluid load -Reassess tomorrow if can increase Furosemide to twice per day Pneumonia: Lower respiratory cultures were positive for Staph. areus (non-MRSA) and Klebsiella pneumonia. Plan: He is on Cephalexin 500 BID PO. Anemia: Initially there was drop in hemoglobin level from 7.8 to 7.0. Last guiac was negative. Recent Hgb 7.4 this morning. Continue monitoring H/H DM on insulin: Blood sugar level has been controlled. Plan: We will continue the same dose of insulin and continue the hold of metformin due to decreased renal function. Acute on chronic renal failure (Stage 4): Today creatinine has decreased from 2.5 to 2.3 to 1.9 which is the baseline. Plan: We have stopped IV normal saline and we will avoid renal toxic medications (NSAIDS and metformin). Albumin was started per nephrology consult. Latest BEP with Cr. 1.9, same as prior. Problem List: 1. COPD exacerbation 2. Pneumonia 3. MADISON (acute kidney injury) 4. Chronic renal failure 5. Diabetes mellitus Pain Ratin Pain Location: NA Pain Goal: Remain pain free Pain Plan: NA Tomorrow's Labs & Rationales: BEP CBC Consulting Request: Consulting Specialty: Nephrology Consulting Physician: Dr. Hernandez Reason for Consult: Inceased Cr., MADISON?
--- NOTE | 2018-06-23 09:36 | PN- Pulmonary ---
Subjective HPI/Critical Care Issues: The patient continues to have shortness of breath. He feels better since admission. He has an ongoing cough. He has intermittent wheezing. There were no overnight events reported. He continues to use nocturnal BiPAP without issue Objective Current Medications: Current Medications Sig/Eve Start time Last Medication Dose Route Stop Time Status Admin Acetaminophen 650 MG Q6-PRN PRN 06/17 1615 AC PO Acetylcysteine 2 ML BID 06/22 09 AC 06/23 INH 0835 Albumin Human 12.5 GM Q8H 06/22 0330 AC 06/23 IV 06/23 1131 0311 Albuterol Sulfate 3 ML EVERY 4 HRS/AWAKE 06/18 08 AC 06/23 INH 0835 Albuterol Sulfate 1 PUF Q4H PRN 06/17 1615 AC INH Albuterol Sulfate 3 ML Q6H PRN 06/17 1615 AC 06/22 INH 0046 Aspirin Buffered 81 MG DAILY 06/18 0900 AC 06/23 PO 0816 Atorvastatin Calcium 10 MG DAILY 06/18 09 AC 06/23 PO 0816 Budesonide/ 2 PUF BID 06/17 2100 AC 06/23 Formoterol Fumarate INH 0820 Cephalexin 500 MG BID 06/20 2100 AC 06/23 PO 0816 Cyanocobalamin 1,000 MCG DAILY 06/18 0900 AC 06/23 PO 0817 Diltiazem HCl 240 MG DAILY 06/18 0900 AC 06/23 PO 0816 Ferrous Sulfate 325 MG TID 06/17 2100 AC 06/23 PO 0816 Guaifenesin 10 ML Q4P PRN 06/17 1600 AC 06/20 PO 1921 Insulin Aspart 0 TIDAC 06/17 1700 AC 06/22 SC 1910 Insulin Detemir 10 UNITS 06/18 0900 AC 06/23 SC 0817 Insulin Detemir 8 UNITS AT BEDTIME 06/17 2100 AC 06/22 SC 2145 Loperamide HCl 4 MG BID PRN 06/17 1615 AC PO Metoprolol Tartrate 25 MG BID 06/17 2100 AC 06/23 PO 0816 Omeprazole 40 MG 1/2H B/BREAKF/DINNER 06/17 1630 AC 06/23 PO 0650 Ondansetron HCl 4 MG ONCE PRN 06/22 0900 AC IV Potassium Chloride 20 MEQ DAILY 06/18 09 AC 06/23 PO 0816 Prednisone 20 MG DAILY 06/22 900 AC 06/23 PO 06/27 0859 0816 Rivaroxaban 15 MG AT BEDTIME 06/17 2100 AC 06/22 PO 2130 Sodium Chloride 2 SPRAY Q4P PRN 06/19 1215 AC 06/19 CESAR 1718 Tiotropium [place] 1 PUF DAILY 06/18 09 AC 06/23 INH 0817 Vital Signs & I&O Last 24 Hrs of Vitals and I&O: Vital Signs Date Time Temp Pulse Resp B/P B/P Pulse O2 O2 Flow FiO2 Mean Ox Delivery Rate 06/23 0839 95 Nasal 4.0L Cannula 06/23 0816 92 124/60 06/23 0800 93 Nasal 4.0L Cannula 06/23 0646 97.8 92 20 124/60 95 BIPAP 5.0L 06/23 0111 86 93 06/23 0000 BIPAP 5.0L 06/22 2300 98.0 97 20 116/60 95 BIPAP 5.0L 06/22 2255 92 93 06/22 2130 101 102/52 06/22 1605 97 Nasal 5.0L Cannula Intake & Output 06/23 1600 06/23 0800 06/23 0000 Intake Total 450 540 Output Total 675 200 Balance -225 340 Intake, IV 50 300 Intake, Oral 400 240 Output, Urine 675 200 Patient 168 lb Weight Physical Exam General Appearance: Alert, Oriented X3, Cooperative, No Acute Distress Skin Temp/Moisture Exam: Warm/Dry Neck: Supple, No thryomegaly Cardiovascular: Regular Rate, Normal S1, Normal S2 Lungs: Minimal Bilat ronchi Abdomen: Normal Bowel Sounds, Soft, No Tenderness Neurological: Normal Speech Extremities: No Cyanosis Results Last 24 Hrs of Lab Results: Laboratory Tests 06/23/18 0624: Anion Gap 5, Estimated GFR 35 L, BUN/Creatinine Ratio 38.9 H, CBC w Diff MAN DIFF ORDERED, RBC 2.40 L, MCV 92.7, MCH 30.8, MCHC 33.3, RDW 17.0 H, MPV 8.9, Gran % 89.8 H, Lymphocytes % 5.6 L, Monocytes % 4.1, Eosinophils % 0.5, Basophils % 0, Absolute Granulocytes 7.0 H, Segmented Neutrophils 94 H, Absolute Lymphocytes 0.4 L, Lymphocytes 4 L, Monocytes 2, Absolute Monocytes 0.3, Absolute Eosinophils 0, Absolute Basophils 0, Nucleated RBCs 1 H, Platelet Estimate VERIFIED BY SMEAR, Polychromasia 1+, Basophilic Stippling 1+, Anisocytosis 1+ 06/22/18 1340: CBC w Diff NO MAN DIFF REQ, RBC 2.26 L, MCV 92.5, MCH 30.6, MCHC 33.1, RDW 17.7 H, MPV 9.0, Gran % 97.2 H, Lymphocytes % 1.6 L, Monocytes % 1.2 L, Eosinophils % 0, Basophils % 0, Absolute Granulocytes 10.2 H, Absolute Lymphocytes 0.2 L, Absolute Monocytes 0.1, Absolute Eosinophils 0, Absolute Basophils 0 Impression/Plan Impression/Plan Impression/Plan: 1. Acute exacerbation of COPD. 2. Sputum positive for Klebsiella and staph aureusatelectasis versus pneumonia. 3. Chronic hypoxemic respiratory failure. 4. History of obstructive sleep apnea. 5. Chronic, stable anemia. Recommendations: * Continue nebs/total respiratory care. * Continue Mucomyst. * Current inhaler regimen to continue. * Continue antibiotic coverage for Klebsiella and staph in the sputum. * Anemia management/follow per primary team. * Continue noninvasive ventilation/BiPAP nocturnally. * DVT prophylaxis at all times.
[2018-06-23 14:14] VITALS: BP 118/70
[2018-06-23 19:50] LABS: ABSOLUTE BASOPHIL COUNT 0 /CUMM (0.0-0.2); ABSOLUTE EOSINOPHIL COUNT 0 /CUMM (0.0-0.7); ABSOLUTE GRANULOCYTE CT 8.1 /CUMM (1.4-6.5); ABSOLUTE LYMPH COUNT 0.2 /CUMM (1.2-3.4); ABSOLUTE MONOCYTE COUNT 0.2 /CUMM (0.10-0.60); BASOPHIL % 0 % (0.0-2.0); EOSINOPHIL % 0.2 % (0-5); HEMATOCRIT 22.8 % (42-52); MEAN CORPUSCULAR HGB 28.2 PG (27.0-31.0); MEAN CORPUSCULAR VOLUME 88.2 FL (80.0-94.0); MEAN PLATELET VOLUME 8.1 FL (7.4-10.4); PLATELET COUNT 165 /CUMM (130-400); RBC DISTRIBUTION WIDTH 17.9 % (11.5-14.5); RED BLOOD CELL CT 2.59 /CUMM (4.70-6.10); WHITE BLOOD CELL COUNT 8.5 /CUMM (4.8-10.8)
[2018-06-23 20:02] LABS: GRANULOCYTE % 94.8 % (42.2-75.2)
[2018-06-23 21:21] VITALS: BP 118/70
[2018-06-24 06:34] VITALS: BP 110/64
[2018-06-24 08:46] LABS: ABSOLUTE BASOPHIL COUNT 0 /CUMM (0.0-0.2); ABSOLUTE EOSINOPHIL COUNT 0.1 /CUMM (0.0-0.7); ABSOLUTE GRANULOCYTE CT 7.3 /CUMM (1.4-6.5); ABSOLUTE LYMPH COUNT 0.4 /CUMM (1.2-3.4); ABSOLUTE MONOCYTE COUNT 0.4 /CUMM (0.10-0.60); BASOPHIL % 0 % (0.0-2.0); EOSINOPHIL % 0.8 % (0-5); HEMATOCRIT 22.4 % (42-52); MEAN CORPUSCULAR HGB 29.4 PG (27.0-31.0); MEAN PLATELET VOLUME 8.9 FL (7.4-10.4); PLATELET COUNT 160 /CUMM (130-400); RBC DISTRIBUTION WIDTH 17.7 % (11.5-14.5); RED BLOOD CELL CT 2.51 /CUMM (4.70-6.10)
--- NOTE | 2018-06-24 08:49 | PN- Housestaff ---
Rebeka Patel 06/24/18 0848: Subjective Follow-up For: Acute COPD exacerbation Pneumonia IDDM Acute on chronic renal failure Subjective: Afebrile overnight. Patient is awake and currently receiving his breathing treatment. Patient is on 5 L of oxygen. Patient reports increased difficulty of breathing this morning and has to stop to catch his breath at times. Patient also reports pain in his buttock area from prior when he was in the ambulance, that is rated as a 6 out of 10 today. Patient otherwise denies any coughing, chest pain, nausea, vomiting, diarrhea, constipation. fevers, and chills. Review of Systems Constitutional: Reports: see HPI. Objective Last 24 Hrs of Vital Signs/I&O Vital Signs Date Time Temp Pulse Resp B/P B/P Pulse O2 O2 Flow FiO2 Mean Ox Delivery Rate 06/24 1028 99 122/60 06/24 0848 94 Nasal 5.0L Cannula 06/24 0634 98.5 94 20 110/64 96 Nasal 5.0L Cannula 06/24 0111 79 93 06/24 0000 92 BIPAP 06/23 2236 99 90 06/23 2125 97 118/70 06/23 2121 98.8 97 16 118/70 96 Nasal 4.0L Cannula 06/23 2012 95 Nasal 5.0L Cannula 06/23 1600 Nasal 4.0L Cannula 06/23 1414 9.4 101 20 118/70 93 Nasal 4.0L Cannula Intake & Output 06/24 1600 05 0800 06/24 0000 Intake Total 450 600 Output Total 400 725 Balance 50 -125 Intake, Oral 450 600 Output, Urine 400 725 Patient 166 lb Weight Weight Bed scale Measurement Method Physical Exam General Appearance: Alert, Oriented X3, Cooperative, Mild Distress Skin: No Breakdown HEENT: Atraumatic Neck: Supple, No JVD Cardiovascular: Regular Rate, Normal S1, Normal S2 Lungs: wheezing b/l lung eckert, decreased breath sounds Abdomen: Soft Extremities: 3+ pitting edema in bilateral lower extremities Assessment/Plan Assessment: 68-year-old male with acute COPD exacerbation, congestive heart failure, and diabetes mellitus. He had a drop in O2 saturation to 86% and tachycardia in the low 100s which happened at midnight, EKG and chest x-ray was obtained, reported by radiologist was normal. The EKG did not show any change. Acute COPD exacerbation: His breathing sounds are back to baseline. Plan: Prednisolone is restarted per pulmonology consult. 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 Furosemide 40 mg PO qd started to decrease fluid load -Reassess if can increase Furosemide to twice per day Pneumonia: Lower respiratory cultures were positive for Staph. areus (non-MRSA) and Klebsiella pneumonia. Plan: He is on Cephalexin 500 BID PO. Anemia: Initially there was drop in hemoglobin level from 7.8 to 7.0. Last guiac 06/23/18 was positive. Recent Hgb 7.4 this morning. Continue monitoring H/H DM on insulin: Blood sugar level has been controlled. Plan: We will continue the same dose of insulin and continue the hold of metformin due to decreased renal function. Acute on chronic renal failure (Stage 4): We have stopped IV normal saline and we will avoid renal toxic medications ( NSAIDS and metformin). Albumin was started per nephrology consult. Latest BEP with Cr. 1.7 06/24 Pain Acetaminophen 500 mg Q6p Problem List: 1. COPD exacerbation 2. MADISON (acute kidney injury) 3. Pneumonia 4. Diabetes mellitus Pain Ratin Pain Location: buttock Pain Goal: Pain 7 or less Pain Plan: prn pain management Tomorrow's Labs & Rationales: routine labs Consulting Request: Consulting Specialty: Nephrology Consulting Physician: Dr. Hernandez Reason for Consult: Inceased Cr., MADISON? Sangeeta Garcia 06/24/18 0938: Attending MD Review Statement Attending Statement Attending MD Statement: examined this patient, discuss w/resident/PA/FINANCIAL PLANNING ANALYST, agreed w/resident/PA/FINANCIAL PLANNING ANALYST, discussed with family, reviewed EMR data (avail), discussed with nursing, discussed with case mgmt, reviewed images, amended to note Attending Assessment/Plan: Patient denies any new complaints. He reported mild shortness of breath, 5L oxygen supplementation and chest xray suggestive of congestion. His Creatinine is improving now and continue lasix 40 mg daily (home 40 bid). Monitor h/h and transfuse if hb<7 with slow transfusion and continue to monitor..
[2018-06-24 09:25] LABS: WHITE BLOOD CELL COUNT 8.1 /CUMM (4.8-10.8)
--- NOTE | 2018-06-24 12:14 | PN- Pulmonary ---
Subjective HPI/Critical Care Issues: The patient is awake and oriented but drowsy. He is complaining of pain in the area of his coccyx. He states he was injured during his ambulance ride. Per nursing, there is a small open area over the left buttock, and they are applying barrier cream. The patient continues to complain of shortness of breath. He has a cough as well. He denies any chest pain, nausea, vomiting, abdominal pain , fever or chills. Objective Current Medications: Current Medications Sig/Eve Start time Last Medication Dose Route Stop Time Status Admin Acetaminophen 500 MG Q6P PRN 06/24 1145 AC PO Acetaminophen 650 MG Q6-PRN PRN 06/17 1615 AC PO Acetylcysteine 2 ML BID 06/22 09 AC 06/24 INH 0837 Albuterol Sulfate 3 ML EVERY 4 HRS/AWAKE 06/18 08 AC 06/24 INH 0836 Albuterol Sulfate 1 PUF Q4H PRN 06/17 1615 AC INH Albuterol Sulfate 3 ML Q6H PRN 06/17 1615 AC 06/22 INH 0046 Aspirin Buffered 81 MG DAILY 06/18 0900 AC 06/24 PO 1027 Atorvastatin Calcium 10 MG DAILY 06/18 0900 AC 06/24 PO 1027 Budesonide/ 2 PUF BID 06/17 2100 AC 06/24 Formoterol Fumarate INH 1034 Cephalexin 500 MG BID 06/20 2100 AC 06/24 PO 1028 Cyanocobalamin 1,000 MCG DAILY 06/18 0900 AC 06/24 PO 1035 Diltiazem HCl 240 MG DAILY 06/18 0900 AC 06/24 PO 1026 Ferrous Sulfate 325 MG TID 06/17 2100 AC 06/24 PO 1027 Furosemide 40 MG DAILY 06/23 1030 AC 06/24 PO 1027 Guaifenesin 10 ML .STK-MED ONE 06/23 1651 DC PO 06/23 1652 Guaifenesin 10 ML Q4P PRN 06/17 1600 AC 06/23 PO 1654 Insulin Aspart 0 TIDAC 06/17 1700 AC 06/23 SC 1654 Insulin Detemir 10 UNITS 0900 06/18 0900 AC 06/24 SC 1031 Insulin Detemir 8 UNITS AT BEDTIME 06/17 2100 AC 06/23 SC 2124 Loperamide HCl 4 MG BID PRN 06/17 1615 AC PO Metoprolol Tartrate 25 MG BID 06/17 2100 AC 06/24 PO 1028 Omeprazole 40 MG 1/2H B/BREAKF/DINNER 06/17 1630 AC 06/24 PO 0539 Ondansetron HCl 4 MG ONCE PRN 06/22 900 AC IV Potassium Chloride 20 MEQ DAILY 06/18 09 AC 06/24 PO 1028 Prednisone 20 MG DAILY 06/22 09 AC 06/24 PO 06/27 0859 1028 Rivaroxaban 15 MG AT BEDTIME 06/17 2100 AC 06/23 PO 2125 Sodium Chloride 2 SPRAY Q4P PRN 06/19 1215 AC 06/19 CESAR 1718 Tiotropium [place] 1 PUF DAILY 06/18 09 AC 06/24 INH 1033 Vital Signs & I&O Last 24 Hrs of Vitals and I&O: Vital Signs Date Time Temp Pulse Resp B/P B/P Pulse O2 O2 Flow FiO2 Mean Ox Delivery Rate 06/24 1028 99 122/60 06/24 0848 94 Nasal 5.0L Cannula 06/24 0634 98.5 94 20 110/64 96 Nasal 5.0L Cannula 06/24 0111 79 93 06/24 0000 92 BIPAP 06/23 2236 99 90 06/23 2125 97 118/70 06/23 2121 98.8 97 16 118/70 96 Nasal 4.0L Cannula 06/23 2012 95 Nasal 5.0L Cannula 06/23 1600 Nasal 4.0L Cannula 06/23 1414 9.4 101 20 118/70 93 Nasal 4.0L Cannula Intake & Output 06/24 1600 06/24 0800 06/24 0000 Intake Total 450 600 Output Total 400 725 Balance 50 -125 Intake, Oral 450 600 Output, Urine 400 725 Patient 166 lb Weight Weight Bed scale Measurement Method Physical Exam General Appearance: Alert, Oriented, Cooperative but drowsy, No Acute Distress Skin Temp/Moisture Exam: Warm/Dry Neck: Supple Cardiovascular: Regular Rate, Normal S1, Normal S2 Lungs: Minimal Bilat ronchi, scant bilateral wheezes, diminished breath sounds bilaterally Abdomen: Normal Bowel Sounds, Soft, No Tenderness Neurological: Normal Speech Extremities: No Cyanosis, multiple areas of ecchymosis Results Last 24 Hrs of Lab Results: Laboratory Tests 06/24/18 0814: Anion Gap 9, Estimated GFR 40 L, BUN/Creatinine Ratio 37.1 H 06/24/18 0740: CBC w Diff MAN DIFF ORDERED, RBC 2.51 L, MCV 89.0, MCH 29.4, MCHC 33.0, RDW 17.7 H, MPV 8.9, Gran % 90.0 H, Lymphocytes % 4.8 L, Monocytes % 4.4, Eosinophils % 0.8, Basophils % 0, Absolute Granulocytes 7.3 H, Absolute Lymphocytes 0.4 L, Absolute Monocytes 0.4, Absolute Eosinophils 0.1, Absolute Basophils 0, Platelet Estimate VERIFIED BY SMEAR, Polychromasia 1+, Basophilic Stippling 2+, Anisocytosis 1+ 06/23/18 1925: CBC w Diff NO MAN DIFF REQ, RBC 2.59 L, MCV 88.2, MCH 28.2, MCHC 32.0 L, RDW 17.9 H, MPV 8.1, Gran % 94.8 H, Lymphocytes % 2.7 L, Monocytes % 2.3, Eosinophils % 0.2, Basophils % 0, Absolute Granulocytes 8.1 H, Absolute Lymphocytes 0.2 L, Absolute Monocytes 0.2, Absolute Eosinophils 0, Absolute Basophils 0 Impression/Plan Impression/Plan Impression/Plan: 1. Acute exacerbation of COPD. The patient is drowsy and has complaints of ongoing shortness of breath. 2. Sputum positive for Klebsiella and staph aureusatelectasis versus pneumonia. 3. Chronic hypoxemic respiratory failure. 4. History of obstructive sleep apnea. 5. Chronic anemia, without evidence of bleeding. 6. Sacral pain. 7. Left buttock open skin area. 8. Acute on chronic kidney injury, creatinine improving. Recommendations: * Check an ABG - patient is complaining of ongoing dyspnea despite therapy and may benefit from BIPAP now. * Continue noninvasive ventilation/BiPAP nocturnally. * Check pelvic/sacral x-ray. The patient may require CT scan of the pelvis if he continues to have pain, to rule out fracture. * Pain control with non-opiate/nonsedating medications due to respiratory failure. * Wound care consult to be requested in a.m. * Continue supplemental oxygen for saturations greater than 92%. * Continue nebs/total respiratory care. * Prednisone 20 mo PO -the patient is on a slow taper. * Give Solu-Medrol 60 mg IV 1 today. * Continue Mucomyst. * Current inhaler regimen to continue (Spiriva and Symbicort). * Continue antibiotic coverage for Klebsiella and staph in the sputum. * Anemia management - per primary team. * * DVT prophylaxis at all times.
--- NOTE | 2018-06-24 12:38 | RADIOLOGY REPORT ---
EXAMINATION: XR PORTABLE CHEST CLINICAL INFORMATION: Desaturation. Shortness of breath. COMPARISON: CXR from 06/22/2018. Chest CT from 12/25/2017, 02/27/2018 and 03/07/2018 TECHNIQUE: Portable frontal view of the chest was obtained. FINDINGS: Lungs are hyperexpanded from chronic emphysematous disease. Persistent diffuse interstitial opacity of both lungs. Although the interstitial opacity appears slightly improved in the left upper lobe, interstitial opacity has increased in the right lung compared to 06/22/2018. Chronic pleural-parenchymal scarring in right lateral lung base. No superimposed findings to suggest a newly developing pleural effusion. Cardiac silhouette is chronically enlarged. Also, the central right and left pulmonary arteries are chronically enlarged, suggestive of pulmonary arterial hypertension. There is atherosclerotic calcification of the aorta. Bones appear diffusely osteopenic. IMPRESSION: - Chronic emphysematous lung disease. - Cardiomegaly and enlarged pulmonary arteries, suggestive of pulmonary arterial hypertension. - Diffuse interstitial opacity in both lungs is nonspecific and could represent edema or pneumonitis. Pulmonary edema is favored given the slightly shifting distribution/severity of interstitial disease compared to 06/22/2018.
--- NOTE | 2018-06-24 14:56 | RADIOLOGY REPORT ---
EXAMINATION: XR SACRUM AND COCCYX CLINICAL INFORMATION: Coccygeal pain. Possible fall. COMPARISON: CT abdomen pelvis 02/27/2018. TECHNIQUE: 3 views of the sacrum/coccyx were obtained. FINDINGS: No discrete fracture or dislocation demonstrated. The sacral alae appear intact. Mild degenerative changes at the left hip. Lower lumbar degenerative change. Aortoiliac stent graft. IMPRESSION: No acute sacral/coccygeal fracture demonstrated.
[2018-06-24 16:00] VITALS: BP 142/70
--- NOTE | 2018-06-24 16:37 | Event Note ---
Event Note Event Note: Patient evaluated for desatting on 5LNC. Patient is a 68 y/o male with PMH of COPD dependent on oxygen, A.fib, anemia, GI bleed presenting this admisison with COPD exacerbation and pneumonia. Patient evaluated this afternoon. Patient was desatting on 5L NC. Blood gas was obtained showing CO2 retention and CXR showed increasing infiltrates likely pulmonary edema. Patient has received IV fluids and albumin due to MADISON. Patient has anemia received 2pRBC's this admission. Patient received 40mg PO lasix this morning and IV Solumedrol On exam patient was dyspneic, desatting on 5L to the 80s. Lung exam revealed decreased breath sounds bilaterally. Patients has 2-3+ pitting edema in lower extremities. JVD+. Assessment and Plan: Pulmonary edema Chest pressure r/o ACS Acute on chronic respiratory distress due fluid overload and CO2 retention Plan: Dr. Fontaine notified. Respiratory was contacted to place patient on BIPAP. IV lasix 40mg x1 Strict I/O TRC Start on BIPAP - only remove for meds and dinner Serial EKG and troponin
[2018-06-24 16:47] VITALS: BP 116/74
[2018-06-24 22:24] VITALS: BP 130/60
--- NOTE | 2018-06-25 06:49 | PN- Housestaff ---
David Gil 06/25/18 0649: Subjective Follow-up For: Acute COPD exacerbation Pneumonia IDDM Acute on chronic renal failure Subjective: I visited the patient his morning, he did not have any complaints about his breathing this morning, he was on BiPAP. He reports that he had desaturation to 80s yesterday. He said that he was feeling tightness and pressure in his chest during yesterday. Does not report any lightheadedness, nausea, vomiting, chest pain, headache, dizziness, change in mental status. He reports that his lower back pain is better today. Review of Systems Constitutional: Reports: see HPI. Objective Last 24 Hrs of Vital Signs/I&O Vital Signs Date Time Temp Pulse Resp B/P B/P Pulse O2 O2 Flow FiO2 Mean Ox Delivery Rate 06/25 0858 18 95 Nasal 4.0L Cannula 06/25 0837 77 138/72 06/25 0754 95 BIPAP 35% 06/25 0748 99 95 06/25 0729 98.0 95 20 114/70 94 Nasal 5.0L Cannula 06/25 0040 82 92 06/25 0000 BIPAP 06/24 2233 88 92 / 2224 98.3 104 20 130/60 95 08/05 2130 102 92 BIPAP 06/24 2018 100 95 08/05 1943 104 130/60 08/05 1704 100 95 /05 1647 97.4 98 16 116/74 92 BIPAP / 1645 92 BIPAP / 1600 87 Nasal 5.0L Cannula 06/24 1600 98.3 115 24 142/70 87 Nasal 5.0L Cannula 06/24 1028 99 122/60 Intake & Output 06/25 1600 06/25 0800 08 0000 Intake Total 100 420 Output Total 175 1200 Balance -75 -780 Intake, IV 20 Intake, Oral 100 400 Number 0 Bowel Movements Output, Urine 175 1200 Physical Exam General Appearance: Alert, Oriented X3, Cooperative, No Acute Distress Skin: echymoses due to xalerto Skin Temp/Moisture Exam: Warm/Dry Sepsis Skin Exam (color): Normal for Ethnicity HEENT: Atraumatic Cardiovascular: Regular Rate, Normal S1, Normal S2 Lungs: improved comparing to the last physical exam. Good air movement bilaterlly Abdomen: Normal Bowel Sounds, Soft, No Tenderness Neurological: Normal Speech Extremities: 2+ pitting edema in bilateral lower extremities Vascular: Normal Pulses, Pulses Symmetrical Assessment/Plan Assessment: Mr. Vieira had an episode of desaturation to 80s during the weekend and chest tightness at the same time. Chest x-ray, EKG, and troponin were checked. Troponin was normal 2 with EKG showing no changes. Chest x-ray showed chronic emphysematous lung disease, cardiomegaly and enlarged pulmonary arteries suggestive of pulmonary arterial hypertension, and possible pulmonary edema. IV Lasix was administered for this patient. He was placed on BiPAP, and the saturation came up to 90s. He also had sacral area pain for which X-Ray was obtained which did not show any acute pathology like fracture. He had an ulcer on his left buttock on admission which is followed by wound care unit. Acute COPD exacerbation: His breathing sounds are back to baseline this morning although he had one episode of desaturation during the weekend. Plan: Prednisone is being tapered per pulmonology consult. He is receiving acetylcysteine inhalant, RTC, and NIV BiPAP as per insole buffer. Congestive heart failure: He was diagnosed with congestive heart failure with ejection fraction of 30-35%. Dr. Walton visited the patient today. Plan: IV Lasix 40 mg, repeat echocardiogram. Pneumonia: Lower respiratory cultures were positive for Staph. areus (non-MRSA) and Klebsiella pneumonia. Plan: He is on Cephalexin 500 BID PO. Anemia: He had a drop in his hemoglobin to 6.9 for which she received 1 bag of PRBC which raised Hb to 7.5 Plan: We will recheck and follow H&H closely. He is currently on Xarelto with guiac positive result. We have consulted Dr. Walton, launderer hand. DM on insulin: Blood sugar level has been controlled. Plan: We will continue the same dose of insulin and continue the hold of metformin due to decreased renal function. Acute on chronic renal failure (Stage 4): Creatinine is back to baseline 1.7 from 2.5. Plan: We have stopped IV normal saline and we will avoid renal toxic medications (NSAIDS and metformin). We will recheck BEP tomorrow morning. Problem List: 1. COPD exacerbation 2. Pneumonia 3. Diabetes mellitus 4. MADISON (acute kidney injury) 5. Chronic renal failure Pain Ratin Pain Location: NA Pain Goal: Remain pain free Pain Plan: NA Tomorrow's Labs & Rationales: CBC BEP Consulting Request: Consulting Specialty: Nephrology Consulting Physician: Dr. Hernandez Reason for Consult: Inceased Cr., MADISON? Akash CR,Anushka 06/25/18 1000: Attending MD Review Statement Attending Statement Attending MD Statement: examined this patient, discuss w/resident/PA/ESCALATOR SERVICE MECHANIC, agreed w/resident/PA/ESCALATOR SERVICE MECHANIC, reviewed EMR data (avail), discussed with nursing, discussed with case mgmt, reviewed images Attending Assessment/Plan: Pt is known to me from previous admissions. He is a 68-year-old male with a history of chronic respiratory failure on oxygen at home, atrial fibrillation on Xarelto and history of CHF in the past. Also history of anemia status post endoscopy and colonoscopy in April of this year. Right now we are treating acute hypoxemic respiratory failure. Yesterday he required BiPAP and IV Lasix now we have him on a prednisone taper and will call his launderer hand to evaluate the need for IV Lasix. We are tapering of the prednisone, watching the hemoglobin. He is anemic at baseline but given the recent negative GI workup we are just watching the crit closely. Will also have PT work with him. He adamantly refuses rehab so we need to optimize him for home discharge.
[2018-06-25 07:29] VITALS: BP 114/70
[2018-06-25 08:12] LABS: ABSOLUTE BASOPHIL COUNT 0 /CUMM (0.0-0.2); ABSOLUTE EOSINOPHIL COUNT 0 /CUMM (0.0-0.7); ABSOLUTE GRANULOCYTE CT 4.4 /CUMM (1.4-6.5); ABSOLUTE LYMPH COUNT 0.2 /CUMM (1.2-3.4); ABSOLUTE MONOCYTE COUNT 0.2 /CUMM (0.10-0.60); BASOPHIL % 0 % (0.0-2.0); EOSINOPHIL % 0 % (0-5); HEMATOCRIT 22.7 % (42-52); MEAN CORPUSCULAR HGB 30.6 PG (27.0-31.0); MEAN CORPUSCULAR VOLUME 92.6 FL (80.0-94.0); MEAN PLATELET VOLUME 8.8 FL (7.4-10.4); PLATELET COUNT 150 /CUMM (130-400); RBC DISTRIBUTION WIDTH 17.5 % (11.5-14.5); RED BLOOD CELL CT 2.45 /CUMM (4.70-6.10); WHITE BLOOD CELL COUNT 4.8 /CUMM (4.8-10.8)
--- NOTE | 2018-06-25 08:38 | Cons- Wound Care ---
General Information and HPI Consulting Request Date of Consult: 06/25/18 Requested By: Anushka Bustos MD Reason for Consult: Left buttock ulcer present on admission History of Present Illness: Patient is 68-year-old woman admitted with pneumonia COPD who reports when he thought was injury to his coccyx secondary to ambulance transfer x-ray on June 24 showed no evidence of fracture he reports having had a small ulcer of his buttock for some time and this was present on admission Allergies/Medications Allergies: Coded Allergies: No Known Allergies (04/10/18) Home Med List: Acetazolamide 500 MG CAPSULE.ER 1 CAP PO BID UNKNOWN (Reported) Albuterol Sulfate (Proair Hfa) 90 MCG HFA.AER.AD 1 PUF INH Q4H PRN SHORTNESS OF BREATH (Reported) Albuterol Sulfate 2.5 MG/3 ML (0.083 %) VIAL.NEB 1 Vial INH/ABILIO Q6H PRN SHORTNESS OF BREATH (Reported) Aspirin (Ecotrin*) 81 MG TABLET.DR 1 TAB PO DAILY HEART/BLOOD (Reported) Atorvastatin Calcium 10 MG TABLET 1 TAB PO DAILY CHOLESTEROL (Reported) Budesonide/Formoterol Fumarate (Symbicort 160-4.5 Mcg Inhaler) 160 MCG-4.5 MCG/ ACTUATION HFA.AER.AD 2 PUF INH BID SHORTNESS OF BREATH (Reported) Cyanocobalamin (Vitamin B-12) (B-12) 1,000 MCG TABLET 1 TAB PO DAILY VITAMIN SUPPORT (Reported) Digoxin (Lanoxin) 125 MCG TABLET 1 TAB PO Q48@1700 AFIB Diltiazem HCl (Cardizem Cd) 240 MG CAP.ER.24H 240 MG PO DAILY ATRIAL FIB Ferrous Sulfate 325 MG TABLET.DR 325 MG PO BID Iron supplement Furosemide (Lasix) 40 MG TABLET 1 TAB PO BID DIURETIC (Reported) Insulin Aspart (Novolog) (Unknown Strength) VIAL (Unknown Dose) SC SEE SLIDING SCALE DIABETES (Reported) Insulin Detemir (Levemir) 100 UNIT/ML VIAL 10 UNITS SC 0900 DM Insulin Detemir (Levemir) 100 UNIT/ML VIAL 8 UNITS SC AT BEDTIME DM Loperamide HCl (Loperamide) 2 MG CAPSULE 2 CAP PO BID PRN ANTI-DIARRHEAL ( Reported) Metformin HCl 1,000 MG TABLET 1 TAB PO QAM DM (Reported) Metolazone 2.5 MG TABLET 1 TAB PO TID DIURETIC (Reported) Metoprolol Tartrate 25 MG TABLET 1 TAB PO BID AFIB Mometasone Furoate (Nasonex) 50 MCG SPRAY.PUMP 1 SPRAY NASB DAILY ALLERGIES ( Reported) Pantoprazole Sodium (Protonix) 40 MG TABLET.DR 1 TAB PO DAILY ACID REFLUX ( Reported) Potassium Chloride 20 MEQ TAB.ER.PRT 1 TAB PO DAILY SUPPLEMENT (Reported) Prednisone 10 MG TABLET 1 TAB PO DAILY COPD (Reported) Prednisone 10 MG TABLET 1 TAB PO BID RA As below Take 04/24-04/25 20 MG 04/26 onwards 10 MG daily. Rivaroxaban (Xarelto) 20 MG TABLET 1 TAB PO DAILY BLOOD THINNER (Reported) with food Tiotropium [employer] (Spiriva) 18 MCG CAP.W.DEV 1 CAP INH DAILY SHORTNESS OF BREATH (Reported) Review of Systems Review of Systems: Noncontributory Past History Travel History Traveled to [place] past 21 day No Medical History Blood Transfusion Hx: Yes Neurological: TIA 2010 EENT: cataracts Cardiovascular: AFIB, CHF, hypertension, hyperlipidemia Respiratory: COPD, 4L O2 DEPENDENT BIPAP AT NIGHT Gastrointestinal: GERD, ABD ANEURYSM Hepatic: NONE Renal: NONE Musculoskeletal: NONE Psychiatric: NONE Endocrine: NONE Blood Disorders: NONE Cancer(s): prostate cancer HAND GRINDER/Reproductive: NONE Surgical History Surgical History: cataract removal, PROSTATE SURGERY AAA REPAIR TONSILLECTOMY Endovascular AAA repair endovascular abdominal aortic aneurysm repair Family History Relations & Conditions If Any: MOTHER, ; Cause: COPD (chronic obstructive pulmonary disease). FATHER, ; Cause: Myocardial infarct. SISTER, ; Cause: Myocardial infarct. Psychosocial History Where Do You Live? Home Who Do You Live With? spouse Services at Home: None Primary Language: [place]se Smoking Status: Former Smoker (quit 5 years ago) ETOH Use: denies use Illicit Drug Use: denies illicit drug use Living Will? unknown Power of Face Painter/HCP? unknown Functional Ability ADLs Independent: dressing, eating, toileting, bathing. Ambulation: independent IADLs Independent: shopping, housework, finances, food prep, telephone, transportation , medication admin. Exam & Diagnostic Data Vital Signs and I&O Vital Signs Result Date Time Pulse Ox 95 06/25 0754 O2 Delivery BIPAP 06/25 0754 O2 Flow Rate 35% 06/25 0754 Pulse 99 06/25 0748 B/P 114/70 06/25 729 Temp 98.0 06/25 729 Resp 20 06/25 729 Intake & Output 06/25 0000 06/24 1600 06/24 0800 Intake Total 420 720 450 Output Total 1200 550 400 Balance -780 170 50 Intake, IV 20 Intake, Oral 400 720 450 Number 0 0 Bowel Movements Output, Urine 1200 550 400 Patient 166 lb Weight Weight Bed scale Measurement Method Exam of his left buttock shows there to be a minute crescent sized ulcer unstageable measuring 3-4 mm there is no undermining sinus tracking or exposed bone the area of the coccyx does appear somewhat reddened and there may be stage I pressure ulcers present. X-ray in June that showed no evidence of fracture Assessment/Plan Impression/Plan: 68-year-old admitted with pneumonia COPD exacerbation reports having had small ulcer of his buttock for some time. This can be treated with other barrier cream or thin DuoDERM. The area of his coccyx should be offloaded. X-ray shows no evidence of acute bony injury Consult Acknowledgment - Thank you for your consult request.
[2018-06-25 08:52] LABS: GRANULOCYTE % 91.6 % (42.2-75.2)
--- NOTE | 2018-06-25 08:59 | PN- Student ---
Subjective Subjective: Pt seen and examined this morning. He was comfortable in bed and had no complaints. He requests weaning off BIPAP so that he can be on nasal canula during the day. He denies chest pain, SOB, abdominal pain, leg pain. His sacral and coccygeal pain has improved today. Last BM was 3 days ago. Urinating independently with bedside urinal. At this time, patient reports being unable to function at his baseline and so refuses to get OOB. Adamantly refuses to consider rehab placement. Desires d/c directly to home where he lives with his . Objective Objective: Vital Signs Date Time Temp Pulse Resp B/P B/P Pulse O2 O2 Flow FiO2 Mean Ox Delivery Rate 06/25 0837 77 138/72 06/25 0754 95 BIPAP 35% 06/25 0748 99 95 06/25 0729 98.0 95 20 114/70 94 Nasal 5.0L Cannula PE: Gen - NAD, using BIPAP 35% O2 and [id number] Neuro - AOx4 CV - ireggularly irregular, laterally displaced PMI Pulm - diminished breath sounds BL, rhonchi throughout Ext - warm and well perfused with 3+ pitting edema in lower extremities to mid calf, PT/DP pulses not palpable d/t edema Sacrococcygeal exam deferred at this time. Will review later with whole team. Results Results: Laboratory Tests 06/25/18 0625: Anion Gap 7, Estimated GFR 40 L, BUN/Creatinine Ratio 36.5 H, CBC w Diff NO MAN DIFF REQ, RBC 2.45 L, MCV 92.6, MCH 30.6, MCHC 33.0, RDW 17.5 H, MPV 8.8, Gran % 91.6 H, Lymphocytes % 4.2 L, Monocytes % 4.2, Eosinophils % 0, Basophils % 0, Absolute Granulocytes 4.4, Absolute Lymphocytes 0.2 L, Absolute Monocytes 0.2, Absolute Eosinophils 0, Absolute Basophils 0 06/24/18 2138: Troponin I 0.07 06/24/18 1655: Troponin I 0.07 06/24/18 1250: Bicarbonate Actual 32 H, Mixed VBG pH 7.27 L, Mixed VBG pCO2 71 H, Mixed VBG O2 Saturation 26 L, P-50 (Temp Corrected) N, Carboxyhemoglobin 3.2, O2 Concentration % 5L, Temperature 98.5, O2 Delivery Method N/C, Phlebotomy Draw Site RIGHT BRACHIAL 06/24/18 0814: Anion Gap 9, Estimated GFR 40 L, BUN/Creatinine Ratio 37.1 H 06/24/18 0740: CBC w Diff MAN DIFF ORDERED, RBC 2.51 L, MCV 89.0, MCH 29.4, MCHC 33.0, RDW 17.7 H, MPV 8.9, Gran % 90.0 H, Lymphocytes % 4.8 L, Monocytes % 4.4, Eosinophils % 0.8, Basophils % 0, Absolute Granulocytes 7.3 H, Absolute Lymphocytes 0.4 L, Absolute Monocytes 0.4, Absolute Eosinophils 0.1, Absolute Basophils 0, Platelet Estimate VERIFIED BY SMEAR, Polychromasia 1+, Basophilic Stippling 2+, Anisocytosis 1+ Assessment/Plan Assessment: Pt is a 68YOM with PMH of CKD stage 4 GFR of 40, COPD on 4LO2 during the day and BIPAP at night, CHF with 30-35% EF as of February 2018, Afib on cardizem and metoprolol who presented to the ED 9 days ago with cough productive of sputum and dyspnea. He was found to have pneumonia and COPD exascerbation, MADISON with Cr at 2.5, guiac + stool, and sore on the L buttocks. Sputum cx + for klebsiella pneumo, yeast, and MSSA. Pt started on keflex. Pt found to have Hb of 6.7 and so was transfused x2 units PRBCs with current Hb in 7s x3 days. CXR 06/24/18 shows improvement in opacity in [place] and worsened opacification of R lung along with cardiomegaly and pulmonary artery congestion c/w PA HTN and pulmonary edema. Lumbar Xray d/t sacrococcygeal pain showed no fractures. Yesterday pt experienced CO2 retention desatting to 80s on 5LNC and so was placed on BIPAP and recovered well, now satting in 90s. Troponins drawn d/t chest discomfort are 0.07 x2. Problem List/Plan 1. Pneumonia Pt has long hx of COPD and so is susceptible to respiratory infection. - Pt is on day 5 of keflex, continue - Pt is on prednisone taper after IV solumedrol yesterday, continue - Pt is on continuous BIPAP, consider weaning - F/u pulmonology recs including d/c mucomyst and not administering acetazolamide to prevent increased respiratory drive 2. COPD Exascerbation Pt has longstanding COPD and his respiratory status has been decompensated d/t this episode of pneumonia. - Continue prednisone taper - Continue albuterol, symbicort, and spiriva - F/u pulmonology recs 3. Pulmonary edema and PA HTN Pt has CHF with EF of 30-35% which has been worsened by fluids and albumin pt received in light of current MADISON. - Pt is on PO lasix will increase based on Dr. Walton' recommendation giving 40mg IV once. - Continue cardizem and metoprolol 4. Anemia Pt was anemic w/ Hb of 6.7 on admission and has been transfused w/ 2 units pRBCs. This is likely GI loss which was worked up in April 2018 with EGD and colonoscopy. Pt was recommended to f/u outpatient and he has not done so. Pt continues to have guiac + stool this admission. - Hb stable for now at 7.5. - Cardiology does not recommend d/c xarelto d/t hx of afib 5. Acute on chronic kidney injury Pt likely experiencing kidney injury d/t acute infection in the setting of CKD Stage 4. - Continue monitoring BUN/Cr and GFR - Nephro signed off on 06/22/18 6. DM Pt has hx of diabetes for which he takes metformin. - Continue holding metformin until MADISON resolves completely (pt's baseline Cr is ~1.7) as pt is at increased risk of lactic acidosis - Continue tx with sliding scale 7. Sacrococcygeal ulcer Pt has sacrococcygeal ulcer(s) since before admission which are not worsening but which cause the patient pain. They are likely d/t his sedentary lifestyle. - Dr. Miles consulted for wound care. - continue offloading area - Apply barrier cream or duoderm to prevent skin breakdown Diet: regular DVT: xarelto Code: full
--- NOTE | 2018-06-25 09:48 | Cons- Cardiology ---
General Information and HPI Consulting Request Date of Consult: 06/25/18 Requested By: Akash CR,Anushka Gallego Reason for Consult: Cardiac evaluation in the setting of respiratory failure, anemia, question GI bleeding. Source of Information: patient, old records Exam Limitations: no limitations History of Present Illness: Courtney Vieira is a 68-year-old male with severe end stage COPD, and chronic atrial fibrillation for several years. I originally saw him when he presented with atrial fibrillation with bradycardia and elevated digoxin level, and we eventually just took him off digoxin. He has mostly been hospitalized for exacerbations of COPD. In July 2016 he presented with exacerbation of COPD, hypercapnic respiratory failure and anasarca. He was diuresed with Lasix intravenously twice a day and sent home on 40 mg b.i.d. orally. He has been on Xarelto for some time for atrial fibrillation. He is also on chronic oxygen at 4 liters, aspirin, Lipitor, and diltiazem now 480 mg daily for rate control. He is pretty limited in terms of his activity mainly because of the COPD. His echocardiogram in the hospital in 2015 showed mild left ventricular dilatation with LVH and an ejection fraction of 45%. He also had right ventricle and right atrial dilatation, and left atrial dilatation. He had mild to moderate mitral regurgitation and a pulmonary artery pressure of about 45 mmHg. Courtney presented to the hospital again with pneumonia, exacerbation of COPD, and some mild CHF on 05/01/2017. He was treated with the usual measures including some IV Lasix. He had an echocardiogram which showed an ejection fraction of 35% to 40% with global moderate left ventricular dysfunction. He was discharged on 05/05. When he first presented he was in hypercarbic respiratory failure and had a high heart rate with atrial fibrillation and was transiently placed on Cardizem drip, which was eventually discontinued and his heart rate normalized and stayed normal for the rest of the hospitalization. When I saw him after that hospitalization he was doing better, however he was readmitted to the hospital on 08/07/17 again with increasing shortness of breath. This time he appeared to be in more CHF than COPD exacerbation. We repeated his echo and his ejection fraction is now 30% to 35%. His pulmonary artery pressure was elevated to about 60 mmHg. He responded to diuretics and steroids, and other usual respiratory treatments. Courtney was again admitted to [facility] on 12/25/2017. This time he had left lower lobe pneumonia. He also had some degree of worsening renal insufficiency. I was asked to see him a couple of days after his admission because of increasing edema. I recommended just keeping him on his usual dose of Lasix. He did not have abnormal cardiac enzymes at that time, and we did not repeat his echo. While he was in the hospital, he was found to have a probable leak just distal to his previous aortic aneurysm repair and this was scheduled for endo repair on 02/01 at [facility]. Subsequently, he did have the procedure done on 02/01/2018 which was placement of a distal extension prosthesis for repair of an abdominal aortic aneurysm. This was done by Dr. Mancuso at [facility]. This was uncomplicated. He was in the hospital for 1 or 2 nights. Courtney was readmitted on 02/27/2018, this time for increasing shortness of breath with acute hypoxic respiratory failure. He had complications with contrast-induced nephropathy and acute kidney injury and atrial fibrillation with a rapid ventricular rate. His course was somewhat complicated, and he deteriorated early and in fact was seen by palliative care as he was not doing well. However, he did rally enough to be transferred to a rehab facility after about 2 weeks of hospitalization. Subsequently he was again admitted, this time on 04/10/2018 through 04/24/2018. At this time, he was admitted for acute anemia and was found to have iron deficiency anemia with positive stools. He was taken off the Xarelto and had an EGD and colonoscopy. There was apparently no active bleeding. He did have a number of polyps. Subsequently, his H&H remained stable, and he was discharged back on Xarelto 15 mg daily. He has been too weak to get to the office since the time of his discharge on 04/24/2018. His echocardiogram on 02/28/18 showed EF lower than previously at 30-35 % and PAP at 50-55 mm Hg. I saw Courtney again on June 07 2018 in the office at which time he had some additional edema and I suggested adding metolazone to his medication to take just when he has excess edema. I also sent him for some blood work because he had not had any follow-up blood work since his last hospitalization. It does not appear that he went for any blood work, however. He also did not go to CHF clinic which I recommended. He stated it was very difficult for him to get to appointments etc. Courtney was readmitted here on 06/17/18. He came in with exacerbation of COPD and acute kidney injury on top of chronic kidney disease. He has also been anemic and requiring additional transfusions. Over the past 24 hours he has had more difficulty from a respiratory standpoint with desaturation and need for BiPAP. Chest x-ray done yesterday was suggestive of some pulmonary edema which had progressed compared to his previous film.. Allergies/Medications Allergies: Coded Allergies: No Known Allergies (04/10/18) Home Med List: Acetazolamide 500 MG CAPSULE.ER 1 CAP PO BID UNKNOWN (Reported) Albuterol Sulfate (Proair Hfa) 90 MCG HFA.AER.AD 1 PUF INH Q4H PRN SHORTNESS OF BREATH (Reported) Albuterol Sulfate 2.5 MG/3 ML (0.083 %) VIAL.NEB 1 Vial INH/ABILIO Q6H PRN SHORTNESS OF BREATH (Reported) Aspirin (Ecotrin*) 81 MG TABLET.DR 1 TAB PO DAILY HEART/BLOOD (Reported) Atorvastatin Calcium 10 MG TABLET 1 TAB PO DAILY CHOLESTEROL (Reported) Budesonide/Formoterol Fumarate (Symbicort 160-4.5 Mcg Inhaler) 160 MCG-4.5 MCG/ ACTUATION HFA.AER.AD 2 PUF INH BID SHORTNESS OF BREATH (Reported) Cyanocobalamin (Vitamin B-12) (B-12) 1,000 MCG TABLET 1 TAB PO DAILY VITAMIN SUPPORT (Reported) Digoxin (Lanoxin) 125 MCG TABLET 1 TAB PO Q48@1700 AFIB Diltiazem HCl (Cardizem Cd) 240 MG CAP.ER.24H 240 MG PO DAILY ATRIAL FIB Ferrous Sulfate 325 MG TABLET. 325 MG PO BID Iron supplement Furosemide (Lasix) 40 MG TABLET 1 TAB PO BID DIURETIC (Reported) Insulin Aspart (Novolog) (Unknown Strength) VIAL (Unknown Dose) SC SEE SLIDING SCALE DIABETES (Reported) Insulin Detemir (Levemir) 100 UNIT/ML VIAL 10 UNITS SC 0900 DM Insulin Detemir (Levemir) 100 UNIT/ML VIAL 8 UNITS SC AT BEDTIME DM Loperamide HCl (Loperamide) 2 MG CAPSULE 2 CAP PO BID PRN ANTI-DIARRHEAL ( Reported) Metformin HCl 1,000 MG TABLET 1 TAB PO QAM DM (Reported) Metolazone 2.5 MG TABLET 1 TAB PO TID DIURETIC (Reported) Metoprolol Tartrate 25 MG TABLET 1 TAB PO BID AFIB Mometasone Furoate (Nasonex) 50 MCG SPRAY.PUMP 1 SPRAY NASB DAILY ALLERGIES ( Reported) Pantoprazole Sodium (Protonix) 40 MG TABLET.DR 1 TAB PO DAILY ACID REFLUX ( Reported) Potassium Chloride 20 MEQ TAB.ER.PRT 1 TAB PO DAILY SUPPLEMENT (Reported) Prednisone 10 MG TABLET 1 TAB PO DAILY COPD (Reported) Prednisone 10 MG TABLET 1 TAB PO BID RA As below Take 04/24-04/25 20 MG 04/26 onwards 10 MG daily. Rivaroxaban (Xarelto) 20 MG TABLET 1 TAB PO DAILY BLOOD THINNER (Reported) with food Tiotropium [place] (Spiriva) 18 MCG CAP.W.DEV 1 CAP INH DAILY SHORTNESS OF BREATH (Reported) Current Medications: Current Medications Sig/Eve Start time Last Medication Dose Route Stop Time Status Admin Acetaminophen 500 MG Q6P PRN 06/24 1145 AC PO Acetaminophen 650 MG Q6-PRN PRN 06/17 1615 AC PO Acetylcysteine 2 ML BID 06/22 09 AC 06/25 INH 0748 Albuterol Sulfate 3 ML EVERY 4 HRS/AWAKE 06/18 0800 AC 06/25 INH 0748 Albuterol Sulfate 1 PUF Q4H PRN 06/17 1615 AC INH Albuterol Sulfate 3 ML Q6H PRN 06/17 1615 AC 06/22 INH 0046 Aspirin Buffered 81 MG DAILY 06/18 09 AC 06/25 PO 0832 Atorvastatin Calcium 10 MG DAILY 06/18 09 AC 06/25 PO 0832 Budesonide/ 2 PUF BID 06/17 2100 AC 06/25 Formoterol Fumarate INH 0836 Cephalexin 500 MG BID 06/20 2100 AC 06/25 PO 0832 Cyanocobalamin 1,000 MCG DAILY 06/18 09 AC 06/25 PO 0833 Diltiazem HCl 240 MG DAILY 06/18 09 AC 06/25 PO 0832 Ferrous Sulfate 325 MG TID 06/17 2100 AC 06/25 PO 0832 Furosemide 40 MG ONE ONE 06/24 1600 CAN PO 06/24 1601 Furosemide 40 MG ONCE ONE 06/24 1600 DC 06/24 IV 06/24 1601 1610 Furosemide 40 MG DAILY 06/23 1030 AC 06/25 PO 0832 Guaifenesin 10 ML Q4P PRN 06/17 1600 AC 06/23 PO 1654 Insulin Aspart 0 TIDAC 06/17 1700 AC 06/25 SC 0832 Insulin Detemir 10 UNITS 06/18 0900 AC 06/25 SC 0832 Insulin Detemir 8 UNITS AT BEDTIME 06/17 2100 AC 06/24 SC 2020 Loperamide HCl 4 MG BID PRN 06/17 1615 AC PO Methylprednisolone 60 MG ONCE ONE 06/24 1230 DC 06/24 IV 06/24 1231 1347 Metoprolol Tartrate 25 MG BID 06/17 2100 AC 06/25 PO 0837 Omeprazole 40 MG 1/2H B/BREAKF/DINNER 06/17 1630 AC 06/25 PO 0637 Ondansetron HCl 4 MG ONCE PRN 06/22 0900 AC IV Potassium Chloride 20 MEQ DAILY 06/18 0900 AC 06/25 PO 0832 Prednisone 10 MG DAILY 06/22 09 AC 06/25 PO 06/27 0859 0833 Rivaroxaban 15 MG AT BEDTIME 06/17 2100 AC 06/24 PO 1944 Sodium Chloride 2 SPRAY Q4P PRN 06/19 1215 AC 06/19 CESAR 1718 Tiotropium [place] 1 PUF DAILY 06/18 09 AC 06/25 INH 0833 Review of Systems Review of Systems: He is complaining of edema as well Past History Travel History Traveled to [place] past 21 day No Medical History Blood Transfusion Hx: Yes Neurological: TIA 2010 EENT: cataracts Cardiovascular: AFIB, CHF, hypertension, hyperlipidemia Respiratory: COPD, 4L O2 DEPENDENT BIPAP AT NIGHT Gastrointestinal: GERD, ABD ANEURYSM Hepatic: NONE Renal: NONE Musculoskeletal: NONE Psychiatric: NONE Endocrine: NONE Blood Disorders: NONE Cancer(s): prostate cancer 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 FATHER, ; Cause: Myocardial infarct. SISTER, ; Cause: Myocardial infarct. Psychosocial History Where Do You Live? Home Who Do You Live With? spouse Services at Home: None Primary Language: Turkish Smoking Status: Former Smoker (quit 5 years ago) ETOH Use: denies use Illicit Drug Use: denies illicit drug use Living Will? unknown Power of Medical Customer Service Representative/HCP? unknown Functional Ability ADLs Independent: dressing, eating, toileting, bathing. Ambulation: independent IADLs Independent: shopping, housework, finances, food prep, telephone, transportation , medication admin. Exam & Diagnostic Data Vital Signs and I&O Vital Signs Date Time Temp Pulse Resp B/P B/P Pulse O2 O2 Flow FiO2 Mean Ox Delivery Rate 06/25 0858 18 95 Nasal 4.0L Cannula 06/25 0837 77 138/72 06/25 0754 95 BIPAP 35% 06/25 0748 99 95 06/25 0729 98.0 95 20 114/70 94 Nasal 5.0L Cannula 06/25 0040 82 92 / 0000 BIPAP 06/24 2233 88 92 06/24 2224 98.3 104 20 130/60 95 06/24 2130 102 92 BIPAP 06/24 2018 100 95 / 1943 104 130/60 06/24 1704 100 95 06/24 1647 97.4 98 16 116/74 92 BIPAP 06/24 1645 92 BIPAP 06/24 1600 87 Nasal 5.0L Cannula 06/24 1600 98.3 115 24 142/70 87 Nasal 5.0L Cannula 06/24 1028 99 122/60 Intake & Output 06/25 1600 06/25 0800 / 0000 / 1600 06/24 0800 06/24 0000 Intake Total 100 420 720 450 600 Output Total 175 1200 550 400 725 Balance -75 -780 170 50 -125 Intake, IV 20 Intake, Oral 100 400 720 450 600 Number 0 0 Bowel Movements Output, Urine 175 1200 550 400 725 Patient 166 lb Weight Weight Bed scale Measurement Method Physical Exam: Chronically ill-appearing male looking older than stated age currently on BiPAP machine, alert and cooperative. HEENT exam unremarkable Neck veins difficult to evaluate Chest decreased breath sounds and some very mild wheezing Heart irregular, high normal rate, systolic murmur at the base Extremities 2-3+ edema to the midcalf level Labs/Sridhar Results: Laboratory Tests 06/25 06/24 06/24 0625 2138 1655 Chemistry Sodium (137 - 145 mmol/L) 141 Potassium (3.5 - 5.1 mmol/L) 4.3 Chloride (98 - 107 mmol/L) 99 Carbon Dioxide (22 - 30 mmol/L) 35 H Anion Gap (5 - 16) 7 BUN (9 - 20 mg/dL) 62 H Creatinine (0.7 - 1.2 mg/dL) 1.7 H Estimated GFR (>60 ml/min) 40 L BUN/Creatinine Ratio (7 - 25 %) 36.5 H Troponin I (<0.11 ng/ml) 0.07 0.07 Hematology CBC w Diff NO MAN DIFF REQ WBC (4.8 - 10.8 /CUMM) 4.8 RBC (4.70 - 6.10 /CUMM) 2.45 L Hgb (14.0 - 18.0 G/DL) 7.5 L Hct (42 - 52 %) 22.7 L MCV (80.0 - 94.0 FL) 92.6 MCH (27.0 - 31.0 PG) 30.6 MCHC (33.0 - 37.0 G/DL) 33.0 RDW (11.5 - 14.5 %) 17.5 H Plt Count (130 - 400 /CUMM) 150 MPV (7.4 - 10.4 FL) 8.8 Gran % (42.2 - 75.2 %) 91.6 H Lymphocytes % (20.5 - 51.1 %) 4.2 L Monocytes % (1.7 - 9.3 %) 4.2 Eosinophils % (0 - 5 %) 0 Basophils % (0.0 - 2.0 %) 0 Absolute Granulocytes (1.4 - 6.5 /CUMM) 4.4 Absolute Lymphocytes (1.2 - 3.4 /CUMM) 0.2 L Absolute Monocytes (0.10 - 0.60 /CUMM) 0.2 Absolute Eosinophils (0.0 - 0.7 /CUMM) 0 Absolute Basophils (0.0 - 0.2 /CUMM) 0 06/24 06/24 1250 0814 Blood Gas Bicarbonate Actual (22 - 26 MEQ/L) 32 H Mixed VBG pH (7.31 - 7.41 PH) 7.27 L Mixed VBG pCO2 (41 - 51 TORR) 71 H Mixed VBG O2 Saturation (35 - 45 TORR) 26 L P-50 (Temp Corrected) N Carboxyhemoglobin (1.5 - 5.0 %) 3.2 O2 Concentration % 5L Temperature (97.0 - 100.0 FARH) 98.5 O2 Delivery Method N/C Chemistry Sodium (137 - 145 mmol/L) 142 Potassium (3.5 - 5.1 mmol/L) 4.0 Chloride (98 - 107 mmol/L) 103 Carbon Dioxide (22 - 30 mmol/L) 30 Anion Gap (5 - 16) 9 BUN (9 - 20 mg/dL) 63 H Creatinine (0.7 - 1.2 mg/dL) 1.7 H Estimated GFR (>60 ml/min) 40 L BUN/Creatinine Ratio (7 - 25 %) 37.1 H Miscellaneous Phlebotomy Draw Site RIGHT BRACHIAL 06/24 06/23 0740 1072 Hematology CBC w Diff MAN DIFF ORDERED NO MAN DIFF REQ WBC (4.8 - 10.8 /CUMM) 8.1 8.5 RBC (4.70 - 6.10 /CUMM) 2.51 L 2.59 L Hgb (14.0 - 18.0 G/DL) 7.4 *L 7.3 *L Hct (42 - 52 %) 22.4 L 22.8 L MCV (80.0 - 94.0 FL) 89.0 88.2 MCH (27.0 - 31.0 PG) 29.4 28.2 MCHC (33.0 - 37.0 G/DL) 33.0 32.0 L RDW (11.5 - 14.5 %) 17.7 H 17.9 H Plt Count (130 - 400 /CUMM) 160 165 MPV (7.4 - 10.4 FL) 8.9 8.1 Gran % (42.2 - 75.2 %) 90.0 H 94.8 H Lymphocytes % (20.5 - 51.1 %) 4.8 L 2.7 L Monocytes % (1.7 - 9.3 %) 4.4 2.3 Eosinophils % (0 - 5 %) 0.8 0.2 Basophils % (0.0 - 2.0 %) 0 0 Absolute Granulocytes (1.4 - 6.5 /CUMM) 7.3 H 8.1 H Absolute Lymphocytes (1.2 - 3.4 /CUMM) 0.4 L 0.2 L Absolute Monocytes (0.10 - 0.60 /CUMM) 0.4 0.2 Absolute Eosinophils (0.0 - 0.7 /CUMM) 0.1 0 Absolute Basophils (0.0 - 0.2 /CUMM) 0 0 Platelet Estimate (ADEQUATE) VERIFIED BY SMEAR Polychromasia 1+ Basophilic Stippling 2+ Anisocytosis 1+ Diagnostic Data EKG Results EKG shows atrial fibrillation rate 86, nonspecific interventricular conduction delay with left axis deviation and LVH. This is similar to his baseline. CXR Results PATIENT: COURTNEY VIEIRA PRESENT AGE: 68 PATIENT ACCOUNT NO: [id number] : 49 LOCATION: A ORDERING PHYSICIAN: Uzma Gordon MD SERVICE DATE: 06/24/18 EXAM TYPE: RAD - XRY-PORTABLE CHEST XRAY EXAMINATION: XR PORTABLE CHEST CLINICAL INFORMATION: Desaturation. Shortness of breath. COMPARISON: CXR from 06/22/2018. Chest CT from 12/25/2017, 02/27/2018 and 03/07/2018 TECHNIQUE: Portable frontal view of the chest was obtained. FINDINGS: Lungs are hyperexpanded from chronic emphysematous disease. Persistent diffuse interstitial opacity of both lungs. Although the interstitial opacity appears slightly improved in the left upper lobe, interstitial opacity has increased in the right lung compared to 06/22/2018. Chronic pleural-parenchymal scarring in right lateral lung base. No superimposed findings to suggest a newly developing pleural effusion. Cardiac silhouette is chronically enlarged. Also, the central right and left pulmonary arteries are chronically enlarged, suggestive of pulmonary arterial hypertension. There is atherosclerotic calcification of the aorta. Bones appear diffusely osteopenic. IMPRESSION: - Chronic emphysematous lung disease. - Cardiomegaly and enlarged pulmonary arteries, suggestive of pulmonary arterial hypertension. - Diffuse interstitial opacity in both lungs is nonspecific and could represent edema or pneumonitis. Pulmonary edema is favored given the slightly shifting distribution/severity of interstitial disease compared to 06/22/2018. DICTATED BY: Bala Chapman MD DATE/TIME DICTATED:06/24/181224 COMMUNITY RELATIONS REPRESENTATIVE:LINDY DATE/TIME TRANSCRIBED:06/24/181224 CONFIDENTIAL, DO NOT COPY WITHOUT APPROPRIATE AUTHORIZATION. <Electronically signed in Other Vendor System> SIGNED BY: Bala Chapman MD 06/24/18 4288 Assessment/Plan Assessment/Plan Courtney Vieira has numerous problems including end-stage COPD, chronic anemia, chronic atrial fibrillation, reduced left ventricular ejection fraction which has become progressively somewhat worse, MADISON on CKD. Currently his major problem appears to be respiratory. He also appears fluid overloaded with both peripheral edema and pulmonary edema. I suggest additional IV Lasix. He is on oral Lasix at this time but it does not appear to be too effective. Obviously we will need to watch his renal function closely but I think he is clearly fluid overloaded at this time. I recommend a follow-up echocardiogram which he last had about 4 months ago to see if there is any further deterioration in his left ventricular systolic function. I also note the patient is chronically anemic. He has had recent full GI workup without obvious bleeding but he has required transfusions on this admission. In addition, he is on an anticoagulant for his atrial fibrillation. A follow-up GI opinion would probably be of interest. Consult Acknowledgment - Thank you for your consult request.
--- NOTE | 2018-06-25 10:13 | PN- Pulmonary ---
Subjective HPI/Critical Care Issues: pt seen and examined he used bipap for most of the day yesterday with significant improvement dyspnea improved leg edema worsened he feels better overall no n/v/d/c no segura no cp no fevers, chills Objective Current Medications: Current Medications Sig/Eve Start time Last Medication Dose Route Stop Time Status Admin Acetaminophen 500 MG Q6P PRN 06/24 1145 AC PO Acetaminophen 650 MG Q6-PRN PRN 06/17 1615 AC PO Acetylcysteine 2 ML BID 06/22 09 AC 06/25 INH 0748 Albuterol Sulfate 3 ML EVERY 4 HRS/AWAKE 06/18 08 AC 06/25 INH 0748 Albuterol Sulfate 1 PUF Q4H PRN 06/17 1615 AC INH Albuterol Sulfate 3 ML Q6H PRN 06/17 1615 AC 06/22 INH 0046 Aspirin Buffered 81 MG DAILY 06/18 09 AC 06/25 PO 0832 Atorvastatin Calcium 10 MG DAILY 06/18 0900 AC 06/25 PO 0832 Budesonide/ 2 PUF BID 06/17 2100 AC 06/25 Formoterol Fumarate INH 0836 Cephalexin 500 MG BID 06/20 2100 AC 06/25 PO 0832 Cyanocobalamin 1,000 MCG DAILY 06/18 09 AC 06/25 PO 0833 Diltiazem HCl 240 MG DAILY 06/18 0900 AC 06/25 PO 0832 Ferrous Sulfate 325 MG TID 06/17 2100 AC 06/25 PO 0832 Furosemide 40 MG ONE ONE 06/24 1600 CAN PO 06/24 1601 Furosemide 40 MG ONCE ONE 06/24 1600 DC 06/24 IV 06/24 1601 1610 Furosemide 40 MG DAILY 06/23 1030 AC 06/25 PO 0832 Guaifenesin 10 ML Q4P PRN 06/17 1600 AC 06/23 PO 1654 Insulin Aspart 0 TIDAC 06/17 1700 AC 06/25 SC 0832 Insulin Detemir 10 UNITS 0900 06/18 0900 AC 06/25 SC 0832 Insulin Detemir 8 UNITS AT BEDTIME 06/17 2100 AC 06/24 SC 2020 Loperamide HCl 4 MG BID PRN 06/17 1615 AC PO Methylprednisolone 60 MG ONCE ONE 06/24 1230 DC 06/24 IV 06/24 1231 1347 Metoprolol Tartrate 25 MG BID 06/17 2100 AC 06/25 PO 0837 Omeprazole 40 MG 1/2H B/BREAKF/DINNER 06/17 1630 AC 06/25 PO 0637 Ondansetron HCl 4 MG ONCE PRN 06/22 900 AC IV Potassium Chloride 20 MEQ DAILY 06/18 09 AC 06/25 PO 0832 Prednisone 10 MG DAILY 06/22 900 AC 06/25 PO 06/27 0859 0833 Rivaroxaban 15 MG AT BEDTIME 06/17 2100 AC 06/24 PO 1944 Sodium Chloride 2 SPRAY Q4P PRN 06/19 1215 AC 06/19 CESAR 1718 Tiotropium [place] 1 PUF DAILY 06/18 900 AC 06/25 INH 0833 Vital Signs & I&O Last 24 Hrs of Vitals and I&O: Vital Signs Date Time Temp Pulse Resp B/P B/P Pulse O2 O2 Flow FiO2 Mean Ox Delivery Rate 06/25 0858 18 95 Nasal 4.0L Cannula 06/25 0837 77 138/72 06/25 0754 95 BIPAP 35% 06/25 0748 99 95 06/25 0729 98.0 95 20 114/70 94 Nasal 5.0L Cannula 06/25 0040 82 92 / 0000 BIPAP 06/24 2233 88 92 / 2224 98.3 104 20 130/60 95 /05 2130 102 92 BIPAP 06/24 2018 100 95 /05 1943 104 130/60 / 1704 100 95 / 1647 97.4 98 16 116/74 92 BIPAP 06/24 1645 92 BIPAP 06/24 1600 87 Nasal 5.0L Cannula 06/24 1600 98.3 115 24 142/70 87 Nasal 5.0L Cannula 06/24 1028 99 122/60 Intake & Output 06/25 1600 06 0800 08 0000 Intake Total 100 420 Output Total 175 1200 Balance -75 -780 Intake, IV 20 Intake, Oral 100 400 Number 0 Bowel Movements Output, Urine 175 1200 Exam Other Physical Findings: gen - awake and alert head/neck - o2 via nc cvs -s1, s2 lungs - b/l rare rhonchi abd - soft, bs+ ext - 2+ edema Results Last 24 Hrs of Lab Results: Laboratory Tests 06/25/18 0625: Anion Gap 7, Estimated GFR 40 L, BUN/Creatinine Ratio 36.5 H, CBC w Diff NO MAN DIFF REQ, RBC 2.45 L, MCV 92.6, MCH 30.6, MCHC 33.0, RDW 17.5 H, MPV 8.8, Gran % 91.6 H, Lymphocytes % 4.2 L, Monocytes % 4.2, Eosinophils % 0, Basophils % 0, Absolute Granulocytes 4.4, Absolute Lymphocytes 0.2 L, Absolute Monocytes 0.2, Absolute Eosinophils 0, Absolute Basophils 0 06/24/18 2138: Troponin I 0.07 06/24/18 1655: Troponin I 0.07 06/24/18 1250: Bicarbonate Actual 32 H, Mixed VBG pH 7.27 L, Mixed VBG pCO2 71 H, Mixed VBG O2 Saturation 26 L, P-50 (Temp Corrected) N, Carboxyhemoglobin 3.2, O2 Concentration % 5L, Temperature 98.5, O2 Delivery Method N/C, Phlebotomy Draw Site RIGHT BRACHIAL Impression/Plan Impression/Plan Impression/Plan: Impression 68 year old man * acute exacerbation of COPD * CXR suggestive of congestion/edema and with worsened leg edema - concern for CHF exacerbation/volume overload * sputum with Klebsiella, Staph Aureus - atelectasis vs. pneumonia - * chronic hypoxemic respiratory failure * Hx of BHARATHI * stable anemia Plan -DISCONTINUE Mucomyst -f/u cardiology input - consider diuresis given worsened edema -steroid taper as ordered - on po prednisone -trc/nebs, continue inhalers -Klebsiella/staph in sputum - cont abx -anemia per primary team -no Diamox at this time - it can increase respiratory drive -continue NIV BiPAP nocturnally and as needed DVT prophylaxis at all times
--- NOTE | 2018-06-25 14:44 | PN- Nephrology ---
Assessment/Plan Nephrology Assessment: 1. CKD stage III secondary to hypertensive/diabetic nephrosclerosis 2. MADISON secondary to decreased renal perfusion -improved -creatinine now at baseline 3. COPD exacerbation with possible pneumonia 4. Volume overload with edema, hypoalbuminemia and likely an element of CHF as well 5. Severe anemia, albeit recently stable Suggestion: 1. Would start him back on parenteral Lasix beginning with a dose of 40 mg IV every 12 hours while monitoring intake and output, weights and renal function 2. Agree with Cardiology that it might be beneficial to ask GI to reassess Subjective Subjective: Patient claims to be breathing comfortably but remains oxygen dependent with the need for frequent respiratory treatments. Creatinine down to baseline of 1.7. CO2 is up to 35 in compensation for his chronic hypercarbia. Objective Vital Signs and I&Os Vital Signs Date Time Temp Pulse Resp B/P B/P Pulse O2 O2 Flow FiO2 Mean Ox Delivery Rate 06/25 1337 BIPAP 06/25 1223 106 98 06/25 1031 53 98 06/25 0858 18 95 Nasal 4.0L Cannula 06/25 0837 77 138/72 06/25 0800 Nasal 4.0L Cannula 06/25 0754 95 BIPAP 35% 06/25 0748 99 95 06/25 0729 98.0 95 20 114/70 94 Nasal 5.0L Cannula 06/25 0040 82 92 / 0000 BIPAP 06/24 2233 88 92 06/24 2224 98.3 104 20 130/60 95 /05 2130 102 92 BIPAP 06/24 2018 100 95 /05 1943 104 130/60 / 1704 100 95 / 1647 97.4 98 16 116/74 92 BIPAP 06/24 1645 92 BIPAP 06/24 1600 87 Nasal 5.0L Cannula 06/24 1600 98.3 115 24 142/70 87 Nasal 5.0L Cannula Intake & Output 06/25 0400 06/24 1600 06/24 0400 06/23 0400 Intake Total 977 947 9056 600 950 540 Output Total 175 1200 564 015 1528 200 Balance 603 -587 028 -070 -022 340 Intake, IV 30 20 50 300 Intake, Oral 855 477 5033 600 900 240 Number 0 0 0 Bowel Movements Output, Urine 175 1200 035 794 6915 200 Patient 166 lb 168 lb Weight Weight Bed scale Measurement Method Physical Exam: General: Chronically ill-appearing, white male, receiving a respiratory treatment, in NAD Skin: Multiple ecchymoses diffusely without rash or jaundice HEENT: Conjunctivae pale, sclerae anicteric, mucous membranes dry Neck: Without masses or thyromegaly, no supraclavicular or cervical adenopathy Chest: Poor air entry bilaterally Heart: Irregular rhythm without S3 or rub Abdomen: Soft and nontender without palpable masses or organomegaly Extremities: Without cyanosis; 2-3+ LE edema Neuro: Awake and alert without focal findings; no asterixis or myoclonus Results Pertinent Lab Results: Laboratory Tests 06/25 06/24 06/24 0625 2138 1655 Chemistry Sodium (137 - 145 mmol/L) 141 Potassium (3.5 - 5.1 mmol/L) 4.3 Chloride (98 - 107 mmol/L) 99 Carbon Dioxide (22 - 30 mmol/L) 35 H Anion Gap (5 - 16) 7 BUN (9 - 20 mg/dL) 62 H Creatinine (0.7 - 1.2 mg/dL) 1.7 H Estimated GFR (>60 ml/min) 40 L BUN/Creatinine Ratio (7 - 25 %) 36.5 H Troponin I (<0.11 ng/ml) 0.07 0.07 Hematology CBC w Diff NO MAN DIFF REQ WBC (4.8 - 10.8 /CUMM) 4.8 RBC (4.70 - 6.10 /CUMM) 2.45 L Hgb (14.0 - 18.0 G/DL) 7.5 L Hct (42 - 52 %) 22.7 L MCV (80.0 - 94.0 FL) 92.6 MCH (27.0 - 31.0 PG) 30.6 MCHC (33.0 - 37.0 G/DL) 33.0 RDW (11.5 - 14.5 %) 17.5 H Plt Count (130 - 400 /CUMM) 150 MPV (7.4 - 10.4 FL) 8.8 Gran % (42.2 - 75.2 %) 91.6 H Lymphocytes % (20.5 - 51.1 %) 4.2 L Monocytes % (1.7 - 9.3 %) 4.2 Eosinophils % (0 - 5 %) 0 Basophils % (0.0 - 2.0 %) 0 Absolute Granulocytes (1.4 - 6.5 /CUMM) 4.4 Absolute Lymphocytes (1.2 - 3.4 /CUMM) 0.2 L Absolute Monocytes (0.10 - 0.60 /CUMM) 0.2 Absolute Eosinophils (0.0 - 0.7 /CUMM) 0 Absolute Basophils (0.0 - 0.2 /CUMM) 0 06/24 06/24 1250 0814 Blood Gas Bicarbonate Actual (22 - 26 MEQ/L) 32 H Mixed VBG pH (7.31 - 7.41 PH) 7.27 L Mixed VBG pCO2 (41 - 51 TORR) 71 H Mixed VBG O2 Saturation (35 - 45 TORR) 26 L P-50 (Temp Corrected) N Carboxyhemoglobin (1.5 - 5.0 %) 3.2 O2 Concentration % 5L Temperature (97.0 - 100.0 FARH) 98.5 O2 Delivery Method N/C Chemistry Sodium (137 - 145 mmol/L) 142 Potassium (3.5 - 5.1 mmol/L) 4.0 Chloride (98 - 107 mmol/L) 103 Carbon Dioxide (22 - 30 mmol/L) 30 Anion Gap (5 - 16) 9 BUN (9 - 20 mg/dL) 63 H Creatinine (0.7 - 1.2 mg/dL) 1.7 H Estimated GFR (>60 ml/min) 40 L BUN/Creatinine Ratio (7 - 25 %) 37.1 H Miscellaneous Phlebotomy Draw Site RIGHT BRACHIAL 06/24 06/23 0740 1925 Hematology CBC w Diff MAN DIFF ORDERED NO MAN DIFF REQ WBC (4.8 - 10.8 /CUMM) 8.1 8.5 RBC (4.70 - 6.10 /CUMM) 2.51 L 2.59 L Hgb (14.0 - 18.0 G/DL) 7.4 *L 7.3 *L Hct (42 - 52 %) 22.4 L 22.8 L MCV (80.0 - 94.0 FL) 89.0 88.2 MCH (27.0 - 31.0 PG) 29.4 28.2 MCHC (33.0 - 37.0 G/DL) 33.0 32.0 L RDW (11.5 - 14.5 %) 17.7 H 17.9 H Plt Count (130 - 400 /CUMM) 160 165 MPV (7.4 - 10.4 FL) 8.9 8.1 Gran % (42.2 - 75.2 %) 90.0 H 94.8 H Lymphocytes % (20.5 - 51.1 %) 4.8 L 2.7 L Monocytes % (1.7 - 9.3 %) 4.4 2.3 Eosinophils % (0 - 5 %) 0.8 0.2 Basophils % (0.0 - 2.0 %) 0 0 Absolute Granulocytes (1.4 - 6.5 /CUMM) 7.3 H 8.1 H Absolute Lymphocytes (1.2 - 3.4 /CUMM) 0.4 L 0.2 L Absolute Monocytes (0.10 - 0.60 /CUMM) 0.4 0.2 Absolute Eosinophils (0.0 - 0.7 /CUMM) 0.1 0 Absolute Basophils (0.0 - 0.2 /CUMM) 0 0 Platelet Estimate (ADEQUATE) VERIFIED BY SMEAR Polychromasia 1+ Basophilic Stippling 2+ Anisocytosis 1+ 08/04 0624 Chemistry Sodium (137 - 145 mmol/L) 139 Potassium (3.5 - 5.1 mmol/L) 4.1 Chloride (98 - 107 mmol/L) 102 Carbon Dioxide (22 - 30 mmol/L) 31 H Anion Gap (5 - 16) 5 BUN (9 - 20 mg/dL) 74 H Creatinine (0.7 - 1.2 mg/dL) 1.9 H Estimated GFR (>60 ml/min) 35 L BUN/Creatinine Ratio (7 - 25 %) 38.9 H Hematology CBC w Diff MAN DIFF ORDERED WBC (4.8 - 10.8 /CUMM) 7.9 RBC (4.70 - 6.10 /CUMM) 2.40 L Hgb (14.0 - 18.0 G/DL) 7.4 *L Hct (42 - 52 %) 22.2 L MCV (80.0 - 94.0 FL) 92.7 MCH (27.0 - 31.0 PG) 30.8 MCHC (33.0 - 37.0 G/DL) 33.3 RDW (11.5 - 14.5 %) 17.0 H Plt Count (130 - 400 /CUMM) 160 MPV (7.4 - 10.4 FL) 8.9 Gran % (42.2 - 75.2 %) 89.8 H Lymphocytes % (20.5 - 51.1 %) 5.6 L Monocytes % (1.7 - 9.3 %) 4.1 Eosinophils % (0 - 5 %) 0.5 Basophils % (0.0 - 2.0 %) 0 Absolute Granulocytes (1.4 - 6.5 /CUMM) 7.0 H Segmented Neutrophils (42.2 - 75.2 %) 94 H Absolute Lymphocytes (1.2 - 3.4 /CUMM) 0.4 L Lymphocytes (20.5 - 51.1 %) 4 L Monocytes (1.7 - 9.3 %) 2 Absolute Monocytes (0.10 - 0.60 /CUMM) 0.3 Absolute Eosinophils (0.0 - 0.7 /CUMM) 0 Absolute Basophils (0.0 - 0.2 /CUMM) 0 Nucleated RBCs (0.0 - 0.0 /100WBC) 1 H Platelet Estimate (ADEQUATE) VERIFIED BY SMEAR Polychromasia 1+ Basophilic Stippling 1+ Anisocytosis 1+
--- NOTE | 2018-06-25 14:51 | RADIOLOGY REPORT ---
EXAMINATION: XR CHEST CLINICAL INFORMATION: Desaturation. COMPARISON: CXR from 06/22/2018 and 06/24/2018 TECHNIQUE: 2 views of the chest were obtained. FINDINGS: Cardiomegaly with congested appearance of pulmonary vessels. Persistent diffuse interstitial opacity -- similar in appearance in the right lung and slightly worse in the left upper lobe compared to 06/24/2018 (but unchanged in the left upper lobe compared to 06/22/2018). The right lateral costophrenic sulcus is blunted from pleuroparenchymal scarring or trace pleural effusion, unchanged. Curvilinear opacity outlines a large bulla of the right lower lobe. Again noted is the large cardiac silhouette and prominent central pulmonary vessels. Bones appear diffusely osteopenic. IMPRESSION: Cardiomegaly and persistent diffuse interstitial opacity, suggestive of interstitial edema. Radiographically unable to exclude superimposed inflammatory thickening of airway mercado. Bronchitis would have to be excluded on the basis of clinical criteria. Overall, findings in the chest are similar to those observed on 06/22/2018 and 06/24/2018.
--- NOTE | 2018-06-25 14:51 | Discharge Summary ---
Visit Information Visit Dates Admission Date: 06/17/18 Hospital Course Course Attending Physician: Akash CR,Anushka Gallego Primary Care Physician: Prabhakar Pearce MD Consulting Request: 1 Consulting Specialty: Nephrology Consulting Physician: Jon Rae MD Reason for Consult: Inceased Cr., MADISON on CKD Consulting Request: 2 Consulting Specialty: Cardiology Consulting Physician: Landry Walton MD, V. Reason for Consult: CHF, Pulmonary edema Consulting Request: 3 Consulting Specialty: Pulmonary Disease Consulting Physician: Mark So MD Reason for Consult: COPD exacerbation Hospital Course: Mr. Vieira is a 68-year-old male with past medical history of COPD, CHF, A. fib, diabetes mellitus, and other medical problems who has been admitted here with chief complaint of shortness of breath and exacerbation of COPD with positive cultures. He will be dicharged to home tomorrow morning. He denies rehab and likes to go home. Acute COPD exacerbation: His lung examination has improved, and he is on his own BiPAP machine. Plan: Prednisone was tapered per pulmonology consult. He is receiving acetylcysteine inhalant, he is on his own BiPAP machine per vp of technology. Congestive heart failure: He was diagnosed with congestive heart failure with ejection fraction of 35-40%. He has moderate to severe pulmonary hypertension, which is not new. Plan: IV Lasix 40 mg twice daily. Will be discharged on PO Lasix 40mg BID based on cardioliogist consult. Pneumonia: Lower respiratory cultures were positive for Staph. areus (non-MRSA) and Klebsiella pneumonia. Plan: He received Keflex 500 p.o. and the course was completed. Anemia: He had a total of 2 transfusions in his admission. His last Hb is stable at 7.6. Plan: We will recheck and follow H&H closely. He is currently on Xarelto with guiac positive result. Line Maintenance Technician consult was appreciated. DM: Blood sugar level has been controlled. He is not compliant with his diet. Plan: We will continue insulin and continue the hold of metformin due to decreased renal function. Acute on chronic renal failure (Stage 4): Creatinine is back to baseline 1.7-1.6 from 2.5 and has been stable for 2 days. Plan: We will avoid renal toxic medications (NSAIDS and metformin). Allergies: Coded Allergies: No Known Allergies (04/10/18) Disposition Summary Disposition Principal Diagnosis: Acute COPD exacerbation Pneumonia Pulmonary Edema Additional Diagnosis: Anemia GI bleeding (unkown source, will undergo capsule endoscopy) DM on insulin Acute on chronic renal failure CHF -acute on chronic systolic heart failure Discharge Disposition: home health services Discharge Instructions Medications at Discharge Discharge Medications: Stop taking the following medications: Metformin HCl (Metformin HCl) 1,000 MG TABLET ORAL Every Morning Continue taking these medications: Tiotropium Ebro (Spiriva) 18 MCG CAP.W.DEV 1 Capsule Inhale through mouth DAILY Comments: Last Taken: 07/01/18 Time: 800AM Budesonide/Formoterol Fumarate (Symbicort 160-4.5 Mcg Inhaler) 160 MCG-4.5 MCG/ ACTUATION HFA.AER.AD 2 Puff Inhale through mouth TWICE DAILY Comments: Last Taken: 07/01/18 Time: 08:05 AM Albuterol Sulfate (Proair Hfa) 90 MCG HFA.AER.AD 1 Puff Inhale through mouth Q4H as needed for SHORTNESS OF BREATH Comments: NOT GIVEN IN HOSPITAL Albuterol Sulfate (Albuterol Sulfate) 2.5 MG/3 ML (0.083 %) VIAL.NEB 1 Vial Inhale Solution Q6H as needed for SHORTNESS OF BREATH Comments: Last Taken: 06/22/18 Time: 12:46 AM Pantoprazole Sodium (Protonix) 40 MG TABLET. 1 Tablet ORAL DAILY Comments: Last Taken: 07/01/18 Time: 06:54 AM OMEPRAZOLE GIVEN IN HOSPITAL Ferrous Sulfate (Ferrous Sulfate) 325 MG TABLET. 325 Millig[place] ORAL TWICE DAILY Days = 30 Comments: Last Taken: 07/01/18 Time: 800AM Cyanocobalamin (Vitamin B-12) (B-12) 1,000 MCG TABLET 1 Tablet ORAL DAILY Comments: Last Taken: 07/01/18 Time: 08:04 AM Loperamide HCl (Loperamide) 2 MG CAPSULE 2 Capsule ORAL TWICE DAILY as needed for ANTI-DIARRHEAL Comments: NOT GIVEN WHILE IN HOSPITAL Metoprolol Tartrate (Metoprolol Tartrate) 25 MG TABLET 1 Tablet ORAL TWICE DAILY Qty = 30 Comments: Last Taken: 07/01/18 Time: 801AM Insulin Detemir (Levemir) 100 UNIT/ML VIAL 10 Units SC 0900 Qty = 1 Comments: Last Taken: 04/24/18 Time: 08:05 AM Insulin Detemir (Levemir) 100 UNIT/ML VIAL 8 Units SC AT BEDTIME Qty = 1 Comments: Last Taken: 06/30/18 Time: 21:33 PM Diltiazem HCl (Cardizem Cd) 240 MG CAP.ER.24H 240 Milligram ORAL DAILY Qty = 30 Comments: Last Taken: 07/01/18 Time: 08:05 AM Mometasone Furoate (Nasonex) 50 MCG SPRAY.PUMP 1 [place] Both sides of nose DAILY Comments: NOT GIVEN IN HOSPITAL Insulin Aspart (Novolog) (Unknown Strength) VIAL Unknown Dose SC SEE SLIDING SCALE Comments: Last Taken: 06/30/18 Time: 500PM Aspirin (Ecotrin*) 81 MG TABLET.DR 1 Tablet ORAL DAILY Comments: Last Taken: 07/01/18 Time: 800AM Atorvastatin Calcium (Atorvastatin Calcium) 10 MG TABLET 1 Tablet ORAL DAILY Comments: Last Taken: 07/01/18 Time: 800AM Furosemide (Lasix) 40 MG TABLET 1 Tablet ORAL TWICE DAILY Comments: Last Taken: 07/01/18 Time: 700AM Potassium Chloride (Potassium Chloride) 20 MEQ TAB.ER.PRT 1 Tablet ORAL DAILY Comments: Last Taken: 07/01/18 Time: 801AM Rivaroxaban (Xarelto) 20 MG TABLET 1 Tablet ORAL DAILY Instructions: with food Comments: Last Taken: 07/01/18 Time: 940PM
[2018-06-25 14:59] VITALS: BP 122/66
[2018-06-25 21:49] VITALS: BP 124/66
[2018-06-26 06:20] VITALS: BP 124/70
--- NOTE | 2018-06-26 06:33 | PN- Housestaff ---
David Gil 06/26/18 0633: Subjective Follow-up For: Acute COPD exacerbation Pneumonia IDDM Acute on chronic renal failure Subjective: He visited Mr. Vieira this morning at 7, he was alert and oriented 3, with nasal cannula, in no acute distress, did not have any complaints of respiration or night. [place] better comparing to yesterday.He has been working with PT and is able to get out of bed to the chair without using walker. Review of Systems Constitutional: Reports: see HPI. Objective Last 24 Hrs of Vital Signs/I&O Vital Signs Date Time Temp Pulse Resp B/P B/P Pulse O2 O2 Flow FiO2 Mean Ox Delivery Rate 06/26 0620 98.4 90 18 124/70 98 BIPAP 06/26 0019 84 98 06/26 0000 94 BIPAP 06/25 2215 93 98 06/25 2149 98.6 98 19 124/66 97 BIPAP 06/25 2017 95 BIPAP 35% 06/25 2011 81 95 06/25 2004 128/78 06/25 1642 78 98 06/25 1600 BIPAP 4.0L 06/25 1459 98.4 97 20 122/66 96 BIPAP 06/25 1337 BIPAP 06/25 1223 106 98 06/25 1031 53 98 / 0858 18 95 Nasal 4.0L Cannula 06/25 0837 77 138/72 06/25 0800 Nasal 4.0L Cannula 06/25 0754 95 BIPAP 35% 06/25 0748 99 95 / 0729 98.0 95 20 114/70 94 Nasal 5.0L Cannula Intake & Output 06/26 0800 08/07 0000 06 1600 Intake Total 120 120 530 Output Total 650 350 Balance -530 -230 530 Intake, IV 30 Intake, Oral 120 120 500 Number 1 0 Bowel Movements Output, Urine 650 350 Patient 165 lb Weight Weight Bed scale Measurement Method Physical Exam General Appearance: Alert, Oriented X3, Cooperative, No Acute Distress Skin: No Rashes Skin Temp/Moisture Exam: Warm/Dry Sepsis Skin Exam (color): Normal for Ethnicity HEENT: Atraumatic Cardiovascular: Regular Rate, Normal S1, Normal S2 Lungs: improved bilateral breathing sounds comparing to yesterday Abdomen: Normal Bowel Sounds, Soft, No Tenderness Neurological: Normal Speech Extremities: 2+ pitting edema bilateral Vascular: Normal Pulses, Pulses Symmetrical Sepsis Peripheral Pulse Location: Dorsalis Pedis Sepsis Peripheral Pulse Exam: Normal Sepsis Cap Refill Exam: <2 Sec Assessment/Plan Assessment: Mr. Vieira is a 68-year-old male with past medical history of COPD, CHF, A. fib, diabetes mellitus, and other medical problems who has been admitted here with chief complaint of shortness of breath and exacerbation of COPD with positive cultures. He is currently fluid overloaded. His lung examination has improved comparing to yesterday. Fur Puller, Dr. Walton, has visited the patient again. Acute COPD exacerbation: His lung examination has improved comparing to yesterday. Plan: Prednisone is being tapered per pulmonology consult, today 10 mg p.o. He is receiving acetylcysteine inhalant, RTC, and NIV BiPAP as per executive producer. Congestive heart failure: He was diagnosed with congestive heart failure with ejection fraction of 30-35%. Fur Puller followed up with the patient today. Plan: IV Lasix 40 mg twice daily, waiting for the results of echocardiogram. He had a total weight loss of 5 pounds since 4 days ago. Pneumonia: Lower respiratory cultures were positive for Staph. areus (non-MRSA) and Klebsiella pneumonia. Plan: He is on Cephalexin 500 BID PO day 6. Anemia: He had a total of 2 transfusions in his admission. His last Hb is 7.6. Plan: We will recheck and follow H&H closely. He is currently on Xarelto with guiac positive result. We have consulted Dr. Walton, employee relations assistant. DM: Blood sugar level has been controlled. He is not compliant with his diet Plan: We will continue insulin and continue the hold of metformin due to decreased renal function. Acute on chronic renal failure (Stage 4): Creatinine is back to baseline 1.7 from 2.5 and has been stable for 2 days. Plan: We will avoid renal toxic medications (NSAIDS and metformin). We will recheck BEP tomorrow morning. Problem List: 1. COPD exacerbation 2. Pneumonia 3. Diabetes mellitus 4. MADISON (acute kidney injury) 5. Chronic renal failure 6. CHF (congestive heart failure) Pain Ratin Pain Location: NA Pain Goal: Remain pain free Pain Plan: NA Tomorrow's Labs & Rationales: BEP CBC Consulting Request: Consulting Specialty: Pulmonary Disease Consulting Physician: Mark So MD Reason for Consult: COPD exacerbation Anushka Bustos MD 06/26/18 0957: Attending MD Review Statement Attending Statement Attending MD Statement: examined this patient, discuss w/resident/PA/ROPE LAYING MACHINE OPERATOR, agreed w/resident/PA/ROPE LAYING MACHINE OPERATOR, reviewed EMR data (avail), discussed with nursing, discussed with case mgmt, reviewed images Attending Assessment/Plan: Appreciate nephrology and cardiology follow-up. They both feel that the patient is volume overloaded with relation to his CKD. And we are going to do Lasix 40 IV every 12. At this point I do not think calling GI will have any utility. He was extremely high risk for his procedure last time and we had to take him off his Xarelto, have anesthesia involved and he had his endoscopy and colonoscopy in April of this year. Will watch his hemoglobin it lives in the 7.5-7.7 range. We have also talked to him about his diet while he is on the prednisone taper and will follow closely.
--- NOTE | 2018-06-26 08:10 | PN- Student ---
Subjective Subjective: Pt seen and examined this morning. He had no acute overnight events and remained on BIPAP. Pt denied CP, abdominal pain, leg pain, headache. He felt his usual dyspnea. At this time, patient is very upset regarding diet control. He does not want to limit intake of sugar while on prednisone as he says he has never done this before. Objective Objective: Vital Signs Date Time Temp Pulse Resp B/P B/P Pulse O2 O2 Flow FiO2 Mean Ox Delivery Rate 06/26 0912 90 124/70 06/26 0620 98.4 90 18 124/70 98 BIPAP 06/26 0019 84 98 06/26 0000 94 BIPAP 06/25 2215 93 98 06/25 2149 98.6 98 19 124/66 97 BIPAP 06/25 2017 95 BIPAP 35% 06/25 2011 81 95 06/25 2004 128/78 06/25 1642 78 98 06/25 1600 BIPAP 4.0L 06/25 1459 98.4 97 20 122/66 96 BIPAP 06/25 1337 BIPAP 06/25 1223 106 98 06/25 1031 53 98 Intake & Output 06/26 1600 06/26 0800 06/26 0000 Intake Total 120 120 Output Total 650 350 Balance -530 -230 Intake, Oral 120 120 Number 1 Bowel Movements Output, Urine 650 350 Patient 165 lb Weight Weight Bed scale Measurement Method Exam deferred as patient was upset with nursing staff and declined adamantly. See resident note for exam. Results Results: Laboratory Tests 06/26/18 0715: Anion Gap 6, Estimated GFR 40 L, BUN/Creatinine Ratio 33.5 H, CBC w Diff NO MAN DIFF REQ, RBC 2.59 L, MCV 89.6, MCH 29.2, MCHC 32.6 L, RDW 18.1 H, MPV 8.9, Gran % 89.6 H, Lymphocytes % 5.4 L, Monocytes % 4.7, Eosinophils % 0.2, Basophils % 0.1, Absolute Granulocytes 7.9 H, Absolute Lymphocytes 0.5 L, Absolute Monocytes 0.4, Absolute Eosinophils 0, Absolute Basophils 0 06/25/18 0625: Anion Gap 7, Estimated GFR 40 L, BUN/Creatinine Ratio 36.5 H, CBC w Diff NO MAN DIFF REQ, RBC 2.45 L, MCV 92.6, MCH 30.6, MCHC 33.0, RDW 17.5 H, MPV 8.8, Gran % 91.6 H, Lymphocytes % 4.2 L, Monocytes % 4.2, Eosinophils % 0, Basophils % 0, Absolute Granulocytes 4.4, Absolute Lymphocytes 0.2 L, Absolute Monocytes 0.2, Absolute Eosinophils 0, Absolute Basophils 0 06/24/18 2138: Troponin I 0.07 06/24/18 1655: Troponin I 0.07 06/24/18 1250: Bicarbonate Actual 32 H, Mixed VBG pH 7.27 L, Mixed VBG pCO2 71 H, Mixed VBG O2 Saturation 26 L, P-50 (Temp Corrected) N, Carboxyhemoglobin 3.2, O2 Concentration % 5L, Temperature 98.5, O2 Delivery Method N/C, Phlebotomy Draw Site RIGHT BRACHIAL 06/24/18 0814: Anion Gap 9, Estimated GFR 40 L, BUN/Creatinine Ratio 37.1 H 06/24/18 0740: CBC w Diff MAN DIFF ORDERED, RBC 2.51 L, MCV 89.0, MCH 29.4, MCHC 33.0, RDW 17.7 H, MPV 8.9, Gran % 90.0 H, Lymphocytes % 4.8 L, Monocytes % 4.4, Eosinophils % 0.8, Basophils % 0, Absolute Granulocytes 7.3 H, Absolute Lymphocytes 0.4 L, Absolute Monocytes 0.4, Absolute Eosinophils 0.1, Absolute Basophils 0, Platelet Estimate VERIFIED BY SMEAR, Polychromasia 1+, Basophilic Stippling 2+, Anisocytosis 1+ 06/23/181924: CBC w Diff NO MAN DIFF REQ, RBC 2.59 L, MCV 88.2, MCH 28.2, MCHC 32.0 L, RDW 17.9 H, MPV 8.1, Gran % 94.8 H, Lymphocytes % 2.7 L, Monocytes % 2.3, Eosinophils % 0.2, Basophils % 0, Absolute Granulocytes 8.1 H, Absolute Lymphocytes 0.2 L, Absolute Monocytes 0.2, Absolute Eosinophils 0, Absolute Basophils 0 Assessment/Plan Assessment: Assessment: Pt is a 68YOM with PMH of CKD stage 4 GFR of 40, COPD on 4LO2 during the day and BIPAP at night, CHF with 30-35% EF as of February 2018, Afib on cardizem and metoprolol who presented to the ED 10 days ago with cough productive of sputum and dyspnea. He was found to have pneumonia and COPD exascerbation, MADISON with Cr at 2.5, guiac + stool, and sore on the L buttocks. Sputum cx + for klebsiella pneumo, yeast, and MSSA. Pt started on keflex. Pt found to have Hb of 6.7 and so was transfused x2 units PRBCs with current Hb in 7s x3 days. CXR 06/24/18 shows improvement in opacity in [place] and worsened opacification of R lung along with cardiomegaly and pulmonary artery congestion c/w PA HTN and pulmonary edema. Lumbar Xray d/t sacrococcygeal pain showed no fractures. Two days ago, pt experienced CO2 retention desatting to 80s on 5LNC and so was placed on BIPAP and recovered well, now satting in 90s. Troponins drawn d/t chest discomfort are 0.07 x2. Problem List/Plan 1. Pneumonia Pt has long hx of COPD and so is susceptible to respiratory infection. - Pt is on day 6 of keflex, continue - Pt is on prednisone taper after IV solumedrol 2 days ago, continue, finish taper tomorrow - Pt is on continuous BIPAP and can come on/off on his own as per Dr. So 2. COPD Exascerbation Pt has longstanding COPD and his respiratory status has been decompensated d/t this episode of pneumonia. - Continue prednisone taper, complete tomorrow - Continue albuterol, symbicort, and spiriva - F/u pulmonology recs 3. Pulmonary edema and PA HTN Pt has CHF with EF of 30-35% which has been worsened by fluids and albumin pt received in light of current MADISON. - I/O strict, pt diuresed -530cc since midnight - Continue Lasix 40mg PO daily and f/u whether more Lasix is required - Continue cardizem and metoprolol 4. Anemia Pt was anemic w/ Hb of 6.7 on admission and has been transfused w/ 2 units pRBCs. This is likely GI loss which was worked up in April 2018 with EGD and colonoscopy. Pt was recommended to f/u outpatient and he has not done so. GI consult will not be pursued as patient was recently scoped and no source of the bleeding was found from above or below. - Hb stable for now at 7.6 today - Cardiology does not recommend d/c xarelto d/t hx of afib 5. Acute on chronic kidney injury Pt likely experiencing kidney injury d/t acute infection in the setting of CKD Stage 4. - Continue monitoring BUN/Cr and GFR - Nephro signed off on 06/22/18 6. DM Pt has hx of diabetes for which he takes metformin. - Continue holding metformin until MADISON resolves completely (pt's baseline Cr is ~1.7) as pt is at increased risk of lactic acidosis - Continue tx with sliding scale 7. Sacrococcygeal ulcer Pt has sacrococcygeal ulcer(s) since before admission which are not worsening but which cause the patient pain. They are likely d/t his sedentary lifestyle. - Dr. Miles consulted for wound care. - continue offloading area - Apply barrier cream or duoderm to prevent skin breakdown Diet: regular DVT: xarelto Code: full Plan:
[2018-06-26 08:36] LABS: ABSOLUTE BASOPHIL COUNT 0 /CUMM (0.0-0.2); ABSOLUTE EOSINOPHIL COUNT 0 /CUMM (0.0-0.7); ABSOLUTE LYMPH COUNT 0.5 /CUMM (1.2-3.4); ABSOLUTE MONOCYTE COUNT 0.4 /CUMM (0.10-0.60); BASOPHIL % 0.1 % (0.0-2.0)
[2018-06-26 09:16] LABS: ABSOLUTE GRANULOCYTE CT 7.9 /CUMM (1.4-6.5); EOSINOPHIL % 0.2 % (0-5); HEMATOCRIT 23.2 % (42-52); MEAN CORPUSCULAR HGB 29.2 PG (27.0-31.0); MEAN CORPUSCULAR HGB CONC 32.6 G/DL (33.0-37.0); MEAN CORPUSCULAR VOLUME 89.6 FL (80.0-94.0); MEAN PLATELET VOLUME 8.9 FL (7.4-10.4); PLATELET COUNT 159 /CUMM (130-400); RBC DISTRIBUTION WIDTH 18.1 % (11.5-14.5); RED BLOOD CELL CT 2.59 /CUMM (4.70-6.10)
[2018-06-26 09:18] LABS: WHITE BLOOD CELL COUNT 8.8 /CUMM (4.8-10.8)
[2018-06-26 09:33] LABS: GRANULOCYTE % 89.6 % (42.2-75.2)
--- NOTE | 2018-06-26 10:52 | PN- Cardiology ---
Subjective Subjective: The patient is on BiPAP. He seems comfortable. He states his breathing is a little bit better. He has no chest pain. He is back on IV Lasix. His renal function is stable. Echocardiogram is pending. Objective Vital Signs and I&Os Vital Signs Date Time Temp Pulse Resp B/P B/P Pulse O2 O2 Flow FiO2 Mean Ox Delivery Rate 06/26 0912 90 124/70 / 0620 98.4 90 18 124/70 98 BIPAP 06/26 0019 84 98 06/26 0000 94 BIPAP 06/25 2215 93 98 06/25 2149 98.6 98 19 124/66 97 BIPAP 06/25 2017 95 BIPAP 35% 06/25 2011 81 95 06/25 2004 128/78 06/25 1642 78 98 06/25 1600 BIPAP 4.0L 06/25 1459 98.4 97 20 122/66 96 BIPAP 06/25 1337 BIPAP 06/25 1223 106 98 Intake & Output 06/26 1600 06/26 0800 06/26 0000 06/25 1600 06/25 0806/25 0000 Intake Total 120 120 530 100 420 Output Total 650 089 936 0432 Balance -530 -230 530 -75 -780 Intake, IV 30 20 Intake, Oral 120 120 500 100 400 Number 1 0 0 Bowel Movements Output, Urine 650 820 904 9009 Patient 165 lb Weight Weight Bed scale Measurement Method Physical Exam: Chronically ill on BiPAP in no acute distress HEENT exam unremarkable Neck veins difficult to evaluate Carotids unremarkable Chest decreased breath sounds, diffuse rhonchi, mild wheezing Heart irregular rhythm, no murmurs Extremities 2+ edema Current Medications: Current Medications Sig/Eve Start time Last Medication Dose Route Stop Time Status Admin Acetaminophen 500 MG Q6P PRN 06/24 1145 AC PO Acetaminophen 650 MG Q6-PRN PRN 06/17 1615 AC PO Albuterol Sulfate 3 ML EVERY 4 HRS/AWAKE 06/18 800 AC 06/25 INH 2009 Albuterol Sulfate 1 PUF Q4H PRN 06/17 1615 AC INH Albuterol Sulfate 3 ML Q6H PRN 06/17 1615 AC 06/22 INH 0046 Aspirin Buffered 81 MG DAILY 06/18 09 AC 06/26 PO 09 Atorvastatin Calcium 10 MG DAILY 06/18 09 AC 06/26 PO 09 Budesonide/ 2 PUF BID 06/17 2100 AC 06/26 Formoterol Fumarate INH 0913 Cephalexin 500 MG BID 06/20 2100 AC 06/26 PO 0912 Cyanocobalamin 1,000 MCG DAILY 06/18 09 AC 06/26 PO 0911 Diltiazem HCl 240 MG DAILY 06/18 09 AC 06/26 PO 0911 Ferrous Sulfate 325 MG TID 06/17 2100 AC 06/26 PO 0912 Furosemide 40 MG 7:30 AM, & 4:30 PM 06/26 0830 AC 06/26 IV 0913 Furosemide 40 MG ONCE ONE 06/25 1330 DC 06/25 IV 06/25 1331 1426 Furosemide 40 MG DAILY 06/23 1030 DC 06/25 PO 0832 Guaifenesin 10 ML Q4P PRN 06/17 1600 AC 06/23 PO 1654 Insulin Aspart 0 TIDAC 06/17 1700 AC 06/25 SC 1635 Insulin Detemir 10 UNITS 06/18 09 AC 06/26 SC 0912 Insulin Detemir 8 UNITS AT BEDTIME 06/17 2100 AC 06/25 SC 2002 Loperamide HCl 4 MG BID PRN 06/17 1615 PO Metoprolol Tartrate 25 MG BID 06/17 2100 AC 06/26 PO 0912 Omeprazole 40 MG 1/2H B/BREAKF/DINNER 06/17 1630 AC 06/26 PO 0505 Ondansetron HCl 4 MG ONCE PRN 06/22 0900 IV Patient Medication 1 ED ONE ONE 06/25 1215 DC 06/25 Teaching ED 06/25 1216 1311 Polyethylene Glycol 17 GM DAILY 06/26 921 PO Potassium Chloride 20 MEQ DAILY 06/18 09 AC 06/26 PO 0912 Prednisone 10 MG DAILY 06/22 09 AC 06/26 PO 06/27 0859 0911 Rivaroxaban 15 MG AT BEDTIME 06/17 2100 AC 06/25 PO 2004 Senna/Docusate Sodium 1 TAB BID 06/26 921 PO Sodium Chloride 2 SPRAY Q4P PRN 06/19 1215 AC 06/19 CESAR 1718 Tiotropium [place] 1 PUF DAILY 06/18 0900 AC 06/26 INH 0913 Results Last 48 Hrs of Labs/Mics: Laboratory Tests 06/26/18 0715: Anion Gap 6, Estimated GFR 40 L, BUN/Creatinine Ratio 33.5 H, CBC w Diff NO MAN DIFF REQ, RBC 2.59 L, MCV 89.6, MCH 29.2, MCHC 32.6 L, RDW 18.1 H, MPV 8.9, Gran % 89.6 H, Lymphocytes % 5.4 L, Monocytes % 4.7, Eosinophils % 0.2, Basophils % 0.1, Absolute Granulocytes 7.9 H, Absolute Lymphocytes 0.5 L, Absolute Monocytes 0.4, Absolute Eosinophils 0, Absolute Basophils 0 06/25/18 0625: Anion Gap 7, Estimated GFR 40 L, BUN/Creatinine Ratio 36.5 H, CBC w Diff NO MAN DIFF REQ, RBC 2.45 L, MCV 92.6, MCH 30.6, MCHC 33.0, RDW 17.5 H, MPV 8.8, Gran % 91.6 H, Lymphocytes % 4.2 L, Monocytes % 4.2, Eosinophils % 0, Basophils % 0, Absolute Granulocytes 4.4, Absolute Lymphocytes 0.2 L, Absolute Monocytes 0.2, Absolute Eosinophils 0, Absolute Basophils 0 06/24/18 2138: Troponin I 0.07 06/24/18 1655: Troponin I 0.07 06/24/18 1250: Bicarbonate Actual 32 H, Mixed VBG pH 7.27 L, Mixed VBG pCO2 71 H, Mixed VBG O2 Saturation 26 L, P-50 (Temp Corrected) N, Carboxyhemoglobin 3.2, O2 Concentration % 5L, Temperature 98.5, O2 Delivery Method N/C, Phlebotomy Draw Site RIGHT BRACHIAL Recent Imaging Studies: PATIENT: COURTNEY MURCIA PRESENT AGE: 68 PATIENT ACCOUNT NO: [id number] : 49 LOCATION: A ORDERING PHYSICIAN: Uzma Gordon MD SERVICE DATE: 06/25/18 EXAM TYPE: RAD - XRY-CHEST XRAY, TWO VIEWS EXAMINATION: XR CHEST CLINICAL INFORMATION: Desaturation. COMPARISON: CXR from 06/22/2018 and 06/24/2018 TECHNIQUE: 2 views of the chest were obtained. FINDINGS: Cardiomegaly with congested appearance of pulmonary vessels. Persistent diffuse interstitial opacity -- similar in appearance in the right lung and slightly worse in the left upper lobe compared to 06/24/2018 (but unchanged in the left upper lobe compared to 06/22/2018). The right lateral costophrenic sulcus is blunted from pleuroparenchymal scarring or trace pleural effusion, unchanged. Curvilinear opacity outlines a large bulla of the right lower lobe. Again noted is the large cardiac silhouette and prominent central pulmonary vessels. Bones appear diffusely osteopenic. IMPRESSION: Cardiomegaly and persistent diffuse interstitial opacity, suggestive of interstitial edema. Radiographically unable to exclude superimposed inflammatory thickening of airway mercado. Bronchitis would have to be excluded on the basis of clinical criteria. Overall, findings in the chest are similar to those observed on 06/22/2018 and 06/24/2018. DICTATED BY: Bala Chapman MD DATE/TIME DICTATED:06/25/181439 VECTOR CONTROL SPECIALIST:LINDY DATE/TIME TRANSCRIBED:06/25/181439 CONFIDENTIAL, DO NOT COPY WITHOUT APPROPRIATE AUTHORIZATION. <Electronically signed in Other Vendor System> SIGNED BY: Bala Chapman MD 06/25/18 7698 Assessment/Plan Assessment/Plan Patient appears slightly improved. However his chest x-ray still shows congestion. He is back on IV Lasix. His renal function is fortunately stable. H&H are currently stable. Echocardiogram and GI evaluation are pending. I recommend continuing the same treatment. I will comment on the echocardiogram when it is available. Continue telemetry? Not applicable
[2018-06-26 13:59] VITALS: BP 121/70
--- NOTE | 2018-06-26 16:47 | PN- Pulmonary ---
Subjective HPI/Critical Care Issues: pt seen and examined during the day uses prn bipap he wishes to bring his own from home so that he can use it on his own otherwise he feels better no n/v/d/c no segura, no cp dyspnea is stable Objective Current Medications: Current Medications Sig/Eve Start time Last Medication Dose Route Stop Time Status Admin Acetaminophen 500 MG Q6P PRN 06/24 1145 AC PO Acetaminophen 650 MG Q6-PRN PRN 06/17 1615 AC PO Albuterol Sulfate 3 ML EVERY 4 HRS/AWAKE 06/18 08 AC 06/26 INH 1615 Albuterol Sulfate 1 PUF Q4H PRN 06/17 1615 AC INH Albuterol Sulfate 3 ML Q6H PRN 06/17 1615 AC 06/22 INH 0046 Aspirin Buffered 81 MG DAILY 06/18 09 AC 06/26 PO 0912 Atorvastatin Calcium 10 MG DAILY 06/18 09 AC 06/26 PO 0911 Budesonide/ 2 PUF BID 06/17 2100 AC 06/26 Formoterol Fumarate INH 0913 Cephalexin 500 MG BID 06/20 2100 AC 06/26 PO 0912 Cyanocobalamin 1,000 MCG DAILY 06/18 0900 AC 06/26 PO 0911 Diltiazem HCl 240 MG DAILY 06/18 09 AC 06/26 PO 0911 Ferrous Sulfate 325 MG TID 06/17 2100 AC 06/26 PO 1302 Furosemide 40 MG 7:30 AM, & 4:30 PM 06/26 830 AC 06/26 IV 1636 Furosemide 40 MG DAILY 06/23 1030 DC 06/25 PO 0832 Guaifenesin 10 ML Q4P PRN 06/17 1600 AC 06/23 PO 1654 Insulin Aspart 0 TIDAC 06/17 1700 AC 06/26 SC 1301 Insulin Detemir 10 UNITS 06/18 0900 AC 06/26 SC 0912 Insulin Detemir 8 UNITS AT BEDTIME 06/17 2100 AC 06/25 SC 2002 Loperamide HCl 4 MG BID PRN 06/17 1615 AC PO Metoprolol Tartrate 25 MG BID 06/17 2100 AC 06/26 PO 0912 Omeprazole 40 MG 1/2H B/BREAKF/DINNER 06/17 1630 AC 06/26 PO 1636 Ondansetron HCl 4 MG ONCE PRN 06/22 09 AC IV Polyethylene Glycol 17 GM DAILY 06/26 921 AC 06/26 PO 1302 Potassium Chloride 20 MEQ DAILY 06/18 09 AC 06/26 PO 0912 Prednisone 10 MG DAILY 06/22 900 AC 06/26 PO 06/27 0859 0911 Rivaroxaban 15 MG AT BEDTIME 06/17 2100 AC 06/25 PO 2004 Senna/Docusate Sodium 1 TAB BID 06/26 921 AC 06/26 PO 1302 Sodium Chloride 2 SPRAY Q4P PRN 06/19 1215 AC 06/19 CESAR 1718 Tiotropium [place] 1 PUF DAILY 06/18 09 AC 06/26 INH 0913 Vital Signs & I&O Last 24 Hrs of Vitals and I&O: Vital Signs Date Time Temp Pulse Resp B/P B/P Pulse O2 O2 Flow FiO2 Mean Ox Delivery Rate 06/26 1615 101 95 06/26 1615 95 BIPAP 35% 06/26 1359 98.4 95 20 121/70 98 BIPAP 06/26 0912 90 124/70 06/26 0620 98.4 90 18 124/70 98 BIPAP 06/26 0019 84 98 06/26 0000 94 BIPAP 06/25 2215 93 98 06/25 2149 98.6 98 19 124/66 97 BIPAP 06/25 2017 95 BIPAP 35% 06/25 2011 81 95 06/25 2004 128/78 Intake & Output 06/26 1600 06/26 0806/26 0000 Intake Total 120 120 Output Total 650 350 Balance -530 -230 Intake, Oral 120 120 Number 1 Bowel Movements Output, Urine 650 350 Patient 165 lb Weight Weight Bed scale Measurement Method Exam Other Physical Findings: gen - awake and alert head/neck - o2 via nc cvs -s1, s2 lungs - b/l rare rhonchi abd - soft, bs+ ext - + edema Results Last 24 Hrs of Lab Results: Laboratory Tests 06/26/18 0715: Anion Gap 6, Estimated GFR 40 L, BUN/Creatinine Ratio 33.5 H, CBC w Diff NO MAN DIFF REQ, RBC 2.59 L, MCV 89.6, MCH 29.2, MCHC 32.6 L, RDW 18.1 H, MPV 8.9, Gran % 89.6 H, Lymphocytes % 5.4 L, Monocytes % 4.7, Eosinophils % 0.2, Basophils % 0.1, Absolute Granulocytes 7.9 H, Absolute Lymphocytes 0.5 L, Absolute Monocytes 0.4, Absolute Eosinophils 0, Absolute Basophils 0 Impression/Plan Impression/Plan Impression/Plan: Impression 68 year old man * acute exacerbation of COPD * CXR suggestive of congestion/edema and with worsened leg edema - concern for CHF exacerbation/volume overload * sputum with Klebsiella, Staph Aureus - atelectasis vs. pneumonia - * chronic hypoxemic respiratory failure * Hx of BHARATHI * stable anemia Plan -f/u cardiology input - consider diuresis given worsened edema -steroid taper as ordered - on po prednisone -trc/nebs, continue inhalers -Klebsiella/staph in sputum - cont abx -anemia per primary team -continue NIV BiPAP nocturnally and as needed -can bring his own bipap DVT prophylaxis at all times
[2018-06-26 22:20] VITALS: BP 106/64
[2018-06-27 06:20] VITALS: BP 118/66
--- NOTE | 2018-06-27 06:30 | PN- Housestaff ---
SamueljuliusDavid fontenot 06/27/18 0629: Subjective Follow-up For: Acute COPD exacerbation Pneumonia IDDM Acute on chronic renal failure Subjective: I visited Mr. Vieira this morning. He was alert and oriented 3, in no acute distress, with using his own BiPAP machine. He has gone for a walk on the floor yesterday. He states that he had some shortness of breath, but no chest pain. He had a bowel movement with dark stool, no fever, no chills, no lightheadedness , no dizziness. Review of Systems Constitutional: Reports: see HPI. Objective Last 24 Hrs of Vital Signs/I&O Vital Signs Date Time Temp Pulse Resp B/P B/P Pulse O2 O2 Flow FiO2 Mean Ox Delivery Rate 06/27 0813 87 118/66 06/27 0808 98 BIPAP 5.0L 06/27 0800 BIPAP 5.0L 06/27 0620 98.4 87 20 118/66 93 BIPAP 06/27 0000 BIPAP 5.0L 06/26 2220 98.7 95 20 106/64 92 BIPAP 06/26 2140 95 106/64 06/26 1712 100 97 06/26 1615 101 95 06/26 1615 95 BIPAP 35% 06/26 1359 98.4 95 20 121/70 98 BIPAP Intake & Output 06/27 1600 06/27 0800 06/27 0000 Intake Total 300 120 Output Total 450 500 900 Balance -450 -200 -780 Intake, Oral 300 120 Number 1 Bowel Movements Output, Urine 450 500 900 Patient 150 lb Weight Physical Exam General Appearance: Alert, Oriented X3, Cooperative, No Acute Distress, On his own BiPAP machine Skin: No Rashes Skin Temp/Moisture Exam: Warm/Dry Sepsis Skin Exam (color): Normal for Ethnicity HEENT: Atraumatic Cardiovascular: Regular Rate, Normal S1, Normal S2 Lungs: Clear to Auscultation, Improved breathing sounds comparing to yesterday Abdomen: Normal Bowel Sounds, Soft, No Tenderness Neurological: Normal Speech Extremities: No Clubbing, No Cyanosis, 2+ pitting edema up to ankles Assessment/Plan Assessment: Mr. Vieira is a 68-year-old male with past medical history of COPD, CHF, A. fib, diabetes mellitus, and other medical problems who has been admitted here with chief complaint of shortness of breath and exacerbation of COPD with positive cultures. He is currently fluid overloaded. His lung examination has improved comparing to yesterday. Acute COPD exacerbation: His lung examination has improved, and he is on his own BiPAP machine. Plan: Prednisone is being tapered per pulmonology consult, today 10 mg p.o. He is receiving acetylcysteine inhalant, RTC, he is on his own BiPAP machine per machine quilt stuffer. Congestive heart failure: He was diagnosed with congestive heart failure with ejection fraction of 30-35%. Passenger Locomotive Engineer followed up with the patient today. Plan: IV Lasix 40 mg twice daily, waiting for the results of echocardiogram. He had a total weight loss of 5 pounds since 5 days ago, and a fluid balance of - 1030. Pneumonia: Lower respiratory cultures were positive for Staph. areus (non-MRSA) and Klebsiella pneumonia. Plan: He received Keflex 500 p.o. which is discontinued today. Anemia: He had a total of 2 transfusions in his admission. His last Hb is 7.6. Plan: We will recheck and follow H&H closely. He is currently on Xarelto with guiac positive result. Passenger Locomotive Engineer consult was appreciated. DM: Blood sugar level has been controlled. He is not compliant with his diet. Plan: We will continue insulin and continue the hold of metformin due to decreased renal function. Acute on chronic renal failure (Stage 4): Creatinine is back to baseline 1.7-1.6 from 2.5 and has been stable for 2 days. Plan: We will avoid renal toxic medications (NSAIDS and metformin). Problem List: 1. COPD exacerbation 2. Pneumonia 3. MADISON (acute kidney injury) 4. Chronic renal failure 5. CHF (congestive heart failure) Pain Ratin Pain Location: NA Pain Goal: Remain pain free Pain Plan: NA Tomorrow's Labs & Rationales: NA Consulting Request: Consulting Specialty: Pulmonary Disease Consulting Physician: Mark So MD Reason for Consult: COPD exacerbation Akash CR,Anushka 06/27/18 0951: Attending MD Review Statement Attending Statement Attending MD Statement: examined this patient, discuss w/resident/PA/FISH ICER, agreed w/resident/PA/FISH ICER, reviewed EMR data (avail), discussed with nursing, discussed with case mgmt, reviewed images Attending Assessment/Plan: Overall patient is doing okay, he remains edematous and volume overloaded and we have him on Lasix 40 IV every 12 watching his renal function closely. I spoke to him at length and he is anemic on Xarelto. He had a recent GI evaluation that was negative. At this point he is not symptomatic and is on chronic iron therapy. We are not going to pursue a repeat GI evaluation and we are going to continue symptomatic treatment. He has 11 stairs at home that he has to clear and we are anticipating discharge likely on Monday.
--- NOTE | 2018-06-27 08:23 | PN- Student ---
Subjective Subjective: Pt was seen and examined this morning. He had no acute events overnight. He continues to have dyspnea on O2 via nasal cannula and uses his BIPAP throughout the day and at night. Pt also complains of continuing chest discomfort unchanged from yesterday. He denies chest pain, abdominal pain, difficulty voiding, urinary frequency. According to him, he ambulated with PT yesterday and felt that he became SOB quickly and fatigued easily. He worries he still cannot do stairs. Objective Objective: Vital Signs Date Time Temp Pulse Resp B/P B/P Pulse O2 O2 Flow FiO2 Mean Ox Delivery Rate 06/27 813 87 118/66 06/27 0808 98 BIPAP 5.0L 06/27 0620 98.4 87 20 118/66 93 BIPAP 06/27 0000 BIPAP 5.0L 06/26 2220 98.7 95 20 106/64 92 BIPAP 06/26 2140 95 106/64 06/26 1712 100 97 06/26 1615 101 95 06/26 1615 95 BIPAP 35% 06/26 1359 98.4 95 20 121/70 98 BIPAP 06/26 0912 90 124/70 Intake & Output 06/27 1600 06/27 0800 06/27 0000 Intake Total 300 120 Output Total 500 900 Balance -200 -780 Intake, Oral 300 120 Number 1 Bowel Movements Output, Urine 500 900 PE: Gen - NAD Psych - appropriate affect Neuro - AOx4 CV - S1 and S2, irregularly irregular Pulm - diminished breath sounds BL Abd - soft, nontender, nondistended Ext - 3+ pitting edema to the knees BL Sacrum - not examined at this time Results Results: Laboratory Tests 06/27/18 0630: Anion Gap 5, Estimated GFR 43 L, BUN/Creatinine Ratio 33.1 H 06/26/18 0715: Anion Gap 6, Estimated GFR 40 L, BUN/Creatinine Ratio 33.5 H, CBC w Diff NO MAN DIFF REQ, RBC 2.59 L, MCV 89.6, MCH 29.2, MCHC 32.6 L, RDW 18.1 H, MPV 8.9, Gran % 89.6 H, Lymphocytes % 5.4 L, Monocytes % 4.7, Eosinophils % 0.2, Basophils % 0.1, Absolute Granulocytes 7.9 H, Absolute Lymphocytes 0.5 L, Absolute Monocytes 0.4, Absolute Eosinophils 0, Absolute Basophils 0 06/25/18 0625: Anion Gap 7, Estimated GFR 40 L, BUN/Creatinine Ratio 36.5 H, CBC w Diff NO MAN DIFF REQ, RBC 2.45 L, MCV 92.6, MCH 30.6, MCHC 33.0, RDW 17.5 H, MPV 8.8, Gran % 91.6 H, Lymphocytes % 4.2 L, Monocytes % 4.2, Eosinophils % 0, Basophils % 0, Absolute Granulocytes 4.4, Absolute Lymphocytes 0.2 L, Absolute Monocytes 0.2, Absolute Eosinophils 0, Absolute Basophils 0 06/24/18 2138: Troponin I 0.07 06/24/18 1655: Troponin I 0.07 Assessment/Plan Assessment: Assessment: Pt is a 68YOM with PMH of CKD stage 4 GFR of 40, COPD on 4LO2 during the day and BIPAP at night, CHF with 30-35% EF as of February 2018, Afib on cardizem and metoprolol who presented to the ED 11 days ago with cough productive of sputum and dyspnea. He was found to have pneumonia and COPD exascerbation, MADISON with Cr at 2.5, guiac + stool, and sore on the L buttocks. Sputum cx + for klebsiella pneumo, yeast, and MSSA. Pt started on keflex. Pt found to have Hb of 6.7 and so was transfused x2 units PRBCs with current Hb in 7s x4 days. CXR 06/24/18 shows improvement in opacity in [place] and worsened opacification of R lung along with cardiomegaly and pulmonary artery congestion c/w PA HTN and pulmonary edema. Lumbar Xray d/t sacrococcygeal pain showed no fractures. No change in CXR performed on 06/25/18. 3 days ago, pt experienced CO2 retention desatting to 80s on 5LNC and so was placed on BIPAP and recovered well, now satting in 90s. Troponins drawn d/t chest discomfort at that time are 0.07 x2. Problem List/Plan 1. Pneumonia Pt has long hx of COPD and so is susceptible to respiratory infection. - Pt completed 7 days of keflex and we will d/c today. - Pt is on prednisone taper 10mg after IV solumedrol 3 days ago, continue, finish taper today - Pt is on BIPAP, using his own from home, and can come on/off on his own as per Dr. So 2. COPD Exascerbation Pt has longstanding COPD and his respiratory status has been decompensated d/t this episode of pneumonia. - Continue prednisone taper, complete today - Continue albuterol, symbicort, and spiriva - F/u pulmonology recs 3. Pulmonary edema and PA HTN Pt has CHF with EF of 30-35% which has been worsened by fluids and albumin pt received in light of current MADISON. - I/O strict, pt diuresed -1030 yesterday - weight decreased by 1lb from 06/24/18 - Continue IV lasix BID - Continue cardizem and metoprolol 4. Anemia Pt was anemic w/ Hb of 6.7 on admission and has been transfused w/ 2 units pRBCs. This is likely GI loss which was worked up in April 2018 with EGD and colonoscopy. Pt was recommended to f/u outpatient and he has not done so. GI consult will not be pursued as patient was recently scoped and no source of the bleeding was found from above or below. - Hb stable for now at 7.6 yesterday. We will not repeat unless pt becomes symptomatic again. We have discussed symptoms concerning for anemia with the patient. He understands he should notify us if he experiences any of them. - Cardiology does not recommend d/c xarelto d/t hx of afib 5. Acute on chronic kidney injury Pt likely experiencing kidney injury d/t acute infection in the setting of CKD Stage 4. - Continue monitoring BUN/Cr and GFR - Nephro signed off on 06/22/18 6. DM Pt has hx of diabetes for which he takes metformin. He is not compliant with his diet and is currently experiencing hyperglycemia in setting of prednisone taper. - Continue holding metformin as pt is at increased risk of lactic acidosis d/t recent MADISON - Continue tx with sliding scale 7. Sacrococcygeal ulcer Pt has sacrococcygeal ulcer(s) since before admission which are not worsening but which cause the patient pain. They are likely d/t his sedentary lifestyle. - Dr. Miles consulted for wound care. - continue offloading area - Apply barrier cream or duoderm to prevent skin breakdown - Goal is remaining pain free Diet: regular DVT: xarelto Code: full
--- NOTE | 2018-06-27 10:53 | PN- Pulmonary ---
Subjective HPI/Critical Care Issues: The patient was seen and examined. He feels better overall. He was able to ambulate. He does not feel that he has returned to his baseline, but improving. He wishes to use BiPAP on his own during the day in addition to night time. No n/v/d/c. No segura, no cp. No fevers, no chills. Objective Current Medications: Current Medications Sig/Eve Start time Last Medication Dose Route Stop Time Status Admin Acetaminophen 500 MG Q6P PRN 06/24 1145 AC PO Acetaminophen 650 MG Q6-PRN PRN 06/17 1615 AC PO Albuterol Sulfate 3 ML EVERY 4 HRS/AWAKE 06/18 08 AC 06/27 INH 0807 Albuterol Sulfate 1 PUF Q4H PRN 06/17 1615 AC INH Albuterol Sulfate 3 ML Q6H PRN 06/17 1615 AC 06/22 INH 0046 Aspirin Buffered 81 MG DAILY 06/18 09 AC 06/27 PO 0813 Atorvastatin Calcium 10 MG DAILY 06/18 09 AC 06/27 PO 0813 Budesonide/ 2 PUF BID 06/17 2100 AC 06/27 Formoterol Fumarate INH 0814 Cephalexin 500 MG BID 06/20 2100 DC 06/27 PO 0813 Cyanocobalamin 1,000 MCG DAILY 06/18 09 AC 06/27 PO 0813 Diltiazem HCl 240 MG DAILY 06/18 0900 AC 06/27 PO 0813 Ferrous Sulfate 325 MG TID 06/17 2100 AC 06/27 PO 0813 Furosemide 40 MG 7:30 AM, & 4:30 PM 06/26 0830 AC 06/27 IV 0813 Guaifenesin 10 ML Q4P PRN 06/17 1600 AC 06/23 PO 1654 Insulin Aspart 0 TIDAC 06/17 1700 AC 06/26 SC 1301 Insulin Detemir 10 UNITS 06/18 0900 AC 06/27 SC 0813 Insulin Detemir 8 UNITS AT BEDTIME 06/17 2100 AC 06/26 SC 2139 Loperamide HCl 4 MG BID PRN 06/17 1615 AC PO Metoprolol Tartrate 25 MG BID 06/17 2100 AC 06/27 PO 0813 Omeprazole 40 MG 1/2H B/BREAKF/DINNER 06/17 1630 AC 06/27 PO 0554 Ondansetron HCl 4 MG ONCE PRN 06/22 900 AC IV Polyethylene Glycol 17 GM DAILY 06/26 921 AC 06/27 PO 0814 Potassium Chloride 20 MEQ DAILY 06/18 09 AC 06/27 PO 0813 Prednisone 10 MG DAILY 06/22 09 DC 06/26 PO 06/27 0859 0911 Rivaroxaban 15 MG AT BEDTIME 06/17 2100 AC 06/26 PO 2139 Senna/Docusate Sodium 1 TAB BID 06/26 921 AC 06/27 PO 0813 Sodium Chloride 2 SPRAY Q4P PRN 06/19 1215 AC 06/19 CESAR 1718 Tiotropium [place] 1 PUF DAILY 06/18 09 AC 06/27 INH 0813 Vital Signs & I&O Last 24 Hrs of Vitals and I&O: Vital Signs Date Time Temp Pulse Resp B/P B/P Pulse O2 O2 Flow FiO2 Mean Ox Delivery Rate 06/27 813 87 118/66 06/27 0808 98 BIPAP 5.0L 06/27 0800 BIPAP 5.0L 06/27 0620 98.4 87 20 118/66 93 BIPAP 06/27 0000 BIPAP 5.0L 06/26 2220 98.7 95 20 106/64 92 BIPAP 06/26 2140 95 106/64 06/26 1712 100 97 06/26 1615 101 95 06/26 1615 95 BIPAP 35% 06/26 1359 98.4 95 20 121/70 98 BIPAP Intake & Output 06/27 1600 06/27 0800 06/27 0000 Intake Total 300 120 Output Total 500 900 Balance -200 -780 Intake, Oral 300 120 Number 1 Bowel Movements Output, Urine 500 900 Patient 150 lb Weight Exam Other Physical Findings: gen - awake and alert head/neck - o2 via nc cvs -s1, s2 lungs - b/l rare rhonchi abd - soft, bs+ ext - + edema Results Last 24 Hrs of Lab Results: Laboratory Tests 06/27/18 0630: Anion Gap 5, Estimated GFR 43 L, BUN/Creatinine Ratio 33.1 H Impression/Plan Impression/Plan Impression/Plan: Impression 68 year old man * acute exacerbation of COPD * CXR suggestive of congestion/edema and with worsened leg edema - concern for CHF exacerbation/volume overload * sputum with Klebsiella, Staph Aureus - atelectasis vs. pneumonia - * chronic hypoxemic respiratory failure * Hx of BHARATHI * stable anemia Plan -advised the patient not to eat while actively using BiPAP -f/u cardiology input - consider diuresis given worsened edema -steroid taper as ordered - on po prednisone -trc/nebs, continue inhalers -Klebsiella/staph in sputum - cont abx -anemia per primary team -continue NIV BiPAP nocturnally and as needed -can bring his own bipap DVT prophylaxis at all times
--- NOTE | 2018-06-27 11:17 | ECHOCARDIOGRAM REPORT ---
COURTNEY MURCIA Age: 68 : 1950 Gender: M Exam Date: 06/26/2018 19:48 Exam Location: [address] [place] [address] A Ht (in): 71 Wt (lb): 166 BSA: 1.94 BP: 138 / 77 Ordering Physician: Landry Walton MD Referring Physician: Landry Walton MD Technologist: Soni Schwartz ALON Room Number: 227 Indications: Heart failure Rhythm: Atrial fibrillation Technical Quality: Fair FINDINGS Left Ventricle Mild left ventricular dilatation. Moderate concentric left ventricular hypertrophy. Mild to moderately abnormal left ventricular ejection fraction estimated at 35-40%. Right Ventricle The right ventricle is normal in size and function. Right Atrium The right atrium is normal in size. Left Atrium Moderate left atrial dilatation. Mitral Valve Mild thickening/calcification of the mitral valve leaflets. Mild-to- moderate mitral regurgitation. Aortic Valve Focal thickening of the aortic valve cusps. Mild aortic stenosis. No aortic regurgitation. Tricuspid Valve Structurally normal tricuspid valve. Sefc-fm-[id number] tricuspid regurgitation. Right ventricular systolic pressure estimated to be elevated at 55-60 mmHg. Moderate to severe pulmonary hypertension. Pulmonic Valve Structurally normal pulmonic valve. There is mild pulmonic regurgitation. Pericardium Normal pericardium without effusion. No pleural effusion. Great Vessels Normal aortic root dimension. The aortic arch and great vessels are not well seen. Dilated IVC. CONCLUSIONS Mild left ventricular dilatation. Moderate concentric left ventricular hypertrophy. Mild to moderately abnormal left ventricular ejection fraction estimated at 35-40%. Moderate left atrial dilatation. Mild thickening/calcification of the mitral valve leaflets. Gcwc-ep-zuxcvsnv mitral regurgitation. Focal thickening of the aortic valve cusps. Mild aortic stenosis. Wckp-il-rrboqdma tricuspid regurgitation. Right ventricular systolic pressure estimated to be elevated at 55- 60 mmHg. Moderate to severe pulmonary hypertension. The aortic arch and great vessels are not well seen. Dilated IVC. Landry Walton M.D. (Electronically Signed) Final Date: 27 June 2018 11:16 MEASUREMENTS (Male / Female) Normal Values 2D ECHO LV Diastolic Diameter PLAX 6.2 cm 4.2 - 5.9 / 3.9 - 5.3 cm LV Systolic Diameter PLAX 4.8 cm 2.1 - 4.0 cm LV Fractional Shortening PLAX 22.6 % 25 - 46 % LV Ejection Fraction 2D Teich 44.6 % IVS Diastolic Thickness 1.6 cm LVPW Diastolic Thickness 1.6 cm LV Relative Wall Thickness 0.5 RV Internal Dim ED PLAX 2.8 cm 1.9 - 3.8 cm LVOT Diameter 2.3 cm Aortic Root Diameter 3.4 cm LA Systolic Diameter LX 5.3 cm 3.0 - 4.0 / 2.7 - 3.8 cm LA Volume 91.0 cm 18 - 58 / 22 - 52 cm Ascending Aorta Diameter 3.1 cm DOPPLER AV Peak Velocity 233.0 cm/s AV Peak Gradient 21.7 mmHg AV Mean Velocity 151.0 cm/s AV Mean Gradient 11.0 mmHg AV Velocity Time Integral 37.1 cm LVOT Peak Velocity 156.0 cm/s LVOT Peak Gradient 9.7 mmHg LVOT Mean Velocity 103.0 cm/s LVOT Mean Gradient 5.0 mmHg LVOT Velocity Time Integral 24.3 cm LVOT Stroke Volume 101.0 cm AV Area Cont Eq vti 2.7 cm AV Area Cont Eq pk 2.8 cm MV Peak Velocity 160.0 cm/s MV Peak Gradient 10.2 mmHg MV Mean Velocity 71.7 cm/s MV Mean Gradient 3.0 mmHg Mitral E Point Velocity 95.8 cm/s MV PHT Velocity 160.0 cm/s MV Deceleration [place] 853.0 cm/s MV Pressure Half Time 56.3 ms MV Area PHT 3.9 cm MV Deceleration Time 211.0 ms TR Peak Velocity 337.0 cm/s TR Peak Gradient 45.4 mmHg Right Atrial Pressure 10.0 mmHg Pulmonary Artery Systolic Pressure 55.4 mmHg Right Ventricular Systolic Pressure 55.4 mmHg PV Peak Velocity 155.0 cm/s PV Peak Gradient 9.6 mmHg PV Mean Velocity 99.2 cm/s PV Mean Gradient 5.0 mmHg PV Velocity Time Integral 25.2 cm LV E' Lateral Velocity 12.7 cm/s Mitral E to LV E' Lateral Ratio 7.5 LV E' Septal Velocity 6.9 cm/s Mitral E to LV E' Septal Ratio 13.8
[2018-06-27 15:03] VITALS: BP 100/66
[2018-06-27 20:40] VITALS: BP 110/56
[2018-06-28 06:19] VITALS: BP 116/68
--- NOTE | 2018-06-28 06:29 | PN- Housestaff ---
David Gil 06/28/18 0628: Subjective Follow-up For: Acute COPD exacerbation Pneumonia Fluid overload IDDM Acute on chronic renal failure Subjective: I visited the patient this morning. He was getting out of the bathroom to his bed. He was alert and oriented x 3, in no acute stress. He reports his breathing is the same as yesterday and that he feels stronger than yesterday. He walked the stairs with PT yesterday. Based on nurse report he has two skin tears one from tape on his right arm and the other one from IV on his left arm (no active bleeding). Review of Systems Constitutional: Reports: see HPI. Objective Last 24 Hrs of Vital Signs/I&O Vital Signs Date Time Temp Pulse Resp B/P B/P Pulse O2 O2 Flow FiO2 Mean Ox Delivery Rate 06/28 1610 93 BIPAP 5.0L 06/28 1444 98.9 79 18 112/90 94 Nasal 4.0L Cannula 06/28 0905 60 116/68 06/28 0831 95 Nasal 4.0L Cannula 06/28 0800 Nasal 4.0L Cannula 06/28 0619 97.7 60 22 116/68 94 CPAP 06/28 0000 92 BIPAP 06/27 2135 73 110/56 06/27 2100 73 06/27 2040 98.7 54 24 110/56 92 06/27 2010 95 Intake & Output 06/28 1600 06/28 0800 06/28 0000 Intake Total 480 300 Output Total 350 800 750 Balance 130 -800 -450 Intake, Oral 480 300 Number 1 Bowel Movements Output, Urine 350 800 750 Patient 162 lb Weight Physical Exam General Appearance: Alert, Oriented X3, Cooperative, No Acute Distress Skin: No Rashes Skin Temp/Moisture Exam: Warm/Dry Sepsis Skin Exam (color): Normal for Ethnicity HEENT: Atraumatic Neck: Supple Cardiovascular: Regular Rate, Normal S1, Normal S2 Lungs: Normal Air Movement, Minimal bilateral crackles Abdomen: Normal Bowel Sounds, Soft, No Tenderness Neurological: Normal Speech Extremities: No Clubbing, No Cyanosis, Normal Pulses Vascular: Normal Pulses, Pulses Symmetrical Assessment/Plan Assessment: Mr. Vieira is a 68-year-old male with past medical history of COPD, CHF, A. fib, diabetes mellitus, and other medical problems who has been admitted here with chief complaint of shortness of breath and exacerbation of COPD with positive cultures. Acute COPD exacerbation: His lung examination has improved, and he is on his own BiPAP machine. Plan: Prednisone is being tapered per pulmonology consult. He is receiving acetylcysteine inhalant, he is on his own BiPAP machine per soa integration developer. Congestive heart failure: He was diagnosed with congestive heart failure with ejection fraction of 35-40%. Guest Service Host followed up with the patient today. Plan: IV Lasix 40 mg twice daily. Will be discharged on PO Lasix 40mg BID. Pneumonia: Lower respiratory cultures were positive for Staph. areus (non-MRSA) and Klebsiella pneumonia. Plan: He received Keflex 500 p.o. which is discontinued. Anemia: He had a total of 2 transfusions in his admission. His last Hb is 7.6. Plan: We will recheck and follow H&H closely. He is currently on Xarelto with guiac positive result. Guest Service Host consult was appreciated. DM: Blood sugar level has been controlled. He is not compliant with his diet. Plan: We will continue insulin and continue the hold of metformin due to decreased renal function. Acute on chronic renal failure (Stage 4): Creatinine is back to baseline 1.7-1.6 from 2.5 and has been stable for 2 days. Plan: We will avoid renal toxic medications (NSAIDS and metformin). Problem List: 1. COPD exacerbation 2. CHF (congestive heart failure) 3. Diabetes mellitus 4. Pneumonia 5. Skin tear of elbow without complication 6. MADISON (acute kidney injury) 7. Chronic renal failure 8. Anemia 9. GI bleed Pain Ratin Pain Location: NA Pain Goal: Remain pain free Pain Plan: NA Tomorrow's Labs & Rationales: NA Consulting Request: Consulting Specialty: Pulmonary Disease Consulting Physician: Mark So MD Reason for Consult: COPD exacerbation Akash CR,Anushka 06/28/18 1032: Attending MD Review Statement Attending Statement Attending MD Statement: examined this patient, discuss w/resident/PA/TITLE INVESTIGATOR, agreed w/resident/PA/TITLE INVESTIGATOR, reviewed EMR data (avail), discussed with nursing, discussed with case mgmt, reviewed images Attending Assessment/Plan: Pt is drinking 3-4 cans of Coke. And puts a lot of added sugar. He is very upset with me when I explained to him that he has to limit his fluid intake especially since we are giving him IV Lasix for acute volume overload. He remains very edematous. We are titrating the oxygen, treating him with IV Lasix and tapering the prednisone with the hope of getting him home on Monday. I do worry about recurrent admissions given his obvious noncompliance with his diet.
--- NOTE | 2018-06-28 08:47 | PN- Pulmonary ---
Subjective HPI/Critical Care Issues: pt seen and examined afebrile 97.7 95% 4LNC bipap overnight dyspnea continues to be primarily exertional improved secretions no segura, no cp, no n/v/d/c Objective Current Medications: Current Medications Sig/Eve Start time Last Medication Dose Route Stop Time Status Admin Acetaminophen 500 MG Q6P PRN 06/24 1145 AC PO Acetaminophen 650 MG Q6-PRN PRN 06/17 1615 AC PO Albuterol Sulfate 3 ML EVERY 4 HRS/AWAKE 06/18 800 AC 06/28 INH 0832 Albuterol Sulfate 1 PUF Q4H PRN 06/17 1615 AC INH Albuterol Sulfate 3 ML Q6H PRN 06/17 1615 AC 06/22 INH 0046 Aspirin Buffered 81 MG DAILY 06/18 900 AC 06/27 PO 0813 Atorvastatin Calcium 10 MG DAILY 06/18 09 AC 06/27 PO 0813 Budesonide/ 2 PUF BID 06/17 2100 AC 06/27 Formoterol Fumarate INH 2133 Cyanocobalamin 1,000 MCG DAILY 06/18 900 AC 06/27 PO 0813 Diltiazem HCl 240 MG DAILY 06/18 09 AC 06/27 PO 0813 Ferrous Sulfate 325 MG TID 06/17 2100 AC 06/27 PO 2133 Furosemide 40 MG 7:30 AM, & 4:30 PM 06/26 830 AC 06/28 IV 0630 Guaifenesin 10 ML Q4P PRN 06/17 1600 AC 06/23 PO 1654 Insulin Aspart 0 TIDAC 06/17 1700 AC 06/27 SC 1212 Insulin Detemir 10 UNITS 06/18 09 AC 06/27 SC 08 Insulin Detemir 8 UNITS AT BEDTIME 06/17 2100 AC 06/27 SC 2133 Loperamide HCl 4 MG BID PRN 06/17 1615 AC PO Metoprolol Tartrate 25 MG BID 06/17 2100 AC 06/27 PO 2135 Omeprazole 40 MG 1/2H B/BREAKF/DINNER 06/17 1630 AC 06/28 PO 0630 Ondansetron HCl 4 MG ONCE PRN 06/22 09 AC IV Polyethylene Glycol 17 GM DAILY 06/26 0921 AC 06/27 PO 0814 Potassium Chloride 20 MEQ DAILY 06/18 900 AC 06/27 PO 0813 Prednisone 10 MG DAILY 06/22 0900 DC 06/26 PO 06/27 0859 0911 Rivaroxaban 15 MG AT BEDTIME 06/17 2100 AC 06/27 PO 2133 Senna/Docusate Sodium 1 TAB BID 06/26 0921 AC 06/27 PO 2133 Sodium Chloride 2 SPRAY Q4P PRN 06/19 1215 AC 06/19 CESAR 1718 Tiotropium [place] 1 PUF DAILY 06/18 09 AC 06/27 INH 0813 Vital Signs & I&O Last 24 Hrs of Vitals and I&O: Vital Signs Date Time Temp Pulse Resp B/P B/P Pulse O2 O2 Flow FiO2 Mean Ox Delivery Rate 06/28 831 95 Nasal 4.0L Cannula 06/28 06 97.7 60 22 116/68 94 CPAP 06/28 0000 92 BIPAP 06/27 2135 73 110/56 06/27 2100 73 06/27 2040 98.7 54 24 110/56 92 06/27 2010 95 06/27 1600 Nasal 5.0L Cannula 06/27 1556 92 Nasal 5.0L Cannula 06/27 1503 98.4 97 22 100/66 92 Nasal 5.0L Cannula Intake & Output 06/28 1600 06/28 0800 06/28 0000 Intake Total 300 Output Total 800 750 Balance -800 -450 Intake, Oral 300 Number 1 Bowel Movements Output, Urine 800 750 Patient 162 lb Weight Exam Other Physical Findings: gen - awake and alert head/neck - o2 via nc cvs -s1, s2 lungs - b/l rare rhonchi abd - soft, bs+ ext - + edema Results Last 24 Hrs of Lab Results: na Impression/Plan Impression/Plan Impression/Plan: Impression 68 year old man * improving acute exacerbation of COPD * CHF exacerbation/volume overload * sputum with Klebsiella, Staph Aureus * chronic hypoxemic respiratory failure * Hx of BHARATHI * stable anemia Plan -advised the patient not to eat while actively using BiPAP -f/u cardiology input - consider diuresis given worsened edema -steroid taper as ordered - on po prednisone -trc/nebs, continue inhalers -Klebsiella/staph in sputum - cont abx -anemia per primary team -continue NIV BiPAP nocturnally and as needed -dc planning DVT prophylaxis at all times
--- NOTE | 2018-06-28 11:30 | PN- Student ---
Subjective Subjective: Pt seen and examined this morning. He had no acute overnight events. He denied headache, chest pain, abdominal pain, dysuria, and leg pain. He reports his breathing is the same as yesterday and that he feels stronger than yesterday. He walked the stairs with PT yesterday. Objective Objective: Vital Signs Date Time Temp Pulse Resp B/P B/P Pulse O2 O2 Flow FiO2 Mean Ox Delivery Rate 06/28 0905 60 116/68 06/28 0831 95 Nasal 4.0L Cannula 06/28 0800 Nasal 4.0L Cannula 06/28 0619 97.7 60 22 116/68 94 CPAP 06/28 0000 92 BIPAP 06/27 2135 73 110/56 06/27 2100 73 06/27 2040 98.7 54 24 110/56 92 06/27 2010 95 06/27 1600 Nasal 5.0L Cannula 06/27 1556 92 Nasal 5.0L Cannula 06/27 1503 98.4 97 22 100/66 92 Nasal 5.0L Cannula Intake & Output 06/28 1600 06/28 0806/28 0000 Intake Total 300 Output Total 800 750 Balance -800 -450 Intake, Oral 300 Number 1 Bowel Movements Output, Urine 800 750 Patient 162 lb Weight PE Gen - NAD, on 4L O2 via nasal cannula Psych - appropriate affect Neuro - AOx4 CV - RRR normal S1 and S2 Pulm - diminished breath sounds BL, no wheezing, rales or rhonchi Abd - soft, nontender, nondistended Ext - legs have 3+ pitting edema to the knees, 1cm skin tear on R forearm with no erythema or exudate, 1cm skin tear on L antecub with no erythema or exudate Results Results: Laboratory Tests - None today Assessment/Plan Assessment: Assessment: Pt is a 68YOM with PMH of CKD stage 4 GFR of 40, COPD on 4LO2 during the day and BIPAP at night, CHF with 30-35% EF as of February 2018, Afib on cardizem and metoprolol who presented to the ED 12 days ago with cough productive of sputum and dyspnea. He was found to have pneumonia and COPD exascerbation, MADISON with Cr at 2.5, guiac + stool, and sore on the L buttocks. Sputum cx + for klebsiella pneumo, yeast, and MSSA. Pt started on keflex. Pt found to have Hb of 6.7 and so was transfused x2 units PRBCs with current Hb in 7s x4 days. CXR 06/24/18 shows improvement in opacity in [place] and worsened opacification of R lung along with cardiomegaly and pulmonary artery congestion c/w PA HTN and pulmonary edema. Lumbar Xray d/t sacrococcygeal pain showed no fractures. No change in CXR performed on 06/25/18. 3 days ago, pt experienced CO2 retention desatting to 80s on 5LNC and so was placed on BIPAP and recovered well, now satting in 90s. Troponins drawn d/t chest discomfort at that time are 0.07 x2. Problem List/Plan 1. Pneumonia Pt has long hx of COPD and so is susceptible to respiratory infection. - Pt completed course of antibiotics. - Pt completed course of prednisone. - Pt is on BIPAP, using his own from home, and can come on/off on his own as per Dr. So. 2. COPD Exascerbation Pt has longstanding COPD and his respiratory status has been decompensated d/t this episode of pneumonia. - Pt completed course of prednisone. - Continue albuterol, symbicort, and spiriva - F/u outpatient COPD clinic 3. Pulmonary edema and PA HTN Pt has CHF with EF of 35-40% confirmed by ECHO on 06/25/18. - I/O strict and daily weights. - Continue IV lasix BID - Can d/c on PO lasix 40mg BID as per cardiology and f/u with Dr. Walton outpatient - Continue cardizem and metoprolol 4. Anemia Pt was anemic w/ Hb of 6.7 on admission and has been transfused w/ 2 units pRBCs. This is likely GI loss which was worked up in April 2018 with EGD and colonoscopy. Pt was recommended to f/u outpatient and he has not done so. GI consult will not be pursued as patient was recently scoped and no source of the bleeding was found from above or below. - Hb stable for now at 7.6 yesterday. We will not repeat unless pt becomes symptomatic again. We have discussed symptoms concerning for anemia with the patient. He understands he should notify us if he experiences any of them. - Cardiology does not recommend d/c xarelto d/t hx of afib 5. Acute on chronic kidney injury Resolved 6. DM Pt has hx of diabetes for which he takes metformin. He is not compliant with his diet. - Continue holding metformin as pt is at increased risk of lactic acidosis d/t recent MADISON - Continue tx with sliding scale 7. Sacrococcygeal ulcer, Skin tears Pt has sacrococcygeal ulcer since before admission which are not worsening but which cause the patient pain. They are likely d/t his sedentary lifestyle. Pt also has 2 new skin tears. - Dr. Miles consulted for sacrococcygeal wound. - continue offloading area - Apply barrier cream or duoderm to prevent skin breakdown - Goal is remaining pain free - will apply cream and bandage to skin tears as well Diet: regular DVT: xarelto Code: full
--- NOTE | 2018-06-28 13:07 | PN- Cardiology ---
Subjective Subjective: The patient states his breathing is better. He is using BiPAP appropriately. He has no chest pains. His edema seems to be decreasing. His remains on IV Lasix twice daily. The echo showed ejection fraction 35-40%, which is if anything a little improved over previous. He has moderate to severe pulmonary hypertension, which is not new. Objective Vital Signs and I&Os Vital Signs Date Time Temp Pulse Resp B/P B/P Pulse O2 O2 Flow FiO2 Mean Ox Delivery Rate 06/28 905 60 116/68 06/28 0831 95 Nasal 4.0L Cannula 06/28 08 Nasal 4.0L Cannula 06/28 0619 97.7 60 22 116/68 94 CPAP 06/28 0000 92 BIPAP 06/27 2135 73 110/56 06/27 2100 73 06/27 2040 98.7 54 24 110/56 92 06/27 2010 95 06/27 1600 Nasal 5.0L Cannula 06/27 1556 92 Nasal 5.0L Cannula 06/27 1503 98.4 97 22 100/66 92 Nasal 5.0L Cannula Intake & Output 06/28 1600 06/28 0800 06/28 0000 06/27 1600 06/27 0800 06/27 0000 Intake Total 300 600 300 120 Output Total 343 038 7046 500 900 Balance -800 -450 -850 -200 -780 Intake, Oral 300 600 300 120 Number 1 0 1 Bowel Movements Output, Urine 770 452 2755 500 900 Patient 162 lb 150 lb Weight Physical Exam: Chronically ill in no acute distress Chest decreased breath sounds, no rales, rhonchi or wheezing Heart irregular rhythm, no murmurs Extremities 1-2+ edema of the feet and ankles only Current Medications: Current Medications Sig/Eve Start time Last Medication Dose Route Stop Time Status Admin Acetaminophen 500 MG Q6P PRN 06/24 1145 AC PO Acetaminophen 650 MG Q6-PRN PRN 06/17 1615 AC PO Albuterol Sulfate 3 ML EVERY 4 HRS/AWAKE 06/18 800 AC 06/28 INH 1146 Albuterol Sulfate 1 PUF Q4H PRN 06/17 1615 AC INH Albuterol Sulfate 3 ML Q6H PRN 06/17 1615 AC 06/22 INH 0046 Aspirin Buffered 81 MG DAILY 06/18 900 AC 06/28 PO 903 Atorvastatin Calcium 10 MG DAILY 06/18 900 AC 06/28 PO 0904 Budesonide/ 2 PUF BID 06/17 2100 AC 06/28 Formoterol Fumarate INH 0906 Cyanocobalamin 1,000 MCG DAILY 06/18 09 AC 06/28 PO 0905 Diltiazem HCl 240 MG DAILY 06/18 0900 AC 06/28 PO 0904 Ferrous Sulfate 325 MG TID 06/17 2100 AC 06/28 PO 0904 Furosemide 40 MG 7:30 AM, & 4:30 PM 06/26 830 AC 06/28 IV 0630 Guaifenesin 10 ML Q4P PRN 06/17 1600 AC 06/23 PO 1654 Insulin Aspart 0 TIDAC 06/17 1700 AC 06/28 SC 1153 Insulin Detemir 10 UNITS 06/18 09 AC 06/28 SC 0910 Insulin Detemir 8 UNITS AT BEDTIME 06/17 2100 AC 06/27 SC 2133 Loperamide HCl 4 MG BID PRN 06/17 1615 AC PO Metoprolol Tartrate 25 MG BID 06/17 2100 AC 06/28 PO 0905 Omeprazole 40 MG 1/2H B/BREAKF/DINNER 06/17 1630 AC 06/28 PO 0630 Ondansetron HCl 4 MG ONCE PRN 06/22 0900 AC IV Polyethylene Glycol 17 GM DAILY 06/26 09 AC 06/27 PO 0814 Potassium Chloride 20 MEQ DAILY 06/18 09 AC 06/28 PO 0904 Rivaroxaban 15 MG AT BEDTIME 06/17 2100 AC 06/27 PO 2133 Senna/Docusate Sodium 1 TAB BID 06/26 0921 AC 06/28 PO 0904 Sodium Chloride 2 SPRAY Q4P PRN 06/19 1215 AC 06/19 CESAR 1718 Tiotropium [place] 1 PUF DAILY 06/18 09 AC 06/28 INH 0903 Results Last 48 Hrs of Labs/Mics: Laboratory Tests 06/27/18 0630: Anion Gap 5, Estimated GFR 43 L, BUN/Creatinine Ratio 33.1 H Recent Imaging Studies: CONCLUSIONS Mild left ventricular dilatation. Moderate concentric left ventricular hypertrophy. Mild to moderately abnormal left ventricular ejection fraction estimated at 35-40%. Moderate left atrial dilatation. Mild thickening/calcification of the mitral valve leaflets. [id number] mitral regurgitation. Focal thickening of the aortic valve cusps. Mild aortic stenosis. [id number]-[id number] tricuspid regurgitation. Right ventricular systolic pressure estimated to be elevated at 55- 60 mmHg. Moderate to severe pulmonary hypertension. The aortic arch and great vessels are not well seen. Dilated IVC. Landry Walton M.D. (Electronically Signed) Final Date: 27 June 2018 11:16 Assessment/Plan Assessment/Plan Mr. Vieira is approaching baseline. He states he will be going home in 2 days and not to rehab. I would send him out on Lasix 40 mg p.o. twice daily. I will follow him up in the office. Continue telemetry? Not applicable
[2018-06-28 14:44] VITALS: BP 112/90
[2018-06-28 22:19] VITALS: BP 118/86
[2018-06-29 06:13] VITALS: BP 116/68
--- NOTE | 2018-06-29 06:36 | PN- Housestaff ---
David Gil 06/29/18 0635: Subjective Follow-up For: Acute COPD exacerbation Pneumonia Fluid overload IDDM Acute on chronic renal failure Subjective: I visited Mr. Vieira this morning. He was denying any with his own BiPAP machine on, he was alert and oriented x3, in no acute distress. He had no complaints overnight. He could get some sleep overnight, he had no shortness of breath, chest pain, lightheadedness, dizziness, abdominal pain, nausea, vomiting , dysuria, frequency, pain in extremities, or pain at the site of sacral bedsores. I talked to him that he should cut down on his sugar intake, but as usual he did not agree to it. Physical therapy has mentioned that his tolerance to functional mobility is improving. They have also mentioned that he would benefit from skilled physical therapy in future. Review of Systems Constitutional: Reports: see HPI. Objective Last 24 Hrs of Vital Signs/I&O Vital Signs Date Time Temp Pulse Resp B/P B/P Pulse O2 O2 Flow FiO2 Mean Ox Delivery Rate 06/29 0613 98.1 61 22 / 97 Room Air 06/29 0000 BIPAP 06/28 2219 98.3 80 19 118/86 93 Nasal Cannula 06/28 2029 80 20 118/86 06/28 1610 93 BIPAP 5.0L 06/28 1444 98.9 79 18 112/90 94 Nasal 4.0L Cannula 06/28 0905 60 116/68 06/28 0831 95 Nasal 4.0L Cannula 06/28 0800 Nasal 4.0L Cannula Intake & Output 06/29 0800 06/29 0000 06/28 1600 Intake Total 360 480 Output Total 200 400 350 Balance -200 -40 130 Intake, Oral 360 480 Number 1 Bowel Movements Output, Urine 200 400 350 Patient 162 lb Weight Physical Exam General Appearance: Alert, Oriented X3, Cooperative, No Acute Distress Skin: No Rashes, skin tears on right and left arm, and bedsores on sacral area. Skin Temp/Moisture Exam: Warm/Dry Sepsis Skin Exam (color): Normal for Ethnicity HEENT: Atraumatic Neck: Supple, No JVD Cardiovascular: Regular Rate, Normal S1, Normal S2 Lungs: Normal Air Movement, Minimal bilateral ronchi, improved from yesterday Abdomen: Normal Bowel Sounds, Soft, No Tenderness Neurological: Normal Speech Extremities: No Clubbing, Bilateral lower extremity 2+ pitting edema up to ankle on left and mid calf on right side Vascular: Normal Pulses, Pulses Symmetrical Assessment/Plan Assessment: Mr. Vieira is a 68-year-old male with past medical history of COPD, CHF, A. fib, diabetes mellitus, and other medical problems who has been admitted here with chief complaint of shortness of breath and exacerbation of COPD with positive cultures. He will be dicharged to home tomorrow morning. He denies rehab and likes to go home. Acute COPD exacerbation: His lung examination has improved, and he is on his own BiPAP machine. Plan: Prednisone was tapered per pulmonology consult. He is receiving acetylcysteine inhalant, he is on his own BiPAP machine per dramatic arts historian. Congestive heart failure: He was diagnosed with congestive heart failure with ejection fraction of 35-40%. He has moderate to severe pulmonary hypertension, which is not new. Plan: IV Lasix 40 mg twice daily. Will be discharged on PO Lasix 40mg BID based on cardioliogist consult. Pneumonia: Lower respiratory cultures were positive for Staph. areus (non-MRSA) and Klebsiella pneumonia. Plan: He received Keflex 500 p.o. and the course was completed. Anemia: He had a total of 2 transfusions in his admission. His last Hb is stable at 7.6. Plan: We will recheck and follow H&H closely. He is currently on Xarelto with guiac positive result. Singer Back Tender consult was appreciated. DM: Blood sugar level has been controlled. He is not compliant with his diet. Plan: We will continue insulin and continue the hold of metformin due to decreased renal function. Acute on chronic renal failure (Stage 4): Creatinine is back to baseline 1.7-1.6 from 2.5 and has been stable for 2 days. Plan: We will avoid renal toxic medications (NSAIDS and metformin). Problem List: 1. COPD exacerbation 2. CHF (congestive heart failure) 3. Diabetes mellitus 4. Pneumonia 5. Skin tear of elbow without complication 6. MADISON (acute kidney injury) 7. Chronic renal failure 8. Anemia 9. GI bleed Pain Ratin Pain Location: NA Pain Goal: Remain pain free Pain Plan: NA Tomorrow's Labs & Rationales: NA Consulting Request: Consulting Specialty: Pulmonary Disease Consulting Physician: Mark So MD Reason for Consult: COPD exacerbation D'Elmore MD,Anushka 06/29/18 1019: Attending MD Review Statement Attending Statement Attending MD Statement: examined this patient, discuss w/resident/PA/LOGISTICS CENTER MANAGER, agreed w/resident/PA/LOGISTICS CENTER MANAGER, reviewed EMR data (avail), discussed with nursing, discussed with case mgmt Attending Assessment/Plan: Overall patient is doing okay. He remains noncompliant with his diet. He adamantly refuses rehab and the plan is that he will go home tomorrow. His echo showed his EF of 35-40% and we are switching his IV Lasix to p.o. He is a 68- year-old male with a long-standing history of chronic respiratory failure COPD and obstructive sleep apnea, chronic systolic heart failure, CKD and chronic anemia on Xarelto with A. fib. He was treated for a community-acquired pneumonia and finished his antibiotic course, he was treated for the COPD exacerbation and is on a prednisone taper. We were diuresing him with IV Lasix for volume overload and now he is on p.o. He is chronically anemic he had a full endoscopic and colonoscopic workup in April which was nonrevealing and he is on iron. He will go home with services. Because of his multiple comorbidities and noncompliance I worry about recurrent readmissions.
--- NOTE | 2018-06-29 08:34 | PN- Pulmonary ---
See Addendum Subjective HPI/Critical Care Issues: pt seen and examined afebrile 98.1 97% 4LNC - bipap overnight dyspnea continues to be primarily exertional stable secretions no segura, no cp, no n/v/d/c Objective Current Medications: Current Medications Sig/Eve Start time Last Medication Dose Route Stop Time Status Admin Acetaminophen 500 MG Q6P PRN 06/24 1145 AC PO Acetaminophen 650 MG Q6-PRN PRN 06/17 1615 AC PO Albuterol Sulfate 3 ML EVERY 4 HRS/AWAKE 06/18 08 AC 06/28 INH 2015 Albuterol Sulfate 1 PUF Q4H PRN 06/17 1615 AC INH Albuterol Sulfate 3 ML Q6H PRN 06/17 1615 AC 06/22 INH 0046 Aspirin Buffered 81 MG DAILY 06/18 900 AC 06/29 PO 0821 Atorvastatin Calcium 10 MG DAILY 06/18 900 AC 06/29 PO 0821 Budesonide/ 2 PUF BID 06/17 2100 AC 06/29 Formoterol Fumarate INH 08 Cyanocobalamin 1,000 MCG DAILY 06/18 09 AC 06/29 PO 0821 Diltiazem HCl 240 MG DAILY 06/18 09 AC 06/29 PO 0821 Ferrous Sulfate 325 MG TID 06/17 2100 AC 06/29 PO 0821 Furosemide 40 MG 7:30 AM, & 4:30 PM 06/26 830 AC 06/29 IV 0820 Guaifenesin 10 ML Q4P PRN 06/17 1600 AC 06/23 PO 1654 Insulin Aspart 0 TIDAC 06/17 1700 AC 06/28 SC 1153 Insulin Detemir 10 UNITS 06/18 09 AC 06/29 SC 0820 Insulin Detemir 8 UNITS AT BEDTIME 06/17 2100 AC 06/28 MI 2029 Loperamide HCl 4 MG BID PRN 06/17 1615 AC PO Metoprolol Tartrate 25 MG BID 06/17 2100 AC 06/29 PO 0821 Omeprazole 40 MG 1/2H B/BREAKF/DINNER 06/17 1630 AC 06/29 PO 0556 Ondansetron HCl 4 MG ONCE PRN 06/22 0900 AC IV Polyethylene Glycol 17 GM DAILY 06/26 921 AC 06/29 PO 0821 Potassium Chloride 20 MEQ DAILY 06/18 09 AC 06/29 PO 0821 Rivaroxaban 15 MG AT BEDTIME 06/17 2100 AC 06/28 PO 2028 Senna/Docusate Sodium 1 TAB BID 06/26 921 AC 06/29 PO 820 Sodium Chloride 2 SPRAY Q4P PRN 06/19 1215 AC 06/19 CESAR 1718 Tiotropium [place] 1 PUF DAILY 06/18 09 AC 06/28 INH 0903 Vital Signs & I&O Last 24 Hrs of Vitals and I&O: Vital Signs Date Time Temp Pulse Resp B/P B/P Pulse O2 O2 Flow FiO2 Mean Ox Delivery Rate 06/29 613 98.1 61 22 116/68 97 Room Air 06/29 0000 BIPAP 06/28 2219 98.3 80 19 118/86 93 Nasal Cannula 06/28 2029 80 20 118/86 06/28 1610 93 BIPAP 5.0L 06/28 1444 98.9 79 18 112/90 94 Nasal 4.0L Cannula 06/28 0905 60 116/68 Intake & Output 06/29 1600 06/29 0800 06/29 0000 Intake Total 400 360 Output Total 650 400 Balance -250 -40 Intake, Oral 400 360 Number 1 Bowel Movements Output, Urine 650 400 Patient 162 lb Weight Exam Other Physical Findings: gen - awake and alert head/neck - o2 via nc cvs -s1, s2 lungs - b/l rare rhonchi abd - soft, bs+ ext - + edema Results Last 24 Hrs of Lab Results: Laboratory Tests 06/29/18 0734: Sodium Pending, Potassium Pending, Chloride Pending, Carbon Dioxide Pending, Anion Gap Pending, BUN Pending, Creatinine Pending, BUN/Creatinine Ratio Pending Impression/Plan Impression/Plan Impression/Plan: Impression 68 year old man * improving acute exacerbation of COPD * CHF exacerbation/volume overload * sputum with Klebsiella, Staph Aureus * chronic hypoxemic respiratory failure * Hx of BHARATHI * stable anemia Plan -completed prednisone taper -trc/nebs, continue inhalers -Klebsiella/staph in sputum - completed abx -anemia per primary team -continue NIV BiPAP nocturnally and as needed -dc planning DVT prophylaxis at all times
[2018-06-29 14:28] VITALS: BP 99/60
--- NOTE | 2018-06-29 15:10 | Patient Discharge Instructions ---
Discharge Instructions General Discharge Information You were seen/treated for: Fluid overload COPD exacerbation Pneumonia High blood sugars Congestive heart failure Pulmonary hypertension acute on chronic renal failure Watch for these problems: Worsening shortness of breath Swelling in your legs Fever Worsening of your sacral ulcers Lightheadedness, dizziness Blood in urine or stool Special Instructions: Please follow-up with your PCP Please follow-up with your pathology assistant Please follow-up with your parts product analyst Please follow-up with wound care Please watch your diet to avoid high blood sugars Please take your medications on time Activity Full Activity/No Limits: No Activity Self Limited: Yes (assist of 1) Acute Coronary Syndrome Inclusion Criteria At DC or during hospital stay patient has or had the following: ACS DIAGNOSIS No Discharge Core Measures Meds if any: Prescribed or Continued at Discharge Meds if any: NOT Prescribed or Continued at Discharge Congestive Heart Failure Inclusion Criteria At DC or during hospital stay patient has or had the following: CHF DIAGNOSIS Yes Discharge Core Measures Meds if any: Prescribed or Continued at Discharge PA/ARB for EF <40% No Meds if any: NOT Prescribed or Continued at Discharge Cerebrovascular accident Inclusion Criteria At DC or during hospital stay patient has or had the following: CVA/TIA Diagnosis No Discharge Core Measures Meds if any: Prescribed or Continued at Discharge Meds if any: NOT Prescribed or Continued at Discharge Venous thromboembolism Inclusion Criteria VTE Diagnosis No VTE Type NONE VTE Confirmed by (Test) NONE Discharge Core Measures - Per Current guidelines, there needs to be overlap - treatment for the first 5 days of Warfarin therapy. - If discharged on Warfarin prior to 5 days of - overlap therapy, the patient will need to be - assessed for post discharge needs including - *Post discharge parental anticoagulation - *Warfarin and/or parental anticoagulation education - *Follow up date to check INR post discharge At least 5 days overlap therapy as Inpatient No Meds if any: Prescribed or Continued at Discharge Note: Overlap Therapy is Warfarin and Anticoagulant Meds if any: NOT Prescribed or Continued at Discharge Note: Overlap Therapy is Warfarin and Anticoagulant Meds if any: NOT Prescribed or Continued at Discharge
[2018-06-29 22:10] VITALS: BP 116/70
[2018-06-30 06:19] VITALS: BP 112/64
--- NOTE | 2018-06-30 08:03 | PN- Housestaff ---
Subjective Follow-up For: Acute COPD exacerbation Pneumonia Fluid overload IDDM Acute on chronic renal failure Subjective: I visited Mr. Vieira this morning. He was denying any with his own BiPAP machine on, he was alert and oriented x3, in no acute distress. He had no complaints overnight. He could get some sleep overnight, he had no shortness of breath, chest pain, lightheadedness, dizziness, abdominal pain, nausea, vomiting , dysuria, frequency, pain in extremities, or pain at the site of sacral bedsores. He had one episode of bright blood cough when I was in the room. Review of Systems Constitutional: Reports: see HPI. Objective Last 24 Hrs of Vital Signs/I&O Vital Signs Date Time Temp Pulse Resp B/P B/P Pulse O2 O2 Flow FiO2 Mean Ox Delivery Rate 06/30 0619 98.1 85 18 112/64 98 BIPAP 06/30 0000 Nasal 4.0L Cannula 06/29 2210 97.8 98 20 116/70 100 BIPAP 06/29 2136 93 Nasal 5.0L Cannula 06/29 2116 68 110/50 06/29 1612 94 Nasal 5.0L Cannula 06/29 1428 97.4 67 20 99/60 96 Nasal 5.0L Cannula 06/29 1129 96 BIPAP Intake & Output 06/30 1600 06/30 0800 06/30 0000 Intake Total 200 Output Total 400 Balance -200 Intake, Oral 200 Output, Urine 400 Physical Exam General Appearance: Alert, Oriented X3, Cooperative, No Acute Distress Skin Temp/Moisture Exam: Warm/Dry HEENT: Atraumatic Cardiovascular: Regular Rate, Normal S1, Normal S2 Lungs: Normal Air Movement Abdomen: Normal Bowel Sounds, Soft, No Tenderness Extremities: Normal Pulses Assessment/Plan Assessment: Mr. Vieira is a 68-year-old male with past medical history of COPD, CHF, A. fib, diabetes mellitus, and other medical problems who has been admitted here with chief complaint of shortness of breath and exacerbation of COPD with positive cultures. He was planned to be dicharged to home this morning. Now he believes he should go to [facility] to make less trouble for her . Acute COPD exacerbation: His lung examination has improved, and he is on his own BiPAP machine. Plan: Prednisone was tapered per pulmonology consult. He is receiving acetylcysteine inhalant, he is on his own BiPAP machine per reticle printer. Congestive heart failure: He was diagnosed with congestive heart failure with ejection fraction of 35-40%. He has moderate to severe pulmonary hypertension, which is not new. Plan: IV Lasix 40 mg twice daily. Will be discharged on PO Lasix 40mg BID based on cardioliogist consult. Pneumonia: Lower respiratory cultures were positive for Staph. areus (non-MRSA) and Klebsiella pneumonia. Plan: He received Keflex 500 p.o. and the course was completed. Anemia: He had a total of 2 transfusions in his admission. His last Hb is stable at 7.6. Plan: We will recheck and follow H&H closely. He is currently on Xarelto with guiac positive result. Document Review Attorney consult was appreciated. DM: Blood sugar level has been controlled. He is not compliant with his diet. Plan: We will continue insulin and continue the hold of metformin due to decreased renal function. Acute on chronic renal failure (Stage 4): Creatinine is back to baseline 1.7-1.6 from 2.5 and has been stable. Plan: We will avoid renal toxic medications (NSAIDS and metformin). Problem List: 1. COPD exacerbation 2. CHF (congestive heart failure) 3. Diabetes mellitus 4. Pneumonia 5. Skin tear of elbow without complication 6. MADISON (acute kidney injury) 7. Chronic renal failure 8. Anemia 9. GI bleed Pain Ratin Pain Location: NA Pain Goal: Remain pain free Pain Plan: NA Tomorrow's Labs & Rationales: CBC. BEP Consulting Request: Consulting Specialty: Pulmonary Disease Consulting Physician: Mark So MD Reason for Consult: COPD exacerbation
[2018-06-30 12:04] LABS: ABSOLUTE BASOPHIL COUNT 0 /CUMM (0.0-0.2); ABSOLUTE EOSINOPHIL COUNT 0 /CUMM (0.0-0.7); ABSOLUTE GRANULOCYTE CT 6.9 /CUMM (1.4-6.5); ABSOLUTE LYMPH COUNT 0.3 /CUMM (1.2-3.4); ABSOLUTE MONOCYTE COUNT 0.4 /CUMM (0.10-0.60); BASOPHIL % 0.1 % (0.0-2.0); EOSINOPHIL % 0.3 % (0-5); GRANULOCYTE % 89.9 % (42.2-75.2); HEMATOCRIT 23.2 % (42-52); MEAN CORPUSCULAR HGB CONC 31.8 G/DL (33.0-37.0); MEAN PLATELET VOLUME 8.7 FL (7.4-10.4); PLATELET COUNT 175 /CUMM (130-400); RBC DISTRIBUTION WIDTH 17.7 % (11.5-14.5); RED BLOOD CELL CT 2.64 /CUMM (4.70-6.10); WHITE BLOOD CELL COUNT 7.7 /CUMM (4.8-10.8)
[2018-06-30 15:36] VITALS: BP 100/60
--- NOTE | 2018-06-30 16:03 | PN- Pulmonary ---
Subjective HPI/Critical Care Issues: pt seen and examined feels better overall episode of minor hemoptysis one occurence no n/v/d/c on bipap Objective Current Medications: Current Medications Sig/Eve Start time Last Medication Dose Route Stop Time Status Admin Acetaminophen 500 MG Q6P PRN 06/24 1145 AC PO Acetaminophen 650 MG Q6-PRN PRN 06/17 1615 AC PO Albuterol Sulfate 3 ML EVERY 4 HRS/AWAKE 06/18 08 AC 06/30 INH 1208 Albuterol Sulfate 1 PUF Q4H PRN 06/17 1615 AC INH Albuterol Sulfate 3 ML Q6H PRN 06/17 1615 AC 06/22 INH 0046 Aspirin Buffered 81 MG DAILY 06/18 09 AC 06/30 PO 0857 Atorvastatin Calcium 10 MG DAILY 06/18 09 AC 06/30 PO 0857 Budesonide/ 2 PUF BID 06/17 2100 AC 06/30 Formoterol Fumarate INH 0901 Cyanocobalamin 1,000 MCG DAILY 06/18 09 AC 06/30 PO 0857 Diltiazem HCl 240 MG DAILY 06/18 09 AC 06/30 PO 0857 Ferrous Sulfate 325 MG TID 06/17 2100 AC 06/30 PO 1340 Furosemide 40 MG 7:30 AM, & 4:30 PM 06/29 1630 AC 06/30 PO 0746 Guaifenesin 10 ML Q4P PRN 06/17 1600 AC 06/23 PO 1654 Insulin Aspart 0 TIDAC 06/17 1700 AC 06/30 SC 1221 Insulin Detemir 10 UNITS 06/18 09 AC 06/30 SC 0855 Insulin Detemir 8 UNITS AT BEDTIME 06/17 2100 AC 06/29 SC 2112 Loperamide HCl 4 MG BID PRN 06/17 1615 AC PO Metoprolol Tartrate 25 MG BID 06/17 2100 AC 06/30 PO 0901 Omeprazole 40 MG 1/2H B/BREAKF/DINNER 06/17 1630 AC 06/30 PO 0618 Ondansetron HCl 4 MG ONCE PRN 06/22 0900 AC IV Polyethylene Glycol 17 GM DAILY 06/26 921 AC 06/29 PO 0821 Potassium Chloride 20 MEQ DAILY 06/18 09 AC 06/30 PO 0856 Rivaroxaban 15 MG AT BEDTIME 06/17 2100 AC 06/29 PO 2120 Senna/Docusate Sodium 1 TAB BID 06/26 0921 AC 06/29 PO 2112 Sodium Chloride 2 SPRAY Q4P PRN 06/19 1215 AC 06/19 CESAR 1718 Tiotropium [place] 1 PUF DAILY 06/18 0900 AC 06/30 INH 0901 Vital Signs & I&O Last 24 Hrs of Vitals and I&O: Vital Signs Date Time Temp Pulse Resp B/P B/P Pulse O2 O2 Flow FiO2 Mean Ox Delivery Rate 06/30 1536 98.8 92 20 100/60 93 06/30 0901 68 108/64 06/30 0820 95 Nasal 4.0L Cannula 06/30 0800 BIPAP 4.0L 06/30 0619 98.1 85 18 112/64 98 BIPAP 06/30 0000 Nasal 4.0L Cannula 06/29 2210 97.8 98 20 116/70 100 BIPAP 06/29 2136 93 Nasal 5.0L Cannula 06/29 2116 68 110/50 06/29 1612 94 Nasal 5.0L Cannula Intake & Output 06/30 1600 06/30 0800 06/30 0000 Intake Total 360 200 Output Total 500 400 Balance -140 -200 Intake, Oral 360 200 Number 1 Bowel Movements Output, Urine 500 400 Exam Other Physical Findings: gen - awake and alert head/neck - o2 via nc cvs -s1, s2 lungs - b/l rare rhonchi abd - soft, bs+ ext - + edema Results Last 24 Hrs of Lab Results: Laboratory Tests 06/30/18 1143: Anion Gap 8, Estimated GFR 40 L, BUN/Creatinine Ratio 25.3 H, CBC w Diff NO MAN DIFF REQ, RBC 2.64 L, MCV 88.0, MCH 28.0, MCHC 31.8 L, RDW 17.7 H, MPV 8.7, Gran % 89.9 H, Lymphocytes % 4.2 L, Monocytes % 5.5, Eosinophils % 0.3, Basophils % 0.1, Absolute Granulocytes 6.9 H, Absolute Lymphocytes 0.3 L, Absolute Monocytes 0.4, Absolute Eosinophils 0, Absolute Basophils 0 Impression/Plan Impression/Plan Impression/Plan: Impression 68 year old man * improving acute exacerbation of COPD * CHF exacerbation/volume overload * sputum with Klebsiella, Staph Aureus * chronic hypoxemic respiratory failure * Hx of BHARATHI * stable anemia Plan -completed prednisone taper -trc/nebs, continue inhalers -Klebsiella/staph in sputum - completed abx -anemia per primary team -continue NIV BiPAP nocturnally and as needed -dc planning DVT prophylaxis at all times
[2018-06-30 22:16] VITALS: BP 100/58
[2018-07-01 07:22] VITALS: BP 108/58
[2018-07-01 08:01] VITALS: BP 108/58
--- NOTE | 2018-07-01 11:48 | PN- Pulmonary ---
Subjective HPI/Critical Care Issues: pt seen and examined feels better overall no further hemoptysis no n/v/d/c on bipap nocturnal and prn anticipating discharge Objective Current Medications: Current Medications Sig/Eve Start time Last Medication Dose Route Stop Time Status Admin Acetaminophen 500 MG Q6P PRN 06/24 1145 AC PO Acetaminophen 650 MG Q6-PRN PRN 06/17 1615 AC PO Albuterol Sulfate 3 ML EVERY 4 HRS/AWAKE 06/18 08 AC 07/01 INH 0908 Albuterol Sulfate 1 PUF Q4H PRN 06/17 1615 AC INH Albuterol Sulfate 3 ML Q6H PRN 06/17 1615 AC 06/22 INH 0046 Aspirin Buffered 81 MG DAILY 06/18 900 AC 07/01 PO 0801 Atorvastatin Calcium 10 MG DAILY 06/18 09 AC 07/01 PO 0801 Budesonide/ 2 PUF BID 06/17 2100 AC 07/01 Formoterol Fumarate INH 0759 Cyanocobalamin 1,000 MCG DAILY 06/18 09 AC 07/01 PO 0801 Diltiazem HCl 240 MG DAILY 06/18 09 AC 07/01 PO 0801 Ferrous Sulfate 325 MG TID 06/17 2100 AC 07/01 PO 0801 Furosemide 40 MG 7:30 AM, & 4:30 PM 06/29 1630 AC 07/01 PO 0656 Guaifenesin 10 ML Q4P PRN 06/17 1600 AC 06/23 PO 1654 Insulin Aspart 0 TIDAC 06/17 1700 AC 06/30 ME 1701 Insulin Detemir 10 UNITS 06/18 09 AC 07/01 SC 0803 Insulin Detemir 8 UNITS AT BEDTIME 06/17 2100 AC 06/30 ME 2139 Loperamide HCl 4 MG BID PRN 06/17 1615 AC PO Metoprolol Tartrate 25 MG BID 06/17 2100 AC 07/01 PO 0801 Omeprazole 40 MG 1/2H B/BREAKF/DINNER 06/17 1630 AC 07/01 PO 0656 Ondansetron HCl 4 MG ONCE PRN 06/22 0900 AC IV Polyethylene Glycol 17 GM DAILY 06/26 921 AC 06/29 PO 0821 Potassium Chloride 20 MEQ DAILY 06/18 09 AC 07/01 PO 0801 Rivaroxaban 15 MG AT BEDTIME 06/17 2100 AC 08/11 PO 2140 Senna/Docusate Sodium 1 TAB BID 06/26 0921 AC 07/01 PO 0801 Sodium Chloride 2 SPRAY Q4P PRN 06/19 1215 AC 06/19 CESAR 1718 Tiotropium [place] 1 PUF DAILY 06/18 0900 AC 07/01 INH 0758 Vital Signs & I&O Last 24 Hrs of Vitals and I&O: Vital Signs Date Time Temp Pulse Resp B/P B/P Pulse O2 O2 Flow FiO2 Mean Ox Delivery Rate 07/01 0911 98 BIPAP 5.0L 07/01 0909 70 98 07/01 0801 93 108/58 07/01 0800 Nasal 5.0L Cannula 07/01 0722 98.2 93 20 108/58 97 07/01 0000 95 CPAP 5.0L 06/30 2216 98.9 96 20 100/58 95 BIPAP 06/30 2140 96 100/58 06/30 1715 98 BIPAP 5.0L 06/30 1600 Nasal 5.0L Cannula 06/30 1536 98.8 92 20 100/60 93 Intake & Output 07/01 1600 07/01 0800 07/01 0000 Intake Total 500 600 Output Total 725 300 Balance -225 300 Intake, IV 0 Intake, Oral 500 600 Number 1 1 Bowel Movements Output, Urine 725 300 Patient 163 lb Weight Weight Bed scale Measurement Method Exam Other Physical Findings: gen - awake and alert head/neck - o2 via nc cvs -s1, s2 lungs - b/l rare rhonchi abd - soft, bs+ ext - + edema Impression/Plan Impression/Plan Impression/Plan: Impression 68 year old man * improving acute exacerbation of COPD * CHF exacerbation/volume overload * sputum with Klebsiella, Staph Aureus * chronic hypoxemic respiratory failure * Hx of BHARATHI * stable anemia Plan -completed prednisone taper -trc/nebs, continue inhalers -Klebsiella/staph in sputum - completed abx -anemia per primary team -continue NIV BiPAP nocturnally and as needed -dc planning, f/u in office DVT prophylaxis at all times
--- NOTE | 2018-07-01 12:56 | PN- Housestaff ---
Subjective Follow-up For: Acute COPD exacerbation Pneumonia Fluid overload IDDM Acute on chronic renal failure Subjective: Afebrile overnight. No acute events noted. Patient is currently awake and receiving his BiPaP treatment. Patient is ready and dressed to be transferred to [facility] with bed availability confirmed from prior. Patient otherwise is in good health. Patient denies any fevers, chills, fatigue, chest pain, n/v, diarrhea, constipation, and shortness of breath as of today. Review of Systems Constitutional: Reports: see HPI. Objective Last 24 Hrs of Vital Signs/I&O Vital Signs Date Time Temp Pulse Resp B/P B/P Pulse O2 O2 Flow FiO2 Mean Ox Delivery Rate 07/01 0911 98 BIPAP 5.0L 07/01 0909 70 98 07/01 0801 93 108/58 07/01 0800 Nasal 5.0L Cannula 07/01 0722 98.2 93 20 108/58 97 07/01 0000 95 CPAP 5.0L 06/30 2216 98.9 96 20 100/58 95 BIPAP 06/30 2140 96 100/58 06/30 1715 98 BIPAP 5.0L Intake & Output 07/01 1600 07/01 0800 07/01 0000 Intake Total 500 600 Output Total 725 300 Balance -225 300 Intake, IV 0 Intake, Oral 500 600 Number 1 1 Bowel Movements Output, Urine 725 300 Patient 163 lb Weight Weight Bed scale Measurement Method Physical Exam General Appearance: Alert, Oriented X3, Cooperative, No Acute Distress Skin: No Rashes, No Breakdown HEENT: Atraumatic Neck: Supple, No JVD Cardiovascular: Regular Rate, Normal S1, Normal S2 Lungs: Clear to Auscultation (BiPaP in use) Abdomen: Soft, No Tenderness Neurological: Normal Speech Assessment/Plan Assessment: Mr. Vieira is a 68-year-old male with past medical history of COPD, CHF, A. fib, diabetes mellitus, and other medical problems who has been admitted here with chief complaint of shortness of breath and exacerbation of COPD with positive cultures. He was planned to be dicharged to home this morning. Now he believes he should go to [facility] to make less trouble for her . Acute COPD exacerbation: His lung examination has improved, and he is on his own BiPAP machine. Plan: Prednisone was tapered per pulmonology consult. He is receiving acetylcysteine inhalant, he is on his own BiPAP machine per wealth management advisor. Congestive heart failure: He was diagnosed with congestive heart failure with ejection fraction of 35-40%. He has moderate to severe pulmonary hypertension, which is not new. Plan: IV Lasix 40 mg twice daily. Will be discharged on PO Lasix 40mg BID based on cardioliogist consult. Patient will be discharged today to [facility]. Pneumonia: Lower respiratory cultures were positive for Staph. areus (non-MRSA) and Klebsiella pneumonia. Plan: He received Keflex 500 p.o. and the course was completed. Anemia: He had a total of 2 transfusions in his admission. His last Hb is stable at 7.6. Plan: He is currently on Xarelto with guiac positive result. 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 DM: Blood sugar level has been controlled. He is not compliant with his diet. Plan: We will continue insulin and continue the hold of metformin due to decreased renal function. Acute on chronic renal failure (Stage 4): Creatinine is back to baseline 1.7-1.6 from 2.5 and has been stable. Plan: We will avoid renal toxic medications (NSAIDS and metformin). Problem List: 1. COPD (chronic obstructive pulmonary disease) 2. CHF (congestive heart failure) 3. HTN (hypertension) 4. Hyperlipidemia 5. Anemia 6. MADISON (acute kidney injury) 7. Chronic renal failure 8. GI bleed Pain Ratin Pain Location: NA Pain Goal: Remain pain free Pain Plan: NA Tomorrow's Labs & Rationales: NA Consulting Request: Consulting Specialty: Pulmonary Disease Consulting Physician: Mark So MD Reason for Consult: COPD exacerbation
== END 2018-07-01 12:55 | disposition home health service (06) | DRG 178 ==
LOC: ERH 10:46 → ERHI 14:23 → 2NB 14:23 → ENRESERV 15:01 → ENTRNSPT 16:03 → EDTRNSPTSTS 16:19 → 2NB 16:28 → CMPTRNSPT 16:45 → 2NB 18:00 → 2NA 06-23 13:26 → ENTRNSPT 07-01 12:24 → EDTRNSPT 07-01 12:38 → EDTRNSPTSTS 07-01 12:38 → 2NA 07-01 12:55 → CMPTRNSPT 07-01 13:03
PROVIDERS: Emergency Medicine; Internal Medicine; Student in an Organized Health Care Education/Training Program
PROC: 5A09357 Assistance with Respiratory Ventilation, Less than 24 Consecutive Hours, Continuous Positive Airway Pressure (ICD-10-PCS; principal; 2018-06-17)
DX: J15.211 Pneumonia due to Methicillin susceptible Staphylococcus aureus (principal); J44.0 Chronic obstructive pulmonary disease with (acute) lower respiratory infection; N17.9 Acute kidney failure, unspecified; J96.11 Chronic respiratory failure with hypoxia; I50.22 Chronic systolic (congestive) heart failure; I13.0 Hypertensive heart and chronic kidney disease with heart failure and stage 1 through stage 4 chronic kidney disease, or unspecified chronic kidney disease; N18.4 Chronic kidney disease, stage 4 (severe); J44.1 Chronic obstructive pulmonary disease with (acute) exacerbation; J15.0 Pneumonia due to Klebsiella pneumoniae; L89.302 Pressure ulcer of unspecified buttock, stage 2; L89.151 Pressure ulcer of sacral region, stage 1; I27.20 Pulmonary hypertension, unspecified; Z99.81 Dependence on supplemental oxygen; I48.2 Chronic atrial fibrillation; D64.9 Anemia, unspecified; E11.22 Type 2 diabetes mellitus with diabetic chronic kidney disease; B35.1 Tinea unguium; G47.33 Obstructive sleep apnea (adult) (pediatric); Z79.01 Long term (current) use of anticoagulants; K21.9 Gastro-esophageal reflux disease without esophagitis; Z85.46 Personal history of malignant neoplasm of prostate; E78.5 Hyperlipidemia, unspecified; Z87.891 Personal history of nicotine dependence; Z86.73 Personal history of transient ischemic attack (TIA), and cerebral infarction without residual deficits; Z79.4 Long term (current) use of insulin
CPT/HCPCS: 2NAP; 2NBP; 84133; 84300; 87184; 36415; 36592; 71045; 71046; 72220; 76775; 81003; 82436; 82570; 86902; 86920; 86922; 87040; 87070; 87071; 87147; 87449; 87450; 93005; 93010; 93306; 96374; 96375; 97110-GO; 97116-GO; 97161-GP; 97530-GO; 99291; J0713; J1940; J2405; J2920; J2930; J3370; J3490; J7040; J7512; J7608; P9016; P9047

== ENCOUNTER 2018-07-30 18:29 | Inpatient (IN) | payer OTHER ==
[~2018-07-30] VITALS: Ht 180.3 cm; Wt 70.4 kg
[~2018-07-30 18:29] MED LIST changes: +ACETAZOLAMIDE500 M2 PO; +ASPIRIN EC81 M1 PO; +ATORVASTATIN CA10 M1 PO; +METOLAZONE2.5 M1 PO
--- NOTE | 2018-07-30 19:44 | RADIOLOGY REPORT ---
EXAMINATION: CHEST AND X-RAY AP PELVIS CLINICAL INFORMATION: Trauma. Fell out of bed. COMPARISON: None TECHNIQUE: Chest 2 views. AP pelvis one view. FINDINGS: CHEST: There is moderate cardiomegaly with normal pulmonary vascularity. The lungs are expanded with diffuse finding prominence of interstitial markings with patchy ill-defined density right midlung and right lower lobe. Cannot exclude underlying infiltrate or parenchymal lesion. There is no effusion. No gross bony abnormality. PELVIS: There is normal symmetry of bilateral hip joints and SI joints. No visible acute fracture, dislocation or lytic process seen. There is moderate stool in the right colon. There is bilateral common iliac stents in place. IMPRESSION: Cardiomegaly. Diffuse prominent interstitial markings in both lungs likely chronic changes. Interstitial pneumonitis is not excluded. Similar findings were seen on the previous study 06/25/2018. However patchy opacity right midlung is slightly more prominent than the previous study. Focal infiltrate is not excluded.
--- NOTE | 2018-07-30 19:57 | CT SCAN REPORT ---
EXAM: Noncontrast CT scan of the head and cervical spine. INDICATION: Fall with head strike. Altered mental status. COMPARISON: None TECHNIQUE: Axial slices were obtained from skull base to vertex and displayed. This was followed by helical, multislice, multidetector axial images from the occiput to the upper thorax. Coronal and sagittal reformats of the cervical spine in addition to coronal reformats of the head were obtained at the technologist workstation. Examination is suboptimal secondary to patient motion. The patient refused further imaging. DLP: 1430 mGy-cm FINDINGS: HEAD: There is no evidence of acute intracranial hemorrhage or territorial infarction. No abnormal mass effect or midline shift is appreciated. Wheat-white differentiation is well preserved. No extra-axial fluid collections. The ventricular system and cortical sulci are within normal limits. There are areas of low density in the periventricular and subcortical white matter, most consistent with sequelae of microvascular ischemic change. No acute fracture. Hyperostosis along the posterior inferior superior dural surface consistent with calcified old subdural hematomas. There is mild to moderate calcifications of the cavernous internal carotid arteries. The visualized paranasal sinuses and mastoid air cells are grossly well aerated. SPINE: No acute fractures or dislocations of the cervical spine are seen. There is minimal retrolisthesis of C3 on C4. Alignment is otherwise within normal limits. Vertebral body heights are well-maintained. Disc spaces are diffusely decreased, most prominent at C5/C6 and C6/C7. The atlantoaxial joint and craniovertebral articulations are normal without evidence of subluxation. There is no prevertebral soft tissue swelling IMPRESSION: 1. Motion artifact significantly degrades examination. 2. No gross intracranial hemorrhage. Age-related microvascular ischemic changes. 3. Degenerative changes of the cervical spine without gross fracture.
[2018-07-30 20:03] LABS: ABSOLUTE BASOPHIL COUNT 0 /CUMM (0.0-0.2); ABSOLUTE EOSINOPHIL COUNT 0 /CUMM (0.0-0.7); ABSOLUTE GRANULOCYTE CT 8.3 /CUMM (1.4-6.5); ABSOLUTE LYMPH COUNT 0.7 /CUMM (1.2-3.4); ABSOLUTE MONOCYTE COUNT 0.5 /CUMM (0.10-0.60); BASOPHIL % 0 % (0.0-2.0); EOSINOPHIL % 0.4 % (0-5); GRANULOCYTE % 87.3 % (42.2-75.2); HEMATOCRIT 23.5 % (42-52); MEAN CORPUSCULAR HGB 27.1 PG (27.0-31.0); MEAN CORPUSCULAR HGB CONC 31.8 G/DL (33.0-37.0); MEAN CORPUSCULAR VOLUME 85.3 FL (80.0-94.0); MEAN PLATELET VOLUME 8.2 FL (7.4-10.4); PLATELET COUNT 189 /CUMM (130-400); RED BLOOD CELL CT 2.76 /CUMM (4.70-6.10); WHITE BLOOD CELL COUNT 9.6 /CUMM (4.8-10.8)
--- NOTE | 2018-07-30 20:06 | ED MVC/FALL/TRAUMA COMPLAINT ---
History of Present Illness General Chief Complaint: Fall Stated Complaint: BIBA FOR FALL OUT OF BED Source: patient, family, old records, EMS Exam Limitations: no limitations Vital Signs & Intake/Output Vital Signs & Intake/Output Vital Signs Date Time Temp Pulse Resp B/P B/P Pulse O2 O2 Flow FiO2 Mean Ox Delivery Rate 07/30 2205 97.4 108 18 108/83 96 Nasal 6.0L Cannula 07/30 1936 Room Air 07/30 1837 98.3 109 18 128/86 99 Nasal 6.0L Cannula Allergies Coded Allergies: No Known Allergies (04/10/18) Reconcile Medications Albuterol Sulfate 2.5 MG/3 ML (0.083 %) VIAL.NEB 1 Vial INH/ABILIO Q6H PRN SHORTNESS OF BREATH (Reported) Albuterol Sulfate (Proair Hfa) 90 MCG HFA.AER.AD 1 PUF INH Q4H PRN SHORTNESS OF BREATH (Reported) Aspirin (Ecotrin*) 81 MG TABLET.DR 1 TAB PO DAILY HEART/BLOOD (Reported) Atorvastatin Calcium 10 MG TABLET 1 TAB PO DAILY CHOLESTEROL (Reported) Budesonide/Formoterol Fumarate (Symbicort 160-4.5 Mcg Inhaler) 160 MCG-4.5 MCG/ ACTUATION HFA.AER.AD 2 PUF INH BID SHORTNESS OF BREATH (Reported) Cyanocobalamin (Vitamin B-12) (B-12) 1,000 MCG TABLET 1 TAB PO DAILY VITAMIN SUPPORT (Reported) Diltiazem HCl (Cardizem Cd) 240 MG CAP.ER.24H 240 MG PO DAILY ATRIAL FIB Ferrous Sulfate 325 MG TABLET. 325 MG PO BID Iron supplement Furosemide (Lasix) 40 MG TABLET 1 TAB PO BID DIURETIC (Reported) Insulin Aspart (Novolog) (Unknown Strength) VIAL (Unknown Dose) SC SEE SLIDING SCALE DIABETES (Reported) Insulin Detemir (Levemir) 100 UNIT/ML VIAL 10 UNITS SC 0900 DM Insulin Detemir (Levemir) 100 UNIT/ML VIAL 8 UNITS SC AT BEDTIME DM Loperamide HCl (Loperamide) 2 MG CAPSULE 2 CAP PO BID PRN ANTI-DIARRHEAL ( Reported) Metoprolol Tartrate 25 MG TABLET 1 TAB PO BID AFIB Mometasone Furoate (Nasonex) 50 MCG SPRAY.PUMP 1 SPRAY NASB DAILY ALLERGIES ( Reported) Pantoprazole Sodium (Protonix) 40 MG TABLET.DR 1 TAB PO DAILY ACID REFLUX ( Reported) Potassium Chloride 20 MEQ TAB.ER.PRT 1 TAB PO DAILY SUPPLEMENT (Reported) Rivaroxaban (Xarelto) 20 MG TABLET 1 TAB PO DAILY BLOOD THINNER (Reported) with food Tiotropium [place] (Spiriva) 18 MCG CAP.W.DEV 1 CAP INH DAILY SHORTNESS OF BREATH (Reported) Triage Note: PT BIBA FROM HOME S/P SLIP FALL WHEN GETTING OOB. EMS REPORT PATIENT FELL APPROX 2 FEET AND HAS ONLY COMPLAINED OF BUTTOCK PAIN. ALSO REPORTED TO HAVE SKIN TEAR L HAND. DENIES HEAD INJURY. PER PATIENT WAS A LITTLE MORE ALTERED THAN BASELINE BUT EMS REPORT A/O x 3. PT WITH HX OF COPD AND IS O2 DEPENDENT ON 6L. Triage Nurses Notes Reviewed? yes Onset: Abrupt Duration: day(s): (2-3), changing over time, continues in ED, getting worse Timing: single episode today Severity: mild, moderate Method of Injury: fall Loss of Consciousness: no loss of consciousness No Modifying Factors: none HPI: 68-year-old male history of atrial fibrillation ON XARELTO, COPD, CHF, anemia abdominal aortic aneurysm presents for evaluation after a fall. His reports the patient had rolled out of bed landing on the ground. There was no head strike the fall was witnessed. Patient reports he has a skin tear to the left hand but otherwise offers no complaints. His reports that he has been very lethargic week and "out of it" for the past 3 days. Patient was recently admitted to the hospital a little less than a month ago with a pneumonia. reports he continues to cough. She reports normally patient is able to walk with a walker but he has been lying in bed for the past 3 days not eating or drinking very much. No fevers patient denies chest pain shortness of breath. He has had a dry cough. No lower extremity edema or hemoptysis. (Saul Carrillo) Past History Travel History Traveled to [place] past 21 day No Medical History Any Pertinent Medical History? see below for history Neurological: TIA 2010 EENT: cataracts Cardiovascular: AFIB, CHF, hypertension, hyperlipidemia Respiratory: COPD, 6L O2 DEPENDENT BIPAP AT NIGHT Gastrointestinal: GERD, ABD ANEURYSM (REPAIRED) Hepatic: NONE Renal: NONE Musculoskeletal: NONE Psychiatric: NONE Endocrine: NONE Blood Disorders: NONE Cancer(s): prostate cancer PRODUCTION ENGINE REPAIRER/Reproductive: NONE History of MRSA: Yes History of VRE: No History of CDIFF: No Tetanus Vaccine: 01/21/18 Surgical History Surgical History: cataract removal, PROSTATE SURGERY AAA REPAIR TONSILLECTOMY Endovascular AAA repair endovascular abdominal aortic aneurysm repair Psychosocial History Who do you live with Spouse Services at Home None What is your primary language Telugu Tobacco Use: Quit <30 days ago ETOH Use: denies use Illicit Drug Use: denies illicit drug use Family History Family History, If Any: MOTHER, ; Cause: COPD (chronic obstructive pulmonary disease). FATHER, ; Cause: Myocardial infarct. SISTER, ; Cause: Myocardial infarct. Hx Contributory? No (Saul Carrillo) Review of Systems Review of Systems Constitutional: Reports: malaise, weakness. Eyes: Reports: no symptoms. Ears, Nose, Throat, Mouth: Reports: no symptoms. Respiratory: Reports: see HPI, cough. Cardiovascular: Reports: no symptoms. Gastrointestinal/Abdominal: Reports: no symptoms. Genitourinary: Reports: no symptoms. Musculoskeletal: Reports: no symptoms. Skin: Reports: no symptoms. Neurological/Psychological: Reports: no symptoms. All Other Systems: Reviewed and Negative (Saul Carrillo) Physical Exam Physical Exam General Appearance: well developed/nourished, no apparent distress, alert, awake , lethargic Head: atraumatic, normal appearance, no signs of trauma Eyes: Bilateral: normal appearance, PERRL, EOMI. Ears, Nose, Throat, Mouth: decreased hearing, DRY MUCUS MEMBRANES Neck: normal inspection, supple, full range of motion, no midline tenderness Respiratory: chest non-tender, no respiratory distress, quiet respiration, decreased breath sounds Cardiovascular: regular rate/rhythm, normal peripheral pulses Peripheral Pulses: 2+ radial (R), 2+ radial (L) Gastrointestinal: soft, non-tender Back: normal inspection, normal range of motion, no vertebral tenderness Extremities: strength 4-5 bilateral upper and lower extremities there is a superficial skin tear to the left dorsum of the hand no other joint swelling or pain Neurologic/Psych: no motor/sensory deficits, awake, alert, oriented x 3 Skin: intact, normal color, warm/dry Core Measures ACS in differential dx? Yes CVA/TIA Diagnosis No Sepsis Present: No Sepsis Focused Exam Completed? No (Saul Carrillo) Progress Differential Diagnosis: C/T/L spine injury, ext injury, ICH, pelvis injury, spinal cord injury, pneumonia, malignancy, electrolyte abnormality, CHF, acute coronary syndrome Plan of Care: Orders Procedure Date/time Status Heart Healthy Diet 07/31 B Active US-RENAL/KIDNEY 07/31 800 Active PHOSPHORUS 07/31 600 Active MAGNESIUM 07/31 600 Active CBC WITHOUT DIFFERENTIAL 07/31 600 Active BASIC ELECTROLYTES PLUS BUN&CR 07/31 600 Active FingerStick- Glucose 07/30 2136 Active TRC EVALUATION (GEN) 07/30 2134 Active Patient Data 07/30 2133 Active ED Holding Orders 07/30 2119 Active Admit to inpatient 07/30 2119 Active Telemetry/Human Resources Training Manager 07/30 2119 Active Code Status 07/30 2119 Active Pathway - chart 07/30 2115 Active Vital Signs 07/30 2115 Active Intake & Output 07/30 2115 Active URINE LYTES, SPOT 07/30 2115 Active URINALYSIS 07/30 185 Complete TROPONIN LEVEL 07/30 1850 Complete PARTIAL THROMBOPLASTIN TIME 07/30 1850 Complete PROTHROMBIN TIME 07/30 185 Complete LACTIC ACID 07/30 1850 Complete COMPREHENSIVE METABOLIC PANEL 07/30 1850 Complete CBC WITHOUT DIFFERENTIAL 07/30 1850 Complete B-TYPE NATRIURETIC PEP (BNP) 07/30 1850 Complete EKG 07/30 1850 Active Current Medications Sig/Eve Start time Last Medication Dose Stop Time Status Admin Aspirin Buffered 81 MG DAILY 07/31 900 AC (Ecotrin) Atorvastatin Calcium 10 MG DAILY 07/31 900 AC (Lipitor) Diltiazem HCl 240 MG DAILY 07/31 900 AC (Cardizem CD) Insulin Aspart 0 TIDAC/HS 07/31 800 AC (NovoLOG) Metoprolol Tartrate 25 MG BID 07/30 2135 AC (Lopressor) Acetaminophen 650 MG Q6P PRN 07/30 2115 AC (Tylenol) Acetaminophen 1,000 MG Q6P PRN 07/30 2115 AC (Ofirmev) Oxycodone/ 1 TAB Q6P PRN 07/30 2115 AC Acetaminophen (Percocet) Laboratory Tests 07/30/182203: Urine Color YEL, Urine Clarity CLEAR, Urine pH 6.0, Ur Specific [place] 1.020, Urine Protein NEG, Urine Ketones NEG, Urine Nitrite NEG, Urine Bilirubin NEG, Urine Urobilinogen 0.2, Ur Leukocyte Esterase NEG, Ur Microscopic EXAM NOT REQUIRED, Urine Hemoglobin NEG, Urine Glucose NEG 07/30/18 2204: Ur Random Creatinine Pending, U Random Total Protein Pending, Ur Random Sodium Pending, Ur Random Potassium Pending, Fraction Sodium Excret Pending 07/30/182149: Lactic Acid Cancelled 07/30/181947: Anion Gap 12, Estimated GFR 20 L, BUN/Creatinine Ratio 37.7 H, Glucose 193 H, Lactic Acid 1.9, Calcium 9.5, Total Bilirubin 0.5, AST 12 L, ALT 21, Alkaline Phosphatase 98, Troponin I 0.08, [id number] Pept 04119 H, Total Protein 5.6 L, Albumin 3.4 L, Globulin 2.2, Albumin/Globulin Ratio 1.5, PT 10.6, INR 0.97, APTT 25, CBC w Diff NO MAN DIFF REQ, RBC 2.76 L, MCV 85.3, MCH 27.1, MCHC 31.8 L, RDW 19.0 H, MPV 8.2, Gran % 87.3 H, Lymphocytes % 7.3 L, Monocytes % 5.0, Eosinophils % 0.4, Basophils % 0, Absolute Granulocytes 8.3 H, Absolute Lymphocytes 0.7 L, Absolute Monocytes 0.5, Absolute Eosinophils 0, Absolute Basophils 0 Patient is evaluation after a fall. also reports significant weakness and lethargy. Patient is anticoagulated. There is no signs of trauma to the head or neck no bony point tenderness to suggest a fracture. EKG labs head CT pelvic and chest x-ray ordered. EKG appears grossly abnormal compared to previous. There are ST depressions in 1 aVL V5 and V6. Troponin is negative BNP is significantly elevated to 32,000 and BUN and creatinine are elevated to 117 [address] 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 Patient's repeat chest x- ray still shows right sided infiltrate that appears somewhat worse patient is still coughing need to consider malignancy. Patient will be admitted to telemetry for further evaluation and treatment case discussed with Dr. Pascal he agrees. Dr. Pascal and admitted the patient to telemetry Diagnostic Imaging: Viewed by Me: CT Scan. Discussed w/RAD: CT Scan. Radiology Impression: PATIENT: COURTNEY MURCIA PRESENT AGE: 68 PATIENT ACCOUNT NO: [id number] : 49 LOCATION: [facility] ORDERING PHYSICIAN: Saul ALARCON SERVICE DATE: 07/30/18 EXAM TYPE: CAT - CT CERV SPINE WO IV CONTRAST; CT HEAD WO IV CONTRAST EXAM: Noncontrast CT scan of the head and cervical spine. INDICATION: Fall with head strike. Altered mental status. COMPARISON: None TECHNIQUE: Axial slices were obtained from skull base to vertex and displayed. This was followed by helical, multislice, multidetector axial images from the occiput to the upper thorax. Coronal and sagittal reformats of the cervical spine in addition to coronal reformats of the head were obtained at the technologist workstation. Examination is suboptimal secondary to patient motion. The patient refused further imaging. DLP: 1430 mGy- cm FINDINGS: HEAD: There is no evidence of acute intracranial hemorrhage or territorial infarction. No abnormal mass effect or midline shift is appreciated. Wheat-white differentiation is well preserved. No extra-axial fluid collections. The ventricular system and cortical sulci are within normal limits. There are areas of low density in the periventricular and subcortical white matter, most consistent with sequelae of microvascular ischemic change. No acute fracture. Hyperostosis along the posterior inferior superior dural surface consistent with calcified old subdural hematomas. There is mild to moderate calcifications of the cavernous internal carotid arteries. The visualized paranasal sinuses and mastoid air cells are grossly well aerated. SPINE: No acute fractures or dislocations of the cervical spine are seen. There is minimal retrolisthesis of C3 on C4. Alignment is otherwise within normal limits. Vertebral body heights are well-maintained. Disc spaces are diffusely decreased, most prominent at C5/C6 and C6/C7. The atlantoaxial joint and craniovertebral articulations are normal without evidence of subluxation. There is no prevertebral soft tissue swelling IMPRESSION: 1. Motion artifact significantly degrades examination. 2. No gross intracranial hemorrhage. Age-related microvascular ischemic changes. 3. Degenerative changes of the cervical spine without gross fracture. DICTATED BY: Efrem Wilson MD DATE/TIME DICTATED:1940 BUILDING CUSTODIAN:LINDY DATE/TIME TRANSCRIBED:07/30/181940 CONFIDENTIAL, DO NOT COPY WITHOUT APPROPRIATE AUTHORIZATION. <Electronically signed in Other Vendor System> SIGNED BY: Efrem Wilson MD 07/30/181956 Initial ED EKG: a fibrillation rate 104, ventricular premature complexes LVH, ST depressions in V5 and V6 (Saul Carrillo) Departure Departure Disposition: STILL A PATIENT Condition: Stable Clinical Impression Primary Impression: [place] (acute kidney injury) Secondary Impressions: Acute electrocardiogram changes, Anginal equivalent Referrals: Prabhakar Pearce MD (PCP/Family) Departure Forms: Customer Survey General Discharge Information Admission Note Spoke With: Matt Garcia MD Documentation of Exam: Documentation of any treatments & extenuating circumstances including Concerns Regarding Discharge (functional status, medication knowledge or non-compliance, living conditions, etc.) that warrant an admission rather than observation: [ Serial labs, serial EKGs, telemetry, echocardiogram, cardiology consult, gentle IV hydration, physical therapy, case management, renal ultrasound] (Saul Carrillo) PA/FISHERIES ENFORCEMENT OFFICER Co-Sign Statement Statement: ED Attending supervision documentation- x I saw and evaluated the patient. I have also reviewed all the pertinent lab results and diagnostic results. I agree with the findings and the plan of care as documented in the PA's/FISHERIES ENFORCEMENT OFFICER's documentation. Patient alert and oriented 3, pale with a hgb of 7.5 (at patients baseline), ECG changes from prior, murmur, and CXR with worsening consolidation normal white blood cell count. Patient to be admitted to telemetry. Cognition patient is hemodynamically stable no acute cardia pulmonary distress. [] I have reviewed the ED Record and agree with the PA's/FISHERIES ENFORCEMENT OFFICER's documentation. [] Additions or exceptions (if any) to the PAs/FISHERIES ENFORCEMENT OFFICER's note and plan are summarized below: [] (Gwyn CR,[place])
[2018-07-30 20:12] LABS: PT 10.6 SEC (9.4-12.5); PTT 25 SEC (25-37)
--- NOTE | 2018-07-30 21:14 | History & Physical ---
John Escobar 07/30/182112: General Information and HPI MD Statement: I have seen and personally examined COURTNEY VIEIRA and documented this H&P. Source of Information: family, old records Exam Limitations: unable to give history, not alert/orientated, confusion History of Present Illness: Patient is a 68-year-old male with a past medical history significant for A. fib on Xarelto, HFrEF (35-40%), hypertension, hyperlipidemia, previous AAA repair, moderate to severe pulmonary hypertension, COPD on 6 L and nocturnal BiPAP, chronic anemia, chronic kidney disease, GERD, prostate cancer, previous TIA ( 2010). He presents to [place] [facility] for evaluation of fall. To note patient had a recent admission to [place] June 17 - July 01, 2018 for pneumonia. Patient is lethargic, confused, and not oriented so most of the history is obtained from the at bedside. She reports that she saw the patient roll and fall out of bed this morning landing on his side but did not strike his head. It seems that the only trauma he sustained from the fall was skin tear to thew left hand. His reports that he has been progressively more confused and lethargic for the past 3 days. She also reports that patient has been spending more time lying in bed rather than walking around using his walker like he normally does. She attributes this to the fact that he has had very poor PO intake of both foods and fluids for the past 2 weeks, for some unclear reason. denies patient complaining of any chest pain, fevers, flulike symptoms, changes in vision. Allergies/Medications Allergies: Coded Allergies: No Known Allergies (04/10/18) Home Med list Albuterol Sulfate 2.5 MG/3 ML (0.083 %) VIAL.NEB 1 Vial INH/ABILIO Q6H PRN SHORTNESS OF BREATH (Reported) Albuterol Sulfate (Proair Hfa) 90 MCG HFA.AER.AD 1 PUF INH Q4H PRN SHORTNESS OF BREATH (Reported) Aspirin (Ecotrin*) 81 MG TABLET.DR 1 TAB PO DAILY HEART/BLOOD (Reported) Atorvastatin Calcium 10 MG TABLET 1 TAB PO DAILY CHOLESTEROL (Reported) Budesonide/Formoterol Fumarate (Symbicort 160-4.5 Mcg Inhaler) 160 MCG-4.5 MCG/ ACTUATION HFA.AER.AD 2 PUF INH BID SHORTNESS OF BREATH (Reported) Cyanocobalamin (Vitamin B-12) (B-12) 1,000 MCG TABLET 1 TAB PO DAILY VITAMIN SUPPORT (Reported) Diltiazem HCl (Cardizem Cd) 240 MG CAP.ER.24H 240 MG PO DAILY ATRIAL FIB Ferrous Sulfate 325 MG TABLET.DR 325 MG PO BID Iron supplement Furosemide (Lasix) 40 MG TABLET 1 TAB PO BID DIURETIC (Reported) Insulin Aspart (Novolog) (Unknown Strength) VIAL (Unknown Dose) SC SEE SLIDING SCALE DIABETES (Reported) Insulin Detemir (Levemir) 100 UNIT/ML VIAL 10 UNITS SC 0900 DM Insulin Detemir (Levemir) 100 UNIT/ML VIAL 8 UNITS SC AT BEDTIME DM Loperamide HCl (Loperamide) 2 MG CAPSULE 2 CAP PO BID PRN ANTI-DIARRHEAL ( Reported) Metoprolol Tartrate 25 MG TABLET 1 TAB PO BID AFIB Mometasone Furoate (Nasonex) 50 MCG SPRAY.PUMP 1 SPRAY NASB DAILY ALLERGIES ( Reported) Pantoprazole Sodium (Protonix) 40 MG TABLET.DR 1 TAB PO DAILY ACID REFLUX ( Reported) Potassium Chloride 20 MEQ TAB.ER.PRT 1 TAB PO DAILY SUPPLEMENT (Reported) Rivaroxaban (Xarelto) 20 MG TABLET 1 TAB PO DAILY BLOOD THINNER (Reported) with food Tiotropium [place] (Spiriva) 18 MCG CAP.W.DEV 1 CAP INH DAILY SHORTNESS OF BREATH (Reported) Past History Travel History Traveled to [place] past 21 day No Medical History Neurological: TIA 2010 EENT: cataracts Cardiovascular: AFIB, CHF, hypertension, hyperlipidemia Respiratory: COPD, 6L O2 DEPENDENT BIPAP AT NIGHT Gastrointestinal: GERD, ABD ANEURYSM (REPAIRED) Hepatic: NONE Renal: NONE Musculoskeletal: NONE Psychiatric: NONE Endocrine: NONE Blood Disorders: NONE Cancer(s): prostate cancer QUALITY LEAD/Reproductive: NONE History of MRSA: Yes History of VRE: No History of CDIFF: No Tetanus Vaccine: 01/21/18 Surgical History Surgical History: cataract removal, PROSTATE SURGERY AAA REPAIR TONSILLECTOMY Endovascular AAA repair endovascular abdominal aortic aneurysm repair Past Family/Social History Family History Relations & Conditions if any MOTHER, ; Cause: COPD (chronic obstructive pulmonary disease). FATHER, ; Cause: Myocardial infarct. SISTER, ; Cause: Myocardial infarct. Psychosocial History Who Do You Live With? spouse Services at Home: None Primary Language: Romansh ETOH Use: denies use Illicit Drug Use: denies illicit drug use Living Will? unknown Power of Info Analyst/HCP? unknown Functional Ability ADLs Independent: dressing, eating, toileting, bathing. Ambulation: independent IADLs Independent: shopping, housework, finances, food prep, telephone, transportation , medication admin. Review of Systems Review of Systems Constitutional: Reports: see HPI. Exam & Diagnostic Data Last 24 Hrs of Vital Signs/I&O Vital Signs Date Time Temp Pulse Resp B/P B/P Pulse O2 O2 Flow FiO2 Mean Ox Delivery Rate 07/31 0140 104 97 07/30 230 91 Nasal 6.0L Cannula 07/30 230 96.6 112 20 110/62 91 Nasal 6.0L Cannula 07/30 2228 108/83 07/30 2205 97.4 108 18 10883 96 Nasal 6.0L Cannula 07/30 1936 94 Nasal 6.0L Cannula 07/30 1837 98.3 109 18 128/86 99 Nasal 6.0L Cannula Intake & Output 07/31 0800 07/31 0000 07/30 1600 Intake Total Output Total 180 Balance -180 Output, Urine 180 Patient 155 lb Weight Weight Bed scale Measurement Method Physical Exam General Appearance No Acute Distress, Confused, lethargic Skin Temp/Moisture Exam: Warm/Dry HEENT Atraumatic, EOMI Neck Supple Lymphatic Axillary nl, Cervical nl Cardiovascular Normal S1, Normal S2 Lungs decreased breath sounds, crackles Abdomen Normal Bowel Sounds, Soft, No Tenderness Extremities No Cyanosis Last 24 Hrs of Labs/Sridhar: Laboratory Tests 07/31/18 0110: pH 7.29 *L, pCO2 73 *H, pO2 63 L, HCO3 35 H, ABG O2 Sat (Measured) 92.0 L, P- 50 (Temp Corrected) Y, Carboxyhemoglobin 1.2 L, O2 Concentration % 6 LPM, Temperature 96.6 L, O2 Delivery Method N/C, Phlebotomy Draw Site RIGHT BRACHIAL 07/31/18 0050: Troponin I Pending 07/30/182203: Urine Color YEL, Urine Clarity CLEAR, Urine pH 6.0, Ur Specific [place] 1.020, Urine Protein NEG, Urine Ketones NEG, Urine Nitrite NEG, Urine Bilirubin NEG, Urine Urobilinogen 0.2, Ur Leukocyte Esterase NEG, Ur Microscopic EXAM NOT REQUIRED, Urine Hemoglobin NEG, Urine Glucose NEG 07/30/182203: Ur Random Creatinine 43.4, U Random Total Protein 20 H, Ur Random Sodium 7 L, Ur Random Potassium 39.7, Fraction Sodium Excret 0.4 07/30/182149: Lactic Acid Cancelled 07/30/181947: Anion Gap 12, Estimated GFR 20 L, BUN/Creatinine Ratio 37.7 H, Glucose 193 H, Lactic Acid 1.9, Calcium 9.5, Total Bilirubin 0.5, AST 12 L, ALT 21, Alkaline Phosphatase 98, Troponin I 0.08, Kjh-[id number] Pept 78117 H, Total Protein 5.6 L, Albumin 3.4 L, Globulin 2.2, Albumin/Globulin Ratio 1.5, TSH < 0.015 L , PT 10.6, INR 0.97, APTT 25, CBC w Diff NO MAN DIFF REQ, RBC 2.76 L, MCV 85.3, MCH 27.1, MCHC 31.8 L, RDW 19.0 H, MPV 8.2, Gran % 87.3 H, Lymphocytes % 7.3 L, Monocytes % 5.0, Eosinophils % 0.4, Basophils % 0, Absolute Granulocytes 8.3 H, Absolute Lymphocytes 0.7 L, Absolute Monocytes 0.5, Absolute Eosinophils 0, Absolute Basophils 0 Microbiology 07/31 0050 BLOOD: Blood Culture - RECD 07/31 003 BLOOD: Blood Culture - RECD Assessment/Plan Assessment: Patient is a 68-year-old male with a past medical history significant for A. fib on Xarelto, HFrEF (35-40%), hypertension, hyperlipidemia, previous AAA repair, moderate to severe pulmonary hypertension, COPD on 6 L and nocturnal BiPAP, chronic anemia, chronic kidney disease, GERD, prostate cancer, previous TIA ( 2010) presenting to [facility] for evaluation of fall, and altered mental status. Abnormal Data: H/H 7.5/23.5 (baseline 7.04/16) Na 133 BUN/creatinine 117/3.1 (baseline 43/1.7), GFR 20 Glucose 193 Troponin 0.08, ProBNP 32,400 Albumin 3.4 TSH < 0.015 pH 7.29, pCO2 73, PO2 63, HCO3 35 Imaging: EKG shows mild segments of ST depression in lateral leads Pelvis XRAY/CERVICAL SPINE CTA 07/30/11 Cardiomegaly. Diffuse prominent interstitial markings in both lungs likely chronic changes. Interstitial pneumonitis is not excluded. Similar findings were seen on the previous study 06/25/2018. However patchy opacity right midlung is slightly more prominent than the previous study. Focal infiltrate is not excluded. CT Head/CERVICAL SPINE CTA 07/30/11 1. Motion artifact significantly degrades examination. 2. No gross intracranial hemorrhage. Age-related microvascular ischemic changes. 3. Degenerative changes of the cervical spine without gross fracture. Patient's increasing lethargy and altered mental status can be most likely attributed to increased BUN/Cr in the setting of dehydration and acute kidney injury, secondary to poor fluid intake, as labs show a prerenal picture. Patient 's H&H is stable, therefore likely not a bleed. Blood gas shows hypoxemia with CO2 retention which may also be causing patient's confusion/AMS/lethargy. Breath sounds are congested with crackles and overall they are decreased likely, poor air flow, may be suggesting an acute infectious lung process as evidenced by the new more prominent patchy opacity in the right midlung seen on x-ray. This could exacerbate COPD. However, there is no white count, and patient is afebrile. #Altered mental status #Mechanical Fall #HFrEF (EF 35-45%) #Atrial fibrillation (on Xarelto) #MADISON on CKD stage III #Chronic anemia #Aspiration pneumonia #COPD on 6 L #Pulmonary hypertension #Chronic hypoxic respiratory failure #Hyperlipidemia #Diabetes mellitus #GERD -Admit to telemetry -Continuous cardiac monitoring -Trend EKG and troponins -Strict ins and outs, daily weights -Cardiology consult in the a.m. -Keep n.p.o. until swallow eval -Fall precautions -Hold Lasix -Proton pump inhibitor -TRC evaluation and nebulizers -We will attempt to wean down oxygen -BiPAP at night -Renal ultrasound -Trend BUN and creatinine -Check TSH -PT eval -Sputum Cx -Blood Cx -UCx, UA -BEP, CBC NPO DVT ppx Full Code As Ranked By This Provider Problem List: 1. Altered mental status 2. MADISON (acute kidney injury) Core Measures/Misc (08/06) Acute Coronary Syndrome ACS Diagnosis: No Congestive Heart Failure Congestive Heart Failure Diagnosis No Cerebrovascular Accident CVA/TIA Diagnosis: No VTE (View Protocol) VTE Risk Factors Age>40 No Mechanical VTE Prophylaxis d/t N/A MechProphylax Ordered No VTE Pharm Prophylaxis d/t NA PharmProphylax ordered Sepsis (View protocol) Sepsis Present: No If YES complete Sepsis Event Note If YES complete Sepsis Event Note Patsy Leonard 07/30/182122: Core Measures/Misc (08/06) Sepsis (View protocol) If YES complete Sepsis Event Note If YES complete Sepsis Event Note Resident Review Statement Resident Statement: examined this patient, discussed with regulatory internship, agreed with regulatory internship Other Findings: Mr. Vieira is a 68-year-old male with past medical history of COPD on 4 L of home oxygen, nocturnal BiPAP (followed by Dr. So), atrial fibrillation on Xarelto (followed by Dr. Walton), diabetes mellitus, hypertension, hyperlipidemia, abdominal aortic aneurysm status post repair, heart failure with reduced ejection fraction of 30-35%, GERD, prostate cancer, chronic kidney disease came in with chief complaint of decreased appetite, decreased eating and drinking since 2 weeks prior to admission this presentation along with worsening mental status 2-3 days prior to presentation and a mechanical fall on the morning of presentation. Patient was brought in by ambulance from home after slipping from his 2 feet bed and having a fall while getting out of bed to chair, he complained of some buttock pain after the fall and had a skin tear on the left hand. He denied any head trauma, any loss of consciousness, any lightheadedness or dizziness, bowel or bladder incontinence. He was not alert and oriented, confused on presentation therefore most of the history was obtained from his . His endorse a history that he has been increasing eating less and less, therefore she called the primary care to prescribe him an appetite stimulant, however for last 2-3 days he has been confused, not eating and drinking and therefore he was brought in. His vitals on presentation were temperature of 98.3, pulse of 109, respiration of 18, blood pressure 128/86, he was saturating 98% on 6 L of nasal cannula. Physical exam alert but not oriented to time place and person, very dry, overall dry skin, dry cracked lips ,confused, just keeps saying yes to every question you answer. CVS S1-S2 present. RS bilateral mild crackles present, decreased air entry. Per abdomen soft, nontender, bowel sounds present. Left hand present on the dorsal surface, bandage, no active bleeding. Bilateral sentinel bruises present on both hands. Redness perhaps stage I coccygeal ulcer noted. He had a white count of 9.6, H/H of 7.5/23.5 (baseline hemoglobin 7.528), platelet of 189. Sodium of 133, potassium of 4.7, BUN/creatinine 117/3.1 (baseline BUN/creatinine 43/1.7), glucose of 193. Liver function test within normal limits. Initial troponin was found to be 0.08. ProBNP elevated at 32,400. CT cervical spine as well as CT head did not show any intracranial hemorrhage, age-related microvascular ischemic changes and degenerative changes of the cervical spine no acute fractures Chest x-ray showed diffuse prominent interstitial markings in both lungs likely chronic changes, 1 of the differentials could be interstitial pneumonitis, findings similar to previous study 6 to June 2080, there is a patchy opacity in the right mid lung, there is a possibility of focal infiltrate. Pelvis x-ray did not show any acute fractures. We will admit the patient to cardiac telemetry floor due to history of atrial fibrillation with tachycardia status post fall and some mild ST depression noted on the EKG which were not present on previous EKG in V3 V4 His last echo was 06/25/2018 showed mild left ventricular dilatation, moderate concentric LVH, ejection fraction of 35-40%. His last admission was 05/28/2018 to 07/01/2018, variant he was treated for acute COPD exacerbation along with CHF, pneumonia and acute on chronic anemia along with acute on chronic renal failure. He was advised to stop taking metformin at that admission. He did have an endoscopy along with colonoscopy on this prior to admission in April 2018 which showed possible distal esophageal rices, prepyloric enlarged folds along with 7 polyps which the highest one being 30 cm on colonoscopy, all his polyps were negative for any invasive carcinoma. We will admit the patient for treatment of following problems. 1. Mechanical fall 2. Decreased appetite with decreased water intake, failure to thrive. 3. Altered mental status. 4. Acute hypercarbic respiratory failure. 5. Acute on chronic kidney disease 6 chronic Anemia ( Iron def + normocyti 2/2 to CKD) 7 history of atrial fibrillation on Xarelto, cardizem ad metoprolol 8. History of hyperlipidemia. 9. History of diabetes mellitus (taken off metformin, now on insulin) 10. History of GERD. 11 history of COPD on 4 L of home oxygen. Plan * We will admit the patient to telemetry floor for continuous cardiac monitoring. * Continue to monitor vitals, continue to monitor intake and output, daily weight. * Current EKG and troponin. * Cardiology consult with Dr. Walton in the morning. * There is a suspicion that he might have aspirated due to altered mental status , we will keep him n.p.o. for now, obtain a swallow evaluation in the morning. * Continue to monitor fingersticks every 6 hourly, n.p.o. insulin sliding scale. * Dose the long-acting insulin at half the home dosage. * The acute on chronic kidney failure seems to be secondary to dehydration, however due to his low EF of 35-40% with relatively elevated proBNP compared to baseline and mild crackles, currently we will gently hydrate him after the initial bolus received in the emergency department. * D5 normal saline while n.p.o. for hydration. * Continue to follow BUN and creatinine. * Renal ultrasound to rule out obstruction in a.m. * We will also check TSH. * We will continue Xarelto, metoprolol and Cardizem for now. * Continue statin, aspirin. * Fall precautions, aspiration precautions. * We will obtain an ABG due to his altered mental status, the PCO2 was found to be elevated on ABG, will place him on BiPAP. * TRC evaluation. * Pt evalve once improved clinically, seems to be very weak overall.check cbc , bep in am. * Ct PPI * we will hold lasix for now. * His did talk to Dr Paez in the past for golas of care discussion, however previously they were not prepared to make any decision. FC DVT Px NPO for now PP Jose CR,Matt 07/30/18 2236: Core Measures/Misc (08/06) Sepsis (View protocol) If YES complete Sepsis Event Note If YES complete Sepsis Event Note Attending MD Review Statement Attending Statement Attending MD Statement: examined this patient, discuss w/resident/PA/VIOLIN TUTOR, agreed w/resident/PA/VIOLIN TUTOR, discussed with family, reviewed EMR data (avail), discussed with nursing, amended to note Attending Assessment/Plan: Patient is a 67-year-old gentleman with multiple comorbidities as documented above. Brought in for evaluation by the after he slid out of his bed today. Apparently according to the has been getting increasingly lethargic over the past several days. She reports that for the past 2 days he has been in bed and not ambulating. His appetite has significantly diminished and his oral intake is minimal to 0. She also reports increasing confusion over the past few days as well. Prior to this she reports that he was able to ambulate around with the use of a walker. He arrived emergency room hemodynamically stable. Workup in the emergency room revealed evidence of acute kidney injury. He was started on IV fluids and referred to the medical service for further evaluation and management. When I evaluation we found the patient extremely lethargic. He will respond to questioning however does not provide appropriate answers at all times. is present at the bedside and states that this is not his baseline. Patient is well-known to the medical team and is usually more alert and engaging. He has also been congested breath sounds. No jugular venous distention. Dry oral mucosa. Heart sounds are irregular. He has diffuse rhonchi bilaterally. Abdomen is chronically full, soft and nontender with normal bowel sounds. No peripheral edema. Laboratory data shows his chronic anemia. His BNP is elevated however it is chronically elevated. BUN is significantly elevated at 117 and creatinine is elevated at 3.1. Baseline creatinine is 1.5-1.7. Problems: 1. Mechanical fall; likely due to deconditioning. 2. Acute on chronic kidney disease (Stage III) 3. Aspiration pneumonitis 4. Chronic anemia.; Attributed to chronic kidney disease 5. Chronic hypoxic respiratory failure; secondary to advanced COPD and severe pulmonary hypertension 6. Atrial fibrillation on anticoagulation with Xarelto. 7. Chronic systolic heart failure. 8. Abnormal CXR 9. Abnormal EKG Plan: -Admit to the inpatient General medical service. -Keep n.p.o. Hydrate with D5 half-normal saline at 50 cc an hour. -Swallow evaluation. -He was treated for a pneumonia last month nad has persistent cxr finding and what appears to be a new right midlung patchy opacity. He is afebrile with no leucocytosis. Recommend evaluation by the pulmonary service. Hold off antibiotic therapy for now. May benefit fro CT scan to evaluate for underlying malignancy. -Obtain ABG. -Hold diuretics for now. Gentle IV hydration with caution given his history of chronic systolic heart failure. Obtain renal sonogram to rule out obstructive uropathy. -Placed on n.p.o. sliding scale coverage. Reduce dose of his long-acting insulin by half. -Nonspecific EKg changes noted. Monitor on tele. Trend cardiac enzymes. Obtain cardiology consult. -Continue his Cardizem and metoprolol for rate control. Continue his Xarelto. -Continue his bronchodilator regimen. -Check his TSH level. -Management of his severe pulmonary hypertension as determined by his pulmonology service. -His acute kidney injury and aspiration pneumonitis will clearly contribute further to his deconditioning however it is unclear what triggered his initial functional decline. It may be due to progression of disease. It is noted that he had palliative consultation in the past. Documentation states that patient wanted to continue aggressive treatment at that time. This may need to be reevaluated depending on his clinical course this time around. -ABG done following admission reveals acute on chronic CO2 retention. Patient placed on BiPaP therapy. placed on BiPaP therapy.
--- NOTE | 2018-07-30 22:35 | Admission Certification ---
Admission Certification Certification Statement - As attending physician, I certify that at the time of - admission, based on clinical presentation, severity of - symptoms, need for further diagnostic testing and - therapeutic interventions, and risk of adverse outcomes - without in-hospital treatment, in my clinical assessment, - this patient requires an acute hospital stay for a minimum - of two nights or longer. I have also considered psychsocial - factors such as support system, advanced age, financial - issues, cognitive issues, and failed out-patient treatments, - past re-admission history, safety of patient, and lack of - compliance as applicable. Specific rationale supporting this admission is: Patient requires hospitalization for management of acute kidney injury
[2018-07-30 23:05] VITALS: BP 110/62
[2018-07-31 07:41] LABS: ABSOLUTE BASOPHIL COUNT 0 /CUMM (0.0-0.2); ABSOLUTE EOSINOPHIL COUNT 0.1 /CUMM (0.0-0.7); ABSOLUTE GRANULOCYTE CT 10.2 /CUMM (1.4-6.5); ABSOLUTE MONOCYTE COUNT 0.6 /CUMM (0.10-0.60); BASOPHIL % 0 % (0.0-2.0); EOSINOPHIL % 0.5 % (0-5); HEMATOCRIT 23.6 % (42-52); MEAN CORPUSCULAR HGB 28.7 PG (27.0-31.0); MEAN CORPUSCULAR HGB CONC 31.8 G/DL (33.0-37.0); MEAN PLATELET VOLUME 8.9 FL (7.4-10.4); PLATELET COUNT 188 /CUMM (130-400); RBC DISTRIBUTION WIDTH 19.1 % (11.5-14.5); RED BLOOD CELL CT 2.62 /CUMM (4.70-6.10); WHITE BLOOD CELL COUNT 11.8 /CUMM (4.8-10.8)
--- NOTE | 2018-07-31 07:48 | PN- Housestaff ---
Subjective Follow-up For: Altered mental status MADISON Respiratory acidosis with BiPaP support Subjective: Afebrile overnight. Patient is seen and examined this morning. Patient is non- responsive today and very lethargic unable to be aroused with sternal rub. Patient is on BiPaP support currently. Patient will be transferred to ICU for further management of care and respiratory status. Review of Systems Constitutional: Reports: see HPI. Objective Last 24 Hrs of Vital Signs/I&O Vital Signs Date Time Temp Pulse Resp B/P B/P Pulse O2 O2 Flow FiO2 Mean Ox Delivery Rate 07/31 0610 99 92 07/31 0556 112 73 07/31 0349 102 97 07/31 0140 104 97 07/31 0000 97 BIPAP 07/30 2305 91 Nasal 6.0L Cannula 07/30 2305 96.6 112 20 110/62 91 Nasal 6.0L Cannula 07/30 2228 108/83 07/30 2205 97.4 108 18 108/83 96 Nasal 6.0L Cannula 07/30 1936 94 Nasal 6.0L Cannula 07/30 1837 98.3 109 18 128/86 99 Nasal 6.0L Cannula Intake & Output 07/31 1600 07/31 0800 07/31 0000 Intake Total 400 Output Total 180 Balance 400 -180 Intake, IV 400 Output, Urine 180 Patient 155 lb Weight Weight Bed scale Measurement Method Physical Exam General Appearance: lethargic, minimally responsive Skin: bruising left arm Skin Temp/Moisture Exam: Warm/Dry HEENT: Atraumatic Neck: Supple Cardiovascular: Normal S1, Normal S2 Lungs: On BiPaP Abdomen: Distended Neurological: minimally responsive Assessment/Plan Assessment: Pelvis XRAY/CERVICAL SPINE CTA 07/30/11 Cardiomegaly. Diffuse prominent interstitial markings in both lungs likely chronic changes. Interstitial pneumonitis is not excluded. Similar findings were seen on the previous study 06/25/2018. However patchy opacity right midlung is slightly more prominent than the previous study. Focal infiltrate is not excluded. CT Head/CERVICAL SPINE CTA 07/30/11 1. Motion artifact significantly degrades examination. 2. No gross intracranial hemorrhage. Age-related microvascular ischemic changes. 3. Degenerative changes of the cervical spine without gross fracture. 68-year-old male with a past medical history significant for A. fib on Xarelto, HFrEF (35-40%), hypertension, hyperlipidemia, previous AAA repair, moderate to severe pulmonary hypertension, COPD on 6 L and nocturnal BiPAP, chronic anemia, chronic kidney disease, GERD, prostate cancer, previous TIA (2010) presenting to [place] for evaluation of fall, and altered mental status. Patient's increasing lethargy and altered mental status can be most likely attributed to increased BUN/Cr in the setting of dehydration and acute kidney injury, secondary to poor fluid intake, as labs show a prerenal picture. Patient 's H&H is stable, therefore likely not a bleed. Blood gas shows hypoxemia with CO2 retention which may also be causing patient's confusion/AMS/lethargy. Breath sounds are congested with crackles and overall they are decreased likely, poor air flow, may be suggesting an acute infectious lung process as evidenced by the new more prominent patchy opacity in the right midlung seen on x-ray. This could exacerbate COPD. However, there is no white count, and patient is afebrile. Problem list: #Altered mental status #Mechanical Fall #HFrEF (EF 35-45%) #Atrial fibrillation (on Xarelto) #MADISON on CKD stage III #Chronic anemia #Aspiration pneumonia #COPD on 6 L #Pulmonary hypertension #Chronic hypoxic respiratory failure #Hyperlipidemia #Diabetes mellitus #GERD -Admitted to telemetry for managment of vitals; patient subsequently transferred to ICU as patient became further lethargic, and his ABG was not improving on follow-up while on BiPaP -Continuous cardiac monitoring -Trend EKG and troponins -Strict ins and outs, daily weights -Cardiology consult in the a.m. -Keep n.p.o. until swallow eval -Fall precautions -Hold Lasix -Proton pump inhibitor -TRC evaluation and nebulizers -We will attempt to wean down oxygen -BiPAP at night -Renal ultrasound -Trend BUN and creatinine -Check TSH -PT eval -Sputum Cx -Blood Cx -UCx, UA -BEP, CBC NPO DVT ppx Full Code Problem List: 1. Altered mental status 2. MADISON (acute kidney injury) Pain Ratin Pain Location: na Pain Goal: Remain pain free Pain Plan: prn meds Tomorrow's Labs & Rationales: routine
[2018-07-31 08:08] LABS: GRANULOCYTE % 86.5 % (42.2-75.2)
--- NOTE | 2018-07-31 08:33 | Cons- CRCU ---
Tejal CR,Saul 07/31/18 0833: General Information and HPI Consulting Request Date of Consult: 07/31/18 Requested By: Dr. Garcia Reason for Consult: Respiratory distress History of Present Illness: Mr. Vieira is a 68-year-old male with past medical history of COPD on 4-5 L oxygen and nocturnal BiPAP followed by Dr. So, atrial fibrillation and rivaroxaban followed by Dr. Walton, diabetes mellitus, hypertension, hyperlipidemia, AAA status post repair, HFrEF (EF 30-35%), GERD, prostate cancer , and chronic kidney disease who presented last night with altered mental status and recent mechanical fall. The patient was initially admitted to telemetry for altered mental status and EKG changes (ST depressions in V5/V6). This morning, patient was noted to have increased respiratory distress and respiratory acidosis requiring BiPAP. He was transferred to the ICU for further care. He is now in moderate respiratory distress and unable to answer all questions but denies any pain. Allergies/Medications Allergies: Coded Allergies: No Known Allergies (04/10/18) Home Med List: Albuterol Sulfate 2.5 MG/3 ML (0.083 %) VIAL.NEB 1 Vial INH/ABILIO Q6H PRN SHORTNESS OF BREATH (Reported) Albuterol Sulfate (Proair Hfa) 90 MCG HFA.AER.AD 1 PUF INH Q4H PRN SHORTNESS OF BREATH (Reported) Aspirin (Ecotrin*) 81 MG TABLET.DR 1 TAB PO DAILY HEART/BLOOD (Reported) Atorvastatin Calcium 10 MG TABLET 1 TAB PO DAILY CHOLESTEROL (Reported) Budesonide/Formoterol Fumarate (Symbicort 160-4.5 Mcg Inhaler) 160 MCG-4.5 MCG/ ACTUATION HFA.AER.AD 2 PUF INH BID SHORTNESS OF BREATH (Reported) Cyanocobalamin (Vitamin B-12) (B-12) 1,000 MCG TABLET 1 TAB PO DAILY VITAMIN SUPPORT (Reported) Diltiazem HCl (Cardizem Cd) 240 MG CAP.ER.24H 240 MG PO DAILY ATRIAL FIB Ferrous Sulfate 325 MG TABLET. 325 MG PO BID Iron supplement Furosemide (Lasix) 40 MG TABLET 1 TAB PO BID DIURETIC (Reported) Insulin Aspart (Novolog) (Unknown Strength) VIAL (Unknown Dose) SC SEE SLIDING SCALE DIABETES (Reported) Insulin Detemir (Levemir) 100 UNIT/ML VIAL 10 UNITS SC 0900 DM Insulin Detemir (Levemir) 100 UNIT/ML VIAL 8 UNITS SC AT BEDTIME DM Loperamide HCl (Loperamide) 2 MG CAPSULE 2 CAP PO BID PRN ANTI-DIARRHEAL ( Reported) Metoprolol Tartrate 25 MG TABLET 1 TAB PO BID AFIB Mometasone Furoate (Nasonex) 50 MCG SPRAY.PUMP 1 SPRAY NASB DAILY ALLERGIES ( Reported) Pantoprazole Sodium (Protonix) 40 MG TABLET.DR 1 TAB PO DAILY ACID REFLUX ( Reported) Potassium Chloride 20 MEQ TAB.ER.PRT 1 TAB PO DAILY SUPPLEMENT (Reported) Rivaroxaban (Xarelto) 20 MG TABLET 1 TAB PO DAILY BLOOD THINNER (Reported) with food Tiotropium [place] (Spiriva) 18 MCG CAP.W.DEV 1 CAP INH DAILY SHORTNESS OF BREATH (Reported) Review of Systems Review of Systems Constitutional: Reports: no symptoms. EENTM: Reports: no symptoms. Cardiovascular: Reports: no symptoms. Respiratory: Reports: see HPI. GI: Reports: no symptoms. Genitourinary: Reports: no symptoms. Musculoskeletal: Reports: no symptoms. Skin: Reports: no symptoms. Neurological/Psychological: Reports: no symptoms. Hematologic/Endocrine: Reports: no symptoms. Immunologic/Allergic: Reports: no symptoms. 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 FATHER, ; Cause: Myocardial infarct. SISTER, ; Cause: Myocardial infarct. Psychosocial History Where Do You Live? Home Who Do You Live With? spouse Services at Home: None Primary Language: Georgian Smoking Status: Never Smoked ETOH Use: denies use Illicit Drug Use: denies illicit drug use Living Will? unknown Power of Senior Commercial Loan Officer/HCP? unknown Functional Ability ADLs Independent: dressing, eating, toileting, bathing. Ambulation: independent IADLs Independent: shopping, housework, finances, food prep, telephone, transportation , medication admin. Exam & Diagnostic Data Last 24 Hrs of Vital Signs/I&O Vital Signs Date Time Temp Pulse Resp B/P B/P Pulse O2 O2 Flow FiO2 Mean Ox Delivery Rate 07/31 907 BIPAP 50% 07/31 0850 59 95 07/31 0610 99 92 07/31 0556 112 73 07/31 0349 102 97 07/31 0140 104 97 07/31 0000 97 BIPAP 07/30 2305 91 Nasal 6.0L Cannula 07/30 2305 96.6 112 20 110/62 91 Nasal 6.0L Cannula 07/30 2228 108/83 07/30 2205 97.4 108 18 10883 96 Nasal 6.0L Cannula 07/30 1936 94 Nasal 6.0L Cannula 07/30 1837 98.3 109 18 128/86 99 Nasal 6.0L Cannula Intake & Output 07/31 1600 07/31 0800 07/31 0000 Intake Total 400 Output Total 180 Balance 400 -180 Intake, IV 400 Output, Urine 180 Patient 70.364 kg Weight Weight Bed scale Measurement Method Physical Exam General Appearance: moderate distress Respiratory: decreased breath sounds, respiratory distress Cardiovascular: regular rate/rhythm (bruising to chest), irregularly irregular Gastrointestinal: normal bowel sounds, soft, non-tender, hernia Extremities: pedal edema Last 48 Hrs of Labs/Sridhar: Laboratory Tests 07/31/18 0628: Anion Gap 11, Estimated GFR 22 L, BUN/Creatinine Ratio 39.3 H, Phosphorus 3.9, Magnesium 2.4 H, Troponin I 0.09, CBC w Diff NO MAN DIFF REQ, RBC 2.62 L, MCV 90.0, MCH 28.7, MCHC 31.8 L, RDW 19.1 H, MPV 8.9, Gran % 86.5 H, Lymphocytes % 8.1 L, Monocytes % 4.9, Eosinophils % 0.5, Basophils % 0, Absolute Granulocytes 10.2 H, Absolute Lymphocytes 1.0 L, Absolute Monocytes 0.6, Absolute Eosinophils 0.1, Absolute Basophils 0 07/31/18 0610: pH 7.24 *L, pCO2 77 *H, pO2 63 L, HCO3 33 H, ABG O2 Sat (Measured) 90.0 L, P- 50 (Temp Corrected) Y, Carboxyhemoglobin 1.5, O2 Concentration % 100%, Temperature 96.5 L, Respiration Rate 20, O2 Delivery Method VISION-FFM, Vent Mode ST, Expiratory Pressure 4, Inspiratory Pressure 16, Phlebotomy Draw Site RIGHT BRACHIAL 07/31/18 0110: pH 7.29 *L, pCO2 73 *H, pO2 63 L, HCO3 35 H, ABG O2 Sat (Measured) 92.0 L, P- 50 (Temp Corrected) Y, Carboxyhemoglobin 1.2 L, O2 Concentration % 6 LPM, Temperature 96.6 L, O2 Delivery Method N/C, Phlebotomy Draw Site RIGHT BRACHIAL 07/31/18 0050: Creatine Kinase < 20 L, Troponin I 0.08 07/30/182203: Urine Color YEL, Urine Clarity CLEAR, Urine pH 6.0, Ur Specific [place] 1.020, Urine Protein NEG, Urine Ketones NEG, Urine Nitrite NEG, Urine Bilirubin NEG, Urine Urobilinogen 0.2, Ur Leukocyte Esterase NEG, Ur Microscopic EXAM NOT REQUIRED, Urine Hemoglobin NEG, Urine Glucose NEG 07/30/182203: Ur Random Creatinine 43.4, U Random Total Protein 20 H, Ur Random Sodium 7 L, Ur Random Potassium 39.7, Fraction Sodium Excret 0.4 07/30/182149: Lactic Acid Cancelled 07/30/181947: Anion Gap 12, Estimated GFR 20 L, BUN/Creatinine Ratio 37.7 H, Glucose 193 H, Lactic Acid 1.9, Calcium 9.5, Total Bilirubin 0.5, AST 12 L, ALT 21, Alkaline Phosphatase 98, Troponin I 0.08, Nzh-P-Yrmrilbvycs Pept 26409 H, Total Protein 5.6 L, Albumin 3.4 L, Globulin 2.2, Albumin/Globulin Ratio 1.5, TSH < 0.015 L , Free T4 1.46, PT 10.6, INR 0.97, APTT 25, CBC w Diff NO MAN DIFF REQ, RBC 2.76 L, MCV 85.3, MCH 27.1, MCHC 31.8 L, RDW 19.0 H, MPV 8.2, Gran % 87.3 H, Lymphocytes % 7.3 L, Monocytes % 5.0, Eosinophils % 0.4, Basophils % 0, Absolute Granulocytes 8.3 H, Absolute Lymphocytes 0.7 L, Absolute Monocytes 0.5, Absolute Eosinophils 0, Absolute Basophils 0 Microbiology 07/30 2115 URINE ROUT: Legionella Antigen - COMP 07/30 2115 URINE ROUT: Streptococcus pneumoniae Antigen (M - COMP Assessment/Plan CRCU Impression/Plan: Mr. Vieira is a 68-year-old male with past medical history of COPD on 4-5 L oxygen and nocturnal BiPAP followed by Dr. So, atrial fibrillation on rivaroxaban followed by Dr. Walton, diabetes mellitus, hypertension, hyperlipidemia, AAA status post repair, HFrEF (EF 30-35%), GERD, prostate cancer , and chronic kidney disease who presented last night with altered mental status and recent mechanical fall initially admitted to telemetry for AMS and EKG changes with subsequent deterioration in respiratory status and transferred to the ICU now on BiPAP. Plan: Neurology: -Patient is altered mental status likely secondary to hypercarbia -Acetaminophen for pain -Hold oral medications if aspiration risk Respiratory: -Patient has acute on chronic respiratory failure with end-stage COPD on 4-5 L of oxygen at home -ABG shows worsening respiratory acidosis with metabolic compensation and hypercarbia -BiPAP / -Chest x-ray shows diffuse patchy interstitial markings most prominent in the right lung base and bilateral pleural effusions -Methylprednisone 40 mg every 8 hours Cardiology: -Patient has history of atrial fibrillation on rivaroxaban -EKG on admission showed ST depressions in V5/V6 -Patient has no chest pain and troponins x3 were negative -Cardiology consult placed GI: -Patient is n.p.o. for altered mental status Renal: -Patient has acute on chronic kidney failure -Urinalysis shows no protein or evidence of UTI -Fractional excretion of sodium is 0.4%, indicating prerenal etiology -D5 normal saline at 50 mL/h -Renal ultrasound -Nephrology consult -Streeter catheter DVT prophylaxis with rivaroxaban N.p.o. Full code: Patient has previously been DNR/DNI but recent discussion with his indicated that they wanted to be full code. We will continue discussions given that he has end-stage COPD with very frequent hospitalizations. His long- term prognosis is very poor and he would likely tolerate intubation poorly. Consult Acknowledgment - Thank you for your consult request. Mark So MD 07/31/18 1032: Assessment/Plan CRCU Other Findings/Comments: Discussed with housestaff, nursing staff. Agree with history, impression, plan above. Impression 68 year old man * admitted to the ICU for acute on chronic hypercarbic respiratory failure * MADISON after recent fall, AMS likely secondary to hypercarbia, in the setting of diuretic use for chronic edema and CHF * chronic anemia Plan Respiratory -BiPAP settings adjusted to increase PS -ABG monitoring -would try to avoid intubation if possible as his recovery post intubation would be prolonged and possibily may require to be intubated indefinitely -TRC/Nebs -solumedrol 40mg iv q8h -will continue to discuss goals of care and code status -he was previously DNR/DNI - currently full code, we are trying to get in contact with his ID -CXR improved, likely consistent with interstitial markings/vascular congestion -hx of Klebsiella, MRSA in sputum CVS -monitor hemodynamics -f/u with Dr. Perla Walton Heme -stop xarelto for now given worsened renal failure, will discuss with cardiology heparin gtt in setting of chronic anemia vs. holding A/C Metabolic -nephrology consultation -ins/outs -electrolyte/creatinine monitoring Alimentary -NPO Neuro -monitor mental status -will continue to discuss goals of care and code status -he was previously DNR/DNI - currently full code, we are trying to get in contact with his Attending time spent - 80 min Consult Acknowledgment - Thank you for your consult request.
[2018-07-31 09:00] VITALS: BP 108/62
--- NOTE | 2018-07-31 09:40 | RADIOLOGY REPORT ---
EXAMINATION: XR PORTABLE CHEST CLINICAL INFORMATION: Pneumonia COMPARISON: 07/30/2018 TECHNIQUE: Portable frontal view of the chest was obtained. FINDINGS: There are diffuse patchy airspace opacities most prominent in the right lower lung eckert slightly improved compared with prior. There is an increasing right-sided pleural effusion. There may be a left-sided effusion, the lung bases are not fully visualized on the current exam. The patient is rotated. The heart is enlarged. IMPRESSION: Diffuse patchy interstitial markings most prominent in the right lung base, slightly improved compared with prior. Probable bilateral pleural effusions. Enlarged heart.
--- NOTE | 2018-07-31 09:42 | Cons- Cardiology ---
General Information and HPI Consulting Request Date of Consult: 07/31/18 Requested By: Matt Garcia MD Reason for Consult: Respiratory failure, atrial fibrillation Source of Information: patient, old records Exam Limitations: not alert/orientated History of Present Illness: The patient is a 68-year-old man with chronic atrial fibrillation, end-stage COPD, recurrent congestive heart failure, HFrEF, the patient has been hospitalized multiple times in the past 2 years, most recently about 6 weeks ago. He has also had GI bleeding in the recent past. He also had a aortic aneurysm stent in January 2018. Finally he has CKD. After his last hospitalization in late May and June eventually discharged home I have not seen him in the office. He finds it extremely difficult to get out. Apparently the patient has been quite weak and fell out of bed and was brought here. He was found to have MADISON on CKD, mental status changes and moderate atrial fibrillation. His BNP is quite elevated. His chest x-ray is difficult to read for CHF because of chronic changes. He was originally placed on telemetry but was transferred to ICU because of respiratory distress and respiratory failure. Allergies/Medications Allergies: Coded Allergies: No Known Allergies (04/10/18) Home Med List: Albuterol Sulfate 2.5 MG/3 ML (0.083 %) VIAL.NEB 1 Vial INH/ABILIO Q6H PRN SHORTNESS OF BREATH (Reported) Albuterol Sulfate (Proair Hfa) 90 MCG HFA.AER.AD 1 PUF INH Q4H PRN SHORTNESS OF BREATH (Reported) Aspirin (Ecotrin*) 81 MG TABLET.DR 1 TAB PO DAILY HEART/BLOOD (Reported) Atorvastatin Calcium 10 MG TABLET 1 TAB PO DAILY CHOLESTEROL (Reported) Budesonide/Formoterol Fumarate (Symbicort 160-4.5 Mcg Inhaler) 160 MCG-4.5 MCG/ ACTUATION HFA.AER.AD 2 PUF INH BID SHORTNESS OF BREATH (Reported) Cyanocobalamin (Vitamin B-12) (B-12) 1,000 MCG TABLET 1 TAB PO DAILY VITAMIN SUPPORT (Reported) Diltiazem HCl (Cardizem Cd) 240 MG CAP.ER.24H 240 MG PO DAILY ATRIAL FIB Ferrous Sulfate 325 MG TABLET. 325 MG PO BID Iron supplement Furosemide (Lasix) 40 MG TABLET 1 TAB PO BID DIURETIC (Reported) Insulin Aspart (Novolog) (Unknown Strength) VIAL (Unknown Dose) SC SEE SLIDING SCALE DIABETES (Reported) Insulin Detemir (Levemir) 100 UNIT/ML VIAL 10 UNITS SC 0900 DM Insulin Detemir (Levemir) 100 UNIT/ML VIAL 8 UNITS SC AT BEDTIME DM Loperamide HCl (Loperamide) 2 MG CAPSULE 2 CAP PO BID PRN ANTI-DIARRHEAL ( Reported) Metoprolol Tartrate 25 MG TABLET 1 TAB PO BID AFIB Mometasone Furoate (Nasonex) 50 MCG SPRAY.PUMP 1 SPRAY NASB DAILY ALLERGIES ( Reported) Pantoprazole Sodium (Protonix) 40 MG TABLET.DR 1 TAB PO DAILY ACID REFLUX ( Reported) Potassium Chloride 20 MEQ TAB.ER.PRT 1 TAB PO DAILY SUPPLEMENT (Reported) Rivaroxaban (Xarelto) 20 MG TABLET 1 TAB PO DAILY BLOOD THINNER (Reported) with food Tiotropium [place] (Spiriva) 18 MCG CAP.W.DEV 1 CAP INH DAILY SHORTNESS OF BREATH (Reported) Current Medications: Current Medications Sig/Eve Start time Last Medication Dose Route Stop Time Status Admin Acetaminophen 1,000 MG Q8 07/31 1400 AC IV Acetaminophen 650 MG Q6P PRN 07/30 2115 DC PO Acetaminophen 1,000 MG Q6P PRN 07/30 2115 DC IV Aspirin 0 .STK-MED ONE 07/30 2110 DC PO Aspirin 325 MG ONCE ONE 07/30 2100 DC 07/30 PO 07/30 Aspirin Buffered 81 MG DAILY 07/31 900 AC PO Atorvastatin Calcium 10 MG DAILY 07/31 900 AC PO Cyanocobalamin 1,000 MCG DAILY 07/31 900 AC PO Dextrose/Sodium 1,000 ML Q20H 07/30 2230 AC 07/30 Chloride IV 2320 Diltiazem HCl 240 MG DAILY 07/31 900 AC PO Insulin Aspart 0 TIDAC/HS 07/31 08 CAN SC Insulin Detemir 0 .STK-MED ONE 07/30 2338 DC SC Insulin Detemir 4 UNITS BID 07/30 2245 AC 07/30 SC 2340 Insulin Human Regular 0 Q6 07/30 2359 AC 07/31 SC 0630 Insulin Human Regular 0 .STK-MED ONE 07/30 2340 DC .ROUTE Methylprednisolone 40 MG Q8 07/31 905 AC 07/31 IV 0903 Methylprednisolone 0 .STK-MED ONE 07/31 902 DC .ROUTE Methylprednisolone 125 MG ONCE ONE 07/31 800 DC IV 07/31 801 Metoprolol Tartrate 25 MG BID 07/30 2135 AC PO Oxycodone/ 1 TAB Q6P PRN 07/30 2115 DC Acetaminophen PO Pantoprazole Sodium 40 MG DAILY 07/31 900 AC IV Rivaroxaban 15 MG DAILY 07/31 900 DC PO Sodium Chloride 1,000 ML BOLUS ONE 07/30 2045 DC 07/30 IV 07/30 Review of Systems Review of Systems: Unable to obtain Past History Travel History Traveled to [place] past 21 day No Medical History Blood Transfusion Hx: Yes Neurological: TIA 2010 EENT: cataracts Cardiovascular: AFIB, CHF, hypertension, hyperlipidemia Respiratory: COPD, 6L O2 DEPENDENT BIPAP AT NIGHT Gastrointestinal: GERD, ABD ANEURYSM (REPAIRED) Hepatic: NONE Renal: NONE Musculoskeletal: NONE Psychiatric: NONE Endocrine: NONE Blood Disorders: NONE Cancer(s): prostate cancer TERMINAL CLERK/Reproductive: NONE Surgical History Surgical History: cataract removal, PROSTATE SURGERY AAA REPAIR TONSILLECTOMY Endovascular AAA repair endovascular abdominal aortic aneurysm repair Family History Relations & Conditions If Any: MOTHER, ; Cause: COPD (chronic obstructive pulmonary disease). FATHER, ; Cause: Myocardial infarct. SISTER, ; Cause: Myocardial infarct. Psychosocial History Where Do You Live? Home Who Do You Live With? spouse Services at Home: None Primary Language: Costa Rican Smoking Status: Never Smoked ETOH Use: denies use Illicit Drug Use: denies illicit drug use Living Will? unknown Power of Manager Cardiovascular/HCP? unknown Functional Ability ADLs Independent: dressing, eating, toileting, bathing. Ambulation: independent IADLs Independent: shopping, housework, finances, food prep, telephone, transportation , medication admin. Exam & Diagnostic Data Vital Signs and I&O Vital Signs Date Time Temp Pulse Resp B/P B/P Pulse O2 O2 Flow FiO2 Mean Ox Delivery Rate 07/31 907 BIPAP 50% 07/31 0850 59 95 07/31 0610 99 92 07/31 0556 112 73 07/31 0349 102 97 07/31 0140 104 97 07/31 0000 97 BIPAP 07/30 2305 91 Nasal 6.0L Cannula 07/30 2305 96.6 112 20 110/62 91 Nasal 6.0L Cannula 07/308 10807/305 97.4 108 18 108 96 Nasal 6.0L Cannula 07/30 1936 94 Nasal 6.0L Cannula 07/30 1837 98.3 109 18 128/86 99 Nasal 6.0L Cannula Intake & Output 07/31 0000 07/30 0000 Intake Total 400 Output Total 180 Balance 400 -180 Intake, IV 400 Output, Urine 180 Patient 155 lb Weight Weight Bed scale Measurement Method Physical Exam: Lethargic elderly appearing male on BiPAP poorly arousable HEENT exam BiPAP on Chest poor air movement Heart irregular rhythm moderate rate, no murmurs Abdomen nontender Extremities no edema Labs/Sridhar Results: Laboratory Tests 07/31 07/31 0628 0610 Blood Gas pH (7.35 - 7.45 PH) 7.24 *L pCO2 (35 - 45 TORR) 77 *H pO2 (80 - 100 TORR) 63 L HCO3 (21 - 28 MEQ/L) 33 H ABG O2 Sat (Measured) (>96.0 %) 90.0 L P-50 (Temp Corrected) Y Carboxyhemoglobin (1.5 - 5.0 %) 1.5 O2 Concentration % 100% Temperature (97.0 - 100.0 FARH) 96.5 L Respiration Rate (BPM) 20 O2 Delivery Method VISION-FFM Vent Mode ST Expiratory Pressure (CM H2O P) 4 Inspiratory Pressure (CM H2O P) 16 Chemistry Sodium (137 - 145 mmol/L) 136 L Potassium (3.5 - 5.1 mmol/L) 4.2 Chloride (98 - 107 mmol/L) 90 L Carbon Dioxide (22 - 30 mmol/L) 35 H Anion Gap (5 - 16) 11 BUN (9 - 20 mg/dL) 114 *H Creatinine (0.7 - 1.2 mg/dL) 2.9 H Estimated GFR (>60 ml/min) 22 L BUN/Creatinine Ratio (7 - 25 %) 39.3 H Phosphorus (2.5 - 4.5 mg/dL) 3.9 Magnesium (1.6 - 2.3 mg/dL) 2.4 H Troponin I (<0.11 ng/ml) 0.09 Hematology CBC w Diff NO MAN DIFF REQ WBC (4.8 - 10.8 /CUMM) 11.8 H RBC (4.70 - 6.10 /CUMM) 2.62 L Hgb (14.0 - 18.0 G/DL) 7.5 L Hct (42 - 52 %) 23.6 L MCV (80.0 - 94.0 FL) 90.0 MCH (27.0 - 31.0 PG) 28.7 MCHC (33.0 - 37.0 G/DL) 31.8 L RDW (11.5 - 14.5 %) 19.1 H Plt Count (130 - 400 /CUMM) 188 MPV (7.4 - 10.4 FL) 8.9 Gran % (42.2 - 75.2 %) 86.5 H Lymphocytes % (20.5 - 51.1 %) 8.1 L Monocytes % (1.7 - 9.3 %) 4.9 Eosinophils % (0 - 5 %) 0.5 Basophils % (0.0 - 2.0 %) 0 Absolute Granulocytes (1.4 - 6.5 /CUMM) 10.2 H Absolute Lymphocytes (1.2 - 3.4 /CUMM) 1.0 L Absolute Monocytes (0.10 - 0.60 /CUMM) 0.6 Absolute Eosinophils (0.0 - 0.7 /CUMM) 0.1 Absolute Basophils (0.0 - 0.2 /CUMM) 0 Miscellaneous Phlebotomy Draw Site RIGHT BRACHIAL 07/31 07/31 0110 0050 Blood Gas pH (7.35 - 7.45 PH) 7.29 *L pCO2 (35 - 45 TORR) 73 *H pO2 (80 - 100 TORR) 63 L HCO3 (21 - 28 MEQ/L) 35 H ABG O2 Sat (Measured) (>96.0 %) 92.0 L P-50 (Temp Corrected) Y Carboxyhemoglobin (1.5 - 5.0 %) 1.2 L O2 Concentration % 6 LPM Temperature (97.0 - 100.0 FARH) 96.6 L O2 Delivery Method N/C Chemistry Troponin I (<0.11 ng/ml) 0.08 Miscellaneous Phlebotomy Draw Site RIGHT BRACHIAL 07/30 07/30 07/30 2204 2204 2150 Chemistry Lactic Acid Cancelled Urines Urine Color (YEL,AMB,STR) YEL Urine Clarity (CLEAR) CLEAR Urine pH (5.0 - 8.0) 6.0 Ur Specific [place] (1.001 - 1.035) 1.020 Urine Protein (NEG,<30 MG/DL) NEG Urine Ketones (NEG) NEG Urine Nitrite (NEG) NEG Urine Bilirubin (NEG) NEG Urine Urobilinogen (0.1 - 1.0 EU/dl) 0.2 Ur Leukocyte Esterase (NEG) NEG Ur Microscopic EXAM NOT REQUIRED Urine Hemoglobin (NEG) NEG Ur Random Creatinine (mg/dL) 43.4 U Random Total Protein (0 - 12 mg/dL) 20 H Ur Random Sodium (30 - 90 mmol/L) 7 L Ur Random Potassium (mmol/L) 39.7 Fraction Sodium Excret (<1% %) 0.4 Urine Glucose (N MG/DL) NEG 07/30 1948 Chemistry Sodium (137 - 145 mmol/L) 133 L Potassium (3.5 - 5.1 mmol/L) 4.7 Chloride (98 - 107 mmol/L) 85 L Carbon Dioxide (22 - 30 mmol/L) 36 H Anion Gap (5 - 16) 12 BUN (9 - 20 mg/dL) 117 *H Creatinine (0.7 - 1.2 mg/dL) 3.1 H Estimated GFR (>60 ml/min) 20 L BUN/Creatinine Ratio (7 - 25 %) 37.7 H Glucose (65 - 99 mg/dL) 193 H Lactic Acid (0.7 - 2.1 mmol/L) 1.9 Calcium (8.4 - 10.2 mg/dL) 9.5 Total Bilirubin (0.2 - 1.3 mg/dL) 0.5 AST (17 - 59 U/L) 12 L ALT (21 - 72 U/L) 21 Alkaline Phosphatase (< 127 U/L) 98 Troponin I (<0.11 ng/ml) 0.08 Ubg-A-Gbdmbemxfor Pept (<125 pg/mL) 39933 H Total Protein (6.3 - 8.2 g/dL) 5.6 L Albumin (3.5 - 5.0 g/dL) 3.4 L Globulin (1.9 - 4.2 gm/dL) 2.2 Albumin/Globulin Ratio (1.1 - 2.2 %) 1.5 TSH (0.270 - 4.200 uIU/mL) < 0.015 L Free T4 (0.78 - 2.44 ng/dL) 1.46 Coagulation PT (9.4 - 12.5 SEC) 10.6 INR (0.90 - 1.17) 0.97 APTT (25 - 37 SEC) 25 Hematology CBC w Diff NO MAN DIFF REQ WBC (4.8 - 10.8 /CUMM) 9.6 RBC (4.70 - 6.10 /CUMM) 2.76 L Hgb (14.0 - 18.0 G/DL) 7.5 L Hct (42 - 52 %) 23.5 L MCV (80.0 - 94.0 FL) 85.3 MCH (27.0 - 31.0 PG) 27.1 MCHC (33.0 - 37.0 G/DL) 31.8 L RDW (11.5 - 14.5 %) 19.0 H Plt Count (130 - 400 /CUMM) 189 MPV (7.4 - 10.4 FL) 8.2 Gran % (42.2 - 75.2 %) 87.3 H Lymphocytes % (20.5 - 51.1 %) 7.3 L Monocytes % (1.7 - 9.3 %) 5.0 Eosinophils % (0 - 5 %) 0.4 Basophils % (0.0 - 2.0 %) 0 Absolute Granulocytes (1.4 - 6.5 /CUMM) 8.3 H Absolute Lymphocytes (1.2 - 3.4 /CUMM) 0.7 L Absolute Monocytes (0.10 - 0.60 /CUMM) 0.5 Absolute Eosinophils (0.0 - 0.7 /CUMM) 0 Absolute Basophils (0.0 - 0.2 /CUMM) 0 Diagnostic Data EKG Results Afib 115-125, LVH, LAD, IVCD CXR Results PATIENT: COURTNEY MURCIA PRESENT AGE: 68 PATIENT ACCOUNT NO: [id number] : 49 LOCATION: [facility] ORDERING PHYSICIAN: Saul ALARCON SERVICE DATE: 07/30/18 EXAM TYPE: RAD - XRY-AP PELVIS; XRY-PORTABLE CHEST XRAY EXAMINATION: CHEST AND X-RAY AP PELVIS CLINICAL INFORMATION: Trauma. Fell out of bed. COMPARISON: None TECHNIQUE: Chest 2 views. AP pelvis one view. FINDINGS: CHEST: There is moderate cardiomegaly with normal pulmonary vascularity. The lungs are expanded with diffuse finding prominence of interstitial markings with patchy ill-defined density right midlung and right lower lobe. Cannot exclude underlying infiltrate or parenchymal lesion. There is no effusion. No gross bony abnormality. PELVIS: There is normal symmetry of bilateral hip joints and SI joints. No visible acute fracture, dislocation or lytic process seen. There is moderate stool in the right colon. There is bilateral common iliac stents in place. IMPRESSION: Cardiomegaly. Diffuse prominent interstitial markings in both lungs likely chronic changes. Interstitial pneumonitis is not excluded. Similar findings were seen on the previous study 06/25/2018. However patchy opacity right midlung is slightly more prominent than the previous study. Focal infiltrate is not excluded. DICTATED BY: Olivia CR,Sherwin DATE/TIME DICTATED:07/30/181927 UPPER LINING CEMENTER:LINDY DATE/TIME TRANSCRIBED:07/30/181927 CONFIDENTIAL, DO NOT COPY WITHOUT APPROPRIATE AUTHORIZATION. <Electronically signed in Other Vendor System> SIGNED BY: Olivia CR,Sherwin 07/30/181943 Assessment/Plan Assessment/Plan The patient is 68-year-old male with end-stage COPD, chronic atrial fibrillation , previous GI bleeding, acute kidney injury on chronic kidney disease. His main problem at this time is hypercapnia respiratory failure and worsening renal failure. He does not appear to be in gross congestive heart failure despite elevated proBNP. His heart rate is somewhat elevated. He has been transitioned to IV Cardizem because he cannot take oral medications at this time. He was placed on IV heparin instead of Eliquis, but I think he can be kept off anticoagulants at least for a short period of time with minimal risk. Courtney's prognosis is quite poor and he looks poor than he has on previous hospitalizations. He is now DNR/DNI and I think discussions should be held continually with his regarding prognosis and possibility of comfort care and/or hospice care. Consult Acknowledgment - Thank you for your consult request.
[2018-07-31 12:00] VITALS: BP 106/68
--- NOTE | 2018-07-31 12:04 | ULTRASOUND REPORT ---
EXAMINATION: US RETROPERITONEAL COMPLETE (RENAL) CLINICAL INFORMATION: Acute on chronic kidney injury.. COMPARISON: Renal ultrasound 06/19/2018 TECHNIQUE: Real-time imaging of the kidneys and bladder. Technically challenging exam due to patient's inability to tolerate the procedure. The patient is ventilated unable to follow commands. FINDINGS: RIGHT KIDNEY: 10.9 x 5.9 x 5.9 cm (SAG x AP x TRV). The kidney is normal in size, contour, and echogenicity. Renal cortical thickness is normal. No calculi or focal parenchymal lesions. No hydronephrosis. Trace amount of perinephric fluid. LEFT KIDNEY: 9.9 x 6.2 x 4.4 cm (SAG x AP x TRV). The kidney is normal in size, contour, and echogenicity. Renal cortical thickness is normal. No calculi or focal parenchymal lesions. No hydronephrosis. BLADDER: Not visualized, the patient has a Streeter in place. IMPRESSION: No hydronephrosis. The bladder is decompressed with a Streeter catheter in place.
[2018-07-31 14:50] LABS: ABSOLUTE BASOPHIL COUNT 0 /CUMM (0.0-0.2); ABSOLUTE EOSINOPHIL COUNT 0 /CUMM (0.0-0.7); ABSOLUTE GRANULOCYTE CT 17.3 /CUMM (1.4-6.5); ABSOLUTE LYMPH COUNT 0.3 /CUMM (1.2-3.4); ABSOLUTE MONOCYTE COUNT 0.2 /CUMM (0.10-0.60); BASOPHIL % 0 % (0.0-2.0); EOSINOPHIL % 0 % (0-5); GRANULOCYTE % 97.2 % (42.2-75.2); HEMATOCRIT 24.4 % (42-52); MEAN CORPUSCULAR HGB 27.7 PG (27.0-31.0); MEAN CORPUSCULAR HGB CONC 31.1 G/DL (33.0-37.0); MEAN CORPUSCULAR VOLUME 88.9 FL (80.0-94.0); MEAN PLATELET VOLUME 8.5 FL (7.4-10.4); PLATELET COUNT 185 /CUMM (130-400); RED BLOOD CELL CT 2.74 /CUMM (4.70-6.10)
[2018-07-31 15:04] LABS: WHITE BLOOD CELL COUNT 17.8 /CUMM (4.8-10.8)
--- NOTE | 2018-07-31 15:20 | Cons- Nephrology ---
General Information and HPI Consulting Request Date of Consult: 07/31/18 Requested By: Matt Garcia MD Reason for Consult: CKD/MADISON Source of Information: old records Exam Limitations: unable to give history, clinical condition, physical impairment History of Present Illness: The patient is a 68-year-old man with a background of end-stage COPD, congestive heart failure (HFrEF), chronic atrial fibrillation and CKD with a baseline creatinine in the mid 1's. He was recently admitted from 06/17 through 07/01/18 with COPD exacerbation and MADISON. His creatinine peaked at 2.5 and came down to 1.5-1.7 by the time he was discharged, while his BUN fell from 91 to 43 over that same period of time. He now comes in with hypercarbic respiratory failure, altered mental status and a BUN of 117, creatinine 3.1 yesterday. Today his BUN is down slightly to 114 and creatinine to 2.9. He has been seen by our group several times in the past including in 2014 at [facility] and in February of this year here at [place], and again on his recent admission as noted above.. In February, there was a bout of MADISON which was felt to be on the basis of contrast nephropathy with a serum creatinine at that time that peaked at 3.6. At discharge it had gone down to 2.3. Urine analyses have not shown any significant proteinuria in the past. He currently has not been exposed to any parenteral contrast. His intake has recently been poor but he continued to take his Lasix. Chest x-ray shows increased interstitial markings which may be chronic but no definite CHF. There is a history of MRSA pneumonia. He is now on BiPAP and his CODE STATUS has been changed to DNR/DNI. Past medical history is positive as noted above. In addition there is a history of congestive heart failure with reduced EF, atrial fibrillation on Xarelto, COPD on home O2 and BiPAP at night, BHARATHI, diabetes mellitus, hypertension, hyperlipidemia, GERD, abdominal aneurysm, prostate CA, MADISON secondary to contrast nephropathy and CKD as noted above. Medications: See below Allergies: No known drug allergies Family history: Positive for COPD and heart disease in his parents, negative for kidney disease Social history: Former smoker without history of alcohol or drug abuse. Allergies/Medications Allergies: Coded Allergies: No Known Allergies (04/10/18) Home Med List: Albuterol Sulfate 2.5 MG/3 ML (0.083 %) VIAL.NEB 1 Vial INH/ABILIO Q6H PRN SHORTNESS OF BREATH (Reported) Albuterol Sulfate (Proair Hfa) 90 MCG HFA.AER.AD 1 PUF INH Q4H PRN SHORTNESS OF BREATH (Reported) Aspirin (Ecotrin*) 81 MG TABLET.DR 1 TAB PO DAILY HEART/BLOOD (Reported) Atorvastatin Calcium 10 MG TABLET 1 TAB PO DAILY CHOLESTEROL (Reported) Budesonide/Formoterol Fumarate (Symbicort 160-4.5 Mcg Inhaler) 160 MCG-4.5 MCG/ ACTUATION HFA.AER.AD 2 PUF INH BID SHORTNESS OF BREATH (Reported) Cyanocobalamin (Vitamin B-12) (B-12) 1,000 MCG TABLET 1 TAB PO DAILY VITAMIN SUPPORT (Reported) Diltiazem HCl (Cardizem Cd) 240 MG CAP.ER.24H 240 MG PO DAILY ATRIAL FIB Ferrous Sulfate 325 MG TABLET. 325 MG PO BID Iron supplement Furosemide (Lasix) 40 MG TABLET 1 TAB PO BID DIURETIC (Reported) Insulin Aspart (Novolog) (Unknown Strength) VIAL (Unknown Dose) SC SEE SLIDING SCALE DIABETES (Reported) Insulin Detemir (Levemir) 100 UNIT/ML VIAL 10 UNITS SC 0900 DM Insulin Detemir (Levemir) 100 UNIT/ML VIAL 8 UNITS SC AT BEDTIME DM Loperamide HCl (Loperamide) 2 MG CAPSULE 2 CAP PO BID PRN ANTI-DIARRHEAL ( Reported) Metoprolol Tartrate 25 MG TABLET 1 TAB PO BID AFIB Mometasone Furoate (Nasonex) 50 MCG SPRAY.PUMP 1 SPRAY NASB DAILY ALLERGIES ( Reported) Pantoprazole Sodium (Protonix) 40 MG TABLET. 1 TAB PO DAILY ACID REFLUX ( Reported) Potassium Chloride 20 MEQ TAB.ER.PRT 1 TAB PO DAILY SUPPLEMENT (Reported) Rivaroxaban (Xarelto) 20 MG TABLET 1 TAB PO DAILY BLOOD THINNER (Reported) with food Tiotropium [place] (Spiriva) 18 MCG CAP.W.DEV 1 CAP INH DAILY SHORTNESS OF BREATH (Reported) Past History Travel History Traveled to [place] past 21 day No Medical History Blood Transfusion Hx: Yes Neurological: TIA 2010 EENT: cataracts Cardiovascular: AFIB, CHF, hypertension, hyperlipidemia Respiratory: COPD, 6L O2 DEPENDENT BIPAP AT NIGHT Gastrointestinal: GERD, ABD ANEURYSM (REPAIRED) Hepatic: NONE Renal: NONE Musculoskeletal: NONE Psychiatric: NONE Endocrine: NONE Blood Disorders: NONE Cancer(s): prostate cancer CUPOLA MAN/Reproductive: NONE Surgical History Surgical History: cataract removal, PROSTATE SURGERY AAA REPAIR TONSILLECTOMY Endovascular AAA repair endovascular abdominal aortic aneurysm repair Family History Relations & Conditions If Any: MOTHER, ; Cause: COPD (chronic obstructive pulmonary disease). FATHER, ; Cause: Myocardial infarct. SISTER, ; Cause: Myocardial infarct. Psychosocial History Where Do You Live? Home Who Do You Live With? spouse Services at Home: None Primary Language: Kuwaiti Smoking Status: Never Smoked ETOH Use: denies use Illicit Drug Use: denies illicit drug use Living Will? unknown Power of Exhibition Designer/HCP? unknown Functional Ability ADLs Independent: dressing, eating, toileting, bathing. Ambulation: independent IADLs Independent: shopping, housework, finances, food prep, telephone, transportation , medication admin. Exam & Diagnostic Data Vital Signs and I&O Vital Signs Date Time Temp Pulse Resp B/P B/P Pulse O2 O2 Flow FiO2 Mean Ox Delivery Rate 07/31 1340 105 97 07/31 1200 100 BIPAP 50% 07/31 1200 96.2 104 20 106/68 100 BIPAP 50% 07/31 1057 109 92 07/31 0907 BIPAP 50% 07/31 0900 92 BIPAP 50% 07/31 0900 96.5 128 32 108/62 92 BIPAP 50% 07/31 0850 59 95 07/31 0610 99 92 07/31 0556 112 73 07/31 0349 102 97 07/31 0140 104 97 07/31 0000 97 BIPAP 07/30 2305 91 Nasal 6.0L Cannula 07/30 230 96.6 112 20 110/62 91 Nasal 6.0L Cannula 07/30 2228 108/83 07/30 2205 97.4 108 18 108/83 96 Nasal 6.0L Cannula 07/30 1936 94 Nasal 6.0L Cannula 07/30 1837 98.3 109 18 128/86 99 Nasal 6.0L Cannula Intake & Output 07/31 1600 07/31 0400 07/30 1600 07/30 0400 07/29 1600 07/29 0400 Intake Total 779.8 Output Total 300 180 Balance 479.8 -180 Intake, IV 779.8 Output, Urine 300 180 Patient 155 lb Weight Weight Bed scale Measurement Method Physical Exam: General: Chronically and acutely ill-appearing, white male, on BiPAP Skin: Multiple ecchymoses diffusely without rash or jaundice HEENT: Conjunctivae pale, sclerae anicteric, mucous membranes dry Neck: Without masses or thyromegaly, no supraclavicular or cervical adenopathy Chest: Poor air entry bilaterally with coarse breath sounds Heart: Irregular rhythm without S3 or rub Abdomen: Soft and nontender without palpable masses or organomegaly Extremities: Without cyanosis; 2+ LE edema Neuro: Difficult to arouse without focal findings; no asterixis or myoclonus Assessment/Plan Assessment/Recommendations Assessment: 68-year-old man with CKD manifested by baseline creatinine in mid to high 1's, without proteinuria in the past, in the setting of diabetes mellitus, hypertension, COPD and congestive heart failure on oral Lasix with I expect poor p.o. intake. He has now can come in with MADISON in the setting of COPD exacerbation with severe hypercapnic respiratory failure and possible pneumonia. I do not believe there is a significant element of CHF despite his history of HFrEF. My clinical impression at this time is that he is somewhat volume depleted. Recommendations: 1. Gentle hydration with normal saline at 75 cc/h 2. We will continue discussions with family regarding limits of intervention and strong consideration for comfort measures Thank you. We will follow up.
[2018-07-31 16:00] VITALS: BP 100/70
--- NOTE | 2018-07-31 16:58 | Event Note ---
Event Note Event Note: Had a discussion with Elmira - Mr. Vieira's regarding code status and severity of illness. He has significant hypercarbic respiratory failure at this point becoming refractory to BiPAP therapy. Mr. Vieira's comorbidities were weighed and the decision was made with his to change his code status to DNR/DNI. We will continue current therapy and if he was to deteriorate we discussed consideration for comfort measures.
--- NOTE | 2018-07-31 22:22 | Event Note ---
Event Note Event Note: Patient desaturated to 70s and we had to increased the O2 to 100% on the bIpap. Noted to be in distress and was given IV morphine. His BP trended down to 70s / 40s he continued to be in respiratory distress. spoke to (Elmira) on the home phone [phone] and informed her of his deterioration. At this time she would like to make him comfort measures.
[2018-07-31 23:00] VITALS: BP 82/50
--- NOTE | 2018-08-01 07:17 | PN- Housestaff ---
See Addendum Subjective Follow-up For: Fall Subjective: Overnight, patient was switched to comfort measures. Please see event note for further details. This morning patient has irregular respirations, not responsive to verbal. at bedside. states patient looks more comfortable than yesterday. Review of Systems Constitutional: Reports: see HPI. Objective Last 24 Hrs of Vital Signs/I&O Vital Signs Date Time Temp Pulse Resp B/P B/P Pulse O2 O2 Flow FiO2 Mean Ox Delivery Rate 08/01 0000 94 Non 100% ReBreather 07/31 2300 96.9 102 12 82/50 94 Non 100% ReBreather 07/31 2227 107 93 07/31 2000 93 BIPAP 40% 07/31 1909 108 96 07/31 1708 119 92 07/31 1700 92 BIPAP 40% 07/31 1600 90 BIPAP 35% 07/31 1600 98.2 117 30 100/70 90 BIPAP 35% 07/31 1340 105 97 07/31 1200 100 BIPAP 50% 07/31 1200 96.2 104 20 106/68 100 BIPAP 50% 07/31 1057 109 92 07/31 0907 BIPAP 50% 07/31 0900 92 BIPAP 50% 07/31 0900 96.5 128 32 108/62 92 BIPAP 50% 07/31 0850 59 95 Intake & Output 08/01 1600 08/01 0800 08/01 0000 Intake Total 160 865.7 Output Total 15 265 Balance 145 600.7 Intake, IV 160 865.7 Intake, Oral 0 Output, Urine 15 265 Physical Exam General Appearance: Mild Distress Skin: multiple violaceous hopkins on b/l upper extremities, small skin tear to R hand Skin Temp/Moisture Exam: Warm/Dry Cardiovascular: Normal S1, Normal S2, No Murmurs, irregularly irregular Lungs: Clear to Auscultation, apneic breaths, irregular Abdomen: Soft, No Tenderness Extremities: No Edema, Normal Pulses Current Medications: Current Medications Sig/Eve Start time Last Medication Dose Route Stop Time Status Admin Acetaminophen 1,000 MG Q8 07/31 1400 DC IV Acetaminophen 1,000 MG Q8P PRN 07/31 1400 DC IV Albuterol Sulfate 3 ML EVERY 4 HRS/AWAKE 07/31 1600 AC 07/31 INH 2011 Aspirin 300 MG DAILY 07/31 1022 DC 07/31 NC 1116 Aspirin Buffered 81 MG DAILY 07/31 0900 DC PO Atorvastatin Calcium 10 MG DAILY 07/31 900 DC PO Cyanocobalamin 1,000 MCG DAILY 07/31 900 DC PO Dextrose/Sodium 1,000 ML Q13H 07/31 1215 DC Chloride IV Dextrose/Sodium 1,000 ML Q20H 07/30 2230 DC 07/30 Chloride IV 2320 Diltiazem HCl 125 MG Q16H 07/31 1030 DC 07/31 Sodium Chloride 100 ML IV 1116 Diltiazem HCl 240 MG DAILY 07/31 900 DC PO Heparin Sodium 25,000 UNIT Q24H 07/31 1030 DC 07/31 (Porcine) IV 1116 Sodium Chloride 500 ML Hydromorphone HCl 0 Q2P PRN 07/31 2245 DC IV Insulin Detemir 4 UNITS BID 07/30 2245 DC 07/31 SC 2154 Insulin Human Regular 0 Q6 07/30 2359 DC 07/31 SC 1735 Lorazepam 0 .STK-MED ONE 07/31 2305 DC .ROUTE Lorazepam 1 MG Q2 PRN 07/31 2300 AC 07/31 IV 2304 Lorazepam 1 MG Q2P PRN 07/31 2245 DC PO Methylprednisolone 40 MG Q8 07/31 09 DC 07/31 IV 2154 Methylprednisolone 0 .STK-MED ONE 07/31 902 DC .ROUTE Metoprolol Tartrate 25 MG BID 07/30 213 DC PO Morphine Sulfate 2 MG [id number] PRN 07/31 2300 AC 07/31 IV 2305 Morphine Sulfate 2 MG ONCE ONE 07/31 2030 DC 07/31 IV 07/31 Morphine Sulfate 0 .STK-MED ONE 07/31 2027 DC .ROUTE Morphine Sulfate 2 MG ONCE ONE 07/31 1730 DC 07/31 IV 07/31 173 1735 Ondansetron HCl 4 MG ONCE ONE 07/31 2030 DC 07/31 IV 07/31 Ondansetron HCl 0 .STK-MED ONE 07/31 2026 DC .ROUTE Pantoprazole Sodium 40 MG DAILY 07/31 900 DC 07/31 IV 0959 Rivaroxaban 15 MG DAILY 08/01 900 CAN PO Rivaroxaban 15 MG DAILY 07/31 900 DC PO Scopolamine HBr 1 PAT Q72H 07/31 2300 AC 07/31 TOP 2356 Sodium Chloride 250 ML BOLUS ONE 07/31 2230 DC 07/31 IV 07/31 2326 2243 Last 24 Hrs of Lab/Sridhar Results Last 24 Hrs of Labs/Mics: Laboratory Tests 08/01/18 0500: Sodium Cancelled, Potassium Cancelled, Chloride Cancelled, Carbon Dioxide Cancelled, Anion Gap Cancelled, BUN Cancelled, Creatinine Cancelled, Glucose Cancelled, Calcium Cancelled, Phosphorus Cancelled, Magnesium Cancelled, Total Bilirubin Cancelled, AST Cancelled, ALT Cancelled, Albumin Cancelled, CBC w Diff Cancelled, WBC Cancelled, RBC Cancelled, Hgb Cancelled, Hct Cancelled, MCV Cancelled, MCH Cancelled, MCHC Cancelled, RDW Cancelled, Plt Count Cancelled, MPV Cancelled 07/31/18 1400: Anion Gap 11, Estimated GFR 21 L, Glucose 158 H, Calcium 9.2, Phosphorus 4.2, Magnesium 2.4 H, Total Bilirubin 0.5, AST 13 L, ALT 22, Albumin 3.4 L, CBC w Diff MAN DIFF ORDERED, RBC 2.74 L, MCV 88.9, MCH 27.7, MCHC 31.1 L, RDW 19.0 H, MPV 8.5, Gran % 97.2 H, Lymphocytes % 1.9 L, Monocytes % 0.9 L, Eosinophils % 0, Basophils % 0, Absolute Granulocytes 17.3 H, Segmented Neutrophils 91 H, Band Neutrophils 5, Absolute Lymphocytes 0.3 L, Lymphocytes 2 L, Monocytes 1 L, Absolute Monocytes 0.2, Eosinophils 1, Absolute Eosinophils 0, Absolute Basophils 0, Platelet Estimate VERIFIED BY SMEAR, Polychromasia 1+, Poikilocytosis 1+, Basophilic Stippling 1+, Anisocytosis 1+, Ovalocytes 1+, [place] Cells 1+ 07/31/18 1210: pH 7.17 *L, pCO2 92 *H, pO2 122 H, HCO3 33 H, ABG O2 Sat (Measured) 99.0, Carboxyhemoglobin 1.3 L, O2 Concentration % 50%, Respiration Rate 26, O2 Delivery Method BIPAP, Vent Mode ST, Expiratory Pressure 6, Inspiratory Pressure 26, Phlebotomy Draw Site LEFT RADIAL 07/31/18 1012: pH 7.19 *L, pCO2 86 *H, pO2 72 L, HCO3 32 H, ABG O2 Sat (Measured) 93.0 L, Carboxyhemoglobin 1.0 L, O2 Concentration % 50%, Respiration Rate 26, O2 Delivery Method BIPAP, Vent Mode ST, Expiratory Pressure 6, Inspiratory Pressure 22, Phlebotomy Draw Site LEFT RADIAL Assessment/Plan Assessment: Mr. Vieira is a 68-year-old male with past medical history of COPD on 4-5 L oxygen and nocturnal BiPAP followed by Dr. So, atrial fibrillation and rivaroxaban followed by Dr. Walton, diabetes mellitus, hypertension, hyperlipidemia, AAA status post repair, HFrEF (EF 30-35%), GERD, prostate cancer , and chronic kidney disease who presented last night with altered mental status and recent mechanical fall. The patient was initially admitted to telemetry for altered mental status and EKG changes (ST depressions in V5/V6). Yesterday morning (07/31/18), patient was noted to have increased respiratory distress and respiratory acidosis requiring BiPAP. He was transferred to the ICU for further care. He was placed on bipap but was desaturating, and last night his made him comfort measures. At this time, he is on NRB, with as needed morphine, ativan and scopolamine. He appears more comfortable than yesterday, and his is at bedside. Transfer orders are in to switch patient to general medicine floor with potential for change to hospice service, undergoing hospice eval today. #Comfort measures -Morphine, Ativan, Scopolamine PRN. Will consider adding glycopyrrolate as needed. -Hospice eval today -No lab draws -DC all non-comfort measures -Will d/w supplier quality engineering manager to speak with family as needed Problem List: 1. COPD (chronic obstructive pulmonary disease) 2. Hypoxia 3. Altered mental status Pain Ratin Pain Location: na Pain Goal: Pain 4 or less Pain Plan: comfort measures Tomorrow's Labs & Rationales: na, comfort measures
[2018-08-01 08:00] VITALS: BP 80/40
--- NOTE | 2018-08-01 15:05 | PN- Cardiology ---
Subjective Subjective: Events noted. Patient placed on comfort meaures overnight. He is unresponsive this morning and appears comfortable. Objective Vital Signs and I&Os Vital Signs Date Time Temp Pulse Resp B/P B/P Pulse O2 O2 Flow FiO2 Mean Ox Delivery Rate 08/01 08 96.7 60 16 80/40 99 Nasal 4.0L Cannula 08/01 08 99 Nasal 100% Cannula 08/01 0000 94 Non 100% ReBreather 07/31 2300 96.9 102 12 82/50 94 Non 100% ReBreather 07/31 2227 107 93 07/31 2000 93 BIPAP 40% 07/31 1909 108 96 07/31 1708 119 92 07/31 1700 92 BIPAP 40% 07/31 1600 90 BIPAP 35% 07/31 1600 98.2 117 30 100/70 90 BIPAP 35% Intake & Output 08/01 1600 08/01 0800 08/01 0000 07/31 1600 07/31 0800 07/31 0000 Intake Total 160 865.7 379.8 400 Output Total 0 15 265 300 180 Balance 0 145 600.7 79.8 400 -180 Intake, IV 160 865.7 379.8 400 Intake, Oral 0 Output, Urine 0 15 265 300 180 Patient 155 lb Weight Weight Bed scale Measurement Method Physical Exam General Appearance: comfortable, sedated Respiratory: quiet respiration Abdomen: soft Current Medications: Current Medications Sig/Eve Start time Last Medication Dose Route Stop Time Status Admin Acetaminophen 1,000 MG Q8P PRN 07/31 1400 DC IV Albuterol Sulfate 3 ML EVERY 4 HRS/AWAKE 07/31 1600 AC 07/31 INH 2011 Dextrose/Sodium 1,000 ML Q13H 07/31 1215 DC Chloride IV Diltiazem HCl 125 MG Q16H 07/31 1030 DC 07/31 Sodium Chloride 100 ML IV 1116 Hydromorphone HCl 0 Q2P PRN 07/31 2245 DC IV Insulin Detemir 4 UNITS BID 07/30 2245 DC 07/31 SC 2154 Insulin Human Regular 0 Q6 07/30 2359 DC 07/31 SC 1735 Lorazepam 0 .STK-MED ONE 07/31 230 DC .ROUTE Lorazepam 1 MG Q2 PRN 07/31 2300 AC 08/01 IV 1305 Lorazepam 1 MG Q2P PRN 07/31 2245 DC PO Methylprednisolone 40 MG Q8 09/11 0905 DC 07/31 IV 2154 Morphine Sulfate 2 MG [id number] PRN 07/31 2300 AC 08/01 IV 1305 Morphine Sulfate 2 MG ONCE ONE 07/31 2030 DC 07/31 IV 07/31 Morphine Sulfate 0 .STK-MED ONE 07/31 2027 DC .ROUTE Morphine Sulfate 2 MG ONCE ONE 07/31 1730 DC 07/31 IV 07/31 173 173 Ondansetron HCl 4 MG ONCE ONE 07/31 2030 DC 07/31 IV 07/31 Ondansetron HCl 0 .STK-MED ONE 07/31 2026 DC .ROUTE Pantoprazole Sodium 40 MG DAILY 07/31 0900 DC 07/31 IV 0959 Scopolamine HBr 1 PAT Q72H 07/31 2300 07/31 TOP 2356 Sodium Chloride 250 ML BOLUS ONE 07/31 2230 DC 07/31 IV 07/31 2329 2243 Results Last 48 Hrs of Labs/Mics: Laboratory Tests 08/01/18 0500: Sodium Cancelled, Potassium Cancelled, Chloride Cancelled, Carbon Dioxide Cancelled, Anion Gap Cancelled, BUN Cancelled, Creatinine Cancelled, Glucose Cancelled, Calcium Cancelled, Phosphorus Cancelled, Magnesium Cancelled, Total Bilirubin Cancelled, AST Cancelled, ALT Cancelled, Albumin Cancelled, CBC w Diff Cancelled, WBC Cancelled, RBC Cancelled, Hgb Cancelled, Hct Cancelled, MCV Cancelled, MCH Cancelled, MCHC Cancelled, RDW Cancelled, Plt Count Cancelled, MPV Cancelled 07/31/18 1400: Anion Gap 11, Estimated GFR 21 L, Glucose 158 H, Calcium 9.2, Phosphorus 4.2, Magnesium 2.4 H, Total Bilirubin 0.5, AST 13 L, ALT 22, Albumin 3.4 L, CBC w Diff MAN DIFF ORDERED, RBC 2.74 L, MCV 88.9, MCH 27.7, MCHC 31.1 L, RDW 19.0 H, MPV 8.5, Gran % 97.2 H, Lymphocytes % 1.9 L, Monocytes % 0.9 L, Eosinophils % 0, Basophils % 0, Absolute Granulocytes 17.3 H, Segmented Neutrophils 91 H, Band Neutrophils 5, Absolute Lymphocytes 0.3 L, Lymphocytes 2 L, Monocytes 1 L, Absolute Monocytes 0.2, Eosinophils 1, Absolute Eosinophils 0, Absolute Basophils 0, Platelet Estimate VERIFIED BY SMEAR, Polychromasia 1+, Poikilocytosis 1+, Basophilic Stippling 1+, Anisocytosis 1+, Ovalocytes 1+, [place] Cells 1+ 07/31/18 1210: pH 7.17 *L, pCO2 92 *H, pO2 122 H, HCO3 33 H, ABG O2 Sat (Measured) 99.0, Carboxyhemoglobin 1.3 L, O2 Concentration % 50%, Respiration Rate 26, O2 Delivery Method BIPAP, Vent Mode ST, Expiratory Pressure 6, Inspiratory Pressure 26, Phlebotomy Draw Site LEFT RADIAL 07/31/18 1012: pH 7.19 *L, pCO2 86 *H, pO2 72 L, HCO3 32 H, ABG O2 Sat (Measured) 93.0 L, Carboxyhemoglobin 1.0 L, O2 Concentration % 50%, Respiration Rate 26, O2 Delivery Method BIPAP, Vent Mode ST, Expiratory Pressure 6, Inspiratory Pressure 22, Phlebotomy Draw Site LEFT RADIAL 07/31/18 0628: Anion Gap 11, Estimated GFR 22 L, BUN/Creatinine Ratio 39.3 H, Phosphorus 3.9, Magnesium 2.4 H, Troponin I 0.09, CBC w Diff NO MAN DIFF REQ, RBC 2.62 L, MCV 90.0, MCH 28.7, MCHC 31.8 L, RDW 19.1 H, MPV 8.9, Gran % 86.5 H, Lymphocytes % 8.1 L, Monocytes % 4.9, Eosinophils % 0.5, Basophils % 0, Absolute Granulocytes 10.2 H, Absolute Lymphocytes 1.0 L, Absolute Monocytes 0.6, Absolute Eosinophils 0.1, Absolute Basophils 0 07/31/18 0610: pH 7.24 *L, pCO2 77 *H, pO2 63 L, HCO3 33 H, ABG O2 Sat (Measured) 90.0 L, P- 50 (Temp Corrected) Y, Carboxyhemoglobin 1.5, O2 Concentration % 100%, Temperature 96.5 L, Respiration Rate 20, O2 Delivery Method VISION-FFM, Vent Mode ST, Expiratory Pressure 4, Inspiratory Pressure 16, Phlebotomy Draw Site RIGHT BRACHIAL 07/31/18 0110: pH 7.29 *L, pCO2 73 *H, pO2 63 L, HCO3 35 H, ABG O2 Sat (Measured) 92.0 L, P- 50 (Temp Corrected) Y, Carboxyhemoglobin 1.2 L, O2 Concentration % 6 LPM, Temperature 96.6 L, O2 Delivery Method N/C, Phlebotomy Draw Site RIGHT BRACHIAL 07/31/18 0050: Creatine Kinase < 20 L, Troponin I 0.08 07/30/182203: Urine Color YEL, Urine Clarity CLEAR, Urine pH 6.0, Ur Specific [employer] 1.020, Urine Protein NEG, Urine Ketones NEG, Urine Nitrite NEG, Urine Bilirubin NEG, Urine Urobilinogen 0.2, Ur Leukocyte Esterase NEG, Ur Microscopic EXAM NOT REQUIRED, Urine Hemoglobin NEG, Urine Glucose NEG 07/30/182203: Ur Random Creatinine 43.4, U Random Total Protein 20 H, Ur Random Sodium 7 L, Ur Random Potassium 39.7, Fraction Sodium Excret 0.4 07/30/182149: Lactic Acid Cancelled 07/30/181947: Anion Gap 12, Estimated GFR 20 L, BUN/Creatinine Ratio 37.7 H, Glucose 193 H, Lactic Acid 1.9, Calcium 9.5, Total Bilirubin 0.5, AST 12 L, ALT 21, Alkaline Phosphatase 98, Troponin I 0.08, Mup-V-Easqkuchlkz Pept 46213 H, Total Protein 5.6 L, Albumin 3.4 L, Globulin 2.2, Albumin/Globulin Ratio 1.5, TSH < 0.015 L , Free T4 1.46, PT 10.6, INR 0.97, APTT 25, CBC w Diff NO MAN DIFF REQ, RBC 2.76 L, MCV 85.3, MCH 27.1, MCHC 31.8 L, RDW 19.0 H, MPV 8.2, Gran % 87.3 H, Lymphocytes % 7.3 L, Monocytes % 5.0, Eosinophils % 0.4, Basophils % 0, Absolute Granulocytes 8.3 H, Absolute Lymphocytes 0.7 L, Absolute Monocytes 0.5, Absolute Eosinophils 0, Absolute Basophils 0 Microbiology 07/31 900 UPPER RESP: Surveillance Culture - COMP METH RESIST STAPH AUREUS 07/31 900 GI: Surveillance Culture - COMP VANC RESIST ENTEROCOCCUS 07/30 2115 URINE ROUT: Legionella Antigen - COMP 07/30 2115 URINE ROUT: Streptococcus pneumoniae Antigen (M - COMP Assessment/Plan Assessment/Plan Terminal CHF now on comfort care. Curriculum Consultant will visit with family this afternoon. Continue telemetry? No
--- NOTE | 2018-08-01 16:08 | Event Note ---
Event Note Event Note: Nurse called to evaluate the patient. It was evaluated by me, did not have any peripheral pulses, no heart or lung sounds on auscultation, pupils are bilaterally fixed and dilated. was pronounced at 3:13 PM. is at bedside. Paleology Professor was called. Attending Dr. So was made aware. ME was informed.
--- NOTE | 2018-08-01 16:52 | Discharge Summary ---
Visit Information Visit Dates Admission Date: 07/30/18 Discharge Date: 08/01/18 Hospital Course Course Attending Physician: Mark So MD Primary Care Physician: Prabhakar Pearce MD Hospital Course: Mr. Vieira is a 68-year-old male with past medical history of COPD on 4-5 L oxygen and nocturnal BiPAP followed by Dr. So, atrial fibrillation and rivaroxaban followed by Dr. Walton, diabetes mellitus, hypertension, hyperlipidemia, AAA status post repair, HFrEF (EF 30-35%), GERD, prostate cancer , and chronic kidney disease who presented last night with altered mental status and recent mechanical fall. The patient was initially admitted to telemetry for altered mental status and EKG changes (ST depressions in V5/V6). Yesterday morning (07/31/18), patient was noted to have increased respiratory distress and respiratory acidosis requiring BiPAP. He was transferred to the ICU for further care. He was placed on bipap but was desaturating. Cardiology and Nephrology were consulted. Blood gases showed increasing acidosis and hypercarbia. Last night (07/31/18) he continued to desaturate and his made him comfort measures. He was placed on NRB and BiPAP was discontinued, all medications discontinued except for as needed morphine, ativan and scopolamine. He appeared more comfortable than yesterday, and his was at bedside. Transfer orders were placed to switch patient to general medicine floor private room with potential for change to hospice service. Underwent hospice eval. He was switched to nasal cannula. At 3:13, Nurse called to evaluate the patient. Patient did not have any peripheral pulses, no heart or lung sounds on auscultation, pupils were bilaterally fixed and dilated. was pronounced at 3:13 PM. was at bedside. Telecommunications Line Installer was called. Attending Dr. So was made aware. ME was informed. Allergies: Coded Allergies: No Known Allergies (04/10/18) Disposition Summary Disposition Principal Diagnosis: Acute on Chronic Hypercarbic Respiratory Failure [place] on CKD3 T2DM HTN COPD CHF (ef 30-35%) A Fib on Xarelto BHARATHI HLD GERD AAA s/p endovascular repair MRSA + , VRE + Altered mental status 2/2 hypercarbia Chronic Anemia Additional Diagnosis: as above Discharge Disposition: Discharge Instructions General Discharge Information Code Status: Comfort Care Only Patient's Diet: na Patient's Activity: na Follow-Up Instructions/Appts: na Copies To: Ramses CR,Prabhakar Cherry
== END 2018-08-01 17:05 | disposition expired | DRG 291 ==
LOC: ERH 18:29 → CRI 21:19 → ERHI 21:19 → ENRESERV 22:10 → ENTRNSPT 22:29 → EDTRNSPTSTS 22:30 → EDTRNSPT 22:30 → 1NO 22:42 → CRI 22:42 → CMPTRNSPT 22:43 → CRI 07-31 08:40
PROVIDERS: Internal Medicine; Internal Medicine Adolescent Medicine; Physician Assistant Medical
PROC: 5A09357 Assistance with Respiratory Ventilation, Less than 24 Consecutive Hours, Continuous Positive Airway Pressure (ICD-10-PCS; principal; 2018-07-31)
DX: I13.0 Hypertensive heart and chronic kidney disease with heart failure and stage 1 through stage 4 chronic kidney disease, or unspecified chronic kidney disease (principal); J96.22 Acute and chronic respiratory failure with hypercapnia; J69.0 Pneumonitis due to inhalation of food and vomit; I50.23 Acute on chronic systolic (congestive) heart failure; N17.9 Acute kidney failure, unspecified; E87.2 Acidosis; E11.22 Type 2 diabetes mellitus with diabetic chronic kidney disease; N18.3 Chronic kidney disease, stage 3 (moderate); Z79.4 Long term (current) use of insulin; I48.2 Chronic atrial fibrillation; E78.5 Hyperlipidemia, unspecified; I27.20 Pulmonary hypertension, unspecified; D63.1 Anemia in chronic kidney disease; Z79.82 Long term (current) use of aspirin; Z79.51 Long term (current) use of inhaled steroids; J44.9 Chronic obstructive pulmonary disease, unspecified; Z99.81 Dependence on supplemental oxygen; Z85.46 Personal history of malignant neoplasm of prostate; W06.XXXA Fall from bed, initial encounter; Y92.003 Bedroom of unspecified non-institutional (private) residence as the place of occurrence of the external cause; R94.31 Abnormal electrocardiogram [ECG] [EKG]; Z66 Do not resuscitate
CPT/HCPCS: 1NP; 84133; 84300; CCU; 36415; 36592; 71045; 72170; 76775; 81003; 82436; 82570; 87040; 87070; 87147; 87449; 87450; 93005; 93010; J0131; J1644; J1815; J2405; J2920; J2930; J7040; J7042